=== PATIENT | male | born 1955 | race Caucasian/White ===

== ENCOUNTER 2017-07-09 17:41 | Inpatient (IN) | payer MEDICAID, SELFPAY ==
[2017-07-09] VITALS (8 sets, daily range): BP systolic 111–147; BP diastolic 68–76; PULSE 88–123; RESP 16–22; TEMP 37.7–38.7; O2SAT 94–96; BMI 42.9; BMI 29.4
--- NOTE | 2017-07-09 18:42 | EKG12_ITS ---
Test Reason : SOB Blood Pressure : / mmHG Vent. Rate : 108 BPM Atrial Rate : 108 BPM P-R Int : 168 ms QRS Dur : 096 ms QT Int : 344 ms P-R-T Axes : 056 -11 112 degrees QTc Int : [address]/T wave abnormality: consider myocardial ischemia (memo lateral) Abnormal ECG Confirmed by NEDA FERNANDES, GWENDOLYN ([id number]), graphic editor FERNANDO PASCUAL ([id number]) on 07/15/2017 3:15:39 PM Referred By: VINNY Confirmed By:GWENDOLYN RED MD
--- NOTE | 2017-07-09 18:46 | ED.VISSUMM ---
- ER Visit Summary Date of Service: 07/09/17 Chief Complaint: Fever, cough and left leg redness History of Present Illness: The patient is a 61 M borderline diabetes, hypertension, CAD with CT and cardiac stents. Patient's had bypass surgery. He states since Friday has not felt well with a fever. Cough and shortness of breath. He also notes that he has had left foot and lower leg redness swelling and discomfort. He denies any dysuria. He denies any vomiting or diarrhea. Physical Examination: Older male vital signs are stable he is a fever of 101.6. Heart rate 123 pulse ox 95% room air no signs of hypoxia. He is in no respiratory distress. H EENT exam findings members. Neck nontender no lymphadenopathy. Lungs clear to auscultation bilaterally. Dry cough. No rales or rhonchi. Heart tachycardic no murmur. Rate about 120. Abdomen soft nontender normal bowel sounds no peritoneal signs. He is moving all 4 extremities. The left foot which she has had his left great toe amputated in the past. Is red and swollen as is the entire left lower leg below the knee. Consistent with cellulitis. Tender to touch. Right lower extremity is unremarkable. Neurologically is awake and alert without focal motor deficits. Test Results: CBC shows a white count of 14,000 H&H of 13-41. No bands. Electrolytes show sodium 132 and potassium 3.1. Normal BUN and creatinine and gap. PT/INR normal. Lactic acid is slightly elevated 2.1. EKG sinus tachycardia at 108 with LVH. No acute signs of CT. Chest x-ray portable one view shows no acute abnormality read both by myself and the radiologist. Emergency Department Course and Treatment: Patient has a fever and has left lower extremity cellulitis. He will also be worked up for possible sepsis. Treatment Plan: Fluids, p.o. Tylenol, IV Zosyn for the cellulitis. P exam patient is doing well. I very spoken to the hospitalist and he will be admitted to a general medical floor for cellulitis and sepsis. Disposition: Admission Impression: Acute fever Acute left lower extremity cellulitis Acute sepsis This note was generated with Merlin dictation software. It may contain incorrect words, spelling, and punctuation that were not noted in review of the chart prior to signing ED Disposition - Plan for ED Patient: Chief Complaint: Shortness of Breath Referrals: Clement Buckner MD [Primary Care Provider] -
--- NOTE | 2017-07-09 18:49 | ED.DCSUM_ITS ---
- ER Visit Summary Date of Service: 07/09/17 Chief Complaint: Fever, cough and left leg redness History of Present Illness: The patient is a 61 M borderline diabetes, hypertension, CAD with HI and cardiac stents. Patient's had bypass surgery. He states since Friday has not felt well with a fever. Cough and shortness of breath. He also notes that he has had left foot and lower leg redness swelling and discomfort. He denies any dysuria. He denies any vomiting or diarrhea. Physical Examination: Older male vital signs are stable he is a fever of 101.6. Heart rate 123 pulse ox 95% room air no signs of hypoxia. He is in no respiratory distress. H EENT exam findings members. Neck nontender no lymphadenopathy. Lungs clear to auscultation bilaterally. Dry cough. No rales or rhonchi. Heart tachycardic no murmur. Rate about 120. Abdomen soft nontender normal bowel sounds no peritoneal signs. He is moving all 4 extremities. The left foot which she has had his left great toe amputated in the past. Is red and swollen as is the entire left lower leg below the knee. Consistent with cellulitis. Tender to touch. Right lower extremity is unremarkable. Neurologically is awake and alert without focal motor deficits. Test Results: CBC shows a white count of 14,000 H&H of 13-41. No bands. Electrolytes show sodium 132 and potassium 3.1. Normal BUN and creatinine and gap. PT/INR normal. Lactic acid is slightly elevated 2.1. EKG sinus tachycardia at 108 with LVH. No acute signs of HI. Chest x-ray portable one view shows no acute abnormality read both by myself and the radiologist. Emergency Department Course and Treatment: Patient has a fever and has left lower extremity cellulitis. He will also be worked up for possible sepsis. Treatment Plan: Fluids, p.o. Tylenol, IV Zosyn for the cellulitis. P exam patient is doing well. I very spoken to the hospitalist and he will be admitted to a general medical floor for cellulitis and sepsis. Disposition: Admission Impression: Acute fever Acute left lower extremity cellulitis Acute sepsis This note was generated with [employer] dictation software. It may contain incorrect words, spelling, and punctuation that were not noted in review of the chart prior to signing ED Disposition - Plan for ED Patient: Chief Complaint: Shortness of Breath Referrals: Clement Buckner MD [Primary Care Provider] -
[2017-07-09 19:09] LABS: International Normalized Ratio 1.1; Prothrombin Time (Protime)PT. 13.7 SECONDS (11.7-14.9)
[2017-07-09 19:10] LABS: Partial Thromboplast Time 34.6 Seconds (24.1-36.2)
[2017-07-09 19:14] LABS: Absolute Lymphocyte Count 1.19 X10^3/ul (0.83-4.51); Absolute Neutrophil Count 11.2 X10^3/uL (2.0-7.7); Basophil# 0.03 X10^3/uL; Basophil% 0.2 % (0-1); Eosinophil# 0.02 X10^3/uL; Eosinophils% 0.1 % (0-5); Hematocrit 41.8 % (40-54); Hemoglobin 13.7 g/dl (13.0-16.5); Lymphocyte # 1.19 X10^3/ul (4.0); Lymphocyte % 8.5 % (19-41); Mean Corp Hgb Conc 32.8 g/gl (32-36); Mean Corpuscular Hgb 25.3 pg (27.0-32.0); Mean Corpuscular Volume 77.3 fL (80-94); Monocyte# 1.54 X10^3/uL; Neutrophil # 11.19 X10^3/uL (2.7-7.7); Platelet Count 124 K/mm3 (150-450); RBC Distribution Width CV 17.1 % (11.6-14.6); RBC Distribution Width SD 48.4 fl (35.1-43.9); Red Blood Count 5.41 M/mm3 (4.6-6.2)
[2017-07-09] MEDS: 0.9% Normal Saline 1,000 ML 999 ML IV ×2 (19:14→20:45)
[2017-07-09 19:15] LABS: Differential Indicated SCAN CRITERIA MET; POSITIVE COUNT NO; POSITIVE DIFFERENTIAL YES; POSITIVE MORPHOLOGY YES
[2017-07-09] MEDS: Acetaminophen 500 MG Tablet 1000 MG PO (19:16)
[2017-07-09 19:24] LABS: ALB/GLOB Ratio 0.7 RATIO (0.9-2.4); AST(SGOT) 109 U/L (15-37); Alanine Aminotransfer ALT/SGPT 60 U/L (16-61); Albumin, Serum 2.9 g/dL (3.2-5.0); Alkaline Phosphatase 144 U/L (45-117); Anion Gap 9 (5-15); BUN 12 mg/dL (7-18); BUN/Creat Ratio 9.2 RATIO (10-20); Calcium,Total 8.3 mg/dL (8.5-10.1); Chloride 99 mmol/L (98-107); EST Glomerular Filtration Rate 59 mL/min (>60); Est Glom Filt Rate - Afr Amer 72 mL/min (>60); Estimated Creatinine Clearance 43.58 ml/min; Globulin 4.4 g/dL (2.2-4.2); Glucose 128 mg/dL (74-106); Potassium 3.1 mmol/L (3.5-5.1); Protein, Total 7.3 g/dL (6.4-8.2); Sodium Level 132 mmol/L (136-145)
--- NOTE | 2017-07-09 19:25 | RAD_ITS ---
XR Chest 2 Views INDICATION: SOB x 3 days, nausea 2 days ago, Left lower leg red and swollen, Hx of open heart surgery COMPARISON: February 16, 2012 TECHNIQUE: 2 views of the chest. Findings: Heart size is within normal limits. Sternotomy wires and mediastinal clips are noted. Linear opacities at the left lung base likely represents scarring. There is blunting of the left costophrenic angle, trace effusion cannot be excluded. The lungs appear otherwise clear. There is no evidence of pleural effusion on the right. RAD/Chest PA and Lateral IMPRESSION: Left basilar scarring or trace effusion. Status post CABG surgery. Right lung is clear. at 2009 Reported and signed by: Sheyla Peralta MD Electronically Signed: Sheyla Peralta MD at 20:07 EDT Tel , Service support ,
[2017-07-09 19:26] LABS: Lactic Acid 2.1 mmol/L (0.4-2.0)
--- NOTE | 2017-07-09 19:27 | ED.RN ---
LAB CALLS WITH CRITICAL RESULT, LACTIC ACID 2.1, DR. CASILLAS MADE AWARE.
[2017-07-09 19:37] LABS: Platelet Estimate SLT DEC (ADEQ); Platelet Morphology LARGE
[2017-07-09 19:38] LABS: Differential Comment SCANNED
[2017-07-09 20:21] LABS: Mucous, Urine 0 SEEN /hpf (<or=2+)
[2017-07-09 20:23] LABS: Color, Urine Yellow (Yellow); Glucose, Dipstick Normal (Normal); Ketone-Dipstick 5 mg/dl (Negative); Leukocyte Esterase-Dipstick 25 /ul (Negative); Nitrite-Dipstick Negative (Negative); Occult Blood-Urine 250 /ul (Negative); Protein-Dipstick 100 mg/dl (Negative); Specific Gravity, Urine 1.015 (1.002-1.030); Urine Clarity Sl. Cloudy (Clear); Urine Urobilinogen 8 mg/dl (Normal)
[2017-07-09 20:31] LABS: Urine Bilirubin Dipstick 1 mg/dL (Negative)
[2017-07-09 20:34] LABS: Amorphous Sediment R; Bacteria RARE /hpf (None Seen); Red Blood Cells-Urine 0-5 SEEN /hpf (0-5); Squamous Epithelial Cells - UA 0-5 SEEN /hpf (0-5); White Blood Cells 0-5 SEEN /hpf (0-5)
--- NOTE | 2017-07-09 22:22 | PCM.HP.STD ---
Problem List (1) Nausea and vomiting Status: Acute Qualifiers: Vomiting type: unspecified Vomiting Intractability: non-intractable Qualified Code(s): R11.2 - Nausea with vomiting, unspecified (2) Redness of the left leg and foot Status: Acute History of Present Illness Date of Admission: 07/09/17 Chief Complaint: Nausea, vomiting, redness of the left leg and foot The patient is a 61 year old M was seen in the emergency room at [facility] with chief complaint of nausea, vomiting, and shortness of breath accompanied by redness and swelling of his left lower leg and foot ?24 hours. Patient denied any purulent sputum production, he was positive for cough, and he stated he ran a fever of 98.9 at home today. Patient has peripheral neuropathy and does not actually have any pain in his left foot or left leg. Evaluation in the emergency room included labs which showed an elevated white blood cell count of 14,000, potassium was low at 3.1, creatinine was 1.3, glucose is 128, and temperature was 101.6. Lactic acid was elevated at 2.1. Examination of the left lower leg revealed it to be reddened from the mid left lower leg down into the foot, the foot was also swollen, there was also edema in the left lower leg noted, and there was an ulceration on the first metatarsal area of the left foot approximately the size of a quarter, its depth was unknown, there was no obvious drainage coming from the ulceration. Patient had no feeling to light touch and pain in the lower legs and feet bilaterally. Patient will be admitted to [facility] for severe sepsis, IV Zosyn will be continued (he was given a dose in the emergency room), I contacted his operations controller Dr. Duarte who will see him in consultation. MRI of the left foot will be obtained, wound nurse will need to see the patient. Patient states he was noncompliant with following up with Dr. Duarte as an outpatient, when asked why, patient stated that he felt he could heel his left foot ulcer on his own without any additional help from podiatry. Past Medical History Past Medical History (Chronic Problems): Chronic Problems Hypothyroidism (Chronic) History of hyperlipidemia (Chronic) History of gastroesophageal reflux (GERD) (Chronic) Deep venous thrombosis of upper extremity (Chronic) CAD (coronary artery disease) (Chronic) Benign essential hypertension (Chronic) Allergies colesevelam HCl [From WelChol] Allergy (Verified 07/09/17 17:43) Rash dicyclomine Allergy (Verified 07/09/17 17:43) Rash divalproex sodium [From Depakote] Allergy (Verified 07/09/17 17:43) Unknown rofecoxib [From Vioxx] Allergy (Verified 07/09/17 17:43) Rash Home Medications: Ambulatory Orders Medication Instructions Recorded Fluticasone 0.05% [Flonase Nasal 2 spray NASAL DAILY PRN 09/01/13 [place]] Folic Acid [Folic Acid] 1 mg PO BID 09/01/13 Gabapentin [Gabapentin] 900 mg PO TID 09/01/13 Levothyroxine [Synthroid] 75 mcg PO DAILY 09/01/13 Metoprolol Tartrate [Metoprolol 25 mg PO BID 09/01/13 Tartrate] Omeprazole [Omeprazole] 20 mg PO BID 09/01/13 Rosuvastatin Calcium [Crestor] 40 mg PO QHS 09/01/13 Temazepam [Temazepam] 15 mg PO PRN PRN 09/01/13 Aspirin 325 mg PO DAILY@0800 07/09/17 Baclofen [Lioresal] 1 tab PO BID PRN 07/09/17 Clopidogrel Bisulfate [Plavix] 75 mg PO DAILY 07/09/17 Surgical History: coronary bypass surgery, - - Coronary artery stent placement April 2017, amputation of the left great toe Psychiatric History: No pertinent psych hx Lives: Alone Smoking Status: Current every day smoker Tobacco Use: Cigarettes Alcohol: None Drugs: None - *Family History Maternal History Items: Diabetes Paternal History Items: Cancer - Lung cancer Review of Systems Constitutional: Reports: Fever. Denies: Anorexia, Night Sweats, Malaise, Weakness, Weight Change, Fatigue Eyes: Denies: Blurred vision, Cataracts, Conjunctivae Inflammation, Double vision, Drainage HEENT: Denies: Difficulty Hearing, Difficulty Swallowing, Dysphasia, Ear Pain, Eye Pain, Head Aches, Hearing Changes, Nasal bleeding, Nasal Congestion Cardiovascular: Reports: Edema - Edema in the left lower leg and foot ?24 hours. Denies: Chest Pain, Claudication, Chest Pressure, Chest Tightness, Orthopnea, Palpitations, Paroxysmal Noc. Dyspnea Respiratory: Reports: Shortness of Breath, Shortness of breath upon exertion. Denies: Cough, Hemoptysis, Pleuritic Pain, Sputum production Gastrointestinal: Reports: Nausea, Vomiting. Denies: Abdominal Pain, Constipation, Diarrhea, Hematemesis, Hematochezia Genitourinary: Denies: Dysuria, Frequency, Hematuria, Incontinence, Nocturia, Retention Musculoskeletal: Denies: Back Pain, Foot Pain, Hand Pain, Joint stiffness, Joint swelling, Joint Tenderness, Leg Pain Skin: Reports: Wounds - complains of a wound over the plantar surface of his left foot ?4 months. Denies: Jaundice, Pruritis, Rash Neurological: Denies: Balance problems, Blurred vision, Double vision, Change in Speech, Slurred speech, Difficulty swallowing, Focal weakness, Headaches, Incoordination Psychiatric: Denies: Anxiety, Depression, Homicidal Ideations, Suicidal Ideations Endocrine: Denies: Change in Body Habitus, Heat/ Cold Intolerance, Polyuria, Hx of Irradiation Hematologic/ Lymphatic: Denies: Adenopathy, Anemia, Petechiae, Purpura VTE Information - Inpt Only VTE Present on Admission: No VTE Mechan Device Prophylaxis: None VTE Pharm Prophylaxis ordered?: Yes Patient Problems: Active and Suspected Problems Nausea and vomiting (Acute) Redness of the left leg and foot (Acute) - Physical Exam General: Alert, Oriented x3, Cooperative, No apparent distress, Well developed, Well nourished HEENT: Atraumatic, PERRLA, EOMI, Normocephalic Oral: Moist Mucosa Neck: Supple, No JVD, Negative Carotid Bruits, No Nuchal Rigidity, Trachea Midline, Thyroid Normal Size and Texture Lungs: Clear to auscultation, Normal air movement, No rhonchi, No wheeze, No rales Cardiovascular: Regular rate, Regular Rhythm, Normal S1, Normal S2, No murmurs, No Ectopic Activity, PMI Normal, No rub noted, No Gallop Abdomen: Bowel Sounds Present, Soft, Non Tender, Non-Distended, No hernias noted Extremities: No clubbing, Capillary Refill Less than 3 Seconds, Edema - There is generalized edema of the left lower leg noted along with edema of the left foot Skin: Ulcer/ Wound - There is an open area on the patient's first metatarsal joint area approximately 2-3 cm in width, depth of the wound is unknown, Rash Present - There is redness over the patient's left lower leg and foot Neurological: Cranial nerves II-XII grossly intact, Neuro grossly intact, Coordination normal, - - Sensory exam of the lower legs and feet are decreased to light touch and pain Psych/Mental Status: Normal Affect, Appropriate, Alert and oriented to time, place, person, mood and affect Vital Signs Temp Pulse Resp BP Pulse Ox 100 F H 91 22 H 111/71 95 07/09/17 20:59 07/09/17 21:30 07/09/17 21:30 07/09/17 21:30 07/09/17 21:30 Oxygen Delivery Method Room Air Weight: 101.1 kg Body Mass Index (BMI) 29.4 Assessment/Plan Active and Suspected Problems Nausea and vomiting (Acute) Redness of the left leg and foot (Acute) #1 severe sepsis secondary to left lower leg and foot cellulitis-suspect gram-positive bacterial infection or mixed infection with gram-positive bacteria and anaerobes, patient will be admitted to [facility], he will remain on IV Zosyn, he will be seen in consultation by podiatry, he will have an MRI of his left foot, lactic acid will be repeated #2 cellulitis of the left lower leg and foot-treatment as above #3 hypokalemia-potassium replacement will be given, labs will be rechecked #4 noncompliance with medical regimen #5 peripheral neuropathy exact etiology unclear, patient does not appear to be diabetic #6 coronary artery disease with recent stent placement #7 hypertension #8 probable peripheral vascular disease - workup per podiatry #9 hyperlipidemia #10 hypothyroidism Code Visit Inpatient E&M: 21163 Init Hosp L3
[2017-07-09 22:55] LABS: Reflex Lactate? Y
[2017-07-09] MEDS: 0.9% Normal Saline 1,000 ML 100 ML IV (23:27)
[2017-07-09] MEDS: Heparin Injection (Vial) 5,000 UNIT/ML VIAL 5000 UNIT SC (23:32)
[2017-07-09] MEDS: Metoprolol Tartrate 25 MG Tablet PO (23:32)
[2017-07-09] MEDS: Atorvastatin Calcium 80 MG Tablet PO (23:32)
[2017-07-09] MEDS: Temazepam 15 MG Capsule PO (23:32)
[2017-07-09] MEDS: Gabapentin 800 MG Tablet PO (23:53)
[2017-07-10] MEDS: Piperacil/Tazobactam 3.375 GM/50 ML ML IV ×3 (05:46→21:54)
[2017-07-10] MEDS: Levothyroxine 75 MCG Tablet PO (05:46)
[2017-07-10] MEDS: Heparin Injection (Vial) 5,000 UNIT/ML VIAL 5000 UNIT SC ×3 (05:46→21:54)
[2017-07-10 05:50] VITALS: BP 128/65; PULSE 95; RESP 18; TEMP 37.8; O2SAT 95
--- NOTE | 2017-07-10 05:55 | MRI_ITS ---
STUDY: MRI LEFT FOREFOOT WITHOUT CONTRAST REASON FOR EXAM: Redness and swelling with ulcer at the first metatarsal. TECHNIQUE: Standardized fat and water weighted pulse sequences were obtained in all 3 orthogonal planes. COMPARISON: Radiographs 08/17/2014. FINDINGS: There is amputation of the great toe. There is no bone edema of the first metatarsal or sesamoids to indicate osteomyelitis. There is a focal fluid collection at the plantar/distal aspect of the first metatarsal head deep to the skin ulcer (inversion recovery sagittal images 5-9; T2 coronal series 5 images 5-7) measuring 1.9 x 2.3 x 3.0 cm (AP x transverse x length), likely an abscess. There is edema in the subcutis adipose space of the forefoot and midfoot. There is no bone edema of the second through fifth metatarsals or phalanges to indicate osteomyelitis There is atrophy with fat replacement of the intrinsic muscles of the forefoot (T1 sagittal images 10-25) consistent with peripheral neuropathy. MRI/Lower Ext/No Jt/w/o IMPRESSION: Focal fluid collection deep to the skin ulcer adjacent to the first metatarsal head, likely an abscess. No demonstrated osteomyelitis. Electronically Signed: Jose Francisco Chang MD at 10:49 EDT Tel , Service support ,
[2017-07-10 06:54] LABS: Absolute Neutrophil Count 8.2 X10^3/uL (2.0-7.7); Basophil# 0.02 X10^3/uL; Basophil% 0.2 % (0-1); Eosinophil# 0.06 X10^3/uL; Eosinophils% 0.5 % (0-5); Hematocrit 36.9 % (40-54); Hemoglobin 12.1 g/dl (13.0-16.5); Lymphocyte % 13.6 % (19-41); Mean Corp Hgb Conc 32.8 g/gl (32-36); Mean Corpuscular Hgb 25.3 pg (27.0-32.0); Mean Corpuscular Volume 77.2 fL (80-94); Mean Platelet Vol. 11.4 fl (6.2-12.0); Monocyte# 1.19 X10^3/uL; Monocyte% 10.8 % (0-10); Neutrophil # 8.22 X10^3/uL (2.7-7.7); Neutrophil % 74.7 % (47-70); Platelet Count 125 K/mm3 (150-450); RBC Distribution Width CV 17.3 % (11.6-14.6); Red Blood Count 4.78 M/mm3 (4.6-6.2)
[2017-07-10 06:55] LABS: Anion Gap 9 (5-15); BUN 9 mg/dL (7-18); BUN/Creat Ratio 8.4 RATIO (10-20); Calcium,Total 7.3 mg/dL (8.5-10.1); Chloride 107 mmol/L (98-107); Creatinine, Serum 1.07 mg/dL (0.70-1.30); EST Glomerular Filtration Rate 74 mL/min (>60); Est Glom Filt Rate - Afr Amer 90 mL/min (>60); Glucose 139 mg/dL (74-106); Potassium 3.1 mmol/L (3.5-5.1); Sodium Level 138 mmol/L (136-145)
[2017-07-10 06:57] LABS: Differential Indicated SCAN CRITERIA MET; POSITIVE COUNT NO; POSITIVE DIFFERENTIAL NO; POSITIVE MORPHOLOGY YES
[2017-07-10 07:06] LABS: Differential Comment SCANNED
[2017-07-10 07:50] VITALS: BP 124/71; PULSE 93; RESP 16; TEMP 37.7; O2SAT 95
--- NOTE | 2017-07-10 07:52 | PN_ITS ---
Patient Problems: Active and Suspected Problems Nausea and vomiting (Acute) Redness of the left leg and foot (Acute) Subjective: Patient is a 61-year-old male with a past medical history of hypothyroidism, hyperlipidemia, gastroesophageal reflux disease, deep vein thrombosis of the upper extremity, coronary artery disease with history of coronary stent placement in April 2017 and CABG, amputation of the left great toe, tobacco dependence, peripheral neuropathy and hypertension who presented to the emergency room at [facility] on 07/09/2017 complaining of nausea/ vomiting, shortness of breath and redness/swelling of his left lower leg for approximately 24 hours. Vital signs at presentation to the emergency room were temperature 101.6, pulse rate 123, blood pressure 147/76, respiratory rate of 20 and he was 95% saturated on room air. White blood cell count was elevated at 14.0 with left shift. Hemoglobin was 13.7 with an MCV of 77.3 and platelet count of 124,000. Sodium was low at 132 and the potassium was low at 3.1. BUN was 12 with a creatinine of 1.3. Random blood sugar was elevated at 128 and the lactic acid was 2.1. Follow-up lactic acid was 1.0 following hydration. AST is elevated at 109 and the ALT is 60. Alkaline phosphatase is elevated at 144. UA showed proteinuria and no evidence of urinary tract infection. Chest x -ray shows blunting of the left costophrenic angle which may be chronic secondary to prior CABG. On physical examination the left lower extremity was reddened from the leg down into the foot. There was swelling and an ulceration of the first metatarsal area of the left foot. He was admitted to the hospital with a diagnosis of severe sepsis secondary to cellulitis of the left lower extremity. He was started on IV Zosyn and Dr. Duarte was consulted to evaluate the foot ulcer. Noninvasive vascular studies done in 2015 showed triphasic waveforms except for the left dorsalis pedis that was biphasic. ROB in the digits was decreased at 0.89 on the right and 0.83 on the left. MRI of the foot has been ordered today. No plain XRAYS were done. There is a FH of DM. sodium and potassium are low at admission and he is not on a diuretic. He has been having polydipsia and polyuria recently. He attributes the numbness in his feet to the harvesting of the Vein in the LLE for CABG in 1993. He also states that he has neuropathy in his hands. PTCA in April 2017 was done at the [facility]. The ulceration on the plantar surface of the left foot over the distal first metatarsal head has been present for 4-5 months. - Physical Exam General: Alert, Oriented x3, Cooperative, No apparent distress, Well developed, Well nourished HEENT: Atraumatic, PERRLA, EOMI Oral: No Gingival or Mucosal Lesions/ Ulcerations, Dry Mucosa Neck: No Nodes, Trachea Midline Lungs: Clear to auscultation Cardiovascular: Regular rate, Regular Rhythm, Normal S1, Normal S2, No murmurs, No rub noted, No Gallop Abdomen: Bowel Sounds Present, Soft, Non Tender, Non-Distended, - - No abdominal bruits Extremities: No clubbing, No cyanosis, Capillary Refill Less than 3 Seconds, Edema - Of the LLE from the mid boyce area distally. There is erythema and increased Warmth to touch. There is a ulceration on the plantar surface of the left foot over the distal metatarsal head with heavy periwound callous formation. the great toe has been amputated. The base of the wound is dry and there is no odor and no significant DC., - Skin: No rashes, Ulcer/ Wound - Plantar surface of the left foot over the distal first metatarsal head surrounded by a large amount of callus. Wound base is dry. There is no odor and there is scant discharge. There is erythema involving the entire left foot and extending up the anterior tibial compartment in a patchy distribution. There is increased warmth to touch. He has very little sensation in his left lower extremity. Musculoskeletal: No Muscle Wasting Neurological: Cranial nerves II-XII grossly intact, - - Peripheral neuropathy in the arms and the legs - etiology? Psych/Mental Status: Normal Affect, Appropriate Vital Signs Temp Pulse Resp BP Pulse Ox 100.1 F H 95 18 128/65 H 95 07/10/17 05:50 07/10/17 05:50 07/10/17 05:50 07/10/17 05:50 07/10/17 05:50 Oxygen Delivery Method Room Air Weight: 222 lb 14.197 oz Body Mass Index (BMI) 29.4 Intake and Output for Last 24 Hours 07/08/17 07/09/17 07/10/17 23:59 23:59 23:59 Intake Total 411 / 411 845 / 845 Output Total 700 / 700 750 / 750 Balance -289 / -289 95 / 95 Laboratory Tests Past 24 Hrs 07/09/17 07/10/17 07/10/17 22:13 06:20 06:20 WBC 11.0 RBC 4.78 Hgb 12.1 L Hct 36.9 L MCV 77.2 L MCH 25.3 L MCHC 32.8 RDW 17.3 H RDW Differential 49.0 H Plt Count 125 L MPV 11.4 Immature Gran % (Auto) 0.200 Neut % (Auto) 74.7 H Lymph % (Auto) 13.6 L Hawkins % (Auto) 10.8 H Eos % (Auto) 0.5 Baso % (Auto) 0.2 Absolute Neuts (auto) 8.2 H Absolute Lymphs (auto) 1.50 Total Counted Not Reportable Differential Comment SCANNED Sodium 138 Potassium 3.1 L Chloride 107 Carbon Dioxide 22.0 Anion Gap 9 BUN 9 Creatinine 1.07 Estim Creat Clear Calc 80.90 Est GFR (MDRD) Af Amer 90 Est GFR (MDRD) Non-Af 74 BUN/Creatinine Ratio 8.4 L Glucose 139 H Lactic Acid 1.0 Calcium 7.3 L Medical Necessity - Tobacco Use Smoking Status: Current every day smoker Tobacco Use: Cigarettes Assessment/Plan Active and Suspected Problems Nausea and vomiting (Acute) Redness of the left leg and foot (Acute) Impressions 1. Infected non-healing wound on the plantar surface of the Left foot over the distal first metatarsal head - severe sepsis ruled out. 2. cellulitis of the left foot and left lower extremity 3. dehydration with polyuria, polydipsia and a FH of DM. Suspect DM 4. CAD with hx of CABG X 2 in 1993 and PTCA in April 2017 at [facility] 5. Tobacco dependence 6. Peripheral neuropathy-etiology? 7. Hyperlipidemia 8. Hypothyroidism 9. Hypertension 10. Hyponatremia with hypokalemia 11. Noncompliance with follow-up with podiatry 12. Status post left great toe amputation continue Zosyn Wound culture obtained today Await the results of the MRI ordered for today. Check a HGBA1C and order accuchecks AC and HS check a lipid panel Smoking cessation advised Dr. Duarte on consult May need to repeat ROB's of the LE's since the last test was 2 years ago supplement the potassium and check a MAG and Phos. Code Visit Inpatient E&M: 20172 Subs Hosp L2
[2017-07-10] MEDS: Acetaminophen 325 MG Tablet 650 MG PO ×2 (07:53→14:20)
[2017-07-10] MEDS: Gabapentin 800 MG Tablet PO ×2 (07:54→16:46)
[2017-07-10] MEDS: Folic Acid 1 MG Tablet PO (07:54)
[2017-07-10 08:20] LABS: Bedside Glucose 147 mg/dL (70-110)
--- NOTE | 2017-07-10 08:30 | NURSING ---
wound photo: left foot
[2017-07-10 08:40] LABS: Cholesterol 67 mg/dL (200); High Density Lipoprotein 30 mg/dL; Magnesium 2.2 mg/dL (1.6-2.6); Phosphorus 1.5 mg/dL (2.5-4.9); Triglycerides 127 mg/dL; Very Low Density Lipoprotein 25 mg/dL (5-40)
[2017-07-10 08:50] LABS: Erythrocyte Sedimentation Rate 45 mm/hr (0-20)
[2017-07-10 09:11] LABS: Hemoglobin A1c 6.7 % (4.2-6.3)
[2017-07-10 10:47] LABS: M R Staph aureus DNA By PCR Negative (Negative); Probe Check PASS; Specimen Processing Control PASS; Staph aureus DNA By PCR NEGATIVE (Negative)
[2017-07-10 10:50] VITALS: BP 111/67; PULSE 94; RESP 16; TEMP 37.4; O2SAT 92
[2017-07-10] MEDS: Pantoprazole Sodium 40 MG Tablet PO (10:50)
[2017-07-10] MEDS: Metoprolol Tartrate 25 MG Tablet PO ×2 (10:50→21:54)
[2017-07-10] MEDS: 0.9% Normal Saline 1,000 ML 100 ML IV (10:52)
[2017-07-10] MEDS: Clopidogrel Bisulfate 75 MG Tablet PO (12:38)
[2017-07-10 12:45] LABS: Bedside Glucose 147 mg/dL (70-110)
--- NOTE | 2017-07-10 12:45 | CON.PCM_ITS ---
Problem List (1) Type 2 diabetes mellitus with foot ulcer Status: Acute (2) Type 2 diabetes mellitus with foot ulcer Status: Acute Reason for Consult Date of Consultation: 07/10/17 Reason for Consultation: ulcer of left foot History of Present Illness: The patient is a 61 year old M with past medical history significant for diabetes. He was last seen by me last june 2016 for diabetic foot care. He has not seen me since. apparently, about 4 months ago, he developed blister to b/l feet. he states blister developed because he was dropped off and had to walk 3 miles. he states the blister of right foot healed but the blister of left foot became larger and failed to show any progress. He did not seek any medical attention and tried to heal this himself. he states that over the past few days, he has been feeling more redness to his left leg. he presented to hospital and was subsequently admitted to hospital. he was placed on antibiotics. He has had mri performed today. He denies any pain. he denies any n/v/f/c. He has no other complaints. Patient was seen by me last June at which time all wounds were healed. Past Medical History Past Medical History (Chronic Problems): Chronic Problems Hypothyroidism (Chronic) History of hyperlipidemia (Chronic) History of gastroesophageal reflux (GERD) (Chronic) Deep venous thrombosis of upper extremity (Chronic) CAD (coronary artery disease) (Chronic) Benign essential hypertension (Chronic) Allergies colesevelam HCl [From WelChol] Allergy (Verified 07/09/17 17:43) Rash dicyclomine Allergy (Verified 07/09/17 17:43) Rash divalproex sodium [From Depakote] Allergy (Verified 07/09/17 17:43) Unknown rofecoxib [From Vioxx] Allergy (Verified 07/09/17 17:43) Rash Home Medications: Ambulatory Orders Medication Instructions Recorded Fluticasone 0.05% [Flonase Nasal 2 spray NASAL DAILY PRN 09/01/13 [place]] Folic Acid [Folic Acid] 1 mg PO BID 09/01/13 Gabapentin [Gabapentin] 900 mg PO TID 09/01/13 Levothyroxine [Synthroid] 75 mcg PO DAILY 09/01/13 Metoprolol Tartrate [Metoprolol 25 mg PO BID 09/01/13 Tartrate] Omeprazole [Omeprazole] 20 mg PO BID 09/01/13 Rosuvastatin Calcium [Crestor] 40 mg PO QHS 09/01/13 Temazepam [Temazepam] 15 mg PO PRN PRN 09/01/13 Aspirin 325 mg PO DAILY@0800 07/09/17 Baclofen [Lioresal] 1 tab PO BID PRN 07/09/17 Clopidogrel Bisulfate [Plavix] 75 mg PO DAILY 07/09/17 Surgical History: coronary bypass surgery, - - Coronary artery stent placement April 2017, amputation of the left great toe Psychiatric History: No pertinent psych hx Lives: Alone Smoking Status: Current every day smoker Tobacco Use: Cigarettes Alcohol: None Drugs: None - *Family History Maternal History Items: Diabetes Paternal History Items: Cancer - Lung cancer Patient Problems: Active and Suspected Problems Nausea and vomiting (Acute) Redness of the left leg and foot (Acute) Type 2 diabetes mellitus with foot ulcer (Acute) Type 2 diabetes mellitus with foot ulcer (Acute) Objective: Patient is alert and orientated x 3. He does not appear in any distress vascular: DP and PT pulses are nonpalpable to left lower extremity and faintly palpable to right lower extremity. skin temperature is warm to cool. hair growth is decreased to b/l feet. there is redness outlined to left leg and appears to be improving. derm: there is full thickness ulceration plantar to left 1st metatarsal head. it measures 0.8 cm width by 1.1 cm length by 1.0 cm depth. there is no drainage expressed on clinical exam. there is no redness of foot and there is resolving redness to left leg. there is probing approximately 1.0 cm but no probe to bone. no wounds present to right foot m/s: there is amputation of left hallux mri: MRI reviewed. there is no marrow edema to suggest osteomyelitis. there is concern for possible fluid collection of left plantar ulceration concerning for abscess - Physical Exam Vital Signs Temp Pulse Resp BP Pulse Ox 99.8 F H 94 16 124/71 H 95 07/10/17 07:50 07/10/17 10:50 07/10/17 07:50 07/10/17 07:50 07/10/17 07:50 Oxygen Delivery Method Room Air Weight: 101.1 kg Body Mass Index (BMI) 29.4 Intake and Output for Last 24 Hours 07/08/17 07/09/17 07/10/17 23:59 23:59 23:59 Intake Total 411 / 411 845 / 845 Output Total 700 / 700 750 / 750 Balance -289 / -289 95 / 95 Laboratory Tests Past 24 Hrs 07/09/17 07/10/17 07/10/17 22:13 06:20 06:20 WBC 11.0 RBC 4.78 Hgb 12.1 L Hct 36.9 L MCV 77.2 L MCH 25.3 L MCHC 32.8 RDW 17.3 H RDW Differential 49.0 H Plt Count 125 L MPV 11.4 Immature Gran % (Auto) 0.200 Neut % (Auto) 74.7 H Lymph % (Auto) 13.6 L [place] % (Auto) 10.8 H Eos % (Auto) 0.5 Baso % (Auto) 0.2 Absolute Neuts (auto) 8.2 H Absolute Lymphs (auto) 1.50 Total Counted Not Reportable Differential Comment SCANNED ESR Sodium 138 Potassium 3.1 L Chloride 107 Carbon Dioxide 22.0 Anion Gap 9 BUN 9 Creatinine 1.07 Estim Creat Clear Calc 80.90 Est GFR (MDRD) Af Amer 90 Est GFR (MDRD) Non-Af 74 BUN/Creatinine Ratio 8.4 L Glucose 139 H Hemoglobin A1c Lactic Acid 1.0 Calcium 7.3 L Phosphorus Magnesium C-React Prot Ext Range Triglycerides Cholesterol LDL Cholesterol VLDL Cholesterol HDL Cholesterol S.aureus Protein A PCR MRSA (PCR) 07/10/17 07/10/17 07/10/17 06:20 06:20 06:20 WBC RBC Hgb Hct MCV MCH MCHC RDW RDW Differential Plt Count MPV Immature Gran % (Auto) Neut % (Auto) Lymph % (Auto) [place] % (Auto) Eos % (Auto) Baso % (Auto) Absolute Neuts (auto) Absolute Lymphs (auto) Total Counted Differential Comment ESR 45 H Sodium Potassium Chloride Carbon Dioxide Anion Gap BUN Creatinine Estim Creat Clear Calc Est GFR (MDRD) Af Amer Est GFR (MDRD) Non-Af BUN/Creatinine Ratio Glucose Hemoglobin A1c 6.7 H Lactic Acid Calcium Phosphorus 1.5 L Magnesium 2.2 C-React Prot Ext Range 118.00 H Triglycerides 127 Cholesterol 67 LDL Cholesterol 12 VLDL Cholesterol 25 HDL Cholesterol 30 L S.aureus Protein A PCR MRSA (PCR) 07/10/17 08:10 WBC RBC Hgb Hct MCV MCH MCHC RDW RDW Differential Plt Count MPV Immature Gran % (Auto) Neut % (Auto) Lymph % (Auto) [place] % (Auto) Eos % (Auto) Baso % (Auto) Absolute Neuts (auto) Absolute Lymphs (auto) Total Counted Differential Comment ESR Sodium Potassium Chloride Carbon Dioxide Anion Gap BUN Creatinine Estim Creat Clear Calc Est GFR (MDRD) Af Amer Est GFR (MDRD) Non-Af BUN/Creatinine Ratio Glucose Hemoglobin A1c Lactic Acid Calcium Phosphorus Magnesium C-React Prot Ext Range Triglycerides Cholesterol LDL Cholesterol VLDL Cholesterol HDL Cholesterol S.aureus Protein A PCR NEGATIVE MRSA (PCR) Negative POC Glucose 07/10/17 08:16 POC Glucose 147 H Assessment/Plan Active and Suspected Problems Nausea and vomiting (Acute) Redness of the left leg and foot (Acute) Type 2 diabetes mellitus with foot ulcer (Acute) Type 2 diabetes mellitus with foot ulcer (Acute) Patient was examined and informed of current findings. ON exam, he has full thickness ulceration of left foot. Ulceration is approximately 0.8 cm x 1.1 cm x 1.0 cm depth. there is component of cellulitis that appears to be improving with antibiotic. MRI shows no osteomyelitis but concerning for abscess. Of note, patient did have mri with retained packing so findings of possible abscess vs retained packing. discussed treating as abscess and performing I&D vs repeating mri. patient wishes to repeat mri I did inform patient that if abscess present, will need I&D. I did discuss performing I&D and bone biopsy vs performing metatarsal head resection and closure of ulceration. If I&D performed only, I do not see it possible that ulceration will be able to be closed, will likely require offloading and advanced wound care. Patient not keen on further bone resection if this can be avoided. his pulses are nonpalpable to left foot. he appears stable on antibiotic. recommend repeat mri stat for further evaluation and also recommend stat pvr. further decision pending additional studies
--- NOTE | 2017-07-10 12:56 | MRI_ITS ---
STUDY: MRI LEFT FOREFOOT WITHOUT CONTRAST REASON FOR EXAM: Evaluate for abscess after removal of packing in the wound. TECHNIQUE: Standardized fat and water weighted pulse sequences were obtained in all 3 orthogonal planes. COMPARISON: None. FINDINGS: Since the prior study earlier today there is been removal of the packing material. There is still persists a focal fluid collection with septations and peripheral wall (T2 coronal series 5 images 7-11; inversion recovery sagittal images 5-9) deep to the skin ulcer at the plantar aspect of the distal first metatarsal most consistent with an abscess. The size of the fluid collection is unchanged. MRI/Lower Ext/No Jt/w/o IMPRESSION: Persistent focal fluid collection deep to the skin ulcer at the distal aspect of the first metatarsal most suggestive of an abscess. Electronically Signed: Jose Francisco Chang MD at 14:58 EDT Tel , Service support ,
--- NOTE | 2017-07-10 13:15 | CASEMGMT ---
Social Work Assessment Personal Status: SW met with pt to complete initial assessment and to discuss discharge planning. SW introduced self and role at [facility]. Pt is alert and orientated x4. Pt states that before coming into the hospital he was living alone in a 3 story home. Pt states that he has steps to enter his home but reports being independent and able to use the steps independently. Pt states that before coming into the hospital he was independent with ADLs. Pt denied having any friends or family for support around him. Pt denied DME at home. Pt states that his PCP is Greg Simon and his preferred pharmacy is [facility]. Pt states that his plan is to return home at discharge. Pt denied additional needs or concerns at this time. 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
[2017-07-10] MEDS: 0.9% NaCl Peripheral Flush Adult/Peds IV (14:21)
[2017-07-10 16:45] VITALS: BP 129/69; PULSE 87; RESP 16; TEMP 37.6; O2SAT 96
[2017-07-10 16:55] LABS: Bedside Glucose 170 mg/dL (70-110)
[2017-07-10 21:51] VITALS: BP 128/60; PULSE 88; RESP 18; TEMP 37.3; O2SAT 94
[2017-07-10 21:54] VITALS: PULSE 88
[2017-07-10] MEDS: Temazepam 15 MG Capsule PO (21:54)
[2017-07-10] MEDS: Atorvastatin Calcium 80 MG Tablet PO (21:59)
[2017-07-10 22:11] LABS: Bedside Glucose 137 mg/dL (70-110)
[2017-07-11] VITALS (14 sets, daily range): BP systolic 103–137; BP diastolic 59–71; PULSE 18–93; RESP 18; TEMP 36.4–38; O2SAT 93–95; BMI 29.4
[2017-07-11] MEDS: 0.9% Normal Saline 1,000 ML 100 ML IV ×3 (00:08→22:49)
[2017-07-11] MEDS: Gabapentin 800 MG Tablet PO ×3 (00:11→18:15)
[2017-07-11] MEDS: Acetaminophen 325 MG Tablet 650 MG PO ×2 (03:56→22:52)
--- NOTE | 2017-07-11 05:30 | LEAS ---
Arterial Study - Arterial Study Arterial Study: Bilateral noninvasive lower extremity arterial exam at rest Right lower extremity Right PT and DP ankle-brachial indices at rest are 1.471.31 respectively with a digital index of 0.63. The right posterior tibial and dorsalis pedis Doppler waveforms are triphasic and normal. Left lower extremity. The left PT and DP ankle-brachial indices at rest are 1.2 and 1 respectively. The left posterior tibial and dorsalis pedis Doppler waveforms are triphasic. Impression: Normal bilateral lower extremity ABIs at rest. Daniel Meredith M.D., F.A.C.S.
[2017-07-11] MEDS: Piperacil/Tazobactam 3.375 GM/50 ML ML IV ×3 (06:06→22:52)
[2017-07-11] MEDS: Levothyroxine 75 MCG Tablet PO (06:06)
--- NOTE | 2017-07-11 06:39 | PCM.PROGNOTE ---
Patient Problems: Active and Suspected Problems Nausea and vomiting (Acute) Redness of the left leg and foot (Acute) Type 2 diabetes mellitus with foot ulcer (Acute) Type 2 diabetes mellitus with foot ulcer (Acute) Subjective: Day #2 Zosyn and vancomycin T-max is 100.4?F. Vital signs are stable. Blood sugars are all less than 200. All lab was personally reviewed. The hemoglobin A1c is elevated at 6.7. ESR was 45 and the CRP is 118. ABIs of the lower extremities were normal at rest. MRI of the left foot showed an abscess deep to the skin ulcer at the distal aspect of the first metatarsal. He is scheduled for surgery with Dr. Duarte today. PCR is negative for staph aureus and for MRSA. Wound culture is pending and the Gram stain shows 2+ gram-positive rods with no cells. - Physical Exam General: Alert, Cooperative, - - not very interactive...answers mostly with 1 word answers HEENT: Atraumatic Oral: Moist Mucosa Lungs: Clear to auscultation, Diminished Cardiovascular: Regular rate, Regular Rhythm, Normal S1, Normal S2, No Gallop Abdomen: Bowel Sounds Present, Soft, Non Tender, Non-Distended Extremities: No clubbing, No Calf Tenderness, Edema - LLE......did not look at the wound...he is scheduled for surgery this afternoon with Dr. Duarte. Skin: No rashes, - - the erythema of the LLE has not spread outside the border marked at admission. NOt as warm to touch today Psych/Mental Status: Appropriate, Flat Affect Vital Signs Temp Pulse Resp BP Pulse Ox 100.4 F H 93 18 129/68 H 93 07/11/17 03:51 07/11/17 03:51 07/11/17 03:51 07/11/17 03:51 07/11/17 03:51 Oxygen Delivery Method Room Air Weight: 222 lb 14.197 oz Body Mass Index (BMI) 29.4 Intake and Output for Last 24 Hours 07/09/17 07/10/17 07/11/17 23:59 23:59 23:59 Intake Total 411 / 411 2828 / 2828 194 / 194 Output Total 700 / 700 2024 / 2024 150 / 150 Balance -289 / -289 803 / 803 1796 / 1796 Microbiology Past 72 Hours 07/10/17 08:10 Gram Stain - Final Wound - Left Foot Laboratory Tests Past 24 Hrs 07/10/17 07/10/17 07/10/17 06:20 06:20 06:20 WBC 11.0 RBC 4.78 Hgb 12.1 L Hct 36.9 L MCV 77.2 L MCH 25.3 L MCHC 32.8 RDW 17.3 H RDW Differential 49.0 H Plt Count 125 L MPV 11.4 Immature Gran % (Auto) 0.200 Neut % (Auto) 74.7 H Lymph % (Auto) 13.6 L [place] % (Auto) 10.8 H Eos % (Auto) 0.5 Baso % (Auto) 0.2 Absolute Neuts (auto) 8.2 H Absolute Lymphs (auto) 1.50 Total Counted Not Reportable Differential Comment SCANNED ESR Sodium 138 Potassium 3.1 L Chloride 107 Carbon Dioxide 22.0 Anion Gap 9 BUN 9 Creatinine 1.07 Estim Creat Clear Calc 80.90 Est GFR (MDRD) Af Amer 90 Est GFR (MDRD) Non-Af 74 BUN/Creatinine Ratio 8.4 L Glucose 139 H Hemoglobin A1c 6.7 H Calcium 7.3 L Phosphorus Magnesium C-React Prot Ext Range Triglycerides Cholesterol LDL Cholesterol VLDL Cholesterol HDL Cholesterol S.aureus Protein A PCR MRSA (PCR) 07/10/17 07/10/17 07/10/17 06:20 06:20 08:10 WBC RBC Hgb Hct MCV MCH MCHC RDW RDW Differential Plt Count MPV Immature Gran % (Auto) Neut % (Auto) Lymph % (Auto) [place] % (Auto) Eos % (Auto) Baso % (Auto) Absolute Neuts (auto) Absolute Lymphs (auto) Total Counted Differential Comment ESR 45 H Sodium Potassium Chloride Carbon Dioxide Anion Gap BUN Creatinine Estim Creat Clear Calc Est GFR (MDRD) Af Amer Est GFR (MDRD) Non-Af BUN/Creatinine Ratio Glucose Hemoglobin A1c Calcium Phosphorus 1.5 L Magnesium 2.2 C-React Prot Ext Range 118.00 H Triglycerides 127 Cholesterol 67 LDL Cholesterol 12 VLDL Cholesterol 25 HDL Cholesterol 30 L S.aureus Protein A PCR NEGATIVE MRSA (PCR) Negative POC Glucose 07/10/17 07/10/17 07/10/17 21:49 16:45 12:37 POC Glucose 137 H 170 H 147 H 07/10/17 08:16 POC Glucose 147 H Medical Necessity - Tobacco Use Smoking Status: Current every day smoker Tobacco Use: Cigarettes Assessment/Plan Active and Suspected Problems Nausea and vomiting (Acute) Redness of the left leg and foot (Acute) Type 2 diabetes mellitus with foot ulcer (Acute) Type 2 diabetes mellitus with foot ulcer (Acute) Impressions 1. Infected non-healing wound on the plantar surface of the Left foot over the distal first metatarsal head - severe sepsis ruled out. 2. cellulitis of the left foot and left lower extremity with abscess deep to the ulcer 3. dehydration with polyuria, polydipsia and a FH of DM. HGBA1C is 6.7. 4. CAD with hx of CABG X 2 in 1993 and PTCA in April 2017 at [facility] 5. Tobacco dependence 6. Peripheral neuropathy-etiology? 7. Hyperlipidemia 8. Hypothyroidism 9. Hypertension 10. Hyponatremia with hypokalemia 11. Noncompliance with follow-up with podiatry 12. Status post left great toe amputation continue Anahy Will ask Dr. Duarte to send a Wound culture and a PCR for SA and MRSA when he opens the abscess today Post op will change the diet to 2200 Start MV, Vitamin C and Robert for wound healing check iron studies Code Visit Inpatient E&M: 71704 Subs Hosp L2
[2017-07-11 07:06] LABS: Bedside Glucose 95 mg/dL (70-110)
[2017-07-11 07:09] LABS: Partial Thromboplast Time 37.7 Seconds (24.1-36.2)
[2017-07-11 07:11] LABS: Absolute Lymphocyte Count 2.13 X10^3/ul (0.83-4.51); Absolute Neutrophil Count 10.2 X10^3/uL (2.0-7.7); Basophil# 0.06 X10^3/uL; Basophil% 0.4 % (0-1); Eosinophil# 0.11 X10^3/uL; Eosinophils% 0.8 % (0-5); Hematocrit 38.3 % (40-54); Hemoglobin 12.5 g/dl (13.0-16.5); Lymphocyte # 2.13 X10^3/ul (4.0); Lymphocyte % 15.4 % (19-41); Mean Corp Hgb Conc 32.6 g/gl (32-36); Mean Corpuscular Hgb 24.9 pg (27.0-32.0); Mean Corpuscular Volume 76.3 fL (80-94); Monocyte# 1.28 X10^3/uL; Monocyte% 9.3 % (0-10); Neutrophil # 10.19 X10^3/uL (2.7-7.7); Neutrophil % 73.8 % (47-70); Platelet Count 132 K/mm3 (150-450); RBC Distribution Width CV 17.4 % (11.6-14.6); RBC Distribution Width SD 48.6 fl (35.1-43.9); Red Blood Count 5.02 M/mm3 (4.6-6.2); White Blood Count 13.8 K/mm3 (4.4-11.0)
[2017-07-11 07:12] LABS: Differential Indicated SCAN CRITERIA MET; POSITIVE COUNT NO; POSITIVE DIFFERENTIAL NO; POSITIVE MORPHOLOGY YES
[2017-07-11 07:14] LABS: Anion Gap 8 (5-15); BUN 9 mg/dL (7-18); BUN/Creat Ratio 9.5 RATIO (10-20); Calcium,Total 8.2 mg/dL (8.5-10.1); Chloride 113 mmol/L (98-107); Creatinine, Serum 0.95 mg/dL (0.70-1.30); EST Glomerular Filtration Rate 85 mL/min (>60); Est Glom Filt Rate - Afr Amer 103 mL/min (>60); Estimated Creatinine Clearance 91.11 ml/min; Glucose 88 mg/dL (74-106); Magnesium 2.3 mg/dL (1.6-2.6); Phosphorus 2.2 mg/dL (2.5-4.9); Potassium 3.4 mmol/L (3.5-5.1); Sodium Level 140 mmol/L (136-145)
--- NOTE | 2017-07-11 07:30 | BON_PTH ---
PATIENT: RK MCCLURE LOC: MS3 U#:[id number] AGE/SX: 61/M ROOM: NC322 RE07/09/[address]: Dr. Char Mcguire MD : [id number] BED: 1 DIS: 07/18/2017 SPEC #: [id number] RECD: 07/14/17 07:39 STATUS: JENNY REQ #: [id number] JUAN ALBERTO: 07/11/17 07:[address]: Carlos Duarte DEPT: SURGICAL PATHOLOGY RECD BY: Bryson Ramos ENTERED: 07/14/17 11:12 SP TYPE: Bone OTHR DR: MD Dr. Clement Gilbert MD Dr. Jeffrey Wunning, DPM DO Dr. Carlos Montague, DPM Dr. Daniel Almendarez MD Tissues: A - Bone of foot, NOS B - Bone of foot, NOS C - ULCER Procedures: Decalcification bone/plaque Surgery Specimen Level IV Comments: @ Ordering doctor for DEC edited from to @ elieser TREJO at 07/14/17 152 @ Ordering doctor for SUIII edited from to @ elieser TREJO at 07/14/17 1521 @ Submitting doctor edited from to @ elieser TREJO at 07/14/17 1521 HEADER OPERATION: I & D first metatarsal, poss. head resection PRE-OP DIAGNOSIS: Type 2 diabetes mellitus with foot ulcer?left, ulceration sub left first metatarsal head, probing close to bone with abscess; cellulitis left lower extremity TISSUE SUBMITTED: A ? First metatarsal pre-lavage left foot, B - First metatarsal post-lavage left foot, C ? Diabetic foot ulcer left MICROSCOPIC DIAGNOSIS A. First metatarsal pre-lavage left foot bone, biopsy: Fragment of benign bone. No evidence of osteomyelitis. B. First metatarsal post-lavage left foot bone, biopsy: Fragment of benign bone. No evidence of osteomyelitis. C. Skin and soft tissue of left foot, biopsy: Ulceration with associated acute and chronic inflammation, granulation and abscess formation. AM:ava 07/17/17 MICROSCOPIC DESCRIPTION Slides are reviewed. GROSS DESCRIPTION A - Received in fixative is one container labeled with the patient's name and designated first left metatarsal bone. The specimen consists of an irregular fragment of bravo-white bone measuring 1 x 0.7 x 0.3 cm. The specimen is submitted in its entirety in one cassette after decalcification. B - Received in fixative is one container labeled with the patient's name and designated first left metatarsal bone posterior lavage. The specimen consists of an irregular fragment of bravo-white bone measuring 1 x 0.5 x 0.2 cm. The specimen is submitted in its entirety in one cassette after decalcification. C - Received in fixative is one container labeled with the patient's name and designated diabetic foot ulcer, left. The specimen consists of a triangular-shaped fragment of bravo skin with a center hole. The skin fragment measures 2.7 x 2 cm. The hole in the mid portion measures 1 cm in diameter and a depth of 0.5 cm. Attached to this is yellow-white fibrofatty tissue excised to a depth of 2 cm. Serial sections do not reveal mass lesions. The specimen is sectioned and totally submitted in two cassettes. / AM:ava 07/14/17 TC:2 CPT: 90742 x3, 46006 x2
[2017-07-11 07:31] LABS: Thyroid Stim Hormone (TSH) 3.82 uIU/mL (0.358-3.74)
[2017-07-11 07:49] LABS: Ferritin 246 ng/mL (26-388); Iron 27 ug/dL (65-175); Iron Binding Capacity,Total 370 ug/dL (250-450); PERCENT IRON SATURATION 7.3 % (15.0-55.0)
[2017-07-11 07:50] LABS: Immature Platelet Fraction 5.9 % (1.0-7.9); RET-HE 20.4 pg (30-35); Reticulocyte Count 0.48 % (0.5-1.5)
[2017-07-11 08:15] LABS: Platelet Estimate ADEQUATE (ADEQ); Platelet Morphology LARGE
[2017-07-11] MEDS: Folic Acid 1 MG Tablet PO (08:38)
[2017-07-11] MEDS: Ascorbic Acid 500 MG Tablet PO ×2 (08:45→18:15)
[2017-07-11] MEDS: Multivitamins,Therapeutic Tablet 1 TABLET PO (08:45)
[2017-07-11] MEDS: Pantoprazole Sodium 40 MG Tablet PO (08:46)
[2017-07-11] MEDS: Metoprolol Tartrate 25 MG Tablet PO ×2 (08:57→22:52)
--- NOTE | 2017-07-11 09:26 | PCM.CONS.GEN ---
Reason for Consult Date of Consultation: 07/11/17 Reason for Consultation: Left foot ulcer/infection; 2nd opinion consultation History of Present Illness: The patient is a 61 year old gentleman with history of diabetic, diabetic neuropathy, tobacco use, CAD, previous left hallux ulceration was seen today at request of Dr. Duarte for 2nd opinion on left foot ulceration/abscess infection. Patient had left hallux amputated several years ago by Dr. Ellis which healed. Patient follows with Dr. Duarte, but was not last seen since June 2016. Patient relates he developed an ulceration ~4 months ago on both feet, states started as blisters, right foot is healed. Patient tried treating ulceration himself but left side worsened. Now patient has deep probing ulceration with abscess sub 1st metatarsal head, with cellulitis to the left lower extremity. He is admitted, and on antibiotic therapy. He had MRIs which showed ulceration and abscess sub 1st metatarsal head, with no clear evidence of osteomyelitis. Patient's WBC was elevated at 14, but now within normal limits. His ESR and CRP are elevated. Culture is pending, so far gram stain is showing gram neg rods. He did have noninvasive lower extremity arterial study which appeared to be within normal limits at this time. He is afebrile. He denies any n/v/f/c. He has no other complaints. Patient states he is retired and lives by himself. Past Medical History Past Medical History (Chronic Problems): Chronic Problems Hypothyroidism (Chronic) History of hyperlipidemia (Chronic) History of gastroesophageal reflux (GERD) (Chronic) Deep venous thrombosis of upper extremity (Chronic) CAD (coronary artery disease) (Chronic) Benign essential hypertension (Chronic) Allergies colesevelam HCl [From WelChol] Allergy (Verified 07/09/17 17:43) Rash dicyclomine Allergy (Verified 07/09/17 17:43) Rash divalproex sodium [From Depakote] Allergy (Verified 07/09/17 17:43) Unknown rofecoxib [From Vioxx] Allergy (Verified 07/09/17 17:43) Rash Home Medications: Ambulatory Orders Medication Instructions Recorded Fluticasone 0.05% [Flonase Nasal 2 spray NASAL DAILY PRN 09/01/13 [place]] Folic Acid [Folic Acid] 1 mg PO BID 09/01/13 Gabapentin [Gabapentin] 900 mg PO TID 09/01/13 Levothyroxine [Synthroid] 75 mcg PO DAILY 09/01/13 Metoprolol Tartrate [Metoprolol 25 mg PO BID 09/01/13 Tartrate] Omeprazole [Omeprazole] 20 mg PO BID 09/01/13 Rosuvastatin Calcium [Crestor] 40 mg PO QHS 09/01/13 Temazepam [Temazepam] 15 mg PO PRN PRN 09/01/13 Aspirin 325 mg PO DAILY@0800 07/09/17 Baclofen [Lioresal] 1 tab PO BID PRN 07/09/17 Clopidogrel Bisulfate [Plavix] 75 mg PO DAILY 07/09/17 Surgical History: coronary bypass surgery, - - Coronary artery stent placement April 2017, amputation of the left great toe Psychiatric History: No pertinent psych hx Lives: Alone Smoking Status: Current every day smoker Tobacco Use: Cigarettes Alcohol: None Drugs: None - *Family History Maternal History Items: Diabetes Paternal History Items: Cancer - Lung cancer Review of Systems Constitutional: Denies: Chills, Fever, Malaise Gastrointestinal: Denies: Nausea, Vomiting Skin: Reports: Wounds Patient Problems: Active and Suspected Problems Nausea and vomiting (Acute) Redness of the left leg and foot (Acute) Type 2 diabetes mellitus with foot ulcer (Acute) Type 2 diabetes mellitus with foot ulcer (Acute) - Physical Exam General: Alert, Oriented x3, Cooperative, No apparent distress Extremities: Capillary Refill Less than 3 Seconds, No Calf Tenderness, - - Left foot s/p hallux amputation, circular ulceration is present sub 1st metatarsal head left foot which probes very close to the sesamoids and 1st metatarsal head - there is purulence present, there is cellulitis extending to the foot and the leg which is outlined in purple marker, there is no maloder, no crepitus, no necrosis seen; there are no other open ulcerations bilateral foot/ankle/leg. Right foot with no cellulitis, erythema, or drainage. Sensation is significantly decreased bilateral foot consistent with diabetic neuropathy. Motor function intact bilateral foot/ankle. There is contracture of lesser toes. Chronic pressure point sub 1st metatarsal head left foot. Noninvasive lower extermity arterial studies were reviewed and appeared to be WNL, there is no evidence of acute ischemia to the foot or ankle. CFT < 3 seconds to the toes. There is edema to the left foot, ankle and leg c/w the cellulitis. MRIs of the left foot - there is ulceration sub 1st metatarsal head w/ abscess sub 1st metatarsal head. Vital Signs Temp Pulse Resp BP Pulse Ox 97.6 F L 82 18 130/68 H 95 07/11/17 08:53 07/11/17 08:57 07/11/17 08:53 07/11/17 08:57 07/11/17 08:53 Oxygen Delivery Method Room Air Weight: 101.1 kg Body Mass Index (BMI) 29.4 Intake and Output for Last 24 Hours 07/09/17 07/10/17 07/11/17 23:59 23:59 23:59 Intake Total 411 / 411 2828 / 2828 194 / 1946 Output Total 700 / 700 2024 / 2024 150 / 150 Balance -289 / -289 803 / 803 1796 / 1796 Microbiology Past 72 Hours 07/10/17 08:10 Gram Stain - Final Wound - Left Foot Laboratory Tests Past 24 Hrs 07/10/17 07/11/17 07/11/17 08:10 06:15 06:15 WBC 13.8 H RBC 5.02 Hgb 12.5 L Hct 38.3 L MCV 76.3 L MCH 24.9 L MCHC 32.6 RDW 17.4 H RDW Differential 48.6 H Plt Count 132 L Immature Gran % (Auto) 0.300 Neut % (Auto) 73.8 H Lymph % (Auto) 15.4 L [place] % (Auto) 9.3 Eos % (Auto) 0.8 Baso % (Auto) 0.4 Absolute Neuts (auto) 10.2 H Absolute Lymphs (auto) 2.13 Total Counted Not Reportable Platelet Estimate ADEQUATE Immature Plt Fraction Plt Morphology Comment LARGE Retic Count Immature Retic Fraction Retic Hgb Equivalent APTT Sodium 140 Potassium 3.4 L Chloride 113 H Carbon Dioxide 19.0 L Anion Gap 8 BUN 9 Creatinine 0.95 Estim Creat Clear Calc 91.11 Est GFR (MDRD) Af Amer 103 Est GFR (MDRD) Non-Af 85 BUN/Creatinine Ratio 9.5 L Glucose 88 Calcium 8.2 L Phosphorus 2.2 L Magnesium 2.3 Iron TIBC Iron Saturation Ferritin TSH S.aureus Protein A PCR NEGATIVE MRSA (PCR) Negative 07/11/17 07/11/1707/11/18 06:15 06:15 06:15 WBC RBC Hgb Hct MCV MCH MCHC RDW RDW Differential Plt Count Immature Gran % (Auto) Neut % (Auto) Lymph % (Auto) [place] % (Auto) Eos % (Auto) Baso % (Auto) Absolute Neuts (auto) Absolute Lymphs (auto) Total Counted Platelet Estimate Immature Plt Fraction 5.9 Plt Morphology Comment Retic Count 0.48 L Immature Retic Fraction 6.00 Retic Hgb Equivalent 20.4 L APTT 37.7 H Sodium Potassium Chloride Carbon Dioxide Anion Gap BUN Creatinine Estim Creat Clear Calc Est GFR (MDRD) Af Amer Est GFR (MDRD) Non-Af BUN/Creatinine Ratio Glucose Calcium Phosphorus Magnesium Iron TIBC Iron Saturation Ferritin TSH 3.82 H S.aureus Protein A PCR MRSA (PCR) 07/11/17 06:15 WBC RBC Hgb Hct MCV MCH MCHC RDW RDW Differential Plt Count Immature Gran % (Auto) Neut % (Auto) Lymph % (Auto) [place] % (Auto) Eos % (Auto) Baso % (Auto) Absolute Neuts (auto) Absolute Lymphs (auto) Total Counted Platelet Estimate Immature Plt Fraction Plt Morphology Comment Retic Count Immature Retic Fraction Retic Hgb Equivalent APTT Sodium Potassium Chloride Carbon Dioxide Anion Gap BUN Creatinine Estim Creat Clear Calc Est GFR (MDRD) Af Amer Est GFR (MDRD) Non-Af BUN/Creatinine Ratio Glucose Calcium Phosphorus Magnesium Iron 27 L TIBC 370 Iron Saturation 7.3 L Ferritin 246 TSH S.aureus Protein A PCR MRSA (PCR) POC Glucose 07/11/17 07/10/17 07/10/17 06:58 21:49 16:45 POC Glucose 95 137 H 170 H 07/10/17 12:37 POC Glucose 147 H Assessment/Plan Active and Suspected Problems Nausea and vomiting (Acute) Redness of the left leg and foot (Acute) Type 2 diabetes mellitus with foot ulcer (Acute) Type 2 diabetes mellitus with foot ulcer (Acute) Ulceration sub left 1st metatarsal head probing close to bone with abscess Previous left hallux amputation Cellulitis left lower extremity Diabetes with peripheral neuropathy Tobacco use Examined patient, reviewed diagnostic data, MRI imaging, culture (pending) and labs; reviewed findings with patient. Patient is on antibiotic therapy, and also noted patient has good arterial flow to foot given results of noninvasive lower extremity arterial study. Agree with Dr. Duaret regarding the options. Discussed with patient all of treatment options in great detail. Reviewed the possible benefits vs risks, goals and expectations of each option. Given the findings and patient's past medical history agree with Dr. Duarte and patient expressed to me he would like to proceed with incision and drainage w/ 1st metatarsal head resection (which would be sent as bone biopsy) with intra-op cultures. Discussed with patient the importance of adherence post operatively, as well as the need for regular podiatric foot care moving forward; this would include diabetic shoes and inserts. Also reviewed with patient the importance of proper blood sugar control as well as tobacco cessation to optimize healing and foot/ankle health to help prevent further foot/ankle problems, ulcerations, infections; patient understands he is ultimately at risk for further limb loss in future. This was discussed with the patient in great detail, all of the patient's questions were answered. I discussed with Dr. Duarte, and Dr. Duarte will continue to follow and manage patient from podiatric standpoint at this time. Thank you for consultation, and please contact me if needed.
--- NOTE | 2017-07-11 11:09 | NURSING ---
Dr Roberts in to see patient earlier this am for a second opinion. According to the progress notes, Dr Roberts agrees with Dr Duarte and patient will be going to surgery later this afternoon. will leave dressing in place.
[2017-07-11 12:05] LABS: Bedside Glucose 134 mg/dL (70-110)
--- NOTE | 2017-07-11 13:29 | NURSING ---
REPORT CALLED TO AC
--- NOTE | 2017-07-11 15:24 | PCM.PN.SRG ---
Patient Problems: Active and Suspected Problems Nausea and vomiting (Acute) Redness of the left leg and foot (Acute) Type 2 diabetes mellitus with foot ulcer (Acute) Type 2 diabetes mellitus with foot ulcer (Acute) Subjective: Patient seen at bedside with no new complaints. patient denies n/v/f/c. patient is npo for anticipated surgery. he has seen dr balbuena who agrees with incision and drainage with 1st metatarsal head resection. Objective: patient alert and orientated x 3. he does not appear in any distress left foot with redness along the dorsal 1st ray. there is redness extending to his lower leg. there is full thickness ulceration now with purulent drainage. there is significant nonviable tissue to both dorsal and plantar distal stump of left first ray. mri consistent with abscess. no marrow edema to suggest om. - Physical Exam Vital Signs Temp Pulse Resp BP Pulse Ox 98.1 F 82 18 137/71 H 93 07/11/17 13:12 07/11/17 13:12 07/11/17 13:12 07/11/17 13:12 07/11/17 13:12 Oxygen Delivery Method Room Air Weight: 101.1 kg Body Mass Index (BMI) 29.4 Intake and Output for Last 24 Hours 07/09/17 07/10/17 07/11/17 23:59 23:59 23:59 Intake Total 411 / 411 2828 / 2828 2970 / 2970 Output Total 700 / 700 2025 / 202 500 / 500 Balance -289 / -289 803 / 803 2470 / 2470 Microbiology Past 72 Hours 07/10/17 08:10 Gram Stain - Final Wound - Left Foot Wound Culture - Preliminary Laboratory Tests Past 24 Hrs 07/11/17 07/11/17 07/11/17 06:15 06:15 06:15 WBC 13.8 H RBC 5.02 Hgb 12.5 L Hct 38.3 L MCV 76.3 L MCH 24.9 L MCHC 32.6 RDW 17.4 H RDW Differential 48.6 H Plt Count 132 L Immature Gran % (Auto) 0.300 Neut % (Auto) 73.8 H Lymph % (Auto) 15.4 L [place] % (Auto) 9.3 Eos % (Auto) 0.8 Baso % (Auto) 0.4 Absolute Neuts (auto) 10.2 H Absolute Lymphs (auto) 2.13 Total Counted Not Reportable Platelet Estimate ADEQUATE Immature Plt Fraction Plt Morphology Comment LARGE Retic Count Immature Retic Fraction Retic Hgb Equivalent APTT 37.7 H Sodium 140 Potassium 3.4 L Chloride 113 H Carbon Dioxide 19.0 L Anion Gap 8 BUN 9 Creatinine 0.95 Estim Creat Clear Calc 91.11 Est GFR (MDRD) Af Amer 103 Est GFR (MDRD) Non-Af 85 BUN/Creatinine Ratio 9.5 L Glucose 88 Calcium 8.2 L Phosphorus 2.2 L Magnesium 2.3 Iron TIBC Iron Saturation Ferritin TSH 07/11/17 07/11/17 07/11/17 06:15 06:15 06:15 WBC RBC Hgb Hct MCV MCH MCHC RDW RDW Differential Plt Count Immature Gran % (Auto) Neut % (Auto) Lymph % (Auto) [place] % (Auto) Eos % (Auto) Baso % (Auto) Absolute Neuts (auto) Absolute Lymphs (auto) Total Counted Platelet Estimate Immature Plt Fraction 5.9 Plt Morphology Comment Retic Count 0.48 L Immature Retic Fraction 6.00 Retic Hgb Equivalent 20.4 L APTT Sodium Potassium Chloride Carbon Dioxide Anion Gap BUN Creatinine Estim Creat Clear Calc Est GFR (MDRD) Af Amer Est GFR (MDRD) Non-Af BUN/Creatinine Ratio Glucose Calcium Phosphorus Magnesium Iron 27 L TIBC 370 Iron Saturation 7.3 L Ferritin 246 TSH 3.82 H POC Glucose 07/11/17 07/11/17 07/10/17 11:59 06:58 21:49 POC Glucose 134 H 95 137 H 07/10/17 16:45 POC Glucose 170 H Medical Necessity - Tobacco Use Smoking Status: Current every day smoker Tobacco Use: Cigarettes Assessment/Plan Active and Suspected Problems Nausea and vomiting (Acute) Redness of the left leg and foot (Acute) Type 2 diabetes mellitus with foot ulcer (Acute) Type 2 diabetes mellitus with foot ulcer (Acute) Patient was examined and informed of current findings He is now agreeable to first ray amputation with incision and drainage. He does have pus on exam today so given this finding, I do plan on staging this amputation and leaving open thru weekend and performing wound closure in coming days. I will send bone for pathology and micro. I will also obtain wound culture and will send for MRSA, SA and PCR. the most complicating aspect of this case is the integrity of this skin both dorsally and plantarly. I have informed patient that I will try to perform this to eliminate need for wound vac following procedure but there is significant risk that this may be necessary. He understands risk of this procedure not limited to infection, pain, swelling, bleeding, hematoma, transfer lesions following metatarsal head resection, further foot amputation, need for wound vac, need for advanced wound care, loss of foot, loss of leg, loss of life. patient understands following procedure, he will need to stay off his foot. any walking to his foot can risk complications. he consents to proceed.
[2017-07-11 16:55] LABS: Bedside Glucose 95 mg/dL (70-110)
--- NOTE | 2017-07-11 17:11 | RAD_ITS ---
XR Foot Min 3 Views INDICATION: post op, lt leg and foot cellulitis, sepsis COMPARISON: MRI from the prior day TECHNIQUE: 3 views of the left foot FINDINGS: The first metatarsal head has been removed. Overlying soft tissue swelling and air inclusions are noted compatible with recent surgery. No evidence of dislocation or foreign body. RAD/Foot min 3 Views IMPRESSION: Postoperative changes from removal of the left first metatarsal head with overlying soft tissue swelling and small air inclusions, presumably postoperative. at 2044 Reported and signed by: Sheyla Peralta MD Electronically Signed: Sheyla Peralta MD at 20:42 EDT Tel , Service support ,
--- NOTE | 2017-07-11 17:43 | PCM.IMDPSTOP ---
Problem List (1) Type 2 diabetes mellitus with foot ulcer Status: Acute (2) Type 2 diabetes mellitus with foot ulcer Status: Acute Immediate Post-Op Note Date of Procedure: 07/11/17 Primary Surgeon/Physician: Carlos Duarte DPM academic program specialist: Carlos Duarte Pre-Operative Diagnosis: diabetic foot infection with abscess, left foot Post-Operative Diagnosis: diabetic foot infection with abscess Surgery/Procedure Performed:: incision and drainage of left foot with first ray resection Description of Surgical Findings:: + purulent drainage at periphery of ulceration + nonviable tissue consistent with diabetic foot infection Estimated Blood Loss: 80 ml Specimen's removed: 1st metatarsal for pathology and micro (pre and post lavage was obtained). wound cultures for mrsa, sa and psr. tissue culture of infected ulceration for pathology Type of Anesthesia:: Local MAC - Admit VTE Documentation VTE Present on Admission: No VTE Pharm Prophylaxis ordered?: Yes
--- NOTE | 2017-07-11 18:04 | OP.PN_ITS ---
Problem List (1) Type 2 diabetes mellitus with foot ulcer Status: Acute (2) Type 2 diabetes mellitus with foot ulcer Status: Acute Immediate Post-Op Note Date of Procedure: 07/11/17 Primary Surgeon/Physician: Carlos Duarte DPM fuselage framer: Carlos Duarte Pre-Operative Diagnosis: diabetic foot infection with abscess, left foot Post-Operative Diagnosis: diabetic foot infection with abscess Surgery/Procedure Performed:: incision and drainage of left foot with first ray resection Description of Surgical Findings:: + purulent drainage at periphery of ulceration + nonviable tissue consistent with diabetic foot infection Estimated Blood Loss: 80 ml Specimen's removed: 1st metatarsal for pathology and micro (pre and post lavage was obtained). wound cultures for mrsa, sa and psr. tissue culture of infected ulceration for pathology Type of Anesthesia:: Local MAC - Admit VTE Documentation VTE Present on Admission: No VTE Pharm Prophylaxis ordered?: Yes
[2017-07-11 18:16] LABS: Bedside Glucose 86 mg/dL (70-110)
[2017-07-11 18:26] LABS: M R Staph aureus DNA By PCR Negative (Negative); Probe Check PASS; Staph aureus DNA By PCR NEGATIVE (Negative)
--- NOTE | 2017-07-11 18:27 | SUR.PHASEI ---
PACU discharge summary heart rate should read 78, not 18. The 18 is a typo and the computer system is down, not allowing an edit of the PACU discharge summary.
[2017-07-11] MEDS: Heparin Injection (Vial) 5,000 UNIT/ML VIAL 5000 UNIT SC (22:49)
[2017-07-11] MEDS: Atorvastatin Calcium 80 MG Tablet PO (22:50)
[2017-07-11] MEDS: Temazepam 15 MG Capsule PO (22:52)
[2017-07-11] MEDS: Baclofen 10 MG Tablet PO (22:55)
[2017-07-11 23:11] LABS: Bedside Glucose 113 mg/dL (70-110)
[2017-07-12] VITALS (7 sets, daily range): BP systolic 107–141; BP diastolic 51–72; PULSE 67–82; RESP 14–18; TEMP 36.8–37.2; O2SAT 93–97
[2017-07-12] MEDS: Heparin Injection (Vial) 5,000 UNIT/ML VIAL 5000 UNIT SC ×3 (07:01→21:53)
[2017-07-12] MEDS: Levothyroxine 75 MCG Tablet PO (07:02)
[2017-07-12] MEDS: Piperacil/Tazobactam 3.375 GM/50 ML ML IV ×3 (07:02→21:54)
--- NOTE | 2017-07-12 07:11 | PN_ITS ---
Patient Problems: Active and Suspected Problems Nausea and vomiting (Acute) Redness of the left leg and foot (Acute) Type 2 diabetes mellitus with foot ulcer (Acute) Type 2 diabetes mellitus with foot ulcer (Acute) Subjective: Postoperative day #1 Day #3 antibiotics - Zosyn Tmax the past 24 hours is 100.4?F. Vital signs are stable. He is 93-95% saturated on room air. PCR of the wound DC sent from Surgery negative for SA and MRSA Iron panel showed a low serum iron at 27 with a TIBC of 370 and a ferritin of 246. Since ferritin is a acute phase reactant this may be falsely normal Wound culture from 07/08 is growing mixed gram-positive and gram-negative organisms. 1 of the gram positives has been identified as group B strep. The Gram stain from the bone has no white blood cells and no organisms. Hemoccult stool is negative. No complaints today. - Physical Exam General: Alert, Oriented x3, Cooperative, No apparent distress HEENT: PERRLA, EOMI Oral: Moist Mucosa Neck: Supple Lungs: Clear to auscultation, Diminished Cardiovascular: Regular rate, Regular Rhythm, Normal S1, Normal S2, No rub noted , No Gallop Abdomen: Bowel Sounds Present, Soft, Non Tender, Non-Distended, - - no diarrhea Skin: - - erythema of the LLE is fading and the warmth to touch is much improved. The incision L foot is open...there is some darkish discoloration medial first ray at the distal end.....bruise? or necrotic......no odor Neurological: Cranial nerves II-XII grossly intact, Neuro grossly intact Vital Signs Temp Pulse Resp BP Pulse Ox 98.8 F 67 18 107/51 L 93 07/12/17 01:53 07/12/17 01:53 07/12/17 01:53 07/12/17 01:53 07/12/17 01:53 Oxygen Delivery Method Room Air Weight: 222 lb 14.197 oz Body Mass Index (BMI) 29.4 Finger Stick Blood Glucose 95 Intake and Output for Last 24 Hours 07/10/17 07/11/17 07/12/17 23:59 23:59 23:59 Intake Total 2828 / 2828 3570 / 3570 1260.1 / 1260.1 Output Total 2024 / 2024 500 / 500 700 / 700 Balance 803 / 803 3070 / 3070 560.1 / 560.1 Microbiology Past 72 Hours 07/10/17 08:10 Gram Stain - Final Wound - Left Foot Wound Culture - Preliminary Laboratory Tests Past 24 Hrs 07/11/17 07/11/17 07/11/17 06:15 06:15 06:15 WBC 13.8 H RBC 5.02 Hgb 12.5 L Hct 38.3 L MCV 76.3 L MCH 24.9 L MCHC 32.6 RDW 17.4 H RDW Differential 48.6 H Plt Count 132 L Immature Gran % (Auto) 0.300 Neut % (Auto) 73.8 H Lymph % (Auto) 15.4 L [place] % (Auto) 9.3 Eos % (Auto) 0.8 Baso % (Auto) 0.4 Absolute Neuts (auto) 10.2 H Absolute Lymphs (auto) 2.13 Total Counted Not Reportable Platelet Estimate ADEQUATE Immature Plt Fraction Plt Morphology Comment LARGE Retic Count Immature Retic Fraction Retic Hgb Equivalent APTT 37.7 H Sodium 140 Potassium 3.4 L Chloride 113 H Carbon Dioxide 19.0 L Anion Gap 8 BUN 9 Creatinine 0.95 Estim Creat Clear Calc 91.11 Est GFR (MDRD) Af Amer 103 Est GFR (MDRD) Non-Af 85 BUN/Creatinine Ratio 9.5 L Glucose 88 Calcium 8.2 L Phosphorus 2.2 L Magnesium 2.3 Iron TIBC Iron Saturation Ferritin TSH S.aureus Protein A PCR MRSA (PCR) 07/11/17 07/11/17 07/11/17 06:15 06:15 06:15 WBC RBC Hgb Hct MCV MCH MCHC RDW RDW Differential Plt Count Immature Gran % (Auto) Neut % (Auto) Lymph % (Auto) [place] % (Auto) Eos % (Auto) Baso % (Auto) Absolute Neuts (auto) Absolute Lymphs (auto) Total Counted Platelet Estimate Immature Plt Fraction 5.9 Plt Morphology Comment Retic Count 0.48 L Immature Retic Fraction 6.00 Retic Hgb Equivalent 20.4 L APTT Sodium Potassium Chloride Carbon Dioxide Anion Gap BUN Creatinine Estim Creat Clear Calc Est GFR (MDRD) Af Amer Est GFR (MDRD) Non-Af BUN/Creatinine Ratio Glucose Calcium Phosphorus Magnesium Iron 27 L TIBC 370 Iron Saturation 7.3 L Ferritin 246 TSH 3.82 H S.aureus Protein A PCR MRSA (PCR) 07/11/17 16:54 WBC RBC Hgb Hct MCV MCH MCHC RDW RDW Differential Plt Count Immature Gran % (Auto) Neut % (Auto) Lymph % (Auto) [place] % (Auto) Eos % (Auto) Baso % (Auto) Absolute Neuts (auto) Absolute Lymphs (auto) Total Counted Platelet Estimate Immature Plt Fraction Plt Morphology Comment Retic Count Immature Retic Fraction Retic Hgb Equivalent APTT Sodium Potassium Chloride Carbon Dioxide Anion Gap BUN Creatinine Estim Creat Clear Calc Est GFR (MDRD) Af Amer Est GFR (MDRD) Non-Af BUN/Creatinine Ratio Glucose Calcium Phosphorus Magnesium Iron TIBC Iron Saturation Ferritin TSH S.aureus Protein A PCR NEGATIVE MRSA (PCR) Negative POC Glucose 07/11/17 07/11/17 07/11/17 22:48 17:59 16:49 POC Glucose 113 H 86 95 07/11/17 07/11/17 11:59 06:58 POC Glucose 134 H 95 Medical Necessity - Tobacco Use Smoking Status: Current every day smoker Tobacco Use: Cigarettes Assessment/Plan Active and Suspected Problems Nausea and vomiting (Acute) Redness of the left leg and foot (Acute) Type 2 diabetes mellitus with foot ulcer (Acute) Type 2 diabetes mellitus with foot ulcer (Acute) Impressions 1. Infected non-healing wound on the plantar surface of the Left foot over the distal first metatarsal head - severe sepsis ruled out. 2. cellulitis of the left foot and left lower extremity with abscess deep to the ulcer 3. dehydration with polyuria, polydipsia and a FH of DM. HGBA1C is 6.7. 4. CAD with hx of CABG X 2 in 1993 and PTCA in April 2017 at [facility] 5. Tobacco dependence 6. Peripheral neuropathy-etiology? 7. Hyperlipidemia 8. Hypothyroidism 9. Hypertension 10. Hyponatremia with hypokalemia 11. Noncompliance with follow-up with podiatry 12. Status post left great toe amputation continue Zosyn start an iron supplement DC the accuchecks....none greater than 200 carb controlled diet Restart Aspirin 81 mg daily - recent PTCA/DANNY Code Visit Inpatient E&M: 82173 Subs Hosp L2
[2017-07-12 07:16] LABS: Bedside Glucose 105 mg/dL (70-110)
[2017-07-12 07:49] LABS: Absolute Neutrophil Count 7.2 X10^3/uL (2.0-7.7); Basophil# 0.07 X10^3/uL; Basophil% 0.7 % (0-1); Eosinophil# 0.21 X10^3/uL; Eosinophils% 2.1 % (0-5); Hematocrit 31.7 % (40-54); Hemoglobin 10.8 g/dl (13.0-16.5); Lymphocyte % 16.6 % (19-41); Mean Corp Hgb Conc 34.1 g/gl (32-36); Mean Corpuscular Hgb 25.9 pg (27.0-32.0); Mean Platelet Vol. 11.6 fl (6.2-12.0); Monocyte# 0.98 X10^3/uL; Monocyte% 9.6 % (0-10); Neutrophil # 7.22 X10^3/uL (2.7-7.7); Neutrophil % 70.6 % (47-70); Platelet Count 173 K/mm3 (150-450); RBC Distribution Width CV 17.8 % (11.6-14.6); RBC Distribution Width SD 47.8 fl (35.1-43.9); Red Blood Count 4.17 M/mm3 (4.6-6.2); White Blood Count 10.2 K/mm3 (4.4-11.0)
[2017-07-12 07:50] LABS: POSITIVE COUNT NO; POSITIVE DIFFERENTIAL NO; POSITIVE MORPHOLOGY NO
[2017-07-12] MEDS: Ascorbic Acid 500 MG Tablet PO ×2 (08:13→16:44)
[2017-07-12] MEDS: Folic Acid 1 MG Tablet PO (08:13)
[2017-07-12] MEDS: Multivitamins,Therapeutic Tablet 1 TABLET PO (08:13)
[2017-07-12] MEDS: 0.9% Normal Saline 1,000 ML 100 ML IV ×2 (08:13→17:42)
[2017-07-12] MEDS: Metoprolol Tartrate 25 MG Tablet PO ×2 (08:13→21:54)
[2017-07-12] MEDS: Clopidogrel Bisulfate 75 MG Tablet PO (08:14)
[2017-07-12] MEDS: Pantoprazole Sodium 40 MG Tablet PO (08:14)
[2017-07-12] MEDS: Gabapentin 800 MG Tablet PO ×3 (08:16→16:44)
[2017-07-12 08:24] LABS: Anion Gap 7 (5-15); BUN 13 mg/dL (7-18); BUN/Creat Ratio 16.6 RATIO (10-20); Calcium,Total 8.2 mg/dL (8.5-10.1); Chloride 111 mmol/L (98-107); Creatinine, Serum 0.78 mg/dL (0.70-1.30); EST Glomerular Filtration Rate 106 mL/min (>60); Est Glom Filt Rate - Afr Amer 129 mL/min (>60); Estimated Creatinine Clearance 110.97 ml/min; Glucose 94 mg/dL (74-106); Magnesium 2.2 mg/dL (1.6-2.6); Phosphorus 2.1 mg/dL (2.5-4.9); Potassium 3.4 mmol/L (3.5-5.1); Sodium Level 140 mmol/L (136-145)
--- NOTE | 2017-07-12 09:30 | PCM.PN.SRG ---
Patient Problems: Active and Suspected Problems Nausea and vomiting (Acute) Redness of the left leg and foot (Acute) Type 2 diabetes mellitus with foot ulcer (Acute) Type 2 diabetes mellitus with foot ulcer (Acute) Subjective: Patient seen at bedside this morning. offers no complaints. denies n/v/f/c. no pain to left foot Objective: patient is alert and orientated x 3. he does not appear in any distress left foot with surgical incision packed open. there is no active bleeding. there is no purulence to left foot. incision appears very minimally darkened but has good cft and warmth is noted to incision. again, no purulence is noted. good healthy granular tissue is noted in base of wound. no local signs of infection. redness of foot and leg has resolved. - Physical Exam Vital Signs Temp Pulse Resp BP Pulse Ox 98.4 F 77 16 132/72 H 93 07/12/17 08:08 07/12/17 08:13 07/12/17 08:08 07/12/17 08:08 07/12/17 08:08 Oxygen Delivery Method Room Air Weight: 101.1 kg Body Mass Index (BMI) 29.4 Finger Stick Blood Glucose 95 Intake and Output for Last 24 Hours 07/10/17 07/11/17 07/12/17 23:59 23:59 23:59 Intake Total 2828 / 2828 3570 / 3570 2045.3 / 2045.3 Output Total 2024 / 2024 500 / 500 1125 / 1125 Balance 803 / 803 3070 / 3070 920.3 / 920.3 Microbiology Past 72 Hours 07/10/17 08:10 Gram Stain - Final Wound - Left Foot Wound Culture - Preliminary Laboratory Tests Past 24 Hrs 07/11/17 07/12/17 07/12/17 16:54 07:35 07:35 WBC 10.2 RBC 4.17 L Hgb 10.8 L Hct 31.7 L MCV 76.0 L MCH 25.9 L MCHC 34.1 RDW 17.8 H RDW Differential 47.8 H Plt Count 173 MPV 11.6 Immature Gran % (Auto) 0.400 Neut % (Auto) 70.6 H Lymph % (Auto) 16.6 L [place] % (Auto) 9.6 Eos % (Auto) 2.1 Baso % (Auto) 0.7 Absolute Neuts (auto) 7.2 Absolute Lymphs (auto) 1.70 Total Counted Not Reportable Sodium 140 Potassium 3.4 L Chloride 111 H Carbon Dioxide 22.0 Anion Gap 7 BUN 13 Creatinine 0.78 Estim Creat Clear Calc 110.97 Est GFR (MDRD) Af Amer 129 Est GFR (MDRD) Non-Af 106 BUN/Creatinine Ratio 16.6 Glucose 94 Calcium 8.2 L Phosphorus 2.1 L Magnesium 2.2 S.aureus Protein A PCR NEGATIVE MRSA (PCR) Negative POC Glucose 07/12/17 07/11/17 07/11/17 06:58 22:48 17:59 POC Glucose 105 113 H 86 07/11/17 07/11/17 16:49 11:59 POC Glucose 95 134 H Medical Necessity - Tobacco Use Smoking Status: Current every day smoker Tobacco Use: Cigarettes Assessment/Plan Active and Suspected Problems Nausea and vomiting (Acute) Redness of the left leg and foot (Acute) Type 2 diabetes mellitus with foot ulcer (Acute) Type 2 diabetes mellitus with foot ulcer (Acute) patient is one day s/p incision and drainage of left foot and first ray resection. post-op dressing changed today. packing removed and new packing applied. wound was irrigated with 1000 cc of normal saline in sterile fashion. sterile dressing was applied consisting of packing, nonadherent guaze to foot and ankle to prevent skin irritation and abd and lightly applied sherry and philip. the left foot and ankle was well padded prior to any dressing. will plan for repeat irrigation of wound tomorrow and friday. possible closure once cultures finalize. hemoglobin appears stable and no active bleeding on exam skin is warm to touch and cft is brisk. there is minimally darkened area of skin. will watch this closely. patient does have pvr that suggests ability to heal. will watch this closely. recommend infectious disease consultation to assist in antibiotic choice at discharge recommend case management consult for snf placement at discharge plan for delayed closure likely friday or friday.
--- NOTE | 2017-07-12 09:39 | PCM.OPRPT ---
Problem List (1) Type 2 diabetes mellitus with foot ulcer Status: Acute (2) Type 2 diabetes mellitus with foot ulcer Status: Acute Report of Operation Date of Procedure: 07/11/17 Pre-Operative Diagnosis: diabetic foot infection with abscess, left foot Post-Operative Diagnosis: diabetic foot infection with abscess Surgery/Procedure Performed:: incision and drainage of left foot with first ray resection Description of Surgical Findings:: Patient is a 61 year old male with history of diabetes. He reports developing a blister to b/l foot approximately 4 months ago. The blister to right foot went on to successful healing. The blister to his left foot failed to heal and progressively became larger. Despite the fact the ulceration was not healing, he failed to present to any provider for medical attention. He presented to [facility] on Friday evening with cellulitis of left foot and leg. MRI was performed of left foot that suggested abscess of left foot ulceration. MRI did not show any evidence of osteomyelitis. ON clinical exam, there is full thickness ulceration to plantar aspect of left 1st metatarsal head. The ulceration presents with mild purulence and yudy-wound hyperkeratosis and fibrotic slough. I discussed the clinical and mri findings. I suggested options for patient. I have informed patient that given the ulceration with purulence, the nonviable soft-tissue surrounding this ulceration, the direct extension of this ulceration to underlying bone, I have proposed incision and drainage with first metatarsal head resection. I have suggested packing open for a few days and performing bedside irrigation until intra-op cultures finalize and then taking patient for delayed closure. I have informed patient that given the appearance of skin around this ulceration and both plantarly and dorsally, while it is possible this procedure can result in closure of wound, it is possible that the skin is severely compromised that advanced wound care not limited to wound vac at closure may be necessary. I have discussed risks of this procedure not limited to infection, pain, swelling, bleeding, hematoma, transfer lesions to lesser metatarsal, need for more proximal amputation, need for transmetatarsal amputation, need for bka. Patient has had pvr that suggests adequate perfusion to heal. He is a smoker and certainly this can delay healing. He has demonstrated noncompliance in past so certainly this makes risk of slower healing. He has been informed that following procedure, he will need to be nwb and elevate foot. Any walking or increased swelling can result in complications. All risks and benefits were discussed. Alternative options were discussed. A 2nd opinion with Dr. Roberts was performed who also agrees in proposed procedure. Patient consents to incision and drainage with metatarsal head resection. Patient was transferred from pre-op holding area to operating room and placed in operating room table in supine position. Sign in was performed. Patient was placed under mac anesthesia. The left foot was prepped in sterile fashion. Local anesthesia was obtained with 9 cc of 1% lidocaine plain. Timeout was performed making note of procedure and personal involved. Attention was directed to left foot. There is full thickness ulceration to plantar left 1s tmetatarsal head that has mild purulent drainage. Yudy-wound tissue is nonviable with fibrotic slough and hyperkeratotic tissue. A linear incision of dorsal medial 1st ray stump was performed. Incision thru deep tissue was performed. No deep purulence noted, only purulence was noted along the plantar 1st metatarsal ulceration. Inspection of plantar ulceration from both plantar skin and deep subcutaneous tissue revealed significant nonviable tissue and slough. There was extensive undermining of this ulceration. I determined that this tissue was nonviable and prone to necrosis and infection so this ulceration was excised and the ulceration will be sent for pathology. Dissection was carried to level of 1st metatarsal and plantar sesamoids. The 1st metatarsal head was found to be very softened. Using a sagittal saw, the 1st metatarsal head was excised with bone resection proximal medial to distal lateral and beveled to prevent plantar prominence. The sesamoids were removed. Specimen was collected of the first metatarsal head and sent for pathology and micro. Micro was sent for mrsa, pcr and sa. A sterile wound culture was also obtained and sent for sa, pcr and mrsa. All nonvital tissue was debrided. Hemostasis was achieved. No further purulence noted. Pulse lavage was performed with 4000 cc of normal saline. Clean instruments were exchanged. I had new gloves placed. A clean culture of the remaining first metatarsal was performed and sent for pathology and micro. The wound was then irrigated one last time. [place] was placed to aide in post-op hemostasis. Plain packing was placed in wound. Retention stitches was placed intermittently with wound packed open. Postop dressing was applied consisting of betadine adaptic, 4x4 guaze, sherry and philip. Patient was transferred to pacu in stable condition. Will consult infectious disease to aide in antibiotic selection at discharge. Will perform daily irrigation and packing of wound. Will plan for definitive closure early next week. I have suggested to family snf placement to help with post-op nwb. Patient transferred to pacu in stable condition. All counts correct. I was present and performed the entire case. No available residents to help with procedure. Type of Anesthesia:: Local MAC Specimen's removed: 1st metatarsal for pathology and micro (pre and post lavage was obtained). wound cultures for mrsa, sa and psr. tissue culture of infected ulceration for pathology Estimated Blood Loss (mL): 80 ml
[2017-07-12 11:21] LABS: Bedside Glucose 159 mg/dL (70-110)
[2017-07-12] MEDS: Acetaminophen 325 MG Tablet 650 MG PO (14:08)
[2017-07-12 16:06] LABS: Bedside Glucose 160 mg/dL (70-110)
[2017-07-12] MEDS: Aspirin 81 MG TAB.CHEW PO (17:41)
[2017-07-12] MEDS: Atorvastatin Calcium 80 MG Tablet PO (22:01)
[2017-07-12] MEDS: Temazepam 15 MG Capsule PO (22:01)
[2017-07-12 22:11] LABS: Bedside Glucose 142 mg/dL (70-110)
[2017-07-13] VITALS (7 sets, daily range): BP systolic 128–145; BP diastolic 58–75; PULSE 63–83; RESP 15–18; TEMP 36.4–37.4; O2SAT 95–99
[2017-07-13] MEDS: Acetaminophen 325 MG Tablet 650 MG PO ×3 (03:43→23:21)
[2017-07-13] MEDS: 0.9% Normal Saline 1,000 ML 100 ML IV ×2 (03:44→14:21)
[2017-07-13] MEDS: Piperacil/Tazobactam 3.375 GM/50 ML ML IV ×3 (05:42→23:03)
[2017-07-13] MEDS: Heparin Injection (Vial) 5,000 UNIT/ML VIAL 5000 UNIT SC ×3 (05:42→23:04)
[2017-07-13] MEDS: Levothyroxine 75 MCG Tablet PO (05:42)
[2017-07-13 06:50] LABS: Bedside Glucose 104 mg/dL (70-110)
--- NOTE | 2017-07-13 07:14 | PCM.PROGNOTE ---
Patient Problems: Active and Suspected Problems Nausea and vomiting (Acute) Redness of the left leg and foot (Acute) Type 2 diabetes mellitus with foot ulcer (Acute) Type 2 diabetes mellitus with foot ulcer (Acute) Subjective: Patient is a 61-year-old male with a past medical history of hypothyroidism, hyperlipidemia, gastroesophageal reflux disease, deep vein thrombosis of the upper extremity, coronary artery disease with history of coronary stent placement in April 2017 and CABG, amputation of the left great toe, tobacco dependence, peripheral neuropathy, hypertension and newly diagnosed DM II with a HGBA1C of 6.7 who was admitted to the hospital with cellulitis of the LLE and a non-healing ulceration on the plantar surface of the Left foot over the distal first metatarsal head. MRI showed an abscess deep to the ulceration and he was taken to surgery on 07/[address] Duarte. The PCR was negative for MRSA/SA. Postoperative day #2. Day #4 antibiotics-Zosyn He is afebrile. Vital signs are stable. He is 96-97% saturated on room air. Blood sugars are well controlled on diet alone Wound culture from 07/10/2017 is positive for pansensitive E. coli, Enterobacter cloaca(sensitive to everything but Ancef), group B strep and corynebacterium. The wound cultures from surgery on the have no growth no complaints Objective: - Physical Exam General: Alert, Oriented x3, Cooperative, No apparent distress HEENT: PERRLA, EOMI Oral: Moist Mucosa Neck: Supple Lungs: Clear to auscultation, Diminished Cardiovascular: Regular rate, Regular Rhythm, Normal S1, Normal S2, No rub noted, No Gallop Abdomen: Bowel Sounds Present, Soft, Non Tender, Non-Distended, - - no diarrhea Skin: - - erythema of the LLE is fading and the warmth to touch is much improved. See Dr. Duarte's dictation for description of the wound today Neurological: Cranial nerves II-XII grossly intact, Neuro grossly intact - Physical Exam Vital Signs Temp Pulse Resp BP Pulse Ox 99.1 F 71 15 140/73 H 96 07/13/17 03:45 07/13/17 03:45 07/13/17 03:45 07/13/17 03:45 07/13/17 03:45 Oxygen Delivery Method Room Air Weight: 222 lb 14.197 oz Body Mass Index (BMI) 29.4 Finger Stick Blood Glucose 95 Intake and Output for Last 24 Hours 07/11/17 07/12/17 07/13/17 23:59 23:59 23:59 Intake Total 3570 / 3570 4245.3 / 4245.3 1401.9 / 1401.9 Output Total 500 / 500 2850 / 2850 1565 / 1565 Balance 3070 / 3070 1395.3 / 1395.3 -163.1 / -163.1 Microbiology Past 72 Hours 07/11/17 16:54 Gram Stain - Final Bone - Toe Wound Culture - Preliminary No growth-Final to follow 07/11/17 16:54 Gram Stain - Final Bone - Toe Wound Culture - Preliminary No growth-Final to follow 07/12/17 10:15 Stool Occult Blood (JORDY) - Final Stool 07/10/17 08:10 Gram Stain - Final Wound - Left Foot Wound Culture - Preliminary Gram negative nuha Gram negative nuha#2 Streptococcus agalactiae (B) Gram positive organism Laboratory Tests Past 24 Hrs 07/12/17 07/12/17 07:35 07:35 WBC 10.2 RBC 4.17 L Hgb 10.8 L Hct 31.7 L MCV 76.0 L MCH 25.9 L MCHC 34.1 RDW 17.8 H RDW Differential 47.8 H Plt Count 173 MPV 11.6 Immature Gran % (Auto) 0.400 Neut % (Auto) 70.6 H Lymph % (Auto) 16.6 L [place] % (Auto) 9.6 Eos % (Auto) 2.1 Baso % (Auto) 0.7 Absolute Neuts (auto) 7.2 Absolute Lymphs (auto) 1.70 Total Counted Not Reportable Sodium 140 Potassium 3.4 L Chloride 111 H Carbon Dioxide 22.0 Anion Gap 7 BUN 13 Creatinine 0.78 Estim Creat Clear Calc 110.97 Est GFR (MDRD) Af Amer 129 Est GFR (MDRD) Non-Af 106 BUN/Creatinine Ratio 16.6 Glucose 94 Calcium 8.2 L Phosphorus 2.1 L Magnesium 2.2 POC Glucose 07/13/17 07/12/17 07/12/17 06:46 21:49 15:58 POC Glucose 104 142 H 160 H 07/12/17 07/12/17 11:03 06:58 POC Glucose 159 H 105 Medical Necessity - Tobacco Use Smoking Status: Current every day smoker Tobacco Use: Cigarettes Assessment/Plan Active and Suspected Problems Nausea and vomiting (Acute) Redness of the left leg and foot (Acute) Type 2 diabetes mellitus with foot ulcer (Acute) Type 2 diabetes mellitus with foot ulcer (Acute) Impressions 1. Infected non-healing wound on the plantar surface of the Left foot over the distal first metatarsal head - severe sepsis ruled out. 2. cellulitis of the left foot and left lower extremity with abscess deep to the ulcer 3. dehydration with polyuria, polydipsia and a FH of DM. HGBA1C is 6.7. 4. CAD with hx of CABG X 2 in 1993 and PTCA in April 2017 at [facility] 5. Tobacco dependence 6. Peripheral neuropathy-etiology? 7. Hyperlipidemia 8. Hypothyroidism 9. Hypertension 10. Hyponatremia with hypokalemia 11. Noncompliance with follow-up with podiatry 12. Status post left great toe amputation change the antibiotic to Levaquin and add Flagyl for anaerobic coverage until the final wound cultures from surgery are back Dr. Duarte has consulted Dr. Erickson MALDONADO the accuchecks - well controlled on diet alone Dr. Duarte plans on closing the wound on Friday Code Visit Inpatient E&M: 53606 Subs Hosp L2
[2017-07-13] MEDS: Clopidogrel Bisulfate 75 MG Tablet PO (08:17)
[2017-07-13] MEDS: Metoprolol Tartrate 25 MG Tablet PO ×2 (08:17→23:04)
[2017-07-13] MEDS: Ascorbic Acid 500 MG Tablet PO ×2 (08:17→17:35)
[2017-07-13] MEDS: Multivitamins,Therapeutic Tablet 1 TABLET PO (08:17)
[2017-07-13] MEDS: Pantoprazole Sodium 40 MG Tablet PO (08:17)
[2017-07-13] MEDS: Gabapentin 800 MG Tablet PO ×3 (08:17→17:35)
[2017-07-13] MEDS: Ferrous Sulfate 325 MG Tablet PO (08:17)
[2017-07-13] MEDS: Folic Acid 1 MG Tablet PO (08:18)
[2017-07-13] MEDS: Aspirin 81 MG TAB.CHEW PO (08:19)
[2017-07-13 11:56] LABS: Bedside Glucose 110 mg/dL (70-110)
--- NOTE | 2017-07-13 12:10 | PN.SURG_ITS ---
Patient Problems: Active and Suspected Problems Nausea and vomiting (Acute) Redness of the left leg and foot (Acute) Type 2 diabetes mellitus with foot ulcer (Acute) Type 2 diabetes mellitus with foot ulcer (Acute) Subjective: patient seen at bedside this morning with no new complaints. he states pain is controlled. he remains nwb to his left foot. He is tolerating antibiotic nicely. Objective: Patient is alert and orientated x 3. He does not appear in any distress. left foot with dressing clean and dry and intact with no strike through bleeding. surgical dressing removed. skin is warm and cft is <5 seconds. there is no duskyness of incision. there is no purulence or active bleeding. redness of foot and ankle has resolved. subcutaneous tissue appears mostly granular. there is moderate hyperkeratotic tissue along plantar medial incision that was debrided with forceps and scissor. following removal of hyperkeratotic tissue, there is thin epithelial tissue. no local signs of infection. manipulation of wound does reveal potential for skin closure free of tension. no other sores notes to left foot. ROM of left foot and ankle does not show any evidence of equinus. specifically , with passive rom of left ankle, patient able to get beyond 90 degrees - Physical Exam Vital Signs Temp Pulse Resp BP Pulse Ox 97.6 F L 70 16 134/75 H 98 07/13/17 11:26 07/13/17 11:26 07/13/17 11:26 07/13/17 11:26 07/13/17 11:26 Oxygen Delivery Method Room Air Weight: 101.1 kg Body Mass Index (BMI) 29.4 Finger Stick Blood Glucose 95 Intake and Output for Last 24 Hours 07/11/17 07/12/17 07/13/17 23:59 23:59 23:59 Intake Total 3570 / 3570 4245.3 / 4245.3 2714.9 / 2714.9 Output Total 500 / 500 2850 / 2850 2565 / 2565 Balance 3070 / 3070 1395.3 / 1395.3 149.9 / 149.9 Microbiology Past 72 Hours 07/10/17 08:10 Gram Stain - Final Wound - Left Foot Wound Culture - Final Escherichia coli Enterobacter cloacae complex Streptococcus agalactiae (B) Corynebacterium amycolatum/xer 07/11/17 16:54 Gram Stain - Final Bone - Toe Wound Culture - Preliminary No growth-Final to follow 07/11/17 16:54 Gram Stain - Final Bone - Toe Wound Culture - Preliminary No growth-Final to follow 07/12/17 10:15 Stool Occult Blood (JORDY) - Final Stool POC Glucose 07/13/17 07/12/17 07/12/17 06:46 21:49 15:58 POC Glucose 104 142 H 160 H Medical Necessity - Tobacco Use Smoking Status: Current every day smoker Tobacco Use: Cigarettes Assessment/Plan Active and Suspected Problems Nausea and vomiting (Acute) Redness of the left leg and foot (Acute) Type 2 diabetes mellitus with foot ulcer (Acute) Type 2 diabetes mellitus with foot ulcer (Acute) Patient was examined and informed of current findings. On exam, patient left foot does appear stable. there is no drainage or purulence and redness has resolved. skin edges of plantar medial incision was hyperkeratotic and this was debrided today with scissors and forceps. following debridement, there is a very thin layer of epithelial tissue. I have had long discussion with patient regarding the appearance of this foot. currently, there does appear to be potential to close this wound. I will plan on closing this wound, possibly Friday or Friday pending intra-op cultures. I had discussion with patient that certainly, the skin viability is very critical in ability to close this wound. if the skin is viable, I think closure is possible. if skin is not viable, skin closure may be difficult and require either wound vac assisted closure vs transmetatarsal amputation. Patient does not wish to proceed with transmetatarsal amputation. He wants to try and salvage this foot if possible. today, wound was irrigated with 1000 cc of normal saline. wound was packed with plain packing. betadine was applied to wound. The right foot was dressed with adaptic, 4x4 guaze, sherry and lightly applied philip. the ankle and foot was well padded to prevent any other sores from developing. patient on antibiotic and cultures thus far show appropriate antibiotic with zosyn. will consult infectious disease. Will plan for closure on friday or friday. patient understands that he is at high risk of delayed healing, need for wound vac or further amputation. will have case management arrange for discharge to rehab once discharge is determined. will continue to follow
[2017-07-13 15:51] LABS: Bedside Glucose 87 mg/dL (70-110)
[2017-07-13] MEDS: Temazepam 15 MG Capsule PO (23:04)
[2017-07-13] MEDS: Atorvastatin Calcium 80 MG Tablet PO (23:04)
[2017-07-13 23:36] LABS: Bedside Glucose 113 mg/dL (70-110)
[2017-07-14] VITALS (8 sets, daily range): BP systolic 109–144; BP diastolic 62–84; PULSE 66–80; RESP 18; TEMP 36.6–36.8; O2SAT 96–98
[2017-07-14] MEDS: 0.9% Normal Saline 1,000 ML 100 ML IV ×2 (00:23→09:29)
[2017-07-14] MEDS: Heparin Injection (Vial) 5,000 UNIT/ML VIAL 5000 UNIT SC ×3 (06:11→21:36)
[2017-07-14] MEDS: Piperacil/Tazobactam 3.375 GM/50 ML ML IV (06:11)
[2017-07-14] MEDS: Levothyroxine 75 MCG Tablet PO (06:11)
--- NOTE | 2017-07-14 08:10 | PN_ITS ---
Patient Problems: Active and Suspected Problems Nausea and vomiting (Acute) Redness of the left leg and foot (Acute) Type 2 diabetes mellitus with foot ulcer (Acute) Type 2 diabetes mellitus with foot ulcer (Acute) Subjective: Patient was seen and examined. No acute events overnight. Denies any fever or chills. Vitals/I&O's: Vital Signs Temp Pulse Resp BP Pulse Ox 98.3 F 67 18 109/62 97 07/14/17 03:28 07/14/17 03:28 07/14/17 03:28 07/14/17 03:28 07/14/17 03:28 Oxygen Delivery Method Room Air Weight: 101.1 kg Body Mass Index (BMI) 29.4 Finger Stick Blood Glucose 95 Intake and Output for Last 24 Hours 07/12/17 07/13/17 07/14/17 23:59 23:59 23:59 Intake Total 4245.3 / 4245.3 3920.9 / 3920.9 2368 / 2368 Output Total 2850 / 2850 3415 / 3415 Balance 1395.3 / 1395.3 505.9 / 505.9 2368 / 2368 General: Alert, Oriented x3, Cooperative, No apparent distress HEENT: Atraumatic, PERRLA, EOMI, Normocephalic Oral: Moist Mucosa Neck: Supple Lungs: Clear to auscultation, Normal air movement Cardiovascular: Regular rate, Regular Rhythm, Normal S1, Normal S2, No murmurs Abdomen: Bowel Sounds Present, Soft, Non Tender, Non-Distended, No Hepato- splenomegaly Extremities: No edema Skin: No rashes, No breakdown Musculoskeletal: No Tenderness to Palpation of Joints or Extremities Lymphatic: No Cervical, Supraclavicular, or Inguinal Adenopathy Neurological: Cranial nerves II-XII grossly intact Psych/Mental Status: Normal Affect, Appropriate Microbiology Past 72 Hours 07/10/17 08:10 Wound - Left Foot Gram Stain - Final 07/10/17 08:10 Wound - Left Foot Wound Culture - Final Escherichia coli Enterobacter cloacae complex Streptococcus agalactiae (B) Corynebacterium amycolatum/xer 07/11/17 16:54 Bone - Toe Gram Stain - Final 07/11/17 16:54 Bone - Toe Wound Culture - Preliminary No growth-Final to follow 07/11/17 16:54 Bone - Toe Gram Stain - Final 07/11/17 16:54 Bone - Toe Wound Culture - Preliminary No growth-Final to follow 07/12/17 10:15 Stool Stool Occult Blood (JORDY) - Final Laboratory Results 07/13/17 11:49: POC Glucose 110 07/13/17 15:44: POC Glucose 87 07/13/17 23:26: POC Glucose 113 H Current Medications Acetaminophen (Tylenol) 650 mg PO Q6H PRN PRN PRN Reason: PAIN Last Admin: 07/13/17 23:21 Dose: 650 mg [facility]orbic [facility]itamin C) [facility] Last Admin: 07/13/17 17:35 Dose: 500 mg Aspirin (Aspirin, Baby) 81 mg PO DAILY@0800 [facility] Last Admin: 07/13/17 08:19 Dose: 81 mg Atorvastatin Calcium (Lipitor) 80 mg PO QHS [facility] Last Admin: 07/13/17 23:04 Dose: 80 mg Baclofen (Lioresal) 10 mg PO BID PRN PRN PRN Reason: MUSCLE SPASM Last Admin: 07/11/17 22:55 Dose: 10 mg Clopidogrel Bisulfate (Plavix) 75 mg PO DAILY [facility] Last Admin: 07/13/17 08:17 Dose: 75 mg Ferrous Sulfate (Ferrous Sulfate) 325 mg PO DAILY@0800 [facility] Last Admin: 07/13/17 08:17 Dose: 325 mg Folic Acid (Folic Acid) [facility] Last Admin: 07/13/17 08:18 Dose: 1 mg Gabapentin (Neurontin) 800 mg PO TIDCM [facility] Last Admin: 07/13/17 17:35 Dose: 800 mg Heparin Sodium (Porcine) (Heparin Na) 5,000 unit SC Q8 [facility] Last Admin: 07/14/17 06:11 Dose: 5,000 units Sodium Chloride () 1,000 mls @ 100 mls/hr IV .Q10H [facility] Last Admin: 07/14/17 00:23 Dose: 100 mls/hr Piperacillin Sod/Tazobactam Sod (Zosyn) 3.375 gm in 50 mls @ 12.5 mls/hr IV Q8 [facility] Last Admin: 07/14/17 06:11 Dose: 12.5 mls/hr Levothyroxine Sodium (Synthroid) 75 mcg PO DAILY@0600 [facility] Last Admin: 07/14/17 06:11 Dose: 75 mcg Metoprolol Tartrate (Lopressor (Beta Alisha)) 25 mg PO BID [facility] Last Admin: 07/13/17 23:04 Dose: 25 mg Multivitamins (Multivitamin) [facility] Last Admin: 07/13/17 08:17 Dose: 1 tablet Nitroglycerin (Nitrostat) 0.4 mg SUBLINGUAL Q5M PRN PRN Reason: Chest Pain Nutritional Formula (Robert - [place] Flavor) [facility] Last Admin: 07/13/17 17:35 Dose: 1 packet Ondansetron HCl (Zofran) 4 mg IV Q6H PRN PRN PRN Reason: NAUSEA Pantoprazole Sodium (Protonix) 40 mg PO DAILY [facility] Last Admin: 07/13/17 08:17 Dose: 40 mg Sodium Chloride () 5 - 30 ml IV UD PRN PRN Reason: SALINE FLUSH Last Admin: 07/10/17 14:21 Dose: 10 ml Temazepam (Restoril) 15 mg PO QHS [facility] Last Admin: 07/13/17 23:04 Dose: 15 mg Zinc Sulfate (Zinc Sulfate) 220 mg PO DAILY [facility] Last Admin: 07/13/17 08:18 Dose: 220 mg Medical Necessity - Tobacco Use Smoking Status: Current every day smoker Tobacco Use: Cigarettes Assessment/Plan Active and Suspected Problems Nausea and vomiting (Acute) Redness of the left leg and foot (Acute) Type 2 diabetes mellitus with foot ulcer (Acute) Type 2 diabetes mellitus with foot ulcer (Acute) 61-year-old male with multiple cold morbidities admitted with left lower extremity cellulitis, status post I & D, first ray resection on 07/11/17, 1. Left lower leg, foot cellulitis, infected nonhealing wound, cultures growing E. coli, Enterobacter, Streptococcus, status post I & D, first ray resection on 07/11/17, no osteomyelitis on MRI, repeat debridement planned tomorrow with possible wound VAC for assisted closure, remains on IV Cipro, Flagyl, vancomycin , infectious disease following, will up on recommendations by podiatry 2. PAD, no intervention is planned, on aspirin, statin 3. Type 2 DM, diet controlled, blood sugars are stable 4. CAD s/p CABG, on aspirin, statin 5. Hypertension, controlled, on metoprolol 6. Hypothyroidism, on levothyroxine 7. Peripheral neuropathy, likely diabetic related, on gabapentin 8. DVT PPx -Heparin subcu Code Visit Inpatient E&M: 79681 Subs Hosp L2
[2017-07-14] MEDS: Folic Acid 1 MG Tablet PO (09:28)
[2017-07-14] MEDS: Multivitamins,Therapeutic Tablet 1 TABLET PO (09:28)
[2017-07-14] MEDS: Ferrous Sulfate 325 MG Tablet PO (09:28)
[2017-07-14] MEDS: Gabapentin 800 MG Tablet PO ×3 (09:28→18:21)
[2017-07-14] MEDS: Aspirin 81 MG TAB.CHEW PO (09:28)
[2017-07-14] MEDS: Ascorbic Acid 500 MG Tablet PO ×2 (09:29→18:21)
[2017-07-14] MEDS: Metoprolol Tartrate 25 MG Tablet PO ×2 (09:29→21:36)
[2017-07-14] MEDS: Clopidogrel Bisulfate 75 MG Tablet PO (09:30)
[2017-07-14] MEDS: Pantoprazole Sodium 40 MG Tablet PO (09:30)
[2017-07-14] MEDS: Ciprofloxacin 400 MG/200 ML BAG 200 MG IV ×2 (10:56→21:34)
--- NOTE | 2017-07-14 11:10 | PCM.RX.CS ---
Consult Pharmacy has been consulted to manage selected antiobiotic: Vancomycin Type of Consult: New start Suspected Infection: Skin/Soft tissue Prior Doses of Antibiotics Received/Current Regimen: NONE Labs: Sodium 140 mmol/L (136-145) 07/12/17 07:35 Potassium 3.4 mmol/L (3.5-5.1) L 07/12/17 07:35 Chloride 111 mmol/L (98-107) H 07/12/17 07:35 Carbon Dioxide 22.0 mmol/L (21.0-32.0) 07/12/17 07:35 Anion Gap 7 (5-15) 07/12/17 07:35 BUN 13 mg/dL (7-18) 07/12/17 07:35 Creatinine 0.78 mg/dL (0.70-1.30) 07/12/17 07:35 Est GFR (MDRD) Af Amer 129 mL/min (>60) 07/12/17 07:35 Est GFR (MDRD) Non-Af 106 mL/min (>60) 07/12/17 07:35 BUN/Creatinine Ratio 16.6 RATIO (10-20) 07/12/17 07:35 Glucose 94 mg/dL (74-106) 07/12/17 07:35 Microbiology: Microbiology 07/10/17 08:10 Wound - Left Foot Gram Stain - Final 07/10/17 08:10 Wound - Left Foot Wound Culture - Final Escherichia coli Enterobacter cloacae complex Streptococcus agalactiae (B) Corynebacterium amycolatum/xer 07/11/17 16:54 Bone - Toe Gram Stain - Final 07/11/17 16:54 Bone - Toe Wound Culture - Preliminary No growth-Final to follow 07/11/17 16:54 Bone - Toe Gram Stain - Final 07/11/17 16:54 Bone - Toe Wound Culture - Preliminary No growth-Final to follow 07/12/17 10:15 Stool Stool Occult Blood (JORDY) - Final Estimated Creatinine Clearance: 110ML/MIN Goal Trough: 10-15 mcg/mL Pharmacy Plan for Drug Dosing: Pharmacy Service will continue to monitor and adjust dosing as required. Pharmacy to manage vancomycin for the treatment of cellulitis/ wound infection. The patient is post-op amputation of an infected toe, and cultures are negative for MRSA to date. No evidence of osteomyelitis per imaging studies available at the time of consultation. Will target a trough of 10-15 and obtain a trough prior to the 4th dose of vancomycin. PLAN/RECOMMENDATIONS 1. Vancomycin 2g IV Q12hrs to start 07/14/17 @1200 2. Vancomycin trough scheduled for 07/15/17 @2330 (Prior to 4th scheduled dose of vancomycin) 3. Pharmacy will continue to monitor daily and make changes as appropriate.
--- NOTE | 2017-07-14 12:16 | NURSING ---
WOUND NURSE AT BEDSIDE ASSISTING DR GUZMAN WITH DRESSING CHANGE
--- NOTE | 2017-07-14 12:24 | PCM.PN.SRG ---
Patient Problems: Active and Suspected Problems Nausea and vomiting (Acute) Redness of the left leg and foot (Acute) Type 2 diabetes mellitus with foot ulcer (Acute) Type 2 diabetes mellitus with foot ulcer (Acute) Subjective: patient was seen at bedside this morning. he denies n/v/f/c. he has no pain to his left foot. he is tolerating antibiotic nicely. Objective: Patient is alert and orientated x 3. he does not appear in any distress vascular: DP and PT pulses are palpable to left foot. skin temperature is warm. there is no erythema present to left foot. the plantar medial skin of left foot is necrotic. the dorsal lateral incision is necrotic. remaining skin is viable. derm: the left foot surgical wound is packed open. the deep subcutaneous tissue appears granular without pus. the plantar medial skin of left foot is necrotic. the dorsal lateral incision is necrotic. no local signs of infection Musculoskeletal: Passive and active rom of left ankle is full, beyond 90 degrees. no evidence of equinus is noted. mild swelling present to left foot. no deep calf pain present. - Physical Exam Vital Signs Temp Pulse Resp BP Pulse Ox 98.3 F 80 18 144/84 H 96 07/14/17 09:30 07/14/17 12:00 07/14/17 09:30 07/14/17 09:30 07/14/17 09:30 Oxygen Delivery Method Room Air Weight: 101.1 kg Body Mass Index (BMI) 29.4 Finger Stick Blood Glucose 95 Intake and Output for Last 24 Hours 07/12/17 07/13/17 07/14/17 23:59 23:59 23:59 Intake Total 4245.3 / 4245.3 3920.9 / 3920.9 3334 / 3334 Output Total 2850 / 2850 3415 / 3415 600 / 600 Balance 1395.3 / 1395.3 505.9 / 505.9 2734 / 2734 Microbiology Past 72 Hours 07/11/17 16:54 Gram Stain - Final Bone - Toe Wound Culture - Preliminary No growth-Final to follow Anaerobic Culture - Final No anaerobic bacteria isolated. 07/10/17 08:10 Gram Stain - Final Wound - Left Foot Wound Culture - Final Escherichia coli Enterobacter cloacae complex Streptococcus agalactiae (B) Corynebacterium amycolatum/xer 07/11/17 16:54 Gram Stain - Final Bone - Toe Wound Culture - Preliminary No growth-Final to follow 07/12/17 10:15 Stool Occult Blood (JORDY) - Final Stool POC Glucose 07/13/17 07/13/17 23:26 15:44 POC Glucose 113 H 87 Medical Necessity - Tobacco Use Smoking Status: Current every day smoker Tobacco Use: Cigarettes Assessment/Plan Active and Suspected Problems Nausea and vomiting (Acute) Redness of the left leg and foot (Acute) Type 2 diabetes mellitus with foot ulcer (Acute) Type 2 diabetes mellitus with foot ulcer (Acute) Patient was examined and informed of current findings. I evaluated left foot today. left medial incision is now turning necrotic as is the dorsal incision. the remaining tissue appears granular. reviewed pvr with Dr. jeovanny Meredith. pvr and waveforms appear triphasic so per discussion with Dr. Meredith, there is little that can be done from a vascular stand point. I have discussed the appearance of skin with patient. it appears nonviable and I do not foresee the ability to close this wound fully without possibly performing transmetatarsal amputation and even from that perspective, I am still uncertain if that would be able to close this deficit. Patient is not interested in transmetatarsal amputation. I did discuss transmetatarsal amputation and he is not interested. I would recommend repeat debridement and will proceed with this tomorrow. I did inform patient that he will likely require wound vac for assisted closure. He was informed that this could take several months to fullly heal. He understands this. would probably place wound vac on Friday for anticipated bleeding following surgery. I did discuss transmetatarsal amputation with patient and he is not interested in this. He is however interested in bka as he does have issues with that ankle. he states that he would try to salvage this foot first and if that does not work, he may consider bka. continue with antibiotics per id.
--- NOTE | 2017-07-14 12:26 | PCM.HP.ID ---
Problem List (1) Type 2 diabetes mellitus with foot ulcer Status: Acute Reason for Consult: foot abscess Consulted by: Dr. Duarte History of Present Illness: The patient is a 61 year old M with DM neuropathy who presented 07/09 with several weeks of progressive L foot ulceration, swelling, drainage. Sx started with small blister. No trauma, no animal bites/scratches. Sx quickly progressed in the few days prior to coming in with some chills and redness extending up to mid-[place]. Came to ED, temp up to 101.6, started on iv abx, taken to OR by Dr. Duarte. Feeling better, no more fever. Full ROS performed and neg except as noted above. - Medical History Past Medical History (Chronic Problems): Chronic Problems Hypothyroidism (Chronic) History of hyperlipidemia (Chronic) History of gastroesophageal reflux (GERD) (Chronic) Deep venous thrombosis of upper extremity (Chronic) CAD (coronary artery disease) (Chronic) Benign essential hypertension (Chronic) Allergies/Adverse Reactions: Allergies colesevelam HCl [From WelChol] Allergy (Verified 07/09/17 17:43) Rash dicyclomine Allergy (Verified 07/09/17 17:43) Rash divalproex sodium [From Depakote] Allergy (Verified 07/09/17 17:43) Unknown rofecoxib [From Vioxx] Allergy (Verified 07/09/17 17:43) Rash Home Medications: Ambulatory Orders Medication Instructions Recorded Fluticasone 0.05% [Flonase Nasal 2 spray NASAL DAILY PRN 09/01/13 [place]] Folic Acid [Folic Acid] 1 mg PO BID 09/01/13 Gabapentin [Gabapentin] 900 mg PO TID 09/01/13 Levothyroxine [Synthroid] 75 mcg PO DAILY 09/01/13 Metoprolol Tartrate [Metoprolol 25 mg PO BID 09/01/13 Tartrate] Omeprazole [Omeprazole] 20 mg PO BID 09/01/13 Rosuvastatin Calcium [Crestor] 40 mg PO QHS 09/01/13 Temazepam [Temazepam] 15 mg PO PRN PRN 09/01/13 Aspirin 325 mg PO DAILY@0800 07/09/17 Baclofen [Lioresal] 1 tab PO BID PRN 07/09/17 Clopidogrel Bisulfate [Plavix] 75 mg PO DAILY 07/09/17 - Social History Tobacco Use: cigarettes Vital Signs Temp Pulse Resp BP Pulse Ox 98.3 F 80 18 144/84 H 96 07/14/17 09:30 07/14/17 12:00 07/14/17 09:30 07/14/17 09:30 07/14/17 09:30 Oxygen Delivery Method Room Air Weight: 101.1 kg Body Mass Index (BMI) 29.4 Finger Stick Blood Glucose 95 Microbiology Past 72 Hours 07/11/17 16:54 Gram Stain - Final Bone - Toe Wound Culture - Preliminary No growth-Final to follow Anaerobic Culture - Final No anaerobic bacteria isolated. 07/10/17 08:10 Gram Stain - Final Wound - Left Foot Wound Culture - Final Escherichia coli Enterobacter cloacae complex Streptococcus agalactiae (B) Corynebacterium amycolatum/xer 07/11/17 16:54 Gram Stain - Final Bone - Toe Wound Culture - Preliminary No growth-Final to follow 07/12/17 10:15 Stool Occult Blood (JORDY) - Final Stool - Other Studies Radiology: [] reviewed Other Studies: [] Route of nutrition/ use of supplements: [] Nutritional Intake: [] IV Site: [] Waggoner Catheter: [] - Physical Exam General: Alert, Oriented x3, Cooperative, No apparent distress HEENT: Atraumatic, PERRLA, EOMI Neck: Supple, No Nodes Lungs: Clear to auscultation, Normal air movement Cardiovascular: Regular rate, Regular Rhythm Abdomen: Soft, Non Tender, Non-Distended Extremities: Edema - mild Skin: Ulcer/ Wound - L foot wrapped IV Site: Peripheral, without redness Musculoskeletal: No Tenderness to Palpation of Joints or Extremities Neurological: Cranial nerves II-XII grossly intact - Assessment/Plan Antibiotics: [] Assessment/Plan: [] Active and Suspected Problems Nausea and vomiting (Acute) Redness of the left leg and foot (Acute) Type 2 diabetes mellitus with foot ulcer (Acute) Type 2 diabetes mellitus with foot ulcer (Acute) L foot abscess with DM neuropathy - now s/p 1st ray resection by Dr. Duarte 07/11/17. Wound cx prior to surgery with ecoli, enterobacter, GBS, and corynebacterium. MRI showed no osteo. Surg cx with clear margins so far. Closure planned for tomorrow. Will narrow zosyn to cipro/flagyl for GNR coverage and will add iv vanc for corynebacterium coverage. If surg cxs remain neg, and foot looks good again in OR, plan will be for d/c on po abx. Thank you, will follow.
--- NOTE | 2017-07-14 12:31 | NURSING ---
wound photo: left foot
[2017-07-14] MEDS: metroNIDAZOLE 500 MG Tablet PO ×2 (14:16→21:36)
[2017-07-14] MEDS: Atorvastatin Calcium 80 MG Tablet PO (21:36)
[2017-07-14] MEDS: Temazepam 15 MG Capsule PO (21:40)
[2017-07-15] VITALS (14 sets, daily range): BP systolic 110–139; BP diastolic 63–87; PULSE 59–78; RESP 14–18; TEMP 36.4–37.1; O2SAT 93–100; BMI 29.4
--- NOTE | 2017-07-15 | BON_PTH ---
PATIENT: RK MCCLURE LOC: 3 U#:[id number] AGE/SX: 61/M ROOM: IN322 RE07/09/[address]: Dr. Char Mcguire MD : [id number] BED: 1 DIS: 07/18/2017 SPEC #: [id number] RECD: 07/16/17 08:27 STATUS: JENNY REQ #: [id number] JUAN ALBERTO: 07/15/17 00:[address]: Carlos Duarte DEPT: SURGICAL PATHOLOGY RECD BY: Marti Garcia ENTERED: 07/16/17 09:33 SP TYPE: Bone OTHR DR: MD Dr. Clement Gilbert MD Dr. Jeffrey Wunning, SILVIAM DO Dr. Daniel Montague MD Dr. Robert Leininger, MD Tissues: Bone of foot, NOS Procedures: Decalcification bone/plaque Surgery Specimen Level III Comments: @ Ordering doctor for DEC edited from to @ elieser KLEIN at 07/16/17 0934 @ Ordering doctor for III edited from to @ elieser KLEIN at 07/16/17 0934 @ Submitting doctor edited from to @ elieser KLEIN at 07/16/1734 HEADER OPERATION: Debridement tissue/bone, left foot PRE-OP DIAGNOSIS: Osteomyelitis, necrotic first metatarsal, left foot TISSUE SUBMITTED: Left first metatarsal bone MICROSCOPIC DIAGNOSIS Left breast metatarsal bone: A piece of bone, negative for acute osteomyelitis. UYEN:ava 07/21/17 MICROSCOPIC DESCRIPTION Slides are reviewed. GROSS DESCRIPTION Received in fixative is one container labeled with the patient's name and designated left first metatarsal bone. The specimen consists of an irregular fragment of bravo bone measuring 0.6 x 0.3 x 0.2 cm. The specimen is submitted in its entirety in one cassette after decalcification. / AM:ava 07/16/17 TC:5 CPT: 73327, 18974
[2017-07-15] MEDS: Acetaminophen 325 MG Tablet 650 MG PO (05:02)
[2017-07-15] MEDS: Levothyroxine 75 MCG Tablet PO (05:02)
[2017-07-15] MEDS: 0.9% Normal Saline 1,000 ML 100 ML IV (05:02)
[2017-07-15] MEDS: metroNIDAZOLE 500 MG Tablet PO ×2 (05:02→22:01)
[2017-07-15 06:58] LABS: Absolute Lymphocyte Count 1.23 X10^3/ul (0.83-4.51); Absolute Neutrophil Count 7.8 X10^3/uL (2.0-7.7); Basophil# 0.08 X10^3/uL; Basophil% 0.8 % (0-1); Eosinophils% 3.9 % (0-5); Hemoglobin 11.3 g/dl (13.0-16.5); Lymphocyte # 1.23 X10^3/ul (4.0); Lymphocyte % 11.9 % (19-41); Mean Corp Hgb Conc 33.2 g/gl (32-36); Mean Corpuscular Hgb 25.3 pg (27.0-32.0); Mean Corpuscular Volume 76.2 fL (80-94); Mean Platelet Vol. 10.1 fl (6.2-12.0); Monocyte# 0.77 X10^3/uL; Monocyte% 7.4 % (0-10); Neutrophil # 7.78 X10^3/uL (2.7-7.7); Neutrophil % 75.1 % (47-70); Platelet Count 396 K/mm3 (150-450); RBC Distribution Width CV 17.9 % (11.6-14.6); Red Blood Count 4.46 M/mm3 (4.6-6.2); White Blood Count 10.4 K/mm3 (4.4-11.0)
[2017-07-15 07:01] LABS: POSITIVE COUNT NO; POSITIVE DIFFERENTIAL NO
[2017-07-15 07:02] LABS: Differential Indicated SCAN CRITERIA MET; POSITIVE MORPHOLOGY YES
[2017-07-15 07:18] LABS: Anion Gap 9 (5-15); BUN 7 mg/dL (7-18); BUN/Creat Ratio 9.2 RATIO (10-20); Calcium,Total 8.2 mg/dL (8.5-10.1); Chloride 113 mmol/L (98-107); Creatinine, Serum 0.76 mg/dL (0.70-1.30); EST Glomerular Filtration Rate 110 mL/min (>60); Est Glom Filt Rate - Afr Amer 133 mL/min (>60); Estimated Creatinine Clearance 113.89 ml/min; Glucose 100 mg/dL (74-106); Potassium 3.4 mmol/L (3.5-5.1); Sodium Level 143 mmol/L (136-145)
--- NOTE | 2017-07-15 07:32 | PCM.PN.HOSP ---
Patient Problems: Active and Suspected Problems Nausea and vomiting (Acute) Redness of the left leg and foot (Acute) Type 2 diabetes mellitus with foot ulcer (Acute) Type 2 diabetes mellitus with foot ulcer (Acute) Subjective: Seen and examined. Complains of some loose stools, once today. Denies any fever or nausea or vomiting. Kept n.p.o. for surgery today Objective: Physical exam: General: Alert, Oriented x3, Cooperative, No apparent distress HEENT: Atraumatic, PERRLA, EOMI, Normocephalic Oral: Moist Mucosa Neck: Supple Lungs: Clear to auscultation, Normal air movement Cardiovascular: Regular rate, Regular Rhythm, Normal S1, Normal S2, No murmurs Abdomen: Bowel Sounds Present, Soft, Non Tender, Non-Distended, No Hepato-splenomegaly Extremities: No edema, wound dressing over the left ankle and foot with erythema but no differential warmth Skin: No rashes, No breakdown Musculoskeletal: No Tenderness to Palpation of Joints or Extremities Lymphatic: No Cervical, Supraclavicular, or Inguinal Adenopathy Neurological: Cranial nerves II-XII grossly intact Psych/Mental Status: Normal Affect, Appropriate Vitals/I&O's: Vital Signs Temp Pulse Resp BP Pulse Ox 98.2 F 71 18 118/63 95 07/15/17 03:26 07/15/17 03:26 07/15/17 03:26 07/15/17 03:26 07/15/17 03:26 Oxygen Delivery Method Room Air Weight: 101.1 kg Body Mass Index (BMI) 29.4 Finger Stick Blood Glucose 95 Intake and Output for Last 24 Hours 07/13/17 07/14/17 07/15/17 23:59 23:59 23:59 Intake Total 3920.9 / 3920.9 5514 / 5514 1019 / 1019 Output Total 3415 / 3415 2400 / 2400 900 / 900 Balance 505.9 / 505.9 3114 / 3114 119 / 119 Microbiology Past 72 Hours 07/11/17 16:54 Bone - Toe Gram Stain - Final 07/11/17 16:54 Bone - Toe Wound Culture - Preliminary Streptococcus group G 07/11/17 16:54 Bone - Toe Anaerobic Culture - Final No anaerobic bacteria isolated. 07/11/17 16:54 Bone - Toe Gram Stain - Final 07/11/17 16:54 Bone - Toe Wound Culture - Preliminary No growth-Final to follow 07/10/17 08:10 Wound - Left Foot Gram Stain - Final 07/10/17 08:10 Wound - Left Foot Wound Culture - Final Escherichia coli Enterobacter cloacae complex Streptococcus agalactiae (B) Corynebacterium amycolatum/xer 07/12/17 10:15 Stool Stool Occult Blood (JORDY) - Final Laboratory Results 07/15/17 06:28: WBC 10.4, RBC 4.46 L, Hgb 11.3 L, Hct 34.0 L, MCV 76.2 L, MCH 25.3 L, MCHC 33.2, RDW 17.9 H, RDW Differential 48.0 H, Plt Count 396, MPV 10.1, Immature Gran % (Auto) 0.900, Neut % (Auto) 75.1 H, Lymph % (Auto) 11.9 L, Evans % (Auto) 7.4, Eos % (Auto) 3.9, Baso % (Auto) 0.8, Absolute Neuts (auto) 7.8 H, Absolute Lymphs (auto) 1.23, Total Counted Not Reportable 07/15/17 06:28: Sodium 143, Potassium 3.4 L, Chloride 113 H, Carbon Dioxide 21.0, Anion Gap 9, BUN 7, Creatinine 0.76, Estim Creat Clear Calc 113.89, Est GFR (MDRD) Af Amer 133, Est GFR (MDRD) Non-Af 110, BUN/Creatinine Ratio 9.2 L, Glucose 100, Calcium 8.2 L Current Medications Acetaminophen (Tylenol) 650 mg PO Q6H PRN PRN PRN Reason: PAIN Last Admin: 07/15/17 05:02 Dose: 650 mg [facility]orb[facility] ([facility]amin C) [facility] Last Admin: 07/14/17 18:21 Dose: 500 mg Aspirin (Aspirin, Baby) 81 mg PO DAILY@0800 [facility] Last Admin: 07/14/17 09:28 Dose: 81 mg Atorvastatin Calcium (Lipitor) 80 mg PO QHS [facility] Last Admin: 07/14/17 21:36 Dose: 80 mg Baclofen (Lioresal) 10 mg PO BID PRN PRN PRN Reason: MUSCLE SPASM Last Admin: 07/11/17 22:55 Dose: 10 mg Clopidogrel Bisulfate (Plavix) 75 mg PO DAILY [facility] Last Admin: 07/14/17 09:30 Dose: 75 mg Ferrous Sulfate (Ferrous Sulfate) 325 mg PO DAILY@0800 [facility] Last Admin: 07/14/17 09:28 Dose: 325 mg Folic Acid (Folic Acid) [facility] Last Admin: 07/14/17 09:28 Dose: 1 mg Gabapentin (Neurontin) 800 mg PO TIDCM [facility] Last Admin: 07/14/17 18:21 Dose: 800 mg Heparin Sodium (Porcine) (Heparin Na) 5,000 unit SC Q8 [facility] Last Admin: 07/15/17 01:56 Dose: Not Given Sodium Chloride () 1,000 mls @ 100 mls/hr IV .Q10H [facility] Last Admin: 07/15/17 05:02 Dose: 100 mls/hr Ciprofloxacin (Cipro) 400 mg in 200 mls @ 200 mls/hr IV Q12 [facility] Last Admin: 07/14/17 21:34 Dose: 200 mls/hr Vancomycin HCl 2,000 mg/ (Sodium Chloride) 540 mls @ 260 mls/hr IV Q12H [facility] Last Admin: 07/14/17 23:15 Dose: 260 mls/hr Levothyroxine Sodium (Synthroid) 75 mcg PO DAILY@0600 [facility] Last Admin: 07/15/17 05:02 Dose: 75 mcg Metoprolol Tartrate (Lopressor (Beta Alisha)) 25 mg PO BID [facility] Last Admin: 07/14/17 21:36 Dose: 25 mg Metronidazole (Flagyl) 500 mg PO TID [facility] Last Admin: 07/15/17 05:02 Dose: 500 mg Multivitamins (Multivitamin) [facility] Last Admin: 07/14/17 09:28 Dose: 1 tablet Nitroglycerin (Nitrostat) 0.4 mg SUBLINGUAL Q5M PRN PRN Reason: Chest Pain Nutritional Formula (Robert - [place] Flavor) [facility] Last Admin: 07/14/17 14:17 Dose: 1 packet Ondansetron HCl (Zofran) 4 mg IV Q6H PRN PRN PRN Reason: NAUSEA Pantoprazole Sodium (Protonix) 40 mg PO DAILY [facility] Last Admin: 07/14/17 09:30 Dose: 40 mg Sodium Chloride () 5 - 30 ml IV UD PRN PRN Reason: SALINE FLUSH Last Admin: 07/10/17 14:21 Dose: 10 ml Temazepam (Restoril) 15 mg PO QHS [facility] Last Admin: 07/14/17 21:40 Dose: 15 mg Zinc Sulfate (Zinc Sulfate) 220 mg PO DAILY [facility] Last Admin: 07/14/17 09:30 Dose: 220 mg Medical Necessity - Tobacco Use Smoking Status: Current every day smoker Tobacco Use: Cigarettes Assessment/Plan Active and Suspected Problems Nausea and vomiting (Acute) Redness of the left leg and foot (Acute) Type 2 diabetes mellitus with foot ulcer (Acute) Type 2 diabetes mellitus with foot ulcer (Acute) 61-year-old male with multiple co-morbidities admitted with left lower extremity cellulitis, status post I & D, first ray resection on 07/11/17, 1. Left lower leg, foot cellulitis, infected nonhealing wound, cultures growing E. coli, Enterobacter, Streptococcus, status post I & D, first ray resection on 07/11/17, no osteomyelitis on MRI, bone cultures are growing Streptococcus group G, surgery is planned for today for further wound debridement and possible wound VAC placement, on IV Cipro, Flagyl PO, vancomycin,. Infectious disease following. 2. PAD, no intervention is planned, on aspirin, statin 3. Type 2 DM, diet controlled, blood sugars are stable 4. CAD s/p CABG, on aspirin, statin 5. Hypertension, controlled, on metoprolol 6. Hypothyroidism, on levothyroxine 7. Peripheral neuropathy, likely diabetic related, on gabapentin 8. DVT PPx -Heparin subcu Code Visit Inpatient E&M: 78885 Subs Hosp L3
[2017-07-15] MEDS: Folic Acid 1 MG Tablet PO (07:51)
[2017-07-15] MEDS: Ferrous Sulfate 325 MG Tablet PO (07:51)
[2017-07-15] MEDS: Ascorbic Acid 500 MG Tablet PO ×2 (07:52→17:44)
[2017-07-15] MEDS: Multivitamins,Therapeutic Tablet 1 TABLET PO (07:52)
[2017-07-15] MEDS: Gabapentin 800 MG Tablet PO ×2 (07:52→18:27)
[2017-07-15] MEDS: Ciprofloxacin 400 MG/200 ML BAG 200 MG IV ×2 (09:48→22:06)
--- NOTE | 2017-07-15 09:57 | NURSING ---
Patient scheduled for surgery today at 1525. will leave dressings in place. patient is having further debridement and possible wound VAC application per Dr Duarte.
[2017-07-15] MEDS: Pantoprazole Sodium 40 MG Tablet PO (09:58)
[2017-07-15] MEDS: Metoprolol Tartrate 25 MG Tablet PO ×2 (09:58→22:02)
--- NOTE | 2017-07-15 11:02 | PN.ID_ITS ---
Patient Problems: Active and Suspected Problems Nausea and vomiting (Acute) Redness of the left leg and foot (Acute) Type 2 diabetes mellitus with foot ulcer (Acute) Type 2 diabetes mellitus with foot ulcer (Acute) Subjective: Feeling ok, no fever, some loose stool. OR today. - Physical Exam General: Alert, Cooperative Lungs: Clear to auscultation, Normal air movement Cardiovascular: Regular rate, Regular Rhythm Abdomen: Soft, Non Tender, Non-Distended Skin: No rashes Vital Signs Temp Pulse Resp BP Pulse Ox 98.1 F 65 18 134/87 H 96 07/15/17 07:41 07/15/17 09:58 07/15/17 07:41 07/15/17 09:58 07/15/17 07:41 Oxygen Delivery Method Room Air Weight: 101.1 kg Body Mass Index (BMI) 29.4 Finger Stick Blood Glucose 95 Intake and Output for Last 24 Hours 07/13/17 07/14/17 07/15/17 23:59 23:59 23:59 Intake Total 3920.9 / 3920.9 5514 / 5514 1019 / 1019 Output Total 3415 / 3415 2400 / 2400 900 / 900 Balance 505.9 / 505.9 3114 / 3114 119 / 119 Microbiology Past 72 Hours 07/11/17 16:54 Gram Stain - Final Bone - Toe Wound Culture - Preliminary Streptococcus group G 07/11/17 16:54 Gram Stain - Final Bone - Toe Wound Culture - Final Streptococcus group G Anaerobic Culture - Final No anaerobic bacteria isolated. 07/10/17 08:10 Gram Stain - Final Wound - Left Foot Wound Culture - Final Escherichia coli Enterobacter cloacae complex Streptococcus agalactiae (B) Corynebacterium amycolatum/xer 07/12/17 10:15 Stool Occult Blood (JORDY) - Final Stool Laboratory Tests Past 24 Hrs 07/15/17 07/15/17 06:28 06:28 WBC 10.4 RBC 4.46 L Hgb 11.3 L Hct 34.0 L MCV 76.2 L MCH 25.3 L MCHC 33.2 RDW 17.9 H RDW Differential 48.0 H Plt Count 396 MPV 10.1 Immature Gran % (Auto) 0.900 Neut % (Auto) 75.1 H Lymph % (Auto) 11.9 L Turner % (Auto) 7.4 Eos % (Auto) 3.9 Baso % (Auto) 0.8 Absolute Neuts (auto) 7.8 H Absolute Lymphs (auto) 1.23 Total Counted Not Reportable Sodium 143 Potassium 3.4 L Chloride 113 H Carbon Dioxide 21.0 Anion Gap 9 BUN 7 Creatinine 0.76 Estim Creat Clear Calc 113.89 Est GFR (MDRD) Af Amer 133 Est GFR (MDRD) Non-Af 110 BUN/Creatinine Ratio 9.2 L Glucose 100 Calcium 8.2 L Medical Necessity - Tobacco Use Smoking Status: Current every day smoker Tobacco Use: Cigarettes Route of nutrition/ use of supplements: [] Nutritional Intake: [] IV Site: [] Waggoner Catheter: [] - Assessment/Plan Antibiotics: [] Assessment/Plan: [] Active and Suspected Problems Nausea and vomiting (Acute) Redness of the left leg and foot (Acute) Type 2 diabetes mellitus with foot ulcer (Acute) Type 2 diabetes mellitus with foot ulcer (Acute) 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 Duarte 07/11/17. Wound cx prior to surgery with ecoli, enterobacter, GBS, and corynebacterium. MRI showed no osteo. Surg cx now (+) for GBS in the bone. On vanc/cipro/flagyl. Given (+) for osteomyelitis, plan is now for picc with 6 weeks of iv vanc/ertapenem. Weekly bmp, cbc, LFT, esr, and vanc trough while on iv abx. will follow.
--- NOTE | 2017-07-15 12:40 | CASEMGMT ---
Social Work Note CARLTON met with pt to discuss discharge planning. Per pt he is thinking short term placement at SNF or home health care at discharge. SW informed pt that Home Health Care will only come to pt's house about once or twice a week and will teach pt how to change wound vac. Pt states that he better go to a SNF placement as he thinks he will be unable to manage on his own. Pt states that his first choice is [facility] and his second choice is [place]. SW informed pt that this worker will fax a referral to [facility] and call to see about bed availability but if they are unable to accept or don't have a bed this worker will then send the referral to [facility]. Pt states understanding and was receptive to this. CARLTON placed a call to Joselyn at [facility] and left a message regarding referral. SW will wait for a call back from Joselyn to see about bed availability. Plan: Discharge to [facility] pending bed availability and acceptance. Glendy Maher WAREHOUSE SPECIALIST, ENGINEERING AGENT
--- NOTE | 2017-07-15 13:23 | CASEMGMT ---
Social Work Note SW received call from Joselyn at [facility] asking if pt is in isolation. SW placed a call back to Joselyn at [facility] and left a message for her stating that pt is not in isolation. CARLTON will continue to follow to assist with discharge planning. Plan: Discharge to [facility] pending acceptance Glendy Maher MSW, RADIOLOGY RN
--- NOTE | 2017-07-15 16:57 | PCM.IMDPSTOP ---
Problem List (1) Type 2 diabetes mellitus with foot ulcer Status: Acute (2) Type 2 diabetes mellitus with foot ulcer Status: Acute Immediate Post-Op Note Date of Procedure: 07/11/17 Primary Surgeon/Physician: Carlos Duarte DPM eyeglass frames inspector: Carlos Duarte Pre-Operative Diagnosis: diabetic foot infection with abscess, left foot Post-Operative Diagnosis: diabetic foot infection with abscess Surgery/Procedure Performed:: first ray resection and partial closure of left foot wound Description of Surgical Findings:: + nonviable tissue of medial incision and dorsal incision Estimated Blood Loss: 50 ml Specimen's removed: 1st metatarsal for pathology and micro (pre and post lavage was obtained) Type of Anesthesia:: Local MAC - Admit VTE Documentation VTE Present on Admission: No VTE Pharm Prophylaxis ordered?: Yes
--- NOTE | 2017-07-15 17:15 | RAD_ITS ---
STUDY: X-RAY - LEFT FOOT CLINICAL: Male, 61 years old. Postop TECHNIQUE: 3 view(s) of the foot. COMPARISON: July 11, 2017 FINDINGS: Degenerative changes at the tarsal and tarsometatarsal articulations. Status post transmetatarsal amputation of the great toe. Postoperative changes in the adjacent soft tissue with decreasing soft tissue gas since the previous study. Amputation site appears well defined with some degree of bony resorption. No radiographic evidence of osteomyelitis. Normal second through fifth metatarsophalangeal joints. Normal interphalangeal joints and phalanges of the lesser toes. Mild soft tissue edema of the foot. RAD/Foot min 3 Views IMPRESSION: Transmetatarsal amputation of the first toe. Mild soft tissue swelling of the foot. Electronically Signed: Ben Ying DO at 18:22 EDT Tel [phone], Service support ,
[2017-07-15] MEDS: 0.9% Normal Saline 1,000 ML 75 ML IV (20:29)
[2017-07-15] MEDS: Heparin Injection (Vial) 5,000 UNIT/ML VIAL 5000 UNIT SC (22:01)
[2017-07-15] MEDS: Atorvastatin Calcium 80 MG Tablet PO (22:02)
[2017-07-15] MEDS: Temazepam 15 MG Capsule PO (22:06)
[2017-07-15 23:50] LABS: Vancomycin, Trough Level 15.7 ug/mL (5.0-15.0)
[2017-07-16] VITALS (7 sets, daily range): BP systolic 119–140; BP diastolic 65–87; PULSE 66–77; RESP 16–18; TEMP 36.9–37.2; O2SAT 96–99
--- NOTE | 2017-07-16 01:38 | PCM.RX.CS ---
Consult Pharmacy has been consulted to manage selected antiobiotic: Vancomycin Type of Consult: Follow-up Suspected Infection: Skin/Soft tissue Prior Doses of Antibiotics Received/Current Regimen: Medications Vancomycin HCl 2,000 mg/ (Sodium Chloride) 540 mls @ 260 mls/hr IV Q12H [facility] Last Admin: 07/15/17 23:55 Dose: 260 mls/hr Labs: Sodium 143 mmol/L (136-145) 07/15/17 06:28 Potassium 3.4 mmol/L (3.5-5.1) L 07/15/17 06:28 Chloride 113 mmol/L (98-107) H 07/15/17 06:28 Carbon Dioxide 21.0 mmol/L (21.0-32.0) 07/15/17 06:28 Anion Gap 9 (5-15) 07/15/17 06:28 BUN 7 mg/dL (7-18) 07/15/17 06:28 Creatinine 0.76 mg/dL (0.70-1.30) 07/15/17 06:28 Est GFR (MDRD) Af Amer 133 mL/min (>60) 07/15/17 06:28 Est GFR (MDRD) Non-Af 110 mL/min (>60) 07/15/17 06:28 BUN/Creatinine Ratio 9.2 RATIO (10-20) L 07/15/17 06:28 Glucose 100 mg/dL (74-106) 07/15/17 06:28 Vancomycin Trough 15.7 ug/mL (5.0-15.0) H 07/15/17 23:15 Microbiology: Microbiology 07/11/17 16:54 Bone - Toe Gram Stain - Final 07/11/17 16:54 Bone - Toe Wound Culture - Preliminary Streptococcus group G 07/11/17 16:54 Bone - Toe Gram Stain - Final 07/11/17 16:54 Bone - Toe Wound Culture - Final Streptococcus group G 07/11/17 16:54 Bone - Toe Anaerobic Culture - Final No anaerobic bacteria isolated. 07/10/17 08:10 Wound - Left Foot Gram Stain - Final 07/10/17 08:10 Wound - Left Foot Wound Culture - Final Escherichia coli Enterobacter cloacae complex Streptococcus agalactiae (B) Corynebacterium amycolatum/xer 07/12/17 10:15 Stool Stool Occult Blood (JORDY) - Final Weight used for dosin.1 kg Estimated Creatinine Clearance: 144 Goal Trough: 10-15 mcg/mL Pharmacy Plan for Drug Dosing: Pharmacy Service will continue to monitor and adjust dosing as required. Follow-Up Labs: Trough Vancomycin Labs to be done on [date and time ordered]: 07/17/17 @4792
[2017-07-16] MEDS: Acetaminophen 325 MG Tablet 650 MG PO (05:16)
[2017-07-16] MEDS: metroNIDAZOLE 500 MG Tablet PO ×3 (05:17→22:21)
[2017-07-16] MEDS: Heparin Injection (Vial) 5,000 UNIT/ML VIAL 5000 UNIT SC ×3 (05:17→22:21)
[2017-07-16] MEDS: Levothyroxine 75 MCG Tablet PO (05:17)
[2017-07-16] MEDS: Aspirin 81 MG TAB.CHEW PO (08:44)
[2017-07-16] MEDS: Multivitamins,Therapeutic Tablet 1 TABLET PO (08:45)
[2017-07-16] MEDS: Gabapentin 800 MG Tablet PO ×3 (08:45→16:37)
[2017-07-16] MEDS: Ascorbic Acid 500 MG Tablet PO ×2 (08:45→16:36)
[2017-07-16] MEDS: Ferrous Sulfate 325 MG Tablet PO (08:45)
[2017-07-16] MEDS: Folic Acid 1 MG Tablet PO (08:46)
--- NOTE | 2017-07-16 09:41 | CASEMGMT ---
Social Work Note CARLTON placed call to Joselyn at [facility] following up with referral that this worker sent Joselyn yesterday. CARLTON waiting for call back from Joselyn to see if they are able to accept pt. Plan: Discharge to [facility] pending acceptance Glendy Maher MSW, NURSERY TECHNICIAN
[2017-07-16] MEDS: Ciprofloxacin 400 MG/200 ML BAG 200 MG IV ×2 (10:03→22:21)
--- NOTE | 2017-07-16 10:26 | PCM.PN.HOSP ---
Patient Problems: Active and Suspected Problems Nausea and vomiting (Acute) Redness of the left leg and foot (Acute) Type 2 diabetes mellitus with foot ulcer (Acute) Type 2 diabetes mellitus with foot ulcer (Acute) Subjective: Patient was seen and examined. He had I&D done yesterday. Denies any complaints. Had 3 loose stools yesterday. One loose stool today. Denies any fever or chills or shortness of breath or palpitation. Objective: Physical exam: General: Alert, Oriented x3, Cooperative, No apparent distress HEENT: Atraumatic, PERRLA, EOMI, Normocephalic Oral: Moist Mucosa Neck: Supple Lungs: Clear to auscultation, Normal air movement Cardiovascular: Regular rate, Regular Rhythm, Normal S1, Normal S2, No murmurs Abdomen: Bowel Sounds Present, Soft, Non Tender, Non-Distended, No Hepato-splenomegaly Extremities: No edema, wound dressing over the left ankle and foot with erythema but no differential warmth, AMIE wraps to left foot. Skin: No rashes, No breakdown Musculoskeletal: No Tenderness to Palpation of Joints or Extremities Lymphatic: No Cervical, Supraclavicular, or Inguinal Adenopathy Neurological: Cranial nerves II-XII grossly intact Psych/Mental Status: Normal Affect, Appropriate Vitals/I&O's: Vital Signs Temp Pulse Resp BP Pulse Ox 98.9 F 77 18 119/65 96 07/16/17 08:04 07/16/17 08:04 07/16/17 08:14 07/16/17 08:04 07/16/17 08:14 Oxygen Delivery Method Room Air Weight: 101.1 kg Body Mass Index (BMI) 29.4 Finger Stick Blood Glucose 95 Intake and Output for Last 24 Hours 07/14/17 07/15/17 07/16/17 23:59 23:59 23:59 Intake Total 5514 / 5514 4453 / 4453 1817 / 1817 Output Total 2400 / 2400 2550 / 2550 1850 / 1850 Balance 3114 / 3114 1903 / 1903 -33 / -33 Microbiology Past 72 Hours 07/15/17 Unknown Bone - Left Foot Gram Stain - Final 07/11/17 16:54 Bone - Toe Gram Stain - Final 07/11/17 16:54 Bone - Toe Wound Culture - Final Streptococcus group G 07/11/17 16:54 Bone - Toe Gram Stain - Final 07/11/17 16:54 Bone - Toe Wound Culture - Final Streptococcus group G 07/11/17 16:54 Bone - Toe Anaerobic Culture - Final No anaerobic bacteria isolated. 07/10/17 08:10 Wound - Left Foot Gram Stain - Final 07/10/17 08:10 Wound - Left Foot Wound Culture - Final Escherichia coli Enterobacter cloacae complex Streptococcus agalactiae (B) Corynebacterium amycolatum/xer Laboratory Results 07/15/17 23:15: Vancomycin Trough 15.7 H 07/16/17 09:50: Sodium Pending, Potassium Pending, Chloride Pending, Carbon Dioxide Pending, Anion Gap Pending, BUN Pending, Creatinine Pending, Est GFR (MDRD) Af Amer Pending, Est GFR (MDRD) Non-Af Pending, BUN/Creatinine Ratio Pending, Glucose Pending, Calcium Pending Current Medications Acetaminophen (Tylenol) 650 mg PO Q6H PRN PRN PRN Reason: PAIN Last Admin: 07/16/17 05:16 Dose: 650 mg Ascorbic Acid (Vitamin C) [facility] Last Admin: 07/16/17 08:45 Dose: 500 mg Aspirin (Aspirin, Baby) 81 mg PO DAILY@0800 COUNTS [facility]CLUDE 234 BEDS AT [facility] Last Admin: 07/16/17 08:44 Dose: 81 mg Atorvastatin Calcium (Lipitor) 80 mg PO QHS [facility]S [facility]CLUDE 234 BEDS AT [facility] Last Admin: 07/15/17 22:02 Dose: 80 mg Baclofen (Lioresal) 10 mg PO BID PRN PRN PRN Reason: MUSCLE SPASM Last Admin: 07/11/17 22:55 Dose: 10 mg Clopidogrel Bisulfate (Plavix) 75 mg PO DAILY [facility]S [facility]CLUDE 234 BEDS AT [facility] Last Admin: 07/15/17 09:51 Dose: Not Given Ferrous Sulfate (Ferrous Sulfate) 325 mg PO DAILY@0800 COUNTS INCLUDE 234 BEDS AT [facility] Last Admin: 07/16/17 08:45 Dose: 325 mg Folic Acid (Folic Acid) [facility] Last Admin: 07/16/17 08:46 Dose: 1 mg Gabapentin (Neurontin) 800 mg PO TIDCM COUNTS INCLUDE 234 BEDS AT [facility] Last Admin: 07/16/17 08:45 Dose: 800 mg Heparin Sodium (Porcine) (Heparin Na) 5,000 unit SC Q8 COUNTS INCLUDE 234 BEDS AT [facility] Last Admin: 07/16/17 05:17 Dose: 5,000 units Ciprofloxacin (Cipro) 400 mg in 200 mls @ 200 mls/hr IV Q12 COUNTS INCLUDE 234 BEDS AT [facility] Last Admin: 07/16/17 10:03 Dose: 200 mls/hr Vancomycin HCl 2,000 mg/ (Sodium Chloride) 540 mls @ 260 mls/hr IV Q12H COUNTS INCLUDE 234 BEDS AT [facility] Last Admin: 07/15/17 23:55 Dose: 260 mls/hr Sodium Chloride () 1,000 mls @ 75 mls/hr IV .[id number] COUNTS INCLUDE 234 BEDS AT [facility] Last Admin: 07/15/17 20:29 Dose: 75 mls/hr Levothyroxine Sodium (Synthroid) 75 mcg PO DAILY@0600 COUNTS INCLUDE 234 BEDS AT [facility] Last Admin: 07/16/17 05:17 Dose: 75 mcg Metoprolol Tartrate (Lopressor (Beta Alisha)) 25 mg PO BID COUNTS INCLUDE 234 BEDS AT [facility] Last Admin: 07/15/17 22:02 Dose: 25 mg Metronidazole (Flagyl) 500 mg PO TID [facility]S [facility]CLUDE 234 BEDS AT [facility] Last Admin: 07/16/17 05:17 Dose: 500 mg Multivitamins (Multivitamin) [facility] Last Admin: 07/16/17 08:45 Dose: 1 tablet Nitroglycerin (Nitrostat) 0.4 mg SUBLINGUAL Q5M PRN PRN Reason: Chest Pain Nutritional Formula (Robert - [place] Flavor) [facility] Last Admin: 07/16/17 08:44 Dose: 1 packet Ondansetron HCl (Zofran) 4 mg IV Q6H PRN PRN PRN Reason: NAUSEA Pantoprazole Sodium (Protonix) 40 mg PO DAILY COUNTS [facility]CLUDE 234 BEDS AT [facility] Last Admin: 07/15/17 09:58 Dose: 40 mg Sodium Chloride () 5 - 30 ml IV UD PRN PRN Reason: SALINE FLUSH Last Admin: 07/10/17 14:21 Dose: 10 ml Temazepam (Restoril) 15 mg PO QHS [facility]S [facility]CLUDE 234 BEDS AT [facility] Last Admin: 07/15/17 22:06 Dose: 15 mg Zinc Sulfate (Zinc Sulfate) 220 mg PO DAILY COUNTS [facility]CLUDE 234 BEDS AT [facility] Last Admin: 07/15/17 09:58 Dose: 220 mg Medical Necessity - Tobacco Use Smoking Status: Current every day smoker Tobacco Use: Cigarettes Assessment/Plan Active and Suspected Problems Nausea and vomiting (Acute) Redness of the left leg and foot (Acute) Type 2 diabetes mellitus with foot ulcer (Acute) Type 2 diabetes mellitus with foot ulcer (Acute) 61-year-old male with multiple co-morbidities admitted with left lower extremity cellulitis, status post I & D, first ray resection on 07/11/17, 1. Left foot cellulitis, infected nonhealing wound, cultures growing E. coli, Enterobacter, Streptococcus, status post I & D, first ray resection on 07/11/17, as well as further I&D done on 07/15/2017, initially no osteomyelitis on MRI, bone cultures are growing Streptococcus group G, wound VAC placement pending, consulted, plans on 6 weeks of IV Cipro, Flagyl PO, vancomycin IV. 2. PAD, no intervention is planned, on aspirin, statin 3. Type 2 DM, diet controlled, blood sugars are stable 4. CAD s/p CABG, on aspirin, statin 5. Hypertension, controlled, on metoprolol 6. Hypothyroidism, on levothyroxine 7. Peripheral neuropathy, likely diabetic related, on gabapentin 8. DVT PPx -Heparin subcu 9. Disposition: Waiting on precert for dc to SNF for rehab. Code Visit Inpatient E&M: 98584 Subs Hosp L2
--- NOTE | 2017-07-16 10:32 | PN_ITS ---
Patient Problems: Active and Suspected Problems Nausea and vomiting (Acute) Redness of the left leg and foot (Acute) Type 2 diabetes mellitus with foot ulcer (Acute) Type 2 diabetes mellitus with foot ulcer (Acute) Subjective: Patient was seen and examined. He had I&D done yesterday. Denies any complaints. Had 3 loose stools yesterday. One loose stool today. Denies any fever or chills or shortness of breath or palpitation. Objective: Physical exam: General: Alert, Oriented x3, Cooperative, No apparent distress HEENT: Atraumatic, PERRLA, EOMI, Normocephalic Oral: Moist Mucosa Neck: Supple Lungs: Clear to auscultation, Normal air movement Cardiovascular: Regular rate, Regular Rhythm, Normal S1, Normal S2, No murmurs Abdomen: Bowel Sounds Present, Soft, Non Tender, Non-Distended, No Hepato- splenomegaly Extremities: No edema, wound dressing over the left ankle and foot with erythema but no differential warmth, AMIE wraps to left foot. Skin: No rashes, No breakdown Musculoskeletal: No Tenderness to Palpation of Joints or Extremities Lymphatic: No Cervical, Supraclavicular, or Inguinal Adenopathy Neurological: Cranial nerves II-XII grossly intact Psych/Mental Status: Normal Affect, Appropriate Vitals/I&O's: Vital Signs Temp Pulse Resp BP Pulse Ox 98.9 F 77 18 119/65 96 07/16/17 08:04 07/16/17 08:04 07/16/17 08:14 07/16/17 08:04 07/16/17 08:14 Oxygen Delivery Method Room Air Weight: 101.1 kg Body Mass Index (BMI) 29.4 Finger Stick Blood Glucose 95 Intake and Output for Last 24 Hours 07/14/17 07/15/17 07/16/17 23:59 23:59 23:59 Intake Total 5514 / 5514 4453 / 4453 1817 / 1817 Output Total 2400 / 2400 2550 / 2550 1850 / 1850 Balance 3114 / 3114 1903 / 1903 -33 / -33 Microbiology Past 72 Hours 07/15/17 Unknown Bone - Left Foot Gram Stain - Final 07/11/17 16:54 Bone - Toe Gram Stain - Final 07/11/17 16:54 Bone - Toe Wound Culture - Final Streptococcus group G 07/11/17 16:54 Bone - Toe Gram Stain - Final 07/11/17 16:54 Bone - Toe Wound Culture - Final Streptococcus group G 07/11/17 16:54 Bone - Toe Anaerobic Culture - Final No anaerobic bacteria isolated. 07/10/17 08:10 Wound - Left Foot Gram Stain - Final 07/10/17 08:10 Wound - Left Foot Wound Culture - Final Escherichia coli Enterobacter cloacae complex Streptococcus agalactiae (B) Corynebacterium amycolatum/xer Laboratory Results 07/15/17 23:15: Vancomycin Trough 15.7 H 07/16/17 09:50: Sodium Pending, Potassium Pending, Chloride Pending, Carbon Dioxide Pending, Anion Gap Pending, BUN Pending, Creatinine Pending, Est GFR ( MDRD) Af Amer Pending, Est GFR (MDRD) Non-Af Pending, BUN/Creatinine Ratio Pending, Glucose Pending, Calcium Pending Current Medications Acetaminophen (Tylenol) 650 mg PO Q6H PRN PRN PRN Reason: PAIN Last Admin: 07/16/17 05:16 Dose: 650 mg [facility] Admin: 07/16/17 08:45 Dose: 500 mg Aspirin (Aspirin, Baby) 81 mg PO DAILY@0800 [facility] Last Admin: 07/16/17 08:44 Dose: 81 mg Atorvastatin Calcium (Lipitor) 80 mg PO QHS [facility] Last Admin: 07/15/17 22:02 Dose: 80 mg Baclofen (Lioresal) 10 mg PO BID PRN PRN PRN Reason: MUSCLE SPASM Last Admin: 07/11/17 22:55 Dose: 10 mg Clopidogrel Bisulfate (Plavix) 75 mg PO DAILY [facility] Last Admin: 07/15/17 09:51 Dose: Not Given Ferrous Sulfate (Ferrous Sulfate) 325 mg PO DAILY@0800 [facility] Last Admin: 07/16/17 08:45 Dose: 325 mg Folic Acid (Folic Acid) [facility] Last Admin: 07/16/17 08:46 Dose: 1 mg Gabapentin (Neurontin) 800 mg PO TIDCM [facility] Last Admin: 07/16/17 08:45 Dose: 800 mg Heparin Sodium (Porcine) (Heparin Na) 5,000 unit SC Q8 [facility] Last Admin: 07/16/17 05:17 Dose: 5,000 units Ciprofloxacin (Cipro) 400 mg in 200 mls @ 200 mls/hr IV Q12 [facility] Last Admin: 07/16/17 10:03 Dose: 200 mls/hr Vancomycin HCl 2,000 mg/ (Sodium Chloride) 540 mls @ 260 mls/hr IV Q12H [facility] Last Admin: 07/15/17 23:55 Dose: 260 mls/hr Sodium Chloride () 1,000 mls @ 75 mls/hr IV .[id number] [facility] Last Admin: 07/15/17 20:29 Dose: 75 mls/hr Levothyroxine Sodium (Synthroid) 75 mcg PO DAILY@0600 [facility] Last Admin: 07/16/17 05:17 Dose: 75 mcg Metoprolol Tartrate (Lopressor (Beta Alisha)) 25 mg PO BID [facility] Last Admin: 07/15/17 22:02 Dose: 25 mg Metronidazole (Flagyl) 500 mg PO TID [facility] Last Admin: 07/16/17 05:17 Dose: 500 mg Multivitamins (Multivitamin) [facility] Last Admin: 07/16/17 08:45 Dose: 1 tablet Nitroglycerin (Nitrostat) 0.4 mg SUBLINGUAL Q5M PRN PRN Reason: Chest Pain Nutritional Formula (Robert - [place] Flavor) [facility] Last Admin: 07/16/17 08:44 Dose: 1 packet Ondansetron HCl (Zofran) 4 mg IV Q6H PRN PRN PRN Reason: NAUSEA Pantoprazole Sodium (Protonix) 40 mg PO DAILY [facility] Last Admin: 07/15/17 09:58 Dose: 40 mg Sodium Chloride () 5 - 30 ml IV UD PRN PRN Reason: SALINE FLUSH Last Admin: 07/10/17 14:21 Dose: 10 ml Temazepam (Restoril) 15 mg PO QHS [facility] Last Admin: 07/15/17 22:06 Dose: 15 mg Zinc Sulfate (Zinc Sulfate) 220 mg PO DAILY [facility] Last Admin: 07/15/17 09:58 Dose: 220 mg Medical Necessity - Tobacco Use Smoking Status: Current every day smoker Tobacco Use: Cigarettes Assessment/Plan Active and Suspected Problems Nausea and vomiting (Acute) Redness of the left leg and foot (Acute) Type 2 diabetes mellitus with foot ulcer (Acute) Type 2 diabetes mellitus with foot ulcer (Acute) 61-year-old male with multiple co-morbidities admitted with left lower extremity cellulitis, status post I & D, first ray resection on 07/11/17, 1. Left foot cellulitis, infected nonhealing wound, cultures growing E. coli, Enterobacter, Streptococcus, status post I & D, first ray resection on 07/11/17, as well as further I&D done on 07/15/2017, initially no osteomyelitis on MRI, bone cultures are growing Streptococcus group G, wound VAC placement pending, consulted, plans on 6 weeks of IV Cipro, Flagyl PO, vancomycin IV. 2. PAD, no intervention is planned, on aspirin, statin 3. Type 2 DM, diet controlled, blood sugars are stable 4. CAD s/p CABG, on aspirin, statin 5. Hypertension, controlled, on metoprolol 6. Hypothyroidism, on levothyroxine 7. Peripheral neuropathy, likely diabetic related, on gabapentin 8. DVT PPx -Heparin subcu 9. Disposition: Waiting on precert for dc to SNF for rehab. Code Visit Inpatient E&M: 75478 Subs Hosp L2
--- NOTE | 2017-07-16 10:32 | NURSING ---
chemical engineering intern called at this time for PICC line placement. There is an RN in house completing another line, will be up to insert when finished.
[2017-07-16 10:34] LABS: Anion Gap 7 (5-15); BUN 10 mg/dL (7-18); BUN/Creat Ratio 11.8 RATIO (10-20); Calcium,Total 8.3 mg/dL (8.5-10.1); Chloride 113 mmol/L (98-107); Creatinine, Serum 0.85 mg/dL (0.70-1.30); EST Glomerular Filtration Rate 97 mL/min (>60); Est Glom Filt Rate - Afr Amer 117 mL/min (>60); Estimated Creatinine Clearance 101.83 ml/min; Glucose 142 mg/dL (74-106); Potassium 3.3 mmol/L (3.5-5.1); Sodium Level 142 mmol/L (136-145)
[2017-07-16] MEDS: Clopidogrel Bisulfate 75 MG Tablet PO (10:56)
[2017-07-16] MEDS: Metoprolol Tartrate 25 MG Tablet PO ×2 (10:56→22:22)
[2017-07-16] MEDS: Pantoprazole Sodium 40 MG Tablet PO (10:58)
--- NOTE | 2017-07-16 12:01 | PN.ID_ITS ---
Patient Problems: Active and Suspected Problems Nausea and vomiting (Acute) Redness of the left leg and foot (Acute) Type 2 diabetes mellitus with foot ulcer (Acute) Type 2 diabetes mellitus with foot ulcer (Acute) Subjective: Pain controlled s/p OR. No fever. Still some loose stool, no abd pain. - Physical Exam General: Alert, Cooperative, No apparent distress Lungs: Clear to auscultation, Normal air movement Cardiovascular: Regular rate, Regular Rhythm Abdomen: Soft, Non Tender, Non-Distended Skin: No rashes Musculoskeletal: No Tenderness to Palpation of Joints or Extremities Vital Signs Temp Pulse Resp BP Pulse Ox 98.9 F 77 18 119/65 96 07/16/17 08:04 07/16/17 10:56 07/16/17 08:14 07/16/17 10:56 07/16/17 08:14 Oxygen Delivery Method Room Air Weight: 101.1 kg Body Mass Index (BMI) 29.4 Finger Stick Blood Glucose 95 Intake and Output for Last 24 Hours 07/14/17 07/15/17 07/16/17 23:59 23:59 23:59 Intake Total 5514 / 5514 4453 / 4453 1817 / 1817 Output Total 2400 / 2400 2550 / 2550 2450 / 2450 Balance 3114 / 3114 1903 / 1903 -633 / -633 Microbiology Past 72 Hours 07/15/17 Unknown Gram Stain - Final Bone - Left Foot Wound Culture - Preliminary No growth-Final to follow 07/11/17 16:54 Gram Stain - Final Bone - Toe Wound Culture - Final Streptococcus group G 07/11/17 16:54 Gram Stain - Final Bone - Toe Wound Culture - Final Streptococcus group G Anaerobic Culture - Final No anaerobic bacteria isolated. 07/10/17 08:10 Gram Stain - Final Wound - Left Foot Wound Culture - Final Escherichia coli Enterobacter cloacae complex Streptococcus agalactiae (B) Corynebacterium amycolatum/xer Laboratory Tests Past 24 Hrs 07/15/17 07/16/17 23:15 09:50 Sodium 142 Potassium 3.3 L Chloride 113 H Carbon Dioxide 22.0 Anion Gap 7 BUN 10 Creatinine 0.85 Estim Creat Clear Calc 101.83 Est GFR (MDRD) Af Amer 117 Est GFR (MDRD) Non-Af 97 BUN/Creatinine Ratio 11.8 Glucose 142 H Calcium 8.3 L Vancomycin Trough 15.7 H Medical Necessity - Tobacco Use Smoking Status: Current every day smoker Tobacco Use: Cigarettes Route of nutrition/ use of supplements: [] Nutritional Intake: [] IV Site: [] Waggoner Catheter: [] - Assessment/Plan Antibiotics: [] Assessment/Plan: [] Active and Suspected Problems Nausea and vomiting (Acute) Redness of the left leg and foot (Acute) Type 2 diabetes mellitus with foot ulcer (Acute) Type 2 diabetes mellitus with foot ulcer (Acute) 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 Duarte 07/11/17 and repeat OR 07/15. Wound cx prior to surgery with ecoli, enterobacter, GBS, and corynebacterium. MRI showed no osteo. Surg cx now (+) for GBS in the bone. On vanc/cipro/flagyl. Given (+) for osteomyelitis, plan is now for picc with 6 weeks of iv vanc/ertapenem, stop date 08/26/17. Weekly bmp , cbc, LFT, esr, and vanc trough while on iv abx. will follow. Rx written for labs and abx.
--- NOTE | 2017-07-16 13:56 | CASEMGMT ---
Social Work Note CARLTON received call from Joselyn at [facility] asking for this worker to call her back. CARLTON placed a call to Joselyn and left her a message. CARLTON waiting for call back from Joselyn. Plan: [facility] pending acceptance Glendy Maher HOGSHEAD COOPER, AUTOMOTIVE WORKER
[2017-07-16] MEDS: 0.9% Normal Saline 1,000 ML 75 ML IV (14:38)
[2017-07-16] MEDS: 0.9% NaCl Peripheral Flush Adult/Peds IV (14:38)
--- NOTE | 2017-07-16 16:08 | CASEMGMT ---
Social Work Note CARLTON placed a call to Joselyn at [facility]. Joselyn asked this SW if pt had any amputation today for surgery and also asked if pt would be able to handle not being able to smoke as [facility] is a non-smoking facility. CARLTON informed Joselyn that pt did have a toe amputation today and this worker will talk to pt about not being able to smoke at [facility]. CARLTON spoke with pt about [facility] being a non smoking facility. Pt states that he will be able to handle not being able to smoke while at the facility. Pt states I've been here for a week and haven't been able to smoke. CARLTON informed pt that his stay at [facility] would be longer than week and asked pt if he would be ok with not being able to smoke. CARLTON asked pt if he would like this worker to check with [facility] to see if they would take pt if pt feels he is unable to handle not being able to smoke. Per pt he would like to stay with [facility] and states that he will be able to not smoke while at the facility. CARLTON faxed updated clinicals and pt/ot/and wound care notes to Joselyn at [facility] and placed a call to her informing her that pt states he will be able to handle not being able to smoke while at facility and to start pre-cert. Plan: [facility] pending pre-cert Glendy Maher CHECK WRITER, OVERHAULER HELPER
--- NOTE | 2017-07-16 17:24 | OP.PCM_ITS ---
Problem List (1) Type 2 diabetes mellitus with foot ulcer Status: Acute (2) Type 2 diabetes mellitus with foot ulcer Status: Acute Report of Operation Date of Procedure: 07/16/17 Pre-Operative Diagnosis: diabetic foot infection with abscess, left foot Post-Operative Diagnosis: diabetic foot infection with abscess Surgery/Procedure Performed:: first ray resection and partial closure of left foot wound Description of Surgical Findings:: Patient is a 61 year old male who recently underwent 1st ray resection of left foot. Intra-operative cultures from recent surgery confirm presence of osteomyelitis. He has been seen by infectious disease who plan on treating him with 6 weeks IV antibiotics. His left foot has been packed open and daily irrigation has been performed. Yesterday, his left foot was showing necrosis of distal medial incision and dorsal lateral incision. I had long discussion with patient regarding the necrotic appearance of his foot. I specifically informed patient that given this current finding, delayed closure is likely unable to be fully obtained and he will likely require a wound vac. I did discuss alternative options with patient not limited to more proximal amputation not limited to transmetatarsal or chopart amputation. Patient is not interested in any further amputation and would rather elect for wound vac. Patient also informed of options not limited to below knee amputation. While this option interests him, most notably because of his ankle pain, he would like one last attempt to salvage this foot. If this procedure fails to result in healing of wound, he may consider bka at a later time. I did inform patient that if he elects for wound debridement and wound vac application, he will likely require wound vac for considerable d uration. He was informed that this wound may take several months to fully heal. Patient informed of risks of this procedure not limited to failure to heal this wound, need for more proximal amputation not limited to tma or chopart or even bka. Other risks obviously include transfer lesions discussed prior to his last operation, hematoma, cardiac arrest, . Patient understands this procedure is being done with attempts to salvage his left lower leg. By no means was any guarantee expressed. All questions have been answered, consent has been signed. Patient was transferred from pre-op holding area to operating room and placed on operating room table in supine position. He was placed under mac anesthesia. The left foot was prepped and draped in usual aseptic technique. Time out was performed making note of procedure and personal involved. Local field block was injected to left foot. Attention was then directed to the left foot. Necrotic tissue of left medial incision and left dorsal incision was performed. Debridement was performed thru dermis epidermis and subcutaneous tissue. Full excisional debridement was performed with 15 blade. All necrotic tissue was debrided. Incision was carried proximally. Using a sagittal saw, approximately 1 cm of bone was further resected. Resection was carried with sagittal saw orientated proximal medial to distal lateral and slightly beveled from superior to inferior to prevent plantar prominence. No purulence was noted throughout case. All nonviable soft-tissue and bone was excised. Sesamoids had already been excised from recent surgery. The wound was then irrigated with 3000 cc of normal saline with pulse lavage. Clean instrumentation was exchanged. A post- lavage culture of remaining metatarsal was sent for pathology and micro. The plantar skin was debrided of hyperkeratotic tissue. The proximal incision was then reapproximated with 2-0 vicryl and 2-0 nylon. The wound was able to be closed with remaining wound that measured 2.5 cm x 3.0 cm x 0.3 cm. Wound vac was not applied because of bleeding but will likely be applied tomorrow. Adaptic was applied to wound. 4x4, sherry and abd followed by philip was applied to left foot. Patient was awakend and found to be in stable condition. Will readmit patient to floor. Likely wound vac application tomorrow. Recommend snf placement as patient lives alone. Pending final cultures and final antibiotic elected by ID, ok for discharge once snf placed. assistant professor of economics: Carlos Duarte Type of Anesthesia:: Local MAC Specimen's removed: 1st metatarsal for pathology and micro (pre and post lavage was obtained) Estimated Blood Loss (mL): 50 ml
--- NOTE | 2017-07-16 17:24 | PCM.PN.SRG ---
Patient Problems: Active and Suspected Problems Nausea and vomiting (Acute) Redness of the left leg and foot (Acute) Type 2 diabetes mellitus with foot ulcer (Acute) Type 2 diabetes mellitus with foot ulcer (Acute) Subjective: Patient seen at bedside this afternoon with no complaints Objective: patient alert and orientated x 3. nad left foot with surgical dressing clean and dry. surgical dressing removed. skin appears healthy and viable with no signs of infection. proximal incision is approximated nicely without dehiscence. there is wound to distal incision that measures ~3.0 cm x 2.8 cm x 0.5 cm depth. there is no local signs of infection. ulceration is granular in appearance. no exposed bone. left foot appears stable. no pressure sores of left heel. - Physical Exam Vital Signs Temp Pulse Resp BP Pulse Ox 98.5 F 69 16 138/71 H 98 07/16/17 14:25 07/16/17 14:25 07/16/17 14:25 07/16/17 14:25 07/16/17 14:25 Oxygen Delivery Method Room Air Weight: 101.1 kg Body Mass Index (BMI) 29.4 Finger Stick Blood Glucose 95 Intake and Output for Last 24 Hours 07/14/17 07/15/17 07/16/17 23:59 23:59 23:59 Intake Total 5514 / 5514 4453 / 4453 2838 / 2838 Output Total 2400 / 2400 2550 / 2550 4025 / 4025 Balance 3114 / 3114 1903 / 1903 -1187 / -1187 Microbiology Past 72 Hours 07/15/17 Unknown Gram Stain - Final Bone - Left Foot Wound Culture - Preliminary No growth-Final to follow 07/11/17 16:54 Gram Stain - Final Bone - Toe Wound Culture - Final Streptococcus group G 07/11/17 16:54 Gram Stain - Final Bone - Toe Wound Culture - Final Streptococcus group G Anaerobic Culture - Final No anaerobic bacteria isolated. Laboratory Tests Past 24 Hrs 07/15/17 07/16/17 23:15 09:50 Sodium 142 Potassium 3.3 L Chloride 113 H Carbon Dioxide 22.0 Anion Gap 7 BUN 10 Creatinine 0.85 Estim Creat Clear Calc 101.83 Est GFR (MDRD) Af Amer 117 Est GFR (MDRD) Non-Af 97 BUN/Creatinine Ratio 11.8 Glucose 142 H Calcium 8.3 L Vancomycin Trough 15.7 H Medical Necessity - Tobacco Use Smoking Status: Current every day smoker Tobacco Use: Cigarettes Assessment/Plan Active and Suspected Problems Nausea and vomiting (Acute) Redness of the left leg and foot (Acute) Type 2 diabetes mellitus with foot ulcer (Acute) Type 2 diabetes mellitus with foot ulcer (Acute) patient is one day s/p partial closure. wound today evaluated. wound appears healthy and stable. very pleased how wound looks today. will apply wound vac. will plan on using wound vac to assist in granulation tissue and to decrease depth of wound. patient is stable from podiatry and can discharge to rehab once medically stable, bed is available and antibiotic arranged. will have wound nurse change on mondays, friday and fridays. I will check in with patient tomorrow but likely can follow on days wound vac is changed
[2017-07-16] MEDS: Atorvastatin Calcium 80 MG Tablet PO (22:22)
[2017-07-16] MEDS: Temazepam 15 MG Capsule PO (22:27)
[2017-07-17 03:01] VITALS: BP 130/81; PULSE 70; RESP 18; TEMP 36.6; O2SAT 94
[2017-07-17] MEDS: Levothyroxine 75 MCG Tablet PO (05:32)
[2017-07-17] MEDS: 0.9% NaCl Peripheral Flush Adult/Peds IV (05:33)
[2017-07-17] MEDS: metroNIDAZOLE 500 MG Tablet PO ×3 (05:33→23:04)
[2017-07-17] MEDS: Heparin Injection (Vial) 5,000 UNIT/ML VIAL 5000 UNIT SC ×3 (05:33→23:05)
[2017-07-17 06:12] LABS: Anion Gap 7 (5-15); BUN 9 mg/dL (7-18); BUN/Creat Ratio 12.3 RATIO (10-20); Calcium,Total 8.2 mg/dL (8.5-10.1); Chloride 112 mmol/L (98-107); Creatinine, Serum 0.73 mg/dL (0.70-1.30); EST Glomerular Filtration Rate 115 mL/min (>60); Est Glom Filt Rate - Afr Amer 139 mL/min (>60); Estimated Creatinine Clearance 118.57 ml/min; Glucose 97 mg/dL (74-106); Potassium 3.6 mmol/L (3.5-5.1); Sodium Level 143 mmol/L (136-145)
[2017-07-17] MEDS: 0.9% Normal Saline 1,000 ML 75 ML IV (07:21)
--- NOTE | 2017-07-17 07:57 | PCM.PN.SRG ---
Patient Problems: Active and Suspected Problems Nausea and vomiting (Acute) Redness of the left leg and foot (Acute) Type 2 diabetes mellitus with foot ulcer (Acute) Type 2 diabetes mellitus with foot ulcer (Acute) Subjective: patient seen this morning at bedside. no complaints. wound vac intact and maintaining neg pressure. Objective: patient alert and orientated x 3. no acute distress wound vac intact and maintaining good seal - Physical Exam Vital Signs Temp Pulse Resp BP Pulse Ox 97.9 F 70 18 130/81 H 94 07/17/17 03:01 07/17/17 03:01 07/17/17 03:01 07/17/17 03:01 07/17/17 03:01 Oxygen Delivery Method Room Air Weight: 101.1 kg Body Mass Index (BMI) 29.4 Finger Stick Blood Glucose 95 Intake and Output for Last 24 Hours 07/15/17 07/16/17 07/17/17 23:59 23:59 23:59 Intake Total 4453 / 4453 3997 / 3997 1823 / 1823 Output Total 2550 / 2550 5125 / 5125 1750 / 1750 Balance 1903 / 1903 -1128 / -1128 73 / 73 Microbiology Past 72 Hours 07/15/17 Unknown Gram Stain - Final Bone - Left Foot Wound Culture - Preliminary No growth-Final to follow 07/11/17 16:54 Gram Stain - Final Bone - Toe Wound Culture - Final Streptococcus group G 07/11/17 16:54 Gram Stain - Final Bone - Toe Wound Culture - Final Streptococcus group G Anaerobic Culture - Final No anaerobic bacteria isolated. Laboratory Tests Past 24 Hrs 07/16/17 07/17/17 09:50 05:36 Sodium 142 143 Potassium 3.3 L 3.6 Chloride 113 H 112 H Carbon Dioxide 22.0 24.0 Anion Gap 7 7 BUN 10 9 Creatinine 0.85 0.73 Estim Creat Clear Calc 101.83 118.57 Est GFR (MDRD) Af Amer 117 139 Est GFR (MDRD) Non-Af 97 115 BUN/Creatinine Ratio 11.8 12.3 Glucose 142 H 97 Calcium 8.3 L 8.2 L Medical Necessity - Tobacco Use Smoking Status: Current every day smoker Tobacco Use: Cigarettes Assessment/Plan Active and Suspected Problems Nausea and vomiting (Acute) Redness of the left leg and foot (Acute) Type 2 diabetes mellitus with foot ulcer (Acute) Type 2 diabetes mellitus with foot ulcer (Acute) patient stable and doing well with wound vac will continue this for next few weeks until further advanced wound care can be instituted continue antibiotics per id continue partial weightbearing with surgical shoe and walker ok for discharge to rehab once medically stable and antibiotic arranged
[2017-07-17 08:28] VITALS: PULSE 64
[2017-07-17] MEDS: Metoprolol Tartrate 25 MG Tablet PO ×2 (08:28→23:04)
[2017-07-17] MEDS: Gabapentin 800 MG Tablet PO ×3 (08:28→17:18)
[2017-07-17] MEDS: Ferrous Sulfate 325 MG Tablet PO (08:28)
[2017-07-17] MEDS: Folic Acid 1 MG Tablet PO (08:29)
[2017-07-17] MEDS: Ascorbic Acid 500 MG Tablet PO ×2 (08:29→17:18)
[2017-07-17] MEDS: Clopidogrel Bisulfate 75 MG Tablet PO (08:29)
[2017-07-17] MEDS: Aspirin 81 MG TAB.CHEW PO (08:29)
[2017-07-17] MEDS: Multivitamins,Therapeutic Tablet 1 TABLET PO (08:29)
[2017-07-17] MEDS: Pantoprazole Sodium 40 MG Tablet PO (08:29)
[2017-07-17 08:30] VITALS: BP 134/81; PULSE 56; RESP 18; TEMP 36.9; O2SAT 94
--- NOTE | 2017-07-17 08:53 | PCM.PN.HOSP ---
Patient Problems: Active and Suspected Problems Nausea and vomiting (Acute) Redness of the left leg and foot (Acute) Type 2 diabetes mellitus with foot ulcer (Acute) Type 2 diabetes mellitus with foot ulcer (Acute) Subjective: Patient was seen and examined. Denies any complains. Had 2 loose stools this morning. No fever or chills. Had PICC line yesterday. Objective: Physical exam: General: Alert, Oriented x3, Cooperative, No apparent distress, not pale, not jaundiced HEENT: Atraumatic, PERRLA, EOMI, Normocephalic Oral: Moist Mucosa Neck: Supple Lungs: Clear to auscultation, Normal air movement Cardiovascular: Regular rate, Regular Rhythm, Normal S1, Normal S2, No murmurs Abdomen: Bowel Sounds Present, Soft, Non Tender, Non-Distended, No Hepato-splenomegaly Extremities: No edema, wound dressing over the left ankle and foot with erythema but no differential warmth, AMIE wraps to left foot. Skin: No rashes, No breakdown Musculoskeletal: No Tenderness to Palpation of Joints or Extremities Lymphatic: No Cervical, Supraclavicular, or Inguinal Adenopathy Neurological: Cranial nerves II-XII grossly intact Psych/Mental Status: Normal Affect, Appropriate Vitals/I&O's: Vital Signs Temp Pulse Resp BP Pulse Ox 97.9 F 64 18 130/81 H 94 07/17/17 03:01 07/17/17 08:28 07/17/17 03:01 07/17/17 03:01 07/17/17 03:01 Oxygen Delivery Method Room Air Weight: 101.1 kg Body Mass Index (BMI) 29.4 Finger Stick Blood Glucose 95 Intake and Output for Last 24 Hours 07/15/17 07/16/17 07/17/17 23:59 23:59 23:59 Intake Total 4453 / 4453 3997 / 3997 1823 / 1823 Output Total 2550 / 2550 5125 / 5125 1750 / 1750 Balance 1903 / 1903 -1128 / -1128 73 / 73 Microbiology Past 72 Hours 07/11/17 16:54 Bone - Toe Gram Stain - Final 07/11/17 16:54 Bone - Toe Wound Culture - Final Streptococcus group G 07/11/17 16:54 Bone - Toe Anaerobic Culture - Final No growth in 5 days. 07/15/17 Unknown Bone - Left Foot Gram Stain - Final 07/15/17 Unknown Bone - Left Foot Wound Culture - Preliminary No growth-Final to follow 07/11/17 16:54 Bone - Toe Gram Stain - Final 07/11/17 16:54 Bone - Toe Wound Culture - Final Streptococcus group G 07/11/17 16:54 Bone - Toe Anaerobic Culture - Final No anaerobic bacteria isolated. Laboratory Results 07/16/17 09:50: Sodium 142, Potassium 3.3 L, Chloride 113 H, Carbon Dioxide 22.0, Anion Gap 7, BUN 10, Creatinine 0.85, Estim Creat Clear Calc 101.83, Est GFR (MDRD) Af Amer 117, Est GFR (MDRD) Non-Af 97, BUN/Creatinine Ratio 11.8, Glucose 142 H, Calcium 8.3 L 07/17/17 05:36: Sodium 143, Potassium 3.6, Chloride 112 H, Carbon Dioxide 24.0, Anion Gap 7, BUN 9, Creatinine 0.73, Estim Creat Clear Calc 118.57, Est GFR (MDRD) Af Amer 139, Est GFR (MDRD) Non-Af 115, BUN/Creatinine Ratio 12.3, Glucose 97, Calcium 8.2 L Current Medications Acetaminophen (Tylenol) 650 mg PO Q6H PRN PRN PRN Reason: PAIN Last Admin: 07/16/17 05:16 Dose: 650 mg Ascorbic [facility] ([facility]itamin C) [facility] Last Admin: 07/17/17 08:29 Dose: 500 mg Aspirin (Aspirin, Baby) 81 mg PO DAILY@0800 [facility] Last Admin: 07/17/17 08:29 Dose: 81 mg Atorvastatin Calcium (Lipitor) 80 mg PO QHS [facility] Last Admin: 07/16/17 22:22 Dose: 80 mg Baclofen (Lioresal) 10 mg PO BID PRN PRN PRN Reason: MUSCLE SPASM Last Admin: 07/11/17 22:55 Dose: 10 mg Clopidogrel Bisulfate (Plavix) 75 mg PO DAILY [facility] Last Admin: 07/17/17 08:29 Dose: 75 mg Ferrous Sulfate (Ferrous Sulfate) 325 mg PO DAILY@0800 [facility] Last Admin: 07/17/17 08:28 Dose: 325 mg Folic Acid (Folic Acid) [facility] Last Admin: 07/17/17 08:29 Dose: 1 mg Gabapentin (Neurontin) 800 mg PO TIDCM [facility] Last Admin: 07/17/17 08:28 Dose: 800 mg Heparin Sodium (Porcine) (Heparin Na) 5,000 unit SC Q8 [facility] Last Admin: 07/17/17 05:33 Dose: 5,000 units Ciprofloxacin (Cipro) 400 mg in 200 mls @ 200 mls/hr IV Q12 [facility] Last Admin: 07/16/17 22:21 Dose: 200 mls/hr Vancomycin HCl 2,000 mg/ (Sodium Chloride) 540 mls @ 260 mls/hr IV Q12H [facility] Last Admin: 07/17/17 00:05 Dose: 260 mls/hr Sodium Chloride () 1,000 mls @ 75 mls/hr IV .[id number] [facility] Last Admin: 07/17/17 07:21 Dose: 75 mls/hr Lactobacillus Acidophilus (Acidophilus) 2 tablet PO 4X/DAY [facility] Levothyroxine Sodium (Synthroid) 75 mcg PO DAILY@0600 [facility] Last Admin: 07/17/17 05:32 Dose: 75 mcg Metoprolol Tartrate (Lopressor (Beta Alisha)) 25 mg PO BID [facility] Last Admin: 07/17/17 08:28 Dose: 25 mg Metronidazole (Flagyl) 500 mg PO TID [facility] Last Admin: 07/17/17 05:33 Dose: 500 mg Multivitamins (Multivitamin) 1 [facility] Last Admin: 07/17/17 08:29 Dose: 1 tablet Nitroglycerin (Nitrostat) 0.4 mg SUBLINGUAL Q5M PRN PRN Reason: Chest Pain Nutritional Formula (Robert - Saunders Flavor) 1 [facility] Last Admin: 07/17/17 08:29 Dose: 1 packet Ondansetron HCl (Zofran) 4 mg IV Q6H PRN PRN PRN Reason: NAUSEA Pantoprazole Sodium (Protonix) 40 mg PO DAILY [facility] Last Admin: 07/17/17 08:29 Dose: 40 mg Sodium Chloride () 5 - 30 ml IV UD PRN PRN Reason: SALINE FLUSH Last Admin: 07/17/17 05:33 Dose: 30 ml Temazepam (Restoril) 15 mg PO QHS [facility] Last Admin: 07/16/17 22:27 Dose: 15 mg Zinc Sulfate (Zinc Sulfate) 220 mg PO DAILY [facility] Last Admin: 07/17/17 08:29 Dose: 220 mg Medical Necessity - Tobacco Use Smoking Status: Current every day smoker Tobacco Use: Cigarettes Assessment/Plan Active and Suspected Problems Nausea and vomiting (Acute) Redness of the left leg and foot (Acute) Type 2 diabetes mellitus with foot ulcer (Acute) Type 2 diabetes mellitus with foot ulcer (Acute) 61-year-old male with multiple co-morbidities admitted with left lower extremity cellulitis, status post I & D, first ray resection on 07/11/17, 1. Left foot cellulitis, infected nonhealing wound, cultures growing E. coli, Enterobacter, Streptococcus, status post I & D, first ray resection on 07/11/17, as well as further I&D done on 07/15/2017, initially no osteomyelitis on MRI, bone cultures are growing Streptococcus group G, wound VAC placed. Repeat cultures from the toes are negative. ID consulted, plans on 6 weeks of IV Cipro, Flagyl PO, vancomycin IV. 2. PAD, no intervention is planned, on aspirin, statin 3. Type 2 DM, diet controlled, blood sugars are stable 4. CAD s/p CABG, on aspirin, statin 5. Hypertension, controlled, on metoprolol 6. Hypothyroidism, on levothyroxine 7. Peripheral neuropathy, likely diabetic related, on gabapentin 8. DVT PPx -Heparin subcu 9. Disposition: Waiting on precert for dc to SNF for rehab. Code Visit Inpatient E&M: 46976 Subs Hosp L2
[2017-07-17] MEDS: Ciprofloxacin 400 MG/200 ML BAG 200 MG IV ×2 (09:30→23:04)
[2017-07-17 14:10] VITALS: BP 135/78; PULSE 65; RESP 18; TEMP 36.6; O2SAT 98
--- NOTE | 2017-07-17 14:15 | CASEMGMT ---
Social Work Note CARLTON received call from Joselyn at [facility]. Per Joselyn she went to submit pre-cert for pt and pt's insurance sent her a packet of questions that she has to fill out regarding pt. Joselyn called this SW to ask questions regarding pt and to have this worker fax over updated clinicals. CARLTON answered questions for Joselyn and faxed over updated clinicals. Joselyn state that she will submit the questions today and is hopeful that she will obtain pre-cert tomorrow. CARLTON will continue to follow along and assist with discharge planning. Plan: Discharge to [facility] pending pre-cert Glendy Maher CHIEF TECHNOLOGY OFFICER, DRIVER GUIDE
--- NOTE | 2017-07-17 16:31 | CASEMGMT ---
Social Work Note SW received a call from Amara Fuentes with [place], pt's insurance, that [facility] is not in network with pt's insurance. Per Amara, the SNF that are in network with pt's insurance in [place] are [facility] and [facility]. It should be noted that per this worker's conversation with Joselyn at [facility] they were going to accept pt pending pre-cert so this worker didn't know [facility] was not in network with pt's insurance till message from Amara Fuentes. SW met with pt to inform him of this and to ask for pt's other choices. SW informed pt that pt's second choice of [facility] is not in pt's insurance network either. Per pt he is agreeable to this worker sending referrals to both [facility] and [facility] to see if they are able to accept pt. SW will fax referrals to [facility] and [facility] tomorrow. Plan: TBD. Either [facility] or [facility] pending acceptance and pre-cert Glendy Maher FEATHER SEPARATOR, PIPE FITTER APPRENTICE
[2017-07-17 19:59] VITALS: BP 141/89; PULSE 66; RESP 16; TEMP 37.1; O2SAT 98
[2017-07-17 23:04] VITALS: PULSE 83
[2017-07-17] MEDS: Atorvastatin Calcium 80 MG Tablet PO (23:04)
[2017-07-17] MEDS: Temazepam 15 MG Capsule PO (23:05)
[2017-07-17] MEDS: Baclofen 10 MG Tablet PO (23:05)
[2017-07-17 23:52] LABS: Vancomycin, Trough Level 17.4 ug/mL (5.0-15.0)
[2017-07-18] MEDS: 0.9% Normal Saline 1,000 ML 75 ML IV (00:38)
[2017-07-18 04:41] VITALS: BP 130/71; PULSE 60; RESP 18; TEMP 37.1; O2SAT 94
[2017-07-18] MEDS: Heparin Injection (Vial) 5,000 UNIT/ML VIAL 5000 UNIT SC ×2 (04:56→14:20)
[2017-07-18] MEDS: Levothyroxine 75 MCG Tablet PO (04:56)
[2017-07-18] MEDS: metroNIDAZOLE 500 MG Tablet PO ×2 (04:56→14:19)
--- NOTE | 2017-07-18 07:15 | PHA.PHARE_ITS ---
Consult Pharmacy has been consulted to manage selected antiobiotic: Vancomycin Type of Consult: Follow-up Suspected Infection: Osteomyelitis Prior Doses of Antibiotics Received/Current Regimen: VANCOMYCIN 2G IV Q12HR: 07/17 @1141, 07/18 @0037 Labs: Sodium 143 mmol/L (136-145) 07/17/17 05:36 Potassium 3.6 mmol/L (3.5-5.1) 07/17/17 05:36 Chloride 112 mmol/L (98-107) H 07/17/17 05:36 Carbon Dioxide 24.0 mmol/L (21.0-32.0) 07/17/17 05:36 Anion Gap 7 (5-15) 07/17/17 05:36 BUN 9 mg/dL (7-18) 07/17/17 05:36 Creatinine 0.73 mg/dL (0.70-1.30) 07/17/17 05:36 Est GFR (MDRD) Af Amer 139 mL/min (>60) 07/17/17 05:36 Est GFR (MDRD) Non-Af 115 mL/min (>60) 07/17/17 05:36 BUN/Creatinine Ratio 12.3 RATIO (10-20) 07/17/17 05:36 Glucose 97 mg/dL (74-106) 07/17/17 05:36 Vancomycin Trough 17.4 ug/mL (5.0-15.0) H 07/17/17 23:12 Microbiology: Microbiology 07/11/17 16:54 Bone - Toe Gram Stain - Final 07/11/17 16:54 Bone - Toe Wound Culture - Final Streptococcus group G 07/11/17 16:54 Bone - Toe Anaerobic Culture - Final No growth in 5 days. 07/15/17 Unknown Bone - Left Foot Gram Stain - Final 07/15/17 Unknown Bone - Left Foot Wound Culture - Preliminary No growth-Final to follow 07/11/17 16:54 Bone - Toe Gram Stain - Final 07/11/17 16:54 Bone - Toe Wound Culture - Final Streptococcus group G 07/11/17 16:54 Bone - Toe Anaerobic Culture - Final No anaerobic bacteria isolated. 07/10/17 08:10 Wound - Left Foot Gram Stain - Final 07/10/17 08:10 Wound - Left Foot Wound Culture - Final Escherichia coli Enterobacter cloacae complex Streptococcus agalactiae (B) Corynebacterium amycolatum/xer 07/12/17 10:15 Stool Stool Occult Blood (JORDY) - Final Weight used for dosin.1 kg Estimated Creatinine Clearance: 118ML/MIN Goal Trough: 15-20 mcg/mL Pharmacy Plan for Drug Dosing: Pharmacy to manage vancomycin per consult for the treatment of osteomyelitis per ID. ID consulted, and the patient will be on abx for 6 weeks until 08/26/17 for treatment. The patient had a trough which resulted in a value of 17.4 ( drawn 11.5hrs from last dose). At present, this is adequate therapy to target a trough of 15-20, will continue current regimen. PLAN/RECOMMENDATIONS 1. Continue vancomycin 2g IV Q12hrs 2. Trough scheduled for 07/25/17 @1130 (will check trough weekly). If renal function changes, will order a trough more frequently 3. Pharmacy will continue to monitor the patient on a daily basis and make changes as appropriate.
[2017-07-18 07:59] VITALS: BP 144/72; PULSE 72; RESP 18; TEMP 36.6; O2SAT 96
[2017-07-18] MEDS: Aspirin 81 MG TAB.CHEW PO (08:01)
[2017-07-18] MEDS: Folic Acid 1 MG Tablet PO (08:01)
[2017-07-18] MEDS: Ascorbic Acid 500 MG Tablet PO (08:01)
[2017-07-18] MEDS: Ferrous Sulfate 325 MG Tablet PO (08:01)
[2017-07-18] MEDS: Multivitamins,Therapeutic Tablet 1 TABLET PO (08:01)
[2017-07-18] MEDS: Pantoprazole Sodium 40 MG Tablet PO (08:01)
[2017-07-18 08:02] VITALS: BP 144/72; PULSE 72
[2017-07-18] MEDS: Gabapentin 800 MG Tablet PO ×2 (08:02→11:42)
[2017-07-18] MEDS: Metoprolol Tartrate 25 MG Tablet PO (08:02)
[2017-07-18] MEDS: Clopidogrel Bisulfate 75 MG Tablet PO (08:03)
[2017-07-18] MEDS: Ciprofloxacin 400 MG/200 ML BAG 200 MG IV (08:06)
--- NOTE | 2017-07-18 08:52 | CASEMGMT ---
Social Work Note SW faxed referrals to [facility] and [facility]. SW placed call to Joselyn at [facility] informing her that pt is agreeable to sending referrals to other facilities. SW placed call and left a message for Amanda at [facility] and Emy at [facility] informing them of referral and to let this worker know if they are able to accept. SW waiting to hear back from [facility] or [facility] if they are able to accept pt. Plan: [facility] or [facility] pending acceptance Glendy Maher PROGRAM PROPOSALS COORDINATOR, DIRECTOR DIGITAL ADVERTISING
--- NOTE | 2017-07-18 09:37 | PCM.TXEXTCAR ---
- Diet 07/15/17 17:32 Diet: Carbohydrate Controlled Is pt able to select menu?: Yes - Routine Orders/Code Status Routine Lab Work: CBC - 1 week, BMP - 1 week, - - Liver function test, ESR - weekly, vancomycin trough before every 3rd dose, whilst on vancomycin Code Status: Full Code - Wound(s) LEFT FOOT Wound Type: Surgical Incision Dressing Change: 4X4, ABD, MARIAN, AMIE - Therapies Weight Bearing: Non weight bearing Extremity Affected:: Left Lower Physical Therapy: Eval and Treat Occupational Therapy: Eval and Treat - Allergies/Procedures Done in Hospital Allergies/Adverse Reactions: Allergies colesevelam HCl [From WelChol] Allergy (Verified 07/09/17 17:43) Rash dicyclomine Allergy (Verified 07/09/17 17:43) Rash divalproex sodium [From Depakote] Allergy (Verified 07/09/17 17:43) Unknown rofecoxib [From Vioxx] Allergy (Verified 07/09/17 17:43) Rash Procedures: Wound Vac placement, - - s/p left foot surgeries, s/p 1st ray resection - Type of Care/Length of Stay Estimated LOS: Convalescent Care Less Than 30 days Type of Care Needed: Skilled Rehab Potential: Good Prognosis: Good - Additional Orders/Day of Discharge Day of Discharge: 07/18/17 - Dietary and Speech Recommendations Dietitian Recommendations/Changes: Rec 2200 calorie diet when medically able. Rec continue Robert 1 packet BID from pharmacy for wound healing. - Follow Up Care Primary Care Physician: Clement Buckner MD [Primary Care Provider] - Please follow up with your Primary Care Physician in: within 2 weeks of discharge Please Follow Up With: Carlos Duarte DPM When: within 2 weeks in the wound center Please Follow Up With: Daniel Almendarez MD When: within 2 weeks
--- NOTE | 2017-07-18 10:12 | CASEMGMT ---
Social Work Note CARLTON received call from Swapna at [facility] stating that they have beds available and they are able to accept pt. CARLTON informed Swapna that pt is ready for discharge and to begin pre-cert. Per Swapna, she will begin pre-cert today. CARLTON placed a call to Amara Alfredo with [employer] to inform her that [facility] is able to accept pt. Amara states that she will expedite the pre-cert and she is hopeful that they will get pre-cert back this afternoon. CARLTON updated Wound Nurse Mary of this. Plan: [facility] pending pre-cert Glendy Maher ELECTRIC ORGAN ASSEMBLER, BOTTLE CASER
--- NOTE | 2017-07-18 10:21 | CASEMGMT ---
Social Work Note SW received call from Swapna at [facility] requesting updated PT/OT notes. CARLTON faxed updated PT/OT notes to [facility]. Plan: [facility] pending pre-cert Glendy JOHNSON, REGIONAL SALES LEADER
--- NOTE | 2017-07-18 11:42 | CASEMGMT ---
Social Work Note SW received call from Amanda at [facility] that they are unable to accept pt. CARLTON received call from Joselyn at [facility] asking for this worker to call her back to update her if pt has been accepted at a facility so she can shred the paperwork. CARLTON placed a call to Joselyn at [facility] updating her that pt has been accepted to a different facility. Joselyn states that she will shred the paperwork on pt. Plan: [facility] pending pre-cert Glendy Maher INSPECTOR ALIGNING, MECHANICAL DRAWING TEACHER
--- NOTE | 2017-07-18 12:31 | PCM.DC.SUM ---
Discharge Date and Diagnosis Date of Admission: 07/09/17 Date of Discharge: 07/18/17 - Primary Discharge Diagnosis Active and Suspected Problems Nausea and vomiting (Acute) Redness of the left leg and foot (Acute) Left foot cellulitis, nonhealing ulcer Left foot osteomyelitis Type 2 diabetes mellitus with foot ulcer (Acute) Type 2 diabetes mellitus with foot ulcer (Acute) - Secondary Discharge Diagnosis Chronic Problems Hypothyroidism (Chronic) History of hyperlipidemia (Chronic) History of gastroesophageal reflux (GERD) (Chronic) Deep venous thrombosis of upper extremity (Chronic) CAD (coronary artery disease) (Chronic) Benign essential hypertension (Chronic) Hospital Course and Treatment Imaging Results: Clinical Impression(s) from Imaging Studies Chest X-Ray 07/09/17 19:25 IMPRESSION: Left basilar scarring or trace effusion. Status post CABG surgery. Right lung is clear. at 2009 Reported and signed by: Sheyla Peralta MD Electronically Signed: Sheyla Peralta MD at 20:07 EDT Tel , Service support , Lower Extremity MRI 07/10/17 05:55 IMPRESSION: Focal fluid collection deep to the skin ulcer adjacent to the first metatarsal head, likely an abscess. No demonstrated osteomyelitis. Electronically Signed: Jose Francisco Chang MD at 10:49 EDT Tel , Service support , ADDENDUM: 07/10/17 1309 Lower Extremity MRI 07/10/17 12:56 IMPRESSION: Persistent focal fluid collection deep to the skin ulcer at the distal aspect of the first metatarsal most suggestive of an abscess. Electronically Signed: Jose Francisco Chang MD at 14:58 EDT Tel , Service support , Foot X-Ray 07/11/17 17:11 IMPRESSION: Postoperative changes from removal of the left first metatarsal head with overlying soft tissue swelling and small air inclusions, presumably postoperative. at 2044 Reported and signed by: Sheyla Peralta MD Electronically Signed: Sheyla Peralta MD at 20:42 EDT Tel , Service support , Foot X-Ray 07/15/17 17:15 IMPRESSION: Transmetatarsal amputation of the first toe. Mild soft tissue swelling of the foot. Electronically Signed: Ben Ying DO at 18:22 EDT Tel [phone], Service support , Consultations 07/09/17 23:09 Consult: Onc/Wound/pottery decorator Routine Comment: Reason for Consult:: WOUND ON LEFT FOOT. Operations: - - Status post extensive wound debridement and IND Procedures: PICC line placement Summary of Care Provided: 61-year-old male with multiple co-morbidities admitted with left lower extremity cellulitis and is status post I & D, first ray resection on 07/11/17, 1. Left foot cellulitis, infected chronic nonhealing wound, osteomyelitis, cultures growing E. coli, Enterobacter, Streptococcus, status post I & D, first ray resection on 07/11/17, as well as further I&D done on 07/15/2017, initially no osteomyelitis on MRI, but bone cultures are growing Streptococcus group G, of osteomyelitis. wound VAC placed. Infectious disease consulted, PICC line placed, and discharged on 6 weeks of IV Cipro, Flagyl PO, vancomycin IV. Psychiatry, infectious disease in the outpatient 2. PAD, seen by vascular surgery, no intervention is planned, on aspirin, statin 3. Type 2 DM, diet controlled, blood sugars are stable 4. CAD s/p CABG, on aspirin, statin 5. Hypertension, controlled, on metoprolol 6. Hypothyroidism, on levothyroxine 7. Peripheral neuropathy, likely diabetic related, on gabapentin Discharge Diet: Low fat/ Low Cholesterol, 2000 Calorie Control Diet, 2000 mg Sodium Diet Weight Bearing Status: No weight bearing Home Medications: Medications to take at Discharge Fluticasone 0.05% [Flonase Nasal [place]] 2 spray NASAL DAILY PRN 09/01/13 Folic Acid 1 mg PO BID 09/01/13 Gabapentin 900 mg PO TID 09/01/13 Levothyroxine [Synthroid] 75 mcg PO DAILY 09/01/13 Metoprolol Tartrate 25 mg PO BID 09/01/13 Omeprazole 20 mg PO BID 09/01/13 Rosuvastatin Calcium [Crestor] 40 mg PO QHS 09/01/13 Temazepam 15 mg PO PRN PRN 09/01/13 Aspirin 325 mg PO DAILY@0800 07/09/17 Baclofen [Lioresal] 1 tab PO BID PRN 07/09/17 Clopidogrel Bisulfate [Plavix] 75 mg PO DAILY 07/09/17 Vancomycin 2,000 mg IV Q12H 40 Days #80 vial 07/16/17 Ascorbic Acid [Vitamin C] 500 mg PO BIDCM tablet 07/18/17 Ciprofloxacin [Cipro IVPB] 400 mg IV Q12 bag 07/18/17 Ferrous Sulfate 325 mg PO DAILY@0800 tablet 07/18/17 Lactobacillus Acidophilus [Acidophilus] 2 tablet PO 4X/DAY tablet 07/18/17 Metronidazole [Flagyl] 500 mg PO TID tablet 07/18/17 Multivitamins,Therapeutic [Multivitamin] 1 tablet PO DAILYCM tablet 07/18/17 Nitroglycerin [Nitrostat] 0.4 mg SUBLINGUAL Q5M PRN tablet 07/18/17 Nutritional Supplement [Robert - ORANGE FLAVOR] 1 packet PO BIDCM packet 07/18/17 Zinc Sulfate (50mg elemental) [Zinc Sulfate] 220 mg PO DAILY capsule 07/18/17 Following Prescrptions Were Given to Patient: Vancomycin 2,000 mg IV Q12H 40 Days #80 vial Primary Care Physician: Clement Buckner MD [Primary Care Provider] - Please follow up with your Primary Care Physician in: within 2 weeks of discharge Please Follow Up With: Carlos Duarte DPM When: within 2 weeks in the wound center Please Follow Up With: Daniel Almendarez MD When: within 2 weeks Disposition: Retirement facility Minutes spent on discharge:: 45 Patient Condition:: Stable Medical Necessity - Tobacco Use Smoking Status: Current every day smoker Tobacco Use: Cigarettes Meaningful Use Info Meaningful Use Diagnoses (Choose all that apply): None applicable Code Visit Inpatient E&M: 50864 Disch Hosp
--- NOTE | 2017-07-18 13:27 | CASEMGMT ---
Addendum entered by Glendy Maher 07/18/17 14:35: This worker asked pt if he would like this worker to call any family members to inform them of discharge to [facility]. Pt denied wanting this worker to call any family members or friends. Original Note: Addendum entered by Glendy Maher 07/18/17 13:38: SW also informed Dr. Mcguire of discharge. Original Note: Social Work Note SW received call from Swapna at [facility] stating that pre-cert was obtained and pt is able to come today. CARLTON faxed discharge paperwork to [facility] including transfer to extended care facility, signed medication list and scripts. Originals in SNF folder and copies on pt chart. CARLTON set up transportation through [facility] via wheelchair for 2:30pm. Transportation form on SNF folder. CARLTON updated pt, Emy/Swapna at [facility], and ISHA Denis of transportation time. SW informed pt that there may be a fee associated with transportation and pt states understanding. SW completed convalescent 7000 form. Pt denied additional needs or concerns at this time. Plan: Discharge to [facility] today for IV antibiotics and wound care Glendy Maher CAR WASHER, PYROGLAZER
--- NOTE | 2017-07-18 13:32 | NURSING ---
wound photo: left foot
[2017-07-18 14:17] VITALS: BP 127/72; PULSE 64; RESP 18; TEMP 36.6; O2SAT 97
== END 2017-07-18 14:33 | disposition skilled nursing facility (03) | DRG 287 ==
LOC: ED 18:48 → MS3 21:30
PROVIDERS: Anesthesiology; Internal Medicine; Internal Medicine Infectious Disease; Podiatrist Foot & Ankle Surgery; Admitting Provider Internal Medicine; Emergency Provider Emergency Medicine; Family Provider Family Medicine; PCP Family Medicine; Visit Provider Internal Medicine
PROC: 0QTP0ZZ Resection of Left Metatarsal, Open Approach (ICD-10-PCS; principal; 2017-07-11 07:20)
PROC: 0JBR0ZZ Excision of Left Foot Subcutaneous Tissue and Fascia, Open Approach (ICD-10-PCS; principal; 2017-07-15 15:15)
DX: E11.69 Type 2 diabetes mellitus with other specified complication (principal); L97.428 Non-pressure chronic ulcer of left heel and midfoot with other specified severity; L03.116 Cellulitis of left lower limb; L02.612 Cutaneous abscess of left foot; E87.1 Hypo-osmolality and hyponatremia; E86.0 Dehydration; M86.8X7 Other osteomyelitis, ankle and foot; B95.4 Other streptococcus as the cause of diseases classified elsewhere; E11.621 Type 2 diabetes mellitus with foot ulcer; E11.42 Type 2 diabetes mellitus with diabetic polyneuropathy; B96.89 Other specified bacterial agents as the cause of diseases classified elsewhere; B96.20 Unspecified Escherichia coli [E. coli] as the cause of diseases classified elsewhere; B95.1 Streptococcus, group B, as the cause of diseases classified elsewhere; I25.2 Old myocardial infarction; I10 Essential (primary) hypertension; I25.10 Atherosclerotic heart disease of native coronary artery without angina pectoris; Z95.5 Presence of coronary angioplasty implant and graft; Z95.1 Presence of aortocoronary bypass graft; E03.9 Hypothyroidism, unspecified; E78.5 Hyperlipidemia, unspecified; K21.9 Gastro-esophageal reflux disease without esophagitis; Z86.718 Personal history of other venous thrombosis and embolism; F17.210 Nicotine dependence, cigarettes, uncomplicated; Z79.82 Long term (current) use of aspirin; Z79.02 Long term (current) use of antithrombotics/antiplatelets; Z79.899 Other long term (current) drug therapy; Z91.19 Patient's noncompliance with other medical treatment and regimen; E87.6 Hypokalemia; Z89.412 Acquired absence of left great toe; I73.9 Peripheral vascular disease, unspecified
CPT/HCPCS: 36415; 36569; 71046; 73630; 73718; 76000; 80048; 80053; 80061; 80202; 81001; 82274; 82728; 82962; 83036; 83540; 83550; 83605; 83735; 84100; 84443; 85025; 85045; 85610; 85652; 85730; 86140; 87040; 87070; 87075; 87077; 87086; 87102; 87186; 87205; 87206; 87640; 88304; 88305; 88311; 93005; 93922; 97110; 97116; 97162; 97166; 97530; 97802; 99283; 99406; J7030; J7040; J7050; A4216; J0744; J2405

== ENCOUNTER → 2017-07-31 11:29 | Outpatient (CLI) | payer MEDICAID, SELFPAY ==
[2017-07-31 11:58] LABS: Vancomycin, Trough Level 16.3 ug/mL (5.0-15.0)
== END ==
PROVIDERS: Family Provider Family Medicine; PCP Family Medicine; Visit Provider Family Medicine
DX: Z79.2 Long term (current) use of antibiotics (principal)
CPT/HCPCS: 80202

== ENCOUNTER 2019-07-07 19:31 | Inpatient (IN) | payer MEDICAID, SELFPAY ==
[2019-07-07 19:31] VITALS: BP 135/68; PULSE 115; RESP 17; TEMP 37.8; O2SAT 99; BMI 23.6
[2019-07-07 20:45] VITALS: BP 132/83; PULSE 97; RESP 18; TEMP 38.1; O2SAT 99
[2019-07-07] MEDS: 0.9% Normal Saline 1,000 ML 1000 ML IV (20:52)
[2019-07-07 21:00] VITALS: BP 134/61; PULSE 95; PULSE 97; RESP 16; RESP 17; TEMP 38.1; O2SAT 100; O2SAT 98
[2019-07-07 21:16] LABS: Absolute Lymphocyte Count 1.14 X10^3/uL (0.83-4.51); Absolute Neutrophil Count 17.5 X10^3/uL (2.0-7.7); Basophil# 0.06 X10^3/uL; Basophil% 0.3 % (0-1); Eosinophil# 0.02 X10^3/uL; Eosinophils% 0.1 % (0-5); Hematocrit 42.7 % (40-54); Hemoglobin 13.6 g/dL (13.0-16.5); Lymphocyte # 1.14 X10^3/ul (4.0); Lymphocyte % 5.5 % (19-41); Mean Corp Hgb Conc 31.9 g/dL (32-36); Mean Corpuscular Hgb 26.2 pg (27.0-32.0); Mean Corpuscular Volume 82.1 fL (80-94); Mean Platelet Vol. 10.6 fl (6.2-12.0); Monocyte# 1.94 X10^3/uL; Monocyte% 9.3 % (0-10); NRBC Flagged by Analyzer 0 % (0-5); Neutrophil # 17.46 X10^3/uL (2.7-7.7); Neutrophil % 84.2 % (47-70); POSITIVE DIFFERENTIAL YES; Platelet Count 263 K/mm3 (150-450); RBC Distribution Width SD 44.9 fl (35.1-43.9); White Blood Count 20.8 K/mm3 (4.4-11.0)
[2019-07-07 21:20] LABS: Differential Indicated SCAN CRITERIA MET
--- NOTE | 2019-07-07 21:25 | RAD_ITS ---
STUDY: X-RAY - LEFT FOOT CLINICAL: Male, 63 years old. redness and infection to left foot, patient also has fever TECHNIQUE: 3 view(s) of the foot. COMPARISON: July 15, 2017 FINDINGS: Normal talus and calcaneus. There is arthritic change of the midfoot. There is amputation of the first toe at the proximal metatarsal. Normal second through fifth metatarsophalangeal joints. Normal interphalangeal joints and phalanges of the lesser toes. There is air in the plantar soft tissues of the forefoot consistent with infection. RAD/Foot min 3 Views IMPRESSION: Abnormal air in the soft tissues consistent with infection. No erosion. Amputation of the first digit. Electronically Signed: Dawson Owens MD at 22:30 EDT , Service support ,
[2019-07-07 21:40] LABS: Anion Gap 6 (5-15); BUN 8 mg/dL (7-18); BUN/Creat Ratio 8.3 RATIO (10-20); Calcium,Total 9.2 mg/dL (8.5-10.1); Chloride 96 mmol/L (98-107); Creatinine, Serum 0.96 mg/dL (0.70-1.30); EST Glomerular Filtration Rate 84 mL/min (>60); Est Glom Filt Rate - Afr Amer 101 mL/min (>60); Estimated Creatinine Clearance 87.85 ml/min; Glucose 143 mg/dL (74-106); Potassium 4.3 mmol/L (3.5-5.1); Sodium Level 131 mmol/L (136-145)
[2019-07-07 21:42] LABS: Differential Comment SCANNED
[2019-07-07 22:00] VITALS: BP 144/60; PULSE 91; RESP 16; TEMP 37.4; O2SAT 98
--- NOTE | 2019-07-07 22:36 | ED.VISSUMM ---
- ER Visit Summary Date of Service: 07/07/19 Chief Complaint: Left foot and leg redness History of Present Illness: The patient is a 63 M presenting with left lower extremity redness. Started 4 to 5 days ago. Patient states he stepped on a piece of glass a month ago and cut the bottom of his foot. He states this healed. He then developed redness to his foot and leg 4 to 5 days ago. He has a history of previous amputated first great toe. He states this was because he dropped a dresser on his foot. He has had subjective fever. Denies other complaints. Physical Examination: Vitals are stable. Patient is afebrile. Alert no acute distress. HEENT exam is unremarkable. Neck is supple. Lungs are clear and equal bilaterally. Heart is regular rate and rhythm. Abdomen is soft nontender nondistended. Extremities left lower extremity erythema. Wound to the plantar surface of left foot Skin is warm and dry. No focal neurologic deficit. Remainder of exam is unremarkable. Emergency Department Course and Treatment: Blood cultures were sent. Wound culture was sent. Patient is given IV fluids. White count is 20.8. Chemistry shows sodium 131, glucose 143. Patient was given vancomycin and Zosyn IV. Left foot x-ray shows abnormal air in the soft tissues consistent with infection. No erosion. Amputation of the first digit. Discussed with hospitalist for admission. Disposition: Admission Impression: Left lower extremity cellulitis This note was generated with [employer] dictation software. It may contain incorrect words, spelling, and punctuation that were not noted in review of the chart prior to signing ED Disposition - Plan for ED Patient: Referrals: Clement Buckner MD [Primary Care Provider] -
[2019-07-07 22:46] VITALS: BP 147/62; PULSE 95; RESP 18; TEMP 37.6; O2SAT 98
[2019-07-07 22:58] LABS: Lactic Acid 2.4 mmol/L (0.4-1.9)
[2019-07-07 23:00] VITALS: BP 128/65; BP 140/69; PULSE 84; PULSE 89; RESP 16; RESP 18; TEMP 37.7; O2SAT 97; O2SAT 98
[2019-07-07 23:01] LABS: Hemoglobin A1c 6.1 % (4.2-6.3)
--- NOTE | 2019-07-07 23:24 | HP.PCM_ITS ---
History of Present Illness Date of Admission: 07/07/19 Chief Complaint: LLE swelling The patient is a 63 year old M with a PMH as below who presents to the hospital with left lower extremity swelling and a foul odor coming from his foot. He has had a history of a first digit amputation on the left and now has a puncture wound on the ball of his left foot with cellulitis extending up to his knee. He states that the swelling and the redness started about a week ago and he says that he stepped on a piece of glass about a month ago. He denies any fevers or chills. No shortness of breath or chest pain. No cough. In the ER he was found to have a leukocytosis of 20 with a maximum heart rate of 97. Lactic acid was also 2.4. X-ray of his foot does not show any erosion. Past Medical History Past Medical History (Chronic Problems): Chronic Problems Hypothyroidism (Chronic) History of hyperlipidemia (Chronic) History of gastroesophageal reflux (GERD) (Chronic) Deep venous thrombosis of upper extremity (Chronic) CAD (coronary artery disease) (Chronic) Benign essential hypertension (Chronic) Allergies colesevelam HCl [From WelChol] Allergy (Verified 07/07/19 19:31) Rash dicyclomine Allergy (Verified 07/07/19 19:31) Rash divalproex sodium [From Depakote] Allergy (Verified 07/07/19 19:31) Unknown rofecoxib [From Vioxx] Allergy (Verified 07/07/19 19:31) Rash Home Medications: Ambulatory Orders Medication Instructions Recorded Levothyroxine [Synthroid] 75 mcg PO DAILY 09/01/13 Metoprolol Tartrate 25 mg PO BID 09/01/13 Aspirin 325 mg PO DAILY@0800 07/09/17 Duloxetine HCl 30 mg PO DAILY 07/07/19 Rosuvastatin Calcium [Crestor] 20 mg PO DAILY 07/07/19 Surgical History: coronary bypass surgery, - - Coronary artery stent placement April 2017, amputation of the left great toe Psychiatric History: No pertinent psych hx Smoking Status: Current every day smoker Tobacco Use: Cigarettes Alcohol: None Drugs: None - *Family History Maternal History Items: Diabetes Paternal History Items: Cancer - Lung cancer Review of Systems Constitutional: Denies: Chills, Fever, Weight Change HEENT: Denies: Head Aches, Sinus Congestion, Sinus Drainage Cardiovascular: Reports: Edema. Denies: Chest Pain, Palpitations Respiratory: Denies: Cough, Shortness of breath at rest, Sputum production Gastrointestinal: Denies: Abdominal Pain, Nausea, Vomiting Genitourinary: Denies: Dysuria Musculoskeletal: Denies: Joint Pain, Joint Tenderness Skin: Reports: Rash. Denies: Wounds Neurological: Denies: Numbness, Tingling, Focal weakness Psychiatric: Denies: Anxiety, Depression Hematologic/ Lymphatic: Denies: Easy Bruising, Easy Bleeding VTE Information - Inpt Only VTE Present on Admission: No - Physical Exam Vitals/I&O's: Vital Signs Temp Pulse Resp BP Pulse Ox 99.8 F H 84 16 140/69 H 97 07/07/19 23:00 07/07/19 23:00 07/07/19 23:00 07/07/19 23:00 07/07/19 23:00 Oxygen Delivery Method Room Air Weight: 179 lb 0.246 oz Body Mass Index (BMI) 23.6 Finger Stick Blood Glucose 95 Intake and Output for Last 24 Hours 07/05/19 07/06/19 07/07/19 23:59 23:59 23:59 Intake Total 1051.50 / 1051.50 Output Total 400 / 400 Balance 651.50 / 651.50 General: Alert, Oriented x3, Cooperative, No apparent distress HEENT: Atraumatic, PERRLA, EOMI, Normocephalic Oral: Dry Mucosa Neck: Supple, No JVD Lungs: Clear to auscultation, Normal air movement, No rhonchi, No wheeze, No rales, Diminished Cardiovascular: Regular rate, Regular Rhythm, Normal S1, Normal S2, No murmurs Abdomen: Soft, Non Tender, Non-Distended, No Hepato-splenomegaly Extremities: Capillary Refill Less than 3 Seconds, Edema - Left lower extremity only Skin: Rash Present - Erythema from his foot to his knee on the left, there a ppears to be a puncture wound on the ball of his foot Neurological: Neuro grossly intact, Sensory exam intact to light touch and pain Psych/Mental Status: Normal Affect, Appropriate Laboratory Results 07/07/19 21:04: WBC 20.8 H, RBC 5.20, Hgb 13.6, Hct 42.7, MCV 82.1, MCH 26.2 L, MCHC 31.9 L, RDW Std Deviation 44.9 H, RDW Coeff of Jesus 15.0 H, Plt Count 263, MPV 10.6, Immature Gran % (Auto) 0.600, Neut % (Auto) 84.2 H, Lymph % (Auto) 5.5 L, [place] % (Auto) 9.3, Eos % (Auto) 0.1, Baso % (Auto) 0.3, Absolute Neuts (auto) 17.5 H, Absolute Lymphs (auto) 1.14, Nucleated RBC % 0, Differential Comment SCANNED, Diff Path Review July07/07/19 21:04: Sodium 131 L, Potassium 4.3, Chloride 96 L, Carbon Dioxide 29.0, Anion Gap 6, BUN 8, Creatinine 0.96, Estim Creat Clear Calc 87.85, Est GFR (MDRD) Af Amer 101, Est GFR (MDRD) Non-Af 84, BUN/Creatinine Ratio 8.3 L, Glucose 143 H, Calcium 9.2 07/07/19 21:04: Hemoglobin A1c 6.1 07/07/19 21:04: Lactic Acid 2.4 H* Current Medications Vancomycin HCl 1,250 mg/ (Sodium Chloride) 275 mls @ 167 mls/hr IV X1 ONE Stop: 07/08/19 00:08 Last Admin: 07/07/19 23:19 Dose: 167 mls/hr Documented by: Sodium Chloride () 250 mls @ 15 mls/hr IV .[id number] PRN PRN Reason: Saline Flush Last Infusion: 07/07/19 23:19 Dose: 0 mls/hr Documented by: Sodium Chloride () 250 mls @ 15 mls/hr IV .[id number] PRN PRN Reason: Additional IVPB Infusion Assessment/Plan All Active Problems Nausea and vomiting (Acute) Redness of the left leg and foot (Acute) Type 2 diabetes mellitus with foot ulcer (Acute) Type 2 diabetes mellitus with foot ulcer (Acute) 1. Severe sepsis from left lower extremity cellulitis with possible diabetic foot wound -A1c is 6.1 -Blood cultures and wound cultures are pending -Consult to podiatry -MRI did not rule out osteo- -Continue with vancomycin and Zosyn for now -Lactic acid on admission was 2.4, will repeat he did receive fluid bolus in the ER and will continue with IV fluids on admission 2. CAD status post CABG/HTN/HLD -Pressure is stable, continue with his metoprolol -Continue with Crestor -Continue with aspirin 3. Hypothyroidism -Stable -Continue with Synthroid 4. Anxiety/depression -Stable -Continue with Cymbalta DVT: Lovenox Inpatient E&M: 35005 Init Hosp L3
--- NOTE | 2019-07-07 23:58 | ED.RN ---
patient being prepared for transfer to floor. licensed practical nurse noticed red blanching noted to the forearm above IV site. IV site intact. pt denies any SOB. Will discuss with Dr. An at this time
[2019-07-08] VITALS (13 sets, daily range): BP systolic 94–132; BP diastolic 45–67; PULSE 82–94; RESP 16–20; TEMP 37–38; O2SAT 93–100; BMI 23.2
--- NOTE | 2019-07-08 00:14 | ED.RN ---
order given for iv bendaryl
[2019-07-08] MEDS: DiphenhydrAMINE 50 MG/ML Syringe 25 MG IV (00:20)
[2019-07-08] MEDS: 0.9% Normal Saline 1,000 ML 100 ML IV ×3 (00:40→15:54)
--- NOTE | 2019-07-08 00:58 | PCM.RX.CS ---
Consult Pharmacy has been consulted to manage selected antiobiotic: Vancomycin Type of Consult: New start Suspected Infection: Sepsis, Skin/Soft tissue Prior Doses of Antibiotics Received/Current Regimen: Medications Vancomycin HCl 1,250 mg/ (Sodium Chloride) 275 mls @ 167 mls/hr IV Q12H SHMUEL Discontinued Medications Vancomycin HCl 1,250 mg/ (Sodium Chloride) 275 mls @ 167 mls/hr IV X1 ONE Stop: 07/08/19 00:08 Last Admin: 07/08/19 00:40 Dose: 0 mls/hr Labs: Sodium 131 mmol/L (136-145) L 07/07/19 21:04 Potassium 4.3 mmol/L (3.5-5.1) 07/07/19 21:04 Chloride 96 mmol/L (98-107) L 07/07/19 21:04 Carbon Dioxide 29.0 mmol/L (21.0-32.0) 07/07/19 21:04 Anion Gap 6 (5-15) 07/07/19 21:04 BUN 8 mg/dL (7-18) 07/07/19 21:04 Creatinine 0.96 mg/dL (0.70-1.30) 07/07/19 21:04 Est GFR (MDRD) Af Amer 101 mL/min (>60) 07/07/19 21:04 Est GFR (MDRD) Non-Af 84 mL/min (>60) 07/07/19 21:04 BUN/Creatinine Ratio 8.3 RATIO (10-20) L 07/07/19 21:04 Glucose 143 mg/dL (74-106) H 07/07/19 21:04 Weight used for dosin.9 kg Estimated Creatinine Clearance: 88 Goal Trough: 15-20 mcg/mL Pharmacy Plan for Drug Dosing: Pharmacy Service will continue to monitor and adjust dosing as required. Follow-Up Labs: Trough Vancomycin Labs to be done on [date and time ordered]: 07/09/19 @1100
[2019-07-08 02:39] LABS: Reflex Lactate? Y
[2019-07-08 02:59] LABS: Absolute Lymphocyte Count 1.55 X10^3/uL (0.83-4.51); Absolute Neutrophil Count 14.1 X10^3/uL (2.0-7.7); Basophil# 0.06 X10^3/uL; Basophil% 0.3 % (0-1); Eosinophil# 0.05 X10^3/uL; Eosinophils% 0.3 % (0-5); Hematocrit 36.5 % (40-54); Hemoglobin 11.6 g/dL (13.0-16.5); Lymphocyte # 1.55 X10^3/ul (4.0); Lymphocyte % 8.8 % (19-41); Mean Corp Hgb Conc 31.8 g/dL (32-36); Mean Corpuscular Hgb 25.6 pg (27.0-32.0); Mean Corpuscular Volume 80.4 fL (80-94); Mean Platelet Vol. 10.2 fl (6.2-12.0); Monocyte% 10.2 % (0-10); NRBC Flagged by Analyzer 0 % (0-5); Neutrophil # 14.07 X10^3/uL (2.7-7.7); Neutrophil % 79.7 % (47-70); POSITIVE DIFFERENTIAL YES; Platelet Count 235 K/mm3 (150-450); RBC Distribution Width SD 43.9 fl (35.1-43.9); Red Blood Count 4.54 M/mm3 (4.6-6.2); White Blood Count 17.7 K/mm3 (4.4-11.0)
[2019-07-08 03:20] LABS: Differential Indicated SCAN CRITERIA MET
[2019-07-08 03:21] LABS: Anion Gap 7 (5-15); BUN 6 mg/dL (7-18); Calcium,Total 8.3 mg/dL (8.5-10.1); Chloride 101 mmol/L (98-107); Creatinine, Serum 0.75 mg/dL (0.70-1.30); EST Glomerular Filtration Rate 111 mL/min (>60); Est Glom Filt Rate - Afr Amer 134 mL/min (>60); Estimated Creatinine Clearance 112.45 ml/min; Glucose 116 mg/dL (74-106); Potassium 2.9 mmol/L (3.5-5.1); Sodium Level 135 mmol/L (136-145)
[2019-07-08 03:25] LABS: Lactic Acid 0.9 mmol/L (0.4-1.9)
[2019-07-08 03:41] LABS: Differential Comment SCANNED
[2019-07-08 04:19] LABS: Magnesium 2.1 mg/dL (1.6-2.6)
--- NOTE | 2019-07-08 05:55 | MRI_ITS ---
STUDY: MRI LEFT FOREFOOT WITH AND WITHOUT CONTRAST REASON FOR EXAM: Puncture wound at the distal aspect of the first metatarsal, great toe amputation, evaluate for osteomyelitis. TECHNIQUE: Standardized fat and water weighted pulse sequences were obtained in all 3 orthogonal planes, post contrast administration. IV DOTAREM 15CC was administered for the contrast portion of the examination. COMPARISON: Radiographs 07/07/2019 and MRI images 07/10/2017. FINDINGS: There is a small effusion of the second metatarsophalangeal joint (T2 series 8 image 22). There is a very small effusion of the third metatarsophalangeal joint (T2 series 8 image 19). Normal fourth and fifth metatarsophalangeal (MTP) joints. Normal interphalangeal joints of the second through fifth toes. Normal proximal, middle and distal phalanges of the second through fifth toes. There are hammertoe deformities of the lesser toes. Normal flexor and extensor tendons of the second through fifth toes. There is mild intermetatarsal bursitis of the second and third web spaces (T2 series 7 images 16, 17). There is amputation of the first digit at the level of the proximal metatarsal diaphysis. There is no bone edema of the metatarsals to indicate osteomyelitis. There are degenerative changes of the midfoot, talonavicular and calcaneocuboid articulations. There is atrophy with fat replacement of the intrinsic muscles of the foot suggestive of peripheral neuropathy. There is edema of the subcutis adipose space of the forefoot with contrast enhancement suggestive of cellulitis. There is gas in the subcutis adipose space distal to the amputated first metatarsal and plantar to the second metatarsophalangeal joint (T1 sagittal images 13-16, 21-23). There is no focal fluid collection to indicate soft tissue abscess. MRI/Lower Ext No Joint W/WO Cont IMPRESSION: Gas in the subcutis adipose space distal to the amputated first metatarsal and plantar to the second metatarsophalangeal joint without demonstrated soft tissue abscess. Cellulitis of the forefoot. Mild intermetatarsal bursitis of the second and third web spaces. Atrophy of the intrinsic muscles of the foot suggestive of peripheral neuropathy. Small effusions of the second and third metatarsophalangeal joints. No demonstrated osteomyelitis. Electronically Signed: Jose Francisco Chang MD at 10:52 EDT Tel , Service support ,
--- NOTE | 2019-07-08 07:52 | PCM.PN.HOSP ---
Reason for Visit: Follow-up on severe sepsis secondary to lower extremity cellulitis/infected ulcer Subjective: Patient was seen and examined. He denies any pain in his foot. His MRI showed gas in tissues overlying 1st and 2nd metatarsal region, cellulitis present without abscess or osteomyelitis. He is going for surgery with podiatry this afternoon. Vitals/I&O's: Vital Signs Temp Pulse Resp BP Pulse Ox 100.4 F H 93 20 H 103/45 L 93 07/08/19 05:05 07/08/19 05:05 07/08/19 05:05 07/08/19 05:05 07/08/19 05:05 Oxygen Delivery Method Room Air Weight: 79.9 kg Body Mass Index (BMI) 23.2 Finger Stick Blood Glucose 95 Intake and Output for Last 24 Hours 07/06/19 07/07/19 07/08/19 23:59 23:59 23:59 Intake Total 1160.05 / 1160.05 805.67 / 805.67 Output Total 400 / 400 575 / 575 Balance 760.05 / 760.05 230.67 / 230.67 General: Alert, Oriented x3, Cooperative, No apparent distress HEENT: Atraumatic, PERRLA, EOMI, Normocephalic Oral: Moist Mucosa Neck: Supple Lungs: Clear to auscultation, Normal air movement Cardiovascular: Regular rate, Regular Rhythm, Normal S1, Normal S2, No murmurs Abdomen: Bowel Sounds Present, Soft, Non Tender, Non-Distended, No Hepato-splenomegaly Extremities: No edema Skin: No rashes Musculoskeletal: No Tenderness to Palpation of Joints or Extremities Lymphatic: No Cervical, Supraclavicular, or Inguinal Adenopathy Neurological: Cranial nerves II-XII grossly intact, Neuro grossly intact Psych/Mental Status: Normal Affect, Appropriate Laboratory Results 07/07/19 21:04: WBC 20.8 H, RBC 5.20, Hgb 13.6, Hct 42.7, MCV 82.1, MCH 26.2 L, MCHC 31.9 L, RDW Std Deviation 44.9 H, RDW Coeff of Jesus 15.0 H, Plt Count 263, MPV 10.6, Immature Gran % (Auto) 0.600, Neut % (Auto) 84.2 H, Lymph % (Auto) 5.5 L, [place] % (Auto) 9.3, Eos % (Auto) 0.1, Baso % (Auto) 0.3, Absolute Neuts (auto) 17.5 H, Absolute Lymphs (auto) 1.14, Nucleated RBC % 0, Differential Comment SCANNED, Diff Path Review July [facility] 07/07/19 21:04: Sodium 131 L, Potassium 4.3, Chloride 96 L, Carbon Dioxide 29.0, Anion Gap 6, BUN 8, Creatinine 0.96, Estim Creat Clear Calc 87.85, Est GFR (MDRD) Af Amer 101, Est GFR (MDRD) Non-Af 84, BUN/Creatinine Ratio 8.3 L, Glucose 143 H, Calcium 9.2 07/07/19 21:04: Hemoglobin A1c 6.1 07/07/19 21:04: Lactic Acid 2.4 H* 07/08/19 02:50: WBC 17.7 H, RBC 4.54 L, Hgb 11.6 L, Hct 36.5 L, MCV 80.4, MCH 25.6 L, MCHC 31.8 L, RDW Std Deviation 43.9, RDW Coeff of Jesus 15.0 H, Plt Count 235, MPV 10.2, Immature Gran % (Auto) 0.700, Neut % (Auto) 79.7 H, Lymph % (Auto) 8.8 L, [place] % (Auto) 10.2 H, Eos % (Auto) 0.3, Baso % (Auto) 0.3, Absolute Neuts (auto) 14.1 H, Absolute Lymphs (auto) 1.55, Nucleated RBC % 0, Differential Comment SCANNED, Diff Path Review July [facility] 07/08/19 02:50: Sodium 135 L, Potassium 2.9 L, Chloride 101, Carbon Dioxide 27.0, Anion Gap 7, BUN 6 L, Creatinine 0.75, Estim Creat Clear Calc 112.45, Est GFR (MDRD) Af Amer 134, Est GFR (MDRD) Non-Af 111, BUN/Creatinine Ratio 8.0 L, Glucose 116 H, Calcium 8.3 L 07/08/19 02:50: Lactic Acid 0.9 07/08/19 02:50: Magnesium 2.1 Current Medications Acetaminophen (Tylenol) 650 mg PO Q6H PRN PRN PRN Reason: Pain Score 1-10/Temp > 100.7 F Enoxaparin Sodium (Lovenox) 40 mg SC DAILY [facility] Sodium Chloride () 1,000 mls @ 100 mls/hr IV .Q10H [facility] Last Infusion: 07/08/19 05:58 Dose: 100 mls/hr Documented by: Piperacillin Sod/Tazobactam (Sod 3.375 gm/ Sodium Chloride) 50 mls @ 12.5 mls/hr IV Q8 SHMUEL Last Admin: 07/08/19 05:02 Dose: 12.5 mls/hr Documented by: Sodium Chloride () 250 mls @ 15 mls/hr IV .[id number] PRN PRN Reason: Saline Flush Sodium Chloride () 250 mls @ 15 mls/hr IV .[id number] PRN PRN Reason: Additional IVPB Infusion Potassium Chloride () 10 meq in 100 mls @ 100 mls/hr IV BOLUS Q1H [facility] Stop: 07/08/19 11:59 Nutritional Formula (Lactose Free) (Ensure Enlive) 120 ml PO 4X/DAY [facility] Ondansetron HCl (Zofran) 4 mg IV Q8H PRN PRN PRN Reason: NAUSEA/VOMITING Sodium Chloride () 10 - 40 ml IV UD PRN PRN Reason: SALINE FLUSH STROKE Vital Signs/Narrative: Vital Signs Temp Pulse Resp BP Pulse Ox 07/08/19 05:05 100.4 F H 93 20 H 103/45 L 93 Medical Necessity - Tobacco Use Smoking Status: Current every day smoker Tobacco Use: Cigarettes Assessment/Plan All Active Problems Nausea and vomiting (Acute) Redness of the left leg and foot (Acute) Type 2 diabetes mellitus with foot ulcer (Acute) Type 2 diabetes mellitus with foot ulcer (Acute) 1. Severe sepsis secondary to severe left foot infection/cellulitis No hx of DM; HgbA1c 6.1 H/o stepping on glass 2 weeks ago; was managing conservatively WBC is mildly improved, blood and wound cultures are pending MRSA PCR is negative Continue on IV Zosyn(day 2) 2. CAD s/p CABG/Hypertension/Hyperlipidemia Continue on metoprolol and statin Aspirin on hold 3. Hypothyroidism, on levothyroxine 4. Anxiety/depression, on Cymbalta 5. DVT PPx- Lovenox SC Inpatient E&M: 39105 [facility] Hosp L2
--- NOTE | 2019-07-08 08:23 | CON.PCM_ITS ---
Reason for Consult Date of Consultation: 07/08/19 Reason for Consultation: Left foot infection History of Present Illness: The patient is a 63 year old with history of diabetes, as well as tobacco use was seen today for left foot infection. He has significant cellulitis with ulceration to the left foot, cellulitis is going up ankle and to leg. There is significant oder. He relates it has been infected for about 1 week. Patient relates he stepped on glass to the left heel. He relates he has seen Dr. Duarte in the past but has not seen him in quite some time. Patient has hx of left 1st ray amputation in 2018. Patient denies any pain to the foot, relates he has no feeling to his foot. Patient has been admitted for further evaluation and treatment, WBC elevated, patient has fever at 100.4 F, a culture has been obtained, and patient started on IV antibiotics. Past Medical History Past Medical History (Chronic Problems): Chronic Problems Hypothyroidism (Chronic) History of hyperlipidemia (Chronic) History of gastroesophageal reflux (GERD) (Chronic) Deep venous thrombosis of upper extremity (Chronic) CAD (coronary artery disease) (Chronic) Benign essential hypertension (Chronic) Allergies colesevelam HCl [From WelChol] Allergy (Verified 07/07/19 19:31) Rash dicyclomine Allergy (Verified 07/07/19 19:31) Rash divalproex sodium [From Depakote] Allergy (Verified 07/07/19 19:31) Unknown rofecoxib [From Vioxx] Allergy (Verified 07/07/19 19:31) Rash Home Medications: Ambulatory Orders Medication Instructions Recorded Levothyroxine [Synthroid] 75 mcg PO DAILY 09/01/13 Metoprolol Tartrate 25 mg PO BID 09/01/13 Aspirin 325 mg PO DAILY@0800 07/09/17 Duloxetine HCl 30 mg PO DAILY 07/07/19 Rosuvastatin Calcium [Crestor] 20 mg PO DAILY 07/07/19 Surgical History: coronary bypass surgery, - - Coronary artery stent placement April 2017, amputation of the left great toe Psychiatric History: No pertinent psych hx Smoking Status: Current every day smoker Tobacco Use: Cigarettes Alcohol: None Drugs: None - *Family History Maternal History Items: Diabetes Paternal History Items: Cancer - Lung cancer Review of Systems Constitutional: Reports: Fever. Denies: Chills Gastrointestinal: Denies: Nausea, Vomiting Musculoskeletal: Denies: Foot Pain Skin: Reports: Wounds - Physical Exam Vitals/I&O's: Vital Signs Temp Pulse Resp BP Pulse Ox 100.4 F H 93 20 H 103/45 L 93 07/08/19 05:05 07/08/19 05:05 07/08/19 05:05 07/08/19 05:05 07/08/19 05:05 Oxygen Delivery Method Room Air Weight: 79.9 kg Body Mass Index (BMI) 23.2 Finger Stick Blood Glucose 95 Intake and Output for Last 24 Hours 07/06/19 07/07/19 07/08/19 23:59 23:59 23:59 Intake Total 1160.05 / 1160.05 805.67 / 805.67 Output Total 400 / 400 575 / 575 Balance 760.05 / 760.05 230.67 / 230.67 General: Alert, Oriented x3, Cooperative, No apparent distress Extremities: - - Left foot with ulceration sub 2nd met head probes very close to 2nd metatarsal head bone, there is purulent drainage, as well as necrotic nonviable tissue present to the site with significant maloder, there is s ignificant cellulitis to the left foot going to ankle and to leg. No open open lesions to the left foot/ankle, site of glass injury plantar left heel appears healed at this time. Left foot warm/hot consistent w/ infection. There is no POP or pain on ROM to the left foot or ankle. s/p 1st ray (partial) amputation - site is healed. Limited ROM to the left foot. Musculoskeletal: No Tenderness to Palpation of Joints or Extremities Laboratory Results 07/07/19 21:04: WBC 20.8 H, RBC 5.20, Hgb 13.6, Hct 42.7, MCV 82.1, MCH 26.2 L, MCHC 31.9 L, RDW Std Deviation 44.9 H, RDW Coeff of Jesus 15.0 H, Plt Count 263, MPV 10.6, Immature Gran % (Auto) 0.600, Neut % (Auto) 84.2 H, Lymph % (Auto) 5.5 L, [place] % (Auto) 9.3, Eos % (Auto) 0.1, Baso % (Auto) 0.3, Absolute Neuts (auto) 17.5 H, Absolute Lymphs (auto) 1.14, Nucleated RBC % 0, Differential Comment SCANNED, Diff Path Review July [facility] 07/07/19 21:04: Sodium 131 L, Potassium 4.3, Chloride 96 L, Carbon Dioxide 29.0, Anion Gap 6, BUN 8, Creatinine 0.96, Estim Creat Clear Calc 87.85, Est GFR (MDRD) Af Amer 101, Est GFR (MDRD) Non-Af 84, BUN/Creatinine Ratio 8.3 L, Glucose 143 H, Calcium 9.2 07/07/19 21:04: Hemoglobin A1c 6.1 07/07/19 21:04: Lactic Acid 2.4 H* 07/08/19 02:50: WBC 17.7 H, RBC 4.54 L, Hgb 11.6 L, Hct 36.5 L, MCV 80.4, MCH 25.6 L, MCHC 31.8 L, RDW Std Deviation 43.9, RDW Coeff of Jesus 15.0 H, Plt Count 235, MPV 10.2, Immature Gran % (Auto) 0.700, Neut % (Auto) 79.7 H, Lymph % (Auto) 8.8 L, [place] % (Auto) 10.2 H, Eos % (Auto) 0.3, Baso % (Auto) 0.3, Absolute Neuts (auto) 14.1 H, Absolute Lymphs (auto) 1.55, Nucleated RBC % 0, Differential Comment SCANNED, Diff Path Review July [facility] 07/08/19 02:50: Sodium 135 L, Potassium 2.9 L, Chloride 101, Carbon Dioxide 27.0, Anion Gap 7, BUN 6 L, Creatinine 0.75, Estim Creat Clear Calc 112.45, Est GFR (MDRD) Af Amer 134, Est GFR (MDRD) Non-Af 111, BUN/Creatinine Ratio 8.0 L, Glucose 116 H, Calcium 8.3 L 07/08/19 02:50: Lactic Acid 0.9 07/08/19 02:50: Magnesium 2.1 07/08/19 08:00: S.aureus Protein A PCR Pending, MRSA (PCR) Pending Current Medications Acetaminophen (Tylenol) 650 mg PO Q6H PRN PRN PRN Reason: Pain Score 1-10/Temp > 100.7 F Enoxaparin Sodium (Lovenox) 40 mg SC DAILY SHMU[facility] Sodium Chloride () 1,000 mls @ 100 mls/hr IV .Q10H [facility] Last Infusion: 07/08/19 05:58 Dose: 100 mls/hr Documented by: Piperacillin Sod/Tazobactam (Sod 3.375 gm/ Sodium Chloride) 50 mls @ 12.5 mls/hr IV Q8 [facility] Last Admin: 07/08/19 05:02 Dose: 12.5 mls/hr Documented by: Sodium Chloride () 250 mls @ 15 mls/hr IV .[id number] PRN PRN Reason: Saline Flush Sodium Chloride () 250 mls @ 15 mls/hr IV .[id number] PRN PRN Reason: Additional IVPB Infusion Potassium Chloride () 10 meq in 100 mls @ 100 mls/hr IV BOLUS Q1H [facility] Stop: 07/08/19 12:14 Nutritional Formula (Lactose Free) (Ensure Enlive) 120 ml PO 4X/DAY [facility] Ondansetron HCl (Zofran) 4 mg IV Q8H PRN PRN PRN Reason: NAUSEA/VOMITING Sodium Chloride () 10 - 40 ml IV UD PRN PRN Reason: SALINE FLUSH Assessment/Plan All Active Problems Nausea and vomiting (Acute) Redness of the left leg and foot (Acute) Type 2 diabetes mellitus with foot ulcer (Acute) Type 2 diabetes mellitus with foot ulcer (Acute) Ulcer down to bone left foot with significant left lower extremity cellulitis Abscess left forefoot with suspected osteomyelitis Diabetic neuropathy Previous left 1st ray amputation Tobacco Use Reviewed diagnostic data. MRI has been ordered, has been obtained, reviewed findings. There is gas in the tissues. Discussed with patient about proceeding with incision, drainage and debridement left foot, and transmetatarsal amputation due to gas, significant necrosis to plantar forefoot and previous 1st ray amputation. Reviewed rationale of this with patient today. Reviewed consent with patient. Patient to be NPO with plans to add on for today. Recommended tobacco/smoking cessation - reviewed rationale of this with patient. Continue with IV antibiotics. Follow culture. Thank you for consultation. D/w Dr. Mcguire. Essential Procedure Criteria Risk to Patient if Procedure Delayed: Threat to patient's life if surgery or procedure is not performed - severe infection to left foot
--- NOTE | 2019-07-08 09:13 | NURSING ---
wound photo: left foot
--- NOTE | 2019-07-08 09:14 | NURSING ---
skin photo: left lower leg
[2019-07-08 09:45] LABS: Pathologist Review Reviewed
[2019-07-08 09:46] LABS: Pathologist Review Reviewed
[2019-07-08] MEDS: Potassium Chloride 10mEq/100mL 10 MEQ/100 ML IV.SOLN. 100 MEQ IV BOLUS ×4 (10:17→13:08)
[2019-07-08] MEDS: 0.9% Saline Lock 10 ML Syringe IV (10:17)
[2019-07-08 10:36] LABS: M R Staph aureus DNA By PCR Negative (Negative); Probe Check PASS; Specimen Processing Control PASS; Staph aureus DNA By PCR NEGATIVE (Negative)
--- NOTE | 2019-07-08 13:24 | EKG12_ITS ---
Test Reason : PRE OP Blood Pressure : / mmHG Vent. Rate : 086 BPM Atrial Rate : 086 BPM P-R Int : 176 ms QRS Dur : 088 ms QT Int : 364 ms P-R-T Axes : 045 -04 058 degrees QTc Int : 435 ms Normal sinus rhythm Normal ECG Confirmed by NEDA FERNANDES, GWENDOLYN ([id number]), news video editor FERNANDO PASCUAL ([id number]) on 07/14/2019 10:01:34 AM Referred By: LILY Confirmed By:GWENDOLYN RED MD
--- NOTE | 2019-07-08 14:15 | FOOT_PTH ---
PATIENT: RK MCCLURE LOC: [facility] U#:[id number] AGE/SX: 63/M ROOM: [facility] RE07/07/[address]: Dr. Ana M Mello MD : 1955 BED: 1 DIS: 07/12/2019 SPEC #: [id number] RECD: 07/08/19 15:51 STATUS: JENNY REQ #: [id number] JUAN ALBERTO: 07/08/19 14:[address]: Jeremiah Roberts DEPT: SURGICAL PATHOLOGY RECD BY: Cecilio Shipman ENTERED: 07/09/19 10:46 SP TYPE: FOOT OTHR DR: MD Dr. Clement Gilbert MD Dr. Jeffrey Wunning, DPM MD Dr. Daniel Conway MD Tissues: A - Foot, NOS B - Bone of foot, NOS Procedures: Decalcification bone/plaque Special Stain Group I Surgery Specimen Level III Surgery Specimen Level IV AFB Stain (control) GMS Stain (control) Comments: @ Ordering doctor for DEC edited from to @ by MAYA at 07/09/19 110 @ Ordering doctor for SUIII edited from to @ by MAYA at 07/09/19 110 @ Submitting doctor edited from to @ by MAYA at 07/09/191101 HEADER OPERATION: Debridement nonviable infected, necrotic soft tissue PRE-OP DIAGNOSIS: Ulcer down to bone left foot with significant left lower extremity cellulitis; abscess left forefoot with suspected osteomyelitis; diabetic neuropathy; previous left first ray amputation TISSUE SUBMITTED: A - Left forefoot, B - Clearance fragment second metatarsal MICROSCOPIC DIAGNOSIS A. Left forefoot, amputation: Focal ulceration, acute inflammation and abscess formation. Bone with acute osteomyelitis. Special stains for acid fast bacilli and fungi are negative for organisms; matched controls are appropriate. B. Clearance fragment second metatarsal: A piece of bone, negative for osteomyelitis. SJ:ava 07/14/19 MICROSCOPIC DESCRIPTION Slides are reviewed. GROSS DESCRIPTION A - Received in fixative is one container labeled with the patient's name and designated left forefoot. The specimen consists of a portion of left forefoot consisting of four toes. The first toe is missing. The specimen measures 8 x 6 x 3 cm. Three toes shows nails which are brownish and appear atrophic. The fourth toe nail appears unremarkable. Also present in the container is a piece of skin with underlying tissue measuring 4.5 x 3 x 1.5 cm. A focal area of ulceration is noted on the surface measuring 0.5 cm in greatest dimension. The soft tissue underneath the great toe appears brownish. Also present in the container are detached pieces of soft tissue measuring in aggregate 5 x 5 x 1.5 cm. Also present in the container are detached pieces of bone consisting of metatarsal head measuring in?aggregate 7.5 x 4 x 2 cm. Specification Writer sections are submitted in seven cassettes as follows: 1 & 2 - soft tissue ulcerated area, 3-7 - bone after decalcification. B - Received in fixative is one container labeled with the patient's name and designated clearance fragment second metatarsal. The specimen consists of a piece of bone measuring 1.5 x 1 x 0.4 cm. The specimen is totally submitted in one cassette after decalcification. / SJ:rg 07/09/19 TC:2 CPT: 58110, 89192, 87277 x2, 31471 x2
[2019-07-08 14:16] LABS: Bedside Glucose 90 mg/dL (70-110)
--- NOTE | 2019-07-08 14:16 | ART_ITS ---
Reason For Study: PVD Procedure A bilateral lower extremity continuous wave Doppler with analog waveform analysis and ankle brachial indexes. Left Segmental Pressures Left brachial= 117mmHg. Left posterior tibial artery = 130mmHg. Left dorsalis pedis artery = 107mmHg. The left dorsalis pedis waveforms are triphasic. The left posterior tibial artery waveforms are triphasic. Right Segmental Pressures Right brachial= 113mmHg. Indices The left ankle brachial index by the dorsalis pedis is 0.91. The left ankle brachial index by the posterior tibial artery is 1.11. Interpretation Summary Triphasic Doppler waveforms are noted at ankle level on the left. The pulse-volume recording waveform appears satisfactory at ankle level on the left. The resting left ankle-brachial index is normal. There is no evidence of significant arterial occlusive disease in the left lower extremity. (An abbreviated Covid-19 protocol was performed.). Ordering Physician: Jeremiah Roberts Referring Physician: Greg Buckner Performed By: Glendy Hdz RVT
--- NOTE | 2019-07-08 15:32 | PCM.OPRPT ---
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 Removed left forefoot sent to pathology and microbiology. 2. Clearance fragment 2nd metatarsal sent to pathology and microbiology Estimated Blood Loss (mL): 10mL Description of Procedure: Indications: This is a 63 year old gentleman with history of multiple medical problems, including but not limited to diabetes, CAD, as well as tobacco use presented with significant left foot necrotizing infection, ulceration sub 2nd metatarsal head probed deep to bone with significant maloder present and significant swelling and cellulitis extending up leg. The foot was already deformed from previous partial 1st ray amputation. WBC elevated and patient with fever. Gas noted on MRI. Given the findings we discussed debridement of all nonviable necrotic soft tissue and bone, with transmetatarsal amputation of the left foot. Reviewed the possible benefits vs risks, goals, expectations and estimated healing time. Patient understands he is at risk for further infection, amputation, loss of limb, and loss of life. Also advised patient risks also include but are not limited to need for further surgery, blood clots, weakness, transfer lesions, ischemia, bleeding, pain, chronic pain, deformity, numbness, swelling, inability to walk or wear shoes, charcot foot, complex regional pain syndrome, and again loss of limb, and loss of life. Patient expressed understanding and agreement and patient agreed to proceed forward with the procedure. All of his questions were answered. The consent form was reviewed with patient, and the patient freely signed it. Operative Procedure: The patient was brought back to the operating room and was placed on the operating room table in the supine position. The patient was carefully secured to the operating room table with a safety belt around his waist. The patient was already on IV antibiotics. A time out was performed and the patient was properly identified and the surgical plan was confirmed. The patient received general anesthesia per the anesthesia team. A well padded pneumatic tourniquet was applied to the left ankle. The left foot was scrubbed, prepped and draped in the usual aseptic fashion. Further attention was directed to the left foot, where there was significant necrosis plantar forefoot sub 1st metatarsal and 2nd metatarsal phalangeal joint with significant maloder and purulence present, wound was present to this area down to bone. The left foot was elevated for 3 minutes and the ankle pneumatic tourniquet was inflated to 250mmHg. Using a #15 scalpel blade all nonviable, necrotic, infected tissue was removed, this involvement a significant amount of soft tissue down to bone of the central and medial forefoot, area debrided was 8cm x 6cm and down to bone (2cm in depth). Due to the significant involvement and already partial 1st ray amputation a transmetatarsal amputation was considered the best option to remove the infection and try to preserve the most possible functional foot in future. A circumferential incision was made around the distal right forefoot with care to preserve the viable plantar and dorsal skin for later flap closure. The incision was carried directly to bone. Next using the soft tissues were reflected off of the second, third, fourth, and fifth metatarsals. Then using a powered sagittal saw, osteotomies were made through the shafts of the second, third, fourth, and fifth metatarsals with care taken to preserve the parabola of the foot. There did not appear to be infection involvement to the residual 1st metatarsal so it was left alone. These osteotomies were made with a slight bevel from dorsal distal and plantar proximal. The 5th metatarsal was beveled laterally. The bone at this level of the osteotomies appeared white, hard, viable, bleeding, with normal healthy appearing cortical bone and marrow cavity. At this time using a #15 scalpel blade the soft tissue attachments to the distal right forefoot were removed again taking care to preserve the skin and subcutaneous tissue of the plantar and dorsal flap. The forefoot was then removed as passed from the surgical field and sent as a specimen to pathology, and a deep culture was obtained sending that to microbiology. There was also noted to be a chronic abscess to the site distally, which was excised. All tendons were cut proximal to the surgical wound. The remaining soft tissues and metatarsals to the right foot appeared healthy, viable, clean, hard, bleeding, free of infection. A clearance fragment was obtained from the 2nd metatarsal shafts - sent to both pathology and microbiology. This bone did appear healthy, viable and free of infection. The site was flushed with copious amount of normal saline solution. The flap edges were remodeled using a 15 scalpel blade do the dorsal and plantar flaps could be properly aligned without tension. The skin of the dorsal and plantar flaps were reapproximated using 3-0 Prolene but left open centrally and site was packed with 1/4in Iodoform gauze packing. At this time a surgical dressing of surgicel, 4x4 gauze, Kerlix, abd pads, and philip wrap were applied to the foot. The ankle pneumatic tourniquet was deflated (total time was 40 minutes) and there was return of warmth and perfusion to the foot. CFT was less than 3 seconds to the flap sites. The patient tolerated the above procedure and anesthesia well with no complications. Patient was transported to the recovery Room with vital signs stable and in good condition. Post operative orders were placed. No weightbearing left foot, keep foot elevated. Postoperative xrays of the foot were obtained and reviewed- s/p TMA with a maintained metatarsal parabola, no complications seen. Post-op instructions were reviewed. Patient to be followed as inpatient. Grafts/Implants Used: None - Complications None
--- NOTE | 2019-07-08 15:46 | RAD_ITS ---
STUDY: X-RAY - LEFT FOOT CLINICAL: Male, 63 years old. POST OP TECHNIQUE: 3 view(s) of the foot. COMPARISON: July 07, 2019 FINDINGS: There is arthritic change of the hindfoot with spurring. There is transmetatarsal amputation of the foot. There are postoperative changes in the soft tissues. There is air in the soft tissues consistent with recent status. RAD/Foot min 3 Views IMPRESSION: Transmetatarsal amputation of the foot. Electronically Signed: Dawson Owens MD at 16:38 EDT , Service support ,
[2019-07-08 15:56] LABS: Bedside Glucose 92 mg/dL (70-110)
[2019-07-08] MEDS: Atorvastatin Calcium 40 MG Tablet PO (20:40)
[2019-07-09] VITALS (7 sets, daily range): BP systolic 105–155; BP diastolic 42–61; PULSE 72–100; RESP 16–20; TEMP 36.9–37.6; O2SAT 92–96; BMI 23.2
[2019-07-09] MEDS: 0.9% Normal Saline 1,000 ML 100 ML IV (01:15)
[2019-07-09] MEDS: Levothyroxine 75 MCG Tablet PO (05:32)
--- NOTE | 2019-07-09 07:20 | PN_ITS ---
Reason for Visit: Follow-up on severe sepsis secondary to lower extremity cellulitis/infected ulcer/osteomyelitis/s/p TMA 07/08/19 Subjective: Patient was seen and examined. He denied any pain, fever or chills. No acute events overnight. Objective: Physical exam: General: Alert, Oriented x3, Cooperative, No apparent distress HEENT: Atraumatic, PERRLA, EOMI, Normocephalic Oral: Moist Mucosa Neck: Supple Lungs: Clear to auscultation, Normal air movement Cardiovascular: Regular rate, Regular Rhythm, Normal S1, Normal S2, No murmurs Abdomen: Bowel Sounds Present, Soft, Non Tender, Non-Distended, No Hepato- splenomegaly Extremities: Edema and erythema of left lower leg, improving, left foot wrapped up in dressing and AMIE-wraps Skin: No rashes Musculoskeletal: No Tenderness to Palpation of Joints or Extremities Lymphatic: No Cervical, Supraclavicular, or Inguinal Adenopathy Neurological: Cranial nerves II-XII grossly intact, Neuro grossly intact Psych/Mental Status: Normal Affect, Appropriate Vitals/I&O's: Vital Signs Temp Pulse Resp BP Pulse Ox 99.6 F H 89 20 H 105/48 L 93 07/09/19 05:26 07/09/19 05:26 07/09/19 05:26 07/09/19 05:26 07/09/19 05:26 Oxygen Delivery Method Room Air Weight: 79.9 kg Body Mass Index (BMI) 23.2 Finger Stick Blood Glucose 92 Intake and Output for Last 24 Hours 07/07/19 07/08/19 07/09/19 23:59 23:59 23:59 Intake Total 1160.05 / 1160.05 3194.25 / 3694.25 2234.75 / 2234.75 Output Total 400 / 400 1725 / 2475 1650 / 1650 Balance 760.05 / 760.05 1469.25 / 1219.25 584.75 / 584.75 Microbiology Past 72 Hours 07/07/19 22:30 Wound - Left Foot Gram Stain - Final 07/07/19 22:30 Wound - Left Foot Wound Culture - Preliminary Streptococcus group G Laboratory Results 07/07/19 21:04: Diff Path Review Reviewed 07/08/19 02:50: Diff Path Review Reviewed 07/08/19 08:00: S.aureus Protein A PCR NEGATIVE, MRSA (PCR) Negative 07/08/19 14:13: POC Glucose 90 07/08/19 15:51: POC Glucose 92 Current Medications Acetaminophen (Tylenol) 650 mg PO Q6H PRN PRN PRN Reason: Pain Score 1-10/Temp > 100.7 F Atorvastatin Calcium (Lipitor) 40 mg PO QHS COUNT INCLUDES THE [facility] Last Admin: 07/08/19 20:40 Dose: 40 mg Documented by: Duloxetine HCl (Cymbalta) 30 mg PO DAILY COUNT INCLUDES THE [facility] Sodium Chloride () 1,000 mls @ 100 mls/hr IV .Q10H COUNT [facility]CLUDES [facility] Last Admin: 07/09/19 01:15 Dose: 100 mls/hr Documented by: Piperacillin Sod/Tazobactam (Sod 3.375 gm/ Sodium Chloride) 50 mls @ 12.5 mls/hr IV Q8 COUNT [facility]CLUDES [facility] Last Admin: 07/09/19 05:32 Dose: 12.5 mls/hr Documented by: Sodium Chloride () 250 mls @ 15 mls/hr IV .[id number] PRN PRN Reason: Saline Flush Last Infusion: 07/09/19 05:35 Dose: 0 mls/hr Documented by: Sodium Chloride () 250 mls @ 15 mls/hr IV .[id number] PRN PRN Reason: Additional IVPB Infusion Levothyroxine Sodium (Synthroid) 75 mcg PO DAILY@0600 COUNT INCLUDES THE [facility] Last Admin: 07/09/19 05:32 Dose: 75 mcg Documented by: Metoprolol Tartrate (Lopressor (Beta Alisha)) 25 mg PO BID COUNT INCLUDES THE [facility] Last Admin: 07/08/19 20:28 Dose: Not Given Documented by: Nutritional Formula (Lactose Free) (Ensure Enlive) 120 ml PO 4X/DAY COUNT INCLUDES THE [facility] Last Admin: 07/08/19 20:36 Dose: 120 ml Documented by: Ondansetron HCl (Zofran) 4 mg IV Q8H PRN PRN PRN Reason: NAUSEA/VOMITING Sodium Chloride () 10 - 40 ml IV UD PRN PRN Reason: SALINE FLUSH Last Admin: 07/08/19 10:17 Dose: 40 ml Documented by: STROKE Vital Signs/Narrative: Vital Signs Temp Pulse Resp BP Pulse Ox 07/09/19 05:26 99.6 F H 89 20 H 105/48 L 93 Medical Necessity - Tobacco Use Smoking Status: Current every day smoker Tobacco Use: Cigarettes Assessment/Plan All Active Problems Nausea and vomiting (Acute) Redness of the left leg and foot (Acute) Type 2 diabetes mellitus with foot ulcer (Acute) Type 2 diabetes mellitus with foot ulcer (Acute) 1. POD #1, s/p TMA, debridement of left foot for severe left foot infection/cellulitis/osteomyelitis (wound probe to bone) His pain is controlled, stable vitals Wound care and management per podiatry PT/OT to evaluate and treat 2. Severe sepsis secondary to Streptococcus G severe left foot infection/cellulitis/osteomyelitis (wound probe to bone) Pre-diabetic, HgbA1c 6.1 H/o stepping on glass 2 weeks ago; was managing conservatively WBC is improved, blood and wound cultures growing streptococcus, s/p wound debridement and TMA MRSA PCR is negative, was on IV Zosyn(day 3) Will consult ID 3. CAD s/p CABG/Hypertension/Hyperlipidemia Continue on metoprolol and statin Will resume aspirin 4. Hypothyroidism, on levothyroxine 5. Anxiety/depression, on Cymbalta 6. DVT PPx- Lovenox [place] Inpatient E&M: 85664 Subs Hosp L2
[2019-07-09 07:46] LABS: Absolute Neutrophil Count 10.3 X10^3/uL (2.0-7.7); Basophil# 0.06 X10^3/uL; Basophil% 0.5 % (0-1); Eosinophil# 0.06 X10^3/uL; Eosinophils% 0.5 % (0-5); Hematocrit 33.4 % (40-54); Hemoglobin 10.8 g/dL (13.0-16.5); Lymphocyte % 8.5 % (19-41); Mean Corp Hgb Conc 32.3 g/dL (32-36); Mean Corpuscular Volume 80.3 fL (80-94); Mean Platelet Vol. 10.1 fl (6.2-12.0); Monocyte# 1.24 X10^3/uL; Monocyte% 9.6 % (0-10); NRBC Flagged by Analyzer 0 % (0-5); Neutrophil # 10.31 X10^3/uL (2.7-7.7); Neutrophil % 80.1 % (47-70); Platelet Count 259 K/mm3 (150-450); RBC Distribution Width SD 44.4 fl (35.1-43.9); Red Blood Count 4.16 M/mm3 (4.6-6.2); White Blood Count 12.9 K/mm3 (4.4-11.0)
[2019-07-09 08:02] LABS: ALB/GLOB Ratio 0.4 RATIO (0.9-2.4); AST(SGOT) 16 U/L (15-37); Alanine Aminotransfer ALT/SGPT 14 U/L (16-61); Albumin, Serum 1.6 g/dL (3.2-5.0); Alkaline Phosphatase 129 U/L (45-117); Anion Gap 7 (5-15); BUN 9 mg/dL (7-18); BUN/Creat Ratio 11.7 RATIO (10-20); Calcium,Total 7.9 mg/dL (8.5-10.1); Chloride 108 mmol/L (98-107); Creatinine, Serum 0.77 mg/dL (0.70-1.30); EST Glomerular Filtration Rate 109 mL/min (>60); Est Glom Filt Rate - Afr Amer 131 mL/min (>60); Estimated Creatinine Clearance 109.53 ml/min; Globulin 3.9 g/dL (2.2-4.2); Glucose 110 mg/dL (74-106); Potassium 3.6 mmol/L (3.5-5.1); Protein, Total 5.5 g/dL (6.4-8.2); Sodium Level 138 mmol/L (136-145)
[2019-07-09] MEDS: Metoprolol Tartrate 25 MG Tablet PO ×2 (09:27→21:39)
[2019-07-09] MEDS: DULoxetine Hcl 30 MG Capsule PO (09:27)
[2019-07-09] MEDS: Acetaminophen 325 MG Tablet 650 MG PO (09:27)
--- NOTE | 2019-07-09 10:56 | PCM.PROGNOTE ---
Subjective: Patient was seen today for follow up on left foot. He relates he is feeling well today, no complaints of fever, chills, nausea or vomiting. He is resting comfortably in bed with no overnight events, no strikethrough on dressing. - Physical Exam Vitals/I&O's: Vital Signs Temp Pulse Resp BP Pulse Ox 98.5 F 88 16 123/55 H 92 07/09/19 09:20 07/09/19 09:27 07/09/19 09:20 07/09/19 09:20 07/09/19 09:20 Oxygen Delivery Method Bi-pap Weight: 79.9 kg Body Mass Index (BMI) 23.2 Finger Stick Blood Glucose 92 Intake and Output for Last 24 Hours 07/07/19 07/08/19 07/09/19 23:59 23:59 23:59 Intake Total 1160.05 / 1160.05 3194.25 / 3694.25 3191.42 / 3191.42 Output Total 400 / 400 1725 / 2475 1650 / 1650 Balance 760.05 / 760.05 1469.25 / 1219.25 1541.42 / 1541.42 General: Alert, Oriented x3, Cooperative, No apparent distress Extremities: - - s/p TMA debridement left foot, cellulitis and edema definitely improving and resolving, the remaining tissues at the debridement site overall healthy and viable, slight bruising dorsal foot and some medial dorsal present c/w surgery, no purulence, no maloder, no fluctuance, no crepitus, no visible abscess, no pain present, sensation is significantly diminished c/w peripheral neuropathy - chronic. Right foot with callus sub 2nd met head with no open lesion or evidence of infection to the right foot. Right foot with palpable DP and PT pulses but unable to palpate DP or PT pulse left foot. Psych/Mental Status: Alert and oriented to time, place, person, mood and affect Microbiology Past 72 Hours 07/08/19 Unknown Tissue - Left Foot Gram Stain - Final 07/08/19 Unknown Tissue - Left Foot Gram Stain - Final 07/07/19 22:30 Wound - Left Foot Gram Stain - Final 07/07/19 22:30 Wound - Left Foot Wound Culture - Preliminary Streptococcus group G Staphylococcus species Laboratory Results 07/08/19 14:13: POC Glucose 90 07/08/19 15:51: POC Glucose 92 07/09/19 07:25: WBC 12.9 H, RBC 4.16 L, Hgb 10.8 L, Hct 33.4 L, MCV 80.3, MCH 26.0 L, MCHC 32.3, RDW Std Deviation 44.4 H, RDW Coeff of Jesus 15.0 H, Plt Count 259, MPV 10.1, Immature Gran % (Auto) 0.800, Neut % (Auto) 80.1 H, Lymph % (Auto) 8.5 L, [place] % (Auto) 9.6, Eos % (Auto) 0.5, Baso % (Auto) 0.5, Absolute Neuts (auto) 10.3 H, Absolute Lymphs (auto) 1.10, Nucleated RBC % 0 07/09/19 07:25: Sodium 138, Potassium 3.6, Chloride 108 H, Carbon Dioxide 23.0, Anion Gap 7, BUN 9, Creatinine 0.77, Estim Creat Clear Calc 109.53, Est GFR (MDRD) Af Amer 131, Est GFR (MDRD) Non-Af 109, BUN/Creatinine Ratio 11.7, Glucose 110 H, Calcium 7.9 L, Total Bilirubin 0.80, AST 16, ALT 14 L, Alkaline Phosphatase 129 H, Total Protein 5.5 L, Albumin 1.6 L, Globulin 3.9, Albumin/Globulin Ratio 0.4 L Current Medications Acetaminophen (Tylenol) 650 mg PO Q6H PRN PRN PRN Reason: Pain Score 1-10/Temp > 100.7 F Last Admin: 07/09/19 09:27 Dose: 650 mg Documented by: Aspirin (Aspirin) 325 mg PO DAILY@0800 REPLACED BY [facility] Atorvastatin Calcium (Lipitor) 40 mg PO QHS REPLACED BY [facility] Last Admin: 07/08/19 20:40 Dose: 40 mg Documented by: Duloxetine HCl (Cymbalta) 30 mg PO DAILY REPLACED BY [facility] Last Admin: 07/09/19 09:27 Dose: 30 mg Documented by: Piperacillin Sod/Tazobactam (Sod 3.375 gm/ Sodium Chloride) 50 mls @ 12.5 mls/hr IV Q8 REPLACED BY [facility] Last Infusion: 07/09/19 09:32 Dose: Infused Documented by: Sodium Chloride () 250 mls @ 15 mls/hr IV .[id number] PRN PRN Reason: Saline Flush Last Infusion: 07/09/19 09:32 Dose: 15 mls/hr Documented by: Sodium Chloride () 250 mls @ 15 mls/hr IV .[id number] PRN PRN Reason: Additional IVPB Infusion Levothyroxine Sodium (Synthroid) 75 mcg PO DAILY@0600 REPLACED BY [facility] Last Admin: 07/09/19 05:32 Dose: 75 mcg Documented by: Metoprolol Tartrate (Lopressor (Beta Alisha)) 25 mg PO BID REPLACED BY [facility] Last Admin: 07/09/19 09:27 Dose: 25 mg Documented by: Nutritional Formula (Lactose Free) (Ensure Enlive) 120 ml PO 4X/DAY REPLACED BY [facility] Last Admin: 07/09/19 09:27 Dose: 120 ml Documented by: Ondansetron HCl (Zofran) 4 mg IV Q8H PRN PRN PRN Reason: NAUSEA/VOMITING Sodium Chloride () 10 - 40 ml IV UD PRN PRN Reason: SALINE FLUSH Last Admin: 07/08/19 10:17 Dose: 40 ml Documented by: Medical Necessity - Tobacco Use Smoking Status: Current every day smoker Tobacco Use: Cigarettes Assessment/Plan All Active Problems Nausea and vomiting (Acute) Redness of the left leg and foot (Acute) Type 2 diabetes mellitus with foot ulcer (Acute) Type 2 diabetes mellitus with foot ulcer (Acute) Necrotic ulcer down to bone w/ left lower extremity abscess, osteomyelitis and cellulitis w/ gas s/p debridement TMA Diabetic neuropathy 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 Cellulitis improving. Flushed site with normal saline solution, packed with gauze, painted site w/ betadine solution, applied overlying gauze, kerlix and philip dressing. Reviewed culture results so far which show strep G and staph, finals pending, continue with IV antibiotics. Strict nonweightbearing left foot, keep left foot elevated at all times - otherwise risk of bleeding. Suspect lower extremity vascular disease, spoke with Dr. Díaz and nicho to proceed with LEAS as ordered. Recommended tobacco/smoking cessation - reviewed rationale of this with patient. Will continue to follow closely.
--- NOTE | 2019-07-09 12:40 | NURSING ---
Dr Roberts had been in and changed the dressing to the left foot today.
--- NOTE | 2019-07-09 14:35 | CASEMGMT ---
Therapy was unable to see patient today due to his foot. They talked with him about possibly going to a halfway. He was resistant at first, but then said he would think about it. SW to follow up Friday regarding d/c plan. Jillian BURCH MSW
--- NOTE | 2019-07-09 16:45 | PCM.HP.ID ---
Reason for Consult: osteo Consulted by: Dr. Mcguire History of Present Illness: The patient is a 63 year old M with DM neuropathy, prior L foot osteo, presented with one week of progressive L foot swelling, foul odor, and redness extending up to knee. Thinks he stepped on glass several weeks ago. No fever, no recent abx. Admitted here, started on vanc/zosyn. MRI done, taken to OR by Dr. Roberts for L TMA on 07/07. Feeling ok, some foot pain. Vanc has been stopped. Full ROS performed and neg except as noted above. - Medical History Past Medical History (Chronic Problems): Chronic Problems Hypothyroidism (Chronic) History of hyperlipidemia (Chronic) History of gastroesophageal reflux (GERD) (Chronic) Deep venous thrombosis of upper extremity (Chronic) CAD (coronary artery disease) (Chronic) Benign essential hypertension (Chronic) Allergies/Adverse Reactions: Allergies colesevelam HCl [From WelChol] Allergy (Verified 07/07/19 19:31) Rash dicyclomine Allergy (Verified 07/07/19 19:31) Rash divalproex sodium [From Depakote] Allergy (Verified 07/07/19 19:31) Unknown rofecoxib [From Vioxx] Allergy (Verified 07/07/19 19:31) Rash Home Medications: Ambulatory Orders Medication Instructions Recorded Levothyroxine [Synthroid] 75 mcg PO DAILY 09/01/13 Metoprolol Tartrate 25 mg PO BID 09/01/13 Aspirin 325 mg PO DAILY@0800 07/09/17 Duloxetine HCl 30 mg PO DAILY 07/07/19 Rosuvastatin Calcium [Crestor] 20 mg PO DAILY 07/07/19 - Social History SMOKING STATUS:: Current every day smoker Vital Signs Temp Pulse Resp BP Pulse Ox 98.5 F 88 16 123/55 H 92 07/09/19 09:20 07/09/19 09:27 07/09/19 09:20 07/09/19 09:20 07/09/19 09:20 Oxygen Delivery Method Room Air Weight: 79.9 kg Body Mass Index (BMI) 23.2 Finger Stick Blood Glucose 92 Microbiology Past 72 Hours 07/08/19 Unknown Gram Stain - Final Tissue - Left Foot Wound Culture - Preliminary Streptococcus group G 07/08/19 Unknown Gram Stain - Final Tissue - Left Foot Wound Culture - Preliminary Streptococcus group G 07/07/19 22:30 Gram Stain - Final Wound - Left Foot Wound Culture - Preliminary Streptococcus group G Staphylococcus species Laboratory Tests Past 24 Hrs 07/09/19 07/09/19 07:25 07:25 WBC 12.9 H RBC 4.16 L Hgb 10.8 L Hct 33.4 L MCV 80.3 MCH 26.0 L MCHC 32.3 RDW Std Deviation 44.4 H RDW Coeff of Jesus 15.0 H Plt Count 259 MPV 10.1 Immature Gran % (Auto) 0.800 Neut % (Auto) 80.1 H Lymph % (Auto) 8.5 L [place] % (Auto) 9.6 Eos % (Auto) 0.5 Baso % (Auto) 0.5 Absolute Neuts (auto) 10.3 H Absolute Lymphs (auto) 1.10 Nucleated RBC % 0 Sodium 138 Potassium 3.6 Chloride 108 H Carbon Dioxide 23.0 Anion Gap 7 BUN 9 Creatinine 0.77 Estim Creat Clear Calc 109.53 Est GFR (MDRD) Af Amer 131 Est GFR (MDRD) Non-Af 109 BUN/Creatinine Ratio 11.7 Glucose 110 H Calcium 7.9 L Total Bilirubin 0.80 AST 16 ALT 14 L Alkaline Phosphatase 129 H Total Protein 5.5 L Albumin 1.6 L Globulin 3.9 Albumin/Globulin Ratio 0.4 L - Other Studies Radiology: [] reviewed Other Studies: [] Route of nutrition/ use of supplements: [] Nutritional Intake: [] IV Site: [] Waggoner Catheter: [] - Physical Exam General: Alert, Oriented x3, Cooperative, No apparent distress HEENT: Atraumatic, PERRLA, EOMI Neck: Supple, No Nodes Lungs: Clear to auscultation, Normal air movement Cardiovascular: Regular rate, Regular Rhythm Abdomen: Soft, Non Tender, Non-Distended Extremities: Edema - LLE Skin: Rash Present - redness fading on L boyce IV Site: Peripheral, without redness Musculoskeletal: No Tenderness to Palpation of Joints or Extremities Neurological: Cranial nerves II-XII grossly intact - Assessment/Plan Antibiotics: [] Assessment/Plan: [] severe sepsis (low grade fever, leukocytosis, tachycardia, lactic acidosis) due to L foot osteo with DM neuropathy - wound cx with staph and Group G strep. MRSA pcr neg. Taken to OR for TMA by Dr. Roberts on 07/08/19. Surgical cx and clearance fragment (+) so far for strep. With good source control but not complete resection, plan at this point will be for 6 week course of duricef 1gm bid. Plan may change depending on further identification of the strep from the wound culture. Will narrow abx to unasyn. Will follow, thank you, d/w Dr. Mcguire.
[2019-07-09] MEDS: Atorvastatin Calcium 40 MG Tablet PO (21:40)
[2019-07-10 04:09] VITALS: BP 127/66; PULSE 69; RESP 16; TEMP 37.4; O2SAT 94
[2019-07-10] MEDS: 0.9% Saline Lock 10 ML Syringe IV ×3 (05:55→17:33)
[2019-07-10] MEDS: Levothyroxine 75 MCG Tablet PO (05:55)
--- NOTE | 2019-07-10 08:02 | PN_ITS ---
Subjective: Patient was seen this morning for follow up on left foot, he has no complaints at this time. Temp 99.3 F, but patient denies any fever, chills, nausea or vomiting. Patient also has a callus on the right foot which needs to be reduced. - Physical Exam Vitals/I&O's: Vital Signs Temp Pulse Resp BP Pulse Ox 99.3 F H 69 16 127/66 H 94 07/10/19 04:09 07/10/19 04:09 07/10/19 04:09 07/10/19 04:09 07/10/19 04:09 Oxygen Delivery Method Room Air Weight: 79.9 kg Body Mass Index (BMI) 23.2 Finger Stick Blood Glucose 92 Intake and Output for Last 24 Hours 07/08/19 07/09/19 07/10/19 23:59 23:59 23:59 Intake Total 3194.25 / 3694.25 4979.67 / 4979.67 751.5 / 751.5 Output Total 1725 / 2475 3700 / 3700 800 / 800 Balance 1469.25 / 1219.25 1279.67 / 1279.67 -48.5 / -48.5 General: Alert, Oriented x3, Cooperative, No apparent distress Extremities: - - s/p TMA debridement left foot, cellulitis and edema continue to improve, the remaining tissues at the debridement site overall healthy and viable, there is small amount of serosanguinous drainage from medial site with possible scant purulence from site, no fluctuance, no crepitus, no visible abscess, no pain present, sensation is significantly diminished c/w peripheral neuropathy - chronic. Right foot with callus sub 2nd met head with no open lesion or evidence of infection to the right foot. Right foot with palpable DP and PT pulses but unable to palpate DP or PT pulse left foot. Psych/Mental Status: Alert and oriented to time, place, person, mood and affect Microbiology Past 72 Hours 07/08/19 Unknown Tissue - Left Foot Gram Stain - Final 07/08/19 Unknown Tissue - Left Foot Wound Culture - Preliminary Streptococcus group G 07/08/19 Unknown Tissue - Left Foot Gram Stain - Final 07/08/19 Unknown Tissue - Left Foot Wound Culture - Preliminary Streptococcus group G 07/07/19 22:30 Wound - Left Foot Gram Stain - Final 07/07/19 22:30 Wound - Left Foot Wound Culture - Preliminary Streptococcus group G Staphylococcus species Laboratory Results 07/09/19 07:25: Sodium 138, Potassium 3.6, Chloride 108 H, Carbon Dioxide 23.0, Anion Gap 7, BUN 9, Creatinine 0.77, Estim Creat Clear Calc 109.53, Est GFR ( RD) Af Amer 131, Est GFR (MDRD) Non-Af 109, BUN/Creatinine Ratio 11.7, Glucose 110 H, Calcium 7.9 L, Total Bilirubin 0.80, AST 16, ALT 14 L, Alkaline Phosphatase 129 H, Total Protein 5.5 L, Albumin 1.6 L, Globulin 3.9, Albumin/Globulin Ratio 0.4 L Current Medications Acetaminophen (Tylenol) 650 mg PO Q6H PRN PRN PRN Reason: Pain Score 1-10/Temp > 100.7 F Last Admin: 07/09/19 09:27 Dose: 650 mg Documented by: Aspirin (Aspirin) 325 mg PO DAILY@0800 COUNTS INCLUDE 234 BEDS AT THE [facility] Atorvastatin Calcium (Lipitor) 40 mg PO QHS COUNTS INCLUDE 234 BEDS AT THE [facility] Last Admin: 07/09/19 21:40 Dose: 40 mg Documented by: Duloxetine HCl (Cymbalta) 30 mg PO DAILY COUNTS INCLUDE 234 BEDS AT THE [facility] Last Admin: 07/09/19 09:27 Dose: 30 mg Documented by: Sodium Chloride () 250 mls @ 15 mls/hr IV .[id number] PRN PRN Reason: Saline Flush Last Infusion: 07/09/19 22:00 Dose: Infused Documented by: Sodium Chloride () 250 mls @ 15 mls/hr IV .[id number] PRN PRN Reason: Additional IVPB Infusion Last Infusion: 07/10/19 06:40 Dose: Infused Documented by: Ampicillin Sodium/Sulbactam (Sodium 3 gm/ Sodium Chloride) 112 mls @ 150 mls/hr IV Q6 COUNTS INCLUDE 234 BEDS AT THE [facility] Last Infusion: 07/10/19 06:40 Dose: Infused Documented by: Levothyroxine Sodium (Synthroid) 75 mcg PO DAILY@0600 COUNTS INCLUDE 234 BEDS AT THE [facility] Last Admin: 07/10/19 05:55 Dose: 75 mcg Documented by: Metoprolol Tartrate (Lopressor (Beta Alisha)) 25 mg PO BID COUNTS INCLUDE 234 BEDS AT THE [facility] Last Admin: 07/09/19 21:39 Dose: 25 mg Documented by: Nutritional Formula (Robert - [place] Flavor) [facility] Last Admin: 07/09/19 17:03 Dose: 1 packet Documented by: Nutritional Formula (Lactose Free) (Ensure Enlive) 120 ml PO 4X/DAY COUNTS INCLUDE 234 BEDS AT THE [facility] Last Admin: 07/09/19 21:39 Dose: 120 ml Documented by: Ondansetron HCl (Zofran) 4 mg IV Q8H PRN PRN PRN Reason: NAUSEA/VOMITING Sodium Chloride () 10 - 40 ml IV UD PRN PRN Reason: SALINE FLUSH Last Admin: 07/10/19 05:55 Dose: 10 ml Documented by: Medical Necessity - Tobacco Use Smoking Status: Current every day smoker Tobacco Use: Cigarettes Assessment/Plan All Active Problems Nausea and vomiting (Acute) Redness of the left leg and foot (Acute) Type 2 diabetes mellitus with foot ulcer (Acute) Type 2 diabetes mellitus with foot ulcer (Acute) Necrotic ulcer down to bone w/ left lower extremity abscess, osteomyelitis and cellulitis w/ gas s/p debridement TMA on 07/08/2019 Diabetic neuropathy 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 I remove the sutures from medial aspect of TMA site to allow for further drainage of site. Flushed site with normal saline solution, packed with gauze, painted site w/ betadine solution, applied overlying gauze, kerlix and philip dressing. Ordered q 8 dressing changes via wet to dry using Dakin's solution, 4x4 gauze, kerlix and philip dressing. Reviewed culture results so far which show strep G and staph, finals pending, continue with IV antibiotics. ID/Dr. Almendarez on consult. Strict nonweightbearing left foot, keep left foot elevated. But ok for physical therapy as along as no weightbearing on foot. Reviewed left lower extremity LEAS which showed good arterial flow to foot. Recommended tobacco/smoking cessation - reviewed rationale of this with patient. Callus right foot: This was debrided using a 15 blade, this was done without incident. Will continue to follow closely.
[2019-07-10] MEDS: DULoxetine Hcl 30 MG Capsule PO (08:58)
[2019-07-10] MEDS: Aspirin 325 MG Tablet PO (08:59)
[2019-07-10 09:05] VITALS: BP 127/70; PULSE 69
[2019-07-10] MEDS: Metoprolol Tartrate 25 MG Tablet PO ×2 (09:05→21:22)
[2019-07-10 09:06] VITALS: BP 127/70; PULSE 69; RESP 16; TEMP 36.4; O2SAT 98
--- NOTE | 2019-07-10 09:40 | PN_ITS ---
Reason for Visit: Follow-up on severe sepsis secondary to lower extremity cellulitis/infected ulcer/osteomyelitis/s/p TMA 07/08/19 Subjective: Patient was seen and examined. No acute events overnight. Denies fever or chills. Objective: Physical exam: General: Alert, Oriented x3, Cooperative, No apparent distress HEENT: Atraumatic, PERRLA, EOMI, Normocephalic Oral: Moist Mucosa Neck: Supple Lungs: Clear to auscultation, Normal air movement Cardiovascular: Regular rate, Regular Rhythm, Normal S1, Normal S2, No murmurs Abdomen: Bowel Sounds Present, Soft, Non Tender, Non-Distended, No Hepato- splenomegaly Extremities: Edema and erythema of left lower leg, improving, left foot wrapped up in dressing and AMIE-wraps Skin: No rashes Musculoskeletal: No Tenderness to Palpation of Joints or Extremities Lymphatic: No Cervical, Supraclavicular, or Inguinal Adenopathy Neurological: Cranial nerves II-XII grossly intact, Neuro grossly intact Psych/Mental Status: Normal Affect, Appropriate Vitals/I&O's: Vital Signs Temp Pulse Resp BP Pulse Ox 97.6 F L 69 16 127/70 H 98 07/10/19 09:06 07/10/19 09:06 07/10/19 09:06 07/10/19 09:06 07/10/19 09:06 Oxygen Delivery Method Room Air Weight: 79.9 kg Body Mass Index (BMI) 23.2 Finger Stick Blood Glucose 92 Intake and Output for Last 24 Hours 07/08/19 07/09/19 07/10/19 23:59 23:59 23:59 Intake Total 3194.25 / 3694.25 4979.67 / 4979.67 751.5 / 751.5 Output Total 1725 / 2475 3700 / 3700 800 / 800 Balance 1469.25 / 1219.25 1279.67 / 1279.67 -48.5 / -48.5 Microbiology Past 72 Hours 07/07/19 20:50 Blood Culture (Wb) - Left Forearm Blood Culture - Preliminary No growth in 48 hours. 07/07/19 21:04 Blood Culture (Wb) - Anticubital Right Blood Culture - Preliminary No growth in 48 hours. 07/08/19 Unknown Tissue - Left Foot Gram Stain - Final 07/08/19 Unknown Tissue - Left Foot Wound Culture - Preliminary Streptococcus group G 07/08/19 Unknown Tissue - Left Foot Gram Stain - Final 07/08/19 Unknown Tissue - Left Foot Wound Culture - Preliminary Streptococcus group G 07/07/19 22:30 Wound - Left Foot Gram Stain - Final 07/07/19 22:30 Wound - Left Foot Wound Culture - Preliminary Streptococcus group G Staphylococcus species Current Medications Acetaminophen (Tylenol) 650 mg PO Q6H PRN PRN PRN Reason: Pain Score 1-10/Temp > 100.7 F Last Admin: 07/09/19 09:27 Dose: 650 mg Documented by: Aspirin (Aspirin) 325 mg PO DAILY@0800 [facility] Last Admin: 07/10/19 08:59 Dose: 325 mg Documented by: Atorvastatin Calcium (Lipitor) 40 mg PO QHS [facility] Last Admin: 07/09/19 21:40 Dose: 40 mg Documented by: Duloxetine HCl (Cymbalta) 30 mg PO DAILY [facility] Last Admin: 07/10/19 08:58 Dose: 30 mg Documented by: Sodium Chloride () 250 mls @ 15 mls/hr IV .[id number] PRN PRN Reason: Saline Flush Last Infusion: 07/09/19 22:00 Dose: Infused Documented by: Sodium Chloride () 250 mls @ 15 mls/hr IV .[id number] PRN PRN Reason: Additional IVPB Infusion Last Infusion: 07/10/19 06:40 Dose: Infused Documented by: Ampicillin Sodium/Sulbactam (Sodium 3 gm/ Sodium Chloride) 112 mls @ 150 mls/hr IV Q6 [facility] Last Infusion: 07/10/19 06:40 Dose: Infused Documented by: Levothyroxine Sodium (Synthroid) 75 mcg PO DAILY@0600 [facility] Last Admin: 07/10/19 05:55 Dose: 75 mcg Documented by: Metoprolol Tartrate (Lopressor (Beta Alisha)) 25 mg PO BID [facility] Last Admin: 07/10/19 09:05 Dose: 25 mg Documented by: Nutritional Formula (Robert - [place] Flavor) [facility] Last Admin: 07/10/19 08:58 Dose: 1 packet Documented by: Nutritional Formula (Lactose Free) (Ensure Enlive) 120 ml PO 4X/DAY [facility] Last Admin: 07/10/19 08:59 Dose: 120 ml Documented by: Ondansetron HCl (Zofran) 4 mg IV Q8H PRN PRN PRN Reason: NAUSEA/VOMITING Sodium Chloride () 10 - 40 ml IV UD PRN PRN Reason: SALINE FLUSH Last Admin: 07/10/19 05:55 Dose: 10 ml Documented by: Sodium Hypochlorite (Dakins Solution 0.25% (1/2 Strength)) 1 applic TOPICAL TID SHMUEL; Protocol STROKE Vital Signs/Narrative: Vital Signs Temp Pulse Resp BP Pulse Ox 07/10/19 09:06 97.6 F L 69 16 127/70 H 98 07/10/19 09:05 69 127/70 H Medical Necessity - Tobacco Use Smoking Status: Current every day smoker Tobacco Use: Cigarettes Assessment/Plan All Active Problems Nausea and vomiting (Acute) Redness of the left leg and foot (Acute) Type 2 diabetes mellitus with foot ulcer (Acute) Type 2 diabetes mellitus with foot ulcer (Acute) 1. POD #2, s/p TMA, debridement of left foot for severe left foot infection/cellulitis/osteomyelitis (wound probe to bone) His pain is controlled, stable vitals Wound care and management per podiatry PT/OT to evaluate and treat 2. Severe sepsis secondary to Staph/Streptococcus G severe left foot infection/cellulitis/osteomyelitis (wound probe to bone) Pre-diabetic, HgbA1c 6.1 H/o stepping on glass 2 weeks ago; was managing conservatively WBC is improved, blood and wound cultures growing streptococcus, s/p wound debridement and TMA MRSA PCR is negative, switched to Unasyn IV (day 4 antibiotics) ID consulted 3. CAD s/p CABG/Hypertension/Hyperlipidemia Continue on aspirin, metoprolol and statin 4. Hypothyroidism, on levothyroxine 5. Anxiety/depression, on Cymbalta 6. DVT PPx- Off Lovenox; will resume from tomorrow to avoid bleeding Inpatient E&M: [id number] Subs Hosp L2
[2019-07-10] MEDS: DAKIN'S SOL HALF STRENGTH (=0.25%) 1 APPLIC TOPICAL ×2 (14:29→21:26)
[2019-07-10 14:47] VITALS: BP 117/70; PULSE 64; RESP 18; TEMP 36.7; O2SAT 96
[2019-07-10 20:06] VITALS: BP 121/61; PULSE 72; RESP 18; TEMP 36.8; O2SAT 95
[2019-07-10 21:22] VITALS: BP 129/65; PULSE 69
[2019-07-10] MEDS: Atorvastatin Calcium 40 MG Tablet PO (21:23)
[2019-07-11] MEDS: 0.9% Saline Lock 10 ML Syringe IV ×4 (00:23→17:16)
[2019-07-11 02:03] VITALS: BP 113/64; PULSE 61; RESP 16; TEMP 36.9; O2SAT 93
[2019-07-11] MEDS: Levothyroxine 75 MCG Tablet PO (05:39)
[2019-07-11 07:48] LABS: Absolute Lymphocyte Count 1.16 X10^3/uL (0.83-4.51); Absolute Neutrophil Count 7.5 X10^3/uL (2.0-7.7); Basophil# 0.06 X10^3/uL; Basophil% 0.6 % (0-1); Eosinophil# 0.24 X10^3/uL; Eosinophils% 2.5 % (0-5); Hematocrit 37.5 % (40-54); Lymphocyte # 1.16 X10^3/ul (4.0); Lymphocyte % 11.9 % (19-41); Mean Corpuscular Hgb 25.5 pg (27.0-32.0); Mean Corpuscular Volume 79.6 fL (80-94); Mean Platelet Vol. 9.7 fl (6.2-12.0); Monocyte# 0.72 X10^3/uL; Monocyte% 7.4 % (0-10); NRBC Flagged by Analyzer 0 % (0-5); Neutrophil % 76.9 % (47-70); Platelet Count 386 K/mm3 (150-450); RBC Distribution Width CV 15.2 % (11.6-14.6); RBC Distribution Width SD 44.2 fl (35.1-43.9); Red Blood Count 4.71 M/mm3 (4.6-6.2); White Blood Count 9.8 K/mm3 (4.4-11.0)
[2019-07-11 08:15] LABS: ALB/GLOB Ratio 0.4 RATIO (0.9-2.4); AST(SGOT) 42 U/L (15-37); Alanine Aminotransfer ALT/SGPT 33 U/L (16-61); Albumin, Serum 1.9 g/dL (3.2-5.0); Alkaline Phosphatase 157 U/L (45-117); Anion Gap 4 (5-15); BUN 14 mg/dL (7-18); Calcium,Total 8.8 mg/dL (8.5-10.1); Chloride 109 mmol/L (98-107); Creatinine, Serum 0.74 mg/dL (0.70-1.30); EST Glomerular Filtration Rate 114 mL/min (>60); Est Glom Filt Rate - Afr Amer 138 mL/min (>60); Estimated Creatinine Clearance 113.97 ml/min; Globulin 4.7 g/dL (2.2-4.2); Glucose 103 mg/dL (74-106); Potassium 3.8 mmol/L (3.5-5.1); Protein, Total 6.6 g/dL (6.4-8.2); Sodium Level 139 mmol/L (136-145)
[2019-07-11 08:47] VITALS: BP 116/69; PULSE 66; RESP 16; TEMP 36.5; O2SAT 98
[2019-07-11 08:55] VITALS: BP 116/69; PULSE 66
[2019-07-11] MEDS: Aspirin 325 MG Tablet PO (08:55)
[2019-07-11] MEDS: Metoprolol Tartrate 25 MG Tablet PO ×2 (08:55→22:03)
[2019-07-11] MEDS: DULoxetine Hcl 30 MG Capsule PO (08:55)
--- NOTE | 2019-07-11 09:17 | PCM.PROGNOTE ---
Subjective: Patient was seen this morning for follow up on left foot. He is resting in chair, no complaints. No complaints of fever, chills, nausea or vomiting. - Physical Exam Vitals/I&O's: Vital Signs Temp Pulse Resp BP Pulse Ox 97.7 F L 66 16 116/69 98 07/11/19 08:47 07/11/19 08:55 07/11/19 08:47 07/11/19 08:55 07/11/19 08:47 Oxygen Delivery Method Room Air Weight: 79.9 kg Body Mass Index (BMI) 23.2 Finger Stick Blood Glucose 92 Intake and Output for Last 24 Hours 07/09/19 07/10/19 07/11/19 23:59 23:59 23:59 Intake Total 4979.67 / 4979.67 1375.5 / 1375.5 724 / 724 Output Total 3700 / 3700 2750 / 2750 1125 / 1125 Balance 1279.67 / 1279.67 -1374.5 / -1374.5 -401 / -401 General: Alert, Oriented x3, Cooperative, No apparent distress Extremities: No Calf Tenderness, - - s/p TMA debridement left foot, cellulitis and edema significantly improved, the remaining tissues at the debridement site overall healthy and viable, there is no drainage or purulence today, no fluctuance, no crepitus, no visible abscess, no pain present, sensation is significantly diminished c/w peripheral neuropathy - chronic. No evidence of acute ischemia left foot. Microbiology Past 72 Hours 07/08/19 Unknown Tissue - Left Foot Gram Stain - Final 07/08/19 Unknown Tissue - Left Foot Wound Culture - Final Streptococcus group G 07/08/19 Unknown Tissue - Left Foot Gram Stain - Final 07/08/19 Unknown Tissue - Left Foot Wound Culture - Preliminary Streptococcus group G 07/08/19 Unknown Tissue - Left Foot Anaerobic Culture - Preliminary Checking for anaerobes, further studies to follow. 07/07/19 22:30 Wound - Left Foot Gram Stain - Final 07/07/19 22:30 Wound - Left Foot Wound Culture - Final Streptococcus group G Coag Negative Staph Corynebacterium amycolatum 07/07/19 20:50 Blood Culture (Wb) - Left Forearm Blood Culture - Preliminary No growth in 48 hours. 07/07/19 21:04 Blood Culture (Wb) - Anticubital Right Blood Culture - Preliminary No growth in 48 hours. Laboratory Results 07/11/19 07:35: WBC 9.8, RBC 4.71, Hgb 12.0 L, Hct 37.5 L, MCV 79.6 L, MCH 25.5 L, MCHC 32.0, RDW Std Deviation 44.2 H, RDW Coeff of Jesus 15.2 H, Plt Count 386, MPV 9.7, Immature Gran % (Auto) 0.700, Neut % (Auto) 76.9 H, Lymph % (Auto) 11.9 L, [place] % (Auto) 7.4, Eos % (Auto) 2.5, Baso % (Auto) 0.6, Absolute Neuts (auto) 7.5, Absolute Lymphs (auto) 1.16, Nucleated RBC % 0 07/11/19 07:35: Sodium 139, Potassium 3.8, Chloride 109 H, Carbon Dioxide 26.0, Anion Gap 4 L, BUN 14, Creatinine 0.74, Estim Creat Clear Calc 113.97, Est GFR (MDRD) Af Amer 138, Est GFR (MDRD) Non-Af 114, BUN/Creatinine Ratio 19.0, Glucose 103, Calcium 8.8, Total Bilirubin 0.40, AST 42 H, ALT 33, Alkaline Phosphatase 157 H, Total Protein 6.6, Albumin 1.9 L, Globulin 4.7 H, Albumin/Globulin Ratio 0.4 L Current Medications Acetaminophen (Tylenol) 650 mg PO Q6H PRN PRN PRN Reason: Pain Score 1-10/Temp > 100.7 F Last Admin: 07/09/19 09:27 Dose: 650 mg Documented by: Aspirin (Aspirin) 325 mg PO DAILY@0800 [facility] Last Admin: 07/11/19 08:55 Dose: 325 mg Documented by: Atorvastatin Calcium (Lipitor) 40 mg PO QHS [facility] Last Admin: 07/10/19 21:23 Dose: 40 mg Documented by: Duloxetine HCl (Cymbalta) 30 mg PO DAILY [facility] Last Admin: 07/11/19 08:55 Dose: 30 mg Documented by: Sodium Chloride () 250 mls @ 15 mls/hr IV .[id number] PRN PRN Reason: Saline Flush Last Infusion: 07/09/19 22:00 Dose: Infused Documented by: Sodium Chloride () 250 mls @ 15 mls/hr IV .[id number] PRN PRN Reason: Additional IVPB Infusion Last Infusion: 07/10/19 06:40 Dose: Infused Documented by: Ampicillin Sodium/Sulbactam (Sodium 3 gm/ Sodium Chloride) 112 mls @ 150 mls/hr IV Q6 [facility] Last Infusion: 07/11/19 06:21 Dose: Infused Documented by: Levothyroxine Sodium (Synthroid) 75 mcg PO DAILY@0600 [facility] Last Admin: 07/11/19 05:39 Dose: 75 mcg Documented by: Metoprolol Tartrate (Lopressor (Beta Alisha)) 25 mg PO BID [facility] Last Admin: 07/11/19 08:55 Dose: 25 mg Documented by: Nutritional Formula (Robert [place] Flavor) 1 packet PO BIDCM [facility] Last Admin: 07/11/19 08:55 Dose: 1 packet Documented by: Nutritional Formula (Lactose Free) (Ensure Enlive) 120 ml PO 4X/DAY [facility] Last Admin: 07/11/19 08:55 Dose: 120 ml Documented by: Ondansetron HCl (Zofran) 4 mg IV Q8H PRN PRN PRN Reason: NAUSEA/VOMITING Sodium Chloride () 10 - 40 ml IV UD PRN PRN Reason: SALINE FLUSH Last Admin: 07/11/19 05:36 Dose: 10 ml Documented by: Sodium Hypochlorite (Dakins Solution 0.25% (1/2 Strength)) 1 applic TOPICAL TID [facility]; Protocol Last Admin: 07/11/19 04:51 Dose: Not Given Documented by: Medical Necessity - Tobacco Use Smoking Status: Current every day smoker Tobacco Use: Cigarettes Assessment/Plan All Active Problems Nausea and vomiting (Acute) Redness of the left leg and foot (Acute) Type 2 diabetes mellitus with foot ulcer (Acute) Type 2 diabetes mellitus with foot ulcer (Acute) Necrotic ulcer down to bone w/ left lower extremity abscess, osteomyelitis and cellulitis w/ gas s/p debridement [facility] on 07/08/2019 Diabetic neuropathy 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 Flushed site with normal saline solution, packed with gauze, applied wet to dry dressing using Dakin's solution, 4x4 gauze, kerlix and philip dressing. Reviewed culture results so far which show strep G and staph, finals pending, continue with IV antibiotics. ID/Dr. Almendarez on consult. Strict nonweightbearing left foot, keep left foot elevated. But ok for physical therapy as along as no weightbearing on foot. Reviewed left lower extremity LEAS which showed good arterial flow to foot. Recommended tobacco/smoking cessation - reviewed rationale of this with patient. Will re-evaluate for possible wound vac tomorrow. Discussed possible d/c home as long as patient able stay off of foot (nonweightbearing) and able to get set up with home health for dressing changes. Will continue to follow closely.
--- NOTE | 2019-07-11 10:57 | PN_ITS ---
<Benito Richardson - Last Filed: 07/11/19 10:57> Reason for Visit: left foot osteo. Subjective: No complaints. Pt reluctant to consider SNF placement. Agreeable to wound vac tomorrow. Wants to go to [facility] [place]. no fever/chills. Vitals/I&O's: Vital Signs Temp Pulse Resp BP Pulse Ox 97.7 F L 66 16 116/69 98 07/11/19 08:47 07/11/19 08:55 07/11/19 08:47 07/11/19 08:55 07/11/19 08:47 Oxygen Delivery Method Room Air Weight: 176 lb 2.389 oz Body Mass Index (BMI) 23.2 Finger Stick Blood Glucose 92 Intake and Output for Last 24 Hours 07/09/19 07/10/19 07/11/19 23:59 23:59 23:59 Intake Total 4979.67 / 4979.67 1375.5 / 1375.5 724 / 724 Output Total 3700 / 3700 2750 / 2750 1125 / 1125 Balance 1279.67 / 1279.67 -1374.5 / -1374.5 -401 / -401 General: Alert, Oriented x3, Cooperative HEENT: Atraumatic, PERRLA, EOMI, Normocephalic Neck: Supple, No JVD, Negative Carotid Bruits Lungs: Clear to auscultation, Normal air movement Cardiovascular: Regular rate, No murmurs Abdomen: Bowel Sounds Present, Soft, Non Tender Extremities: No edema, Capillary Refill Less than 3 Seconds Skin: No rashes, No breakdown Musculoskeletal: No Tenderness to Palpation of Joints or Extremities Neurological: Cranial nerves II-XII grossly intact Psych/Mental Status: Normal Affect, Appropriate, Alert and oriented to time, place, person, mood and affect Microbiology Past 72 Hours 07/08/19 Unknown Tissue - Left Foot Gram Stain - Final 07/08/19 Unknown Tissue - Left Foot Wound Culture - Final Streptococcus group G 07/08/19 Unknown Tissue - Left Foot Gram Stain - Final 07/08/19 Unknown Tissue - Left Foot Wound Culture - Preliminary Streptococcus group G 07/08/19 Unknown Tissue - Left Foot Anaerobic Culture - Preliminary Checking for anaerobes, further studies to follow. 07/07/19 22:30 Wound - Left Foot Gram Stain - Final 07/07/19 22:30 Wound - Left Foot Wound Culture - Final Streptococcus group G Coag Negative Staph Corynebacterium amycolatum 07/07/19 20:50 Blood Culture (Wb) - Left Forearm Blood Culture - Preliminary No growth in 48 hours. 07/07/19 21:04 Blood Culture (Wb) - Anticubital Right Blood Culture - Preliminary No growth in 48 hours. Laboratory Results 07/11/19 07:35: WBC 9.8, RBC 4.71, Hgb 12.0 L, Hct 37.5 L, MCV 79.6 L, MCH 25.5 L, MCHC 32.0, RDW Std Deviation 44.2 H, RDW Coeff of Jesus 15.2 H, Plt Count 386, MPV 9.7, Immature Gran % (Auto) 0.700, Neut % (Auto) 76.9 H, Lymph % (Auto) 11.9 L, [place] % (Auto) 7.4, Eos % (Auto) 2.5, Baso % (Auto) 0.6, Absolute Neuts (auto) 7.5, Absolute Lymphs (auto) 1.16, Nucleated RBC % 0 07/11/19 07:35: Sodium 139, Potassium 3.8, Chloride 109 H, Carbon Dioxide 26.0, Anion Gap 4 L, BUN 14, Creatinine 0.74, Estim Creat Clear Calc 113.97, Est GFR (MDRD) Af Amer 138, Est GFR (MDRD) Non-Af 114, BUN/Creatinine Ratio 19.0, Glucose 103, Calcium 8.8, Total Bilirubin 0.40, AST 42 H, ALT 33, Alkaline Phosphatase 157 H, Total Protein 6.6, Albumin 1.9 L, Globulin 4.7 H, Albumin/Globulin Ratio 0.4 L Current Medications Acetaminophen (Tylenol) 650 mg PO Q6H PRN PRN PRN Reason: Pain Score 1-10/Temp > 100.7 F Last Admin: 07/09/19 09:27 Dose: 650 mg Documented by: Aspirin (Aspirin) 325 mg PO DAILY@0800 [facility] Last Admin: 07/11/19 08:55 Dose: 325 mg Documented by: Atorvastatin Calcium (Lipitor) 40 mg PO QHS [facility] Last Admin: 07/10/19 21:23 Dose: 40 mg Documented by: Duloxetine HCl (Cymbalta) 30 mg PO DAILY [facility] Last Admin: 07/11/19 08:55 Dose: 30 mg Documented by: Sodium Chloride () 250 mls @ 15 mls/hr IV .[id number] PRN PRN Reason: Saline Flush Last Infusion: 07/09/19 22:00 Dose: Infused Documented by: Sodium Chloride () 250 mls @ 15 mls/hr IV .[id number] PRN PRN Reason: Additional IVPB Infusion Last Infusion: 07/10/19 06:40 Dose: Infused Documented by: Ampicillin Sodium/Sulbactam (Sodium 3 gm/ Sodium Chloride) 112 mls @ 150 mls/hr IV Q6 [facility] Last Infusion: 07/11/19 06:21 Dose: Infused Documented by: Levothyroxine Sodium (Synthroid) 75 mcg PO DAILY@0600 [facility] Last Admin: 07/11/19 05:39 Dose: 75 mcg Documented by: Metoprolol Tartrate (Lopressor (Beta Alisha)) 25 mg PO BID [facility] Last Admin: 07/11/19 08:55 Dose: 25 mg Documented by: Nutritional Formula (Robert - [place] Flavor) 1 packet PO BIDCM [facility] Last Admin: 07/11/19 08:55 Dose: 1 packet Documented by: Nutritional Formula (Lactose Free) (Ensure Enlive) 120 ml PO 4X/DAY [facility] Last Admin: 07/11/19 08:55 Dose: 120 ml Documented by: Ondansetron HCl (Zofran) 4 mg IV Q8H PRN PRN PRN Reason: NAUSEA/VOMITING Sodium Chloride () 10 - 40 ml IV UD PRN PRN Reason: SALINE FLUSH Last Admin: 07/11/19 05:36 Dose: 10 ml Documented by: Sodium Hypochlorite (Dakins Solution 0.25% (1/2 Strength)) 1 applic TOPICAL TID [facility]; Protocol Last Admin: 07/11/19 04:51 Dose: Not Given Documented by: STROKE Vital Signs/Narrative: Vital Signs Temp Pulse Resp BP Pulse Ox 07/11/19 08:55 66 116/69 07/11/19 08:47 97.7 F L 66 16 116/69 98 Medical Necessity - Tobacco Use Smoking Status: Current every day smoker Tobacco Use: Cigarettes Assessment/Plan All Active Problems Nausea and vomiting (Acute) Redness of the left leg and foot (Acute) Type 2 diabetes mellitus with foot ulcer (Acute) Type 2 diabetes mellitus with foot ulcer (Acute) 1. Severe sepsis, 2/2 LLE osteo s/p TMA 07/07 - cx with group g strep continue unasyn. ID / podiatry following. Plan for wound vac tomorrow. Remain NWB. No fever/leukocytosis. Blood cxs negative. 2. T2DM - a1c 6.1. Diet controlled. 3. Hx CAD with prior CABG - aspirin, statin, metoprolol 4. hypothyroidism - synthroid 5. Anx / depression - duloxetine. 6. Homelessness - will complicate overall morbidity and mortality, decrease li keliness of compliance and success of therapy for #1. DVT ppx: lovenox DC planning: SNF vs [facility] This patient was seen by Benito Richardosn PA-C under the supervision of Dr. Mcguire. <Char Mcguire - Last Filed: 07/11/19 11:48> Vitals/I&O's: Vital Signs Temp Pulse Resp BP Pulse Ox 97.7 F L 66 16 116/69 98 07/11/19 08:47 07/11/19 08:55 07/11/19 08:47 07/11/19 08:55 07/11/19 08:47 Oxygen Delivery Method Room Air Weight: 79.9 kg Body Mass Index (BMI) 23.2 Finger Stick Blood Glucose 92 Intake and Output for Last 24 Hours 07/09/19 07/10/19 07/11/19 23:59 23:59 23:59 Intake Total 4979.67 / 4979.67 1375.5 / 1375.5 1074 / 1074 Output Total 3700 / 3700 2750 / 2750 1425 / 1425 Balance 1279.67 / 1279.67 -1374.5 / -1374.5 -351 / -351 Microbiology Past 72 Hours 07/08/19 Unknown Tissue - Left Foot Gram Stain - Final 07/08/19 Unknown Tissue - Left Foot Wound Culture - Final Streptococcus group G 07/08/19 Unknown Tissue - Left Foot Gram Stain - Final 07/08/19 Unknown Tissue - Left Foot Wound Culture - Preliminary Streptococcus group G 07/08/19 Unknown Tissue - Left Foot Anaerobic Culture - Preliminary Checking for anaerobes, further studies to follow. 07/07/19 22:30 Wound - Left Foot Gram Stain - Final 07/07/19 22:30 Wound - Left Foot Wound Culture - Final Streptococcus group G Coag Negative Staph Corynebacterium amycolatum 07/07/19 20:50 Blood Culture (Wb) - Left Forearm Blood Culture - Preliminary No growth in 48 hours. 07/07/19 21:04 Blood Culture (Wb) - Anticubital Right Blood Culture - Preliminary No growth in 48 hours. Laboratory Results 07/11/19 07:35: WBC 9.8, RBC 4.71, Hgb 12.0 L, Hct 37.5 L, MCV 79.6 L, MCH 25.5 L, MCHC 32.0, RDW Std Deviation 44.2 H, RDW Coeff of Jesus 15.2 H, Plt Count 386, MPV 9.7, Immature Gran % (Auto) 0.700, Neut % (Auto) 76.9 H, Lymph % (Auto) 11.9 L, [place] % (Auto) 7.4, Eos % (Auto) 2.5, Baso % (Auto) 0.6, Absolute Neuts (auto) 7.5, Absolute Lymphs (auto) 1.16, Nucleated RBC % 0 07/11/19 07:35: Sodium 139, Potassium 3.8, Chloride 109 H, Carbon Dioxide 26.0, Anion Gap 4 L, BUN 14, Creatinine 0.74, Estim Creat Clear Calc 113.97, Est GFR (MDRD) Af Amer 138, Est GFR (MDRD) Non-Af 114, BUN/Creatinine Ratio 19.0, Glucose 103, Calcium 8.8, Total Bilirubin 0.40, AST 42 H, ALT 33, Alkaline Phosphatase 157 H, Total Protein 6.6, Albumin 1.9 L, Globulin 4.7 H, Albumin/Globulin Ratio 0.4 L Current Medications Acetaminophen (Tylenol) 650 mg PO Q6H PRN PRN PRN Reason: Pain Score 1-10/Temp > 100.7 F Last Admin: 07/09/19 09:27 Dose: 650 mg Documented by: Aspirin (Aspirin) 325 mg PO DAILY@0800 [facility] Last Admin: 07/11/19 08:55 Dose: 325 mg Documented by: Atorvastatin Calcium (Lipitor) 40 mg PO QHS [facility] Last Admin: 07/10/19 21:23 Dose: 40 mg Documented by: Duloxetine HCl (Cymbalta) 30 mg PO DAILY [facility] Last Admin: 07/11/19 08:55 Dose: 30 mg Documented by: Enoxaparin Sodium (Lovenox) 40 mg SC DAILY [facility] Last Admin: 07/11/19 11:24 Dose: 40 mg Documented by: Sodium Chloride () 250 mls @ 15 mls/hr IV .[id number] PRN PRN Reason: Saline Flush Last Infusion: 07/09/19 22:00 Dose: Infused Documented by: Sodium Chloride () 250 mls @ 15 mls/hr IV .[id number] PRN PRN Reason: Additional IVPB Infusion Last Infusion: 07/10/19 06:40 Dose: Infused Documented by: Ampicillin Sodium/Sulbactam (Sodium 3 gm/ Sodium Chloride) 112 mls @ 150 mls/hr IV Q6 [facility] Last Admin: 07/11/19 11:24 Dose: 150 mls/hr Documented by: Levothyroxine Sodium (Synthroid) 75 mcg PO DAILY@0600 [facility] Last Admin: 07/11/19 05:39 Dose: 75 mcg Documented by: Metoprolol Tartrate (Lopressor (Beta Alisha)) 25 mg PO BID [facility] Last Admin: 07/11/19 08:55 Dose: 25 mg Documented by: Nutritional Formula (Robert - [place] Flavor) 1 packet PO BIDCM [facility] Last Admin: 07/11/19 08:55 Dose: 1 packet Documented by: Nutritional Formula (Lactose Free) (Ensure Enlive) 120 ml PO 4X/DAY [facility] Last Admin: 07/11/19 11:26 Dose: 120 ml Documented by: Ondansetron HCl (Zofran) 4 mg IV Q8H PRN PRN PRN Reason: NAUSEA/VOMITING Sodium Chloride () 10 - 40 ml IV UD PRN PRN Reason: SALINE FLUSH Last Admin: 07/11/19 11:26 Dose: 10 ml Documented by: Sodium Hypochlorite (Dakins Solution 0.25% (1/2 Strength)) 1 applic TOPICAL TID [facility]; Protocol Last Admin: 07/11/19 11:24 Dose: 1 applicatio Documented by: STROKE Vital Signs/Narrative: Vital Signs Temp Pulse Resp BP Pulse Ox 07/11/19 08:55 66 116/69 07/11/19 08:47 97.7 F L 66 16 116/69 98 Assessment/Plan This patient was seen in conjunction with AYLIN Hull. I have independently interviewed and examined the patient and reviewed pertinent historical, laboratory, and other data. Please refer to AYLIN Hull note for his patient's presentation, findings, and recommendations. I have reviewed and his note and concur with his documentation Summary: Patient was seen and examined. Denied any new complaints. He does not want to be discharged to a [facility] facility anymore. Prefers to go back to [facility]. Wound VAC planned by podiatry tomorrow. Physical Exam: Gen: Comfortable, not pale, not jaundiced CVS:HS I +II, regular, no murmurs RESP: Diminished at lung bases GI: BS present and normal, soft, nontender, no palpable organs EXT:Edema and erythema of left lower leg, improving, left foot wrapped up in dressing and AMIE-wraps ASSESSMENT: 1. POD #3, s/p TMA, debridement of left foot for severe left foot infection/cellulitis/osteomyelitis 2. Severe sepsis secondary to Staph/Streptococcus G severe left foot infection/cellulitis/osteomyelitis 3. CAD s/p CABG 4. Hypertension 5. Hyperlipidemia 6. Hypothyroidism 7. Anxiety/depression Plan: Continue on antibiotics Wound care management per podiatry Inpatient E&M: 22429 Subs Hosp L2
[2019-07-11] MEDS: DAKIN'S SOL HALF STRENGTH (=0.25%) 1 APPLIC TOPICAL ×2 (11:24→22:06)
[2019-07-11] MEDS: Enoxaparin 40 MG/0.4 ML Syringe SC (11:24)
[2019-07-11 14:28] VITALS: BP 108/58; PULSE 68; RESP 18; TEMP 36.6; O2SAT 97
[2019-07-11 20:09] VITALS: BP 125/67; PULSE 69; RESP 18; TEMP 36.8; O2SAT 98
[2019-07-11 22:03] VITALS: BP 120/59; PULSE 68
[2019-07-11] MEDS: Atorvastatin Calcium 40 MG Tablet PO (22:03)
[2019-07-12 02:06] VITALS: BP 137/72; PULSE 61; RESP 16; TEMP 36.8; O2SAT 98
[2019-07-12] MEDS: Levothyroxine 75 MCG Tablet PO (05:19)
[2019-07-12] MEDS: DAKIN'S SOL HALF STRENGTH (=0.25%) 1 APPLIC TOPICAL ×2 (05:21→14:43)
[2019-07-12 05:50] LABS: Absolute Lymphocyte Count 1.57 X10^3/uL (0.83-4.51); Absolute Neutrophil Count 6.4 X10^3/uL (2.0-7.7); Basophil# 0.07 X10^3/uL; Basophil% 0.8 % (0-1); Eosinophil# 0.29 X10^3/uL; Eosinophils% 3.2 % (0-5); Hematocrit 40.2 % (40-54); Hemoglobin 12.5 g/dL (13.0-16.5); Lymphocyte # 1.57 X10^3/ul (4.0); Lymphocyte % 17.1 % (19-41); Mean Corp Hgb Conc 31.1 g/dL (32-36); Mean Corpuscular Hgb 25.4 pg (27.0-32.0); Mean Corpuscular Volume 81.7 fL (80-94); Mean Platelet Vol. 9.8 fl (6.2-12.0); Monocyte# 0.73 X10^3/uL; Monocyte% 7.9 % (0-10); NRBC Flagged by Analyzer 0 % (0-5); Neutrophil # 6.44 X10^3/uL (2.7-7.7); Platelet Count 446 K/mm3 (150-450); RBC Distribution Width CV 15.1 % (11.6-14.6); RBC Distribution Width SD 45.2 fl (35.1-43.9); Red Blood Count 4.92 M/mm3 (4.6-6.2); White Blood Count 9.2 K/mm3 (4.4-11.0)
[2019-07-12 06:12] LABS: ALB/GLOB Ratio 0.3 RATIO (0.9-2.4); AST(SGOT) 71 U/L (15-37); Alanine Aminotransfer ALT/SGPT 64 U/L (16-61); Albumin, Serum 1.5 g/dL (3.2-5.0); Alkaline Phosphatase 162 U/L (45-117); Anion Gap 7 (5-15); BUN 15 mg/dL (7-18); BUN/Creat Ratio 22.8 RATIO (10-20); Calcium,Total 8.6 mg/dL (8.5-10.1); Chloride 112 mmol/L (98-107); Creatinine, Serum 0.66 mg/dL (0.70-1.30); EST Glomerular Filtration Rate 130 mL/min (>60); Est Glom Filt Rate - Afr Amer 157 mL/min (>60); Estimated Creatinine Clearance 127.79 ml/min; Glucose 98 mg/dL (74-106); Potassium 3.8 mmol/L (3.5-5.1); Protein, Total 6.5 g/dL (6.4-8.2); Sodium Level 141 mmol/L (136-145)
--- NOTE | 2019-07-12 07:14 | PN_ITS ---
Subjective: Patient was seen this morning for follow up on left foot. Patient relates he slept well. No new complaints. No complaints of fever, chills, nausea or vomiting. - Physical Exam Vitals/I&O's: Vital Signs Temp Pulse Resp BP Pulse Ox 98.3 F 61 16 137/72 H 98 07/12/19 02:06 07/12/19 02:06 07/12/19 02:06 07/12/19 02:06 07/12/19 02:06 Oxygen Delivery Method Room Air Weight: 79.9 kg Body Mass Index (BMI) 23.2 Finger Stick Blood Glucose 92 Intake and Output for Last 24 Hours 07/10/19 07/11/19 07/12/19 23:59 23:59 23:59 Intake Total 1375.5 / 1375.5 2298 / 2298 724.25 / 724.25 Output Total 2750 / 2750 2575 / 2575 800 / 800 Balance -1374.5 / -1374.5 -277 / -277 -75.75 / -75.75 General: Alert, Oriented x3, Cooperative, No apparent distress Extremities: No Calf Tenderness, - - s/p TMA debridement left foot, cellulitis and edema significantly improved, the skin edges of the medial aspect dusky, also slightly dusky area dorsal central foot at skin edge, remaining tissues at the debridement site overall healthy and viable, there is no drainage or purulence today, no fluctuance, no crepitus, no visible abscess, no pain present, sensation is significantly diminished c/w peripheral neuropathy - chronic. No evidence of acute ischemia left foot. Microbiology Past 72 Hours 07/08/19 Unknown Tissue - Left Foot Acid Fast Bacilli Smear - Final 07/08/19 Unknown Tissue - Left Foot Fungal Smear - Final 07/08/19 Unknown Tissue - Left Foot Acid Fast Bacilli Smear - Final 07/08/19 Unknown Tissue - Left Foot Fungal Smear - Final 07/08/19 Unknown Tissue - Left Foot Gram Stain - Final 07/08/19 Unknown Tissue - Left Foot Wound Culture - Final Streptococcus group G 07/08/19 Unknown Tissue - Left Foot Gram Stain - Final 07/08/19 Unknown Tissue - Left Foot Wound Culture - Preliminary Streptococcus group G 07/08/19 Unknown Tissue - Left Foot Anaerobic Culture - Preliminary Checking for anaerobes, further studies to follow. 07/07/19 22:30 Wound - Left Foot Gram Stain - Final 07/07/19 22:30 Wound - Left Foot Wound Culture - Final Streptococcus group G Coag Negative Staph Corynebacterium amycolatum 07/07/19 20:50 Blood Culture (Wb) - Left Forearm Blood Culture - Preliminary No growth in 48 hours. 07/07/19 21:04 Blood Culture (Wb) - Anticubital Right Blood Culture - Preliminary No growth in 48 hours. Laboratory Results 07/11/19 07:35: WBC 9.8, RBC 4.71, Hgb 12.0 L, Hct 37.5 L, MCV 79.6 L, MCH 25.5 L, MCHC 32.0, RDW Std Deviation 44.2 H, RDW Coeff of Jesus 15.2 H, Plt Count 386, MPV 9.7, Immature Gran % (Auto) 0.700, Neut % (Auto) 76.9 H, Lymph % (Auto) 11.9 L, [place] % (Auto) 7.4, Eos % (Auto) 2.5, Baso % (Auto) 0.6, Absolute Neuts (auto) 7.5, Absolute Lymphs (auto) 1.16, Nucleated RBC % 0 07/11/19 07:35: Sodium 139, Potassium 3.8, Chloride 109 H, Carbon Dioxide 26.0, Anion Gap 4 L, BUN 14, Creatinine 0.74, Estim Creat Clear Calc 113.97, Est GFR (MDRD) Af Amer 138, Est GFR (MDRD) Non-Af 114, BUN/Creatinine Ratio 19.0, Glucose 103, Calcium 8.8, Total Bilirubin 0.40, AST 42 H, ALT 33, Alkaline Phosphatase 157 H, Total Protein 6.6, Albumin 1.9 L, Globulin 4.7 H, [place] min/Globulin Ratio 0.4 L 07/12/19 04:54: WBC 9.2, RBC 4.92, Hgb 12.5 L, Hct 40.2, MCV 81.7, MCH 25.4 L, MCHC 31.1 L, RDW Std Deviation 45.2 H, RDW Coeff of Jesus 15.1 H, Plt Count 446, MPV 9.8, Immature Gran % (Auto) 1.000 H, Neut % (Auto) 70.0, Lymph % (Auto) 17.1 L, [place] % (Auto) 7.9, Eos % (Auto) 3.2, Baso % (Auto) 0.8, Absolute Neuts (auto) 6.4, Absolute Lymphs (auto) 1.57, Nucleated RBC % 0 07/12/19 04:54: Sodium 141, Potassium 3.8, Chloride 112 H, Carbon Dioxide 22.0, Anion Gap 7, BUN 15, Creatinine 0.66 L, Estim Creat Clear Calc 127.79, Est GFR (MDRD) Af Amer 157, Est GFR (MDRD) Non-Af 130, BUN/Creatinine Ratio 22.8 H, Glucose 98, Calcium 8.6, Total Bilirubin 0.30, AST 71 H, ALT 64 H, Alkaline Phosphatase 162 H, Total Protein 6.5, Albumin 1.5 L, Globulin 5.0 H, Albumin/Globulin Ratio 0.3 L Current Medications Acetaminophen (Tylenol) 650 mg PO Q6H PRN PRN PRN Reason: Pain Score 1-10/Temp > 100.7 F Last Admin: 07/09/19 09:27 Dose: 650 mg Documented by: Aspirin (Aspirin) 325 mg PO DAILY@0800 [facility] Last Admin: 07/11/19 08:55 Dose: 325 mg Documented by: Atorvastatin Calcium (Lipitor) 40 mg PO QHS [facility] Last Admin: 07/11/19 22:03 Dose: 40 mg Documented by: Duloxetine HCl (Cymbalta) 30 mg PO DAILY [facility] Last Admin: 07/11/19 08:55 Dose: 30 mg Documented by: Enoxaparin Sodium (Lovenox) 40 mg SC DAILY [facility] Last Admin: 07/11/19 11:24 Dose: 40 mg Documented by: Sodium Chloride () 250 mls @ 15 mls/hr IV .[id number] PRN PRN Reason: Saline Flush Last Infusion: 07/12/19 06:02 Dose: 15 mls/hr Documented by: Sodium Chloride () 250 mls @ 15 mls/hr IV .[id number] PRN PRN Reason: Additional IVPB Infusion Last Infusion: 07/10/19 06:40 Dose: Infused Documented by: Ampicillin Sodium/Sulbactam (Sodium 3 gm/ Sodium Chloride) 112 mls @ 150 mls/hr IV Q6 [facility] Last Infusion: 07/12/19 06:02 Dose: Infused Documented by: Levothyroxine Sodium (Synthroid) 75 mcg PO DAILY@0600 [facility] Last Admin: 07/12/19 05:19 Dose: 75 mcg Documented by: Metoprolol Tartrate (Lopressor (Beta Alisha)) 25 mg PO BID [facility] Last Admin: 07/11/19 22:03 Dose: 25 mg Documented by: Nutritional Formula (Robert - Flint Flavor) 1 packet PO BIDCM [facility] Last Admin: 07/11/19 17:16 Dose: 1 packet Documented by: Nutritional Formula (Lactose Free) (Ensure Enlive) 120 ml PO 4X/DAY [facility] Last Admin: 07/11/19 22:02 Dose: 120 ml Documented by: Ondansetron HCl (Zofran) 4 mg IV Q8H PRN PRN PRN Reason: NAUSEA/VOMITING Sodium Chloride () 10 - 40 ml IV UD PRN PRN Reason: SALINE FLUSH Last Admin: 07/11/19 17:16 Dose: 10 ml Documented by: Sodium Hypochlorite (Dakins Solution 0.25% (1/2 Strength)) 1 applic TOPICAL TID [facility]; Protocol Last Admin: 07/12/19 05:21 Dose: 1 applicatio Documented by: Medical Necessity - Tobacco Use Smoking Status: Current every day smoker Tobacco Use: Cigarettes Assessment/Plan All Active Problems Nausea and vomiting (Acute) Redness of the left leg and foot (Acute) Type 2 diabetes mellitus with foot ulcer (Acute) Type 2 diabetes mellitus with foot ulcer (Acute) Necrotic ulcer down to bone w/ left lower extremity abscess, osteomyelitis and cellulitis w/ gas s/p debridement TMA on 07/08/2019 Diabetic neuropathy 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 Skin edges to the medial debridement/surgical site dusky, these were debrided to viable bleeding skin using a 15 blade in excisional fashion, no anesthesia was needed due to peripheral neuropathy. Hemostasis achieved using gauze and pressure. Packed with gauze, applied wet to dry dressing using Dakin's solution, 4x4 gauze, kerlix and philip dressing - change q 8 hours. Was considering wound vac, but recommend holding wound vac at this time. Reviewed culture results - strep G and staph, continue with IV antibiotics. ID/Dr. Almendarez on consult. Strict nonweightbearing left foot, keep left foot elevated. But ok for physical therapy as along as no weightbearing on foot. Reviewed left lower extremity LEAS which showed good arterial flow to foot. Recommended tobacco/smoking cessation - reviewed rationale of this with patient. Will re-evaluate for possible wound vac tomorrow. Discussed d/c planning with patient, patient is homeless, and recommend nursing facility placement for wound care. This was discussed with CARLTON Walsh. Will continue to follow closely.
--- NOTE | 2019-07-12 08:51 | NURSING ---
Pt sitting up in chair. had just finished with breakfast. pt states Dr Roberts had been in to see him this am and had cut a little more off. asked patient what the plan was for discharge. pt states he doesn't want to go to a longterm, but knows that he prob needs to. Pt had been staying at the [facility]. Highly encouraged pt to go to longterm at discharge in order to get the best care for his foot. pt agreed. Did talk with CARLTON Walsh. will change dressing to the left foot later today.
--- NOTE | 2019-07-12 09:00 | CASEMGMT ---
Wound RN spoke with patient and he agreed to go to SNF. SW met with patient, introduced self and role at [facility]. SW gave him a list of local SNF's that are in network with his insurance. He said he will look at the list. SW will check back with him in a bit. Plan: SNF pending patient's choice, facility acceptance, and insurance approval. Jillian JOHNSON
[2019-07-12 09:20] VITALS: BP 118/70; PULSE 66; RESP 14; TEMP 36.4; O2SAT 98
[2019-07-12 09:29] VITALS: PULSE 66
[2019-07-12] MEDS: DULoxetine Hcl 30 MG Capsule PO (09:29)
[2019-07-12] MEDS: Aspirin 325 MG Tablet PO (09:29)
[2019-07-12] MEDS: Metoprolol Tartrate 25 MG Tablet PO (09:29)
[2019-07-12] MEDS: Enoxaparin 40 MG/0.4 ML Syringe SC (09:30)
--- NOTE | 2019-07-12 10:37 | CASEMGMT ---
CARLTON spoke with patient and he said he would be willing to go to [facility] [place]. CARLTON told him SW will work on this and let him know if there are any problems. CARLTON called [facility] [place] with referral and also faxed information. Await their response. Jillian BURCH MSW
--- NOTE | 2019-07-12 11:51 | CASEMGMT ---
SW received a call from yAde at [facility] and they can accept patient. She said she will start the pre-cert. Plan; [facility] pending pre-cert. Jillian BURCH MSW
[2019-07-12] MEDS: 0.9% Saline Lock 10 ML Syringe IV (12:11)
--- NOTE | 2019-07-12 14:30 | PCM.EXTCARCO ---
- Diet 07/12/19 11:48 Diet: Regular Diet Type of Dietary Supplement:: 120 ml Glucerna Shake Is pt able to select menu?: Yes - Routine Orders/Code Status Suppository Type: Dulcolax 10mg Suppository Frequency: Daily PRN Routine Lab Work: CBC - 5 days, BMP - 5 days Code Status: Full Code - Wound(s) left lower leg/foot Wound Type: Puncture left plantar foot Wound Type: Neuropathic/Diabetic Foot Ulcer Dressing Change: Dry Sterile Dressing LEFT FOOT Wound Type: open surgical wound s/p transmetatarsal amputation Dressing Change: Dakins moistened gauze R plantar foot Wound Type: callous - Therapies Weight Bearing: Non weight bearing Physical Therapy: Eval and Treat Occupational Therapy: Eval and Treat - Problem/Diagnosis (1) Sepsis Status: Acute Current Visit: Yes (2) Osteomyelitis Status: Acute Current Visit: Yes (3) Type 2 diabetes mellitus with foot ulcer Status: Chronic Current Visit: No (4) Benign essential hypertension Status: Chronic Current Visit: No (5) CAD (coronary artery disease) Status: Chronic Current Visit: No (6) Deep venous thrombosis of upper extremity Status: Chronic Current Visit: No (7) History of gastroesophageal reflux (GERD) Status: Chronic Current Visit: No (8) History of hyperlipidemia Status: Chronic Current Visit: No (9) Hypothyroidism Status: Chronic Current Visit: No (10) Homelessness Status: Chronic Current Visit: Yes - Allergies/Procedures Done in Hospital Allergies/Adverse Reactions: Allergies colesevelam HCl [From WelChol] Allergy (Verified 07/07/19 19:31) Rash dicyclomine Allergy (Verified 07/07/19 19:31) Rash divalproex sodium [From Depakote] Allergy (Verified 07/07/19 19:31) Unknown rofecoxib [From Vioxx] Allergy (Verified 07/07/19 19:31) Rash Procedures: None - Type of Care/Length of Stay Estimated LOS: Convalescent Care Less Than 30 days Type of Care Needed: Skilled Rehab Potential: Fair Prognosis: Fair - Additional Orders/Day of Discharge Day of Discharge: 07/12/19 - Dietary and Speech Recommendations Dietitian Recommendations/Changes: Will D/C Ensure Enlive 120mL w/ medpass. Will change diet to Cardiac/Carbohydrate-controlled; continue Glucerna shake with meals as ordered--120 ml TID Q meal. Continue Robert BID for wound healing. - Follow Up Care Primary Care Physician: Clement Buckner MD [Primary Care Provider] - Please follow up with your Primary Care Physician in: 2 weeks Please Follow Up With: Jeremiah Roberts DPM - Wound care center When: 1 week
[2019-07-12] MEDS: Doxycycline 100 MG CAPSULE PO (14:39)
[2019-07-12 14:40] VITALS: BP 117/70; PULSE 65; RESP 16; TEMP 36.7; O2SAT 97
--- NOTE | 2019-07-12 14:45 | DS.PCM_ITS ---
<Benito Richardson - Last Filed: 07/12/19 14:45> Discharge Date and Diagnosis - Problem List Patient Problems: Active and Suspected Problems Sepsis (Acute) Osteomyelitis (Acute) Date of Admission: 07/07/19 Date of Discharge: 07/12/19 - Primary Discharge Diagnosis Active and Suspected Problems Sepsis (Acute) Osteomyelitis (Acute) s/p transmetatarsal amputation Homelessness T2DM Hypothyoiridms Anx/depression - Secondary Discharge Diagnosis Chronic Problems Type 2 diabetes mellitus with foot ulcer (Chronic) Homelessness (Chronic) Hypothyroidism (Chronic) History of hyperlipidemia (Chronic) History of gastroesophageal reflux (GERD) (Chronic) Deep venous thrombosis of upper extremity (Chronic) CAD (coronary artery disease) (Chronic) Benign essential hypertension (Chronic) Hospital Course and Treatment Imaging Results: RAD/Foot min 3 Views IMPRESSION: Abnormal air in the soft tissues consistent with infection. No erosion. Amputation of the first digit. MRI/Lower Ext No Joint W/WO Cont IMPRESSION: Gas in the subcutis adipose space distal to the amputated first metatarsal and plantar to the second metatarsophalangeal joint without demonstrated soft tissue abscess. Cellulitis of the forefoot. Mild intermetatarsal bursitis of the second and third web spaces. Atrophy of the intrinsic muscles of the foot suggestive of peripheral neuropathy. Small effusions of the second and third metatarsophalangeal joints. No demonstrated osteomyelitis. ROB: Interpretation Summary Triphasic Doppler waveforms are noted at ankle level on the left. The pulse- volume recording waveform appears satisfactory at ankle level on the left. The resting left ankle-brachial index is normal. There is no evidence of significant arterial occlusive disease in the left lower extremity. (An abbreviated Covid-19 protocol was performed.). RAD/Foot min 3 Views IMPRESSION: Transmetatarsal amputation of the foot. Consultations 07/08/19 00:28 Consult: Onc/Wound/airline captain Routine Comment: Operations: - - Debridement left foot and transmetatarsal amputation left foot Procedures: - - ROB Summary of Care Provided: Hospital Course: The patient is a 63 year old M with pmhx of type 2 diabetes, homelessness, hypertension, hyperlipidemia, GERD, CAD with prior CABG, anxiety and depression, who presented the emergency room with complaints of left lower extremity swelling and a foul odor from his left foot. He had previously had a digit amputation on his left foot. He obtained a puncture wound. This began when he stepped on a piece of glass about a month ago. He was found to have severe sepsis secondary to left lower extremity diabetic foot wound with leukocytosis, pulse greater than 90, lactic acidosis. He was placed on Vanco and Zosyn, podiatry was consulted. X-ray showed swelling. MRI of the foot was obtained and showed osteomyelitis. Infectious disease was consulted. Wound cultures showed strep group C, coag negative staph, corynebacterium. Antibiotics were changed to Unasyn. He was taken to the OR on 416 and underwent a incision and debridement along with a transmetatarsal amputation. The patient did well following the procedure. He was provided with daily dressing changes which will need to be continued. He is to remain nonweightbearing on that foot. He will need an extended course, 6 weeks of antibiotic therapy directed by infectious disease. He was able to be transitioned to pills. He was discharged to care home for ongoing wound care daily and physical and Occupational Therapy. He was discharged to SNF in stable condition. This patient was seen by Benito Richardson PA-C under the supervision of Dr. Mello[] Patient Problems: Active and Suspected Problems Sepsis (Acute) Osteomyelitis (Acute) - Physical Exam Vitals/I&O's: Vital Signs Temp Pulse Resp BP Pulse Ox 97.5 F L 66 14 118/70 98 07/12/19 09:20 07/12/19 09:29 07/12/19 09:20 07/12/19 09:20 07/12/19 09:20 Oxygen Delivery Method Room Air Weight: 176 lb 2.389 oz Body Mass Index (BMI) 23.2 Finger Stick Blood Glucose 92 Intake and Output for Last 24 Hours 07/10/19 07/11/19 07/12/19 23:59 23:59 23:59 Intake Total 1375.5 / 1375.5 2298 / 2298 1436.25 / 1436.25 Output Total 2750 / 2750 2575 / 2575 1100 / 1100 Balance -1374.5 / -1374.5 -277 / -277 336.25 / 336.25 General: Alert, Oriented x3, Cooperative HEENT: Atraumatic, PERRLA, EOMI, Normocephalic Neck: Supple, No JVD, Negative Carotid Bruits Lungs: Clear to auscultation, Normal air movement Cardiovascular: Regular rate, No murmurs Abdomen: Bowel Sounds Present, Soft, Non Tender Extremities: No edema, Capillary Refill Less than 3 Seconds Skin: No rashes, No breakdown Musculoskeletal: No Tenderness to Palpation of Joints or Extremities Neurological: Cranial nerves II-XII grossly intact Psych/Mental Status: Normal Affect, Appropriate, Alert and oriented to time, place, person, mood and affect Microbiology Past 72 Hours 07/08/19 Unknown Tissue - Left Foot Acid Fast Bacilli Smear - Final 07/08/19 Unknown Tissue - Left Foot Fungal Smear - Final 07/08/19 Unknown Tissue - Left Foot Gram Stain - Final 07/08/19 Unknown Tissue - Left Foot Wound Culture - Preliminary Streptococcus group G Staphylococcus species 07/08/19 Unknown Tissue - Left Foot Anaerobic Culture - Preliminary Checking for anaerobes, further studies to follow. 07/08/19 Unknown Tissue - Left Foot Acid Fast Bacilli Smear - Final 07/08/19 Unknown Tissue - Left Foot Fungal Smear - Final 07/08/19 Unknown Tissue - Left Foot Gram Stain - Final 07/08/19 Unknown Tissue - Left Foot Wound Culture - Final Streptococcus group G 07/07/19 22:30 Wound - Left Foot Gram Stain - Final 07/07/19 22:30 Wound - Left Foot Wound Culture - Final Streptococcus group G Coag Negative Staph Corynebacterium amycolatum 07/07/19 20:50 Blood Culture (Wb) - Left Forearm Blood Culture - Preliminary No growth in 48 hours. 07/07/19 21:04 Blood Culture (Wb) - Anticubital Right Blood Culture - Preliminary No growth in 48 hours. Laboratory Results 07/12/19 04:54: WBC 9.2, RBC 4.92, Hgb 12.5 L, Hct 40.2, MCV 81.7, MCH 25.4 L, MCHC 31.1 L, RDW Std Deviation 45.2 H, RDW Coeff of Jesus 15.1 H, Plt Count 446, MPV 9.8, Immature Gran % (Auto) 1.000 H, Neut % (Auto) 70.0, Lymph % (Auto) 17.1 L, Collier % (Auto) 7.9, Eos % (Auto) 3.2, Baso % (Auto) 0.8, Absolute Neuts (auto) 6.4, Absolute Lymphs (auto) 1.57, Nucleated RBC % 0 07/12/19 04:54: Sodium 141, Potassium 3.8, Chloride 112 H, Carbon Dioxide 22.0, Anion Gap 7, BUN 15, Creatinine 0.66 L, Estim Creat Clear Calc 127.79, Est GFR (MDRD) Af Amer 157, Est GFR (MDRD) Non-Af 130, BUN/Creatinine Ratio 22.8 H, Glucose 98, Calcium 8.6, Total Bilirubin 0.30, AST 71 H, ALT 64 H, Alkaline Phosphatase 162 H, Total Protein 6.5, Albumin 1.5 L, Globulin 5.0 H, Al bumin/Globulin Ratio 0.3 L Current Medications Acetaminophen (Tylenol) 650 mg PO Q6H PRN PRN PRN Reason: Pain Score 1-10/Temp > 100.7 F Last Admin: 07/09/19 09:27 Dose: 650 mg Documented by: Aspirin (Aspirin) 325 mg PO DAILY@0800 [facility] Last Admin: 07/12/19 09:29 Dose: 325 mg Documented by: Atorvastatin Calcium (Lipitor) 40 mg PO QHS [facility] Last Admin: 07/11/19 22:03 Dose: 40 mg Documented by: Doxycycline Monohydrate (Doxycycline) 100 mg PO BID [facility] Last Admin: 07/12/19 14:39 Dose: 100 mg Documented by: Duloxetine HCl (Cymbalta) 30 mg PO DAILY [facility] Last Admin: 07/12/19 09:29 Dose: 30 mg Documented by: Enoxaparin Sodium (Lovenox) 40 mg SC DAILY [facility] Last Admin: 07/12/19 09:30 Dose: 40 mg Documented by: Sodium Chloride () 250 mls @ 15 mls/hr IV .[id number] PRN PRN Reason: Saline Flush Last Infusion: 07/12/19 06:02 Dose: 15 mls/hr Documented by: Sodium Chloride () 250 mls @ 15 mls/hr IV .[id number] PRN PRN Reason: Additional IVPB Infusion Last Infusion: 07/10/19 06:40 Dose: Infused Documented by: Ampicillin Sodium/Sulbactam (Sodium 3 gm/ Sodium Chloride) 112 mls @ 150 mls/hr IV Q6 [facility] Last Infusion: 07/12/19 12:56 Dose: Infused Documented by: Levothyroxine Sodium (Synthroid) 75 mcg PO DAILY@0600 [facility] Last Admin: 07/12/19 05:19 Dose: 75 mcg Documented by: Metoprolol Tartrate (Lopressor (Beta Alisha)) 25 mg PO BID [facility] Last Admin: 07/12/19 09:29 Dose: 25 mg Documented by: Nutritional Formula (Robert - [place] Flavor) 1 packet PO BIDCM [facility] Last Admin: 07/12/19 09:29 Dose: 1 packet Documented by: Ondansetron HCl (Zofran) 4 mg IV Q8H PRN PRN PRN Reason: NAUSEA/VOMITING Sodium Chloride () 10 - 40 ml IV UD PRN PRN Reason: SALINE FLUSH Last Admin: 07/12/19 12:11 Dose: 10 ml Documented by: Sodium Hypochlorite (Dakins Solution 0.25% (1/2 Strength)) 1 applic TOPICAL TID [facility]; Protocol Last Admin: 07/12/19 14:43 Dose: 1 applicatio Documented by: Discharge Diet: Low fat/ Low Cholesterol, 1800 Calorie Control Diet, 2000 mg Sodium Diet Home Medications: Medications to take at Discharge Levothyroxine [Synthroid] 75 mcg PO DAILY 09/01/13 Metoprolol Tartrate 25 mg PO BID 09/01/13 Aspirin 325 mg PO DAILY@0800 07/09/17 Duloxetine HCl 30 mg PO DAILY 07/07/19 Rosuvastatin Calcium [Crestor] 20 mg PO DAILY 07/07/19 Acetaminophen [Tylenol Tablet] 650 mg PO Q6H PRN PRN tab 07/12/19 Nutritional Supplement [Robert - [place]ANGE FLAVOR] 1 packet PO BIDCM packet 07/12/19 Sodium Hypochlorite [Dakins Solution 0.25% (1/2 Strength)] 1 applic TOPICAL TID bottle 07/12/19 Primary Care Physician: Clement Buckner MD [Primary Care Provider] - Please follow up with your Primary Care Physician in: 2 weeks Please Follow Up With: Jeremiah Roberts DPM - Wound care center When: 1 week Disposition: [facility] facility Minutes spent on discharge:: 35 Patient Condition:: Stable Medical Necessity - Tobacco Use Smoking Status: Current every day smoker Tobacco Use: Cigarettes Meaningful Use Info Meaningful Use Diagnoses (Choose all that apply): None applicable <Koram,Ana M Yissel - Last Filed: 07/12/19 15:19> Discharge Date and Diagnosis - Primary Discharge Diagnosis Active and Suspected Problems Sepsis (Acute) Osteomyelitis (Acute) - Secondary Discharge Diagnosis Chronic Problems Type 2 diabetes mellitus with foot ulcer (Chronic) Homelessness (Chronic) Hypothyroidism (Chronic) History of hyperlipidemia (Chronic) History of gastroesophageal reflux (GERD) (Chronic) Deep venous thrombosis of upper extremity (Chronic) CAD (coronary artery disease) (Chronic) Benign essential hypertension (Chronic) Hospital Course and Treatment Consultations 07/08/19 00:28 Consult: Onc/Wound/airline captain Routine Comment: Infectious disease- Dr Almendarez Podiatry- Dr Roberts Summary of Care Provided: Patient seen by Benito Richardson PA-C under my supervision The patient is a 63 year old M with a past medical history as outlined was admitted through the ED on 07/07/2019 with a complaint of left lower extremity swelling and foul odor from his left foot. He was diagnosed with severe sepsis due to lower left extremity diabetic foot ulcer. He was started on IV vancomycin and Zosyn and podiatry was consulted. X-ray showed swelling of the foot and MRI of the foot showed gas in the soft cutis adipose space distal to the amputated first metatarsal and plantar to the second metatarsophalangeal joints without demonstrated soft tissue abscess and also showed cellulitis of the forefoot with no demonstrated osteomyelitis. Clinically, however, patient was thought to have osteomyelitis as surgical debridement involved debridement of left foot down to the bone and transmetatarsal amputation. ID was consulted. Wound cultures grew strep group C, coagulase-negative staph and corynebacterium. Antibiotics were narrowed down to IV Unasyn. He had left lower extremity incision and debridement along with transmetatarsal amputation on 07/08/2019. He also had arterial studies of the left lower extremity which showed no evidence of significant arterial occlusive disease in the left lower extremity with left ankle-brachial index of 0.91 at the dorsalis pedis and 1.11 at the posterior tibial artery. Patient remained stable and was discharged to a residential on 07/12/2019. He was counseled to remain nonweight weightbearing on that foot and was discharged on p.o. Duricef 1 g twice daily for 6 weeks. He is follow-up with primary care, infectious disease and podiatry. Patient seen and examined prior to discharge. He had no complaints. Review of systems otherwise negative. Labs and vitals reviewed. Medications reviewed and reconciled. oe/: [] Vital Signs Temp Pulse Resp BP Pulse Ox 98.0 F 65 16 117/70 97 07/12/19 14:40 07/12/19 14:40 07/12/19 14:40 07/12/19 14:40 07/12/19 14:40 General: Alert, Oriented x3, Cooperative HEENT: Atraumatic, PERRLA, EOMI, Normocephalic Neck: Supple, No JVD, Negative Carotid Bruits Lungs: Clear to auscultation, Normal air movement Cardiovascular: Regular rate, No murmurs Abdomen: Bowel Sounds Present, Soft, Non Tender Extremities: left foot s/p TMA amputation, foot is bandaged. Skin: No rashes, No breakdown Musculoskeletal: No Tenderness to Palpation of Joints or Extremities Neurological: Cranial nerves II-XII grossly intact Psych/Mental Status: Normal Affect, Appropriate, Alert and oriented to time, place, person, mood and affect Plan is for DC to [facility] with a prescription for p.o. Duricef 1 g twice daily for 6 weeks. Patient seen by Benito Richardson PA-C under my supervision. - Physical Exam Vitals/I&O's: Vital Signs Temp Pulse Resp BP Pulse Ox 98.0 F 65 16 117/70 97 07/12/19 14:40 07/12/19 14:40 07/12/19 14:40 07/12/19 14:40 07/12/19 14:40 Oxygen Delivery Method Room Air Weight: 176 lb 2.389 oz Body Mass Index (BMI) 23.2 Finger Stick Blood Glucose 92 Intake and Output for Last 24 Hours 07/10/19 07/11/19 07/12/19 23:59 23:59 23:59 Intake Total 1375.5 / 1375.5 2298 / 2298 1436.25 / 1436.25 Output Total 2750 / 2750 2575 / 2575 1100 / 1100 Balance -1374.5 / -1374.5 -277 / -277 336.25 / 336.25 Microbiology Past 72 Hours 07/08/19 Unknown Tissue - Left Foot Acid Fast Bacilli Smear - Final 07/08/19 Unknown Tissue - Left Foot Fungal Smear - Final 07/08/19 Unknown Tissue - Left Foot Gram Stain - Final 07/08/19 Unknown Tissue - Left Foot Wound Culture - Preliminary Streptococcus group G Staphylococcus species 07/08/19 Unknown Tissue - Left Foot Anaerobic Culture - Preliminary Checking for anaerobes, further studies to follow. 07/08/19 Unknown Tissue - Left Foot Acid Fast Bacilli Smear - Final 07/08/19 Unknown Tissue - Left Foot Fungal Smear - Final 07/08/19 Unknown Tissue - Left Foot Gram Stain - Final 07/08/19 Unknown Tissue - Left Foot Wound Culture - Final Streptococcus group G 07/07/19 22:30 Wound - Left Foot Gram Stain - Final 07/07/19 22:30 Wound - Left Foot Wound Culture - Final Streptococcus group G Coag Negative Staph Corynebacterium amycolatum 07/07/19 20:50 Blood Culture (Wb) - Left Forearm Blood Culture - Preliminary No growth in 48 hours. 07/07/19 21:04 Blood Culture (Wb) - Anticubital Right Blood Culture - Preliminary No growth in 48 hours. Laboratory Results 07/12/19 04:54: WBC 9.2, RBC 4.92, Hgb 12.5 L, Hct 40.2, MCV 81.7, MCH 25.4 L, MCHC 31.1 L, RDW Std Deviation 45.2 H, RDW Coeff of Jesus 15.1 H, Plt Count 446, MPV 9.8, Immature Gran % (Auto) 1.000 H, Neut % (Auto) 70.0, Lymph % (Auto) 17.1 L, Collier % (Auto) 7.9, Eos % (Auto) 3.2, Baso % (Auto) 0.8, Absolute Neuts (auto) 6.4, Absolute Lymphs (auto) 1.57, Nucleated RBC % 0 07/12/19 04:54: Sodium 141, Potassium 3.8, Chloride 112 H, Carbon Dioxide 22.0, Anion Gap 7, BUN 15, Creatinine 0.66 L, Estim Creat Clear Calc 127.79, Est GFR (MDRD) Af Amer 157, Est GFR (MDRD) Non-Af 130, BUN/Creatinine Ratio 22.8 H, Glucose 98, Calcium 8.6, Total Bilirubin 0.30, AST 71 H, ALT 64 H, Alkaline Phosphatase 162 H, Total Protein 6.5, Albumin 1.5 L, Globulin 5.0 H, Albumin/Globulin Ratio 0.3 L Current Medications Acetaminophen (Tylenol) 650 mg PO Q6H PRN PRN PRN Reason: Pain Score 1-10/Temp > 100.7 F Last Admin: 07/09/19 09:27 Dose: 650 mg Documented by: Aspirin (Aspirin) 325 mg PO DAILY@0800 [facility] Last Admin: 07/12/19 09:29 Dose: 325 mg Documented by: Atorvastatin Calcium (Lipitor) 40 mg PO QHS [facility] Last Admin: 07/11/19 22:03 Dose: 40 mg Documented by: Doxycycline Monohydrate (Doxycycline) 100 mg PO BID [facility] Last Admin: 07/12/19 14:39 Dose: 100 mg Documented by: Duloxetine HCl (Cymbalta) 30 mg PO DAILY [facility] Last Admin: 07/12/19 09:29 Dose: 30 mg Documented by: Enoxaparin Sodium (Lovenox) 40 mg SC DAILY [facility] Last Admin: 07/12/19 09:30 Dose: 40 mg Documented by: Sodium Chloride () 250 mls @ 15 mls/hr IV .[id number] PRN PRN Reason: Saline Flush Last Infusion: 07/12/19 06:02 Dose: 15 mls/hr Documented by: Sodium Chloride () 250 mls @ 15 mls/hr IV .[id number] PRN PRN Reason: Additional IVPB Infusion Last Infusion: 07/10/19 06:40 Dose: Infused Documented by: Ampicillin Sodium/Sulbactam (Sodium 3 gm/ Sodium Chloride) 112 mls @ 150 mls/hr IV Q6 [facility] Last Infusion: 07/12/19 12:56 Dose: Infused Documented by: Levothyroxine Sodium (Synthroid) 75 mcg PO DAILY@0600 [facility] Last Admin: 07/12/19 05:19 Dose: 75 mcg Documented by: Metoprolol Tartrate (Lopressor (Beta Alisha)) 25 mg PO BID [facility] Last Admin: 07/12/19 09:29 Dose: 25 mg Documented by: Nutritional Formula (Robert - [place] Flavor) [facility] Last Admin: 07/12/19 09:29 Dose: 1 packet Documented by: Ondansetron HCl (Zofran) 4 mg IV Q8H PRN PRN PRN Reason: NAUSEA/VOMITING Sodium Chloride () 10 - 40 ml IV UD PRN PRN Reason: SALINE FLUSH Last Admin: 07/12/19 12:11 Dose: 10 ml Documented by: Sodium Hypochlorite (Dakins Solution 0.25% (1/2 Strength)) 1 applic TOPICAL TID [facility]; Protocol Last Admin: 07/12/19 14:43 Dose: 1 applicatio Documented by: Inpatient E&M: [id number] Disch Hosp
--- NOTE | 2019-07-12 15:09 | NURSING ---
wound photo: left foot
--- NOTE | 2019-07-12 15:10 | NURSING ---
wound photo: left foot
--- NOTE | 2019-07-12 15:38 | PCM.PN.ID ---
Patient Problems: Active and Suspected Problems Sepsis (Acute) Osteomyelitis (Acute) Subjective: Feeling ok, no fever, no n/v/d - Physical Exam Vitals/I&O's: Vital Signs Temp Pulse Resp BP Pulse Ox 98.0 F 65 16 117/70 97 07/12/19 14:40 07/12/19 14:40 07/12/19 14:40 07/12/19 14:40 07/12/19 14:40 Oxygen Delivery Method Room Air Weight: 79.9 kg Body Mass Index (BMI) 23.2 Finger Stick Blood Glucose 92 Intake and Output for Last 24 Hours 07/10/19 07/11/19 07/12/19 23:59 23:59 23:59 Intake Total 1375.5 / 1375.5 2298 / 2298 1436.25 / 1436.25 Output Total 2750 / 2750 2575 / 2575 1100 / 1100 Balance -1374.5 / -1374.5 -277 / -277 336.25 / 336.25 General: Alert, Cooperative, No apparent distress Lungs: Clear to auscultation, Normal air movement Cardiovascular: Regular rate, Regular Rhythm Abdomen: Soft, Non Tender, Non-Distended Skin: No rashes, Ulcer/ Wound - foot wrapped Microbiology Past 72 Hours 07/08/19 Unknown Tissue - Left Foot Acid Fast Bacilli Smear - Final 07/08/19 Unknown Tissue - Left Foot Fungal Smear - Final 07/08/19 Unknown Tissue - Left Foot Gram Stain - Final 07/08/19 Unknown Tissue - Left Foot Wound Culture - Preliminary Streptococcus group G Staphylococcus species 07/08/19 Unknown Tissue - Left Foot Anaerobic Culture - Preliminary Checking for anaerobes, further studies to follow. 07/08/19 Unknown Tissue - Left Foot Acid Fast Bacilli Smear - Final 07/08/19 Unknown Tissue - Left Foot Fungal Smear - Final 07/08/19 Unknown Tissue - Left Foot Gram Stain - Final 07/08/19 Unknown Tissue - Left Foot Wound Culture - Final Streptococcus group G 07/07/19 22:30 Wound - Left Foot Gram Stain - Final 07/07/19 22:30 Wound - Left Foot Wound Culture - Final Streptococcus group G Coag Negative Staph Corynebacterium amycolatum 07/07/19 20:50 Blood Culture (Wb) - Left Forearm Blood Culture - Preliminary No growth in 48 hours. 07/07/19 21:04 Blood Culture (Wb) - Anticubital Right Blood Culture - Preliminary No growth in 48 hours. Laboratory Results 07/12/19 04:54: WBC 9.2, RBC 4.92, Hgb 12.5 L, Hct 40.2, MCV 81.7, MCH 25.4 L, MCHC 31.1 L, RDW Std Deviation 45.2 H, RDW Coeff of Jesus 15.1 H, Plt Count 446, MPV 9.8, Immature Gran % (Auto) 1.000 H, Neut % (Auto) 70.0, Lymph % (Auto) 17.1 L, [place] % (Auto) 7.9, Eos % (Auto) 3.2, Baso % (Auto) 0.8, Absolute Neuts (auto) 6.4, Absolute Lymphs (auto) 1.57, Nucleated RBC % 0 07/12/19 04:54: Sodium 141, Potassium 3.8, Chloride 112 H, Carbon Dioxide 22.0, Anion Gap 7, BUN 15, Creatinine 0.66 L, Estim Creat Clear Calc 127.79, Est GFR (MDRD) Af Amer 157, Est GFR (MDRD) Non-Af 130, BUN/Creatinine Ratio 22.8 H, Glucose 98, Calcium 8.6, Total Bilirubin 0.30, AST 71 H, ALT 64 H, Alkaline Phosphatase 162 H, Total Protein 6.5, Albumin 1.5 L, Globulin 5.0 H, Albumin/Globulin Ratio 0.3 L Current Medications Acetaminophen (Tylenol) 650 mg PO Q6H PRN PRN PRN Reason: Pain Score 1-10/Temp > 100.7 F Last Admin: 07/09/19 09:27 Dose: 650 mg Documented by: Aspirin (Aspirin) 325 mg PO DAILY@0800 [facility] Last Admin: 07/12/19 09:29 Dose: 325 mg Documented by: Atorvastatin Calcium (Lipitor) 40 mg PO QHS [facility] Last Admin: 07/11/19 22:03 Dose: 40 mg Documented by: Doxycycline Monohydrate (Doxycycline) 100 mg PO BID [facility] Last Admin: 07/12/19 14:39 Dose: 100 mg Documented by: Duloxetine HCl (Cymbalta) 30 mg PO DAILY [facility] Last Admin: 07/12/19 09:29 Dose: 30 mg Documented by: Enoxaparin Sodium (Lovenox) 40 mg SC DAILY [facility] Last Admin: 07/12/19 09:30 Dose: 40 mg Documented by: Sodium Chloride () 250 mls @ 15 mls/hr IV .[id number] PRN PRN Reason: Saline Flush Last Infusion: 07/12/19 06:02 Dose: 15 mls/hr Documented by: Sodium Chloride () 250 mls @ 15 mls/hr IV .[id number] PRN PRN Reason: Additional IVPB Infusion Last Infusion: 07/10/19 06:40 Dose: Infused Documented by: Ampicillin Sodium/Sulbactam (Sodium 3 gm/ Sodium Chloride) 112 mls @ 150 mls/hr IV Q6 [facility] Last Infusion: 07/12/19 12:56 Dose: Infused Documented by: Levothyroxine Sodium (Synthroid) 75 mcg PO DAILY@0600 [facility] Last Admin: 07/12/19 05:19 Dose: 75 mcg Documented by: Metoprolol Tartrate (Lopressor (Beta Alisha)) 25 mg PO BID [facility] Last Admin: 07/12/19 09:29 Dose: 25 mg Documented by: Nutritional Formula (Robert - [place] Flavor) [facility] Last Admin: 07/12/19 09:29 Dose: 1 packet Documented by: Ondansetron HCl (Zofran) 4 mg IV Q8H PRN PRN PRN Reason: NAUSEA/VOMITING Sodium Chloride () 10 - 40 ml IV UD PRN PRN Reason: SALINE FLUSH Last Admin: 07/12/19 12:11 Dose: 10 ml Documented by: Sodium Hypochlorite (Dakins Solution 0.25% (1/2 Strength)) 1 applic TOPICAL TID [facility]; Protocol Last Admin: 07/12/19 14:43 Dose: 1 applicatio Documented by: Medical Necessity - Tobacco Use Smoking Status: Current every day smoker Tobacco Use: Cigarettes Route of nutrition/ use of supplements: [] Nutritional Intake: [] IV Site: [] Waggoner Catheter: [] - Assessment/Plan Antibiotics: [] Assessment/Plan: [] severe sepsis (low grade fever, leukocytosis, tachycardia, lactic acidosis) due to L foot osteo with DM neuropathy - wound cx with staph and Group G strep. MRSA pcr neg. Taken to OR for TMA by Dr. Roberts on 4/16/20. Surgical cx and clearance fragment (+) so far for strep and CoNS. With good source control but not complete resection, plan at this point will be for 6 week course of duricef 1gm bid and doxy 100mg bid. Will follow, d/w primary team and case operator. Rx written. ID followup with me in 2 weeks.
--- NOTE | 2019-07-12 15:41 | CASEMGMT ---
Received insurance approval for patient to go to [facility]. Faxed orders to [facility]. Called [facility] and arranged for patient to get picked up at via cot. SW notified patient, RN, welder apprentice gas, and [facility]. Convalescent completed on HENS. Plan: d/c to [facility] under skilled level of care on a convalescent stay. [facility] transported patient via cot. Jillian BURCH MSW
--- NOTE | 2019-07-12 16:52 | NURSING ---
report called to Shayla at [facility]. answered questions and provided pt update.
== END 2019-07-12 17:37 | disposition skilled nursing facility (03) | DRG 710 ==
LOC: ED 20:42 → PCU 23:27
PROVIDERS: Internal Medicine; Podiatrist; Admitting Provider Family Medicine; Emergency Provider Emergency Medicine; PCP Family Medicine; Visit Provider Student in an Organized Health Care Education/Training Program
PROC: 0Y6N0Z9 Detachment at Left Foot, Partial 1st Ray, Open Approach (ICD-10-PCS; CPT 28805; principal; 2019-07-08 14:00)
DX: A40.8 Other streptococcal sepsis (principal); E11.69 Type 2 diabetes mellitus with other specified complication; M86.172 Other acute osteomyelitis, left ankle and foot; B95.4 Other streptococcus as the cause of diseases classified elsewhere; B96.89 Other specified bacterial agents as the cause of diseases classified elsewhere; E03.9 Hypothyroidism, unspecified; I25.10 Atherosclerotic heart disease of native coronary artery without angina pectoris; I10 Essential (primary) hypertension; K21.9 Gastro-esophageal reflux disease without esophagitis; E78.5 Hyperlipidemia, unspecified; F17.210 Nicotine dependence, cigarettes, uncomplicated; L03.116 Cellulitis of left lower limb; F32.9 Major depressive disorder, single episode, unspecified; F41.9 Anxiety disorder, unspecified; E11.621 Type 2 diabetes mellitus with foot ulcer; L97.529 Non-pressure chronic ulcer of other part of left foot with unspecified severity; Z86.718 Personal history of other venous thrombosis and embolism; E11.40 Type 2 diabetes mellitus with diabetic neuropathy, unspecified; Z59.0 Homelessness; E87.2 Acidosis
CPT/HCPCS: 36415; 73630; 73720; 80048; 80053; 82962; 83036; 83605; 83735; 85025; 87015; 87040; 87070; 87075; 87077; 87102; 87116; 87176; 87186; 87205; 87206; 87640; 88304; 88305; 88311; 88312; 93005; 93922; 96361; 96365; 97161; 97166; 99284; 99406; A9575; J7030; J7040; J7050; A4216; J0295; J2405

== ENCOUNTER 2019-11-23 18:38 | Inpatient (IN) | payer MEDICARE, MEDICAID, SELFPAY ==
[2019-07-08 12:56] VITALS: BMI 23.2
[2019-11-23] VITALS (9 sets, daily range): BP systolic 83–125; BP diastolic 47–69; PULSE 74–97; RESP 16–26; TEMP 37.3–39.2; O2SAT 93–100; BMI 23.8; BMI 23.9; BMI 22.6
--- NOTE | 2019-11-23 19:10 | RAD_ITS ---
STUDY: X-RAY - LEFT FOOT CLINICAL: Male, 63 years old. left foot infection. fever. hx of osteomyelitis TECHNIQUE: 3 view(s) of the foot. COMPARISON: 07/08/2019 FINDINGS: Transmetatarsal amputations of all 5 digits. Interval development of exorbitant periosteal reaction involving the distal aspect of the residual second metatarsal. Milder periosteal reaction is noted involving the tip of the residual third metatarsal. No osteolysis is seen. Soft tissue swelling. Hindfoot osteoarthritis. RAD/Foot min 3 Views IMPRESSION: Periosteal reaction of the distal residual second and third metatarsals. No osteolysis is seen. Overall, the possibility of osteomyelitis is not excluded. If there is further concern for osteomyelitis, consider correlation with three-phase bone scan or contrast-enhanced MRI. Electronically Signed: Stanislav Kimball MD at 21:22 EDT Tel , Service support ,
--- NOTE | 2019-11-23 19:11 | ED.DCSUM_ITS ---
History of Present Illness Chief Complaint: Fever Narrative: Patient is a 63-year-old male who presents with left foot and leg pain fever and headache. He has a history of a foot wound with osteomyelitis and had a partial amputation of the foot several months ago. 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 He is scheduled to see wound care tomorrow. He developed a fever and headache. He denies chest pain difficulty breathing vomiting or diarrhea. He does complain of nausea. Past Medical History - Allergies and Home Meds Allergies/Adverse Reactions: Allergies colesevelam HCl [From WelChol] Allergy (Verified 11/23/19 18:45) Rash dicyclomine Allergy (Verified 11/23/19 18:45) Rash divalproex sodium [From Depakote] Allergy (Verified 11/23/19 18:45) Unknown rofecoxib [From Vioxx] Allergy (Verified 11/23/19 18:45) Rash Primary Care Physician: Clement Buckner MD [Primary Care Provider] - Past Medical History: - - Diabetes, hyperlipidemia, coronary artery disease, vascular disease Surgical History: coronary bypass surgery, - - Coronary artery stent placement April 2017, amputation of the left great toe Smoking Status: Current every day smoker - Family History Maternal Family History: Reports: Diabetes Paternal Family History: Reports: Cancer - Lung cancer Review of Systems All systems negative except as indicated General: Reports: Fever Eyes: Denies: Visual changes - bilaterally ENT: Denies: Bilateral ear pain Cardiovascular: Denies: Chest pain Respiratory: Denies: Dyspnea Gastrointestinal: Reports: Nausea. Denies: Abdominal pain, Vomiting, Diarrhea Musculoskeletal: Reports: Extremity Pain Skin: Denies: Rash Neurological: Reports: Headache Hematologic: Denies: Easy bruising Allergy: Denies: Uticaria Physical Exam Vital Signs/Narrative: Vital Signs Temp Pulse Resp BP Pulse Ox 11/23/19 18:38 102.5 F H 97 24 H 124/69 H 96 Inital Vital Signs reviewed: Yes General: Well nourished Head: Normocephalic Eyes: EOMI ENT: Moist mucous membranes Neck: Supple Cardiovascular: Regular rate, Regular rhythm Respiratory: No distress, CTA bilaterally Abdomen: Soft, Nontender, Nondistended Extremities: - - Patient does have a wound at the end of his foot. He has had a partial foot amputation. The foot and distal leg are erythematous Neurological: Alert Psychological: Normal affect Diagnostic/Tx/Re-eval Impressions Foot X-Ray 11/23/19 19:10 IMPRESSION: Periosteal reaction of the distal residual second and third metatarsals. No osteolysis is seen. Overall, the possibility of osteomyelitis is not excluded. If there is further concern for osteomyelitis, consider correlation with three-phase bone scan or contrast-enhanced MRI. Electronically Signed: Stanislav Kimball MD at 21:22 EDT Tel , Service support , Chest X-Ray 11/23/19 20:30 IMPRESSION: No acute pulmonary findings. Electronically Signed: Stanislav Kimball MD at 21:19 EDT Tel , Service support , 11/23/19 19:10 Foot min 3 Views [RAD] Stat 11/23/19 20:30 CXR [Chest 1 View (Portable)] [RAD] Stat Laboratory Results 11/23/19 11/23/19 11/23/19 18:52 18:52 18:52 WBC 21.9 H RBC 4.79 Hgb 12.1 L Hct 38.3 L MCV 80.0 MCH 25.3 L MCHC 31.6 L RDW Std Deviation 44.2 H RDW Coeff of Jesus 15.4 H Plt Count 335 MPV 10.8 Immature Gran % (Auto) 1.100 H Neut % (Auto) 85.4 H Lymph % (Auto) 4.3 L Roberts % (Auto) 8.8 Eos % (Auto) 0.0 Baso % (Auto) 0.4 Absolute Neuts (auto) 18.7 H Absolute Lymphs (auto) 0.93 Nucleated RBC % 0 Differential Comment COMMENT Sodium 131 L Potassium 3.2 L Chloride 99 Carbon Dioxide 27.0 Anion Gap 5 BUN 10 Creatinine 0.92 Estim Creat Clear Calc 91.67 Est GFR (MDRD) Af Amer 107 Est GFR (MDRD) Non-Af 88 BUN/Creatinine Ratio 10.9 Glucose 100 Lactic Acid 1.2 Calcium 8.7 - Medical Decision Making Laboratory studies and imaging as above notable for white blood cell count of 21.9. Lactic acid is normal. Patient was given IV Zosyn. Patient will be discussed with the hospitalist and admitted. ED Disposition - Plan for ED Patient: Disposition: Acute Care Hospital [facility] Diagnosis: Cellulitis of lower extremity Referrals: Clement Buckner MD [Primary Care Provider] -
[2019-11-23 19:28] LABS: Absolute Lymphocyte Count 0.93 X10^3/uL (0.83-4.51); Absolute Neutrophil Count 18.7 X10^3/uL (2.0-7.7); Basophil# 0.09 X10^3/uL; Basophil% 0.4 % (0-1); Eosinophil# 0.01 X10^3/uL; Hematocrit 38.3 % (40-54); Hemoglobin 12.1 g/dL (13.0-16.5); Lymphocyte # 0.93 X10^3/ul (4.0); Lymphocyte % 4.3 % (19-41); Mean Corp Hgb Conc 31.6 g/dL (32-36); Mean Corpuscular Hgb 25.3 pg (27.0-32.0); Mean Platelet Vol. 10.8 fl (6.2-12.0); Monocyte# 1.93 X10^3/uL; Monocyte% 8.8 % (0-10); NRBC Flagged by Analyzer 0 % (0-5); Neutrophil # 18.67 X10^3/uL (2.7-7.7); Neutrophil % 85.4 % (47-70); POSITIVE DIFFERENTIAL YES; Platelet Count 335 K/mm3 (150-450); RBC Distribution Width CV 15.4 % (11.6-14.6); RBC Distribution Width SD 44.2 fl (35.1-43.9); Red Blood Count 4.79 M/mm3 (4.6-6.2); White Blood Count 21.9 K/mm3 (4.4-11.0)
[2019-11-23] MEDS: 0.9% Normal Saline 1,000 ML 1000 ML IV (19:28)
[2019-11-23] MEDS: Ondansetron 4 MG/2 ML Vial IV (19:29)
[2019-11-23] MEDS: Acetaminophen 500 MG Tablet 1000 MG PO (19:29)
[2019-11-23] MEDS: Morphine 4 MG/ML Syringe IV (19:30)
[2019-11-23 19:49] LABS: Anion Gap 5 (5-15); BUN 10 mg/dL (7-18); BUN/Creat Ratio 10.9 RATIO (10-20); Calcium,Total 8.7 mg/dL (8.5-10.1); Chloride 99 mmol/L (98-107); Creatinine, Serum 0.92 mg/dL (0.70-1.30); EST Glomerular Filtration Rate 88 mL/min (>60); Est Glom Filt Rate - Afr Amer 107 mL/min (>60); Estimated Creatinine Clearance 91.67 ml/min; Glucose 100 mg/dL (74-106); Potassium 3.2 mmol/L (3.5-5.1); Sodium Level 131 mmol/L (136-145)
[2019-11-23 19:55] LABS: Lactic Acid 1.2 mmol/L (0.4-1.9)
--- NOTE | 2019-11-23 20:30 | RAD_ITS ---
STUDY: X-RAY CHEST REASON FOR EXAM: Male, 63 years old. LEFT FOOT TOE AMPUTATION 4 MONTHS AGO. PRESENT WITH QUEEN AND FEVER. TECHNIQUE: Single frontal view of the chest. COMPARISON: 07/09/2017 FINDINGS: Median sternotomy wires and CABG clips. The lungs are clear and expanded. There is no demonstrated pleural abnormality. Normal size heart. Normal mediastinum and oanh. Normal visualized pulmonary arteries. Normal visualized aortic arch and descending thoracic aorta. Normal visualized thoracic spine. Normal visualized ribs, clavicles, and shoulders. There is no demonstrated abnormality of the visualized soft tissue structures of the upper abdomen. RAD/Chest 1 View (Portable) IMPRESSION: No acute pulmonary findings. Electronically Signed: Stanislav Kimball MD at 21:19 EDT Tel , Service support ,
[2019-11-23 20:53] LABS: Differential Indicated SCAN CRITERIA MET
[2019-11-23] MEDS: 0.9% Normal Saline 1,000 ML 999 ML IV (21:59)
[2019-11-23] MEDS: 0.9% Normal Saline 1,000 ML 75 ML IV (23:37)
[2019-11-23] MEDS: 0.9% Saline Lock 10 ML Syringe IV (23:37)
--- NOTE | 2019-11-23 23:55 | PCM.HP.STD ---
Problem List (1) Cellulitis of lower extremity Status: Acute (2) Nausea and vomiting Status: Inactive Qualifiers: Vomiting type: unspecified Vomiting Intractability: non-intractable Qualified Code(s): R11.2 - Nausea with vomiting, unspecified (3) Redness of the left leg and foot Status: Acute (4) Sepsis Status: Acute (5) Type 2 diabetes mellitus with foot ulcer Status: Chronic (6) Benign essential hypertension Status: Chronic (7) CAD (coronary artery disease) Status: Chronic (8) Deep venous thrombosis of upper extremity Status: Chronic (9) History of gastroesophageal reflux (GERD) Status: Chronic (10) History of hyperlipidemia Status: Chronic (11) Homelessness Status: Chronic (12) Hypothyroidism Status: Chronic (13) Type 2 diabetes mellitus with foot ulcer Status: Chronic History of Present Illness Date of Admission: 11/23/19 Chief Complaint: left foot pain The patient is a 63 year old M with a significant history of CAD status post CABG x2 and stent; and osteomyelitis status post left foot partial amputation presents emergency department with left foot pain x2 days. Associated with his symptoms is erythema and swelling of his left foot. Also he reports a temperature of 100.7F at home. Further he has nausea and presyncope. His pain is worsened by walking and relieved with rest. He describes his pain as stabbing. His pain radiates to his left calf. Patient reported that 5 days ago he lost the keys to his truck and ended up selling his truck. He reported that with no truck he has been walking. He reports social issues with inability to get around. He uses a cane to walk. Patient goes to the wound clinic. His next appointment at the wound clinic is 11/24/2019. At the emergency department patient had a T-max of 102.5. His heart rate was more than 90. His respiratory rate was in the 20s. His white count was 21.9. His potassium was 3.2. His sodium was 131. At emergency department patient received 1 L of normal saline. Also he received Zosyn and morphine. His blood pressure was normal. However when patient was transferred to the floor his blood pressure on his right arm was 85/48 and in her left arm was 83/47 as reported by patient's nurse. Past Medical History Past Medical History (Chronic Problems): Chronic Problems Type 2 diabetes mellitus with foot ulcer (Chronic) Type 2 diabetes mellitus with foot ulcer (Chronic) Homelessness (Chronic) Hypothyroidism (Chronic) History of hyperlipidemia (Chronic) History of gastroesophageal reflux (GERD) (Chronic) Deep venous thrombosis of upper extremity (Chronic) CAD (coronary artery disease) (Chronic) Benign essential hypertension (Chronic) Allergies colesevelam HCl [From WelChol] Allergy (Verified 11/23/19 18:45) Rash dicyclomine Allergy (Verified 11/23/19 18:45) Rash divalproex sodium [From Depakote] Allergy (Verified 11/23/19 18:45) Unknown rofecoxib [From Vioxx] Allergy (Verified 11/23/19 18:45) Rash Home Medications: Ambulatory Orders Medication Instructions Recorded Levothyroxine [Synthroid] 75 mcg PO DAILY 09/01/13 Duloxetine HCl 30 mg PO DAILY 07/07/19 Rosuvastatin Calcium [Crestor] 20 mg PO DAILY 07/07/19 Metoprolol Tartrate 25 mg PO BID 11/23/19 Surgical History: coronary bypass surgery, - - Coronary artery stent placement April 2017, amputation of the left great toe Psychiatric History: No pertinent psych hx Smoking Status: Current every day smoker Tobacco Use: Cigarettes - *Family History Maternal History Items: Diabetes Paternal History Items: Cancer - Lung cancer Review of Systems Constitutional: Reports: Fever. Denies: Weight Change HEENT: Denies: Head Aches, Sinus Congestion, Sinus Drainage Cardiovascular: Denies: Chest Pain, Palpitations Respiratory: Denies: Cough, Shortness of breath at rest, Sputum production Gastrointestinal: Denies: Abdominal Pain, Nausea, Vomiting Genitourinary: Denies: Dysuria Musculoskeletal: Reports: Foot Pain. Denies: Arm Pain Skin: Reports: Wounds - Left foot stump. Denies: Rash Neurological: Denies: Numbness, Tingling, Focal weakness Psychiatric: Denies: Anxiety, Depression, Homicidal Ideations, Suicidal Ideations Hematologic/ Lymphatic: Denies: Easy Bruising, Easy Bleeding VTE Information - Inpt Only VTE Present on Admission: No VTE Mechan Device Prophylaxis: SCD's VTE Pharm Prophylaxis ordered?: No Patient Problems: Active and Suspected Problems Cellulitis of lower extremity (Acute) - Physical Exam Vitals/I&O's: Vital Signs Temp Pulse Resp BP Pulse Ox 99.2 F H 74 18 83/47 L 96 11/23/19 23:20 11/23/19 23:20 11/23/19 23:20 11/23/19 23:20 11/23/19 23:20 Oxygen Delivery Method Room Air Weight: 77.6 kg Body Mass Index (BMI) 22.6 Finger Stick Blood Glucose 92 Intake and Output for Last 24 Hours 11/21/19 11/22/19 11/23/19 23:59 23:59 23:59 Intake Total 2099 Balance 2099 General: Alert, Oriented x3, Cooperative HEENT: Atraumatic, PERRLA, EOMI, Normocephalic Neck: Supple, No JVD, Negative Carotid Bruits Lungs: Clear to auscultation, Normal air movement, Tachypneic Cardiovascular: No murmurs, Tachycardic Abdomen: Bowel Sounds Present, Soft, Non Tender Extremities: Edema - Left foot., - - Partial amputation of left foot. Skin: Ulcer/ Wound - Left stump, - - Erythema of left foot Musculoskeletal: No Tenderness to Palpation of Joints or Extremities Neurological: Cranial nerves II-XII grossly intact Psych/Mental Status: Normal Affect, Appropriate Laboratory Results 11/23/19 18:52: WBC 21.9 H, RBC 4.79, Hgb 12.1 L, Hct 38.3 L, MCV 80.0, MCH 25.3 L, MCHC 31.6 L, RDW Std Deviation 44.2 H, RDW Coeff of Jesus 15.4 H, Plt Count 335, MPV 10.8, Immature Gran % (Auto) 1.100 H, Neut % (Auto) 85.4 H, Lymph % (Auto) 4.3 L, [place] % (Auto) 8.8, Eos % (Auto) 0.0, Baso % (Auto) 0.4, Absolute Neuts (auto) 18.7 H, Absolute Lymphs (auto) 0.93, Nucleated RBC % 0, Differential Comment COMMENT, Diff Path Review July11/23/19 18:52: Sodium 131 L, Potassium 3.2 L, Chloride 99, Carbon Dioxide 27.0, Anion Gap 5, BUN 10, Creatinine 0.92, Estim Creat Clear Calc 91.67, Est GFR (MDRD) Af Amer 107, Est GFR (MDRD) Non-Af 88, BUN/Creatinine Ratio 10.9, Glucose 100, Calcium 8.7 09/01/20 18:52: Lactic Acid 1.2 Current Medications Acetaminophen (Tylenol) 650 mg PO Q6H PRN PRN PRN Reason: Pain Score 1-10/Temp > 100.7 F Atorvastatin Calcium (Lipitor) 40 mg PO QHS [facility] Duloxetine HCl (Cymbalta) 30 mg PO DAILY [facility] Sodium Chloride () 1,000 mls @ 75 mls/hr IV .[id number] [facility] Last Admin: 11/23/19 23:37 Dose: 75 mls/hr Documented by: Vancomycin IV Pharmacy to Dose (1 ea/ Sodium Chloride) 500 mls @ 250 mls/hr IV X1 PRN; Protocol PRN Reason: Rx to Dose Piperacillin Sod/Tazobactam (Sod 3.375 gm/ Sodium Chloride) 50 mls @ 12.5 mls/hr IV Q8 [facility] Sodium Chloride () 250 mls @ 15 mls/hr IV .[id number] PRN PRN Reason: Saline Flush Sodium Chloride () 250 mls @ 15 mls/hr IV .[id number] PRN PRN Reason: Additional IVPB Infusion Vancomycin HCl 2,000 mg/ (Sodium Chloride) 540 mls @ 250 mls/hr IV X1 ONE Stop: 11/24/19 01:39 Sodium Chloride () 2,000 mls @ 999 mls/hr IV .[id number] ONE Stop: 11/24/19 01:33 Last Admin: 11/23/19 23:52 Dose: 999 mls/hr Documented by: Levothyroxine Sodium (Synthroid) 75 mcg PO DAILY@0600 [facility] Melatonin (Melatonin) 3 mg PO QHS PRN PRN PRN Reason: INSOMNIA Ondansetron HCl (Zofran) 4 mg IV Q8H PRN PRN PRN Reason: NAUSEA/VOMITING Oxycodone HCl (Oxyir) 5 mg PO Q4H PRN PRN PRN Reason: Pain Score 4-5/10 Oxycodone HCl (Oxyir) 10 mg PO Q4H PRN PRN PRN Reason: Pain Score 6-10/10 Senna/Docusate Sodium (Senokot-S, Yudy-Colace) 2 tablet PO BID PRN PRN PRN Reason: Constipation Sodium Chloride () 10 - 40 ml IV UD PRN PRN Reason: SALINE FLUSH Last Admin: 11/23/19 23:37 Dose: 10 ml Documented by: Assessment/Plan All Active Problems Redness of the left leg and foot (Acute) Sepsis (Acute) Cellulitis of lower extremity (Acute) The patient is a 63 year old M with a significant history of CAD status post CABG x2 and stent; and osteomyelitis status post left foot partial amputation presents emergency department with left foot pain; erythema of left foot; swelling of left foot and with a fever; tachypnea; heart rate of more than 90; leukocytosis and with low blood pressure. Severe sepsis secondary to infection of left wound with surrounding cellulitis. Lactic acid is 1.2 Received Zosyn in the emergency department; and continued. Patient was started on vancomycin inpatient. However nurse reported that patient developed redness of and itching. Benadryl IV was ordered. Vancomycin was discontinued and added to allergy list. Linezolid was ordered. Home Cymbalta discontinued to prevent serotonin syndrome. We will get MRI of left foot. Received 1 L of normal saline bolus at emergency department. Will give extra 2 L of bolus. Trend blood pressures. Hold home metoprolol. Oxycodone for pain. Bowel protocol in place. Antiemetics PRN. Both Dr Almendarez , ID specialist and Dr. Roberts , podiatry are familiar with patients; consult placed. Keep n.p.o. after midnight until further recommendation from podiatry. Wet-to-dry dressing on left stump. Wound care consult. Hypothyroidism Synthroid continued. Tobacco abuse Counseled. Hypokalemia Potassium presentation was 3.2. Replaced Trend Diabetes mellitus Patient with history of diabetes on profile. However patient denies diabetes. Blood glucose is normal. Will check A1c to investigate diabetic status. DVT Prophylaxis SCD ordered. Inpatient E&M: [id number] Init Hosp L3
[2019-11-24] VITALS (15 sets, daily range): BP systolic 87–157; BP diastolic 33–74; PULSE 50–100; RESP 16–18; TEMP 36.3–39.2; O2SAT 93–100; BMI 22.6; BMI 23.9
--- NOTE | 2019-11-24 00:33 | PHA.PHARE_ITS ---
Consult Pharmacy has been consulted to manage selected antiobiotic: Vancomycin Type of Consult: New start Labs: Sodium 131 mmol/L (136-145) L 11/23/19 18:52 Potassium 3.2 mmol/L (3.5-5.1) L 11/23/19 18:52 Chloride 99 mmol/L (98-107) 11/23/19 18:52 Carbon Dioxide 27.0 mmol/L (21.0-32.0) 11/23/19 18:52 Anion Gap 5 (5-15) 11/23/19 18:52 BUN 10 mg/dL (7-18) 11/23/19 18:52 Creatinine 0.92 mg/dL (0.70-1.30) 11/23/19 18:52 Est GFR (MDRD) Af Amer 107 mL/min (>60) 11/23/19 18:52 Est GFR (MDRD) Non-Af 88 mL/min (>60) 11/23/19 18:52 BUN/Creatinine Ratio 10.9 RATIO (10-20) 11/23/19 18:52 Glucose 100 mg/dL (74-106) 11/23/19 18:52 Goal Trough: 15-20 mcg/mL Pharmacy Plan for Drug Dosing: Pharmacy Service will continue to monitor and adjust dosing as required. Medications Vancomycin HCl 2,000 mg/ (Sodium Chloride) 540 mls @ 250 mls/hr IV X1 ONE Stop: 11/24/19 01:39 Last Admin: 11/24/19 00:14 Dose: 250 mls/hr Documented by: Vancomycin HCl 1,250 mg/ (Sodium Chloride) 275 mls @ 167 mls/hr IV Q12H [facility] Follow-Up Labs: Trough Vancomycin Labs to be done on [date and time ordered]: 11/24 @ [id number]
[2019-11-24 01:42] LABS: Hemoglobin A1c 5.7 % (3.8-5.6)
[2019-11-24] MEDS: DiphenhydrAMINE 50 MG/ML Syringe 25 MG IV (02:07)
[2019-11-24] MEDS: Levothyroxine 75 MCG Tablet PO (05:11)
[2019-11-24 05:18] LABS: Absolute Lymphocyte Count 1.07 X10^3/uL (0.83-4.51); Absolute Neutrophil Count 13.3 X10^3/uL (2.0-7.7); Basophil# 0.09 X10^3/uL; Basophil% 0.6 % (0-1); Eosinophils% 0.6 % (0-5); Hematocrit 32.8 % (40-54); Hemoglobin 10.5 g/dL (13.0-16.5); Lymphocyte # 1.07 X10^3/ul (4.0); Lymphocyte % 6.7 % (19-41); Mean Corpuscular Hgb 25.7 pg (27.0-32.0); Mean Corpuscular Volume 80.2 fL (80-94); Mean Platelet Vol. 11.4 fl (6.2-12.0); Monocyte# 1.22 X10^3/uL; Monocyte% 7.7 % (0-10); NRBC Flagged by Analyzer 0 % (0-5); Neutrophil # 13.29 X10^3/uL (2.7-7.7); Neutrophil % 83.7 % (47-70); Platelet Count 275 K/mm3 (150-450); RBC Distribution Width CV 15.3 % (11.6-14.6); RBC Distribution Width SD 44.6 fl (35.1-43.9); Red Blood Count 4.09 M/mm3 (4.6-6.2); White Blood Count 15.9 K/mm3 (4.4-11.0)
[2019-11-24 05:35] LABS: Anion Gap 3 (5-15); BUN 8 mg/dL (7-18); BUN/Creat Ratio 11.1 RATIO (10-20); Calcium,Total 7.7 mg/dL (8.5-10.1); Chloride 114 mmol/L (98-107); Creatinine, Serum 0.72 mg/dL (0.70-1.30); EST Glomerular Filtration Rate 116 mL/min (>60); Est Glom Filt Rate - Afr Amer 140 mL/min (>60); Estimated Creatinine Clearance 112.27 ml/min; Glucose 88 mg/dL (74-106); Potassium 3.7 mmol/L (3.5-5.1); Sodium Level 142 mmol/L (136-145)
[2019-11-24] MEDS: Linezolid 600 MG 600 MG/300 ML BAG 200 MG IV ×2 (06:00→22:14)
--- NOTE | 2019-11-24 07:27 | NURSING ---
wound photo: left foot
--- NOTE | 2019-11-24 07:37 | CON.PCM_ITS ---
Reason for Consult Date of Consultation: 11/24/19 Reason for Consultation: Left foot infection History of Present Illness: The patient is a 64 year old gentleman with multiple medical problems including diabetes, tobacco use, s/p left TMA presented to [facility] ER yesterday for worsening wound and signs/symptoms of infection. Patient was admitted for severe sepsis. Patient has been started on IV antibiotics. Patient is very noncompliant, has been walking all over foot, misses several follow up appointments, and continues to use tobacco. He understands he is at very high risk for BKA or even possibly AKA in future. WBC noted to be elevated, temp was noted to be 102.5 F in ER, now 98.3. Left foot xrays show significant periosteal reaction to the left 2nd and 3rd residual metatarsals. Patient resting comfortably in bed. He relates he has no pain - he has significant lower extremity peripheral neuropathy. Past Medical History Past Medical History (Chronic Problems): Chronic Problems Type 2 diabetes mellitus with foot ulcer (Chronic) Type 2 diabetes mellitus with foot ulcer (Chronic) Homelessness (Chronic) Hypothyroidism (Chronic) History of hyperlipidemia (Chronic) History of gastroesophageal reflux (GERD) (Chronic) Deep venous thrombosis of upper extremity (Chronic) CAD (coronary artery disease) (Chronic) Benign essential hypertension (Chronic) Allergies colesevelam HCl [From WelChol] Allergy (Verified 11/23/19 18:45) Rash dicyclomine Allergy (Verified 11/23/19 18:45) Rash divalproex sodium [From Depakote] Allergy (Verified 11/23/19 18:45) Unknown rofecoxib [From Vioxx] Allergy (Verified 11/23/19 18:45) Rash vancomycin Adverse Reaction (Verified 11/24/19 01:51) Rash Home Medications: Ambulatory Orders Medication Instructions Recorded Levothyroxine [Synthroid] 75 mcg PO DAILY 09/01/13 Duloxetine HCl 30 mg PO DAILY 07/07/19 Rosuvastatin Calcium [Crestor] 20 mg PO DAILY 07/07/19 Metoprolol Tartrate 25 mg PO BID 11/23/19 Surgical History: coronary bypass surgery, - - Coronary artery stent placement April 2017, amputation of the left great toe Psychiatric History: No pertinent psych hx Smoking Status: Current every day smoker Tobacco Use: Cigarettes - *Family History Maternal History Items: Diabetes Paternal History Items: Cancer - Lung cancer Review of Systems Constitutional: Reports: Fever. Denies: Chills Gastrointestinal: Denies: Nausea, Vomiting Musculoskeletal: Denies: Foot Pain Patient Problems: Active and Suspected Problems Cellulitis of lower extremity (Acute) - Physical Exam Vitals/I&O's: Vital Signs Temp Pulse Resp BP Pulse Ox 98.3 F 74 18 111/68 98 11/24/19 05:14 11/24/19 05:14 11/24/19 05:14 11/24/19 05:14 11/24/19 05:14 Oxygen Delivery Method Room Air Weight: 77.6 kg Body Mass Index (BMI) 22.6 Finger Stick Blood Glucose 92 Intake and Output for Last 24 Hours 11/22/19 11/23/19 11/24/19 23:59 23:59 23:59 Intake Total 2099 3090.00 / 3090.00 Output Total 1550 / 1550 Balance 2099 1540.00 / 1540.00 General: Alert, Oriented x3, Cooperative, No apparent distress Extremities: No Calf Tenderness, - - Right foot with no open lesions or evidence of infection. Left TMA noted with wound centrally with exposed 2nd residual metatarsal bone, there is noted to be purulent drainage and nonviable tissue to the site, there is an abscess noted to the site, there is some surrounding erythema, there is edema to the foot and lower extremity. Pedal pulses intact, no evidence of acute ischemia bilateral foot. Sensation absent to the foot/ankle bilateral. No POP or pain on ROM to the foot ankle bilateral. Psych/Mental Status: Alert and oriented to time, place, person, mood and affect Laboratory Results 11/23/19 18:52: WBC 21.9 H, RBC 4.79, Hgb 12.1 L, Hct 38.3 L, MCV 80.0, MCH 25.3 L, MCHC 31.6 L, RDW Std Deviation 44.2 H, RDW Coeff of Jesus 15.4 H, Plt Count 335, MPV 10.8, Immature Gran % (Auto) 1.100 H, Neut % (Auto) 85.4 H, Lymph % (Auto) 4.3 L, [place] % (Auto) 8.8, Eos % (Auto) 0.0, Baso % (Auto) 0.4, Absolute Neuts (auto) 18.7 H, Absolute Lymphs (auto) 0.93, Nucleated RBC % 0, Differential Comment COMMENT, Diff Path Review July foll 11/23/19 18:52: Sodium 131 L, Potassium 3.2 L, Chloride 99, Carbon Dioxide 27.0, Anion Gap 5, BUN 10, Creatinine 0.92, Estim Creat Clear Calc 91.67, Est GFR (MDRD) Af Amer 107, Est GFR (MDRD) Non-Af 88, BUN/Creatinine Ratio 10.9, Glucose 100, Calcium 8.7 11/23/19 18:52: Lactic Acid 1.2 11/23/19 18:52: Hemoglobin A1c 5.7 H 11/24/19 04:44: WBC 15.9 H, RBC 4.09 L, Hgb 10.5 L, Hct 32.8 L, MCV 80.2, MCH 25.7 L, MCHC 32.0, RDW Std Deviation 44.6 H, RDW Coeff of Jesus 15.3 H, Plt Count 275, MPV 11.4, Immature Gran % (Auto) 0.700, Neut % (Auto) 83.7 H, Lymph % (Auto) 6.7 L, [place] % (Auto) 7.7, Eos % (Auto) 0.6, Baso % (Auto) 0.6, Absolute Neuts (auto) 13.3 H, Absolute Lymphs (auto) 1.07, Nucleated RBC % 0 11/24/19 04:44: Sodium 142, Potassium 3.7, Chloride 114 H, Carbon Dioxide 25.0, Anion Gap 3 L, BUN 8, Creatinine 0.72, Estim Creat Clear Calc 112.27, Est GFR (MDRD) Af Amer 140, Est GFR (MDRD) Non-Af 116, BUN/Creatinine Ratio 11.1, Glucose 88, Calcium 7.7 L 11/24/19 07:15: S.aureus Protein A PCR Pending, MRSA (PCR) Pending Current Medications Acetaminophen (Tylenol) 650 mg PO Q6H PRN PRN PRN Reason: Pain Score 1-10/Temp > 100.7 F Atorvastatin Calcium (Lipitor) 40 mg PO QHS SHMUEL Diphenhydramine HCl (Benadryl) 25 mg IV Q6H PRN PRN PRN Reason: ALLERGIES Last Admin: 11/24/19 02:07 Dose: 25 mg Documented by: Sodium Chloride () 1,000 mls @ 75 mls/hr IV .[id number] [facility] Last Infusion: 11/24/19 07:35 Dose: 75 mls/hr Documented by: Piperacillin Sod/Tazobactam (Sod 3.375 gm/ Sodium Chloride) 50 mls @ 12.5 mls/hr IV Q8 [facility] Last Admin: 11/24/19 05:25 Dose: 12.5 mls/hr Documented by: Sodium Chloride () 250 mls @ 15 mls/hr IV .[id number] PRN PRN Reason: Saline Flush Sodium Chloride () 250 mls @ 15 mls/hr IV .[id number] PRN PRN Reason: Additional IVPB Infusion Linezolid (Zyvox 600mg) 600 mg in 300 mls @ 200 mls/hr IV Q12 [facility] Last Infusion: 11/24/19 07:35 Dose: Infused Documented by: Levothyroxine Sodium (Synthroid) 75 mcg PO DAILY@0600 [facility] Last Admin: 11/24/19 05:11 Dose: 75 mcg Documented by: Melatonin (Melatonin) 3 mg PO QHS PRN PRN PRN Reason: INSOMNIA Ondansetron HCl (Zofran) 4 mg IV Q8H PRN PRN PRN Reason: NAUSEA/VOMITING Oxycodone HCl (Oxyir) 5 mg PO Q4H PRN PRN PRN Reason: Pain Score 4-5/10 Oxycodone HCl (Oxyir) 10 mg PO Q4H PRN PRN PRN Reason: Pain Score 6-10/10 Senna/Docusate Sodium (Senokot-S, Yudy-Colace) 2 tablet PO BID PRN PRN PRN Reason: Constipation Sodium Chloride () 10 - 40 ml IV UD PRN PRN Reason: SALINE FLUSH Last Admin: 11/23/19 23:37 Dose: 10 ml Documented by: Assessment/Plan All Active Problems Redness of the left leg and foot (Acute) Sepsis (Acute) Cellulitis of lower extremity (Acute) Osteomyelitis and abscess w/ cellulitis left foot s/p TMA Diabetes with neuropathy Tobacco Dependence Reviewed diagnostic data. There is noted to signs/symptoms of infection to the left foot with abscess present, there is noted to be exposed bone to the distal TMA site, and left foot xrays with periosteal reaction. Given the findings we discussed further debridement and partial foot amputation today in the OR, this was discussed with him, reviewed rationale of this as well as possible benefits vs risks. 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 Goal of procedure with debridement and partial foot amputation is infection management at this time. Patient has been NPO. Cultures have been obtained and pending. Patient is on IV antibiotics and ID service has been consulted. No weightbearing left foot. Diabetes and further medical management per hospitalist/medicine team. Thank you for consult.
--- NOTE | 2019-11-24 08:00 | MRI_ITS ---
STUDY: MRI LEFT FOREFOOT WITH AND WITHOUT CONTRAST REASON FOR EXAM: Left foot osteomyelitis. TECHNIQUE: Standardized fat and water weighted pulse sequences were obtained in all 3 orthogonal planes, pre and post contrast administration. 15 mL of Dotarem was administered for the contrast portion of the examination. COMPARISON: Radiographs 07/23/2019 and MRI images 07/08/2019. FINDINGS: There is amputation of the first through fifth metatarsals at the level of the diaphyses. There is bone edema of the diaphysis and base of the second metatarsal (inversion recovery sagittal images 11-13) with decreased T1 bone marrow signal (T1 sagittal images 12-14) and contrast enhancement (postcontrast T1 sagittal images 10, 11) suggestive of osteomyelitis. There is bone edema of the third metatarsal diaphysis and base (inversion recovery sagittal images 8-10) with decreased T1 bone marrow signal (T1 sagittal images 10, 11) and contrast enhancement (postcontrast T1 sagittal images 7-9) suggestive of osteomyelitis. There is mild bone edema in the diaphysis of the fourth metatarsal (T1 sagittal images 7, 8) with mild decreased T1 bone marrow signal (T1 sagittal images 8, 9) and mild contrast enhancement (postcontrast T1 sagittal image 6) also suggestive of osteomyelitis. There is bone marrow edema in the fifth metatarsal diaphysis (inversion recovery sagittal image 8) without corresponding decreased T1 bone marrow signal and therefore either early osteomyelitis or reactive bone edema. There is mild bone edema in the residual first metatarsal (T1 sagittal images 16-18) without decreased T1 bone marrow signal and therefore either early osteomyelitis or reactive bone edema. There is an ulcer at the stump of the amputation with underlying fluid collection (T1 sagittal images 12-15) with contrast wall enhancement (postcontrast T1 sagittal images 8-14) suggestive of soft tissue abscess measuring 3.4 cm in AP dimension. There is atrophy of the intrinsic muscles of the foot (T1 sagittal images 9-19) consistent with peripheral neuropathy. There is arthropathy of the talonavicular, calcaneocuboid and navicular-cuneiform articulations (T1 sagittal images 10-22) with mild bone edema of the cuboid, navicular and middle and lateral cuneiforms (inversion recovery sagittal images 9-20) suggestive of neuropathic osteoarthropathy. There are small effusions of the fourth and fifth tarsometatarsal articulations (T2 series 9 images 15-18). MRI/Lower Ext No Joint W/WO Cont IMPRESSION: Osteomyelitis of the second, third and fourth metatarsals. Bone edema of the first and fifth metatarsals, either early osteomyelitis or reactive bone edema. Soft tissue abscess underlying the ulcer at the stump of the amputation. Neuropathic osteoarthropathy. Atrophy of the intrinsic muscles of the foot consistent with peripheral neuropathy. Small effusions of the fourth and fifth tarsometatarsal articulations. Electronically Signed: Jose Francisco Chang MD at 9:47 EDT Tel , Service support ,
[2019-11-24 09:39] LABS: M R Staph aureus DNA By PCR Negative (Negative); Probe Check PASS; Specimen Processing Control PASS; Staph aureus DNA By PCR NEGATIVE (Negative)
--- NOTE | 2019-11-24 09:46 | EKG12_ITS ---
Test Reason : PRE-OP Blood Pressure : / mmHG Vent. Rate : 075 BPM Atrial Rate : 075 BPM P-R Int : 194 ms QRS Dur : 092 ms QT Int : 394 ms P-R-T Axes : 045 -04 038 degrees QTc Int : 439 ms Normal sinus rhythm Normal ECG When compared with ECG of 08-JUL-2019 13:19, No significant change was found Confirmed by MAIKEL FERNANDES, CARINA ([id number]), index editor TIM FRANCIS ([id number]) on 12/03/2019 1:40:43 PM Referred By: REGINALDO Confirmed By:CLARKE KO MD
--- NOTE | 2019-11-24 11:29 | CASEMGMT ---
RN Note: attempted to see patient for assessment. Attempted to call to daughter who lives with patient, no answer. Brittany WATSON RN ACM
--- NOTE | 2019-11-24 12:00 | AMP_PTH ---
PATIENT: RK MCCLURE LOC: MS3 U#:[id number] AGE/SX: 64/M ROOM: [facility] [place] RE11/23/[address]: Dr. Ana M Mello MD : 1955 BED: 1 DIS: 11/27/2019 SPEC #: [id number] RECD: 11/24/19 13:59 STATUS: JENNY RESmitha #: [id number] JUAN ALBERTO: 11/24/19 12:[address]: Jeremiah Roberts DEPT: SURGICAL PATHOLOGY RECD BY: Marti Garcia ENTERED: 11/25/19 12:36 SP TYPE: Amputation OTHR DR: MD Dr. Los Kramer MD Dr. Nicholas F Kotsonis, MD Dr. Robert Leininger, MD Tissues: A - Bone of foot, NOS B - Foot, NOS Procedures: Decalcification bone/plaque Special Stain Group I Surgery Specimen Level III Surgery Specimen Level IV AFB Stain (control) GMS Stain (control) HEADER OPERATION: Partial foot amputation PRE-OP DIAGNOSIS: Osteomyelitis TISSUE SUBMITTED: A - Clearance fragment second left metatarsal, B - Amputated left forefoot MICROSCOPIC DIAGNOSIS A. Second metatarsal clearance fragment: Pieces of bone, negative for acute osteomyelitis. B. Left forefoot, amputation: Focal ulceration, acute and chronic inflammation, granulation tissue reaction and abscess formation. Pieces of bone with acute osteomyelitis. Special stains for acid fast bacilli and fungi are negative for organisms; matched controls are appropriate. UYEN:ava 12/02/19 MICROSCOPIC DESCRIPTION Slides are reviewed. GROSS DESCRIPTION A - Received in fixative is one container labeled with the patient's name and designated Clearance fragment second left metatarsal. The specimen consists of three pieces of bravo-white bone measuring in aggregate 0.6 x 0.2 x 0.1 cm. The entire specimen is submitted in one cassette after decalcification. B - Received in fixative is one container labeled with the patient's name and designated amputated left foot. The specimen consists of multiple pieces of skin with underlying tissue measuring in aggregate 10 x 8 x 3 cm. The skin shows an area of hyperkeratosis. The skin surface shows a focal area of ulceration and thickening. Also present in the container are multiple pieces of bone measuring in aggregate 9 x 8 x 4 cm. Torpedo Worker sections are submitted in five cassettes as follows: 1 & 2 - area of ulceration, 3-5??bone after decalcification. / UYEN:ava 11/25/19 TC:2 CPT: 14376, 23653, 15549 x2, 24760 x2
--- NOTE | 2019-11-24 13:20 | RAD_ITS ---
STUDY: X-RAY - LEFT FOOT CLINICAL: Status post left foot surgery. TECHNIQUE: 3 view(s) of the foot. COMPARISON: Radiographs 11/23/2019. FINDINGS: Normal talus, calcaneus, and tarsal bones. There is neuropathic osteoarthropathy of the talonavicular, calcaneocuboid and navicular-cuneiform articulations. There is resection of the remaining first metatarsal and amputation of the second through fifth metatarsals at the level of the proximal metatarsal bases. There is postoperative gas in the amputation stump. RAD/Foot min 3 Views IMPRESSION: Resection of the remaining first metatarsal and amputation of the second through fifth metatarsals at the level of the proximal metatarsal bases. Electronically Signed: Jose Francisco Chang MD at 13:49 EDT Tel , Service support ,
[2019-11-24] MEDS: 0.9% Normal Saline 1,000 ML 75 ML IV ×2 (13:41→19:41)
--- NOTE | 2019-11-24 13:48 | CASEMGMT ---
RN CM Note: patient is still not on unit. RN CM assessment deferred until tomorrow. Brittany LOCON RN ACM
[2019-11-24 14:04] LABS: Pathologist Review Reviewed
[2019-11-24 14:06] LABS: Bedside Glucose 89 mg/dL (70-110)
--- NOTE | 2019-11-24 15:05 | PCM.HP.ID ---
Problem List (1) Osteomyelitis Status: Inactive Reason for Consult: osteo Consulted by: Dr. Oakes History of Present Illness: The patient is a 64 year old M with DM, L foot TMA for osteo, presented yesterday with several days of increased L foot pain, redness, swelling, not feeling well, nausea. Had been walking more on his foot. In ED, admitted on vanc/zosyn, taken to OR today by Dr. Roberts for I&D. Sleepy s/p OR. Full ROS performed and neg except as noted above. - Medical History Past Medical History (Chronic Problems): Chronic Problems Type 2 diabetes mellitus with foot ulcer (Chronic) Type 2 diabetes mellitus with foot ulcer (Chronic) Homelessness (Chronic) Hypothyroidism (Chronic) History of hyperlipidemia (Chronic) History of gastroesophageal reflux (GERD) (Chronic) Deep venous thrombosis of upper extremity (Chronic) CAD (coronary artery disease) (Chronic) Benign essential hypertension (Chronic) Allergies/Adverse Reactions: Allergies colesevelam HCl [From WelChol] Allergy (Verified 11/23/19 18:45) Rash dicyclomine Allergy (Verified 11/23/19 18:45) Rash divalproex sodium [From Depakote] Allergy (Verified 11/23/19 18:45) Unknown rofecoxib [From Vioxx] Allergy (Verified 11/23/19 18:45) Rash vancomycin Adverse Reaction (Verified 11/24/19 01:51) Rash Home Medications: Ambulatory Orders Medication Instructions Recorded Levothyroxine [Synthroid] 75 mcg PO DAILY 09/01/13 Duloxetine HCl 30 mg PO DAILY 07/07/19 Rosuvastatin Calcium [Crestor] 20 mg PO DAILY 07/07/19 Metoprolol Tartrate 25 mg PO BID 11/23/19 - Social History SMOKING STATUS:: Current every day smoker Vital Signs Temp Pulse Resp BP Pulse Ox 98.2 F 61 18 107/62 98 11/24/19 14:56 11/24/19 14:56 11/24/19 14:56 11/24/19 14:56 11/24/19 14:56 Oxygen Delivery Method Room Air Weight: 77.6 kg Body Mass Index (BMI) 22.6 Finger Stick Blood Glucose 89 Microbiology Past 72 Hours 11/23/19 22:00 Gram Stain - Final Wound - Left Foot Wound Culture - Preliminary Gram negative nuha Gram negative nuha#2 Laboratory Tests Past 24 Hrs 11/23/19 11/23/19 11/23/19 18:52 18:52 18:52 WBC 21.9 H RBC 4.79 Hgb 12.1 L Hct 38.3 L MCV 80.0 MCH 25.3 L MCHC 31.6 L RDW Std Deviation 44.2 H RDW Coeff of Jesus 15.4 H Plt Count 335 MPV 10.8 Immature Gran % (Auto) 1.100 H Neut % (Auto) 85.4 H Lymph % (Auto) 4.3 L [place] % (Auto) 8.8 Eos % (Auto) 0.0 Baso % (Auto) 0.4 Absolute Neuts (auto) 18.7 H Absolute Lymphs (auto) 0.93 Nucleated RBC % 0 Differential Comment COMMENT Diff Path Review Reviewed Sodium 131 L Potassium 3.2 L Chloride 99 Carbon Dioxide 27.0 Anion Gap 5 BUN 10 Creatinine 0.92 Estim Creat Clear Calc 91.67 Est GFR (MDRD) Af Amer 107 Est GFR (MDRD) Non-Af 88 BUN/Creatinine Ratio 10.9 Glucose 100 Hemoglobin A1c Lactic Acid 1.2 Calcium 8.7 S.aureus Protein A PCR MRSA (PCR) 11/23/19 11/24/19 11/24/19 18:52 04:44 04:44 WBC 15.9 H RBC 4.09 L Hgb 10.5 L Hct 32.8 L MCV 80.2 MCH 25.7 L MCHC 32.0 RDW Std Deviation 44.6 H RDW Coeff of Jesus 15.3 H Plt Count 275 MPV 11.4 Immature Gran % (Auto) 0.700 Neut % (Auto) 83.7 H Lymph % (Auto) 6.7 L [place] % (Auto) 7.7 Eos % (Auto) 0.6 Baso % (Auto) 0.6 Absolute Neuts (auto) 13.3 H Absolute Lymphs (auto) 1.07 Nucleated RBC % 0 Differential Comment Diff Path Review Sodium 142 Potassium 3.7 Chloride 114 H Carbon Dioxide 25.0 Anion Gap 3 L BUN 8 Creatinine 0.72 Estim Creat Clear Calc 112.27 Est GFR (MDRD) Af Amer 140 Est GFR (MDRD) Non-Af 116 BUN/Creatinine Ratio 11.1 Glucose 88 Hemoglobin A1c 5.7 H Lactic Acid Calcium 7.7 L S.aureus Protein A PCR MRSA (PCR) 11/24/19 07:15 WBC RBC Hgb Hct MCV MCH MCHC RDW Std Deviation RDW Coeff of Jesus Plt Count MPV Immature Gran % (Auto) Neut % (Auto) Lymph % (Auto) [place] % (Auto) Eos % (Auto) Baso % (Auto) Absolute Neuts (auto) Absolute Lymphs (auto) Nucleated RBC % Differential Comment Diff Path Review Sodium Potassium Chloride Carbon Dioxide Anion Gap BUN Creatinine Estim Creat Clear Calc Est GFR (MDRD) Af Amer Est GFR (MDRD) Non-Af BUN/Creatinine Ratio Glucose Hemoglobin A1c Lactic Acid Calcium S.aureus Protein A PCR NEGATIVE MRSA (PCR) Negative - Other Studies Radiology: [] reviewed Other Studies: [] Route of nutrition/ use of supplements: [] Nutritional Intake: [] IV Site: [] Waggoner Catheter: [] - Physical Exam General: Cooperative, No apparent distress, Lethargic HEENT: Atraumatic, PERRLA, EOMI Neck: Supple, No Nodes Lungs: Clear to auscultation, Normal air movement Cardiovascular: Regular rate, Regular Rhythm, No murmurs Abdomen: Soft, Non Tender, Non-Distended Extremities: No edema Skin: Ulcer/ Wound - reviewed photos IV Site: Peripheral, without redness Musculoskeletal: No Tenderness to Palpation of Joints or Extremities Neurological: Cranial nerves II-XII grossly intact - Assessment/Plan Antibiotics: [] Assessment/Plan: [] Active and Suspected Problems Cellulitis of lower extremity (Acute) sepsis (fever, leukocytosis) due to L foot osteo/abscess s/p TMA - now s/p OR 11/24/[address] Roberts for debridement. Cxs pending, so far showing GNR x2 from foot. On vanc/zosyn. Will follow, thank you.
--- NOTE | 2019-11-24 15:59 | PCM.PN.HOSP ---
Patient Problems: Active and Suspected Problems Cellulitis of lower extremity (Acute) Subjective: Postoperatively. No pain in his left foot. Tolerating a diet Vitals/I&O's: Vital Signs Temp Pulse Resp BP Pulse Ox 98.2 F 61 18 107/62 98 11/24/19 14:56 11/24/19 14:56 11/24/19 14:56 11/24/19 14:56 11/24/19 14:56 Oxygen Delivery Method Room Air Weight: 171 lb 1.259 oz Body Mass Index (BMI) 22.6 Finger Stick Blood Glucose 89 Intake and Output for Last 24 Hours 11/22/19 11/23/19 11/24/19 23:59 23:59 23:59 Intake Total 2099 3872.50 / 3872.50 Output Total 1550 / 1550 Balance 2099 2322.50 / 2322.50 General: Alert, Oriented x3, Cooperative, No apparent distress HEENT: Atraumatic, PERRLA, EOMI, Normocephalic Oral: Moist Mucosa Neck: Supple, No JVD Lungs: Clear to auscultation, Normal air movement, No rhonchi, No wheeze, No rales, Diminished Cardiovascular: Regular rate, Regular Rhythm, Normal S1, Normal S2, No murmurs Abdomen: Soft, Non Tender, Non-Distended, No Hepato-splenomegaly Extremities: No edema, Capillary Refill Less than 3 Seconds Skin: No rashes, No breakdown, - - Left foot Chalino wrapped Neurological: Neuro grossly intact, Sensory exam intact to light touch and pain Psych/Mental Status: Normal Affect, Appropriate Microbiology Past 72 Hours 11/23/19 22:00 Wound - Left Foot Gram Stain - Final 11/23/19 22:00 Wound - Left Foot Wound Culture - Preliminary Gram negative nuha Gram negative nuha#2 Laboratory Results 11/23/19 18:52: WBC 21.9 H, RBC 4.79, Hgb 12.1 L, Hct 38.3 L, MCV 80.0, MCH 25.3 L, MCHC 31.6 L, RDW Std Deviation 44.2 H, RDW Coeff of Jesus 15.4 H, Plt Count 335, MPV 10.8, Immature Gran % (Auto) 1.100 H, Neut % (Auto) 85.4 H, Lymph % (Auto) 4.3 L, [place] % (Auto) 8.8, Eos % (Auto) 0.0, Baso % (Auto) 0.4, Absolute Neuts (auto) 18.7 H, Absolute Lymphs (auto) 0.93, Nucleated RBC % 0, Differential Comment COMMENT, Diff Path Review Reviewed 11/23/19 18:52: Sodium 131 L, Potassium 3.2 L, Chloride 99, Carbon Dioxide 27.0, Anion Gap 5, BUN 10, Creatinine 0.92, Estim Creat Clear Calc 91.67, Est GFR (MDRD) Af Amer 107, Est GFR (MDRD) Non-Af 88, BUN/Creatinine Ratio 10.9, Glucose 100, Calcium 8.7 11/23/19 18:52: Lactic Acid 1.2 11/23/19 18:52: Hemoglobin A1c 5.7 H 11/24/19 04:44: WBC 15.9 H, RBC 4.09 L, Hgb 10.5 L, Hct 32.8 L, MCV 80.2, MCH 25.7 L, MCHC 32.0, RDW Std Deviation 44.6 H, RDW Coeff of Jesus 15.3 H, Plt Count 275, MPV 11.4, Immature Gran % (Auto) 0.700, Neut % (Auto) 83.7 H, Lymph % (Auto) 6.7 L, [place] % (Auto) 7.7, Eos % (Auto) 0.6, Baso % (Auto) 0.6, Absolute Neuts (auto) 13.3 H, Absolute Lymphs (auto) 1.07, Nucleated RBC % 0 11/24/19 04:44: Sodium 142, Potassium 3.7, Chloride 114 H, Carbon Dioxide 25.0, Anion Gap 3 L, BUN 8, Creatinine 0.72, Estim Creat Clear Calc 112.27, Est GFR (MDRD) Af Amer 140, Est GFR (MDRD) Non-Af 116, BUN/Creatinine Ratio 11.1, Glucose 88, Calcium 7.7 L 11/24/19 07:15: S.aureus Protein A PCR NEGATIVE, MRSA (PCR) Negative 11/24/19 14:03: POC Glucose 89 Current Medications Acetaminophen (Tylenol) 650 mg PO Q6H PRN PRN PRN Reason: Pain Score 1-10/Temp > 100.7 F Atorvastatin Calcium (Lipitor) 40 mg PO QHS [facility] Diphenhydramine HCl (Benadryl) 25 mg IV Q6H PRN PRN PRN Reason: ALLERGIES Last Admin: 11/24/19 02:07 Dose: 25 mg Documented by: Sodium Chloride () 1,000 mls @ 75 mls/hr IV .[id number] [facility] Last Admin: 11/24/19 13:41 Dose: 75 mls/hr Documented by: Piperacillin Sod/Tazobactam (Sod 3.375 gm/ Sodium Chloride) 50 mls @ 12.5 mls/hr IV Q8 [facility] Last Infusion: 11/24/19 13:41 Dose: Infused Documented by: Sodium Chloride () 250 mls @ 15 mls/hr IV .[id number] PRN PRN Reason: Saline Flush Sodium Chloride () 250 mls @ 15 mls/hr IV .[id number] PRN PRN Reason: Additional IVPB Infusion Linezolid (Zyvox 600mg) 600 mg in 300 mls @ 200 mls/hr IV Q12 [facility] Last Infusion: 11/24/19 07:35 Dose: Infused Documented by: Levothyroxine Sodium (Synthroid) 75 mcg PO DAILY@0600 [facility] Last Admin: 11/24/19 05:11 Dose: 75 mcg Documented by: Melatonin (Melatonin) 3 mg PO QHS PRN PRN PRN Reason: INSOMNIA Nutritional Formula (Robert - [place] Flavor) [facility] Ondansetron HCl (Zofran) 4 mg IV Q8H PRN PRN PRN Reason: NAUSEA/VOMITING Oxycodone HCl (Oxyir) 5 mg PO Q4H PRN PRN PRN Reason: Pain Score 4-5/10 Oxycodone HCl (Oxyir) 10 mg PO Q4H PRN PRN PRN Reason: Pain Score 6-10/10 Senna/Docusate Sodium (Senokot-S, Yudy-Colace) 2 tablet PO BID PRN PRN PRN Reason: Constipation Sodium Chloride () 10 - 40 ml IV UD PRN PRN Reason: SALINE FLUSH Last Admin: 11/23/19 23:37 Dose: 10 ml Documented by: STROKE Vital Signs/Narrative: Vital Signs Temp Pulse Resp BP Pulse Ox 11/24/19 14:56 98.2 F 61 18 107/62 98 09/02/20 14:15 97.3 F L 60 18 101/60 98 11/24/19 14:00 64 18 92/64 94 11/24/19 13:45 64 18 101/61 95 11/24/19 13:30 66 18 100/64 95 11/24/19 13:25 97.3 F L 71 18 99/64 99 Medical Necessity - Tobacco Use Smoking Status: Current every day smoker Tobacco Use: Cigarettes Assessment/Plan All Active Problems Redness of the left leg and foot (Acute) Sepsis (Acute) Cellulitis of lower extremity (Acute) 1. Sepsis secondary to osteomyelitis of the left foot with cellulitis -Continue with Zosyn and Zyvox, wound culture so far with 2 gram-negative rods -Status post OR 11/24/2019 for left midfoot amputation per podiatry -Appreciate ID and podiatry input -Leukocytosis improving, MRSA is negative 2. HTN/HLD/CAD status post CABG and stent -Blood pressure stable, he was initially continued on his metoprolol however he did have some low blood pressure therefore this was discontinued, will continue to monitor and restart prior to discharge -Continue with his statin 3. Hypothyroidism -Stable -Continue Synthroid 4. Depression -Stable -Continue Cymbalta DVT: SCDs Inpatient E&M: 25924 Subs Hosp L2
--- NOTE | 2019-11-24 16:34 | PCM.OPRPT ---
Report of Operation Date of Procedure: 11/24/19 Pre-Operative Diagnosis: Ulceration down to necrotic bone left foot. Osteomyelitis left foot. Abscess left foot Post-Operative Diagnosis: Same Surgery/Procedure Performed:: Debridement left foot down to bone w/ partial foot amputation (proximal transmetatarsal) dedicated owner operator: None Type of Anesthesia:: General Specimen's removed: 1. Amputated left forefoot sent to pathology. 2. Bone culture from amputation left forefoot (residual 2nd metatarsal) sent to microbiology. 3. Clearance fragment 2nd metatarsal sent to pathology and microbiology Estimated Blood Loss (mL): 10mL Description of Procedure: Indications: This is a 64 year old gentleman with history of multiple medical problems, including but not limited to diabetes, CAD, as well as continued tobacco use, as well as illicit drug use. 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 He is also homeless. Per discussion with patient's daughter (who patient requested I speak with regarding his condition), patient is homeless due to illicit drug problems. Patient has also been very nonadherent with medical recommendations - he has been walking all over foot despite advices on multiple occasions for strict nonweightbearing/offloading, Patient also misses several follow up appointment - no shows. Patient now presents with worsening infected foot ulceration, bone is exposed and visible abscess present. WBC elevated and patient with fever. MRI consistent with osteomyelitis. Given the findings we discussed debridement of all nonviable necrotic soft tissue and bone, with further partial foot amputation of the left foot. Patient understands he is at very high risk of more proximal limb loss. Reviewed the possible benefits vs risks, goals, expectations and estimated healing time. Patient understands he is at risk for further infection, amputation, loss of limb, and loss of life. Also advised patient risks also include but are not limited to need for further surgery, blood clots, weakness, transfer lesions, ischemia, bleeding, pain, chronic pain, deformity, numbness, swelling, inability to walk or wear shoes, charcot foot, complex regional pain syndrome, and again loss of limb, and loss of life. Patient expressed understanding and agreement and patient agreed to proceed forward with the procedure. All of his questions were answered. The consent form was reviewed with patient, and the patient freely signed it. Operative Procedure: The patient was brought back to the operating room and was placed on the operating room table in the supine position. The patient was carefully secured to the operating room table with a safety belt around his waist. The patient was already on IV antibiotics. A time out was performed and the patient was properly identified and the surgical plan was confirmed. The patient received general anesthesia per the anesthesia team. A well padded pneumatic tourniquet was applied to the left ankle. The left foot was scrubbed, prepped and draped in the usual aseptic fashion. Further attention was directed to the left foot, where there was significant necrosis central residual forefoot with exposed residual 2nd metatarsal bone. There was purulence and cellulitis as well as edema. The exposed bone was soft and nonviable with necrosis. The left foot was elevated for 3 minutes and the ankle pneumatic tourniquet was inflated to 250mmHg. Using a #15 scalpel blade all nonviable, necrotic, infected tissue was removed, this involvement a significant amount of soft tissue down to bone of the central and medial forefoot, area debrided was 8.5cm x 6.5cm and down to bone (5cm in depth). There was noted to be central abscess both acute and chronic to the plantar residual forefoot which was debrided and excised using a 15 blade. This was debrided down to healthy viable tissue. Due to the significant involvement a revision proximal transmetatarsal amputation was completed and considered the best option to remove the infection and try to preserve the most possible functional foot in future. A circumferential incision was made around the distal left forefoot with care to preserve the viable plantar and dorsal skin for later flap closure. The incision was carried directly to bone. Next using the soft tissues were reflected off of the residual first, second, third, fourth, and fifth metatarsals. Then using a powered sagittal saw, osteotomies were made through the proximal shafts of the second, third, fourth, and fifth metatarsals with care taken to preserve the parabola of the foot. The 1st metatarsal was resected at the 1st metatarsal cuneiform joint using a 15 blade. These osteotomies were made with a slight bevel from dorsal distal and plantar proximal. The 5th metatarsal was beveled as well. The bone at this level of the osteotomies appeared white, hard, viable, bleeding, with normal healthy appearing cortical bone and marrow cavity. At this time using a #15 scalpel blade the soft tissue attachments to the residual distal right forefoot were removed again taking care to preserve the skin and subcutaneous tissue of the plantar and dorsal flap. The residual forefoot was then removed as passed from the surgical field and sent as a specimen to pathology, and a deep bone culture was obtained from the removed nonviable necrotic 2nd metatarsal sending that to microbiology. All tendons were cut proximal to the surgical wound. The remaining soft tissues and metatarsals to the right foot appeared healthy, viable, clean, hard, bleeding, free of infection. A clearance fragment was obtained from the 2nd metatarsal shaft - sent to both pathology and microbiology. This bone did appear healthy, viable and free of infection. The site was flushed with copious amount of normal saline solution. The flap edges were remodeled using a 15 scalpel blade do the dorsal and plantar flaps could be properly aligned without tension. The skin of the dorsal and plantar flaps were reapproximated using 3-0 Prolene but left open centrally and site was packed with 1/4in Iodoform gauze packing. 10mL of 0.5% Bupivicaine plain was given as a local nerve block around the surgical site. At this time a surgical dressing of 4x4 gauze, Kerlix, abd pads, and philip wrap were applied to the foot. The ankle pneumatic tourniquet was deflated (total time was 45 minutes) and there was return of warmth and perfusion to the foot. CFT was less than 3 seconds to the flap sites. Of note at the end of the operative procedure I did obtain a superficial needle stick with the final suture in which the proper hospital protocol was followed and documented. The patient tolerated the above procedure and anesthesia well with no complications. Patient was transported to the recovery Room with vital signs stable and in good condition. Post operative orders were placed. No weightbearing left foot, keep foot elevated. Postoperative xrays of the foot were obtained and reviewed- s/p TMA with a maintained parabola, no complications seen. Post-op instructions were reviewed. Patient to be followed as inpatient. Grafts/Implants Used: None - Complications None
[2019-11-24] MEDS: Acetaminophen 325 MG Tablet 650 MG PO (18:41)
--- NOTE | 2019-11-24 21:40 | NURSING ---
Temp checked at this time, 102.6. Unable to take PRN tylenol at this time. Will notify MD of temp. Patient encouraged to us IS at this time, patient refused.
[2019-11-24] MEDS: Atorvastatin Calcium 40 MG Tablet PO (22:15)
[2019-11-24] MEDS: Ibuprofen 400 MG Tablet PO (22:53)
[2019-11-25 00:57] VITALS: BP 102/61; PULSE 95; RESP 18; TEMP 36.9; O2SAT 99
[2019-11-25 02:55] VITALS: BMI 23.9
[2019-11-25 05:34] VITALS: BP 97/57; PULSE 83; RESP 18; TEMP 36.5; O2SAT 97
[2019-11-25] MEDS: Levothyroxine 75 MCG Tablet PO (05:38)
[2019-11-25 05:52] LABS: Absolute Lymphocyte Count 1.28 X10^3/uL (0.83-4.51); Absolute Neutrophil Count 9.7 X10^3/uL (2.0-7.7); Basophil# 0.05 X10^3/uL; Basophil% 0.4 % (0-1); Eosinophil# 0.19 X10^3/uL; Eosinophils% 1.5 % (0-5); Hematocrit 33.7 % (40-54); Hemoglobin 10.5 g/dL (13.0-16.5); Lymphocyte # 1.28 X10^3/ul (4.0); Lymphocyte % 10.1 % (19-41); Mean Corp Hgb Conc 31.2 g/dL (32-36); Mean Corpuscular Hgb 25.1 pg (27.0-32.0); Mean Corpuscular Volume 80.6 fL (80-94); Mean Platelet Vol. 10.8 fl (6.2-12.0); Monocyte# 1.38 X10^3/uL; Monocyte% 10.9 % (0-10); NRBC Flagged by Analyzer 0 % (0-5); Neutrophil % 76.6 % (47-70); Platelet Count 268 K/mm3 (150-450); RBC Distribution Width CV 15.5 % (11.6-14.6); RBC Distribution Width SD 45.2 fl (35.1-43.9); Red Blood Count 4.18 M/mm3 (4.6-6.2); White Blood Count 12.7 K/mm3 (4.4-11.0)
[2019-11-25 06:15] LABS: Anion Gap 4 (5-15); BUN 9 mg/dL (7-18); BUN/Creat Ratio 11.7 RATIO (10-20); Calcium,Total 7.8 mg/dL (8.5-10.1); Chloride 113 mmol/L (98-107); Creatinine, Serum 0.77 mg/dL (0.70-1.30); EST Glomerular Filtration Rate 108 mL/min (>60); Est Glom Filt Rate - Afr Amer 131 mL/min (>60); Estimated Creatinine Clearance 104.98 ml/min; Glucose 90 mg/dL (74-106); Potassium 3.5 mmol/L (3.5-5.1); Sodium Level 142 mmol/L (136-145)
[2019-11-25 06:55] VITALS: BMI 23.9
[2019-11-25 07:57] VITALS: O2SAT 98
--- NOTE | 2019-11-25 08:57 | PN_ITS ---
Patient Problems: Active and Suspected Problems Cellulitis of lower extremity (Acute) Subjective: Patient was seen this morning for follow up on left foot, s/p debridement / revision partial foot amputation. Patient relates there is no pain. Had fever overnight, no current fever, chills, nausea or vomiting. - Physical Exam Vitals/I&O's: Vital Signs Temp Pulse Resp BP Pulse Ox 97.7 F L 83 18 97/57 L 98 11/25/19 05:34 11/25/19 05:34 11/25/19 05:34 11/25/19 05:34 11/25/19 07:57 Oxygen Delivery Method Room Air Weight: 77.6 kg Body Mass Index (BMI) 22.6 Finger Stick Blood Glucose 89 Intake and Output for Last 24 Hours 11/23/19 11/24/19 11/25/19 23:59 23:59 23:59 Intake Total 2099 5621.25 / 5621.25 1297.5 / 1297.5 Output Total 2750 / 2750 2099 Balance 2099 2871.25 / 2871.25 -802.5 / -802.5 General: Alert, Oriented x3, Cooperative, No apparent distress Extremities: No Calf Tenderness, Peripheral Pulses Normal, - - s/p debridement/revision TMA left foot - tissues healthy and viable, no purulence, no streaking, no crepitus, no visible abscess - there is edema to the foot/ankle; no evidence of ischemia to the foot, tissues viable appearing. Of note patien with calf edema - left. Musculoskeletal: No Tenderness to Palpation of Joints or Extremities - to the left foot/ankle Psych/Mental Status: Alert and oriented to time, place, person, mood and affect Microbiology Past 72 Hours 11/23/19 22:00 Wound - Left Foot Gram Stain - Final 11/23/19 22:00 Wound - Left Foot Wound Culture - Preliminary Gram negative nuha Gram negative nuha#2 Laboratory Results 11/23/19 18:52: Diff Path Review Reviewed 11/24/19 07:15: S.aureus Protein A PCR NEGATIVE, MRSA (PCR) Negative 11/24/19 14:03: POC Glucose 89 11/25/19 05:28: WBC 12.7 H, RBC 4.18 L, Hgb 10.5 L, Hct 33.7 L, MCV 80.6, MCH 25.1 L, MCHC 31.2 L, RDW Std Deviation 45.2 H, RDW Coeff of Jesus 15.5 H, Plt Count 268, MPV 10.8, Immature Gran % (Auto) 0.500, Neut % (Auto) 76.6 H, Lymph % (Auto) 10.1 L, [place] % (Auto) 10.9 H, Eos % (Auto) 1.5, Baso % (Auto) 0.4, Absolute Neuts (auto) 9.7 H, Absolute Lymphs (auto) 1.28, Nucleated RBC % 0 11/25/19 05:28: Sodium 142, Potassium 3.5, Chloride 113 H, Carbon Dioxide 25.0, Anion Gap 4 L, BUN 9, Creatinine 0.77, Estim Creat Clear Calc 104.98, Est GFR (MDRD) Af Amer 131, Est GFR (MDRD) Non-Af 108, BUN/Creatinine Ratio 11.7, Glucose 90, Calcium 7.8 L 11/25/19 05:28: HIV-1 RNA (PCR) log10 Pending, HIV-1 RNA Ultraquant PCR Pending Current Medications Acetaminophen (Tylenol) 650 mg PO Q6H PRN PRN PRN Reason: Pain Score 1-10/Temp > 100.7 F Last Admin: 11/24/19 18:41 Dose: 650 mg Documented by: Atorvastatin Calcium (Lipitor) 40 mg PO QHS [facility] Last Admin: 11/24/19 22:15 Dose: 40 mg Documented by: Diphenhydramine HCl (Benadryl) 25 mg IV Q6H PRN PRN PRN Reason: ALLERGIES Last Admin: 11/24/19 02:07 Dose: 25 mg Documented by: Sodium Chloride () 1,000 mls @ 75 mls/hr IV .[id number] [facility] Last Infusion: 11/25/19 05:39 Dose: 75 mls/hr Documented by: Piperacillin Sod/Tazobactam (Sod 3.375 gm/ Sodium Chloride) 50 mls @ 12.5 mls/hr IV Q8 [facility] Last Admin: 11/25/19 05:39 Dose: 12.5 mls/hr Documented by: Sodium Chloride () 250 mls @ 15 mls/hr IV .[id number] PRN PRN Reason: Saline Flush Sodium Chloride () 250 mls @ 15 mls/hr IV .[id number] PRN PRN Reason: Additional IVPB Infusion Linezolid (Zyvox 600mg) 600 mg in 300 mls @ 200 mls/hr IV Q12 [facility] Last Infusion: 11/24/19 23:44 Dose: Infused Documented by: Ibuprofen (Motrin) 400 mg PO Q6H PRN PRN PRN Reason: temp greater than 100.4 F Last Admin: 11/24/19 22:53 Dose: 400 mg Documented by: Levothyroxine Sodium (Synthroid) 75 mcg PO DAILY@0600 [facility] Last Admin: 11/25/19 05:38 Dose: 75 mcg Documented by: Melatonin (Melatonin) 3 mg PO QHS PRN PRN PRN Reason: INSOMNIA Nutritional Formula (Robert - [place] Flavor) 1 packet PO BIDCM [facility] Last Admin: 11/24/19 17:55 Dose: Not Given Documented by: Ondansetron HCl (Zofran) 4 mg IV Q8H PRN PRN PRN Reason: NAUSEA/VOMITING Oxycodone HCl (Oxyir) 5 mg PO Q4H PRN PRN PRN Reason: Pain Score 4-5/10 Oxycodone HCl (Oxyir) 10 mg PO Q4H PRN PRN PRN Reason: Pain Score 6-10/10 Senna/Docusate Sodium (Senokot-S, Yudy-Colace) 2 tablet PO BID PRN PRN PRN Reason: Constipation Sodium Chloride () 10 - 40 ml IV UD PRN PRN Reason: SALINE FLUSH Last Admin: 11/23/19 23:37 Dose: 10 ml Documented by: Medical Necessity - Tobacco Use Smoking Status: Current every day smoker Tobacco Use: Cigarettes Assessment/Plan All Active Problems Redness of the left leg and foot (Acute) Sepsis (Acute) Cellulitis of lower extremity (Acute) Osteomyelitis and abscess w/ cellulitis left foot s/p debridement on 11/24/2019 s/p TMA Diabetes with neuropathy Tobacco Dependence Left foot examined and doing well at this time. Surgical cultures and path results pending. Wound culture with gram negative rods - patient on IV antibiotics, ID/Dr. Almendarez following. Dressing changes left foot: Pack site centrally with overlying gauze, kerlix and philip dressing - change daily. No weightbearing left foot. Keep foot elevated. Reviewed importance of tobacco cessation. It is noted patient has chronic left calf edema - likely from infection hx however venous doppler ordered for further evaluation. Ok to resume chemical DVT prophylaxis from foot standpoint as bleeding is controlled at this time. Patient is homeless and will need placement for recovery. Of note patient with hx of illicit drug use which is why patient's daughters do not want him to stay with them. Podiatry will continue to follow closely.
--- NOTE | 2019-11-25 09:00 | PN_ITS ---
Patient Problems: Active and Suspected Problems Cellulitis of lower extremity (Acute) Subjective: Doing well, no issues overnight,, he did spike a fever to 102.6 at around 11 PM however he remains afebrile since then Vitals/I&O's: Vital Signs Temp Pulse Resp BP Pulse Ox 97.7 F L 83 18 97/57 L 98 11/25/19 05:34 11/25/19 05:34 11/25/19 05:34 11/25/19 05:34 11/25/19 07:57 Oxygen Delivery Method Room Air Weight: 171 lb 1.259 oz Body Mass Index (BMI) 22.6 Finger Stick Blood Glucose 89 Intake and Output for Last 24 Hours 11/23/19 11/24/19 11/25/19 23:59 23:59 23:59 Intake Total 2099 5621.25 / 5621.25 1297.5 / 1297.5 Output Total 2750 / 2750 2099 Balance 2099 2871.25 / 2871.25 -802.5 / -802.5 General: Alert, Oriented x3, Cooperative, No apparent distress HEENT: Atraumatic, PERRLA, EOMI, Normocephalic Oral: Moist Mucosa Neck: Supple, No JVD Lungs: Clear to auscultation, Normal air movement, No rhonchi, No wheeze, No rales Cardiovascular: Regular rate, Regular Rhythm, Normal S1, Normal S2, No murmurs Abdomen: Soft, Non Tender, Non-Distended, No Hepato-splenomegaly Extremities: No edema, Capillary Refill Less than 3 Seconds Skin: No rashes, No breakdown, - - Left foot [place] wrapped Neurological: Neuro grossly intact, Sensory exam intact to light touch and pain Psych/Mental Status: Normal Affect, Appropriate Microbiology Past 72 Hours 11/23/19 22:00 Wound - Left Foot Gram Stain - Final 11/23/19 22:00 Wound - Left Foot Wound Culture - Preliminary Gram negative nuha Gram negative nuha#2 Laboratory Results 11/23/19 18:52: Diff Path Review Reviewed 11/24/19 07:15: S.aureus Protein A PCR NEGATIVE, MRSA (PCR) Negative 11/24/19 14:03: POC Glucose 89 11/25/19 05:28: WBC 12.7 H, RBC 4.18 L, Hgb 10.5 L, Hct 33.7 L, MCV 80.6, MCH 25.1 L, MCHC 31.2 L, RDW Std Deviation 45.2 H, RDW Coeff of Jesus 15.5 H, Plt Count 268, MPV 10.8, Immature Gran % (Auto) 0.500, Neut % (Auto) 76.6 H, Lymph % (Auto) 10.1 L, [place] % (Auto) 10.9 H, Eos % (Auto) 1.5, Baso % (Auto) 0.4, Absolute Neuts (auto) 9.7 H, Absolute Lymphs (auto) 1.28, Nucleated RBC % 0 11/25/19 05:28: Sodium 142, Potassium 3.5, Chloride 113 H, Carbon Dioxide 25.0, Anion Gap 4 L, BUN 9, Creatinine 0.77, Estim Creat Clear Calc 104.98, Est GFR (MDRD) Af Amer 131, Est GFR (MDRD) Non-Af 108, BUN/Creatinine Ratio 11.7, Glucose 90, Calcium 7.8 L 11/25/19 05:28: HIV-1 RNA (PCR) log10 Pending, HIV-1 RNA Ultraquant PCR Pending Current Medications Acetaminophen (Tylenol) 650 mg PO Q6H PRN PRN PRN Reason: Pain Score 1-10/Temp > 100.7 F Last Admin: 11/24/19 18:41 Dose: 650 mg Documented by: Atorvastatin Calcium (Lipitor) 40 mg PO QHS [facility] Last Admin: 11/24/19 22:15 Dose: 40 mg Documented by: Diphenhydramine HCl (Benadryl) 25 mg IV Q6H PRN PRN PRN Reason: ALLERGIES Last Admin: 11/24/19 02:07 Dose: 25 mg Documented by: Sodium Chloride () 1,000 mls @ 75 mls/hr IV .[id number] [facility] Last Infusion: 11/25/19 05:39 Dose: 75 mls/hr Documented by: Piperacillin Sod/Tazobactam (Sod 3.375 gm/ Sodium Chloride) 50 mls @ 12.5 mls/hr IV Q8 [facility] Last Admin: 11/25/19 05:39 Dose: 12.5 mls/hr Documented by: Sodium Chloride () 250 mls @ 15 mls/hr IV .[id number] PRN PRN Reason: Saline Flush Sodium Chloride () 250 mls @ 15 mls/hr IV .[id number] PRN PRN Reason: Additional IVPB Infusion Linezolid (Zyvox 600mg) 600 mg in 300 mls @ 200 mls/hr IV Q12 [facility] Last Infusion: 11/24/19 23:44 Dose: Infused Documented by: Ibuprofen (Motrin) 400 mg PO Q6H PRN PRN PRN Reason: temp greater than 100.4 F Last Admin: 11/24/19 22:53 Dose: 400 mg Documented by: Levothyroxine Sodium (Synthroid) 75 mcg PO DAILY@0600 [facility] Last Admin: 11/25/19 05:38 Dose: 75 mcg Documented by: Melatonin (Melatonin) 3 mg PO QHS PRN PRN PRN Reason: INSOMNIA Nutritional Formula (Robert - [place] Flavor) 1 packet PO BIDCM [facility] Last Admin: 11/24/19 17:55 Dose: Not Given Documented by: Ondansetron HCl (Zofran) 4 mg IV Q8H PRN PRN PRN Reason: NAUSEA/VOMITING Oxycodone HCl (Oxyir) 5 mg PO Q4H PRN PRN PRN Reason: Pain Score 4-5/10 Oxycodone HCl (Oxyir) 10 mg PO Q4H PRN PRN PRN Reason: Pain Score 6-10/10 Senna/Docusate Sodium (Senokot-S, Yudy-Colace) 2 tablet PO BID PRN PRN PRN Reason: Constipation Sodium Chloride () 10 - 40 ml IV UD PRN PRN Reason: SALINE FLUSH Last Admin: 11/23/19 23:37 Dose: 10 ml Documented by: STROKE Vital Signs/Narrative: Vital Signs Temp Pulse Resp BP Pulse Ox 11/25/19 07:57 98 11/25/19 05:34 97.7 F L 83 18 97/57 L 97 Medical Necessity - Tobacco Use Smoking Status: Current every day smoker Tobacco Use: Cigarettes Assessment/Plan All Active Problems Redness of the left leg and foot (Acute) Sepsis (Acute) Cellulitis of lower extremity (Acute) 1. Sepsis secondary to osteomyelitis of the left foot with cellulitis -Continue with Zosyn and Zyvox, wound culture so far with 2 gram-negative rods -Status post OR 11/24/2019 for left midfoot amputation per podiatry -Appreciate ID and podiatry input -Leukocytosis improving, MRSA is negative 2. HTN/HLD/CAD status post CABG and stent -Blood pressure stable, he was initially continued on his metoprolol however he did have some low blood pressure therefore this was discontinued, will continue to monitor and restart prior to discharge -Continue with his statin 3. Hypothyroidism -Stable -Continue Synthroid 4. Depression -Stable -Continue Cymbalta DVT: SCDs Inpatient E&M: 40453 Subs Hosp L2
--- NOTE | 2019-11-25 09:03 | VDLE_ITS ---
Reason For Study: SWELLING Procedure LEFT Exam performed portable in patient room. CFV is compressible, spontaneous, phasic, A preliminary report was called and/or faxed competent, and demonstrates normal to MS3. augmentation. FV is compressible, spontaneous, phasic, competent and demonstrates normal augmentation. POP V is compressible, spontaneous, phasic, competent and demonstrates normal augmentation. T/P Trunk is compressible. PTV is compressible. LT PerV is compressible. LEFT GSV AK has been harvested . The remainder of the GSV BK is compressible. Interpretation Summary There is no evidence of left lower extremity deep vein thrombosis. Left below-knee great saphenous vein patent and compressible Ordering Physician: Jeremiah Roberts Referring Physician: BITA CANO Performed By: Nikita CURRAN, Laura MCCORMICK and Student
--- NOTE | 2019-11-25 09:23 | NURSING ---
wound photo: left foot
[2019-11-25 09:26] VITALS: BP 101/52; PULSE 69; RESP 16; TEMP 37; O2SAT 96
[2019-11-25] MEDS: 0.9% Normal Saline 1,000 ML 75 ML IV (09:29)
[2019-11-25] MEDS: Linezolid 600 MG 600 MG/300 ML BAG 200 MG IV ×2 (09:30→22:15)
--- NOTE | 2019-11-25 09:58 | PN.ID_ITS ---
Patient Problems: Active and Suspected Problems Cellulitis of lower extremity (Acute) Subjective: Feeling ok, no fever, no n/v/d. - Physical Exam Vitals/I&O's: Vital Signs Temp Pulse Resp BP Pulse Ox 98.6 F 69 16 101/52 L 96 11/25/19 09:26 11/25/19 09:26 11/25/19 09:26 11/25/19 09:26 11/25/19 09:26 Oxygen Delivery Method Room Air Weight: 77.6 kg Body Mass Index (BMI) 22.6 Finger Stick Blood Glucose 89 Intake and Output for Last 24 Hours 11/23/19 11/24/19 11/25/19 23:59 23:59 23:59 Intake Total 2099 5621.25 / 5621.25 1551.25 / 1551.25 Output Total 2750 / 2750 2099 Balance 2099 2871.25 / 2871.25 -548.75 / -548.75 General: Alert, Cooperative, No apparent distress Lungs: Clear to auscultation, Normal air movement Cardiovascular: Regular rate, Regular Rhythm Abdomen: Soft, Non Tender, Non-Distended Skin: Ulcer/ Wound - foot wrapped, reviewed photo Microbiology Past 72 Hours 11/23/19 22:00 Wound - Left Foot Gram Stain - Final 11/23/19 22:00 Wound - Left Foot Wound Culture - Preliminary Gram negative nuha Gram negative nuha#2 Streptococcus group A Laboratory Results 11/23/19 18:52: Diff Path Review Reviewed 11/24/19 14:03: POC Glucose 89 11/25/19 05:28: WBC 12.7 H, RBC 4.18 L, Hgb 10.5 L, Hct 33.7 L, MCV 80.6, MCH 25.1 L, MCHC 31.2 L, RDW Std Deviation 45.2 H, RDW Coeff of Jesus 15.5 H, Plt Count 268, MPV 10.8, Immature Gran % (Auto) 0.500, Neut % (Auto) 76.6 H, Lymph % (Auto) 10.1 L, [place] % (Auto) 10.9 H, Eos % (Auto) 1.5, Baso % (Auto) 0.4, Absolute Neuts (auto) 9.7 H, Absolute Lymphs (auto) 1.28, Nucleated RBC % 0 11/25/19 05:28: Sodium 142, Potassium 3.5, Chloride 113 H, Carbon Dioxide 25.0, Anion Gap 4 L, BUN 9, Creatinine 0.77, Estim Creat Clear Calc 104.98, Est GFR (MDRD) Af Amer 131, Est GFR (MDRD) Non-Af 108, BUN/Creatinine Ratio 11.7, Glucose 90, Calcium 7.8 L 11/25/19 05:28: HIV-1 RNA (PCR) log10 Pending, HIV-1 RNA Ultraquant PCR Pending Current Medications Acetaminophen (Tylenol) 650 mg PO Q6H PRN PRN PRN Reason: Pain Score 1-10/Temp > 100.7 F Last Admin: 11/24/19 18:41 Dose: 650 mg Documented by: Atorvastatin Calcium (Lipitor) 40 mg PO QHS [facility] Last Admin: 11/24/19 22:15 Dose: 40 mg Documented by: Diphenhydramine HCl (Benadryl) 25 mg IV Q6H PRN PRN PRN Reason: ALLERGIES Last Admin: 11/24/19 02:07 Dose: 25 mg Documented by: Sodium Chloride () 1,000 mls @ 75 mls/hr IV .[id number] [facility] Last Infusion: 11/25/19 09:30 Dose: 0 mls/hr Documented by: Piperacillin Sod/Tazobactam (Sod 3.375 gm/ Sodium Chloride) 50 mls @ 12.5 mls/hr IV Q8 [facility] Last Admin: 11/25/19 05:39 Dose: 12.5 mls/hr Documented by: Sodium Chloride () 250 mls @ 15 mls/hr IV .[id number] PRN PRN Reason: Saline Flush Sodium Chloride () 250 mls @ 15 mls/hr IV .[id number] PRN PRN Reason: Additional IVPB Infusion Linezolid (Zyvox 600mg) 600 mg in 300 mls @ 200 mls/hr IV Q12 [facility] Last Admin: 11/25/19 09:30 Dose: 200 mls/hr Documented by: Ibuprofen (Motrin) 400 mg PO Q6H PRN PRN PRN Reason: temp greater than 100.4 F Last Admin: 11/24/19 22:53 Dose: 400 mg Documented by: Levothyroxine Sodium (Synthroid) 75 mcg PO DAILY@0600 [facility] Last Admin: 11/25/19 05:38 Dose: 75 mcg Documented by: Melatonin (Melatonin) 3 mg PO QHS PRN PRN PRN Reason: INSOMNIA Nutritional Formula (Robert - [place] Flavor) 1 packet PO BIDCM [facility] Last Admin: 11/25/19 09:30 Dose: 1 packet Documented by: Ondansetron HCl (Zofran) 4 mg IV Q8H PRN PRN PRN Reason: NAUSEA/VOMITING Oxycodone HCl (Oxyir) 5 mg PO Q4H PRN PRN PRN Reason: Pain Score 4-5/10 Oxycodone HCl (Oxyir) 10 mg PO Q4H PRN PRN PRN Reason: Pain Score 6-10/10 Senna/Docusate Sodium (Senokot-S, Yudy-Colace) 2 tablet PO BID PRN PRN PRN Reason: Constipation Sodium Chloride () 10 - 40 ml IV UD PRN PRN Reason: SALINE FLUSH Last Admin: 11/23/19 23:37 Dose: 10 ml Documented by: Medical Necessity - Tobacco Use Smoking Status: Current every day smoker Tobacco Use: Cigarettes Route of nutrition/ use of supplements: [] Nutritional Intake: [] IV Site: [] Waggoner Catheter: [] - Assessment/Plan Antibiotics: [] Assessment/Plan: [] Active and Suspected Problems Cellulitis of lower extremity (Acute) sepsis (fever, leukocytosis) due to L foot osteo/abscess s/p TMA - now s/p OR 11/24/[address] Roberts for debridement and revised TMA. Cxs pending, so far showing GNR x2 and strep from foot. On linezolid/zosyn. If margins are clear, will not need shelter abx at discharge. Will follow, d/w patient case manager
--- NOTE | 2019-11-25 10:35 | CASEMGMT ---
Social Work Note SW updated that pt is agreeable to SNF, prefers [facility] as pt has been there before. SW in to speak with pt. Pt confirms that he is currently homeless, sold his truck last week. Pt states he has no supportive family or friends. Pt denied any current substance abuse/use and denied any mental health hx. Pt confirms that he was at [facility] in the past, prefers to return there at discharge. SW explained referral process. Pt states understanding. SW placed a call to [facility] and spoke with Kay in admissions. Kay states they have no beds available at this time. SW in to speak with pt and updated him that [facility] has no beds available at this time. SW provided pt with list of SNF that accept pt's insurance and encouraged pt to review list and then this worker will be back later this afternoon to get pt's choices for SNF. Pt states understanding. SW updated charge nurse that COVID test will need to be ordered for SNF placement. Plan: SNF pending acceptance Glendy Maher PROTOZOOLOGIST, INSPECTOR BARREL
[2019-11-25 11:19] VITALS: BMI 23.9
--- NOTE | 2019-11-25 13:58 | CASEMGMT ---
Social Work Note SW back in to speak with pt. Pt asked for a SNF that he can smoke in. SW explained that this worker knows [facility] and [facility] both allow smoking but informed pt that he will be in 14 day isolation at any SNF so he will not be able to leave his room to smoke for those 14 days at any SNF. Pt agreeable to [facility]. SW faxed referral to [facility]. SW attempted to call [facility] twice and no answer, unable to leave message. Plan: SNF pending acceptance Glendy Maher REFUGE MANAGER, CALL CENTER TRAINER
[2019-11-25 14:22] VITALS: BMI 23.9
[2019-11-25 14:28] VITALS: BP 118/64; PULSE 69; RESP 16; TEMP 36.9; O2SAT 98
[2019-11-25 17:31] LABS: Probe Check PASS; Specimen Processing Control PASS
[2019-11-25 18:09] VITALS: BMI 23.9
[2019-11-25] MEDS: oxyCODONE 5 MG Tablet 10 MG PO (19:20)
[2019-11-25 20:13] VITALS: BP 121/68; PULSE 72; RESP 16; TEMP 38.1; O2SAT 98
[2019-11-25] MEDS: Ibuprofen 400 MG Tablet PO (20:13)
[2019-11-25] MEDS: Atorvastatin Calcium 40 MG Tablet PO (22:15)
[2019-11-26] MEDS: 0.9% Normal Saline 1,000 ML 75 ML IV ×2 (01:38→15:32)
[2019-11-26 02:04] VITALS: BP 110/63; PULSE 57; RESP 18; TEMP 36.6; O2SAT 93
[2019-11-26] MEDS: Levothyroxine 75 MCG Tablet PO ×2 (05:50)
[2019-11-26 06:36] LABS: Absolute Lymphocyte Count 1.54 X10^3/uL (0.83-4.51); Absolute Neutrophil Count 5.4 X10^3/uL (2.0-7.7); Basophil# 0.07 X10^3/uL; Basophil% 0.9 % (0-1); Eosinophil# 0.35 X10^3/uL; Eosinophils% 4.3 % (0-5); Hematocrit 32.9 % (40-54); Hemoglobin 10.2 g/dL (13.0-16.5); Lymphocyte # 1.54 X10^3/ul (4.0); Lymphocyte % 18.9 % (19-41); Mean Corpuscular Hgb 24.8 pg (27.0-32.0); Mean Platelet Vol. 10.6 fl (6.2-12.0); Monocyte# 0.71 X10^3/uL; Monocyte% 8.7 % (0-10); NRBC Flagged by Analyzer 0 % (0-5); Neutrophil # 5.42 X10^3/uL (2.7-7.7); Neutrophil % 66.7 % (47-70); Platelet Count 287 K/mm3 (150-450); RBC Distribution Width CV 15.6 % (11.6-14.6); RBC Distribution Width SD 45.4 fl (35.1-43.9); Red Blood Count 4.11 M/mm3 (4.6-6.2); White Blood Count 8.1 K/mm3 (4.4-11.0)
[2019-11-26 07:31] VITALS: O2SAT 95
[2019-11-26 08:29] VITALS: BP 117/66; PULSE 57; RESP 18; TEMP 36.7; O2SAT 96
--- NOTE | 2019-11-26 09:29 | CASEMGMT ---
Social Work Note SW placed a call to [facility] and spoke with Kirti in admissions. Kirti states that she never received referral yesterday. SW provided referral to Kirti and refaxed referral to [facility]. Plan: [facility] pending acceptance Glendy Maher SECURITY AGENT, REPAIRER SASH AND DOOR
--- NOTE | 2019-11-26 10:23 | PN_ITS ---
Patient Problems: Active and Suspected Problems Cellulitis of lower extremity (Acute) Subjective: Patient with no new complaints, resting sitting up in chair with foot elevated. No complaints of fever, chills, nausea or vomiting. - Physical Exam Vitals/I&O's: Vital Signs Temp Pulse Resp BP Pulse Ox 98.1 F 57 L 18 117/66 96 11/26/19 08:29 11/26/19 08:29 11/26/19 08:29 11/26/19 08:29 11/26/19 08:29 Oxygen Delivery Method Room Air Weight: 77.6 kg Body Mass Index (BMI) 22.6 Finger Stick Blood Glucose 89 Intake and Output for Last 24 Hours 11/24/19 11/25/19 11/26/19 23:59 23:59 23:59 Intake Total 5621.25 / 5621.25 3772.50 / 4372.50 950 / 950 Output Total 2750 / 2750 2950 / 3300 800 / 800 Balance 2871.25 / 2871.25 822.50 / 1072.50 150 / 150 General: Alert, Oriented x3, Cooperative, No apparent distress Extremities: - - s/p debridement/revision TMA left foot - tissues healthy and viable, no purulence, no streaking, no cellulitis, no crepitus, no visible abscess - there is edema to the foot/ankle; no evidence of ischemia to the foot, tissues viable appearing. Microbiology Past 72 Hours 11/24/19 12:50 Other - Other Gram Stain - Final 11/24/19 12:50 Other - Other Wound Culture - Preliminary Streptococcus group A Alpha Hemolytic Streptococcus 11/24/19 12:53 Other - Other Gram Stain - Final 11/24/19 12:53 Other - Other Wound Culture - Preliminary Gram negative nuha 11/24/19 12:53 Other - Other Anaerobic Culture - Preliminary No growth in 48 hours. 11/23/19 22:00 Wound - Left Foot Gram Stain - Final 11/23/19 22:00 Wound - Left Foot Wound Culture - Final Proteus mirabilis Streptococcus group A 11/23/19 22:00 Wound - Left Foot Anaerobic Culture - Preliminary 11/23/19 18:55 Blood Culture (Wb) - Right Hand Blood Culture - Preliminary No growth in 48 hours. Laboratory Results 11/25/19 13:33: COVID-19 (FELIPE) Negative 11/26/19 06:21: WBC 8.1, RBC 4.11 L, Hgb 10.2 L, Hct 32.9 L, MCV 80.0, MCH 24.8 L, MCHC 31.0 L, RDW Std Deviation 45.4 H, RDW Coeff of Jesus 15.6 H, Plt Count 287, MPV 10.6, Immature Gran % (Auto) 0.500, Neut % (Auto) 66.7, Lymph % (Auto) 18.9 L, [place] % (Auto) 8.7, Eos % (Auto) 4.3, Baso % (Auto) 0.9, Absolute Neuts (auto) 5.4, Absolute Lymphs (auto) 1.54, Nucleated RBC % 0 Current Medications Acetaminophen (Tylenol) 650 mg PO Q6H PRN PRN PRN Reason: Pain Score 1-10/Temp > 100.7 F Last Admin: 11/24/19 18:41 Dose: 650 mg Documented by: Atorvastatin Calcium (Lipitor) 40 mg PO QHS [facility] Last Admin: 11/25/19 22:15 Dose: 40 mg Documented by: Diphenhydramine HCl (Benadryl) 25 mg IV Q6H PRN PRN PRN Reason: ALLERGIES Last Admin: 11/24/19 02:07 Dose: 25 mg Documented by: Sodium Chloride () 1,000 mls @ 75 mls/hr IV .[id number] [facility] Last Admin: 11/26/19 01:38 Dose: 75 mls/hr Documented by: Piperacillin Sod/Tazobactam (Sod 3.375 gm/ Sodium Chloride) 50 mls @ 12.5 mls/hr IV Q8 [facility] Last Admin: 11/26/19 05:50 Dose: 12.5 mls/hr Documented by: Sodium Chloride () 250 mls @ 15 mls/hr IV .[id number] PRN PRN Reason: Saline Flush Sodium Chloride () 250 mls @ 15 mls/hr IV .[id number] PRN PRN Reason: Additional IVPB Infusion Linezolid (Zyvox 600mg) 600 mg in 300 mls @ 200 mls/hr IV Q12 [facility] Last Infusion: 11/25/19 23:45 Dose: Infused Documented by: Ibuprofen (Motrin) 400 mg PO Q6H PRN PRN PRN Reason: temp greater than 100.4 F Last Admin: 11/25/19 20:13 Dose: 400 mg Documented by: Levothyroxine Sodium (Synthroid) 75 mcg PO DAILY@0600 [facility] Last Admin: 11/26/19 05:50 Dose: 75 mcg Documented by: Melatonin (Melatonin) 3 mg PO QHS PRN PRN PRN Reason: INSOMNIA Nutritional Formula (Robert - [place] Flavor) 1 packet PO BIDCM [facility] Last Admin: 11/26/19 08:34 Dose: 1 packet Documented by: Ondansetron HCl (Zofran) 4 mg IV Q8H PRN PRN PRN Reason: NAUSEA/VOMITING Oxycodone HCl (Oxyir) 5 mg PO Q4H PRN PRN PRN Reason: Pain Score 4-5/10 Oxycodone HCl (Oxyir) 10 mg PO Q4H PRN PRN PRN Reason: Pain Score 6-10/10 Last Admin: 11/25/19 19:20 Dose: 10 mg Documented by: Senna/Docusate Sodium (Senokot-S, Yudy-Colace) 2 tablet PO BID PRN PRN PRN Reason: Constipation Sodium Chloride () 10 - 40 ml IV UD PRN PRN Reason: SALINE FLUSH Last Admin: 11/23/19 23:37 Dose: 10 ml Documented by: Medical Necessity - Tobacco Use Smoking Status: Current every day smoker Tobacco Use: Cigarettes Assessment/Plan All Active Problems Redness of the left leg and foot (Acute) Sepsis (Acute) Cellulitis of lower extremity (Acute) Osteomyelitis and abscess w/ cellulitis left foot s/p debridement on 11/24/2019 s/p TMA Diabetes with neuropathy Tobacco Dependence Left foot examined and doing well at this time. Reviewed cultures, clearance frag with gram negative nuha - patient on IV antibiotics, ID/Dr. Almendarez following. Dressing changes left foot: Pack site centrally with overlying gauze, kerlix and philip dressing - change daily. No weightbearing left foot. Keep foot elevated. Reviewed importance of tobacco cessation. It is noted patient has chronic left calf edema - likely from infection hx however venous doppler ordered for further evaluation - no DVT noted. DVT prophylaxis: SCDs. Patient is homeless and will need placement for recovery. Podiatry will continue to follow closely.
[2019-11-26] MEDS: Linezolid 600 MG 600 MG/300 ML BAG 200 MG IV (10:27)
--- NOTE | 2019-11-26 11:28 | PCM.PN.HOSP ---
Patient Problems: Active and Suspected Problems Cellulitis of lower extremity (Acute) Subjective: Doing well, no issues overnight. Vitals/I&O's: Vital Signs Temp Pulse Resp BP Pulse Ox 98.1 F 57 L 18 117/66 96 11/26/19 08:29 11/26/19 08:29 11/26/19 08:29 11/26/19 08:29 11/26/19 08:29 Oxygen Delivery Method Room Air Weight: 171 lb 1.259 oz Body Mass Index (BMI) 22.6 Finger Stick Blood Glucose 89 Intake and Output for Last 24 Hours 11/24/19 11/25/19 11/26/19 23:59 23:59 23:59 Intake Total 5621.25 / 5621.25 3772.50 / 4372.50 1661.25 / 1661.25 Output Total 2750 / 2750 2950 / 3300 1000 / 1000 Balance 2871.25 / 2871.25 822.50 / 1072.50 661.25 / 661.25 General: Alert, Oriented x3, Cooperative, No apparent distress HEENT: Atraumatic, PERRLA, EOMI, Normocephalic Oral: Moist Mucosa Neck: Supple, No JVD Lungs: Clear to auscultation, Normal air movement, No rhonchi, No wheeze, No rales Cardiovascular: Regular rate, Regular Rhythm, Normal S1, Normal S2, No murmurs Abdomen: Soft, Non Tender, Non-Distended, No Hepato-splenomegaly Extremities: No edema, Capillary Refill Less than 3 Seconds Skin: No rashes, No breakdown, - - Left foot Chalino wrapped Neurological: Neuro grossly intact, Sensory exam intact to light touch and pain at the knees bilaterally Psych/Mental Status: Normal Affect, Appropriate Microbiology Past 72 Hours 11/24/19 12:50 Other - Other Gram Stain - Final 11/24/19 12:50 Other - Other Wound Culture - Preliminary Streptococcus group A Alpha Hemolytic Streptococcus 11/24/19 12:53 Other - Other Gram Stain - Final 11/24/19 12:53 Other - Other Wound Culture - Preliminary Gram negative nuha 11/24/19 12:53 Other - Other Anaerobic Culture - Preliminary No growth in 48 hours. 11/23/19 22:00 Wound - Left Foot Gram Stain - Final 11/23/19 22:00 Wound - Left Foot Wound Culture - Final Proteus mirabilis Streptococcus group A 11/23/19 22:00 Wound - Left Foot Anaerobic Culture - Preliminary 11/23/19 18:55 Blood Culture (Wb) - Right Hand Blood Culture - Preliminary No growth in 48 hours. Laboratory Results 11/25/19 13:33: COVID-19 ([facility]IPE) Negative 11/26/19 06:21: WBC 8.1, RBC 4.11 L, Hgb 10.2 L, Hct 32.9 L, MCV 80.0, MCH 24.8 L, MCHC 31.0 L, RDW Std Deviation 45.4 H, RDW Coeff of Jesus 15.6 H, Plt Count 287, MPV 10.6, Immature Gran % (Auto) 0.500, Neut % (Auto) 66.7, Lymph % (Auto) 18.9 L, [place] % (Auto) 8.7, Eos % (Auto) 4.3, Baso % (Auto) 0.9, Absolute Neuts (auto) 5.4, Absolute Lymphs (auto) 1.54, Nucleated RBC % 0 Current Medications Acetaminophen (Tylenol) 650 mg PO Q6H PRN PRN PRN Reason: Pain Score 1-10/Temp > 100.7 F Last Admin: 11/24/19 18:41 Dose: 650 mg Documented by: Atorvastatin Calcium (Lipitor) 40 mg PO QHS [facility] Last Admin: 11/25/19 22:15 Dose: 40 mg Documented by: Diphenhydramine HCl (Benadryl) 25 mg IV Q6H PRN PRN PRN Reason: ALLERGIES Last Admin: 11/24/19 02:07 Dose: 25 mg Documented by: Sodium Chloride () 1,000 mls @ 75 mls/hr IV .[id number] [facility] Last Infusion: 11/26/19 10:27 Dose: 75 mls/hr Documented by: Piperacillin Sod/Tazobactam (Sod 3.375 gm/ Sodium Chloride) 50 mls @ 12.5 mls/hr IV Q8 [facility] Last Infusion: 11/26/19 10:27 Dose: Infused Documented by: Sodium Chloride () 250 mls @ 15 mls/hr IV .[id number] PRN PRN Reason: Saline Flush Sodium Chloride () 250 mls @ 15 mls/hr IV .[id number] PRN PRN Reason: Additional IVPB Infusion Linezolid (Zyvox 600mg) 600 mg in 300 mls @ 200 mls/hr IV Q12 [facility] Last Admin: 11/26/19 10:27 Dose: 200 mls/hr Documented by: Ibuprofen (Motrin) 400 mg PO Q6H PRN PRN PRN Reason: temp greater than 100.4 F Last Admin: 11/25/19 20:13 Dose: 400 mg Documented by: Levothyroxine Sodium (Synthroid) 75 mcg PO DAILY@0600 [facility] Last Admin: 11/26/19 05:50 Dose: 75 mcg Documented by: Melatonin (Melatonin) 3 mg PO QHS PRN PRN PRN Reason: INSOMNIA Nutritional Formula (Robert - Vallecitos Flavor) 1 packet PO BIDCM [facility] Last Admin: 11/26/19 08:34 Dose: 1 packet Documented by: Ondansetron HCl (Zofran) 4 mg IV Q8H PRN PRN PRN Reason: NAUSEA/VOMITING Oxycodone HCl (Oxyir) 5 mg PO Q4H PRN PRN PRN Reason: Pain Score 4-5/10 Oxycodone HCl (Oxyir) 10 mg PO Q4H PRN PRN PRN Reason: Pain Score 6-10/10 Last Admin: 11/25/19 19:20 Dose: 10 mg Documented by: Senna/Docusate Sodium (Senokot-S, Yudy-Colace) 2 tablet PO BID PRN PRN PRN Reason: Constipation Sodium Chloride () 10 - 40 ml IV UD PRN PRN Reason: SALINE FLUSH Last Admin: 11/23/19 23:37 Dose: 10 ml Documented by: STROKE Vital Signs/Narrative: Vital Signs Temp Pulse Resp BP Pulse Ox 11/26/19 08:29 98.1 F 57 L 18 117/66 96 11/26/19 07:31 95 Medical Necessity - Tobacco Use Smoking Status: Current every day smoker Tobacco Use: Cigarettes Assessment/Plan All Active Problems Redness of the left leg and foot (Acute) Sepsis (Acute) Cellulitis of lower extremity (Acute) 1. 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 HTN/HLD/CAD status post CABG and stent -Blood pressure stable, he was initially continued on his metoprolol however he did have some low blood pressure therefore this was discontinued, will continue to monitor and restart prior to discharge if necessary -Continue with his statin 3. Hypothyroidism -Stable -Continue Synthroid 4. Depression -Stable -Continue Cymbalta DVT: SCDs Inpatient E&M: 81006 Subs Hosp L2
--- NOTE | 2019-11-26 13:48 | PCM.PN.ID ---
Patient Problems: Active and Suspected Problems Cellulitis of lower extremity (Acute) Subjective: Feeling ok, no fever, mild loose stool. - Physical Exam Vitals/I&O's: Vital Signs Temp Pulse Resp BP Pulse Ox 98.1 F 57 L 18 117/66 96 11/26/19 08:29 11/26/19 08:29 11/26/19 08:29 11/26/19 08:29 11/26/19 08:29 Oxygen Delivery Method Room Air Weight: 77.6 kg Body Mass Index (BMI) 22.6 Finger Stick Blood Glucose 89 Intake and Output for Last 24 Hours 11/24/19 11/25/19 11/26/19 23:59 23:59 23:59 Intake Total 5621.25 / 5621.25 3772.50 / 4372.50 2802.50 / 2802.50 Output Total 2750 / 2750 2950 / 3300 1400 / 1400 Balance 2871.25 / 2871.25 822.50 / 1072.50 1402.50 / 1402.50 General: Alert, Cooperative, No apparent distress Lungs: Clear to auscultation, Normal air movement Cardiovascular: Regular rate, Regular Rhythm Abdomen: Soft, Non Tender, Non-Distended Skin: Ulcer/ Wound - foot wrapped Microbiology Past 72 Hours 11/24/19 12:50 Other - Other Gram Stain - Final 11/24/19 12:50 Other - Other Wound Culture - Preliminary Streptococcus group A Alpha Hemolytic Streptococcus 11/24/19 12:53 Other - Other Gram Stain - Final 11/24/19 12:53 Other - Other Wound Culture - Preliminary Gram negative nuha 11/24/19 12:53 Other - Other Anaerobic Culture - Preliminary No growth in 48 hours. 11/23/19 22:00 Wound - Left Foot Gram Stain - Final 11/23/19 22:00 Wound - Left Foot Wound Culture - Final Proteus mirabilis Streptococcus group A 11/23/19 22:00 Wound - Left Foot Anaerobic Culture - Preliminary 11/23/19 18:55 Blood Culture (Wb) - Right Hand Blood Culture - Preliminary No growth in 48 hours. Laboratory Results 11/25/19 13:33: COVID-19 ([facility]ELIPE) Negative 11/26/19 06:21: WBC 8.1, RBC 4.11 L, Hgb 10.2 L, Hct 32.9 L, MCV 80.0, MCH 24.8 L, MCHC 31.0 L, RDW Std Deviation 45.4 H, RDW Coeff of Jesus 15.6 H, Plt Count 287, MPV 10.6, Immature Gran % (Auto) 0.500, Neut % (Auto) 66.7, Lymph % (Auto) 18.9 L, [place] % (Auto) 8.7, Eos % (Auto) 4.3, Baso % (Auto) 0.9, Absolute Neuts (auto) 5.4, Absolute Lymphs (auto) 1.54, Nucleated RBC % 0 Current Medications Acetaminophen (Tylenol) 650 mg PO Q6H PRN PRN PRN Reason: Pain Score 1-10/Temp > 100.7 F Last Admin: 11/24/19 18:41 Dose: 650 mg Documented by: Atorvastatin Calcium (Lipitor) 40 mg PO QHS [facility] Last Admin: 11/25/19 22:15 Dose: 40 mg Documented by: Diphenhydramine HCl (Benadryl) 25 mg IV Q6H PRN PRN PRN Reason: ALLERGIES Last Admin: 11/24/19 02:07 Dose: 25 mg Documented by: Sodium Chloride () 1,000 mls @ 75 mls/hr IV .[id number] [facility] Last Infusion: 11/26/19 12:04 Dose: 75 mls/hr Documented by: Sodium Chloride () 250 mls @ 15 mls/hr IV .[id number] PRN PRN Reason: Saline Flush Sodium Chloride () 250 mls @ 15 mls/hr IV .[id number] PRN PRN Reason: Additional IVPB Infusion Ampicillin Sodium/Sulbactam (Sodium 3 gm/ Sodium Chloride) 112 mls @ 150 mls/hr IV Q8 [facility] Ibuprofen (Motrin) 400 mg PO Q6H PRN PRN PRN Reason: temp greater than 100.4 F Last Admin: 11/25/19 20:13 Dose: 400 mg Documented by: Levothyroxine Sodium (Synthroid) 75 mcg PO DAILY@0600 [facility] Last Admin: 11/26/19 05:50 Dose: 75 mcg Documented by: Melatonin (Melatonin) 3 mg PO QHS PRN PRN PRN Reason: INSOMNIA Nutritional Formula (Robert - Simla Flavor) 1 packet PO BIDCM [facility] Last Admin: 11/26/19 08:34 Dose: 1 packet Documented by: Ondansetron HCl (Zofran) 4 mg IV Q8H PRN PRN PRN Reason: NAUSEA/VOMITING Oxycodone HCl (Oxyir) 5 mg PO Q4H PRN PRN PRN Reason: Pain Score 4-5/10 Oxycodone HCl (Oxyir) 10 mg PO Q4H PRN PRN PRN Reason: Pain Score 6-10/10 Last Admin: 11/25/19 19:20 Dose: 10 mg Documented by: Senna/Docusate Sodium (Senokot-S, Yudy-Colace) 2 tablet PO BID PRN PRN PRN Reason: Constipation Sodium Chloride () 10 - 40 ml IV UD PRN PRN Reason: SALINE FLUSH Last Admin: 11/23/19 23:37 Dose: 10 ml Documented by: Medical Necessity - Tobacco Use Smoking Status: Current every day smoker Tobacco Use: Cigarettes Route of nutrition/ use of supplements: [] Nutritional Intake: [] IV Site: [] Waggoner Catheter: [] - Assessment/Plan Antibiotics: [] Assessment/Plan: [] Active and Suspected Problems Cellulitis of lower extremity (Acute) sepsis (fever, leukocytosis) due to L foot osteo/abscess s/p TMA - now s/p OR 11/24/[address] Roberts for debridement and revised TMA. Wound cx with GAS and proteus. Surg clearance cx with GNR. On linezolid/zosyn, narrow to bactrim/unasyn. Plan on 6 weeks po abx at discharge with bactrim DS 1 tab bid and duricef 1gm bid. ID followup in 2 weeks. Will follow, d/w business case analyst
[2019-11-26 14:20] VITALS: BP 142/77; PULSE 59; RESP 18; TEMP 36.9; O2SAT 98
--- NOTE | 2019-11-26 15:08 | CASEMGMT ---
Social Work Note SW received update that pt would like to talk to this worker regarding SNF placement. SW in to speak with pt. Pt states he would like to go to SNF that his daughter works at, states his daughter works at [employer] and would like to go there. SW placed a call to Kirti at [employer] and provided referral. SW faxed referral. SW then received call from Kirti at [facility] stating they are able to accept pt. SW waiting for call back from Kirti at [employer]. Physician states pt will be medically ready for discharge over the weekend. Plan: SNF pending acceptance Glendy Maher FACILITY OPERATIONS MANAGER, ADJUNCT PHYSICS INSTRUCTOR
[2019-11-26] MEDS: Smz/Tmp Ds Tablet 1 TABLET PO (16:44)
--- NOTE | 2019-11-26 16:55 | CASEMGMT ---
Social Work Note SW received call from Swapna at [facility] stating they are able to accept pt over the weekend. SW in to speak with pt. SW updated pt on acceptance to [facility], pt states he prefers [facility], states he will work on getting housing while he is in SNF and states his daughter should be able to assist him. CARLTON informed pt that he will likely be discharged to [facility] over the weekend. Pt states understanding. CARLTON placed a call to Kirti at [facility] updated her that Swapna had informed this worker that [facility] is able to accept and pt will likely be discharged over the weekend. CARLTON updated Kirti that pt hopes to find housing while at SNF, Kirti states they will be able to assist pt with housing as well. Kirti states that pt's COVID test will be good for the weekend for pt to admit. CARLTON placed a call to Kirti at [facility] and updated her to disregard referral. CARLTON completed convalescent [facility] in [facility]. CARLTON placed convalescent 7000, Green sheet and transport form on pt's chart. Plan: [facility] once medically cleared Glendy Maher DAIRY CLERK, SCHOOL COOK
[2019-11-26 20:01] VITALS: BP 143/83; PULSE 65; RESP 16; TEMP 37.5; O2SAT 98
[2019-11-26] MEDS: oxyCODONE 5 MG Tablet 10 MG PO (20:08)
[2019-11-26] MEDS: Ibuprofen 400 MG Tablet PO (21:12)
[2019-11-26] MEDS: Atorvastatin Calcium 40 MG Tablet PO (21:13)
--- NOTE | 2019-11-27 01:47 | PCM.PN.BLA ---
Progress Note Patient had a presentation of left foot. Reportedly patient had blood in his stools that was not witnessed. Stool for occult ordered. Patient is not on any chemical chemoprophylaxis. CBC in a.m.
[2019-11-27 02:18] VITALS: BP 122/77; PULSE 55; RESP 16; TEMP 36.6; O2SAT 96
[2019-11-27 02:21] VITALS: PULSE 55
[2019-11-27] MEDS: 0.9% Normal Saline 1,000 ML 75 ML IV (04:13)
[2019-11-27 08:15] VITALS: BP 126/70; PULSE 61; RESP 16; TEMP 36.7; O2SAT 97
[2019-11-27 08:24] LABS: Absolute Lymphocyte Count 1.83 X10^3/uL (0.83-4.51); Absolute Neutrophil Count 4.8 X10^3/uL (2.0-7.7); Basophil# 0.11 X10^3/uL; Basophil% 1.4 % (0-1); Eosinophil# 0.53 X10^3/uL; Eosinophils% 6.7 % (0-5); Hemoglobin 11.3 g/dL (13.0-16.5); Lymphocyte # 1.83 X10^3/ul (4.0); Mean Corp Hgb Conc 30.5 g/dL (32-36); Mean Corpuscular Hgb 24.6 pg (27.0-32.0); Mean Corpuscular Volume 80.4 fL (80-94); Mean Platelet Vol. 11.1 fl (6.2-12.0); Monocyte# 0.67 X10^3/uL; Monocyte% 8.4 % (0-10); NRBC Flagged by Analyzer 0 % (0-5); Neutrophil # 4.79 X10^3/uL (2.7-7.7); Neutrophil % 60.4 % (47-70); Platelet Count 402 K/mm3 (150-450); RBC Distribution Width CV 15.6 % (11.6-14.6); RBC Distribution Width SD 44.8 fl (35.1-43.9); White Blood Count 7.9 K/mm3 (4.4-11.0)
--- NOTE | 2019-11-27 08:45 | PCM.TXEXTCAR ---
- Diet 11/24/19 13:22 Diet: Carbohydrate Controlled Is pt able to select menu?: Yes Diet Comments: Except meds with sips. - Routine Orders/Code Status Enema Type: Fleetz Enema Frequency: Daily PRN Suppository Type: Dulcolax 10mg Suppository Frequency: Daily PRN O2 Frequency: PRN Keep PO Greater than or Equal to (%): 90 Routine Lab Work: CBC, BMP - Wound(s) Left Foot Wound Type: Surgical Incision Dressing Change: Dry Sterile Dressing - Therapies Weight Bearing: Non weight bearing Physical Therapy: Eval and Treat Occupational Therapy: Eval and Treat - Allergies/Procedures Done in Hospital Allergies/Adverse Reactions: Allergies colesevelam HCl [From WelChol] Allergy (Verified 11/23/19 18:45) Rash dicyclomine Allergy (Verified 11/23/19 18:45) Rash divalproex sodium [From Depakote] Allergy (Verified 11/23/19 18:45) Unknown rofecoxib [From Vioxx] Allergy (Verified 11/23/19 18:45) Rash vancomycin Adverse Reaction (Verified 11/24/19 01:51) Rash - Type of Care/Length of Stay Estimated LOS: Convalescent Care Less Than 30 days Type of Care Needed: Skilled Rehab Potential: Good Prognosis: Good - Additional Orders/Day of Discharge Day of Discharge: 11/27/19 - Dietary and Speech Recommendations Dietitian Recommendations/Changes: Rec CORWIN Regular as pt medically able. Will provide Robert 1 pkt BID and 1-2 extra oz protein w/ meals to promote wound healing. - Follow Up Care Primary Care Physician: Clement Buckner MD [Primary Care Provider] - Please follow up with your Primary Care Physician in: 1-2 weeks Please Follow Up With: Jeremiah Roberts DPM When: 1-2 weeks Please Follow Up With: Rony Reza MD When: for blood in stool. for outpatient colonoscopy as needed
--- NOTE | 2019-11-27 08:49 | PCM.DC.SUM ---
Discharge Date and Diagnosis Date of Admission: 11/23/19 Date of Discharge: 11/27/19 - Primary Discharge Diagnosis Acute Problems: Active Problems Cellulitis of lower extremity (Acute) - Secondary Discharge Diagnosis Chronic Problems: Chronic Problems Type 2 diabetes mellitus with foot ulcer (Chronic) Type 2 diabetes mellitus with foot ulcer (Chronic) Homelessness (Chronic) Hypothyroidism (Chronic) History of hyperlipidemia (Chronic) History of gastroesophageal reflux (GERD) (Chronic) Deep venous thrombosis of upper extremity (Chronic) CAD (coronary artery disease) (Chronic) Benign essential hypertension (Chronic) Hospital Course and Treatment Imaging Results: Diagnostic Data Chest X-Ray 11/23/19 20:30 IMPRESSION: No acute pulmonary findings. Electronically Signed: Stanislav Kimball MD at 21:19 EDT Tel , Service support , Lower Extremity MRI 11/24/19 08:00 IMPRESSION: Osteomyelitis of the second, third and fourth metatarsals. Bone edema of the first and fifth metatarsals, either early osteomyelitis or reactive bone edema. Soft tissue abscess underlying the ulcer at the stump of the amputation. Neuropathic osteoarthropathy. Atrophy of the intrinsic muscles of the foot consistent with peripheral neuropathy. Small effusions of the fourth and fifth tarsometatarsal articulations. Electronically Signed: Jose Francisco Chang MD at 9:47 EDT Tel , Service support , Foot X-Ray 11/24/19 13:20 IMPRESSION: Resection of the remaining first metatarsal and amputation of the second through fifth metatarsals at the level of the proximal metatarsal bases. Electronically Signed: Jose Francisco Chang MD at 13:49 EDT Tel , Service support , Consultations 11/24/19 00:01 Consult: Onc/Wound/mushroom farmer Routine Comment: left stump wound podiatry- Dr Roberts infectious disease- Dr Almendarez Operations: None, - - Debridement left foot and transmetatarsal amputation left foot Procedures: None Summary of Care Provided: The patient is a 64 year old M with an extensive past medical history as outlined was admitted through the ED on 11/23/2019 with a complaint of left foot pain for 2 days prior to admission with associated redness and swelling. He also had a temperature of 100.7 Fahrenheit and also nausea and presyncope. Pain was worsened by ambulation and relieved with rest. In the ED, he had a temperature of 102.5 with heart rate more than 90 respiratory in the 20s. His white cell count was 21.9 and potassium was 3.2 with sodium of 131. He was hydrated with IV fluid and put on IV Zosyn. He was managed for severe sepsis due to left lower extremity cellulitis. He was also started on IV vancomycin on admission but subsequently had itching with this so he was put on linezolid. ID and podiatry were consulted. He had MRI of the left foot which showed osteomyelitis of the second, third and fourth metatarsals and bone edema of the first and fifth metatarsals either early osteomyelitis or reactive bone edema and soft tissue abscess of The ulcer at the stump of the amputation. Patient had debridement of the left foot down to the bone with partial foot amputation of the proximal transmetatarsal. He tolerated procedure well. Wound cultures grew Proteus mirabilis and Streptococcus group a blood blood cultures were negative. White cell counts trended down with treatment. Patient remained stable and was discharged to a [facility] facility on 11/27/2019. He was discharged on double strength Bactrim 1 tablet twice daily for 6 weeks as well as Duricef thousand milligrams twice daily for 6 weeks. He is to follow-up with his primary care doctor, podiatry and infectious diseases. Patient seen and examined prior to discharge. He felt well and had no complaints. Review systems otherwise negative. Labs and vitals reviewed. Home medication reviewed and reconciled. O/E: Vital Signs Temp Pulse Resp BP Pulse Ox 98.0 F 61 16 126/70 H 97 11/27/19 08:15 11/27/19 08:15 11/27/19 08:15 11/27/19 08:15 11/27/19 08:15 [] General: Alert, Oriented x3, Cooperative, No apparent distress HEENT: Atraumatic, PERRLA, EOMI, Normocephalic Oral: Moist Mucosa Neck: Supple, No JVD Lungs: Clear to auscultation, Normal air movement, No rhonchi, No wheeze, No rales Cardiovascular: Regular rate, Regular Rhythm, Normal S1, Normal S2, No murmurs Abdomen: Soft, Non Tender, Non-Distended, No Hepato-splenomegaly Extremities: No edema, Capillary Refill Less than 3 Seconds Skin: No rashes, No breakdown, - - Left foot wrapped in philip bandage Neurological: Neuro grossly intact, Sensory exam intact to light touch and pain at the knees bilaterally Psych/Mental Status: Normal Affect, Appropriate Plan is for discharge today to SNF as above. Of note, patient also complained of some blood in his stool but stool for occult blood was negative. He was referred to general surgery for colonoscopy as needed on outpatient basis. - Physical Exam Vitals/I&O's: Vital Signs Temp Pulse Resp BP Pulse Ox 97.8 F 55 L 16 122/77 H 96 11/27/19 02:18 11/27/19 02:21 11/27/19 02:18 11/27/19 02:18 11/27/19 02:18 Oxygen Delivery Method Room Air Weight: 171 lb 1.259 oz Body Mass Index (BMI) 22.6 Finger Stick Blood Glucose 89 Intake and Output for Last 24 Hours 11/25/19 11/26/19 11/27/19 23:59 23:59 23:59 Intake Total 3772.50 / 4372.50 3844.00 / 4094.00 1313.25 / 1313.25 Output Total 2950 / 3300 2125 / 3725 3275 / 3275 Balance 822.50 / 1072.50 1719.00 / 369.00 -1961.75 / -1961.75 Microbiology Past 72 Hours 11/24/19 12:53 Other - Other Gram Stain - Final 11/24/19 12:53 Other - Other Wound Culture - Final Proteus mirabilis 11/24/19 12:53 Other - Other Anaerobic Culture - Preliminary No growth in 48 hours. 11/23/19 18:52 Blood Culture (Wb) - Left Forearm Blood Culture - Preliminary No growth in 48 hours. 11/24/19 12:50 Other - Other Gram Stain - Final 11/24/19 12:50 Other - Other Wound Culture - Preliminary Streptococcus group A Alpha Hemolytic Streptococcus 11/23/19 22:00 Wound - Left Foot Gram Stain - Final 11/23/19 22:00 Wound - Left Foot Wound Culture - Final Proteus mirabilis Streptococcus group A 11/23/19 22:00 Wound - Left Foot Anaerobic Culture - Preliminary 11/23/19 18:55 Blood Culture (Wb) - Right Hand Blood Culture - Preliminary No growth in 48 hours. Laboratory Results 11/27/19 07:02: WBC 7.9, RBC 4.60, Hgb 11.3 L, Hct 37.0 L, MCV 80.4, MCH 24.6 L, MCHC 30.5 L, RDW Std Deviation 44.8 H, RDW Coeff of Jesus 15.6 H, Plt Count 402, MPV 11.1, Immature Gran % (Auto) 0.100, Neut % (Auto) 60.4, Lymph % (Auto) 23.0, [place]key % (Auto) 8.4, Eos % (Auto) 6.7 H, Baso % (Auto) 1.4 H, Absolute Neuts (auto) 4.8, Absolute Lymphs (auto) 1.83, Nucleated RBC % 0 Current Medications Acetaminophen (Tylenol) 650 mg PO Q6H PRN PRN PRN Reason: Pain Score 1-10/Temp > 100.7 F Last Admin: 11/24/19 18:41 Dose: 650 mg Documented by: Atorvastatin Calcium (Lipitor) 40 mg PO QHS [facility] Last Admin: 11/26/19 21:13 Dose: 40 mg Documented by: Diphenhydramine HCl (Benadryl) 25 mg IV Q6H PRN PRN PRN Reason: ALLERGIES Last Admin: 11/24/19 02:07 Dose: 25 mg Documented by: Sodium Chloride () 1,000 mls @ 75 mls/hr IV .[id number] [facility] Last Admin: 11/27/19 04:13 Dose: 75 mls/hr Documented by: Sodium Chloride () 250 mls @ 15 mls/hr IV .[id number] PRN PRN Reason: Saline Flush Sodium Chloride () 250 mls @ 15 mls/hr IV .[id number] PRN PRN Reason: Additional IVPB Infusion Ampicillin Sodium/Sulbactam (Sodium 3 gm/ Sodium Chloride) 112 mls @ 150 mls/hr IV Q8 [facility] Last Infusion: 11/27/19 05:54 Dose: Infused Documented by: Ibuprofen (Motrin) 400 mg PO Q6H PRN PRN PRN Reason: temp greater than 100.4 F Last Admin: 11/26/19 21:12 Dose: 400 mg Documented by: Levothyroxine Sodium (Synthroid) 75 mcg PO DAILY@0600 [facility] Last Admin: 11/26/19 05:50 Dose: 75 mcg Documented by: Melatonin (Melatonin) 3 mg PO QHS PRN PRN PRN Reason: INSOMNIA Nutritional Formula ([facility] - [place] Flavor) [facility] Last Admin: 11/26/19 16:44 Dose: 1 packet Documented by: Ondansetron HCl (Zofran) 4 mg IV Q8H PRN PRN PRN Reason: NAUSEA/VOMITING Oxycodone HCl (Oxyir) 5 mg PO Q4H PRN PRN PRN Reason: Pain Score 4-5/10 Oxycodone HCl (Oxyir) 10 mg PO Q4H PRN PRN PRN Reason: Pain Score 6-10/10 Last Admin: 11/26/19 20:08 Dose: 10 mg Documented by: Senna/Docusate Sodium (Senokot-S, Yudy-Colace) 2 tablet PO BID PRN PRN PRN Reason: Constipation Sodium Chloride () 10 - 40 ml IV UD PRN PRN Reason: SALINE FLUSH Last Admin: 11/23/19 23:37 Dose: 10 ml Documented by: Trimethoprim/Sulfamethox[facility] ([facility]s) [facility] Last Admin: 11/26/19 16:44 Dose: 1 tablet Documented by: Discharge Diet: 1800 Calorie Control Diet Weight Bearing Status: No weight bearing Call your doctor if your incision/area has: Continuous Slow Oozing, Increased Pain/ Swelling, Increased Redness, Foul Smelling Discharge, Swelling at the incision site Call your doctor if you observe: Fever of 101 or Higher, Coldness, Increased Pain Home Medications: Medications to take at Discharge Levothyroxine [Synthroid] 75 mcg PO DAILY 09/01/13 Duloxetine HCl 30 mg PO DAILY 07/07/19 Rosuvastatin Calcium [Crestor] 20 mg PO DAILY 07/07/19 Metoprolol Tartrate 25 mg PO BID 11/23/19 Cefadroxil Hydrate [Duricef] 1,000 mg PO BID 42 Days #168 cap 11/27/19 Smz/Tmp Ds [Bactrim Ds] 1 tab PO BIDCM 42 Days #84 tab 11/27/19 Following Prescriptions Were Given to Patient: Smz/Tmp Ds [Bactrim Ds] 1 tab PO BIDCM 42 Days #84 tab Prescription Printed Cefadroxil Hydrate [Duricef] 1,000 mg PO BID 42 Days #168 cap Prescription Printed Primary Care Physician: Clement Buckner MD [Primary Care Provider] - Please follow up with your Primary Care Physician in: 1-2 weeks Please Follow Up With: Jeremiah Roberts DPM When: 1-2 weeks Please Follow Up With: Rony Reza MD When: for blood in stool. for outpatient colonoscopy as needed Disposition: [facility] facility Minutes spent on discharge:: 40 Patient Condition:: Stable Medical Necessity - Tobacco Use Smoking Status: Current every day smoker Tobacco Use: Cigarettes Meaningful Use Info Meaningful Use Diagnoses (Choose all that apply): None applicable Inpatient E&M: 87959 [facility]
--- NOTE | 2019-11-27 10:02 | DCINST_ITS ---
Weight Bearing Status: No weight bearing - Strict nonweightbearing on left foot Keep extremity elevated above heart level: Left Leg - Keep left foot elevated as much as possible Call your doctor if your incision/area has: Sudden Increased Bleeding, Foul Smelling Discharge Call your doctor if you observe: Fever of 101 or Higher, Shortness of breath, Chest pain, Calf discomfort, Uncontrolled pain Cleanse incision/area with: - - Wound care left foot: Cleanse w/ sterile normal saline solution. Painted skin edges with betadine solution. Pack site central open wound site with 1/4 inch Iodoform gauze packing; apply overlying gauze, kerlix and philip dressing - change daily. Allergies/Adverse Reactions: Allergies colesevelam HCl [From WelChol] Allergy (Verified 11/23/19 18:45) Rash dicyclomine Allergy (Verified 11/23/19 18:45) Rash divalproex sodium [From Depakote] Allergy (Verified 11/23/19 18:45) Unknown rofecoxib [From Vioxx] Allergy (Verified 11/23/19 18:45) Rash vancomycin Adverse Reaction (Verified 11/24/19 01:51) Rash Medications to take at Discharge Levothyroxine [Synthroid] 75 mcg PO DAILY 09/01/13 Duloxetine HCl 30 mg PO DAILY 07/07/19 Rosuvastatin Calcium [Crestor] 20 mg PO DAILY 07/07/19 Metoprolol Tartrate 25 mg PO BID 11/23/19 Cefadroxil Hydrate [Duricef] 1,000 mg PO BID 42 Days #168 cap 11/27/19 Smz/Tmp Ds [Bactrim Ds] 1 tab PO BIDCM 42 Days #84 tab 11/27/19 The following prescriptions were given: Smz/Tmp Ds [Bactrim Ds] 1 tab PO BIDCM 42 Days #84 tab Prescription Printed Cefadroxil Hydrate [Duricef] 1,000 mg PO BID 42 Days #168 cap Prescription Printed Primary Care Physician: Clement Buckner MD [Primary Care Provider] - Please follow up with your Primary Care Physician in: 1-2 weeks Test Results: Test results from this visit will be discussed in further detail at your follow- up appointment, if applicable. Please Follow Up With: Jeremiah Roberts DPM When: 1-2 weeks Please Follow Up With: Rony Reza MD When: for blood in stool. for outpatient colonoscopy as needed
--- NOTE | 2019-11-27 10:05 | PN_ITS ---
Patient Problems: Active and Suspected Problems Cellulitis of lower extremity (Acute) Subjective: Patient relates he had some blood in stool, temp overnight was 99.5F, no fever this morning. No complaints this morning. No chills, nausea or vomiting. No pain to the left foot. - Physical Exam Vitals/I&O's: Vital Signs Temp Pulse Resp BP Pulse Ox 97.8 F 55 L 16 122/77 H 96 11/27/19 02:18 11/27/19 02:21 11/27/19 02:18 11/27/19 02:18 11/27/19 02:18 Oxygen Delivery Method Room Air Weight: 77.6 kg Body Mass Index (BMI) 22.6 Finger Stick Blood Glucose 89 Intake and Output for Last 24 Hours 11/25/19 11/26/19 11/27/19 23:59 23:59 23:59 Intake Total 3772.50 / 4372.50 3844.00 / 4094.00 1313.25 / 1313.25 Output Total 2950 / 3300 2125 / 3725 3275 / 3275 Balance 822.50 / 1072.50 1719.00 / 369.00 -1961.75 / -1960.75 General: Alert, Oriented x3, Cooperative, No apparent distress Extremities: Capillary Refill Less than 3 Seconds - to left foot stump site, No Calf Tenderness, - - s/p debridement/revision TMA left foot w/ central wound/open site from surgery to allow for any drainage - tissues healthy and viable, sutures intact, no dehiscence, no purulence, no streaking, no cellulitis, no crepitus, no visible abscess - there is edema to the foot/ankle which is much improved; no evidence of ischemia to the foot, tissues viable appearing. Musculoskeletal: No Tenderness to Palpation of Joints or Extremities - left foot or ankle Psych/Mental Status: Appropriate, Alert and oriented to time, place, person, mood and affect Microbiology Past 72 Hours 11/27/19 09:20 Stool Stool Occult Blood (JORDY) - Final 11/24/19 12:53 Other - Other Gram Stain - Final 11/24/19 12:53 Other - Other Wound Culture - Final Proteus mirabilis 11/24/19 12:53 Other - Other Anaerobic Culture - Preliminary No growth in 48 hours. 11/23/19 18:52 Blood Culture (Wb) - Left Forearm Blood Culture - Preliminary No growth in 48 hours. 11/24/19 12:50 Other - Other Gram Stain - Final 11/24/19 12:50 Other - Other Wound Culture - Preliminary Streptococcus group A Alpha Hemolytic Streptococcus 11/23/19 22:00 Wound - Left Foot Gram Stain - Final 11/23/19 22:00 Wound - Left Foot Wound Culture - Final Proteus mirabilis Streptococcus group A 11/23/19 22:00 Wound - Left Foot Anaerobic Culture - Preliminary 11/23/19 18:55 Blood Culture (Wb) - Right Hand Blood Culture - Preliminary No growth in 48 hours. Laboratory Results 11/27/19 07:02: WBC 7.9, RBC 4.60, Hgb 11.3 L, Hct 37.0 L, MCV 80.4, MCH 24.6 L, MCHC 30.5 L, RDW Std Deviation 44.8 H, RDW Coeff of Jesus 15.6 H, Plt Count 402, MPV 11.1, Immature Gran % (Auto) 0.100, Neut % (Auto) 60.4, Lymph % (Auto) 23.0, [place] % (Auto) 8.4, Eos % (Auto) 6.7 H, Baso % (Auto) 1.4 H, Absolute Neuts (auto) 4.8, Absolute Lymphs (auto) 1.83, Nucleated RBC % 0 Current Medications Acetaminophen (Tylenol) 650 mg PO Q6H PRN PRN PRN Reason: Pain Score 1-10/Temp > 100.7 F Last Admin: 11/24/19 18:41 Dose: 650 mg Documented by: Atorvastatin Calcium (Lipitor) 40 mg PO QHS [facility] Last Admin: 11/26/19 21:13 Dose: 40 mg Documented by: Diphenhydramine HCl (Benadryl) 25 mg IV Q6H PRN PRN PRN Reason: ALLERGIES Last Admin: 11/24/19 02:07 Dose: 25 mg Documented by: Sodium Chloride () 1,000 mls @ 75 mls/hr IV .[id number] [facility] Last Admin: 11/27/19 04:13 Dose: 75 mls/hr Documented by: Sodium Chloride () 250 mls @ 15 mls/hr IV .[id number] PRN PRN Reason: Saline Flush Sodium Chloride () 250 mls @ 15 mls/hr IV .[id number] PRN PRN Reason: Additional IVPB Infusion Ampicillin Sodium/Sulbactam (Sodium 3 gm/ Sodium Chloride) 112 mls @ 150 mls/hr IV Q8 [facility] Last Infusion: 11/27/19 05:54 Dose: Infused Documented by: Ibuprofen (Motrin) 400 mg PO Q6H PRN PRN PRN Reason: temp greater than 100.4 F Last Admin: 11/26/19 21:12 Dose: 400 mg Documented by: Levothyroxine Sodium (Synthroid) 75 mcg PO DAILY@0600 [facility] Last Admin: 11/26/19 05:50 Dose: 75 mcg Documented by: Melatonin (Melatonin) 3 mg PO QHS PRN PRN PRN Reason: INSOMNIA Nutritional Formula (Robert - [place] Flavor) [facility] Last Admin: 11/26/19 16:44 Dose: 1 packet Documented by: Ondansetron HCl (Zofran) 4 mg IV Q8H PRN PRN PRN Reason: NAUSEA/VOMITING Oxycodone HCl (Oxyir) 5 mg PO Q4H PRN PRN PRN Reason: Pain Score 4-5/10 Oxycodone HCl (Oxyir) 10 mg PO Q4H PRN PRN PRN Reason: Pain Score 6-10/10 Last Admin: 11/26/19 20:08 Dose: 10 mg Documented by: Senna/Docusate Sodium (Senokot-S, Yudy-Colace) 2 tablet PO BID PRN PRN PRN Reason: Constipation Sodium Chloride () 10 - 40 ml IV UD PRN PRN Reason: SALINE FLUSH Last Admin: 11/23/19 23:37 Dose: 10 ml Documented by: Trimethoprim/Sulfamethoxazole (Bactrim Ds) [facility] Last Admin: 11/26/19 16:44 Dose: 1 tablet Documented by: Medical Necessity - Tobacco Use Smoking Status: Current every day smoker Tobacco Use: Cigarettes Assessment/Plan All Active Problems Redness of the left leg and foot (Acute) Sepsis (Acute) Cellulitis of lower extremity (Acute) Osteomyelitis and abscess w/ cellulitis left foot s/p debridement on 11/24/2019 s/p TMA Diabetes with neuropathy Tobacco Dependence Left foot examined and doing well at this time. Reviewed cultures, clearance frag with proteus - ID/Dr. Almendarez following w/ plan for d/c on oral antibiotics. Dressing changes left foot: Cleanse w/ sterile normal saline solution. Painted skin edges with betadine solution. Pack site central open wound site with 1/4 inch Iodoform gauze packing; apply overlying gauze, kerlix and philip dressing - change daily. No weightbearing left foot. Keep foot elevated. Blood in stool: stool sample has been ordered, obtained and pending per medicine team. Reviewed importance of tobacco cessation. DVT prophylaxis: SCDs. Patient is homeless and will need placement for recovery- plan is d/c to nursing facility this weekend. Patient to follow up with me as outpatient.
[2019-11-27] MEDS: Smz/Tmp Ds Tablet 1 TABLET PO (10:21)
--- NOTE | 2019-11-27 11:41 | NURSING ---
lg post op shoe provided
[2019-11-29 08:00] LABS: HIV-1 RNA by PCR, Quant. < 20 copies/mL (.)
== END 2019-11-27 11:20 | disposition skilled nursing facility (03) | DRG 854 ==
LOC: ED 21:39 → MS3 22:35
PROVIDERS: Family Medicine; Internal Medicine Infectious Disease; Podiatrist; Admitting Provider Hospitalist; Emergency Provider Emergency Medicine; PCP Family Medicine; Visit Provider Student in an Organized Health Care Education/Training Program
PROC: 0Y6N0Z9 Detachment at Left Foot, Partial 1st Ray, Open Approach (ICD-10-PCS; principal; 2019-11-24 11:45)
DX: A41.9 Sepsis, unspecified organism (principal); L03.116 Cellulitis of left lower limb; M86.8X7 Other osteomyelitis, ankle and foot; E11.69 Type 2 diabetes mellitus with other specified complication; E11.621 Type 2 diabetes mellitus with foot ulcer; L97.524 Non-pressure chronic ulcer of other part of left foot with necrosis of bone; R65.20 Severe sepsis without septic shock; E11.40 Type 2 diabetes mellitus with diabetic neuropathy, unspecified; E03.9 Hypothyroidism, unspecified; E78.5 Hyperlipidemia, unspecified; K21.9 Gastro-esophageal reflux disease without esophagitis; I25.10 Atherosclerotic heart disease of native coronary artery without angina pectoris; I10 Essential (primary) hypertension; F17.210 Nicotine dependence, cigarettes, uncomplicated; E87.6 Hypokalemia; F32.9 Major depressive disorder, single episode, unspecified; Z91.19 Patient's noncompliance with other medical treatment and regimen; Z59.0 Homelessness; Z86.718 Personal history of other venous thrombosis and embolism
CPT/HCPCS: 36415; 71045; 73630; 73720; 80048; 82274; 82962; 83036; 83605; 85025; 87040; 87070; 87075; 87077; 87102; 87186; 87205; 87206; 87536; 87635; 87640; 88304; 88305; 88307; 88311; 88312; 93005; 93971; 97110; 97162; 97166; 97530; 97802; 99285; 99406; A9575; C9803; J2020; J7030; J7040; A4216; J0295; J2405; U0003

== ENCOUNTER 2020-04-11 02:43 | Inpatient (IN) | payer MEDICARE, MEDICAID, SELFPAY ==
[2019-11-24 11:11] VITALS: BMI 22.6
[2020-04-11] VITALS (21 sets, daily range): BP systolic 97–155; BP diastolic 36–84; PULSE 63–100; RESP 15–20; TEMP 36.3–39; O2SAT 94–100; BMI 25.1; BMI 23.8; BMI 23.9
--- NOTE | 2020-04-11 02:49 | ED.VIS.GEN ---
History of Present Illness Chief Complaint: Wound Check Informant: Patient Narrative: 64-year-old male with history of left foot cellulitis and osteomyelitis presenting with left foot swelling and left distal leg swelling. He states he noticed an ulcer yesterday on the plantar surface of his foot. Today it is draining. He states his left foot and ankle are more erythematous than usual. Patient has not had any fever, chills. He states he has some mild nausea which improved after he had a bowel movement. Patient states he has seen Dr. Roberts past but has not seen him recently. Patient states that he currently lives in his van. - Past Medical History (1) Benign essential hypertension Status: Chronic (2) CAD (coronary artery disease) Status: Chronic (3) Deep venous thrombosis of upper extremity Status: Chronic (4) History of gastroesophageal reflux (GERD) Status: Chronic (5) History of hyperlipidemia Status: Chronic Past Medical History - Allergies and Home Meds Allergies/Adverse Reactions: Allergies colesevelam HCl [From WelChol] Allergy (Verified 04/11/20 02:48) Rash dicyclomine Allergy (Verified 04/11/20 02:48) Rash divalproex sodium [From Depakote] Allergy (Verified 04/11/20 02:48) Unknown rofecoxib [From Vioxx] Allergy (Verified 04/11/20 02:48) Rash vancomycin Adverse Reaction (Verified 04/11/20 02:48) Rash Primary Care Physician: Clement Buckner MD [Primary Care Provider] - Prior records reviewed: Yes Past Medical History: - - Reviewed in problem list Surgical History: coronary bypass surgery, - - Coronary artery stent placement April 2017, amputation of the left great toe Smoking Status: Current every day smoker Alcohol: None Drugs: None - Family History Maternal Family History: Reports: Diabetes Paternal Family History: Reports: Cancer - Lung cancer Review of Systems General: Denies: Chills, Fever, Malaise ENT: Denies: Rhinorrhea, Sore throat Cardiovascular: Denies: Chest pain, Palpitations Respiratory: Denies: Dyspnea, Cough, Dyspnea on exertion Gastrointestinal: Reports: Nausea. Denies: Abdominal pain, Vomiting Genitourinary: Denies: Dysuria, Hematuria, Frequency Skin: Reports: Rash - Left ankle and tib-fib, Wounds - Left ankle and tib-fib Neurological: Denies: Headache, Weakness, Numbness Psych: Denies: Depression, Anxiety Physical Exam Vital Signs/Narrative: Vital Signs Temp Resp BP 04/11/20 02:44 98.8 F 18 155/84 H Inital Vital Signs reviewed: Yes General: Well nourished, No Acute Distress Head: Normocephalic, Atraumatic Eyes: Perrl, EOMI ENT: Moist mucous membranes, No rhinorrhea Cardiovascular: Regular rate, Regular rhythm Respiratory: No distress, CTA bilaterally Extremities: - - Circumferential erythema and swelling of the partially amputated left foot and left distal tib-fib region. This area is nontender to palpation. There is no crepitance. On plantar surface of left partially amputated foot there is a draining ulcer. Skin: - - As described under extremities Neurological: Alert, Oriented x3 Psychological: Normal affect, Normal Mood Diagnostic/Tx/Re-eval Clinical Impression(s) from Imaging Studies Ankle X-Ray 04/11/20 03:03 IMPRESSION: Interval, Gas in the soft tissues probable abscess infection visualized erosion of the distal stump seen on the lateral view suspicious for osteomyelitis. Status post amputation of the foot through the tarsals. Marked soft tissue edema about the ankle and foot. Electronically Signed: Ashley Paul MD at 3:56 EST Tel , Service support , ADDENDUM: 04/11/20 0409 IMPRESSION: Interval, Gas in the soft tissues probable abscess infection visualized erosion of the distal stump seen on the lateral view suspicious for osteomyelitis. Status post amputation of the foot through the tarsals. Marked soft tissue edema about the ankle and foot. N.B. : The above information has been verbally conveyed by Ashley Paul MD to Yosi Holt DO, on 04/11/2020 04:02:52 (ET). Electronically Signed: Ashley Paul MD at 3:56 EST Tel , Service support , Tibia/Fibula X-Ray 04/11/20 03:03 IMPRESSION: Partial visualization of amputation of distal foot focal soft tissue edema.. No visualized fracture. Surgical clips in the medial aspect of the lower extremity compatible with vein harvest. Diffuse soft tissue edema. Electronically Signed: Ashley Paul MD at 4:09 EST Tel , Service support , Laboratory Data 04/11/20 04/11/20 04/11/20 02:58 02:58 02:58 WBC 21.9 H RBC 5.45 Hgb 14.0 Hct 44.0 MCV 80.7 MCH 25.7 L MCHC 31.8 L RDW Std Deviation 43.1 RDW Coeff of Jesus 14.9 H Plt Count 290 MPV 10.7 Immature Gran % (Auto) 0.600 Neut % (Auto) 91.0 H Lymph % (Auto) 2.8 L Ralls % (Auto) 5.4 Eos % (Auto) 0.0 Baso % (Auto) 0.2 Absolute Neuts (auto) 19.9 H Absolute Lymphs (auto) 0.62 L Nucleated RBC % 0 Differential Comment SCANNED PT 14.2 INR 1.2 Sodium 130 L Potassium 3.1 L Chloride 97 L Carbon Dioxide 24.0 Anion Gap 9 BUN 9 Creatinine 1.23 Estim Creat Clear Calc 67.67 Est GFR (MDRD) Af Amer 76 Est GFR (MDRD) Non-Af 63 BUN/Creatinine Ratio 7.3 L Glucose 171 H Lactic Acid Calcium 8.7 Total Bilirubin 0.90 AST 10 L ALT 17 Alkaline Phosphatase 168 H Total Protein 7.4 Albumin 2.8 L Globulin 4.6 H Albumin/Globulin Ratio 0.6 L Procalcitonin 04/11/20 04/11/20 02:58 02:58 WBC RBC Hgb Hct MCV MCH MCHC RDW Std Deviation RDW Coeff of Jesus Plt Count MPV Immature Gran % (Auto) Neut % (Auto) Lymph % (Auto) Ralls % (Auto) Eos % (Auto) Baso % (Auto) Absolute Neuts (auto) Absolute Lymphs (auto) Nucleated RBC % Differential Comment PT INR Sodium Potassium Chloride Carbon Dioxide Anion Gap BUN Creatinine Estim Creat Clear Calc Est GFR (MDRD) Af Amer Est GFR (MDRD) Non-Af BUN/Creatinine Ratio Glucose Lactic Acid 2.5 H* Calcium Total Bilirubin AST ALT Alkaline Phosphatase Total Protein Albumin Globulin Albumin/Globulin Ratio Procalcitonin 0.71 H - Medical Decision Making Patient seen and evaluated for left foot ulcer as well as swelling and erythema over the left foot and lower extremity. Initially vital signs were stable and he was afebrile. Lab work and imaging was ordered. Patient then subsequently developed a fever. He was given Tylenol. Blood cultures, procalcitonin, lactic acid, PT/INR were added. Patient found to have a leukocytosis 21 9. Lactic acid 2.5. Procalcitonin is elevated. Regulation studies are normal. His renal function is normal. His sodium and potassium are slightly decreased. X-ray of the left ankle and tib-fib as interpreted by myself show some small areas of gas formation as well as erosion of the distal stump. Patient was discussed with Dr. Torres who reviewed the films given there is some gas formation. She did feel that it was likely due to abscess more than necrotizing fasciitis. She states that she will come see the patient. Patient was admitted to medicine and they will get an MRI. Patient was given IV fluids as well as Zosyn in the ED. Patient is admitted in stable condition. Impression: 1. Left foot osteomyelitis 2. Sepsis ED Disposition - Plan for ED Patient: Referrals: Clement Buckner MD [Primary Care Provider] -
--- NOTE | 2020-04-11 03:03 | RAD_ITS ---
STUDY: X-RAY - LEFT TIBIA AND FIBULA REASON FOR EXAM: Male, 64 years old. REDNESS AND TO LOWER HALF OF LT TIB-FIB AND FOOT -- SWELLING ALSO AT LT ANKLE AND FOOT -- WITH WOUND ON PLANTAR SURFACE OF FOOT -- PATIENT STATES PUS DRAINS OUT OF WOUND TECHNIQUE: 4 view(s) of the tibia and fibula were obtained. COMPARISON: Left ankle x-ray April 11, 2020, left foot x-ray November 24, 2019 FINDINGS: There is demineralization of the tibia. There is demineralization of the fibula. Postoperative changes in the medial aspect of the left knee suggesting vein harvest. There is diffuse soft tissue edema. There is a prominent talar beak. There is degenerative change and partial visualization of amputation of the distal foot. There is no visualized fracture. There is a stable mildly inhomogeneous appearance of the distal fibula cortex. This resides degenerative change within the medial lateral compartments. RAD/Tibia & Fibula 2 Views IMPRESSION: Partial visualization of amputation of distal foot focal soft tissue edema.. No visualized fracture. Surgical clips in the medial aspect of the lower extremity compatible with vein harvest. Diffuse soft tissue edema. Electronically Signed: Ashley Paul MD at 4:09 EST Tel , Service support ,
--- NOTE | 2020-04-11 03:03 | RAD_ITS ---
We are attempting to reach an attending provider to discuss findings. An addendum with communication details will be sent when the communication is complete. STUDY: X-RAY - LEFT ANKLE REASON FOR EXAM: Male, 64 years old. REDNESS AND TO LOWER HALF OF LT TIB-FIB AND FOOT -- SWELLING ALSO AT LT ANKLE AND FOOT -- WITH WOUND ON PLANTAR SURFACE OF FOOT -- PATIENT STATES PUS DRAINS OUT OF WOUND TECHNIQUE: 3 view(s) of the ankle. COMPARISON: November 23, 2019 left foot x-ray FINDINGS: Normal visualized distal tibia and fibula. Normal medial and lateral malleoli. Normal tibiotalar articulation and ankle mortise. There is a large talar beak. There is a bulbous enlarged appearance of the stomach but the distal foot partially seen on the lateral view with gas formation within the soft tissues with probable drainage in the plantar surface. There is a suggestion of erosion of the base of lateral stump. RAD/Ankle min 3 Views IMPRESSION: Interval, Gas in the soft tissues probable abscess infection visualized erosion of the distal stump seen on the lateral view suspicious for osteomyelitis. Status post amputation of the foot through the tarsals. Marked soft tissue edema about the ankle and foot. Electronically Signed: Ashley Paul MD at 3:56 EST Tel , Service support ,
[2020-04-11 03:14] LABS: Absolute Lymphocyte Count 0.62 X10^3/uL (0.83-4.51); Absolute Neutrophil Count 19.9 X10^3/uL (2.0-7.7); Basophil# 0.05 X10^3/uL; Basophil% 0.2 % (0-1); Eosinophil# 0.01 X10^3/uL; Lymphocyte # 0.62 X10^3/ul (4.0); Lymphocyte % 2.8 % (19-41); Mean Corp Hgb Conc 31.8 g/dL (32-36); Mean Corpuscular Hgb 25.7 pg (27.0-32.0); Mean Corpuscular Volume 80.7 fL (80-94); Mean Platelet Vol. 10.7 fl (6.2-12.0); Monocyte# 1.18 X10^3/uL; Monocyte% 5.4 % (0-10); NRBC Flagged by Analyzer 0 % (0-5); Neutrophil # 19.88 X10^3/uL (2.7-7.7); POSITIVE MORPHOLOGY YES; Platelet Count 290 K/mm3 (150-450); RBC Distribution Width CV 14.9 % (11.6-14.6); RBC Distribution Width SD 43.1 fl (35.1-43.9); Red Blood Count 5.45 M/mm3 (4.6-6.2); White Blood Count 21.9 K/mm3 (4.4-11.0)
[2020-04-11] MEDS: Ondansetron 4 MG/2 ML Vial IV ×2 (03:14→22:43)
[2020-04-11 03:15] LABS: Differential Indicated SCAN CRITERIA MET
[2020-04-11 03:23] LABS: ALB/GLOB Ratio 0.6 RATIO (0.9-2.4); AST(SGOT) 10 U/L (15-37); Alanine Aminotransfer ALT/SGPT 17 U/L (16-61); Albumin, Serum 2.8 g/dL (3.2-5.0); Alkaline Phosphatase 168 U/L (45-117); Anion Gap 9 (5-15); BUN 9 mg/dL (7-18); BUN/Creat Ratio 7.3 RATIO (10-20); Calcium,Total 8.7 mg/dL (8.5-10.1); Chloride 97 mmol/L (98-107); Creatinine, Serum 1.23 mg/dL (0.70-1.30); EST Glomerular Filtration Rate 63 mL/min (>60); Est Glom Filt Rate - Afr Amer 76 mL/min (>60); Estimated Creatinine Clearance 67.67 ml/min; Globulin 4.6 g/dL (2.2-4.2); Glucose 171 mg/dL (74-106); Potassium 3.1 mmol/L (3.5-5.1); Protein, Total 7.4 g/dL (6.4-8.2); Sodium Level 130 mmol/L (136-145)
[2020-04-11 03:39] LABS: Differential Comment SCANNED
[2020-04-11 04:37] LABS: International Normalized Ratio 1.2; Prothrombin Time (Protime)PT. 14.2 SECONDS (11.7-14.9)
[2020-04-11 04:46] LABS: Lactic Acid 2.5 mmol/L (0.4-1.9)
[2020-04-11 04:53] LABS: Procalcitonin 0.71 ng/mL (0.00-0.09)
[2020-04-11] MEDS: Acetaminophen 500 MG Tablet 1000 MG PO (05:05)
--- NOTE | 2020-04-11 05:34 | HP.PCM_ITS ---
Problem List (1) Type 2 diabetes mellitus with foot ulcer Status: Acute (2) Osteomyelitis Status: Acute (3) Homelessness Status: Chronic (4) Hypothyroidism Status: Chronic (5) History of hyperlipidemia Status: Chronic (6) History of gastroesophageal reflux (GERD) Status: Chronic (7) CAD (coronary artery disease) Status: Chronic (8) Benign essential hypertension Status: Chronic History of Present Illness Date of Admission: 04/11/20 Chief Complaint: left foot wound The patient is a 64 year old male with a significant past medical history of left foot chronic wound infection who presents the emergency room with purulent drainage from the left foot which is already gone partial amputation. The patient has denied any chest pain, shortness of breath, nausea, vomiting or fevers or chills prior to arrival. The patient is homeless living in his van currently. He did develop a fever briefly here in the emergency room and a Covid antigen test was ordered and was negative. Podiatry was consulted by ER physician and decision to admit for possible wound debridement made. X-ray does show osteomyelitis. Past Medical History Past Medical History (Chronic Problems): Chronic Problems Type 2 diabetes mellitus with foot ulcer (Chronic) Homelessness (Chronic) Hypothyroidism (Chronic) History of hyperlipidemia (Chronic) History of gastroesophageal reflux (GERD) (Chronic) Deep venous thrombosis of upper extremity (Chronic) CAD (coronary artery disease) (Chronic) Benign essential hypertension (Chronic) Allergies colesevelam HCl [From WelChol] Allergy (Verified 04/11/20 02:48) Rash dicyclomine Allergy (Verified 04/11/20 02:48) Rash divalproex sodium [From Depakote] Allergy (Verified 04/11/20 02:48) Unknown rofecoxib [From Vioxx] Allergy (Verified 04/11/20 02:48) Rash vancomycin Adverse Reaction (Verified 04/11/20 02:48) Rash Home Medications: Ambulatory Orders Medication Instructions Recorded Levothyroxine [Synthroid] 75 mcg PO DAILY 09/01/13 Duloxetine HCl 30 mg PO DAILY 07/07/19 Rosuvastatin Calcium [Crestor] 20 mg PO DAILY 07/07/19 Metoprolol Tartrate 25 mg PO BID 11/23/19 Surgical History: coronary bypass surgery, - - Coronary artery stent placement April 2017, amputation of the left great toe Psychiatric History: No pertinent psych hx Smoking Status: Current every day smoker Alcohol: None Drugs: None - *Family History Maternal History Items: Diabetes Paternal History Items: Cancer - Lung cancer Review of Systems Constitutional: Denies: Chills, Fever, Weight Change HEENT: Denies: Head Aches, Sinus Congestion, Sinus Drainage Cardiovascular: Denies: Chest Pain, Palpitations Respiratory: Denies: Cough, Shortness of breath at rest, Sputum production Gastrointestinal: Denies: Abdominal Pain, Nausea, Vomiting Genitourinary: Denies: Dysuria Musculoskeletal: Reports: Foot Pain. Denies: Joint Pain, Joint Tenderness Skin: Reports: Wounds. Denies: Rash Neurological: Denies: Numbness, Tingling, Focal weakness Psychiatric: Denies: Anxiety, Depression, Homicidal Ideations, Suicidal Ideations Hematologic/ Lymphatic: Denies: Easy Bruising, Easy Bleeding VTE Information - Inpt Only VTE Present on Admission: No VTE Mechan Device Prophylaxis: None VTE Pharm Prophylaxis ordered?: Yes - Physical Exam Vitals/I&O's: Vital Signs Temp Pulse Resp BP Pulse Ox 101 F H 87 18 111/54 L 95 04/11/20 05:22 04/11/20 05:22 04/11/20 05:22 04/11/20 05:22 04/11/20 05:22 Oxygen Delivery Method Room Air Weight: 190 lb 7.67 oz Body Mass Index (BMI) 25.1 Finger Stick Blood Glucose 89 Intake and Output for Last 24 Hours 04/09/20 04/10/20 04/11/20 23:59 23:59 23:59 Intake Total 500 / 500 Balance 500 / 500 General: Alert, Oriented x3, Cooperative HEENT: Atraumatic, Normocephalic Neck: Supple Lungs: Clear to auscultation, Normal air movement Cardiovascular: Regular rate, Normal S1, Normal S2, No murmurs Abdomen: Bowel Sounds Present, Soft Extremities: No edema Skin: Ulcer/ Wound - left distal extremity with purulent discharge present Musculoskeletal: No Tenderness to Palpation of Joints or Extremities Neurological: Neuro grossly intact Psych/Mental Status: Normal Affect, Appropriate Microbiology Past 72 Hours 04/11/20 04:30 Mucosa - Nose SARS-CoV-2 Antigen (Rapid) - Final Laboratory Results 04/11/20 02:58: WBC 21.9 H, RBC 5.45, Hgb 14.0, Hct 44.0, MCV 80.7, MCH 25.7 L, MCHC 31.8 L, RDW Std Deviation 43.1, RDW Coeff of Jesus 14.9 H, Plt Count 290, MPV 10.7, Immature Gran % (Auto) 0.600, Neut % (Auto) 91.0 H, Lymph % (Auto) 2.8 L, [place] % (Auto) 5.4, Eos % (Auto) 0.0, Baso % (Auto) 0.2, Absolute Neuts (auto) 19.9 H, Absolute Lymphs (auto) 0.62 L, Nucleated RBC % 0, Differential Comment SCANNED 04/11/20 02:58: Sodium 130 L, Potassium 3.1 L, Chloride 97 L, Carbon Dioxide 24.0, Anion Gap 9, BUN 9, Creatinine 1.23, Estim Creat Clear Calc 67.67, Est GFR (MDRD) Af Amer 76, Est GFR (MDRD) Non-Af 63, BUN/Creatinine Ratio 7.3 L, Glucose 171 H, Calcium 8.7, Total Bilirubin 0.90, AST 10 L, ALT 17, Alkaline Phosphatase 168 H, Total Protein 7.4, Albumin 2.8 L, Globulin 4.6 H, Albumin/Globulin Ratio 0.6 L 04/11/20 02:58: PT 14.2, INR 1.2 04/11/20 02:58: Lactic Acid 2.5 H* 04/11/20 02:58: Procalcitonin 0.71 H Assessment/Plan All Active Problems Redness of the left leg and foot (Acute) Type 2 diabetes mellitus with foot ulcer (Acute) Sepsis (Acute) Osteomyelitis (Acute) Cellulitis of lower extremity (Acute) Chronic Problems Type 2 diabetes mellitus with foot ulcer (Chronic) Homelessness (Chronic) Hypothyroidism (Chronic) History of hyperlipidemia (Chronic) History of gastroesophageal reflux (GERD) (Chronic) Deep venous thrombosis of upper extremity (Chronic) CAD (coronary artery disease) (Chronic) Benign essential hypertension (Chronic) Plan 1. Left foot wound/osteomyelitis admit patient to medical surgical floor, make patient n.p.o., continue IV antibiotics of vancomycin, consult Dr. Torres for podiatry management of the wound. IV fluids normal saline at 100 cc/h repeat CBC BMP in the next day 2. Hypothyroidism?continue Synthroid 3. Hyperlipidemia?continue statin medication 4. Acid reflux disease?continue home medications of PPI if currently taking. 5. Hypertension?continue to monitor blood pressure here while admitted 6. DVT prophylaxis?low molecular weight heparin Inpatient E&M: 23668 Init Hosp L2
--- NOTE | 2020-04-11 07:28 | ART_ITS ---
Reason For Study: Ulcer Procedure A bilateral lower extremity continuous wave Doppler with analog waveform analysis,segmental pressures,and ankle brachial indexes without exercise. Left Segmental Pressures Left brachial= 97mmHg. Left posterior tibial artery = 153mmHg. Left dorsalis pedis artery = 118mmHg. The left dorsalis pedis waveforms are triphasic. The left posterior tibial artery waveforms are triphasic. Right Segmental Pressures Right brachial= 105mmHg. Right posterior tibial artery = 175mmHg. Right dorsalis pedis artery = 149mmHg. Right digit = 45 mmHg. The right dorsalis pedis waveforms are triphasic. The right posterior tibial artery waveforms are triphasic. Indices The right ankle brachial index by the dorsalis pedis is 1.42. The right ankle brachial index by the posterior tibial artery is 1.67. The right digital-brachial index is 0.43. The left ankle brachial index by the dorsalis pedis is 1.12. The left ankle brachial index by the posterior tibial artery is 1.46. Interpretation Summary Normal bilateral lower extremity ankle-brachial indices and normal bilateral posterior tibial and dorsalis pedis triphasic Doppler waveforms Abnormal right digital brachial index of 0.43, possibly temperature related or distal small vessel disease. Clinical correlation indicated. Left digital brachial indices not obtained Ordering Physician: Joselyn Torres Referring Physician: Greg Buckner Performed By: Glendy Hdz RVT
--- NOTE | 2020-04-11 07:29 | MRI_ITS ---
STUDY: MRI LEFT MIDFOOT WITH AND WITHOUT CONTRAST REASON FOR EXAM: Left foot ulcer, redness of left leg and sepsis, osteomyelitis. TECHNIQUE: Standardized fat and water weighted pulse sequences were obtained in all 3 orthogonal planes before and after intravenous administration of 16 mL of Dotarem. COMPARISON: Radiographs 04/11/2020, MRI images 11/24/2019. FINDINGS: There is amputation of the first digit at the tarsometatarsal articulation and second through fifth digits at the level of the metatarsal bases. There is mild bone edema of the medial cuneiform (inversion recovery sagittal image 11) with mild decrease corresponding T1 bone marrow signal (T1 sagittal image 11) and contrast enhancement (postcontrast T1 sagittal image 11) suggestive of osteomyelitis. There is bone edema of the fifth metatarsal stump (inversion recovery sagittal image 26) with corresponding decreased T1 bone marrow signal (T1 sagittal image 26) and contrast enhancement (postcontrast T1 sagittal images 26, 27) suggestive of osteomyelitis. There is no demonstrated osteomyelitis of the calcaneus. There is arthropathy of the talonavicular, calcaneocuboid and navicular-cuneiform articulations with decreased bone edema since the prior study, suggestive of neuropathic osteoarthropathy. There is a subchondral cyst in the distal tibia (inversion recovery sagittal images 17-19). There is atrophy with fat replacement of the intrinsic muscles of the midfoot/hindfoot consistent with peripheral neuropathy. There is a fluid collection in the subcutis adipose space at the plantar medial aspect of the foot (inversion recovery sagittal images 6, 7) measuring approximately 3.2 cm in length containing gas and mild contrast wall enhancement (T1 sagittal images 6, 7) consistent with a developing abscess. There is also an ill-defined lesion with peripheral contrast enhancement containing gas at the stump (postcontrast T1 sagittal images 8-20) suggestive of a phlegmon. There is edema in the subcutis adipose space with contrast enhancement consistent with cellulitis. MRI/Lower Ext No Joint W/WO Cont IMPRESSION: Signal alterations of the fifth metatarsal and medial cuneiform, suggestive of osteomyelitis. Soft tissue abscess/phlegmon at the amputation stump. Neuropathic osteoarthropathy. Atrophy of the intrinsic muscles of the foot consistent with peripheral neuropathy. Electronically Signed: Jose Francisco Chang MD at 11:13 EST Tel , Service support ,
--- NOTE | 2020-04-11 07:34 | PCM.CONS.GEN ---
Problem List (1) Redness of the left leg and foot Status: Acute (2) Type 2 diabetes mellitus with foot ulcer Status: Acute (3) Sepsis Status: Acute (4) Osteomyelitis Status: Acute (5) Homelessness Status: Chronic (6) Cellulitis of lower extremity Status: Acute Reason for Consult Date of Consultation: 04/11/20 Reason for Consultation: left foot ulcer. left foot abscess. hx left foot TMA History of Present Illness: The patient is a 64 year old M who presents to the emergency department for worsening left foot ulceration. Patient is homeless. Patient states that he first noticed the wound a couple days ago and has not done anything for it including any kind of dressings over the wound. Patient had multiple previous surgeries to the left foot. Most recent being in November [address] Roberts where a revisional transmetatarsal amputation was performed. Patient since healed around January his last visit to Dr. Roberts. Patient is diabetic. Patient was supposed to follow-up with antibiotics in order to obtain appropriate shoe gear given his amputation. Patient states that he has not done so. Patient relates chills and nausea. Patient denies any vomiting chest pain shortness of breath fevers. Patient is aware that he may need further surgery and/or amputation [] Past Medical History Past Medical History (Chronic Problems): Chronic Problems Type 2 diabetes mellitus with foot ulcer (Chronic) Homelessness (Chronic) Hypothyroidism (Chronic) History of hyperlipidemia (Chronic) History of gastroesophageal reflux (GERD) (Chronic) Deep venous thrombosis of upper extremity (Chronic) CAD (coronary artery disease) (Chronic) Benign essential hypertension (Chronic) Allergies colesevelam HCl [From WelChol] Allergy (Verified 04/11/20 02:48) Rash dicyclomine Allergy (Verified 04/11/20 02:48) Rash divalproex sodium [From Depakote] Allergy (Verified 04/11/20 02:48) Unknown rofecoxib [From Vioxx] Allergy (Verified 04/11/20 02:48) Rash vancomycin Adverse Reaction (Verified 04/11/20 02:48) Rash Home Medications: Ambulatory Orders Medication Instructions Recorded Levothyroxine [Synthroid] 75 mcg PO DAILY 09/01/13 Duloxetine HCl 30 mg PO DAILY 07/07/19 Rosuvastatin Calcium [Crestor] 20 mg PO DAILY 07/07/19 Metoprolol Tartrate 25 mg PO BID 11/23/19 Surgical History: coronary bypass surgery, - - Coronary artery stent placement April 2017, amputation of the left great toe Psychiatric History: No pertinent psych hx Smoking Status: Current every day smoker Tobacco Use: Cigarettes Alcohol: None Drugs: None - *Family History Maternal History Items: Diabetes Paternal History Items: Cancer - Lung cancer Review of Systems Constitutional: Reports: Chills, Fever Cardiovascular: Reports: Edema. Denies: Chest Pain Respiratory: Denies: Cough, Shortness of breath at rest Gastrointestinal: Denies: Vomiting Musculoskeletal: Reports: - - Left foot partial amputation. Denies: Foot Pain - Patient has no feeling in his feet due to neuropathy Skin: Reports: Wounds - Left foot Neurological: Reports: Numbness, Tingling Patient Problems: Active and Suspected Problems Redness of the left leg and foot (Acute) Type 2 diabetes mellitus with foot ulcer (Acute) Sepsis (Acute) Osteomyelitis (Acute) Cellulitis of lower extremity (Acute) - Physical Exam Vitals/I&O's: Vital Signs Temp Pulse Resp BP Pulse Ox 99.1 F 83 18 104/54 L 95 04/11/20 06:50 04/11/20 06:50 04/11/20 06:50 04/11/20 06:50 04/11/20 06:50 Oxygen Delivery Method Room Air Weight: 82.1 kg Body Mass Index (BMI) 23.8 Finger Stick Blood Glucose 89 Intake and Output for Last 24 Hours 04/09/20 04/10/20 04/11/20 23:59 23:59 23:59 Intake Total 550 / 550 Balance 550 / 550 General: Alert, Oriented x3 HEENT: Atraumatic Extremities: No clubbing, No cyanosis, Capillary Refill Less than 3 Seconds - On the right is normal. Left capillary refill time is sluggish at over 3 seconds., No Calf Tenderness, Diminished Peripheral Pulses - 1 out of 4 DP and PT on the right and 1 out of 4 DP on the left and nonpalpable PT on the left, Edema - Significant to the left lower extremity especially the foot Skin: Ulcer/ Wound - Left plantar foot ulceration. Mild malodor, purulent drainage, surrounding erythema and edema to lower extremity, probes to bone, no hair growth noted Musculoskeletal: Muscle Wasting, - - Left foot transmetatarsal amputation Neurological: - - Lack of epicritic sensation consistent with neuropathy. Psych/Mental Status: Normal Affect, Appropriate Microbiology Past 72 Hours 04/11/20 04:30 Mucosa - Nose SARS-CoV-2 Antigen (Rapid) - Final Laboratory Results 04/11/20 02:58: WBC 21.9 H, RBC 5.45, Hgb 14.0, Hct 44.0, MCV 80.7, MCH 25.7 L, MCHC 31.8 L, RDW Std Deviation 43.1, RDW Coeff of Jesus 14.9 H, Plt Count 290, MPV 10.7, Immature Gran % (Auto) 0.600, Neut % (Auto) 91.0 H, Lymph % (Auto) 2.8 L, Cla[place]orne % (Auto) 5.4, Eos % (Auto) 0.0, Baso % (Auto) 0.2, Absolute Neuts (auto) 19.9 H, Absolute Lymphs (auto) 0.62 L, Nucleated RBC % 0, Differential Comment SCANNED 04/11/20 02:58: Sodium 130 L, Potassium 3.1 L, Chloride 97 L, Carbon Dioxide 24.0, Anion Gap 9, BUN 9, Creatinine 1.23, Estim Creat Clear Calc 67.67, Est GFR (MDRD) Af Amer 76, Est GFR (MDRD) Non-Af 63, BUN/Creatinine Ratio 7.3 L, Glucose 171 H, Calcium 8.7, Total Bilirubin 0.90, AST 10 L, ALT 17, Alkaline Phosphatase 168 H, Total Protein 7.4, Albumin 2.8 L, Globulin 4.6 H, Albumin/Globulin Ratio 0.6 L 04/11/20 02:58: PT 14.2, INR 1.2 04/11/20 02:58: Lactic Acid 2.5 H* 04/11/20 02:58: Procalcitonin 0.71 H Current Medications Duloxetine HCl (Duloxetine Hcl 30 Mg Capsule) 30 mg PO DAILY [facility] Enoxaparin Sodium (Enoxaparin 40 Mg/0.4 Ml Syringe) 40 mg SC DAILY [facility] Sodium Chloride () 250 mls @ 15 mls/hr IV .[id number] PRN PRN Reason: Saline Flush Sodium Chloride () 250 mls @ 15 mls/hr IV .[id number] PRN PRN Reason: Additional IVPB Infusion Sodium Chloride () 1,000 mls @ 100 mls/hr IV .Q10H [facility] Piperacillin Sod/Tazobactam (Sod 3.375 gm/ Sodium Chloride) 50 mls @ 12.5 mls/hr IV Q8 [facility] Levothyroxine Sodium (Levothyroxine 75 Mcg Tablet) 75 mcg PO DAILY [facility] Metoprolol Tartrate (Metoprolol Tartrate 25 Mg Tablet) 25 mg PO BID [facility] Morphine Sulfate (Morphine 2 Mg/Ml Syringe) 2 mg IV Q3H PRN PRN PRN Reason: Pain Score 6-10 Non-Formulary Medication (Rosuvastatin Calcium) 20 mg PO DAILY [facility] Ondansetron HCl (Ondansetron 4 Mg/2 Ml Vial) 4 mg IV Q8H PRN PRN PRN Reason: NAUSEA/VOMITING Assessment/Plan All Active Problems Redness of the left leg and foot (Acute) Type 2 diabetes mellitus with foot ulcer (Acute) Sepsis (Acute) Osteomyelitis (Acute) Cellulitis of lower extremity (Acute) Left foot ulcer Left foot suspected osteomyelitis Left foot cellulitis Diabetes with neuropathy History of transmetatarsal amputation left foot Patient seen and examined bedside Patient noted to have wound to plantar aspect of left foot. Patient has had previous surgical amputation of the left foot with most recent being in November [address] Roberts. At that time patient followed up with Dr. Roberts in office with complete healing of surgical and wound sites. Patient at that time was instructed to follow-up with [employer] in order to obtain appropriate shoe gear. Patient states that he has not been able to do such. Patient is homeless Patient states that he noticed ulceration to the bottom of his left foot couple days ago. Patient states that he did not cover the ulceration with any kind of dressing Wound swab cultures were obtained bedside from express purulence and wound deficit Blood cultures pending White blood cell count of 21 X-ray reviewed showing likely osteomyelitis as well as concern for possible gas versus abscess at stump site. Upon exam it is noted that there is a deficit within the foot and communicating with the ulcer which is most likely source of air pocket noted on x-ray and not true gas infection MRI pending We will follow MRI results in order to the extent of infection both in soft tissue and bone Discussed with patient likely need to go to surgery in order to drain the abscess in his left foot. Discussed that pending the MRI results the to assess the extent of the infection that we might be talking further amputation including possibility of BKA. Patient is noted to already have a TMA that has undergone an additional revisional surgery resulting in very proximal TMA. If the extent of the infection extends into the hindfoot patient is aware that it became may be recommended. Discussed that a BKA can be more functional than just leaving the heel intact as it is a brace will deformity. Discussed that just leaving the heel is likely to result in further ulcerations and possible infections. Discussed possibly going to surgery later this afternoon for I&D with possible bone resection to at least drain the abscess. Discussed all risk benefits alternatives complications including but not limited to infection delayed healing nonhealing need for further surgery with the patient. No guarantees were given or implied. Patient agreed to proceed with the procedure. All questions answered. Patient tentatively added to surgery scheduled for 3:45 PM Patient is n.p.o. Continue IV antibiotics Continue wound care Thank you for the consult. Podiatry will continue to follow. Please contact if any questions or concerns.
[2020-04-11] MEDS: 0.9% Normal Saline 1,000 ML 100 ML IV (08:08)
[2020-04-11 08:10] LABS: Mucous, Urine 0 SEEN /hpf (<or=2+); Red Blood Cells-Urine 0 SEEN /hpf (0-5); White Blood Cells 0 SEEN /hpf (0-5)
[2020-04-11 08:15] LABS: Color, Urine Yellow (Yellow); Glucose, Dipstick 50 mg/dl (Normal); Ketone-Dipstick Negative (Negative); Leukocyte Esterase-Dipstick Negative /ul (Negative); Nitrite-Dipstick Negative (Negative); Occult Blood-Urine Negative /ul (Negative); Protein-Dipstick 15 mg/dl (Negative); Urine Bilirubin Dipstick Negative (Negative); Urine Clarity Clear (Clear); Urine Urobilinogen 1 mg/dl (Normal)
[2020-04-11 08:24] LABS: Bacteria RARE /hpf (None Seen); Squamous Epithelial Cells - UA 0-5 SEEN /hpf (0-5)
[2020-04-11 08:25] LABS: Erythrocyte Sedimentation Rate 86 mm/hr (0-20)
[2020-04-11 08:28] LABS: Reflex Lactate? Y
[2020-04-11 08:52] LABS: Hemoglobin A1c 5.8 % (3.8-5.6)
[2020-04-11 09:17] LABS: Lactic Acid 0.9 mmol/L (0.4-1.9)
--- NOTE | 2020-04-11 11:25 | CASEMGMT ---
ISHA SAUCEDO Face to Face with patient for initial transition planning/care coordination assessment. RN SHERYL introduced self and role at [facility]. Patient lying in bed, alert and oriented. Patient willing to participate in assessment and is able to answer all questions appropriately. Care providers, pharmacy, and demographics verified. Patient unsure of discharge plans at this time. Patient states he has no further needs or concerns at this time. CM to follow for discharge planning needs that may arise. PCP: [facility] Specialists: Melissa Thompson Pharmacy: [facility] Insurance: [employer] Prescription Benefit: yes Living Will/HPOA: none LNOK: daughter Living Arrangements: Patient states he is currently staying in his van and getting around independently. [place] Charanjit Maher made aware of living conditions Transportation: self DME/HHC: Patient denies any DME. Patient has previously been to [facility]. Disposition Plan: TBD by course of treatment and progress with therapy. Glendy LOCON, RN, CM
[2020-04-11] MEDS: Metoprolol Tartrate 25 MG Tablet PO ×2 (11:28→22:06)
[2020-04-11] MEDS: 0.9% Saline Lock 10 ML Syringe IV ×2 (11:28→22:43)
[2020-04-11] MEDS: DULoxetine Hcl 30 MG Capsule PO (11:31)
[2020-04-11 15:06] LABS: Bedside Glucose 105 mg/dL (70-110)
[2020-04-11] MEDS: Potassium Chloride 10mEq/100mL 10 MEQ/100 ML IV.SOLN. 100 MEQ IV BOLUS ×2 (15:15→16:15)
--- NOTE | 2020-04-11 15:30 | BON_PTH ---
PATIENT: RK MCCLURE LOC: MS3 U#:[id number] AGE/SX: 64/M ROOM: OR315 RE04/11/[address]: Dr. Aram Figueredo MD : 1955 BED: 1 DIS: 04/19/2020 SPEC #: [id number] RECD: 04/12/20 07:41 STATUS: JENNY REQ #: [id number] JUAN ALBERTO: 04/11/20 15:[address]: Joselyn Torres DEPT: SURGICAL PATHOLOGY RECD BY: Marti Garcia ENTERED: 04/12/20 11:25 SP TYPE: Bone OTHR DR: MD Dr. Joselyn Kramer, DPM MD Dr. Agustin Conway MD Dr. Robert Leininger, MD Tissues: A - Bone of foot, NOS B - Bone of foot, NOS Procedures: Decalcification bone/plaque Surgery Specimen Level IV Comments: @ Ordering doctor for DEC edited from to @ by MAYA at 04/12/20 154 @ Ordering doctor for SUIII edited from to DR.KKUBIA Bassett by MAYA at 04/12/20 154 @ Ordering doctor for SUIV edited from to @ by MAYA at 04/12/20 154 @ Submitting doctor edited from to DR.KKUBIA Bassett by RGOOD at 04/12/20 1547 HEADER OPERATION: Incision and drainage of abscess, bone resection, bone debridement PRE-OP DIAGNOSIS: Redness of left leg and foot; osteomyelitis; cellulitis TISSUE SUBMITTED: A ? Left fifth metatarsal bone, B ? Left medial cuneiform bone MICROSCOPIC DIAGNOSIS A. Left fifth metatarsal bone, excision: Reparative and reactive change. B. Left medial cuneiform bone, excision: Acute osteomyelitis. AM:ava 04/17/2020 MICROSCOPIC DESCRIPTION Slides are reviewed. GROSS DESCRIPTION A - Received in fixative is one container labeled with the patient's name and designated left fifth metatarsal bone. The specimen consists of a piece of bone measuring 3.5 x 1.5 x 1 cm. Sections are submitted in two cassettes after decalcification. B - Received in fixative is one container labeled with the patient's name and designated left medial cuneiform bone. The specimen consists of two pieces of bone measuring 4 x 1.5 x 0.5 cm and 2 x 2 x 0.7 cm. Fire Chief sections are submitted in two cassettes after decalcification. / UYEN:ava 04/12/20 TC:2 CPT: 47025 x2, 74665 x2
--- NOTE | 2020-04-11 15:36 | CASEMGMT ---
Social Work Note SW aware pt is currently homeless. Pt may also need SNF placement pending course of treatment. SW to follow up with pt tomorrow regarding housing resources and possible SNF placement. Glendy Maher SAUSAGE MAKER, MARKETING PROPOSAL SPECIALIST
--- NOTE | 2020-04-11 16:06 | PCM.OPRPT ---
Problem List (1) Redness of the left leg and foot Status: Acute (2) Type 2 diabetes mellitus with foot ulcer Status: Acute (3) Sepsis Status: Acute (4) Osteomyelitis Status: Acute (5) Homelessness Status: Chronic (6) Cellulitis of lower extremity Status: Acute Report of Operation Date of Procedure: 04/11/20 Pre-Operative Diagnosis: abscess left foot. osteomyelitis left foot. ulcer left foot. TMA left foot Post-Operative Diagnosis: same Surgery/Procedure Performed:: incision and drainage left foot with bone biopsy and debridement with revision of amputation Description of Surgical Findings:: 20cc 0.5% marcaine plain ankle tourniquet 150mmHg purulent drainage from soft tissue and bone 5th metatarsal Materials 2-0 vicryl and 3-0 nylon medicine technologist: Joselyn Torres - surgeon, Pastor Snow PGY1 assist Type of Anesthesia:: Local MAC Specimen's removed: medial cuneiform bone. 5th metatarsal bone. swab deep tissue post lavage Estimated Blood Loss (mL): <50 Description of Procedure: Patient is a 64-year-old male who presents to the hospital with complaints of left foot ulceration with infection. On exam patient was noted to have ulceration that probes to bone with purulent drainage expressed. Patient had a white cell count of 21 and elevated lactate and patient was admitted to the hospital for further work-up. An MRI was obtained which showed abscess with suspected osteomyelitis of the medial cuneiform and fifth metatarsal base. Should be noted the patient had previous amputation of his left foot with revisional surgeries as well with the last one in November 2019. Discussed with the patient that due to the severity of his infection that further bone resection and surgery was required in order to remove the infection. Patient had all risk benefits alternatives the complications including but not limited to infection, delayed healing, nonhealing, need for further surgery or amputation was discussed with the patient. No guarantees were given or implied. Patient agreed to proceed with the procedure. All questions were answered. Patient was seen in the preoperative holding her with chart which was reviewed and patient was examined and all questions were answered to patient satisfaction. Patient then transferred to the OR and placed on the OR table in supine position. After administration of IV line IV sedation additional 20 cc of half percent Marcaine plain was injected in ankle block type fashion. A well-padded ankle tourniquet was applied but not inflated at this time. The operative foot and ankle were then prepped and draped in the usual sterile fashion. The operative limb was elevated and exsanguinated and the ankle tourniquet was inflated at 250mmHg. It was then lowered on sterile field. A skin scribe was then utilized in order to draw out the incision and a 15 blade was then utilized to make the incision in a through and through fashion through epidermal dermal layers into the subcutaneous tissue with all vital neurovascular structures retracted or cauterized as necessary. Incision was deepened down to the level of the abscess at which time purulent drainage was expressed. All pockets of pus were expressed and no further purulent drainage was then encountered. Site was then examined and all remaining devitalized tissue was removed no remaining infection or purulent drainage was seen. The site was then flushed with copious amounts of normal sterile saline utilizing a pulse lavage. Deep swab cultures were then obtained post lavage and sent to microbiology. Site was then closed in a layered suture fashion with Vicryl for the deep layers and nylon for skin layers. Quarter inch iodoform packing was placed into the plantar ulceration to fill the wound deficit was covered with Xeroform as well. The site was then dressed with Xeroform 4 x 4's ABDs Kerlix Chalino wrap. The ankle tourniquet was deflated with prompt brisk hyperemic response noted to all digits patient's operative foot. Patient was then sent to PACU with vital signs status intact. Podiatry will continue to follow up with patient It should be noted that purulent drainage was expressed from multiple soft tissue abscesses to the medial and lateral and central plantar foot as well as from the medullary canal of the fifth metatarsal remnant. It was determined that the entirety of the fifth metatarsal need to be excised. The fifth metatarsal bone was then debrided away and removed from the field and sent as to the lab the specimen. In order to obtain good parabola for patient ambulation the remaining bases of metatarsals 2 3 and 4 were also debrided away. The medial cuneiform which was suspected of osteomyelitis on MRI was examined. No soft areas were easily visualized but a plantar spike was noted which is the likely cause of the ulceration to the plantar aspect of the patient's foot. A sagittal saw was then introduced in order to remove the plantar spur as well as to continue the parabola for ambulation. The medial cuneiform was also sent to the lab the specimen. - Admit VTE Documentation VTE Present on Admission: Yes VTE Mechan Device Prophylaxis: SCD's VTE Pharm Prophylaxis ordered?: Yes
[2020-04-11] MEDS: Bupivacaine Mpf 0.5% 30 ML VIAL (16:29)
--- NOTE | 2020-04-11 18:05 | RAD_ITS ---
STUDY: X-RAY - LEFT FOOT CLINICAL: Male, 64 years old. post op left foot TECHNIQUE: 3 view(s) of the foot. COMPARISON: 11/24/2019. FINDINGS: Status post transmetatarsal amputation of the toes. There is increasing soft tissue edema with subcutaneous emphysema. Slight cortical irregularity of the distal tarsal bones. Osteomyelitis cannot be excluded. RAD/Foot min 3 Views IMPRESSION: Status post amputation of the toes. Interval increase in soft tissue swelling and subcutaneous emphysema. Osteomyelitis cannot be excluded. Electronically Signed: eBn Ying DO at 22:56 EST Tel [phone], Service support ,
[2020-04-11] MEDS: Atorvastatin Calcium 40 MG Tablet PO (22:06)
[2020-04-11] MEDS: Acetaminophen 325 MG Tablet 650 MG PO (22:48)
[2020-04-12] VITALS (12 sets, daily range): BP systolic 94–126; BP diastolic 40–59; PULSE 60–81; RESP 16–18; TEMP 36.8–38.4; O2SAT 93–97
[2020-04-12] MEDS: 0.9% Normal Saline 1,000 ML 100 ML IV ×2 (00:55→10:37)
[2020-04-12] MEDS: Acetaminophen 325 MG Tablet 650 MG PO (05:00)
[2020-04-12] MEDS: Levothyroxine 75 MCG Tablet PO (05:58)
[2020-04-12 06:29] LABS: Absolute Lymphocyte Count 0.64 X10^3/uL (0.83-4.51); Absolute Neutrophil Count 9.9 X10^3/uL (2.0-7.7); Basophil# 0.06 X10^3/uL; Basophil% 0.5 % (0-1); Eosinophils% 0.8 % (0-5); Hematocrit 38.5 % (40-54); Lymphocyte # 0.64 X10^3/ul (4.0); Lymphocyte % 5.3 % (19-41); Mean Corp Hgb Conc 31.2 g/dL (32-36); Mean Corpuscular Hgb 25.3 pg (27.0-32.0); Mean Corpuscular Volume 81.2 fL (80-94); Mean Platelet Vol. 10.1 fl (6.2-12.0); Monocyte# 1.38 X10^3/uL; Monocyte% 11.3 % (0-10); NRBC Flagged by Analyzer 0 % (0-5); Neutrophil # 9.93 X10^3/uL (2.7-7.7); Neutrophil % 81.7 % (47-70); Platelet Count 223 K/mm3 (150-450); RBC Distribution Width CV 14.6 % (11.6-14.6); RBC Distribution Width SD 43.1 fl (35.1-43.9); Red Blood Count 4.74 M/mm3 (4.6-6.2); White Blood Count 12.2 K/mm3 (4.4-11.0)
[2020-04-12 07:02] LABS: Anion Gap 6 (5-15); BUN 9 mg/dL (7-18); BUN/Creat Ratio 11.8 RATIO (10-20); Calcium,Total 7.8 mg/dL (8.5-10.1); Chloride 109 mmol/L (98-107); Creatinine, Serum 0.76 mg/dL (0.70-1.30); EST Glomerular Filtration Rate 109 mL/min (>60); Est Glom Filt Rate - Afr Amer 132 mL/min (>60); Estimated Creatinine Clearance 109.51 ml/min; Glucose 97 mg/dL (74-106); Potassium 3.2 mmol/L (3.5-5.1); Sodium Level 137 mmol/L (136-145)
[2020-04-12] MEDS: Metoprolol Tartrate 25 MG Tablet PO ×2 (08:06→22:03)
[2020-04-12] MEDS: Enoxaparin 40 MG/0.4 ML Syringe SC (08:06)
[2020-04-12] MEDS: Juven (unflavored) Packet 1 PACKET PO ×2 (08:06→16:54)
[2020-04-12] MEDS: DULoxetine Hcl 30 MG Capsule PO (08:06)
--- NOTE | 2020-04-12 08:42 | PCM.PROGNOTE ---
Patient Problems: Active and Suspected Problems Redness of the left leg and foot (Acute) Type 2 diabetes mellitus with foot ulcer (Acute) Sepsis (Acute) Osteomyelitis (Acute) Cellulitis of lower extremity (Acute) Subjective: Patient seen and examined bedside. Patient denies any new pedal complaints. Patient denies nausea, fever, vomiting, chills, chest pain, shortness of breath, streaking. Patient had a fever overnight which has since resolved. He denies any pain to surgical foot. - Physical Exam Vitals/I&O's: Vital Signs Temp Pulse Resp BP Pulse Ox 98.7 F 65 18 97/46 L 95 04/12/20 08:04 04/12/20 08:06 04/12/20 08:04 04/12/20 08:04 04/12/20 08:04 Oxygen Flow Rate (L/min) 97 Oxygen Delivery Method Room Air Weight: 82.1 kg Body Mass Index (BMI) 23.8 Finger Stick Blood Glucose 89 Intake and Output for Last 24 Hours 04/10/20 04/11/20 04/12/20 23:59 23:59 23:59 Intake Total 1180.50 / 1660.50 1410 / 1410 Output Total 1525 / 1975 650 / 650 Balance -344.50 / -314.50 760 / 760 General: Alert, Oriented x3 HEENT: Atraumatic Extremities: No clubbing, No cyanosis, Capillary Refill Less than 3 Seconds, No Calf Tenderness, Diminished Peripheral Pulses - 1 out of 4 DP and PT on the right and 1 out of 4 DP on the left and nonpalpable PT on the left, Edema - left worse than right. Left is pitting. Some improvement noted from yesterday. Skin: Ulcer/ Wound Musculoskeletal: No Tenderness to Palpation of Joints or Extremities, Muscle Wasting, - - left foot partial amputation Neurological: - - lack of sensation consistent with patient's neuropathy Psych/Mental Status: Normal Affect, Appropriate, Alert and oriented to time, place, person, mood and affect Microbiology Past 72 Hours 04/11/20 04:30 Blood Culture (Wb) - Right Hand Bacteria Detection (PCR) - Preliminary Staphylococcus aureus 04/11/20 04:30 Blood Culture (Wb) - Right Hand Blood Culture - Preliminary 04/11/20 02:58 Blood Culture (Wb) - Anticubital Left Blood Culture - Preliminary 04/11/20 04:30 Mucosa - Nose SARS-CoV-2 Antigen (Rapid) - Final Laboratory Results 04/11/20 02:58: Hemoglobin A1c 5.8 H 04/11/20 08:42: Lactic Acid 0.9 04/11/20 15:01: POC Glucose 105 04/12/20 06:18: WBC 12.2 H, RBC 4.74, Hgb 12.0 L, Hct 38.5 L, MCV 81.2, MCH 25.3 L, MCHC 31.2 L, RDW Std Deviation 43.1, RDW Coeff of Jesus 14.6, Plt Count 223, MPV 10.1, Immature Gran % (Auto) 0.400, Neut % (Auto) 81.7 H, Lymph % (Auto) 5.3 L, [place] % (Auto) 11.3 H, Eos % (Auto) 0.8, Baso % (Auto) 0.5, Absolute Neuts (auto) 9.9 H, Absolute Lymphs (auto) 0.64 L, Nucleated RBC % 0 04/12/20 06:18: Sodium 137, Potassium 3.2 L, Chloride 109 H, Carbon Dioxide 22.0, Anion Gap 6, BUN 9, Creatinine 0.76, Estim Creat Clear Calc 109.51, Est GFR (MDRD) Af Amer 132, Est GFR (MDRD) Non-Af 109, BUN/Creatinine Ratio 11.8, Glucose 97, Calcium 7.8 L Current Medications Acetaminophen (Acetaminophen 325 Mg Tablet) 650 mg PO Q6H PRN PRN PRN Reason: Temp > 100.4 F Last Admin: 04/12/20 05:00 Dose: 650 mg Documented by: Atorvastatin Calcium (Atorvastatin Calcium 40 Mg Tablet) 40 mg PO QHS [facility] Last Admin: 04/11/20 22:06 Dose: 40 mg Documented by: Duloxetine HCl (Duloxetine Hcl 30 Mg Capsule) 30 mg PO DAILY [facility] Last Admin: 04/12/20 08:06 Dose: 30 mg Documented by: Enoxaparin Sodium (Enoxaparin 40 Mg/0.4 Ml Syringe) 40 mg SC DAILY [facility] Last Admin: 04/12/20 08:06 Dose: 40 mg Documented by: Sodium Chloride () 250 mls @ 15 mls/hr IV .[id number] PRN PRN Reason: Saline Flush Last Infusion: 04/12/20 03:46 Dose: 15 mls/hr Documented by: Sodium Chloride () 250 mls @ 15 mls/hr IV .[id number] PRN PRN Reason: Additional IVPB Infusion Sodium Chloride () 1,000 mls @ 100 mls/hr IV .Q10H [facility] Last Admin: 04/12/20 00:55 Dose: 100 mls/hr Documented by: Piperacillin Sod/Tazobactam (Sod 3.375 gm/ Sodium Chloride) 50 mls @ 12.5 mls/hr IV Q8 [facility] Last Admin: 04/12/20 05:56 Dose: 12.5 mls/hr Documented by: Sodium Chloride () 250 mls @ 15 mls/hr IV .[id number] PRN PRN Reason: Additional IVPB Infusion Vancomycin IV Pharmacy to Dose (1 ea/ Sodium Chloride) 500 mls @ 250 mls/hr IV X1 PRN; Protocol PRN Reason: Rx to Dose L-Arginine/L-Glutamine/Calcium HMB [facility]) [facility] Last Admin: 04/12/20 08:06 Dose: 1 packet Documented by: Levothyroxine Sodium (Levothyroxine 75 Mcg Tablet) 75 mcg PO DAILY@0600 [facility] Last Admin: 04/12/20 05:58 Dose: 75 mcg Documented by: Metoprolol Tartrate (Metoprolol Tartrate 25 Mg Tablet) 25 mg PO BID [facility] Last Admin: 04/12/20 08:06 Dose: 25 mg Documented by: Morphine Sulfate (Morphine 2 Mg/Ml Syringe) 2 mg IV Q3H PRN PRN PRN Reason: Pain Score 6-10 Ondansetron HCl (Ondansetron 4 Mg/2 Ml Vial) 4 mg IV Q8H PRN PRN PRN Reason: NAUSEA/VOMITING Last Admin: 04/11/20 22:43 Dose: 4 mg Documented by: Sodium Chloride (0.9% Saline Lock 10 Ml Syringe) 10 - 40 ml IV UD PRN PRN Reason: SALINE FLUSH Last Admin: 04/11/20 22:43 Dose: 10 ml Documented by: Medical Necessity - Tobacco Use Smoking Status: Current every day smoker Tobacco Use: Cigarettes Assessment/Plan All Active Problems Redness of the left leg and foot (Acute) Type 2 diabetes mellitus with foot ulcer (Acute) Sepsis (Acute) Osteomyelitis (Acute) Cellulitis of lower extremity (Acute) Left foot ulcer s/p I&D with bone debridement and revision of amputation on 04/11/[address] Torres Left foot osteomyelitis Left foot cellulitis bacteremia Diabetes with 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 In OR multiple soft tissue abscesses were found as well as pus from medullary cannal of 5th metatarsal bone. Upon completion of surgery no further pus was expressed. Today upon examination and dressing change further purulent drainage was expressed from the plantar ulceration. It was also noted that a blister formed on distal stump. This is likely from rubbing on bed's footboard. Devitalized skin was removed from the superficial blister measuring 1.1x4.2x0.1cm Please try to boost patient so foot isn't rubbing on footboard and keep bed fully extended. Continue daily dressing changes with xeroform along incision, aquacel Ag at distal stump blister and iodoform packing into ulcer deficit. Wrap with philip wrap from foot to knee. Patient is aware and understands that worsening of infection or failure to heal and take care of his left foot could result in a BKA. Discussed with patient the importance of proper infection and wound care management. Discussed with patient importance of NWB, proper nutrition including enough protein, and blood sugar control to optimize healing potential. LEAS showed right ROB of 1.42 and TBI 0.43 and left ROB 1.12 and TBI unable to be obtained as there are no toes to left foot. PT and DP bilateral were triphasic Continue IV antibiotics Continue wound care Will continue to monitor for further purulent drainage Podiatry will continue to follow. Please contact if any questions or concerns.
--- NOTE | 2020-04-12 09:47 | NURSING ---
wound photo: left foot
--- NOTE | 2020-04-12 09:47 | NURSING ---
wound photo: left foot
--- NOTE | 2020-04-12 09:48 | NURSING ---
wound photo: left foot
--- NOTE | 2020-04-12 10:28 | PCM.PN.HOSP ---
Patient Problems: Active and Suspected Problems Redness of the left leg and foot (Acute) Type 2 diabetes mellitus with foot ulcer (Acute) Sepsis (Acute) Osteomyelitis (Acute) Cellulitis of lower extremity (Acute) Subjective: Status post repeated debridement of his left foot. He has no complaints. No issues overnight. Vitals/I&O's: Vital Signs Temp Pulse Resp BP Pulse Ox 98.4 F 66 16 113/56 L 94 04/12/20 10:00 04/12/20 10:00 04/12/20 10:00 04/12/20 10:00 04/12/20 10:00 Oxygen Flow Rate (L/min) 97 Oxygen Delivery Method Room Air Weight: 180 lb 15.992 oz Body Mass Index (BMI) 23.8 Finger Stick Blood Glucose 89 Intake and Output for Last 24 Hours 04/10/20 04/11/20 04/12/20 23:59 23:59 23:59 Intake Total 1180.50 / 1660.50 1460 / 1460 Output Total 1525 / 1975 650 / 650 Balance -344.50 / -314.50 810 / 810 General: Alert, Oriented x3, Cooperative, No apparent distress HEENT: Atraumatic, PERRLA, EOMI, Normocephalic Oral: Moist Mucosa Neck: Supple, No JVD Lungs: Normal air movement, No rhonchi, No wheeze, No rales, Diminished Cardiovascular: Regular rate, Regular Rhythm, Normal S1, Normal S2, No murmurs Abdomen: Soft, Non Tender, Non-Distended, No Hepato-splenomegaly Extremities: Capillary Refill Less than 3 Seconds, Edema Skin: Incision - Left foot incision is dressed Neurological: Neuro grossly intact, Sensory exam intact to light touch and pain Psych/Mental Status: Normal Affect, Appropriate Microbiology Past 72 Hours 04/11/20 04:30 Blood Culture (Wb) - Right Hand Bacteria Detection (PCR) - Preliminary Staphylococcus aureus 04/11/20 04:30 Blood Culture (Wb) - Right Hand Blood Culture - Preliminary 04/11/20 02:58 Blood Culture (Wb) - Anticubital Left Blood Culture - Preliminary 04/11/20 04:30 Mucosa - Nose SARS-CoV-2 Antigen (Rapid) - Final Laboratory Results 04/11/20 15:01: POC Glucose 105 04/12/20 06:18: WBC 12.2 H, RBC 4.74, Hgb 12.0 L, Hct 38.5 L, MCV 81.2, MCH 25.3 L, MCHC 31.2 L, RDW Std Deviation 43.1, RDW Coeff of Jesus 14.6, Plt Count 223, MPV 10.1, Immature Gran % (Auto) 0.400, Neut % (Auto) 81.7 H, Lymph % (Auto) 5.3 L, [place] % (Auto) 11.3 H, Eos % (Auto) 0.8, Baso % (Auto) 0.5, Absolute Neuts (auto) 9.9 H, Absolute Lymphs (auto) 0.64 L, Nucleated RBC % 0 04/12/20 06:18: Sodium 137, Potassium 3.2 L, Chloride 109 H, Carbon Dioxide 22.0, Anion Gap 6, BUN 9, Creatinine 0.76, Estim Creat Clear Calc 109.51, Est GFR (MDRD) Af Amer 132, Est GFR (MDRD) Non-Af 109, BUN/Creatinine Ratio 11.8, Glucose 97, Calcium 7.8 L Current Medications Acetaminophen (Acetaminophen 325 Mg Tablet) 650 mg PO Q6H PRN PRN PRN Reason: Temp > 100.4 F Last Admin: 04/12/20 05:00 Dose: 650 mg Documented by: Atorvastatin Calcium (Atorvastatin Calcium 40 Mg Tablet) 40 mg PO QHS [facility] Last Admin: 04/11/20 22:06 Dose: 40 mg Documented by: Duloxetine HCl (Duloxetine Hcl 30 Mg Capsule) 30 mg PO DAILY [facility] Last Admin: 04/12/20 08:06 Dose: 30 mg Documented by: Enoxaparin Sodium (Enoxaparin 40 Mg/0.4 Ml Syringe) 40 mg SC DAILY [facility] Last Admin: 04/12/20 08:06 Dose: 40 mg Documented by: Sodium Chloride () 250 mls @ 15 mls/hr IV .[id number] PRN PRN Reason: Saline Flush Last Infusion: 04/12/20 03:46 Dose: 15 mls/hr Documented by: Sodium Chloride () 250 mls @ 15 mls/hr IV .[id number] PRN PRN Reason: Additional IVPB Infusion Sodium Chloride () 1,000 mls @ 100 mls/hr IV .Q10H [facility] Last Admin: 04/12/20 00:55 Dose: 100 mls/hr Documented by: Piperacillin Sod/Tazobactam (Sod 3.375 gm/ Sodium Chloride) 50 mls @ 12.5 mls/hr IV Q8 [facility] Last Infusion: 04/12/20 10:15 Dose: Infused Documented by: Sodium Chloride () 250 mls @ 15 mls/hr IV .[id number] PRN PRN Reason: Additional IVPB Infusion Vancomycin IV Pharmacy to Dose (1 ea/ Sodium Chloride) 500 mls @ 250 mls/hr IV X1 PRN; Protocol PRN Reason: Rx to Dose Vancomycin HCl 2,000 mg/ (Sodium Chloride) 540 mls @ 180 mls/hr IV X1 ONE Stop: 04/12/20 12:44 L-Arginine/L-Glutamine/Calcium HMB (Robert ([facility]fl[facility]) [facility]) [facility] Last Admin: 04/12/20 08:06 Dose: 1 packet Documented by: Levothyroxine Sodium (Levothyroxine 75 Mcg Tablet) 75 mcg PO DAILY@0600 [facility] Last Admin: 04/12/20 05:58 Dose: 75 mcg Documented by: Metoprolol Tartrate (Metoprolol Tartrate 25 Mg Tablet) 25 mg PO BID [facility] Last Admin: 04/12/20 08:06 Dose: 25 mg Documented by: Morphine Sulfate (Morphine 2 Mg/Ml Syringe) 2 mg IV Q3H PRN PRN PRN Reason: Pain Score 6-10 Ondansetron HCl (Ondansetron 4 Mg/2 Ml Vial) 4 mg IV Q8H PRN PRN PRN Reason: NAUSEA/VOMITING Last Admin: 04/11/20 22:43 Dose: 4 mg Documented by: Sodium Chloride (0.9% Saline Lock 10 Ml Syringe) 10 - 40 ml IV UD PRN PRN Reason: SALINE FLUSH Last Admin: 04/11/20 22:43 Dose: 10 ml Documented by: STROKE Vital Signs/Narrative: Vital Signs Temp Pulse Resp BP Pulse Ox 04/12/20 10:00 98.4 F 66 16 113/56 L 94 04/12/20 08:06 65 04/12/20 08:04 98.7 F 65 18 97/46 L 95 04/12/20 07:55 96 04/12/20 07:54 60 Medical Necessity - Tobacco Use Smoking Status: Current every day smoker Tobacco Use: Cigarettes Assessment/Plan All Active Problems Redness of the left leg and foot (Acute) Type 2 diabetes mellitus with foot ulcer (Acute) Sepsis (Acute) Osteomyelitis (Acute) Cellulitis of lower extremity (Acute) 1. Left fifth metatarsal osteomyelitis with abscess/DM 2/staph bacteremia -We will continue managing his blood sugars closely and make appropriate adjustments if necessary -He was currently on Zosyn we will add vancomycin secondary to the positive staph PCR -Wound cultures are pending -He does not recall having a rash with vancomycin that could be red man syndrome therefore I did instruct nursing to run the vancomycin as slowly as possible if he continues to have an issue with a can then proceed to Zyvox if necessary 2. CAD status post stents/HTN/HLD -Blood pressures are stable -Continue with metoprolol and Lipitor 3. Anxiety/depression -Stable -Continue with Cymbalta, if he does have a reaction to the vancomycin will have to decrease the dose or discontinue altogether his Cymbalta until after he completes his course DVT: Lovenox Inpatient E&M: 19091 Subs Hosp L2
--- NOTE | 2020-04-12 12:42 | PCM.RX.CS ---
Consult Pharmacy has been consulted to manage selected antiobiotic: Vancomycin Type of Consult: New start Suspected Infection: Sepsis, Skin/Soft tissue, Osteomyelitis Labs: Sodium 137 mmol/L (136-145) 04/12/20 06:18 Potassium 3.2 mmol/L (3.5-5.1) L 04/12/20 06:18 Chloride 109 mmol/L (98-107) H 04/12/20 06:18 Carbon Dioxide 22.0 mmol/L (21.0-32.0) 04/12/20 06:18 Anion Gap 6 (5-15) 04/12/20 06:18 BUN 9 mg/dL (7-18) 04/12/20 06:18 Creatinine 0.76 mg/dL (0.70-1.30) 04/12/20 06:18 Est GFR (MDRD) Af Amer 132 mL/min (>60) 04/12/20 06:18 Est GFR (MDRD) Non-Af 109 mL/min (>60) 04/12/20 06:18 BUN/Creatinine Ratio 11.8 RATIO (10-20) 04/12/20 06:18 Glucose 97 mg/dL (74-106) 04/12/20 06:18 Microbiology: Microbiology 04/11/20 18:42 Wound - Left Foot Gram Stain - Final 04/11/20 18:42 Wound - Left Foot Wound Culture - Preliminary Gram positive organism 04/11/20 07:20 Wound Abcess - Left Foot Gram Stain - Final 04/11/20 07:20 Wound Abcess - Left Foot Wound Culture - Preliminary Staphylococcus aureus Gram positive organism 04/11/20 18:46 Bone - Left Foot Gram Stain - Final 04/11/20 18:45 Bone - Left Foot Gram Stain - Final 04/11/20 18:45 Bone - Left Foot Wound Culture - Preliminary Gram positive organism 04/11/20 02:58 Blood Culture (Wb) - Anticubital Left Blood Culture - Preliminary Staphylococcus aureus Gram positive organism Alpha hemolytic organism 04/11/20 04:30 Blood Culture (Wb) - Right Hand Bacteria Detection (PCR) - Preliminary Staphylococcus aureus 04/11/20 04:30 Blood Culture (Wb) - Right Hand Blood Culture - Preliminary Staphylococcus aureus Gram positive organism 04/11/20 08:05 Urine, Clean Catch Urine Culture - Final Mixed Gram Positive Organisms 01/19/21 04:30 Mucosa - Nose SARS-CoV-2 Antigen (Rapid) - Final Weight used for dosin.1 kg Estimated Creatinine Clearance: >100ML/MIN Goal Trough: 15-20 mcg/mL Pharmacy Plan for Drug Dosing: Will give initial dose of 2000mg IV x1, then continue with 1750mg IV q12h. Due to possible previous adverse reaction with vancomycin, will infuse doses slower than normal. A trough will be checked before the 4th dose tomorrow night. Pharmacy Service will continue to monitor and adjust dosing as required. Follow-Up Labs: Trough Vancomycin Labs to be done on [date and time ordered]: 04/13/20 22:30
--- NOTE | 2020-04-12 13:13 | CASEMGMT ---
Social Work Note SW met with pt to continue discussion of discharge plans. SW introduced self and role at [facility]. Pt is alert and orientated. Pt confirms he is currently homeless. SW provided pt with Homeless resources. Pt states he has been to the [employer] but is not able to return. Pt states he has three daughters but don't want to reach out to them for help. SW spoke with pt about wound care at discharge, pt will likely need SNF. Pt states yeah I'll probably have to be off of my foot. Pt confirms that last time he went to [facility]. SW provided pt with list of SNF that accept pt's insurance with Medicare ratings. Pt agreeable to returning to [facility]. SW explained referral process and that pt will need pre-cert again. SW to fax referral once PT/OT are available. Plan: SNF pending acceptance and pre-cert Glendy Maher [employer]
[2020-04-12] MEDS: 0.9% Saline Lock 10 ML Syringe IV ×2 (13:54→16:53)
--- NOTE | 2020-04-12 14:07 | ECHOCS_ITS ---
Reason For Study: MURMUR Procedure This was a 2D Doppler, Color Flow transthoracic echocardiogram. The study was technically difficult. Contrast injection was performed. Exam performed portable in patient room. Left Ventricle Normal LV size. Left ventricular systolic function is normal. The estimated ejection fraction is 60 %. No regional wall motion abnormalities noted. Atria Normal left atrium. Normal right atrium. Mitral Valve Normal mitral valve. Tricuspid Valve Normal tricuspid valve. Mild (1+) tricuspid valve insufficiency. Pulmonary artery systolic pressure is 40 mmHg. Aortic Valve Trisinus/trileaflet aortic valve. Mild focal aortic valve calcification. Pulmonic Valve Normal pulmonic valve. Great Vessels Mildly dilated aortic root. The pulmonary artery is normal size. Normal inferior vena cava. Pericardium/Pleural No pericardial effusion. Medication Diluted definity 3.0ml given slow IV push to enhance endocardial definition. MMode/2D Measurements & Calculations LVIDd: 4.5 cm IVSd: 1.1 cm Ao root diam: 4.4 cm LVIDs: 3.7 cm LVPWd: 1.2 cm RVDd: 4.8 cm FS: 18.0 % LAV(MOD-bp): 61.8 ml LVAd ap4: 41.2 cm2 SV(MOD-sp4): 78.6 ml LAV(MOD-bp) Indexed: 29.4 ml/m2 EDV(MOD-sp4): 146.9 ml LAV(MOD-sp2): 58.0 ml EDV(sp4-el): 157.8 ml LAV(MOD-sp4): 65.8 ml LVAs ap4: 25.2 cm2 ESV(MOD-sp4): 68.3 ml ESV(sp4-el): 71.3 ml EF(MOD-sp4): 53.5 % EF(sp4-el): 54.8 % SV(sp4-el): 86.4 ml LA A4C-A/L_phl: 22.3 cm2 LA dimension(2D): 4.2 cm RA A4 area: 19.0 cm2 Time Measurements MV dec time: 0.13 sec Doppler Measurements & Calculations MV E max alexis: 121.9 cm/sec Lat Peak E' Alexis: 5.3 cm/sec Med Peak E' Alexis: 5.4 cm/sec MV A max alexis: 91.8 cm/sec E/E' lat: 23.1 E/E' med: 22.8 MV E/A: 1.3 Ao V2 max: 181.9 cm/sec LV V1 max: 121.9 cm/sec PA V2 max: 138.4 cm/sec Ao max P.2 mmHg LV V1 max P.9 mmHg TR max alexis: 301.5 cm/sec TR max P.4 mmHg Interpretation Summary Mildly dilated aortic root. Normal LV size. Left ventricular systolic function is normal. The estimated ejection fraction is 60 %. No regional wall motion abnormalities noted. Pulmonary artery systolic pressure is 40 mmHg. Ordering Physician: Daniel Almendarez Referring Physician: BITA CNAO Performed By: Laura Shelton, BINA, RVT
--- NOTE | 2020-04-12 17:27 | CON.PCM_ITS ---
Problem List (1) Osteomyelitis Status: Acute Reason for Consult: bacteremia Consulted by: Dr. Rivas History of Present Illness: The patient is a 64 year old M with DM neuropathy, prior osteo, currently homeless, presented with several days of L foot swelling, redness, drainage, fever. No pain. Came to ED 04/11, taken to OR by Dr. Torres. Bcx now with MRSA, on vanc/zosyn, feeling better. Full ROS performed and neg except as noted above. - Medical History Past Medical History (Chronic Problems): Chronic Problems Type 2 diabetes mellitus with foot ulcer (Chronic) Homelessness (Chronic) Hypothyroidism (Chronic) History of hyperlipidemia (Chronic) History of gastroesophageal reflux (GERD) (Chronic) Deep venous thrombosis of upper extremity (Chronic) CAD (coronary artery disease) (Chronic) Benign essential hypertension (Chronic) Allergies/Adverse Reactions: Allergies colesevelam HCl [From WelChol] Allergy (Verified 04/11/20 02:48) Rash dicyclomine Allergy (Verified 04/11/20 02:48) Rash divalproex sodium [From Depakote] Allergy (Verified 04/11/20 02:48) Unknown rofecoxib [From Vioxx] Allergy (Verified 04/11/20 02:48) Rash vancomycin Adverse Reaction (Verified 04/11/20 02:48) Rash Home Medications: Ambulatory Orders Medication Instructions Recorded Levothyroxine [Synthroid] 75 mcg PO DAILY 09/01/13 Duloxetine HCl 30 mg PO DAILY 07/07/19 Rosuvastatin Calcium [Crestor] 20 mg PO DAILY 07/07/19 Metoprolol Tartrate 25 mg PO BID 11/23/19 - Social History SMOKING STATUS:: Current every day smoker Vital Signs Temp Pulse Resp BP Pulse Ox 98.3 F 60 18 101/48 L 96 04/12/20 14:03 04/12/20 14:07 04/12/20 14:03 04/12/20 14:03 04/12/20 14:03 Oxygen Flow Rate (L/min) 97 Oxygen Delivery Method Room Air Weight: 82.1 kg Body Mass Index (BMI) 23.8 Finger Stick Blood Glucose 89 Microbiology Past 72 Hours 04/11/20 18:46 Gram Stain - Final Bone - Left Foot 04/11/20 18:42 Gram Stain - Final Wound - Left Foot Wound Culture - Preliminary Gram positive organism 04/11/20 07:20 Gram Stain - Final Wound Abcess - Left Foot Wound Culture - Preliminary Staphylococcus aureus Gram positive organism 04/11/20 18:45 Gram Stain - Final Bone - Left Foot Wound Culture - Preliminary Gram positive organism 04/11/20 02:58 Blood Culture - Preliminary Blood Culture (Wb) - Anticubital Left Staphylococcus aureus Gram positive organism Alpha hemolytic organism 04/11/20 04:30 Bacteria Detection (PCR) - Preliminary Blood Culture (Wb) - Right Hand Staphylococcus aureus Blood Culture - Preliminary Staphylococcus aureus Gram positive organism 04/11/20 08:05 Urine Culture - Final Urine, Clean Catch Mixed Gram Positive Organisms 04/11/20 04:30 SARS-CoV-2 Antigen (Rapid) - Final Mucosa - Nose Laboratory Tests Past 24 Hrs 04/12/20 04/12/20 06:18 06:18 WBC 12.2 H RBC 4.74 Hgb 12.0 L Hct 38.5 L MCV 81.2 MCH 25.3 L MCHC 31.2 L RDW Std Deviation 43.1 RDW Coeff of Jesus 14.6 Plt Count 223 MPV 10.1 Immature Gran % (Auto) 0.400 Neut % (Auto) 81.7 H Lymph % (Auto) 5.[address] [place] % (Auto) 11.3 H Eos % (Auto) 0.8 Baso % (Auto) 0.5 Absolute Neuts (auto) 9.9 H Absolute Lymphs (auto) 0.64 L Nucleated RBC % 0 Sodium 137 Potassium 3.2 L Chloride 109 H Carbon Dioxide 22.0 Anion Gap 6 BUN 9 Creatinine 0.76 Estim Creat Clear Calc 109.51 Est GFR (MDRD) Af Amer 132 Est GFR (MDRD) Non-Af 109 BUN/Creatinine Ratio 11.8 Glucose 97 Calcium 7.8 L - Other Studies Radiology: [] reviewed Other Studies: [] Route of nutrition/ use of supplements: [] Nutritional Intake: [] IV Site: [] Waggoner Catheter: [] - Physical Exam General: Alert, Oriented x3, Cooperative, No apparent distress HEENT: Atraumatic, PERRLA, EOMI Neck: Supple, No Nodes Lungs: Clear to auscultation, Normal air movement Cardiovascular: Regular rate, Regular Rhythm Abdomen: Soft, Non Tender, Non-Distended Skin: Ulcer/ Wound - reviewed photos IV Site: Peripheral, without redness Musculoskeletal: No Tenderness to Palpation of Joints or Extremities Neurological: Cranial nerves II-XII grossly intact - Assessment/Plan Antibiotics: [] Assessment/Plan: [] Active and Suspected Problems Redness of the left leg and foot (Acute) Type 2 diabetes mellitus with foot ulcer (Acute) Sepsis (Acute) Osteomyelitis (Acute) Cellulitis of lower extremity (Acute) severe sepsis due to MRSA bacteremia per pcr from L foot osteo - now s/p OR 04/[address] Torres. Repeat bcx today, check TTE. Cont vanc/zosyn. Will follow, thank you, d/w Dr. Rivas
[2020-04-12] MEDS: Atorvastatin Calcium 40 MG Tablet PO (22:03)
[2020-04-13] VITALS (11 sets, daily range): BP systolic 116–138; BP diastolic 59–66; PULSE 68–80; RESP 16–20; TEMP 37–37.7; O2SAT 92–95
[2020-04-13] MEDS: 0.9% Normal Saline 1,000 ML 100 ML IV ×3 (01:14→17:21)
[2020-04-13] MEDS: Levothyroxine 75 MCG Tablet PO (05:15)
[2020-04-13 07:03] LABS: Absolute Lymphocyte Count 1.08 X10^3/uL (0.83-4.51); Absolute Neutrophil Count 5.4 X10^3/uL (2.0-7.7); Basophil# 0.06 X10^3/uL; Basophil% 0.8 % (0-1); Eosinophil# 0.26 X10^3/uL; Eosinophils% 3.3 % (0-5); Hematocrit 36.2 % (40-54); Hemoglobin 11.3 g/dL (13.0-16.5); Lymphocyte # 1.08 X10^3/ul (4.0); Lymphocyte % 13.8 % (19-41); Mean Corp Hgb Conc 31.2 g/dL (32-36); Mean Corpuscular Hgb 24.9 pg (27.0-32.0); Mean Corpuscular Volume 79.7 fL (80-94); Mean Platelet Vol. 10.4 fl (6.2-12.0); Monocyte# 1.02 X10^3/uL; Monocyte% 13.1 % (0-10); NRBC Flagged by Analyzer 0 % (0-5); Neutrophil # 5.36 X10^3/uL (2.7-7.7); Neutrophil % 68.6 % (47-70); Platelet Count 241 K/mm3 (150-450); RBC Distribution Width CV 14.6 % (11.6-14.6); RBC Distribution Width SD 42.8 fl (35.1-43.9); Red Blood Count 4.54 M/mm3 (4.6-6.2); White Blood Count 7.8 K/mm3 (4.4-11.0)
[2020-04-13 07:26] LABS: Anion Gap 5 (5-15); BUN 10 mg/dL (7-18); BUN/Creat Ratio 13.2 RATIO (10-20); Calcium,Total 7.7 mg/dL (8.5-10.1); Chloride 110 mmol/L (98-107); Creatinine, Serum 0.76 mg/dL (0.70-1.30); EST Glomerular Filtration Rate 109 mL/min (>60); Est Glom Filt Rate - Afr Amer 132 mL/min (>60); Estimated Creatinine Clearance 109.51 ml/min; Glucose 93 mg/dL (74-106); Potassium 3.1 mmol/L (3.5-5.1); Sodium Level 137 mmol/L (136-145)
[2020-04-13] MEDS: 0.9% Saline Lock 10 ML Syringe IV ×2 (07:43→15:39)
[2020-04-13] MEDS: Ondansetron 4 MG/2 ML Vial IV (07:43)
[2020-04-13] MEDS: Enoxaparin 40 MG/0.4 ML Syringe SC (07:44)
[2020-04-13] MEDS: DULoxetine Hcl 30 MG Capsule PO (07:44)
[2020-04-13] MEDS: Metoprolol Tartrate 25 MG Tablet PO ×2 (07:44→21:42)
[2020-04-13] MEDS: Juven (unflavored) Packet 1 PACKET PO ×2 (07:47→17:23)
--- NOTE | 2020-04-13 10:09 | PCM.PROGNOTE ---
Patient Problems: Active and Suspected Problems Redness of the left leg and foot (Acute) Type 2 diabetes mellitus with foot ulcer (Acute) Sepsis (Acute) Osteomyelitis (Acute) Cellulitis of lower extremity (Acute) Subjective: Patient seen and examined bedside. Patient denies any new pedal complaints. Patient denies any nausea, fever, chills, chest pain, shortness of breath, cough, streaking, purulence, vomiting. No pain to left foot - Physical Exam Vitals/I&O's: Vital Signs Temp Pulse Resp BP Pulse Ox 99 F 71 16 130/63 H 95 04/13/20 07:59 04/13/20 07:59 04/13/20 08:40 04/13/20 07:59 04/13/20 07:59 Oxygen Flow Rate (L/min) 97 Oxygen Delivery Method Room Air Weight: 82.1 kg Body Mass Index (BMI) 23.8 Finger Stick Blood Glucose 89 Intake and Output for Last 24 Hours 04/11/20 04/12/20 04/13/20 23:59 23:59 23:59 Intake Total 1180.50 / 1660.50 4436.5 / 4736.5 1885 / 1885 Output Total 1525 / 1975 1200 / 1200 1075 / 1075 Balance -344.50 / -314.50 3236.5 / 3536.5 810 / 810 General: Alert, Oriented x3 HEENT: Atraumatic Extremities: No clubbing, No cyanosis, Capillary Refill Less than 3 Seconds, No Calf Tenderness, Edema - Left lower extremity some improvement noted Skin: Ulcer/ Wound, Incision - Sutures intact skin well coapted mild maceration noted stump site is blanchable with capillary refill time less than 3 seconds, - - Left foot stump blister area is stable granular base no active drainage does not probe Musculoskeletal: Muscle Wasting, - - Partial amputation left foot Neurological: - - Lack of epicritic sensation consistent with neuropathy Psych/Mental Status: Normal Affect, Appropriate Microbiology Past 72 Hours 04/11/20 18:42 Wound - Left Foot Gram Stain - Final 04/11/20 18:42 Wound - Left Foot Wound Culture - Preliminary Staphylococcus aureus Alpha hemolytic organism 04/11/20 18:46 Bone - Left Foot Gram Stain - Final 04/11/20 18:46 Bone - Left Foot Wound Culture - Preliminary Staphylococcus aureus Staphylococcus species 04/11/20 18:45 Bone - Left Foot Gram Stain - Final 04/11/20 18:45 Bone - Left Foot Wound Culture - Preliminary Staphylococcus aureus Alpha hemolytic organism 04/11/20 07:20 Wound Abcess - Left Foot Gram Stain - Final 04/11/20 07:20 Wound Abcess - Left Foot Wound Culture - Preliminary Staphylococcus aureus Gram positive organism Gram positive nuha Gram negative nuha 04/11/20 04:30 Blood Culture (Wb) - Right Hand Bacteria Detection (PCR) - Preliminary Staphylococcus aureus 04/11/20 04:30 Blood Culture (Wb) - Right Hand Blood Culture - Preliminary Meth. resistant Staph. aureus Gram positive organism 04/12/20 16:40 Stool C. difficile DNA Amplification - Final 04/11/20 02:58 Blood Culture (Wb) - Anticubital Left Blood Culture - Preliminary Staphylococcus aureus Gram positive organism Alpha hemolytic organism 04/11/20 08:05 Urine, Clean Catch Urine Culture - Final Mixed Gram Positive Organisms 04/11/20 04:30 Mucosa - Nose SARS-CoV-2 Antigen (Rapid) - Final Laboratory Results 04/13/20 06:50: WBC 7.8, RBC 4.54 L, Hgb 11.3 L, Hct 36.2 L, MCV 79.7 L, MCH 24.9 L, MCHC 31.2 L, RDW Std Deviation 42.8, RDW Coeff of Jesus 14.6, Plt Count 241, MPV 10.4, Immature Gran % (Auto) 0.400, Neut % (Auto) 68.6, Lymph % (Auto) 13.8 L, [place] % (Auto) 13.1 H, Eos % (Auto) 3.3, Baso % (Auto) 0.8, Absolute Neuts (auto) 5.4, Absolute Lymphs (auto) 1.08, Nucleated RBC % 0 04/13/20 06:50: Sodium 137, Potassium 3.1 L, Chloride 110 H, Carbon Dioxide 22.0, Anion Gap 5, BUN 10, Creatinine 0.76, Estim Creat Clear Calc 109.51, Est GFR (MDRD) Af Amer 132, Est GFR (MDRD) Non-Af 109, BUN/Creatinine Ratio 13.2, Glucose 93, Calcium 7.7 L Current Medications Acetaminophen (Acetaminophen 325 Mg Tablet) 650 mg PO Q6H PRN PRN PRN Reason: Temp > 100.4 F Last Admin: 04/12/20 05:00 Dose: 650 mg Documented by: Atorvastatin Calcium (Atorvastatin Calcium 40 Mg Tablet) 40 mg PO QHS COUNTS [facility]CLUDE 234 BEDS AT THE [facility] Last Admin: 04/12/20 22:03 Dose: 40 mg Documented by: Duloxetine HCl (Duloxetine Hcl 30 Mg Capsule) 30 mg PO DAILY COUNTS INCLUDE 234 BEDS AT THE [facility] Last Admin: 04/13/20 07:44 Dose: 30 mg Documented by: Enoxaparin Sodium (Enoxaparin 40 Mg/0.4 Ml Syringe) 40 mg SC DAILY COUNTS INCLUDE 234 BEDS AT THE [facility] Last Admin: 04/13/20 07:44 Dose: 40 mg Documented by: Sodium Chloride () 250 mls @ 15 mls/hr IV .[id number] PRN PRN Reason: Saline Flush Last Admin: 04/12/20 13:55 Dose: 15 mls/hr Documented by: Sodium Chloride () 250 mls @ 15 mls/hr IV .[id number] PRN PRN Reason: Additional IVPB Infusion Sodium Chloride () 1,000 mls @ 100 mls/hr IV .Q10H COUNTS INCLUDE 234 BEDS AT THE [facility] Last Admin: 04/13/20 07:44 Dose: 100 mls/hr Documented by: Piperacillin Sod/Tazobactam (Sod 3.375 gm/ Sodium Chloride) 50 mls @ 12.5 mls/hr IV Q8 COUNTS INCLUDE 234 BEDS AT THE [facility] Last Infusion: 04/13/20 09:51 Dose: Infused Documented by: Sodium Chloride () 250 mls @ 15 mls/hr IV .[id number] PRN PRN Reason: Additional IVPB Infusion Vancomycin IV Pharmacy to Dose (1 ea/ Sodium Chloride) 500 mls @ 250 mls/hr IV X1 PRN; Protocol PRN Reason: Rx to Dose Vancomycin HCl 1,750 mg/ (Sodium Chloride) 535 mls @ 180 mls/hr IV Q12H COUNTS INCLUDE 234 BEDS AT THE [facility] Last Infusion: 04/13/20 01:15 Dose: Infused Documented by: L-Arginine/L-Glutamine/Calcium HMB (Robert (Unflavored) Packet) 1 packet PO BIDCM COUNTS INCLUDE 234 BEDS AT THE [facility] Last Admin: 04/13/20 07:47 Dose: 1 packet Documented by: Levothyroxine Sodium (Levothyroxine 75 Mcg Tablet) 75 mcg PO DAILY@0600 COUNTS INCLUDE 234 BEDS AT THE [facility] Last Admin: 04/13/20 05:15 Dose: 75 mcg Documented by: Metoprolol Tartrate (Metoprolol Tartrate 25 Mg Tablet) 25 mg PO BID [facility] Last Admin: 04/13/20 07:44 Dose: 25 mg Documented by: Morphine Sulfate (Morphine 2 Mg/Ml Syringe) 2 mg IV Q3H PRN PRN PRN Reason: Pain Score 6-10 Ondansetron HCl (Ondansetron 4 Mg/2 Ml Vial) 4 mg IV Q8H PRN PRN PRN Reason: NAUSEA/VOMITING Last Admin: 04/13/20 07:43 Dose: 4 mg Documented by: Sodium Chloride (0.9% Saline Lock 10 Ml Syringe) 10 - 40 ml IV UD PRN PRN Reason: SALINE FLUSH Last Admin: 04/13/20 07:43 Dose: 10 ml Documented by: Medical Necessity - Tobacco Use Smoking Status: Current every day smoker Tobacco Use: Cigarettes Assessment/Plan All Active Problems Redness of the left leg and foot (Acute) Type 2 diabetes mellitus with foot ulcer (Acute) Sepsis (Acute) Osteomyelitis (Acute) Cellulitis of lower extremity (Acute) Left foot ulcer s/p I&D with bone debridement and revision of amputation on 04/11/[address] Torres Left foot osteomyelitis Left foot cellulitis bacteremia Diabetes with neuropathy History of transmetatarsal amputation left foot Patient seen and examined bedside Foot is looking worse with significant purulent drainage and haro tissue noted at plantar left foot ulcer. Incision site is warm with sutures intact Blood cultures are positive getting repeat ones today White blood cell count of 7.8 post op XR reviewed MRI showed abscess and OM of 5th metatarsal and medial cuneiform. In OR multiple soft tissue abscesses were found as well as pus from medullary cannal of 5th metatarsal bone. Upon completion of surgery no further pus was expressed. Since operative I&D daily dressing changes further purulent drainage was expressed from the plantar ulceration. With today about 20 cc expressed from hindfoot area Please try to boost patient so foot isn't rubbing on footboard and keep bed fully extended. To prevent rubbing on foot Continue daily dressing changes with xeroform along incision, aquacel Ag at distal stump blister and packing into ulcer deficit. Wrap with philip wrap from foot to knee. Patient is aware and understands that worsening of infection or failure to heal and take care of his left foot could result in a BKA. Discussed with patient that this is where we are currently at. With the increase in purulent drainage and worsening appearance of the wound discussed BKA evaluation with patient. Patient was amendable to this level of amputation. Consult will be placed for further discussion and work-up. Discussed with patient the importance of proper infection and wound care management. Discussed with patient importance of NWB, proper nutrition including enough protein, and blood sugar control to optimize healing potential. Consult placed with Dr. Plata for BKA intervention. Discussed case with Dr. Plata. LEAS showed right ROB of 1.42 and TBI 0.43 and left ROB 1.12 and TBI unable to be obtained as there are no toes to left foot. PT and DP bilateral were triphasic Continue IV antibiotics Continue wound care Will continue to monitor for further purulent drainage. Will consider repeat I&D pending BKA work-up. May need to return to the OR for further I&D to control the infection so does not track to level of BKA or a bedside procedure to better manage and drain the abscesses. We will continue to monitor with twice daily dressing changes at the moment Podiatry will continue to follow. Please contact if any questions or concerns.
--- NOTE | 2020-04-13 10:13 | PN.ID_ITS ---
Patient Problems: Active and Suspected Problems Redness of the left leg and foot (Acute) Type 2 diabetes mellitus with foot ulcer (Acute) Sepsis (Acute) Osteomyelitis (Acute) Cellulitis of lower extremity (Acute) Subjective: Feeling ok, no feeling in feet, no fever - Physical Exam Vitals/I&O's: Vital Signs Temp Pulse Resp BP Pulse Ox 99 F 71 16 130/63 H 95 04/13/20 07:59 04/13/20 07:59 04/13/20 08:40 04/13/20 07:59 04/13/20 07:59 Oxygen Flow Rate (L/min) 97 Oxygen Delivery Method Room Air Weight: 82.1 kg Body Mass Index (BMI) 23.8 Finger Stick Blood Glucose 89 Intake and Output for Last 24 Hours 04/11/20 04/12/20 04/13/20 23:59 23:59 23:59 Intake Total 1180.50 / 1660.50 4436.5 / 4736.5 1885 / 1885 Output Total 1525 / 1975 1200 / 1200 1075 / 1075 Balance -344.50 / -314.50 3236.5 / 3536.5 810 / 810 General: Alert, Cooperative, No apparent distress Lungs: Clear to auscultation, Normal air movement Cardiovascular: Regular rate, Regular Rhythm Abdomen: Soft, Non Tender, Non-Distended Skin: Ulcer/ Wound - L foot with large wound Microbiology Past 72 Hours 04/11/20 18:42 Wound - Left Foot Gram Stain - Final 04/11/20 18:42 Wound - Left Foot Wound Culture - Preliminary Staphylococcus aureus Alpha hemolytic organism 04/11/20 18:46 Bone - Left Foot Gram Stain - Final 04/11/20 18:46 Bone - Left Foot Wound Culture - Preliminary Staphylococcus aureus Staphylococcus species 04/11/20 18:45 Bone - Left Foot Gram Stain - Final 04/11/20 18:45 Bone - Left Foot Wound Culture - Preliminary Staphylococcus aureus Alpha hemolytic organism 04/11/20 07:20 Wound Abcess - Left Foot Gram Stain - Final 04/11/20 07:20 Wound Abcess - Left Foot Wound Culture - Preliminary Staphylococcus aureus Gram positive organism Gram positive nuha Gram negative nuha 04/11/20 04:30 Blood Culture (Wb) - Right Hand Bacteria Detection (PCR) - Preliminary Staphylococcus aureus 04/11/20 04:30 Blood Culture (Wb) - Right Hand Blood Culture - Preliminary Meth. resistant Staph. aureus Gram positive organism 04/12/20 16:40 Stool C. difficile DNA Amplification - Final 04/11/20 02:58 Blood Culture (Wb) - Anticubital Left Blood Culture - Preliminary Staphylococcus aureus Gram positive organism Alpha hemolytic organism 04/11/20 08:05 Urine, Clean Catch Urine Culture - Final Mixed Gram Positive Organisms 04/11/20 04:30 Mucosa - Nose SARS-CoV-2 Antigen (Rapid) - Final Laboratory Results 04/13/20 06:50: WBC 7.8, RBC 4.54 L, Hgb 11.3 L, Hct 36.2 L, MCV 79.7 L, MCH 24.9 L, MCHC 31.2 L, RDW Std Deviation 42.8, RDW Coeff of Jesus 14.6, Plt Count 241, MPV 10.4, Immature Gran % (Auto) 0.400, Neut % (Auto) 68.6, Lymph % (Auto) 13.8 L, [place] % (Auto) 13.1 H, Eos % (Auto) 3.3, Baso % (Auto) 0.8, Absolute Neuts (auto) 5.4, Absolute Lymphs (auto) 1.08, Nucleated RBC % 0 04/13/20 06:50: Sodium 137, Potassium 3.1 L, Chloride 110 H, Carbon Dioxide 22.0, Anion Gap 5, BUN 10, Creatinine 0.76, Estim Creat Clear Calc 109.51, Est GFR (MDRD) Af Amer 132, Est GFR (MDRD) Non-Af 109, BUN/Creatinine Ratio 13.2, Glucose 93, Calcium 7.7 L Current Medications Acetaminophen (Acetaminophen 325 Mg Tablet) 650 mg PO Q6H PRN PRN PRN Reason: Temp > 100.4 F Last Admin: 04/12/20 05:00 Dose: 650 mg Documented by: Atorvastatin Calcium (Atorvastatin Calcium 40 Mg Tablet) 40 mg PO QHS [facility] Last Admin: 04/12/20 22:03 Dose: 40 mg Documented by: Duloxetine HCl (Duloxetine Hcl 30 Mg Capsule) 30 mg PO DAILY [facility] Last Admin: 04/13/20 07:44 Dose: 30 mg Documented by: Enoxaparin Sodium (Enoxaparin 40 Mg/0.4 Ml Syringe) 40 mg SC DAILY [facility] Last Admin: 04/13/20 07:44 Dose: 40 mg Documented by: Sodium Chloride () 250 mls @ 15 mls/hr IV .[id number] PRN PRN Reason: Saline Flush Last Admin: 04/12/20 13:55 Dose: 15 mls/hr Documented by: Sodium Chloride () 250 mls @ 15 mls/hr IV .[id number] PRN PRN Reason: Additional IVPB Infusion Sodium Chloride () 1,000 mls @ 100 mls/hr IV .Q10H [facility] Last Admin: 04/13/20 07:44 Dose: 100 mls/hr Documented by: Piperacillin Sod/Tazobactam (Sod 3.375 gm/ Sodium Chloride) 50 mls @ 12.5 mls/hr IV Q8 [facility] Last Infusion: 04/13/20 09:51 Dose: Infused Documented by: Sodium Chloride () 250 mls @ 15 mls/hr IV .[id number] PRN PRN Reason: Additional IVPB Infusion Vancomycin IV Pharmacy to Dose (1 ea/ Sodium Chloride) 500 mls @ 250 mls/hr IV X1 PRN; Protocol PRN Reason: Rx to Dose Vancomycin HCl 1,750 mg/ (Sodium Chloride) 535 mls @ 180 mls/hr IV Q12H [facility] Last Infusion: 04/13/20 01:15 Dose: Infused Documented by: L-Arginine/L-Glutamine/Calcium HMB ([place] (Unflavored) Packet) [address] [facility] Last Admin: 04/13/20 07:47 Dose: 1 packet Documented by: Levothyroxine Sodium (Levothyroxine 75 Mcg Tablet) 75 mcg PO DAILY@0600 [facility] Last Admin: 04/13/20 05:15 Dose: 75 mcg Documented by: Metoprolol Tartrate (Metoprolol Tartrate 25 Mg Tablet) 25 mg PO BID [facility] Last Admin: 04/13/20 07:44 Dose: 25 mg Documented by: Morphine Sulfate (Morphine 2 Mg/Ml Syringe) 2 mg IV Q3H PRN PRN PRN Reason: Pain Score 6-10 Ondansetron HCl (Ondansetron 4 Mg/2 Ml Vial) 4 mg IV Q8H PRN PRN PRN Reason: NAUSEA/VOMITING Last Admin: 04/13/20 07:43 Dose: 4 mg Documented by: Sodium Chloride (0.9% Saline Lock 10 Ml Syringe) 10 - 40 ml IV UD PRN PRN Reason: SALINE FLUSH Last Admin: 04/13/20 07:43 Dose: 10 ml Documented by: Medical Necessity - Tobacco Use Smoking Status: Current every day smoker Tobacco Use: Cigarettes Route of nutrition/ use of supplements: [] Nutritional Intake: [] IV Site: [] Waggoner Catheter: [] - Assessment/Plan Antibiotics: [] Assessment/Plan: [] Active and Suspected Problems Redness of the left leg and foot (Acute) Type 2 diabetes mellitus with foot ulcer (Acute) Sepsis (Acute) Osteomyelitis (Acute) Cellulitis of lower extremity (Acute) severe sepsis due to MRSA bacteremia per pcr from L foot osteo - now s/p OR 04/[address] Torers. Repeat bcx today, no veg seen on TTE. Cont vanc/zosyn. More purulence expressed from foot today, agree with plan for ortho eval for BKA. Will follow, d/w Dr. Torres
--- NOTE | 2020-04-13 10:34 | CASEMGMT ---
Social Work Per Dr. Almendarez patient to have consult to ortho for possible BKA. Spoke with patient in room. Patient confirms that [facility] is plan for discharge when patient is cleared. Patient then states I just need some good luck. Active support and listening provided. Telephone call to Jaelyn Arnett. Voicemail left requesting return phone call to inquired about possible admission once patient is medically cleared. Will continue to follow. Maurice Sauzo MSW, SAMS
--- NOTE | 2020-04-13 11:27 | PN_ITS ---
Patient Problems: Active and Suspected Problems Redness of the left leg and foot (Acute) Type 2 diabetes mellitus with foot ulcer (Acute) Sepsis (Acute) Osteomyelitis (Acute) Cellulitis of lower extremity (Acute) Subjective: Doing well today, no significant pain in either extremity. Podiatry did evaluate the wound and noticed more significant pus coming out and therefore they recommended BKA at this time. Vitals/I&O's: Vital Signs Temp Pulse Resp BP Pulse Ox 99 F 71 16 130/63 H 95 04/13/20 07:59 04/13/20 07:59 04/13/20 08:40 04/13/20 07:59 04/13/20 07:59 Oxygen Flow Rate (L/min) 97 Oxygen Delivery Method Room Air Weight: 180 lb 15.992 oz Body Mass Index (BMI) 23.8 Finger Stick Blood Glucose 89 Intake and Output for Last 24 Hours 04/11/20 04/12/20 04/13/20 23:59 23:59 23:59 Intake Total 1180.50 / 1660.50 4436.5 / 4736.5 1885 / 1885 Output Total 1525 / 1975 1200 / 1200 1075 / 1075 Balance -344.50 / -314.50 3236.5 / 3536.5 810 / 810 General: Alert, Oriented x3, Cooperative, No apparent distress HEENT: Atraumatic, PERRLA, EOMI, Normocephalic Oral: Moist Mucosa Neck: Supple, No JVD Lungs: Normal air movement, No rhonchi, No wheeze, No rales, Diminished Cardiovascular: Regular rate, Regular Rhythm, Normal S1, Normal S2, No murmurs Abdomen: Soft, Non Tender, Non-Distended, No Hepato-splenomegaly Extremities: Capillary Refill Less than 3 Seconds, Edema Skin: Incision - Left foot incision is dressed Neurological: Neuro grossly intact, Sensory exam intact to light touch and pain Psych/Mental Status: Normal Affect, Appropriate Microbiology Past 72 Hours 04/11/20 07:20 Wound Abcess - Left Foot Gram Stain - Final 04/11/20 07:20 Wound Abcess - Left Foot Wound Culture - Preliminary Staphylococcus aureus Alpha hemolytic organism Gram positive nuha Gram negative nuha 04/11/20 18:42 Wound - Left Foot Gram Stain - Final 04/11/20 18:42 Wound - Left Foot Wound Culture - Preliminary Staphylococcus aureus Alpha hemolytic organism 04/11/20 18:46 Bone - Left Foot Gram Stain - Final 04/11/20 18:46 Bone - Left Foot Wound Culture - Preliminary Staphylococcus aureus Staphylococcus species 04/11/20 18:45 Bone - Left Foot Gram Stain - Final 04/11/20 18:45 Bone - Left Foot Wound Culture - Preliminary Staphylococcus aureus Alpha hemolytic organism 04/11/20 04:30 Blood Culture (Wb) - Right Hand Bacteria Detection (PCR) - Preliminary Staphylococcus aureus 04/11/20 04:30 Blood Culture (Wb) - Right Hand Blood Culture - Preliminary Meth. resistant Staph. aureus Gram positive organism 04/12/20 16:40 Stool C. difficile DNA Amplification - Final 04/11/20 02:58 Blood Culture (Wb) - Anticubital Left Blood Culture - Preliminary Staphylococcus aureus Gram positive organism Alpha hemolytic organism 04/11/20 08:05 Urine, Clean Catch Urine Culture - Final Mixed Gram Positive Organisms 04/11/20 04:30 Mucosa - Nose SARS-CoV-2 Antigen (Rapid) - Final Laboratory Results 04/13/20 06:50: WBC 7.8, RBC 4.54 L, Hgb 11.3 L, Hct 36.2 L, MCV 79.7 L, MCH 24.9 L, MCHC 31.2 L, RDW Std Deviation 42.8, RDW Coeff of Jesus 14.6, Plt Count 241, MPV 10.4, Immature Gran % (Auto) 0.400, Neut % (Auto) 68.6, Lymph % (Auto) 13.8 L, [place] % (Auto) 13.1 H, Eos % (Auto) 3.3, Baso % (Auto) 0.8, Absolute Neuts (auto) 5.4, Absolute Lymphs (auto) 1.08, Nucleated RBC % 0 04/13/20 06:50: Sodium 137, Potassium 3.1 L, Chloride 110 H, Carbon Dioxide 22.0, Anion Gap 5, BUN 10, Creatinine 0.76, Estim Creat Clear Calc 109.51, Est GFR (MDRD) Af Amer 132, Est GFR (MDRD) Non-Af 109, BUN/Creatinine Ratio 13.2, Glucose 93, Calcium 7.7 L Current Medications Acetaminophen (Acetaminophen 325 Mg Tablet) 650 mg PO Q6H PRN PRN PRN Reason: Temp > 100.4 F Last Admin: 04/12/20 05:00 Dose: 650 mg Documented by: Atorvastatin Calcium (Atorvastatin Calcium 40 Mg Tablet) 40 mg PO QHS [facility] Last Admin: 04/12/20 22:03 Dose: 40 mg Documented by: Duloxetine HCl (Duloxetine Hcl 30 Mg Capsule) 30 mg PO DAILY [facility] Last Admin: 04/13/20 07:44 Dose: 30 mg Documented by: Enoxaparin Sodium (Enoxaparin 40 Mg/0.4 Ml Syringe) 40 mg SC DAILY [facility] Last Admin: 04/13/20 07:44 Dose: 40 mg Documented by: Sodium Chloride () 250 mls @ 15 mls/hr IV .[id number] PRN PRN Reason: Saline Flush Last Admin: 04/12/20 13:55 Dose: 15 mls/hr Documented by: Sodium Chloride () 250 mls @ 15 mls/hr IV .[id number] PRN PRN Reason: Additional IVPB Infusion Sodium Chloride () 1,000 mls @ 100 mls/hr IV .Q10H [facility] Last Admin: 04/13/20 07:44 Dose: 100 mls/hr Documented by: Piperacillin Sod/Tazobactam (Sod 3.375 gm/ Sodium Chloride) 50 mls @ 12.5 mls/hr IV Q8 [facility] Last Infusion: 04/13/20 09:51 Dose: Infused Documented by: Sodium Chloride () 250 mls @ 15 mls/hr IV .[id number] PRN PRN Reason: Additional IVPB Infusion Vancomycin IV Pharmacy to Dose (1 ea/ Sodium Chloride) 500 mls @ 250 mls/hr IV X1 PRN; Protocol PRN Reason: Rx to Dose Vancomycin HCl 1,750 mg/ (Sodium Chloride) 535 mls @ 180 mls/hr IV Q12H [facility] Last Admin: 04/13/20 10:31 Dose: 180 mls/hr Documented by: L-Arginine/L-Glutamine/Calcium HMB (Robert (Unflavored) Packet) 1 packet PO BIDCM [facility] Last Admin: 04/13/20 07:47 Dose: 1 packet Documented by: Levothyroxine Sodium (Levothyroxine 75 Mcg Tablet) 75 mcg PO DAILY@0600 [facility] Last Admin: 04/13/20 05:15 Dose: 75 mcg Documented by: Metoprolol Tartrate (Metoprolol Tartrate 25 Mg Tablet) 25 mg PO BID [facility] Last Admin: 04/13/20 07:44 Dose: 25 mg Documented by: Morphine Sulfate (Morphine 2 Mg/Ml Syringe) 2 mg IV Q3H PRN PRN PRN Reason: Pain Score 6-10 Ondansetron HCl (Ondansetron 4 Mg/2 Ml Vial) 4 mg IV Q8H PRN PRN PRN Reason: NAUSEA/VOMITING Last Admin: 04/13/20 07:43 Dose: 4 mg Documented by: Sodium Chloride (0.9% Saline Lock 10 Ml Syringe) 10 - 40 ml IV UD PRN PRN Reason: SALINE FLUSH Last Admin: 04/13/20 07:43 Dose: 10 ml Documented by: STROKE Vital Signs/Narrative: Vital Signs Temp Pulse Resp BP Pulse Ox 04/13/20 08:40 16 04/13/20 07:59 99 F 71 16 130/63 H 95 04/13/20 07:44 80 04/13/20 07:31 95 04/13/20 07:29 80 Medical Necessity - Tobacco Use Smoking Status: Current every day smoker Tobacco Use: Cigarettes Assessment/Plan All Active Problems Redness of the left leg and foot (Acute) Type 2 diabetes mellitus with foot ulcer (Acute) Sepsis (Acute) Osteomyelitis (Acute) Cellulitis of lower extremity (Acute) 1. Left fifth metatarsal osteomyelitis with abscess/DM 2/staph bacteremia -We will continue managing his blood sugars closely and make appropriate adjustments if necessary -He was currently on Zosyn we will add vancomycin secondary to the positive staph PCR, repeat blood cultures are pending -Wound cultures are pending, most are showing staph aureus -Given the increase in purulence coming from the wound will consult Dr. Plata for left BKA -PT/OT after surgery and disposition likely to SNF 2. CAD status post stents/HTN/HLD -Blood pressures are stable -Continue with metoprolol and Lipitor 3. Anxiety/depression -Stable -Continue with Cymbalta, if he does have a reaction to the vancomycin will have to decrease the dose or discontinue altogether his Cymbalta until after he completes his course DVT: Lovenox Inpatient E&M: 94629 Subs Hosp L2
[2020-04-13 12:47] LABS: Magnesium 1.8 mg/dL (1.6-2.6); Phosphorus 1.9 mg/dL (2.5-4.9)
[2020-04-13] MEDS: Atorvastatin Calcium 40 MG Tablet PO (21:42)
[2020-04-13 23:25] LABS: Vancomycin, Trough Level 12.8 ug/mL (5.0-15.0)
[2020-04-14] VITALS (7 sets, daily range): BP systolic 124–139; BP diastolic 66–79; PULSE 63–75; RESP 18–19; TEMP 36.2–37.2; O2SAT 94–96
[2020-04-14] MEDS: 0.9% Normal Saline 1,000 ML 100 ML IV (02:26)
--- NOTE | 2020-04-14 03:02 | PCM.RX.CS ---
Consult Pharmacy has been consulted to manage selected antiobiotic: Vancomycin Suspected Infection: Osteomyelitis Prior Doses of Antibiotics Received/Current Regimen: Medications Vancomycin HCl 2,000 mg/ (Sodium Chloride) 540 mls @ 180 mls/hr IV Q12H [facility] Discontinued Medications Vancomycin HCl 1,750 mg/ (Sodium Chloride) 535 mls @ 180 mls/hr IV Q12H [facility] Last Admin: 04/14/20 02:09 Dose: Infused Labs: Sodium 137 mmol/L (136-145) 04/13/20 06:50 Potassium 3.1 mmol/L (3.5-5.1) L 04/13/20 06:50 Chloride 110 mmol/L (98-107) H 04/13/20 06:50 Carbon Dioxide 22.0 mmol/L (21.0-32.0) 04/13/20 06:50 Anion Gap 5 (5-15) 04/13/20 06:50 BUN 10 mg/dL (7-18) 04/13/20 06:50 Creatinine 0.76 mg/dL (0.70-1.30) 04/13/20 06:50 Est GFR (MDRD) Af Amer 132 mL/min (>60) 04/13/20 06:50 Est GFR (MDRD) Non-Af 109 mL/min (>60) 04/13/20 06:50 BUN/Creatinine Ratio 13.2 RATIO (10-20) 04/13/20 06:50 Glucose 93 mg/dL (74-106) 04/13/20 06:50 Vancomycin Trough 12.8 ug/mL (5.0-15.0) 04/13/20 22:29 Microbiology: Microbiology 04/11/20 04:30 Blood Culture (Wb) - Right Hand Bacteria Detection (PCR) - Final Staphylococcus aureus mecA Resistance Marker 04/11/20 04:30 Blood Culture (Wb) - Right Hand Blood Culture - Preliminary Meth. resistant Staph. aureus Gram positive organism 04/11/20 07:20 Wound Abcess - Left Foot Gram Stain - Final 04/11/20 07:20 Wound Abcess - Left Foot Wound Culture - Preliminary Staphylococcus aureus Alpha hemolytic organism Gram positive nuha Gram negative nuha 04/11/20 07:20 Wound Abcess - Left Foot Anaerobic Culture - Preliminary Checking for anaerobes, further studies to follow. 04/12/20 16:40 Stool Enteric Bacteriology - Final 04/11/20 18:42 Wound - Left Foot Gram Stain - Final 04/11/20 18:42 Wound - Left Foot Wound Culture - Preliminary Staphylococcus aureus Alpha hemolytic organism 04/11/20 18:46 Bone - Left Foot Gram Stain - Final 04/11/20 18:46 Bone - Left Foot Wound Culture - Preliminary Staphylococcus aureus Staphylococcus species 04/11/20 18:45 Bone - Left Foot Gram Stain - Final 04/11/20 18:45 Bone - Left Foot Wound Culture - Preliminary Staphylococcus aureus Alpha hemolytic organism 04/12/20 16:40 Stool C. difficile DNA Amplification - Final 04/11/20 02:58 Blood Culture (Wb) - Anticubital Left Blood Culture - Preliminary Staphylococcus aureus Gram positive organism Alpha hemolytic organism 04/11/20 08:05 Urine, Clean Catch Urine Culture - Final Mixed Gram Positive Organisms 04/11/20 04:30 Mucosa - Nose SARS-CoV-2 Antigen (Rapid) - Final Weight used for dosin.1 kg Estimated Creatinine Clearance: 109.5 Goal Trough: 15-20 mcg/mL Pharmacy Plan for Drug Dosing: Vancomycin trough level of 12.8 was below the target range of 15-20. Dosing calculator suggested increase to 2000mg q12h. Will re-draw a trough prior to 4th dose of new regimen. Pharmacy Service will continue to monitor and adjust dosing as required. Follow-Up Labs: Trough Vancomycin Labs to be done on [date and time ordered]: 04/15/20 @3426
[2020-04-14] MEDS: Levothyroxine 75 MCG Tablet PO (06:10)
[2020-04-14 06:43] LABS: Absolute Lymphocyte Count 1.17 X10^3/uL (0.83-4.51); Absolute Neutrophil Count 5.3 X10^3/uL (2.0-7.7); Basophil# 0.09 X10^3/uL; Basophil% 1.1 % (0-1); Eosinophil# 0.33 X10^3/uL; Eosinophils% 4.2 % (0-5); Hematocrit 36.3 % (40-54); Hemoglobin 11.5 g/dL (13.0-16.5); Lymphocyte # 1.17 X10^3/ul (4.0); Lymphocyte % 14.9 % (19-41); Mean Corp Hgb Conc 31.7 g/dL (32-36); Mean Corpuscular Hgb 24.8 pg (27.0-32.0); Mean Corpuscular Volume 78.4 fL (80-94); Mean Platelet Vol. 10.4 fl (6.2-12.0); Monocyte% 11.4 % (0-10); NRBC Flagged by Analyzer 0 % (0-5); Neutrophil # 5.34 X10^3/uL (2.7-7.7); Neutrophil % 67.9 % (47-70); Platelet Count 319 K/mm3 (150-450); RBC Distribution Width CV 14.6 % (11.6-14.6); RBC Distribution Width SD 42.2 fl (35.1-43.9); Red Blood Count 4.63 M/mm3 (4.6-6.2); White Blood Count 7.9 K/mm3 (4.4-11.0)
[2020-04-14 07:05] LABS: Anion Gap 7 (5-15); BUN 10 mg/dL (7-18); BUN/Creat Ratio 14.7 RATIO (10-20); Calcium,Total 7.8 mg/dL (8.5-10.1); Chloride 109 mmol/L (98-107); Creatinine, Serum 0.68 mg/dL (0.70-1.30); EST Glomerular Filtration Rate 124 mL/min (>60); Est Glom Filt Rate - Afr Amer 151 mL/min (>60); Glucose 83 mg/dL (74-106); Phosphorus 2.5 mg/dL (2.5-4.9); Potassium 3.1 mmol/L (3.5-5.1); Sodium Level 139 mmol/L (136-145)
--- NOTE | 2020-04-14 07:42 | PN_ITS ---
Patient Problems: Active and Suspected Problems Redness of the left leg and foot (Acute) Type 2 diabetes mellitus with foot ulcer (Acute) Sepsis (Acute) Osteomyelitis (Acute) Cellulitis of lower extremity (Acute) Subjective: Patient seen and examined bedside. Patient denies any new pedal complaints. Patient denies any nausea, fever, chills, chest pain, shortness of breath, cough, streaking, purulence, vomiting. No pain to left foot - Physical Exam Vitals/I&O's: Vital Signs Temp Pulse Resp BP Pulse Ox 98.5 F 63 18 135/66 H 94 04/14/20 03:15 04/14/20 03:15 04/14/20 03:15 04/14/20 03:15 04/14/20 03:15 Oxygen Flow Rate (L/min) 97 Oxygen Delivery Method Room Air Weight: 82.1 kg Body Mass Index (BMI) 23.8 Finger Stick Blood Glucose 89 Intake and Output for Last 24 Hours 04/12/20 04/13/20 04/14/20 23:59 23:59 23:59 Intake Total 4436.5 / 4736.5 4545.17 / 5045.17 2293.33 / 2293.33 Output Total 1200 / 1200 4275 / 5775 3050 / 3050 Balance 3236.5 / 3536.5 270.17 / -729.83 -756.67 / -756.67 General: Alert, Oriented x3 HEENT: Atraumatic Extremities: No clubbing, No cyanosis, Capillary Refill Less than 3 Seconds, No Calf Tenderness, Edema - Left lower extremity much improved still present though, Peripheral Pulses Normal Skin: Ulcer/ Wound - Left plantar foot approximately 10 cc of purulent drainage expressed today. Wound is not as great as yesterday there is still some odor erythema probes to prone tracking to plantar hindfoot some purulence expressed from the dorsal foot through incision line as well surrounding erythema improved, Incision - Sutures intact skin well coapted Musculoskeletal: - - Left foot partial amputation Neurological: - - Lack of epicritic sensation consistent with neuropathy Psych/Mental Status: Normal Affect, Appropriate Microbiology Past 72 Hours 04/11/20 18:45 Bone - Left Foot Gram Stain - Final 04/11/20 18:45 Bone - Left Foot Wound Culture - Preliminary Meth. resistant Staph. aureus Staphylococcus aureus#2 Alpha hemolytic organism 04/11/20 04:30 Blood Culture (Wb) - Right Hand Bacteria Detection (PCR) - Final Staphylococcus aureus mecA Resistance Marker 04/11/20 04:30 Blood Culture (Wb) - Right Hand Blood Culture - Preliminary Meth. resistant Staph. aureus Gram positive organism 04/11/20 07:20 Wound Abcess - Left Foot Gram Stain - Final 04/11/20 07:20 Wound Abcess - Left Foot Wound Culture - Preliminary Staphylococcus aureus Alpha hemolytic organism Gram positive nuha Gram negative nuha 04/11/20 07:20 Wound Abcess - Left Foot Anaerobic Culture - Preliminary Checking for anaerobes, further studies to follow. 04/12/20 16:40 Stool Enteric Bacteriology - Final 04/11/20 18:42 Wound - Left Foot Gram Stain - Final 04/11/20 18:42 Wound - Left Foot Wound Culture - Preliminary Staphylococcus aureus Alpha hemolytic organism 04/11/20 18:46 Bone - Left Foot Gram Stain - Final 04/11/20 18:46 Bone - Left Foot Wound Culture - Preliminary Staphylococcus aureus Staphylococcus species 04/12/20 16:40 Stool C. difficile DNA Amplification - Final 04/11/20 02:58 Blood Culture (Wb) - Anticubital Left Blood Culture - Preliminary Staphylococcus aureus Gram positive organism Alpha hemolytic organism 04/11/20 08:05 Urine, Clean Catch Urine Culture - Final Mixed Gram Positive Organisms 04/11/20 04:30 Mucosa - Nose SARS-CoV-2 Antigen (Rapid) - Final Laboratory Results 04/13/20 06:50: Phosphorus 1.9 L, Magnesium 1.8 04/13/20 22:29: Vancomycin Trough 12.8 04/14/20 06:15: WBC 7.9, RBC 4.63, Hgb 11.5 L, Hct 36.3 L, MCV 78.4 L, MCH 24.8 L, MCHC 31.7 L, RDW Std Deviation 42.2, RDW Coeff of Jesus 14.6, Plt Count 319, MPV 10.4, Immature Gran % (Auto) 0.500, Neut % (Auto) 67.9, Lymph % (Auto) 14.9 L, [place] % (Auto) 11.4 H, Eos % (Auto) 4.2, Baso % (Auto) 1.1 H, Absolute Neuts (auto) 5.3, Absolute Lymphs (auto) 1.17, Nucleated RBC % 0 04/14/20 06:15: Sodium 139, Potassium 3.1 L, Chloride 109 H, Carbon Dioxide 23.0, Anion Gap 7, BUN 10, Creatinine 0.68 L, Estim Creat Clear Calc 122.40, Est GFR (MDRD) Af Amer 151, Est GFR (MDRD) Non-Af 124, BUN/Creatinine Ratio 14.7, Glucose 83, Calcium 7.8 L, Phosphorus 2.5 Current Medications Acetaminophen (Acetaminophen 325 Mg Tablet) 650 mg PO Q6H PRN PRN PRN Reason: Temp > 100.4 F Last Admin: 04/12/20 05:00 Dose: 650 mg Documented by: Atorvastatin Calcium (Atorvastatin Calcium 40 Mg Tablet) 40 mg PO QHS [facility] Last Admin: 04/13/20 21:42 Dose: 40 mg Documented by: Duloxetine HCl (Duloxetine Hcl 30 Mg Capsule) 30 mg PO DAILY [facility] Last Admin: 04/13/20 07:44 Dose: 30 mg Documented by: Enoxaparin Sodium (Enoxaparin 40 Mg/0.4 Ml Syringe) 40 mg SC DAILY [facility] Last Admin: 04/13/20 07:44 Dose: 40 mg Documented by: Sodium Chloride () 250 mls @ 15 mls/hr IV .[id number] PRN PRN Reason: Saline Flush Last Infusion: 04/13/20 15:51 Dose: 0 mls/hr Documented by: Sodium Chloride () 250 mls @ 15 mls/hr IV .[id number] PRN PRN Reason: Additional IVPB Infusion Sodium Chloride () 1,000 mls @ 100 mls/hr IV .Q10H [facility] Last Admin: 04/14/20 02:26 Dose: 100 mls/hr Documented by: Piperacillin Sod/Tazobactam (Sod 3.375 gm/ Sodium Chloride) 50 mls @ 12.5 mls/hr IV Q8 [facility] Last Admin: 04/14/20 06:10 Dose: 12.5 mls/hr Documented by: Sodium Chloride () 250 mls @ 15 mls/hr IV .[id number] PRN PRN Reason: Additional IVPB Infusion Vancomycin IV Pharmacy to Dose (1 ea/ Sodium Chloride) 500 mls @ 250 mls/hr IV X1 PRN; Protocol PRN Reason: Rx to Dose Vancomycin HCl 2,000 mg/ (Sodium Chloride) 540 mls @ 180 mls/hr IV Q12H [facility] L-Arginine/L-Glutamine/Calcium HMB ([facility] ([facility]) [facility] Last Admin: 04/13/20 17:23 Dose: 1 packet Documented by: Levothyroxine Sodium (Levothyroxine 75 Mcg Tablet) 75 mcg PO DAILY@0600 [facility] Last Admin: 04/14/20 06:10 Dose: 75 mcg Documented by: Metoprolol Tartrate (Metoprolol Tartrate 25 Mg Tablet) 25 mg PO BID [facility] Last Admin: 04/13/20 21:42 Dose: 25 mg Documented by: Morphine Sulfate (Morphine 2 Mg/Ml Syringe) 2 mg IV Q3H PRN PRN PRN Reason: Pain Score 6-10 Nutritional Formula (Lactose Free) (Ensure Enlive 120 Ml Liquid) 120 ml PO 4X/DAY [facility] Ondansetron HCl (Ondansetron 4 Mg/2 Ml Vial) 4 mg IV Q8H PRN PRN PRN Reason: NAUSEA/VOMITING Last Admin: 04/13/20 07:43 Dose: 4 mg Documented by: Sodium Chloride (0.9% Saline Lock 10 Ml Syringe) 10 - 40 ml IV UD PRN PRN Reason: SALINE FLUSH Last Admin: 04/13/20 15:39 Dose: 20 ml Documented by: Medical Necessity - Tobacco Use Smoking Status: Current every day smoker Tobacco Use: Cigarettes Assessment/Plan All Active Problems Redness of the left leg and foot (Acute) Type 2 diabetes mellitus with foot ulcer (Acute) Sepsis (Acute) Osteomyelitis (Acute) Cellulitis of lower extremity (Acute) Left foot ulcer s/p I&D with bone debridement and revision of amputation on 04/11/[address] Torres Left foot osteomyelitis Left foot cellulitis bacteremia Diabetes with neuropathy History of transmetatarsal amputation left foot Patient seen and examined bedside Foot is looking stable as seen yesterday with about 10 cc of purulent drainage and less haro tissue noted at plantar left foot ulcer. Incision site is warm with sutures intact Blood cultures are positive follow repeat cultures and OR cultures positive for staph including MRSA White blood cell count of 7.9 post op XR reviewed MRI showed abscess and OM of 5th metatarsal and medial cuneiform. In OR multiple soft tissue abscesses were found as well as pus from medullary cannal of 5th metatarsal bone. Upon completion of surgery no further pus was expressed. Since operative I&D daily dressing changes further purulent drainage was expressed from the plantar ulceration. Please try to boost patient so foot isn't rubbing on footboard and keep bed fully extended. To prevent rubbing on foot Continue daily dressing changes with xeroform along incision and at distal stump blister and packing into ulcer deficit. Wrap with philip wrap from foot to knee. Patient is aware and understands that worsening of infection or failure to heal and take care of his left foot could result in a BKA. Discussed with patient that this is where we are currently at. With the increase in purulent drainage and worsening appearance of the wound discussed BKA evaluation with patient. Patient was amendable to this level of amputation. Consult will be placed for further discussion and work-up. Discussed with patient the importance of proper infection and wound care management. Discussed with patient importance of NWB, proper nutrition including enough protein, and blood sugar control to optimize healing potential. Consult placed with Dr. Plata for BKA intervention. Discussed case with Dr. Plata. LEAS showed right ROB of 1.42 and TBI 0.43 and left ROB 1.12 and TBI unable to be obtained as there are no toes to left foot. PT and DP bilateral were triphasic Continue IV antibiotics Continue wound care Will continue to monitor for further purulent drainage. Will consider repeat I&D pending BKA work-up. May need to return to the OR for further I&D to control the infection so does not track to level of BKA or a bedside procedure to better manage and drain the abscesses. We will continue to monitor with twice daily dressing changes at the moment. Purulent drainage seems to be under control. Do not think return to the OR for I&D of abscesses is needed at this time Podiatry will continue to follow. Please contact if any questions or concerns. This note was generated with [email or web address] software. It may contain incorrect words, spelling, and punctuation that were not noted in checking the note before signing.
[2020-04-14] MEDS: Juven (unflavored) Packet 1 PACKET PO ×2 (07:56→17:00)
--- NOTE | 2020-04-14 10:30 | CASEMGMT ---
Addendum entered by Razia Rivero 04/14/20 15:25: SW left a message for Jaelyn with [facility] that pt's plan medically is still to be determined, and to follow up w/CARLTON Pike on Friday in regard to when to start precert. LEONID Galan Addendum entered by Razia Rivero 04/14/20 14:03: SW did let pt know that [facility] can most likely take pt when he is medically ready. Pt states understanding. SW will continue to follow. LEONID Galan Addendum entered by Razia Rivero 04/14/20 11:39: SW received a call back from Jaelyn with [facility], she anticipates they will be able to take pt when ready. SW will let her know when to start the precert process. SW attempted to speak w/pt, he is sleeping. SW will continue to follow. LEONID Galan Original Note: CARLTON called Kirti at [facility], they did not yet receive the referral. CARLTON explained that pt may still need surgery, but will resend fax for their review. CARLTON did also let Kirti know pt is homeless. Kirti also confirmed they take pt's insurance. She states that pt was with them in January of 2020. CARLTON refaxed referral to [facility]. LEONID Galan
[2020-04-14] MEDS: Enoxaparin 40 MG/0.4 ML Syringe SC (10:46)
[2020-04-14] MEDS: DULoxetine Hcl 30 MG Capsule PO (10:46)
[2020-04-14] MEDS: Metoprolol Tartrate 25 MG Tablet PO ×2 (10:47→22:36)
--- NOTE | 2020-04-14 14:19 | PN_ITS ---
Patient Problems: Active and Suspected Problems Redness of the left leg and foot (Acute) Type 2 diabetes mellitus with foot ulcer (Acute) Sepsis (Acute) Osteomyelitis (Acute) Cellulitis of lower extremity (Acute) Subjective: No new issues overnight, doing well. Vitals/I&O's: Vital Signs Temp Pulse Resp BP Pulse Ox 97.1 F L 75 19 H 139/70 H 96 04/14/20 09:09 04/14/20 10:47 04/14/20 09:09 04/14/20 10:47 04/14/20 10:19 Oxygen Flow Rate (L/min) 97 Oxygen Delivery Method Room Air Weight: 180 lb 15.992 oz Body Mass Index (BMI) 23.8 Finger Stick Blood Glucose 89 Intake and Output for Last 24 Hours 04/12/20 04/13/20 04/14/20 23:59 23:59 23:59 Intake Total 4436.5 / 4736.5 4545.17 / 5045.17 4055.00 / 4055.00 Output Total 1200 / 1200 4275 / 5775 4900 / 4900 Balance 3236.5 / 3536.5 270.17 / -729.83 -845.00 / -845.00 General: Alert, Oriented x3, Cooperative, No apparent distress HEENT: Atraumatic, PERRLA, EOMI, Normocephalic Oral: Moist Mucosa Neck: Supple, No JVD Lungs: Normal air movement, No rhonchi, No wheeze, No rales, Diminished Cardiovascular: Regular rate, Regular Rhythm, Normal S1, Normal S2, No murmurs Abdomen: Soft, Non Tender, Non-Distended, No Hepato-splenomegaly Extremities: Capillary Refill Less than 3 Seconds, Edema Skin: Incision - Left foot incision is dressed Neurological: Neuro grossly intact, Sensory exam intact to light touch and pain Psych/Mental Status: Normal Affect, Appropriate Microbiology Past 72 Hours 04/11/20 07:20 Wound Abcess - Left Foot Gram Stain - Final 04/11/20 07:20 Wound Abcess - Left Foot Wound Culture - Preliminary Staphylococcus aureus Streptococcus mitis/ oralis Corynebacterium species 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 04/11/20 18:46 Bone - Left Foot Gram Stain - Final 04/11/20 18:46 Bone - Left Foot Wound Culture - Preliminary Staphylococcus aureus Alpha Hemolytic Streptococcus Gram positive nuha 04/11/20 18:46 Bone - Left Foot Anaerobic Culture - Preliminary Checking for anaerobes, further studies to follow. 04/11/20 18:45 Bone - Left Foot Gram Stain - Final 04/11/20 18:45 Bone - Left Foot Wound Culture - Preliminary Meth. resistant Staph. aureus Staphylococcus aureus#2 Alpha Hemolytic Streptococcus 04/11/20 18:45 Bone - Left Foot Anaerobic Culture - Preliminary Checking for anaerobes, further studies to follow. 04/11/20 18:42 Wound - Left Foot Gram Stain - Final 04/11/20 18:42 Wound - Left Foot Wound Culture - Preliminary Meth. resistant Staph. aureus Staphylococcus aureus#2 Alpha Hemolytic Streptococcus 04/11/20 18:42 Wound - Left Foot Anaerobic Culture - Preliminary Checking for anaerobes, further studies to follow. 04/11/20 02:58 Blood Culture (Wb) - Anticubital Left Blood Culture - Final Staphylococcus aureus Gram positive organism Alpha hemolytic organism 04/11/20 04:30 Blood Culture (Wb) - Right Hand Bacteria Detection (PCR) - Final Staphylococcus aureus mecA Resistance Marker 04/11/20 04:30 Blood Culture (Wb) - Right Hand Blood Culture - Preliminary Meth. resistant Staph. aureus Streptococcus mitis/ oralis 04/12/20 16:40 Stool Enteric Bacteriology - Final 04/12/20 16:40 Stool C. difficile DNA Amplification - Final 04/11/20 08:05 Urine, Clean Catch Urine Culture - Final Mixed Gram Positive Organisms Laboratory Results 04/13/20 22:29: Vancomycin Trough 12.8 04/14/20 06:15: WBC 7.9, RBC 4.63, Hgb 11.5 L, Hct 36.3 L, MCV 78.4 L, MCH 24.8 L, MCHC 31.7 L, RDW Std Deviation 42.2, RDW Coeff of Jesus 14.6, Plt Count 319, MPV 10.4, Immature Gran % (Auto) 0.500, Neut % (Auto) 67.9, Lymph % (Auto) 14.9 L, [place] % (Auto) 11.4 H, Eos % (Auto) 4.2, Baso % (Auto) 1.1 H, Absolute Neuts (auto) 5.3, Absolute Lymphs (auto) 1.17, Nucleated RBC % 0 04/14/20 06:15: Sodium 139, Potassium 3.1 L, Chloride 109 H, Carbon Dioxide 23.0, Anion Gap 7, BUN 10, Creatinine 0.68 L, Estim Creat Clear Calc 122.40, Est GFR (MDRD) Af Amer 151, Est GFR (MDRD) Non-Af 124, BUN/Creatinine Ratio 14.7, Glucose 83, Calcium 7.8 L, Phosphorus 2.5 Current Medications Acetaminophen (Acetaminophen 325 Mg Tablet) 650 mg PO Q6H PRN PRN PRN Reason: Temp > 100.4 F Last Admin: 04/12/20 05:00 Dose: 650 mg Documented by: Atorvastatin Calcium (Atorvastatin Calcium 40 Mg Tablet) 40 mg PO QHS [facility] Last Admin: 04/13/20 21:42 Dose: 40 mg Documented by: Duloxetine HCl (Duloxetine Hcl 30 Mg Capsule) 30 mg PO DAILY [facility] Last Admin: 04/14/20 10:46 Dose: 30 mg Documented by: Enoxaparin Sodium (Enoxaparin 40 Mg/0.4 Ml Syringe) 40 mg SC DAILY [facility] Last Admin: 04/14/20 10:46 Dose: 40 mg Documented by: Sodium Chloride () 250 mls @ 15 mls/hr IV .[id number] PRN PRN Reason: Saline Flush Last Infusion: 04/13/20 15:51 Dose: 0 mls/hr Documented by: Sodium Chloride () 250 mls @ 15 mls/hr IV .[id number] PRN PRN Reason: Additional IVPB Infusion Sodium Chloride () 1,000 mls @ 15 mls/hr IV .Q48H [facility] Last Infusion: 04/14/20 11:09 Dose: 15 mls/hr Documented by: Piperacillin Sod/Tazobactam (Sod 3.375 gm/ Sodium Chloride) 50 mls @ 12.5 mls/hr IV Q8 [facility] Last Admin: 04/14/20 13:56 Dose: 12.5 mls/hr Documented by: Sodium Chloride () 250 mls @ 15 mls/hr IV .[id number] PRN PRN Reason: Additional IVPB Infusion Vancomycin IV Pharmacy to Dose (1 ea/ Sodium Chloride) 500 mls @ 250 mls/hr IV X1 PRN; Protocol PRN Reason: Rx to Dose Vancomycin HCl 2,000 mg/ (Sodium Chloride) 540 mls @ 180 mls/hr IV Q12H [facility] Last Admin: 04/14/20 10:56 Dose: 180 mls/hr Documented by: L-Arginine/L-Glutamine/Calcium HMB (Robert (Unflavored) Packet) 1 packet PO BIDCM [facility] Last Admin: 04/14/20 07:56 Dose: 1 packet Documented by: Levothyroxine Sodium (Levothyroxine 75 Mcg Tablet) 75 mcg PO DAILY@0600 [facility] Last Admin: 04/14/20 06:10 Dose: 75 mcg Documented by: Metoprolol Tartrate (Metoprolol Tartrate 25 Mg Tablet) 25 mg PO BID [facility] Last Admin: 04/14/20 10:47 Dose: 25 mg Documented by: Morphine Sulfate (Morphine 2 Mg/Ml Syringe) 2 mg IV Q3H PRN PRN PRN Reason: Pain Score 6-10 Nutritional Formula (Lactose Free) (Ensure Enlive 120 Ml Liquid) 120 ml PO 4X/DAY [facility] Last Admin: 04/14/20 13:57 Dose: 120 ml Documented by: Ondansetron HCl (Ondansetron 4 Mg/2 Ml Vial) 4 mg IV Q8H PRN PRN PRN Reason: NAUSEA/VOMITING Last Admin: 04/13/20 07:43 Dose: 4 mg Documented by: Sodium Chloride (0.9% Saline Lock 10 Ml Syringe) 10 - 40 ml IV UD PRN PRN Reason: SALINE FLUSH Last Admin: 04/13/20 15:39 Dose: 20 ml Documented by: STROKE Vital Signs/Narrative: Vital Signs Pulse BP 04/14/20 10:47 75 139/70 H Medical Necessity - Tobacco Use Smoking Status: Current every day smoker Tobacco Use: Cigarettes Assessment/Plan All Active Problems Redness of the left leg and foot (Acute) Type 2 diabetes mellitus with foot ulcer (Acute) Sepsis (Acute) Osteomyelitis (Acute) Cellulitis of lower extremity (Acute) 1. Left fifth metatarsal osteomyelitis with MRSA and MSSA abscess/DM 2/MRSA bacteremia -We will continue managing his blood sugars closely and make appropriate adjustments if necessary -He was currently on Zosyn we will add vancomycin secondary to the positive staph PCR, repeat blood cultures are pending -Wound cultures with MRSA and MSSA -Given the increase in purulence coming from the wound will consult Dr. Plata for left BKA -PT/OT after surgery and disposition likely to SNF 2. CAD status post stents/HTN/HLD -Blood pressures are stable -Continue with metoprolol and Lipitor 3. Anxiety/depression -Stable -Continue with Cymbalta, if he does have a reaction to the vancomycin will have to decrease the dose or discontinue altogether his Cymbalta until after he completes his course DVT: Lovenox Inpatient E&M: 88804 Subs Hosp L2
--- NOTE | 2020-04-14 14:45 | PN.ID_ITS ---
Patient Problems: Active and Suspected Problems Redness of the left leg and foot (Acute) Type 2 diabetes mellitus with foot ulcer (Acute) Sepsis (Acute) Osteomyelitis (Acute) Cellulitis of lower extremity (Acute) Subjective: Feeling ok, no fever, no n/v/d. - Physical Exam Vitals/I&O's: Vital Signs Temp Pulse Resp BP Pulse Ox 97.1 F L 75 19 H 139/70 H 96 04/14/20 09:09 04/14/20 10:47 04/14/20 09:09 04/14/20 10:47 04/14/20 10:19 Oxygen Flow Rate (L/min) 97 Oxygen Delivery Method Room Air Weight: 82.1 kg Body Mass Index (BMI) 23.8 Finger Stick Blood Glucose 89 Intake and Output for Last 24 Hours 04/12/20 04/13/20 04/14/20 23:59 23:59 23:59 Intake Total 4436.5 / 4736.5 4545.17 / 5045.17 4055.00 / 4055.00 Output Total 1200 / 1200 4275 / 5775 4900 / 4900 Balance 3236.5 / 3536.5 270.17 / -729.83 -845.00 / -845.00 General: Alert, Cooperative, No apparent distress Lungs: Clear to auscultation, Normal air movement Cardiovascular: Regular rate, Regular Rhythm Abdomen: Soft, Non Tender, Non-Distended Skin: No rashes Microbiology Past 72 Hours 04/11/20 07:20 Wound Abcess - Left Foot Gram Stain - Final 04/11/20 07:20 Wound Abcess - Left Foot Wound Culture - Preliminary Staphylococcus aureus Streptococcus mitis/ oralis Corynebacterium species GNR lactose digital editor Gram negative nuha 04/11/20 07:20 Wound Abcess - Left Foot Anaerobic Culture - Preliminary Checking for anaerobes, further studies to follow. 04/11/20 18:46 Bone - Left Foot Gram Stain - Final 04/11/20 18:46 Bone - Left Foot Wound Culture - Preliminary Staphylococcus aureus Alpha Hemolytic Streptococcus Gram positive nuha 04/11/20 18:46 Bone - Left Foot Anaerobic Culture - Preliminary Checking for anaerobes, further studies to follow. 04/11/20 18:45 Bone - Left Foot Gram Stain - Final 04/11/20 18:45 Bone - Left Foot Wound Culture - Preliminary Meth. resistant Staph. aureus Staphylococcus aureus#2 Alpha Hemolytic Streptococcus 04/11/20 18:45 Bone - Left Foot Anaerobic Culture - Preliminary Checking for anaerobes, further studies to follow. 04/11/20 18:42 Wound - Left Foot Gram Stain - Final 04/11/20 18:42 Wound - Left Foot Wound Culture - Preliminary Meth. resistant Staph. aureus Staphylococcus aureus#2 Alpha Hemolytic Streptococcus 04/11/20 18:42 Wound - Left Foot Anaerobic Culture - Preliminary Checking for anaerobes, further studies to follow. 04/11/20 02:58 Blood Culture (Wb) - Anticubital Left Blood Culture - Final Staphylococcus aureus Gram positive organism Alpha hemolytic organism 04/11/20 04:30 Blood Culture (Wb) - Right Hand Bacteria Detection (PCR) - Final Staphylococcus aureus mecA Resistance Marker 04/11/20 04:30 Blood Culture (Wb) - Right Hand Blood Culture - Preliminary Meth. resistant Staph. aureus Streptococcus mitis/ oralis 04/12/20 16:40 Stool Enteric Bacteriology - Final 04/12/20 16:40 Stool C. difficile DNA Amplification - Final 04/11/20 08:05 Urine, Clean Catch Urine Culture - Final Mixed Gram Positive Organisms Laboratory Results 04/13/20 22:29: Vancomycin Trough 12.8 04/14/20 06:15: WBC 7.9, RBC 4.63, Hgb 11.5 L, Hct 36.3 L, MCV 78.4 L, MCH 24.8 L, MCHC 31.7 L, RDW Std Deviation 42.2, RDW Coeff of Jesus 14.6, Plt Count 319, MPV 10.4, Immature Gran % (Auto) 0.500, Neut % (Auto) 67.9, Lymph % (Auto) 14.9 L, [place] % (Auto) 11.4 H, Eos % (Auto) 4.2, Baso % (Auto) 1.1 H, Absolute Neuts (auto) 5.3, Absolute Lymphs (auto) 1.17, Nucleated RBC % 0 04/14/20 06:15: Sodium 139, Potassium 3.1 L, Chloride 109 H, Carbon Dioxide 23.0, Anion Gap 7, BUN 10, Creatinine 0.68 L, Estim Creat Clear Calc 122.40, Est GFR (MDRD) Af Amer 151, Est GFR (MDRD) Non-Af 124, BUN/Creatinine Ratio 14.7, Glucose 83, Calcium 7.8 L, Phosphorus 2.5 Current Medications Acetaminophen (Acetaminophen 325 Mg Tablet) 650 mg PO Q6H PRN PRN PRN Reason: Temp > 100.4 F Last Admin: 04/12/20 05:00 Dose: 650 mg Documented by: Atorvastatin Calcium (Atorvastatin Calcium 40 Mg Tablet) 40 mg PO QHS [facility] Last Admin: 04/13/20 21:42 Dose: 40 mg Documented by: Duloxetine HCl (Duloxetine Hcl 30 Mg Capsule) 30 mg PO DAILY [facility] Last Admin: 04/14/20 10:46 Dose: 30 mg Documented by: Enoxaparin Sodium (Enoxaparin 40 Mg/0.4 Ml Syringe) 40 mg SC DAILY [facility] Last Admin: 04/14/20 10:46 Dose: 40 mg Documented by: Sodium Chloride () 250 mls @ 15 mls/hr IV .[id number] PRN PRN Reason: Saline Flush Last Infusion: 04/13/20 15:51 Dose: 0 mls/hr Documented by: Sodium Chloride () 250 mls @ 15 mls/hr IV .[id number] PRN PRN Reason: Additional IVPB Infusion Sodium Chloride () 1,000 mls @ 15 mls/hr IV .Q48H [facility] Last Infusion: 04/14/20 11:09 Dose: 15 mls/hr Documented by: Piperacillin Sod/Tazobactam (Sod 3.375 gm/ Sodium Chloride) 50 mls @ 12.5 mls/ hr IV Q8 [facility] Last Admin: 04/14/20 13:56 Dose: 12.5 mls/hr Documented by: Sodium Chloride () 250 mls @ 15 mls/hr IV .[id number] PRN PRN Reason: Additional IVPB Infusion Vancomycin IV Pharmacy to Dose (1 ea/ Sodium Chloride) 500 mls @ 250 mls/hr IV X1 PRN; Protocol PRN Reason: Rx to Dose Vancomycin HCl 2,000 mg/ (Sodium Chloride) 540 mls @ 180 mls/hr IV Q12H [facility] Last Admin: 04/14/20 10:56 Dose: 180 mls/hr Documented by: L-Arginine/L-Glutamine/Calcium HMB (Robert (Unflavored) Packet) 1 packet PO BIDCM [facility] Last Admin: 04/14/20 07:56 Dose: 1 packet Documented by: Levothyroxine Sodium (Levothyroxine 75 Mcg Tablet) 75 mcg PO DAILY@0600 [facility] Last Admin: 04/14/20 06:10 Dose: 75 mcg Documented by: Metoprolol Tartrate (Metoprolol Tartrate 25 Mg Tablet) 25 mg PO BID [facility] Last Admin: 04/14/20 10:47 Dose: 25 mg Documented by: Morphine Sulfate (Morphine 2 Mg/Ml Syringe) 2 mg IV Q3H PRN PRN PRN Reason: Pain Score 6-10 Nutritional Formula (Lactose Free) (Ensure Enlive 120 Ml Liquid) 120 ml PO 4X/DAY [facility] Last Admin: 04/14/20 13:57 Dose: 120 ml Documented by: Ondansetron HCl (Ondansetron 4 Mg/2 Ml Vial) 4 mg IV Q8H PRN PRN PRN Reason: NAUSEA/VOMITING Last Admin: 04/13/20 07:43 Dose: 4 mg Documented by: Sodium Chloride (0.9% Saline Lock 10 Ml Syringe) 10 - 40 ml IV UD PRN PRN Reason: SALINE FLUSH Last Admin: 04/13/20 15:39 Dose: 20 ml Documented by: Medical Necessity - Tobacco Use Smoking Status: Current every day smoker Tobacco Use: Cigarettes Route of nutrition/ use of supplements: [] Nutritional Intake: [] IV Site: [] Waggoner Catheter: [] - Assessment/Plan Antibiotics: [] Assessment/Plan: [] Active and Suspected Problems Redness of the left leg and foot (Acute) Type 2 diabetes mellitus with foot ulcer (Acute) Sepsis (Acute) Osteomyelitis (Acute) Cellulitis of lower extremity (Acute) severe sepsis due to MRSA bacteremia per pcr from L foot osteo - now s/p OR 04/[address] Torres. Repeat bcx today, no veg seen on TTE. Cont vanc/zosyn. Dr. Plata to see for possible BKA. Will follow
--- NOTE | 2020-04-14 17:27 | PCM.CONS.GEN ---
Reason for Consult Date of Consultation: 04/14/20 Reason for Consultation: Complex nonhealing diabetic abscess ulcer left foot with osteomyelitis. REFERRING PHYSICIAN: Dr. Torres. HARDWOOD FINISHER: Dr. Plata. History of Present Illness: The patient is a 64 year old M who presents to the emergency department for worsening left foot ulceration. Patient is homeless. Patient had multiple previous surgeries to the left foot, the most recent in November, where he underwent revision transmetatarsal amputation. He was admitted on 04/11/20. Initial WBC was 21.9. Lactate was 2.5. IV antibiotics were started with Vancomycin and Zosyn. X-ray from 04/11/20 was suggestive of osteomyelitis. MRI was done on 04/11/20. It showed signal alterations of the fifth metatarsal and medial cuneiform, suggestive of osteomyelitis. Soft tissue abscess/phlegmon at the amputation stump. Neuropathic osteoarthropathy. Atrophy of the intrinsic muscles of the foot consistent with peripheral neuropathy. LEAS was done on 04/11/20. It showed normal bilateral lower extremity ankle-brachial indices and normal bilateral posterior tibial and dorsalis pedis triphasic Doppler waveforms. Abnormal right digital brachial index of 0.43, possibly temperature related or distal small vessel disease. Clinical correlation indicated. Left digital brachial indices not obtained. Dr. Torres took the patient to surgery on 04/11/20 where he underwent incision and drainage left foot with bone biopsy and debridement with revision of amputation. WBC has improved to 7.9. Lactate improved to 0.9. His HgbA1c from 04/11/20 is 5.8. He has positive blood culture showing MRSA. His operative cultures showed a polymicrobial infection with MRSA, Staphylococcus aureus, Streptococcus, and Gram negative rods. After the operative debridement, the left foot still showed purulent drainage. It was felt the left foot was not salvageable. I was asked to evaluate this patient for surgical options for treatment. Past Medical History Past Medical History (Chronic Problems): Chronic Problems History of transmetatarsal amputation of left foot (Chronic) Current smoker (Chronic) Type 2 diabetes mellitus with foot ulcer (Chronic) Homelessness (Chronic) Hypothyroidism (Chronic) History of hyperlipidemia (Chronic) History of gastroesophageal reflux (GERD) (Chronic) Deep venous thrombosis of upper extremity (Chronic) CAD (coronary artery disease) (Chronic) Benign essential hypertension (Chronic) Allergies colesevelam HCl [From WelChol] Allergy (Verified 04/11/20 02:48) Rash dicyclomine Allergy (Verified 04/11/20 02:48) Rash divalproex sodium [From Depakote] Allergy (Verified 04/11/20 02:48) Unknown rofecoxib [From Vioxx] Allergy (Verified 04/11/20 02:48) Rash vancomycin Adverse Reaction (Verified 04/11/20 02:48) Rash Home Medications: Ambulatory Orders Medication Instructions Recorded Levothyroxine [Synthroid] 75 mcg PO DAILY 09/01/13 Duloxetine HCl 30 mg PO DAILY 07/07/19 Rosuvastatin Calcium [Crestor] 20 mg PO DAILY 07/07/19 Metoprolol Tartrate 25 mg PO BID 11/23/19 Surgical History: coronary bypass surgery, - - Coronary artery stent placement April 2017, amputation of the left great toe Left TMA in November,. Psychiatric History: No pertinent psych hx Smoking Status: Current every day smoker Tobacco Use: Cigarettes Alcohol: None Drugs: None - *Family History Maternal History Items: Diabetes Paternal History Items: Cancer - Lung cancer Review of Systems Comment: Constitutional: Denies: Chills, Fever, Weight Change. HEENT: Denies: Head Aches, Sinus Congestion, Sinus Drainage. Cardiovascular: Denies: Chest Pain, Palpitations. Respiratory: Denies: Cough, Shortness of breath at rest, Sputum production. Gastrointestinal: Denies: Abdominal Pain, Nausea, Vomiting. Genitourinary: Denies: Dysuria. Musculoskeletal: Reports: Foot Pain. Denies: Joint Pain, Joint Tenderness. Skin: Reports: Wounds. Denies: Rash. Neurological: Denies: Numbness, Tingling, Focal weakness. Psychiatric: Denies: Anxiety, Depression, Homicidal Ideations, Suicidal Ideations. Hematologic/ Lymphatic: Denies: Easy Bruising, Easy Bleeding Patient Problems: Active and Suspected Problems Redness of the left leg and foot (Acute) Type 2 diabetes mellitus with foot ulcer (Acute) Sepsis (Acute) Osteomyelitis (Acute) Cellulitis of lower extremity (Acute) - Physical Exam Vitals/I&O's: General: Alert, Oriented x3. HEENT: PERRL. EOMI. Neck: Supple, nontender. No cervical adenopathy. Lungs: Clear to auscultation. Cardiovascular: Regular rate. Abdomen: Soft, nondistended. Extremities: Mild edema lower extremities. Skin: Ulcer/ Wound - left foot shows TMA sutures. Has nonhealing diabetic ulcer with purulent drainage. Redness present. Neurological: CN II-XII grossly intact. Psych/Mental Status: Normal Affect, Appropriate. Vital Signs Temp Pulse Resp BP Pulse Ox 99.0 F 70 18 124/70 H 94 04/14/20 15:09 04/14/20 15:09 04/14/20 15:09 04/14/20 15:09 04/14/20 15:09 Oxygen Flow Rate (L/min) 97 Oxygen Delivery Method Room Air Weight: 180 lb 15.992 oz Body Mass Index (BMI) 23.8 Finger Stick Blood Glucose 89 Intake and Output for Last 24 Hours 04/12/20 04/13/20 04/14/20 23:59 23:59 23:59 Intake Total 4436.5 / 4736.5 4545.17 / 5045.17 4595.00 / 4595.00 Output Total 1200 / 1200 4275 / 5775 4900 / 4900 Balance 3236.5 / 3536.5 270.17 / -729.83 -305.00 / -305.00 Microbiology Past 72 Hours 04/11/20 07:20 Wound Abcess - Left Foot Gram Stain - Final 04/11/20 07:20 Wound Abcess - Left Foot Wound Culture - Preliminary Staphylococcus aureus Streptococcus mitis/ oralis Corynebacterium species GNR lactose wood cutter Gram negative nuha 04/11/20 07:20 Wound Abcess - Left Foot Anaerobic Culture - Preliminary Checking for anaerobes, further studies to follow. 04/11/20 18:46 Bone - Left Foot Gram Stain - Final 04/11/20 18:46 Bone - Left Foot Wound Culture - Preliminary Staphylococcus aureus Alpha Hemolytic Streptococcus Gram positive nuha 04/11/20 18:46 Bone - Left Foot Anaerobic Culture - Preliminary Checking for anaerobes, further studies to follow. 04/11/20 18:45 Bone - Left Foot Gram Stain - Final 04/11/20 18:45 Bone - Left Foot Wound Culture - Preliminary Meth. resistant Staph. aureus Staphylococcus aureus#2 Alpha Hemolytic Streptococcus 04/11/20 18:45 Bone - Left Foot Anaerobic Culture - Preliminary Checking for anaerobes, further studies to follow. 04/11/20 18:42 Wound - Left Foot Gram Stain - Final 04/11/20 18:42 Wound - Left Foot Wound Culture - Preliminary Meth. resistant Staph. aureus Staphylococcus aureus#2 Alpha Hemolytic Streptococcus 04/11/20 18:42 Wound - Left Foot Anaerobic Culture - Preliminary Checking for anaerobes, further studies to follow. 04/11/20 02:58 Blood Culture (Wb) - Anticubital Left Blood Culture - Final Staphylococcus aureus Gram positive organism Alpha hemolytic organism 04/11/20 04:30 Blood Culture (Wb) - Right Hand Bacteria Detection (PCR) - Final Staphylococcus aureus mecA Resistance Marker 04/11/20 04:30 Blood Culture (Wb) - Right Hand Blood Culture - Preliminary Meth. resistant Staph. aureus Streptococcus mitis/ oralis 04/12/20 16:40 Stool Enteric Bacteriology - Final 04/12/20 16:40 Stool C. difficile DNA Amplification - Final 04/11/20 08:05 Urine, Clean Catch Urine Culture - Final Mixed Gram Positive Organisms Laboratory Results 04/13/20 22:29: Vancomycin Trough 12.8 04/14/20 06:15: WBC 7.9, RBC 4.63, Hgb 11.5 L, Hct 36.3 L, MCV 78.4 L, MCH 24.8 L, MCHC 31.7 L, RDW Std Deviation 42.2, RDW Coeff of Jesus 14.6, Plt Count 319, MPV 10.4, Immature Gran % (Auto) 0.500, Neut % (Auto) 67.9, Lymph % (Auto) 14.9 L, [place] % (Auto) 11.4 H, Eos % (Auto) 4.2, Baso % (Auto) 1.1 H, Absolute Neuts (auto) 5.3, Absolute Lymphs (auto) 1.17, Nucleated RBC % 0 04/14/20 06:15: Sodium 139, Potassium 3.1 L, Chloride 109 H, Carbon Dioxide 23.0, Anion Gap 7, BUN 10, Creatinine 0.68 L, Estim Creat Clear Calc 122.40, Est GFR (MDRD) Af Amer 151, Est GFR (MDRD) Non-Af 124, BUN/Creatinine Ratio 14.7, Glucose 83, Calcium 7.8 L, Phosphorus 2.5 Diagnostic Data Ankle X-Ray 04/11/20 03:03 IMPRESSION: Interval, Gas in the soft tissues probable abscess infection visualized erosion of the distal stump seen on the lateral view suspicious for osteomyelitis. Status post amputation of the foot through the tarsals. Marked soft tissue edema about the ankle and foot. Electronically Signed: Ashley Paul MD at 3:56 EST Tel , Service support , ADDENDUM: 04/11/20 0409 IMPRESSION: Interval, Gas in the soft tissues probable abscess infection visualized erosion of the distal stump seen on the lateral view suspicious for osteomyelitis. Status post amputation of the foot through the tarsals. Marked soft tissue edema about the ankle and foot. N.B. : The above information has been verbally conveyed by Ashley Paul MD to Yosi Holt DO, on 04/11/2020 04:02:52 (ET). Electronically Signed: Ashley Paul MD at 3:56 EST Tel , Service support , Tibia/Fibula X-Ray 04/11/20 03:03 IMPRESSION: Partial visualization of amputation of distal foot focal soft tissue edema.. No visualized fracture. Surgical clips in the medial aspect of the lower extremity compatible with vein harvest. Diffuse soft tissue edema. Electronically Signed: Ashley Paul MD at 4:09 EST Tel , Service support , Lower Extremity MRI 04/11/20 07:29 IMPRESSION: Signal alterations of the fifth metatarsal and medial cuneiform, suggestive of osteomyelitis. Soft tissue abscess/phlegmon at the amputation stump. Neuropathic osteoarthropathy. Atrophy of the intrinsic muscles of the foot consistent with peripheral neuropathy. Electronically Signed: Jose Francisco Chang MD at 11:13 EST Tel , Service support , Foot X-Ray 04/11/20 18:05 IMPRESSION: Status post amputation of the toes. Interval increase in soft tissue swelling and subcutaneous emphysema. Osteomyelitis cannot be excluded. Electronically Signed: Ben Ying DO at 22:56 EST Tel [phone], Service support , Current Medications Acetaminophen (Acetaminophen 325 Mg Tablet) 650 mg PO Q6H PRN PRN PRN Reason: Temp > 100.4 F Last Admin: 04/12/20 05:00 Dose: 650 mg Documented by: Atorvastatin Calcium (Atorvastatin Calcium 40 Mg Tablet) 40 mg PO QHS REPLACED BY [facility] Last Admin: 04/13/20 21:42 Dose: 40 mg Documented by: Duloxetine HCl (Duloxetine Hcl 30 Mg Capsule) 30 mg PO DAILY [facility]PL[facility]ED BY [facility] Last Admin: 04/14/20 10:46 Dose: 30 mg Documented by: Enoxaparin Sodium (Enoxaparin 40 Mg/0.4 Ml Syringe) 40 mg SC DAILY REPLACED BY [facility] Last Admin: 04/14/20 10:46 Dose: 40 mg Documented by: Sodium Chloride () 250 mls @ 15 mls/hr IV .[id number] PRN PRN Reason: Saline Flush Last Infusion: 04/13/20 15:51 Dose: 0 mls/hr Documented by: Sodium Chloride () 250 mls @ 15 mls/hr IV .[id number] PRN PRN Reason: Additional IVPB Infusion Sodium Chloride () 1,000 mls @ 15 mls/hr IV .Q48H REPLACED BY [facility] Last Infusion: 04/14/20 11:09 Dose: 15 mls/hr Documented by: Piperacillin Sod/Tazobactam (Sod 3.375 gm/ Sodium Chloride) 50 mls @ 12.5 mls/hr IV Q8 REPLACED BY [facility] Last Admin: 04/14/20 13:56 Dose: 12.5 mls/hr Documented by: Sodium Chloride () 250 mls @ 15 mls/hr IV .[id number] PRN PRN Reason: Additional IVPB Infusion Vancomycin IV Pharmacy to Dose (1 ea/ Sodium Chloride) 500 mls @ 250 mls/hr IV X1 PRN; Protocol PRN Reason: Rx to Dose Vancomycin HCl 2,000 mg/ (Sodium Chloride) 540 mls @ 180 mls/hr IV Q12H REPLACED BY [facility] Last Infusion: 04/14/20 15:00 Dose: Infused Documented by: L-Arginine/L-Glutamine/Calcium HMB (Robert (Unflavored) Packet) 1 packet PO BIDCM REPLACED BY [facility] Last Admin: 04/14/20 17:00 Dose: 1 packet Documented by: Levothyroxine Sodium (Levothyroxine 75 Mcg Tablet) 75 mcg PO DAILY@0600 REPLACED BY [facility] Last Admin: 04/14/20 06:10 Dose: 75 mcg Documented by: Metoprolol Tartrate (Metoprolol Tartrate 25 Mg Tablet) 25 mg PO BID REPLACED BY [facility] Last Admin: 04/14/20 10:47 Dose: 25 mg Documented by: Morphine Sulfate (Morphine 2 Mg/Ml Syringe) 2 mg IV Q3H PRN PRN PRN Reason: Pain Score 6-10 Nutritional Formula (Lactose Free) (Ensure Enlive 120 Ml Liquid) 120 ml PO 4X/DAY REPLACED BY [facility] Last Admin: 04/14/20 16:59 Dose: 120 ml Documented by: Ondansetron HCl (Ondansetron 4 Mg/2 Ml Vial) 4 mg IV Q8H PRN PRN PRN Reason: NAUSEA/VOMITING Last Admin: 04/13/20 07:43 Dose: 4 mg Documented by: Sodium Chloride (0.9% Saline Lock 10 Ml Syringe) 10 - 40 ml IV UD PRN PRN Reason: SALINE FLUSH Last Admin: 04/13/20 15:39 Dose: 20 ml Documented by: Assessment/Plan All Active Problems Abscess of left foot (Acute) MRSA (methicillin resistant Staphylococcus aureus) infection (Acute) Redness of the left leg and foot (Acute) Type 2 diabetes mellitus with foot ulcer (Acute) Sepsis (Acute) Osteomyelitis (Acute) Cellulitis of lower extremity (Acute) 1. Complex nonhealing diabetic abscess ulcer left foot. 2. Osteomyelitis. 3. Diabetes with neuropathy. 4. Sepsis. 5. History of transmetatarsal amputation left foot. 6. MRSA. 7. Smoker. 8. Homeless. MRI reviewed from 04/11/20. It showed signal alterations of the fifth metatarsal and medial cuneiform, suggestive of osteomyelitis. Soft tissue abscess/phlegmon at the amputation stump. Neuropathic osteoarthropathy. Atrophy of the intrinsic muscles of the foot consistent with peripheral neuropathy. LEAS reviewed from 04/11/20. It showed normal bilateral lower extremity ankle-brachial indices and normal bilateral posterior tibial and dorsalis pedis triphasic Doppler waveforms. Abnormal right digital brachial index of 0.43, possibly temperature related or distal small vessel disease. Clinical correlation indicated. Left digital brachial indices not obtained. Patient has a complex nonhealing diabetic abscess ulcer left foot. He had a TMA in November. Had more recent I&D of abscess on 04/11/20. He has underlying osteomyelitis. He has a polymicrobial infection with MRSA, Staphylococcus aureus, Streptococcus, and Gram negative rods involving both the soft tissue and bone. Continue IV Vancomycin and Zosyn. His WBC has improved with IV antibiotics and recent operative I&D from 21.9 down to 7.9. His HgbA1c is 5.8 on 04/11/20. At this time the left foot is not salvageable. He would benefit from a BKA. If he holds off on the BKA, he is at risk for developing a more proximal infection that may lead to a more urgent AKA. 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 Rehab is much more difficult with an AKA since the prosthesis includes the knee as well. Will schedule the BKA early next week. He will have a drain for several days. Surgery will be done under general anesthesia and tourniquet control. Patient was informed of the risks and complications of the procedure including alternatives to surgery. These were discussed with the patient personally. Patient voices understanding and wishes to proceed. Patient voices understanding that he will lose his left leg with a BKA. Encouraged patient to stop smoking as it may have deleterious effects on wound healing. Procedure Criteria Procedure Type: Elective COVID Risk Discussion: The surgeon/proceduralist and patient have discussed in detail the risk of exposure to and/or potential harm posed by the COVID-19 virus with having a surgery/procedure at this time versus the risk of delaying the surgery/procedure. It is not possible to know either the risk of delaying the surgery or procedure or chance of getting an infection with perfect accuracy, but a joint decision was made between the patient and the surgeon/proceduralist to proceed at this time with the scheduled surgery/procedure as indicated on the consent form. Inpatient E&M: 16935 Init Hosp L2 - ICD-10 - L02.612, E11.621, M86.9, A41.9, Z89.432, A49.02, F17.200, Z59.0
--- NOTE | 2020-04-14 17:37 | NURSING ---
pt added on to surgery schedule for Friday. please have in AC by 629
[2020-04-14] MEDS: 0.9% Saline Lock 10 ML Syringe IV (22:31)
[2020-04-14] MEDS: Atorvastatin Calcium 40 MG Tablet PO (22:39)
[2020-04-15] VITALS (7 sets, daily range): BP systolic 120–152; BP diastolic 72–84; PULSE 60–65; RESP 14–16; TEMP 36.6–36.9; O2SAT 93–97
[2020-04-15] MEDS: Levothyroxine 75 MCG Tablet PO (05:16)
[2020-04-15 07:03] LABS: Anion Gap 8 (5-15); BUN 12 mg/dL (7-18); BUN/Creat Ratio 19.1 RATIO (10-20); Calcium,Total 8.1 mg/dL (8.5-10.1); Chloride 109 mmol/L (98-107); Creatinine, Serum 0.63 mg/dL (0.70-1.30); EST Glomerular Filtration Rate 136 mL/min (>60); Est Glom Filt Rate - Afr Amer 165 mL/min (>60); Estimated Creatinine Clearance 132.11 ml/min; Glucose 90 mg/dL (74-106); Potassium 3.5 mmol/L (3.5-5.1); Sodium Level 138 mmol/L (136-145)
--- NOTE | 2020-04-15 10:24 | PN_ITS ---
Patient Problems: Active and Suspected Problems Redness of the left leg and foot (Acute) Type 2 diabetes mellitus with foot ulcer (Acute) Sepsis (Acute) Osteomyelitis (Acute) Cellulitis of lower extremity (Acute) Subjective: Doing well, no issues overnight. Diarrhea has significantly improved stool studies were negative Vitals/I&O's: Vital Signs Temp Pulse Resp BP Pulse Ox 97.9 F 62 14 120/72 97 04/15/20 08:59 04/15/20 08:59 04/15/20 08:59 04/15/20 08:59 04/15/20 08:59 Oxygen Flow Rate (L/min) 97 Oxygen Delivery Method Room Air Weight: 180 lb 15.992 oz Body Mass Index (BMI) 23.8 Finger Stick Blood Glucose 89 Intake and Output for Last 24 Hours 04/13/20 04/14/20 04/15/20 23:59 23:59 23:59 Intake Total 4545.17 / 5045.17 5793.33 / 5793.33 590 / 590 Output Total 4275 / 5775 7700 / 7700 Balance 270.17 / -729.83 -1906.67 / -1906.67 590 / 590 General: Alert, Oriented x3, Cooperative, No apparent distress HEENT: Atraumatic, PERRLA, EOMI, Normocephalic Oral: Moist Mucosa Neck: Supple, No JVD Lungs: Normal air movement, No rhonchi, No wheeze, No rales, Diminished Cardiovascular: Regular rate, Regular Rhythm, Normal S1, Normal S2, No murmurs Abdomen: Soft, Non Tender, Non-Distended, No Hepato-splenomegaly Extremities: Capillary Refill Less than 3 Seconds, Edema Skin: Incision - Left foot incision is dressed Neurological: Neuro grossly intact, Sensory exam intact to light touch and pain Psych/Mental Status: Normal Affect, Appropriate Microbiology Past 72 Hours 04/13/20 09:45 Blood Culture (Wb) - Right Hand Blood Culture - Preliminary No growth in 48 hours. 04/11/20 04:30 Blood Culture (Wb) - Right Hand Bacteria Detection (PCR) - Final Staphylococcus aureus mecA Resistance Marker 04/11/20 04:30 Blood Culture (Wb) - Right Hand Blood Culture - Final Meth. resistant Staph. aureus Streptococcus mitis/ oralis Staphylococcus aureus 04/11/20 18:45 Bone - Left Foot Gram Stain - Final 04/11/20 18:45 Bone - Left Foot Wound Culture - Preliminary Meth. resistant Staph. aureus Staphylococcus aureus#2 Streptococcus mitis/ oralis 04/11/20 18:45 Bone - Left Foot Anaerobic Culture - Preliminary Checking for anaerobes, further studies to follow. 04/11/20 18:46 Bone - Left Foot Gram Stain - Final 04/11/20 18:46 Bone - Left Foot Wound Culture - Preliminary Staphylococcus aureus Alpha Hemolytic Streptococcus Gram positive nuha 04/11/20 18:46 Bone - Left Foot Anaerobic Culture - Preliminary Checking for anaerobes, further studies to follow. 04/12/20 16:40 Stool Ova and Parasites - Final 04/11/20 07:20 Wound Abcess - Left Foot Gram Stain - Final 04/11/20 07:20 Wound Abcess - Left Foot Wound Culture - Preliminary Staphylococcus aureus Streptococcus mitis/ oralis Corynebacterium species Gram negative nuha Klebsiella oxytoca 04/11/20 07:20 Wound Abcess - Left Foot Anaerobic Culture - Preliminary Checking for anaerobes, further studies to follow. 04/11/20 18:42 Wound - Left Foot Gram Stain - Final 04/11/20 18:42 Wound - Left Foot Wound Culture - Preliminary Meth. resistant Staph. aureus Staphylococcus aureus#2 Alpha Hemolytic Streptococcus 04/11/20 18:42 Wound - Left Foot Anaerobic Culture - Preliminary Checking for anaerobes, further studies to follow. 04/11/20 02:58 Blood Culture (Wb) - Anticubital Left Blood Culture - Final Staphylococcus aureus Gram positive organism Alpha hemolytic organism 04/12/20 16:40 Stool Enteric Bacteriology - Final 04/12/20 16:40 Stool C. difficile DNA Amplification - Final 04/11/20 08:05 Urine, Clean Catch Urine Culture - Final Mixed Gram Positive Organisms Laboratory Results 04/15/20 06:10: Sodium 138, Potassium 3.5, Chloride 109 H, Carbon Dioxide 21.0, Anion Gap 8, BUN 12, Creatinine 0.63 L, Estim Creat Clear Calc 132.11, Est GFR (MDRD) Af Amer 165, Est GFR (MDRD) Non-Af 136, BUN/Creatinine Ratio 19.1, G lucose 90, Calcium 8.1 L Current Medications Acetaminophen (Acetaminophen 325 Mg Tablet) 650 mg PO Q6H PRN PRN PRN Reason: Temp > 100.4 F Last Admin: 04/12/20 05:00 Dose: 650 mg Documented by: Atorvastatin Calcium (Atorvastatin Calcium 40 Mg Tablet) 40 mg PO QHS COUNT INCLUDES THE [facility] Last Admin: 04/14/20 22:39 Dose: 40 mg Documented by: Duloxetine HCl (Duloxetine Hcl 30 Mg Capsule) 30 mg PO DAILY COUNT INCLUDES THE [facility] Last Admin: 04/14/20 10:46 Dose: 30 mg Documented by: Enoxaparin Sodium (Enoxaparin 40 Mg/0.4 Ml Syringe) 40 mg SC DAILY COUNT INCLUDES THE [facility] Last Admin: 04/14/20 10:46 Dose: 40 mg Documented by: Sodium Chloride () 250 mls @ 15 mls/hr IV .[id number] PRN PRN Reason: Saline Flush Last Infusion: 04/14/20 22:34 Dose: 0 mls/hr Documented by: Sodium Chloride () 250 mls @ 15 mls/hr IV .[id number] PRN PRN Reason: Additional IVPB Infusion Sodium Chloride () 1,000 mls @ 15 mls/hr IV .Q48H COUNT INCLUDES THE [facility] Last Admin: 04/14/20 22:35 Dose: Not Given Documented by: Piperacillin Sod/Tazobactam (Sod 3.375 gm/ Sodium Chloride) 50 mls @ 12.5 mls/hr IV Q8 COUNT INCLUDES THE [facility] Last Admin: 04/15/20 05:17 Dose: 12.5 mls/hr Documented by: Sodium Chloride () 250 mls @ 15 mls/hr IV .[id number] PRN PRN Reason: Additional IVPB Infusion Vancomycin IV Pharmacy to Dose (1 ea/ Sodium Chloride) 500 mls @ 250 mls/hr IV X1 PRN; Protocol PRN Reason: Rx to Dose Vancomycin HCl 2,000 mg/ (Sodium Chloride) 540 mls @ 180 mls/hr IV Q12H COUNT INCLUDES THE [facility] Last Infusion: 04/15/20 02:18 Dose: Infused Documented by: L-Arginine/L-Glutamine/Calcium HMB (Robert (Unflavored) Packet) 1 packet PO BIDCM COUNT INCLUDES THE [facility] Last Admin: 04/14/20 17:00 Dose: 1 packet Documented by: Levothyroxine Sodium (Levothyroxine 75 Mcg Tablet) 75 mcg PO DAILY@0600 COUNT INCLUDES THE [facility] Last Admin: 04/15/20 05:16 Dose: 75 mcg Documented by: Metoprolol Tartrate (Metoprolol Tartrate 25 Mg Tablet) 25 mg PO BID COUNT INCLUDES THE [facility] Last Admin: 04/14/20 22:36 Dose: 25 mg Documented by: Morphine Sulfate (Morphine 2 Mg/Ml Syringe) 2 mg IV Q3H PRN PRN PRN Reason: Pain Score 6-10 Nutritional Formula (Lactose Free) (Ensure Enlive 120 Ml Liquid) 120 ml PO 4X/DAY COUNT INCLUDES THE [facility] Last Admin: 04/14/20 22:28 Dose: 120 ml Documented by: Ondansetron HCl (Ondansetron 4 Mg/2 Ml Vial) 4 mg IV Q8H PRN PRN PRN Reason: NAUSEA/VOMITING Last Admin: 04/13/20 07:43 Dose: 4 mg Documented by: Sodium Chloride (0.9% Saline Lock 10 Ml Syringe) 10 - 40 ml IV UD PRN PRN Reason: SALINE FLUSH Last Admin: 04/14/20 22:31 Dose: 10 ml Documented by: STROKE Vital Signs/Narrative: Vital Signs Temp Pulse Resp BP Pulse Ox 04/15/20 08:59 97.9 F 62 14 120/72 97 Medical Necessity - Tobacco Use Smoking Status: Current every day smoker Tobacco Use: Cigarettes Assessment/Plan All Active Problems MRSA (methicillin resistant Staphylococcus aureus) infection (Acute) Redness of the left leg and foot (Acute) Type 2 diabetes mellitus with foot ulcer (Acute) Sepsis (Acute) Osteomyelitis (Acute) Cellulitis of lower extremity (Acute) 1. Left fifth metatarsal osteomyelitis with MRSA and MSSA abscess/DM 2/MRSA bacteremia -We will continue managing his blood sugars closely and make appropriate adjustments if necessary -He was currently on Zosyn we will add vancomycin secondary to the positive s taph PCR, repeat blood cultures are negative -Wound cultures with MRSA and MSSA -Given the increase in purulence coming from the wound will consult Dr. Plata for left BKA, plan will be for the BKA on Friday -PT/OT after surgery and disposition likely to SNF 2. CAD status post stents/HTN/HLD -Blood pressures are stable -Continue with metoprolol and Lipitor 3. Anxiety/depression -Stable -Continue with Cymbalta DVT: Lovenox Inpatient E&M: [id number] [facility] L[facility]
[2020-04-15] MEDS: Metoprolol Tartrate 25 MG Tablet PO ×2 (10:51→21:15)
[2020-04-15] MEDS: DULoxetine Hcl 30 MG Capsule PO (10:51)
[2020-04-15] MEDS: Juven (unflavored) Packet 1 PACKET PO ×2 (10:51→17:47)
[2020-04-15] MEDS: Enoxaparin 40 MG/0.4 ML Syringe SC (10:52)
--- NOTE | 2020-04-15 15:22 | PN_ITS ---
Patient Problems: Active and Suspected Problems Redness of the left leg and foot (Acute) Type 2 diabetes mellitus with foot ulcer (Acute) Sepsis (Acute) Osteomyelitis (Acute) Cellulitis of lower extremity (Acute) Subjective: Patient seen and examined bedside. Patient denies any new pedal complaints. Patient denies any nausea, fever, chills, chest pain, shortness of breath, cough, streaking, purulence, vomiting. - Physical Exam Vitals/I&O's: Vital Signs Temp Pulse Resp BP Pulse Ox 97.9 F 62 14 120/72 97 04/15/20 08:59 04/15/20 10:51 04/15/20 08:59 04/15/20 08:59 04/15/20 08:59 Oxygen Flow Rate (L/min) 97 Oxygen Delivery Method Room Air Weight: 82.1 kg Body Mass Index (BMI) 23.8 Finger Stick Blood Glucose 89 Intake and Output for Last 24 Hours 04/13/20 04/14/20 04/15/20 23:59 23:59 23:59 Intake Total 4545.17 / 5045.17 5793.33 / 5793.33 1580 / 1580 Output Total 4275 / 5775 7700 / 7700 1100 / 1100 Balance 270.17 / -729.83 -1906.67 / -1906.67 480 / 480 General: Alert, Oriented x3 HEENT: Atraumatic Extremities: No clubbing, No cyanosis, Capillary Refill Less than 3 Seconds, No Calf Tenderness, Diminished Peripheral Pulses, Edema - Left lower extremity much improved still present though Skin: Ulcer/ Wound - Left plantar foot no purulent drainage expressed today. Wound still has some odor erythema probes to prone tracking to plantar hindfoot some purulence expressed from the dorsal foot through incision line as well surrounding erythema improved, Incision - Sutures intact skin well coapted left foot stump Musculoskeletal: Muscle Wasting, - - Left foot partial amputation Neurological: - - Lack of epicritic sensation consistent with neuropathy Psych/Mental Status: Normal Affect, Appropriate Microbiology Past 72 Hours 04/11/20 18:42 Wound - Left Foot Gram Stain - Final 04/11/20 18:42 Wound - Left Foot Wound Culture - Final Meth. resistant Staph. aureus Staphylococcus aureus#2 Streptococcus mitis/ oralis 04/11/20 18:42 Wound - Left Foot Anaerobic Culture - Preliminary Checking for anaerobes, further studies to follow. 04/11/20 07:20 Wound Abcess - Left Foot Gram Stain - Final 04/11/20 07:20 Wound Abcess - Left Foot Wound Culture - Preliminary Staphylococcus aureus Streptococcus mitis/ oralis Corynebacterium species Gram negative nuha Klebsiella oxytoca 04/11/20 07:20 Wound Abcess - Left Foot Anaerobic Culture - Final Anaerobic cocci 04/13/20 09:45 Blood Culture (Wb) - Right Hand Blood Culture - Preliminary No growth in 48 hours. 04/11/20 04:30 Blood Culture (Wb) - Right Hand Bacteria Detection (PCR) - Final Staphylococcus aureus mecA Resistance Marker 04/11/20 04:30 Blood Culture (Wb) - Right Hand Blood Culture - Final Meth. resistant Staph. aureus Streptococcus mitis/ oralis Staphylococcus aureus 04/11/20 18:45 Bone - Left Foot Gram Stain - Final 04/11/20 18:45 Bone - Left Foot Wound Culture - Preliminary Meth. resistant Staph. aureus Staphylococcus aureus#2 Streptococcus mitis/ oralis 04/11/20 18:45 Bone - Left Foot Anaerobic Culture - Preliminary Checking for anaerobes, further studies to follow. 04/11/20 18:46 Bone - Left Foot Gram Stain - Final 04/11/20 18:46 Bone - Left Foot Wound Culture - Preliminary Staphylococcus aureus Alpha Hemolytic Streptococcus Gram positive nuha 04/11/20 18:46 Bone - Left Foot Anaerobic Culture - Preliminary Checking for anaerobes, further studies to follow. 04/12/20 16:40 Stool Ova and Parasites - Final 04/11/20 02:58 Blood Culture (Wb) - Anticubital Left Blood Culture - Final Staphylococcus aureus Gram positive organism Alpha hemolytic organism 04/12/20 16:40 Stool Enteric Bacteriology - Final 04/12/20 16:40 Stool C. difficile DNA Amplification - Final 04/11/20 08:05 Urine, Clean Catch Urine Culture - Final Mixed Gram Positive Organisms Laboratory Results 04/15/20 06:10: Sodium 138, Potassium 3.5, Chloride 109 H, Carbon Dioxide 21.0, Anion Gap 8, BUN 12, Creatinine 0.63 L, Estim Creat Clear Calc 132.11, Est GFR (MDRD) Af Amer 165, Est GFR (MDRD) Non-Af 136, BUN/Creatinine Ratio 19.1, Glucose 90, Calcium 8.1 L Current Medications Acetaminophen (Acetaminophen 325 Mg Tablet) 650 mg PO Q6H PRN PRN PRN Reason: Temp > 100.4 F Last Admin: 04/12/20 05:00 Dose: 650 mg Documented by: Atorvastatin Calcium (Atorvastatin Calcium 40 Mg Tablet) 40 mg PO QHS [facility] Last Admin: 04/14/20 22:39 Dose: 40 mg Documented by: Duloxetine HCl (Duloxetine Hcl 30 Mg Capsule) 30 mg PO DAILY [facility] Last Admin: 04/15/20 10:51 Dose: 30 mg Documented by: Enoxaparin Sodium (Enoxaparin 40 Mg/0.4 Ml Syringe) 40 mg SC DAILY [facility] Last Admin: 04/15/20 10:52 Dose: 40 mg Documented by: Sodium Chloride () 250 mls @ 15 mls/hr IV .[id number] PRN PRN Reason: Saline Flush Last Infusion: 04/14/20 22:34 Dose: 0 mls/hr Documented by: Sodium Chloride () 250 mls @ 15 mls/hr IV .[id number] PRN PRN Reason: Additional IVPB Infusion Sodium Chloride () 1,000 mls @ 15 mls/hr IV .Q48H [facility] Last Admin: 04/14/20 22:35 Dose: Not Given Documented by: Piperacillin Sod/Tazobactam (Sod 3.375 gm/ Sodium Chloride) 50 mls @ 12.5 mls/hr IV Q8 [facility] Last Admin: 04/15/20 13:18 Dose: 12.5 mls/hr Documented by: Sodium Chloride () 250 mls @ 15 mls/hr IV .[id number] PRN PRN Reason: Additional IVPB Infusion Vancomycin IV Pharmacy to Dose (1 ea/ Sodium Chloride) 500 mls @ 250 mls/hr IV X1 PRN; Protocol PRN Reason: Rx to Dose Vancomycin HCl 2,000 mg/ (Sodium Chloride) 540 mls @ 180 mls/hr IV Q12H [facility] Last Infusion: 04/15/20 13:52 Dose: Infused Documented by: L-Arginine/L-Glutamine/Calcium HMB (Robert (Unflavored) Packet) 1 packet PO BIDCM [facility] Last Admin: 04/15/20 10:51 Dose: 1 packet Documented by: Levothyroxine Sodium (Levothyroxine 75 Mcg Tablet) 75 mcg PO DAILY@0600 [facility] Last Admin: 04/15/20 05:16 Dose: 75 mcg Documented by: Metoprolol Tartrate (Metoprolol Tartrate 25 Mg Tablet) 25 mg PO BID [facility] Last Admin: 04/15/20 10:51 Dose: 25 mg Documented by: Morphine Sulfate (Morphine 2 Mg/Ml Syringe) 2 mg IV Q3H PRN PRN PRN Reason: Pain Score 6-10 Nutritional Formula (Lactose Free) (Ensure Enlive 120 Ml Liquid) 120 ml PO 4X/DAY [facility] Last Admin: 04/15/20 13:18 Dose: 120 ml Documented by: Ondansetron HCl (Ondansetron 4 Mg/2 Ml Vial) 4 mg IV Q8H PRN PRN PRN Reason: NAUSEA/VOMITING Last Admin: 04/13/20 07:43 Dose: 4 mg Documented by: Sodium Chloride (0.9% Saline Lock 10 Ml Syringe) 10 - 40 ml IV UD PRN PRN Reason: SALINE FLUSH Last Admin: 04/14/20 22:31 Dose: 10 ml Documented by: Medical Necessity - Tobacco Use Smoking Status: Current every day smoker Tobacco Use: Cigarettes Assessment/Plan All Active Problems MRSA (methicillin resistant Staphylococcus aureus) infection (Acute) Redness of the left leg and foot (Acute) Type 2 diabetes mellitus with foot ulcer (Acute) Sepsis (Acute) Osteomyelitis (Acute) Cellulitis of lower extremity (Acute) Left foot ulcer s/p I&D with bone debridement and revision of amputation on 04/11/[address] Torres Left foot osteomyelitis Left foot cellulitis bacteremia Diabetes with neuropathy History of transmetatarsal amputation left foot Patient seen and examined bedside Foot is looking stable Dressing was changed by nursing just prior to my arrival. Discussed with nurse the state of the wound of which she stated she was not able to express any purulent or purulent drainage. Will not redress foot as this was just changed Blood cultures are positive follow repeat cultures and OR cultures are multimicrobial and positive for staph including Staph aureus, Streptococcus mitis, Corynebacterium, gram-negative nuha, Klebsiella White blood cell count of 7.9 post op XR reviewed MRI showed abscess and OM of 5th metatarsal and medial cuneiform. In OR multiple soft tissue abscesses were found as well as pus from medullary cannal of 5th metatarsal bone. Upon completion of surgery no further pus was expressed. Since operative I&D daily dressing changes further purulent drainage was expressed from the plantar ulceration. Please try to boost patient so foot isn't rubbing on footboard and keep bed fully extended. To prevent rubbing on foot Continue daily dressing changes with xeroform along incision and at distal stump blister and packing into ulcer deficit. Wrap with philip wrap from foot to knee. Patient is aware and understands that worsening of infection or failure to heal and take care of his left foot could result in a BKA. Discussed with patient that this is where we are currently at. With the increase in purulent drainage and worsening appearance of the wound discussed BKA evaluation with patient. Patient was amendable to this level of amputation. Consult will be placed for further discussion and work-up. Discussed with patient the importance of proper infection and wound care management. Discussed with patient importance of NWB, proper nutrition including enough protein, and blood sugar control to optimize healing potential. Consult placed with Dr. Plata for BKA intervention. Discussed case with Dr. Plata. Plan for intervention early next week LEAS showed right ROB of 1.42 and TBI 0.43 and left ROB 1.12 and TBI unable to be obtained as there are no toes to left foot. PT and DP bilateral were triphasic Continue IV antibiotics Continue wound care Will continue to monitor for further purulent drainage. Purulent drainage seems to be under control with twice daily packing dressing changes. Do not believe that further I&D needs to be done prior to BKA intervention to control spread of infection. Please contact if any questions or concerns. Podiatry will continue to follow. Joselyn Torres DPM [facility] [phone] This note was generated with [employer] dictation software. It may contain incorrect words, spelling, and punctuation that were not noted in checking the note before signing.
[2020-04-15] MEDS: Acetaminophen 325 MG Tablet 650 MG PO (17:46)
[2020-04-15] MEDS: Atorvastatin Calcium 40 MG Tablet PO (21:15)
[2020-04-15 23:11] LABS: Vancomycin, Trough Level 19.7 ug/mL (5.0-15.0)
--- NOTE | 2020-04-15 23:48 | PCM.RX.CS ---
Consult Pharmacy has been consulted to manage selected antiobiotic: Vancomycin Type of Consult: Follow-up Suspected Infection: Osteomyelitis Prior Doses of Antibiotics Received/Current Regimen: Medications Vancomycin HCl 2,000 mg/ (Sodium Chloride) 540 mls @ 180 mls/hr IV Q12H [facility] Last Admin: 04/15/20 23:17 Dose: 250 mls/hr Labs: Sodium 138 mmol/L (136-145) 04/15/20 06:10 Potassium 3.5 mmol/L (3.5-5.1) 04/15/20 06:10 Chloride 109 mmol/L (98-107) H 04/15/20 06:10 Carbon Dioxide 21.0 mmol/L (21.0-32.0) 04/15/20 06:10 Anion Gap 8 (5-15) 04/15/20 06:10 BUN 12 mg/dL (7-18) 04/15/20 06:10 Creatinine 0.63 mg/dL (0.70-1.30) L 04/15/20 06:10 Est GFR (MDRD) Af Amer 165 mL/min (>60) 04/15/20 06:10 Est GFR (MDRD) Non-Af 136 mL/min (>60) 04/15/20 06:10 BUN/Creatinine Ratio 19.1 RATIO (10-20) 04/15/20 06:10 Glucose 90 mg/dL (74-106) 04/15/20 06:10 Vancomycin Trough 19.7 ug/mL (5.0-15.0) H 04/15/20 22:32 Microbiology: Microbiology 04/11/20 18:42 Wound - Left Foot Gram Stain - Final 04/11/20 18:42 Wound - Left Foot Wound Culture - Final Meth. resistant Staph. aureus Staphylococcus aureus#2 Streptococcus mitis/ oralis 04/11/20 18:42 Wound - Left Foot Anaerobic Culture - Preliminary Checking for anaerobes, further studies to follow. 04/11/20 07:20 Wound Abcess - Left Foot Gram Stain - Final 04/11/20 07:20 Wound Abcess - Left Foot Wound Culture - Preliminary Staphylococcus aureus Streptococcus mitis/ oralis Corynebacterium species Gram negative nuha Klebsiella oxytoca 04/11/20 07:20 Wound Abcess - Left Foot Anaerobic Culture - Final Anaerobic cocci 04/13/20 09:45 Blood Culture (Wb) - Right Hand Blood Culture - Preliminary No growth in 48 hours. 04/11/20 04:30 Blood Culture (Wb) - Right Hand Bacteria Detection (PCR) - Final Staphylococcus aureus mecA Resistance Marker 04/11/20 04:30 Blood Culture (Wb) - Right Hand Blood Culture - Final Meth. resistant Staph. aureus Streptococcus mitis/ oralis Staphylococcus aureus 04/11/20 18:45 Bone - Left Foot Gram Stain - Final 04/11/20 18:45 Bone - Left Foot Wound Culture - Preliminary Meth. resistant Staph. aureus Staphylococcus aureus#2 Streptococcus mitis/ oralis 04/11/20 18:45 Bone - Left Foot Anaerobic Culture - Preliminary Checking for anaerobes, further studies to follow. 04/11/20 18:46 Bone - Left Foot Gram Stain - Final 04/11/20 18:46 Bone - Left Foot Wound Culture - Preliminary Staphylococcus aureus Alpha Hemolytic Streptococcus Gram positive nuha 04/11/20 18:46 Bone - Left Foot Anaerobic Culture - Preliminary Checking for anaerobes, further studies to follow. 04/12/20 16:40 Stool Ova and Parasites - Final 04/11/20 02:58 Blood Culture (Wb) - Anticubital Left Blood Culture - Final Staphylococcus aureus Gram positive organism Alpha hemolytic organism 04/12/20 16:40 Stool Enteric Bacteriology - Final 04/12/20 16:40 Stool C. difficile DNA Amplification - Final 04/11/20 08:05 Urine, Clean Catch Urine Culture - Final Mixed Gram Positive Organisms 04/11/20 04:30 Mucosa - Nose SARS-CoV-2 Antigen (Rapid) - Final Weight used for dosin.1 kg Estimated Creatinine Clearance: 132 Goal Trough: 15-20 mcg/mL Pharmacy Plan for Drug Dosing: Vancomycin trough level of 19.7 was within target range of 15-20. Will continue current dosing of 2000mg q12h and re-draw trough 04/18/20. Pharmacy Service will continue to monitor and adjust dosing as required. Follow-Up Labs: Trough Vancomycin Labs to be done on [date and time ordered]: 04/18/20 @[id number]
[2020-04-16] VITALS (7 sets, daily range): BP systolic 122–141; BP diastolic 67–83; PULSE 56–69; RESP 16; TEMP 36.7–36.9; O2SAT 94–100
[2020-04-16] MEDS: Levothyroxine 75 MCG Tablet PO (05:23)
--- NOTE | 2020-04-16 08:50 | PCM.PN.HOSP ---
Patient Problems: Active and Suspected Problems Redness of the left leg and foot (Acute) Type 2 diabetes mellitus with foot ulcer (Acute) Sepsis (Acute) Osteomyelitis (Acute) Cellulitis of lower extremity (Acute) Subjective: No issues overnight, doing better. Feels well. Vitals/I&O's: Vital Signs Temp Pulse Resp BP Pulse Ox 98.1 F 56 L 16 126/67 H 97 04/16/20 02:16 04/16/20 02:16 04/16/20 02:16 04/16/20 02:16 04/16/20 02:16 Oxygen Flow Rate (L/min) 97 Oxygen Delivery Method Room Air Weight: 180 lb 15.992 oz Body Mass Index (BMI) 23.8 Finger Stick Blood Glucose 89 Intake and Output for Last 24 Hours 04/14/20 04/15/20 04/16/20 23:59 23:59 23:59 Intake Total 5793.33 / 5793.33 2252.25 / 2252.25 1337.75 / 1337.75 Output Total 7700 / 7700 1700 / 1700 1100 / 1100 Balance -1906.67 / -1906.67 552.25 / 552.25 237.75 / 237.75 General: Alert, Oriented x3, Cooperative, No apparent distress HEENT: Atraumatic, PERRLA, EOMI, Normocephalic Oral: Moist Mucosa Neck: Supple, No JVD Lungs: Normal air movement, No rhonchi, No wheeze, No rales, Diminished Cardiovascular: Regular rate, Regular Rhythm, Normal S1, Normal S2, No murmurs Abdomen: Soft, Non Tender, Non-Distended, No Hepato-splenomegaly Extremities: Capillary Refill Less than 3 Seconds, trace edema Skin: Incision - Left foot incision is dressed Neurological: Neuro grossly intact, Sensory exam intact to light touch and pain Psych/Mental Status: Normal Affect, Appropriate Microbiology Past 72 Hours 04/14/20 13:03 Blood Culture (Wb) - Anticubital Right Blood Culture - Preliminary No growth in 48 hours. 04/11/20 18:46 Bone - Left Foot Gram Stain - Final 04/11/20 18:46 Bone - Left Foot Wound Culture - Preliminary Staphylococcus aureus Alpha Hemolytic Streptococcus Gram positive nuha 04/11/20 18:46 Bone - Left Foot Anaerobic Culture - Preliminary Checking for anaerobes, further studies to follow. 04/11/20 18:45 Bone - Left Foot Gram Stain - Final 04/11/20 18:45 Bone - Left Foot Wound Culture - Preliminary Meth. resistant Staph. aureus Staphylococcus aureus#2 Streptococcus mitis/ oralis 04/11/20 18:45 Bone - Left Foot Anaerobic Culture - Preliminary Checking for anaerobes, further studies to follow. 04/11/20 07:20 Wound Abcess - Left Foot Gram Stain - Final 04/11/20 07:20 Wound Abcess - Left Foot Wound Culture - Preliminary Staphylococcus aureus Streptococcus mitis/ oralis Corynebacterium species Gram negative nuha Klebsiella oxytoca 04/11/20 07:20 Wound Abcess - Left Foot Anaerobic Culture - Final Anaerobic cocci 04/11/20 18:42 Wound - Left Foot Gram Stain - Final 04/11/20 18:42 Wound - Left Foot Wound Culture - Final Meth. resistant Staph. aureus Staphylococcus aureus#2 Streptococcus mitis/ oralis 04/11/20 18:42 Wound - Left Foot Anaerobic Culture - Preliminary Checking for anaerobes, further studies to follow. 04/13/20 09:45 Blood Culture (Wb) - Right Hand Blood Culture - Preliminary No growth in 48 hours. 04/11/20 04:30 Blood Culture (Wb) - Right Hand Bacteria Detection (PCR) - Final Staphylococcus aureus mecA Resistance Marker 04/11/20 04:30 Blood Culture (Wb) - Right Hand Blood Culture - Final Meth. resistant Staph. aureus Streptococcus mitis/ oralis Staphylococcus aureus 04/12/20 16:40 Stool Ova and Parasites - Final 04/11/20 02:58 Blood Culture (Wb) - Anticubital Left Blood Culture - Final Staphylococcus aureus Gram positive organism Alpha hemolytic organism 04/12/20 16:40 Stool Enteric Bacteriology - Final Laboratory Results 04/15/20 22:32: Vancomycin Trough 19.7 H Current Medications Acetaminophen (Acetaminophen 325 Mg Tablet) 650 mg PO Q6H PRN PRN PRN Reason: Temp > 100.4 F Last Admin: 04/15/20 17:46 Dose: 650 mg Documented by: Atorvastatin Calcium (Atorvastatin Calcium 40 Mg Tablet) 40 mg PO QHS [facility] Last Admin: 04/15/20 21:15 Dose: 40 mg Documented by: Duloxetine HCl (Duloxetine Hcl 30 Mg Capsule) 30 mg PO DAILY [facility] Last Admin: 04/15/20 10:51 Dose: 30 mg Documented by: Enoxaparin Sodium (Enoxaparin 40 Mg/0.4 Ml Syringe) 40 mg SC DAILY [facility] Last Admin: 04/15/20 10:52 Dose: 40 mg Documented by: Sodium Chloride () 250 mls @ 15 mls/hr IV .[id number] PRN PRN Reason: Saline Flush Last Infusion: 04/16/20 05:27 Dose: 0 mls/hr Documented by: Sodium Chloride () 250 mls @ 15 mls/hr IV .[id number] PRN PRN Reason: Additional IVPB Infusion Last Infusion: 04/15/20 23:21 Dose: 0 mls/hr Documented by: Sodium Chloride () 1,000 mls @ 15 mls/hr IV .Q48H [facility] Last Admin: 04/14/20 22:35 Dose: Not Given Documented by: Piperacillin Sod/Tazobactam (Sod 3.375 gm/ Sodium Chloride) 50 mls @ 12.5 mls/hr IV Q8 [facility] Last Admin: 04/16/20 05:23 Dose: 12.5 mls/hr Documented by: Sodium Chloride () 250 mls @ 15 mls/hr IV .[id number] PRN PRN Reason: Additional IVPB Infusion Vancomycin IV Pharmacy to Dose (1 ea/ Sodium Chloride) 500 mls @ 250 mls/hr IV X1 PRN; Protocol PRN Reason: Rx to Dose Vancomycin HCl 2,000 mg/ (Sodium Chloride) 540 mls @ 180 mls/hr IV Q12H [facility] Last Infusion: 04/16/20 02:04 Dose: Infused Documented by: L-Arginine/L-Glutamine/Calcium HMB (Robert (Unflavored) Packet) 1 packet PO BIDCM [facility] Last Admin: 04/15/20 17:47 Dose: 1 packet Documented by: Levothyroxine Sodium (Levothyroxine 75 Mcg Tablet) 75 mcg PO DAILY@0600 [facility] Last Admin: 04/16/20 05:23 Dose: 75 mcg Documented by: Metoprolol Tartrate (Metoprolol Tartrate 25 Mg Tablet) 25 mg PO BID [facility] Last Admin: 04/15/20 21:15 Dose: 25 mg Documented by: Morphine Sulfate (Morphine 2 Mg/Ml Syringe) 2 mg IV Q3H PRN PRN PRN Reason: Pain Score 6-10 Nutritional Formula (Lactose Free) (Ensure Enlive 120 Ml Liquid) 120 ml PO 4X/DAY [facility] Last Admin: 04/15/20 21:14 Dose: 120 ml Documented by: Ondansetron HCl (Ondansetron 4 Mg/2 Ml Vial) 4 mg IV Q8H PRN PRN PRN Reason: NAUSEA/VOMITING Last Admin: 04/13/20 07:43 Dose: 4 mg Documented by: Sodium Chloride (0.9% Saline Lock 10 Ml Syringe) 10 - 40 ml IV UD PRN PRN Reason: SALINE FLUSH Last Admin: 04/14/20 22:31 Dose: 10 ml Documented by: Medical Necessity - Tobacco Use Smoking Status: Current every day smoker Tobacco Use: Cigarettes Assessment/Plan All Active Problems MRSA (methicillin resistant Staphylococcus aureus) infection (Acute) Redness of the left leg and foot (Acute) Type 2 diabetes mellitus with foot ulcer (Acute) Sepsis (Acute) Osteomyelitis (Acute) Cellulitis of lower extremity (Acute) 1. Left fifth metatarsal osteomyelitis with MRSA and MSSA abscess/DM 2/MRSA bacteremia -We will continue managing his blood sugars closely and make appropriate adjustments if necessary -He was currently on Zosyn we will add vancomycin secondary to the positive staph PCR, repeat blood cultures are negative -Wound cultures with MRSA and MSSA -Given the increase in purulence coming from the wound will consult Dr. Plata for left BKA, plan will be for the BKA on Friday -PT/OT after surgery and disposition likely to SNF 2. CAD status post stents/HTN/HLD -Blood pressures are stable -Continue with metoprolol and Crestor 3. Anxiety/depression -Stable -Continue with Cymbalta DVT: Lovenox Inpatient E&M: 96030 Subs Hosp L2
--- NOTE | 2020-04-16 09:30 | PCM.PROGNOTE ---
Patient Problems: Active and Suspected Problems Redness of the left leg and foot (Acute) Type 2 diabetes mellitus with foot ulcer (Acute) Sepsis (Acute) Osteomyelitis (Acute) Cellulitis of lower extremity (Acute) Subjective: Patient seen and examined bedside. Patient denies any new pedal complaints. Patient denies any nausea, fever, chills, chest pain, shortness of breath, cough, streaking, purulence, vomiting. - Physical Exam Vitals/I&O's: Vital Signs Temp Pulse Resp BP Pulse Ox 98.1 F 56 L 16 126/67 H 97 04/16/20 02:16 04/16/20 02:16 04/16/20 02:16 04/16/20 02:16 04/16/20 02:16 Oxygen Flow Rate (L/min) 97 Oxygen Delivery Method Room Air Weight: 82.1 kg Body Mass Index (BMI) 23.8 Finger Stick Blood Glucose 89 Intake and Output for Last 24 Hours 04/14/20 04/15/20 04/16/20 23:59 23:59 23:59 Intake Total 5793.33 / 5793.33 2252.25 / 2252.25 1337.75 / 1337.75 Output Total 7700 / 7700 1700 / 1700 1100 / 1100 Balance -1906.67 / -1906.67 552.25 / 552.25 237.75 / 237.75 General: Alert, Oriented x3 HEENT: Atraumatic Extremities: No clubbing, No cyanosis, Capillary Refill Less than 3 Seconds, No Calf Tenderness, Edema - Left lower extremity improved, Peripheral Pulses Normal Skin: Ulcer/ Wound - left plantar foot 2 cc of purulent drainage expressed today. Wound still has some odor erythema probes to prone tracking to plantar hindfoot. surrounding erythema and edema improved, Incision - Sutures intact skin well coapted, - - New necrotic area noted to medial aspect of plantar wound circular in nature about 2 cm in diameter. Stable Musculoskeletal: Muscle Wasting Neurological: - - Lack of epicritic sensation consistent with neuropathy Psych/Mental Status: Normal Affect, Appropriate Microbiology Past 72 Hours 04/14/20 13:03 Blood Culture (Wb) - Anticubital Right Blood Culture - Preliminary No growth in 48 hours. 04/11/20 18:46 Bone - Left Foot Gram Stain - Final 04/11/20 18:46 Bone - Left Foot Wound Culture - Preliminary Staphylococcus aureus Alpha Hemolytic Streptococcus Gram positive nuha 04/11/20 18:46 Bone - Left Foot Anaerobic Culture - Preliminary Checking for anaerobes, further studies to follow. 04/11/20 18:45 Bone - Left Foot Gram Stain - Final 04/11/20 18:45 Bone - Left Foot Wound Culture - Preliminary Meth. resistant Staph. aureus Staphylococcus aureus#2 Streptococcus mitis/ oralis 04/11/20 18:45 Bone - Left Foot Anaerobic Culture - Preliminary Checking for anaerobes, further studies to follow. 04/11/20 07:20 Wound Abcess - Left Foot Gram Stain - Final 04/11/20 07:20 Wound Abcess - Left Foot Wound Culture - Preliminary Staphylococcus aureus Streptococcus mitis/ oralis Corynebacterium species Gram negative nuha Klebsiella oxytoca 04/11/20 07:20 Wound Abcess - Left Foot Anaerobic Culture - Final Anaerobic cocci 04/11/20 18:42 Wound - Left Foot Gram Stain - Final 04/11/20 18:42 Wound - Left Foot Wound Culture - Final Meth. resistant Staph. aureus Staphylococcus aureus#2 Streptococcus mitis/ oralis 04/11/20 18:42 Wound - Left Foot Anaerobic Culture - Preliminary Checking for anaerobes, further studies to follow. 04/13/20 09:45 Blood Culture (Wb) - Right Hand Blood Culture - Preliminary No growth in 48 hours. 04/11/20 04:30 Blood Culture (Wb) - Right Hand Bacteria Detection (PCR) - Final Staphylococcus aureus mecA Resistance Marker 04/11/20 04:30 Blood Culture (Wb) - Right Hand Blood Culture - Final Meth. resistant Staph. aureus Streptococcus mitis/ oralis Staphylococcus aureus 04/12/20 16:40 Stool Ova and Parasites - Final 04/11/20 02:58 Blood Culture (Wb) - Anticubital Left Blood Culture - Final Staphylococcus aureus Gram positive organism Alpha hemolytic organism 04/12/20 16:40 Stool Enteric Bacteriology - Final Laboratory Results 04/15/20 22:32: Vancomycin Trough 19.7 H Current Medications Acetaminophen (Acetaminophen 325 Mg Tablet) 650 mg PO Q6H PRN PRN PRN Reason: Temp > 100.4 F Last Admin: 04/15/20 17:46 Dose: 650 mg Documented by: Atorvastatin Calcium (Atorvastatin Calcium 40 Mg Tablet) 40 mg PO QHS [facility] Last Admin: 04/15/20 21:15 Dose: 40 mg Documented by: Duloxetine HCl (Duloxetine Hcl 30 Mg Capsule) 30 mg PO DAILY COUNTS INCLUDE 234 BEDS AT [facility] Last Admin: 04/15/20 10:51 Dose: 30 mg Documented by: Enoxaparin Sodium (Enoxaparin 40 Mg/0.4 Ml Syringe) 40 mg SC DAILY COUNTS INCLUDE 234 BEDS AT THE [facility] Last Admin: 04/15/20 10:52 Dose: 40 mg Documented by: Sodium Chloride () 250 mls @ 15 mls/hr IV .[id number] PRN PRN Reason: Saline Flush Last Infusion: 04/16/20 05:27 Dose: 0 mls/hr Documented by: Sodium Chloride () 250 mls @ 15 mls/hr IV .[id number] PRN PRN Reason: Additional IVPB Infusion Last Infusion: 04/15/20 23:21 Dose: 0 mls/hr Documented by: Sodium Chloride () 1,000 mls @ 15 mls/hr IV .Q48H COUNTS INCLUDE 234 BEDS AT THE [facility] Last Admin: 04/14/20 22:35 Dose: Not Given Documented by: Piperacillin Sod/Tazobactam (Sod 3.375 gm/ Sodium Chloride) 50 mls @ 12.5 mls/hr IV Q8 COUNTS INCLUDE 234 BEDS AT THE [facility] Last Admin: 04/16/20 05:23 Dose: 12.5 mls/hr Documented by: Sodium Chloride () 250 mls @ 15 mls/hr IV .[id number] PRN PRN Reason: Additional IVPB Infusion Vancomycin IV Pharmacy to Dose (1 ea/ Sodium Chloride) 500 mls @ 250 mls/hr IV X1 PRN; Protocol PRN Reason: Rx to Dose Vancomycin HCl 2,000 mg/ (Sodium Chloride) 540 mls @ 180 mls/hr IV Q12H COUNTS INCLUDE 234 BEDS AT [facility] Last Infusion: 04/16/20 02:04 Dose: Infused Documented by: L-Arginine/L-Glutamine/Calcium HMB (Robert (Unflavored) Packet) 1 packet PO BIDCM COUNTS INCLUDE 234 BEDS AT [facility] Last Admin: 04/15/20 17:47 Dose: 1 packet Documented by: Levothyroxine Sodium (Levothyroxine 75 Mcg Tablet) 75 mcg PO DAILY@0600 COUNTS INCLUDE 234 BEDS AT THE [facility] Last Admin: 04/16/20 05:23 Dose: 75 mcg Documented by: Metoprolol Tartrate (Metoprolol Tartrate 25 Mg Tablet) 25 mg PO BID COUNTS INCLUDE 234 BEDS AT THE [facility] Last Admin: 04/15/20 21:15 Dose: 25 mg Documented by: Morphine Sulfate (Morphine 2 Mg/Ml Syringe) 2 mg IV Q3H PRN PRN PRN Reason: Pain Score 6-10 Nutritional Formula (Lactose Free) (Ensure Enlive 120 Ml Liquid) 120 ml PO 4X/DAY [facility] Last Admin: 04/15/20 21:14 Dose: 120 ml Documented by: Ondansetron HCl (Ondansetron 4 Mg/2 Ml Vial) 4 mg IV Q8H PRN PRN PRN Reason: NAUSEA/VOMITING Last Admin: 04/13/20 07:43 Dose: 4 mg Documented by: Sodium Chloride (0.9% Saline Lock 10 Ml Syringe) 10 - 40 ml IV UD PRN PRN Reason: SALINE FLUSH Last Admin: 04/14/20 22:31 Dose: 10 ml Documented by: Medical Necessity - Tobacco Use Smoking Status: Current every day smoker Tobacco Use: Cigarettes Assessment/Plan All Active Problems MRSA (methicillin resistant Staphylococcus aureus) infection (Acute) Redness of the left leg and foot (Acute) Type 2 diabetes mellitus with foot ulcer (Acute) Sepsis (Acute) Osteomyelitis (Acute) Cellulitis of lower extremity (Acute) Left foot ulcer s/p I&D with bone debridement and revision of amputation on 04/11/[address] Torres Left foot osteomyelitis Left foot cellulitis bacteremia Diabetes with neuropathy History of transmetatarsal amputation left foot Patient seen and examined bedside Foot is looking stable about 2 cc of purulent drainage was expressed from the wound today There is new necrotic area to the medial aspect of the plantar foot this is stable Blood cultures are positive follow repeat cultures and OR cultures are multimicrobial and positive for staph including Staph aureus, Streptococcus mitis, Corynebacterium, gram-negative nuha, Klebsiella White blood cell count of 7.9 post op XR reviewed MRI showed abscess and OM of 5th metatarsal and medial cuneiform. In OR multiple soft tissue abscesses were found as well as pus from medullary cannal of 5th metatarsal bone. Upon completion of surgery no further pus was expressed. Since operative I&D daily dressing changes further purulent drainage was expressed from the plantar ulceration. Please try to boost patient so foot isn't rubbing on footboard and keep bed fully extended. To prevent rubbing on foot Continue daily dressing changes with xeroform along incision and at distal stump blister and packing into ulcer deficit. Wrap with philip wrap from foot to knee. Patient is aware and understands that worsening of infection or failure to heal and take care of his left foot could result in a BKA. Discussed with patient that this is where we are currently at. With the increase in purulent drainage and worsening appearance of the wound discussed BKA evaluation with patient. Patient was amendable to this level of amputation. Consult will be placed for further discussion and work-up. Discussed with patient the importance of proper infection and wound care management. Discussed with patient importance of NWB, proper nutrition including enough protein, and blood sugar control to optimize healing potential. Consult placed with Dr. Plata for BKA intervention. Discussed case with Dr. Plata. Plan for intervention early next week LEAS showed right ROB of 1.42 and TBI 0.43 and left ROB 1.12 and TBI unable to be obtained as there are no toes to left foot. PT and DP bilateral were triphasic Continue IV antibiotics Continue wound care Will continue to monitor for further purulent drainage. Purulent drainage seems to be under control with daily packing dressing changes. Do not believe that further I&D needs to be done prior to BKA intervention to control spread of infection. Patient scheduled for BKA tomorrow Please contact if any questions or concerns. Podiatry will continue to follow. Joselyn Torres DPM [facility] [phone] This note was generated with [employer] software. It may contain incorrect words, spelling, and punctuation that were not noted in checking the note before signing.
[2020-04-16] MEDS: Enoxaparin 40 MG/0.4 ML Syringe SC (09:42)
[2020-04-16] MEDS: DULoxetine Hcl 30 MG Capsule PO (09:42)
[2020-04-16] MEDS: Juven (unflavored) Packet 1 PACKET PO ×2 (09:43→17:24)
[2020-04-16] MEDS: Metoprolol Tartrate 25 MG Tablet PO ×2 (09:50→22:42)
[2020-04-16] MEDS: Atorvastatin Calcium 40 MG Tablet PO (22:42)
[2020-04-17] VITALS (22 sets, daily range): BP systolic 95–154; BP diastolic 56–84; PULSE 50–86; RESP 14–18; TEMP 36.1–37.6; O2SAT 92–100; BMI 23.8; BMI 23.9
--- NOTE | 2020-04-17 05:00 | EKG12_ITS ---
Test Reason : PRE-OP Blood Pressure : / mmHG Vent. Rate : 060 BPM Atrial Rate : 060 BPM P-R Int : 178 ms QRS Dur : 096 ms QT Int : 464 ms P-R-T Axes : 045 -21 022 degrees QTc Int : 464 ms Normal sinus rhythm Normal ECG When compared with ECG of 24-NOV-2019 10:54, No significant change was found Confirmed by UMAIR FERNANDES, DONOVAN ([id number]), assistant production editor LAVERN ROMERO ([id number]) on 04/19/2020 11:23:02 AM Referred By: DR MACKENZIE Confirmed By:DONOVAN BLOCK MD
[2020-04-17 05:15] LABS: Absolute Lymphocyte Count 1.96 X10^3/uL (0.83-4.51); Absolute Neutrophil Count 7.9 X10^3/uL (2.0-7.7); Basophil% 0.9 % (0-1); Eosinophil# 0.41 X10^3/uL; Eosinophils% 3.5 % (0-5); Hemoglobin 12.1 g/dL (13.0-16.5); Lymphocyte # 1.96 X10^3/ul (4.0); Lymphocyte % 16.9 % (19-41); Mean Corp Hgb Conc 31.8 g/dL (32-36); Mean Corpuscular Hgb 24.9 pg (27.0-32.0); Mean Corpuscular Volume 78.4 fL (80-94); Mean Platelet Vol. 9.6 fl (6.2-12.0); Monocyte# 1.11 X10^3/uL; Monocyte% 9.5 % (0-10); NRBC Flagged by Analyzer 0 % (0-5); Neutrophil # 7.93 X10^3/uL (2.7-7.7); Neutrophil % 68.2 % (47-70); Platelet Count 497 K/mm3 (150-450); RBC Distribution Width CV 14.6 % (11.6-14.6); RBC Distribution Width SD 41.6 fl (35.1-43.9); Red Blood Count 4.85 M/mm3 (4.6-6.2); White Blood Count 11.6 K/mm3 (4.4-11.0)
[2020-04-17 05:44] LABS: Anion Gap 7 (5-15); BUN 16 mg/dL (7-18); BUN/Creat Ratio 20.9 RATIO (10-20); Calcium,Total 8.7 mg/dL (8.5-10.1); Chloride 109 mmol/L (98-107); Creatinine, Serum 0.77 mg/dL (0.70-1.30); EST Glomerular Filtration Rate 108 mL/min (>60); Est Glom Filt Rate - Afr Amer 131 mL/min (>60); Estimated Creatinine Clearance 108.09 ml/min; Glucose 91 mg/dL (74-106); Potassium 3.6 mmol/L (3.5-5.1); Sodium Level 139 mmol/L (136-145); Thyroid Stim Hormone (TSH) 5.24 uIU/mL (0.358-3.74)
--- NOTE | 2020-04-17 06:55 | NURSING ---
Pt is scheduled for a L BKA per Dr Plata, and was already taken down to surgery this am. Will continue to follow.
[2020-04-17] MEDS: Lactated Ringers 1,000 ML 100 ML IV ×2 (07:30→11:37)
--- NOTE | 2020-04-17 07:30 | MISC_PTH ---
PATIENT: RK MCCLURE LOC: MS3 U#:[id number] AGE/SX: 64/M ROOM: GA315 RE04/11/[address]: Dr. Aram Figueredo MD : 1955 BED: 1 DIS: 04/19/2020 SPEC #: [id number] RECD: 04/17/20 11:55 STATUS: JENNY REQ #: [id number] JUAN ALBERTO: 04/17/20 07:[address]: Dionte Plata DEPT: SURGICAL PATHOLOGY RECD BY: Cherelle Fuentes ENTERED: 04/17/20 11:55 SP TYPE: MISC OTHR DR: MD Dr. Dionte Kramer MD Dr. Kelly Kubiak, SILVIAM MD Dr. Aram Conway MD Dr. Paul Nielsen, MD Dr. Robert Leininger, MD Tissues: Leg, NOS Procedures: Decalcification bone/plaque Surgery Specimen Level V Comments: @ Ordering doctor for SUIV edited from to @ by RANJEETOD at 04/17/20 1404 @ Submitting doctor edited from to @ by RANJEETOD at 04/17/20 1404 HEADER OPERATION: Below knee amputation PRE-OP DIAGNOSIS: Nonhealing diabetic abscess ulcer left foot; osteomyelitis TISSUE SUBMITTED: Left leg below the knee MICROSCOPIC DIAGNOSIS Left leg below the knee amputation: Ulceration with acute and chronic inflammation and abscess formation. Bone with acute osteomyelitis. Anterior and posterior tibial arteries with mild to focal moderate intimal fibroplasia. Calcific change of blood vessel guzmán. Soft tissue at margin of resection with reactive and reparative change. AM:ava 04/20/2020 MICROSCOPIC DESCRIPTION Slides are reviewed. GROSS DESCRIPTION Received fresh labeled with the patient's name and designated left leg below the knee. The specimen consists of a below the knee amputation. The foot does not contain any toes. The dorsum of foot to heel measures 19 cm. The heel to soft tissue margin of resection measures 30 cm. Segment of unremarkable bone measuring 5 cm extend beyond the soft tissue margin of resection. The dorsal portion of the foot contains an area with ulceration. This area measures 13 x 1.5 cm. The plantar surface contains two ulcers ranging in size from 2.5 to 2 cm. The soft tissue and bony margins of resection are grossly unremarkable. The posterior tibial artery cuts with a gritty sensation but no effusion is identified. Administrative Aide sections are submitted as follows: 1 - skin and soft tissue at margin of resection, 2??anterior tibial (inked black) and posterior tibial artery at margin of resection, 3 - additional sections of anterior tibial artery, 4 - additional sections of posterior tibial artery, 5 - dorsal skin ulcer and soft tissue, 6??plantar ulcer and skin and soft tissue, 7 -8 soft tissue and bone deep to plantar ulcer. Cassettes 7 and 8 are submitted after appropriate decalcification. / AM:ava 04/17/20 TC:2 CPT: 47192, 22916
--- NOTE | 2020-04-17 08:04 | PCM.PN.HOSP ---
Patient Problems: Active and Suspected Problems Redness of the left leg and foot (Acute) Type 2 diabetes mellitus with foot ulcer (Acute) Sepsis (Acute) Osteomyelitis (Acute) Cellulitis of lower extremity (Acute) Reason for Visit: Follow-up for left below-knee amputation. Objective: The patient was seen and examined in PACU after the surgery. Patient complain of pain and was given adequate analgesics in the OR and PACU. Heart rate, blood pressure, respiratory rate and pulse ox normal range. Patient is mild drowsy and lethargic. Physical exam General: Awake but mild drowsy and lethargic. Answers questions appropriately. HEENT: Atraumatic, PERRLA, EOMI, Normocephalic Oral: No Gingival or Mucosal Lesions/ Ulcerations Neck: Supple, No JVD, Negative Carotid Bruits Lungs: Air entry diminished in bilateral lung bases. No crepitation/rhonchi Cardiovascular: Regular rate, Regular Rhythm, Normal S1, Normal S2, No murmurs Abdomen: Bowel Sounds Present, Soft, Non Tender, Non-Distended : No renal angle tenderness. No suprapubic tenderness. Extremities: No edema, Capillary Refill Less than 3 Seconds Skin: Left below-knee surgical wound. Musculoskeletal: Left below-knee amputation covered with dressing and bandage. No Tenderness to Palpation of other joints or Extremities Neurological: Cranial nerves II-XII grossly intact, Deep Tendon Reflexes 2+/4 and Symmetrical, Neuro grossly intact Psych/Mental Status: Normal Affect, Appropriate. Vitals/I&O's: Vital Signs Temp Pulse Resp BP Pulse Ox 98.4 F 63 18 117/73 92 04/17/20 05:47 04/17/20 05:47 04/17/20 05:47 04/17/20 05:47 04/17/20 07:11 Oxygen Flow Rate (L/min) 97 Oxygen Delivery Method Room Air Weight: 180 lb 15.992 oz Body Mass Index (BMI) 23.8 Finger Stick Blood Glucose 89 Intake and Output for Last 24 Hours 04/15/20 04/16/20 04/17/20 23:59 23:59 23:59 Intake Total 2252.25 / 2252.25 4007.75 / 4007.75 590 / 590 Output Total 1700 / 1700 2950 / 2950 800 / 800 Balance 552.25 / 552.25 1057.75 / 1057.75 -210 / -210 Microbiology Past 72 Hours 04/11/20 18:46 Bone - Left Foot Gram Stain - Final 04/11/20 18:46 Bone - Left Foot Wound Culture - Preliminary Staphylococcus aureus Alpha Hemolytic Streptococcus Gram positive nuha 04/11/20 18:46 Bone - Left Foot Anaerobic Culture - Preliminary Checking for anaerobes, further studies to follow. 04/11/20 07:20 Wound Abcess - Left Foot Gram Stain - Final 04/11/20 07:20 Wound Abcess - Left Foot Wound Culture - Preliminary Staphylococcus aureus Streptococcus mitis/ oralis Corynebacterium species Gram negative nuha Klebsiella oxytoca 04/11/20 07:20 Wound Abcess - Left Foot Anaerobic Culture - Final Anaerobic cocci 04/14/20 13:03 Blood Culture (Wb) - Anticubital Right Blood Culture - Preliminary No growth in 48 hours. 04/11/20 18:45 Bone - Left Foot Gram Stain - Final 04/11/20 18:45 Bone - Left Foot Wound Culture - Preliminary Meth. resistant Staph. aureus Staphylococcus aureus#2 Streptococcus mitis/ oralis 04/11/20 18:45 Bone - Left Foot Anaerobic Culture - Preliminary Checking for anaerobes, further studies to follow. 04/11/20 18:42 Wound - Left Foot Gram Stain - Final 04/11/20 18:42 Wound - Left Foot Wound Culture - Final Meth. resistant Staph. aureus Staphylococcus aureus#2 Streptococcus mitis/ oralis 04/11/20 18:42 Wound - Left Foot Anaerobic Culture - Preliminary Checking for anaerobes, further studies to follow. 04/13/20 09:45 Blood Culture (Wb) - Right Hand Blood Culture - Preliminary No growth in 48 hours. 04/11/20 04:30 Blood Culture (Wb) - Right Hand Bacteria Detection (PCR) - Final Staphylococcus aureus mecA Resistance Marker 04/11/20 04:30 Blood Culture (Wb) - Right Hand Blood Culture - Final Meth. resistant Staph. aureus Streptococcus mitis/ oralis Staphylococcus aureus 04/12/20 16:40 Stool Ova and Parasites - Final 04/11/20 02:58 Blood Culture (Wb) - Anticubital Left Blood Culture - Final Staphylococcus aureus Gram positive organism Alpha hemolytic organism Laboratory Results 04/17/20 05:00: WBC 11.6 H, RBC 4.85, Hgb 12.1 L, Hct 38.0 L, MCV 78.4 L, MCH 24.9 L, MCHC 31.8 L, RDW Std Deviation 41.6, RDW Coeff of Jesus 14.6, Plt Count 497 H, MPV 9.6, Immature Gran % (Auto) 1.000 H, Neut % (Auto) 68.2, Lymph % (Auto) 16.9 L, Bingham % (Auto) 9.5, Eos % (Auto) 3.5, Baso % (Auto) 0.9, Absolute Neuts (auto) 7.9 H, Absolute Lymphs (auto) 1.96, Nucleated RBC % 0 04/17/20 05:00: Sodium 139, Potassium 3.6, Chloride 109 H, Carbon Dioxide 23.0, Anion Gap 7, BUN 16, Creatinine 0.77, Estim Creat Clear Calc 108.09, Est GFR (MDRD) Af Amer 131, Est GFR (MDRD) Non-Af 108, BUN/Creatinine Ratio 20.9 H, Glucose 91, Calcium 8.7, TSH 5.24 H Current Medications Acetaminophen (Acetaminophen 325 Mg Tablet) 650 mg PO Q6H PRN PRN PRN Reason: Temp > 100.4 F Last Admin: 04/15/20 17:46 Dose: 650 mg Documented by: Atorvastatin Calcium (Atorvastatin Calcium 40 Mg Tablet) 40 mg PO QHS [facility] Last Admin: 04/16/20 22:42 Dose: 40 mg Documented by: Duloxetine HCl (Duloxetine Hcl 30 Mg Capsule) 30 mg PO DAILY [facility] Last Admin: 04/16/20 09:42 Dose: 30 mg Documented by: Sodium Chloride () 250 mls @ 15 mls/hr IV .[id number] PRN PRN Reason: Saline Flush Last Infusion: 04/16/20 05:27 Dose: 0 mls/hr Documented by: Sodium Chloride () 250 mls @ 15 mls/hr IV .[id number] PRN PRN Reason: Additional IVPB Infusion Last Infusion: 04/15/20 23:21 Dose: 0 mls/hr Documented by: Sodium Chloride () 1,000 mls @ 15 mls/hr IV .Q48H [facility] Last Admin: 04/14/20 22:35 Dose: Not Given Documented by: Piperacillin Sod/Tazobactam (Sod 3.375 gm/ Sodium Chloride) 50 mls @ 12.5 mls/hr IV Q8 [facility] Last Admin: 04/17/20 05:39 Dose: 12.5 mls/hr Documented by: Sodium Chloride () 250 mls @ 15 mls/hr IV .[id number] PRN PRN Reason: Additional IVPB Infusion Vancomycin IV Pharmacy to Dose (1 ea/ Sodium Chloride) 500 mls @ 250 mls/hr IV X1 PRN; Protocol PRN Reason: Rx to Dose Vancomycin HCl 2,000 mg/ (Sodium Chloride) 540 mls @ 180 mls/hr IV Q12H [facility] Last Infusion: 04/17/20 05:25 Dose: Infused Documented by: L-Arginine/L-Glutamine/Calcium HMB (Robert (Unflavored) Packet) 1 packet PO BIDCM [facility] Last Admin: 04/16/20 17:24 Dose: 1 packet Documented by: Levothyroxine Sodium (Levothyroxine 75 Mcg Tablet) 75 mcg PO DAILY@0600 [facility] Last Admin: 04/17/20 05:40 Dose: Not Given Documented by: Metoprolol Tartrate (Metoprolol Tartrate 25 Mg Tablet) 25 mg PO BID [facility] Last Admin: 04/16/20 22:42 Dose: 25 mg Documented by: Morphine Sulfate (Morphine 2 Mg/Ml Syringe) 2 mg IV Q3H PRN PRN PRN Reason: Pain Score 6-10 Nutritional Formula (Lactose Free) (Ensure Enlive 120 Ml Liquid) 120 ml PO 4X/DAY [facility] Last Admin: 04/16/20 22:42 Dose: 120 ml Documented by: Ondansetron HCl (Ondansetron 4 Mg/2 Ml Vial) 4 mg IV Q8H PRN PRN PRN Reason: NAUSEA/VOMITING Last Admin: 04/13/20 07:43 Dose: 4 mg Documented by: Sodium Chloride (0.9% Saline Lock 10 Ml Syringe) 10 - 40 ml IV UD PRN PRN Reason: SALINE FLUSH Last Admin: 04/14/20 22:31 Dose: 10 ml Documented by: STROKE Vital Signs/Narrative: Vital Signs Temp Pulse Resp BP Pulse Ox 04/17/20 07:11 92 04/17/20 05:47 98.4 F 63 18 117/73 93 Medical Necessity - Tobacco Use Smoking Status: Current every day smoker Tobacco Use: Cigarettes Assessment/Plan All Active Problems Abscess of left foot (Acute) MRSA (methicillin resistant Staphylococcus aureus) infection (Acute) Redness of the left leg and foot (Acute) Type 2 diabetes mellitus with foot ulcer (Acute) Sepsis (Acute) Osteomyelitis (Acute) Cellulitis of lower extremity (Acute) This is 64-year-old male with history of left foot chronic wound infection, TMA was admitted with fever with purulent drainage consistent with acute left fifth metatarsal osteomyelitis with MRSA, MSSA abscess. 1. Severe sepsis due to left fifth metatarsal osteomyelitis with MRSA, MSSA abscess, anaerobic cocci Streptococcus mitis, corynebacterium, Klebsiella oxytoca with MRSA and MSSA bacteremia: Patient is admitted on [facility]. ID has been consulted. Patient had left below-knee amputation on 04/[address] Plata. No vegetation seen on TTE. On Vanco and Zosyn. Prior to that, patient had incision and drainage of left foot with bone biopsy and debridement and revision of amputation by dry kiln burner. PT and OT to continue 2. Diabetes mellitus type 2: Glucose is well controlled. A1c 5.8%. 3. CAD status post stents: On metoprolol and Crestor. 4 other comorbidities include hypertension, dyslipidemia, anxiety and depression: Blood pressure is good. On Cymbalta 5. DVT: Lovenox Microbiology Past 72 Hours 04/11/20 18:45 Bone - Left Foot Gram Stain - Final 04/11/20 18:45 Bone - Left Foot Wound Culture - Final Meth. resistant Staph. aureus Staphylococcus aureus#2 Streptococcus mitis 04/11/20 18:45 Bone - Left Foot Anaerobic Culture - Final Anaerobic cocci 04/11/20 07:20 Wound Abcess - Left Foot Gram Stain - Final 04/11/20 07:20 Wound Abcess - Left Foot Wound Culture - Final Staphylococcus aureus Streptococcus mitis/ oralis Corynebacterium species Alcaligenes faecalis ssp faeca Klebsiella oxytoca 04/11/20 07:20 Wound Abcess - Left Foot Anaerobic Culture - Final Anaerobic cocci 04/11/20 18:46 Bone - Left Foot Gram Stain - Final 04/11/20 18:46 Bone - Left Foot Wound Culture - Final Staphylococcus aureus Streptococcus mitis/ oralis 04/11/20 18:46 Bone - Left Foot Anaerobic Culture - Final Anaerobic cocci 04/11/20 18:42 Wound - Left Foot Gram Stain - Final 04/11/20 18:42 Wound - Left Foot Wound Culture - Final Meth. resistant Staph. aureus Staphylococcus aureus#2 Streptococcus mitis/ oralis 04/11/20 18:42 Wound - Left Foot Anaerobic Culture - Final 04/14/20 13:03 Blood Culture (Wb) - Anticubital Right Blood Culture - Preliminary No growth in 48 hours. 04/13/20 09:45 Blood Culture (Wb) - Right Hand Blood Culture - Preliminary No growth in 48 hours. 04/11/20 04:30 Blood Culture (Wb) - Right Hand Bacteria Detection (PCR) - Final Staphylococcus aureus mecA Resistance Marker 04/11/20 04:30 Blood Culture (Wb) - Right Hand Blood Culture - Final Meth. resistant Staph. aureus Streptococcus mitis/ oralis Staphylococcus aureus 04/12/20 16:40 Stool Ova and Parasites - Final 04/11/20 02:58 Blood Culture (Wb) - Anticubital Left Blood Culture - Final Staphylococcus aureus Gram positive organism Alpha hemolytic organism Laboratory Results 04/17/20 05:00: WBC 11.6 H, RBC 4.85, Hgb 12.1 L, Hct 38.0 L, MCV 78.4 L, MCH 24.9 L, MCHC 31.8 L, RDW Std Deviation 41.6, RDW Coeff of Jesus 14.6, Plt Count 497 H, MPV 9.6, Immature Gran % (Auto) 1.000 H, Neut % (Auto) 68.2, Lymph % (Auto) 16.9 L, Bingham % (Auto) 9.5, Eos % (Auto) 3.5, Baso % (Auto) 0.9, Absolute Neuts (auto) 7.9 H, Absolute Lymphs (auto) 1.96, Nucleated RBC % 0 04/17/20 05:00: Sodium 139, Potassium 3.6, Chloride 109 H, Carbon Dioxide 23.0, Anion Gap 7, BUN 16, Creatinine 0.77, Estim Creat Clear Calc 108.09, Est GFR (MDRD) Af Amer 131, Est GFR (MDRD) Non-Af 108, BUN/Creatinine Ratio 20.9 H, Glucose 91, Calcium 8.7, TSH 5.24 H 04/17/20 11:44: POC Glucose 91 Inpatient E&M: 55029 Subs Hosp L2
[2020-04-17] MEDS: Lidocaine 1%/Epi 1:200 (30ml) 30 ML AMPUL (08:10)
--- NOTE | 2020-04-17 09:33 | CASEMGMT ---
Social Work Note Pt is having L BKA done today. SW placed a call to Jaelyn at [facility] and left message informing her to submit for pre-cert once pt works with PT/OT after having surgery today. SW to fax updated clinicals once PT/OT is available. Plan: [facility] pending pre-cert Glendy Maher [employer], [employer] PROFESSIONAL
--- NOTE | 2020-04-17 10:44 | OP.PCM_ITS ---
Report of Operation Date of Procedure: 04/17/20 Pre-Operative Diagnosis: 1. Complex nonhealing diabetic abscess ulcer left foot. 2. Osteomyelitis. 3. Diabetes with neuropathy. 4. Sepsis. 5. History of transmetatarsal amputation left foot. 6. MRSA. 7. Smoker. 8. Homeless. Post-Operative Diagnosis: Same. Surgery/Procedure Performed:: Left below knee amputation. Description of Surgical Findings:: The patient is a 64 year old M who presents to the emergency department for worsening left foot ulceration. Patient is homeless. Patient had multiple previous surgeries to the left foot, the most recent in November, where he underwent revision transmetatarsal amputation. He was admitted on 04/11/20. Initial WBC was 21.9. Lactate was 2.5. IV antibiotics were started with Vancomycin and Zosyn. X-ray from 04/11/20 was suggestive of osteomyelitis. MRI was done on 04/11/20. It showed signal alterations of the fifth metatarsal and medial cuneiform, suggestive of osteomyelitis. Soft tissue abscess/phlegmon at the amputation stump. Neuropathic osteoarthropathy. Atrophy of the intrinsic muscles of the foot consistent with peripheral neuropathy. LEAS was done on 04/11/20. It showed normal bilateral lower extremity ankle-brachial indices and normal bilateral posterior tibial and dorsalis pedis triphasic Doppler waveforms. Abnormal right digital brachial index of 0.43, possibly temperature related or distal small vessel disease. Clinical correlation indicated. Left digital brachial indices not obtained. Dr. Torres took the patient to surgery on 04/11/20 where he underwent incision and drainage left foot with bone biopsy and debridement with revision of amputation. WBC has improved to 7.9. Lactate improved to 0.9. His HgbA1c from 04/11/20 is 5.8. He has positive blood culture showing MRSA. His operative cultures showed a polymicrobial infection with MRSA, Staphylococcus aureus, Streptococcus, and Gram negative rods. After the operative debridement, the left foot still showed purulent drainage. It was felt the left foot was not salvageable. I was asked to evaluate this patient for surgical options for treatment. Patient was informed of the risks and complications of the procedure including alternatives to surgery. These were discussed with the patient personally. Patient voices understanding and wishes to proceed. Encouraged patient to stop smoking as it may have deleterious effects on wound healing. Total tourniquet time - 53 minutes. I used AmnioFill Placental Connective Tissue Powder, 500 mg. Catalog Number - [id number]. Lot Number - [id number]. Expiration - October 22, 2024. I used [place] absorbable hemostat. Reference Number - [id number]. Lot Number - [id number]. Expiration - November 18, 2024. insurance counselor: Juvenal Taylor. Type of Anesthesia:: Spinal Specimen's removed: Left below knee amputation to Pathology. Drains: Vinny. Estimated Blood Loss (mL): 50 ml. Description of Procedure: Patient was taken to OR in supine position and was placed under general anesthesia. His left leg was prepped and draped in the usual fashion. A sterile stockinette was placed over the left leg. SCD was placed on the right leg for DVT prophylaxis. Perioperative antibiotics were given intravenously. A montesinos catheter was then placed. I performed the surgery with an N95 mask and proper eye protection. The anterior tibial tubercle was marked. A horizontal marking was made 12 cm distally. I then extended this marking posteriorly and created a posterior flap with a length of 10 cm. When the tibia is exposed, I will queenie it at 11 cm for the osteotomy. The fibula will be remove about 1.5 cm proximal to that. These markings were infiltrated with xylocaine with epinephrine. Prior to prepping the patient, a tourniquet was placed on the proximal thigh. The left leg was elevated and an Esmarch bandage was placed for compression as the tourniquet was elevated to 300 mmHg. I made an anterior incision and when I got to the anterior tibia, a horizontal incision was made down to the bone. This horizontal incision was made at 12 cm from the anterior tibial tubercle. I then incised the anterior tibial muscle, the extensor hallucis longus muscle, and the extensor digitorum longus muscle. The anterior tibial vessels were seen and dissected and ligated with Number 2 Silk tie ligatures. The peroneal muscles were then incised laterally. I located the peroneal nerve and placed it on stretch. I incised the nerve and allowed it to retract proximally to minimize neuroma formation. This exposed the fibula. Using a periosteal elevator, I freed up the tibia. I then placed the gigli saw around the tibia at the level of the previous marking at 11 cm from the anterior tibial tubercle. The tibia was then incised. This made it a little easier to get exposure to the tibialis posterior muscle which was incised. The flexor digitorum longus muscle medially and the flexor hallucis longus muscle laterally were incised. This exposed the peroneal vessels laterally and the posterior tibial vessels medially. These vessels were dissected and ligated with Number 2 Silk tie ligatures. The posterior tibial nerve was dissected free and placed on stretch and incised. This allowed the proximal end to retract proximally to minimize neuroma formation on the stump. I dissected the fibula with a periosteal elevator superiorly about 1.5 cm proximal to the tibial osteotomy. I used an oscillating saw to incise the fibula. A rasp was used to smooth out the bony edge. I then extended the skin incision posteriorly and created the posterior flap. I the gastrocnemius muscle from the soleus muscle. The remaining muscle fibers from the soleus muscle were incised as the distal leg was removed from the field. The amputated leg will be sent to Pathology for analysis. In order to close the posterior flap, the soleus muscle was incised thus exposing the gastrocnemius muscle. This thinned the flap enough that I was able to advance the flap anteriorly to cover the bone. A size 15 Vinny drain was placed through a separate stab incision laterally and secured to the skin with 3-0 Nylon suture. The drain was used to drain the deeper wound over the bone and brought out into the subcutaneous tissue. Prior to closure of the stump, I beveled the tibia anteriorly with an oscillating saw to smooth out the bone anteriorly. A rasp was used to smooth out the edges of the bone. I then released the tourniquet after 53 minutes. Hemostasis was obtained with electrocautery. Some bleeding was seen posteriorly. There were some perforators seen that were controlled with Number 2 Silk tie ligatures. The wound was irrigated with Irrisept 0.05% chlorhexidine solution followed by saline irrigation. The flaps were viable with no evidence of vascular compromise. Bone wax was placed over the exposed tibia to help with hemostasis. I then placed AmnioFill placental connective tissue powder into the wound at the level of the bone to help stimulate the healing process. I used 500 mg. I was able to cover the tibia with the soleus and gastrocnemius muscle to the fascia and periosteum anteriorly with 2-0 Vicryl figure of eight interrupted sutures. I then sprayed Trenton absorbable hemostat into the subcutaneous wound to minimize seroma formation. The deep dermis and subcutaneous tissue was approximated with 2-0 Vicryl interrupted sutures. The skin was approximated with 3-0 Nylon vertical mattress interrupted sutures and simple interrupted sutures. Antibiotic ointment was applied to the suture line followed by Kerlix gauze and ABD pads followed by compression AMIE wrap. Patient tolerated the procedure well. He was sent to PACU in satisfactory condition. Patient will be sent upstairs for continued postop care. The drain will be removed in 2-3 weeks. The sutures will be removed in 3-[address] At which time will place a stump president financial institution in anticipation for the prosthesis. Grafts/Implants Used: AmnioFill Placental Connective Tissue Powder and [place]. - Complications None. - Admit VTE Documentation VTE Present on Admission: No VTE Mechan Device Prophylaxis: SCD's VTE Pharm Prophylaxis ordered?: Yes Surgery Charges CPT - 71064 ICD-10 - L02.612, E11.621, M86.9, A41.9, Z89.432, A49.02, F17.200, Z59.0
[2020-04-17] MEDS: Mupirocin Ointment 22gm Tube 1 APPLIC (10:54)
[2020-04-17 11:50] LABS: Bedside Glucose 91 mg/dL (70-110)
--- NOTE | 2020-04-17 13:51 | SUR.PHASEI ---
AT 13:45, PATIENT LAYING ON LEFT SIDE. STATES PAIN IS 10/10 WHEN ASKED TO RATE PAIN ON 0 TO 10 SCALE. APPEARS TO BE RESTING QUIETLY.
[2020-04-17] MEDS: Morphine 2 MG/ML Syringe IV ×2 (15:40→18:39)
[2020-04-17] MEDS: diazePAM 5 MG Tablet PO (16:04)
[2020-04-17] MEDS: 0.9% Saline Lock 10 ML Syringe IV (18:39)
[2020-04-17] MEDS: Juven (unflavored) Packet 1 PACKET PO (18:42)
[2020-04-17 20:20] LABS: Hematocrit 37.4 % (40-54)
[2020-04-17] MEDS: oxyCODONE 5 MG Tablet 10 MG PO (20:31)
[2020-04-17] MEDS: Metoprolol Tartrate 25 MG Tablet PO (21:21)
[2020-04-17] MEDS: Atorvastatin Calcium 40 MG Tablet PO (21:21)
--- NOTE | 2020-04-17 23:50 | PCS.PANDOC ---
PANDEMIC DOCUMENTATION INITIATED: Date: 04/17/20 Time: 1899
[2020-04-18] VITALS (7 sets, daily range): BP systolic 127–135; BP diastolic 61–77; PULSE 68–81; RESP 16–18; TEMP 36.7–37.6; O2SAT 92–97; BMI 23.9
[2020-04-18] MEDS: Morphine 2 MG/ML Syringe IV ×3 (00:34→08:47)
[2020-04-18] MEDS: Levothyroxine 75 MCG Tablet PO (05:59)
[2020-04-18] MEDS: oxyCODONE 5 MG Tablet 10 MG PO ×2 (06:00→14:23)
[2020-04-18] MEDS: Enoxaparin 40 MG/0.4 ML Syringe SC (06:00)
[2020-04-18 06:09] LABS: Hemoglobin 11.6 g/dL (13.0-16.5); Mean Corp Hgb Conc 32.2 g/dL (32-36); Mean Corpuscular Hgb 25.4 pg (27.0-32.0); Mean Corpuscular Volume 78.8 fL (80-94); Mean Platelet Vol. 9.5 fl (6.2-12.0); Platelet Count 472 K/mm3 (150-450); RBC Distribution Width CV 14.7 % (11.6-14.6); Red Blood Count 4.57 M/mm3 (4.6-6.2); White Blood Count 12.6 K/mm3 (4.4-11.0)
[2020-04-18 06:36] LABS: Anion Gap 4 (5-15); BUN 14 mg/dL (7-18); BUN/Creat Ratio 19.2 RATIO (10-20); Calcium,Total 8.2 mg/dL (8.5-10.1); Chloride 104 mmol/L (98-107); Creatinine, Serum 0.73 mg/dL (0.70-1.30); EST Glomerular Filtration Rate 115 mL/min (>60); Est Glom Filt Rate - Afr Amer 139 mL/min (>60); Estimated Creatinine Clearance 114.01 ml/min; Glucose 103 mg/dL (74-106); Potassium 3.8 mmol/L (3.5-5.1); Prealbumin 12.9 mg/dL (20.0-40.0); Sodium Level 135 mmol/L (136-145)
[2020-04-18] MEDS: Metoprolol Tartrate 25 MG Tablet PO ×2 (08:37→21:27)
[2020-04-18] MEDS: DULoxetine Hcl 30 MG Capsule PO (08:39)
[2020-04-18] MEDS: Acetaminophen 325 MG Tablet 650 MG PO (08:46)
[2020-04-18] MEDS: diazePAM 5 MG Tablet PO (08:46)
--- NOTE | 2020-04-18 10:13 | PN.SURG_ITS ---
Patient Problems: Active and Suspected Problems Redness of the left leg and foot (Acute) Type 2 diabetes mellitus with foot ulcer (Acute) Sepsis (Acute) Osteomyelitis (Acute) Cellulitis of lower extremity (Acute) Subjective: Postop #1 Patient has incisional pain and burning nerve pain. - Physical Exam Vitals/I&O's: Vital Signs Temp Pulse Resp BP Pulse Ox 98.5 F 78 18 129/77 H 92 04/18/20 06:20 04/18/20 08:37 04/18/20 06:20 04/18/20 06:20 04/18/20 06:20 Oxygen Flow Rate (L/min) 97 Oxygen Delivery Method Room Air Weight: 180 lb 15.992 oz Body Mass Index (BMI) 23.8 Finger Stick Blood Glucose 91 Intake and Output for Last 24 Hours 04/16/20 04/17/20 04/18/20 23:59 23:59 23:59 Intake Total 4007.75 / 4007.75 4015 / 4015 1090 / 1090 Output Total 2950 / 2950 3090 / 3090 740 / 740 Balance 1057.75 / 1057.75 925 / 925 350 / 350 Drainage 90 ml yesterday, 40 ml today. General: Alert, Oriented x3 HEENT: PERRLA, EOMI Oral: Moist Mucosa Neck: Supple Abdomen: Soft, Non-Distended Skin: Incision - left BKA stump incision is dry and intact. Stump is soft with no clinical evidence of hematoma. No evidence of vascular compromise. Some tenderness to palpation. Neurological: Cranial nerves II-XII grossly intact Psych/Mental Status: Normal Affect, Appropriate Microbiology Past 72 Hours 04/12/20 14:56 Blood Culture (Wb) - Anticubital Right Blood Culture - Final No growth in 5 days. 04/11/20 18:45 Bone - Left Foot Gram Stain - Final 04/11/20 18:45 Bone - Left Foot Wound Culture - Final Meth. resistant Staph. aureus Staphylococcus aureus#2 Streptococcus mitis 04/11/20 18:45 Bone - Left Foot Anaerobic Culture - Final Anaerobic cocci 04/11/20 07:20 Wound Abcess - Left Foot Gram Stain - Final 04/11/20 07:20 Wound Abcess - Left Foot Wound Culture - Final Staphylococcus aureus Streptococcus mitis/ oralis Corynebacterium species Alcaligenes faecalis ssp faeca Klebsiella oxytoca 04/11/20 07:20 Wound Abcess - Left Foot Anaerobic Culture - Final Anaerobic cocci 04/11/20 18:46 Bone - Left Foot Gram Stain - Final 04/11/20 18:46 Bone - Left Foot Wound Culture - Final Staphylococcus aureus Streptococcus mitis/ oralis 04/11/20 18:46 Bone - Left Foot Anaerobic Culture - Final Anaerobic cocci 04/11/20 18:42 Wound - Left Foot Gram Stain - Final 04/11/20 18:42 Wound - Left Foot Wound Culture - Final Meth. resistant Staph. aureus Staphylococcus aureus#2 Streptococcus mitis/ oralis 04/11/20 18:42 Wound - Left Foot Anaerobic Culture - Final 04/14/20 13:03 Blood Culture (Wb) - Anticubital Right Blood Culture - Preliminary No growth in 48 hours. 04/13/20 09:45 Blood Culture (Wb) - Right Hand Blood Culture - Preliminary No growth in 48 hours. 04/11/20 04:30 Blood Culture (Wb) - Right Hand Bacteria Detection (PCR) - Final Staphylococcus aureus mecA Resistance Marker 04/11/20 04:30 Blood Culture (Wb) - Right Hand Blood Culture - Final Meth. resistant Staph. aureus Streptococcus mitis/ oralis Staphylococcus aureus 04/12/20 16:40 Stool Ova and Parasites - Final Laboratory Results 04/17/20 11:44: POC Glucose 91 04/17/20 20:14: Hgb 12.0 L, Hct 37.4 L 04/18/20 05:50: WBC 12.6 H, RBC 4.57 L, Hgb 11.6 L, Hct 36.0 L, MCV 78.8 L, MCH 25.4 L, MCHC 32.2, RDW Std Deviation 42.0, RDW Coeff of Jesus 14.7 H, Plt Count 472 H, MPV 9.5 04/18/20 05:50: Sodium 135 L, Potassium 3.8, Chloride 104, Carbon Dioxide 27.0, Anion Gap 4 L, BUN 14, Creatinine 0.73, Estim Creat Clear Calc 114.01, Est GFR (MDRD) Af Amer 139, Est GFR (MDRD) Non-Af 115, BUN/Creatinine Ratio 19.2, Glucose 103, Calcium 8.2 L, Prealbumin 12.9 L Current Medications Acetaminophen (Acetaminophen 325 Mg Tablet) 650 mg PO Q6H PRN PRN PRN Reason: Temp > 100.4 F Last Admin: 04/18/20 08:46 Dose: 650 mg Documented by: Atorvastatin Calcium (Atorvastatin Calcium 40 Mg Tablet) 40 mg PO QHS [facility] Last Admin: 04/17/20 21:21 Dose: 40 mg Documented by: Diazepam (Diazepam 5 Mg Tablet) 5 mg PO 4X/DAY PRN PRN PRN Reason: SPASMS Last Admin: 04/18/20 08:46 Dose: 5 mg Documented by: Duloxetine HCl (Duloxetine Hcl 30 Mg Capsule) 30 mg PO DAILY [facility] Last Admin: 04/18/20 08:39 Dose: 30 mg Documented by: Enoxaparin Sodium (Enoxaparin 40 Mg/0.4 Ml Syringe) 40 mg SC DAILY@0600 [facility] Last Admin: 04/18/20 06:00 Dose: 40 mg Documented by: Gabapentin (Gabapentin 800 Mg Tablet) 800 mg PO TIDCM [facility] Sodium Chloride () 250 mls @ 15 mls/hr IV .[id number] PRN PRN Reason: Saline Flush Last Infusion: 04/17/20 08:00 Dose: Infused Documented by: Sodium Chloride () 250 mls @ 15 mls/hr IV .[id number] PRN PRN Reason: Additional IVPB Infusion Last Infusion: 04/17/20 08:00 Dose: Infused Documented by: Sodium Chloride () 1,000 mls @ 15 mls/hr IV .Q48H [facility] Last Admin: 04/17/20 12:52 Dose: Not Given Documented by: Piperacillin Sod/Tazobactam (Sod 3.375 gm/ Sodium Chloride) 50 mls @ 12.5 mls/hr IV Q8 [facility] Last Admin: 04/18/20 05:59 Dose: 12.5 mls/hr Documented by: Sodium Chloride () 250 mls @ 15 mls/hr IV .[id number] PRN PRN Reason: Additional IVPB Infusion Vancomycin IV Pharmacy to Dose (1 ea/ Sodium Chloride) 500 mls @ 250 mls/hr IV X1 PRN; Protocol PRN Reason: Rx to Dose Vancomycin HCl 2,000 mg/ (Sodium Chloride) 540 mls @ 180 mls/hr IV Q12H [facility] Last Infusion: 04/18/20 02:26 Dose: Infused Documented by: L-Arginine/L-Glutamine/Calcium HMB (Robert (Unflavored) Packet) 1 packet PO BIDCM [facility] Last Admin: 04/18/20 08:37 Dose: Not Given Documented by: Levothyroxine Sodium (Levothyroxine 75 Mcg Tablet) 75 mcg PO DAILY@0600 [facility] Last Admin: 04/18/20 05:59 Dose: 75 mcg Documented by: Metoprolol Tartrate (Metoprolol Tartrate 25 Mg Tablet) 25 mg PO BID [facility] Last Admin: 04/18/20 08:37 Dose: 25 mg Documented by: Morphine Sulfate (Morphine 10 Mg/Ml Syringe) 6 mg IV Q3H PRN PRN PRN Reason: Pain Score 6-10 Mupirocin (Mupirocin Ointment 22gm Tube) 1 applic TOPICAL .QDAILY [facility]; Protocol Nutritional Formula (Lactose Free) (Ensure Enlive 120 Ml Liquid) 120 ml PO 4X/DAY [facility] Last Admin: 04/18/20 08:36 Dose: 120 ml Documented by: Ondansetron HCl (Ondansetron 4 Mg/2 Ml Vial) 4 mg IV Q8H PRN PRN PRN Reason: NAUSEA/VOMITING Last Admin: 04/13/20 07:43 Dose: 4 mg Documented by: Oxycodone HCl (Oxycodone 5 Mg Tablet) 10 mg PO Q4H PRN PRN PRN Reason: Pain Score 4-5 Last Admin: 04/18/20 06:00 Dose: 10 mg Documented by: Sodium Chloride (0.9% Saline Lock 10 Ml Syringe) 10 - 40 ml IV UD PRN PRN Reason: SALINE FLUSH Last Admin: 04/17/20 18:39 Dose: 10 ml Documented by: Medical Necessity - Tobacco Use Smoking Status: Current every day smoker Tobacco Use: Cigarettes Assessment/Plan All Active Problems Abscess of left foot (Acute) MRSA (methicillin resistant Staphylococcus aureus) infection (Acute) Redness of the left leg and foot (Acute) Type 2 diabetes mellitus with foot ulcer (Acute) Sepsis (Acute) Osteomyelitis (Acute) Cellulitis of lower extremity (Acute) 1. Complex nonhealing diabetic abscess ulcer left foot. 2. Osteomyelitis. 3. Diabetes with neuropathy. 4. Sepsis. 5. History of transmetatarsal amputation left foot. 6. MRSA. 7. Smoker. 8. Homeless. 9. s/p left BKA. Continue Vancomycin and Zosyn for polymicrobial infection, (MRSA, Staphylococcus aureus, Streptococcus mitis, and Anaerobic cocci in the bone; MRSA Staphylococcus aureus, Streptococcus mitis, Corynebacterium species, Alcaligenes faecalis, Klebsiella oxytoca, and Anaerobic cocci in the soft tissue: MRSA, Staphylococcus aureus, and Streptococcus mitis in the blood). Stump incision is dry and intact. Stump is soft without clinical evidence of hematoma. No evidence of vascular compromise in the flap. For his incisional pain and burning nerve pain will increase the Morphine and start him on Neurontin. He had been on Neurontin in the past for his diabetic neuropathy. There is also Valium for spasm as well. Prealbumin was 12.9. Encourage nutritional supplementation with protein to help the healing process. He is being evaluated to go to an ECF at discharge. Will remove the drain in 2-3 weeks. Will remove the sutures in 3-4 weeks. Encouraged patient to stop smoking as it may have deleterious effects on wound healing.
--- NOTE | 2020-04-18 10:14 | NURSING ---
wound photo: left BKA
--- NOTE | 2020-04-18 10:15 | NURSING ---
wound photo: left BKA
[2020-04-18] MEDS: morphine 10 MG/ML Syringe 6 MG IV (10:41)
[2020-04-18] MEDS: Mupirocin Ointment 22gm Tube 1 APPLIC TOPICAL (10:42)
--- NOTE | 2020-04-18 11:00 | CASEMGMT ---
Addendum entered by Glendy Maher 04/18/20 13:47: CARLTON placed a call to Jaelyn at [facility] and left message that updated clinicals will be faxed and asked for Jaelyn to submit for pre-cert. CARLTON faxed updated clinicals. Original Note: Social Work Note SW received script for IV antibiotics. Pt will get PICC Line placed. CARLTON to fax updated clinicals to [facility] once PT/OT works with pt today. Plan: [facility] pending pre-cert Glendy Maher [employer], [employer]
[2020-04-18 11:15] LABS: Vancomycin, Trough Level 22.2 ug/mL (5.0-15.0)
[2020-04-18] MEDS: Gabapentin 800 MG Tablet PO ×2 (11:33→19:38)
--- NOTE | 2020-04-18 11:51 | PCM.RX.CS ---
Consult Pharmacy has been consulted to manage selected antiobiotic: Vancomycin Type of Consult: Follow-up Prior Doses of Antibiotics Received/Current Regimen: current regimen is 2000mg IV q12h Labs: Sodium 135 mmol/L (136-145) L 04/18/20 05:50 Potassium 3.8 mmol/L (3.5-5.1) 04/18/20 05:50 Chloride 104 mmol/L (98-107) 04/18/20 05:50 Carbon Dioxide 27.0 mmol/L (21.0-32.0) 04/18/20 05:50 Anion Gap 4 (5-15) L 04/18/20 05:50 BUN 14 mg/dL (7-18) 04/18/20 05:50 Creatinine 0.73 mg/dL (0.70-1.30) 04/18/20 05:50 Est GFR (MDRD) Af Amer 139 mL/min (>60) 04/18/20 05:50 Est GFR (MDRD) Non-Af 115 mL/min (>60) 04/18/20 05:50 BUN/Creatinine Ratio 19.2 RATIO (10-20) 04/18/20 05:50 Glucose 103 mg/dL (74-106) 04/18/20 05:50 Vancomycin Trough 22.2 ug/mL (5.0-15.0) H 04/18/20 10:37 Microbiology: Microbiology 04/13/20 09:45 Blood Culture (Wb) - Right Hand Blood Culture - Final No growth in 5 days. 04/12/20 14:56 Blood Culture (Wb) - Anticubital Right Blood Culture - Final No growth in 5 days. 04/11/20 18:45 Bone - Left Foot Gram Stain - Final 04/11/20 18:45 Bone - Left Foot Wound Culture - Final Meth. resistant Staph. aureus Staphylococcus aureus#2 Streptococcus mitis 04/11/20 18:45 Bone - Left Foot Anaerobic Culture - Final Anaerobic cocci 04/11/20 07:20 Wound Abcess - Left Foot Gram Stain - Final 04/11/20 07:20 Wound Abcess - Left Foot Wound Culture - Final Staphylococcus aureus Streptococcus mitis/ oralis Corynebacterium species Alcaligenes faecalis ssp faeca Klebsiella oxytoca 04/11/20 07:20 Wound Abcess - Left Foot Anaerobic Culture - Final Anaerobic cocci 04/11/20 18:46 Bone - Left Foot Gram Stain - Final 04/11/20 18:46 Bone - Left Foot Wound Culture - Final Staphylococcus aureus Streptococcus mitis/ oralis 04/11/20 18:46 Bone - Left Foot Anaerobic Culture - Final Anaerobic cocci 04/11/20 18:42 Wound - Left Foot Gram Stain - Final 04/11/20 18:42 Wound - Left Foot Wound Culture - Final Meth. resistant Staph. aureus Staphylococcus aureus#2 Streptococcus mitis/ oralis 04/11/20 18:42 Wound - Left Foot Anaerobic Culture - Final 04/14/20 13:03 Blood Culture (Wb) - Anticubital Right Blood Culture - Preliminary No growth in 48 hours. 04/11/20 04:30 Blood Culture (Wb) - Right Hand Bacteria Detection (PCR) - Final Staphylococcus aureus mecA Resistance Marker 04/11/20 04:30 Blood Culture (Wb) - Right Hand Blood Culture - Final Meth. resistant Staph. aureus Streptococcus mitis/ oralis Staphylococcus aureus 04/12/20 16:40 Stool Ova and Parasites - Final 04/11/20 02:58 Blood Culture (Wb) - Anticubital Left Blood Culture - Final Staphylococcus aureus Gram positive organism Alpha hemolytic organism 04/12/20 16:40 Stool Enteric Bacteriology - Final 04/12/20 16:40 Stool C. difficile DNA Amplification - Final 04/11/20 08:05 Urine, Clean Catch Urine Culture - Final Mixed Gram Positive Organisms 04/11/20 04:30 Mucosa - Nose SARS-CoV-2 Antigen (Rapid) - Final Weight used for dosin.1 kg Estimated Creatinine Clearance: 114ml/min Goal Trough: 15-20 mcg/mL Pharmacy Plan for Drug Dosing: The vancomycin trough level drawn before this morning's dose was 22.2 (drawn approx 11.5 hours after the previous dose). This is above goal range of 15-20. Per policy, since it is above 20, further dosing will be held at this time. The patient did get about 1/3 of this morning's dose of 2000mg before pharmacy asked the nurse to stop the current dose that was infusing. Since the patient only received a partial dose, we will check a random vanc level tonight in 12 hours and evaluate from there if dosing can be resumed at that time at a decreased dose. Pharmacy Service will continue to monitor and adjust dosing as required. Follow-Up Labs: Trough Vancomycin - random Labs to be done on [date and time ordered]: 04/18/20 23:00
--- NOTE | 2020-04-18 14:28 | PCM.PN.HOSP ---
Patient Problems: Active and Suspected Problems Redness of the left leg and foot (Acute) Type 2 diabetes mellitus with foot ulcer (Acute) Sepsis (Acute) Osteomyelitis (Acute) Cellulitis of lower extremity (Acute) Reason for Visit: Follow-up for left below-knee amputation Objective: Patient complain of severe pain over left below-knee amputation stump, 8?10/10 intensity. Patient on morphine, gabapentin and diazepam Heart rate and blood pressure are normal. Physical exam General: Alert, Oriented x3, Cooperative HEENT: Atraumatic, PERRLA, EOMI, Normocephalic Oral: No Gingival or Mucosal Lesions/ Ulcerations Neck: Supple, No JVD, Negative Carotid Bruits Lungs: Air entry diminished in bilateral lung bases. No crepitation/rhonchi Cardiovascular: Regular rate, Regular Rhythm, Normal S1, Normal S2, No murmurs Abdomen: Bowel Sounds Present, Soft, Non Tender, Non-Distended : No renal angle tenderness. No suprapubic tenderness. Extremities: No edema, Capillary Refill Less than 3 Seconds Skin: No rashes, No breakdown Musculoskeletal: No Tenderness to Palpation of Joints or Extremities Neurological: Cranial nerves II-XII grossly intact, Deep Tendon Reflexes 2+/4 and Symmetrical, Neuro grossly intact Psych/Mental Status: Normal Affect, Appropriate. Vitals/I&O's: Vital Signs Temp Pulse Resp BP Pulse Ox 98.9 F 81 18 135/61 H 97 04/18/20 11:00 04/18/20 11:00 04/18/20 11:00 04/18/20 11:00 04/18/20 11:00 Oxygen Flow Rate (L/min) 97 Oxygen Delivery Method Room Air Weight: 180 lb 15.992 oz Body Mass Index (BMI) 23.8 Finger Stick Blood Glucose 91 Intake and Output for Last 24 Hours 04/16/20 04/17/20 04/18/20 23:59 23:59 23:59 Intake Total 4007.75 / 4007.75 4015 / 4015 2265 / 2265 Output Total 2950 / 2950 3090 / 3090 1940 / 1940 Balance 1057.75 / 1057.75 925 / 925 325 / 325 Microbiology Past 72 Hours 04/13/20 09:45 Blood Culture (Wb) - Right Hand Blood Culture - Final No growth in 5 days. 04/12/20 14:56 Blood Culture (Wb) - Anticubital Right Blood Culture - Final No growth in 5 days. 04/11/20 18:45 Bone - Left Foot Gram Stain - Final 04/11/20 18:45 Bone - Left Foot Wound Culture - Final Meth. resistant Staph. aureus Staphylococcus aureus#2 Streptococcus mitis 04/11/20 18:45 Bone - Left Foot Anaerobic Culture - Final Anaerobic cocci 04/11/20 07:20 Wound Abcess - Left Foot Gram Stain - Final 04/11/20 07:20 Wound Abcess - Left Foot Wound Culture - Final Staphylococcus aureus Streptococcus mitis/ oralis Corynebacterium species Alcaligenes faecalis ssp faeca Klebsiella oxytoca 04/11/20 07:20 Wound Abcess - Left Foot Anaerobic Culture - Final Anaerobic cocci 04/11/20 18:46 Bone - Left Foot Gram Stain - Final 04/11/20 18:46 Bone - Left Foot Wound Culture - Final Staphylococcus aureus Streptococcus mitis/ oralis 04/11/20 18:46 Bone - Left Foot Anaerobic Culture - Final Anaerobic cocci 04/11/20 18:42 Wound - Left Foot Gram Stain - Final 04/11/20 18:42 Wound - Left Foot Wound Culture - Final Meth. resistant Staph. aureus Staphylococcus aureus#2 Streptococcus mitis/ oralis 04/11/20 18:42 Wound - Left Foot Anaerobic Culture - Final 04/14/20 13:03 Blood Culture (Wb) - Anticubital Right Blood Culture - Preliminary No growth in 48 hours. Laboratory Results 04/17/20 20:14: Hgb 12.0 L, Hct 37.4 L 04/18/20 05:50: WBC 12.6 H, RBC 4.57 L, Hgb 11.6 L, Hct 36.0 L, MCV 78.8 L, MCH 25.4 L, MCHC 32.2, RDW Std Deviation 42.0, RDW Coeff of Jesus 14.7 H, Plt Count 472 H, MPV 9.5 04/18/20 05:50: Sodium 135 L, Potassium 3.8, Chloride 104, Carbon Dioxide 27.0, Anion Gap 4 L, BUN 14, Creatinine 0.73, Estim Creat Clear Calc 114.01, Est GFR (MDRD) Af Amer 139, Est GFR (MDRD) Non-Af 115, BUN/Creatinine Ratio 19.2, Glucose 103, Calcium 8.2 L, Prealbumin 12.9 L 04/18/20 10:37: Vancomycin Trough 22.2 H Current Medications Acetaminophen (Acetaminophen 325 Mg Tablet) 650 mg PO Q6H PRN PRN PRN Reason: Temp > 100.4 F Last Admin: 04/18/20 08:46 Dose: 650 mg Documented by: Atorvastatin Calcium (Atorvastatin Calcium 40 Mg Tablet) 40 mg PO QHS [facility] Last Admin: 04/17/20 21:21 Dose: 40 mg Documented by: Diazepam (Diazepam 5 Mg Tablet) 5 mg PO 4X/DAY PRN PRN PRN Reason: SPASMS Last Admin: 04/18/20 08:46 Dose: 5 mg Documented by: Duloxetine HCl (Duloxetine Hcl 30 Mg Capsule) 30 mg PO DAILY [facility] Last Admin: 04/18/20 08:39 Dose: 30 mg Documented by: Enoxaparin Sodium (Enoxaparin 40 Mg/0.4 Ml Syringe) 40 mg SC DAILY@0600 [facility] Last Admin: 04/18/20 06:00 Dose: 40 mg Documented by: Gabapentin (Gabapentin 800 Mg Tablet) 800 mg PO TIDCM [facility] Last Admin: 04/18/20 11:33 Dose: 800 mg Documented by: Sodium Chloride () 250 mls @ 15 mls/hr IV .[id number] PRN PRN Reason: Saline Flush Last Infusion: 04/17/20 08:00 Dose: Infused Documented by: Sodium Chloride () 250 mls @ 15 mls/hr IV .[id number] PRN PRN Reason: Additional IVPB Infusion Last Infusion: 04/17/20 08:00 Dose: Infused Documented by: Sodium Chloride () 1,000 mls @ 15 mls/hr IV .Q48H [facility] Last Admin: 04/17/20 12:52 Dose: Not Given Documented by: Piperacillin Sod/Tazobactam (Sod 3.375 gm/ Sodium Chloride) 50 mls @ 12.5 mls/hr IV Q8 [facility] Last Admin: 04/18/20 14:16 Dose: 12.5 mls/hr Documented by: Sodium Chloride () 250 mls @ 15 mls/hr IV .[id number] PRN PRN Reason: Additional IVPB Infusion Vancomycin IV Pharmacy to Dose (1 ea/ Sodium Chloride) 500 mls @ 250 mls/hr IV X1 PRN; Protocol PRN Reason: Rx to Dose L-Arginine/L-Glutamine/Calcium [facility] ([facility] ([facility]) [facility] Last Admin: 04/18/20 08:37 Dose: Not Given Documented by: Levothyroxine Sodium (Levothyroxine 75 Mcg Tablet) 75 mcg PO DAILY@0600 [facility] Last Admin: 04/18/20 05:59 Dose: 75 mcg Documented by: Metoprolol Tartrate (Metoprolol Tartrate 25 Mg Tablet) 25 mg PO BID [facility] Last Admin: 04/18/20 08:37 Dose: 25 mg Documented by: Morphine Sulfate (Morphine 10 Mg/Ml Syringe) 6 mg IV Q3H PRN PRN PRN Reason: Pain Score 6-10 Last Admin: 04/18/20 10:41 Dose: 6 mg Documented by: Mupirocin (Mupirocin Ointment 22gm Tube) 1 applic TOPICAL DAILY [facility]; Protocol Last Admin: 04/18/20 10:42 Dose: 1 applicatio Documented by: Nutritional Formula (Lactose Free) (Ensure Enlive 120 Ml Liquid) 120 ml PO 4X/DAY [facility] Last Admin: 04/18/20 14:16 Dose: 120 ml Documented by: Ondansetron HCl (Ondansetron 4 Mg/2 Ml Vial) 4 mg IV Q8H PRN PRN PRN Reason: NAUSEA/VOMITING Last Admin: 04/13/20 07:43 Dose: 4 mg Documented by: Oxycodone HCl (Oxycodone 5 Mg Tablet) 10 mg PO Q4H PRN PRN PRN Reason: Pain Score 4-5 Last Admin: 04/18/20 14:23 Dose: 10 mg Documented by: Sodium Chloride (0.9% Saline Lock 10 Ml Syringe) 10 - 40 ml IV UD PRN PRN Reason: SALINE FLUSH Last Admin: 04/17/20 18:39 Dose: 10 ml Documented by: STROKE Vital Signs/Narrative: Vital Signs Temp Pulse Resp BP Pulse Ox 04/18/20 11:00 98.9 F 81 18 135/61 H 97 Medical Necessity - Tobacco Use Smoking Status: Current every day smoker Tobacco Use: Cigarettes Assessment/Plan All Active Problems Abscess of left foot (Acute) MRSA (methicillin resistant Staphylococcus aureus) infection (Acute) Redness of the left leg and foot (Acute) Type 2 diabetes mellitus with foot ulcer (Acute) Sepsis (Acute) Osteomyelitis (Acute) Cellulitis of lower extremity (Acute) This is 64-year-old male with history of left foot chronic wound infection, TMA was admitted with fever with purulent drainage consistent with acute left fifth metatarsal osteomyelitis with MRSA, MSSA abscess. 1. Severe sepsis due to left fifth metatarsal osteomyelitis with MRSA, MSSA abscess, anaerobic cocci Streptococcus mitis, corynebacterium, Klebsiella oxytoca with MRSA and MSSA bacteremia: [facility] ID has been consulted. Patient had left below-knee amputation on 04/[address] Plata. No vegetation seen on TTE. On Vanco and Zosyn. 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 PT and OT to continue 04/18: Severe pain over left below-knee amputation. Dose of morphine, Neurontin increased. On Valium and oxycodone. PT and OT to continue as per tolerated by patient. 2. Diabetes mellitus type 2: Glucose is well controlled. A1c 5.8%. 3. CAD status post stents: On metoprolol and Crestor. 4 other comorbidities include hypertension, dyslipidemia, anxiety and depression: Blood pressure is good. On Cymbalta 5. DVT: Lovenox Microbiology Past 72 Hours 04/13/20 09:45 Blood Culture (Wb) - Right Hand Blood Culture - Final No growth in 5 days. 04/12/20 14:56 Blood Culture (Wb) - Anticubital Right Blood Culture - Final No growth in 5 days. 04/11/20 18:45 Bone - Left Foot Gram Stain - Final 04/11/20 18:45 Bone - Left Foot Wound Culture - Final Meth. resistant Staph. aureus Staphylococcus aureus#2 Streptococcus mitis 04/11/20 18:45 Bone - Left Foot Anaerobic Culture - Final Anaerobic cocci 04/11/20 07:20 Wound Abcess - Left Foot Gram Stain - Final 04/11/20 07:20 Wound Abcess - Left Foot Wound Culture - Final Staphylococcus aureus Streptococcus mitis/ oralis Corynebacterium species Alcaligenes faecalis ssp faeca Klebsiella oxytoca 04/11/20 07:20 Wound Abcess - Left Foot Anaerobic Culture - Final Anaerobic cocci 04/11/20 18:46 Bone - Left Foot Gram Stain - Final 04/11/20 18:46 Bone - Left Foot Wound Culture - Final Staphylococcus aureus Streptococcus mitis/ oralis 04/11/20 18:46 Bone - Left Foot Anaerobic Culture - Final Anaerobic cocci 04/11/20 18:42 Wound - Left Foot Gram Stain - Final 04/11/20 18:42 Wound - Left Foot Wound Culture - Final Meth. resistant Staph. aureus Staphylococcus aureus#2 Streptococcus mitis/ oralis 04/11/20 18:42 Wound - Left Foot Anaerobic Culture - Final 04/14/20 13:03 Blood Culture (Wb) - Anticubital Right Blood Culture - Preliminary No growth in 48 hours. Laboratory Results 04/17/20 20:14: Hgb 12.0 L, Hct 37.4 L 04/18/20 05:50: WBC 12.6 H, RBC 4.57 L, Hgb 11.6 L, Hct 36.0 L, MCV 78.8 L, MCH 25.4 L, MCHC 32.2, RDW Std Deviation 42.0, RDW Coeff of Jesus 14.7 H, Plt Count 472 H, MPV 9.5 04/18/20 05:50: Sodium 135 L, Potassium 3.8, Chloride 104, Carbon Dioxide 27.0, Anion Gap 4 L, BUN 14, Creatinine 0.73, Estim Creat Clear Calc 114.01, Est GFR (MDRD) Af Amer 139, Est GFR (MDRD) Non-Af 115, BUN/Creatinine Ratio 19.2, Glucose 103, Calcium 8.2 L, Prealbumin 12.9 L 04/18/20 10:37: Vancomycin Trough 22.2 H Inpatient E&M: 12355 Subs Hosp L2
--- NOTE | 2020-04-18 15:12 | NURSING ---
Pt's van is in parking lot. Asked pt his plan for the van once he goes to the alf. pt states he and his daughter Peggy already planned that the van would be taken to [facility] when patient leaves to go there. Pt states Peggy plans to take it there. Nursing is to let security know when patient is discharged to monitor if the van gets moved.
--- NOTE | 2020-04-18 16:20 | PN.ID_ITS ---
Patient Problems: Active and Suspected Problems Redness of the left leg and foot (Acute) Type 2 diabetes mellitus with foot ulcer (Acute) Sepsis (Acute) Osteomyelitis (Acute) Cellulitis of lower extremity (Acute) Subjective: Feeling ok but a lot of pain s/p amputation. No fever. - Physical Exam Vitals/I&O's: Vital Signs Temp Pulse Resp BP Pulse Ox 98.9 F 81 18 135/61 H 97 04/18/20 11:00 04/18/20 11:00 04/18/20 11:00 04/18/20 11:00 04/18/20 11:00 Oxygen Flow Rate (L/min) 97 Oxygen Delivery Method Room Air Weight: 82.1 kg Body Mass Index (BMI) 23.8 Finger Stick Blood Glucose 91 Intake and Output for Last 24 Hours 04/16/20 04/17/20 04/18/20 23:59 23:59 23:59 Intake Total 4007.75 / 4007.75 4015 / 4015 2265 / 2265 Output Total 2950 / 2950 3090 / 3090 1940 / 1940 Balance 1057.75 / 1057.75 925 / 925 325 / 325 General: Alert, Cooperative, No apparent distress Lungs: Clear to auscultation, Normal air movement Cardiovascular: Regular rate, Regular Rhythm Abdomen: Soft, Non Tender, Non-Distended Skin: No rashes Microbiology Past 72 Hours 04/13/20 09:45 Blood Culture (Wb) - Right Hand Blood Culture - Final No growth in 5 days. 04/12/20 14:56 Blood Culture (Wb) - Anticubital Right Blood Culture - Final No growth in 5 days. 04/11/20 18:45 Bone - Left Foot Gram Stain - Final 04/11/20 18:45 Bone - Left Foot Wound Culture - Final Meth. resistant Staph. aureus Staphylococcus aureus#2 Streptococcus mitis 04/11/20 18:45 Bone - Left Foot Anaerobic Culture - Final Anaerobic cocci 04/11/20 07:20 Wound Abcess - Left Foot Gram Stain - Final 04/11/20 07:20 Wound Abcess - Left Foot Wound Culture - Final Staphylococcus aureus Streptococcus mitis/ oralis Corynebacterium species Alcaligenes faecalis ssp faeca Klebsiella oxytoca 04/11/20 07:20 Wound Abcess - Left Foot Anaerobic Culture - Final Anaerobic cocci 04/11/20 18:46 Bone - Left Foot Gram Stain - Final 04/11/20 18:46 Bone - Left Foot Wound Culture - Final Staphylococcus aureus Streptococcus mitis/ oralis 04/11/20 18:46 Bone - Left Foot Anaerobic Culture - Final Anaerobic cocci 04/11/20 18:42 Wound - Left Foot Gram Stain - Final 04/11/20 18:42 Wound - Left Foot Wound Culture - Final Meth. resistant Staph. aureus Staphylococcus aureus#2 Streptococcus mitis/ oralis 04/11/20 18:42 Wound - Left Foot Anaerobic Culture - Final 04/14/20 13:03 Blood Culture (Wb) - Anticubital Right Blood Culture - Preliminary No growth in 48 hours. Laboratory Results 04/17/20 20:14: Hgb 12.0 L, Hct 37.4 L 04/18/20 05:50: WBC 12.6 H, RBC 4.57 L, Hgb 11.6 L, Hct 36.0 L, MCV 78.8 L, MCH 25.4 L, MCHC 32.2, RDW Std Deviation 42.0, RDW Coeff of Jesus 14.7 H, Plt Count 472 H, MPV 9.5 04/18/20 05:50: Sodium 135 L, Potassium 3.8, Chloride 104, Carbon Dioxide 27.0, Anion Gap 4 L, BUN 14, Creatinine 0.73, Estim Creat Clear Calc 114.01, Est GFR (MDRD) Af Amer 139, Est GFR (MDRD) Non-Af 115, BUN/Creatinine Ratio 19.2, Glucose 103, Calcium 8.2 L, Prealbumin 12.9 L 04/18/20 10:37: Vancomycin Trough 22.2 H Current Medications Acetaminophen (Acetaminophen 325 Mg Tablet) 650 mg PO Q6H PRN PRN PRN Reason: Temp > 100.4 F Last Admin: 04/18/20 08:46 Dose: 650 mg Documented by: Atorvastatin Calcium (Atorvastatin Calcium 40 Mg Tablet) 40 mg PO QHS [facility] Last Admin: 04/17/20 21:21 Dose: 40 mg Documented by: Diazepam (Diazepam 5 Mg Tablet) 5 mg PO 4X/DAY PRN PRN PRN Reason: SPASMS Last Admin: 04/18/20 08:46 Dose: 5 mg Documented by: Duloxetine HCl (Duloxetine Hcl 30 Mg Capsule) 30 mg PO DAILY [facility] Last Admin: 04/18/20 08:39 Dose: 30 mg Documented by: Enoxaparin Sodium (Enoxaparin 40 Mg/0.4 Ml Syringe) 40 mg SC DAILY@0600 [facility] Last Admin: 04/18/20 06:00 Dose: 40 mg Documented by: Gabapentin (Gabapentin 800 Mg Tablet) 800 mg PO TIDCM [facility] Last Admin: 04/18/20 11:33 Dose: 800 mg Documented by: Sodium Chloride () 250 mls @ 15 mls/hr IV .[id number] PRN PRN Reason: Saline Flush Last Infusion: 04/17/20 08:00 Dose: Infused Documented by: Sodium Chloride () 250 mls @ 15 mls/hr IV .[id number] PRN PRN Reason: Additional IVPB Infusion Last Infusion: 04/17/20 08:00 Dose: Infused Documented by: Sodium Chloride () 1,000 mls @ 15 mls/hr IV .Q48H [facility] Last Admin: 04/17/20 12:52 Dose: Not Given Documented by: Piperacillin Sod/Tazobactam (Sod 3.375 gm/ Sodium Chloride) 50 mls @ 12.5 mls/hr IV Q8 [facility] Last Admin: 04/18/20 14:16 Dose: 12.5 mls/hr Documented by: Sodium Chloride () 250 mls @ 15 mls/hr IV .[id number] PRN PRN Reason: Additional IVPB Infusion Vancomycin IV Pharmacy to Dose (1 ea/ Sodium Chloride) 500 mls @ 250 mls/hr IV X1 PRN; Protocol PRN Reason: Rx to Dose L-Arginine/L-Glutamine/Calcium HMB (Robert (Unflavored) Packet) 1 packet PO BIDCM [facility] Last Admin: 04/18/20 08:37 Dose: Not Given Documented by: Levothyroxine Sodium (Levothyroxine 75 Mcg Tablet) 75 mcg PO DAILY@0600 [facility] Last Admin: 04/18/20 05:59 Dose: 75 mcg Documented by: Metoprolol Tartrate (Metoprolol Tartrate 25 Mg Tablet) 25 mg PO BID [facility] Last Admin: 04/18/20 08:37 Dose: 25 mg Documented by: Morphine Sulfate (Morphine 10 Mg/Ml Syringe) 6 mg IV Q3H PRN PRN PRN Reason: Pain Score 6-10 Last Admin: 04/18/20 10:41 Dose: 6 mg Documented by: Mupirocin (Mupirocin Ointment 22gm Tube) 1 applic TOPICAL DAILY [facility]; Protocol Last Admin: 04/18/20 10:42 Dose: 1 applicatio Documented by: Nutritional Formula (Lactose Free) (Ensure Enlive 120 Ml Liquid) 120 ml PO 4X/DAY [facility] Last Admin: 04/18/20 14:16 Dose: 120 ml Documented by: Ondansetron HCl (Ondansetron 4 Mg/2 Ml Vial) 4 mg IV Q8H PRN PRN PRN Reason: NAUSEA/VOMITING Last Admin: 04/13/20 07:43 Dose: 4 mg Documented by: Oxycodone HCl (Oxycodone 5 Mg Tablet) 10 mg PO Q4H PRN PRN PRN Reason: Pain Score 4-5 Last Admin: 04/18/20 14:23 Dose: 10 mg Documented by: Sodium Chloride (0.9% Saline Lock 10 Ml Syringe) 10 - 40 ml IV UD PRN PRN Reason: SALINE FLUSH Last Admin: 04/17/20 18:39 Dose: 10 ml Documented by: Medical Necessity - Tobacco Use Smoking Status: Current every day smoker Tobacco Use: Cigarettes Route of nutrition/ use of supplements: [] Nutritional Intake: [] IV Site: [] Waggoner Catheter: [] - Assessment/Plan Antibiotics: [] Assessment/Plan: [] Active and Suspected Problems Redness of the left leg and foot (Acute) Type 2 diabetes mellitus with foot ulcer (Acute) Sepsis (Acute) Osteomyelitis (Acute) Cellulitis of lower extremity (Acute) severe sepsis due to MRSA/MSSA/strep bacteremia due to L foot osteo - now s/p OR 04/[address] Torres, then BKA 04/[address] Plata. Repeat bcx cleared, no veg seen on TTE. Cont vanc/zosyn. Will order picc, plan on 4 week total course at discharge with IV vanc, stop date 05/15/20, weekly bmp, cbc, vanc trough. Will follow, d/w disability case manager
[2020-04-18] MEDS: Atorvastatin Calcium 40 MG Tablet PO (21:28)
[2020-04-18 23:21] LABS: Vancomycin, Random Level 13.6 ug/mL (0.0-15.0)
--- NOTE | 2020-04-18 23:56 | PCM.RX.CS ---
Consult Pharmacy has been consulted to manage selected antiobiotic: Vancomycin Type of Consult: Follow-up Suspected Infection: Osteomyelitis Prior Doses of Antibiotics Received/Current Regimen: Medications Vancomycin HCl 1,750 mg/ (Sodium Chloride) 535 mls @ 250 mls/hr IV Q12H [facility] Discontinued Medications Vancomycin HCl 2,000 mg/ (Sodium Chloride) 540 mls @ 180 mls/hr IV Q12H [facility] (partial dose: approx 666mg was infused starting 04/18/20 @1042) Labs: Sodium 135 mmol/L (136-145) L 04/18/20 05:50 Potassium 3.8 mmol/L (3.5-5.1) 04/18/20 05:50 Chloride 104 mmol/L (98-107) 04/18/20 05:50 Carbon Dioxide 27.0 mmol/L (21.0-32.0) 04/18/20 05:50 Anion Gap 4 (5-15) L 04/18/20 05:50 BUN 14 mg/dL (7-18) 04/18/20 05:50 Creatinine 0.73 mg/dL (0.70-1.30) 04/18/20 05:50 Est GFR (MDRD) Af Amer 139 mL/min (>60) 04/18/20 05:50 Est GFR (MDRD) Non-Af 115 mL/min (>60) 04/18/20 05:50 BUN/Creatinine Ratio 19.2 RATIO (10-20) 04/18/20 05:50 Glucose 103 mg/dL (74-106) 04/18/20 05:50 Vancomycin Trough 22.2 ug/mL (5.0-15.0) H 04/18/20 10:37 Random Vancomycin 13.6 ug/mL (0.0-15.0) 04/18/20 22:48 Microbiology: Microbiology 04/13/20 09:45 Blood Culture (Wb) - Right Hand Blood Culture - Final No growth in 5 days. 04/12/20 14:56 Blood Culture (Wb) - Anticubital Right Blood Culture - Final No growth in 5 days. 04/11/20 18:45 Bone - Left Foot Gram Stain - Final 04/11/20 18:45 Bone - Left Foot Wound Culture - Final Meth. resistant Staph. aureus Staphylococcus aureus#2 Streptococcus mitis 04/11/20 18:45 Bone - Left Foot Anaerobic Culture - Final Anaerobic cocci 04/11/20 07:20 Wound Abcess - Left Foot Gram Stain - Final 04/11/20 07:20 Wound Abcess - Left Foot Wound Culture - Final Staphylococcus aureus Streptococcus mitis/ oralis Corynebacterium species Alcaligenes faecalis ssp faeca Klebsiella oxytoca 04/11/20 07:20 Wound Abcess - Left Foot Anaerobic Culture - Final Anaerobic cocci 04/11/20 18:46 Bone - Left Foot Gram Stain - Final 04/11/20 18:46 Bone - Left Foot Wound Culture - Final Staphylococcus aureus Streptococcus mitis/ oralis 04/11/20 18:46 Bone - Left Foot Anaerobic Culture - Final Anaerobic cocci 04/11/20 18:42 Wound - Left Foot Gram Stain - Final 04/11/20 18:42 Wound - Left Foot Wound Culture - Final Meth. resistant Staph. aureus Staphylococcus aureus#2 Streptococcus mitis/ oralis 04/11/20 18:42 Wound - Left Foot Anaerobic Culture - Final 04/14/20 13:03 Blood Culture (Wb) - Anticubital Right Blood Culture - Preliminary No growth in 48 hours. 04/11/20 04:30 Blood Culture (Wb) - Right Hand Bacteria Detection (PCR) - Final Staphylococcus aureus mecA Resistance Marker 04/11/20 04:30 Blood Culture (Wb) - Right Hand Blood Culture - Final Meth. resistant Staph. aureus Streptococcus mitis/ oralis Staphylococcus aureus 04/12/20 16:40 Stool Ova and Parasites - Final 04/11/20 02:58 Blood Culture (Wb) - Anticubital Left Blood Culture - Final Staphylococcus aureus Gram positive organism Alpha hemolytic organism 04/12/20 16:40 Stool Enteric Bacteriology - Final 04/12/20 16:40 Stool C. difficile DNA Amplification - Final 04/11/20 08:05 Urine, Clean Catch Urine Culture - Final Mixed Gram Positive Organisms 04/11/20 04:30 Mucosa - Nose SARS-CoV-2 Antigen (Rapid) - Final Weight used for dosin.1 kg Estimated Creatinine Clearance: 114 Goal Trough: 15-20 mcg/mL Pharmacy Plan for Drug Dosing: Vancomycin trough level 04/18/20 @1037 was high at 22.2. The running infusion was stopped, so pt received approx 666mg at that time. The random level drawn that evening at 2248 was 13.6, so order was restarted at 1750mg q12h. Will re-draw a trough prior to 4th dose of new regimen. Pharmacy Service will continue to monitor and adjust dosing as required. Follow-Up Labs: Trough Vancomycin Labs to be done on [date and time ordered]: 04/20/20 @1200
[2020-04-19] MEDS: oxyCODONE 5 MG Tablet 10 MG PO ×2 (00:21→08:31)
[2020-04-19 03:05] VITALS: BP 119/72; PULSE 77; RESP 18; TEMP 37.3; O2SAT 93
[2020-04-19] MEDS: Levothyroxine 75 MCG Tablet PO (05:40)
[2020-04-19] MEDS: Enoxaparin 40 MG/0.4 ML Syringe SC (05:40)
[2020-04-19 08:20] VITALS: BP 115/74; PULSE 68; RESP 18; TEMP 36.9; O2SAT 97
--- NOTE | 2020-04-19 08:25 | PCM.PN.HOSP ---
Patient Problems: Active and Suspected Problems Redness of the left leg and foot (Acute) Type 2 diabetes mellitus with foot ulcer (Acute) Sepsis (Acute) Osteomyelitis (Acute) Cellulitis of lower extremity (Acute) Objective: Heart rate and blood pressure in the normal range. Vitals/I&O's: Vital Signs Temp Pulse Resp BP Pulse Ox 98.4 F 68 18 115/74 97 04/19/20 08:20 04/19/20 08:20 04/19/20 08:20 04/19/20 08:20 04/19/20 08:20 Oxygen Flow Rate (L/min) 97 Oxygen Delivery Method Room Air Weight: 180 lb 15.992 oz Body Mass Index (BMI) 23.8 Finger Stick Blood Glucose 91 Intake and Output for Last 24 Hours 04/17/20 04/18/20 04/19/20 23:59 23:59 23:59 Intake Total 4015 / 4015 2565 / 2565 1085 / 1085 Output Total 3090 / 3090 2340 / 2340 1340 / 1340 Balance 925 / 925 225 / 225 -255 / -255 Microbiology Past 72 Hours 04/13/20 09:45 Blood Culture (Wb) - Right Hand Blood Culture - Final No growth in 5 days. 04/12/20 14:56 Blood Culture (Wb) - Anticubital Right Blood Culture - Final No growth in 5 days. 04/11/20 18:45 Bone - Left Foot Gram Stain - Final 04/11/20 18:45 Bone - Left Foot Wound Culture - Final Meth. resistant Staph. aureus Staphylococcus aureus#2 Streptococcus mitis 04/11/20 18:45 Bone - Left Foot Anaerobic Culture - Final Anaerobic cocci 04/11/20 07:20 Wound Abcess - Left Foot Gram Stain - Final 04/11/20 07:20 Wound Abcess - Left Foot Wound Culture - Final Staphylococcus aureus Streptococcus mitis/ oralis Corynebacterium species Alcaligenes faecalis ssp faeca Klebsiella oxytoca 04/11/20 07:20 Wound Abcess - Left Foot Anaerobic Culture - Final Anaerobic cocci 04/11/20 18:46 Bone - Left Foot Gram Stain - Final 04/11/20 18:46 Bone - Left Foot Wound Culture - Final Staphylococcus aureus Streptococcus mitis/ oralis 04/11/20 18:46 Bone - Left Foot Anaerobic Culture - Final Anaerobic cocci 04/11/20 18:42 Wound - Left Foot Gram Stain - Final 04/11/20 18:42 Wound - Left Foot Wound Culture - Final Meth. resistant Staph. aureus Staphylococcus aureus#2 Streptococcus mitis/ oralis 04/11/20 18:42 Wound - Left Foot Anaerobic Culture - Final 04/14/20 13:03 Blood Culture (Wb) - Anticubital Right Blood Culture - Preliminary No growth in 48 hours. Laboratory Results 04/18/20 10:37: Vancomycin Trough 22.2 H 04/18/20 22:48: Random Vancomycin 13.6 Current Medications Acetaminophen (Acetaminophen 325 Mg Tablet) 650 mg PO Q6H PRN PRN PRN Reason: Temp > 100.4 F Last Admin: 04/18/20 08:46 Dose: 650 mg Documented by: Atorvastatin Calcium (Atorvastatin Calcium 40 Mg Tablet) 40 mg PO QHS [facility] Last Admin: 04/18/20 21:28 Dose: 40 mg Documented by: Diazepam (Diazepam 5 Mg Tablet) 5 mg PO 4X/DAY PRN PRN PRN Reason: SPASMS Last Admin: 04/18/20 08:46 Dose: 5 mg Documented by: Duloxetine HCl (Duloxetine Hcl 30 Mg Capsule) 30 mg PO DAILY [facility] Last Admin: 04/18/20 08:39 Dose: 30 mg Documented by: Enoxaparin Sodium (Enoxaparin 40 Mg/0.4 Ml Syringe) 40 mg SC DAILY@0600 [facility] Last Admin: 04/19/20 05:40 Dose: 40 mg Documented by: Gabapentin (Gabapentin 800 Mg Tablet) 800 mg PO TIDCM [facility] Last Admin: 04/18/20 19:38 Dose: 800 mg Documented by: Sodium Chloride () 250 mls @ 15 mls/hr IV .[id number] PRN PRN Reason: Saline Flush Last Infusion: 04/17/20 08:00 Dose: Infused Documented by: Sodium Chloride () 250 mls @ 15 mls/hr IV .[id number] PRN PRN Reason: Additional IVPB Infusion Last Infusion: 04/17/20 08:00 Dose: Infused Documented by: Sodium Chloride () 1,000 mls @ 15 mls/hr IV .Q48H [facility] Last Admin: 04/18/20 18:11 Dose: Not Given Documented by: Piperacillin Sod/Tazobactam (Sod 3.375 gm/ Sodium Chloride) 50 mls @ 12.5 mls/hr IV Q8 [facility] Last Admin: 04/19/20 05:40 Dose: 12.5 mls/hr Documented by: Sodium Chloride () 250 mls @ 15 mls/hr IV .[id number] PRN PRN Reason: Additional IVPB Infusion Vancomycin IV Pharmacy to Dose (1 ea/ Sodium Chloride) 500 mls @ 250 mls/hr IV X1 PRN; Protocol PRN Reason: Rx to Dose Vancomycin HCl 1,750 mg/ (Sodium Chloride) 535 mls @ 180 mls/hr IV Q12H [facility] Last Infusion: 04/19/20 03:28 Dose: Infused Documented by: L-Arginine/L-Glutamine/Calcium HMB (Robert (Unflavored) Packet) 1 packet PO BIDCM [facility] Last Admin: 04/18/20 18:11 Dose: Not Given Documented by: Levothyroxine Sodium (Levothyroxine 75 Mcg Tablet) 75 mcg PO DAILY@0600 [facility] Last Admin: 04/19/20 05:40 Dose: 75 mcg Documented by: Metoprolol Tartrate (Metoprolol Tartrate 25 Mg Tablet) 25 mg PO BID [facility] Last Admin: 04/18/20 21:27 Dose: 25 mg Documented by: Morphine Sulfate (Morphine 10 Mg/Ml Syringe) 6 mg IV Q3H PRN PRN PRN Reason: Pain Score 6-10 Last Admin: 04/18/20 10:41 Dose: 6 mg Documented by: Mupirocin (Mupirocin Ointment 22gm Tube) 1 applic TOPICAL DAILY [facility]; Protocol Last Admin: 04/18/20 10:42 Dose: 1 applicatio Documented by: Nutritional Formula (Lactose Free) (Ensure Enlive 120 Ml Liquid) 120 ml PO 4X/DAY [facility] Last Admin: 04/18/20 21:28 Dose: 120 ml Documented by: Ondansetron HCl (Ondansetron 4 Mg/2 Ml Vial) 4 mg IV Q8H PRN PRN PRN Reason: NAUSEA/VOMITING Last Admin: 04/13/20 07:43 Dose: 4 mg Documented by: Oxycodone HCl (Oxycodone 5 Mg Tablet) 10 mg PO Q4H PRN PRN PRN Reason: Pain Score 4-5 Last Admin: 04/19/20 00:21 Dose: 10 mg Documented by: Sodium Chloride (0.9% Saline Lock 10 Ml Syringe) 10 - 40 ml IV UD PRN PRN Reason: SALINE FLUSH Last Admin: 04/17/20 18:39 Dose: 10 ml Documented by: STROKE Vital Signs/Narrative: Vital Signs Temp Pulse Resp BP Pulse Ox 04/19/20 08:20 98.4 F 68 18 115/74 97 Medical Necessity - Tobacco Use Smoking Status: Current every day smoker Tobacco Use: Cigarettes Assessment/Plan All Active Problems Abscess of left foot (Acute) MRSA (methicillin resistant Staphylococcus aureus) infection (Acute) Redness of the left leg and foot (Acute) Type 2 diabetes mellitus with foot ulcer (Acute) Sepsis (Acute) Osteomyelitis (Acute) Cellulitis of lower extremity (Acute)
[2020-04-19] MEDS: Mupirocin Ointment 22gm Tube 1 APPLIC TOPICAL (08:26)
[2020-04-19] MEDS: DULoxetine Hcl 30 MG Capsule PO (08:26)
[2020-04-19 08:27] VITALS: PULSE 68
[2020-04-19] MEDS: Metoprolol Tartrate 25 MG Tablet PO (08:27)
[2020-04-19] MEDS: Juven (unflavored) Packet 1 PACKET PO (08:27)
[2020-04-19] MEDS: Gabapentin 800 MG Tablet PO ×2 (08:27→12:08)
[2020-04-19 09:03] LABS: Absolute Lymphocyte Count 1.61 X10^3/uL (0.83-4.51); Absolute Neutrophil Count 9.6 X10^3/uL (2.0-7.7); Basophil# 0.08 X10^3/uL; Basophil% 0.6 % (0-1); Eosinophil# 0.28 X10^3/uL; Eosinophils% 2.2 % (0-5); Hematocrit 36.6 % (40-54); Hemoglobin 11.5 g/dL (13.0-16.5); Lymphocyte # 1.61 X10^3/ul (4.0); Lymphocyte % 12.8 % (19-41); Mean Corp Hgb Conc 31.4 g/dL (32-36); Mean Corpuscular Hgb 25.4 pg (27.0-32.0); Mean Platelet Vol. 9.5 fl (6.2-12.0); Monocyte# 0.94 X10^3/uL; Monocyte% 7.5 % (0-10); NRBC Flagged by Analyzer 0 % (0-5); Neutrophil # 9.56 X10^3/uL (2.7-7.7); Neutrophil % 76.2 % (47-70); Platelet Count 469 K/mm3 (150-450); RBC Distribution Width CV 14.9 % (11.6-14.6); RBC Distribution Width SD 43.2 fl (35.1-43.9); Red Blood Count 4.52 M/mm3 (4.6-6.2); White Blood Count 12.6 K/mm3 (4.4-11.0)
--- NOTE | 2020-04-19 10:12 | CASEMGMT ---
Social Work Note CARLTON placed a call to Jaelyn at [employer]. Jaelyn confirms she received updated clinicals yesterday and submitted pre-cert. Jaelyn states she anticipates she will receive pre-cert today. CARLTON informed Jaelyn that medically pt should be ready for discharge today once pt gets PICC line placed. Jaelyn states she will call this worker when pre-cert is obtained. Plan: [employer] pending pre-cert Glendy Maher MSW, [employer]
--- NOTE | 2020-04-19 11:32 | PCM.TXEXTCAR ---
- Diet 04/17/20 11:34 Diet: Carbohydrate Controlled Is pt able to select menu?: Yes - Routine Orders/Code Status Suppository Type: Dulcolax 10mg Suppository Frequency: Daily PRN Routine Lab Work: CBC, BMP - weekly on antibiotics - Wound(s) Bottom of Left foot Wound Type: Abrasion lt foot Wound Type: Amputation - Left below-knee amputation Dressing Change: Dry Sterile Dressing left plantar foot Wound Type: Neuropathic/Diabetic Foot Ulcer Dressing Change: Packed with Iodoform left distal stump blister Wound Type: blister Dressing Change: AntiMicrobial (Aquacel AG, etc) LEFT LOWER LEG, BELOW KNEE Wound Type: Amputation Dressing Change: Bactroban with dry dressing - Therapies Weight Bearing: Non weight bearing Extremity Affected:: Left Lower Physical Therapy: Eval and Treat Occupational Therapy: Eval and Treat - Allergies/Procedures Done in Hospital Allergies/Adverse Reactions: Allergies colesevelam HCl [From WelChol] Allergy (Verified 04/11/20 02:48) Rash dicyclomine Allergy (Verified 04/11/20 02:48) Rash divalproex sodium [From Depakote] Allergy (Verified 04/11/20 02:48) Unknown rofecoxib [From Vioxx] Allergy (Verified 04/11/20 02:48) Rash vancomycin Adverse Reaction (Verified 04/11/20 02:48) Rash - Type of Care/Length of Stay Estimated LOS: Convalescent Care Less Than 30 days Type of Care Needed: Skilled Rehab Potential: Good Prognosis: Good - Additional Orders/Day of Discharge Additional Orders: Follow-up with Dr. Plata in 2 weeks for removal of landy. Patient also has drain. Day of Discharge: 04/19/20 - Dietary and Speech Recommendations Dietitian Recommendations/Changes: Advance diet to regular when medically indicated;. carb-controlled as needed. Continue 1 packet Robert BID and ensure enlive w/ medpass for wound healing. - Follow Up Care Primary Care Physician: Clement Buckner MD [Primary Care Provider] - Please follow up with your Primary Care Physician in: In 1 to 2 weeks Please Follow Up With: Dionte Plata MD When: In 2 weeks Please Follow Up With: Daniel Almendarez MD When: As needed for antibiotic issues.
--- NOTE | 2020-04-19 13:36 | DS.PCM_ITS ---
Discharge Date and Diagnosis - Problem List Patient Problems: Active and Suspected Problems Redness of the left leg and foot (Acute) Type 2 diabetes mellitus with foot ulcer (Acute) Sepsis (Acute) Osteomyelitis (Acute) Cellulitis of lower extremity (Acute) Date of Admission: 04/11/20 Date of Discharge: 04/19/20 - Primary Discharge Diagnosis Acute Problems: Active Problems Redness of the left leg and foot (Acute) Type 2 diabetes mellitus with foot ulcer (Acute) Sepsis (Acute) Osteomyelitis (Acute) Cellulitis of lower extremity (Acute) - Secondary Discharge Diagnosis Chronic Problems: Chronic Problems History of transmetatarsal amputation of left foot (Chronic) Current smoker (Chronic) Type 2 diabetes mellitus with foot ulcer (Chronic) Homelessness (Chronic) Hypothyroidism (Chronic) History of hyperlipidemia (Chronic) History of gastroesophageal reflux (GERD) (Chronic) Deep venous thrombosis of upper extremity (Chronic) CAD (coronary artery disease) (Chronic) Benign essential hypertension (Chronic) Hospital Course and Treatment Consultations 04/12/20 14:44 Consult: Onc/Wound/pricer Routine Comment: Reason for Consult:: left foot Operations: - Summary of Care Provided: [] This is 64-year-old male with history of left foot chronic wound infection, TMA was admitted with fever with purulent drainage consistent with acute left fifth metatarsal osteomyelitis with MRSA, MSSA abscess. 1. Severe sepsis due to left fifth metatarsal osteomyelitis with MRSA, MSSA abscess, anaerobic cocci Streptococcus mitis, corynebacterium, Klebsiella oxytoca with MRSA and MSSA bacteremia: Patient is admitted on [facility]. ID was consulted. No vegetation seen on TTE. On Vanco and Zosyn. The patient had incision and drainage of left foot with bone biopsy and debridement and revision of amputation by service captain. Patient had left below-knee amputation on 04/[address] Plata. PT and OT to continue. Postoperative patient had severe pain which was managed with morphine, Neurontin, Valium and oxycodone. Patient is discharged on gabapentin and is already on duloxetine. Surgeon requested to give prescription for pain/opioid medication Wound culture shows MRSA, MSSA staph aureus and Streptococcus mitis. Patient is scheduled to have PICC line. ID gave a prescription for vancomycin stop date 05/15/2020 2. Diabetes mellitus type 2: Glucose is well controlled. A1c 5.8%. 3. CAD status post stents: On metoprolol and Crestor. 4 other comorbidities include hypertension, dyslipidemia, anxiety and depression: Blood pressure is good. On Cymbalta 5. DVT: Lovenox Discharge medication reconciliation done. Discharge follow-up instructions co mpleted. Discharge process discussed with the patient and all questions were answered to patient's satisfaction. Advised to follow-up with Dr. Sainz in 2 weeks for staple and drain removal. Follow-up ID as needed for antibiotic issues. Total time spent, exact 35 minutes on discharge meds reconciliation, examination, coordination of care with nurses and ancillary staff, review of imaging and blood test and discussion with the patient on follow-up instructions Patient Problems: Active and Suspected Problems Redness of the left leg and foot (Acute) Type 2 diabetes mellitus with foot ulcer (Acute) Sepsis (Acute) Osteomyelitis (Acute) Cellulitis of lower extremity (Acute) Objective: Patient left BKA stump pain has much improved. On gabapentin 800 mg 3 times daily, oxycodone and morphine. Patient also on Valium as needed as muscle relaxant. Heart rate and blood pressure in normal range. No fever. Physical exam General: Alert, Oriented x3, Cooperative HEENT: Atraumatic, PERRLA, EOMI, Normocephalic Oral: No Gingival or Mucosal Lesions/ Ulcerations Neck: Supple, No JVD, Negative Carotid Bruits Lungs: Air entry diminished in bilateral lung bases. No crepitation/rhonchi Cardiovascular: Regular rate, Regular Rhythm, Normal S1, Normal S2, No murmurs Abdomen: Bowel Sounds Present, Soft, Non Tender, Non-Distended : No renal angle tenderness. No suprapubic tenderness. Extremities: Left BKA stump with Chalino wrap bandage around it. JEROMY drain contains serosanguineous discharge small amount. Total 50 mL in 24 hours. Skin: No rashes, No breakdown Musculoskeletal: Mild to moderate tenderness around left BKA stump. Neurological: Cranial nerves II-XII grossly intact, Deep Tendon Reflexes 2+/4 and Symmetrical, Neuro grossly intact Psych/Mental Status: Normal Affect, Appropriate. - Physical Exam Vitals/I&O's: Vital Signs Temp Pulse Resp BP Pulse Ox 98.4 F 68 18 115/74 97 04/19/20 08:20 04/19/20 08:27 04/19/20 08:20 04/19/20 08:20 04/19/20 08:20 Oxygen Flow Rate (L/min) 97 Oxygen Delivery Method Room Air Weight: 180 lb 15.992 oz Body Mass Index (BMI) 23.8 Finger Stick Blood Glucose 91 Intake and Output for Last 24 Hours 04/17/20 04/18/20 04/19/20 23:59 23:59 23:59 Intake Total 4015 / 4015 2565 / 2565 1735 / 1735 Output Total 3090 / 3090 2340 / 2340 2550 / 2550 Balance 925 / 925 225 / 225 -815 / -815 Microbiology Past 72 Hours 04/13/20 09:45 Blood Culture (Wb) - Right Hand Blood Culture - Final No growth in 5 days. 04/12/20 14:56 Blood Culture (Wb) - Anticubital Right Blood Culture - Final No growth in 5 days. 04/11/20 18:45 Bone - Left Foot Gram Stain - Final 04/11/20 18:45 Bone - Left Foot Wound Culture - Final Meth. resistant Staph. aureus Staphylococcus aureus#2 Streptococcus mitis 04/11/20 18:45 Bone - Left Foot Anaerobic Culture - Final Anaerobic cocci 04/11/20 07:20 Wound Abcess - Left Foot Gram Stain - Final 04/11/20 07:20 Wound Abcess - Left Foot Wound Culture - Final Staphylococcus aureus Streptococcus mitis/ oralis Corynebacterium species Alcaligenes faecalis ssp faeca Klebsiella oxytoca 04/11/20 07:20 Wound Abcess - Left Foot Anaerobic Culture - Final Anaerobic cocci 04/11/20 18:46 Bone - Left Foot Gram Stain - Final 04/11/20 18:46 Bone - Left Foot Wound Culture - Final Staphylococcus aureus Streptococcus mitis/ oralis 04/11/20 18:46 Bone - Left Foot Anaerobic Culture - Final Anaerobic cocci 04/11/20 18:42 Wound - Left Foot Gram Stain - Final 04/11/20 18:42 Wound - Left Foot Wound Culture - Final Meth. resistant Staph. aureus Staphylococcus aureus#2 Streptococcus mitis/ oralis 04/11/20 18:42 Wound - Left Foot Anaerobic Culture - Final 04/14/20 13:03 Blood Culture (Wb) - Anticubital Right Blood Culture - Preliminary No growth in 48 hours. Laboratory Results 04/18/20 22:48: Random Vancomycin 13.6 04/19/20 08:49: WBC 12.6 H, RBC 4.52 L, Hgb 11.5 L, Hct 36.6 L, MCV 81.0, MCH 25.4 L, MCHC 31.4 L, RDW Std Deviation 43.2, RDW Coeff of Jesus 14.9 H, Plt Count 469 H, MPV 9.5, Immature Gran % (Auto) 0.700, Neut % (Auto) 76.2 H, Lymph % (Auto) 12.8 L, [place] % (Auto) 7.5, Eos % (Auto) 2.2, Baso % (Auto) 0.6, Absolute Neuts (auto) 9.6 H, Absolute Lymphs (auto) 1.61, Nucleated RBC % 0 Current Medications Acetaminophen (Acetaminophen 325 Mg Tablet) 650 mg PO Q6H PRN PRN PRN Reason: Temp > 100.4 F Last Admin: 04/18/20 08:46 Dose: 650 mg Documented by: Atorvastatin Calcium (Atorvastatin Calcium 40 Mg Tablet) 40 mg PO QHS [facility] Last Admin: 04/18/20 21:28 Dose: 40 mg Documented by: Diazepam (Diazepam 5 Mg Tablet) 5 mg PO 4X/DAY PRN PRN PRN Reason: SPASMS Last Admin: 04/18/20 08:46 Dose: 5 mg Documented by: Duloxetine HCl (Duloxetine Hcl 30 Mg Capsule) 30 mg PO DAILY [facility] Last Admin: 04/19/20 08:26 Dose: 30 mg Documented by: Enoxaparin Sodium (Enoxaparin 40 Mg/0.4 Ml Syringe) 40 mg SC DAILY@0600 [facility] Last Admin: 04/19/20 05:40 Dose: 40 mg Documented by: Gabapentin (Gabapentin 800 Mg Tablet) 800 mg PO TIDCM [facility] Last Admin: 04/19/20 12:08 Dose: 800 mg Documented by: Sodium Chloride () 250 mls @ 15 mls/hr IV .[id number] PRN PRN Reason: Saline Flush Last Infusion: 04/17/20 08:00 Dose: Infused Documented by: Sodium Chloride () 250 mls @ 15 mls/hr IV .[id number] PRN PRN Reason: Additional IVPB Infusion Last Infusion: 04/17/20 08:00 Dose: Infused Documented by: Sodium Chloride () 1,000 mls @ 15 mls/hr IV .Q48H [facility] Last Admin: 04/18/20 18:11 Dose: Not Given Documented by: Piperacillin Sod/Tazobactam (Sod 3.375 gm/ Sodium Chloride) 50 mls @ 12.5 m ls/hr IV Q8 [facility] Last Infusion: 04/19/20 09:40 Dose: Infused Documented by: Sodium Chloride () 250 mls @ 15 mls/hr IV .[id number] PRN PRN Reason: Additional IVPB Infusion Vancomycin IV Pharmacy to Dose (1 ea/ Sodium Chloride) 500 mls @ 250 mls/hr IV X1 PRN; Protocol PRN Reason: Rx to Dose Vancomycin HCl 1,750 mg/ (Sodium Chloride) 535 mls @ 180 mls/hr IV Q12H [facility] Last Admin: 04/19/20 12:06 Dose: 180 mls/hr Documented by: L-Arginine/L-Glutamine/Calcium HMB (Robert (Unflavored) Packet) 1 packet PO BIDCM [facility] Last Admin: 04/19/20 08:27 Dose: 1 packet Documented by: Levothyroxine Sodium (Levothyroxine 75 Mcg Tablet) 75 mcg PO DAILY@0600 [facility] Last Admin: 04/19/20 05:40 Dose: 75 mcg Documented by: Metoprolol Tartrate (Metoprolol Tartrate 25 Mg Tablet) 25 mg PO BID [facility] Last Admin: 04/19/20 08:27 Dose: 25 mg Documented by: Morphine Sulfate (Morphine 10 Mg/Ml Syringe) 6 mg IV Q3H PRN PRN PRN Reason: Pain Score 6-10 Last Admin: 04/18/20 10:41 Dose: 6 mg Documented by: Mupirocin (Mupirocin Ointment 22gm Tube) 1 applic TOPICAL DAILY [facility]; Protocol Last Admin: 04/19/20 08:26 Dose: 1 applicatio Documented by: Nutritional Formula (Lactose Free) (Ensure Enlive 120 Ml Liquid) 120 ml PO 4X/DAY [facility] Last Admin: 04/19/20 08:22 Dose: Not Given Documented by: Ondansetron HCl (Ondansetron 4 Mg/2 Ml Vial) 4 mg IV Q8H PRN PRN PRN Reason: NAUSEA/VOMITING Last Admin: 04/13/20 07:43 Dose: 4 mg Documented by: Oxycodone HCl (Oxycodone 5 Mg Tablet) 10 mg PO Q4H PRN PRN PRN Reason: Pain Score 4-5 Last Admin: 04/19/20 08:31 Dose: 10 mg Documented by: Sodium Chloride (0.9% Saline Lock 10 Ml Syringe) 10 - 40 ml IV UD PRN PRN Reason: SALINE FLUSH Last Admin: 04/17/20 18:39 Dose: 10 ml Documented by: Home Medications: Medications to take at Discharge Levothyroxine [Synthroid] 75 mcg PO DAILY 09/01/13 Duloxetine HCl 30 mg PO DAILY 07/07/19 Rosuvastatin Calcium [Crestor] 20 mg PO DAILY 07/07/19 Metoprolol Tartrate 25 mg PO BID 11/23/19 Vancomycin IV 2,000 mg IV Q12H 27 Days #54 vial 04/18/20 Gabapentin [Neurontin] 800 mg PO TIDCM #30 tab 04/19/20 Mupirocin [Bactroban] 1 applic TOPICAL DAILY tube 04/19/20 Following Prescriptions Were Given to Patient: Gabapentin [Neurontin] 800 mg PO TIDCM #30 tab Transmission Status: Received by [facility] Vancomycin IV 2,000 mg IV Q12H 27 Days #54 vial Prescription Printed Primary Care Physician: Clement Buckner MD [Primary Care Provider] - Please follow up with your Primary Care Physician in: In 1 to 2 weeks Please Follow Up With: Dionte Plata MD When: In 2 weeks Please Follow Up With: Daniel Almendarez MD When: As needed for antibiotic issues. Medical Necessity - Tobacco Use Smoking Status: Current every day smoker Tobacco Use: Cigarettes Meaningful Use Info Meaningful Use Diagnoses (Choose all that apply): None applicable Inpatient E&M: 30898 Disch Hosp
--- NOTE | 2020-04-19 13:51 | CASEMGMT ---
Addendum entered by Glendy Maher 04/19/20 15:45: SW updated pt on approval, discharge and transportation time to [facility] today. Pt states understanding, denied additional needs or concerns at this time. SW waiting for surgeon to complete narcotic script for SNF. Addendum entered by Glendy Maher 04/19/20 14:45: SW completed convalescent [facility] in [facility]. CARLTON spoke with RN, pt can transport via cot requests transportation to be arranged for 6:00pm due to pt still needing PICC Line, medications and pt's COVID test to come back. CARLTON accessed trip assist and arranged transportation via cot for 6:00pm. Transportation form completed. CARLTON updated RN on transportation time. CARLTON attempted to update pt, PICC Line currently getting placed. CARLTON wrote on fax coversheet that transportation is arranged for 6:00pm. Discharge paperwork to be faxed once completed. Original Note: Social Work Note CARLTON received message from Jaelyn at [facility] stating pre-cert has been obtained and pt is able to discharge to [facility] today. Jaelyn states they will need another COVID test as it has to be completed within 72 hours of pt's discharge. CARLTON updated physician and charge nurse. Pt needs to get PICC line placed. CARLTON placed a call to Jaelyn at [facility] and updated her pt will be discharged today after pt gets PICC line placed and once pt's COVID test comes back. Jaelyn states this worker can just write on discharge paperwork transportation time for pt. Plan: Discharge to [facility] today Glendy Maher WOOL CARDER, BARREL HANDLER
--- NOTE | 2020-04-19 13:59 | PN.SURG_ITS ---
Patient Problems: Active and Suspected Problems Redness of the left leg and foot (Acute) Type 2 diabetes mellitus with foot ulcer (Acute) Sepsis (Acute) Osteomyelitis (Acute) Cellulitis of lower extremity (Acute) Subjective: postop day #2 Patient sitting up in chair. He states he is having pain in his right BKA stump. - Physical Exam Vitals/I&O's: Vital Signs Temp Pulse Resp BP Pulse Ox 98.4 F 68 18 115/74 97 04/19/20 08:20 04/19/20 08:27 04/19/20 08:20 04/19/20 08:20 04/19/20 08:20 Oxygen Flow Rate (L/min) 97 Oxygen Delivery Method Room Air Weight: 180 lb 15.992 oz Body Mass Index (BMI) 23.8 Finger Stick Blood Glucose 91 Intake and Output for Last 24 Hours 04/17/20 04/18/20 04/19/20 23:59 23:59 23:59 Intake Total 4015 / 4015 2565 / 2565 1735 / 1735 Output Total 3090 / 3090 2340 / 2340 2550 / 2550 Balance 925 / 925 225 / 225 -815 / -815 General: Alert, Oriented x3 HEENT: Atraumatic Oral: Moist Mucosa Lungs: Normal air movement Cardiovascular: Regular rate Extremities: Capillary Refill Less than 3 Seconds Skin: Incision - Left BKA stump incision is dry and intact and stable. Dressing is dry and intact. Wound nurse photos reviewed. Musculoskeletal: Tenderness Neurological: Cranial nerves II-XII grossly intact Psych/Mental Status: Normal Affect, Appropriate Microbiology Past 72 Hours 04/14/20 13:03 Blood Culture (Wb) - Anticubital Right Blood Culture - Final No growth in 5 days. 04/13/20 09:45 Blood Culture (Wb) - Right Hand Blood Culture - Final No growth in 5 days. 04/12/20 14:56 Blood Culture (Wb) - Anticubital Right Blood Culture - Final No growth in 5 days. 04/11/20 18:45 Bone - Left Foot Gram Stain - Final 04/11/20 18:45 Bone - Left Foot Wound Culture - Final Meth. resistant Staph. aureus Staphylococcus aureus#2 Streptococcus mitis 04/11/20 18:45 Bone - Left Foot Anaerobic Culture - Final Anaerobic cocci 04/11/20 07:20 Wound Abcess - Left Foot Gram Stain - Final 04/11/20 07:20 Wound Abcess - Left Foot Wound Culture - Final Staphylococcus aureus Streptococcus mitis/ oralis Corynebacterium species Alcaligenes faecalis ssp faeca Klebsiella oxytoca 04/11/20 07:20 Wound Abcess - Left Foot Anaerobic Culture - Final Anaerobic cocci 04/11/20 18:46 Bone - Left Foot Gram Stain - Final 04/11/20 18:46 Bone - Left Foot Wound Culture - Final Staphylococcus aureus Streptococcus mitis/ oralis 04/11/20 18:46 Bone - Left Foot Anaerobic Culture - Final Anaerobic cocci 04/11/20 18:42 Wound - Left Foot Gram Stain - Final 04/11/20 18:42 Wound - Left Foot Wound Culture - Final Meth. resistant Staph. aureus Staphylococcus aureus#2 Streptococcus mitis/ oralis 04/11/20 18:42 Wound - Left Foot Anaerobic Culture - Final Laboratory Results 04/18/20 22:48: Random Vancomycin 13.6 04/19/20 08:49: WBC 12.6 H, RBC 4.52 L, Hgb 11.5 L, Hct 36.6 L, MCV 81.0, MCH 25.4 L, MCHC 31.4 L, RDW Std Deviation 43.2, RDW Coeff of Jesus 14.9 H, Plt Count 469 H, MPV 9.5, Immature Gran % (Auto) 0.700, Neut % (Auto) 76.2 H, Lymph % (Auto) 12.8 L, [place] % (Auto) 7.5, Eos % (Auto) 2.2, Baso % (Auto) 0.6, Absolute Neuts (auto) 9.6 H, Absolute Lymphs (auto) 1.61, Nucleated RBC % 0 Current Medications Acetaminophen (Acetaminophen 325 Mg Tablet) 650 mg PO Q6H PRN PRN PRN Reason: Temp > 100.4 F Last Admin: 04/18/20 08:46 Dose: 650 mg Documented by: Atorvastatin Calcium (Atorvastatin Calcium 40 Mg Tablet) 40 mg PO QHS [facility] Last Admin: 04/18/20 21:28 Dose: 40 mg Documented by: Diazepam (Diazepam 5 Mg Tablet) 5 mg PO 4X/DAY PRN PRN PRN Reason: SPASMS Last Admin: 04/18/20 08:46 Dose: 5 mg Documented by: Duloxetine HCl (Duloxetine Hcl 30 Mg Capsule) 30 mg PO DAILY [facility] Last Admin: 04/19/20 08:26 Dose: 30 mg Documented by: Enoxaparin Sodium (Enoxaparin 40 Mg/0.4 Ml Syringe) 40 mg SC DAILY@0600 [facility] Last Admin: 04/19/20 05:40 Dose: 40 mg Documented by: Gabapentin (Gabapentin 800 Mg Tablet) 800 mg PO TIDCM [facility] Last Admin: 04/19/20 12:08 Dose: 800 mg Documented by: Sodium Chloride () 250 mls @ 15 mls/hr IV .[id number] PRN PRN Reason: Saline Flush Last Infusion: 04/17/20 08:00 Dose: Infused Documented by: Sodium Chloride () 250 mls @ 15 mls/hr IV .[id number] PRN PRN Reason: Additional IVPB Infusion Last Infusion: 04/17/20 08:00 Dose: Infused Documented by: Sodium Chloride () 1,000 mls @ 15 mls/hr IV .Q48H [facility] Last Admin: 04/18/20 18:11 Dose: Not Given Documented by: Piperacillin Sod/Tazobactam (Sod 3.375 gm/ Sodium Chloride) 50 mls @ 12.5 m ls/hr IV Q8 [facility] Last Infusion: 04/19/20 09:40 Dose: Infused Documented by: Sodium Chloride () 250 mls @ 15 mls/hr IV .[id number] PRN PRN Reason: Additional IVPB Infusion Vancomycin IV Pharmacy to Dose (1 ea/ Sodium Chloride) 500 mls @ 250 mls/hr IV X1 PRN; Protocol PRN Reason: Rx to Dose Vancomycin HCl 1,750 mg/ (Sodium Chloride) 535 mls @ 180 mls/hr IV Q12H [facility] Last Admin: 04/19/20 12:06 Dose: 180 mls/hr Documented by: L-Arginine/L-Glutamine/Calcium HMB (Robert (Unflavored) Packet) 1 packet PO BIDCM [facility] Last Admin: 04/19/20 08:27 Dose: 1 packet Documented by: Levothyroxine Sodium (Levothyroxine 75 Mcg Tablet) 75 mcg PO DAILY@0600 [facility] Last Admin: 04/19/20 05:40 Dose: 75 mcg Documented by: Metoprolol Tartrate (Metoprolol Tartrate 25 Mg Tablet) 25 mg PO BID [facility] Last Admin: 04/19/20 08:27 Dose: 25 mg Documented by: Morphine Sulfate (Morphine 10 Mg/Ml Syringe) 6 mg IV Q3H PRN PRN PRN Reason: Pain Score 6-10 Last Admin: 04/18/20 10:41 Dose: 6 mg Documented by: Mupirocin (Mupirocin Ointment 22gm Tube) 1 applic TOPICAL DAILY [facility]; Protocol Last Admin: 04/19/20 08:26 Dose: 1 applicatio Documented by: Nutritional Formula (Lactose Free) (Ensure Enlive 120 Ml Liquid) 120 ml PO 4X/DAY [facility] Last Admin: 04/19/20 08:22 Dose: Not Given Documented by: Ondansetron HCl (Ondansetron 4 Mg/2 Ml Vial) 4 mg IV Q8H PRN PRN PRN Reason: NAUSEA/VOMITING Last Admin: 04/13/20 07:43 Dose: 4 mg Documented by: Oxycodone HCl (Oxycodone 5 Mg Tablet) 10 mg PO Q4H PRN PRN PRN Reason: Pain Score 4-5 Last Admin: 04/19/20 08:31 Dose: 10 mg Documented by: Sodium Chloride (0.9% Saline Lock 10 Ml Syringe) 10 - 40 ml IV UD PRN PRN Reason: SALINE FLUSH Last Admin: 04/17/20 18:39 Dose: 10 ml Documented by: Medical Necessity - Tobacco Use Smoking Status: Current every day smoker Tobacco Use: Cigarettes Assessment/Plan All Active Problems Abscess of left foot (Acute) MRSA (methicillin resistant Staphylococcus aureus) infection (Acute) Redness of the left leg and foot (Acute) Type 2 diabetes mellitus with foot ulcer (Acute) Sepsis (Acute) Osteomyelitis (Acute) Cellulitis of lower extremity (Acute) 1. Complex nonhealing diabetic abscess ulcer left foot. 2. Osteomyelitis. 3. Diabetes with neuropathy. 4. Sepsis. 5. History of transmetatarsal amputation left foot. 6. MRSA. 7. Smoker. 8. Homeless. 9. s/p left BKA. Continue Vancomycin and Zosyn for polymicrobial infection, (MRSA, Staphylococcus aureus, Streptococcus mitis, and Anaerobic cocci in the bone; MRSA Staphylococcus aureus, Streptococcus mitis, Corynebacterium species, Alcaligenes faecalis, Klebsiella oxytoca, and Anaerobic cocci in the soft tis ary: MRSA, Staphylococcus aureus, and Streptococcus mitis in the blood). Stump incision is dry and intact. Stump is soft without clinical evidence of hematoma. No evidence of vascular compromise in the flap. Prealbumin was 12.9. Encourage nutritional supplementation with protein to help the healing process. He is going to [facility] possibly today. Encouraged patient to stop smoking as it may have deleterious effects on wound healing. Follow up at wound center on May 08, 2020 to remove his Vinny drain and half of his sutures.
[2020-04-19 14:30] VITALS: BP 108/59; PULSE 81; RESP 16; TEMP 37.2; O2SAT 95
--- NOTE | 2020-04-19 14:45 | NURSING ---
nutrition director arrived to place PICC line.
--- NOTE | 2020-04-19 15:50 | CASEMGMT ---
Addendum entered by Glendy Maher 04/19/20 16:10: SW did place a call to Surgeon (Dr. Plata) and left message regarding needing oxy script for SNF and that pt will be transported at 6:00pm. Instructed surgeon to call [facility] with any questions as this worker is leaving for the day. SW updated charge nurse that COVID tool, COVID result, and narcotic script will need to be faxed to [facility] when available. Original Note: Social Work Note SW faxed discharge paperwork that is available at this time to [facility] including transfer to extended care facility, signed medication list, scripts, and HENS. Original in SNF folder and copy on pt's chart. CARLTON wrote on fax coversheet transportation time and that COVID test results will be faxed before pt discharges. Surgeon still needs to write narcotics script and COVID test results will need to be faxed before pt is able to discharge to [facility]. Green sheet on chart. Plan: [facility] skilled today with [facility] transporting via cot at 6:00pm Glendy JOHNSON, CHASER APPRENTICE
--- NOTE | 2020-04-19 16:39 | NURSING ---
Report called to Glenny at [facility].
--- NOTE | 2020-04-19 16:50 | NURSING ---
Left message with Dr. Plata's office regarding pain medication script at discharge. Nurse stated he was in with a patient, but as soon as he is free she will tell him.
--- NOTE | 2020-04-20 10:11 | CASEMGMT ---
Social Work Note SW received message from Jaelyn at [facility] stating COVID test was never faxed to her last night. CARLTON faxed COVID screening tool and COVID test to Jaelyn. Glendy Maher CIRCULAR STUFFER, SCHEDULER
== END 2020-04-19 18:50 | disposition skilled nursing facility (03) | DRG 474 ==
LOC: ED 05:12 → MS3 06:12
PROVIDERS: Family Medicine; Internal Medicine Infectious Disease; Podiatrist Foot & Ankle Surgery; Surgery; Admitting Provider Family Medicine; Emergency Provider Student in an Organized Health Care Education/Training Program; PCP Family Medicine; Visit Provider Internal Medicine
PROC: 0Y6N0ZF Detachment at Left Foot, Partial 5th Ray, Open Approach (ICD-10-PCS; principal; 2020-04-11 15:20)
PROC: 0Y6J0Z1 Detachment at Left Lower Leg, High, Open Approach (ICD-10-PCS; principal; 2020-04-17 07:15)
DX: T87.44 Infection of amputation stump, left lower extremity (principal); A41.02 Sepsis due to Methicillin resistant Staphylococcus aureus; R65.20 Severe sepsis without septic shock; L03.116 Cellulitis of left lower limb; M86.172 Other acute osteomyelitis, left ankle and foot; L97.428 Non-pressure chronic ulcer of left heel and midfoot with other specified severity; E11.69 Type 2 diabetes mellitus with other specified complication; E11.621 Type 2 diabetes mellitus with foot ulcer; Z59.0 Homelessness; E03.9 Hypothyroidism, unspecified; E78.5 Hyperlipidemia, unspecified; K21.9 Gastro-esophageal reflux disease without esophagitis; I25.10 Atherosclerotic heart disease of native coronary artery without angina pectoris; Z86.718 Personal history of other venous thrombosis and embolism; I10 Essential (primary) hypertension; F17.210 Nicotine dependence, cigarettes, uncomplicated; F32.9 Major depressive disorder, single episode, unspecified; F41.9 Anxiety disorder, unspecified; B95.4 Other streptococcus as the cause of diseases classified elsewhere
CPT/HCPCS: 36415; 36569; 73590; 73610; 73630; 73720; 80048; 80053; 80202; 81001; 82962; 83036; 83605; 83735; 84100; 84134; 84145; 84443; 85014; 85018; 85025; 85027; 85610; 85652; 86140; 87015; 87040; 87070; 87075; 87077; 87086; 87088; 87102; 87116; 87149; 87176; 87177; 87186; 87205; 87206; 87209; 87426; 87493; 87506; 87635; 88304; 88305; 88307; 88311; 93005; 93306; 93923; 97110; 97162; 97165; 97530; 97535; 97802; 99284; 99406; A9575; J7030; J7040; J7050; J7120; Q9957; A4216; C8929; J2405; U0002

== ENCOUNTER 2020-05-15 08:20 | Outpatient (RCR) | payer MEDICARE, MEDICAID, SELFPAY ==
[2019-07-08 12:56] VITALS: BMI 23.2
[2020-04-17 05:47] VITALS: BMI 23.8
[2020-05-15 08:39] VITALS: BP 123/79; PULSE 96; RESP 16; TEMP 36; BMI 23.1
--- NOTE | 2020-05-15 13:09 | PCM.WC.HP ---
(1) Below-knee amputation of left lower extremity Status: Acute Code(s): S88.112A - Complete traumatic amputation at level between knee and ankle, left lower leg, initial encounter (2) Osteomyelitis Status: Acute Code(s): M86.9 - Osteomyelitis, unspecified (3) Cellulitis of lower extremity Status: Acute Code(s): L03.119 - Cellulitis of unspecified part of limb (4) History of transmetatarsal amputation of left foot Status: Chronic Code(s): Z89.432 - Acquired absence of left foot (5) MRSA (methicillin resistant Staphylococcus aureus) infection Status: Acute Code(s): A49.02 - Methicillin resistant Staphylococcus aureus infection, unspecified site (6) Current smoker Status: Chronic Code(s): F17.200 - Nicotine dependence, unspecified, uncomplicated (7) Homelessness Status: Chronic Code(s): Z59.0 - Homelessness (8) Type 2 diabetes mellitus with foot ulcer Status: Acute Code(s): E11.621 - Type 2 diabetes mellitus with foot ulcer; L97.509 - Non-pressure chronic ulcer of other part of unspecified foot with unspecified severity History of Present Illness Date of Service: 05/15/20 Chief Complaint: A wound to the left great toe slightly over a year occurring June 2013 History of Wound: Patient presented emergency department and was admitted on 04/11/20 for worsening left foot ulceration. Patient was homeless. Patient had multiple previous surgeries to the left foot, the most recent in November, where he underwent revision transmetatarsal amputation. Surgery on 04/17/20 - Left below knee amputation. Surgery 04/11/20 - Incision and drainage left foot with bone biopsy and debridement with revision of amputation. Discharged to [facility] on Vancomycin for polymicrobial infection, (MRSA, Staphylococcus aureus, Streptococcus mitis, and Anaerobic cocci in the bone; MRSA Staphylococcus aureus, Streptococcus mitis, Corynebacterium species, Alcaligenes faecalis, Klebsiella oxytoca, and Anaerobic cocci in the soft tissue: MRSA, Staphylococcus aureus, and Streptococcus mitis in the blood). Prealbumin was 12.9 on 04/18/20. Encourage nutritional supplementation with protein to help the healing process. Patient denies fever. He states his appetite has been good and he has been eating better since being in [facility]. Past Medical History Past Medical History: Chronic Problems History of transmetatarsal amputation of left foot (Chronic) Current smoker (Chronic) Type 2 diabetes mellitus with foot ulcer (Chronic) Homelessness (Chronic) Hypothyroidism (Chronic) History of hyperlipidemia (Chronic) History of gastroesophageal reflux (GERD) (Chronic) Deep venous thrombosis of upper extremity (Chronic) CAD (coronary artery disease) (Chronic) Benign essential hypertension (Chronic) Surgical History: coronary bypass surgery, - - Coronary artery stent placement April 2017, amputation of the left great toe Left TMA in November,. Allergies/Adverse Reactions: Allergies colesevelam HCl [From WelChol] Allergy (Verified 05/15/20 08:49) Rash dicyclomine Allergy (Verified 05/15/20 08:49) Rash divalproex sodium [From Depakote] Allergy (Verified 05/15/20 08:49) Unknown rofecoxib [From Vioxx] Allergy (Verified 05/15/20 08:49) Rash vancomycin Adverse Reaction (Verified 05/15/20 08:49) Rash Home Medications: Ambulatory Orders Medication Instructions Recorded Levothyroxine [Synthroid] 75 mcg PO DAILY 09/01/13 Duloxetine HCl 30 mg PO DAILY 07/07/19 Rosuvastatin Calcium [Crestor] 20 mg PO DAILY 07/07/19 Metoprolol Tartrate 25 mg PO BID 11/23/19 Diazepam [Valium] 5 mg PO 4X/DAY PRN PRN #30 tab 04/19/20 Gabapentin [Neurontin] 800 mg PO TIDCM #30 tab 04/19/20 Mupirocin [Bactroban] 1 applic TOPICAL DAILY tube 04/19/20 - Family History Maternal Diabetes Paternal Cancer - Lung cancer Smoking Status: Current every day smoker Review of Systems Constitutional: Denies: Chills, Fever, Weight Change Eyes: Denies: Pain, Vision Change HEENT: Denies: Difficulty Hearing, Difficulty Swallowing, Sinus Congestion Cardiovascular: Denies: Chest Pain, Palpitations Respiratory: Denies: Cough, Shortness of Breath Gastrointestinal: Denies: Diarrhea, Nausea, Vomiting Musculoskeletal: Reports: Leg Pain - Left BKA pain/phantom pain. Skin: Reports: - - Left BKA stump incision with a drain. Neurological: Denies: Blurred vision, Change in Speech Psychiatric: Denies: Anxiety, Depression Endocrine: Denies: Heat/ Cold Intolerance - Physical Exam Vital Signs Temp Pulse Resp BP 96.8 F L 96 16 123/79 H 05/15/20 08:39 05/15/20 08:39 05/15/20 08:39 05/15/20 08:39 General: Alert, Oriented x3, Cooperative HEENT: Atraumatic Oral: Moist Mucosa Lungs: Normal air movement Cardiovascular: Regular rate Abdomen: Soft Extremities: Capillary Refill Less than 3 Seconds, Edema - Left BKA stump. Skin: Incision - Left BKA stump incision is dry and intact. Sutures intact. Vinny drain with small amount of serosanguineous drainage. Drain and sutures removed without difficulty. Wound Measurements and Assessment WC - Nurse 1 - General Ulcer Measurement Start: 05/15/20 08:26 Freq: Status: Active Protocol: Activity Type Activity Date Activity User E-Sign Co-Sign Detail Recorded Client Recorded Date Recorded By Document 05/15/20 08:39 DL [id number] 05/15/20 08:47 DL 05/15/20 08:39 Wound Center Nurse 1 [Ulcer Assessment] #2- L BKA POST OP (INCISIONAL) -Combined with other wound No -Current Size (cm) - Length 0.1 -Current Size (cm) - Width 0.1 -Current Size (cm) - Depth 0.1 -Total Square Cm 0.01 -Date of Last Picture (Recall this 05/15/20 field) -Photo Taken Yes -Epithelialization None Present -Tunneling No -Undermining/Tunneling No -Circular Undermining No -Exudate Amt None Present -Exudate Type Serosanguineous -Wound Margin Distinct, Outline Attached -Granulation Amt None Present (0 %) -Slough/Fibrin Yes -Necrosis Amt Small (1-33%) -Necrotic Tissue Type Adherent Slough -Texture (Yudy-wound Skin Appearance) Assessed, Localized Edema ,Scarring -Moisture (Yudy-wound Skin Appearance Assessed ) -Color (Yudy-wound Skin Appearance) Assessed, Erythema -Temperature (Yudy-wound Skin No Abnormality Appearance) (Pt Warm) -Tenderness on Palpation (Yudy-wound No Skin Appearance) -Ulcer Cleansing SOAPY WATER -Foul Odor after Cleansing No -Anesthetic Used 4% Lidocaine Solution WC - Nurse 2 - General Ulcer CM Notes Start: 05/15/20 08:26 Freq: Status: Active Protocol: Activity Type Activity Date Activity User E-Sign Co-Sign Detail Recorded Client Recorded Date Recorded By Document 05/15/20 09:22 [id number] 05/15/20 09:29 05/15/20 09:22 Wound Center Nurse 2 [Procedure/Treatment] -Correct Patient No -Correct Side, Site, Position No -Correct Procedure No -Procedure Performed No -Wound/Ulcer Outcome Healed- Surgical Closure -Ulcer Cleansing Rinsed/ Irrigated with Saline -Foul Odor after Cleansing No -Bioengineered Tissue No [See Physician Procedure note for Specifics] Pain Scale: 0-10 Numeric [Pain] -Is Patient Pain Free? Yes - Nurse 3 - General Ulcer D/C NN Start: 05/15/20 08:26 Freq: Status: Active Protocol: Activity Type Activity Date Activity User E-Sign Co-Sign Detail Recorded Client Recorded Date Recorded By Document 05/15/20 09:38 [facility] [id number] 05/15/20 09:39 [facility] 05/15/20 09:38 Wound Care Nurse 3 [Wound Dressing] #2- L BKA POST OP (INCISIONAL) -Ulcer Cleansing Rinsed/ Irrigated with Saline -Foul Odor after Cleansing No -Primary Dressing Covered/Secured Dry Gauze, with Secured with Tape,Other -Other Covering chalino to secure [Compression Applied] Left -Compression Wrap Chalino Wrap [Post Procedure Tolerated] -Treatment Response Procedure Tolerated Well Pain Scale: 0-10 Numeric [Pain] -Is Patient Pain Free? Yes - Visit Discharge [Visit Discharge Information] -Discharge Condition Stable -Ambulatory Status Ambulatory -Transportation [facility] transport [Facility Notification] -Facility Type [facility] Care Facility Musculoskeletal: No Tenderness to Palpation of Joints or Extremities Neurological: Cranial nerves II-XII grossly intact Psych/Mental Status: Normal Affect, Appropriate Debridement Note Post-Debridement Measurements/Treatment - Nurse 2 - General Ulcer CM Notes Start: 05/15/20 08:26 Freq: Status: Active Protocol: Activity Type Activity Date Activity User E-Sign Co-Sign Detail Recorded Client Recorded Date Recorded By Document 05/15/20 09:22 [id number] 05/15/20 09:29 05/15/20 09:22 Wound Center Nurse 2 #2- L BKA POST OP (INCISIONAL) -Correct Patient No -Correct Side, Site, Position No -Correct Procedure No -Procedure Performed No -Wound/Ulcer Outcome Healed- Surgical Closure -Ulcer Cleansing Rinsed/ Irrigated with Saline -Foul Odor after Cleansing No -Bioengineered Tissue No Pain Scale: 0-10 Numeric Is Patient Pain Free? Yes - Nurse 3 - General Ulcer D/C NN Start: 05/15/20 08:26 Freq: Status: Active Protocol: Activity Type Activity Date Activity User E-Sign Co-Sign Detail Recorded Client Recorded Date Recorded By Document 05/15/20 09:38 [facility] [id number] 05/15/20 09:39 [facility] 05/15/20 09:38 Wound Care Nurse 3 #2- L BKA POST OP (INCISIONAL) -Ulcer Cleansing Rinsed/ Irrigated with Saline -Foul Odor after Cleansing No -Primary Dressing Covered/Secured with Dry Gauze, Secured with Tape,Other -Other Covering chalino to secure Left -Compression Wrap Chalino Wrap Treatment Response Procedure Tolerated Well Pain Scale: 0-10 Numeric Is Patient Pain Free? Yes - Visit Discharge Discharge Condition Stable Ambulatory Status Ambulatory Transportation [facility] transport Facility Type [facility] Care Facility No debridement was completed today Assessment/Plan Active Problems History of transmetatarsal amputation of left foot (Chronic) Current smoker (Chronic) MRSA (methicillin resistant Staphylococcus aureus) infection (Acute) Osteomyelitis (Acute) Homelessness (Chronic) Cellulitis of lower extremity (Acute) Assessment: 1. s/p left BKA. 2. Complex nonhealing diabetic abscess ulcer left foot. 3. Osteomyelitis. 4. Diabetes with neuropathy. 5. Sepsis. 6. History of transmetatarsal amputation left foot. 7. MRSA. 8. Smoker. 9. Homeless. Plan: Discharged to [facility] on Vancomycin for polymicrobial infection, (MRSA, Staphylococcus aureus, Streptococcus mitis, and Anaerobic cocci in the bone; MRSA Staphylococcus aureus, Streptococcus mitis, Corynebacterium species, Alcaligenes faecalis, Klebsiella oxytoca, and Anaerobic cocci in the soft tissue: MRSA, Staphylococcus aureus, and Streptococcus mitis in the blood). Stump incision is dry and intact. Stump is soft without clinical evidence of hematoma. No evidence of vascular compromise in the flap. Vinny drain and sutures removed without difficulty. Incisional care - Wash area with soap and water daily. Massage the incision with lotion daily. May place gauze over incision before placing CHALINO wrap for compression. Prealbumin was 12.9. Encourage nutritional supplementation with protein to help the healing process. Encouraged patient to stop smoking as it may have deleterious effects on wound healing. Follow up 2 weeks. [id number]: [id number] Global Visit
== END 2020-05-21 23:59 ==
LOC: WC 08:20
PROVIDERS: PCP Family Medicine; Referring Provider Podiatrist; Visit Provider Surgery
DX: Z89.512 Acquired absence of left leg below knee (principal); E11.40 Type 2 diabetes mellitus with diabetic neuropathy, unspecified; F17.200 Nicotine dependence, unspecified, uncomplicated; Z86.31 Personal history of diabetic foot ulcer; Z87.39 Personal history of other diseases of the musculoskeletal system and connective tissue; B95.62 Methicillin resistant Staphylococcus aureus infection as the cause of diseases classified elsewhere; B95.4 Other streptococcus as the cause of diseases classified elsewhere; A36.89 Other diphtheritic complications; A48.8 Other specified bacterial diseases; Z59.0 Homelessness
CPT/HCPCS: 99213; G0463

== ENCOUNTER 2020-06-19 11:00 | Outpatient (RCR) | payer MEDICARE, SELFPAY ==
[2020-05-22 00:04] VITALS: BP 123/79; PULSE 96; RESP 16; TEMP 36
[2020-05-29 10:56] VITALS: BP 116/69; PULSE 67; RESP 18; TEMP 36.1; BMI 23.1
--- NOTE | 2020-05-29 13:55 | PCM.WC.PN ---
(1) Below-knee amputation of left lower extremity Status: Chronic Code(s): S88.112A - Complete traumatic amputation at level between knee and ankle, left lower leg, initial encounter (2) Current smoker Status: Chronic Code(s): F17.200 - Nicotine dependence, unspecified, uncomplicated (3) History of transmetatarsal amputation of left foot Status: Chronic Code(s): Z89.432 - Acquired absence of left foot (4) MRSA (methicillin resistant Staphylococcus aureus) infection Status: Acute Code(s): A49.02 - Methicillin resistant Staphylococcus aureus infection, unspecified site (5) Type 2 diabetes mellitus Status: Chronic Code(s): E11.9 - Type 2 diabetes mellitus without complications Type of Wound Date of Service: 05/29/20 Chief Complaint: A wound to the left great toe slightly over a year occurring June 2013 History of Wound: Patient presented emergency department and was admitted on 04/11/20 for worsening left foot ulceration. Patient was homeless. Patient had multiple previous surgeries to the left foot, the most recent in November, where he underwent revision transmetatarsal amputation. Surgery on 04/17/20 - Left below knee amputation. Surgery 04/11/20 - Incision and drainage left foot with bone biopsy and debridement with revision of amputation. Wound care?collagen hydrogel to incision line for several small open areas where sutures were removed. Cover with gauze. Chalino wrap for compression. Discharged to [facility] on Vancomycin for polymicrobial infection, (MRSA, Staphylococcus aureus, Streptococcus mitis, and Anaerobic cocci in the bone; MRSA Staphylococcus aureus, Streptococcus mitis, Corynebacterium species, Alcaligenes faecalis, Klebsiella oxytoca, and Anaerobic cocci in the soft tissue: MRSA, Staphylococcus aureus, and Streptococcus mitis in the blood). Prealbumin was 12.9 on 04/18/20. Encourage nutritional supplementation with protein to help the healing process. Patient denies fever. He states his appetite has been good and he has been eating better since being in [facility]. Progress of Wound: Mostly healed. There are several small open areas that we will place collagen hydrogel on for a week. - Physical Exam Vital Signs Temp Pulse Resp BP 97 F L 67 18 116/69 05/29/20 10:56 05/29/20 10:56 05/29/20 10:56 05/29/20 10:56 General: Alert, Oriented x3, Cooperative HEENT: Atraumatic Oral: Moist Mucosa Lungs: Normal air movement Cardiovascular: Regular rate Extremities: Capillary Refill Less than 3 Seconds, Edema Skin: Incision - Left BKA stump incision is dry and intact except for couple small areas where some remaining sutures were removed today. Wound Measurements and Assessment FREDI - Nurse 1 - General Ulcer Measurement Start: 05/29/20 10:56 Freq: Status: Active Protocol: Activity Type Activity Date Activity User E-Sign Co-Sign Detail Recorded Client Recorded Date Recorded By Document 05/29/20 10:56 [facility] [id number] 05/29/20 11:01 [facility] 05/29/20 10:56 Wound Center Nurse 1 [Ulcer Assessment] #2- L BKA POST OP (INCISIONAL) -Combined with other wound No -Current Size (cm) - Length 0.1 -Current Size (cm) - Width 0.1 -Current Size (cm) - Depth 0.1 -Total Square Cm 0.01 -Epithelialization Large 67-100% -Texture (Yudy-wound Skin Appearance) Assessed, Scarring -Color (Yudy-wound Skin Appearance) Assessed -Temperature (Yudy-wound Skin No Abnormality Appearance) (Pt Warm) -Tenderness on Palpation (Yudy-wound No Skin Appearance) -Ulcer Cleansing Rinsed/ Irrigated with Saline -Foul Odor after Cleansing No WC - Nurse 2 - General Ulcer CM Notes Start: 05/29/20 10:56 Freq: Status: Active Protocol: Activity Type Activity Date Activity User E-Sign Co-Sign Detail Recorded Client Recorded Date Recorded By Document 05/29/20 11:15 [id number] 05/29/20 11:20 05/29/20 11:15 Wound Center Nurse 2 [Procedure/Treatment] -Correct Patient No -Correct Side, Site, Position No -Correct Procedure No -Procedure Performed No -Post Debridement (cm) - Length 0 -Post Debridement (cm) - Width 0 -Post Debridement (cm) - Depth 0 -Total Square (Post) (cm) 0 -Area of Debridement (cm) - Length 0 -Area of Debridement (cm) - Width 0 -Total Square (Area) (cm) 0 -Wound/Ulcer Outcome Healed- Epithelialized [See Physician Procedure note for Specifics] Pain Scale: 0-10 Numeric [Pain] -Is Patient Pain Free? Yes - Nurse 3 - General Ulcer D/C NN Start: 05/29/20 10:56 Freq: Status: Active Protocol: Activity Type Activity Date Activity User E-Sign Co-Sign Detail Recorded Client Recorded Date Recorded By Document 05/29/20 11:32 [facility] [id number] 05/29/20 11:33 [facility] 05/29/20 11:32 Vital Signs [Comments] -Comment hydrogel to suture removal sites today, gauze and chalino to secure Pain Scale: 0-10 Numeric [Pain] -Is Patient Pain Free? Yes - Visit Discharge [Visit Discharge Information] -Discharge Condition Stable -Ambulatory Status Wheelchair [Facility Notification] -Facility Type Nursing Home Care Facility Musculoskeletal: No Tenderness to Palpation of Joints or Extremities Neurological: Cranial nerves II-XII grossly intact Psych/Mental Status: Normal Affect, Appropriate Debridement Note Post-Debridement Measurements/Treatment - Nurse 2 - General Ulcer CM Notes Start: 05/29/20 10:56 Freq: Status: Active Protocol: Activity Type Activity Date Activity User E-Sign Co-Sign Detail Recorded Client Recorded Date Recorded By Document 05/29/20 11:15 [id number] 05/29/20 11:20 05/29/20 11:15 Wound Center Nurse 2 #2- L BKA POST OP (INCISIONAL) -Correct Patient No -Correct Side, Site, Position No -Correct Procedure No -Procedure Performed No -Post Debridement (cm) - Length 0 -Post Debridement (cm) - Width 0 -Post Debridement (cm) - Depth 0 -Total Square (Post) (cm) 0 -Area of Debridement (cm) - Length 0 -Area of Debridement (cm) - Width 0 -Total Square (Area) (cm) 0 -Wound/Ulcer Outcome Healed- Epithelialized Pain Scale: 0-10 Numeric Is Patient Pain Free? Yes - Nurse 3 - General Ulcer D/C NN Start: 05/29/20 10:56 Freq: Status: Active Protocol: Activity Type Activity Date Activity User E-Sign Co-Sign Detail Recorded Client Recorded Date Recorded By Document 05/29/20 11:32 [facility] [id number] 05/29/20 11:33 [facility] 05/29/20 11:32 Vital Signs Comment hydrogel to suture removal sites today, gauze and chalino to secure Pain Scale: 0-10 Numeric Is Patient Pain Free? Yes - Visit Discharge Discharge Condition Stable Ambulatory Status Wheelchair Facility Type Nursing Home Care Facility No debridement was completed today Assessment/Plan Assessment: 1. s/p left BKA. 2. Complex nonhealing diabetic abscess ulcer left foot. 3. Osteomyelitis. 4. Diabetes with neuropathy. 5. Sepsis. 6. History of transmetatarsal amputation left foot. 7. MRSA. 8. Smoker. 9. Homeless. Plan: Discharged to [facility] on Vancomycin for polymicrobial infection, (MRSA, Staphylococcus aureus, Streptococcus mitis, and Anaerobic cocci in the bone; MRSA Staphylococcus aureus, Streptococcus mitis, Corynebacterium species, Alcaligenes faecalis, Klebsiella oxytoca, and Anaerobic cocci in the soft tissue: MRSA, Staphylococcus aureus, and Streptococcus mitis in the blood). Stump incision is dry and intact. Stump is soft without clinical evidence of hematoma. No evidence of vascular compromise in the flap. Vinny drain and sutures removed without difficulty. Incisional care - Wash area with soap and water daily. Massage the incision with lotion daily. We will have them place collagen hydrogel over couple small open areas where pieces of suture removed today. Cover with gauze. May place gauze over incision before placing CHALINO wrap for compression. Prealbumin was 12.9. Encourage nutritional supplementation with protein to help the healing process. Encouraged patient to stop smoking as it may have deleterious effects on wound healing. If PT thinks is appropriate, can start stump value analysis coordinator from [employer] or whatever company they use at the [facility] where he is staying. Follow up 3 weeks. [id number]: [id number] Global Visit
[2020-06-19 10:50] VITALS: BP 144/88; PULSE 75; RESP 18; TEMP 37; BMI 23.1
--- NOTE | 2020-06-19 11:27 | PN.PCM_ITS ---
(1) Below-knee amputation of left lower extremity Status: Chronic Code(s): S88.112A - Complete traumatic amputation at level between knee and ankle, left lower leg, initial encounter (2) Current smoker Status: Chronic Code(s): F17.200 - Nicotine dependence, unspecified, uncomplicated (3) History of transmetatarsal amputation of left foot Status: Chronic Code(s): Z89.432 - Acquired absence of left foot (4) MRSA (methicillin resistant Staphylococcus aureus) infection Status: Acute Code(s): A49.02 - Methicillin resistant Staphylococcus aureus infection, unspecified site (5) Type 2 diabetes mellitus Status: Chronic Code(s): E11.9 - Type 2 diabetes mellitus without complications Type of Wound Date of Service: 06/19/20 Chief Complaint: A wound to the left great toe slightly over a year occurring June 2013 History of Wound: Patient presented emergency department and was admitted on 04/11/20 for worsening left foot ulceration. Patient was homeless. Patient had multiple previous surgeries to the left foot, the most recent in November, where he underwent revision transmetatarsal amputation. Surgery on 04/17/20 - Left below knee amputation. Surgery 04/11/20 - Incision and drainage left foot with bone biopsy and debridement with revision of amputation. He is healed today. He is wearing a stump pig machine operator from [employer]. [facility] to [facility] on Vancom[facility] for polymicrobial infection, (MRSA, Staphylococcus aureus, Streptococcus mitis, and Anaerobic cocci in the bone; MRSA Staphylococcus aureus, Streptococcus mitis, Corynebacterium species, Alcaligenes faecalis, Klebsiella oxytoca, and Anaerobic cocci in the soft tissue: MRSA, Staphylococcus aureus, and Streptococcus mitis in the blood). Prealbumin was 12.9 on 04/18/20. Encourage nutritional supplementation with protein to help the healing process. Patient denies fever. He states his appetite has been good and he has been eating better since being in [facility]. Progress of Wound: His left BKA stump incision is healed today. - Physical Exam Vital Signs Temp Pulse Resp BP 98.6 F 75 18 144/88 H 06/19/20 10:50 06/19/20 10:50 06/19/20 10:50 06/19/20 10:50 General: Alert, Oriented x3, Cooperative HEENT: Atraumatic Oral: Moist Mucosa Lungs: Normal air movement Cardiovascular: Regular rate Extremities: No edema, Capillary Refill Less than 3 Seconds Skin: Incision - Left BKA incision is healed. Dry and intact. He is wearing a stump pig machine operator. Wound Measurements and Assessment - Nurse 2 - General Ulcer CM Notes Start: 05/29/20 10:56 Freq: Status: Active Protocol: Activity Type Activity Date Activity User E-Sign Co-Sign Detail Recorded Client Recorded Date Recorded By Document 06/19/20 11:00 [id number] 06/19/20 11:01 06/19/20 11:00 Pain Scale: 0-10 Numeric [Pain] -Is Patient Pain Free? 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 Yes - Visit Discharge [Visit Discharge Information] -Discharge Condition Stable -Ambulatory Status Ambulatory, Walker -Transportation Private Auto -Medication Reconcilliation completed Yes & provided to patient/care provider -Clinical Summary of Care Provided Yes Musculoskeletal: No Tenderness to Palpation of Joints or Extremities Neurological: Cranial nerves II-XII grossly intact Psych/Mental Status: Normal Affect, Appropriate Debridement Note Post-Debridement Measurements/Treatment WC - Nurse 2 - General Ulcer CM Notes Start: 05/29/20 10:56 Freq: Status: Active Protocol: Activity Type Activity Date Activity User E-Sign Co-Sign Detail Recorded Client Recorded Date Recorded By Document 05/29/20 11:15 [id number] 05/29/20 11:20 Document 06/19/20 11:00 [id number] 06/19/20 11:01 05/29/20 06/19/20 11:15 11:00 Wound Center Nurse 2 #2- L BKA POST OP (INCISIONAL) -Correct Patient No -Correct Side, Site, Position No -Correct Procedure No -Procedure Performed No -Post Debridement (cm) - Length 0 -Post Debridement (cm) - Width 0 -Post Debridement (cm) - Depth 0 -Total Square (Post) (cm) 0 -Area of Debridement (cm) - Length 0 -Area of Debridement (cm) - Width 0 -Total Square (Area) (cm) 0 -Wound/Ulcer Outcome Healed- Epithelialized Pain Scale: 0-10 Numeric Is Patient Pain Free? Yes Yes - Nurse 3 - General Ulcer D/C NN Start: 05/29/20 10:56 Freq: Status: Active Protocol: Activity Type Activity Date Activity User E-Sign Co-Sign Detail Recorded Client Recorded Date Recorded By Document 05/29/20 11:32 [facility] [id number] 05/29/20 11:33 [facility] Document 06/19/20 11:02 [id number] 06/19/20 11:02 05/29/20 06/19/20 11:32 11:02 Wound Care Nurse 3 Left -Other [employer]UMP [employer] Vital Signs Comment hydrogel to suture removal sites today, gauze and philip to secure Pain Scale: 0-10 Numeric Is Patient Pain Free? Yes Yes WC - Visit Discharge Discharge Condition Stable Stable Ambulatory Status Wheelchair Ambulatory, Walker Transportation Private Auto Medication Reconcilliation completed & Yes provided to patient/care provider Clinical Summary of Care Provided Yes Facility Type Alf Care Facility No debridement was completed today Assessment/Plan Active Problems Below-knee amputation of left lower extremity (Chronic) Type 2 diabetes mellitus (Chronic) History of transmetatarsal amputation of left foot (Chronic) Current smoker (Chronic) MRSA (methicillin resistant Staphylococcus aureus) infection (Acute) Assessment: 1. s/p left BKA. 2. Complex nonhealing diabetic abscess ulcer left foot. 3. Osteomyelitis. 4. Diabetes with neuropathy. 5. Sepsis. 6. History of transmetatarsal amputation left foot. 7. MRSA. 8. Smoker. 9. Homeless. Plan: Discharged to [facility] on Vancomycin for polymicrobial infection, (MRSA, Staphylococcus aureus, Streptococcus mitis, and Anaerobic cocci in the bone; MRSA Staphylococcus aureus, Streptococcus mitis, Corynebacterium species, Alcaligenes faecalis, Klebsiella oxytoca, and Anaerobic cocci in the soft tissue: MRSA, Staphylococcus aureus, and Streptococcus mitis in the blood). Stump incision is dry and intact. Stump is soft without clinical evidence of hematoma. No evidence of vascular compromise in the flap. He states he was discharged from the [facility]. His insurance stated they would no longer allow him to stay there. He currently is living in his van. He states he stayed in a hotel for a week, and has found a place to stay but it is not available for couple more weeks. His incision is healed. He is wearing a stump pig machine operator from antibiotics. The ECF did give him a walker and a wheelchair. Prealbumin was 12.9. Encourage nutritional supplementation with protein to help the healing process. Encouraged patient to stop smoking as it may have deleterious effects on wound healing. I would like to follow him until he has his prosthesis in place to make sure that there is a proper fit, with no issues with rubbing or ulcers from the prosthesis. Follow up 3 weeks. [id number]: [id number] Global Visit
== END 2020-06-21 23:59 ==
LOC: WC 11:00
PROVIDERS: PCP Family Medicine; Referring Provider Podiatrist; Visit Provider Surgery
DX: E11.621 Type 2 diabetes mellitus with foot ulcer (principal); L97.529 Non-pressure chronic ulcer of other part of left foot with unspecified severity; L02.612 Cutaneous abscess of left foot; A41.9 Sepsis, unspecified organism; E11.40 Type 2 diabetes mellitus with diabetic neuropathy, unspecified; M86.9 Osteomyelitis, unspecified; Z89.432 Acquired absence of left foot; Z59.0 Homelessness; F17.200 Nicotine dependence, unspecified, uncomplicated; A49.02 Methicillin resistant Staphylococcus aureus infection, unspecified site; Z89.512 Acquired absence of left leg below knee
CPT/HCPCS: 99212; 99213; G0463

== ENCOUNTER 2020-07-10 11:00 | Outpatient (RCR) | payer MEDICARE, SELFPAY ==
[2020-06-22 00:18] VITALS: BP 144/88; PULSE 75; RESP 18; TEMP 37
[2020-07-10 10:31] VITALS: BP 144/79; PULSE 68; RESP 16; TEMP 36.3; BMI 23.1
--- NOTE | 2020-07-10 10:33 | WC ---
Patient wound healed previously.
--- NOTE | 2020-07-10 11:31 | PCM.WC.PN ---
(1) Below-knee amputation of left lower extremity Status: Chronic Code(s): S88.112A - Complete traumatic amputation at level between knee and ankle, left lower leg, initial encounter (2) Type 2 diabetes mellitus Status: Chronic Code(s): E11.9 - Type 2 diabetes mellitus without complications (3) Current smoker Status: Chronic Code(s): F17.200 - Nicotine dependence, unspecified, uncomplicated (4) Homelessness Status: Chronic Code(s): Z59.0 - Homelessness Type of Wound Date of Service: 07/10/20 Chief Complaint: A wound to the left great toe slightly over a year occurring June 2013 History of Wound: Patient presented emergency department and was admitted on 04/11/20 for worsening left foot ulceration. Patient was homeless. Patient had multiple previous surgeries to the left foot, the most recent in November, where he underwent revision transmetatarsal amputation. Surgery on 04/17/20 - Left below knee amputation. Surgery 04/11/20 - Incision and drainage left foot with bone biopsy and debridement with revision of amputation. He is healed today. He is wearing a stump seismographer from [employer]. He goes to see them later in the week to have a cast built for the mold for his prosthesis. Discharged to ECF on Vancomycin for polymicrobial infection, (MRSA, Staphylococcus aureus, Streptococcus mitis, and Anaerobic cocci in the bone; MRSA Staphylococcus aureus, Streptococcus mitis, Corynebacterium species, Alcaligenes faecalis, Klebsiella oxytoca, and Anaerobic cocci in the soft tissue: MRSA, Staphylococcus aureus, and Streptococcus mitis in the blood). Prealbumin was 12.9 on 04/18/20. Encourage nutritional supplementation with protein to help the healing process. Patient denies fever. He states his appetite has been good and he has been eating better since being in [facility]. Progress of Wound: His left BKA stump incision remains healed today. - Physical Exam Vital Signs Temp Pulse Resp BP 97.4 F L 68 16 144/79 H 07/10/20 10:31 07/10/20 10:31 07/10/20 10:31 07/10/20 10:31 General: Alert, Oriented x3, Cooperative HEENT: Atraumatic Oral: Moist Mucosa Lungs: Normal air movement Cardiovascular: Regular rate Extremities: No edema, Capillary Refill Less than 3 Seconds Skin: Incision - Left BKA incision healed. No pain with palpation. No evidence of hematoma or seroma. Wound Measurements and Assessment - Nurse 1 - General Ulcer Measurement Start: 07/10/20 10:31 Freq: Status: Discharge Protocol: Activity Type Activity Date Activity User E-Sign Co-Sign Detail Recorded Client Recorded Date Recorded By Edit Status 07/10/20 11:10 BKG DAEMON Active=>Discharge [facility] 07/10/20 11:10 BKG DAEMON - Nurse 2 - General Ulcer CM Notes Start: 07/10/20 10:31 Freq: Status: Discharge Protocol: Activity Type Activity Date Activity User E-Sign Co-Sign Detail Recorded Client Recorded Date Recorded By Document 07/10/20 10:56 MARSHALL [id number] 07/10/20 10:57 MARSHALL Edit Status 07/10/20 11:10 BKG DAEMON Active=>Discharge [facility] 07/10/20 11:10 BKG DAEMON 07/10/20 10:56 Pain Scale: 0-10 Numeric [Pain] -Is Patient Pain Free? Yes - Nurse 3 - General Ulcer D/C NN Start: 07/10/20 10:31 Freq: Status: Discharge Protocol: Activity Type Activity Date Activity User E-Sign Co-Sign Detail Recorded Client Recorded Date Recorded By Edit Status 07/10/20 11:10 BKG DAEMON Active=>Discharge [facility] 07/10/20 11:10 BKG DAEMON Musculoskeletal: No Tenderness to Palpation of Joints or Extremities Neurological: Cranial nerves II-XII grossly intact Psych/Mental Status: Normal Affect, Appropriate Debridement Note Post-Debridement Measurements/Treatment - Nurse 2 - General Ulcer CM Notes Start: 07/10/20 10:31 Freq: Status: Discharge Protocol: Activity Type Activity Date Activity User E-Sign Co-Sign Detail Recorded Client Recorded Date Recorded By Document 07/10/20 10:56 MARSHALL [id number] 07/10/20 10:57 MARSHALL 07/10/20 10:56 Pain Scale: 0-10 Numeric Is Patient Pain Free? Yes No debridement was completed today Assessment/Plan Assessment: 1. s/p left BKA. 2. Complex nonhealing diabetic abscess ulcer left foot. 3. Osteomyelitis. 4. Diabetes with neuropathy. 5. Sepsis. 6. History of transmetatarsal amputation left foot. 7. MRSA. 8. Smoker. 9. Homeless. Plan: Discharged to [facility] on Vancomycin for polymicrobial infection, (MRSA, Staphylococcus aureus, Streptococcus mitis, and Anaerobic cocci in the bone; MRSA Staphylococcus aureus, Streptococcus mitis, Corynebacterium species, Alcaligenes faecalis, Klebsiella oxytoca, and Anaerobic cocci in the soft tissue: MRSA, Staphylococcus aureus, and Streptococcus mitis in the blood). Stump incision is healed. Stump is soft without clinical evidence of hematoma. No evidence of vascular compromise in the flap. He states he was discharged from the [facility]. His insurance stated they would no longer allow him to stay there. He currently is living in his van. He states he stayed in a hotel periodically to shower. He states that he thought he had an apartment lined up, but he no longer does. He states that [facility] and the housing place is working with him to get him a place to live. His incision is healed. He is wearing a stump seismographer from antibiotics. The [facility] did give him a walker and a wheelchair. He sees [employer] later in the week to have a cast made for the mold for his prosthesis. Prealbumin was 12.9. Encourage nutritional supplementation with protein to help the healing process. Encouraged patient to stop smoking as it may have deleterious effects on wound healing. Follow up as needed. If he has any issues with pain or develops any breakdown, then he needs to follow up with us. [id number]: [id number] Global Visit
== END 2020-07-10 11:09 | disposition home or self-care (01) ==
LOC: WC 11:00
PROVIDERS: PCP Family Medicine; Referring Provider Podiatrist; Visit Provider Surgery
DX: E11.621 Type 2 diabetes mellitus with foot ulcer (principal); L02.612 Cutaneous abscess of left foot; L97.529 Non-pressure chronic ulcer of other part of left foot with unspecified severity; E11.40 Type 2 diabetes mellitus with diabetic neuropathy, unspecified; A41.9 Sepsis, unspecified organism; F17.200 Nicotine dependence, unspecified, uncomplicated; M86.9 Osteomyelitis, unspecified; A49.02 Methicillin resistant Staphylococcus aureus infection, unspecified site; Z89.432 Acquired absence of left foot; Z59.0 Homelessness; Z89.512 Acquired absence of left leg below knee
CPT/HCPCS: 99212; G0463

== ENCOUNTER 2020-11-02 10:52 | Inpatient (IN) | payer MEDICARE, MEDICAID, SELFPAY ==
[2020-11-02 10:53] VITALS: BP 117/87; PULSE 105; RESP 18; TEMP 36.6; O2SAT 99; BMI 23.7
[2020-11-02 11:44] LABS: Absolute Lymphocyte Count 1.73 X10^3/uL (0.83-4.51); Absolute Neutrophil Count 8.9 X10^3/uL (2.0-7.7); Basophil% 0.8 % (0-1); Eosinophil# 0.18 X10^3/uL; Eosinophils% 1.5 % (0-5); Hematocrit 46.3 % (40-54); Hemoglobin 14.3 g/dL (13.0-16.5); Lymphocyte # 1.73 X10^3/ul (0.83-4.51); Lymphocyte % 14.1 % (19-41); Mean Corp Hgb Conc 30.9 g/dL (32-36); Mean Corpuscular Hgb 25.2 pg (27.0-32.0); Mean Corpuscular Volume 81.5 fL (80-94); Mean Platelet Vol. 11.9 fl (6.2-12.0); Monocyte# 1.41 X10^3/uL; Monocyte% 11.5 % (0-10); NRBC Flagged by Analyzer 0 % (0-5); Neutrophil # 8.85 X10^3/uL (2.7-7.7); Neutrophil % 71.8 % (47-70); POSITIVE MORPHOLOGY YES; Platelet Count 260 K/mm3 (150-450); RBC Distribution Width CV 19.6 % (11.6-14.6); RBC Distribution Width SD 55.8 fl (35.1-43.9); Red Blood Count 5.68 M/mm3 (4.6-6.2); White Blood Count 12.3 K/mm3 (4.4-11.0)
[2020-11-02 11:46] LABS: Differential Indicated SCAN CRITERIA MET
[2020-11-02 11:57] LABS: ALB/GLOB Ratio 0.8 RATIO (0.9-2.4); AST(SGOT) 13 U/L (15-37); Alanine Aminotransfer ALT/SGPT 15 U/L (16-61); Albumin, Serum 3.2 g/dL (3.2-5.0); Alkaline Phosphatase 112 U/L (45-117); Anion Gap 11 (5-15); BUN 11 mg/dL (7-18); BUN/Creat Ratio 10.2 RATIO (10-20); Calcium,Total 8.9 mg/dL (8.5-10.1); Chloride 103 mmol/L (98-107); Creatinine, Serum 1.08 mg/dL (0.70-1.30); EST Glomerular Filtration Rate 73 mL/min (>60); Est Glom Filt Rate - Afr Amer 88 mL/min (>60); Estimated Creatinine Clearance 77.06 ml/min; Glucose 158 mg/dL (74-106); Potassium 3.2 mmol/L (3.5-5.1); Protein, Total 7.2 g/dL (6.4-8.2); Sodium Level 136 mmol/L (136-145)
--- NOTE | 2020-11-02 12:09 | ED.VIS.LOWEX ---
HPI History of Present Illness HPI Narrative: Patient presents with pain and swelling to the stump of his left lower leg. Patient states that 2 days ago he was walking and stubbed his foot against a curb. Patient states this caused some irritation and pain in the stump of his left lower leg where his prosthesis attaches. Patient noted some swelling yesterday. Patient states today he noted some drainage from the area. Patient describes the pain as dull. Patient states nothing makes it better nothing makes it worse. Patient denies any fevers or chills. Chief Complaint: Wound Check Informant: patient Onset/Context/Timing Onset: Days (2) Context: Gradual Onset Timing: Continuous Location: Left leg Worsened by: Nothing Relieved by: Nothing Associated Symptoms Associated Symptoms: Negative for Parasthesia, Weakness and Loss of Funtion [facility] Medical History (Updated 11/02/20 @ 14:[address] Vinicio Moses DO) Hypertension Hypothyroidism Home Medications levothyroxine 75 mcg PO DAILY 09/01/13 [History Last Taken 10/29/20] duloxetine 30 mg PO DAILY 07/07/19 [History Last Taken 4 Days Ago ~11/19/19] rosuvastatin 20 mg PO DAILY 07/07/19 [History Last Taken 11/01/20] metoprolol tartrate 25 mg PO BID 11/23/19 [History Last Taken 11/01/20] gabapentin 800 mg PO TIDCM #30 tab 04/19/20 [Rx Last Taken 11/01/20] nitroglycerin 0.4 mg SUBLINGUAL Q5M PRN 11/02/20 [History Last Taken Unknown] Allergy/AdvReac Type Severity Reaction Status Date / Time colesevelam HCl Allergy Rash Verified 11/02/20 12:14 [From WelChol] dicyclomine Allergy Rash Verified 11/02/20 12:14 divalproex sodium Allergy Unknown Verified 11/02/20 12:14 [From Depakote] rofecoxib [From Vioxx] Allergy Rash Verified 11/02/20 12:14 vancomycin AdvReac Rash Verified 11/02/20 12:14 Social History Smoking Status: Current every day smoker tobacco type: cigarettes ROS ROS ED Constitutional Constitutional ED: Denies chills or fever(s) Eyes Eyes: Denies blurry vision or change in vision ENT ENT ED: Denies rhinorrhea or sore throat Cardiovascular Cardiovascular: Denies chest pain or palpitations Respiratory/Chest Respiratory/Chest: Denies cough or dyspnea Gastrointestinal Gastrointestinal: Denies nausea or vomiting Genitourinary Genitourinary ED: Denies dysuria or hematuria Musculoskeletal Musculoskeletal: Denies back pain or neck pain Integumentary Denies abscess or rash Neurologic Neurologic: Denies headache(s) or weakness Allergic/Immunologic Allergic/Immunologic ED: Denies mouth swelling or urticaria EXAM Physical Exam Const Vital Signs: 11/02/20 10:53 11/02/20 13:32 Temperature 97.9 F 98 F Temperature Source Temporal Oral Pulse Rate 105 H 79 Respiratory Rate 18 12 Blood Pressure 117/87 H 100/57 L Blood Pressure Mean 97 71 Pulse Ox 99 94 Oxygen Delivery Method Room Air Room Air Positive well nourished and well developed General Appearance ED: well developed HEENT Reports moist mucous membranes Resp normal respiratory effort and clear to auscultation bilaterally Cardio regular rate and regular rhythm GI non-tender and non-distended Palpation: soft Extremity Extremity Narrative: There is tenderness and mild edema over the stump of his left lower leg. There is some open ulceration with some mild serous drainage. There is some mild erythema. There is no warmth. There is minimal tenderness. There is full range of motion of the left knee and left hip. Neuro oriented x3, CN's II-XII intact bilaterally, moves all extremities and no sensory deficits noted Sensorium / Orientation: alert Motor Exam: strength 5/5 throughout Psych mental status grossly normal MDM MDM MDM Narrative Medical decision making narrative: Patient was given morphine and a dose of Zosyn. CBC shows a mild leukocytosis of 12.3. Comprehensive metabolic profile was within normal limits. Sed rate was elevated at 51. CRP was elevated at 111. X-rays of the left knee were obtained. There are 2 views. On my interpretation, there is no evidence of osteomyelitis. There is some soft tissue swelling with air in the soft tissues. Radiologist also interpreted the x-rays and agrees. Wound culture and blood cultures were obtained. Lactate was ordered and is normal. Case was discussed with the hospitalist. She will admit the patient to her service. Patient understood and was agreeable with plan. All questions were answered. Lab Data Attestation: I reviewed the patient's lab results. Labs: Laboratory Results - last 24 hr 11/02/20 11/02/20 11/02/20 11:25 11:25 11:25 WBC 12.3 H RBC 5.68 Hgb 14.3 Hct 46.3 MCV 81.5 MCH 25.2 L MCHC 30.9 L RDW Std Deviation 55.8 H RDW Coeff of Jesus 19.6 H Plt Count 260 MPV 11.9 Immature Gran % (Auto) 0.300 Neut % (Auto) 71.8 H Lymph % (Auto) 14.1 L [place] % (Auto) 11.5 H Eos % (Auto) 1.5 Baso % (Auto) 0.8 Absolute Neuts (auto) 8.9 H Absolute Lymphs (auto) 1.73 Nucleated RBC % 0 Differential Comment SCANNED ESR 51 H Sodium 136 Potassium 3.2 L Chloride 103 Carbon Dioxide 22.0 Anion Gap 11 BUN 11 Creatinine 1.08 Estim Creat Clear Calc 77.06 Est GFR (MDRD) Af Amer 88 Est GFR (MDRD) Non-Af 73 BUN/Creatinine Ratio 10.2 Glucose 158 H Lactic Acid Calcium 8.9 Magnesium 2.2 Total Bilirubin 1.00 AST 13 L ALT 15 L Alkaline Phosphatase 112 C-React Prot Ext Range 111.00 H Total Protein 7.2 Albumin 3.2 Globulin 4.0 Albumin/Globulin Ratio 0.8 L 11/02/20 14:12 WBC RBC Hgb Hct MCV MCH MCHC RDW Std Deviation RDW Coeff of Jesus Plt Count MPV Immature Gran % (Auto) Neut % (Auto) Lymph % (Auto) [place] % (Auto) Eos % (Auto) Baso % (Auto) Absolute Neuts (auto) Absolute Lymphs (auto) Nucleated RBC % Differential Comment ESR Sodium Potassium Chloride Carbon Dioxide Anion Gap BUN Creatinine Estim Creat Clear Calc Est GFR (MDRD) Af Amer Est GFR (MDRD) Non-Af BUN/Creatinine Ratio Glucose Lactic Acid 1.2 Calcium Magnesium Total Bilirubin AST ALT Alkaline Phosphatase C-React Prot Ext Range Total Protein Albumin Globulin Albumin/Globulin Ratio Radiography Diagnostic Testing: Radiology Impression Knee X-Ray 11/02/20 12:27 IMPRESSION: Status post below-knee amputation with soft tissue swelling and air in the soft tissues just distal to the stump. Electronically Signed: Ted Samayoa MD at 12:56 EDT , Service support , Discharge Plan Dx/Rx/DC Orders Clinical Impression: Wound infection Disposition Disposition: Acute Care Hospital [facility] Discharge Date/Time: 11/02/20 15:14
[2020-11-02 12:18] LABS: Differential Comment SCANNED
[2020-11-02 12:19] LABS: Erythrocyte Sedimentation Rate 51 mm/hr (0-20)
--- NOTE | 2020-11-02 12:27 | RAD_ITS ---
STUDY: X-RAY - LEFT KNEE REASON FOR EXAM: Male, 64 years old. Injury/Pain TECHNIQUE: 2 view(s) of the knee. COMPARISON: None. FINDINGS: Normal visualized distal femur. The patient is status post below knee amputation of the tibia and fibula. Normal proximal tibiofibular articulation. Soft tissue swelling with air in the soft tissues distal to the proximal tibia. RAD/Knee 1 or 2 Views IMPRESSION: Status post below-knee amputation with soft tissue swelling and air in the soft tissues just distal to the stump. Electronically Signed: Ted Samayoa MD at 12:56 EDT , Service support ,
[2020-11-02] MEDS: Morphine 4 MG/ML Syringe IV (13:29)
[2020-11-02 13:32] VITALS: BP 100/57; PULSE 79; RESP 12; TEMP 36.6; O2SAT 94
--- NOTE | 2020-11-02 14:12 | HP.PCM.HOS_ITS ---
HPI - General General Date of Admission: 11/02/20 Date of Service: 11/02/20 Chief Complaint: L BKA wound, drainage HPI Narrative The patient is a 64 y/o M w/ PMHx: Hx DVT UE, CAD s/p CABG and PCI, HTN, HLD, GERD, Hypothyroidism, Diabetes mellitus type II with neuropathy, Tobacco use who presents to the [facility] ED on 11/01/20 with history of recent unfortunate injury to the patient's left BKA noting that he specifically hit the orthotic on a curb while walking and sustained a small abrasion to the distal tip of the stump with worsening redness, swelling, pain following, specifically describing an aching sensation, worse the evening prior to current presentation with no specific fevers or chills, discomfort rated 4 out of 10 in severity. Patient states he is still homeless. Work-up in the ED included T, heart rate 79, BP 157, respira tory rate 12, 94% on room air, CBC with WC 12.3, hemoglobin 14.3, platelet 260 with left shift, ESR 51, CRP 111, CMP with potassium 3 2, glucose 158, AST/ALT 13/15, unremarkable hepatic profile otherwise, plain film of the left lower extremity with evidence status post BKA with soft tissue swelling and air in the soft tissues just distal to the stump, Bld Cx x 2 obtained in the ED. In the ED patient administered Zosyn and morphine. Patient does not recall any specific reaction to vancomycin despite noted with listed rash, unclear if was red man syndrome, willing to retry and understands risks and is amenable. [facility] Medical History (Updated 11/02/20 @ 16:[address] Pricilla Lira MD) Benign essential hypertension CAD (coronary artery disease) History of below-knee amputation of left lower extremity History of gastroesophageal reflux (GERD) Homelessness Hypertension Hypothyroidism Smoker Type 2 diabetes mellitus Home Medications levothyroxine 75 mcg PO DAILY 09/01/13 [History Last Taken 10/29/20] duloxetine 30 mg PO DAILY 07/07/19 [History Last Taken 4 Days Ago ~11/19/19] rosuvastatin 20 mg PO DAILY 07/07/19 [History Last Taken 11/01/20] metoprolol tartrate 25 mg PO BID 11/23/19 [History Last Taken 11/01/20] gabapentin 800 mg PO TIDCM #30 tab 04/19/20 [Rx Last Taken 11/01/20] nitroglycerin 0.4 mg SUBLINGUAL Q5M PRN 11/02/20 [History Last Taken Unknown] Allergy/AdvReac Type Severity Reaction Status Date / Time colesevelam HCl Allergy Rash Verified 11/02/20 12:14 [From WelChol] dicyclomine Allergy Rash Verified 11/02/20 12:14 divalproex sodium Allergy Unknown Verified 11/02/20 12:14 [From Depakote] rofecoxib [From Vioxx] Allergy Rash Verified 11/02/20 12:14 vancomycin AdvReac Rash Verified 11/02/20 12:14 Family History (Updated 11/02/20 @ 16:[address] Pricilla Lira MD) Mother Diabetes Father Cancer History of Lung CA. Surgical History (Updated 11/02/20 @ 16:[address] Pricilla Lira MD) Hx of CABG S/P BKA (below knee amputation) Social History (Updated 11/02/20 @ 16:[address] Pricilla Lira MD) housing: homeless Smoking Status: Current every day smoker tobacco type: cigarettes Smoking packs per day: 1 Smoking cigarettes per day: 20.0 how long ago did patient quit smoking: Patient with ongoing 1 ppd since [age] years old. alcohol intake: never substance use type: does not use ROS ROS Narrative Admission Review of Systems: CONSTITUTIONAL: No weight loss, fever, chills, + weakness or fatigue. HEENT: Eyes: No visual loss, blurred vision, double vision or yellow sclerae. Ears, Nose, Throat: No hearing loss, sneezing, congestion, runny nose or sore throat. SKIN: + LLE BKA w/ stump redness, drainage. CARDIOVASCULAR: No chest pain, chest pressure or chest discomfort, palpitations, edema, orthopnea, syncopal events. RESPIRATORY: No shortness of breath, cough or sputum, wheezing, hemoptysis. GASTROINTESTINAL: No anorexia, nausea, vomiting or diarrhea, abdominal pain, melena, BRBPR. GENITOURINARY: No dysuria, frequency, urgency or retention. NEUROLOGICAL: No headache, dizziness, syncope, paralysis, ataxia, numbness or tingling in the extremities, focal weakness, change in bowel or bladder control, seizure. MUSCULOSKELETAL: + muscle, back pain, joint pain or stiffness. HEMATOLOGIC: No anemia, bleeding or bruising. LYMPHATICS: No enlarged nodes. No history of splenectomy. PSYCHIATRIC: No history of depression or anxiety. ENDOCRINOLOGIC: No reports of sweating, cold or heat intolerance. No polyuria or polydipsia. ALLERGIES: No history of asthma, hives, eczema or rhinitis. Vital Signs Vital Signs Vital Signs: 11/02/20 10:53 11/02/20 13:32 Temperature 97.9 F 98 F Temperature Source Temporal Oral Pulse Rate 105 H 79 Respiratory Rate 18 12 Blood Pressure 117/87 H 100/57 L Blood Pressure Mean 97 71 Pulse Ox 99 94 Oxygen Delivery Method Room Air Room Air Weight Weight: 180 lb Body Mass Index (BMI) 23.7 Physical Exam Narrative Physical Examination: General: Awake, alert, oriented x 3 and cooperative, seated upright in the ED bed in no apparent distress, fatigued. Skin: Normal color, normal turgor, no icterus, no cyanosis except noted LLE BKA with stump wound, serosanguinous, warm to touch, erythematous circumferentially. HEENT: AT/NC, EOMI, PERRLA, MMM, no carotid bruits or JVD noted. Lungs: Diminished breath sounds, greater bases, appropriate effort, no rales, ronchi or wheezing. Heart: Regular rate and rhythm; no gallop, rub audible. Abdomen: Soft, thin habitus, NTTP, ND, normal BS, no HSM. Extremities: No cyanosis, no clubbing, see skin, s/p L BKA. Neurological: Patient awake, alert, oriented x 3, cognitive function intact; pupils equally reactive to light and accommodation, cranial nerves II-XII grossly normal, moving all 4 extremities, no focal deficits, strength mildly globally decreased. Psychiatric: Affect appears fatigued, no acute evidence of depressive or anxiety feelings. Results Lab / Micro Data Result Diagrams: 11/02/20 11:25 11/02/20 11:25 Labs: Laboratory Results - last 24 hr 11/02/20 11:25: WBC 12.3 H, RBC 5.68, Hgb 14.3, Hct 46.3, MCV 81.5, MCH 25.2 L, MCHC 30.9 L, RDW Std Deviation 55.8 H, RDW Coeff of Jesus 19.6 H, Plt Count 260, MPV 11.9, Immature Gran % (Auto) 0.300, Neut % (Auto) 71.8 H, Lymph % (Auto) 14.1 L, [place] % (Auto) 11.5 H, Eos % (Auto) 1.5, Baso % (Auto) 0.8, Absolute Neuts (auto) 8.9 H, Absolute Lymphs (auto) 1.73, Nucleated RBC % 0, Differential Comment SCANNED, ESR 51 H 11/02/20 11:25: Sodium 136, Potassium 3.2 L, Chloride 103, Carbon Dioxide 22.0, Anion Gap 11, BUN 11, Creatinine 1.08, Estim Creat Clear Calc 77.06, Est GFR (MDRD) Af Amer 88, Est GFR (MDRD) Non-Af 73, BUN/Creatinine Ratio 10.2, Glucose 158 H, Calcium 8.9, Total Bilirubin 1.00, AST 13 L, ALT 15 L, Alkaline Phosphatase 112, C-React Prot Ext Range 111.00 H, Total Protein 7.2, Albumin 3.2, Globulin 4.0, Albumin/Globulin Ratio 0.8 L Radiology Impression Knee X-Ray 11/02/20 12:27 IMPRESSION: Status post below-knee amputation with soft tissue swelling and air in the soft tissues just distal to the stump. Electronically Signed: Ted Samayoa MD at 12:56 EDT , Service support , Assessment & Plan Assessment/Plan (1) Cellulitis of lower extremity: QUALIFIERS: Laterality: left Qualified Code(s): L03.116 - Cellulitis of left lower limb PLAN: The patient is a 64 y/o M w/ PMHx: Hx DVT UE, CAD s/p CABG and PCI, HTN, HLD, GERD, Hypothyroidism, Diabetes mellitus type II with neuropathy, Tobacco use who presents to the [facility] ED on 11/01/20 with history of recent unfortunate injury to the patient's left BKA noting that he specifically hit the orthotic on a curb while walking and sustained a small abrasion to the distal tip of the stump with worsening redness, swelling, pain following, specifically describing an aching sensation, worse the evening prior to current presentation with no specific fevers or chills, discomfort rated 4 out of 10 in severity. 1. LLE BKA Diabetic Wound Infection, Possible Osteomyelitis: Will admit to MS, maintain on IV Vanc pending evaluation of allergy listed as rash and Zosyn, will obtain Wound Cx and will also obtain Wound MRSA PCR, plan repeat CBC in AM, continue affected extremity elevation above heart when seated and in bed, monitor erythema outline with VS checks, consult Dr. Plata, plan NPO after midnight in case of any intervention needs, IVFs. 2. Diabetes mellitus type II with diabetic neuropathy: Per current list on a regimen, will clarify, will obtain hemoglobin A1c be cautious, obtain nutrition consultation for education and teaching, continue ADA diet until n.p.o. status, continue gabapentin for neuropathy, accu checks w/ ISS. 3. Hypertension: Continue home regimen including metoprolol with hold parameters, PRN hydralazine. 4. Hyperlipidemia: Continue home statin regimen. 5. Hypothyroidism: Continue home Synthroid regimen. 6. Anxiety and depression: We will continue patient home duloxetine regimen. 7. Tobacco Abuse: Encouraged cessation, inpatient consultation per RT, NR if desired. 8. DVT prophylaxis: SCD to right lower extremity, hold on chemoprophylaxis for possible OR. If no plans for operative intervention would initiate chemoprophylaxis. Charges/Coding Visit Charges Inpatient E&M: 23250 Init Hosp L3
--- NOTE | 2020-11-02 14:30 | NURSING ---
DR THOMAS FOR DR LAMB
--- NOTE | 2020-11-02 14:41 | NURSING ---
MED SURG WHITE WOUND INFECTION
[2020-11-02 14:44] LABS: Lactic Acid 1.2 mmol/L (0.4-1.9)
[2020-11-02 14:51] VITALS: BP 119/83; PULSE 82; RESP 16; TEMP 36.7; O2SAT 97
[2020-11-02 14:53] LABS: Magnesium 2.2 mg/dL (1.6-2.6)
[2020-11-02 15:22] VITALS: BMI 23.5
[2020-11-02 15:30] VITALS: BP 116/56; PULSE 67; RESP 16; TEMP 36.5; O2SAT 99
[2020-11-02] MEDS: Gabapentin 800 MG Tablet PO (16:37)
[2020-11-02] MEDS: 0.9% Normal Saline 1,000 ML 100 ML IV (16:37)
[2020-11-02] MEDS: Potassium Chloride Oral Tablet 20 MEQ 40 MEQ PO (16:51)
[2020-11-02 17:05] LABS: Bedside Glucose 111 mg/dL (70-110)
[2020-11-02 17:58] LABS: M R Staph aureus DNA By PCR Negative (Negative); Probe Check PASS; Specimen Processing Control PASS; Staph aureus DNA By PCR POSITIVE (Negative)
--- NOTE | 2020-11-02 20:06 | PCM.RX.CS ---
Consult Pharmacy has been consulted to manage selected antiobiotic: Vancomycin Type of Consult: New start Suspected Infection: Skin/Soft tissue Prior Doses of Antibiotics Received/Current Regimen: Received 2000mg iv x 1 as loading dose on 11.02.20. Labs: Sodium 136 mmol/L (136-145) 11/02/20 11:25 Potassium 3.2 mmol/L (3.5-5.1) L 11/02/20 11:25 Chloride 103 mmol/L (98-107) 11/02/20 11:25 Carbon Dioxide 22.0 mmol/L (21.0-32.0) 11/02/20 11:25 Anion Gap 11 (5-15) 11/02/20 11:25 BUN 11 mg/dL (7-18) 11/02/20 11:25 Creatinine 1.08 mg/dL (0.70-1.30) 11/02/20 11:25 Est GFR (MDRD) Af Amer 88 mL/min (>60) 11/02/20 11:25 Est GFR (MDRD) Non-Af 73 mL/min (>60) 11/02/20 11:25 BUN/Creatinine Ratio 10.2 RATIO (10-20) 11/02/20 11:25 Glucose 158 mg/dL (74-106) H 11/02/20 11:25 Microbiology: Microbiology 11/02/20 11:35 Wound - Leg, Left Gram Stain - Final Weight used for dosin.8 kg Estimated Creatinine Clearance: 77ml/min Goal Trough: 15-20 mcg/mL Pharmacy Plan for Drug Dosing: Will begin 1250mg iv q12h per protocol starting 11.03.20. Trough level ordered for 11.04.20 before 4th total dose. Pharmacy Service will continue to monitor and adjust dosing as required. Follow-Up Labs: Trough Vancomycin - 11.04.20 @0430 before 0500 dose
[2020-11-02 21:43] VITALS: BP 116/65; PULSE 97; RESP 16; TEMP 37.7; O2SAT 92
[2020-11-02 21:51] LABS: Bedside Glucose 143 mg/dL (70-110)
[2020-11-02] MEDS: Acetaminophen 325 MG Tablet 650 MG PO (21:52)
[2020-11-02 21:53] VITALS: PULSE 97
[2020-11-02] MEDS: Metoprolol Tartrate 25 MG Tablet PO (21:53)
[2020-11-02] MEDS: Famotidine 20 MG Tablet PO (21:53)
[2020-11-02] MEDS: Atorvastatin Calcium 40 MG Tablet PO (21:53)
[2020-11-02] MEDS: Temazepam 15 MG Capsule PO (21:53)
[2020-11-03] VITALS (9 sets, daily range): BP systolic 103–135; BP diastolic 57–80; PULSE 60–75; RESP 16–18; TEMP 35.9–37.3; O2SAT 90–99
[2020-11-03] MEDS: 0.9% Normal Saline 1,000 ML 100 ML IV ×3 (02:13→22:57)
[2020-11-03] MEDS: Levothyroxine 75 MCG Tablet PO (06:45)
[2020-11-03 07:01] LABS: Bedside Glucose 85 mg/dL (70-110)
[2020-11-03 07:12] LABS: Absolute Lymphocyte Count 0.96 X10^3/uL (0.83-4.51); Absolute Neutrophil Count 7.7 X10^3/uL (2.0-7.7); Basophil# 0.09 X10^3/uL; Basophil% 0.9 % (0-1); Eosinophil# 0.25 X10^3/uL; Eosinophils% 2.4 % (0-5); Hematocrit 41.1 % (40-54); Hemoglobin 12.7 g/dL (13.0-16.5); Lymphocyte # 0.96 X10^3/ul (0.83-4.51); Lymphocyte % 9.4 % (19-41); Mean Corp Hgb Conc 30.9 g/dL (32-36); Mean Corpuscular Hgb 25.4 pg (27.0-32.0); Mean Corpuscular Volume 82.2 fL (80-94); Mean Platelet Vol. 12.5 fl (6.2-12.0); Monocyte# 1.26 X10^3/uL; Monocyte% 12.3 % (0-10); NRBC Flagged by Analyzer 0 % (0-5); Neutrophil # 7.66 X10^3/uL (2.7-7.7); Neutrophil % 74.6 % (47-70); Platelet Count 223 K/mm3 (150-450); RBC Distribution Width CV 19.4 % (11.6-14.6); White Blood Count 10.3 K/mm3 (4.4-11.0)
--- NOTE | 2020-11-03 07:24 | PN.HOSP_ITS ---
Subjective Subjective Patient is a 64-year-old gentleman with multiple comorbidities including diabetes mellitus type 2, history of left lower extremity below-knee amputation who presented with redness swelling and pain involving the stump. An assessment of stump infection made admitted to regular nursing for further management Objective Data Objective Data Vital Signs: Vital Signs Temp Pulse Resp BP Pulse Ox 98.5 F 75 17 103/57 L 92 11/03/20 02:15 11/03/20 02:15 11/03/20 02:15 11/03/20 02:15 11/03/20 06:55 Oxygen Delivery Method Room Air Weight: 84.323 kg Body Mass Index (BMI) 23.5 Intake & Output: Intake and Output for Last 24 Hours 11/01/20 11/02/20 11/03/20 23:59 23:59 23:59 Intake Total 940 / 1460 1855 / 1855 Output Total 300 / 700 1300 / 1300 Balance 640 / 760 555 / 555 Lab / Micro Data Result Diagrams: 11/03/20 06:41 11/03/20 06:41 Labs: Laboratory Results - last 24 hr 11/02/20 11:25: WBC 12.3 H, RBC 5.68, Hgb 14.3, Hct 46.3, MCV 81.5, MCH 25.2 L, MCHC 30.9 L, RDW Std Deviation 55.8 H, RDW Coeff of Jesus 19.6 H, Plt Count 260, MPV 11.9, Immature Gran % (Auto) 0.300, Neut % (Auto) 71.8 H, Lymph % (Auto) 14.1 L, [place] % (Auto) 11.5 H, Eos % (Auto) 1.5, Baso % (Auto) 0.8, Absolute Neuts (auto) 8.9 H, Absolute Lymphs (auto) 1.73, Nucleated RBC % 0, Differential Comment SCANNED, ESR 51 H 11/02/20 11:25: Sodium 136, Potassium 3.2 L, Chloride 103, Carbon Dioxide 22.0, Anion Gap 11, BUN 11, Creatinine 1.08, Estim Creat Clear Calc 77.06, Est GFR (MDRD) Af Amer 88, Est GFR (MDRD) Non-Af 73, BUN/Creatinine Ratio 10.2, Glucose 158 H, Calcium 8.9, Total Bilirubin 1.00, AST 13 L, ALT 15 L, Alkaline Phosphatase 112, C-React Prot Ext Range 111.00 H, Total Protein 7.2, Albumin 3.2, Globulin 4.0, Albumin/Globulin Ratio 0.8 L 11/02/20 11:25: Magnesium 2.2 11/02/20 11:35: S.aureus Protein A PCR POSITIVE H, MRSA (PCR) Negative 11/02/20 14:12: Lactic Acid 1.2 11/02/20 16:59: POC Glucose 111 H 11/02/20 21:46: POC Glucose 143 H 11/03/20 06:41: WBC 10.3, RBC 5.00, Hgb 12.7 L, Hct 41.1, MCV 82.2, MCH 25.4 L, MCHC 30.9 L, RDW Std Deviation 57.0 H, RDW Coeff of Jesus 19.4 H, Plt Count 223, MPV 12.5 H, Immature Gran % (Auto) 0.400, Neut % (Auto) 74.6 H, Lymph % (Auto) 9.4 L, [place] % (Auto) 12.3 H, Eos % (Auto) 2.4, Baso % (Auto) 0.9, Absolute Neuts (auto) 7.7, Absolute Lymphs (auto) 0.96, Nucleated RBC % 0 11/03/20 06:50: POC Glucose 85 Micro: Microbiology 11/02/20 11:35 Wound - Leg, Left Gram Stain - Final Radiography Diagnostic Testing: Radiology Impression Knee X-Ray 11/02/20 12:27 IMPRESSION: Status post below-knee amputation with soft tissue swelling and air in the soft tissues just distal to the stump. Electronically Signed: Ted Samayoa MD at 12:56 EDT , Service support , Physical Exam Narrative GENERAL: cooperative HEENT: Atraumatic; EYES; Anicteric, Normal Conjunctiva NECK; supple, normal thyroid, RESPIRATORY: Diminished to auscultation CARDIOVASCULAR: Regular S1 S2, GI: soft, normoactive bowel sounds, : No Renal angle tenderness; EXTREMITIES: Left BKA with stump erythema warmth and swelling MUSCULOSKELETAL: no muscle waisting NEURO: Awake; no lateralizing signs. SKIN: As described above PSYCH; Flat affect Assessment & Plan Assessment/Plan (1) Cellulitis of lower extremity: QUALIFIERS: Laterality: left Qualified Code(s): L03.116 - Cellulitis of left lower limb PLAN: Patient is a 64-year-old gentleman with multiple comorbidities including diabetes mellitus type 2, history of left lower extremity below-knee amputation who presented with redness swelling and pain involving the stump. An assessment of stump infection made admitted to regular nursing for further management 1. Left below-knee amputation stump infection ?Plain x-rays obtained demonstrated soft tissue swelling and air in the soft tissues just distal to the stump.. Patient started on broad-spectrum antibiotic therapy with vancomycin and Zosyn cultures sent with consultation placed to both vascular surgery and infectious disease. As part of patient's management ordered MRI of the stump to rule out osteomyelitis 3. Diabetes mellitus type II with complications including diabetic polyneuropathy - Placed on Accu-Cheks a.c. and at bedtime and covered with sliding scale insulin 3. Coronary artery disease -status post CABG and subsequent PCI 4. Hypothyroidism - Patient is on levothyroxine home dose continued 5. Diabetic polyneuropathy ?Patient is on gabapentin 6. Dyslipidemia -Patient is on statin therapy, continued at home dose 7. Hypertension - Blood pressure controlled, home medications continued with dose adjustment as needed 8. Depression with anxiety ?Patient is on duloxetine did continue 9. Tobacco dependence - Counseled on cessation, offered nicotine patch for tobacco cravings 10. DVT prophylaxis - On SC heparin Charges/Coding Visit Charges Inpatient E&M: 20613 Subs Hosp L3
[2020-11-03 07:48] LABS: ALB/GLOB Ratio 0.7 RATIO (0.9-2.4); AST(SGOT) 11 U/L (15-37); Alanine Aminotransfer ALT/SGPT 15 U/L (16-61); Albumin, Serum 2.4 g/dL (3.2-5.0); Alkaline Phosphatase 93 U/L (45-117); Anion Gap 5 (5-15); BUN 9 mg/dL (7-18); BUN/Creat Ratio 11.4 RATIO (10-20); Calcium,Total 8.2 mg/dL (8.5-10.1); Chloride 110 mmol/L (98-107); Creatinine, Serum 0.79 mg/dL (0.70-1.30); EST Glomerular Filtration Rate 104 mL/min (>60); Est Glom Filt Rate - Afr Amer 126 mL/min (>60); Estimated Creatinine Clearance 105.35 ml/min; Globulin 3.6 g/dL (2.2-4.2); Glucose 87 mg/dL (74-106); Potassium 3.8 mmol/L (3.5-5.1); Sodium Level 138 mmol/L (136-145)
[2020-11-03] MEDS: Gabapentin 800 MG Tablet PO ×3 (08:08→17:38)
[2020-11-03] MEDS: Famotidine 20 MG Tablet PO ×2 (08:09→22:53)
[2020-11-03] MEDS: Metoprolol Tartrate 25 MG Tablet PO ×2 (08:09→22:53)
[2020-11-03] MEDS: DULoxetine Hcl 30 MG Capsule PO (08:09)
--- NOTE | 2020-11-03 10:47 | MRI_ITS ---
STUDY: MRI LOWER EXTREMITY LEFT TIBIA/FIBULA WITH AND WITHOUT CONTRAST REASON FOR EXAM: Male, 64 years old. Suspected osteomyelitis, LEFT BKA, recent injury/abrasion, redness,swelling,drainage from dime sized open wound distal stump TECHNIQUE: Standardized fat and water weighted pulse sequences were obtained in all 3 orthogonal planes, post contrast administration. 15ml Dotarem via IV was administered for the contrast portion of the examination. COMPARISON: None. FINDINGS: The below the knee amputation of the tibia and fibula. There is marrow edema and enhancement of the distal stump consistent with osteomyelitis, series 4 images through . There is muscular edema. There is anterior skin thickening with subcutaneous edema and enhancement. There is nonenhancing defect and focal wound. There is 4.1 cm thick-walled peripherally enhancing fluid collection consistent with abscess in the anterior soft tissues, series 4 image . MRI/Lower Ext Joint Only W/WO Cont IMPRESSION: Status post below the knee amputation. Osteomyelitis of the shaft of the tibia. Soft tissue wound with abscess. Electronically Signed: Dawson Owens MD at 13:39 EDT , Service support ,
--- NOTE | 2020-11-03 10:50 | CASEMGMT ---
ISHA SAUCEDO Assessment: Face to Face with pt for initial transition planning/care coordination assessment. ISHA SAUCEDO introduced self and role at [facility], pt voices understanding and consents to assessment. Pt is A/O x4 and answers all questions appropriately at this time. Pt lying in bed in no distress. Care providers, pharmacy, and demographics verified/updated. Admitting Dx: Diabetic L BKA wound PCP:[facility] Specialists: Pt denies having any specialists currently. Preferred Pharmacy: [facility] while impatient Insurance: [facility] Kwaku, ANGELIQUE Prescription Benefit: yes LW/HPOA: Pt denies having LW/DPOA. LNOK: Peggy Rdz dtr Living Arrangements: Pt states he lives in his van and usually glass in the [facility] parking lot. Pt states he is I in ADL's using his walker or his prosthesis. Pt reports bathing at the fdc or at a public spring. Transportation: Pt drives self and denies concerns with transportation. DME/HHC/SNF: Pt has a w/c, walker and prosthesis for his Left below the knee. Pt denies previous HHC but has been in [facility]. When asked patient about his living situation he states he has been to the [facility] 50 days in a row and has not been able to get a bed. He states he is working with [employer] who will pay for his first two months of rent, but he cannot afford the rent in [place] after those 2 mos. He also reports he is on the bottom of the list for [facility]. Pt is considering going to the [facility]. Pt has been living in his van for the past 2 years. Prior to this he lived in [facility] for approx 15 years and felt he needed a change. He did not realize housing was as difficult to find per his report. Notified Charanjit Maher regarding this. Pt states he is unsure of his dc plan as he has not seen the doctor yet. He states if he is presented with further amputation he will go to another hospital. If pt is in need of IV antibiotics again he is open to going to a SNF but does not want to return to [facility]. Pt states no further concerns/needs. CM to follow. Advised pt to ask CM if any further question/concerns/needs arise, voices understanding. Pt Goal: TBD Plan: TBD based on treatment of wound.
--- NOTE | 2020-11-03 11:47 | CASEMGMT ---
Social Work Note SW updated that pt is homeless and living in his van. Pt is aware of housing resources including [employer], [employer], [facility], and Homeless care home in [place]. Per previous notes from March. This SW met with pt and provided pt with housing/homeless resources. Pt at that time was still living in his van and went to SNF. SW attempted to meet with pt. Pt currently off floor for MRI. SW left housing/homeless resources in pt's room. Per RN CM, pt would be agreeable to SNF if pt needs IV antibiotics. SW to continue to follow. Plan: [facility] Maher RN RECOVERY, NEEDLE LOOM TENDER
[2020-11-03 12:01] LABS: Bedside Glucose 100 mg/dL (70-110)
--- NOTE | 2020-11-03 15:09 | CON.PCM.ID_ITS ---
Assessment & Plan Assessment/Plan (1) Wound infection: PLAN: Wound cx pending. Dr. Plata consulted, MRI ordered. On vanc/zosyn. Will follow, encouraged him to complete covid series after discharge. (2) Below-knee amputation of left lower extremity: HPI Consult Data Date of Consult: 11/03/20 HPI Narrative HPI Narrative: RK MCCLURE, is a 64 M with prior L BKA, presented after falling onto his stump 2 days ago, had progressive pain, redness, serous drainage. No fever or chills. Has gotten 1 of 2 covid shots. No n/v/d, no recent abx. Full ROS performed and neg except as noted above. [facility] Medical History Benign essential hypertension CAD (coronary artery disease) History of below-knee amputation of left lower extremity History of gastroesophageal reflux (GERD) Homelessness Hypertension Hypothyroidism Smoker Type 2 diabetes mellitus Home Medications levothyroxine 75 mcg PO DAILY 09/01/13 [History Last Taken 10/29/20] duloxetine 30 mg PO DAILY 07/07/19 [History Last Taken 4 Days Ago ~11/19/19] rosuvastatin 20 mg PO DAILY 07/07/19 [History Last Taken 11/01/20] metoprolol tartrate 25 mg PO BID 11/23/19 [History Last Taken 11/01/20] gabapentin 800 mg PO TIDCM #30 tab 04/19/20 [Rx Last Taken 11/01/20] nitroglycerin 0.4 mg SUBLINGUAL Q5M PRN 11/02/20 [History Last Taken Unknown] Allergy/AdvReac Type Severity Reaction Status Date / Time colesevelam HCl Allergy Rash Verified 11/02/20 12:14 [From WelChol] dicyclomine Allergy Rash Verified 11/02/20 12:14 divalproex sodium Allergy Unknown Verified 11/02/20 12:14 [From Depakote] rofecoxib [From Vioxx] Allergy Rash Verified 11/02/20 12:14 vancomycin AdvReac Rash Verified 11/02/20 12:14 Family History (Updated 11/02/20 @ 16:[address] Pricilla Lira MD) Mother Diabetes Father Cancer History of Lung CA. Surgical History (Updated 11/02/20 @ 16:[address] Pricilla Lira MD) Hx of CABG S/P BKA (below knee amputation) Social History (Updated 11/02/20 @ 16:[address] Pricilla Lira MD) housing: homeless Smoking Status: Current every day smoker tobacco type: cigarettes Smoking packs per day: 1 Smoking cigarettes per day: 20.0 how long ago did patient quit smoking: Patient with ongoing 1 ppd since [age] years old. alcohol intake: never substance use type: does not use Physical Exam Const alert, oriented x3 and no apparent distress General Appearance: cooperative Exam Limitations: no limitations HEENT normocephalic and head/scalp atraumatic Eyes EOMs intact bilaterally Neck supple and No nodes Resp clear to auscultation bilaterally Cardio regular rate and regular rhythm GI normal to inspection, nondistended, normoactive bowel sounds Extremity no clubbing, cyanosis or edema Skin Skin Narrative: LLE wrapped, s/p BKA Neuro CN's II-XII intact bilaterally Medical Records Data Medical Nutrition Assessment Dietitian: Nutrition Therapy Diagnosis Start: 11/03/20 10:46 Freq: Status: Active Protocol: Document 11/03/20 11:02 [facility] (Rec: 11/03/20 11:02 [facility] [id number]) Nutrition Malnutrition Evidence of Malnutrition Exists No Intake Problem Increased Nutrient Needs (specify) Etiology (protein) related to stasis ulcer to L BKA Signs/Symptoms as evidenced by open area w/ drainage Status Active Problem Recommendation Dietitian Recommendations/Changes As medically able, rec diet as tolerated to liberal Regular When medically able, rec ensure enlive 4x/day w/ medpass for increased nutrition if consumed (to help w/ skin healing) Lab / Micro Data Result Diagrams: 11/03/20 06:41 11/03/20 06:41 Labs: Laboratory Results - last 24 hr 11/02/20 11:35: S.aureus Protein A PCR POSITIVE H, MRSA (PCR) Negative 11/02/20 16:59: POC Glucose 111 H 11/02/20 21:46: POC Glucose 143 H 11/03/20 06:41: WBC 10.3, RBC 5.00, Hgb 12.7 L, Hct 41.1, MCV 82.2, MCH 25.4 L, MCHC 30.9 L, RDW Std Deviation 57.0 H, RDW Coeff of Jesus 19.4 H, Plt Count 223, MPV 12.5 H, Immature Gran % (Auto) 0.400, Neut % (Auto) 74.6 H, Lymph % (Auto) 9.4 L, [place] % (Auto) 12.3 H, Eos % (Auto) 2.4, Baso % (Auto) 0.9, Absolute Neuts (auto) 7.7, Absolute Lymphs (auto) 0.96, Nucleated RBC % 0 11/03/20 06:41: Sodium 138, Potassium 3.8, Chloride 110 H, Carbon Dioxide 23.0, Anion Gap 5, BUN 9, Creatinine 0.79, Estim Creat Clear Calc 105.35, Est GFR (MDRD) Af Amer 126, Est GFR (MDRD) Non-Af 104, BUN/Creatinine Ratio 11.4, Glucose 87, Calcium 8.2 L, Total Bilirubin 0.80, AST 11 L, ALT 15 L, Alkaline Phosphatase 93, Total Protein 6.0 L, Albumin 2.4 L, Globulin 3.6, Albumin/Globulin Ratio 0.7 L 11/03/20 06:50: POC Glucose 85 11/03/20 11:38: POC Glucose 100 Micro: Microbiology 11/02/20 11:35 Wound - Leg, Left Gram Stain - Final 11/02/20 11:35 Wound - Leg, Left Wound Culture - Preliminary Staphylococcus aureus GNR lactose hand molder meat Radiology Impression Lower Extremity MRI 11/03/20 10:47 IMPRESSION: Status post below the knee amputation. Osteomyelitis of the shaft of the tibia. Soft tissue wound with abscess. Electronically Signed: Dawson Owens MD at 13:39 EDT , Service support ,
[2020-11-03 17:46] LABS: Bedside Glucose 104 mg/dL (70-110)
--- NOTE | 2020-11-03 20:32 | PCM.CONS.GEN ---
Assessment & Plan Assessment/Plan (1) Non-pressure ulcer of stump of below knee amputation of left lower extremity with fat layer exposed: (2) Infection of left below knee amputation: (3) Osteomyelitis: QUALIFIERS: Laterality: left Osteomyelitis location: tibia Osteomyelitis type: other chronic Qualified Code(s): M86.662 - Other chronic osteomyelitis, left tibia and fibula (4) Type 2 diabetes mellitus: (5) Personal history of Methicillin resistant Staphylococcus aureus infection: (6) Status post below-knee amputation of left lower extremity: (7) Fall (on)(from) sidewalk curb, initial encounter: (8) Homelessness: (9) Current smoker: PLAN: X-ray and MRI reviewed. There is suspicion for osteomyelitis. Patient has a draining diabetic ulcer abscess anterior aspect left BKA stump. 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 He is currently on Zosyn and Vancomycin. Patient is going to need operative intervention with surgical preparation left BKA stump with incision and drainage and excisional debridement with partial ostectomy for osteomyelitis tibia draining diabetic ulcer abscess. Surgery will be done under anesthesia. Will schedule it in a couple of days. Will leave the wound open and proceed with postoperative care with the VAC. Can proceed with secondary wound closure after the infection is treated and when the swelling and inflammation subside. Soft tissue and bone will be sent to Pathology for analysis to rule out carcinoma and to evaluate for osteomyelitis. Soft tissue and bone will sent to Microbiology for culture. A positive culture will necessitate antibiotic therapy. Patient was informed of the risks and complications of the procedure including alternatives to surgery. These were discussed with the patient personally. Patient voices understanding and wishes to proceed. Will check a HgbA1c. At the time of future surgery for secondary wound closure, the HgbA1c must be less than 8. Anticipate increased metabolic demands from the infection. Will check a Prealbumin and encourage nutritional supplementation with protein to help the healing process. After discharge, can followup at [facility]. Encouraged patient to stop smoking as it may have deleterious effects on wound healing. HPI Consult Data Date of Consult: 11/03/20 PCP / Referring MD: MD Dr. Pricilla Kramer MD Attending Care Provider: Dr. Codey Hartman MD HPI Narrative Reason for Consultation: Draining diabetic ulcer abscess left BKA stump. HPI Narrative: RK MCCLURE, is a 64 M with a history of diabetes mellitus came to the ED on 11/02/20 with increasing pain and redness and swelling in his left BKA stump. His left BKA surgery was done on 04/17/20. He healed uneventfully and has a prosthesis. He hit the orthotic on a curb while walking and fell on his left BKA stump. He noticed an abrasion on the front of his stump. He denied fevers. In the ED the WBC was 12.3. In the ED, the front of the stump was squeezed where the abrasion was and some yellowish drainage came out. X-ray soft tissue swelling and air in the soft tissues just distal to the stump. He was given Zosyn in the ED and admitted. Vancomycin was later added. Today the patient has a WBC that has improved to 10.3. MRI was done today. It showed status post below the knee amputation. Osteomyelitis of the shaft of the tibia. Soft tissue wound with abscess. I was asked to evaluate this patient for surgical options for treatment. [facility] Medical History (Updated 11/06/20 @ 10:[address] Dionte Plata MD) Benign essential hypertension CAD (coronary artery disease) Coronary artery disease Diabetes High cholesterol History of below-knee amputation of left lower extremity History of gastroesophageal reflux (GERD) Homelessness Hypertension Hypothyroidism Infection of left below knee amputation Non-pressure ulcer of stump of below knee amputation of left lower extremity with fat layer exposed Personal history of Methicillin resistant Staphylococcus aureus infection Smoker Type 2 diabetes mellitus Home Medications levothyroxine 75 mcg PO DAILY 09/01/13 [History Last Taken 10/29/20] duloxetine 30 mg PO DAILY 07/07/19 [History Last Taken 4 Days Ago ~11/19/19] rosuvastatin 20 mg PO DAILY 07/07/19 [History Last Taken 11/01/20] metoprolol tartrate 25 mg PO BID 11/23/19 [History Last Taken 11/01/20] gabapentin 800 mg PO TIDCM #30 tab 04/19/20 [Rx Last Taken 11/01/20] nitroglycerin 0.4 mg SUBLINGUAL Q5M PRN 11/02/20 [History Last Taken Unknown] Allergy/AdvReac Type Severity Reaction Status Date / Time colesevelam HCl Allergy Rash Verified 11/02/20 12:14 [From WelChol] dicyclomine Allergy Rash Verified 11/02/20 12:14 divalproex sodium Allergy Unknown Verified 11/02/20 12:14 [From Depakote] rofecoxib [From Vioxx] Allergy Rash Verified 11/02/20 12:14 vancomycin AdvReac Rash Verified 11/02/20 12:14 Family History (Updated 11/02/20 @ 16:[address] Pricilla Lira MD) Mother Diabetes Father Cancer History of Lung CA. Surgical History (Updated 11/06/20 @ 10:[address] Dionte Plata MD) H/O cardiac catheterization History of coronary artery stent placement Hx of CABG S/P BKA (below knee amputation) Social History (Updated 11/02/20 @ 16:[address] Pricilla Lira MD) housing: homeless Smoking Status: Current every day smoker tobacco type: cigarettes Smoking packs per day: 1 Smoking cigarettes per day: 20.0 how long ago did patient quit smoking: Patient with ongoing 1 ppd since [age] years old. alcohol intake: never substance use type: does not use ROS ROS Narrative CONSTITUTIONAL: No weight loss, fever, chills, + weakness or fatigue. HEENT: Eyes: No visual loss, blurred vision, double vision or yellow sclerae. Ears, Nose, Throat: No hearing loss, sneezing, congestion, runny nose or sore throat. SKIN: + LLE BKA w/ stump redness, drainage. CARDIOVASCULAR: No chest pain, chest pressure or chest discomfort, palpitations, edema, orthopnea, syncopal events. RESPIRATORY: No shortness of breath, cough or sputum, wheezing, hemoptysis. GASTROINTESTINAL: No anorexia, nausea, vomiting or diarrhea, abdominal pain, melena, BRBPR. GENITOURINARY: No dysuria, frequency, urgency or retention. NEUROLOGICAL: No headache, dizziness, syncope, paralysis, ataxia, numbness or tingling in the extremities, focal weakness, change in bowel or bladder control, seizure. MUSCULOSKELETAL: + muscle, back pain, joint pain or stiffness. HEMATOLOGIC: No anemia, bleeding or bruising. LYMPHATICS: No enlarged nodes. No history of splenectomy. PSYCHIATRIC: No history of depression or anxiety. ENDOCRINOLOGIC: No reports of sweating, cold or heat intolerance. No polyuria or polydipsia. ALLERGIES: No history of asthma, hives, eczema or rhinitis. Physical Exam Narrative General: Awake, alert, oriented x 3. Skin: Normal color, normal turgor, no icterus, no cyanosis except noted LLE BKA with stump wound, serosanguinous, warm to touch, erythematous circumferentially. HEENT: EOMI, PERRLA, MMM. Lungs: Diminished at the bases. No wheezing. Heart: Regular rate and rhythm Abdomen: Soft, Nondistended. Extremities: His left BKA stump shows some mild swelling. There is a small ulcer anteriorly on the stump. Measures 1 cm. I could not express any fluid. There is some surrounding redness which has slightly improved since starting IV antibiotics. Neurological: cranial nerves II-XII grossly normal. Psychiatric: Affect appears fatigued. Medical Records Data Medical Nutrition Assessment Dietitian: Nutrition Therapy Diagnosis Start: 11/03/20 10:46 Freq: Status: Active Protocol: Document 11/03/20 11:02 [facility] (Rec: 11/03/20 11:02 [facility] [id number]) Nutrition Malnutrition Evidence of Malnutrition Exists No Intake Problem Increased Nutrient Needs (specify) Etiology (protein) related to stasis ulcer to L BKA Signs/Symptoms as evidenced by open area w/ drainage Status Active Problem Recommendation Dietitian Recommendations/Changes As medically able, rec diet as tolerated to liberal Regular When medically able, rec ensure enlive 4x/day w/ medpass for increased nutrition if consumed (to help w/ skin healing) Lab / Micro Data Attestation: I reviewed the patient's lab results. Result Diagrams: 11/06/20 05:21 11/06/20 05:21 Labs: Laboratory Results - last 24 hr 11/02/20 21:46: POC Glucose 143 H 11/03/20 06:41: WBC 10.3, RBC 5.00, Hgb 12.7 L, Hct 41.1, MCV 82.2, MCH 25.4 L, MCHC 30.9 L, RDW Std Deviation 57.0 H, RDW Coeff of Jesus 19.4 H, Plt Count 223, MPV 12.5 H, Immature Gran % (Auto) 0.400, Neut % (Auto) 74.6 H, Lymph % (Auto) 9.4 L, [place] % (Auto) 12.3 H, Eos % (Auto) 2.4, Baso % (Auto) 0.9, Absolute Neuts (auto) 7.7, Absolute Lymphs (auto) 0.96, Nucleated RBC % 0 11/03/20 06:41: Sodium 138, Potassium 3.8, Chloride 110 H, Carbon Dioxide 23.0, Anion Gap 5, BUN 9, Creatinine 0.79, Estim Creat Clear Calc 105.35, Est GFR (MDRD) Af Amer 126, Est GFR (MDRD) Non-Af 104, BUN/Creatinine Ratio 11.4, Glucose 87, Calcium 8.2 L, Total Bilirubin 0.80, AST 11 L, ALT 15 L, Alkaline Phosphatase 93, Total Protein 6.0 L, Albumin 2.4 L, Globulin 3.6, Albumin/Globulin Ratio 0.7 L 11/03/20 06:50: POC Glucose 85 11/03/20 11:38: POC Glucose 100 11/03/20 17:37: POC Glucose 104 Micro: Microbiology 11/02/20 11:35 Wound - Leg, Left Gram Stain - Final 11/02/20 11:35 Wound - Leg, Left Wound Culture - Preliminary Staphylococcus aureus GNR 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 Osteomyelitis of the shaft of the tibia. Soft tissue wound with abscess. Electronically Signed: Dawson Owens MD at 13:39 EDT , Service support , Procedure Criteria Type of Procedure Procedure Type: Elective Elective Risks - COVID COVID Risk Discussion: The surgeon/proceduralist and patient have discussed in detail the risk of exposure to and/or potential harm posed by the COVID-19 virus with having a surgery/procedure at this time versus the risk of delaying the surgery/procedure. It is not possible to know either the risk of delaying the surgery or procedure or chance of getting an infection with perfect accuracy, but a joint decision was made between the patient and the surgeon/proceduralist to proceed at this time with the scheduled surgery/procedure as indicated on the consent form. Charges/Coding Visit Charges Inpatient E&M: 17758 Init Hosp L2 (ICD-10 - T87.89, T87.44, M86.9, E11.9, Z86.14, Z89.512, F17.200, Z59.0, W10.1xxA)
[2020-11-03] MEDS: Atorvastatin Calcium 40 MG Tablet PO (22:53)
[2020-11-03] MEDS: Acetaminophen 325 MG Tablet 650 MG PO (22:57)
[2020-11-03] MEDS: Temazepam 15 MG Capsule PO (22:57)
[2020-11-03 23:00] LABS: Bedside Glucose 120 mg/dL (70-110)
[2020-11-04] VITALS (7 sets, daily range): BP systolic 127–144; BP diastolic 71–87; PULSE 60–67; RESP 16–18; TEMP 36.5–37.1; O2SAT 90–97
[2020-11-04 05:00] LABS: Vancomycin, Trough Level 10.9 ug/mL (5.0-15.0)
--- NOTE | 2020-11-04 05:26 | PHA.PHARE_ITS ---
Consult Pharmacy has been consulted to manage selected antiobiotic: Vancomycin Type of Consult: Follow-up Labs: Sodium 138 mmol/L (136-145) 11/03/20 06:41 Potassium 3.8 mmol/L (3.5-5.1) 11/03/20 06:41 Chloride 110 mmol/L (98-107) H 11/03/20 06:41 Carbon Dioxide 23.0 mmol/L (21.0-32.0) 11/03/20 06:41 Anion Gap 5 (5-15) 11/03/20 06:41 BUN 9 mg/dL (7-18) 11/03/20 06:41 Creatinine 0.79 mg/dL (0.70-1.30) 11/03/20 06:41 Est GFR (MDRD) Af Amer 126 mL/min (>60) 11/03/20 06:41 Est GFR (MDRD) Non-Af 104 mL/min (>60) 11/03/20 06:41 BUN/Creatinine Ratio 11.4 RATIO (10-20) 11/03/20 06:41 Glucose 87 mg/dL (74-106) 11/03/20 06:41 Vancomycin Trough 10.9 ug/mL (5.0-15.0) 11/04/20 04:35 Microbiology: Microbiology 11/02/20 11:35 Wound - Leg, Left Gram Stain - Final 11/02/20 11:35 Wound - Leg, Left Wound Culture - Preliminary Staphylococcus aureus GNR lactose research assistant Goal Trough: 15-20 mcg/mL Pharmacy Plan for Drug Dosing: Pharmacy Service will continue to monitor and adjust dosing as required. TROUGH 10.9 INCREASE TO 1750 Q12H AND FOLLOW UP TROUGH BEFORE 4TH DOSE Follow-Up Labs: Trough Vancomycin Labs to be done on [date and time ordered]: 11/05 @ 4415
[2020-11-04 06:32] LABS: Absolute Lymphocyte Count 1.29 X10^3/uL (0.83-4.51); Absolute Neutrophil Count 5.3 X10^3/uL (2.0-7.7); Basophil% 1.2 % (0-1); Eosinophil# 0.45 X10^3/uL; Eosinophils% 5.5 % (0-5); Hematocrit 38.7 % (40-54); Hemoglobin 11.8 g/dL (13.0-16.5); Lymphocyte # 1.29 X10^3/ul (0.83-4.51); Lymphocyte % 15.6 % (19-41); Mean Corp Hgb Conc 30.5 g/dL (32-36); Mean Corpuscular Hgb 24.8 pg (27.0-32.0); Mean Corpuscular Volume 81.5 fL (80-94); Mean Platelet Vol. 11.1 fl (6.2-12.0); Monocyte# 1.12 X10^3/uL; Monocyte% 13.6 % (0-10); NRBC Flagged by Analyzer 0 % (0-5); Neutrophil # 5.27 X10^3/uL (2.7-7.7); Neutrophil % 63.9 % (47-70); Platelet Count 222 K/mm3 (150-450); RBC Distribution Width CV 18.7 % (11.6-14.6); RBC Distribution Width SD 55.9 fl (35.1-43.9); Red Blood Count 4.75 M/mm3 (4.6-6.2); White Blood Count 8.3 K/mm3 (4.4-11.0)
[2020-11-04] MEDS: Levothyroxine 75 MCG Tablet PO (06:55)
[2020-11-04 07:00] LABS: Bedside Glucose 119 mg/dL (70-110)
[2020-11-04 07:08] LABS: Anion Gap 6 (5-15); BUN 8 mg/dL (7-18); BUN/Creat Ratio 11.4 RATIO (10-20); Calcium,Total 8.2 mg/dL (8.5-10.1); Chloride 113 mmol/L (98-107); EST Glomerular Filtration Rate 119 mL/min (>60); Est Glom Filt Rate - Afr Amer 144 mL/min (>60); Glucose 117 mg/dL (74-106); Magnesium 2.3 mg/dL (1.6-2.6); Potassium 3.4 mmol/L (3.5-5.1); Prealbumin 7.7 mg/dL (20.0-40.0); Sodium Level 141 mmol/L (136-145)
--- NOTE | 2020-11-04 07:59 | PN.HOSP_ITS ---
Subjective Subjective Patient seen. Wound cultures so far positive for Staphylococcus aureus and GNR lactose waiter/waitress take out. MRI obtained also demonstrated Osteomyelitis of the shaft of the left tibia. Objective Data Objective Data Vital Signs: Vital Signs Temp Pulse Resp BP Pulse Ox 97.7 F L 60 17 127/75 H 90 11/04/20 03:34 11/04/20 03:34 11/04/20 03:34 11/04/20 03:34 11/04/20 07:58 Oxygen Delivery Method Room Air Weight: 82.917 kg Body Mass Index (BMI) 23.5 Intake & Output: Intake and Output for Last 24 Hours 11/02/20 11/03/20 11/04/20 23:59 23:59 23:59 Intake Total 940 / 1460 4801.84 / 5321.84 1425.25 / 1425.25 Output Total 300 / 700 2300 / 2925 1575 / 1575 Balance 640 / 760 2501.84 / 2396.84 -149.75 / -149.75 Medical Nutrition Assessment Dietitian: Nutrition Therapy Diagnosis Start: 11/03/20 10:46 Freq: Status: Active Protocol: Document 11/03/20 11:02 [facility] (Rec: 11/03/20 11:02 [facility] [id number]) Nutrition Malnutrition Evidence of Malnutrition Exists No Intake Problem Increased Nutrient Needs (specify) Etiology (protein) related to stasis ulcer to L BKA Signs/Symptoms as evidenced by open area w/ drainage Status Active Problem Recommendation Dietitian Recommendations/Changes As medically able, rec diet as tolerated to liberal Regular When medically able, rec ensure enlive 4x/day w/ medpass for increased nutrition if consumed (to help w/ skin healing) Lab / Micro Data Result Diagrams: 11/04/20 06:15 11/04/20 06:15 Labs: Laboratory Results - last 24 hr 11/03/20 11:38: POC Glucose 100 11/03/20 17:37: POC Glucose 104 11/03/20 22:51: POC Glucose 120 H 11/04/20 04:35: Vancomycin Trough 10.9 11/04/20 06:15: WBC 8.3, RBC 4.75, Hgb 11.8 L, Hct 38.7 L, MCV 81.5, MCH 24.8 L, MCHC 30.5 L, RDW Std Deviation 55.9 H, RDW Coeff of Jesus 18.7 H, Plt Count 222, MPV 11.1, Immature Gran % (Auto) 0.200, Neut % (Auto) 63.9, Lymph % (Auto) 15.6 L, [place] % (Auto) 13.6 H, Eos % (Auto) 5.5 H, Baso % (Auto) 1.2 H, Absolute Neuts (auto) 5.3, Absolute Lymphs (auto) 1.29, Nucleated RBC % 0 11/04/20 06:15: Sodium 141, Potassium 3.4 L, Chloride 113 H, Carbon Dioxide 22.0, Anion Gap 6, BUN 8, Creatinine 0.70, Estim Creat Clear Calc 118.90, Est GFR (MDRD) Af Amer 144, Est GFR (MDRD) Non-Af 119, BUN/Creatinine Ratio 11.4, Glucose 117 H, Calcium 8.2 L, Magnesium 2.3, Prealbumin 7.7 L 11/04/20 06:53: POC Glucose 119 H Micro: Microbiology 11/02/20 11:35 Blood Culture (Wb) - Anticubital Left Blood Culture - Preliminary No growth in 48 hours. 11/02/20 11:25 Blood Culture (Wb) - Right Hand Blood Culture - Preliminary No growth in 48 hours. 11/02/20 11:35 Wound - Leg, Left Gram Stain - Final 11/02/20 11:35 Wound - Leg, Left Wound Culture - Preliminary Staphylococcus aureus GNR lactose waiter/waitress take out Radiography Diagnostic Testing: Radiology Impression Lower Extremity MRI 11/03/20 10:47 IMPRESSION: Status post below the knee amputation. Osteomyelitis of the shaft of the tibia. Soft tissue wound with abscess. Electronically Signed: Dawson Owens MD at 13:39 EDT , Service support , Physical Exam Narrative GENERAL: cooperative HEENT: Atraumatic; EYES; Anicteric, Normal Conjunctiva NECK; supple, normal thyroid, RESPIRATORY: Diminished to auscultation CARDIOVASCULAR: Regular S1 S2, GI: soft, normoactive bowel sounds, : No Renal angle tenderness; EXTREMITIES: Left BKA with stump erythema warmth and swelling MUSCULOSKELETAL: no muscle waisting NEURO: Awake; no lateralizing signs. SKIN: As described above PSYCH; Flat affect Assessment & Plan Assessment/Plan (1) Cellulitis of lower extremity: QUALIFIERS: Laterality: left Qualified Code(s): L03.116 - Cellulitis of left lower limb PLAN: Patient is a 64-year-old gentleman with multiple comorbidities including diabetes mellitus type 2, history of left lower extremity below-knee amputation who presented with redness swelling and pain involving the stump. An assessment of stump infection made admitted to regular nursing for further management 1. Left below-knee amputation stump infection ?Plain x-rays obtained demonstrated soft tissue swelling and air in the soft tissues just distal to the stump.. Patient started on broad-spectrum antibiotic therapy with vancomycin and Zosyn cultures sent with consultation placed to both vascular surgery and infectious disease. As part of patient's management ordered MRI of the stump to rule out osteomyelitis -11/04/2020.Patient seen. Wound cultures so far positive for Staphylococcus aureus and GNR lactose waiter/waitress take out. MRI obtained also demonstrated Osteomyelitis of the shaft of the left tibia. Consult was placed to infectious disease patient was seen by Dr. Almendarez. Also requested for PICC line for possible long-term IV antibiotics 3. Diabetes mellitus type II with complications including diabetic polyneuropathy - Placed on Accu-Cheks a.c. and at bedtime and covered with sliding scale insulin 3. Coronary artery disease -status post CABG and subsequent PCI 4. Hypothyroidism - Patient is on levothyroxine home dose continued 5. Diabetic polyneuropathy ?Patient is on gabapentin 6. Dyslipidemia -Patient is on statin therapy, continued at home dose 7. Hypertension - Blood pressure controlled, home medications continued with dose adjustment as needed 8. Depression with anxiety ?Patient is on duloxetine did continue 9. Tobacco dependence - Counseled on cessation, offered nicotine patch for tobacco cravings 10. DVT prophylaxis - On SC heparin Charges/Coding Visit Charges Inpatient E&M: 55611 Subs Hosp L3
[2020-11-04 09:20] LABS: Hemoglobin A1c 5.6 % (3.8-5.6)
[2020-11-04] MEDS: 0.9% Normal Saline 1,000 ML 100 ML IV ×2 (10:32→21:47)
[2020-11-04] MEDS: Gabapentin 800 MG Tablet PO ×3 (10:33→16:54)
[2020-11-04] MEDS: DULoxetine Hcl 30 MG Capsule PO (10:33)
[2020-11-04] MEDS: Metoprolol Tartrate 25 MG Tablet PO ×2 (10:33→21:50)
[2020-11-04] MEDS: Famotidine 20 MG Tablet PO ×2 (10:33→21:50)
[2020-11-04] MEDS: Potassium Chloride Oral Tablet 20 MEQ PO ×2 (10:35→16:54)
[2020-11-04 17:00] LABS: Bedside Glucose 114 mg/dL (70-110)
[2020-11-04] MEDS: Atorvastatin Calcium 40 MG Tablet PO (21:50)
[2020-11-04 22:21] LABS: Bedside Glucose 120 mg/dL (70-110)
[2020-11-05] MEDS: 0.9% Saline Lock 10 ML Syringe IV ×2 (01:08→13:26)
[2020-11-05] MEDS: 0.9% Normal Saline 1,000 ML 100 ML IV ×3 (01:11→22:35)
--- NOTE | 2020-11-05 01:22 | NURSING ---
pt refusing lab draw
[2020-11-05 03:41] VITALS: BP 131/58; PULSE 64; RESP 18; TEMP 37.1; O2SAT 96
[2020-11-05 06:21] LABS: Bedside Glucose 110 mg/dL (70-110)
[2020-11-05] MEDS: Levothyroxine 75 MCG Tablet PO (06:38)
[2020-11-05 06:46] LABS: Bedside Glucose 95 mg/dL (70-110)
[2020-11-05 06:57] LABS: Absolute Lymphocyte Count 1.18 X10^3/uL (0.83-4.51); Absolute Neutrophil Count 7.9 X10^3/uL (2.0-7.7); Basophil# 0.11 X10^3/uL; Eosinophil# 0.34 X10^3/uL; Eosinophils% 3.2 % (0-5); Hematocrit 40.1 % (40-54); Hemoglobin 12.5 g/dL (13.0-16.5); Lymphocyte # 1.18 X10^3/ul (0.83-4.51); Mean Corp Hgb Conc 31.2 g/dL (32-36); Mean Corpuscular Hgb 25.3 pg (27.0-32.0); Mean Corpuscular Volume 81.2 fL (80-94); Mean Platelet Vol. 11.3 fl (6.2-12.0); Monocyte# 1.12 X10^3/uL; Monocyte% 10.5 % (0-10); NRBC Flagged by Analyzer 0 % (0-5); Neutrophil # 7.91 X10^3/uL (2.7-7.7); Platelet Count 252 K/mm3 (150-450); RBC Distribution Width CV 19.2 % (11.6-14.6); Red Blood Count 4.94 M/mm3 (4.6-6.2); White Blood Count 10.7 K/mm3 (4.4-11.0)
[2020-11-05 07:02] LABS: Anion Gap 6 (5-15); BUN 8 mg/dL (7-18); BUN/Creat Ratio 12.2 RATIO (10-20); Calcium,Total 8.5 mg/dL (8.5-10.1); Chloride 109 mmol/L (98-107); Creatinine, Serum 0.66 mg/dL (0.70-1.30); EST Glomerular Filtration Rate 129 mL/min (>60); Est Glom Filt Rate - Afr Amer 156 mL/min (>60); Glucose 86 mg/dL (74-106); Potassium 3.6 mmol/L (3.5-5.1); Sodium Level 138 mmol/L (136-145)
--- NOTE | 2020-11-05 07:23 | PN.HOSP_ITS ---
Subjective Subjective Patient wound culture results are as below Microbiology 11/02/20 11:35 Gram Stain - Final Wound - Leg, Left Wound Culture - Final Staphylococcus aureus Enterobacter cloacae complex Corynebacterium amycolatum 11/02/20 11:35 Blood Culture - Preliminary Blood Culture (Wb) - Anticubital Left No growth in 48 hours. 11/02/20 11:25 Blood Culture - Preliminary Blood Culture (Wb) - Right Hand No growth in 48 hours. Objective Data Objective Data Vital Signs: Vital Signs Temp Pulse Resp BP Pulse Ox 98.8 F 64 18 131/58 H 96 11/05/20 03:41 11/05/20 03:41 11/05/20 03:41 11/05/20 03:41 11/05/20 03:41 Oxygen Delivery Method Room Air Weight: 82 kg Body Mass Index (BMI) 23.5 Intake & Output: Intake and Output for Last 24 Hours 11/03/20 11/04/20 11/05/20 23:59 23:59 23:59 Intake Total 4801.84 / 5321.84 5171.17 / 5171.17 1415.33 / 1415.33 Output Total 2300 / 2925 5175 / 5175 1225 / 1225 Balance 2501.84 / 2396.84 -3.83 / -3.83 190.33 / 190.33 Medical Nutrition Assessment Dietitian: Nutrition Therapy Diagnosis Start: 11/03/20 10:46 Freq: Status: Active Protocol: Document 11/03/20 11:[address] [facility] (Rec: 11/03/20 11:[address] [facility] [id number]) Nutrition Malnutrition Evidence of Malnutrition Exists No Intake Problem Increased Nutrient Needs (specify) Etiology (protein) related to stasis ulcer to L BKA Signs/Symptoms as evidenced by open area w/ drainage Status Active Problem Recommendation Dietitian Recommendations/Changes As medically able, rec diet as tolerated to liberal Regular When medically able, rec ensure enlive 4x/day w/ medpass for increased nutrition if consumed (to help w/ skin healing) Lab / Micro Data Result Diagrams: 11/05/20 05:35 11/05/20 05:35 Labs: Laboratory Results - last 24 hr 11/04/20 06:15: Hemoglobin A1c 5.6 11/04/20 12:12: POC Glucose 110 11/04/20 16:52: POC Glucose 114 H 11/04/20 21:46: POC Glucose 120 H 11/05/20 05:35: WBC 10.7, RBC 4.94, Hgb 12.5 L, Hct 40.1, MCV 81.2, MCH 25.3 L, MCHC 31.2 L, RDW Std Deviation 56.0 H, RDW Coeff of Jesus 19.2 H, Plt Count 252, MPV 11.3, Immature Gran % (Auto) 0.300, Neut % (Auto) 74.0 H, Lymph % (Auto) 11.0 L, Ch[place] % (Auto) 10.5 H, Eos % (Auto) 3.2, Baso % (Auto) 1.0, Absolute N euts (auto) 7.9 H, Absolute Lymphs (auto) 1.18, Nucleated RBC % 0 11/05/20 05:35: Sodium 138, Potassium 3.6, Chloride 109 H, Carbon Dioxide 23.0, Anion Gap 6, BUN 8, Creatinine 0.66 L, Estim Creat Clear Calc 126.10, Est GFR (MDRD) Af Amer 156, Est GFR (MDRD) Non-Af 129, BUN/Creatinine Ratio 12.2, Glucose 86, Calcium 8.5 11/05/20 06:37: POC Glucose 95 Micro: Microbiology 11/02/20 11:35 Wound - Leg, Left Gram Stain - Final 11/02/20 11:35 Wound - Leg, Left Wound Culture - Preliminary Staphylococcus aureus GNR lactose land development manager Gram negative nuha Gram positive nuha 11/02/20 11:35 Blood Culture (Wb) - Anticubital Left Blood Culture - Preliminary No growth in 48 hours. 11/02/20 11:25 Blood Culture (Wb) - Right Hand Blood Culture - Preliminary No growth in 48 hours. Physical Exam Narrative GENERAL: cooperative HEENT: Atraumatic; EYES; Anicteric, Normal Conjunctiva NECK; supple, normal thyroid, RESPIRATORY: Diminished to auscultation CARDIOVASCULAR: Regular S1 S2, GI: soft, normoactive bowel sounds, : No Renal angle tenderness; EXTREMITIES: Left BKA with stump erythema warmth and swelling MUSCULOSKELETAL: no muscle waisting NEURO: Awake; no lateralizing signs. SKIN: As described above PSYCH; Flat affect Assessment & Plan Assessment/Plan (1) Cellulitis of lower extremity: QUALIFIERS: Laterality: left Qualified Code(s): L03.116 - Cellulitis of left lower limb PLAN: Patient is a 64-year-old gentleman with multiple comorbidities including diabetes mellitus type 2, history of left lower extremity below-knee amputation who presented with redness swelling and pain involving the stump. An assessment of stump infection made admitted to regular nursing for further man agement 1. Left below-knee amputation stump infection ?Plain x-rays obtained demonstrated soft tissue swelling and air in the soft tissues just distal to the stump.. Patient started on broad-spectrum antibiotic therapy with vancomycin and Zosyn cultures sent with consultation placed to both vascular surgery and infectious disease. As part of patient's management ordered MRI of the stump to rule out osteomyelitis -11/04/2020.Patient seen. Wound cultures so far positive for Staphylococcus mary us and GNR lactose land development manager. MRI obtained also demonstrated Osteomyelitis of the shaft of the left tibia. Consult was placed to infectious disease patient was seen by Dr. Almendarez. Also requested for PICC line for possible long-term IV antibiotics -11/05/2020. Adjusted antibiotic therapy based on culture results below. Discontinued vancomycin Microbiology 11/02/20 11:35 Wound - Leg, Left Gram Stain - Final 11/02/20 11:35 Wound - Leg, Left Wound Culture - Final Staphylococcus aureus Enterobacter cloacae complex 3. Diabetes mellitus type II with complications including diabetic polyneuropathy - Placed on Accu-Cheks a.c. and at bedtime and covered with sliding scale insulin 3. Coronary artery disease -status post CABG and subsequent PCI 4. Hypothyroidism - Patient is on levothyroxine home dose continued 5. Diabetic polyneuropathy ?Patient is on gabapentin 6. Dyslipidemia -Patient is on statin therapy, continued at home dose 7. Hypertension - Blood pressure controlled, home medications continued with dose adjustment as needed 8. Depression with anxiety ?Patient is on duloxetine did continue 9. Tobacco dependence - Counseled on cessation, offered nicotine patch for tobacco cravings 10. DVT prophylaxis - On SC heparin Charges/Coding Visit Charges Inpatient E&M: 30352 Subs Hosp L2
[2020-11-05 08:18] VITALS: BP 146/78; PULSE 70; PULSE 75; RESP 18; TEMP 37.1; O2SAT 95
[2020-11-05 08:42] VITALS: PULSE 75
[2020-11-05] MEDS: DULoxetine Hcl 30 MG Capsule PO (08:42)
[2020-11-05] MEDS: Metoprolol Tartrate 25 MG Tablet PO ×2 (08:42→22:29)
[2020-11-05] MEDS: Gabapentin 800 MG Tablet PO ×3 (08:42→17:12)
[2020-11-05] MEDS: Famotidine 20 MG Tablet PO ×2 (08:42→22:28)
[2020-11-05] MEDS: Potassium Chloride Oral Tablet 20 MEQ PO ×2 (08:43→17:12)
[2020-11-05] MEDS: Insulin Lispro 100 UNIT/ML INSULN.PEN SC (12:04)
[2020-11-05 13:42] VITALS: BP 136/63; PULSE 63; RESP 20; TEMP 37.1; O2SAT 96
[2020-11-05 14:01] LABS: Bedside Glucose 190 mg/dL (70-110)
[2020-11-05 17:01] LABS: Bedside Glucose 101 mg/dL (70-110)
[2020-11-05 20:32] VITALS: BP 142/85; PULSE 72; RESP 18; TEMP 37.1; O2SAT 96
[2020-11-05] MEDS: oxyCODONE 5 MG Tablet PO (20:33)
[2020-11-05] MEDS: Temazepam 15 MG Capsule PO (22:28)
[2020-11-05] MEDS: Atorvastatin Calcium 40 MG Tablet PO (22:28)
[2020-11-05 22:29] VITALS: BP 125/76; PULSE 74
[2020-11-05 22:50] LABS: Bedside Glucose 127 mg/dL (70-110)
[2020-11-06] VITALS (12 sets, daily range): BP systolic 95–134; BP diastolic 57–88; PULSE 60–71; RESP 16–18; TEMP 36.2–37.1; O2SAT 93–98; BMI 24.0
--- NOTE | 2020-11-06 | BON_PTH ---
PATIENT: RK MCCLURE LOC: MS3 U#:[id number] AGE/SX: 64/M ROOM: CA313 RE11/02/[address]: Dr. Vinicio Sanchez DO : 1955 BED: 1 DIS: 11/09/2020 SPEC #: [id number] RECD: 11/07/20 07:41 STATUS: JENNY REQ #: [id number] JUAN ALBERTO: 11/06/20 00:[address]: Dionte Plata DEPT: SURGICAL PATHOLOGY RECD BY: Cecilio Shipman ENTERED: 11/07/20 08:07 SP TYPE: Bone OTHR DR: MD Dr. Clement Jesus MD Dr. Eric Jopperi, DO Dr. James A Slaby, MD Dr. Robert Leininger, MD Tissues: A - Soft tissues, NOS B - Tibia, NOS Procedures: Decalcification bone/plaque Surgery Specimen Level III Comments: @ Ordering doctor for DEC edited from to DR.JSLABY Bassett by MAYA at 11/07/20 1403 @ Ordering doctor for SUIV edited from to @ by MAYA at 11/07/20 1403 @ Submitting doctor edited from to @ elieser TREJO at 11/07/20 1403 HEADER OPERATION: Incision and drainage, debridement, BKA PRE-OP DIAGNOSIS: Nonpressure ulcer of stump of below knee amputation of left lower extremity with fat layer exposed; infection of left below knee amputation; osteomyelitis TISSUE SUBMITTED: A ? Soft tissue, B ? Tibial bone MICROSCOPIC DIAGNOSIS A. Soft tissue: Pieces of skin and fibroadipose tissue with focal ulceration, acute and chronic inflammation, granulation tissue reaction and abscess formation. B. Tibial bone: Fragments of bone with moderate chronic osteomyelitis, reactive changes and minimal acute osteomyelitis. SJ:ava 11/09/2020 MICROSCOPIC DESCRIPTION Slides are reviewed. GROSS DESCRIPTION A - Received in fixative is one container labeled with the patient's name and designated infected stump tibial soft tissue. The specimen consists of multiple irregular fragments of light to dark bravo soft tissue ranging in size from 1 to 11.5 cm. The larger fragments contain fragments of skin with area of ulceration measuring 1 x 0.1 x 0.6 cm. Serial sections do not reveal mass lesions. [facility] sections are submitted in one cassette. B - Received in fixative is one container labeled with the patient's name and designated tibial bone. The specimen consists of multiple irregular fragments of dark bravo bone that in aggregate measure 3 x 2 x 0.2 cm. The specimen is totally submitted in one cassette after decalcification. / AM:ava 11/07/20 TC:2 CPT: 86711 x2, 95960
[2020-11-06 01:27] LABS: Thyroid Stim Hormone (TSH) 3.65 uIU/mL (0.358-3.74)
--- NOTE | 2020-11-06 01:38 | PCM.RX.CS ---
Consult Pharmacy has been consulted to manage selected antiobiotic: Vancomycin Type of Consult: Follow-up Labs: Sodium 138 mmol/L (136-145) 11/05/20 05:35 Potassium 3.6 mmol/L (3.5-5.1) 11/05/20 05:35 Chloride 109 mmol/L (98-107) H 11/05/20 05:35 Carbon Dioxide 23.0 mmol/L (21.0-32.0) 11/05/20 05:35 Anion Gap 6 (5-15) 11/05/20 05:35 BUN 8 mg/dL (7-18) 11/05/20 05:35 Creatinine 0.66 mg/dL (0.70-1.30) L 11/05/20 05:35 Est GFR (MDRD) Af Amer 156 mL/min (>60) 11/05/20 05:35 Est GFR (MDRD) Non-Af 129 mL/min (>60) 11/05/20 05:35 BUN/Creatinine Ratio 12.2 RATIO (10-20) 11/05/20 05:35 Glucose 86 mg/dL (74-106) 11/05/20 05:35 Vancomycin Trough 20.0 ug/mL (5.0-15.0) H 11/06/20 00:32 Microbiology: Microbiology 11/02/20 11:35 Wound - Leg, Left Gram Stain - Final 11/02/20 11:35 Wound - Leg, Left Wound Culture - Final Staphylococcus aureus Enterobacter cloacae complex Corynebacterium amycolatum 11/02/20 11:35 Blood Culture (Wb) - Anticubital Left Blood Culture - Preliminary No growth in 48 hours. 11/02/20 11:25 Blood Culture (Wb) - Right Hand Blood Culture - Preliminary No growth in 48 hours. Goal Trough: 15-20 mcg/mL Pharmacy Plan for Drug Dosing: Pharmacy Service will continue to monitor and adjust dosing as required. TROUGH 20.0 NO CHANGE, BUT FOLLOW UP TROUGH IN 24 HRS Follow-Up Labs: Trough Vancomycin Labs to be done on [date and time ordered]: 11/07 @ 0030
--- NOTE | 2020-11-06 05:00 | EKG12_ITS ---
Test Reason : AM EKG Blood Pressure : / mmHG Vent. Rate : 068 BPM Atrial Rate : 068 BPM P-R Int : 188 ms QRS Dur : 096 ms QT Int : 426 ms P-R-T Axes : 032 -15 -01 degrees QTc Int : 452 ms Normal sinus rhythm Normal ECG Confirmed by NEDA FERNANDES, GWENDOLYN ([id number]), research editor TIM FRANCIS ([id number]) on 11/08/2020 11:01:53 AM Referred By: JUICE Confirmed By:GWENDOLYN RED MD
[2020-11-06] MEDS: Levothyroxine 75 MCG Tablet PO (05:53)
[2020-11-06 05:59] LABS: Absolute Neutrophil Count 6.4 X10^3/uL (2.0-7.7); Basophil# 0.12 X10^3/uL; Basophil% 1.2 % (0-1); Eosinophil# 0.41 X10^3/uL; Eosinophils% 4.2 % (0-5); Hematocrit 38.6 % (40-54); Hemoglobin 12.4 g/dL (13.0-16.5); Lymphocyte % 15.4 % (19-41); Mean Corp Hgb Conc 32.1 g/dL (32-36); Mean Corpuscular Hgb 25.5 pg (27.0-32.0); Mean Corpuscular Volume 79.3 fL (80-94); Mean Platelet Vol. 11.4 fl (6.2-12.0); Monocyte# 1.25 X10^3/uL; Monocyte% 12.9 % (0-10); NRBC Flagged by Analyzer 0 % (0-5); Neutrophil % 65.9 % (47-70); Platelet Count 268 K/mm3 (150-450); RBC Distribution Width CV 18.7 % (11.6-14.6); RBC Distribution Width SD 53.7 fl (35.1-43.9); Red Blood Count 4.87 M/mm3 (4.6-6.2); White Blood Count 9.7 K/mm3 (4.4-11.0)
[2020-11-06 06:40] LABS: Anion Gap 5 (5-15); BUN 8 mg/dL (7-18); BUN/Creat Ratio 11.7 RATIO (10-20); Calcium,Total 8.9 mg/dL (8.5-10.1); Chloride 109 mmol/L (98-107); Creatinine, Serum 0.68 mg/dL (0.70-1.30); EST Glomerular Filtration Rate 123 mL/min (>60); Est Glom Filt Rate - Afr Amer 149 mL/min (>60); Glucose 85 mg/dL (74-106); Potassium 3.9 mmol/L (3.5-5.1); Sodium Level 137 mmol/L (136-145)
[2020-11-06 06:51] LABS: Bedside Glucose 95 mg/dL (70-110)
--- NOTE | 2020-11-06 09:55 | NURSING ---
wound photo: left stump
--- NOTE | 2020-11-06 10:03 | CASEMGMT ---
ISHA SAUCEDO NOTE: Pt screened with [facility] Palliative Care Screening Tool for strata 3, pt did not meet criteria. Mariano LOCON RN CM
--- NOTE | 2020-11-06 10:19 | PCM.PN.HOSP ---
Subjective Subjective Feels redness on stump getting worse. No pain. Objective Data Objective Data Vital Signs: Vital Signs Temp Pulse Resp BP Pulse Ox 36.8 C 64 16 123/80 H 93 11/06/20 05:51 11/06/20 05:51 11/06/20 05:51 11/06/20 05:51 11/06/20 05:51 Oxygen Delivery Method Room Air Weight: 82.3 kg Body Mass Index (BMI) 23.5 Intake & Output: Intake and Output for Last 24 Hours 11/04/20 11/05/20 11/06/20 23:59 23:59 23:59 Intake Total 5171.17 / 5171.17 4415.33 / 4415.33 895.83 / 895.83 Output Total 5175 / 5175 4465 / 4465 450 / 450 Balance -3.83 / -3.83 -49.67 / -49.67 445.83 / 445.83 Medical Nutrition Assessment Dietitian: Malnutrition Criteria Met Start: 11/03/20 10:46 Freq: Status: Active Protocol: Document 11/03/20 11:02 [facility] (Rec: 11/03/20 11:02 [facility] [id number]) Nutrition Malnutrition Evidence of Malnutrition Exists No Intake Problem Increased Nutrient Needs (specify) Etiology (protein) related to stasis ulcer to L BKA Signs/Symptoms as evidenced by open area w/ drainage Status Active Problem Recommendation Dietitian Recommendations/Changes As medically able, rec diet as tolerated to liberal Regular When medically able, rec ensure enlive 4x/day w/ medpass for increased nutrition if consumed (to help w/ skin healing) Lab / Micro Data Result Diagrams: 11/06/20 05:21 11/06/20 05:21 Labs: Laboratory Results - last 24 hr 11/05/20 11:37: POC Glucose 190 H 11/05/20 16:12: POC Glucose 101 11/05/20 22:27: POC Glucose 127 H 11/06/20 00:32: Vancomycin Trough 20.0 H 11/06/20 00:32: TSH 3.65 11/06/20 05:21: WBC 9.7, RBC 4.87, Hgb 12.4 L, Hct 38.6 L, MCV 79.3 L, MCH 25.5 L, MCHC 32.1, RDW Std Deviation 53.7 H, RDW Coeff of Jesus 18.7 H, Plt Count 268, MPV 11.4, Immature Gran % (Auto) 0.400, Neut % (Auto) 65.9, Lymph % (Auto) 15.4 L, Runnels % (Auto) 12.9 H, Eos % (Auto) 4.2, Baso % (Auto) 1.2 H, Absolute Neuts (auto) 6.4, Absolute Lymphs (auto) 1.50, Nucleated RBC % 0 11/06/20 05:21: Sodium 137, Potassium 3.9, Chloride 109 H, Carbon Dioxide 23.0, Anion Gap 5, BUN 8, Creatinine 0.68 L, Estim Creat Clear Calc 122.40, Est GFR (MDRD) Af Amer 149, Est GFR (MDRD) Non-Af 123, BUN/Creatinine Ratio 11.7, Glucose 85, Calcium 8.9 11/06/20 06:45: POC Glucose 95 Micro: Microbiology 11/06/20 08:50 Mucosa - Nose SARS-CoV-2 Antigen (Rapid) - Final 11/02/20 11:35 Wound - Leg, Left Gram Stain - Final 11/02/20 11:35 Wound - Leg, Left Wound Culture - Final Staphylococcus aureus Enterobacter cloacae complex Corynebacterium amycolatum 11/02/20 11:35 Blood Culture (Wb) - Anticubital Left Blood Culture - Preliminary No growth in 48 hours. 11/02/20 11:25 Blood Culture (Wb) - Right Hand Blood Culture - Preliminary No growth in 48 hours. Physical Exam Const alert and no apparent distress Resp normal respiratory effort, no retractions, no use of accessory muscles and clear to auscultation bilaterally Cardio regular rate, regular rhythm, S1 normal heart sound and S2 normal heart sound GI normal to inspection, nondistended, normoactive bowel sounds, soft to palpation, non-tender and non-distended Extremity Extremity Narrative: left stump wrapped--did not remove. Assessment & Plan Assessment/Plan (1) Wound infection: (2) Osteomyelitis: QUALIFIERS: Osteomyelitis type: other chronic Osteomyelitis location: tibia Laterality: left Qualified Code(s): M86.662 - Other chronic osteomyelitis, left tibia and fibula PLAN: 1. Left tibia osteomyelitis for OR today w PRS continue with pip/tazo Cx positive for MSSA, Enterobacter cloacae and Corynebacterium ID for long-term reccommendations. 2. Left stump soft tissue wound and abscess as above 3. DM2 fair control complicates care and recovery 4. VTE prophylaxis: SQ heparin Charges/Coding Visit Charges Inpatient E&M: 47356 Subs Hosp L2
[2020-11-06] MEDS: 0.9% Normal Saline 1,000 ML 100 ML IV (10:55)
[2020-11-06] MEDS: Metoprolol Tartrate 25 MG Tablet PO ×2 (11:10→21:31)
[2020-11-06 11:25] LABS: Bedside Glucose 95 mg/dL (70-110)
[2020-11-06] MEDS: 0.9% Saline Lock 10 ML Syringe IV (12:29)
--- NOTE | 2020-11-06 12:30 | NURSING ---
Pt transported to surgery via OR transporter.
[2020-11-06] MEDS: Lidocaine 1% /Epi 1:100 (20ml) 20 ML Vial (14:51)
[2020-11-06 15:51] LABS: Bedside Glucose 96 mg/dL (70-110)
--- NOTE | 2020-11-06 16:01 | OP.PCM_ITS ---
Problems Associated Problem List Diagnoses (1) Non-pressure ulcer of stump of below knee amputation of left lower extremity with fat layer exposed: (2) Infection of left below knee amputation: (3) Diabetes mellitus with ulcer of lower extremity: (4) Hematoma of amputation stump of left lower extremity: (5) Osteomyelitis: (6) Personal history of Methicillin resistant Staphylococcus aureus infection: (7) Status post below-knee amputation of left lower extremity: (8) Current smoker: (9) Homelessness: (10) Fall (on)(from) sidewalk curb, initial encounter: Report of Operation Date of Procedure: 11/06/20 Pre-Operative Diagnosis: (1) Draining diabetic ulcer abscess left below knee amputation stump. (2) Osteomyelitis. (3) Type 2 diabetes mellitus: (4) Personal history of Methicillin resistant Staphylococcus aureus infection: (5) Status post below-knee amputation of left lower extremity: (6) Fall (on)(from) sidewalk curb, initial encounter: (7) Homelessness: (8) Current smoker: Post-Operative Diagnosis: (1) Draining diabetic ulcer abscess left below knee amputation stump. (2) Osteomyelitis. (3) Hematoma left below knee amputation stump. (4) Type 2 diabetes mellitus: (5) Personal history of Methicillin resistant Staphylococcus aureus infection: (6) Status post below-knee amputation of left lower extremity: (7) Fall (on)(from) sidewalk curb, initial encounter: (8) Homelessness: (9) Current smoker: Surgery/Procedure Performed:: Surgical preparation left below knee amputation stump with incision and drainage and excisional debridement with partial ostectomy tibia for osteomyelitis and evacuation hematoma for draining diabetic ulcer abscess. Description of Surgical Findings:: 64 M with a history of diabetes mellitus came to the ED on 11/02/20 with increasing pain and redness and swelling in his left BKA stump. His left BKA surgery was done on 04/17/20. He healed uneventfully and has a prosthesis. He hit the orthotic on a curb while walking and fell on his left BKA stump. He noticed an abrasion on the front of his stump. He denied fevers. In the ED the WBC was 12.3. In the ED, the front of the stump was squeezed where the abrasion was and some yellowish drainage came out. X- ray soft tissue swelling and air in the soft tissues just distal to the stump. He was given Zosyn in the ED and admitted. Vancomycin was later added. Today the patient has a WBC that has improved to 10.3. MRI was done today. It showed status post below the knee amputation. Osteomyelitis of the shaft of the tibia. Soft tissue wound with abscess. I was asked to evaluate this patient for surgical options for treatment. Patient was informed of the risks and complications of the procedure including alternatives to surgery. These were discussed with the patient personally. Patient voices understanding and wishes to proceed. Encouraged patient to stop smoking as it may have deleterious effects on wound healing. Size of defect left below knee amputation stump - 11 x 6.5 x 4 cm. Surgeon: Dionte Plata sack sewer machine: None Type of Anesthesia: General Specimen's removed: 1. Draining diabetic ulcer abscess with hematoma, soft tissue, to Pathology and Microbiology. 2. Draining diabetic ulcer abscess with hematoma, tibial bone, to Pathology and Microbiology. Drains: None. Estimated Blood Loss (mL): 150. Description of Procedure: Patient was taken to OR in supine position and was placed under general anesthesia. The left BKA stump was prepped and draped in the usual fashion. SCD was placed on right leg for DVT prophylaxis. Periope rative antibiotics were given intravenously. Using xylocaine with epinephrine, the left BKA stump ulcer was infiltrated. After waiting 5 minutes for the anesthetic to take effect, I made an incision through the previous scar until the subcutaneous tissue was seen. A large hematoma was encountered that was dark blood with some creaminess seen. The hematoma was evacuated. It extended past the ulcer and the whole incision was opened up. The ulcer was slightly below the incision and an ellipse of skin was excised to include the ulceration. Some pus was seen. A lot of exudate and hypergranulation tissue was present as the tibia was involved with the hematoma. Irregularities on the bone were noted which is suspicious for osteomyelitis. Using a rongeur, I excised multiple areas of exposed bone. The bone will be sent to Pathology and to Microbiology. A rasp was used to smooth out the bony edges. A lot of fat necrosis was seen and was excised and debrided. Half the soft tissue and half the bone was sent to Pathology for analysis to rule out carcinoma and to evaluate for osteomyelitis. Half the soft tissue and half the bone was sent to Microbiology for culture. A positive culture will necessitate antibiotic therapy. The wound was irrigated with saline in a pulsatile fashion (3000 ml). Hemostasis was obtained with electrocautery. The size of the wound after incision and drainage and excisional debridement was 11 x 6.5 x 4 cm or 71.5 cm2. The wound was packed with Mepitel nonadherent dressing followed by Kerlix gauze and Betadine and followed by dry Kerlix gauze and ABD pads and philip wrap for compression. Patient tolerated the procedure well and was sent to PACU in satisfactory condition. Patient will be sent upstairs for continued postop care. The VAC will be applied tomorrow. Grafts/Implants Used: None. Complications None. Admit VTE Documentation VTE Present on Admission: No VTE Mechan Device Prophylaxis: SCD's VTE Pharm Prophylaxis ordered?: Yes Addendum Addendum: Surgery Charges CPT - 70303 ICD-10 - T87.89, T87.44, E11.622, M86.9, Z86.14, Z89.512, Z59.0, W10.1xxA, F17.200 48986 M86.9, T87.89, T87.44, E11.622, Z86.14, Z89.512, Z59.0, W10.1xxA, F17.200
[2020-11-06] MEDS: DULoxetine Hcl 30 MG Capsule PO (17:25)
[2020-11-06] MEDS: Potassium Chloride Oral Tablet 20 MEQ PO (17:25)
[2020-11-06] MEDS: Gabapentin 800 MG Tablet PO (17:25)
[2020-11-06] MEDS: Lactated Ringers 1,000 ML 60 ML IV (17:33)
[2020-11-06 17:45] LABS: Bedside Glucose 94 mg/dL (70-110)
--- NOTE | 2020-11-06 20:43 | NURSING ---
Pandemic documentation initiated 1899
[2020-11-06 21:31] LABS: Bedside Glucose 177 mg/dL (70-110)
[2020-11-06] MEDS: Temazepam 15 MG Capsule PO (21:31)
[2020-11-06] MEDS: Atorvastatin Calcium 40 MG Tablet PO (21:31)
[2020-11-06] MEDS: Famotidine 20 MG Tablet PO (21:31)
[2020-11-06] MEDS: Insulin Lispro 100 UNIT/ML INSULN.PEN SC (21:35)
[2020-11-07 01:03] LABS: Vancomycin, Trough Level 11.5 ug/mL (5.0-15.0)
[2020-11-07 03:48] VITALS: BP 113/64; PULSE 55; RESP 18; TEMP 36.8; O2SAT 94
[2020-11-07] MEDS: Levothyroxine 75 MCG Tablet PO (05:00)
[2020-11-07] MEDS: oxyCODONE 5 MG Tablet PO ×3 (05:00→21:53)
[2020-11-07] MEDS: Acetaminophen 325 MG Tablet 650 MG PO ×3 (05:00→21:54)
[2020-11-07 06:34] LABS: Absolute Lymphocyte Count 1.22 X10^3/uL (0.83-4.51); Absolute Neutrophil Count 4.9 X10^3/uL (2.0-7.7); Basophil% 1.3 % (0-1); Eosinophil# 0.39 X10^3/uL; Eosinophils% 5.1 % (0-5); Hematocrit 36.6 % (40-54); Hemoglobin 11.2 g/dL (13.0-16.5); Lymphocyte # 1.22 X10^3/ul (0.83-4.51); Mean Corp Hgb Conc 30.6 g/dL (32-36); Mean Corpuscular Hgb 25.1 pg (27.0-32.0); Mean Corpuscular Volume 81.9 fL (80-94); Mean Platelet Vol. 10.9 fl (6.2-12.0); Monocyte# 0.96 X10^3/uL; Monocyte% 12.6 % (0-10); NRBC Flagged by Analyzer 0 % (0-5); Neutrophil # 4.93 X10^3/uL (2.7-7.7); Neutrophil % 64.6 % (47-70); Platelet Count 261 K/mm3 (150-450); RBC Distribution Width CV 18.6 % (11.6-14.6); RBC Distribution Width SD 55.9 fl (35.1-43.9); Red Blood Count 4.47 M/mm3 (4.6-6.2); White Blood Count 7.6 K/mm3 (4.4-11.0)
[2020-11-07 06:45] LABS: Bedside Glucose 100 mg/dL (70-110)
[2020-11-07 07:21] LABS: Anion Gap 4 (5-15); BUN 10 mg/dL (7-18); BUN/Creat Ratio 12.6 RATIO (10-20); Calcium,Total 8.5 mg/dL (8.5-10.1); Chloride 108 mmol/L (98-107); Creatinine, Serum 0.79 mg/dL (0.70-1.30); EST Glomerular Filtration Rate 104 mL/min (>60); Est Glom Filt Rate - Afr Amer 126 mL/min (>60); Estimated Creatinine Clearance 102.32 ml/min; Glucose 89 mg/dL (74-106); Prealbumin 9.9 mg/dL (20.0-40.0); Sodium Level 137 mmol/L (136-145)
[2020-11-07 08:29] VITALS: BP 107/63; PULSE 55; RESP 16; TEMP 36.6; O2SAT 95
[2020-11-07] MEDS: Gabapentin 800 MG Tablet PO ×3 (08:32→17:03)
[2020-11-07] MEDS: Famotidine 20 MG Tablet PO ×2 (08:32→21:55)
[2020-11-07] MEDS: Potassium Chloride Oral Tablet 20 MEQ PO ×2 (08:32→17:03)
[2020-11-07 08:33] VITALS: PULSE 55
[2020-11-07] MEDS: DULoxetine Hcl 30 MG Capsule PO (08:35)
[2020-11-07] MEDS: 0.9% Saline Lock 10 ML Syringe IV (08:35)
[2020-11-07] MEDS: Morphine 4 MG/ML Syringe IV (08:36)
[2020-11-07] MEDS: Lactated Ringers 1,000 ML 60 ML IV ×2 (08:41→21:58)
--- NOTE | 2020-11-07 09:31 | NURSING ---
wound photo: left leg
--- NOTE | 2020-11-07 09:48 | PN.HOSP_ITS ---
Subjective Subjective Had some pain in stump post-op, but otherwise no complaints. Objective Data Objective Data Vital Signs: Vital Signs Temp Pulse Resp BP Pulse Ox 36.6 C 55 L 16 107/63 95 11/07/20 08:29 11/07/20 08:33 11/07/20 08:29 11/07/20 08:29 11/07/20 08:29 Oxygen Delivery Method Room Air Weight: 82.3 kg Body Mass Index (BMI) 24.0 Intake & Output: Intake and Output for Last 24 Hours 11/05/20 11/06/20 11/07/20 23:59 23:59 23:59 Intake Total 4415.33 / 4415.33 2589.08 / 2989.08 1708 / 1708 Output Total 4465 / 4465 2100 / 2750 1350 / 1350 Balance -49.67 / -49.67 489.08 / 239.08 358 / 358 Medical Nutrition Assessment Dietitian: Malnutrition Criteria Met Start: 11/03/20 10:46 Freq: Status: Active Protocol: Document 11/03/20 11:02 [facility] (Rec: 11/03/20 11:02 [facility] [id number]) Nutrition Malnutrition Evidence of Malnutrition Exists No Intake Problem Increased Nutrient Needs (specify) Etiology (protein) related to stasis ulcer to L BKA Signs/Symptoms as evidenced by open area w/ drainage Status Active Problem Recommendation Dietitian Recommendations/Changes As medically able, rec diet as tolerated to liberal Regular When medically able, rec ensure enlive 4x/day w/ medpass for increased nutrition if consumed (to help w/ skin healing) Lab / Micro Data Result Diagrams: 11/07/20 06:04 11/07/20 06:04 Labs: Laboratory Results - last 24 hr 11/06/20 11:05: POC Glucose 95 11/06/20 15:48: POC Glucose 96 11/06/20 17:23: POC Glucose 94 11/06/20 21:25: POC Glucose 177 H 11/07/20 00:30: Vancomycin Trough 11.5 11/07/20 06:04: WBC 7.6, RBC 4.47 L, Hgb 11.2 L, Hct 36.6 L, MCV 81.9, MCH 25.1 L, MCHC 30.6 L, RDW Std Deviation 55.9 H, RDW Coeff of Jesus 18.6 H, Plt Count 261, MPV 10.9, Immature Gran % (Auto) 0.400, Neut % (Auto) 64.6, Lymph % (Auto) 16.0 L, [place] % (Auto) 12.6 H, Eos % (Auto) 5.1 H, Baso % (Auto) 1.3 H, Absolute Neuts (auto) 4.9, Absolute Lymphs (auto) 1.22, Nucleated RBC % 0 11/07/20 06:04: Sodium 137, Potassium 4.0, Chloride 108 H, Carbon Dioxide 25.0, Anion Gap 4 L, BUN 10, Creatinine 0.79, Estim Creat Clear Calc 102.32, Est GFR (MDRD) Af Amer 126, Est GFR (MDRD) Non-Af 104, BUN/Creatinine Ratio 12.6, Glucose 89, Calcium 8.5, Prealbumin 9.9 L 11/07/20 06:37: POC Glucose 100 Micro: Microbiology 11/06/20 Unknown Tissue - Leg, Left Gram Stain - Final 11/06/20 Unknown Bone - Leg, Left Gram Stain - Final 11/06/20 08:50 Mucosa - Nose SARS-CoV-2 Antigen (Rapid) - Final 11/02/20 11:35 Wound - Leg, Left Gram Stain - Final 11/02/20 11:35 Wound - Leg, Left Wound Culture - Final Staphylococcus aureus Enterobacter cloacae complex Corynebacterium amycolatum 11/02/20 11:35 Blood Culture (Wb) - Anticubital Left Blood Culture - Preliminary No growth in 48 hours. 11/02/20 11:25 Blood Culture (Wb) - Right Hand Blood Culture - Preliminary No growth in 48 hours. Physical Exam Const alert HEENT Head and Scalp: normocephalic Resp normal respiratory effort, no retractions and no use of accessory muscles Cardio regular rate, regular rhythm, S1 normal heart sound and S2 normal heart sound GI normal to inspection, nondistended, normoactive bowel sounds, soft to palpation, non-tender and non-distended Extremity Extremity Narrative: left stump wrapped--did not remove Assessment & Plan Assessment/Plan (1) Wound infection: (2) Osteomyelitis: QUALIFIERS: Osteomyelitis type: other chronic Osteomyelitis loca tion: tibia Laterality: left Qualified Code(s): M86.662 - Other chronic osteomyelitis, left tibia and fibula PLAN: 1. Left tibia osteomyelitis 11/06: Surgical preparation left below knee amputation stump with incision and drainage and excisional debridement with partial ostectomy for osteomyelitis and evacuation hematoma for draining diabetic ulcer abscess. continue with pip/tazo Cx positive for MSSA, Enterobacter cloacae and Corynebacterium ID for long-term recommendations. 2. Left stump soft tissue wound and abscess as above 3. DM2 fair control complicates care and recovery 4. VTE prophylaxis: SQ heparin Charges/Coding Visit Charges Inpatient E&M: 46121 Subs Hosp L2
--- NOTE | 2020-11-07 10:27 | PCM.PN.ID ---
Physical Exam Narrative Feeling ok, no n/v/d, no fever Const alert and no apparent distress General Appearance: cooperative Resp normal air movement and clear to auscultation bilaterally Cardio regular rate and regular rhythm GI normal to inspection, nondistended, normoactive bowel sounds Skin Skin Narrative: leg wrapped ID ID: Route of nutrition/ use of supplements: [] Nutritional Intake: [] IV Site: [] Waggoner Catheter: [] Assessment & Plan Assessment/Plan (1) Wound infection: PLAN: Wound cx with mssa, enterobacter, corynebacteria. Dr. Plata consulted, MRI showed osteo and abscess, taken to OR 11/06 for I&D. Stopped vanc, cont zosyn. Ok for d/c on iv zosyn and po doxy for 6 week course, stop date 12/18/20, weekly labs, ID followup in 2 weeks. Will follow, encouraged him to complete covid series after discharge. (2) Below-knee amputation of left lower extremity:
--- NOTE | 2020-11-07 11:09 | CASEMGMT ---
Social Work Note SW received script that pt will need IV antibiotics at discharge. Pt is currently homeless, living in [place], recommendation is SNF placement for IV antibiotics and wound care. SW in to speak with pt. SW introduced self and role at [facility]. Pt is alert and orientated. Patient was provided a list of SNF providers including quality and resource use data and consistent with the patient?s preferred geographic region, medical needs, and insurance network. Pt states preferred provider is [facility]. SW spoke with PT/OT, asked for pt to be reevaluated for SNF. CARLTON placed a call to [facility] and left message for Tressa in admissions regarding referral. CARLTON faxed referral to [facility] Plan: [facility] pending acceptance and pre-cert Glendy Maher STRAP MAKING MACHINE OPERATOR, GETTERER
[2020-11-07] MEDS: Insulin Lispro 100 UNIT/ML INSULN.PEN SC (12:03)
[2020-11-07] MEDS: Doxycycline 100 MG CAPSULE PO ×2 (12:08→21:54)
[2020-11-07 12:11] LABS: Bedside Glucose 169 mg/dL (70-110)
--- NOTE | 2020-11-07 13:10 | PN.SURG_ITS ---
Subjective Subjective Postop #1 Patient sitting in bed. States pain is well controlled. Objective Data Objective Data Vital Signs: Vital Signs Temp Pulse Resp BP Pulse Ox 97.8 F 55 L 16 107/63 95 11/07/20 08:29 11/07/20 08:33 11/07/20 08:29 11/07/20 08:29 11/07/20 08:29 Oxygen Delivery Method Room Air Weight: 181 lb 7.047 oz Body Mass Index (BMI) 24.0 Intake & Output: Intake and Output for Last 24 Hours 11/05/20 11/06/20 11/07/20 23:59 23:59 23:59 Intake Total 4415.33 / 4415.33 2589.08 / 2989.08 1758 / 1758 Output Total 4465 / 4465 2100 / 2750 2200 / 2200 Balance -49.67 / -49.67 489.08 / 239.08 -442 / -442 Medical Nutrition Assessment Dietitian: Malnutrition Criteria Met Start: 11/03/20 10:46 Freq: Status: Active Protocol: Document 11/03/20 11:02 [facility] (Rec: 11/03/20 11:02 [facility] [id number]) Nutrition Malnutrition Evidence of Malnutrition Exists No Intake Problem Increased Nutrient Needs (specify) Etiology (protein) related to stasis ulcer to L BKA Signs/Symptoms as evidenced by open area w/ drainage Status Active Problem Recommendation Dietitian Recommendations/Changes As medically able, rec diet as tolerated to liberal Regular When medically able, rec ensure enlive 4x/day w/ medpass for increased nutrition if consumed (to help w/ skin healing) Lab / Micro Data Result Diagrams: 11/07/20 06:04 11/07/20 06:04 Labs: Laboratory Results - last 24 hr 11/06/20 15:48: POC Glucose 96 11/06/20 17:23: POC Glucose 94 11/06/20 21:25: POC Glucose 177 H 11/07/20 00:30: Vancomycin Trough 11.5 11/07/20 06:04: WBC 7.6, RBC 4.47 L, Hgb 11.2 L, Hct 36.6 L, MCV 81.9, MCH 25.1 L, MCHC 30.6 L, RDW Std Deviation 55.9 H, RDW Coeff of Jesus 18.6 H, Plt Count 261, MPV 10.9, Immature Gran % (Auto) 0.400, Neut % (Auto) 64.6, Lymph % (Auto) 16.0 L, [place] % (Auto) 12.6 H, Eos % (Auto) 5.1 H, Baso % (Auto) 1.3 H, Absolute Neuts (auto) 4.9, Absolute Lymphs (auto) 1.22, Nucleated RBC % 0 11/07/20 06:04: Sodium 137, Potassium 4.0, Chloride 108 H, Carbon Dioxide 25.0, Anion Gap 4 L, BUN 10, Creatinine 0.79, Estim Creat Clear Calc 102.32, Est GFR (MDRD) Af Amer 126, Est GFR (MDRD) Non-Af 104, BUN/Creatinine Ratio 12.6, Glucose 89, Calcium 8.5, Prealbumin 9.9 L 11/07/20 06:37: POC Glucose 100 11/07/20 12:02: POC Glucose 169 H Micro: Microbiology 11/02/20 11:35 Blood Culture (Wb) - Anticubital Left Blood Culture - Final No growth in 5 days. 11/06/20 Unknown Tissue - Leg, Left Gram Stain - Final 11/06/20 Unknown Tissue - Leg, Left Wound Culture - Preliminary No growth-Final to follow 11/06/20 Unknown Bone - Leg, Left Gram Stain - Final 11/06/20 Unknown Bone - Leg, Left Wound Culture - Preliminary No growth-Final to follow 11/02/20 11:25 Blood Culture (Wb) - Right Hand Blood Culture - Final No growth in 5 days. 11/06/20 08:50 Mucosa - Nose SARS-CoV-2 Antigen (Rapid) - Final 11/02/20 11:35 Wound - Leg, Left Gram Stain - Final 11/02/20 11:35 Wound - Leg, Left Wound Culture - Final Staphylococcus aureus Enterobacter cloacae complex Corynebacterium amycolatum Physical Exam Const oriented x3 and no apparent distress HEENT normocephalic Resp normal respiratory effort Cardio regular rate GI soft to palpation and non-tender Extremity Extremity Narrative: Left BKA stump wound is stable with no active bleeding. Wound VAC dressing placed today. 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 Left BKA stump wound is stable. No active bleeding. Wound nurse pictures reviewed. Wound VAC dressing placed today at 150 mmHg. Operative cultures are pending. He is on Zosyn IV. Prealbumin 9.9. Encouraged protein supplementation to help with wound healing. He will follow up at the wound center after discharge. He is currently homeless. He is not able to live in his van with a wound VAC.
[2020-11-07 14:00] VITALS: BP 113/67; PULSE 58; RESP 16; TEMP 36.9; O2SAT 98
--- NOTE | 2020-11-07 14:19 | CASEMGMT ---
Addendum entered by Glendy Maher 11/07/20 15:41: SW received message from Tressa at [facility] stating they are able to accept pt and will submit for pre-cert. Plan: [facility] pending pre-cert Original Note: Social Work Note SW placed a call to Tressa at [facility] and left message regarding referral. Plan: [facility] pending acceptance and pre-cert Glendy Maher ELECTRICAL MANUFACTURING ENGINEER, SALVAGE DIVER
[2020-11-07 17:10] LABS: Bedside Glucose 95 mg/dL (70-110)
[2020-11-07 21:45] VITALS: BP 126/73; PULSE 62; RESP 16; TEMP 36.6; O2SAT 97
[2020-11-07] MEDS: Temazepam 15 MG Capsule PO (21:54)
[2020-11-07 21:55] VITALS: PULSE 62
[2020-11-07 21:55] LABS: Bedside Glucose 86 mg/dL (70-110)
[2020-11-07] MEDS: Metoprolol Tartrate 25 MG Tablet PO (21:55)
[2020-11-07] MEDS: Atorvastatin Calcium 40 MG Tablet PO (21:55)
[2020-11-08 02:45] VITALS: BP 122/71; PULSE 52; RESP 15; TEMP 36.5; O2SAT 97
[2020-11-08 05:53] LABS: Absolute Lymphocyte Count 1.83 X10^3/uL (0.83-4.51); Absolute Neutrophil Count 3.4 X10^3/uL (2.0-7.7); Basophil% 1.5 % (0-1); Eosinophil# 0.48 X10^3/uL; Eosinophils% 7.3 % (0-5); Hematocrit 38.6 % (40-54); Hemoglobin 11.8 g/dL (13.0-16.5); Lymphocyte # 1.83 X10^3/ul (0.83-4.51); Lymphocyte % 27.9 % (19-41); Mean Corp Hgb Conc 30.6 g/dL (32-36); Mean Corpuscular Volume 81.8 fL (80-94); Mean Platelet Vol. 10.2 fl (6.2-12.0); Monocyte# 0.78 X10^3/uL; Monocyte% 11.9 % (0-10); NRBC Flagged by Analyzer 0 % (0-5); Neutrophil # 3.36 X10^3/uL (2.7-7.7); Neutrophil % 51.1 % (47-70); Platelet Count 283 K/mm3 (150-450); RBC Distribution Width CV 18.4 % (11.6-14.6); RBC Distribution Width SD 55.1 fl (35.1-43.9); Red Blood Count 4.72 M/mm3 (4.6-6.2); White Blood Count 6.6 K/mm3 (4.4-11.0)
[2020-11-08] MEDS: Levothyroxine 75 MCG Tablet PO (05:54)
[2020-11-08 06:06] LABS: Bedside Glucose 113 mg/dL (70-110)
[2020-11-08 06:20] LABS: Anion Gap 4 (5-15); BUN 13 mg/dL (7-18); BUN/Creat Ratio 15.2 RATIO (10-20); Calcium,Total 8.9 mg/dL (8.5-10.1); Chloride 108 mmol/L (98-107); Creatinine, Serum 0.86 mg/dL (0.70-1.30); EST Glomerular Filtration Rate 95 mL/min (>60); Est Glom Filt Rate - Afr Amer 115 mL/min (>60); Estimated Creatinine Clearance 93.99 ml/min; Glucose 89 mg/dL (74-106); Potassium 4.2 mmol/L (3.5-5.1); Sodium Level 138 mmol/L (136-145)
[2020-11-08 07:58] VITALS: BP 139/78; PULSE 54; RESP 14; TEMP 36.3; O2SAT 99
[2020-11-08 07:59] VITALS: PULSE 54
[2020-11-08] MEDS: Famotidine 20 MG Tablet PO ×2 (08:00→23:17)
[2020-11-08] MEDS: Doxycycline 100 MG CAPSULE PO ×2 (08:00→23:16)
[2020-11-08] MEDS: Potassium Chloride Oral Tablet 20 MEQ PO ×2 (08:00→16:27)
[2020-11-08] MEDS: Gabapentin 800 MG Tablet PO ×3 (08:00→16:27)
[2020-11-08] MEDS: oxyCODONE 5 MG Tablet PO ×3 (08:06→23:16)
[2020-11-08] MEDS: DULoxetine Hcl 30 MG Capsule PO (08:07)
[2020-11-08] MEDS: Acetaminophen 325 MG Tablet 650 MG PO ×2 (08:07→18:40)
--- NOTE | 2020-11-08 09:27 | PCM.PN.HOSP ---
Subjective Subjective Some pain in his surgical stump. Denies other complaints. Objective Data Objective Data Vital Signs: Vital Signs Temp Pulse Resp BP Pulse Ox 36.3 C L 54 L 14 139/78 H 99 11/08/20 07:58 11/08/20 07:59 11/08/20 07:58 11/08/20 07:58 11/08/20 07:58 Oxygen Delivery Method Room Air Weight: 82.8 kg Body Mass Index (BMI) 24.0 Intake & Output: Intake and Output for Last 24 Hours 11/06/20 11/07/20 11/08/20 23:59 23:59 23:59 Intake Total 2589.08 / 2989.08 3125 / 3125 450 / 450 Output Total 2100 / 2750 3650 / 3650 1325 / 1325 Balance 489.08 / 239.08 -525 / -525 -875 / -875 Medical Nutrition Assessment Dietitian: Malnutrition Criteria Met Start: 11/03/20 10:46 Freq: Status: Active Protocol: Document 11/03/20 11:02 [facility] (Rec: 11/03/20 11:02 [facility] [id number]) Nutrition Malnutrition Evidence of Malnutrition Exists No Intake Problem Increased Nutrient Needs (specify) Etiology (protein) related to stasis ulcer to L BKA Signs/Symptoms as evidenced by open area w/ drainage Status Active Problem Recommendation Dietitian Recommendations/Changes As medically able, rec diet as tolerated to liberal Regular When medically able, rec ensure enlive 4x/day w/ medpass for increased nutrition if consumed (to help w/ skin healing) Lab / Micro Data Result Diagrams: 11/08/20 05:40 11/08/20 05:40 Labs: Laboratory Results - last 24 hr 11/07/20 12:02: POC Glucose 169 H 11/07/20 17:02: POC Glucose 95 11/07/20 21:48: POC Glucose 86 11/08/20 05:40: WBC 6.6, RBC 4.72, Hgb 11.8 L, Hct 38.6 L, MCV 81.8, MCH 25.0 L, MCHC 30.6 L, RDW Std Deviation 55.1 H, RDW Coeff of Jesus 18.4 H, Plt Count 283, MPV 10.2, Immature Gran % (Auto) 0.300, Neut % (Auto) 51.1, Lymph % (Auto) 27.9, [place] % (Auto) 11.9 H, Eos % (Auto) 7.3 H, Baso % (Auto) 1.5 H, Absolute Neuts (auto) 3.4, Absolute Lymphs (auto) 1.83, Nucleated RBC % 0 11/08/20 05:40: Sodium 138, Potassium 4.2, Chloride 108 H, Carbon Dioxide 26.0, Anion Gap 4 L, BUN 13, Creatinine 0.86, Estim Creat Clear Calc 93.99, Est GFR (MDRD) Af Amer 115, Est GFR (MDRD) Non-Af 95, BUN/Creatinine Ratio 15.2, Glucose 89, Calcium 8.9 11/08/20 05:58: POC Glucose 113 H Micro: Microbiology 11/06/20 Unknown Tissue - Leg, Left Gram Stain - Final 11/06/20 Unknown Tissue - Leg, Left Wound Culture - Preliminary No growth-Final to follow 11/06/20 Unknown Tissue - Leg, Left Anaerobic Culture - Preliminary Checking for anaerobes, further studies to follow. 11/06/20 Unknown Bone - Leg, Left Gram Stain - Final 11/06/20 Unknown Bone - Leg, Left Wound Culture - Preliminary No growth-Final to follow 11/06/20 Unknown Bone - Leg, Left Anaerobic Culture - Preliminary No growth in 48 hours. 11/02/20 11:35 Blood Culture (Wb) - Anticubital Left Blood Culture - Final No growth in 5 days. 11/02/20 11:25 Blood Culture (Wb) - Right Hand Blood Culture - Final No growth in 5 days. 11/06/20 08:50 Mucosa - Nose SARS-CoV-2 Antigen (Rapid) - Final 11/02/20 11:35 Wound - Leg, Left Gram Stain - Final 11/02/20 11:35 Wound - Leg, Left Wound Culture - Final Staphylococcus aureus Enterobacter cloacae complex Corynebacterium amycolatum Physical Exam Const alert Cardio regular rate, regular rhythm, S1 normal heart sound and S2 normal heart sound GI normal to inspection, nondistended, normoactive bowel sounds, soft to palpation, non-tender and non-distended Extremity normal to inspection Assessment & Plan Assessment/Plan (1) Wound infection: (2) Osteomyelitis: QUALIFIERS: Osteomyelitis type: other chronic Osteomyelitis location: tibia Laterality: left Qualified Code(s): M86.662 - Other chronic osteomyelitis, left tibia and fibula PLAN: 1. Left tibia osteomyelitis 11/06: Surgical preparation left below knee amputation stump with incision and drainage and excisional debridement with partial ostectomy for osteomyelitis and evacuation hematoma for draining diabetic ulcer abscess. continue with pip/tazo Cx positive for MSSA, Enterobacter cloacae and Corynebacterium ID recommending 6 weeks of IV pip/tazo and PO doxy (stop date 12/18) 2. Left stump soft tissue wound and abscess as above 3. DM2 fair control complicates care and recovery 4. VTE prophylaxis: SQ heparin 5. Discharge planning: to [facility]. Precert submitted 11/07. Charges/Coding Visit Charges Inpatient E&M: 82802 Subs Hosp L2
--- NOTE | 2020-11-08 10:08 | CASEMGMT ---
As per RN, pt is now stating does not want to go to [facility] but rather a different facility. SW met w/pt, pt is now stating wants to go to [facility]. SW explained to pt that the precert was already started w/[facility] and it will take longer if we need to start over with insurance and [facility]. Pt again states wants to go to [place] as it's nearer to where his daughter lives. SW explained will start the process and let him know. CARLTON called [facility], let Darcy know that we may be asking to cancel the precert as pt has changed his mind, but will let her know for certain later today. SW then called [facility], spoke w/Kirti, she will review the referral and let SW know if they can take pt. Once Kirti from [facility] lets SW know, SW will ask [facility] to cancel precert so [facility] can start it. Referral faxed. SW will continue to follow. LEONID Galan
[2020-11-08] MEDS: 0.9% Saline Lock 10 ML Syringe IV (11:20)
[2020-11-08] MEDS: Morphine 4 MG/ML Syringe IV (11:20)
[2020-11-08 11:21] LABS: Bedside Glucose 123 mg/dL (70-110)
--- NOTE | 2020-11-08 12:57 | PCM.PN.SRG ---
Subjective Subjective Postop #2 Patient is resting in bed. States pain is well controlled. Objective Data Objective Data Vital Signs: Vital Signs Temp Pulse Resp BP Pulse Ox 97.4 F L 50 L 14 104/60 99 11/08/20 13:33 11/08/20 13:33 11/08/20 13:33 11/08/20 13:33 11/08/20 13:33 Oxygen Delivery Method Room Air Weight: 182 lb 8.684 oz Body Mass Index (BMI) 24.0 Intake & Output: Intake and Output for Last 24 Hours 11/06/20 11/07/20 11/08/20 23:59 23:59 23:59 Intake Total 2589.08 / 2989.08 3125 / 3125 1433 / 1433 Output Total 2100 / 2750 3650 / 3650 2225 / 2225 Balance 489.08 / 239.08 -525 / -525 -792 / -792 Medical Nutrition Assessment Dietitian: Malnutrition Criteria Met Start: 11/03/20 10:46 Freq: Status: Active Protocol: Document 11/03/20 11:02 [facility] (Rec: 11/03/20 11:02 [facility] [id number]) Nutrition Malnutrition Evidence of Malnutrition Exists No Intake Problem Increased Nutrient Needs (specify) Etiology (protein) related to stasis ulcer to L BKA Signs/Symptoms as evidenced by open area w/ drainage Status Active Problem Recommendation Dietitian Recommendations/Changes As medically able, rec diet as tolerated to liberal Regular When medically able, rec ensure enlive 4x/day w/ medpass for increased nutrition if consumed (to help w/ skin healing) Lab / Micro Data Result Diagrams: 11/08/20 05:40 11/08/20 05:40 Labs: Laboratory Results - last 24 hr 11/07/20 17:02: POC Glucose 95 11/07/20 21:48: POC Glucose 86 11/08/20 05:40: WBC 6.6, RBC 4.72, Hgb 11.8 L, Hct 38.6 L, MCV 81.8, MCH 25.0 L, MCHC 30.6 L, RDW Std Deviation 55.1 H, RDW Coeff of Jesus 18.4 H, Plt Count 283, MPV 10.2, Immature Gran % (Auto) 0.300, Neut % (Auto) 51.1, Lymph % (Auto) 27.9, [place] % (Auto) 11.9 H, Eos % (Auto) 7.3 H, Baso % (Auto) 1.5 H, Absolute Neuts (auto) 3.4, Absolute Lymphs (auto) 1.83, Nucleated RBC % 0 11/08/20 05:40: Sodium 138, Potassium 4.2, Chloride 108 H, Carbon Dioxide 26.0, Anion Gap 4 L, BUN 13, Creatinine 0.86, Estim Creat Clear Calc 93.99, Est GFR (MDRD) Af Amer 115, Est GFR (MDRD) Non-Af 95, BUN/Creatinine Ratio 15.2, Glucose 89, Calcium 8.9 11/08/20 05:58: POC Glucose 113 H 11/08/20 11:10: POC Glucose 123 H 11/08/20 16:25: POC Glucose 77 Micro: Microbiology 11/06/20 Unknown Tissue - Leg, Left Gram Stain - Final 11/06/20 Unknown Tissue - Leg, Left Wound Culture - Preliminary No growth-Final to follow 11/06/20 Unknown Tissue - Leg, Left Anaerobic Culture - Preliminary Checking for anaerobes, further studies to follow. 11/06/20 Unknown Bone - Leg, Left Gram Stain - Final 11/06/20 Unknown Bone - Leg, Left Wound Culture - Preliminary No growth-Final to follow 11/06/20 Unknown Bone - Leg, Left Anaerobic Culture - Preliminary No growth in 48 hours. 11/02/20 11:35 Blood Culture (Wb) - Anticubital Left Blood Culture - Final No growth in 5 days. 11/02/20 11:25 Blood Culture (Wb) - Right Hand Blood Culture - Final No growth in 5 days. 11/06/20 08:50 Mucosa - Nose SARS-CoV-2 Antigen (Rapid) - Final 11/02/20 11:35 Wound - Leg, Left Gram Stain - Final 11/02/20 11:35 Wound - Leg, Left Wound Culture - Final Staphylococcus aureus Enterobacter cloacae complex Corynebacterium amycolatum Physical Exam Const oriented x3 and no apparent distress Resp normal respiratory effort Cardio regular rate GI soft to palpation Extremity Extremity Narrative: Left BKA stump wound is stable with no active bleeding. Wound VAC dressing intact. 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 Left BKA stump wound is stable. No active bleeding. Wound nurse pictures reviewed. Wound VAC dressing placed today at 150 mmHg. Operative cultures are pending. He is on Zosyn IV. Prealbumin 9.9 yesterday. Encouraged protein supplementation to help with wound healing. He will follow up at the wound center after discharge. He is currently homeless. Looking for placement after discharge due to wound care.
[2020-11-08] MEDS: Lactated Ringers 1,000 ML 60 ML IV (13:31)
[2020-11-08 13:33] VITALS: BP 104/60; PULSE 50; RESP 14; TEMP 36.3; O2SAT 99
--- NOTE | 2020-11-08 13:48 | CASEMGMT ---
Addendum entered by Glendy Maher 11/08/20 15:48: CARLTON received call from Kirti at [facility] stating they tried to submit for pre-cert but pre-cert is showing still pending for other SNF, [facility] unable to submit for pre-cert. CARLTON informed Kirti that this worker did tell other SNF to cancel Pre-cert, will call other SNF again. CARLTON placed a call to [facility] and spoke with Darcy in admissions. Darcy states received message earlier and told business office to cancel pre-cert. CARLTON placed a call to Kirti at [facility] and updated her that other SNF should be cancelling pre-cert. Plan: [facility] pending pre-cert Addendum entered by Glendy Maher 11/08/20 14:43: CARLTON updated pt on acceptance to [facility] pending pre-cert. Pt states understanding. Original Note: Social Work Note CARLTON placed a call to Kirti at [facility]. Kirti states they are able to accept pt and will submit for pre-cert. CARLTON placed a call to [facility] and left message for admissions to cancel pre-cert. Plan: [facility] pending pre-cert Glendy Maher DATA SPECIALIST, HEALTH AND SAFETY MANAGER
[2020-11-08 16:35] LABS: Bedside Glucose 77 mg/dL (70-110)
[2020-11-08 23:10] VITALS: BP 130/69; PULSE 49; RESP 15; TEMP 36.5; O2SAT 95
[2020-11-08 23:16] LABS: Bedside Glucose 92 mg/dL (70-110)
[2020-11-08] MEDS: Temazepam 15 MG Capsule PO (23:16)
[2020-11-08] MEDS: Atorvastatin Calcium 40 MG Tablet PO (23:16)
[2020-11-08 23:17] VITALS: PULSE 49
[2020-11-09 02:51] VITALS: BP 117/68; PULSE 48; RESP 16; TEMP 36.5; O2SAT 97
[2020-11-09] MEDS: Acetaminophen 325 MG Tablet 650 MG PO (06:14)
[2020-11-09] MEDS: oxyCODONE 5 MG Tablet PO ×3 (06:14→16:57)
[2020-11-09] MEDS: Levothyroxine 75 MCG Tablet PO (06:15)
[2020-11-09] MEDS: Lactated Ringers 1,000 ML 60 ML IV (06:25)
[2020-11-09 06:26] LABS: Bedside Glucose 93 mg/dL (70-110)
--- NOTE | 2020-11-09 08:19 | NURSING ---
Plan to change wound VAC dressing tomorrow. pt is pending precert to [facility].
[2020-11-09 08:43] VITALS: BP 118/71; PULSE 56; RESP 18; TEMP 36.6; O2SAT 97
[2020-11-09] MEDS: Potassium Chloride Oral Tablet 20 MEQ PO ×2 (08:48→16:57)
[2020-11-09] MEDS: Doxycycline 100 MG CAPSULE PO (08:48)
[2020-11-09] MEDS: DULoxetine Hcl 30 MG Capsule PO (08:48)
[2020-11-09] MEDS: Gabapentin 800 MG Tablet PO ×3 (08:48→16:57)
[2020-11-09] MEDS: Famotidine 20 MG Tablet PO (08:48)
[2020-11-09 08:49] VITALS: PULSE 56
[2020-11-09] MEDS: Insulin Lispro 100 UNIT/ML INSULN.PEN SC (11:15)
[2020-11-09 11:36] LABS: Bedside Glucose 150 mg/dL (70-110)
--- NOTE | 2020-11-09 12:00 | CASEMGMT ---
Social Work Note SW received message from Kirti at [facility] stating pre-cert was obtained and pt can discharge to [facility] today. Kirti states pt will need another COVID test. Physician updated. SW to fax discharge paperwork once completed. Plan: [facility] today Glendy Maher VARNISH DIPPER, HOOKMAN
--- NOTE | 2020-11-09 13:42 | PCM.TXEXTCAR ---
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: Chronic (3) Fall (on)(from) sidewalk curb, initial encounter: Status: Acute (4) Status post below-knee amputation of left lower extremity: Status: Chronic (5) Infection of left below knee amputation: Status: Acute (6) Homelessness: Status: Chronic (7) Non-pressure ulcer of stump of below knee amputation of left lower extremity with fat layer exposed: Status: Acute (8) 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 (9) Type 2 diabetes mellitus: Status: Chronic Allergies/Procedures Done in Hospital Allergies colesevelam HCl [From WelChol] Allergy (Verified 11/02/20 12:14) Rash dicyclomine Allergy (Verified 11/02/20 12:14) Rash divalproex sodium [From Depakote] Allergy (Verified 11/02/20 12:14) Unknown rofecoxib [From Vioxx] Allergy (Verified 11/02/20 12:14) Rash vancomycin Adverse Reaction (Verified 11/02/20 12:14) Rash Type of Care/Length of Stay Estimated LOS: Convalescent Care Less Than 30 days Type of Care Needed: Skilled Rehab Potential: Fair Prognosis: Fair Additional Orders/Day of Discharge Day of Discharge: 11/09/20 Dietary and Speech Recommendations Dietitian Recommendations/Changes: As medically able, rec diet as tolerated to liberal Regular When medically able, rec ensure enlive 4x/day w/ medpass for increased nutrition if consumed (to help w/ skin healing) When medically able, rec Robert bid to help w/ wound healing. Discharge Plan Admission Admit Date/Time: 11/02/20 14:22 Primary Reason for Your Visit: osteomyelitis Attending Provider: Vinicio Sanchez Primary Care Provider: Clement Buckner Consulting Providers: Daniel Almendarez ; Dionte Plata Discharge Orders/Prescriptions Prescriptions: New Zosyn in dextrose (iso-osm) 3.375 gram/50 mL piggyback 3.375 g IV Q8H 39 Days Qty: 117 RF: 0 doxycycline hyclate 100 mg capsule 100 mg PO BID Qty: 80 RF: 0 acetaminophen [Tylenol] 325 mg Tablet 650 mg PO Q6H PRN PRN (Reason: Pain Score 1-10/Temp > 100.7 F) Qty: 0 RF: 0 oxycodone 5 mg Tablet 5 mg PO Q6H PRN (Reason: pain (scale score 7-10)) 3 Days Qty: 12 RF: 0 Continued levothyroxine 75 MCG tablet 75 mcg PO DAILY RF: 0 rosuvastatin 20 MG tablet 20 mg PO DAILY RF: 0 duloxetine 30 MG capsule,delayed release(DR/EC) 30 mg PO DAILY RF: 0 metoprolol tartrate 25 MG tablet 25 mg PO BID RF: 0 gabapentin 800 MG tablet 800 mg PO TIDCM Qty: 30 RF: 0 nitroglycerin 0.4 mg tablet, sublingual 0.4 mg sublingual Q5M PRN (Reason: Chest Pain) RF: 0 Referrals / Follow Up: Clement Buckner MD [Primary Care Provider] - Within 2 Weeks Dionte Plata MD [STAFF PHYSICIAN] - Within 2 Weeks Disposition Disposition (needs filled in before D/C Order can be placed): Shelter Facility
--- NOTE | 2020-11-09 13:48 | PCM.DC.SUM ---
Providers Date of Admission: 11/02/20 Primary Care Physician: Dr. Clement Buckner MD Consultations 11/02/20 15:21 Consult: Plastic Surgery Routine Consulting Provider: Dionte Plata Reason for Consult: Infected L BKA EMERGENT Consult: No Notified: Yes Date Notified: 11/02/20 Time Notified: 14:21 Method of Notification: called per ED 11/03/20 00:50 Consult: Onc/Wound/senior quality assurance analyst Routine Comment: Reason for Consult:: Amputation stump wound 11/03/20 10:46 Consult: Infectious Disease Routine Consulting Provider: Daniel Almendarez Reason for Consult: Left BKA infection EMERGENT Consult: No Notified: Yes Date Notified: 11/03/20 Time Notified: 10:47 Method of Notification: Text Reason For Visit: DIABETIC L BKA WOUND Diagnosis Discharge Diagnosis (1) Hematoma of amputation stump of left lower extremity: Status: Acute Code(s): T87.89 - Other complications of amputation stump (2) 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: Chronic Code(s): E11.622 - Type 2 diabetes mellitus with other skin ulcer; L97.909 - Non-pressure chronic ulcer of unspecified part of unspecified lower leg with unspecified severity (3) Fall (on)(from) sidewalk curb, initial encounter: Status: Acute Code(s): W10.1XXA - Fall (on)(from) sidewalk curb, initial encounter (4) Status post below-knee amputation of left lower extremity: Status: Chronic Code(s): Z89.512 - Acquired absence of left leg below knee (5) Infection of left below knee amputation: Status: Acute Code(s): T87.44 - Infection of amputation stump, left lower extremity (6) Homelessness: Status: Chronic Code(s): Z59.0 - Homelessness (7) Non-pressure ulcer of stump of below knee amputation of left lower extremity with fat layer exposed: Status: Acute Code(s): T87.89 - Other complications of amputation stump; L97.922 - Non-pressure chronic ulcer of unspecified part of left lower leg with fat layer exposed (8) 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 Code(s): Z86.14 - Personal history of Methicillin resistant Staphylococcus aureus infection (9) Type 2 diabetes mellitus: Status: Chronic Code(s): E11.9 - Type 2 diabetes mellitus without complications Medications at Discharge Home Medications levothyroxine 75 mcg PO DAILY 09/01/13 duloxetine 30 mg PO DAILY 07/07/19 rosuvastatin 20 mg PO DAILY 07/07/19 metoprolol tartrate 25 mg PO BID 11/23/19 gabapentin 800 mg PO TIDCM #30 tab 04/19/20 nitroglycerin 0.4 mg SUBLINGUAL Q5M PRN 11/02/20 doxycycline hyclate 100 mg PO BID #80 cap 11/07/20 [id number] [Zosyn in dextrose (iso-osm)] 3.375 g IV Q8H 39 Days #117 bag 11/07/20 acetaminophen [Tylenol] 650 mg PO Q6H PRN PRN #0 tab 11/09/20 oxycodone 5 mg PO Q6H PRN 3 Days #12 tab 11/09/20 Hospital Course Operations - (Surgical preparation left below knee amputation stump with incision and drainage and excisional debridement with partial ostectomy tibia for osteomyelitis and evacuation hematoma for draining diabetic ulcer abscess.) Procedures PICC line placement Summary of Care Provided Minutes Spent on Discharge: 32 Hospital Course: 64-year-old male presents with cellulitis of the left lower extremity. 1. Left tibia osteomyelitis 11/06: Surgical preparation left below knee amputation stump with incision and drainage and excisional debridement with partial ostectomy for osteomyelitis and evacuation hematoma for draining diabetic ulcer abscess. continue with pip/tazo Cx positive for MSSA, Enterobacter cloacae and Corynebacterium ID recommending 6 weeks of IV pip/tazo and PO doxy (stop date 12/18) 2. Left stump soft tissue wound and abscess as above Physical Exam Const alert General Appearance: cooperative Resp normal respiratory effort, no retractions, no use of accessory muscles and clear to auscultation bilaterally Cardio regular rate, regular rhythm, S1 normal heart sound and S2 normal heart sound GI normal to inspection, nondistended, normoactive bowel sounds, soft to palpation, non-tender and non-distended Extremity normal to inspection, full ROM and no clubbing, cyanosis or edema Medical Records Data Medical Nutrition Assessment Dietitian: Malnutrition Criteria Met Start: 11/03/20 10:46 Freq: Status: Active Protocol: Document 11/03/20 11:[address] [facility] (Rec: 11/03/20 11:[address] [facility] [id number]) Nutrition Malnutrition Evidence of Malnutrition Exists No Intake Problem Increased Nutrient Needs (specify) Etiology (protein) related to stasis ulcer to L BKA Signs/Symptoms as evidenced by open area w/ drainage Status Active Problem Recommendation Dietitian Recommendations/Changes As medically able, rec diet as tolerated to liberal Regular When medically able, rec ensure enlive 4x/day w/ medpass for increased nutrition if consumed (to help w/ skin healing) Weight / BMI Weight Weight: 82.554 kg Body Mass Index (BMI) 24.0 ABG / Lab / Microbiology Data Result Diagrams: 11/08/20 05:40 11/08/20 05:40 Laboratory: Laboratory Results - last 24 hr 11/08/20 16:25: POC Glucose 77 11/08/20 23:11: POC Glucose 92 11/09/20 06:20: POC Glucose 93 11/09/20 11:13: POC Glucose 150 H Microbiology: Microbiology 11/06/20 Unknown Bone - Leg, Left Gram Stain - Final 11/06/20 Unknown Bone - Leg, Left Wound Culture - Final No growth aerobically. 11/06/20 Unknown Bone - Leg, Left Anaerobic Culture - Final No anaerobic bacteria isolated. 11/06/20 Unknown Tissue - Leg, Left Gram Stain - Final 11/06/20 Unknown Tissue - Leg, Left Wound Culture - Final No growth aerobically. 11/06/20 Unknown Tissue - Leg, Left Anaerobic Culture - Final No anaerobic bacteria isolated. 11/02/20 11:35 Blood Culture (Wb) - Anticubital Left Blood Culture - Final No growth in 5 days. 11/02/20 11:25 Blood Culture (Wb) - Right Hand Blood Culture - Final No growth in 5 days. 11/06/20 08:50 Mucosa - Nose SARS-CoV-2 Antigen (Rapid) - Final 11/02/20 11:35 Wound - Leg, Left Gram Stain - Final 11/02/20 11:35 Wound - Leg, Left Wound Culture - Final Staphylococcus aureus Enterobacter cloacae complex Corynebacterium amycolatum Meaningful Use Info Meaningful Use Diagnoses (Choose all that apply): None applicable Discharge Plan Admission Admit Date/Time: 11/02/20 14:22 Primary Reason for Your Visit: osteomyelitis Attending Provider: Vinicio Sanchez Primary Care Provider: Clement Buckner Consulting Providers: Daniel Almendarez ; Dionte Plata Discharge Orders/Prescriptions Prescriptions: New Zosyn in dextrose (iso-osm) 3.375 gram/50 mL piggyback 3.375 g IV Q8H 39 Days Qty: 117 RF: 0 doxycycline hyclate 100 mg capsule 100 mg PO BID Qty: 80 RF: 0 acetaminophen [Tylenol] 325 mg Tablet 650 mg PO Q6H PRN PRN (Reason: Pain Score 1-10/Temp > 100.7 F) Qty: 0 RF: 0 oxycodone 5 mg Tablet 5 mg PO Q6H PRN (Reason: pain (scale score 7-10)) 3 Days Qty: 12 RF: 0 Continued levothyroxine 75 MCG tablet 75 mcg PO DAILY RF: 0 rosuvastatin 20 MG tablet 20 mg PO DAILY RF: 0 duloxetine 30 MG capsule,delayed release(DR/EC) 30 mg PO DAILY RF: 0 metoprolol tartrate 25 MG tablet 25 mg PO BID RF: 0 gabapentin 800 MG tablet 800 mg PO TIDCM Qty: 30 RF: 0 nitroglycerin 0.4 mg tablet, sublingual 0.4 mg sublingual Q5M PRN (Reason: Chest Pain) RF: 0 Referrals / Follow Up: Clement Buckner MD [Primary Care Provider] - Within 2 Weeks Dionte Plata MD [STAFF PHYSICIAN] - Within 2 Weeks Disposition Disposition (needs filled in before D/C Order can be placed): [facility] Facility Charges/Coding Visit Charges Inpatient E&M: 92134 Disch Hosp
[2020-11-09 13:53] VITALS: BP 125/71; PULSE 65; RESP 16; TEMP 36.4; O2SAT 100
--- NOTE | 2020-11-09 14:52 | PCM.DC ---
Discharge Instructions Diet Discharge Diet: No restrictions (High protein diet with protein supplementation for wound healing) and - Activity Discharge Activity: May Shower (May get into the shower on the days that wound VAC dressing is changed. Remove VAC dressing and get into the shower, wash stump with soap and water.) Dressing / Incision Call your doctor if your incision/area has: Continuous Slow Oozing, Sudden Increased Bleeding, Increased Pain/ Swelling, Increased Redness, Foul Smelling Discharge and Swelling at the incision site Call your doctor if you observe: Fever of 101 or Higher, Coldness, Increased Pain, Shortness of breath, Chest pain and Uncontrolled pain Cleanse incision/area with: Soap & Water Additional Dressing/Incision Instructions:: Wash left BKA stump ulcer with soap and water with wound VAC changes 3 times per week. Wound VAC to 150 mmHg. Wound VAC dressing changes 3 times per week. Follow Up Care Please Follow Up With: Sherly Etienne CNP [facility] Please call for an appointment [phone] Test Results: Test results from this visit will be discussed in further detail at your follow-up appointment, if applicable. Discharge Plan Admission Admit Date/Time: 11/02/20 14:22 Primary Reason for Your Visit: osteomyelitis Attending Provider: Vinicio Sanchez Primary Care Provider: Clement Buckner Consulting Providers: Daniel Almendarez ; Dionte Plata Discharge Orders/Prescriptions Prescriptions: New Zosyn in dextrose (iso-osm) 3.375 gram/50 mL piggyback 3.375 g IV Q8H 39 Days Qty: 117 RF: 0 doxycycline hyclate 100 mg capsule 100 mg PO BID Qty: 80 RF: 0 acetaminophen [Tylenol] 325 mg Tablet 650 mg PO Q6H PRN PRN (Reason: Pain Score 1-10/Temp > 100.7 F) Qty: 0 RF: 0 oxycodone 5 mg Tablet 5 mg PO Q6H PRN (Reason: pain (scale score 7-10)) 3 Days Qty: 12 RF: 0 Continued levothyroxine 75 MCG tablet 75 mcg PO DAILY RF: 0 rosuvastatin 20 MG tablet 20 mg PO DAILY RF: 0 duloxetine 30 MG capsule,delayed release(DR/EC) 30 mg PO DAILY RF: 0 metoprolol tartrate 25 MG tablet 25 mg PO BID RF: 0 gabapentin 800 MG tablet 800 mg PO TIDCM Qty: 30 RF: 0 nitroglycerin 0.4 mg tablet, sublingual 0.4 mg sublingual Q5M PRN (Reason: Chest Pain) RF: 0 Referrals / Follow Up: Clement Buckner MD [Primary Care Provider] - Within 2 Weeks Dionte Plata MD [STAFF PHYSICIAN] - Within 2 Weeks Disposition Disposition (needs filled in before D/C Order can be placed): [facility] Facility
--- NOTE | 2020-11-09 15:01 | NURSING ---
Pt due for 2nd dose of covid pfizer vaccine on this date. Dr. Sanchez gave approval to give this to pt prior to discharge. Per Stanton in pharmacy, we are unable to provide 2nd Pfizer vaccines to inpatients at this time.
--- NOTE | 2020-11-09 15:30 | CASEMGMT ---
Social Work Note CARLTON updated that pt is inquiring if his daughter can transport pt to SNF. CARLTON placed a call to Kirti at [employer] and asked about pt's daughter transporting pt. Kirti states she is not sure if they are allowing family to transport due to COVID and asked which daughter as one of them works at [employer]. CARLTON informed Kirti that this worker will check with pt. SW in to speak with pt. Pt confirms that he would like his daughter Laurence, who works at [employer], to transport pt. Pt states he would like to call his daughter though to make sure she is able to transport. SW encouraged pt to call Laurence and this worker will check back in with pt. SW back in to speak with pt. Pt states to have this worker arrange transportation for him. SW informed pt that this worker will do so. CARLTON faxed completed discharge paperwork to [employer] including transfer to extended care facility, signed medication list, any scripts, HENS, COVID test/ tool. Original in SNF folder and copy on pt's chart. CARLTON completed convalescent 7000 in HENS. Original in SNF folder and copy on pt's chart. CARLTON spoke with RN, pt can transport via wheelchair van. CARLTON arranged transportation via wheelchair van for 6:30pm as this is the earliest time Physician[facility] can transport pt. Transportation form completed and placed on SNF folder and copy on pt's chart. CARLTON updated RN on transportation time, asked RN to update pt. RN to do so. CARLTON placed a call to Kirti at [employer] and updated her on transportation time. Plan: [employer] skilled today with physician's transporting pt via wheelchair van at 6:30pm Glendy Maher LAB ENGINEER, RECORDING ARTIST
[2020-11-09 17:15] LABS: Bedside Glucose 96 mg/dL (70-110)
[2020-11-09 18:23] VITALS: BP 140/60; PULSE 52; RESP 18; TEMP 36.7; O2SAT 100
[2020-11-09] MEDS: 0.9% Saline Lock 10 ML Syringe IV (18:40)
--- NOTE | 2020-11-09 18:53 | NURSING ---
Report given to ISHA Williamson at [facility]. Pt transport to [facility] via [facility]
== END 2020-11-09 18:52 | disposition skilled nursing facility (03) | DRG 982 ==
LOC: ED 14:13 → MS3 14:57
PROVIDERS: Anesthesiology; Internal Medicine; Surgery; Admitting Provider Family Medicine; Emergency Provider Emergency Medicine; PCP Family Medicine
PROC: 0QBH0ZZ Excision of Left Tibia, Open Approach (ICD-10-PCS; principal; 2020-11-06 07:45)
DX: E11.69 Type 2 diabetes mellitus with other specified complication (principal); T87.44 Infection of amputation stump, left lower extremity; M86.662 Other chronic osteomyelitis, left tibia and fibula; L03.116 Cellulitis of left lower limb; L97.822 Non-pressure chronic ulcer of other part of left lower leg with fat layer exposed; L02.416 Cutaneous abscess of left lower limb; E11.622 Type 2 diabetes mellitus with other skin ulcer; F17.210 Nicotine dependence, cigarettes, uncomplicated; Y83.5 Amputation of limb(s) as the cause of abnormal reaction of the patient, or of later complication, without mention of misadventure at the time of the procedure; I10 Essential (primary) hypertension; E03.9 Hypothyroidism, unspecified; E78.5 Hyperlipidemia, unspecified; K21.9 Gastro-esophageal reflux disease without esophagitis; I25.10 Atherosclerotic heart disease of native coronary artery without angina pectoris; F41.9 Anxiety disorder, unspecified; E11.42 Type 2 diabetes mellitus with diabetic polyneuropathy; F32.9 Major depressive disorder, single episode, unspecified; S80.812A Abrasion, left lower leg, initial encounter; W22.09XA Striking against other stationary object, initial encounter; B95.61 Methicillin susceptible Staphylococcus aureus infection as the cause of diseases classified elsewhere; B96.89 Other specified bacterial agents as the cause of diseases classified elsewhere; Y93.01 Activity, walking, marching and hiking; Y92.9 Unspecified place or not applicable; Z86.14 Personal history of Methicillin resistant Staphylococcus aureus infection; Z59.0 Homelessness; Z79.899 Other long term (current) drug therapy; Z95.1 Presence of aortocoronary bypass graft; Z86.718 Personal history of other venous thrombosis and embolism
CPT/HCPCS: 36415; 36569; 73560; 73723; 80048; 80053; 80202; 82962; 83036; 83605; 83735; 84134; 84443; 85025; 85652; 86140; 87015; 87040; 87070; 87075; 87077; 87102; 87116; 87176; 87186; 87205; 87206; 87426; 87640; 88304; 88305; 88311; 93005; 97161; 97165; 97168; 97802; 99251; 99284; 99406; A9575; J7030; J7040; J7050; J7120; A4216; G0463; J2405

== ENCOUNTER 2020-11-20 13:44 | Outpatient (RCR) | payer MEDICARE, MEDICAID, SELFPAY ==
[2020-11-20 14:09] VITALS: RESP 20; TEMP 36.5
--- NOTE | 2020-11-20 15:13 | PCM.WC.PN ---
History of Present Illness Date of Service: 11/20/20 Chief Complaint: Ulcer on left BKA after I&D of a diabetic abscess/hematoma on 11/06/20 History of Wound: Surgery on 11/06/20 - Surgical preparation left below knee amputation stump with incision and drainage and excisional debridement with partial ostectomy tibia for osteomyelitis and evacuation hematoma for draining diabetic ulcer abscess. (He had his Left BKA on 04/17/20). Operative tissue and bone cultures were negative. Wound cultures from 11/02/20 positive for MSSA, Enterobacter cloacae complex, and Corynebacterium amycolatum. He is at [facility] with PICC line receiving Zosyn IV and Doxycycline po (stop date 12/18/20). Wound care - Wound VAC at 150 mmHg to be changed 3 times per week. Wash ulcer and surrounding skin with soap and water at the time of the wound VAC changes. Prealbumin 9.9 on 11/07/20. Today he denies any fever. He states his appetite is good. Progress of Wound: Left BKA ulcer is stable. Objective Data Objective Data Vital Signs: Vital Signs Temp Resp 97.7 F L 20 H 11/20/20 14:09 11/20/20 14:09 Charges/Coding Procedures Integumentary [id number]: 97100 Global Visit Physical Exam Const alert and oriented x3 General Appearance: cooperative HEENT normocephalic Eyes PERRL Lymph Lymphatic: no lymphedema noted Resp normal respiratory effort Cardio regular rate GI non-tender Palpation: soft Extremity normal capillary refill Skin Wound Narrative: Left BKA anterior stump ulcer is pink. It goes into the muscle and there is bone exposed. Neuro CN's II-XII intact bilaterally Psych Appearance: grossly normal Debridement Note Debridement Note Post-Debridement Measurements and Additional Note: Post-Debridement Measurements/Treatment WC - Nurse 1 - General Ulcer Assessment Start: 11/20/20 14:09 Freq: Status: Active Protocol: ARLETH Activity Type Activity Date Activity User E-Sign Co-Sign Detail Recorded Client Recorded Date Recorded By Document 11/20/20 14:09 DL [id number] 11/20/20 14:19 DL 11/20/20 14:09 - Today's Visit Information Type of service Initial Visit Arrival Mode Wheelchair Transfer Assistance None Patient Identification Verified (Name & Yes ) Patient Requires Transmission-Based No Precautions Finger Stick Blood Sugar(mg/dl) (if not check indicated): Blood Sugar Stated by Patient Vital Signs Temperature (97.8 F-99.1 F) 97.7 F L Temperature Source Temporal Respiratory Rate (12-18) 20 H Respiratory rate source Observation History Since Last Visit- (Skip if this is Patient's initial visit) Have you changed medications since your No last visit? Any new allergies or adverse reactions No Had a fall/change in ADL's that may No increase risk of falls Signs or symptoms of abuse and/or No neglect since last visit Have you been in the hospital since your No last visit? Has dressing in place as prescribed Yes Has compression in place as prescribed N/A Has offloadiing in place as prescribed Yes Experienced any changes in pain level or No management Pain Scale: 0-10 Numeric Is Patient Pain Free? Yes Communication Assessment Preferred language Uzbek Benefits Advisor Required No Able to Read Yes Able to Write No Right Hearing Abillity Normal Left Hearing Abillity Normal Visual Assistive Devices None Teaching Assessment Preferences Verbal,Written, Demonstration Readiness To Learn Good Willingness to Engage in Self Management Med Activies Readiness to Engage in Self Management Med Activities Anxiety Level Calm Cooperation Cooperative Perception Coherent Interest in Health Problem Asks Questions Education Importance Acknowledges Need Does Patient Smoke tobacco or other Yes substances Smoking Status Current every day smoker Is Patient Diabetic Yes Culture/Scientologist/Forward Air Controller/Air Officer Cultural/Scientologist Needs that may affect No Treatment Plan Would you allow our hospital marketing traffic manager to No meet you for the purpose of spiritual/ emotional support? Forward Air Controller/Air Officer to contact place of islam No Teaching: Wound Center Discharge Instructions -Person Taught Patient stump sleeve maker/PT -Person Taught Patient Skin Care -Person Taught Patient *Infection -Person Taught Patient Plan of Care Reviewed with Patient -Person Taught Patient Compression Wraps & Stockings -Person Taught Patient *Nutrition -Person Taught Patient Dressing Your Wound -Person Taught Patient *Welcome to the Wound Center -Person Taught Patient WC - Nurse 1 - General Ulcer Measurement Start: 11/20/20 14:09 Freq: Status: Active Protocol: Activity Type Activity Date Activity User E-Sign Co-Sign Detail Recorded Client Recorded Date Recorded By Document 11/20/20 14:09 DL [id number] 11/20/20 14:19 DL 11/20/20 14:09 Wound Center Nurse 1 #3 L Stump/Post op -Current Size (cm) - Length 6.2 -Current Size (cm) - Width 10.2 -Current Size (cm) - Depth 1.8 -Total Square Cm 63.24 -Photo Taken Yes -Exudate Amt Medium -Exudate Type Serosanguineous -Granulation Amt Medium (34-66%) -Granulation Quality Red -Necrosis Amt Medium (34-66%) -Necrotic Tissue Type Adherent Slough -Structure Exposed N/A -Texture (Yudy-wound Skin Appearance) Scarring -Moisture (Yudy-wound Skin Appearance) No Abnormality -Color (Yudy-wound Skin Appearance) No Abnormality -Temperature (Yudy-wound Skin No Abnormality Appearance) (Pt Warm) -Tenderness on Palpation (Yudy-wound No Skin Appearance) -Ulcer Cleansing Wound Cleanser -Foul Odor after Cleansing No -Anesthetic Used 4% Lidocaine Solution WC - Nurse 2 - General Ulcer CM Notes Start: 11/20/20 14:09 Freq: Status: Active Protocol: Activity Type Activity Date Activity User E-Sign Co-Sign Detail Recorded Client Recorded Date Recorded By Document 11/20/20 14:51 MARSHALL [id number] 11/20/20 14:55 MARSHALL 11/20/20 14:51 Wound Center Nurse 2 -Time 14:51 -Correct Patient Yes -Correct Side, Site, Position Yes -Correct Procedure Yes -Procedure Performed Yes -Type of Procedure Debridement -Clinical Debridement Muscle / Fascia -Tissue Removed Muscle -Post Debridement (cm) - Length 8 -Post Debridement (cm) - Width 11 -Post Debridement (cm) - Depth 1.2 -Total Square (Post) (cm) 88 -Area of Debridement (cm) - Length 8 -Area of Debridement (cm) - Width 11 -Total Square (Area) (cm) 88 -Tunneling No -Undermining/Tunneling No -Circular Undermining No -Wound/Ulcer Outcome Not Healed -Ulcer Cleansing Rinsed/ Irrigated with Saline -Foul Odor after Cleansing No -Bioengineered Tissue No -Bleeding Controlled with Pressure -Offloading No -Treatment Response Procedure Tolerated Well -Debridement - Muscle / Fascia, 1st Yes 20sq cm -Debridement, Muscle/Fascia, ea addt'l 4 20sq cm or part thereof Pain Scale: 0-10 Numeric Is Patient Pain Free? Yes Wound debrided: BKA anterior stump ulcer Laterality: Left Wound Grade/Stage: Stage IV Type of Debridement: Excisional debridement Anesthesia Used: 5% Lidocaine Gel Depth: Down to and including healthy tissue, in the subcutaneous layer, to muscle and to bone Percentage of wound debrided: 100 Instrument Used: 7mm curette Tissue Removed: Subcutaneous tissue and slough into the muscle, with bone exposure Severity: Fat Layer Exposed Amount of bleeding with debridement: Mild Bleeding Controlled with: Pressure Patient tolerated procedure: Patient tolerated procedure well Assessment/Plan Assessment/Plan (1) Pressure ulcer of BKA stump, stage 4: CODE(S): T87.89 - Other complications of amputation stump; L89.894 - Pressure ulcer of other site, stage 4 (2) Infection of left below knee amputation: CODE(S): T87.44 - Infection of amputation stump, left lower extremity (3) Diabetes mellitus with ulcer of lower extremity: CODE(S): E11.622 - Type 2 diabetes mellitus with other skin ulcer; L97.909 - Non-pressure chronic ulcer of unspecified part of unspecified lower leg with unspecified severity (4) Diabetes: CODE(S): E11.9 - Type 2 diabetes mellitus without complications (5) Smoker: CODE(S): F17.200 - Nicotine dependence, unspecified, uncomplicated PLAN: Wound care - Wound VAC at 150 mmHg to be changed 3 times per week. Wash ulcer and surrounding skin with soap and water at the time of the wound VAC changes. AMIE wrap for compression. He is at [facility] with PICC line receiving Zosyn IV and Doxycycline po (stop date 12/18/20). Encourage high protein diet to help with wound healing an to help keep better control of blood sugars. He currently is homeless, so he needs to stay in a facility due to him requiring the wound VAC and for better management of his ulcer and medication management.
== END 2020-11-21 23:59 ==
LOC: WC 13:44
PROVIDERS: PCP Family Medicine; Visit Provider Nurse Practitioner Family
DX: T87.89 Other complications of amputation stump (principal); Y84.8 Other medical procedures as the cause of abnormal reaction of the patient, or of later complication, without mention of misadventure at the time of the procedure; B95.61 Methicillin susceptible Staphylococcus aureus infection as the cause of diseases classified elsewhere; E11.622 Type 2 diabetes mellitus with other skin ulcer; L89.894 Pressure ulcer of other site, stage 4; F17.200 Nicotine dependence, unspecified, uncomplicated; Z59.0 Homelessness
CPT/HCPCS: 11043; 11046; 97606; 99213; G0463

== ENCOUNTER 2020-12-11 09:00 | Outpatient (RCR) | payer MEDICARE, MEDICAID, SELFPAY ==
[2020-11-22 00:45] VITALS: RESP 20; TEMP 36.5
[2020-12-11 08:48] VITALS: BP 125/77; PULSE 77; RESP 16; TEMP 35.6
--- NOTE | 2020-12-11 12:54 | PCM.WC.PN ---
History of Present Illness Date of Service: 12/11/20 Chief Complaint: Ulcer on left BKA after I&D of a diabetic abscess/hematoma on 11/06/20 History of Wound: Surgery on 11/06/20 - Surgical preparation left below knee amputation stump with incision and drainage and excisional debridement with partial ostectomy tibia for osteomyelitis and evacuation hematoma for draining diabetic ulcer abscess. (He had his Left BKA on 04/17/20). Operative tissue and bone cultures were negative. Wound cultures from 11/02/20 positive for MSSA, Enterobacter cloacae complex, and Corynebacterium amycolatum. He is at [facility] with PICC line receiving Zosyn IV and Doxycycline po (stop date 12/18/20). Wound care - Wound VAC at 150 mmHg to be changed 3 times per week. Wash ulcer and surrounding skin with soap and water at the time of the wound VAC changes. Prealbumin 9.9 on 11/07/20. Today he denies any fever. He states his appetite is good. Progress of Wound: Ulcer is improved. Subjective Subjective Patient denies any complaints at this time. He continues to by in an ECF to help with his wound care and wound VAC changes. Objective Data Objective Data Vital Signs: Vital Signs Temp Pulse Resp BP 96.1 F L 77 16 125/77 H 12/11/20 08:48 12/11/20 08:48 12/11/20 08:48 12/11/20 08:48 Oxygen Delivery Method Room Air Charges/Coding Procedures Integumentary 111xxx-113xx: 26384 Global Visit Physical Exam Const alert and oriented x3 General Appearance: cooperative HEENT normocephalic Head and Scalp: atraumatic Lymph Lymphatic: no lymphedema noted Resp normal respiratory effort Cardio regular rate GI non-tender Palpation: soft Extremity normal capillary refill Skin Skin Narrative: Left BKA stump ulcer is improved, there is bone coverage. Periwound is stable. Neuro CN's II-XII intact bilaterally Psych Appearance: grossly normal Debridement Note Debridement Note Wound debrided: BKA stump ulcer Laterality: Left Wound Grade/Stage: Stage IV Type of Debridement: Excisional debridement Anesthesia Used: 4% Lidocaine Solution and 5% Lidocaine Gel Depth: Down to and including healthy tissue and in the subcutaneous layer Percentage of wound debrided: 100 Instrument Used: 5mm curette Tissue Removed: Subcutaneous tissue and slough Severity: Fat Layer Exposed Amount of bleeding with debridement: Mild Bleeding Controlled with: Pressure Patient tolerated procedure: Patient tolerated procedure well Post-Debridement Measurements and Additional Note: Post-Debridement Measurements/Treatment - Nurse 1 - General Ulcer Assessment Start: 12/11/20 08:48 Freq: Status: Active Protocol: ARLETH Activity Type Activity Date Activity User E-Sign Co-Sign Detail Recorded Client Recorded Date Recorded By Document 12/11/20 08:48 [facility] [id number] 12/11/20 08:55 [facility] 12/11/20 08:48 - Today's Visit Information Type of service Follow-up Visit (Physician/PLANNING ASSISTANT ) Arrival Mode Wheelchair Transfer Assistance None Transfer Assist (Other) stand by Accompanied by caregiver Patient Identification Verified (Name & Yes ) Patient Requires Transmission-Based No Precautions Vital Signs Temperature (97.8 F-99.1 F) 96.1 F L Temperature Source Temporal Pulse Rate (60-100) 77 Pulse Location Monitor Respiratory Rate (12-18) 16 Respiratory rate source Observation Oxygen Delivery Method Room Air Blood Pressure (90/60-120/80) 125/77 H Blood Pressure Mean (mm Hg) 93 Source Monitor Position Sitting Blood Pressure Location Left Arm History Since Last Visit- (Skip if this is Patient's initial visit) Have you changed medications since your No last visit? Any new allergies or adverse reactions No Had a fall/change in ADL's that may No increase risk of falls Signs or symptoms of abuse and/or No neglect since last visit Have you been in the hospital since your No last visit? Has dressing in place as prescribed Yes Has compression in place as prescribed N/A Has offloadiing in place as prescribed N/A Experienced any changes in pain level or No management Pain Scale: 0-10 Numeric Is Patient Pain Free? Yes - Nurse 1 - General Ulcer Measurement Start: 12/11/20 08:48 Freq: Status: Active Protocol: Activity Type Activity Date Activity User E-Sign Co-Sign Detail Recorded Client Recorded Date Recorded By Document 12/11/20 08:48 [facility] [id number] 12/11/20 08:55 [facility] 12/11/20 08:48 Wound Center Nurse 1 #3 L Stump/Post op -Combined with other wound No -Current Size (cm) - Length 5.2 -Current Size (cm) - Width 9 -Current Size (cm) - Depth 0.2 -Total Square Cm 46.8 -Photo Taken No -Epithelialization None Present -Tunneling No -Undermining/Tunneling No -Circular Undermining No -Exudate Amt Large -Exudate Type Serosanguineous -Wound Margin Distinct, Outline Attached -Granulation Amt Large (67-100%) -Granulation Quality [place] -Slough/Fibrin Yes -Necrosis Amt Small (1-33%) -Necrotic Tissue Type Adherent Slough -Texture (Yudy-wound Skin Appearance) Assessed, Scarring -Moisture (Yudy-wound Skin Appearance) Assessed -Color (Yudy-wound Skin Appearance) Assessed -Temperature (Yudy-wound Skin No Abnormality Appearance) (Pt Warm) -Tenderness on Palpation (Yudy-wound No Skin Appearance) -Ulcer Cleansing soapy water -Foul Odor after Cleansing No -Anesthetic Used 4% Lidocaine Solution WC - Nurse 2 - General Ulcer CM Notes Start: 12/11/20 08:48 Freq: Status: Active Protocol: Activity Type Activity Date Activity User E-Sign Co-Sign Detail Recorded Client Recorded Date Recorded By Document 12/11/20 09:21 [facility] [id number] 12/11/20 09:24 [facility] 12/11/20 09:21 Wound Center Nurse 2 -Time 09:21 -Correct Patient Yes -Correct Side, Site, Position Yes -Correct Procedure Yes -Procedure Performed Yes -Type of Procedure Debridement -Clinical Debridement Muscle / Fascia -Tissue Removed Muscle -Post Debridement (cm) - Length 6 -Post Debridement (cm) - Width 9.5 -Post Debridement (cm) - Depth 0.6 -Total Square (Post) (cm) 57.0 -Area of Debridement (cm) - Length 6 -Area of Debridement (cm) - Width 9.5 -Total Square (Area) (cm) 57.0 -Tunneling No -Undermining/Tunneling No -Circular Undermining No -Wound/Ulcer Outcome Not Healed -Ulcer Cleansing Rinsed/ Irrigated with Saline -Foul Odor after Cleansing No -Bioengineered Tissue No -Bleeding Controlled with Pressure -Offloading No -Treatment Response Procedure Tolerated Well -Debridement - Muscle / Fascia, 1st Yes 20sq cm -Debridement, Muscle/Fascia, ea addt'l 2 20sq cm or part thereof Pain Scale: 0-10 Numeric Is Patient Pain Free? Yes WC - Nurse 3 - General Ulcer D/C NN Start: 12/11/20 08:48 Freq: Status: Active Protocol: Activity Type Activity Date Activity User E-Sign Co-Sign Detail Recorded Client Recorded Date Recorded By Document 12/11/20 09:36 DL [id number] 12/11/20 09:37 DL 12/11/20 09:36 Wound Care Nurse 3 #3 L Stump/Post op -Primary Dressing Applied Other -Other Dressing wet to dry Left -Compression Wrap [place] Wrap Pain Scale: 0-10 Numeric Is Patient Pain Free? Yes Assessment/Plan Assessment/Plan (1) Pressure ulcer of BKA stump, stage 4: CODE(S): T87.89 - Other complications of amputation stump; L89.894 - Pressure ulcer of other site, stage 4 (2) Infection of left below knee amputation: CODE(S): T87.44 - Infection of amputation stump, left lower extremity (3) Diabetes mellitus with ulcer of lower extremity: CODE(S): E11.622 - Type 2 diabetes mellitus with other skin ulcer; L97.909 - Non-pressure chronic ulcer of unspecified part of unspecified lower leg with unspecified severity (4) Diabetes: CODE(S): E11.9 - Type 2 diabetes mellitus without complications (5) Smoker: CODE(S): F17.200 - Nicotine dependence, unspecified, uncomplicated PLAN: Wound care - Wound VAC at 150 mmHg to be changed 3 times per week. Wash ulcer and surrounding skin with soap and water at the time of the wound VAC changes. CHALINO wrap for compression. He is at [facility] with PICC line receiving Zosyn IV and Doxycycline po (stop date 12/18/20). Encourage high protein diet to help with wound healing an to help keep better control of blood sugars. He currently is homeless, so he needs to stay in a facility due to him requiring the wound VAC and for better management of his ulcer and medication management. Follow up 2 weeks.
== END 2020-12-21 23:59 ==
LOC: WC 09:00
PROVIDERS: PCP Family Medicine; Visit Provider Nurse Practitioner Family
DX: T87.89 Other complications of amputation stump (principal); Y84.8 Other medical procedures as the cause of abnormal reaction of the patient, or of later complication, without mention of misadventure at the time of the procedure; E11.622 Type 2 diabetes mellitus with other skin ulcer; L89.894 Pressure ulcer of other site, stage 4; T87.44 Infection of amputation stump, left lower extremity; Z59.0 Homelessness
CPT/HCPCS: 11043; 11046

== ENCOUNTER 2021-01-15 13:45 | Outpatient (RCR) | payer MEDICARE, MEDICAID, SELFPAY ==
[2020-12-22 00:34] VITALS: BP 125/77; PULSE 77; RESP 16; TEMP 35.6
[2020-12-25 08:54] VITALS: BP 138/84; PULSE 73; RESP 16; TEMP 36.4
--- NOTE | 2020-12-25 12:53 | PCM.WC.PN ---
History of Present Illness Date of Service: 12/25/20 Chief Complaint: Ulcer on left BKA after I&D of a diabetic abscess/hematoma on 11/06/20 History of Wound: Surgery on 11/06/20 - Surgical preparation left below knee amputation stump with incision and drainage and excisional debridement with partial ostectomy tibia for osteomyelitis and evacuation hematoma for draining diabetic ulcer abscess. (He had his Left BKA on 04/17/20). Operative tissue and bone cultures were negative. Wound cultures from 11/02/20 positive for MSSA, Enterobacter cloacae complex, and Corynebacterium amycolatum. He is at [facility] with PICC line receiving Zosyn IV and Doxycycline po which are now completed. Wound care - Wound VAC at 150 mmHg to be changed 3 times per week. Wash ulcer and surrounding skin with soap and water at the time of the wound VAC changes. He would benefit from an advanced wound healing product such as Theraskin to help his ulcer on his left BKA heal faster. Prealbumin 9.9 on 11/07/20. Today he denies any fever. He states his appetite is good. Progress of Wound: Improved. Objective Data Objective Data Vital Signs: Vital Signs Temp Pulse Resp BP 97.5 F L 73 16 138/84 H 12/25/20 08:54 12/25/20 08:54 12/25/20 08:54 12/25/20 08:54 Oxygen Delivery Method Room Air Charges/Coding Procedures Integumentary 111xxx-113xx: 55430 Global Visit Physical Exam Const alert and oriented x3 General Appearance: cooperative HEENT normocephalic Eyes PERRL Resp normal respiratory effort Cardio regular rate GI non-tender Palpation: soft Extremity normal capillary refill Skin Wound Narrative: Left BKA stump ulcer is improving in size and depth with the use of the wound VAC. Neuro CN's II-XII intact bilaterally Psych Appearance: grossly normal Debridement Note Debridement Note Wound debrided: BKA stump Laterality: Left Wound Grade/Stage: Stage IV Type of Debridement: Excisional debridement Anesthesia Used: 5% Lidocaine Gel Depth: Down to and including healthy tissue and in the subcutaneous layer Percentage of wound debrided: 100 Instrument Used: 5mm curette Tissue Removed: Subcutaneous tissue and slough Severity: Fat Layer Exposed Amount of bleeding with debridement: Mild Bleeding Controlled with: Pressure Patient tolerated procedure: Patient tolerated procedure well Post-Debridement Measurements and Additional Note: Post-Debridement Measurements/Treatment - Nurse 1 - General Ulcer Assessment Start: 12/25/20 08:54 Freq: Status: Active Protocol: ARLETH Activity Type Activity Date Activity User E-Sign Co-Sign Detail Recorded Client Recorded Date Recorded By Document 12/25/20 08:54 [facility] [id number] 12/25/20 08:57 [facility] 12/25/20 08:54 WC - Today's Visit Information Type of service Follow-up Visit (Physician/VETERINARY PRACTICE MANAGER ) Arrival Mode Wheelchair Transfer Assistance None Accompanied by caregiver Patient Identification Verified (Name & Yes ) Patient Requires Transmission-Based No Precautions Vital Signs Temperature (97.8 F-99.1 F) 97.5 F L Temperature Source Temporal Pulse Rate (60-100) 73 Pulse Location Monitor Respiratory Rate (12-18) 16 Respiratory rate source Observation Oxygen Delivery Method Room Air Blood Pressure (90/60-120/80) 138/84 H Blood Pressure Mean (mm Hg) 102 Source Monitor Position Sitting Blood Pressure Location Right Arm History Since Last Visit- (Skip if this is Patient's initial visit) Have you changed medications since your No last visit? Any new allergies or adverse reactions No Had a fall/change in ADL's that may No increase risk of falls Signs or symptoms of abuse and/or No neglect since last visit Have you been in the hospital since your No last visit? Has dressing in place as prescribed Yes Has compression in place as prescribed Yes Has offloadiing in place as prescribed Yes Experienced any changes in pain level or No management Pain Scale: 0-10 Numeric Is Patient Pain Free? Yes - Nurse 1 - General Ulcer Measurement Start: 12/25/20 08:54 Freq: Status: Active Protocol: Activity Type Activity Date Activity User E-Sign Co-Sign Detail Recorded Client Recorded Date Recorded By Document 12/25/20 08:54 [facility] [id number] 12/25/20 08:57 [facility] 12/25/20 08:54 Wound Center Nurse 1 #3 L Stump/Post op -Combined with other wound No -Current Size (cm) - Length 3 -Current Size (cm) - Width 7 -Current Size (cm) - Depth 0.7 -Total Square Cm 21 -Photo Taken No -Epithelialization Small 1-33% -Tunneling No -Undermining/Tunneling No -Circular Undermining No -Exudate Amt Medium -Exudate Type Serosanguineous -Wound Margin Distinct, Outline Attached -Granulation Amt Large (67-100%) -Granulation Quality [place] -Slough/Fibrin Yes -Necrosis Amt Small (1-33%) -Necrotic Tissue Type Adherent Slough -Texture (Yudy-wound Skin Appearance) Assessed, Scarring -Moisture (Yudy-wound Skin Appearance) Assessed -Color (Yudy-wound Skin Appearance) Assessed -Temperature (Yudy-wound Skin No Abnormality Appearance) (Pt Warm) -Tenderness on Palpation (Yudy-wound No Skin Appearance) -Ulcer Cleansing Soap and Water -Foul Odor after Cleansing No -Anesthetic Used 4% Lidocaine Solution WC - Nurse 2 - General Ulcer CM Notes Start: 12/25/20 08:54 Freq: Status: Active Protocol: Activity Type Activity Date Activity User E-Sign Co-Sign Detail Recorded Client Recorded Date Recorded By Document 12/25/20 09:06 [facility] [id number] 12/25/20 09:10 [facility] 12/25/20 09:06 Wound Center Nurse 2 -Time 09:06 -Correct Patient Yes -Correct Side, Site, Position Yes -Correct Procedure Yes -Procedure Performed Yes -Type of Procedure Debridement -Clinical Debridement Subcutaneous -Tissue Removed Subcutaneous -Post Debridement (cm) - Length 4 -Post Debridement (cm) - Width 7 -Post Debridement (cm) - Depth 0.9 -Total Square (Post) (cm) 28 -Area of Debridement (cm) - Length 4 -Area of Debridement (cm) - Width 7 -Total Square (Area) (cm) 28 -Tunneling No -Undermining/Tunneling No -Circular Undermining No -Wound/Ulcer Outcome Not Healed -Ulcer Cleansing Rinsed/ Irrigated with Saline -Foul Odor after Cleansing No -Bioengineered Tissue No -Bleeding Controlled with Pressure -Type of Offloading Total Contact Cast (TCC) - Left ($) -Treatment Response Procedure Not Tolerated Well -Debridement - Subq, 1st 20sq cm Yes -Debridement, SubQ, ea addt'l 20sq cm 1 or part thereof Pain Scale: 0-10 Numeric Is Patient Pain Free? Yes Assessment/Plan Assessment/Plan (1) Diabetes mellitus with ulcer of lower extremity: CODE(S): E11.622 - Type 2 diabetes mellitus with other skin ulcer; L97.909 - Non-pressure chronic ulcer of unspecified part of unspecified lower leg with unspecified severity (2) Pressure ulcer of BKA stump, stage 4: CODE(S): T87.89 - Other complications of amputation stump; L89.894 - Pressure ulcer of other site, stage 4 (3) Diabetes: CODE(S): E11.9 - Type 2 diabetes mellitus without complications (4) Smoker: CODE(S): F17.200 - Nicotine dependence, unspecified, uncomplicated PLAN: Wound care - Wound VAC at 150 mmHg to be changed 3 times per week. Wash ulcer and surrounding skin with soap and water at the time of the wound VAC changes. He would benefit from an advanced wound healing product such as Theraskin to help improve his wound healing. We may continue to use the wound VAC while using the Theraskin to help manage the drainage. AMIE wrap for compression. He is at [facility]. The PICC line was removed because he completed the Zosyn IV and Doxycycline po on 12/18/20. Encourage high protein diet to help with wound healing an to help keep better control of blood sugars. He currently is homeless, so he needs to stay in a facility due to him requiring the wound VAC and for better management of his ulcer and medication management. Follow up 2 weeks.
[2021-01-08 14:36] VITALS: BP 136/84; PULSE 72; TEMP 36.2
--- NOTE | 2021-01-08 16:27 | PN.PCM_ITS ---
History of Present Illness Date of Service: 01/08/21 Chief Complaint: Ulcer on left BKA after I&D of a diabetic abscess/hematoma on 11/06/20 History of Wound: Surgery on 11/06/20 - Surgical preparation left below knee amputation stump with incision and drainage and excisional debridement with partial ostectomy tibia for osteomyelitis and evacuation hematoma for draining diabetic ulcer abscess. (He had his Left BKA on 04/17/20). Operative tissue and bone cultures were negative. Wound cultures from 11/02/20 positive for MSSA, Enterobacter cloacae complex, and Corynebacterium amycolatum. He is at [facility], Zosyn IV and Doxycycline po which are now completed. He has had a plateau in the healing process and will proceed with using Theraskin and advanced skin substitute graft to help with wound healing. Wound care - Theraskin #1 placed today secured with dermabond, steri strips and covered with a wound veil that was secured with steri strips. Wound VAC at 125 mmHg to be changed 3 times per week. Prealbumin 9.9 on 11/07/20. Today he denies any fever. He states his appetite is good. Progress of Wound: Improved. Objective Data Objective Data Vital Signs: Vital Signs Temp Pulse Resp BP 97.1 F L 72 16 136/84 H 01/08/21 14:36 01/08/21 14:36 12/25/20 08:54 01/08/21 14:36 Oxygen Delivery Method Room Air Charges/Coding Procedures Integumentary 150xxx-152xx: 15404 Skin sub graft trnk/arm/leg (58 modifier) Physical Exam Const alert and oriented x3 General Appearance: cooperative HEENT normocephalic Resp normal respiratory effort Cardio regular rate GI Palpation: soft Extremity normal capillary refill Skin Wound Narrative: Left BKA Stump ulcer beefy pink with muscle and bone exposure Neuro CN's II-XII intact bilaterally Psych Appearance: grossly normal Debridement Note Debridement Note Wound debrided: BKA stump Laterality: Left Wound Grade/Stage: Stage IV Type of Debridement: Excisional debridement Anesthesia Used: 5% Lidocaine Gel Depth: Down to and including healthy tissue, in the subcutaneous layer, to muscle and to bone Percentage of wound debrided: 100 Instrument Used: 7mm curette Tissue Removed: Subcutaneous tissue and slough into the muscle with bone exposure Severity: Fat Layer Exposed Amount of bleeding with debridement: Mild Bleeding Controlled with: Pressure Patient tolerated procedure: Patient tolerated procedure well Post-Debridement Measurements and Additional Note: Post-Debridement Measurements/Treatment WC - Nurse 1 - General Ulcer Assessment Start: 12/25/20 08:54 Freq: Status: Active Protocol: ARLETH Activity Type Activity Date Activity User E-Sign Co-Sign Detail Recorded Client Recorded Date Recorded By Document 12/25/20 08:54 [facility] [id number] 12/25/20 08:57 [facility] Document 01/08/21 14:36 [place] [id number] 01/08/21 14:39 [place] 12/25/20 01/08/21 08:54 14:36 WC - Today's Visit Information Type of service Follow-up Visit Follow-up Visit (Physician/CONSTRUCTION STONEMASON (Physician/CONSTRUCTION STONEMASON ) ) Arrival Mode Wheelchair Other Arrival Mode (Other) scooter Transfer Assistance None Accompanied by caregiver aid Patient Identification Verified (Name & Yes Yes ) Patient Requires Transmission-Based No No Precautions Safety Precautions NA Vital Signs Temperature (97.8 F-99.1 F) 97.5 F L 97.1 F L Temperature Source Temporal Temporal Pulse Rate (60-100) 73 72 Pulse Location Monitor Monitor Respiratory Rate (12-18) 16 Respiratory rate source Observation Oxygen Delivery Method Room Air Blood Pressure (90/60-120/80) 138/84 H 136/84 H Blood Pressure Mean (mm Hg) 102 101 Source Monitor Monitor Position Sitting Blood Pressure Location Right Arm History Since Last Visit- (Skip if this is Patient's initial visit) Have you changed medications since your No No last visit? Any new allergies or adverse reactions No No Had a fall/change in ADL's that may No No increase risk of falls Signs or symptoms of abuse and/or No No neglect since last visit Have you been in the hospital since your No No last visit? Has dressing in place as prescribed Yes Yes Has compression in place as prescribed Yes Yes Has offloadiing in place as prescribed Yes N/A Experienced any changes in pain level or No No management Right Footwear Regular Shoe Pain Scale: 0-10 Numeric Is Patient Pain Free? Yes FREDI - Nurse 1 - General Ulcer Measurement Start: 12/25/20 08:54 Freq: Status: Active Protocol: Activity Type Activity Date Activity User E-Sign Co-Sign Detail Recorded Client Recorded Date Recorded By Document 12/25/20 08:54 [facility] [id number] 12/25/20 08:57 [facility] Document 01/08/21 14:36 [place] [id number] 01/08/21 14:39 [place] 12/25/20 01/08/21 08:54 14:36 Wound Center Nurse 1 #3 L Stump/Post op -Combined with other wound No No -Current Size (cm) - Length 3 2 -Current Size (cm) - Width 7 6 -Current Size (cm) - Depth 0.7 0.7 -Total Square Cm 21 12 -Photo Taken No No -Epithelialization Small 1-33% Large 67-100% -Tunneling No No -Undermining/Tunneling No No -Circular Undermining No No -Classification - Thickness Partial Thickness -Exudate Amt Medium Medium -Exudate Type Serosanguineous Serosanguineous -Wound Margin Distinct, Distinct, Outline Outline Attached Attached -Granulation Amt Large (67-100%) Large (67-100%) -Granulation Quality [place] Pale,[place] -Slough/Fibrin Yes No -Necrosis Amt Small (1-33%) None Present (0 %) -Necrotic Tissue Type Adherent Slough -Structure Exposed Bone -Texture (Yudy-wound Skin Appearance) Assessed, No Abnormality, Scarring Assessed -Moisture (Yudy-wound Skin Appearance) Assessed No Abnormality, Assessed -Color (Yudy-wound Skin Appearance) Assessed No Abnormality, Assessed -Temperature (Yudy-wound Skin No Abnormality No Abnormality Appearance) (Pt Warm) (Pt Warm) -Tenderness on Palpation (Yudy-wound No No Skin Appearance) -Ulcer Cleansing Soap and Water Rinsed/ Irrigated with Saline -Foul Odor after Cleansing No No -Anesthetic Used 4% Lidocaine 4% Lidocaine Solution Solution WC - Nurse 2 - General Ulcer CM Notes Start: 12/25/20 08:54 Freq: Status: Active Protocol: Activity Type Activity Date Activity User E-Sign Co-Sign Detail Recorded Client Recorded Date Recorded By Document 12/25/20 09:06 [facility] [id number] 12/25/20 09:10 JF Edit Result 12/25/20 09:06 JF (1) [id number] 12/27/20 10:32 PL Document 01/08/21 15:21 JF [id number] 01/08/21 15:27 JF (1) #3 L Stump/Post op - Type of Offloading Total Contact Cast => (TCC) - Left ($) => 12/25/20 01/08/21 09:06 15:21 Wound Center Nurse 2 #3 L Stump/Post op -Time 09:06 15:22 -Correct Patient Yes Yes -Correct Side, Site, Position Yes Yes -Correct Procedure Yes Yes -Procedure Performed Yes Yes -Type of Procedure Debridement Debridement -Clinical Debridement Subcutaneous Subcutaneous -Tissue Removed Subcutaneous Subcutaneous -Post Debridement (cm) - Length 4 3 -Post Debridement (cm) - Width 7 6 -Post Debridement (cm) - Depth 0.9 0.9 -Total Square (Post) (cm) 28 18 -Area of Debridement (cm) - Length 4 3 -Area of Debridement (cm) - Width 7 6 -Total Square (Area) (cm) 28 18 -Tunneling No No -Undermining/Tunneling No No -Circular Undermining No No -Wound/Ulcer Outcome Not Healed Not Healed -Ulcer Cleansing Rinsed/ Rinsed/ Irrigated with Irrigated with Saline Saline -Foul Odor after Cleansing No No -Bioengineered Tissue No Yes -Type of Bioengineered Tissue Theraskin -Expiration Date 06/22/24 -Product Lot Number [id number] -Percent Used 100 -Lot number of Saline Used [id number] -Bleeding Controlled with Pressure Pressure -Offloading Yes -Type of Offloading Knee Walker -Treatment Response Procedure Not Procedure Tolerated Well Tolerated Well -Debridement - Subq, 1st 20sq cm Yes No -Debridement, SubQ, ea addt'l 20sq cm 1 or part thereof -Apply Skin Sub - each addt'l 25 sq cm 1 - Legs -Theraskin (per sq cm) 26 Pain Scale: 0-10 Numeric Is Patient Pain Free? Yes Yes WC - Nurse 3 - General Ulcer D/C NN Start: 12/25/20 08:54 Freq: Status: Active Protocol: Activity Type Activity Date Activity User E-Sign Co-Sign Detail Recorded Client Recorded Date Recorded By Document 01/08/21 15:37 [place] [id number] 01/08/21 15:38 [place] 01/08/21 15:37 Wound Care Nurse 3 #3 L Stump/Post op -Foul Odor after Cleansing No -Negative Pressure Wound Therapy N/A -Primary Dressing Covered/Secured with Dry Gauze & Roll Gauze, Secured with Tape Left -Lotion applied to leg before No compression wrap -Compression Wrap Chalino Wrap WC - Visit Discharge Discharge Condition Stable Ambulatory Status Walker, Wheelchair Medication Reconcilliation completed & No provided to patient/care provider Clinical Summary of Care Provided Yes Assessment/Plan Assessment/Plan (1) Pressure ulcer of BKA stump, stage 4: CODE(S): T87.89 - Other complications of amputation stump; L89.894 - Pressure ulcer of other site, stage 4 (2) Diabetes mellitus with ulcer of lower extremity: CODE(S): E11.622 - Type 2 diabetes mellitus with other skin ulcer; L97.909 - Non-pressure chronic ulcer of unspecified part of unspecified lower leg with unspecified severity (3) Diabetes: CODE(S): E11.9 - Type 2 diabetes mellitus without complications (4) Smoker: CODE(S): F17.200 - Nicotine dependence, unspecified, uncomplicated PLAN: He has had a plateau in the healing process and will proceed with using Theraskin and advanced skin substitute graft to help with wound healing. Wound care - Theraskin #1 placed today secured with dermabond, steri strips and covered with a wound veil that was secured with steri strips. Wound VAC at 125 mmHg to be changed 3 times per week. He is at [facility]. The PICC line was removed because he completed the Zosyn IV and Doxycycline po on 12/18/20. Encourage high protein diet to help with wound healing an to help keep better control of blood sugars. He currently is homeless, so he needs to stay in a facility due to him requiring the wound VAC and for better management of his ulcer and medication management. Follow up 1 week.
[2021-01-15 13:36] VITALS: BP 119/77; PULSE 74; RESP 16; TEMP 36.3
--- NOTE | 2021-01-15 14:52 | PN.PCM_ITS ---
History of Present Illness Date of Service: 01/15/21 Chief Complaint: Ulcer on left BKA after I&D of a diabetic abscess/hematoma on 11/06/20 History of Wound: Surgery on 11/06/20 - Surgical preparation left below knee amputation stump with incision and drainage and excisional debridement with partial ostectomy tibia for osteomyelitis and evacuation hematoma for draining diabetic ulcer abscess. (He had his Left BKA on 04/17/20). Operative tissue and bone cultures were negative. Wound cultures from 11/02/20 positive for MSSA, Enterobacter cloacae complex, and Corynebacterium amycolatum. He is at [facility], Zosyn IV and Doxycycline po which are now completed. He has had a plateau in the healing process and will proceed with using Theraskin and advanced skin substitute graft to help with wound healing. Wound care - Theraskin #2 placed today secured with dermabond, steri strips and covered with a wound veil that was secured with steri strips. Wound VAC at 125 mmHg to be changed weekly. Prealbumin 9.9 on 11/07/20. Today he denies any fever. He states his appetite is good. Progress of Wound: Improved. Objective Data Objective Data Vital Signs: Vital Signs Temp Pulse Resp BP 97.4 F L 74 16 119/77 01/15/21 13:36 01/15/21 13:36 01/15/21 13:36 01/15/21 13:36 Oxygen Delivery Method Room Air Charges/Coding Procedures Integumentary 150xxx-152xx: 91421 Skin sub graft trnk/arm/leg (58 modifier) Physical Exam Const alert and oriented x3 General Appearance: cooperative HEENT normocephalic Resp normal respiratory effort Cardio regular rate GI Palpation: soft Extremity normal capillary refill Skin Wound Narrative: Left BKA ulcer is improved, pink in color. Left BKA stump +1 non-pitting edema. Neuro CN's II-XII intact bilaterally Psych Appearance: grossly normal Debridement Note Debridement Note Wound debrided: BKA stump ulcer Laterality: Left Wound Grade/Stage: Stage IV Type of Debridement: Excisional debridement Anesthesia Used: 5% Lidocaine Gel Depth: Down to and including healthy tissue and in the subcutaneous layer Percentage of wound debrided: 100 Instrument Used: 5mm curette Tissue Removed: Subcutaneous tissue and slough Severity: Fat Layer Exposed Amount of bleeding with debridement: Mild Bleeding Controlled with: Pressure Patient tolerated procedure: Patient tolerated procedure well Post-Debridement Measurements and Additional Note: Post-Debridement Measurements/Treatment WC - Nurse 1 - General Ulcer Assessment Start: 12/25/20 08:54 Freq: Status: Active Protocol: ARLETH Activity Type Activity Date Activity User E-Sign Co-Sign Detail Recorded Client Recorded Date Recorded By Document 12/25/20 08:54 [facility] [id number] 12/25/20 08:57 BM Document 01/08/21 14:36 [place] [id number] 01/08/21 14:39 [place] Document 01/15/21 13:36 [facility] [id number] 01/15/21 13:40 BMF 12/25/20 01/08/21 01/15/21 08:54 14:36 13:36 - Today's Visit Information Type of service Follow-up Visit Follow-up Visit Follow-up Visit (Physician/DIGITAL RESEARCH ANALYST (Physician/DIGITAL RESEARCH ANALYST (Physician/DIGITAL RESEARCH ANALYST ) ) ) Arrival Mode Wheelchair Other Wheelchair Arrival Mode (Other) scooter Transfer Assistance None None Accompanied by caregiver aid caregiver Patient Identification Verified (Name & Yes Yes Yes ) Patient Requires Transmission-Based No No No Precautions Safety Precautions NA Vital Signs Temperature (97.8 F-99.1 F) 97.5 F L 97.1 F L 97.4 F L Temperature Source Temporal Temporal Temporal Pulse Rate (60-100) 73 72 74 Pulse Location Monitor Monitor Monitor Respiratory Rate (12-18) 16 16 Respiratory rate source Observation Observation Oxygen Delivery Method Room Air Room Air Blood Pressure (90/60-120/80) 138/84 H 136/84 H 119/77 Blood Pressure Mean (mm Hg) 102 101 91 Source Monitor Monitor Monitor Position Sitting Sitting Blood Pressure Location Right Arm Left Arm History Since Last Visit- (Skip if this is Patient's initial visit) Have you changed medications since your No No Yes last visit? Any new allergies or adverse reactions No No No Had a fall/change in ADL's that may No No No increase risk of falls Signs or symptoms of abuse and/or No No No neglect since last visit Have you been in the hospital since your No No No last visit? Has dressing in place as prescribed Yes Yes Yes Has compression in place as prescribed Yes Yes Yes Has offloadiing in place as prescribed Yes N/A Yes Experienced any changes in pain level or No No No management Right Footwear Regular Shoe Pain Scale: 0-10 Numeric Is Patient Pain Free? Yes Yes WC - Nurse 1 - General Ulcer Measurement Start: 12/25/20 08:54 Freq: Status: Active Protocol: Activity Type Activity Date Activity User E-Sign Co-Sign Detail Recorded Client Recorded Date Recorded By Document 12/25/20 08:54 [facility] [id number] 12/25/20 08:57 [facility] Document 01/08/21 14:36 [place] [id number] 01/08/21 14:39 [place] Document 01/15/21 13:36 [facility] [id number] 01/15/21 13:40 [facility] 12/25/20 01/08/21 01/15/21 08:54 14:36 13:36 Wound Center Nurse 1 #3 L Stump/Post op -Combined with other wound No No No -Current Size (cm) - Length 3 2 5 -Current Size (cm) - Width 7 6 0.5 -Current Size (cm) - Depth 0.7 0.7 0.5 -Total Square Cm 21 12 2.5 -Photo Taken No No No -Epithelialization Small 1-33% Large 67-100% Small 1-33% -Tunneling No No No -Undermining/Tunneling No No No -Circular Undermining No No No -Classification - Thickness Partial Thickness -Exudate Amt Medium Medium Medium -Exudate Type Serosanguineous Serosanguineous Serosanguineous -Wound Margin Distinct, Distinct, Distinct, Outline Outline Outline Attached Attached Attached -Granulation Amt Large (67-100%) Large (67-100%) Medium (34-66%) -Granulation Quality [place] Pale,[place] -Slough/Fibrin Yes No Yes -Necrosis Amt Small (1-33%) None Present (0 Medium (34-66%) %) -Necrotic Tissue Type Adherent Slough Adherent Slough -Structure Exposed Bone -Texture (Yudy-wound Skin Appearance) Assessed, No Abnormality, Not Assessed, Scarring Assessed Scarring -Moisture (Yudy-wound Skin Appearance) Assessed No Abnormality, Assessed Assessed -Color (Yudy-wound Skin Appearance) Assessed No Abnormality, Assessed Assessed -Temperature (Yudy-wound Skin No Abnormality No Abnormality No Abnormality Appearance) (Pt Warm) (Pt Warm) (Pt Warm) -Tenderness on Palpation (Yudy-wound No No No Skin Appearance) -Ulcer Cleansing Soap and Water Rinsed/ Soap and Water Irrigated with Saline -Foul Odor after Cleansing No No No -Anesthetic Used 4% Lidocaine 4% Lidocaine 4% Lidocaine Solution Solution Solution WC - Nurse 2 - General Ulcer CM Notes Start: 12/25/20 08:54 Freq: Status: Active Protocol: Activity Type Activity Date Activity User E-Sign Co-Sign Detail Recorded Client Recorded Date Recorded By Document 12/25/20 09:06 JF [id number] 12/25/20 09:10 JF Edit Result 12/25/20 09:06 JF (1) [id number] 12/27/20 10:32 PL Document 01/08/21 15:21 JF [id number] 01/08/21 15:27 JF Edit Result 01/08/21 15:21 JF (2) [id number] 01/09/21 06:19 PL Document 01/15/21 13:53 JF [id number] 01/15/21 14:01 JF (1) #3 L Stump/Post op - Type of Offloading Total Contact Cast => (TCC) - Left ($) => (2) #3 L Stump/Post op - Apply Skin Sub - 1st 25 sq cm - Legs => 1 - Apply Skin Sub - each addt'l 25 sq cm 1 => - Legs 12/25/20 01/08/21 01/15/21 09:06 15:21 13:53 Wound Center Nurse 2 #3 L Stump/Post op -Time 09:06 15:22 13:53 -Correct Patient Yes Yes Yes -Correct Side, Site, Position Yes Yes Yes -Correct Procedure Yes Yes Yes -Procedure Performed Yes Yes Yes -Type of Procedure Debridement Debridement Debridement -Clinical Debridement Subcutaneous Subcutaneous Subcutaneous -Tissue Removed Subcutaneous Subcutaneous Subcutaneous -Post Debridement (cm) - Length 4 3 2.1 -Post Debridement (cm) - Width 7 6 5.5 -Post Debridement (cm) - Depth 0.9 0.9 0.9 -Total Square (Post) (cm) 28 18 11.55 -Area of Debridement (cm) - Length 4 3 2.1 -Area of Debridement (cm) - Width 7 6 5.5 -Total Square (Area) (cm) 28 18 11.55 -Tunneling No No No -Undermining/Tunneling No No No -Circular Undermining No No No -Wound/Ulcer Outcome Not Healed Not Healed Not Healed -Ulcer Cleansing Rinsed/ Rinsed/ Rinsed/ Irrigated with Irrigated with Irrigated with Saline Saline Saline -Foul Odor after Cleansing No No No -Bioengineered Tissue No Yes Yes -Type of Bioengineered Tissue Theraskin Theraskin -Expiration Date 06/22/24 02/07/24 -Product Lot Number [id number] -Percent Used 100 100 -Lot number of Saline Used [id number] -Bleeding Controlled with Pressure Pressure Pressure -Offloading Yes Yes -Type of Offloading Knee Walker Knee Walker -Treatment Response Procedure Not Procedure Procedure Tolerated Well Tolerated Well Tolerated Well -Debridement - Subq, 1st 20sq cm Yes No No -Debridement, SubQ, ea addt'l 20sq cm 1 or part thereof -Apply Skin Sub - 1st 25 sq cm - Legs 1 1 -Theraskin (per sq cm) 26 13 Pain Scale: 0-10 Numeric Is Patient Pain Free? Yes Yes Yes - Nurse 3 - General Ulcer D/C NN Start: 12/25/20 08:54 Freq: Status: Active Protocol: Activity Type Activity Date Activity User E-Sign Co-Sign Detail Recorded Client Recorded Date Recorded By Document 01/08/21 15:37 [place] [id number] 01/08/21 15:38 [place] Document 01/15/21 14:16 [facility] [id number] 01/15/21 14:17 [facility] 01/08/21 01/15/21 15:37 14:16 Wound Care Nurse 3 #3 L Stump/Post op -Foul Odor after Cleansing No -Negative Pressure Wound Therapy N/A -Primary Dressing Applied Other -Other Dressing theraskin -Primary Dressing Covered/Secured with Dry Gauze & Dry Gauze & Roll Gauze, Roll Gauze, Secured with Secured with Tape Tape,Other -Other Covering abd Left -Lotion applied to leg before No compression wrap -Compression Wrap Chalino Wrap Chalino Wrap Treatment Response Procedure Tolerated Well Pain Scale: 0-10 Numeric Is Patient Pain Free? Yes - Visit Discharge Discharge Condition Stable Stable Ambulatory Status Walker, Wheelchair Wheelchair Transportation ecf Medication Reconcilliation completed & No provided to patient/care provider Clinical Summary of Care Provided Yes Facility Type Residential Care Facility Assessment/Plan Assessment/Plan (1) Pressure ulcer of BKA stump, stage 4: CODE(S): T87.89 - Other complications of amputation stump; L89.894 - Pressure ulcer of other site, stage 4 (2) Diabetes mellitus with ulcer of lower extremity: CODE(S): E11.622 - Type 2 diabetes mellitus with other skin ulcer; L97.909 - Non-pressure chronic ulcer of unspecified part of unspecified lower leg with unspecified severity (3) Diabetes: CODE(S): E11.9 - Type 2 diabetes mellitus without complications (4) Smoker: CODE(S): F17.200 - Nicotine dependence, unspecified, uncomplicated PLAN: He has had a plateau in the healing process and will proceed with using Theraskin and advanced skin substitute graft to help with wound healing. Wound care - Theraskin #2 placed today secured with dermabond, steri strips and covered with a wound veil that was secured with steri strips. Wound VAC at 125 mmHg placed and will be changed daily. The PICC line was removed because he completed the Zosyn IV and Doxycycline po on 12/18/20. Encourage high protein diet to help with wound healing an to help keep better control of blood sugars. He currently is homeless, so he needs to stay in a facility due to him requiring the wound VAC and for better management of his ulcer and medication management. Follow up 1 week
== END 2021-01-21 23:59 ==
LOC: WC 13:45
PROVIDERS: PCP Family Medicine; Visit Provider Nurse Practitioner Family
DX: T87.89 Other complications of amputation stump (principal); Y84.8 Other medical procedures as the cause of abnormal reaction of the patient, or of later complication, without mention of misadventure at the time of the procedure; E11.622 Type 2 diabetes mellitus with other skin ulcer; L89.894 Pressure ulcer of other site, stage 4; Z59.00 Homelessness unspecified; F17.200 Nicotine dependence, unspecified, uncomplicated
CPT/HCPCS: 11042; 11045; 15271; 15272; 29445; Q4121

== ENCOUNTER 2021-02-12 08:45 | Outpatient (RCR) | payer MEDICARE, MEDICAID, SELFPAY ==
[2021-01-22 00:26] VITALS: BP 119/77; PULSE 74; RESP 16; TEMP 36.3
[2021-01-22 10:45] VITALS: BP 116/77; PULSE 74; TEMP 36.3
--- NOTE | 2021-01-22 12:46 | PN.PCM_ITS ---
History of Present Illness Date of Service: 01/22/21 Chief Complaint: Ulcer on left BKA after I&D of a diabetic abscess/hematoma on 11/06/20 History of Wound: Surgery on 11/06/20 - Surgical preparation left below knee amputation stump with incision and drainage and excisional debridement with partial ostectomy tibia for osteomyelitis and evacuation hematoma for draining diabetic ulcer abscess. (He had his Left BKA on 04/17/20). Operative tissue and bone cultures were negative. Wound cultures from 11/02/20 positive for MSSA, Enterobacter cloacae complex, and Corynebacterium amycolatum. He is at [facility], Zosyn IV and Doxycycline po which are now completed. He has had a plateau in the healing process and will proceed with using Theraskin and advanced skin substitute graft to help with wound healing. Wound care - Theraskin #3 placed today secured with dermabond, steri strips and covered with a wound veil that was secured with steri strips. Cover with absorbent dressing, the outer dressing can be changed every 1-2 days, depending on drainage. Will take a wound VAC holiday this week because yudy wound is excoriated from the vac drape. AMIE wrap for compression. Prealbumin 9.9 on 11/07/20. Today he denies any fever. He states his appetite is good. Progress of Wound: Improved. Objective Data Objective Data Vital Signs: Vital Signs Temp Pulse Resp BP 97.3 F L 74 16 116/77 01/22/21 10:45 01/22/21 10:45 01/22/21 00:26 01/22/21 10:45 Charges/Coding Procedures Integumentary 150xxx-152xx: [id number] Skin sub graft trnk/arm/leg (58 modifier) Physical Exam Const alert and oriented x3 General Appearance: cooperative HEENT normocephalic Lymph Lymphatic: no lymphedema noted Resp normal respiratory effort Cardio regular rate GI non-tender Extremity normal capillary refill Skin Wound Narrative: Left BKA stump ulcer is smaller, periwound is dry and irritated most likely from the wound vac drape. Neuro CN's II-XII intact bilaterally Psych Appearance: grossly normal Debridement Note Debridement Note Wound debrided: BKA ulcer Laterality: Left Wound Grade/Stage: stage IV Type of Debridement: Excisional debridement Anesthesia Used: 5% Lidocaine Gel Depth: Down to and including healthy tissue and in the subcutaneous layer Percentage of wound debrided: 100 Instrument Used: 5mm curette Tissue Removed: Subcutaneous tissue and slough Severity: Fat Layer Exposed Amount of bleeding with debridement: Mild Bleeding Controlled with: Pressure Patient tolerated procedure: Patient tolerated procedure well Post-Debridement Measurements and Additional Note: Post-Debridement Measurements/Treatment - Nurse 1 - General Ulcer Assessment Start: 01/22/21 10:42 Freq: Status: Active Protocol: ARLETH Activity Type Activity Date Activity User E-Sign Co-Sign Detail Recorded Client Recorded Date Recorded By Document 01/22/21 10:45 NGUYỄN [id number] 01/22/21 10:46 NGUYỄN 01/22/21 10:45 WC - Today's Visit Information Type of service Follow-up Visit (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 Any new allergies or adverse reactions No Had a fall/change in ADL's that may No increase risk of falls Signs or symptoms of abuse and/or No neglect since last visit Have you been in the hospital since your No last visit? Has dressing in place as prescribed Yes Has compression in place as prescribed N/A Has offloadiing in place as prescribed N/A Experienced any changes in pain level or No management Left Footwear Regular Shoe Right Footwear Regular Shoe Pain Scale: 0-10 Numeric Is Patient Pain Free? Yes - Nurse 1 - General Ulcer Measurement Start: 01/22/21 10:42 Freq: Status: Active Protocol: Activity Type Activity Date Activity User E-Sign Co-Sign Detail Recorded Client Recorded Date Recorded By Document 01/22/21 10:45 NGUYỄN [id number] 01/22/21 10:46 NGUYỄN 01/22/21 10:45 Wound Center Nurse 1 #3 L Stump/Post op -Current Size (cm) - Length 2 -Current Size (cm) - Width 4.9 -Current Size (cm) - Depth 0.6 -Total Square Cm 9.8 -Exudate Amt Medium -Exudate Type Serosanguineous -Wound Margin Distinct, Outline Attached -Granulation Amt Medium (34-66%) -Granulation Quality [place] -Necrosis Amt Small (1-33%) -Necrotic Tissue Type Adherent Slough -Texture (Yudy-wound Skin Appearance) Assessed, Scarring -Moisture (Yudy-wound Skin Appearance) No Abnormality, Assessed -Color (Yudy-wound Skin Appearance) No Abnormality, Assessed -Temperature (Yudy-wound Skin No Abnormality Appearance) (Pt Warm) -Tenderness on Palpation (Yudy-wound No Skin Appearance) -Ulcer Cleansing Soap and Water -Foul Odor after Cleansing No -Anesthetic Used 4% Lidocaine Solution WC - Nurse 2 - General Ulcer CM Notes Start: 01/22/21 10:42 Freq: Status: Active Protocol: Activity Type Activity Date Activity User E-Sign Co-Sign Detail Recorded Client Recorded Date Recorded By Document 01/22/21 11:52 MARSHALL [id number] 01/22/21 11:56 MARSHALL 01/22/21 11:52 Wound Center Nurse 2 -Time 11:53 -Correct Patient Yes -Correct Side, Site, Position Yes -Correct Procedure Yes -Procedure Performed Yes -Type of Procedure Debridement -Clinical Debridement Subcutaneous -Tissue Removed Subcutaneous -Post Debridement (cm) - Length 2.7 -Post Debridement (cm) - Width 5 -Post Debridement (cm) - Depth 0.6 -Total Square (Post) (cm) 13.5 -Area of Debridement (cm) - Length 2.7 -Area of Debridement (cm) - Width 5 -Total Square (Area) (cm) 13.5 -Tunneling No -Undermining/Tunneling No -Circular Undermining No -Wound/Ulcer Outcome Not Healed -Ulcer Cleansing Rinsed/ Irrigated with Saline -Foul Odor after Cleansing No -Bioengineered Tissue Yes -Type of Bioengineered Tissue Theraskin -Expiration Date 02/05/24 -Product Lot Number [id number] -Percent Used 100 -Lot number of Saline Used [id number] -Bleeding Controlled with Pressure -Offloading No -Treatment Response Procedure Tolerated Well -Debridement - Subq, 1st 20sq cm No -Apply Skin Sub - 1st 25 sq cm - Legs 1 -Theraskin (per sq cm) 13 Pain Scale: 0-10 Numeric Is Patient Pain Free? Yes Assessment/Plan Assessment/Plan (1) Pressure ulcer of BKA stump, stage 4: CODE(S): T87.89 - Other complications of amputation stump; L89.894 - Pressure ulcer of other site, stage 4 (2) Diabetes mellitus with ulcer of lower extremity: CODE(S): E11.622 - Type 2 diabetes mellitus with other skin ulcer; L97.909 - Non-pressure chronic ulcer of unspecified part of unspecified lower leg with unspecified severity (3) Diabetes: CODE(S): E11.9 - Type 2 diabetes mellitus without complications (4) Smoker: CODE(S): F17.200 - Nicotine dependence, unspecified, uncomplicated PLAN: Wound care - Theraskin #3 placed today secured with dermabond, steri strips and covered with a wound veil that was secured with steri strips. Place dry absorbent gauze to be change every 1-2 days depending on drainage. AMIE wrap for compression. Will take a wound VAC holiday for one week because of dry, irritated periwound. Completed the Zosyn IV and Doxycycline po on 12/18/20. Encourage high protein diet to help with wound healing an to help keep better control of blood sugars. He currently is homeless, so he needs to stay in a facility due to him requiring the wound VAC and for better management of his ulcer and medication management. Follow up 1 week
[2021-01-29 10:18] VITALS: BP 117/84; PULSE 89; RESP 18; TEMP 36.8
--- NOTE | 2021-01-29 14:43 | PCM.WC.PN ---
History of Present Illness Date of Service: 01/29/21 Chief Complaint: Ulcer on left BKA after I&D of a diabetic abscess/hematoma on 11/06/20 History of Wound: Surgery on 11/06/20 - Surgical preparation left below knee amputation stump with incision and drainage and excisional debridement with partial ostectomy tibia for osteomyelitis and evacuation hematoma for draining diabetic ulcer abscess. (He had his Left BKA on 04/17/20). Operative tissue and bone cultures were negative. Wound cultures from 11/02/20 positive for MSSA, Enterobacter cloacae complex, and Corynebacterium amycolatum. He is at [facility], Zosyn IV and Doxycycline po which are now completed. He has had a plateau in the healing process and will proceed with using Theraskin and advanced skin substitute graft to help with wound healing. Wound care - Theraskin #4 placed today secured with dermabond, steri strips and covered with a wound veil that was secured with steri strips. Restart wound VAC at 125 mmHg to be changed 3 times per week. Yudy wound is improved since taking a wound VAC holiday. AMIE wrap for compression. Prealbumin 9.9 on 11/07/20. Today he denies any fever. He states his appetite is good. Progress of Wound: Improved. Periwound improved with the one week wound VAC holiday. Objective Data Objective Data Vital Signs: Vital Signs Temp Pulse Resp BP 98.2 F 89 18 117/84 H 01/29/21 10:18 01/29/21 10:18 01/29/21 10:18 01/29/21 10:18 Charges/Coding Procedures Integumentary 150xxx-152xx: [id number] Skin sub graft trnk/arm/leg (58 modifier) Physical Exam Const alert and oriented x3 General Appearance: cooperative HEENT normocephalic Lymph Lymphatic: no lymphedema noted Resp normal respiratory effort Cardio regular rate GI Palpation: soft Extremity normal capillary refill Skin Wound Narrative: Left BKA ulcer is showing improvement with the Theraskin advanced skin substitute. Yudy wound is improved this week from taking a break from the wound vac for a week. Neuro CN's II-XII intact bilaterally Psych Appearance: grossly normal Debridement Note Debridement Note Wound debrided: BKA ulcer Laterality: Left Wound Grade/Stage: Stage IV Type of Debridement: Excisional debridement Anesthesia Used: 5% Lidocaine Gel Depth: Down to and including healthy tissue and in the subcutaneous layer Percentage of wound debrided: 100 Instrument Used: 5mm curette Tissue Removed: Subcutaneous tissue and slough Severity: Fat Layer Exposed Amount of bleeding with debridement: Mild Bleeding Controlled with: Pressure and Compression and gauze Patient tolerated procedure: Patient tolerated procedure well Post-Debridement Measurements and Additional Note: Post-Debridement Measurements/Treatment - Nurse 1 - General Ulcer Assessment Start: 01/22/21 10:42 Freq: Status: Active Protocol: ARLETH Activity Type Activity Date Activity User E-Sign Co-Sign Detail Recorded Client Recorded Date Recorded By Document 01/22/21 10:45 KR [id number] 01/22/21 10:46 KR Document 01/29/21 10:18 DL Desktop 01/29/21 10:23 DL 01/22/21 01/29/21 10:45 10:18 - Today's Visit Information Type of service Follow-up Visit Follow-up Visit (Physician/GLASS CUTTING MACHINE 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 (Physician/GLASS CUTTING MACHINE OPERATOR ) ) Arrival Mode Wheelchair Wheelchair Transfer Assistance None Patient Identification Verified (Name & Yes Yes ) Patient Requires Transmission-Based No Precautions Finger Stick Blood Sugar(mg/dl) (if didnt check indicated): Blood Sugar Stated by Patient Vital Signs Temperature (97.8 F-99.1 F) 97.3 F L 98.2 F Temperature Source Oral Temporal Pulse Rate (60-100) 74 89 Pulse Location Monitor Monitor Respiratory Rate (12-18) 18 Respiratory rate source Observation Blood Pressure (90/60-120/80) 116/77 117/84 H Blood Pressure Mean (mm Hg) 90 95 Source Monitor Monitor Position Semi-Fowlers Blood Pressure Location Right Arm History Since Last Visit- (Skip if this is Patient's initial visit) Have you changed medications since your No No last visit? Any new allergies or adverse reactions No No Had a fall/change in ADL's that may No No increase risk of falls Signs or symptoms of abuse and/or No No neglect since last visit Have you been in the hospital since your No No last visit? Has dressing in place as prescribed Yes Yes Has compression in place as prescribed N/A Yes Has offloadiing in place as prescribed N/A Yes Experienced any changes in pain level or No No management Left Footwear Regular Shoe Right Footwear Regular Shoe Pain Scale: 0-10 Numeric Is Patient Pain Free? Yes Yes WC - Nurse 1 - General Ulcer Measurement Start: 01/22/21 10:42 Freq: Status: Active Protocol: Activity Type Activity Date Activity User E-Sign Co-Sign Detail Recorded Client Recorded Date Recorded By Document 01/22/21 10:45 KR [id number] 01/22/21 10:46 KR Document 01/29/21 10:18 DL Desktop 01/29/21 10:23 DL 01/22/21 01/29/21 10:45 10:18 Wound Center Nurse 1 #3 L Stump/Post op -Current Size (cm) - Length 2 1.5 -Current Size (cm) - Width 4.9 4 -Current Size (cm) - Depth 0.6 0.4 -Total Square Cm 9.8 6.0 -Photo Taken No -Exudate Amt Medium Medium -Exudate Type Serosanguineous Serosanguineous -Wound Margin Distinct, Distinct, Outline Outline Attached Attached -Granulation Amt Medium (34-66%) Medium (34-66%) -Granulation Quality [place] -Necrosis Amt Small (1-33%) Medium (34-66%) -Necrotic Tissue Type Adherent Slough Adherent Slough -Structure Exposed N/A -Texture (Yudy-wound Skin Appearance) Assessed, Scarring Scarring -Moisture (Yudy-wound Skin Appearance) No Abnormality, No Abnormality Assessed -Color (Yudy-wound Skin Appearance) No Abnormality, No Abnormality Assessed -Temperature (Yudy-wound Skin No Abnormality No Abnormality Appearance) (Pt Warm) (Pt Warm) -Tenderness on Palpation (Yudy-wound No No Skin Appearance) -Ulcer Cleansing Soap and Water Soap and Water -Foul Odor after Cleansing No No -Anesthetic Used 4% Lidocaine 4% Lidocaine Solution Solution WC - Nurse 2 - General Ulcer CM Notes Start: 01/22/21 10:42 Freq: Status: Active Protocol: Activity Type Activity Date Activity User E-Sign Co-Sign Detail Recorded Client Recorded Date Recorded By Document 01/22/21 11:52 MARSHALL [id number] 01/22/21 11:56 JF Document 01/29/21 10:36 MARSHALL [id number] 01/29/21 10:43 JF 01/22/21 01/29/21 11:52 10:36 Wound Center Nurse 2 #3 L Stump/Post op -Time 11:53 10:41 -Correct Patient Yes Yes -Correct Side, Site, Position Yes Yes -Correct Procedure Yes Yes -Procedure Performed Yes Yes -Type of Procedure Debridement Debridement -Clinical Debridement Subcutaneous Subcutaneous -Tissue Removed Subcutaneous Subcutaneous -Post Debridement (cm) - Length 2.7 2 -Post Debridement (cm) - Width 5 4.5 -Post Debridement (cm) - Depth 0.6 0.5 -Total Square (Post) (cm) 13.5 9.0 -Area of Debridement (cm) - Length 2.7 2 -Area of Debridement (cm) - Width 5 4.5 -Total Square (Area) (cm) 13.5 9.0 -Tunneling No No -Undermining/Tunneling No No -Circular Undermining No No -Wound/Ulcer Outcome Not Healed Not Healed -Ulcer Cleansing Rinsed/ Rinsed/ Irrigated with Irrigated with Saline Saline -Foul Odor after Cleansing No No -Bioengineered Tissue Yes Yes -Type of Bioengineered Tissue Theraskin Theraskin -Expiration Date 02/05/24 03/08/24 -Product Lot Number [id number] -Percent Used 100 100 -Lot number of Saline Used [id number] -Bleeding Controlled with Pressure Pressure -Offloading No No -Treatment Response Procedure Procedure Tolerated Well Tolerated Well -Debridement - Subq, 1st 20sq cm No No -Apply Skin Sub - 1st 25 sq cm - Legs 1 1 -Theraskin (per sq cm) 13 13 Pain Scale: 0-10 Numeric Is Patient Pain Free? Yes Yes - Nurse 3 - General Ulcer D/C NN Start: 01/22/21 10:42 Freq: Status: Active Protocol: Activity Type Activity Date Activity User E-Sign Co-Sign Detail Recorded Client Recorded Date Recorded By Document 01/29/21 11:05 DL [id number] 01/29/21 11:06 DL 01/29/21 11:05 Wound Care Nurse 3 #3 L Stump/Post op -Foul Odor after Cleansing No -Other Dressing Theraskin -Primary Dressing Covered/Secured with Dry Gauze & Roll Gauze, Secured with Tape Treatment Response Procedure Tolerated Well Pain Scale: 0-10 Numeric Is Patient Pain Free? Yes - Visit Discharge Discharge Condition Stable Ambulatory Status Wheelchair Transportation Private Auto Notes: Vac appplied at [facility] upon retrun today Orders Sent Yes Assessment/Plan Assessment/Plan (1) Diabetes mellitus with ulcer of lower extremity: CODE(S): E11.622 - Type 2 diabetes mellitus with other skin ulcer; L97.909 - Non-pressure chronic ulcer of unspecified part of unspecified lower leg with unspecified severity (2) Pressure ulcer of BKA stump, stage 4: CODE(S): T87.89 - Other complications of amputation stump; L89.894 - Pressure ulcer of other site, stage 4 (3) Below-knee amputation of left lower extremity: CODE(S): S88.112A - Complete traumatic amputation at level between knee and ankle, left lower leg, initial encounter (4) Diabetes: CODE(S): E11.9 - Type 2 diabetes mellitus without complications (5) Smoker: CODE(S): F17.200 - Nicotine dependence, unspecified, uncomplicated PLAN: Wound care - Theraskin #4 placed today secured with dermabond, steri strips and covered with a wound veil that was secured with steri strips. Restart wound VAC at 125 mmHg to be changed 2-3 times per week. AMIE wrap for compression. Periwound improved after a week holiday from the wound VAC. Completed the Zosyn IV and Doxycycline po on 12/18/20. Encourage high protein diet to help with wound healing an to help keep better control of blood sugars. He currently is homeless, so he needs to stay in a facility due to him requiring the wound VAC and for better management of his ulcer and medication management. He is concerned he will be released this week. A letter was written for medical necessity for care. Follow up 1 week
[2021-02-05 09:03] VITALS: BP 139/70; PULSE 64; RESP 16; TEMP 36.2
--- NOTE | 2021-02-05 15:44 | PN.PCM_ITS ---
History of Present Illness Date of Service: 02/05/21 Chief Complaint: Ulcer on left BKA after I&D of a diabetic abscess/hematoma on 11/06/20 History of Wound: Surgery on 11/06/20 - Surgical preparation left below knee amputation stump with incision and drainage and excisional debridement with partial ostectomy tibia for osteomyelitis and evacuation hematoma for draining diabetic ulcer abscess. (He had his Left BKA on 04/17/20). Operative tissue and bone cultures were negative. Wound cultures from 11/02/20 positive for MSSA, Enterobacter cloacae complex, and Corynebacterium amycolatum. He is at [facility] [facility], Zosyn IV and Doxycycline po which are now completed. He has had a plateau in the healing process and will proceed with using Theraskin and advanced skin substitute graft to help with wound healing. Wound care - Theraskin #5 placed today secured with dermabond, steri strips and covered with a wound veil that was secured with steri strips. VAC holiday due to yudy wound being so excoriated. Will cover Theraskin with ABD and use AMIE wrap for compression. Prealbumin 9.9 on 11/07/20. Today he denies any fever. He states his appetite is good. Progress of Wound: Improved. Periwound excoriated again due to wound VAC drape. Will take a VAC holiday Objective Data Objective Data Vital Signs: Vital Signs Temp Pulse Resp BP 97.2 F L 64 16 139/70 H 02/05/21 09:03 02/05/21 09:03 02/05/21 09:03 02/05/21 09:03 Oxygen Delivery Method Room Air Charges/Coding Procedures Integumentary 150xxx-152xx: 26685 Skin sub graft trnk/arm/leg (58 modifier) Physical Exam Const alert and oriented x3 HEENT normocephalic Resp normal respiratory effort Cardio regular rate GI non-tender Extremity normal capillary refill Skin Wound Narrative: Left BKA ulcer is smaller. There is hypergranulation of the tissue surrounding the tissue, suspect that when the wound VAC is placed, they are placing on the wound veil of the Theraskin not just on the ulcer, therefore healed tissue has the VAC placed on it. His periwound is dry, scabby and excoriated from the drape of the wound VAC. Neuro CN's II-XII intact bilaterally Psych Appearance: grossly normal Debridement Note Debridement Note Wound debrided: BKA ulcer Laterality: Left Type of Debridement: Excisional debridement Anesthesia Used: 5% Lidocaine Gel Depth: Down to and including healthy tissue and in the subcutaneous layer Percentage of wound debrided: 100 Instrument Used: 3mm curette Tissue Removed: Subcutaneous tissue and slough Severity: Fat Layer Exposed Amount of bleeding with debridement: Mild Bleeding Controlled with: Pressure Patient tolerated procedure: Patient tolerated procedure well Post-Debridement Measurements and Additional Note: Post-Debridement Measurements/Treatment - Nurse 1 - General Ulcer Assessment Start: 01/22/21 10:42 Freq: Status: Active Protocol: ARLETH Activity Type Activity Date Activity User E-Sign Co-Sign Detail Recorded Client Recorded Date Recorded By Document 01/22/21 10:45 NGUYỄN [id number] 01/22/21 10:46 KR Document 01/29/21 10:18 DL Desktop 01/29/21 10:23 DL Document 02/05/21 09:03 [facility] [id number] 02/05/21 09:09 [facility] 01/22/21 01/29/21 02/05/21 10:45 10:18 09:03 - Today's Visit Information Type of service Follow-up Visit Follow-up Visit Follow-up Visit (Physician/[employer] (Physician/[employer] (Physician/[employer] ) ) ) Arrival Mode Wheelchair Wheelchair Wheelchair Transfer Assistance None Other Transfer Assist (Other) stand by Accompanied by activities staff from the [facility] Patient Identification Verified (Name & Yes Yes Yes ) Patient Requires Transmission-Based No No Precautions Finger Stick Blood Sugar(mg/dl) (if didnt check indicated): Blood Sugar Stated by Patient Vital Signs Temperature (97.8 F-99.1 F) 97.3 F L 98.2 F 97.2 F L Temperature Source Oral Temporal Temporal Pulse Rate (60-100) 74 89 64 Pulse Location Monitor Monitor Monitor Respiratory Rate (12-18) 18 16 Respiratory rate source Observation Observation Oxygen Delivery Method Room Air Blood Pressure (90/60-120/80) 116/77 117/84 H 139/70 H Blood Pressure Mean (mm Hg) 90 95 93 Source Monitor Monitor Monitor Position Semi-Fowlers Sitting Blood Pressure Location Right Arm Left Arm History Since Last Visit- (Skip if this is Patient's initial visit) Have you changed medications since your No No No last visit? Any new allergies or adverse reactions No No No Had a fall/change in ADL's that may No No No increase risk of falls Signs or symptoms of abuse and/or No No No neglect since last visit Have you been in the hospital since your No No No last visit? Has dressing in place as prescribed Yes Yes Yes Has compression in place as prescribed N/A Yes Yes Has offloadiing in place as prescribed N/A Yes N/A Experienced any changes in pain level or No No No management Left Footwear Regular Shoe Right Footwear Regular Shoe Pain Scale: 0-10 Numeric Is Patient Pain Free? Yes Yes Yes WC - Nurse 1 - General Ulcer Measurement Start: 01/22/21 10:42 Freq: Status: Active Protocol: Activity Type Activity Date Activity User E-Sign Co-Sign Detail Recorded Client Recorded Date Recorded By Document 01/22/21 10:45 NGUYỄN [id number] 01/22/21 10:46 KR Document 01/29/21 10:18 DL Desktop 01/29/21 10:23 DL Document 02/05/21 09:03 [facility] [id number] 02/05/21 09:09 [facility] 01/22/21 01/29/21 02/05/21 10:45 10:18 09:03 Wound Center Nurse 1 #3 L Stump/Post op -Combined with other wound No -Current Size (cm) - Length 2 1.5 1 -Current Size (cm) - Width 4.9 4 3.7 -Current Size (cm) - Depth 0.6 0.4 1 -Total Square Cm 9.8 6.0 3.7 -Photo Taken No No -Epithelialization Small 1-33% -Tunneling No -Undermining/Tunneling Yes -Undermining/Tunneling Starts (O'clock 11 ) -Undermining/Tunneling Ends (O'clock) 1 -Maximum Distance (cm) 1.4 -Circular Undermining No -Exudate Amt Medium Medium Large -Exudate Type Serosanguineous Serosanguineous Serous -Wound Margin Distinct, Distinct, Thickened Outline Outline Attached Attached -Granulation Amt Medium (34-66%) Medium (34-66%) Large (67-100%) -Granulation Quality [place] Red Red -Slough/Fibrin Yes -Necrosis Amt Small (1-33%) Medium (34-66%) Small (1-33%) -Necrotic Tissue Type Adherent Slough Adherent Slough Adherent Slough -Structure Exposed N/A -Texture (Yudy-wound Skin Appearance) Assessed, Scarring Assessed, Scarring Scarring -Moisture (Yudy-wound Skin Appearance) No Abnormality, No Abnormality Assessed Assessed -Color (Yudy-wound Skin Appearance) No Abnormality, No Abnormality Assessed Assessed -Temperature (Yudy-wound Skin No Abnormality No Abnormality No Abnormality Appearance) (Pt Warm) (Pt Warm) (Pt Warm) -Tenderness on Palpation (Yudy-wound No No No Skin Appearance) -Ulcer Cleansing Soap and Water Soap and Water Soap and Water -Foul Odor after Cleansing No No No -Anesthetic Used 4% Lidocaine 4% Lidocaine 4% Lidocaine Solution Solution Solution WC - Nurse 2 - General Ulcer CM Notes Start: 01/22/21 10:42 Freq: Status: Active Protocol: Activity Type Activity Date Activity User E-Sign Co-Sign Detail Recorded Client Recorded Date Recorded By Document 01/22/21 11:52 [id number] 01/22/21 11:56 Document 01/29/21 10:36 [id number] 01/29/21 10:43 Document 02/05/21 09:36 [id number] 02/05/21 09:39 01/22/21 01/29/21 02/05/21 11:52 10:36 09:36 Wound Center Nurse 2 #3 L Stump/Post op -Time 11:53 10:41 09:36 -Correct Patient Yes Yes Yes -Correct Side, Site, Position Yes Yes Yes -Correct Procedure Yes Yes Yes -Procedure Performed Yes Yes Yes -Type of Procedure Debridement Debridement Debridement -Clinical Debridement Subcutaneous Subcutaneous Subcutaneous -Tissue Removed Subcutaneous Subcutaneous Subcutaneous -Post Debridement (cm) - Length 2.7 2 1.7 -Post Debridement (cm) - Width 5 4.5 4.5 -Post Debridement (cm) - Depth 0.6 0.5 0.1 -Total Square (Post) (cm) 13.5 9.0 7.65 -Area of Debridement (cm) - Length 2.7 2 1.7 -Area of Debridement (cm) - Width 5 4.5 4.5 -Total Square (Area) (cm) 13.5 9.0 7.65 -Tunneling No No -Undermining/Tunneling No No -Circular Undermining No No No -Wound/Ulcer Outcome Not Healed Not Healed Not Healed -Ulcer Cleansing Rinsed/ Rinsed/ Rinsed/ Irrigated with Irrigated with Irrigated with Saline Saline Saline -Foul Odor after Cleansing No No No -Bioengineered Tissue Yes Yes Yes -Type of Bioengineered Tissue Theraskin Theraskin Theraskin -Expiration Date 02/05/24 03/08/24 05/17/24 -Product Lot Number [id number] -Percent Used 100 100 100 -Lot number of Saline Used [id number] -Bleeding Controlled with Pressure Pressure Pressure -Offloading No No Yes -Type of Offloading Knee Walker -Treatment Response Procedure Procedure Procedure Tolerated Well Tolerated Well Tolerated Well -Debridement - Subq, 1st 20sq cm No No No -Apply Skin Sub - 1st 25 sq cm - Legs 1 1 1 -Theraskin (per sq cm) 13 13 6 Pain Scale: 0-10 Numeric Is Patient Pain Free? Yes Yes Yes - Nurse 3 - General Ulcer D/C NN Start: 01/22/21 10:42 Freq: Status: Active Protocol: Activity Type Activity Date Activity User E-Sign Co-Sign Detail Recorded Client Recorded Date Recorded By Document 01/29/21 11:05 DL [id number] 01/29/21 11:06 DL Document 02/05/21 09:51 KR [id number] 02/05/21 09:51 KR 01/29/21 02/05/21 11:05 09:51 Wound Care Nurse 3 #3 L Stump/Post op -Ulcer Cleansing Rinsed/ Irrigated with Saline -Foul Odor after Cleansing No -Other Dressing Theraskin ABD pad -Primary Dressing Covered/Secured with Dry Gauze & Dry Gauze & Roll Gauze, Roll Gauze, Secured with Secured with Tape Tape Treatment Response Procedure Tolerated Well Pain Scale: 0-10 Numeric Is Patient Pain Free? Yes Yes - Visit Discharge Discharge Condition Stable Stable Ambulatory Status Wheelchair Wheelchair Transportation Private Auto Private Auto Accompanied by Notes: [facility] appplied at [facility] upon retrun today Orders Sent Yes Assessment/Plan Assessment/Plan (1) Pressure ulcer of BKA stump, stage 4: CODE(S): T87.89 - Other complications of amputation stump; L89.894 - Pressure ulcer of other site, stage 4 (2) Below-knee amputation of left lower extremity: CODE(S): S88.112A - Complete traumatic amputation at level between knee and ankle, left lower leg, initial encounter (3) Diabetes: CODE(S): E11.9 - Type 2 diabetes mellitus without complications (4) Smoker: CODE(S): F17.200 - Nicotine dependence, unspecified, uncomplicated PLAN: Wound care - Theraskin #5 placed today secured with dermabond, steri strips and covered with a wound veil that was secured with steri strips. Periwound is excoriated with dry, scabby areas. Will take a wound VAC holiday. Place A&D ointment 1-2 times per day on the periwound. Concerned also that there is hypergranulation of the healed tissue surrounding the ulcer, possibly because the wound VAC maybe being placed on the healed tissue because of the wound veil. Completed the Zosyn IV and Doxycycline po on 12/18/20. Encourage high protein diet to help with wound healing an to help keep better control of blood sugars. He currently is homeless, so he needs to stay in a facility for better management of his ulcer and medication management. Especially because we ar using an advanced wound healing skin product. A letter was written for medical necessity for care was written last week. Follow up 1 week
[2021-02-12 08:47] VITALS: BP 129/76; PULSE 65; RESP 16; TEMP 36.5
--- NOTE | 2021-02-12 14:16 | PCM.WC.PN ---
History of Present Illness Date of Service: 02/12/21 Chief Complaint: Ulcer on left BKA after I&D of a diabetic abscess/hematoma on 11/06/20 History of Wound: Surgery on 11/06/20 - Surgical preparation left below knee amputation stump with incision and drainage and excisional debridement with partial ostectomy tibia for osteomyelitis and evacuation hematoma for draining diabetic ulcer abscess. (He had his Left BKA on 04/17/20). Operative tissue and bone cultures were negative. Wound cultures from 11/02/20 positive for MSSA, Enterobacter cloacae complex, and Corynebacterium amycolatum. He is at [facility], Zosyn IV and Doxycycline po which are now completed. He has had a plateau in the healing process and will proceed with using Theraskin and advanced skin substitute graft to help with wound healing. Wound care - Theraskin #6 placed today secured with dermabond, steri strips and covered with a wound veil that was secured with steri strips. Discontinue wound VAC due to yudy wound continues to be excoriated even after the VAC holiday. Will cover Theraskin with ABD and use CHALINO wrap for compression. Prealbumin 9.9 on 11/07/20. Today he denies any fever. He states his appetite is good. Progress of Wound: Left BKA stump ulcer has decreased in size. Periwound continues to be excoriated even after taking a wound VAC holiday. Objective Data Objective Data Vital Signs: Vital Signs Temp Pulse Resp BP 97.7 F L 65 16 129/76 H 02/12/21 08:47 02/12/21 08:47 02/12/21 08:47 02/12/21 08:47 Oxygen Delivery Method Room Air Charges/Coding Procedures Integumentary 150xxx-152xx: 13391 Skin sub graft trnk/arm/leg Physical Exam Const alert and oriented x3 General Appearance: cooperative HEENT normocephalic Lymph Lymphatic: no lymphedema noted Resp normal respiratory effort Cardio regular rate GI non-tender Palpation: soft Extremity normal capillary refill General Extremity: Negative for edema Skin Wound Narrative: Left BKA stump ulcer is decreasing in size. There is slight undermining around 12 o'clock. Neuro CN's II-XII intact bilaterally Psych Appearance: grossly normal Debridement Note Debridement Note Wound debrided: BKA stump ulcer Laterality: Left Type of Debridement: Excisional debridement Anesthesia Used: 5% Lidocaine Gel Depth: Down to and including healthy tissue and in the subcutaneous layer Percentage of wound debrided: 100 Instrument Used: 3mm curette Tissue Removed: Subcutaneous tissue and slough Severity: Fat Layer Exposed Amount of bleeding with debridement: Mild Bleeding Controlled with: Pressure Patient tolerated procedure: Patient tolerated procedure well Post-Debridement Measurements and Additional Note: Post-Debridement Measurements/Treatment - Nurse 1 - General Ulcer Assessment Start: 01/22/21 10:42 Freq: Status: Active Protocol: ARLETH Activity Type Activity Date Activity User E-Sign Co-Sign Detail Recorded Client Recorded Date Recorded By Document 01/22/21 10:45 KR [id number] 01/22/21 10:46 KR Document 01/29/21 10:18 DL Desktop 01/29/21 10:23 DL Document 02/05/21 09:03 [facility] [id number] 02/05/21 09:09 [facility] Document 02/12/21 08:47 [facility] [id number] 02/12/21 09:02 [facility] 01/22/21 01/29/21 02/05/21 10:45 10:18 09:03 - Today's Visit Information Type of service Follow-up Visit Follow-up Visit Follow-up Visit (Physician/CATALYST MANUFACTURING OPERATOR (Physician/CATALYST MANUFACTURING OPERATOR (Physician/CATALYST MANUFACTURING OPERATOR ) ) ) Arrival Mode Wheelchair Wheelchair Wheelchair Transfer Assistance None Other Transfer Assist (Other) stand by Accompanied by activities staff from [facility] Patient Identification Verified (Name & Yes Yes Yes ) Patient Requires Transmission-Based No No Precautions Finger Stick Blood Sugar(mg/dl) (if didnt check indicated): Blood Sugar Stated by Patient Vital Signs Temperature (97.8 F-99.1 F) 97.3 F L 98.2 F 97.2 F L Temperature Source Oral Temporal Temporal Pulse Rate (60-100) 74 89 64 Pulse Location Monitor Monitor Monitor Respiratory Rate (12-18) 18 16 Respiratory rate source Observation Observation Oxygen Delivery Method Room Air Blood Pressure (90/60-120/80) 116/77 117/84 H 139/70 H Blood Pressure Mean (mm Hg) 90 95 93 Source Monitor Monitor Monitor Position Semi-Fowlers Sitting Blood Pressure Location Right Arm Left Arm History Since Last Visit- (Skip if this is Patient's initial visit) Have you changed medications since your No No No last visit? Any new allergies or adverse reactions No No No Had a fall/change in ADL's that may No No No increase risk of falls Signs or symptoms of abuse and/or No No No neglect since last visit Have you been in the hospital since your No No No last visit? Has dressing in place as prescribed Yes Yes Yes Has compression in place as prescribed N/A Yes Yes Has offloadiing in place as prescribed N/A Yes N/A Experienced any changes in pain level or No No No management Left Footwear Regular Shoe Right Footwear Regular Shoe Pain Scale: 0-10 Numeric Is Patient Pain Free? Yes Yes Yes 02/12/21 08:47 WC - Today's Visit Information Type of service Follow-up Visit (Physician/CATALYST MANUFACTURING OPERATOR ) Arrival Mode Wheelchair Transfer Assistance None Transfer Assist (Other) Accompanied by caregiver Patient Identification Verified (Name & Yes ) Patient Requires Transmission-Based Precautions Finger Stick Blood Sugar(mg/dl) (if indicated): Blood Sugar Vital Signs Temperature (97.8 F-99.1 F) 97.7 F L Temperature Source Temporal Pulse Rate (60-100) 65 Pulse Location Monitor Respiratory Rate (12-18) 16 Respiratory rate source Observation Oxygen Delivery Method Room Air Blood Pressure (90/60-120/80) 129/76 H Blood Pressure Mean (mm Hg) 93 Source Monitor Position Sitting Blood Pressure Location Left Forearm History Since Last Visit- (Skip if this is Patient's initial visit) Have you changed medications since your No last visit? Any new allergies or adverse reactions No Had a fall/change in ADL's that may No increase risk of falls Signs or symptoms of abuse and/or No neglect since last visit Have you been in the hospital since your No last visit? Has dressing in place as prescribed Yes Has compression in place as prescribed Yes Has offloadiing in place as prescribed N/A Experienced any changes in pain level or No management Left Footwear Right Footwear Pain Scale: 0-10 Numeric Is Patient Pain Free? Yes - Nurse 1 - General Ulcer Measurement Start: 01/22/21 10:42 Freq: Status: Active Protocol: Activity Type Activity Date Activity User E-Sign Co-Sign Detail Recorded Client Recorded Date Recorded By Document 01/22/21 10:45 [id number] 01/22/21 10:46 KR Document 01/29/21 10:18 DL Desktop 01/29/21 10:23 DL Document 02/05/21 09:03 [facility] [id number] 02/05/21 09:09 BM Document 02/12/21 08:47 [facility] [id number] 02/12/21 09:02 BM 01/22/21 01/29/21 02/05/21 10:45 10:18 09:03 Wound Center Nurse 1 #3 L Stump/Post op -Combined with other wound No -Current Size (cm) - Length 2 1.5 1 -Current Size (cm) - Width 4.9 4 3.7 -Current Size (cm) - Depth 0.6 0.4 1 -Total Square Cm 9.8 6.0 3.7 -Photo Taken No No -Epithelialization Small 1-33% -Tunneling No -Undermining/Tunneling Yes -Undermining/Tunneling Starts (O'clock 11 ) -Undermining/Tunneling Ends (O'clock) 1 -Maximum Distance (cm) 1.4 -Circular Undermining No -Exudate Amt Medium Medium Large -Exudate Type Serosanguineous Serosanguineous Serous -Wound Margin Distinct, Distinct, Thickened Outline Outline Attached Attached -Granulation Amt Medium (34-66%) Medium (34-66%) Large (67-100%) -Granulation Quality Mccall Red Red -Slough/Fibrin Yes -Necrosis Amt Small (1-33%) Medium (34-66%) Small (1-33%) -Necrotic Tissue Type Adherent Slough Adherent Slough Adherent Slough -Structure Exposed N/A -Texture (Yudy-wound Skin Appearance) Assessed, Scarring Assessed, Scarring Scarring -Moisture (Yudy-wound Skin Appearance) No Abnormality, No Abnormality Assessed Assessed -Color (Yudy-wound Skin Appearance) No Abnormality, No Abnormality Assessed Assessed -Temperature (Yudy-wound Skin No Abnormality No Abnormality No Abnormality Appearance) (Pt Warm) (Pt Warm) (Pt Warm) -Tenderness on Palpation (Yudy-wound No No No Skin Appearance) -Ulcer Cleansing Soap and Water Soap and Water Soap and Water -Foul Odor after Cleansing No No No -Anesthetic Used 4% Lidocaine 4% Lidocaine 4% Lidocaine Solution Solution Solution 02/12/21 08:47 Wound Center Nurse 1 #3 L Stump/Post op -Combined with other wound No -Current Size (cm) - Length 1 -Current Size (cm) - Width 2.9 -Current Size (cm) - Depth 0.5 -Total Square Cm 2.9 -Photo Taken No -Epithelialization Small 1-33% -Tunneling No -Undermining/Tunneling No -Undermining/Tunneling Starts (O'clock ) -Undermining/Tunneling Ends (O'clock) -Maximum Distance (cm) -Circular Undermining No -Exudate Amt Medium -Exudate Type Serosanguineous -Wound Margin Thickened & Rolled Under -Granulation Amt Medium (34-66%) -Granulation Quality Hyper- granulation,Red -Slough/Fibrin Yes -Necrosis Amt Small (1-33%) -Necrotic Tissue Type Adherent Slough -Structure Exposed -Texture (Yudy-wound Skin Appearance) Assessed, Excoriation, Scarring -Moisture (Yudy-wound Skin Appearance) Assessed, Maceration,Dry/ Scaly -Color (Yudy-wound Skin Appearance) Assessed, Erythema,Palor -Temperature (Yudy-wound Skin No Abnormality Appearance) (Pt Warm) -Tenderness on Palpation (Yudy-wound No Skin Appearance) -Ulcer Cleansing Soap and Water -Foul Odor after Cleansing No -Anesthetic Used 5% Lidocaine Gel WC - Nurse 2 - General Ulcer CM Notes Start: 01/22/21 10:42 Freq: Status: Active Protocol: Activity Type Activity Date Activity User E-Sign Co-Sign Detail Recorded Client Recorded Date Recorded By Document 01/22/21 11:52 [id number] 01/22/21 11:56 Document 01/29/21 10:36 [id number] 01/29/21 10:43 Document 02/05/21 09:36 [id number] 02/05/21 09:39 Document 02/12/21 09:09 [id number] 02/12/21 09:21 Edit Result 02/12/21 09:09 JF (1) [id number] 02/12/21 14:00 JF (1) #3 L Stump/Post op - Other => 25% of Theraskin => wasted 01/22/21 01/29/21 02/05/21 11:52 10:36 09:36 Wound Center Nurse 2 #3 L Stump/Post op -Time 11:53 10:41 09:36 -Correct Patient Yes Yes Yes -Correct Side, Site, Position Yes Yes Yes -Correct Procedure Yes Yes Yes -Procedure Performed Yes Yes Yes -Type of Procedure Debridement Debridement Debridement -Clinical Debridement Subcutaneous Subcutaneous Subcutaneous -Tissue Removed Subcutaneous Subcutaneous Subcutaneous -Post Debridement (cm) - Length 2.7 2 1.7 -Post Debridement (cm) - Width 5 4.5 4.5 -Post Debridement (cm) - Depth 0.6 0.5 0.1 -Total Square (Post) (cm) 13.5 9.0 7.65 -Area of Debridement (cm) - Length 2.7 2 1.7 -Area of Debridement (cm) - Width 5 4.5 4.5 -Total Square (Area) (cm) 13.5 9.0 7.65 -Tunneling No No -Undermining/Tunneling No No -Circular Undermining No No No -Wound/Ulcer Outcome Not Healed Not Healed Not Healed -Ulcer Cleansing Rinsed/ Rinsed/ Rinsed/ Irrigated with Irrigated with Irrigated with Saline Saline Saline -Foul Odor after Cleansing No No No -Bioengineered Tissue Yes Yes Yes -Type of Bioengineered Tissue Theraskin Theraskin Theraskin -Expiration Date 02/05/24 03/08/24 05/17/24 -Product Lot Number [id number] -Percent Used 100 100 100 -Lot number of Saline Used [id number] -Bleeding Controlled with Pressure Pressure Pressure -Other -Offloading No No Yes -Type of Offloading Knee Walker -Treatment Response Procedure Procedure Procedure Tolerated Well Tolerated Well Tolerated Well -Debridement - Subq, 1st 20sq cm No No No -Apply Skin Sub - 1st 25 sq cm - Legs 1 1 1 -Theraskin (per sq cm) 13 13 6 Pain Scale: 0-10 Numeric Is Patient Pain Free? Yes Yes Yes 02/12/21 09:09 Wound Center Nurse 2 #3 L Stump/Post op -Time 09:10 -Correct Patient Yes -Correct Side, Site, Position Yes -Correct Procedure Yes -Procedure Performed Yes -Type of Procedure Debridement -Clinical Debridement Subcutaneous -Tissue Removed Epidermis, Subcutaneous -Post Debridement (cm) - Length 1.5 -Post Debridement (cm) - Width 3.3 -Post Debridement (cm) - Depth 0.1 -Total Square (Post) (cm) 4.95 -Area of Debridement (cm) - Length 1.5 -Area of Debridement (cm) - Width 3.3 -Total Square (Area) (cm) 4.95 -Tunneling No -Undermining/Tunneling No -Circular Undermining No -Wound/Ulcer Outcome Not Healed -Ulcer Cleansing Rinsed/ Irrigated with Saline -Foul Odor after Cleansing No -Bioengineered Tissue Yes -Type of Bioengineered Tissue Theraskin -Expiration Date 07/20/24 -Product Lot Number [id number] -Percent Used 100 -Lot number of Saline Used [id number] -Bleeding Controlled with Pressure -Other 25% of Theraskin wasted -Offloading Yes -Type of Offloading Knee Walker -Treatment Response Procedure Tolerated Well -Debridement - Subq, 1st 20sq cm No -Apply Skin Sub - 1st 25 sq cm - Legs 1 -Theraskin (per sq cm) 26 Pain Scale: 0-10 Numeric Is Patient Pain Free? Yes - Nurse 3 - General Ulcer D/C NN Start: 01/22/21 10:42 Freq: Status: Active Protocol: Activity Type Activity Date Activity User E-Sign Co-Sign Detail Recorded Client Recorded Date Recorded By Document 01/29/21 11:05 DL [id number] 01/29/21 11:06 DL Document 02/05/21 09:51 KR [id number] 02/05/21 09:51 KR Document 02/12/21 09:34 [facility] [id number] 02/12/21 09:35 [facility] 01/29/21 02/05/21 02/12/21 11:05 09:51 09:34 Wound Care Nurse 3 #3 L Stump/Post op -Ulcer Cleansing Rinsed/ Irrigated with Saline -Foul Odor after Cleansing No -Other Dressing Theraskin ABD pad theraskin -Primary Dressing Covered/Secured with Dry Gauze & Dry Gauze & Secured with Roll Gauze, Roll Gauze, Tape,Other Secured with Secured with Tape Tape -Other Covering abd Left -Compression Wrap Chalino Wrap Treatment Response Procedure Procedure Tolerated Well Tolerated Well Pain Scale: 0-10 Numeric Is Patient Pain Free? Yes Yes Yes WC - Visit Discharge Discharge Condition Stable Stable Stable Ambulatory Status Wheelchair Wheelchair Wheelchair Transportation Private Auto Private Auto [facility] transport Accompanied by Notes: Vac appplied at [facility] upon retrun today Orders Sent Yes Assessment/Plan Assessment/Plan (1) Diabetes mellitus with ulcer of lower extremity: CODE(S): E11.622 - Type 2 diabetes mellitus with other skin ulcer; L97.909 - Non-pressure chronic ulcer of unspecified part of unspecified lower leg with unspecified severity (2) Pressure ulcer of BKA stump, stage 4: CODE(S): T87.89 - Other complications of amputation stump; L89.894 - Pressure ulcer of other site, stage 4 (3) Diabetes: CODE(S): E11.9 - Type 2 diabetes mellitus without complications (4) Smoker: CODE(S): F17.200 - Nicotine dependence, unspecified, uncomplicated (5) Below-knee amputation of left lower extremity: CODE(S): S88.112A - Complete traumatic amputation at level between knee and ankle, left lower leg, initial encounter PLAN: Wound care - Theraskin #6 placed today secured with dermabond, steri strips and covered with a wound veil that was secured with steri strips. Periwound continues to be excoriated even after a wound VAC holiday. Will discontinue the wound VAC. Place A&D ointment 1-2 times per day on the periwound. Use an CHALINO wrap on the left BKA stump. The periwound needs to be washed daily with soap and water before the A&D ointment, but make sure not to get the wound veil wet. Completed the Zosyn IV and Doxycycline po on 12/18/20. Encourage high protein diet to help with wound healing an to help keep better control of blood sugars. He currently is homeless, so he needs to stay in a facility for better management of his ulcer and medication management. Especially because we are using an advanced wound healing skin product. A letter was written for medical necessity for care was written. Follow up 1 week
== END 2021-02-20 23:59 ==
LOC: WC 08:45
PROVIDERS: PCP Family Medicine; Visit Provider Nurse Practitioner Family
DX: T87.89 Other complications of amputation stump (principal); Y84.8 Other medical procedures as the cause of abnormal reaction of the patient, or of later complication, without mention of misadventure at the time of the procedure; E11.622 Type 2 diabetes mellitus with other skin ulcer; F17.200 Nicotine dependence, unspecified, uncomplicated; L89.894 Pressure ulcer of other site, stage 4; Z59.01 Sheltered homelessness
CPT/HCPCS: 15271; Q4121

== ENCOUNTER 2021-03-19 09:00 | Outpatient (RCR) | payer MEDICARE, MEDICAID, SELFPAY ==
[2021-02-21 00:31] VITALS: BP 129/76; PULSE 65; RESP 16; TEMP 36.5
[2021-02-22 14:15] VITALS: BP 124/79; PULSE 75; TEMP 36.3
--- NOTE | 2021-02-22 19:07 | PCM.WC.PN ---
History of Present Illness Date of Service: 02/22/21 Chief Complaint: Ulcer on left BKA after I&D of a diabetic abscess/hematoma on 11/06/20 History of Wound: Surgery on 11/06/20 - Surgical preparation left below knee amputation stump with incision and drainage and excisional debridement with partial ostectomy tibia for osteomyelitis and evacuation hematoma for draining diabetic ulcer abscess. (He had his Left BKA on 04/17/20). Operative tissue and bone cultures were negative. Wound cultures from 11/02/20 positive for MSSA, Enterobacter cloacae complex, and Corynebacterium amycolatum. He is at [facility], Zosyn IV and Doxycycline po which are now completed. He has had a plateau in the healing process and will proceed with using Theraskin and advanced skin substitute graft to help with wound healing. Wound care - Theraskin #6 placed today secured with dermabond, steri strips and covered with a wound veil that was secured with steri strips. Discontinue wound VAC due to yudy wound continues to be excoriated even after the VAC holiday. Will cover Theraskin with ABD and use AMIE wrap for compression. Prealbumin 9.9 on 11/07/20. Today he denies any fever. He states his appetite is good. Progress of Wound: Courtesy visit for Sherly CANO?TheraSkin #7 placed today, no new concerns Objective Data Objective Data Vital Signs: Vital Signs Temp Pulse Resp BP 97.3 F L 75 16 124/79 H 02/22/21 14:15 02/22/21 14:15 02/21/21 00:31 02/22/21 14:15 Charges/Coding Procedures Integumentary 150xxx-152xx: 54375 Skin sub graft trnk/arm/leg Physical Exam Const alert and oriented x3 General Appearance: cooperative HEENT normocephalic Lymph Lymphatic: no lymphedema noted Resp normal respiratory effort Cardio regular rate GI non-tender Palpation: soft Extremity normal capillary refill General Extremity: Negative for edema Skin Wound Narrative: Left BKA stump ulcer is decreasing in size. There is slight undermining around 12 o'clock. Neuro CN's II-XII intact bilaterally Psych Appearance: grossly normal Debridement Note Debridement Note Wound debrided: Left lower extremity stump ulcer Laterality: Left Type of Debridement: Excisional debridement Anesthesia Used: 5% Lidocaine Gel Depth: in the subcutaneous layer Percentage of wound debrided: 100 Instrument Used: 5mm curette Tissue Removed: Slough and devitalized tissue Severity: Fat Layer Exposed Amount of bleeding with debridement: Mild Bleeding Controlled with: Pressure Patient tolerated procedure: Patient tolerated procedure well Post-Debridement Measurements and Additional Note: Post-Debridement Measurements/Treatment - Nurse 1 - General Ulcer Assessment Start: 02/22/21 14:14 Freq: Status: Active Protocol: ARLETH Activity Type Activity Date Activity User E-Sign Co-Sign Detail Recorded Client Recorded Date Recorded By Document 02/22/21 14:15 KATERINA [id number] 02/22/21 14:18 KATERINA 02/22/21 14:15 WC - Today's Visit Information Type of service Follow-up Visit (Physician/CONSTRUCTION SPECIALIST ) Arrival Mode Wheelchair Patient Identification Verified (Name & Yes ) Patient Requires Transmission-Based No Precautions Vital Signs Temperature (97.8 F-99.1 F) 97.3 F L Temperature Source Temporal Pulse Rate (60-100) 75 Pulse Location Monitor Blood Pressure (90/60-120/80) 124/79 H Blood Pressure Mean (mm Hg) 94 Source Monitor History Since Last Visit- (Skip if this is Patient's initial visit) Have you changed medications since your No last visit? Any new allergies or adverse reactions No Had a fall/change in ADL's that may No increase risk of falls Signs or symptoms of abuse and/or No neglect since last visit Have you been in the hospital since your No last visit? Has dressing in place as prescribed Yes Has compression in place as prescribed Yes Has offloadiing in place as prescribed N/A Experienced any changes in pain level or No management Left Footwear Regular Shoe - Nurse 1 - General Ulcer Measurement Start: 02/22/21 14:14 Freq: Status: Active Protocol: Activity Type Activity Date Activity User E-Sign Co-Sign Detail Recorded Client Recorded Date Recorded By Document 02/22/21 14:15 KATERINA [id number] 02/22/21 14:18 IL 02/22/21 14:15 Wound Center Nurse 1 #3 L Stump/Post op -Current Size (cm) - Length 1 -Current Size (cm) - Width 2.9 -Current Size (cm) - Depth 0.1 -Total Square Cm 2.9 -Photo Taken No -Epithelialization None Present -Tunneling No -Undermining/Tunneling No -Circular Undermining No -Change in Wound Grade/Stage No -Exudate Amt Medium -Exudate Type Serosanguineous -Wound Margin Distinct, Outline Attached -Granulation Amt None Present (0 %) -Granulation Quality N/A -Slough/Fibrin Yes -Necrosis Amt Large (67-100%) -Necrotic Tissue Type Adherent Slough -Structure Exposed N/A -Texture (Yudy-wound Skin Appearance) No Abnormality, Assessed -Moisture (Yudy-wound Skin Appearance) No Abnormality, Assessed -Color (Yudy-wound Skin Appearance) No Abnormality, Assessed -Temperature (Yudy-wound Skin No Abnormality Appearance) (Pt Warm) -Tenderness on Palpation (Yudy-wound No Skin Appearance) -Ulcer Cleansing Rinsed/ Irrigated with Saline -Foul Odor after Cleansing No -Anesthetic Used 5% Lidocaine Gel WC - Nurse 2 - General Ulcer CM Notes Start: 02/22/21 14:14 Freq: Status: Active Protocol: Activity Type Activity Date Activity User E-Sign Co-Sign Detail Recorded Client Recorded Date Recorded By Document 02/22/21 14:26 MW [id number] 02/22/21 14:33 MW 02/22/21 14:26 Wound Center Nurse 2 -Time 14:27 -Correct Patient Yes -Correct Side, Site, Position Yes -Correct Procedure Yes -Procedure Performed Yes -Type of Procedure Debridement -Clinical Debridement Subcutaneous -Tissue Removed Subcutaneous -Post Debridement (cm) - Length 1.3 -Post Debridement (cm) - Width 3.0 -Post Debridement (cm) - Depth 0.1 -Total Square (Post) (cm) 3.90 -Area of Debridement (cm) - Length 1.3 -Area of Debridement (cm) - Width 3.0 -Total Square (Area) (cm) 3.90 -Tunneling No -Undermining/Tunneling No -Circular Undermining No -Wound/Ulcer Outcome Not Healed -Ulcer Cleansing Rinsed/ Irrigated with Saline -Foul Odor after Cleansing No -Bioengineered Tissue Yes -Type of Bioengineered Tissue Theraskin -Expiration Date 04/25/24 -Product Lot Number [id number] -Percent Used 100 -Lot number of Saline Used [id number] -Bleeding Controlled with Pressure, [id number] -Offloading No -Treatment Response Procedure Tolerated Well -Debridement - Subq, 1st 20sq cm No -Apply Skin Sub - 1st 25 sq cm - Legs 1 -Theraskin (per sq cm) 3 Pain Scale: 0-10 Numeric Is Patient Pain Free? Yes Assessment/Plan Assessment/Plan (1) Diabetes mellitus with ulcer of lower extremity: CODE(S): E11.622 - Type 2 diabetes mellitus with other skin ulcer; L97.909 - Non-pressure chronic ulcer of unspecified part of unspecified lower leg with unspecified severity (2) Pressure ulcer of BKA stump, stage 4: CODE(S): T87.89 - Other complications of amputation stump; L89.894 - Pressure ulcer of other site, stage 4 (3) Diabetes: CODE(S): E11.9 - Type 2 diabetes mellitus without complications (4) Smoker: CODE(S): F17.200 - Nicotine dependence, unspecified, uncomplicated (5) Below-knee amputation of left lower extremity: CODE(S): S88.112A - Complete traumatic amputation at level between knee and ankle, left lower leg, initial encounter PLAN: Wound care - Theraskin #7 placed today secured with dermabond, steri strips and covered with a wound veil that was secured with steri strips. Periwound continues to be excoriated even after a wound VAC holiday. Will discontinue the wound VAC. Place A&D ointment 1-2 times per day on the periwound. Use an AMIE wrap on the left BKA stump. The periwound needs to be washed daily with soap and water before the A&D ointment, but make sure not to get the wound veil wet. Completed the Zosyn IV and Doxycycline po on 12/18/20. Encourage high protein diet to help with wound healing an to help keep better control of blood sugars. He currently is homeless, so he needs to stay in a facility for better management of his ulcer and medication management. Especially because we are using an advanced wound healing skin product. A letter was written for medical necessity for care was written. Follow up 1 week
[2021-03-05 08:37] VITALS: BP 129/74; PULSE 75; RESP 16; TEMP 36.2
--- NOTE | 2021-03-05 10:30 | PCM.WC.PN ---
History of Present Illness Date of Service: 03/05/21 Chief Complaint: Ulcer on left BKA after I&D of a diabetic abscess/hematoma on 11/06/20 History of Wound: Surgery on 11/06/20 - Surgical preparation left below knee amputation stump with incision and drainage and excisional debridement with partial ostectomy tibia for osteomyelitis and evacuation hematoma for draining diabetic ulcer abscess. (He had his Left BKA on 04/17/20). Operative tissue and bone cultures were negative. Wound cultures from 11/02/20 positive for MSSA, Enterobacter cloacae complex, and Corynebacterium amycolatum. He is at [facility], Zosyn IV and Doxycycline po which are now completed. He has had a plateau in the healing process and will proceed with using Theraskin and advanced skin substitute graft to help with wound healing. Wound care - Theraskin #8 placed today secured with dermabond, steri strips and covered with a wound veil that was secured with steri strips. Discontinue wound VAC due to yudy wound continues to be excoriated even after the VAC holiday. Will cover Theraskin with ABD and use CHALINO wrap for compression. Prealbumin 9.9 on 11/07/20. Today he denies any fever. He states his appetite is good. Progress of Wound: Improvement in left BKA ulcer. Objective Data Objective Data Vital Signs: Vital Signs Temp Pulse Resp BP 97.1 F L 75 16 129/74 H 03/05/21 08:37 03/05/21 08:37 03/05/21 08:37 03/05/21 08:37 Oxygen Delivery Method Room Air Charges/Coding Procedures Integumentary 150xxx-152xx: 21036 Skin sub graft trnk/arm/leg Physical Exam Const alert and oriented x3 General Appearance: cooperative HEENT normocephalic Lymph Lymphatic: no lymphedema noted Resp normal respiratory effort Cardio regular rate GI non-tender Palpation: soft Extremity normal capillary refill Skin Wound Narrative: Left BKA ulcer is improved in size, beefy pink. Periwound has some excoriated areas, but is starting to improve. Neuro CN's II-XII intact bilaterally Psych Appearance: grossly normal Debridement Note Debridement Note Wound debrided: BKA ulcer Laterality: Left Type of Debridement: Excisional debridement Anesthesia Used: 5% Lidocaine Gel Depth: Down to and including healthy tissue and in the subcutaneous layer Percentage of wound debrided: 100 Instrument Used: 3mm curette Tissue Removed: Subcutaneous tissue and slough Severity: Fat Layer Exposed Amount of bleeding with debridement: Mild Bleeding Controlled with: Pressure and Compression and gauze Patient tolerated procedure: Patient tolerated procedure well Post-Debridement Measurements and Additional Note: Post-Debridement Measurements/Treatment FREDI - Nurse 1 - General Ulcer Assessment Start: 02/22/21 14:14 Freq: Status: Active Protocol: ARLETH Activity Type Activity Date Activity User E-Sign Co-Sign Detail Recorded Client Recorded Date Recorded By Document 02/22/21 14:15 AK [id number] 02/22/21 14:18 AK Document 03/05/21 08:37 [facility] [id number] 03/05/21 08:45 BMF 02/22/21 03/05/21 14:15 08:37 FREDI - Today's Visit Information Type of service Follow-up Visit Follow-up Visit (Physician/INSTRUCTIONAL SYSTEMS DESIGNER (Physician/INSTRUCTIONAL SYSTEMS DESIGNER ) ) Arrival Mode Wheelchair Wheelchair Transfer Assistance None Accompanied by ecf transportation Patient Identification Verified (Name & Yes Yes ) Patient Requires Transmission-Based No No Precautions Vital Signs Temperature (97.8 F-99.1 F) 97.3 F L 97.1 F L Temperature Source Temporal Temporal Pulse Rate (60-100) 75 75 Pulse Location Monitor Monitor Respiratory Rate (12-18) 16 Respiratory rate source Observation Oxygen Delivery Method Room Air Blood Pressure (90/60-120/80) 124/79 H 129/74 H Blood Pressure Mean (mm Hg) 94 92 Source Monitor Monitor Position Sitting Blood Pressure Location Left Arm History Since Last Visit- (Skip if this is Patient's initial visit) Have you changed medications since your No No last visit? Any new allergies or adverse reactions No No Had a fall/change in ADL's that may No No increase risk of falls Signs or symptoms of abuse and/or No No neglect since last visit Have you been in the hospital since your No No last visit? Has dressing in place as prescribed Yes Yes Has compression in place as prescribed Yes Yes Has offloadiing in place as prescribed N/A N/A Experienced any changes in pain level or No No management Left Footwear Regular Shoe Pain Scale: 0-10 Numeric Is Patient Pain Free? Yes FREDI - Nurse 1 - General Ulcer Measurement Start: 02/22/21 14:14 Freq: Status: Active Protocol: Activity Type Activity Date Activity User E-Sign Co-Sign Detail Recorded Client Recorded Date Recorded By Document 02/22/21 14:15 AK [id number] 02/22/21 14:18 AK Document 03/05/21 08:37 BM [id number] 03/05/21 08:45 BMF 02/22/21 03/05/21 14:15 08:37 Wound Center Nurse 1 #3 L Stump/Post op -Combined with other wound No -Current Size (cm) - Length 1 0.9 -Current Size (cm) - Width 2.9 2.3 -Current Size (cm) - Depth 0.1 0.1 -Total Square Cm 2.9 2.07 -Photo Taken No No -Epithelialization None Present Small 1-33% -Tunneling No -Undermining/Tunneling No No -Circular Undermining No No -Change in Wound Grade/Stage No -Exudate Amt Medium Medium -Exudate Type Serosanguineous Serosanguineous -Wound Margin Distinct, Distinct, Outline Outline Attached Attached -Granulation Amt None Present (0 Large (67-100%) %) -Granulation Quality N/A Pale,Red -Slough/Fibrin Yes Yes -Necrosis Amt Large (67-100%) Small (1-33%) -Necrotic Tissue Type Adherent Slough Adherent Slough -Structure Exposed N/A -Texture (Yudy-wound Skin Appearance) No Abnormality, Assessed, Assessed Excoriation, Scarring -Moisture (Yudy-wound Skin Appearance) No Abnormality, Assessed Assessed -Color (Yudy-wound Skin Appearance) No Abnormality, Assessed, Assessed Hemosiderin Staining -Temperature (Yudy-wound Skin No Abnormality No Abnormality Appearance) (Pt Warm) (Pt Warm) -Tenderness on Palpation (Yudy-wound No No Skin Appearance) -Ulcer Cleansing Rinsed/ Soap and Water Irrigated with Saline -Foul Odor after Cleansing No No -Anesthetic Used 5% Lidocaine 5% Lidocaine Gel Gel WC - Nurse 2 - General Ulcer CM Notes Start: 02/22/21 14:14 Freq: Status: Active Protocol: Activity Type Activity Date Activity User E-Sign Co-Sign Detail Recorded Client Recorded Date Recorded By Document 02/22/21 14:26 MW [id number] 02/22/21 14:33 MW Document 03/05/21 09:02 MW [id number] 03/05/21 09:12 MW 02/22/21 03/05/21 14:26 09:02 Wound Center Nurse 2 #3 L Stump/Post op -Time 14:27 09:10 -Correct Patient Yes Yes -Correct Side, Site, Position Yes Yes -Correct Procedure Yes Yes -Procedure Performed Yes Yes -Type of Procedure Debridement Debridement -Clinical Debridement Subcutaneous Subcutaneous -Tissue Removed Subcutaneous Subcutaneous -Post Debridement (cm) - Length 1.3 1.0 -Post Debridement (cm) - Width 3.0 2.5 -Post Debridement (cm) - Depth 0.1 0.2 -Total Square (Post) (cm) 3.90 2.50 -Area of Debridement (cm) - Length 1.3 1.0 -Area of Debridement (cm) - Width 3.0 2.5 -Total Square (Area) (cm) 3.90 2.50 -Tunneling No No -Undermining/Tunneling No No -Circular Undermining No No -Wound/Ulcer Outcome Not Healed Not Healed -Ulcer Cleansing Rinsed/ Rinsed/ Irrigated with Irrigated with Saline Saline -Foul Odor after Cleansing No No -Bioengineered Tissue Yes Yes -Type of Bioengineered Tissue Theraskin Theraskin -Expiration Date 04/25/24 04/27/24 -Product Lot Number [id number] -Percent Used 100 100 -Lot number of Saline Used [id number] -Bleeding Controlled with Pressure, Pressure SURGIFOAM -Offloading No No -Treatment Response Procedure Procedure Tolerated Well Tolerated Well -Debridement - Subq, 1st 20sq cm No No -Apply Skin Sub - 1st 25 sq cm - Legs 1 1 -Theraskin (per sq cm) 3 3 Pain Scale: 0-10 Numeric Is Patient Pain Free? Yes Yes - Nurse 3 - General Ulcer D/C NN Start: 02/22/21 14:14 Freq: Status: Active Protocol: Activity Type Activity Date Activity User E-Sign Co-Sign Detail Recorded Client Recorded Date Recorded By Document 03/05/21 09:21 [facility] [id number] 03/05/21 09:22 [facility] 03/05/21 09:21 Wound Care Nurse 3 #3 L Stump/Post op -Other Dressing theraskin -Primary Dressing Covered/Secured with Dry Gauze & Roll Gauze, Secured with Tape,Other -Other Covering abd Left -Compression Wrap Chalino Wrap Pain Scale: 0-10 Numeric Is Patient Pain Free? Yes WC - Visit Discharge Discharge Condition Stable Ambulatory Status Wheelchair Transportation ecf Facility Type [facility] Care Facility Assessment/Plan Assessment/Plan (1) Diabetes mellitus with ulcer of lower extremity: CODE(S): E11.622 - Type 2 diabetes mellitus with other skin ulcer; L97.909 - Non-pressure chronic ulcer of unspecified part of unspecified lower leg with unspecified severity (2) Pressure ulcer of BKA stump, stage 4: CODE(S): T87.89 - Other complications of amputation stump; L89.894 - Pressure ulcer of other site, stage 4 (3) Diabetes: CODE(S): E11.9 - Type 2 diabetes mellitus without complications (4) Below-knee amputation of left lower extremity: CODE(S): S88.112A - Complete traumatic amputation at level between knee and ankle, left lower leg, initial encounter (5) Smoker: CODE(S): F17.200 - Nicotine dependence, unspecified, uncomplicated PLAN: Wound care - Theraskin #8 placed today secured with dermabond, steri strips and covered with a wound veil that was secured with steri strips. Change dressing every other day. Periwound is starting to improve, place A&D ointment 1-2 times per day on the periwound. Use an CHALINO wrap on the left BKA stump for compression. Completed the Zosyn IV and Doxycycline po on 12/18/20. Encourage high protein diet to help with wound healing an to help keep better control of blood sugars. He currently is homeless, so he needs to stay in a facility for better management of his ulcer and medication management. He states he should be getting an apartment after the first of the ear. Follow up 1 week
[2021-03-19 09:02] VITALS: BP 136/78; PULSE 73; RESP 16; TEMP 35.6
--- NOTE | 2021-03-19 11:42 | PCM.WC.PN ---
History of Present Illness Date of Service: 03/19/21 Chief Complaint: Ulcer on left BKA after I&D of a diabetic abscess/hematoma on 11/06/20 History of Wound: Surgery on 11/06/20 - Surgical preparation left below knee amputation stump with incision and drainage and excisional debridement with partial ostectomy tibia for osteomyelitis and evacuation hematoma for draining diabetic ulcer abscess. (He had his Left BKA on 04/17/20). Operative tissue and bone cultures were negative. Wound cultures from 11/02/20 positive for MSSA, Enterobacter cloacae complex, and Corynebacterium amycolatum. He is at [facility], Zosyn IV and Doxycycline po which are now completed. He has had a plateau in the healing process and will proceed with using Theraskin and advanced skin substitute graft to help with wound healing. Wound care - Theraskin #9 placed today secured with dermabond, steri strips and covered with a wound veil that was secured with steri strips. Discontinue wound VAC due to yudy wound continues to be excoriated even after the VAC holiday. Will cover Theraskin with ABD and use CHALINO wrap for compression. Prealbumin 9.9 on 11/07/20. Today he denies any fever. He states his appetite is good. Progress of Wound: Improvement in left BKA ulcer. Objective Data Objective Data Vital Signs: Vital Signs Temp Pulse Resp BP 96.1 F L 73 16 136/78 H 03/19/21 09:02 03/19/21 09:02 03/19/21 09:02 03/19/21 09:02 Oxygen Delivery Method Room Air Charges/Coding Procedures Integumentary 150xxx-152xx: 00381 Skin sub graft trnk/arm/leg Physical Exam Const alert and oriented x3 General Appearance: cooperative HEENT normocephalic Head and Scalp: atraumatic Eyes PERRL Lymph Lymphatic: no lymphedema noted Resp normal respiratory effort Cardio regular rate GI non-tender Palpation: soft Extremity normal capillary refill Skin Wound Narrative: Left BKA ulcer is smaller in size. Granulation tissue, no bone exposed. Neuro CN's II-XII intact bilaterally Psych Appearance: grossly normal Debridement Note Debridement Note Wound debrided: BKA stump ulcer Laterality: Left Type of Debridement: Excisional debridement Anesthesia Used: 4% Lidocaine Solution Depth: Down to and including healthy tissue Percentage of wound debrided: 100 Instrument Used: 3mm curette Tissue Removed: Subcutaneous tissue and slough Severity: Fat Layer Exposed Amount of bleeding with debridement: Mild Bleeding Controlled with: Pressure Patient tolerated procedure: Patient tolerated procedure well Post-Debridement Measurements and Additional Note: Post-Debridement Measurements/Treatment WC - Nurse 1 - General Ulcer Assessment Start: 02/22/21 14:14 Freq: Status: Active Protocol: ARLETH Activity Type Activity Date Activity User E-Sign Co-Sign Detail Recorded Client Recorded Date Recorded By Document 02/22/21 14:15 AK [id number] 02/22/21 14:18 AK Document 03/05/21 08:37 [facility] [id number] 03/05/21 08:45 [facility] Document 03/19/21 09:02 BM [id number] 03/19/21 09:03 BMF 02/22/21 03/05/21 03/19/21 14:15 08:37 09:02 - Today's Visit Information Type of service Follow-up Visit Follow-up Visit Follow-up Visit (Physician/COLOR PASTE MIXER (Physician/COLOR PASTE MIXER (Physician/COLOR PASTE MIXER ) ) ) Arrival Mode Wheelchair Wheelchair Wheelchair Transfer Assistance None None Accompanied by ecf caregiver from transportation ecf Patient Identification Verified (Name & Yes Yes Yes ) Patient Requires Transmission-Based No No No Precautions Vital Signs Temperature (97.8 F-99.1 F) 97.3 F L 97.1 F L 96.1 F L Temperature Source Temporal Temporal Temporal Pulse Rate (60-100) 75 75 73 Pulse Location Monitor Monitor Monitor Respiratory Rate (12-18) 16 16 Respiratory rate source Observation Observation Oxygen Delivery Method Room Air Room Air Blood Pressure (90/60-120/80) 124/79 H 129/74 H 136/78 H Blood Pressure Mean (mm Hg) 94 92 97 Source Monitor Monitor Monitor Position Sitting Sitting Blood Pressure Location Left Arm Right Arm History Since Last Visit- (Skip if this is Patient's initial visit) Have you changed medications since your No No No last visit? Any new allergies or adverse reactions No No No Had a fall/change in ADL's that may No No No increase risk of falls Signs or symptoms of abuse and/or No No No neglect since last visit Have you been in the hospital since your No No No last visit? Has dressing in place as prescribed Yes Yes Yes Has compression in place as prescribed Yes Yes Yes Has offloadiing in place as prescribed N/A N/A N/A Experienced any changes in pain level or No No No management Left Footwear Regular Shoe Pain Scale: 0-10 Numeric Is Patient Pain Free? Yes Yes WC - Nurse 1 - General Ulcer Measurement Start: 02/22/21 14:14 Freq: Status: Active Protocol: Activity Type Activity Date Activity User E-Sign Co-Sign Detail Recorded Client Recorded Date Recorded By Document 02/22/21 14:15 AK [id number] 02/22/21 14:18 AK Document 03/05/21 08:37 BM [id number] 03/05/21 08:45 BMF Document 03/19/21 09:02 BMF [id number] 03/19/21 09:03 BMF 02/22/21 03/05/21 03/19/21 14:15 08:37 09:02 Wound Center Nurse 1 #3 L Stump/Post op -Combined with other wound No No -Current Size (cm) - Length 1 0.9 1 -Current Size (cm) - Width 2.9 2.3 1.6 -Current Size (cm) - Depth 0.1 0.1 0.3 -Total Square Cm 2.9 2.07 1.6 -Photo Taken No No No -Epithelialization None Present Small 1-33% Small 1-33% -Tunneling No No -Undermining/Tunneling No No No -Circular Undermining No No No -Change in Wound Grade/Stage No -Exudate Amt Medium Medium Medium -Exudate Type Serosanguineous Serosanguineous Serosanguineous -Wound Margin Distinct, Distinct, Distinct, Outline Outline Outline Attached Attached Attached -Granulation Amt None Present (0 Large (67-100%) Medium (34-66%) %) -Granulation Quality N/A Pale,Red [place] -Slough/Fibrin Yes Yes Yes -Necrosis Amt Large (67-100%) Small (1-33%) Medium (34-66%) -Necrotic Tissue Type Adherent Slough Adherent Slough Adherent Slough -Structure Exposed N/A -Texture (Yudy-wound Skin Appearance) No Abnormality, Assessed, Assessed, Assessed Excoriation, Scarring Scarring -Moisture (Yudy-wound Skin Appearance) No Abnormality, Assessed Assessed, Assessed Maceration -Color (Yudy-wound Skin Appearance) No Abnormality, Assessed, Assessed Assessed Hemosiderin Staining -Temperature (Yudy-wound Skin No Abnormality No Abnormality No Abnormality Appearance) (Pt Warm) (Pt Warm) (Pt Warm) -Tenderness on Palpation (Yudy-wound No No No Skin Appearance) -Ulcer Cleansing Rinsed/ Soap and Water Soap and Water Irrigated with Saline -Foul Odor after Cleansing No No No -Anesthetic Used 5% Lidocaine 5% Lidocaine 4% Lidocaine Gel Gel Solution WC - Nurse 2 - General Ulcer CM Notes Start: 02/22/21 14:14 Freq: Status: Active Protocol: Activity Type Activity Date Activity User E-Sign Co-Sign Detail Recorded Client Recorded Date Recorded By Document 02/22/21 14:26 MW [id number] 02/22/21 14:33 MW Document 03/05/21 09:02 MW [id number] 03/05/21 09:12 MW Document 03/19/21 09:27 [id number] 03/19/21 09:34 JF 02/22/21 03/05/21 03/19/21 14:26 09:02 09:27 Wound Center Nurse 2 #3 L Stump/Post op -Time 14:27 09:10 09:27 -Correct Patient Yes Yes Yes -Correct Side, Site, Position Yes Yes Yes -Correct Procedure Yes Yes Yes -Procedure Performed Yes Yes Yes -Type of Procedure Debridement Debridement Debridement -Clinical Debridement Subcutaneous Subcutaneous Subcutaneous -Tissue Removed Subcutaneous Subcutaneous Subcutaneous -Post Debridement (cm) - Length 1.3 1.0 1.0 -Post Debridement (cm) - Width 3.0 2.5 2.2 -Post Debridement (cm) - Depth 0.1 0.2 0.1 -Total Square (Post) (cm) 3.90 2.50 2.20 -Area of Debridement (cm) - Length 1.3 1.0 1.0 -Area of Debridement (cm) - Width 3.0 2.5 2.2 -Total Square (Area) (cm) 3.90 2.50 2.20 -Tunneling No No No -Undermining/Tunneling No No No -Circular Undermining No No No -Wound/Ulcer Outcome Not Healed Not Healed Not Healed -Ulcer Cleansing Rinsed/ Rinsed/ Rinsed/ Irrigated with Irrigated with Irrigated with Saline Saline Saline -Foul Odor after Cleansing No No No -Bioengineered Tissue Yes Yes Yes -Type of Bioengineered Tissue Theraskin Theraskin Theraskin -Expiration Date 04/25/24 04/27/24 04/27/24 -Product Lot Number [id number] -Percent Used 100 100 100 -Lot number of Saline Used [id number] -Bleeding Controlled with Pressure, Pressure Pressure SURGIFOAM -Offloading No No No -Treatment Response Procedure Procedure Procedure Tolerated Well Tolerated Well Tolerated Well -Debridement - Subq, 1st 20sq cm No No No -Apply Skin Sub - 1st 25 sq cm - Legs 1 1 1 -Theraskin (per sq cm) 3 3 3 Pain Scale: 0-10 Numeric Is Patient Pain Free? Yes Yes Yes - Nurse 3 - General Ulcer D/C NN Start: 02/22/21 14:14 Freq: Status: Active Protocol: Activity Type Activity Date Activity User E-Sign Co-Sign Detail Recorded Client Recorded Date Recorded By Document 03/05/21 09:21 [facility] [id number] 03/05/21 09:22 [facility] Document 03/19/21 09:46 [id number] 03/19/21 09:47 DL 03/05/21 03/19/21 09:21 09:46 Wound Care Nurse 3 #3 L Stump/Post op -Foul Odor after Cleansing No -Other Dressing theraskin Theraskin -Primary Dressing Covered/Secured with Dry Gauze & Dry Gauze & Roll Gauze, Roll Gauze Secured with Tape,Other -Other Covering abd chalino Left -Compression Wrap Chalino Wrap Treatment Response Procedure Tolerated Well Pain Scale: 0-10 Numeric Is Patient Pain Free? Yes Yes - Visit Discharge Discharge Condition Stable Stable Ambulatory Status Wheelchair Wheelchair Transportation ecf [facility] Facility Type [facility] Care Facility Assessment/Plan Assessment/Plan (1) Diabetes mellitus with ulcer of lower extremity: CODE(S): E11.622 - Type 2 diabetes mellitus with other skin ulcer; L97.909 - Non-pressure chronic ulcer of unspecified part of unspecified lower leg with unspecified severity (2) Pressure ulcer of BKA stump, stage 4: CODE(S): T87.89 - Other complications of amputation stump; L89.894 - Pressure ulcer of other site, stage 4 (3) Below-knee amputation of left lower extremity: CODE(S): S88.112A - Complete traumatic amputation at level between knee and ankle, left lower leg, initial encounter (4) Diabetes: CODE(S): E11.9 - Type 2 diabetes mellitus without complications (5) Smoker: CODE(S): F17.200 - Nicotine dependence, unspecified, uncomplicated PLAN: Wound care - Theraskin #9 placed today secured with dermabond, steri strips and covered with a wound veil that was secured with steri strips. Change dressing every other day. Periwound is improved since doing more frequent dressing changes, place A&D ointment 1-2 times per day on the periwound. Use an CHALINO wrap on the left BKA stump for compression. Completed the Zosyn IV and Doxycycline po on 12/18/20. Encourage high protein diet to help with wound healing and low carb diet to help keep better control of blood sugars. He currently is homeless, so he needs to stay in a facility for better management of his ulcer and medication management. He states he should be getting an apartment after the first of the ear. Follow up 1 week
== END 2021-03-23 23:59 ==
LOC: WC 09:00
PROVIDERS: PCP Family Medicine; Visit Provider Nurse Practitioner Family
DX: T87.89 Other complications of amputation stump (principal); Y84.8 Other medical procedures as the cause of abnormal reaction of the patient, or of later complication, without mention of misadventure at the time of the procedure; E11.622 Type 2 diabetes mellitus with other skin ulcer; F17.200 Nicotine dependence, unspecified, uncomplicated; L89.894 Pressure ulcer of other site, stage 4; Z59.01 Sheltered homelessness
CPT/HCPCS: 15271; Q4121

== ENCOUNTER 2021-04-20 09:00 | Outpatient (RCR) | payer MEDICARE, MEDICAID, SELFPAY ==
[2021-03-24 00:29] VITALS: BP 136/78; PULSE 73; RESP 16; TEMP 35.6
[2021-03-26 09:07] VITALS: BP 150/85; PULSE 68; RESP 16; TEMP 35.7
--- NOTE | 2021-03-26 09:56 | PN.PCM_ITS ---
History of Present Illness Date of Service: 03/26/21 Chief Complaint: Ulcer on left BKA after I&D of a diabetic abscess/hematoma on 11/06/20 History of Wound: Surgery on 11/06/20 - Surgical preparation left below knee amputation stump with incision and drainage and excisional debridement with partial ostectomy tibia for osteomyelitis and evacuation hematoma for draining diabetic ulcer abscess. (He had his Left BKA on 04/17/20). Operative tissue and bone cultures were negative. Wound cultures from 11/02/20 positive for MSSA, Enterobacter cloacae complex, and Corynebacterium amycolatum. He is at [facility], Zosyn IV and Doxycycline po which are now completed. He has had a plateau in the healing process and will proceed with using Theraskin and advanced skin substitute graft to help with wound healing. Wound care - Theraskin #9 placed today secured with dermabond, steri strips and covered with a wound veil that was secured with steri strips. Discontinue wound VAC due to yudy wound continues to be excoriated even after the VAC holiday. Will cover Theraskin with ABD and use AMIE wrap for compression. Prealbumin 9.9 on 11/07/20. Today he denies any fever. He states his appetite is good. Progress of Wound: Ulcer is improved. Objective Data Objective Data Vital Signs: Vital Signs Temp Pulse Resp BP 96.3 F L 68 16 150/85 H 03/26/21 09:07 03/26/21 09:07 03/26/21 09:07 03/26/21 09:07 Oxygen Delivery Method Room Air Charges/Coding Procedures Integumentary 150xxx-152xx: 71693 Skin sub graft trnk/arm/leg Physical Exam Const alert and oriented x3 General Appearance: cooperative HEENT normocephalic Head and Scalp: atraumatic Eyes PERRL Resp normal respiratory effort Cardio regular rate Extremity normal capillary refill Skin Wound Narrative: Left BKA ulcer is smaller in size and a nice pink color. Neuro CN's II-XII intact bilaterally Psych Thought Process: normal thought process Debridement Note Debridement Note Wound debrided: BKA stump ulcer Laterality: Left Type of Debridement: Excisional debridement Anesthesia Used: 5% Lidocaine Gel Depth: Down to and including healthy tissue and in the subcutaneous layer Percentage of wound debrided: 100 Instrument Used: 3mm curette Tissue Removed: Subcutaneous tissue and slough. Severity: Fat Layer Exposed Bleeding Controlled with: Pressure Patient tolerated procedure: Patient tolerated procedure well Post-Debridement Measurements and Additional Note: Post-Debridement Measurements/Treatment - Nurse 1 - General Ulcer Assessment Start: 03/26/21 09:07 Freq: Status: Active Protocol: ARLETH Activity Type Activity Date Activity User E-Sign Co-Sign Detail Recorded Client Recorded Date Recorded By Document 03/26/21 09:07 [facility] [id number] 03/26/21 09:10 [facility] 03/26/21 09:07 - Today's Visit Information Type of service Follow-up Visit (Physician/CLUB DIRECTOR ) Arrival Mode Wheelchair Transfer Assistance None Patient Identification Verified (Name & Yes ) Patient Requires Transmission-Based No Precautions Vital Signs Temperature (97.8 F-99.1 F) 96.3 F L Temperature Source Temporal Pulse Rate (60-100) 68 Pulse Location Monitor Respiratory Rate (12-18) 16 Respiratory rate source Observation Oxygen Delivery Method Room Air Blood Pressure (90/60-120/80) 150/85 H Blood Pressure Mean (mm Hg) 106 Source Monitor Position Sitting Blood Pressure Location Left Arm History Since Last Visit- (Skip if this is Patient's initial visit) Have you changed medications since your No last visit? Any new allergies or adverse reactions No Had a fall/change in ADL's that may No increase risk of falls Signs or symptoms of abuse and/or No neglect since last visit Have you been in the hospital since your No last visit? Has dressing in place as prescribed Yes Has compression in place as prescribed Yes Has offloadiing in place as prescribed N/A Experienced any changes in pain level or No management Pain Scale: 0-10 Numeric Is Patient Pain Free? Yes [facility] Nurse 1 - General Ulcer Measurement Start: 03/26/21 09:07 Freq: Status: Active Protocol: Activity Type Activity Date Activity User E-Sign Co-Sign Detail Recorded Client Recorded Date Recorded By Document 03/26/21 09:07 [facility] [id number] 03/26/21 09:10 [facility] 03/26/21 09:07 Wound Center Nurse 1 #3 L Stump/Post op -Current Size (cm) - Length 0.8 -Current Size (cm) - Width 2 -Current Size (cm) - Depth 0.2 -Total Square Cm 1.6 -Photo Taken No -Epithelialization Small 1-33% -Tunneling No -Undermining/Tunneling No -Circular Undermining No -Exudate Amt Medium -Exudate Type Serosanguineous -Wound Margin Distinct, Outline Attached -Granulation Amt Small (1-33%) -Granulation Quality [place] -Slough/Fibrin Yes -Necrosis Amt Large (67-100%) -Necrotic Tissue Type Adherent Slough -Texture (Yudy-wound Skin Appearance) Assessed, Scarring -Moisture (Yudy-wound Skin Appearance) Assessed,Dry/ Scaly -Color (Yudy-wound Skin Appearance) Assessed -Temperature (Yudy-wound Skin No Abnormality Appearance) (Pt Warm) -Tenderness on Palpation (Yudy-wound No Skin Appearance) -Ulcer Cleansing Soap and Water -Foul Odor after Cleansing No -Anesthetic Used 5% Lidocaine Gel WC - Nurse 2 - General Ulcer CM Notes Start: 03/26/21 09:07 Freq: Status: Active Protocol: Activity Type Activity Date Activity User E-Sign Co-Sign Detail Recorded Client Recorded Date Recorded By Document 03/26/21 09:30 [id number] 03/26/21 09:38 [facility] 03/26/21 09:30 Wound Center Nurse 2 -Time 09:36 -Correct Patient Yes -Correct Side, Site, Position Yes -Correct Procedure Yes -Procedure Performed Yes -Type of Procedure Debridement -Clinical Debridement Subcutaneous -Tissue Removed Subcutaneous -Post Debridement (cm) - Length 1.0 -Post Debridement (cm) - Width 2.2 -Post Debridement (cm) - Depth 0.1 -Total Square (Post) (cm) 2.20 -Area of Debridement (cm) - Length 1.0 -Area of Debridement (cm) - Width 2.2 -Total Square (Area) (cm) 2.20 -Tunneling No -Undermining/Tunneling No -Circular Undermining No -Wound/Ulcer Outcome Not Healed -Ulcer Cleansing Rinsed/ Irrigated with Saline -Foul Odor after Cleansing No -Bioengineered Tissue Yes -Type of Bioengineered Tissue Theraskin -Expiration Date 05/01/24 -Product Lot Number [id number] -Percent Used 100 -Lot number of Saline Used [id number] -Bleeding Controlled with Pressure -Offloading No -Treatment Response Procedure Tolerated Well -Debridement - Subq, 1st 20sq cm No -Apply Skin Sub - 1st 25 sq cm - Legs 1 -Theraskin (per sq cm) 3 Pain Scale: 0-10 Numeric Is Patient Pain Free? Yes - Nurse 3 - General Ulcer D/C NN Start: 03/26/21 09:07 Freq: Status: Active Protocol: Activity Type Activity Date Activity User E-Sign Co-Sign Detail Recorded Client Recorded Date Recorded By Document 03/26/21 09:39 [id number] 03/26/21 09:40 [facility] 03/26/21 09:39 Wound Care Nurse 3 #3 L Stump/Post op -Ulcer Cleansing Rinsed/ Irrigated with Saline -Foul Odor after Cleansing No -Primary Dressing Applied Mepilex Border -Mepilex Border 1 Pain Scale: 0-10 Numeric Is Patient Pain Free? Yes WC - Visit Discharge Discharge Condition Stable Ambulatory Status Wheelchair Transportation Private Auto Accompanied by daughter Medication Reconcilliation completed & Yes provided to patient/care provider Clinical Summary of Care Provided Yes Assessment/Plan Assessment/Plan (1) Diabetes mellitus with ulcer of lower extremity: CODE(S): E11.622 - Type 2 diabetes mellitus with other skin ulcer; L97.909 - Non-pressure chronic ulcer of unspecified part of unspecified lower leg with unspecified severity (2) Pressure ulcer of BKA stump, stage 4: CODE(S): T87.89 - Other complications of amputation stump; L89.894 - Pressure ulcer of other site, stage 4 (3) Below-knee amputation of left lower extremity: CODE(S): S88.112A - Complete traumatic amputation at level between knee and ankle, left lower leg, initial encounter (4) Diabetes: CODE(S): E11.9 - Type 2 diabetes mellitus without complications (5) Smoker: CODE(S): F17.200 - Nicotine dependence, unspecified, uncomplicated PLAN: Wound care - Theraskin #10 placed today secured with dermabond, steri strips and covered with a wound veil that was secured with steri strips. Mepilex dressing placed on top. Change dressing every other day. Periwound is much improved since doing more frequent dressing changes, place A&D ointment 1-2 times per day on the periwound. Use an AMIE wrap on the left BKA stump for compression. Completed the Zosyn IV and Doxycycline po on 12/18/20. Encourage high protein diet to help with wound healing and low carb diet to help keep better control of blood sugars. He has moved into his apartment. Follow up 1 week
[2021-04-02 08:55] VITALS: BP 147/60; PULSE 81; RESP 16; TEMP 35.6
--- NOTE | 2021-04-02 13:56 | PCM.WC.PN ---
History of Present Illness Date of Service: 04/02/21 Chief Complaint: Ulcer on left BKA after I&D of a diabetic abscess/hematoma on 11/06/20 History of Wound: Surgery on 11/06/20 - Surgical preparation left below knee amputation stump with incision and drainage and excisional debridement with partial ostectomy tibia for osteomyelitis and evacuation hematoma for draining diabetic ulcer abscess. (He had his Left BKA on 04/17/20). Operative tissue and bone cultures were negative. Wound cultures from 11/02/20 positive for MSSA, Enterobacter cloacae complex, and Corynebacterium amycolatum. He is at [facility], Zosyn IV and Doxycycline po which are now completed. He has had a plateau in the healing process and will proceed with using Theraskin and advanced skin substitute graft to help with wound healing. Wound care - He has had 10 applications of Theraskin. Wound care will now be Aquacel-Ag daily covered with gauze. CHALINO wrap for compression. Prealbumin 9.9 on 11/07/20. Today he denies any fever. He states his appetite is good. Progress of Wound: His ulcer is larger this week with bone exposure. This is a the first week that patient has not had help with his dressing changes. Objective Data Objective Data Vital Signs: Vital Signs Temp Pulse Resp BP 96.1 F L 81 16 147/60 H 04/02/21 08:55 04/02/21 08:55 04/02/21 08:55 04/02/21 08:55 Oxygen Delivery Method Room Air Charges/Coding Procedures Integumentary 111xxx-113xx: [id number] Ria subq tissue 20 sq cm/< Physical Exam Const alert and oriented x3 HEENT normocephalic Head and Scalp: atraumatic Resp normal respiratory effort Cardio regular rate GI non-tender Palpation: soft Extremity normal capillary refill Skin Skin Narrative: Left BKA stump ulcer is larger with bone exposure. Periwound is stable . Neuro CN's II-XII intact bilaterally Psych Appearance: grossly normal Debridement Note Debridement Note Wound debrided: BKA stump ulcer Laterality: Left Type of Debridement: Excisional debridement Anesthesia Used: 5% Lidocaine Gel Depth: Down to and including healthy tissue, in the subcutaneous layer and to bone Percentage of wound debrided: 100 Instrument Used: 3mm curette Tissue Removed: Subcutaneous tissue and slough, today there is bone exposure Severity: Fat Layer Exposed Amount of bleeding with debridement: Mild Bleeding Controlled with: Pressure Patient tolerated procedure: Patient tolerated procedure well Post-Debridement Measurements and Additional Note: Post-Debridement Measurements/Treatment - Nurse 1 - General Ulcer Assessment Start: 03/26/21 09:07 Freq: Status: Active Protocol: ARLETH Activity Type Activity Date Activity User E-Sign Co-Sign Detail Recorded Client Recorded Date Recorded By Document 03/26/21 09:07 [facility] [id number] 03/26/21 09:10 [facility] Document 04/02/21 08:55 [facility] [id number] 04/02/21 08:58 [facility] 03/26/21 04/02/21 09:07 08:55 WC - Today's Visit Information Type of service Follow-up Visit Follow-up Visit (Physician/RECEIVING AND PROCESSING SUPERVISOR (Physician/RECEIVING AND PROCESSING SUPERVISOR ) ) Arrival Mode Wheelchair Wheelchair Transfer Assistance None None Patient Identification Verified (Name & Yes Yes ) Patient Requires Transmission-Based No No Precautions Vital Signs Temperature (97.8 F-99.1 F) 96.3 F L 96.1 F L Temperature Source Temporal Temporal Pulse Rate (60-100) 68 81 Pulse Location Monitor Monitor Respiratory Rate (12-18) 16 16 Respiratory rate source Observation Observation Oxygen Delivery Method Room Air Room Air Blood Pressure (90/60-120/80) 150/85 H 147/60 H Blood Pressure Mean (mm Hg) 106 89 Source Monitor Monitor Position Sitting Sitting Blood Pressure Location Left Arm Right Arm History Since Last Visit- (Skip if this is Patient's initial visit) Have you changed medications since your No No last visit? Any new allergies or adverse reactions No No Had a fall/change in ADL's that may No No increase risk of falls Signs or symptoms of abuse and/or No No neglect since last visit Have you been in the hospital since your No No last visit? Has dressing in place as prescribed Yes Yes Has compression in place as prescribed Yes N/A Has offloadiing in place as prescribed N/A N/A Experienced any changes in pain level or No No management Left Footwear Regular Shoe Right Footwear Regular Shoe Pain Scale: 0-10 Numeric Is Patient Pain Free? Yes Yes [facility] - Nurse 1 - General Ulcer Measurement Start: 03/26/21 09:07 Freq: Status: Active Protocol: Activity Type Activity Date Activity User E-Sign Co-Sign Detail Recorded Client Recorded Date Recorded By Document 03/26/21 09:07 [facility] [id number] 03/26/21 09:10 [facility] Document 04/02/21 08:55 [facility] [id number] 04/02/21 08:58 [facility] 03/26/21 04/02/21 09:07 08:55 Wound Center Nurse 1 #3 L Stump/Post op -Combined with other wound No -Current Size (cm) - Length 0.8 0.6 -Current Size (cm) - Width 2 1 -Current Size (cm) - Depth 0.2 0.1 -Total Square Cm 1.6 0.6 -Photo Taken No No -Epithelialization Small 1-33% Small 1-33% -Tunneling No No -Undermining/Tunneling No No -Circular Undermining No No -Exudate Amt Medium Large -Exudate Type Serosanguineous Serosanguineous -Wound Margin Distinct, Distinct, Outline Outline Attached Attached -Granulation Amt Small (1-33%) -Granulation Quality [place] -Slough/Fibrin Yes -Necrosis Amt Large (67-100%) -Necrotic Tissue Type Adherent Slough -Texture (Yudy-wound Skin Appearance) Assessed, Assessed, Scarring Excoriation, Scarring -Moisture (Yudy-wound Skin Appearance) Assessed,Dry/ Assessed Scaly -Color (Yudy-wound Skin Appearance) Assessed Assessed, Erythema -Temperature (Yudy-wound Skin No Abnormality No Abnormality Appearance) (Pt Warm) (Pt Warm) -Tenderness on Palpation (Yudy-wound No No Skin Appearance) -Ulcer Cleansing Soap and Water Soap and Water -Foul Odor after Cleansing No No -Anesthetic Used 5% Lidocaine 5% Lidocaine Gel Gel WC - Nurse 2 - General Ulcer CM Notes Start: 03/26/21 09:07 Freq: Status: Active Protocol: Activity Type Activity Date Activity User E-Sign Co-Sign Detail Recorded Client Recorded Date Recorded By Document 03/26/21 09:30 [id number] 03/26/21 09:38 Document 04/02/21 09:05 [id number] 04/02/21 09:13 [facility] 03/26/21 04/02/21 09:30 09:05 Wound Center Nurse 2 #3 L Stump/Post op -Time 09:36 09:05 -Correct Patient Yes Yes -Correct Side, Site, Position Yes Yes -Correct Procedure Yes Yes -Procedure Performed Yes Yes -Type of Procedure Debridement Debridement -Clinical Debridement Subcutaneous Subcutaneous -Tissue Removed Subcutaneous Subcutaneous -Post Debridement (cm) - Length 1.0 1.9 -Post Debridement (cm) - Width 2.2 2.8 -Post Debridement (cm) - Depth 0.1 1.0 -Total Square (Post) (cm) 2.20 5.32 -Area of Debridement (cm) - Length 1.0 1.9 -Area of Debridement (cm) - Width 2.2 2.8 -Total Square (Area) (cm) 2.20 5.32 -Tunneling No No -Undermining/Tunneling No No -Circular Undermining No No -Wound/Ulcer Outcome Not Healed Not Healed -Ulcer Cleansing Rinsed/ Rinsed/ Irrigated with Irrigated with Saline Saline -Foul Odor after Cleansing No No -Bioengineered Tissue Yes No -Type of Bioengineered Tissue Theraskin -Expiration Date 05/01/24 -Product Lot Number [id number] -Percent Used 100 -Lot number of Saline Used [id number] -Bleeding Controlled with Pressure Pressure -Offloading No No -Treatment Response Procedure Procedure Tolerated Well Tolerated Well -Debridement - Subq, 1st 20sq cm No Yes -Apply Skin Sub - 1st 25 sq cm - Legs 1 -Theraskin (per sq cm) 3 Pain Scale: 0-10 Numeric Is Patient Pain Free? Yes Yes - Nurse 3 - General Ulcer D/C NN Start: 03/26/21 09:07 Freq: Status: Active Protocol: Activity Type Activity Date Activity User E-Sign Co-Sign Detail Recorded Client Recorded Date Recorded By Document 03/26/21 09:39 [id number] 03/26/21 09:40 Document 04/02/21 09:21 [facility] [id number] 04/02/21 09:21 [facility] 03/26/21 04/02/21 09:39 09:21 Wound Care Nurse 3 #3 L Stump/Post op -Ulcer Cleansing Rinsed/ Soap and Water Irrigated with Saline -Foul Odor after Cleansing No No -Negative Pressure Wound Therapy N/A -Primary Dressing Applied Mepilex Border Aquacel AG 2x2, Aquacel AG 4x4, Mepilex Border -Aquacel AG 4x4 1 -Aquacel AG 2x2 1 -Mepilex Border 1 1 Left -Lotion applied to leg before No compression wrap -Compression Wrap Chalino Wrap Pain Scale: 0-10 Numeric Is Patient Pain Free? Yes WC - Visit Discharge Discharge Condition Stable Ambulatory Status Wheelchair Transportation Private Auto Accompanied by daughter Medication Reconcilliation completed & Yes provided to patient/care provider Clinical Summary of Care Provided Yes Assessment/Plan Assessment/Plan (1) Pressure ulcer of BKA stump, stage 4: CODE(S): T87.89 - Other complications of amputation stump; L89.894 - Pressure ulcer of other site, stage 4 (2) Below-knee amputation of left lower extremity: CODE(S): S88.112A - Complete traumatic amputation at level between knee and ankle, left lower leg, initial encounter (3) Diabetes: CODE(S): E11.9 - Type 2 diabetes mellitus without complications (4) Smoker: CODE(S): F17.200 - Nicotine dependence, unspecified, uncomplicated (5) Diabetes mellitus with ulcer of lower extremity: CODE(S): E11.622 - Type 2 diabetes mellitus with other skin ulcer; L97.909 - Non-pressure chronic ulcer of unspecified part of unspecified lower leg with unspecified severity PLAN: Wound care - The 10th application of Theraskin was placed last week. Start Aquacel-AG daily covered with gauze. Place A&D ointment 1-2 times per day on the periwound. Use an CHALINO wrap on the left BKA stump for compression. Last week was the first week that he did not have help with his dressing change. He now has bone exposure. We will monitor this closely. Completed the Zosyn IV and Doxycycline po on 12/18/20. Encourage high protein diet to help with wound healing and low carb diet to help keep better control of blood sugars. He has moved into his apartment. Follow up 1 week
[2021-04-20 09:21] VITALS: BP 127/78; PULSE 62; RESP 18; TEMP 36.1
--- NOTE | 2021-04-20 10:51 | PCM.WC.PN ---
History of Present Illness Date of Service: 04/20/21 Chief Complaint: Ulcer on left BKA after I&D of a diabetic abscess/hematoma on 11/06/20 History of Wound: Surgery on 11/06/20 - Surgical preparation left below knee amputation stump with incision and drainage and excisional debridement with partial ostectomy tibia for osteomyelitis and evacuation hematoma for draining diabetic ulcer abscess. (He had his Left BKA on 04/17/20). Operative tissue and bone cultures were negative. Wound cultures from 11/02/20 positive for MSSA, Enterobacter cloacae complex, and Corynebacterium amycolatum. He is at [facility], Zosyn IV and Doxycycline po which are now completed. He has had a plateau in the healing process and will proceed with using Theraskin and advanced skin substitute graft to help with wound healing. Wound care - He has had 10 applications of Theraskin. Wound care will now be Aquacel-Ag daily covered with gauze. CHALINO wrap for compression. Prealbumin 9.9 on 11/07/20. Today he denies any fever. He states his appetite is good. Progress of Wound: This is a patient of Sherly Etienne NP whom I am covering in her absence. His ulcer is improved in size and appearance today based on previous documentation. There is no visible bone exposure noted today. The patient denies fever, chills, general malaise, or poor appetite. The patient has not had increased redness, swelling, or purulent/malodorous drainage from affected area. Objective Data Objective Data Vital Signs: Vital Signs Temp Pulse Resp BP 97 F L 62 18 127/78 H 04/20/21 09:21 04/20/21 09:21 04/20/21 09:21 04/20/21 09:21 Oxygen Delivery Method Room Air Charges/Coding Procedures Integumentary 111xxx-113xx: 23113 Ria subq tissue 20 sq cm/< Physical Exam Const alert, oriented x3 and no apparent distress General Appearance: cooperative, comfortable and well kempt HEENT normocephalic Head and Scalp: atraumatic Neck supple Resp normal respiratory effort Extremity normal capillary refill Left Lower Extremity: lower leg other (Left BKA) Skin Skin Narrative: Left BKA stump ulcer with subcutaneous tissue exposed. Small to moderate amount of slough and devitalized tissue present. No tunneling, undermining, or probing to bone noted today. No periulcer erythema, warmth, tenderness. No purulent or malodorous drainage. Neuro CN's II-XII intact bilaterally Psych Appearance: grossly normal Debridement Note Debridement Note Wound debrided: Left BKA stump ulcer Laterality: Left Type of Debridement: Excisional debridement Anesthesia Used: 5% Lidocaine Gel Depth: in the subcutaneous layer Percentage of wound debrided: 100 Instrument Used: 3mm curette Tissue Removed: Slough and devitalized tissue Severity: Fat Layer Exposed Amount of bleeding with debridement: Mild Bleeding Controlled with: Pressure Patient tolerated procedure: Patient tolerated procedure well Post-Debridement Measurements and Additional Note: Post-Debridement Measurements/Treatment - Nurse 1 - General Ulcer Assessment Start: 03/26/21 09:07 Freq: Status: Active Protocol: ARLETH Activity Type Activity Date Activity User E-Sign Co-Sign Detail Recorded Client Recorded Date Recorded By Document 03/26/21 09:07 [facility] [id number] 03/26/21 09:10 [facility] Document 04/02/21 08:55 [facility] [id number] 04/02/21 08:58 [facility] Document 04/20/21 09:21 SC [id number] 04/20/21 09:26 SC 03/26/21 04/02/21 04/20/21 09:07 08:55 09:21 - Today's Visit Information Type of service Follow-up Visit Follow-up Visit Follow-up Visit (Physician/SUSTAIN ENGINEER (Physician/SUSTAIN ENGINEER (Physician/SUSTAIN ENGINEER ) ) ) Arrival Mode Wheelchair Wheelchair Wheelchair Transfer Assistance None None Accompanied by self Patient Identification Verified (Name & Yes Yes Yes ) Patient Requires Transmission-Based No No Precautions Vital Signs Temperature (97.8 F-99.1 F) 96.3 F L 96.1 F L 97 F L Temperature Source Temporal Temporal Oral Pulse Rate (60-100) 68 81 62 Pulse Location Monitor Monitor Monitor Respiratory Rate (12-18) 16 16 18 Respiratory rate source Observation Observation Observation Oxygen Delivery Method Room Air Room Air Room Air Blood Pressure (90/60-120/80) 150/85 H 147/60 H 127/78 H Blood Pressure Mean (mm Hg) 106 89 94 Source Monitor Monitor Monitor Position Sitting Sitting Sitting Blood Pressure Location Left Arm Right Arm Right Arm History Since Last Visit- (Skip if this is Patient's initial visit) Have you changed medications since your No No last visit? Any new allergies or adverse reactions No No Had a fall/change in ADL's that may No No increase risk of falls Signs or symptoms of abuse and/or No No neglect since last visit Have you been in the hospital since your No No last visit? Has dressing in place as prescribed Yes Yes Yes Has compression in place as prescribed Yes N/A Yes Has offloadiing in place as prescribed N/A N/A Yes Experienced any changes in pain level or No No management Left Footwear Regular Shoe Right Footwear Regular Shoe Pain Scale: 0-10 Numeric Is Patient Pain Free? Yes Yes Yes WC - Nurse 1 - General Ulcer Measurement Start: 03/26/21 09:07 Freq: Status: Active Protocol: Activity Type Activity Date Activity User E-Sign Co-Sign Detail Recorded Client Recorded Date Recorded By Document 03/26/21 09:07 [facility] [id number] 03/26/21 09:10 [facility] Document 04/02/21 08:55 [facility] [id number] 04/02/21 08:58 [facility] Document 04/20/21 09:21 SC [id number] 04/20/21 09:26 SC 03/26/21 04/02/21 04/20/21 09:07 08:55 09:21 Wound Center Nurse 1 #3 L Stump/Post op -Combined with other wound No -Current Size (cm) - Length 0.8 0.6 1.4 -Current Size (cm) - Width 2 1 2.2 -Current Size (cm) - Depth 0.2 0.1 0.2 -Total Square Cm 1.6 0.6 3.08 -Photo Taken No No -Epithelialization Small 1-33% Small 1-33% -Tunneling No No -Undermining/Tunneling No No -Circular Undermining No No -Exudate Amt Medium Large Medium -Exudate Type Serosanguineous Serosanguineous Serous -Wound Margin Distinct, Distinct, Flat & Intact Outline Outline Attached Attached -Granulation Amt Small (1-33%) Large (67-100%) -Granulation Quality Weldon Pale,Weldon -Slough/Fibrin Yes No -Necrosis Amt Large (67-100%) Small (1-33%) -Necrotic Tissue Type Adherent Slough -Texture (Yudy-wound Skin Appearance) Assessed, Assessed, Assessed Scarring Excoriation, Scarring -Moisture (Yudy-wound Skin Appearance) Assessed,Dry/ Assessed Assessed Scaly -Color (Yudy-wound Skin Appearance) Assessed Assessed, Assessed Erythema -Temperature (Yudy-wound Skin No Abnormality No Abnormality No Abnormality Appearance) (Pt Warm) (Pt Warm) (Pt Warm) -Tenderness on Palpation (Yudy-wound No No No Skin Appearance) -Ulcer Cleansing Soap and Water Soap and Water Soap and Water -Foul Odor after Cleansing No No No -Anesthetic Used 5% Lidocaine 5% Lidocaine 4% Lidocaine Gel Gel Solution Lower Limb Edema Present NA WC - Nurse 2 - General Ulcer CM Notes Start: 03/26/21 09:07 Freq: Status: Active Protocol: Activity Type Activity Date Activity User E-Sign Co-Sign Detail Recorded Client Recorded Date Recorded By Document 03/26/21 09:30 [id number] 03/26/21 09:38 Document 04/02/21 09:05 [id number] 04/02/21 09:13 Document 04/20/21 10:32 PL Desktop 04/20/21 10:33 PL 03/26/21 04/02/21 04/20/21 09:30 09:05 10:32 Wound Center Nurse 2 #3 L Stump/Post op -Time 09:36 09:05 09:39 -Correct Patient Yes Yes Yes -Correct Side, Site, Position Yes Yes Yes -Correct Procedure Yes Yes Yes -Procedure Performed Yes Yes Yes -Type of Procedure Debridement Debridement Debridement -Clinical Debridement Subcutaneous Subcutaneous Subcutaneous -Tissue Removed Subcutaneous Subcutaneous Subcutaneous -Post Debridement (cm) - Length 1.0 1.9 1.4 -Post Debridement (cm) - Width 2.2 2.8 2.2 -Post Debridement (cm) - Depth 0.1 1.0 1.8 -Total Square (Post) (cm) 2.20 5.32 3.08 -Area of Debridement (cm) - Length 1.0 1.9 1.4 -Area of Debridement (cm) - Width 2.2 2.8 2.2 -Total Square (Area) (cm) 2.20 5.32 3.08 -Tunneling No No No -Undermining/Tunneling No No No -Circular Undermining No No No -Wound/Ulcer Outcome Not Healed Not Healed Not Healed -Ulcer Cleansing Rinsed/ Rinsed/ Rinsed/ Irrigated with Irrigated with Irrigated with Saline Saline Saline -Foul Odor after Cleansing No No No -Bioengineered Tissue Yes No No -Type of Bioengineered Tissue Theraskin -Expiration Date 05/01/24 -Product Lot Number [id number] -Percent Used 100 -Lot number of Saline Used [id number] -Bleeding Controlled with Pressure Pressure Pressure -Offloading No No -Treatment Response Procedure Procedure Procedure Tolerated Well Tolerated Well Tolerated Well -Debridement - Subq, 1st 20sq cm No Yes Yes -Apply Skin Sub - 1st 25 sq cm - Legs 1 -Theraskin (per sq cm) 3 Pain Scale: 0-10 Numeric Is Patient Pain Free? Yes Yes Yes - Nurse 3 - General Ulcer D/C NN Start: 03/26/21 09:07 Freq: Status: Active Protocol: Activity Type Activity Date Activity User E-Sign Co-Sign Detail Recorded Client Recorded Date Recorded By Document 03/26/21 09:39 [id number] 03/26/21 09:40 Document 04/02/21 09:21 [place] [id number] 04/02/21 09:21 [place] Document 04/20/21 09:59 DE [id number] 04/20/21 10:00 AK 03/26/21 04/02/21 04/20/21 09:39 09:21 09:59 Wound Care Nurse 3 #3 L Stump/Post op -Ulcer Cleansing Rinsed/ Soap and Water Rinsed/ Irrigated with Irrigated with Saline Saline -Foul Odor after Cleansing No No No -Negative Pressure Wound Therapy N/A N/A -Primary Dressing Applied Mepilex Border Aquacel AG 2x2, Aquacel AG 4x4, Aquacel AG 4x4, Mepilex Border Mepilex Border -Aquacel AG 4x4 1 1 -Aquacel AG 2x2 1 -Mepilex Border 1 1 3 Left -Lotion applied to leg before No No compression wrap -Compression Wrap Chailno Wrap Chalino Wrap Pain Scale: 0-10 Numeric Is Patient Pain Free? Yes Yes - Visit Discharge Discharge Condition Stable Stable Ambulatory Status Wheelchair Wheelchair Transportation Private Auto Private Auto Accompanied by daughter Medication Reconcilliation completed & Yes No provided to patient/care provider Clinical Summary of Care Provided Yes Yes Assessment/Plan Assessment/Plan (1) Pressure ulcer of BKA stump, stage 4: CODE(S): T87.89 - Other complications of amputation stump; L89.894 - Pressure ulcer of other site, stage 4 (2) Below-knee amputation of left lower extremity: CODE(S): S88.112A - Complete traumatic amputation at level between knee and ankle, left lower leg, initial encounter (3) Diabetes: CODE(S): E11.9 - Type 2 diabetes mellitus without complications (4) Smoker: CODE(S): F17.200 - Nicotine dependence, unspecified, uncomplicated (5) Diabetes mellitus with ulcer of lower extremity: CODE(S): E11.622 - Type 2 diabetes mellitus with other skin ulcer; L97.909 - Non-pressure chronic ulcer of unspecified part of unspecified lower leg with unspecified severity PLAN: The patient completed 10 applications of TheraSkin. Aquacel Ag applied to the left BKA stump ulcer today. Covered with Mepilex dressing and Chalino wrap applied to the left BKA stump for compression. Continue Aquacel Ag daily dressing changes to the left BKA stump ulcer. Place A&D ointment 1-2 times per day on the periwound. Use an CHALINO wrap on the left BKA stump for compression. No bone exposure noted today. Completed the Zosyn IV and Doxycycline po on 12/18/20. Encouraged high protein diet to help with wound healing and low carb diet to help keep better control of blood sugars. He has moved into his apartment. Follow up 1 week. Follow-up sooner or report to the emergency department should new or concerning symptoms arise. Note: [employer] speech recognition silk printer software was used to create portions of this document. Sound-alike and misspelled words, as well as other silk printer errors may be contained in the documentation.
== END 2021-04-23 23:59 ==
LOC: WC 09:00
PROVIDERS: PCP Family Medicine; Visit Provider Nurse Practitioner Family
DX: T87.89 Other complications of amputation stump (principal); L89.894 Pressure ulcer of other site, stage 4; E11.622 Type 2 diabetes mellitus with other skin ulcer; F17.200 Nicotine dependence, unspecified, uncomplicated; Y84.8 Other medical procedures as the cause of abnormal reaction of the patient, or of later complication, without mention of misadventure at the time of the procedure
CPT/HCPCS: 11042; 15271; Q4121

== ENCOUNTER 2021-05-14 09:00 | Outpatient (RCR) | payer MEDICARE, MEDICAID, SELFPAY ==
[2021-04-24 00:37] VITALS: BP 127/78; PULSE 62; RESP 18; TEMP 36.1
[2021-04-30 08:40] VITALS: BP 161/82; PULSE 57; TEMP 35.7
--- NOTE | 2021-04-30 09:17 | PN.PCM_ITS ---
History of Present Illness Date of Service: 04/30/21 Chief Complaint: Ulcer on left BKA after I&D of a diabetic abscess/hematoma on 11/06/20 History of Wound: Surgery on 11/06/20 - Surgical preparation left below knee amputation stump with incision and drainage and excisional debridement with partial ostectomy tibia for osteomyelitis and evacuation hematoma for draining diabetic ulcer abscess. (He had his Left BKA on 04/17/20). Operative tissue and bone cultures were negative. Wound cultures from 11/02/20 positive for MSSA, Enterobacter cloacae complex, and Corynebacterium amycolatum. He was at [facility], Zosyn IV and Doxycycline po which are now completed. He is now living in an apartment. He has has completed ten applications of Theraskin which did help decrease his ulcer size. Wound care - He has had 10 applications of Theraskin. Wound care will now be Aquacel-Ag every other day covered with mepilex. CHALINO wrap for compression. Prealbumin 9.9 on 11/07/20. Today he denies any fever. He states his appetite is good. Progress of Wound: Left BKA stump ulcer is beefy pink. There is some hypergranulation tissue present. There is a little bit of depth on the distal medial aspect of the ulcer. Objective Data Objective Data Vital Signs: Vital Signs Temp Pulse Resp BP 96.2 F L 57 L 18 161/82 H 04/30/21 08:40 04/30/21 08:40 04/24/21 00:37 04/30/21 08:40 Charges/Coding Procedures Integumentary 111xxx-113xx: 74966 Ria subq tissue 20 sq cm/< Physical Exam Const alert and oriented x3 General Appearance: cooperative HEENT normocephalic Resp normal respiratory effort Cardio regular rate Extremity normal capillary refill Skin Wound Narrative: Left BKA stump ulcer is beefy pink. There is some hypergranulation tissue present. There is a little bit of depth on the distal medial aspect of the ulcer. Neuro CN's II-XII intact bilaterally Cranial Nerves: CN normal except as noted Psych Appearance: grossly normal Thought Process: normal thought process Debridement Note Debridement Note Wound debrided: BKA stump ulcer Laterality: Left Wound Grade/Stage: Stage IV Type of Debridement: Excisional debridement Anesthesia Used: 5% Lidocaine Gel Depth: Down to and including healthy tissue and in the subcutaneous layer Percentage of wound debrided: 100 Instrument Used: 3mm curette Tissue Removed: Subcutaneous tissue and slough Severity: Fat Layer Exposed Amount of bleeding with debridement: Mild Bleeding Controlled with: Pressure and Compression and gauze Patient tolerated procedure: Patient tolerated procedure well Post-Debridement Measurements and Additional Note: Post-Debridement Measurements/Treatment FREDI - Nurse 1 - General Ulcer Assessment Start: 04/30/21 08:39 Freq: Status: Active Protocol: ARLETH Activity Type Activity Date Activity User E-Sign Co-Sign Detail Recorded Client Recorded Date Recorded By Document 04/30/21 08:40 KATERINA [id number] 04/30/21 08:44 KATERINA Document 04/30/21 08:47 KATERINA [id number] 04/30/21 08:47 AK 04/30/21 04/30/21 08:40 08:47 WC - Today's Visit Information Type of service Follow-up Visit (Physician/LEARNING SUPPORT AIDE ) Arrival Mode Wheelchair Patient Identification Verified (Name & Yes ) Patient Requires Transmission-Based No Precautions Safety Precautions NA Vital Signs Temperature (97.8 F-99.1 F) 96.2 F L Temperature Source Temporal Pulse Rate (60-100) 57 L Pulse Location Monitor Blood Pressure (90/60-120/80) 161/82 H Blood Pressure Mean (mm Hg) 108 Source Monitor History Since Last Visit- (Skip if this is Patient's initial visit) Have you changed medications since your No Yes last visit? Any new allergies or adverse reactions No Had a fall/change in ADL's that may No increase risk of falls Signs or symptoms of abuse and/or No neglect since last visit Have you been in the hospital since your No last visit? Has dressing in place as prescribed Yes Has compression in place as prescribed Yes Has offloadiing in place as prescribed N/A Experienced any changes in pain level or No management Right Footwear Regular Shoe Pain Scale: 0-10 Numeric Is Patient Pain Free? Yes Yes FREDI Torres Nurse 1 - General Ulcer Measurement Start: 04/30/21 08:39 Freq: Status: Active Protocol: Activity Type Activity Date Activity User E-Sign Co-Sign Detail Recorded Client Recorded Date Recorded By Document 04/30/21 08:40 KATERINA [id number] 04/30/21 08:44 AK 04/30/21 08:40 Wound Center Nurse 1 #3 L Stump/Post op -Combined with other wound No -Current Size (cm) - Length 1.1 -Current Size (cm) - Width 2.3 -Current Size (cm) - Depth 0.1 -Total Square Cm 2.53 -Photo Taken No -Tunneling No -Undermining/Tunneling No -Circular Undermining No -Change in Wound Grade/Stage No -Exudate Amt Medium -Exudate Type Serosanguineous -Wound Margin Distinct, Outline Attached -Granulation Quality N/A -Slough/Fibrin No -Necrosis Amt None Present (0 %) -Structure Exposed N/A -Texture (Yudy-wound Skin Appearance) No Abnormality, Assessed -Moisture (Yudy-wound Skin Appearance) No Abnormality, Assessed -Color (Yudy-wound Skin Appearance) No Abnormality, Assessed -Temperature (Yudy-wound Skin No Abnormality Appearance) (Pt Warm) -Tenderness on Palpation (Yudy-wound No Skin Appearance) -Ulcer Cleansing Rinsed/ Irrigated with Saline -Foul Odor after Cleansing No -Anesthetic Used 4% Lidocaine Solution WC - Nurse 2 - General Ulcer CM Notes Start: 04/30/21 08:39 Freq: Status: Active Protocol: Activity Type Activity Date Activity User E-Sign Co-Sign Detail Recorded Client Recorded Date Recorded By Document 04/30/21 08:58 MARSHALL [id number] 04/30/21 09:01 MARSHALL 04/30/21 08:58 Wound Center Nurse 2 -Time 08:59 -Correct Patient Yes -Correct Side, Site, Position Yes -Correct Procedure Yes -Procedure Performed Yes -Type of Procedure Debridement -Clinical Debridement Subcutaneous -Tissue Removed Subcutaneous -Post Debridement (cm) - Length 0.9 -Post Debridement (cm) - Width 1.8 -Post Debridement (cm) - Depth 0.7 -Total Square (Post) (cm) 1.62 -Area of Debridement (cm) - Length 0.9 -Area of Debridement (cm) - Width 1.8 -Total Square (Area) (cm) 1.62 -Tunneling No -Undermining/Tunneling No -Circular Undermining No -Wound/Ulcer Outcome Not Healed -Ulcer Cleansing Rinsed/ Irrigated with Saline -Foul Odor after Cleansing No -Bioengineered Tissue No -Bleeding Controlled with Pressure -Offloading No -Treatment Response Procedure Tolerated Well -Debridement - Subq, 1st 20sq cm Yes Pain Scale: 0-10 Numeric Is Patient Pain Free? Yes - Nurse 3 - General Ulcer D/C NN Start: 04/30/21 08:39 Freq: Status: Active Protocol: Activity Type Activity Date Activity User E-Sign Co-Sign Detail Recorded Client Recorded Date Recorded By Document 04/30/21 09:11 DL [id number] 04/30/21 09:12 DL 04/30/21 09:11 Wound Care Nurse 3 #3 L Stump/Post op -Ulcer Cleansing Rinsed/ Irrigated with Saline -Foul Odor after Cleansing No -Primary Dressing Applied Aquacel AG 2x2, Mepilex Border -Aquacel AG 2x2 1 -Mepilex Border 1 Treatment Response Procedure Tolerated Well Pain Scale: 0-10 Numeric Is Patient Pain Free? Yes - Visit Discharge Discharge Condition Stable Ambulatory Status Wheelchair Assessment/Plan Assessment/Plan (1) Diabetes mellitus with ulcer of lower extremity: CODE(S): E11.622 - Type 2 diabetes mellitus with other skin ulcer; L97.909 - Non-pressure chronic ulcer of unspecified part of unspecified lower leg with unspecified severity (2) Pressure ulcer of BKA stump, stage 4: CODE(S): T87.89 - Other complications of amputation stump; L89.894 - Pressure ulcer of other site, stage 4 (3) Below-knee amputation of left lower extremity: CODE(S): S88.112A - Complete traumatic amputation at level between knee and ankle, left lower leg, initial encounter (4) Diabetes: CODE(S): E11.9 - Type 2 diabetes mellitus without complications (5) Smoker: CODE(S): F17.200 - Nicotine dependence, unspecified, uncomplicated PLAN: The patient completed 10 applications of TheraSkin. Aquacel Ag applied to the left BKA stump ulcer today. Covered with Mepilex dressing and Chalino wrap applied to the left BKA stump for compression. Continue Aquacel Ag dressing changes to the left BKA stump ulcer and cover with Mepilex every other day. Place A&D ointment 1-2 times per day on the periwound. Use an CHALINO wrap on the left BKA stump for compression. No bone exposure noted today. Completed the Zosyn IV and Doxycycline po on 12/18/20. Encouraged high protein diet to help with wound healing and low carb diet to help keep better control of blood sugars. He has moved into his apartment. Follow up 2 weeks. Follow-up sooner or report to the emergency department should new or concerning symptoms arise.
[2021-05-14 08:42] VITALS: BP 168/93; PULSE 57; RESP 16; TEMP 36.4
--- NOTE | 2021-05-14 09:20 | PN.PCM_ITS ---
History of Present Illness Date of Service: 05/14/21 Chief Complaint: Ulcer on left BKA after I&D of a diabetic abscess/hematoma on 11/06/20 History of Wound: Surgery on 11/06/20 - Surgical preparation left below knee amputation stump with incision and drainage and excisional debridement with partial ostectomy tibia for osteomyelitis and evacuation hematoma for draining diabetic ulcer abscess. (He had his Left BKA on 04/17/20). Operative tissue and bone cultures were negative. Wound cultures from 11/02/20 positive for MSSA, Enterobacter cloacae complex, and Corynebacterium amycolatum. He was at [facility], Zosyn IV and Doxycycline po which are now completed. He is now living in an apartment. He has has completed ten applications of Theraskin which did help decrease his ulcer size. Wound care - He has had 10 applications of Theraskin. Wound care will now be Aquacel-Ag every other day covered with mepilex. CHALINO wrap for compression. Prealbumin 9.9 on 11/07/20. Today he denies any fever. He states his appetite is good. Progress of Wound: Left BKA stump ulcer is beefy pink. The depth has decreased and there is not as much hypergranulation present today. Objective Data Objective Data Vital Signs: Vital Signs Temp Pulse Resp BP 97.5 F L 57 L 16 168/93 H 05/14/21 08:42 05/14/21 08:42 05/14/21 08:42 05/14/21 08:42 Oxygen Delivery Method Room Air Charges/Coding Procedures Integumentary 111xxx-113xx: 78053 Ria subq tissue 20 sq cm/< Physical Exam Const alert and oriented x3 HEENT normocephalic Head and Scalp: atraumatic Resp normal respiratory effort Cardio regular rate Extremity normal capillary refill and no calf tenderness Skin Wound Narrative: Left BKA stump ulcer is beefy pink. There is decreased depth to the ulcer and there was minimal hypergranulation present. Neuro CN's II-XII intact bilaterally Psych Appearance: grossly normal Debridement Note Debridement Note Wound debrided: BKA stump ulcer Laterality: Left Type of Debridement: Excisional debridement Anesthesia Used: 5% Lidocaine Gel Depth: Down to and including healthy tissue and in the subcutaneous layer Percentage of wound debrided: 100 Instrument Used: 3mm curette Tissue Removed: Subcutaneous tissue and slough Severity: Fat Layer Exposed Bleeding Controlled with: Pressure Patient tolerated procedure: Patient tolerated procedure well Post-Debridement Measurements and Additional Note: Post-Debridement Measurements/Treatment - Nurse 1 - General Ulcer Assessment Start: 04/30/21 08:39 Freq: Status: Active Protocol: ARLETH Activity Type Activity Date Activity User E-Sign Co-Sign Detail Recorded Client Recorded Date Recorded By Document 04/30/21 08:40 AK [id number] 04/30/21 08:44 AK Document 04/30/21 08:47 AK [id number] 04/30/21 08:47 AK Document 05/14/21 08:42 BMF [id number] 05/14/21 08:46 BMF 04/30/21 04/30/21 05/14/21 08:40 08:47 08:42 - Today's Visit Information Type of service Follow-up Visit Follow-up Visit (Physician/[employer] (Physician/[employer] ) ) Arrival Mode Wheelchair Wheelchair Transfer Assistance None Patient Identification Verified (Name & Yes Yes ) Patient Requires Transmission-Based No No Precautions Safety Precautions NA Vital Signs Temperature (97.8 F-99.1 F) 96.2 F L 97.5 F L Temperature Source Temporal Temporal Pulse Rate (60-100) 57 L 57 L Pulse Location Monitor Monitor Respiratory Rate (12-18) 16 Respiratory rate source Observation Oxygen Delivery Method Room Air Blood Pressure (90/60-120/80) 161/82 H 168/93 H Blood Pressure Mean (mm Hg) 108 118 Source Monitor Monitor Position Sitting Blood Pressure Location Right Arm History Since Last Visit- (Skip if this is Patient's initial visit) Have you changed medications since your No Yes Yes last visit? Any new allergies or adverse reactions No No Had a fall/change in ADL's that may No No increase risk of falls Signs or symptoms of abuse and/or No No neglect since last visit Have you been in the hospital since your No No last visit? Has dressing in place as prescribed Yes Yes Has compression in place as prescribed Yes No Has offloadiing in place as prescribed N/A N/A Experienced any changes in pain level or No No management Right Footwear Regular Shoe Regular Shoe Pain Scale: 0-10 Numeric Is Patient Pain Free? Yes Yes Yes - Nurse 1 - General Ulcer Measurement Start: 04/30/21 08:39 Freq: Status: Active Protocol: Activity Type Activity Date Activity User E-Sign Co-Sign Detail Recorded Client Recorded Date Recorded By Document 04/30/21 08:40 AK [id number] 04/30/21 08:44 AK Document 05/14/21 08:42 BMF [id number] 05/14/21 08:46 BMF 04/30/21 05/14/21 08:40 08:42 Wound Center Nurse 1 #3 L Stump/Post op -Combined with other wound No No -Current Size (cm) - Length 1.1 1.5 -Current Size (cm) - Width 2.3 2.2 -Current Size (cm) - Depth 0.1 0.1 -Total Square Cm 2.53 3.30 -Date of Last Picture (Recall this 05/14/21 field) -Photo Taken No Yes -Epithelialization Small 1-33% -Tunneling No No -Undermining/Tunneling No No -Circular Undermining No No -Change in Wound Grade/Stage No -Exudate Amt Medium Medium -Exudate Type Serosanguineous Serosanguineous -Wound Margin Distinct, Distinct, Outline Outline Attached Attached -Granulation Amt Large (67-100%) -Granulation Quality N/A Red -Slough/Fibrin No Yes -Necrosis Amt None Present (0 Small (1-33%) %) -Necrotic Tissue Type Adherent Slough -Structure Exposed N/A -Texture (Yudy-wound Skin Appearance) No Abnormality, Assessed, Assessed Scarring -Moisture (Yudy-wound Skin Appearance) No Abnormality, Assessed Assessed -Color (Yudy-wound Skin Appearance) No Abnormality, Assessed Assessed -Temperature (Yudy-wound Skin No Abnormality No Abnormality Appearance) (Pt Warm) (Pt Warm) -Tenderness on Palpation (Yudy-wound No No Skin Appearance) -Ulcer Cleansing Rinsed/ Rinsed/ Irrigated with Irrigated with Saline Saline -Foul Odor after Cleansing No No -Anesthetic Used 4% Lidocaine 5% Lidocaine Solution Gel WC - Nurse 2 - General Ulcer CM Notes Start: 04/30/21 08:39 Freq: Status: Active Protocol: Activity Type Activity Date Activity User E-Sign Co-Sign Detail Recorded Client Recorded Date Recorded By Document 04/30/21 08:58 [id number] 04/30/21 09:01 Document 05/14/21 09:01 [id number] 05/14/21 09:06 04/30/21 05/14/21 08:58 09:01 Wound Center Nurse 2 #3 L Stump/Post op -Time 08:59 09:02 -Correct Patient Yes Yes -Correct Side, Site, Position Yes Yes -Correct Procedure Yes Yes -Procedure Performed Yes Yes -Type of Procedure Debridement Debridement -Clinical Debridement Subcutaneous Subcutaneous -Tissue Removed Subcutaneous Subcutaneous -Post Debridement (cm) - Length 0.9 1.2 -Post Debridement (cm) - Width 1.8 2.3 -Post Debridement (cm) - Depth 0.7 0.3 -Total Square (Post) (cm) 1.62 2.76 -Area of Debridement (cm) - Length 0.9 1.2 -Area of Debridement (cm) - Width 1.8 2.3 -Total Square (Area) (cm) 1.62 2.76 -Tunneling No No -Undermining/Tunneling No No -Circular Undermining No No -Wound/Ulcer Outcome Not Healed Not Healed -Ulcer Cleansing Rinsed/ Wound Cleanser Irrigated with Saline -Foul Odor after Cleansing No No -Bioengineered Tissue No No -Bleeding Controlled with Pressure Pressure -Offloading No No -Type of Offloading Knee Walker -Treatment Response Procedure Procedure Tolerated Well Tolerated Well -Debridement - Subq, 1st 20sq cm Yes Yes Pain Scale: 0-10 Numeric Is Patient Pain Free? Yes Yes - Nurse 3 - General Ulcer D/C NN Start: 04/30/21 08:39 Freq: Status: Active Protocol: Activity Type Activity Date Activity User E-Sign Co-Sign Detail Recorded Client Recorded Date Recorded By Document 04/30/21 09:11 DL [id number] 04/30/21 09:12 DL Document 05/14/21 09:12 [facility] [id number] 05/14/21 09:12 BM 04/30/21 05/14/21 09:11 09:12 Wound Care Nurse 3 #3 L Stump/Post op -Ulcer Cleansing Rinsed/ Rinsed/ Irrigated with Irrigated with Saline Saline -Foul Odor after Cleansing No No -Primary Dressing Applied Aquacel AG 2x2, Aquacel AG 4x4, Mepilex Border Mepilex Border -Aquacel AG 4x4 1 -Aquacel AG 2x2 1 -Mepilex Border 1 1 Treatment Response Procedure Procedure Tolerated Well Tolerated Well Pain Scale: 0-10 Numeric Is Patient Pain Free? Yes Yes WC - Visit Discharge Discharge Condition Stable Stable Ambulatory Status Wheelchair Wheelchair Transportation transport Assessment/Plan Assessment/Plan (1) Diabetes mellitus with ulcer of lower extremity: CODE(S): E11.622 - Type 2 diabetes mellitus with other skin ulcer; L97.909 - Non-pressure chronic ulcer of unspecified part of unspecified lower leg with unspecified severity (2) Pressure ulcer of BKA stump, stage 4: CODE(S): T87.89 - Other complications of amputation stump; L89.894 - Pressure ulcer of other site, stage 4 (3) Below-knee amputation of left lower extremity: CODE(S): S88.112A - Complete traumatic amputation at level between knee and ankle, left lower leg, initial encounter (4) Diabetes: CODE(S): E11.9 - Type 2 diabetes mellitus without complications (5) Smoker: CODE(S): F17.200 - Nicotine dependence, unspecified, uncomplicated PLAN: The patient completed 10 applications of TheraSkin. Aquacel Ag applied to the left BKA stump ulcer today. Covered with Mepilex dressing and Chalino wrap applied to the left BKA stump for compression. Continue Aquacel Ag dressing changes to the left BKA stump ulcer and cover with Mepilex every other day. Place A&D ointment 1-2 times per day on the periwound. Use an CHALINO wrap on the left BKA stump for compression. No bone exposure noted today. Completed the Zosyn IV and Doxycycline po on 12/18/20. Encouraged high protein diet to help with wound healing and low carb diet to help keep better control of blood sugars. He has moved into his apartment. Follow up 2 weeks. Follow-up sooner or report to the emergency department should new or concerning symptoms arise.
== END 2021-05-21 23:59 ==
LOC: WC 09:00
PROVIDERS: PCP Family Medicine; Visit Provider Nurse Practitioner Family
DX: E11.622 Type 2 diabetes mellitus with other skin ulcer (principal); T87.89 Other complications of amputation stump; L98.492 Non-pressure chronic ulcer of skin of other sites with fat layer exposed; F17.200 Nicotine dependence, unspecified, uncomplicated; Y83.5 Amputation of limb(s) as the cause of abnormal reaction of the patient, or of later complication, without mention of misadventure at the time of the procedure
CPT/HCPCS: 11042

== ENCOUNTER 2021-06-04 09:00 | Outpatient (RCR) | payer MEDICARE, MEDICAID, SELFPAY ==
[2021-05-22 00:30] VITALS: BP 168/93; PULSE 57; RESP 16; TEMP 36.4
[2021-06-04 09:04] VITALS: BP 140/87; PULSE 80; RESP 20; TEMP 35.7
--- NOTE | 2021-06-04 09:25 | PCM.WC.PN ---
History of Present Illness Date of Service: 06/04/21 Chief Complaint: Ulcer on left BKA after I&D of a diabetic abscess/hematoma on 11/06/20 History of Wound: Surgery on 11/06/20 - Surgical preparation left below knee amputation stump with incision and drainage and excisional debridement with partial ostectomy tibia for osteomyelitis and evacuation hematoma for draining diabetic ulcer abscess. (He had his Left BKA on 04/17/20). Operative tissue and bone cultures were negative. Wound cultures from 11/02/20 positive for MSSA, Enterobacter cloacae complex, and Corynebacterium amycolatum. He was at [place] [facility], Zosyn IV and Doxycycline po which are now completed. He is now living in an apartment. He has has completed ten applications of Theraskin which did help decrease his ulcer size. Wound care - He has had 10 applications of Theraskin. Wound care will now be Aquacel-Ag every other day covered with mepilex. CHALINO wrap for compression. Prealbumin 9.9 on 11/07/20. Today he denies any fever. He states his appetite is good. Progress of Wound: Left BKA stump ulcer is pink and stable. Objective Data Objective Data Vital Signs: Vital Signs Temp Pulse Resp BP 96.2 F L 80 20 H 140/87 H 06/04/21 09:04 06/04/21 09:04 06/04/21 09:04 06/04/21 09:04 Charges/Coding Procedures Integumentary 111xxx-113xx: 39676 Ria subq tissue 20 sq cm/< Physical Exam Const alert and oriented x3 General Appearance: cooperative HEENT normocephalic Head and Scalp: atraumatic Resp normal respiratory effort Cardio regular rate Extremity normal capillary refill Skin Wound Narrative: Left BKA stump ulcer is pink with granulation tissue surrounding it. Neuro CN's II-XII intact bilaterally Psych Appearance: grossly normal Debridement Note Debridement Note Wound debrided: BKA stump ulcer Laterality: Left Type of Debridement: Excisional debridement Anesthesia Used: 5% Lidocaine Gel Depth: Down to and including healthy tissue and in the subcutaneous layer Percentage of wound debrided: 100 Instrument Used: 3mm curette Tissue Removed: Subcutaneous tissue and slough Severity: Fat Layer Exposed Amount of bleeding with debridement: Mild Bleeding Controlled with: Pressure and Compression and gauze Patient tolerated procedure: Patient tolerated procedure well Post-Debridement Measurements and Additional Note: Post-Debridement Measurements/Treatment - Nurse 1 - General Ulcer Assessment Start: 06/04/21 09:04 Freq: Status: Active Protocol: ARLETH Activity Type Activity Date Activity User E-Sign Co-Sign Detail Recorded Client Recorded Date Recorded By Document 06/04/21 09:04 DL [id number] 06/04/21 09:08 DL 06/04/21 09:04 WC - Today's Visit Information Type of service Follow-up Visit (Physician/[employer] ) Arrival Mode Wheelchair Transfer Assistance None Patient Identification Verified (Name & Yes ) Patient Requires Transmission-Based No Precautions Finger Stick Blood Sugar(mg/dl) (if 110 indicated): Blood Sugar Stated by Patient Vital Signs Temperature (97.8 F-99.1 F) 96.2 F L Temperature Source Temporal Pulse Rate (60-100) 80 Pulse Location Monitor Respiratory Rate (12-18) 20 H Respiratory rate source Observation Blood Pressure (90/60-120/80) 140/87 H Blood Pressure Mean (mm Hg) 104 Source Monitor History Since Last Visit- (Skip if this is Patient's initial visit) Have you changed medications since your No last visit? Any new allergies or adverse reactions No Had a fall/change in ADL's that may No increase risk of falls Signs or symptoms of abuse and/or No neglect since last visit Have you been in the hospital since your No last visit? Has dressing in place as prescribed Yes Has compression in place as prescribed N/A Has offloadiing in place as prescribed Yes Experienced any changes in pain level or No management Left Footwear No Footwear Pain Scale: 0-10 Numeric Is Patient Pain Free? Yes - Nurse 1 - General Ulcer Measurement Start: 06/04/21 09:04 Freq: Status: Active Protocol: Activity Type Activity Date Activity User E-Sign Co-Sign Detail Recorded Client Recorded Date Recorded By Document 06/04/21 09:04 BRANDON [id number] 06/04/21 09:08 DL 06/04/21 09:04 Wound Center Nurse 1 #3 L Stump/Post op -Current Size (cm) - Length 0.8 -Current Size (cm) - Width 1.2 -Current Size (cm) - Depth 0.1 -Total Square Cm 0.96 -Photo Taken No -Exudate Amt Small -Exudate Type Serosanguineous -Wound Margin Distinct, Outline Attached -Granulation Amt Large (67-100%) -Granulation Quality Hyper- granulation,Red -Necrosis Amt None Present (0 %) -Structure Exposed N/A -Texture (Yudy-wound Skin Appearance) Scarring -Moisture (Yudy-wound Skin Appearance) No Abnormality -Color (Yudy-wound Skin Appearance) No Abnormality -Temperature (Yudy-wound Skin No Abnormality Appearance) (Pt Warm) -Tenderness on Palpation (Yudy-wound No Skin Appearance) -Ulcer Cleansing Rinsed/ Irrigated with Saline -Foul Odor after Cleansing No -Anesthetic Used 5% Lidocaine Gel Assessment/Plan Assessment/Plan (1) Diabetes mellitus with ulcer of lower extremity: CODE(S): E11.622 - Type 2 diabetes mellitus with other skin ulcer; L97.909 - Non-pressure chronic ulcer of unspecified part of unspecified lower leg with unspecified severity (2) Pressure ulcer of BKA stump, stage 4: CODE(S): T87.89 - Other complications of amputation stump; L89.894 - Pressure ulcer of other site, stage 4 (3) Below-knee amputation of left lower extremity: CODE(S): S88.112A - Complete traumatic amputation at level between knee and ankle, left lower leg, initial encounter (4) Diabetes: CODE(S): E11.9 - Type 2 diabetes mellitus without complications (5) Smoker: CODE(S): F17.200 - Nicotine dependence, unspecified, uncomplicated PLAN: The patient completed 10 applications of TheraSkin. Aquacel Ag applied to the left BKA stump ulcer today. Covered with Mepilex dressing and Chalino wrap applied to the left BKA stump for compression. Continue Aquacel Ag dressing changes to the left BKA stump ulcer and cover with Mepilex every other day. Place A&D ointment 1-2 times per day on the periwound. Use an CHALINO wrap on the left BKA stump for compression. Completed the Zosyn IV and Doxycycline po on 12/18/20. Encouraged high protein diet to help with wound healing and low carb diet to help keep better control of blood sugars. He has moved into his apartment. Follow up 2 weeks. Follow-up sooner or report to the emergency department should new or concerning symptoms arise.
== END 2021-06-21 23:59 | disposition home or self-care (01) ==
LOC: WC 09:00
PROVIDERS: PCP Family Medicine; Visit Provider Nurse Practitioner Family
DX: E11.622 Type 2 diabetes mellitus with other skin ulcer (principal); T87.89 Other complications of amputation stump; L97.822 Non-pressure chronic ulcer of other part of left lower leg with fat layer exposed; F17.200 Nicotine dependence, unspecified, uncomplicated; Y83.5 Amputation of limb(s) as the cause of abnormal reaction of the patient, or of later complication, without mention of misadventure at the time of the procedure; Z86.19 Personal history of other infectious and parasitic diseases
CPT/HCPCS: 11042

== ENCOUNTER 2021-07-16 09:00 | Outpatient (RCR) | payer MEDICARE, MEDICAID, SELFPAY ==
[2021-06-22 00:32] VITALS: BP 140/87; PULSE 80; RESP 20; TEMP 35.7
[2021-06-25 08:51] VITALS: BP 155/99; PULSE 69; RESP 16; TEMP 35.8
--- NOTE | 2021-06-25 12:08 | PN.PCM_ITS ---
History of Present Illness Date of Service: 06/25/21 Chief Complaint: Ulcer on left BKA after I&D of a diabetic abscess/hematoma on 11/06/20 History of Wound: Surgery on 11/06/20 - Surgical preparation left below knee amputation stump with incision and drainage and excisional debridement with partial ostectomy tibia for osteomyelitis and evacuation hematoma for draining diabetic ulcer abscess. (He had his Left BKA on 04/17/20). Operative tissue and bone cultures were negative. Wound cultures from 11/02/20 positive for MSSA, Enterobacter cloacae complex, and Corynebacterium amycolatum. He was at [facility], Zosyn IV and Doxycycline po which are now completed. He is now living in an apartment. He has has completed ten applications of Theraskin which did help decrease his ulcer size. Wound care - He has had 10 applications of Theraskin. Wound care will now be Aquacel-Ag every other day covered with mepilex. AMIE wrap for compression. Prealbumin 9.9 on 11/07/20. Today he denies any fever. He states his appetite is good. Progress of Wound: Left knee ulcer is improving slowly. He has gone to see [employer] about being refitted for his prosthesis so he can walk again. Objective Data Objective Data Vital Signs: Vital Signs Temp Pulse Resp BP 96.5 F L 69 16 155/99 H 06/25/21 08:51 06/25/21 08:51 06/25/21 08:51 06/25/21 08:51 Oxygen Delivery Method Room Air Charges/Coding Procedures Integumentary 111xxx-113xx: 15381 Ria subq tissue 20 sq cm/< Physical Exam Const alert and oriented x3 General Appearance: cooperative HEENT normocephalic Resp normal respiratory effort Cardio regular rate Extremity normal capillary refill Skin Wound Narrative: Left BKA stump ulcer is pink and smaller in size. Neuro CN's II-XII intact bilaterally Psych Appearance: grossly normal Debridement Note Debridement Note Wound debrided: BKA stump ulcer Laterality: Left Type of Debridement: Excisional debridement Anesthesia Used: 5% Lidocaine Gel Depth: Down to and including healthy tissue and in the subcutaneous layer Percentage of wound debrided: 100 Instrument Used: 3mm curette Tissue Removed: Nonviable tissue and slough Severity: Fat Layer Exposed Amount of bleeding with debridement: Mild Bleeding Controlled with: Pressure Patient tolerated procedure: Patient tolerated procedure well Post-Debridement Measurements and Additional Note: Post-Debridement Measurements/Treatment - Nurse 1 - General Ulcer Assessment Start: 06/25/21 08:51 Freq: Status: Active Protocol: ARLETH Activity Type Activity Date Activity User E-Sign Co-Sign Detail Recorded Client Recorded Date Recorded By Document 06/25/21 08:51 [facility] [id number] 06/25/21 08:55 [facility] 06/25/21 08:51 - Today's Visit Information Type of service Follow-up Visit (Physician/[employer] ) Arrival Mode Wheelchair Transfer Assistance None Patient Identification Verified (Name & Yes ) Patient Requires Transmission-Based No Precautions Vital Signs Temperature (97.8 F-99.1 F) 96.5 F L Temperature Source Temporal Pulse Rate (60-100) 69 Pulse Location Monitor Respiratory Rate (12-18) 16 Respiratory rate source Observation Oxygen Delivery Method Room Air Blood Pressure (90/60-120/80) 155/99 H Blood Pressure Mean (mm Hg) 117 Source Monitor Position Sitting Blood Pressure Location Left Arm History Since Last Visit- (Skip if this is Patient's initial visit) Have you changed medications since your No last visit? Any new allergies or adverse reactions No Had a fall/change in ADL's that may No increase risk of falls Signs or symptoms of abuse and/or No neglect since last visit Have you been in the hospital since your No last visit? Has dressing in place as prescribed Yes Has compression in place as prescribed N/A Has offloadiing in place as prescribed N/A Experienced any changes in pain level or No management Pain Scale: 0-10 Numeric Is Patient Pain Free? Yes [facility] Nurse 1 - General Ulcer Measurement Start: 06/25/21 08:51 Freq: Status: Active Protocol: Activity Type Activity Date Activity User E-Sign Co-Sign Detail Recorded Client Recorded Date Recorded By Document 06/25/21 08:51 [facility] [id number] 06/25/21 08:55 [facility] 06/25/21 08:51 Wound Center Nurse 1 #3 L Stump/Post op -Combined with other wound No -Current Size (cm) - Length 0.4 -Current Size (cm) - Width 0.6 -Current Size (cm) - Depth 0.2 -Total Square Cm 0.24 -Date of Last Picture (Recall this 06/25/21 field) -Photo Taken Yes -Epithelialization Small 1-33% -Tunneling No -Undermining/Tunneling No -Circular Undermining No -Exudate Amt Medium -Exudate Type Serosanguineous -Wound Margin Distinct, Outline Attached -Granulation Amt Medium (34-66%) -Granulation Quality [place] -Slough/Fibrin Yes -Necrosis Amt Medium (34-66%) -Necrotic Tissue Type Adherent Slough -Texture (Yudy-wound Skin Appearance) Assessed, Scarring -Moisture (Yudy-wound Skin Appearance) Assessed,Dry/ Scaly -Color (Yudy-wound Skin Appearance) Assessed -Temperature (Yudy-wound Skin No Abnormality Appearance) (Pt Warm) -Tenderness on Palpation (Yudy-wound No Skin Appearance) -Ulcer Cleansing Rinsed/ Irrigated with Saline -Foul Odor after Cleansing No -Anesthetic Used 4% Lidocaine Solution WC - Nurse 2 - General Ulcer CM Notes Start: 06/25/21 08:51 Freq: Status: Active Protocol: Activity Type Activity Date Activity User E-Sign Co-Sign Detail Recorded Client Recorded Date Recorded By Document 06/25/21 09:19 MARSHALL [id number] 06/25/21 09:20 MARSHALL 06/25/21 09:19 Wound Center Nurse 2 -Time 09:19 -Correct Patient Yes -Correct Side, Site, Position Yes -Correct Procedure Yes -Procedure Performed Yes -Type of Procedure Debridement -Clinical Debridement Subcutaneous -Tissue Removed Subcutaneous -Post Debridement (cm) - Length 0.4 -Post Debridement (cm) - Width 1.0 -Post Debridement (cm) - Depth 0.1 -Total Square (Post) (cm) 0.40 -Area of Debridement (cm) - Length 0.4 -Area of Debridement (cm) - Width 1.0 -Total Square (Area) (cm) 0.40 -Tunneling No -Undermining/Tunneling No -Circular Undermining No -Wound/Ulcer Outcome Not Healed -Ulcer Cleansing Rinsed/ Irrigated with Saline -Foul Odor after Cleansing No -Bioengineered Tissue No -Bleeding Controlled with Pressure -Treatment Response Procedure Tolerated Well -Offloading No -Assistive Device(s) Wheelchair -Debridement - Subq, 1st 20sq cm Yes Pain Scale: 0-10 Numeric Is Patient Pain Free? Yes WC - Nurse 3 - General Ulcer D/C NN Start: 06/25/21 08:51 Freq: Status: Active Protocol: Activity Type Activity Date Activity User E-Sign Co-Sign Detail Recorded Client Recorded Date Recorded By Document 06/25/21 09:32 NGUYỄN [id number] 06/25/21 09:33 NGUYỄN 06/25/21 09:32 Wound Care Nurse 3 #3 L Stump/Post op -Primary Dressing Applied Aquacel AG 2x2, Mepilex Border -Aquacel AG 2x2 1 -Mepilex Border 1 Pain Scale: 0-10 Numeric Is Patient Pain Free? Yes WC - Visit Discharge Discharge Condition Stable Ambulatory Status Wheelchair Transportation Private Auto Assessment/Plan Assessment/Plan (1) Diabetes mellitus with ulcer of lower extremity: CODE(S): E11.622 - Type 2 diabetes mellitus with other skin ulcer; L97.909 - Non-pressure chronic ulcer of unspecified part of unspecified lower leg with unspecified severity (2) Pressure ulcer of BKA stump, stage 4: CODE(S): T87.89 - Other complications of amputation stump; L89.894 - Pressure ulcer of other site, stage 4 (3) Below-knee amputation of left lower extremity: CODE(S): S88.112A - Complete traumatic amputation at level between knee and ankle, left lower leg, initial encounter (4) Diabetes: CODE(S): E11.9 - Type 2 diabetes mellitus without complications (5) Smoker: CODE(S): F17.200 - Nicotine dependence, unspecified, uncomplicated PLAN: The patient completed 10 applications of TheraSkin. Wound care - Aquacel Ag dressing to the left BKA stump ulcer and cover with Mepilex every other day. Place A&D ointment 1-2 times per day on the periwound. Use an AMIE wrap on the left BKA stump for compression. Completed the Zosyn IV and Doxycycline po on 12/18/20. Encouraged high protein diet to help with wound healing and low carb diet to help keep better control of blood sugars. He has been in to see [employer] about being able to use his prosthesis. He states they think they can place something on his stump to prevent pressure on the area where the ulcer is so once he his healed he could start to wear his prosthesis again so he is no wheel chair bound. Encouraged patient to stop smoking as it may have deleterious effects on wound healing. Follow up 2 weeks. Follow-up sooner or report to the emergency department should new or concerning symptoms arise.
[2021-07-09 09:08] VITALS: BP 168/91; PULSE 62; TEMP 35.8
--- NOTE | 2021-07-09 12:58 | PN.PCM_ITS ---
History of Present Illness Date of Service: 07/09/21 Chief Complaint: Ulcer on left BKA after I&D of a diabetic abscess/hematoma on 11/06/20 History of Wound: Surgery on 11/06/20 - Surgical preparation left below knee amputation stump with incision and drainage and excisional debridement with partial ostectomy tibia for osteomyelitis and evacuation hematoma for draining diabetic ulcer abscess. (He had his Left BKA on 04/17/20). Operative tissue and bone cultures were negative. Wound cultures from 11/02/20 positive for MSSA, Enterobacter cloacae complex, and Corynebacterium amycolatum. He was at [facility], Zosyn IV and Doxycycline po which are now completed. He is now living in an apartment. He has has completed ten applications of Theraskin which did help decrease his ulcer size. Wound care - He has had 10 applications of Theraskin. Wound care will now be Aquacel-Ag every other day covered with mepilex. AMIE wrap for compression. Prealbumin 9.9 on 11/07/20. Today he denies any fever. He states his appetite is good. Progress of Wound: Left knee ulcer is stable. The base of the ulcer is beefy pink. Will obtain a wound culture today to see if there is something that is slowing the ulcer from healing. Objective Data Objective Data Vital Signs: Vital Signs Temp Pulse Resp BP 96.5 F L 62 16 168/91 H 07/09/21 09:08 07/09/21 09:08 06/25/21 08:51 07/09/21 09:08 Oxygen Delivery Method Room Air Charges/Coding Procedures Integumentary 111xxx-113xx: 00434 Ria subq tissue 20 sq cm/< Physical Exam Const alert and oriented x3 General Appearance: cooperative HEENT normocephalic Resp normal respiratory effort Cardio regular rate Extremity normal capillary refill Skin Wound Narrative: Left BKA stump ulcer beefy pink at the base of the ulcer. The yudy wound is clear. Neuro CN's II-XII intact bilaterally Psych Appearance: grossly normal Debridement Note Debridement Note Wound debrided: BKA stump ulcer Laterality: Left Type of Debridement: Excisional debridement Anesthesia Used: 5% Lidocaine Gel Depth: Down to and including healthy tissue and in the subcutaneous layer Percentage of wound debrided: 100 Instrument Used: 3mm curette Tissue Removed: Nonviable tissue and slough Severity: Fat Layer Exposed Amount of bleeding with debridement: Mild Bleeding Controlled with: Pressure Patient tolerated procedure: Patient tolerated procedure well Post-Debridement Measurements and Additional Note: Post-Debridement Measurements/Treatment FREDI - Nurse 1 - General Ulcer Assessment Start: 06/25/21 08:51 Freq: Status: Active Protocol: ARLETH Activity Type Activity Date Activity User E-Sign Co-Sign Detail Recorded Client Recorded Date Recorded By Document 06/25/21 08:51 BMF [id number] 06/25/21 08:55 BMF Document 07/09/21 09:08 KR [id number] 07/09/21 09:10 KR 06/25/21 07/09/21 08:51 09:08 WC - Today's Visit Information Type of service Follow-up Visit Follow-up Visit (Physician/[employer] (Physician/[employer] ) ) Arrival Mode Wheelchair Wheelchair Transfer Assistance None Patient Identification Verified (Name & Yes Yes ) Patient Requires Transmission-Based No Precautions Vital Signs Temperature (97.8 F-99.1 F) 96.5 F L 96.5 F L Temperature Source Temporal Temporal Pulse Rate (60-100) 69 62 Pulse Location Monitor Monitor Respiratory Rate (12-18) 16 Respiratory rate source Observation Oxygen Delivery Method Room Air Blood Pressure (90/60-120/80) 155/99 H 168/91 H Blood Pressure Mean (mm Hg) 117 116 Source Monitor Monitor Position Sitting Semi-Fowlers Blood Pressure Location Left Arm Left Arm History Since Last Visit- (Skip if this is Patient's initial visit) Have you changed medications since your No No last visit? Any new allergies or adverse reactions No No Had a fall/change in ADL's that may No No increase risk of falls Signs or symptoms of abuse and/or No No neglect since last visit Have you been in the hospital since your No No last visit? Has dressing in place as prescribed Yes Yes Has compression in place as prescribed N/A N/A Has offloadiing in place as prescribed N/A N/A Experienced any changes in pain level or No No management Pain Scale: 0-10 Numeric Is Patient Pain Free? Yes Yes FREDI - Nurse 1 - General Ulcer Measurement Start: 06/25/21 08:51 Freq: Status: Active Protocol: Activity Type Activity Date Activity User E-Sign Co-Sign Detail Recorded Client Recorded Date Recorded By Document 06/25/21 08:51 [facility] [id number] 06/25/21 08:55 BM Document 07/09/21 09:08 KR [id number] 07/09/21 09:10 KR 06/25/21 07/09/21 08:51 09:08 Wound Center Nurse 1 #3 L Stump/Post op -Combined with other wound No -Current Size (cm) - Length 0.4 0.4 -Current Size (cm) - Width 0.6 0.9 -Current Size (cm) - Depth 0.2 0.2 -Total Square Cm 0.24 0.36 -Date of Last Picture (Recall this 06/25/21 field) -Photo Taken Yes -Epithelialization Small 1-33% -Tunneling No -Undermining/Tunneling No -Circular Undermining No -Exudate Amt Medium Small -Exudate Type Serosanguineous Serosanguineous -Wound Margin Distinct, Distinct, Outline Outline Attached Attached -Granulation Amt Medium (34-66%) Small (1-33%) -Granulation Quality [place] -Slough/Fibrin Yes -Necrosis Amt Medium (34-66%) None Present (0 %) -Necrotic Tissue Type Adherent Slough -Texture (Yudy-wound Skin Appearance) Assessed, Assessed, Scarring Scarring -Moisture (Yudy-wound Skin Appearance) Assessed,Dry/ No Abnormality, Scaly Assessed -Color (Yudy-wound Skin Appearance) Assessed No Abnormality, Assessed -Temperature (Yudy-wound Skin No Abnormality No Abnormality Appearance) (Pt Warm) (Pt Warm) -Tenderness on Palpation (Yudy-wound No Skin Appearance) -Ulcer Cleansing Rinsed/ Rinsed/ Irrigated with Irrigated with Saline Saline -Foul Odor after Cleansing No No -Anesthetic Used 4% Lidocaine 5% Lidocaine Solution Gel WC - Nurse 2 - General Ulcer CM Notes Start: 06/25/21 08:51 Freq: Status: Active Protocol: Activity Type Activity Date Activity User E-Sign Co-Sign Detail Recorded Client Recorded Date Recorded By Document 06/25/21 09:19 MARSHALL [id number] 06/25/21 09:20 Document 07/09/21 09:23 [id number] 07/09/21 09:29 JF 06/25/21 07/09/21 09:19 09:23 Wound Center Nurse 2 #3 L Stump/Post op -Time 09:19 -Correct Patient Yes Yes -Correct Side, Site, Position Yes Yes -Correct Procedure Yes Yes -Procedure Performed Yes Yes -Type of Procedure Debridement Debridement -Clinical Debridement Subcutaneous Subcutaneous -Tissue Removed Subcutaneous Subcutaneous -Post Debridement (cm) - Length 0.4 0.8 -Post Debridement (cm) - Width 1.0 0.6 -Post Debridement (cm) - Depth 0.1 0.1 -Total Square (Post) (cm) 0.40 0.48 -Area of Debridement (cm) - Length 0.4 0.8 -Area of Debridement (cm) - Width 1.0 0.6 -Total Square (Area) (cm) 0.40 0.48 -Tunneling No No -Undermining/Tunneling No No -Circular Undermining No No -Wound/Ulcer Outcome Not Healed Not Healed -Ulcer Cleansing Rinsed/ Rinsed/ Irrigated with Irrigated with Saline Saline -Foul Odor after Cleansing No No -Bioengineered Tissue No No -Bleeding Controlled with Pressure Pressure -Treatment Response Procedure Procedure Tolerated Well Tolerated Well -Offloading No No -Assistive Device(s) Wheelchair -Debridement - Subq, 1st 20sq cm Yes Yes Pain Scale: 0-10 Numeric Is Patient Pain Free? Yes Yes WC - Nurse 3 - General Ulcer D/C NN Start: 06/25/21 08:51 Freq: Status: Active Protocol: Activity Type Activity Date Activity User E-Sign Co-Sign Detail Recorded Client Recorded Date Recorded By Document 06/25/21 09:32 KR [id number] 06/25/21 09:33 KR Document 07/09/21 09:32 KR [id number] 07/09/21 09:32 KR Edit Result 07/09/21 09:32 KR (1) [id number] 07/09/21 09:33 KR (1) #3 L Stump/Post op - Primary Dressing Applied C Hydrogel ($) => C Hydrogel ($), => Mepilex Border - Mepilex Border => 3 06/25/21 07/09/21 09:32 09:32 Wound Care Nurse 3 #3 L Stump/Post op -Ulcer Cleansing Rinsed/ Irrigated with Saline -Primary Dressing Applied Aquacel AG 2x2, C Hydrogel ($), Mepilex Border Mepilex Border -Primary Dressing Covered/Secured with Dry Gauze, Secured with Tape -Aquacel AG 2x2 1 -Mepilex Border 1 3 Pain Scale: 0-10 Numeric Is Patient Pain Free? Yes Yes WC - Visit Discharge Discharge Condition Stable Stable Ambulatory Status Wheelchair Wheelchair Transportation Private Auto Private Auto Assessment/Plan Assessment/Plan (1) Diabetes mellitus with ulcer of lower extremity: CODE(S): E11.622 - Type 2 diabetes mellitus with other skin ulcer; L97.909 - Non-pressure chronic ulcer of unspecified part of unspecified lower leg with unspecified severity (2) Pressure ulcer of BKA stump, stage 4: CODE(S): T87.89 - Other complications of amputation stump; L89.894 - Pressure ulcer of other site, stage 4 (3) Below-knee amputation of left lower extremity: CODE(S): S88.112A - Complete traumatic amputation at level between knee and ankle, left lower leg, initial encounter (4) Diabetes: CODE(S): E11.9 - Type 2 diabetes mellitus without complications (5) Smoker: CODE(S): F17.200 - Nicotine dependence, unspecified, uncomplicated PLAN: The patient completed 10 applications of TheraSkin. Wound care - Collagen hydrogel covered with adpatic topped with Mepilex dressing to the left BKA stump ulcer every other day. Use an AMIE wrap on the left BKA stump for compression. Completed the Zosyn IV and Doxycycline po on 12/18/20. Wound culture obtained today, 07/09/21 due to the ulcer not improving as quickly as it had. Depending on the results of the culture, it may necessitate the need for treatment with antibiotics. Encouraged high protein diet to help with wound healing and low carb diet to help keep better control of blood sugars. He has been in to see [employer] about being able to use his prosthesis. He states they think they can place something on his stump to prevent pressure on the area where the ulcer is so once he his healed he could start to wear his prosthesis again so he is no wheel chair bound. Encouraged patient to stop smoking as it may have deleterious effects on wound healing. Follow up 1 week. Follow-up sooner or report to the emergency department should new or concerning symptoms arise.
[2021-07-16 08:54] VITALS: BP 138/87; PULSE 82; RESP 18; TEMP 36.2
--- NOTE | 2021-07-16 10:52 | PCM.WC.PN ---
History of Present Illness Date of Service: 07/16/21 Chief Complaint: Ulcer on left BKA after I&D of a diabetic abscess/hematoma on 11/06/20 History of Wound: Surgery on 11/06/20 - Surgical preparation left below knee amputation stump with incision and drainage and excisional debridement with partial ostectomy tibia for osteomyelitis and evacuation hematoma for draining diabetic ulcer abscess. (He had his Left BKA on 04/17/20). Operative tissue and bone cultures were negative. Wound cultures from 11/02/20 positive for MSSA, Enterobacter cloacae complex, and Corynebacterium amycolatum. Prealbumin 9.9 on 11/07/20. He was at [facility], Zosyn IV and Doxycycline po which are now completed. He is now living in an apartment. He has has completed ten applications of Theraskin which did help decrease his ulcer size. Wound care - He has had 10 applications of Theraskin. Wound care will now be Aquacel-Ag covered by gauze daily. AMIE wrap for compression. Wound culture from 07/09/21 positive for Staphylococcus aureus and Streptococcus agalactiae (B). He was started on Augmentin and a Probiotic. Today he denies any fever. He states his appetite is good. Progress of Wound: Left knee ulcer is stable. The base of the ulcer is beefy pink. He has some excoriation of his yudy wound which may be caused from the Mepilex dressing. Will stop that dressing and re-evaluate next week. Objective Data Objective Data Vital Signs: Vital Signs Temp Pulse Resp BP 97.2 F L 82 18 138/87 H 07/16/21 08:54 07/16/21 08:54 07/16/21 08:54 07/16/21 08:54 Oxygen Delivery Method Room Air Lab / Micro Data Micro: Microbiology 07/09/21 09:30 Wound - Below Knee Amputation Gram Stain - Final 07/09/21 09:30 Wound - Below Knee Amputation Wound Culture - Final Staphylococcus aureus Streptococcus agalactiae (B) 07/09/21 09:30 Wound - Below Knee Amputation Anaerobic Culture - Final No anaerobic bacteria isolated. Charges/Coding Procedures Integumentary 111xxx-113xx: [id number] Ria subq tissue 20 sq cm/< Physical Exam Const alert and oriented x3 General Appearance: cooperative HEENT normocephalic Resp normal respiratory effort Skin Wound Narrative: Left BKA ulcer is beefy pink. He has some excoriation of his yudy wound. Neuro CN's II-XII intact bilaterally Psych Appearance: grossly normal Debridement Note Debridement Note Wound debrided: BKA ulcer Laterality: Left Type of Debridement: Excisional debridement Anesthesia Used: 5% Lidocaine Gel Depth: Down to and including healthy tissue and in the subcutaneous layer Percentage of wound debrided: 100 Instrument Used: 3mm curette Tissue Removed: Able tissue and slough Severity: Fat Layer Exposed Amount of bleeding with debridement: Mild Bleeding Controlled with: Pressure Patient tolerated procedure: Patient tolerated procedure well Post-Debridement Measurements and Additional Note: Post-Debridement Measurements/Treatment - Nurse 1 - General Ulcer Assessment Start: 06/25/21 08:51 Freq: Status: Active Protocol: ARLETH Activity Type Activity Date Activity User E-Sign Co-Sign Detail Recorded Client Recorded Date Recorded By Document 06/25/21 08:51 [facility] [id number] 06/25/21 08:55 [facility] Document 07/09/21 09:08 [id number] 07/09/21 09:10 Document 07/16/21 08:54 [facility] [id number] 07/16/21 08:57 [facility] 06/25/21 07/09/21 07/16/21 08:51 09:08 08:54 - Today's Visit Information Type of service Follow-up Visit Follow-up Visit Follow-up Visit (Physician/QUALITY ASSURANCE MONITOR BODY (Physician/QUALITY ASSURANCE MONITOR BODY (Physician/QUALITY ASSURANCE MONITOR BODY ) ) ) Arrival Mode Wheelchair Wheelchair Wheelchair Transfer Assistance None None Patient Identification Verified (Name & Yes Yes Yes ) Patient Requires Transmission-Based No No Precautions Vital Signs Temperature (97.8 F-99.1 F) 96.5 F L 96.5 F L 97.2 F L Temperature Source Temporal Temporal Temporal Pulse Rate (60-100) 69 62 82 Pulse Location Monitor Monitor Monitor Respiratory Rate (12-18) 16 18 Respiratory rate source Observation Observation Oxygen Delivery Method Room Air Room Air Blood Pressure (90/60-120/80) 155/99 H 168/91 H 138/87 H Blood Pressure Mean (mm Hg) 117 116 104 Source Monitor Monitor Monitor Position Sitting Semi-Fowlers Sitting Blood Pressure Location Left Arm Left Arm Right Arm History Since Last Visit- (Skip if this is Patient's initial visit) Have you changed medications since your No No No last visit? Any new allergies or adverse reactions No No No Had a fall/change in ADL's that may No No No increase risk of falls Signs or symptoms of abuse and/or No No No neglect since last visit Have you been in the hospital since your No No No last visit? Has dressing in place as prescribed Yes Yes Yes Has compression in place as prescribed N/A N/A N/A Has offloadiing in place as prescribed N/A N/A N/A Experienced any changes in pain level or No No No management Pain Scale: 0-10 Numeric Is Patient Pain Free? Yes Yes Yes WC - Nurse 1 - General Ulcer Measurement Start: 06/25/21 08:51 Freq: Status: Active Protocol: Activity Type Activity Date Activity User E-Sign Co-Sign Detail Recorded Client Recorded Date Recorded By Document 06/25/21 08:51 [facility] [id number] 06/25/21 08:55 [facility] Document 07/09/21 09:08 [id number] 07/09/21 09:10 KR Document 07/16/21 08:54 [facility] [id number] 07/16/21 08:57 [facility] 06/25/21 07/09/21 07/16/21 08:51 09:08 08:54 Wound Center Nurse 1 #3 L Stump/Post op -Combined with other wound No No -Current Size (cm) - Length 0.4 0.4 0.2 -Current Size (cm) - Width 0.6 0.9 0.3 -Current Size (cm) - Depth 0.2 0.2 0.2 -Total Square Cm 0.24 0.36 0.06 -Date of Last Picture (Recall this 06/25/21 07/16/21 field) -Photo Taken Yes Yes -Epithelialization Small 1-33% Small 1-33% -Tunneling No No -Undermining/Tunneling No No -Circular Undermining No No -Exudate Amt Medium Small Medium -Exudate Type Serosanguineous Serosanguineous Serosanguineous -Wound Margin Distinct, Distinct, Distinct, Outline Outline Outline Attached Attached Attached -Granulation Amt Medium (34-66%) Small (1-33%) Small (1-33%) -Granulation Quality [place] -Slough/Fibrin Yes Yes -Necrosis Amt Medium (34-66%) None Present (0 Medium (34-66%) %) -Necrotic Tissue Type Adherent Slough Adherent Slough -Texture (Yudy-wound Skin Appearance) Assessed, Assessed, Assessed, Scarring Scarring Scarring -Moisture (Yudy-wound Skin Appearance) Assessed,Dry/ No Abnormality, Assessed Scaly Assessed -Color (Yudy-wound Skin Appearance) Assessed No Abnormality, Assessed Assessed -Temperature (Yudy-wound Skin No Abnormality No Abnormality No Abnormality Appearance) (Pt Warm) (Pt Warm) (Pt Warm) -Tenderness on Palpation (Yudy-wound No No Skin Appearance) -Ulcer Cleansing Rinsed/ Rinsed/ Rinsed/ Irrigated with Irrigated with Irrigated with Saline Saline Saline -Foul Odor after Cleansing No No No -Anesthetic Used 4% Lidocaine 5% Lidocaine 5% Lidocaine Solution Gel Gel WC - Nurse 2 - General Ulcer CM Notes Start: 06/25/21 08:51 Freq: Status: Active Protocol: Activity Type Activity Date Activity User E-Sign Co-Sign Detail Recorded Client Recorded Date Recorded By Document 06/25/21 09:19 [id number] 06/25/21 09:20 Document 07/09/21 09:23 [id number] 07/09/21 09:29 Document 07/16/21 09:20 [id number] 07/16/21 09:22 06/25/21 07/09/21 07/16/21 09:19 09:23 09:20 Wound Center Nurse 2 #3 L Stump/Post op -Time 09:19 09:20 -Correct Patient Yes Yes Yes -Correct Side, Site, Position Yes Yes Yes -Correct Procedure Yes Yes Yes -Procedure Performed Yes Yes Yes -Type of Procedure Debridement Debridement Debridement -Clinical Debridement Subcutaneous Subcutaneous Subcutaneous -Tissue Removed Subcutaneous Subcutaneous Subcutaneous -Post Debridement (cm) - Length 0.4 0.8 0.4 -Post Debridement (cm) - Width 1.0 0.6 0.6 -Post Debridement (cm) - Depth 0.1 0.1 0.1 -Total Square (Post) (cm) 0.40 0.48 0.24 -Area of Debridement (cm) - Length 0.4 0.8 0.4 -Area of Debridement (cm) - Width 1.0 0.6 0.6 -Total Square (Area) (cm) 0.40 0.48 0.24 -Tunneling No No No -Undermining/Tunneling No No No -Circular Undermining No No No -Wound/Ulcer Outcome Not Healed Not Healed Not Healed -Ulcer Cleansing Rinsed/ Rinsed/ Rinsed/ Irrigated with Irrigated with Irrigated with Saline Saline Saline -Foul Odor after Cleansing No No No -Bioengineered Tissue No No No -Bleeding Controlled with Pressure Pressure Pressure -Treatment Response Procedure Procedure Procedure Tolerated Well Tolerated Well Tolerated Well -Offloading No No No -Assistive Device(s) Wheelchair Wheelchair -Debridement - Subq, 1st 20sq cm Yes Yes Yes Pain Scale: 0-10 Numeric Is Patient Pain Free? Yes Yes Yes WC - Nurse 3 - General Ulcer D/C NN Start: 06/25/21 08:51 Freq: Status: Active Protocol: Activity Type Activity Date Activity User E-Sign Co-Sign Detail Recorded Client Recorded Date Recorded By Document 06/25/21 09:32 KR [id number] 06/25/21 09:33 KR Document 07/09/21 09:32 KR [id number] 07/09/21 09:32 KR Edit Result 07/09/21 09:32 KR (1) [id number] 07/09/21 09:33 KR Document 07/16/21 09:26 JF [id number] 07/16/21 09:27 JF (1) #3 L Stump/Post op - Primary Dressing Applied C Hydrogel ($) => C Hydrogel ($), => Mepilex Border - Mepilex Border => 3 06/25/21 07/09/21 07/16/21 09:32 09:32 09:26 Wound Care Nurse 3 #3 L Stump/Post op -Ulcer Cleansing Rinsed/ Rinsed/ Irrigated with Irrigated with Saline Saline -Foul Odor after Cleansing No -Primary Dressing Applied Aquacel AG 2x2, C Hydrogel ($), C Hydrogel ($) Mepilex Border Mepilex Border -Other Dressing A and D ointment to yudy-ulcer -Primary Dressing Covered/Secured with Dry Gauze, Dry Gauze, Secured with Secured with Tape Tape -Aquacel AG 2x2 1 -Mepilex Border 1 3 Pain Scale: 0-10 Numeric Is Patient Pain Free? Yes Yes Yes WC - Visit Discharge Discharge Condition Stable Stable Stable Ambulatory Status Wheelchair Wheelchair Wheelchair Transportation Private Auto Private Auto Private Auto Medication Reconcilliation completed & Yes provided to patient/care provider Clinical Summary of Care Provided Yes Assessment/Plan Assessment/Plan (1) Diabetes mellitus with ulcer of lower extremity: CODE(S): E11.622 - Type 2 diabetes mellitus with other skin ulcer; L97.909 - Non-pressure chronic ulcer of unspecified part of unspecified lower leg with unspecified severity (2) Pressure ulcer of BKA stump, stage 4: CODE(S): T87.89 - Other complications of amputation stump; L89.894 - Pressure ulcer of other site, stage 4 (3) Below-knee amputation of left lower extremity: CODE(S): S88.112A - Complete traumatic amputation at level between knee and ankle, left lower leg, initial encounter (4) Diabetes: CODE(S): E11.9 - Type 2 diabetes mellitus without complications (5) Smoker: CODE(S): F17.200 - Nicotine dependence, unspecified, uncomplicated PLAN: The patient completed 10 applications of TheraSkin. Wound care - He has had 10 applications of Theraskin. Wound care will now be Aquacel-Ag covered by gauze daily. AMIE wrap for compression. Wound culture from 07/09/21 positive for Staphylococcus aureus and Streptococcus agalactiae (B). He was started on Augmentin and a Probiotic. Encouraged high protein diet to help with wound healing and low carb diet to help keep better control of blood sugars. He has been in to see [employer] about being able to use his prosthesis. He states they think they can place something on his stump to prevent pressure on the area where the ulcer is so once he his healed he could start to wear his prosthesis again so he is no wheel chair bound. Encouraged patient to stop smoking as it may have deleterious effects on wound healing. Follow up 1 week. Follow-up sooner or report to the emergency department should new or concerning symptoms arise.
== END 2021-07-21 23:59 | disposition home or self-care (01) ==
LOC: WC 09:00
PROVIDERS: PCP Family Medicine; Visit Provider Nurse Practitioner Family
DX: E11.622 Type 2 diabetes mellitus with other skin ulcer (principal); T87.89 Other complications of amputation stump; L97.822 Non-pressure chronic ulcer of other part of left lower leg with fat layer exposed; F17.200 Nicotine dependence, unspecified, uncomplicated; Y83.5 Amputation of limb(s) as the cause of abnormal reaction of the patient, or of later complication, without mention of misadventure at the time of the procedure
CPT/HCPCS: 11042; 87070; 87075; 87077; 87186; 87205

== ENCOUNTER 2021-08-13 09:00 | Outpatient (RCR) | payer MEDICARE, MEDICAID, SELFPAY ==
[2021-07-22 00:30] VITALS: BP 138/87; PULSE 82; RESP 18; TEMP 36.2
[2021-07-23 09:07] VITALS: BP 140/80; PULSE 63; TEMP 35.8
--- NOTE | 2021-07-23 12:11 | PCM.WC.PN ---
History of Present Illness Date of Service: 07/23/21 Chief Complaint: Ulcer on left BKA after I&D of a diabetic abscess/hematoma on 11/06/20 History of Wound: Surgery on 11/06/20 - Surgical preparation left below knee amputation stump with incision and drainage and excisional debridement with partial ostectomy tibia for osteomyelitis and evacuation hematoma for draining diabetic ulcer abscess. (He had his Left BKA on 04/17/20). Operative tissue and bone cultures were negative. Wound cultures from 11/02/20 positive for MSSA, Enterobacter cloacae complex, and Corynebacterium amycolatum. Prealbumin 9.9 on 11/07/20. He was at [facility], Zosyn IV and Doxycycline po which are now completed. He is now living in an apartment. He has has completed ten applications of Theraskin which did help decrease his ulcer size. Wound care - He has had 10 applications of Theraskin. Wound care is collagen hydrogel covered with adaptic and topped with gauze daily. 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 Wound culture from 07/09/21 positive for Staphylococcus aureus and Streptococcus agalactiae (B). He was started on Augmentin and a Probiotic. Today he denies any fever. He states his appetite is good. Progress of Wound: Left BKA stump ulcer is smaller in size. The yudy wound is excoriated. Objective Data Objective Data Vital Signs: Vital Signs Temp Pulse Resp BP 96.4 F L 63 18 140/80 H 07/23/21 09:07 07/23/21 09:07 07/22/21 00:30 07/23/21 09:07 Charges/Coding Procedures Integumentary 111xxx-113xx: [id number] Ria subq tissue 20 sq cm/< Physical Exam Const alert and oriented x3 General Appearance: cooperative HEENT normocephalic Resp normal respiratory effort Cardio regular rate Extremity normal capillary refill Skin Wound Narrative: Left BKA stump ulcer is smaller in size. No bone exposure. Yudy wound is excoriated. Neuro CN's II-XII intact bilaterally Psych Appearance: well kempt Debridement Note Debridement Note Wound debrided: BKA stump ulcer Laterality: Left Type of Debridement: Excisional debridement Anesthesia Used: 5% Lidocaine Gel Depth: Down to and including healthy tissue and in the subcutaneous layer Percentage of wound debrided: 100 Instrument Used: 3mm curette Tissue Removed: Non viable tissue and slough Severity: Fat Layer Exposed Amount of bleeding with debridement: Mild Bleeding Controlled with: Pressure Patient tolerated procedure: Patient tolerated procedure well Post-Debridement Measurements and Additional Note: Post-Debridement Measurements/Treatment - Nurse 1 - General Ulcer Assessment Start: 07/23/21 09:07 Freq: Status: Active Protocol: ARLETH Activity Type Activity Date Activity User E-Sign Co-Sign Detail Recorded Client Recorded Date Recorded By Document 07/23/21 09:07 NGUYỄN [id number] 07/23/21 09:08 NGUYỄN 07/23/21 09:07 - Today's Visit Information Type of service Follow-up Visit (Physician/MATERIAL SCHEDULER ) Arrival Mode Wheelchair Patient Identification Verified (Name & Yes ) Vital Signs Temperature (97.8 F-99.1 F) 96.4 F L Temperature Source Temporal Pulse Rate (60-100) 63 Pulse Location Monitor Blood Pressure (90/60-120/80) 140/80 H Blood Pressure Mean (mm Hg) 100 Source Monitor Position Sitting Blood Pressure Location Left Arm History Since Last Visit- (Skip if this is Patient's initial visit) Have you changed medications since your No last visit? Any new allergies or adverse reactions No Had a fall/change in ADL's that may No increase risk of falls Signs or symptoms of abuse and/or No neglect since last visit Have you been in the hospital since your No last visit? Has dressing in place as prescribed Yes Has compression in place as prescribed Yes Has offloadiing in place as prescribed N/A Experienced any changes in pain level or No management Pain Scale: 0-10 Numeric Is Patient Pain Free? Yes [facility] Nurse 1 - General Ulcer Measurement Start: 07/23/21 09:07 Freq: Status: Active Protocol: Activity Type Activity Date Activity User E-Sign Co-Sign Detail Recorded Client Recorded Date Recorded By Document 07/23/21 09:07 NGUYỄN [id number] 07/23/21 09:08 NGUYỄN 07/23/21 09:07 Wound Center Nurse 1 #3 L Stump/Post op -Current Size (cm) - Length 0.3 -Current Size (cm) - Width 0.5 -Current Size (cm) - Depth 0.1 -Total Square Cm 0.15 -Exudate Amt Small -Exudate Type Serosanguineous -Wound Margin Distinct, Outline Attached -Granulation Amt Small (1-33%) -Granulation Quality [place] -Necrosis Amt None Present (0 %) -Texture (Yudy-wound Skin Appearance) Assessed, Scarring -Moisture (Yudy-wound Skin Appearance) No Abnormality, Assessed -Color (Yudy-wound Skin Appearance) No Abnormality, Assessed -Temperature (Yudy-wound Skin No Abnormality Appearance) (Pt Warm) -Tenderness on Palpation (Yudy-wound No Skin Appearance) -Ulcer Cleansing Rinsed/ Irrigated with Saline -Foul Odor after Cleansing No -Anesthetic Used 5% Lidocaine Gel WC - Nurse 2 - General Ulcer CM Notes Start: 07/23/21 09:07 Freq: Status: Active Protocol: Activity Type Activity Date Activity User E-Sign Co-Sign Detail Recorded Client Recorded Date Recorded By Document 07/23/21 09:13 MARSHALL [id number] 07/23/21 09:15 MARSHALL 07/23/21 09:13 Wound Center Nurse 2 -Time 09:13 -Correct Patient Yes -Correct Side, Site, Position Yes -Correct Procedure Yes -Procedure Performed Yes -Type of Procedure Debridement -Clinical Debridement Subcutaneous -Tissue Removed Subcutaneous -Post Debridement (cm) - Length 0.3 -Post Debridement (cm) - Width 0.6 -Post Debridement (cm) - Depth 0.2 -Total Square (Post) (cm) 0.18 -Area of Debridement (cm) - Length 0.3 -Area of Debridement (cm) - Width 0.6 -Total Square (Area) (cm) 0.18 -Tunneling No -Undermining/Tunneling No -Circular Undermining No -Wound/Ulcer Outcome Not Healed -Ulcer Cleansing Rinsed/ Irrigated with Saline -Foul Odor after Cleansing No -Bioengineered Tissue No -Bleeding Controlled with Pressure -Treatment Response Procedure Tolerated Well -Offloading No -Assistive Device(s) Wheelchair -Debridement - Subq, 1st 20sq cm Yes Pain Scale: 0-10 Numeric Is Patient Pain Free? Yes Assessment/Plan Assessment/Plan (1) Pressure ulcer of BKA stump, stage 4: CODE(S): T87.89 - Other complications of amputation stump; L89.894 - Pressure ulcer of other site, stage 4 (2) Below-knee amputation of left lower extremity: CODE(S): S88.112A - Complete traumatic amputation at level between knee and ankle, left lower leg, initial encounter (3) Diabetes: CODE(S): E11.9 - Type 2 diabetes mellitus without complications (4) Smoker: CODE(S): F17.200 - Nicotine dependence, unspecified, uncomplicated (5) Diabetes mellitus with ulcer of lower extremity: CODE(S): E11.622 - Type 2 diabetes mellitus with other skin ulcer; L97.909 - Non-pressure chronic ulcer of unspecified part of unspecified lower leg with unspecified severity PLAN: The patient completed 10 applications of TheraSkin. Wound care - He has had 10 applications of Theraskin. Wound care is collagen hydrogel topped with adaptic, covered by gauze daily. Stump academic affairs vice president for compression. Stop the A&D ointment and wash the ulcer and yudy wound daily with the dressing change to see if this helps with yudy wound excoriation. Wound culture from 07/09/21 positive for Staphylococcus aureus and Streptococcus agalactiae (B). He continues to take his Augmentin and Probiotic. Encouraged high protein diet to help with wound healing and low carb diet to help keep better control of blood sugars. He has been in to see [employer] about being able to use his prosthesis. He states they think they can place something on his stump to prevent pressure on the area where the ulcer is so once he his healed he could start to wear his prosthesis again so he is not wheel chair bound. Encouraged patient to stop smoking as it may have deleterious effects on wound healing. Follow up 1 week. Follow-up sooner or report to the emergency department should new or concerning symptoms arise.
[2021-07-30 08:49] VITALS: BP 141/84; PULSE 58; TEMP 36.4
--- NOTE | 2021-07-30 09:24 | PCM.WC.PN ---
History of Present Illness Date of Service: 07/30/21 Chief Complaint: Ulcer on left BKA after I&D of a diabetic abscess/hematoma on 11/06/20 History of Wound: Surgery on 11/06/20 - Surgical preparation left below knee amputation stump with incision and drainage and excisional debridement with partial ostectomy tibia for osteomyelitis and evacuation hematoma for draining diabetic ulcer abscess. (He had his Left BKA on 04/17/20). Operative tissue and bone cultures were negative. Wound cultures from 11/02/20 positive for MSSA, Enterobacter cloacae complex, and Corynebacterium amycolatum. Prealbumin 9.9 on 11/07/20. He was at [facility], Zosyn IV and Doxycycline po which are now completed. He is now living in an apartment. He has has completed ten applications of Theraskin which did help decrease his ulcer size. Wound care - He has had 10 applications of Theraskin. Wound care is collagen hydrogel covered with adaptic and topped with gauze daily. He is wearing a stump real estate office supervisor. Wound culture from 07/09/21 positive for Staphylococcus aureus and Streptococcus agalactiae (B). He was started on Augmentin and a Probiotic. Today he denies any fever. He states his appetite is good. Progress of Wound: Left BKA stump ulcer is smaller in size. The excoriated daya wound is improving. He states he is starting to wear his leg for 45 minutes a day and has no problems with that. Objective Data Objective Data Vital Signs: Vital Signs Temp Pulse Resp BP 97.6 F L 58 L 18 141/84 H 07/30/21 08:49 07/30/21 08:49 07/22/21 00:30 07/30/21 08:49 Charges/Coding Procedures Integumentary 111xxx-113xx: [id number] Ria subq tissue 20 sq cm/< Physical Exam Const alert and oriented x3 General Appearance: cooperative HEENT normocephalic Resp normal respiratory effort Cardio regular rate Extremity normal capillary refill Skin Wound Narrative: Left BKA stump ulcer is smaller in size. The excoriated daya wound is improving. Neuro Sensorium / Orientation: awake, alert, oriented to person, oriented to place and oriented to time Psych Appearance: grossly normal Debridement Note Debridement Note Wound debrided: BKA stump ulcer Laterality: Left Type of Debridement: Excisional debridement Anesthesia Used: 5% Lidocaine Gel Depth: Down to and including healthy tissue and in the subcutaneous layer Percentage of wound debrided: 100 Instrument Used: - (1 mm curette) Tissue Removed: Non viable tissue and slough Severity: Fat Layer Exposed Amount of bleeding with debridement: Mild Bleeding Controlled with: Pressure Patient tolerated procedure: Patient tolerated procedure well Post-Debridement Measurements and Additional Note: Post-Debridement Measurements/Treatment WC - Nurse 1 - General Ulcer Assessment Start: 07/23/21 09:07 Freq: Status: Active Protocol: ARLETH Activity Type Activity Date Activity User E-Sign Co-Sign Detail Recorded Client Recorded Date Recorded By Document 07/23/21 09:07 KR [id number] 07/23/21 09:08 KR Document 07/30/21 08:49 DL [id number] 07/30/21 08:56 DL 07/23/21 07/30/21 09:07 08:49 - Today's Visit Information Type of service Follow-up Visit Follow-up Visit (Physician/TRANSFORMER COIL WINDER (Physician/TRANSFORMER COIL WINDER ) ) Arrival Mode Wheelchair Wheelchair Transfer Assistance None Patient Identification Verified (Name & Yes Yes ) Patient Requires Transmission-Based No Precautions Finger Stick Blood Sugar(mg/dl) (if doesnt check indicated): Blood Sugar Stated by Patient Vital Signs Temperature (97.8 F-99.1 F) 96.4 F L 97.6 F L Temperature Source Temporal Temporal Pulse Rate (60-100) 63 58 L Pulse Location Monitor Monitor Blood Pressure (90/60-120/80) 140/80 H 141/84 H Blood Pressure Mean (mm Hg) 100 103 Source Monitor Monitor Position Sitting Blood Pressure Location Left Arm History Since Last Visit- (Skip if this is Patient's initial visit) Have you changed medications since your No No last visit? Any new allergies or adverse reactions No No Had a fall/change in ADL's that may No No increase risk of falls Signs or symptoms of abuse and/or No No neglect since last visit Have you been in the hospital since your No No last visit? Has dressing in place as prescribed Yes Yes Has compression in place as prescribed Yes Yes Has offloadiing in place as prescribed N/A Yes Experienced any changes in pain level or No No management Left Footwear No Footwear Pain Scale: 0-10 Numeric Is Patient Pain Free? Yes Yes WC - Nurse 1 - General Ulcer Measurement Start: 07/23/21 09:07 Freq: Status: Active Protocol: Activity Type Activity Date Activity User E-Sign Co-Sign Detail Recorded Client Recorded Date Recorded By Document 07/23/21 09:07 KR [id number] 07/23/21 09:08 KR Document 07/30/21 08:49 DL [id number] 07/30/21 08:56 DL 07/23/21 07/30/21 09:07 08:49 Wound Center Nurse 1 #3 L Stump/Post op -Current Size (cm) - Length 0.3 0.2 -Current Size (cm) - Width 0.5 0.4 -Current Size (cm) - Depth 0.1 0.1 -Total Square Cm 0.15 0.08 -Photo Taken No -Exudate Amt Small None Present -Exudate Type Serosanguineous -Wound Margin Distinct, Flat & Intact Outline Attached -Granulation Amt Small (1-33%) Large (67-100%) -Granulation Quality [place] Pale,[place] -Necrosis Amt None Present (0 None Present (0 %) %) -Structure Exposed N/A -Texture (Daya-wound Skin Appearance) Assessed, Scarring Scarring -Moisture (Daya-wound Skin Appearance) No Abnormality, No Abnormality Assessed -Color (Daya-wound Skin Appearance) No Abnormality, No Abnormality Assessed -Temperature (Daya-wound Skin No Abnormality No Abnormality Appearance) (Pt Warm) (Pt Warm) -Tenderness on Palpation (Daya-wound No No Skin Appearance) -Ulcer Cleansing Rinsed/ Rinsed/ Irrigated with Irrigated with Saline Saline -Foul Odor after Cleansing No Yes, Due to Product Use -Anesthetic Used 5% Lidocaine 4% Lidocaine Gel Solution WC - Nurse 2 - General Ulcer CM Notes Start: 07/23/21 09:07 Freq: Status: Active Protocol: Activity Type Activity Date Activity User E-Sign Co-Sign Detail Recorded Client Recorded Date Recorded By Document 07/23/21 09:13 JF [id number] 07/23/21 09:15 JF Document 07/30/21 09:15 PL [id number] 07/30/21 09:17 PL 07/23/21 07/30/21 09:13 09:15 Wound Center Nurse 2 #3 L Stump/Post op -Time 09:13 09:11 -Correct Patient Yes Yes -Correct Side, Site, Position Yes Yes -Correct Procedure Yes Yes -Procedure Performed Yes Yes -Type of Procedure Debridement Debridement -Clinical Debridement Subcutaneous Subcutaneous -Tissue Removed Subcutaneous Subcutaneous -Post Debridement (cm) - Length 0.3 0.2 -Post Debridement (cm) - Width 0.6 0.7 -Post Debridement (cm) - Depth 0.2 0.2 -Total Square (Post) (cm) 0.18 0.14 -Area of Debridement (cm) - Length 0.3 0.2 -Area of Debridement (cm) - Width 0.6 0.7 -Total Square (Area) (cm) 0.18 0.14 -Tunneling No No -Undermining/Tunneling No No -Circular Undermining No No -Wound/Ulcer Outcome Not Healed Not Healed -Ulcer Cleansing Rinsed/ Rinsed/ Irrigated with Irrigated with Saline Saline -Foul Odor after Cleansing No No -Bioengineered Tissue No No -Bleeding Controlled with Pressure Pressure -Treatment Response Procedure Procedure Not Tolerated Well Tolerated Well -Offloading No -Assistive Device(s) Wheelchair -Debridement - Subq, 1st 20sq cm Yes Yes Pain Scale: 0-10 Numeric Is Patient Pain Free? Yes Yes - Nurse 3 - General Ulcer D/C NN Start: 07/23/21 09:07 Freq: Status: Active Protocol: Activity Type Activity Date Activity User E-Sign Co-Sign Detail Recorded Client Recorded Date Recorded By Document 07/30/21 09:20 [facility] [id number] 07/30/21 09:21 [facility] 07/30/21 09:20 Wound Care Nurse 3 #3 L Stump/Post op -Ulcer Cleansing Rinsed/ Irrigated with Saline -Foul Odor after Cleansing No -Primary Dressing Applied NonAdherent Contact Layer, Other -Other Dressing hydrogel -Primary Dressing Covered/Secured with Dry Gauze, Secured with Tape L STUMP -Other PT APPLIED OWN STUMP SENIOR QUALITY CONTROL TECHNICIAN Treatment Response Procedure Tolerated Well Pain Scale: 0-10 Numeric Is Patient Pain Free? Yes - Visit Discharge Discharge Condition Stable Ambulatory Status Wheelchair Transportation Private Auto Assessment/Plan Assessment/Plan (1) Pressure ulcer of BKA stump, stage 4: CODE(S): T87.89 - Other complications of amputation stump; L89.894 - Pressure ulcer of other site, stage 4 (2) Diabetes mellitus with ulcer of lower extremity: CODE(S): E11.622 - Type 2 diabetes mellitus with other skin ulcer; L97.909 - Non-pressure chronic ulcer of unspecified part of unspecified lower leg with unspecified severity (3) Below-knee amputation of left lower extremity: CODE(S): S88.112A - Complete traumatic amputation at level between knee and ankle, left lower leg, initial encounter (4) Diabetes: CODE(S): E11.9 - Type 2 diabetes mellitus without complications (5) Smoker: CODE(S): F17.200 - Nicotine dependence, unspecified, uncomplicated PLAN: The patient completed 10 applications of TheraSkin. Wound care - He has had 10 applications of Theraskin. Wound care is collagen hydrogel topped with adaptic, covered by gauze daily. Stump real estate office supervisor for compression. Wash the ulcer and daya wound daily with the dressing change because this is helping with daya wound excoriation. Wound culture from 07/09/21 positive for Staphylococcus aureus and Streptococcus agalactiae (B). He continues to take his Augmentin and Probiotic. Encouraged high protein diet to help with wound healing and low carb diet to help keep better control of blood sugars. He has been in to see [facility] about being able to use his prosthesis. He states they think they can place something on his stump to prevent pressure on the area where the ulcer is so once he his healed he could start to wear his prosthesis again so he is not wheel chair bound. He is wearing his leg for 45 minutes at a time. Encouraged patient to stop smoking as it may have deleterious effects on wound healing. Follow up 2 weeks. Follow-up sooner or report to the emergency department should new or concerning symptoms arise.
[2021-08-13 08:33] VITALS: BP 157/81; PULSE 58; TEMP 36.4
--- NOTE | 2021-08-13 09:26 | PCM.WC.PN ---
History of Present Illness Date of Service: 08/13/21 Chief Complaint: Ulcer on left BKA after I&D of a diabetic abscess/hematoma on 11/06/20 History of Wound: Surgery on 11/06/20 - Surgical preparation left below knee amputation stump with incision and drainage and excisional debridement with partial ostectomy tibia for osteomyelitis and evacuation hematoma for draining diabetic ulcer abscess. (He had his Left BKA on 04/17/20). Operative tissue and bone cultures were negative. Wound cultures from 11/02/20 positive for MSSA, Enterobacter cloacae complex, and Corynebacterium amycolatum. Prealbumin 9.9 on 11/07/20. He was at [facility], Zosyn IV and Doxycycline po which are now completed. He is now living in an apartment. He has has completed ten applications of Theraskin which did help decrease his ulcer size. Wound care - He has had 10 applications of Theraskin. Wound care is collagen hydrogel covered with adaptic and topped with gauze daily. He is wearing a stump lead instructor/flight attendant. Wound culture from 07/09/21 positive for Staphylococcus aureus and Streptococcus agalactiae (B). He was started on Augmentin and a Probiotic. Today he denies any fever. He states his appetite is good. Progress of Wound: Left BKA stump ulcer is stable, he has a yellow callous area on the medial aspect of the ulcer. Unsure if this is from him wearing his prosthesis more. He states he is wearing his leg for 1.3-2 hours a day and is experiencing no problems with that. Objective Data Objective Data Vital Signs: Vital Signs Temp Pulse Resp BP 97.6 F L 58 L 18 157/81 H 08/13/21 08:33 08/13/21 08:33 07/22/21 00:30 08/13/21 08:33 Charges/Coding Procedures Integumentary 111xxx-113xx: [id number] Ria subq tissue 20 sq cm/< Physical Exam Const alert and oriented x3 General Appearance: cooperative HEENT normocephalic Resp normal respiratory effort Cardio regular rate Extremity normal capillary refill Skin Wound Narrative: Stump ulcer is stable, he has a yellow callous area on the medial aspect of the ulcer. Unsure if this is from him wearing his prosthesis more or if he is getting increased drainage from his ulcer. Neuro Sensorium / Orientation: awake, alert, oriented to person, oriented to place and oriented to time Psych Appearance: grossly normal Debridement Note Debridement Note Wound debrided: BKA stump ulcer Laterality: Left Type of Debridement: Excisional debridement Anesthesia Used: 5% Lidocaine Gel Depth: Down to and including healthy tissue and in the subcutaneous layer Percentage of wound debrided: 100 Instrument Used: 3mm curette Tissue Removed: Non viable tissue and slough Severity: Fat Layer Exposed Amount of bleeding with debridement: Mild Bleeding Controlled with: Pressure Patient tolerated procedure: Patient tolerated procedure well Post-Debridement Measurements and Additional Note: Post-Debridement Measurements/Treatment - Nurse 1 - General Ulcer Assessment Start: 07/23/21 09:07 Freq: Status: Active Protocol: ARLETH Activity Type Activity Date Activity User E-Sign Co-Sign Detail Recorded Client Recorded Date Recorded By Document 07/23/21 09:07 [id number] 07/23/21 09:08 KR Document 07/30/21 08:49 DL [id number] 07/30/21 08:56 DL Document 08/13/21 08:33 KR [id number] 08/13/21 08:35 KR 07/23/21 07/30/21 08/13/21 09:07 08:49 08:33 - Today's Visit Information Type of service Follow-up Visit Follow-up Visit Follow-up Visit (Physician/VICE PRESIDENT & GENERAL MANAGER [employer] [place] (Physician/VICE PRESIDENT & GENERAL MANAGER [employer] [place] (Physician/VICE PRESIDENT & GENERAL MANAGER [employer] [place] ) ) ) Arrival Mode Wheelchair Wheelchair Ambulatory Transfer Assistance None Patient Identification Verified (Name & Yes Yes Yes ) Patient Requires Transmission-Based No Precautions Finger Stick Blood Sugar(mg/dl) (if doesnt check indicated): Blood Sugar Stated by Patient Vital Signs Temperature (97.8 F-99.1 F) 96.4 F L 97.6 F L 97.6 F L Temperature Source Temporal Temporal Temporal Pulse Rate (60-100) 63 58 L 58 L Pulse Location Monitor Monitor Monitor Blood Pressure (90/60-120/80) 140/80 H 141/84 H 157/81 H Blood Pressure Mean (mm Hg) 100 103 106 Source Monitor Monitor Monitor Position Sitting Sitting Blood Pressure Location Left Arm Right Arm History Since Last Visit- (Skip if this is Patient's initial visit) Have you changed medications since your No No No last visit? Any new allergies or adverse reactions No No No Had a fall/change in ADL's that may No No No increase risk of falls Signs or symptoms of abuse and/or No No No neglect since last visit Have you been in the hospital since your No No No last visit? Has dressing in place as prescribed Yes Yes Yes Has compression in place as prescribed Yes Yes N/A Has offloadiing in place as prescribed N/A Yes N/A Experienced any changes in pain level or No No No management Left Footwear No Footwear Regular Shoe Right Footwear Regular Shoe Pain Scale: 0-10 Numeric Is Patient Pain Free? Yes Yes Yes WC - Nurse 1 - General Ulcer Measurement Start: 07/23/21 09:07 Freq: Status: Active Protocol: Activity Type Activity Date Activity User E-Sign Co-Sign Detail Recorded Client Recorded Date Recorded By Document 07/23/21 09:07 KR [id number] 07/23/21 09:08 KR Document 07/30/21 08:49 DL [id number] 07/30/21 08:56 DL Document 08/13/21 08:33 KR [id number] 08/13/21 08:35 KR 07/23/21 07/30/21 08/13/21 09:07 08:49 08:33 Wound Center Nurse 1 #3 L Stump/Post op -Current Size (cm) - Length 0.3 0.2 0.1 -Current Size (cm) - Width 0.5 0.4 1 -Current Size (cm) - Depth 0.1 0.1 0.1 -Total Square Cm 0.15 0.08 0.1 -Photo Taken No -Exudate Amt Small None Present Small -Exudate Type Serosanguineous Serosanguineous -Wound Margin Distinct, Flat & Intact Distinct, Outline Outline Attached Attached -Granulation Amt Small (1-33%) Large (67-100%) Small (1-33%) -Granulation Quality [place] Pale,[place] -Necrosis Amt None Present (0 None Present (0 None Present (0 %) %) %) -Structure Exposed N/A -Texture (Yudy-wound Skin Appearance) Assessed, Scarring No Abnormality, Scarring Scarring -Moisture (Yudy-wound Skin Appearance) No Abnormality, No Abnormality No Abnormality, Assessed Assessed -Color (Yudy-wound Skin Appearance) No Abnormality, No Abnormality No Abnormality, Assessed Assessed -Temperature (Yudy-wound Skin No Abnormality No Abnormality No Abnormality Appearance) (Pt Warm) (Pt Warm) (Pt Warm) -Tenderness on Palpation (Yudy-wound No No No Skin Appearance) -Ulcer Cleansing Rinsed/ Rinsed/ Rinsed/ Irrigated with Irrigated with Irrigated with Saline Saline Saline -Foul Odor after Cleansing No Yes, Due to No Product Use -Anesthetic Used 5% Lidocaine 4% Lidocaine 5% Lidocaine Gel Solution Gel WC - Nurse 2 - General Ulcer CM Notes Start: 07/23/21 09:07 Freq: Status: Active Protocol: Activity Type Activity Date Activity User E-Sign Co-Sign Detail Recorded Client Recorded Date Recorded By Document 07/23/21 09:13 [id number] 07/23/21 09:15 JF Document 07/30/21 09:15 PL [id number] 07/30/21 09:17 PL Document 08/13/21 08:49 [id number] 08/13/21 08:51 JF 07/23/21 07/30/21 08/13/21 09:13 09:15 08:49 Wound Center Nurse 2 #3 L Stump/Post op -Time 09:13 09:11 08:49 -Correct Patient Yes Yes Yes -Correct Side, Site, Position Yes Yes Yes -Correct Procedure Yes Yes Yes -Procedure Performed Yes Yes Yes -Type of Procedure Debridement Debridement Debridement -Clinical Debridement Subcutaneous Subcutaneous Subcutaneous -Tissue Removed Subcutaneous Subcutaneous Subcutaneous -Post Debridement (cm) - Length 0.3 0.2 0.2 -Post Debridement (cm) - Width 0.6 0.7 1.0 -Post Debridement (cm) - Depth 0.2 0.2 0.2 -Total Square (Post) (cm) 0.18 0.14 0.20 -Area of Debridement (cm) - Length 0.3 0.2 0.2 -Area of Debridement (cm) - Width 0.6 0.7 1.0 -Total Square (Area) (cm) 0.18 0.14 0.20 -Tunneling No No No -Undermining/Tunneling No No No -Circular Undermining No No No -Wound/Ulcer Outcome Not Healed Not Healed Not Healed -Ulcer Cleansing Rinsed/ Rinsed/ Rinsed/ Irrigated with Irrigated with Irrigated with Saline Saline Saline -Foul Odor after Cleansing No No No -Bioengineered Tissue No No No -Bleeding Controlled with Pressure Pressure Pressure -Treatment Response Procedure Procedure Not Procedure Tolerated Well Tolerated Well Tolerated Well -Offloading No No -Assistive Device(s) Wheelchair -Debridement - Subq, 1st 20sq cm Yes Yes Yes Pain Scale: 0-10 Numeric Is Patient Pain Free? Yes Yes Yes - Nurse 3 - General Ulcer D/C NN Start: 07/23/21 09:07 Freq: Status: Active Protocol: Activity Type Activity Date Activity User E-Sign Co-Sign Detail Recorded Client Recorded Date Recorded By Document 07/30/21 09:20 [facility] [id number] 07/30/21 09:21 [facility] Document 08/13/21 08:54 [facility] [id number] 08/13/21 08:54 [facility] 07/30/21 08/13/21 09:20 08:54 Wound Care Nurse 3 #3 L Stump/Post op -Ulcer Cleansing Rinsed/ Rinsed/ Irrigated with Irrigated with Saline Saline -Foul Odor after Cleansing No No -Primary Dressing Applied NonAdherent C Hydrogel ($), Contact Layer, NonAdherent Other Contact Layer -Other Dressing hydrogel -Primary Dressing Covered/Secured with Dry Gauze, Dry Gauze, Secured with Secured with Tape Tape -Other Covering drsg per ak sales support associate L STUMP -Other PT APPLIED OWN stump lead instructor/flight attendant STUMP HEMATOLOGY NURSE EDUCATOR Treatment Response Procedure Procedure Tolerated Well Tolerated Well Pain Scale: 0-10 Numeric Is Patient Pain Free? Yes Yes - Visit Discharge Discharge Condition Stable Stable Ambulatory Status Wheelchair Ambulatory Transportation Private Auto Assessment/Plan Assessment/Plan (1) Pressure ulcer of BKA stump, stage 4: CODE(S): T87.89 - Other complications of amputation stump; L89.894 - Pressure ulcer of other site, stage 4 (2) Diabetes mellitus with ulcer of lower extremity: CODE(S): E11.622 - Type 2 diabetes mellitus with other skin ulcer; L97.909 - Non-pressure chronic ulcer of unspecified part of unspecified lower leg with unspecified severity (3) Below-knee amputation of left lower extremity: CODE(S): S88.112A - Complete traumatic amputation at level between knee and ankle, left lower leg, initial encounter (4) Diabetes: CODE(S): E11.9 - Type 2 diabetes mellitus without complications (5) Smoker: CODE(S): F17.200 - Nicotine dependence, unspecified, uncomplicated PLAN: The patient completed 10 applications of TheraSkin. Wound care - He has had 10 applications of Theraskin. Wound care is collagen hydrogel topped with adaptic, covered by gauze daily. Stump lead instructor/flight attendant for compression. Wash the ulcer and yudy wound daily with the dressing change because this is helping with yudy wound excoriation. Wound culture from 07/09/21 positive for Staphylococcus aureus and Streptococcus agalactiae (B). He continues to take his Augmentin and Probiotic. Encouraged high protein diet to help with wound healing and low carb diet to help keep better control of blood sugars. He has been in to see [facility] about being able to use his prosthesis. He states they think they can place something on his stump to prevent pressure on the area where the ulcer is so once he his healed he could start to wear his prosthesis again so he is not wheel chair bound. He is wearing his leg for 1.5-2 hours a day. Encouraged patient to stop smoking as it may have deleterious effects on wound healing. Follow up 2 weeks. Follow-up sooner or report to the emergency department should new or concerning symptoms arise.
== END 2021-08-21 23:59 | disposition home or self-care (01) ==
LOC: WC 09:00
PROVIDERS: PCP Family Medicine; Visit Provider Nurse Practitioner Family
DX: E11.622 Type 2 diabetes mellitus with other skin ulcer (principal); T87.89 Other complications of amputation stump; L97.822 Non-pressure chronic ulcer of other part of left lower leg with fat layer exposed; F17.200 Nicotine dependence, unspecified, uncomplicated; Y83.5 Amputation of limb(s) as the cause of abnormal reaction of the patient, or of later complication, without mention of misadventure at the time of the procedure
CPT/HCPCS: 11042

== ENCOUNTER 2021-09-17 09:00 | Outpatient (RCR) | payer MEDICARE, MEDICAID, SELFPAY ==
[2021-08-22 00:47] VITALS: BP 157/81; PULSE 58; RESP 18; TEMP 36.4
[2021-09-03 08:14] VITALS: BP 151/84; PULSE 62; TEMP 36
--- NOTE | 2021-09-03 12:12 | PN.PCM_ITS ---
History of Present Illness Date of Service: 09/03/21 Chief Complaint: Ulcer on left BKA after I&D of a diabetic abscess/hematoma on 11/06/20 History of Wound: Surgery on 11/06/20 - Surgical preparation left below knee amputation stump with incision and drainage and excisional debridement with partial ostectomy tibia for osteomyelitis and evacuation hematoma for draining diabetic ulcer abscess. (He had his Left BKA on 04/17/20). Operative tissue and bone cultures were negative. Wound cultures from 11/02/20 positive for MSSA, Enterobacter cloacae complex, and Corynebacterium amycolatum. Prealbumin 9.9 on 11/07/20. He was at [facility], Zosyn IV and Doxycycline po which are now completed. He is now living in an apartment. He has has completed ten applications of Theraskin which did help decrease his ulcer size. Wound care - He has had 10 applications of Theraskin. Wound care is collagen hydrogel covered with adaptic and topped with gauze daily. He is wearing a stump computer tape librarian. Wound culture from 07/09/21 positive for Staphylococcus aureus and Streptococcus agalactiae (B). He was started on Augmentin and a Probiotic. Today he denies any fever. He states his appetite is good. Progress of Wound: Left BKA stump ulcer is stable. He has been wearing his stump computer tape librarian and wearing his prosthesis about 2-3 hours per day. He states that he does feel pressure on his ulcer when he is wearing his leg prosthesis. Objective Data Objective Data Vital Signs: Vital Signs Temp Pulse Resp BP 96.8 F L 62 18 151/84 H 09/03/21 08:14 09/03/21 08:14 08/22/21 00:47 09/03/21 08:14 Charges/Coding Procedures Integumentary 111xxx-113xx: [id number] Ria subq tissue 20 sq cm/< Physical Exam Const alert and oriented x3 General Appearance: cooperative HEENT normocephalic Resp normal respiratory effort Cardio regular rate Extremity normal capillary refill Skin Wound Narrative: Left BKA stump ulcer is pink and stable in size. Psych Appearance: grossly normal Debridement Note Debridement Note Wound debrided: BKA stump ulcer Laterality: Left Type of Debridement: Excisional debridement Anesthesia Used: 5% Lidocaine Gel Depth: Down to and including healthy tissue and in the subcutaneous layer Percentage of wound debrided: 100 Instrument Used: 3mm curette Tissue Removed: Non viable tissue and slough Severity: Fat Layer Exposed Amount of bleeding with debridement: Mild Bleeding Controlled with: Compression and gauze Patient tolerated procedure: Patient tolerated procedure well Post-Debridement Measurements and Additional Note: Post-Debridement Measureme nts/Treatment FREDI - Nurse 1 - General Ulcer Assessment Start: 09/03/21 08:14 Freq: Status: Active Protocol: ARLETH Activity Type Activity Date Activity User E-Sign Co-Sign Detail Recorded Client Recorded Date Recorded By Document 09/03/21 08:14 NGUYỄN [id number] 09/03/21 08:15 NGUYỄN 09/03/21 08:14 FREDI - Today's Visit Information Type of service Follow-up Visit (Physician/CELL STRIPPER FINAL ) Arrival Mode Ambulatory Patient Identification Verified (Name & Yes ) Vital Signs Temperature (97.8 F-99.1 F) 96.8 F L Temperature Source Temporal Pulse Rate (60-100) 62 Pulse Location Monitor Blood Pressure (90/60-120/80) 151/84 H Blood Pressure Mean (mm Hg) 106 Source Monitor Position Sitting Blood Pressure Location Left Arm History Since Last Visit- (Skip if this is Patient's initial visit) Have you changed medications since your No last visit? Any new allergies or adverse reactions No Had a fall/change in ADL's that may No increase risk of falls Signs or symptoms of abuse and/or No neglect since last visit Have you been in the hospital since your No last visit? Has dressing in place as prescribed Yes Has compression in place as prescribed N/A Has offloadiing in place as prescribed N/A Experienced any changes in pain level or No management Left Footwear Regular Shoe Right Footwear Regular Shoe Pain Scale: 0-10 Numeric Is Patient Pain Free? Yes - Nurse 1 - General Ulcer Measurement Start: 09/03/21 08:14 Freq: Status: Active Protocol: Activity Type Activity Date Activity User E-Sign Co-Sign Detail Recorded Client Recorded Date Recorded By Document 09/03/21 08:14 NGUYỄN [id number] 09/03/21 08:15 NGUYỄN 09/03/21 08:14 Wound Center Nurse 1 #3 L Stump/Post op -Current Size (cm) - Length 0.2 -Current Size (cm) - Width 1.3 -Current Size (cm) - Depth 0.2 -Total Square Cm 0.26 -Exudate Amt Small -Exudate Type Serosanguineous -Wound Margin Distinct, Outline Attached -Granulation Amt Medium (34-66%) -Granulation Quality [place] -Necrosis Amt Small (1-33%) -Necrotic Tissue Type Adherent Slough -Texture (Yudy-wound Skin Appearance) Assessed, Scarring -Moisture (Yudy-wound Skin Appearance) No Abnormality, Assessed -Color (Yudy-wound Skin Appearance) No Abnormality, Assessed -Temperature (Yudy-wound Skin No Abnormality Appearance) (Pt Warm) -Ulcer Cleansing Rinsed/ Irrigated with Saline -Foul Odor after Cleansing No -Anesthetic Used 5% Lidocaine Gel WC - Nurse 2 - General Ulcer CM Notes Start: 09/03/21 08:14 Freq: Status: Active Protocol: Activity Type Activity Date Activity User E-Sign Co-Sign Detail Recorded Client Recorded Date Recorded By Document 09/03/21 08:44 [id number] 09/03/21 08:47 MARSHALL 09/03/21 08:44 Wound Center Nurse 2 -Time 08:44 -Correct Patient Yes -Correct Side, Site, Position Yes -Correct Procedure Yes -Procedure Performed Yes -Type of Procedure Debridement -Clinical Debridement Subcutaneous -Tissue Removed Subcutaneous -Post Debridement (cm) - Length 0.3 -Post Debridement (cm) - Width 1.5 -Post Debridement (cm) - Depth 0.2 -Total Square (Post) (cm) 0.45 -Area of Debridement (cm) - Length 0.3 -Area of Debridement (cm) - Width 1.5 -Total Square (Area) (cm) 0.45 -Tunneling No -Undermining/Tunneling No -Circular Undermining No -Wound/Ulcer Outcome Not Healed -Ulcer Cleansing Rinsed/ Irrigated with Saline -Foul Odor after Cleansing No -Bioengineered Tissue No -Bleeding Controlled with Pressure -Treatment Response Procedure Tolerated Well -Offloading No -Debridement - Subq, 1st 20sq cm Yes Pain Scale: 0-10 Numeric Is Patient Pain Free? Yes FREDI - Nurse 3 - General Ulcer D/C NN Start: 09/03/21 08:14 Freq: Status: Active Protocol: Activity Type Activity Date Activity User E-Sign Co-Sign Detail Recorded Client Recorded Date Recorded By Document 09/03/21 08:55 NGUYỄN [id number] 09/03/21 08:56 NGUYỄN 09/03/21 08:55 Wound Care Nurse 3 #3 L Stump/Post op -Ulcer Cleansing Rinsed/ Irrigated with Saline -Primary Dressing Applied C Hydrogel ($), NonAdherent Contact Layer -Other Dressing ABD pad Pain Scale: 0-10 Numeric Is Patient Pain Free? Yes WC - Visit Discharge Discharge Condition Stable Ambulatory Status Ambulatory Transportation Private Auto Assessment/Plan Assessment/Plan (1) Pressure ulcer of BKA stump, stage 4: CODE(S): T87.89 - Other complications of amputation stump; L89.894 - Pressure ulcer of other site, stage 4 (2) Diabetes mellitus with ulcer of lower extremity: CODE(S): E11.622 - Type 2 diabetes mellitus with other skin ulcer; L97.909 - Non-pressure chronic ulcer of unspecified part of unspecified lower leg with unspecified severity (3) Below-knee amputation of left lower extremity: CODE(S): S88.112A - Complete traumatic amputation at level between knee and ankle, left lower leg, initial encounter (4) Diabetes: CODE(S): E11.9 - Type 2 diabetes mellitus without complications (5) Smoker: CODE(S): F17.200 - Nicotine dependence, unspecified, uncomplicated PLAN: The patient completed 10 applications of TheraSkin. Wound care - He has had 10 applications of Theraskin. Wound care is collagen hydrogel topped with adaptic, covered by gauze daily. Stump computer tape librarian for compression. Wash the ulcer and yudy wound daily with the dressing change because this is helping with yudy wound excoriation. Wound culture from 07/09/21 positive for Staphylococcus aureus and Streptococcus agalactiae (B). He completed his Augmentin. Encouraged high protein diet to help with wound healing and low carb diet to help keep better control of blood sugars. He has been in to see [facility] about being able to use his prosthesis. He states they think they can place something on his stump to prevent pressure on the area where the ulcer is so once he his healed he could start to wear his prosthesis again so he is not wheel chair bound. He is wearing his leg for 2 hours a day. I discussed my concern that wearing his prosthesis may be putting pressure on the ulcer, preventing it from healing. If there is no improvement at his next visit, we may consider a wound culture. Encouraged patient to stop smoking as it may have deleterious effects on wound healing. Follow up 2 weeks. Follow-up sooner or report to the emergency department should new or concerning symptoms arise.
[2021-09-17 08:55] VITALS: BP 136/74; PULSE 68; RESP 18; TEMP 36
--- NOTE | 2021-09-17 11:03 | PCM.WC.PN ---
History of Present Illness Date of Service: 09/17/21 Chief Complaint: Ulcer on left BKA after I&D of a diabetic abscess/hematoma on 11/06/20 History of Wound: Surgery on 11/06/20 - Surgical preparation left below knee amputation stump with incision and drainage and excisional debridement with partial ostectomy tibia for osteomyelitis and evacuation hematoma for draining diabetic ulcer abscess. (He had his Left BKA on 04/17/20). Operative tissue and bone cultures were negative. Wound cultures from 11/02/20 positive for MSSA, Enterobacter cloacae complex, and Corynebacterium amycolatum. Prealbumin 9.9 on 11/07/20. He was at [facility], Zosyn IV and Doxycycline po which are now completed. He is now living in an apartment. He has has completed ten applications of Theraskin which did help decrease his ulcer size. Wound care - He has had 10 applications of Theraskin. Wound care is collagen hydrogel covered with adaptic and topped with gauze daily. He is wearing a stump marketing programs manager for ompression. Wound culture from 07/09/21 positive for Staphylococcus aureus and Streptococcus agalactiae (B). He was started on Augmentin and a Probiotic. Today he denies any fever. He states his appetite is good. Progress of Wound: Left BKA stump ulcer is stable. He states that he has not been wearing his prosthesis to prevent rubbing. Will obtain a wound culture today. Objective Data Objective Data Vital Signs: Vital Signs Temp Pulse Resp BP 96.8 F L 68 18 136/74 H 09/17/21 08:55 09/17/21 08:55 09/17/21 08:55 09/17/21 08:55 Charges/Coding Procedures Integumentary 111xxx-113xx: 20331 Ria subq tissue 20 sq cm/< Physical Exam Const alert and oriented x3 General Appearance: cooperative HEENT normocephalic Resp normal respiratory effort Cardio regular rate Extremity normal capillary refill General Extremity: Negative for edema Skin Wound Narrative: Left BKA stump ulcer is pink and stable in size. Psych Appearance: grossly normal Debridement Note Debridement Note Wound debrided: BKA stump ulcer Laterality: Left Type of Debridement: Excisional debridement Anesthesia Used: 5% Lidocaine Gel Depth: Down to and including healthy tissue and in the subcutaneous layer Percentage of wound debrided: 100 Instrument Used: 3mm curette Tissue Removed: Non viable tissue and slough, especially around the edges of the ulcer Severity: Fat Layer Exposed Amount of bleeding with debridement: Mild Bleeding Controlled with: Compression and gauze Patient tolerated procedure: Patient tolerated procedure well Post-Debridement Measurements and Additional Note: Post-Debridement Measurements/Treatment FREDI - Nurse 1 - General Ulcer Assessment Start: 09/03/21 08:14 Freq: Status: Active Protocol: ARLETH Activity Type Activity Date Activity User E-sign Co-sign Detail Recorded Client Recorded Date Recorded By Document 09/03/21 08:14 KR [id number] 09/03/21 08:15 KR Document 09/17/21 08:55 DL [id number] 09/17/21 08:58 DL 09/03/21 09/17/21 08:14 08:55 FREDI - Today's Visit Information Type of service Follow-up Visit Follow-up Visit (Physician/SHOE CUTTER (Physician/SHOE CUTTER ) ) Arrival Mode Ambulatory Wheelchair Transfer Assistance None Patient Identification Verified (Name & Yes ) Patient Requires Transmission-Based No Precautions Finger Stick Blood Sugar(mg/dl) (if not checked indicated): Blood Sugar Stated by Patient Vital Signs Temperature (97.8 F-99.1 F) 96.8 F L 96.8 F L Temperature Source Temporal Temporal Pulse Rate (60-100) 62 68 Pulse Location Monitor Monitor Respiratory Rate (12-18) 18 Respiratory rate source Observation Blood Pressure (90/60-120/80) 151/84 H 136/74 H Blood Pressure Mean (mm Hg) 106 94 Source Monitor Monitor Position Sitting Blood Pressure Location Left Arm History Since Last Visit- (Skip if this is Patient's initial visit) Have you changed medications since your No No last visit? Any new allergies or adverse reactions No No Had a fall/change in ADL's that may No No increase risk of falls Signs or symptoms of abuse and/or No No neglect since last visit Have you been in the hospital since your No No last visit? Has dressing in place as prescribed Yes Yes Has compression in place as prescribed N/A Yes Has offloadiing in place as prescribed N/A Yes Experienced any changes in pain level or No management Left Footwear Regular Shoe Right Footwear Regular Shoe Pain Scale: 0-10 Numeric Is Patient Pain Free? Yes Yes WC - Nurse 1 - General Ulcer Measurement Start: 09/03/21 08:14 Freq: Status: Active Protocol: Activity Type Activity Date Activity User E-sign Co-sign Detail Recorded Client Recorded Date Recorded By Document 09/03/21 08:14 KR [id number] 09/03/21 08:15 KR Document 09/17/21 08:55 DL [id number] 09/17/21 08:58 DL 09/03/21 09/17/21 08:14 08:55 Wound Center Nurse 1 #3 L Stump/Post op -Current Size (cm) - Length 0.2 0.3 -Current Size (cm) - Width 1.3 0.8 -Current Size (cm) - Depth 0.2 0.3 -Total Square Cm 0.26 0.24 -Photo Taken No -Exudate Amt Small Medium -Exudate Type Serosanguineous Serosanguineous -Wound Margin Distinct, Distinct, Outline Outline Attached Attached -Granulation Amt Medium (34-66%) Small (1-33%) -Granulation Quality [place] -Necrosis Amt Small (1-33%) Small (1-33%) -Necrotic Tissue Type Adherent Slough -Structure Exposed N/A -Texture (Yudy-wound Skin Appearance) Assessed, Scarring Scarring -Moisture (Yudy-wound Skin Appearance) No Abnormality, Maceration Assessed -Color (Yudy-wound Skin Appearance) No Abnormality, No Abnormality Assessed -Temperature (Yudy-wound Skin No Abnormality No Abnormality Appearance) (Pt Warm) (Pt Warm) -Tenderness on Palpation (Yudy-wound No Skin Appearance) -Ulcer Cleansing Rinsed/ Rinsed/ Irrigated with Irrigated with Saline Saline -Foul Odor after Cleansing No No -Anesthetic Used 5% Lidocaine 5% Lidocaine Gel Gel WC - Nurse 2 - General Ulcer CM Notes Start: 09/03/21 08:14 Freq: Status: Active Protocol: Activity Type Activity Date Activity User E-sign Co-sign Detail Recorded Client Recorded Date Recorded By Document 09/03/21 08:44 MARSHALL [id number] 09/03/21 08:47 MARSHALL 09/03/21 08:44 Wound Center Nurse 2 -Time 08:44 -Correct Patient Yes -Correct Side, Site, Position Yes -Correct Procedure Yes -Procedure Performed Yes -Type of Procedure Debridement -Clinical Debridement Subcutaneous -Tissue Removed Subcutaneous -Post Debridement (cm) - Length 0.3 -Post Debridement (cm) - Width 1.5 -Post Debridement (cm) - Depth 0.2 -Total Square (Post) (cm) 0.45 -Area of Debridement (cm) - Length 0.3 -Area of Debridement (cm) - Width 1.5 -Total Square (Area) (cm) 0.45 -Tunneling No -Undermining/Tunneling No -Circular Undermining No -Wound/Ulcer Outcome Not Healed -Ulcer Cleansing Rinsed/ Irrigated with Saline -Foul Odor after Cleansing No -Bioengineered Tissue No -Bleeding Controlled with Pressure -Treatment Response Procedure Tolerated Well -Offloading No -Debridement - Subq, 1st 20sq cm Yes Pain Scale: 0-10 Numeric Is Patient Pain Free? Yes - Nurse 3 - General Ulcer D/C NN Start: 09/03/21 08:14 Freq: Status: Active Protocol: Activity Type Activity Date Activity User E-sign Co-sign Detail Recorded Client Recorded Date Recorded By Document 09/03/21 08:55 [id number] 09/03/21 08:56 KR Document 09/17/21 09:13 [id number] 09/17/21 09:13 KR 09/03/21 09/17/21 08:55 09:13 Wound Care Nurse 3 #3 L Stump/Post op -Ulcer Cleansing Rinsed/ Rinsed/ Irrigated with Irrigated with Saline Saline -Primary Dressing Applied C Hydrogel ($), C Hydrogel ($), NonAdherent NonAdherent Contact Layer Contact Layer -Other Dressing ABD pad abd pad -Primary Dressing Covered/Secured with Dry Gauze, Secured with Tape Pain Scale: 0-10 Numeric Is Patient Pain Free? Yes Yes - Visit Discharge Discharge Condition Stable Stable Ambulatory Status Ambulatory Ambulatory Transportation Private Auto Private Auto Assessment/Plan Assessment/Plan (1) Pressure ulcer of BKA stump, stage 4: CODE(S): T87.89 - Other complications of amputation stump; L89.894 - Pressure ulcer of other site, stage 4 (2) Diabetes mellitus with ulcer of lower extremity: CODE(S): E11.622 - Type 2 diabetes mellitus with other skin ulcer; L97.909 - Non-pressure chronic ulcer of unspecified part of unspecified lower leg with unspecified severity (3) Below-knee amputation of left lower extremity: CODE(S): S88.112A - Complete traumatic amputation at level between knee and ankle, left lower leg, initial encounter (4) Diabetes: CODE(S): E11.9 - Type 2 diabetes mellitus without complications (5) Smoker: CODE(S): F17.200 - Nicotine dependence, unspecified, uncomplicated PLAN: Plan The patient completed 10 applications of TheraSkin. Wound care - He has had 10 applications of Theraskin. Wound care is collagen hydrogel topped with adaptic, covered by gauze daily. Stump marketing programs manager for compression. Obtained a wound culture today. Depending on the results of the culture, it may necessitate the need for treatment with antibiotics. Wash the ulcer and yudy wound daily with the dressing change because this is helping with yudy wound excoriation. Wound culture from 07/09/21 positive for Staphylococcus aureus and Streptococcus agalactiae (B). He completed his Augmentin. Encouraged high protein diet to help with wound healing and low carb diet to help keep better control of blood sugars. He has not been wearing his prosthesis over the past couple weeks except for his grandson's graduation alliance party because he is trying to prevent any pressure on the ulcer. If there is no improvement at his next visit, we may consider a wound culture. Encouraged patient to stop smoking as it may have deleterious effects on wound healing. Follow up 2 weeks. Follow-up sooner or report to the emergency department should new or concerning symptoms arise.
== END 2021-09-20 23:59 | disposition home or self-care (01) ==
LOC: WC 09:00
PROVIDERS: PCP Family Medicine; Visit Provider Nurse Practitioner Family
DX: E11.622 Type 2 diabetes mellitus with other skin ulcer (principal); T87.89 Other complications of amputation stump; S88.112D Complete traumatic amputation at level between knee and ankle, left lower leg, subsequent encounter; L97.822 Non-pressure chronic ulcer of other part of left lower leg with fat layer exposed; F17.200 Nicotine dependence, unspecified, uncomplicated; Y83.5 Amputation of limb(s) as the cause of abnormal reaction of the patient, or of later complication, without mention of misadventure at the time of the procedure
CPT/HCPCS: 11042; 87070; 87075; 87205

== ENCOUNTER 2021-10-01 08:40 | Outpatient (RCR) | payer MEDICARE, MEDICAID, SELFPAY ==
[2021-09-21 00:29] VITALS: BP 136/74; PULSE 68; RESP 18; TEMP 36
[2021-10-01 08:49] VITALS: BP 157/88; PULSE 64; TEMP 36.2
--- NOTE | 2021-10-01 10:24 | PCM.WC.PN ---
History of Present Illness Date of Service: 10/01/21 Chief Complaint: Ulcer on left BKA after I&D of a diabetic abscess/hematoma on 11/06/20 History of Wound: Surgery on 11/06/20 - Surgical preparation left below knee amputation stump with incision and drainage and excisional debridement with partial ostectomy tibia for osteomyelitis and evacuation hematoma for draining diabetic ulcer abscess. (He had his Left BKA on 04/17/20). Operative tissue and bone cultures were negative. Wound cultures from 11/02/20 positive for MSSA, Enterobacter cloacae complex, and Corynebacterium amycolatum. Prealbumin 9.9 on 11/07/20. He was at [facility], Zosyn IV and Doxycycline po which are now completed. He is now living in an apartment. He has has completed ten applications of Theraskin which did help decrease his ulcer size. Wound care - He has had 10 applications of Theraskin. Wound care is collagen hydrogel covered with adaptic and topped with gauze daily. He is wearing a stump quality assurance assessor for compression. Wound culture from 09/17/21 showed no growth. Wound culture from 07/09/21 positive for Staphylococcus aureus and Streptococcus agalactiae (B). He was started on Augmentin and a Probiotic. Today he denies any fever. He states his appetite is good. Progress of Wound: Left BKA ulcer is stable. It is not showing much progression. The wound culture from 09/17/21 was negative for bacterial growth. Will obtain an x-ray to make sure there is nothing, such as bone, preventing the ulcer from healing. Objective Data Objective Data Vital Signs: Vital Signs Temp Pulse Resp BP 97.1 F L 64 18 157/88 H 10/01/21 08:49 10/01/21 08:49 09/21/21 00:29 10/01/21 08:49 Charges/Coding Procedures Integumentary 111xxx-113xx: 28005 Ria subq tissue 20 sq cm/< Physical Exam Const alert and oriented x3 General Appearance: cooperative HEENT normocephalic Resp normal respiratory effort Cardio regular rate Extremity normal capillary refill General Extremity: Negative for edema Skin Wound Narrative: Left BKA stump ulcer is pink and stable in size. Yudy wound is clear. Neuro Speech: speech normal Psych Appearance: grossly normal Debridement Note Debridement Note Wound debrided: BKA stump ulcer Laterality: Left Type of Debridement: Excisional debridement Anesthesia Used: 5% Lidocaine Gel Depth: Down to and including healthy tissue and in the subcutaneous layer Percentage of wound debrided: 100 Instrument Used: 3mm curette Tissue Removed: Non viable tissue and slough, especially around the edges of the ulcer Severity: Fat Layer Exposed Amount of bleeding with debridement: Mild Bleeding Controlled with: Compression and gauze Patient tolerated procedure: Patient tolerated procedure well Post-Debridement Measurements and Additional Note: Post-Debridement Measurements/Treatment - Nurse 1 - General Ulcer Assessment Start: 10/01/21 08:48 Freq: Status: Active Protocol: ARLETH Activity Type Activity Date Activity User E-sign Co-sign Detail Recorded Client Recorded Date Recorded By Document 10/01/21 08:49 NGUYỄN [id number] 10/01/21 08:51 NGUYỄN 10/01/21 08:49 WC - Today's Visit Information Type of service Follow-up Visit (Physician/REHAB CARE ASSISTANT ) Arrival Mode Ambulatory Patient Identification Verified (Name & Yes ) Vital Signs Temperature (97.8 F-99.1 F) 97.1 F L Temperature Source Temporal Pulse Rate (60-100) 64 Pulse Location Monitor Blood Pressure (90/60-120/80) 157/88 H Blood Pressure Mean (mm Hg) 111 Source Monitor Position Sitting Blood Pressure Location Right Arm History Since Last Visit- (Skip if this is Patient's initial visit) Have you changed medications since your No last visit? Any new allergies or adverse reactions No Had a fall/change in ADL's that may No increase risk of falls Signs or symptoms of abuse and/or No neglect since last visit Have you been in the hospital since your No last visit? Has dressing in place as prescribed Yes Has compression in place as prescribed N/A Has offloadiing in place as prescribed N/A Experienced any changes in pain level or No management Pain Scale: 0-10 Numeric Is Patient Pain Free? Yes [facility] Nurse 1 - General Ulcer Measurement Start: 10/01/21 08:48 Freq: Status: Active Protocol: Activity Type Activity Date Activity User E-sign Co-sign Detail Recorded Client Recorded Date Recorded By Document 10/01/21 08:49 NGUYỄN [id number] 10/01/21 08:51 NGUYỄN 10/01/21 08:49 Wound Center Nurse 1 #3 L Stump/Post op -Current Size (cm) - Length 0.2 -Current Size (cm) - Width 1.1 -Current Size (cm) - Depth 0.3 -Total Square Cm 0.22 -Exudate Amt Small -Exudate Type Serosanguineous -Wound Margin Distinct, Outline Attached -Granulation Amt Medium (34-66%) -Granulation Quality [place] -Necrosis Amt Small (1-33%) -Necrotic Tissue Type Adherent Slough -Texture (Yudy-wound Skin Appearance) Assessed, Scarring -Moisture (Yudy-wound Skin Appearance) No Abnormality, Assessed -Color (Yudy-wound Skin Appearance) No Abnormality, Assessed -Temperature (Yudy-wound Skin No Abnormality Appearance) (Pt Warm) -Tenderness on Palpation (Yudy-wound No Skin Appearance) -Ulcer Cleansing Rinsed/ Irrigated with Saline -Foul Odor after Cleansing No -Anesthetic Used 5% Lidocaine Gel WC - Nurse 2 - General Ulcer CM Notes Start: 10/01/21 08:48 Freq: Status: Active Protocol: Activity Type Activity Date Activity User E-sign Co-sign Detail Recorded Client Recorded Date Recorded By Document 10/01/21 09:16 MARSHALL [id number] 10/01/21 09:20 MARSHALL 10/01/21 09:16 Wound Center Nurse 2 -Time 09:17 -Correct Patient Yes -Correct Side, Site, Position Yes -Correct Procedure Yes -Procedure Performed Yes -Type of Procedure Debridement -Clinical Debridement Subcutaneous -Tissue Removed Subcutaneous -Post Debridement (cm) - Length 0.4 -Post Debridement (cm) - Width 1.5 -Post Debridement (cm) - Depth 0.2 -Total Square (Post) (cm) 0.60 -Area of Debridement (cm) - Length 0.4 -Area of Debridement (cm) - Width 1.5 -Total Square (Area) (cm) 0.60 -Tunneling No -Undermining/Tunneling No -Circular Undermining No -Wound/Ulcer Outcome Not Healed -Ulcer Cleansing Rinsed/ Irrigated with Saline -Foul Odor after Cleansing No -Bioengineered Tissue No -Bleeding Controlled with Pressure -Treatment Response Procedure Tolerated Well -Offloading No -Debridement - Subq, 1st 20sq cm Yes Pain Scale: 0-10 Numeric Is Patient Pain Free? Yes WC - Nurse 3 - General Ulcer D/C NN Start: 10/01/21 08:48 Freq: Status: Active Protocol: Activity Type Activity Date Activity User E-sign Co-sign Detail Recorded Client Recorded Date Recorded By Document 10/01/21 09:27 MARSHALL [id number] 10/01/21 09:28 MARSHALL 10/01/21 09:27 Wound Care Nurse 3 #3 L Stump/Post op -Ulcer Cleansing Rinsed/ Irrigated with Saline -Foul Odor after Cleansing No -Primary Dressing Applied Hydrofiber, NonAdherent Contact Layer -Primary Dressing Covered/Secured with Dry Gauze, Secured with Tape Pain Scale: 0-10 Numeric Is Patient Pain Free? Yes WC - Visit Discharge Discharge Condition Stable Ambulatory Status Ambulatory Transportation Private Auto Medication Reconcilliation completed & Yes provided to patient/care provider Clinical Summary of Care Provided Yes Assessment/Plan Assessment/Plan (1) Pressure ulcer of BKA stump, stage 4: CODE(S): T87.89 - Other complications of amputation stump; L89.894 - Pressure ulcer of other site, stage 4 (2) Diabetes mellitus with ulcer of lower extremity: CODE(S): E11.622 - Type 2 diabetes mellitus with other skin ulcer; L97.909 - Non-pressure chronic ulcer of unspecified part of unspecified lower leg with unspecified severity (3) Below-knee amputation of left lower extremity: CODE(S): S88.112A - Complete traumatic amputation at level between knee and ankle, left lower leg, initial encounter (4) Diabetes: CODE(S): E11.9 - Type 2 diabetes mellitus without complications (5) Smoker: CODE(S): F17.200 - Nicotine dependence, unspecified, uncomplicated PLAN: Plan The patient completed 10 applications of TheraSkin. Wound care - He has had 10 applications of Theraskin. Wound care is collagen hydrogel topped with adaptic, covered by gauze daily. Stump quality assurance assessor for compression. Obtained a wound culture on 09/17/21 which was negative for bacterial growth. Wash the ulcer and yudy wound daily with the dressing change because this is helping with yudy wound excoriation, which has resolved. Wound culture from 07/09/21 positive for Staphylococcus aureus and Streptococcus agalactiae (B). He completed his Augmentin. Encouraged high protein diet to help with wound healing and low carb diet to help keep better control of blood sugars. He states he is hardly wearing his prosthesis unless it is absolutely necessary. He did wear it into the wound clinic today. Ordered an xray of his left BKA stump to make sure there is no bone or foreign body from preventing this ulcer from healing. Encouraged patient to stop smoking as it may have deleterious effects on wound healing. Follow up 3 weeks. Follow-up sooner or report to the emergency department should new or concerning symptoms arise.
== END 2021-10-21 23:59 | disposition home or self-care (01) ==
LOC: WC 08:40
PROVIDERS: PCP Family Medicine; Visit Provider Nurse Practitioner Family
DX: E11.622 Type 2 diabetes mellitus with other skin ulcer (principal); T87.89 Other complications of amputation stump; S88.112D Complete traumatic amputation at level between knee and ankle, left lower leg, subsequent encounter; L97.822 Non-pressure chronic ulcer of other part of left lower leg with fat layer exposed; F17.200 Nicotine dependence, unspecified, uncomplicated; Y83.5 Amputation of limb(s) as the cause of abnormal reaction of the patient, or of later complication, without mention of misadventure at the time of the procedure
CPT/HCPCS: 11042

== ENCOUNTER → 2021-10-31 | Outpatient (CLI) | payer MEDICARE, MEDICAID, SELFPAY ==
--- NOTE | 2021-10-31 16:41 | MRI_ITS ---
STUDY: MRI LOWER EXTREMITY LEFT TIBIA/FIBULA WITH AND WITHOUT CONTRAST REASON FOR EXAM: Left stump infection, nonhealing ulcer, evaluate osteomyelitis, debridement of stump 10/29/2021. TECHNIQUE: Standardized fat and water weighted pulse sequences were obtained in all 3 orthogonal planes, before and after intravenous administration of 18ML of Dotarem. COMPARISON: MRI images 11/03/2020. FINDINGS: There is a below the knee amputation with bone edema of the tibia extending to the amputation site (inversion recovery sagittal images 12-16) and corresponding decreased T1 bone marrow signal (T1 sagittal images 12-16) and contrast enhancement (postcontrast T1 sagittal images 12-17) consistent with osteomyelitis. There is no bone edema of the proximal fibula. There is a small fluid collection at the distal aspect of the amputated tibia (inversion recovery sagittal images 13-15) suggestive of a small abscess measuring approximately 0.5 cm in length and 2.4 cm in AP dimension. There is edema in the subcutis adipose space of the stump. MRI/Lower Ext No Joint W/WO Cont IMPRESSION: Bone edema with contrast enhancement of the tibia consistent with osteomyelitis. Small fluid collection at the distal aspect of the amputated tibia suggestive of small abscess. Electronically Signed: Jose Francisco Chang MD at 18:41 EDT ,
[2021-10-31 17:20] LABS: CREATININE FINGERSTICK < 0.9 mg/dL (0.70-1.30); EGFR FINGERSTICK > 60.0000 mL/min (>60)
== END | disposition home or self-care (01) ==
LOC: MRI 16:37
PROVIDERS: PCP Family Medicine; Visit Provider Nurse Practitioner Family
DX: M86.9 Osteomyelitis, unspecified (principal); L97.929 Non-pressure chronic ulcer of unspecified part of left lower leg with unspecified severity
CPT/HCPCS: 73720; A9575

== ENCOUNTER 2021-11-12 09:00 | Outpatient (RCR) | payer MEDICARE, MEDICAID, SELFPAY ==
[2021-10-22 00:24] VITALS: BP 157/88; PULSE 64; RESP 18; TEMP 36.2
[2021-10-29 08:41] VITALS: BP 144/86; PULSE 68; RESP 18; TEMP 35.9
--- NOTE | 2021-10-29 10:18 | PCM.WC.PN ---
History of Present Illness Date of Service: 10/29/21 Chief Complaint: Ulcer on left BKA after I&D of a diabetic abscess/hematoma on 11/06/20 History of Wound: Surgery on 11/06/20 - Surgical preparation left below knee amputation stump with incision and drainage and excisional debridement with partial ostectomy tibia for osteomyelitis and evacuation hematoma for draining diabetic ulcer abscess. (He had his Left BKA on 04/17/20). Operative tissue and bone cultures were negative. Wound cultures from 11/02/20 positive for MSSA, Enterobacter cloacae complex, and Corynebacterium amycolatum. Prealbumin 9.9 on 11/07/20. He was at [facility], Zosyn IV and Doxycycline po which are now completed. He is now living in an apartment. He has has completed ten applications of Theraskin which did help decrease his ulcer size. Wound care - He has had 10 applications of Theraskin. Start moistened Garima covered with gauze daily. He is wearing a stump occup therapist for compression. Wound culture from 09/17/21 showed no growth. Wound culture from 07/09/21 positive for Staphylococcus aureus and Streptococcus agalactiae (B). He was started on Augmentin and a Probiotic. Today he denies any fever. He states his appetite is good. Progress of Wound: Left BKA ulcer is slightly larger. He has not been putting anything on the ulcer because he ran out of collagen hydrogel. Objective Data Objective Data Vital Signs: Vital Signs Temp Pulse Resp BP 96.6 F L 68 18 144/86 H 10/29/21 08:41 10/29/21 08:41 10/29/21 08:41 10/29/21 08:41 Charges/Coding Procedures Integumentary 111xxx-113xx: 31155 Ria subq tissue 20 sq cm/< Physical Exam Const alert and oriented x3 General Appearance: cooperative HEENT normocephalic Resp normal respiratory effort Cardio regular rate Extremity normal capillary refill General Extremity: Negative for edema Skin Wound Narrative: Left BKA stump ulcer is slightly larger in size. Yudy wound is clear. Neuro oriented x3 and moves all extremities Psych affect normal Appearance: grossly normal Debridement Note Debridement Note Wound debrided: BKA stump ulcer Laterality: Left Type of Debridement: Excisional debridement Anesthesia Used: 5% Lidocaine Gel Depth: Down to and including healthy tissue and in the subcutaneous layer Percentage of wound debrided: 100 Instrument Used: 3mm curette Tissue Removed: Non viable tissue and slough Severity: Fat Layer Exposed Amount of bleeding with debridement: Mild Bleeding Controlled with: Compression and gauze Patient tolerated procedure: Patient tolerated procedure well Post-Debridement Measurements and Additional Note: Post-Debridement Measurements/Treatment - Nurse 1 - General Ulcer Assessment Start: 10/29/21 08:41 Freq: Status: Active Protocol: ARLETH Activity Type Activity Date Activity User E-sign Co-sign Detail Recorded Client Recorded Date Recorded By Document 10/29/21 08:41 DL [id number] 10/29/21 08:45 DL 10/29/21 08:41 WC - Today's Visit Information Type of service Follow-up Visit (Physician/SP[employer] G[employer]IN DRYER ) Arrival Mode Wheelchair Transfer Assistance None Patient Identification Verified (Name & Yes ) Finger Stick Blood Sugar(mg/dl) (if 98 indicated): Blood Sugar Stated by Patient Vital Signs Temperature (97.8 F-99.1 F) 96.6 F L Temperature Source Temporal Pulse Rate (60-100) 68 Pulse Location Monitor Respiratory Rate (12-18) 18 Respiratory rate source Observation Blood Pressure (90/60-120/80) 144/86 H Blood Pressure Mean (mm Hg) 105 Source Monitor History Since Last Visit- (Skip if this is Patient's initial visit) Have you changed medications since your No last visit? Any new allergies or adverse reactions No Had a fall/change in ADL's that may No increase risk of falls Signs or symptoms of abuse and/or No neglect since last visit Have you been in the hospital since your No last visit? Has dressing in place as prescribed Yes Has compression in place as prescribed N/A Has offloadiing in place as prescribed Yes Experienced any changes in pain level or No management Pain Scale: 0-10 Numeric Is Patient Pain Free? Yes - Nurse 1 - General Ulcer Measurement Start: 10/29/21 08:41 Freq: Status: Active Protocol: Activity Type Activity Date Activity User E-sign Co-sign Detail Recorded Client Recorded Date Recorded By Document 10/29/21 08:41 DL [id number] 10/29/21 08:45 DL 10/29/21 08:41 Wound Center Nurse 1 #3 L Stump/Post op -Current Size (cm) - Length 0.2 -Current Size (cm) - Width 0.6 -Current Size (cm) - Depth 0.2 -Total Square Cm 0.12 -Photo Taken No -Exudate Amt Medium -Exudate Type Serosanguineous -Wound Margin Distinct, Outline Attached -Granulation Amt Large (67-100%) -Granulation Quality [place] -Necrosis Amt None Present (0 %) -Structure Exposed N/A -Texture (Yudy-wound Skin Appearance) Scarring -Moisture (Yudy-wound Skin Appearance) No Abnormality -Color (Yudy-wound Skin Appearance) No Abnormality -Temperature (Yudy-wound Skin No Abnormality Appearance) (Pt Warm) -Tenderness on Palpation (Yudy-wound No Skin Appearance) -Ulcer Cleansing Rinsed/ Irrigated with Saline -Foul Odor after Cleansing No -Anesthetic Used 5% Lidocaine Gel WC - Nurse 2 - General Ulcer CM Notes Start: 10/29/21 08:41 Freq: Status: Active Protocol: Activity Type Activity Date Activity User E-sign Co-sign Detail Recorded Client Recorded Date Recorded By Document 10/29/21 09:08 MARSHALL [id number] 10/29/21 09:10 MARSHALL 10/29/21 09:08 Wound Center Nurse 2 -Time 09:08 -Correct Patient Yes -Correct Side, Site, Position Yes -Correct Procedure Yes -Procedure Performed Yes -Type of Procedure Debridement -Clinical Debridement Subcutaneous -Tissue Removed Subcutaneous -Post Debridement (cm) - Length 0.6 -Post Debridement (cm) - Width 1.1 -Post Debridement (cm) - Depth 0.5 -Total Square (Post) (cm) 0.66 -Area of Debridement (cm) - Length 0.6 -Area of Debridement (cm) - Width 1.1 -Total Square (Area) (cm) 0.66 -Tunneling No -Undermining/Tunneling No -Circular Undermining No -Wound/Ulcer Outcome Not Healed -Ulcer Cleansing Rinsed/ Irrigated with Saline -Foul Odor after Cleansing No -Bioengineered Tissue No -Bleeding Controlled with Silver Nitrate -Treatment Response Procedure Tolerated Well -Offloading No -Debridement - Subq, 1st 20sq cm Yes Pain Scale: 0-10 Numeric Is Patient Pain Free? Yes Assessment/Plan Assessment/Plan (1) Pressure ulcer of BKA stump, stage 4: CODE(S): T87.89 - Other complications of amputation stump; L89.894 - Pressure ulcer of other site, stage 4 (2) Diabetes mellitus with ulcer of lower extremity: CODE(S): E11.622 - Type 2 diabetes mellitus with other skin ulcer; L97.909 - Non-pressure chronic ulcer of unspecified part of unspecified lower leg with unspecified severity (3) Below-knee amputation of left lower extremity: CODE(S): S88.112A - Complete traumatic amputation at level between knee and ankle, left lower leg, initial encounter (4) Diabetes: CODE(S): E11.9 - Type 2 diabetes mellitus without complications (5) Smoker: CODE(S): F17.200 - Nicotine dependence, unspecified, uncomplicated PLAN: Plan The patient completed 10 applications of TheraSkin. Wound care - He has had 10 applications of Theraskin. Wound care is moistened Garima covered by gauze daily. Stump occup therapist for compression. Obtained a wound culture on 09/17/21 which was negative for bacterial growth. Wash the ulcer and yudy wound daily with the dressing change because this is helping with yudy wound excoriation, which has resolved. Wound culture from 07/09/21 positive for Staphylococcus aureus and Streptococcus agalactiae (B). He completed his Augmentin. Encouraged high protein diet to help with wound healing and low carb diet to help keep better control of blood sugars. He states he is hardly wearing his prosthesis unless it is absolutely necessary. He did wear it into the wound clinic today. Ordered an xray of his left BKA stump to make sure there is no bone or foreign body from preventing this ulcer from healing. Encouraged patient to stop smoking as it may have deleterious effects on wound healing. Follow up 2 weeks. Follow-up sooner or report to the emergency department should new or concerning symptoms arise.
[2021-11-12 08:56] VITALS: BP 131/78; PULSE 74; TEMP 35.8
--- NOTE | 2021-11-12 11:49 | PN.PCM_ITS ---
History of Present Illness Date of Service: 11/12/21 Chief Complaint: Ulcer on left BKA after I&D of a diabetic abscess/hematoma on 11/06/20 History of Wound: Surgery on 11/06/20 - Surgical preparation left below knee amputation stump with incision and drainage and excisional debridement with partial ostectomy tibia for osteomyelitis and evacuation hematoma for draining diabetic ulcer abscess. (He had his Left BKA on 04/17/20). Operative tissue and bone cultures were negative. Wound cultures from 11/02/20 positive for MSSA, Enterobacter cloacae complex, and Corynebacterium amycolatum. Prealbumin 9.9 on 11/07/20. He was at [place] [facility], Zosyn IV and Doxycycline po which are now completed. He is now living in an apartment. Wound culture from 09/17/21 showed no growth. Wound culture from 07/09/21 positive for Staphylococcus aureus and Streptococcus agalactiae (B). He was started on Augmentin and a Probiotic. Xray obtained on 10/01/21 of his left BKA stump because of his non healing ulcer. The xray showed bony abnormalities along the lateral aspect of the amputation site of the proximal tibia. Consider further evaluation to exclude osteomyelitis. He obtained this xray at [facility]. MRI obtained 10/31/21, at [facility], of his left BKA which showed Bone edema with contrast enhancement of the tibia consistent with osteomyelitis. Small fluid collection at the distal aspect of the amputated tibia suggestive of small abscess. He has has completed ten applications of Theraskin which did help decrease his ulcer size. Wound care - He has had 10 applications of Theraskin. Start moistened Garima covered with gauze daily. He is wearing a stump director of rooms for compression. Today he denies any fever. He states his appetite is good. Progress of Wound: Left BKA ulcer is stable. Objective Data Objective Data Vital Signs: Vital Signs Temp Pulse Resp BP 96.5 F L 74 18 131/78 H 11/12/21 08:56 11/12/21 08:56 10/29/21 08:41 11/12/21 08:56 Charges/Coding Procedures Integumentary 111xxx-113xx: [id number] Ria subq tissue 20 sq cm/< Physical Exam Const alert and oriented x3 General Appearance: cooperative HEENT normocephalic Resp normal respiratory effort Cardio regular rate Extremity normal capillary refill General Extremity: Negative for edema Skin Wound Narrative: Left BKA stump ulcer is stable. Yudy wound is clear. Neuro oriented x3 and moves all extremities Psych affect normal Appearance: grossly normal Debridement Note Debridement Note Wound debrided: BKA stump ulcer Laterality: Left Type of Debridement: Excisional debridement Anesthesia Used: 5% Lidocaine Gel Depth: Down to and including healthy tissue and in the subcutaneous layer Percentage of wound debrided: 100 Instrument Used: 3mm curette Tissue Removed: Non viable tissue and slough Severity: Fat Layer Exposed Amount of bleeding with debridement: Mild Bleeding Controlled with: Compression and gauze Patient tolerated procedure: Patient tolerated procedure well Post-Debridement Measurements and Additional Note: Post-Debridement Measurements/Treatment - Nurse 1 - General Ulcer Assessment Start: 10/29/21 08:41 Freq: Status: Active Protocol: ARLETH Activity Type Activity Date Activity User E-sign Co-sign Detail Recorded Client Recorded Date Recorded By Document 10/29/21 08:41 DL [id number] 10/29/21 08:45 DL Document 11/12/21 08:56 KR [id number] 11/12/21 08:57 KR 10/29/21 11/12/21 08:41 08:56 - Today's Visit Information Type of service Follow-up Visit Follow-up Visit (Physician/MAINSTREAMING FACILITATOR (Physician/MAINSTREAMING FACILITATOR ) ) Arrival Mode Wheelchair Wheelchair Transfer Assistance None Patient Identification Verified (Name & Yes Yes ) Finger Stick Blood Sugar(mg/dl) (if 98 indicated): Blood Sugar Stated by Patient Vital Signs Temperature (97.8 F-99.1 F) 96.6 F L 96.5 F L Temperature Source Temporal Temporal Pulse Rate (60-100) 68 74 Pulse Location Monitor Monitor Respiratory Rate (12-18) 18 Respiratory rate source Observation Blood Pressure (90/60-120/80) 144/86 H 131/78 H Blood Pressure Mean (mm Hg) 105 95 Source Monitor Monitor Position Semi-Fowlers Blood Pressure Location Left Arm History Since Last Visit- (Skip if this is Patient's initial visit) Have you changed medications since your No No last visit? Any new allergies or adverse reactions No No Had a fall/change in ADL's that may No No increase risk of falls Signs or symptoms of abuse and/or No No neglect since last visit Have you been in the hospital since your No No last visit? Has dressing in place as prescribed Yes Yes Has compression in place as prescribed N/A N/A Has offloadiing in place as prescribed Yes N/A Experienced any changes in pain level or No No management Left Footwear Regular Shoe Pain Scale: 0-10 Numeric Is Patient Pain Free? Yes Yes WC - Nurse 1 - General Ulcer Measurement Start: 10/29/21 08:41 Freq: Status: Active Protocol: Activity Type Activity Date Activity User E-sign Co-sign Detail Recorded Client Recorded Date Recorded By Document 10/29/21 08:41 DL [id number] 10/29/21 08:45 DL Document 11/12/21 08:56 KR [id number] 11/12/21 08:57 KR 10/29/21 11/12/21 08:41 08:56 Wound Center Nurse 1 #3 L Stump/Post op -Current Size (cm) - Length 0.2 0.5 -Current Size (cm) - Width 0.6 0.7 -Current Size (cm) - Depth 0.2 0.2 -Total Square Cm 0.12 0.35 -Photo Taken No -Undermining/Tunneling Starts (O'clock 11 ) -Undermining/Tunneling Ends (O'clock) 2 -Maximum Distance (cm) 0.2 -Exudate Amt Medium Small -Exudate Type Serosanguineous Serosanguineous -Wound Margin Distinct, Distinct, Outline Outline Attached Attached -Granulation Amt Large (67-100%) Medium (34-66%) -Granulation Quality Sawpit Sawpit -Necrosis Amt None Present (0 Small (1-33%) %) -Necrotic Tissue Type Adherent Slough -Structure Exposed N/A -Texture (Yudy-wound Skin Appearance) Scarring Assessed, Scarring -Moisture (Yudy-wound Skin Appearance) No Abnormality No Abnormality, Assessed -Color (Yudy-wound Skin Appearance) No Abnormality No Abnormality, Assessed -Temperature (Yudy-wound Skin No Abnormality No Abnormality Appearance) (Pt Warm) (Pt Warm) -Tenderness on Palpation (Yudy-wound No No Skin Appearance) -Ulcer Cleansing Rinsed/ Rinsed/ Irrigated with Irrigated with Saline Saline -Foul Odor after Cleansing No No -Anesthetic Used 5% Lidocaine 5% Lidocaine Gel Gel FREDI - Nurse 2 - General Ulcer CM Notes Start: 10/29/21 08:41 Freq: Status: Active Protocol: Activity Type Activity Date Activity User E-sign Co-sign Detail Recorded Client Recorded Date Recorded By Document 10/29/21 09:08 [id number] 10/29/21 09:10 JF Document 11/12/21 09:10 [id number] 11/12/21 09:14 10/29/21 11/12/21 09:08 09:10 Wound Center Nurse 2 #3 L Stump/Post op -Time 09:08 09:11 -Correct Patient Yes Yes -Correct Side, Site, Position Yes Yes -Correct Procedure Yes Yes -Procedure Performed Yes Yes -Type of Procedure Debridement Debridement -Clinical Debridement Subcutaneous Subcutaneous -Tissue Removed Subcutaneous Subcutaneous -Post Debridement (cm) - Length 0.6 0.5 -Post Debridement (cm) - Width 1.1 1.0 -Post Debridement (cm) - Depth 0.5 0.4 -Total Square (Post) (cm) 0.66 0.50 -Area of Debridement (cm) - Length 0.6 0.5 -Area of Debridement (cm) - Width 1.1 1.0 -Total Square (Area) (cm) 0.66 0.50 -Tunneling No No -Undermining/Tunneling No No -Circular Undermining No No -Wound/Ulcer Outcome Not Healed Not Healed -Ulcer Cleansing Rinsed/ Rinsed/ Irrigated with Irrigated with Saline Saline -Foul Odor after Cleansing No No -Bioengineered Tissue No No -Bleeding Controlled with Silver Nitrate Pressure -Treatment Response Procedure Procedure Tolerated Well Tolerated Well -Offloading No No -Assistive Device(s) Wheelchair -Debridement - Subq, 1st 20sq cm Yes Yes Pain Scale: 0-10 Numeric Is Patient Pain Free? Yes Yes FREDI - Nurse 3 - General Ulcer D/C NN Start: 10/29/21 08:41 Freq: Status: Active Protocol: Activity Type Activity Date Activity User E-sign Co-sign Detail Recorded Client Recorded Date Recorded By Document 10/29/21 10:25 [id number] 10/29/21 10:25 KR Document 11/12/21 10:16 NGUYỄN [id number] 08/22/22 10:17 KR 10/29/21 11/12/21 10:25 10:16 Wound Care Nurse 3 #3 L Stump/Post op -Ulcer Cleansing Rinsed/ Rinsed/ Irrigated with Irrigated with Saline Saline -Primary Dressing Applied Promogran Promogran Garima Matter Garima Matter -Primary Dressing Covered/Secured with Dry Gauze, Dry Gauze, Secured with Secured with Tape Tape -Promogran Garima Matter 1 1 Pain Scale: 0-10 Numeric Is Patient Pain Free? Yes Yes WC - Visit Discharge Discharge Condition Stable Stable Ambulatory Status Wheelchair Wheelchair Transportation Private Auto Private Auto Assessment/Plan Assessment/Plan (1) Pressure ulcer of BKA stump, stage 4: CODE(S): T87.89 - Other complications of amputation stump; L89.894 - Pressure ulcer of other site, stage 4 (2) Diabetes mellitus with ulcer of lower extremity: CODE(S): E11.622 - Type 2 diabetes mellitus with other skin ulcer; L97.909 - Non-pressure chronic ulcer of unspecified part of unspecified lower leg with unspecified severity (3) Below-knee amputation of left lower extremity: CODE(S): S88.112A - Complete traumatic amputation at level between knee and ankle, left lower leg, initial encounter (4) Diabetes: CODE(S): E11.9 - Type 2 diabetes mellitus without complications (5) Smoker: CODE(S): F17.200 - Nicotine dependence, unspecified, uncomplicated PLAN: Plan The patient completed 10 applications of TheraSkin. Wound care - He has had 10 applications of Theraskin. Wound care is moistened Garima covered by gauze daily. Stump director of rooms for compression. He rarely wears his prosthesis due to his ulcer. Obtained a wound culture on 09/17/21 which was negative for bacterial growth. Wash the ulcer and yudy wound daily with the dressing change because this is helping with yudy wound excoriation, which has resolved. Wound culture from 07/09/21 positive for Staphylococcus aureus and Streptococcus agalactiae (B). He completed his Augmentin. Encouraged high protein diet to help with wound healing and low carb diet to help keep better control of blood sugars. He states he is hardly wearing his prosthesis unless it is absolutely necessary. Discussed his MRI results and since he has an abscess and osteomyelitis, will refer him to Dr. Boston for consult for operative debridement. Encouraged patient to stop smoking as it may have deleterious effects on wound healing. Follow up 2 weeks. Follow-up sooner or report to the emergency department should new or concerning symptoms arise.
== END 2021-11-21 23:59 | disposition home or self-care (01) ==
LOC: WC 09:00
PROVIDERS: PCP Family Medicine; Visit Provider Nurse Practitioner Family
DX: E11.622 Type 2 diabetes mellitus with other skin ulcer (principal); T87.89 Other complications of amputation stump; L97.822 Non-pressure chronic ulcer of other part of left lower leg with fat layer exposed; R60.0 Localized edema; F17.200 Nicotine dependence, unspecified, uncomplicated; Y83.5 Amputation of limb(s) as the cause of abnormal reaction of the patient, or of later complication, without mention of misadventure at the time of the procedure
CPT/HCPCS: 11042

== ENCOUNTER 2021-12-10 08:33 | Outpatient (RCR) | payer MEDICAID, MEDICARE, SELFPAY ==
[2021-11-22 00:27] VITALS: BP 131/78; PULSE 74; RESP 18; TEMP 35.8
[2021-12-10 08:43] VITALS: BP 154/83; PULSE 57; RESP 18; TEMP 35.6
--- NOTE | 2021-12-10 08:59 | PN.PCM_ITS ---
History of Present Illness Date of Service: 12/10/21 Chief Complaint: Ulcer on left BKA after I&D of a diabetic abscess/hematoma on 11/06/20 History of Wound: Surgery on 11/06/20 - Surgical preparation left below knee amputation stump with incision and drainage and excisional debridement with partial ostectomy tibia for osteomyelitis and evacuation hematoma for draining diabetic ulcer abscess. (He had his Left BKA on 04/17/20). Operative tissue and bone cultures were negative. Wound cultures from 11/02/20 positive for MSSA, Enterobacter cloacae complex, and Corynebacterium amycolatum. Prealbumin 9.9 on 11/07/20. He was evaluated by Dr. Boston on 12/06/21 for an operative debridement and pos sible osteomyelitis. Wound culture from 09/17/21 showed no growth. Wound culture from 07/09/21 positive for Staphylococcus aureus and Streptococcus agalactiae (B). He was started on Augmentin and a Probiotic. Xray obtained on 10/01/21 of his left BKA stump because of his non healing ulcer. The xray showed bony abnormalities along the lateral aspect of the amputation site of the proximal tibia. Consider further evaluation to exclude osteomyelitis. He obtained this xray at [facility]. MRI obtained 10/31/21, at [facility], of his left BKA which showed Bone edema with contrast enhancement of the tibia consistent with osteomyelitis. Small fluid collection at the distal aspect of the amputated tibia suggestive of small abscess. He has has completed ten applications of Theraskin which did help decrease his ulcer size. Wound care - He has had 10 applications of Theraskin. Aquacel-Ag covered with gauze daily. He is wearing a stump certified nurses' aide for compression. Today he denies any fever. He states his appetite is good. Objective Data Objective Data Vital Signs: Vital Signs Temp Pulse Resp BP 96.1 F L 57 L 18 154/83 H 12/10/21 08:43 12/10/21 08:43 12/10/21 08:43 12/10/21 08:43 Charges/Coding Procedures Integumentary 111xxx-113xx: [id number] Ria subq tissue 20 sq cm/< Physical Exam Const alert and oriented x3 General Appearance: cooperative HEENT normocephalic Resp normal respiratory effort Cardio regular rate Extremity normal capillary refill General Extremity: Negative for edema Skin Wound Narrative: Left BKA stump ulcer has increased depth. Yudy wound is clear. Neuro oriented x3 and moves all extremities Psych affect normal Appearance: grossly normal Debridement Note Debridement Note Wound debrided: BKA stump ulcer Laterality: Left Type of Debridement: Excisional debridement Anesthesia Used: 5% Lidocaine Gel Depth: Down to and including healthy tissue and in the subcutaneous layer Percentage of wound debrided: 100 Instrument Used: 3mm curette Tissue Removed: Non viable tissue and slough Severity: Fat Layer Exposed Amount of bleeding with debridement: Mild Bleeding Controlled with: Pressure and Compression and gauze Patient tolerated procedure: Patient tolerated procedure well Post-Debridement Measurements and Additional Note: Post-Debridement Measurements/Treatment FREDI - Nurse 1 - General Ulcer Assessment Start: 12/10/21 08:43 Freq: Status: Active Protocol: ARLETH Activity Type Activity Date Activity User E-sign Co-sign Detail Recorded Client Recorded Date Recorded By Document 12/10/21 08:43 MARSHALL [id number] 12/10/21 08:44 MARSHALL 12/10/21 08:43 FREDI - Today's Visit Information Type of service Follow-up Visit (Physician/CT SCAN TECH ) Arrival Mode Wheelchair Patient Identification Verified (Name & Yes ) Patient Requires Transmission-Based No Precautions Vital Signs Temperature (97.8 F-99.1 F) 96.1 F L Temperature Source Temporal Pulse Rate (60-100) 57 L Pulse Location Monitor Respiratory Rate (12-18) 18 Respiratory rate source Observation Blood Pressure (90/60-120/80) 154/83 H Blood Pressure Mean (mm Hg) 106 Source Monitor Position Semi-Fowlers Blood Pressure Location Left Arm History Since Last Visit- (Skip if this is Patient's initial visit) Have you changed medications since your No last visit? Any new allergies or adverse reactions No Had a fall/change in ADL's that may No increase risk of falls Signs or symptoms of abuse and/or No neglect since last visit Have you been in the hospital since your No last visit? Has dressing in place as prescribed Yes Has compression in place as prescribed N/A Has offloadiing in place as prescribed Yes Experienced any changes in pain level or No management Left Footwear No Footwear Right Footwear Regular Shoe Pain Scale: 0-10 Numeric Is Patient Pain Free? Yes - Nurse 1 - General Ulcer Measurement Start: 12/10/21 08:43 Freq: Status: Active Protocol: Activity Type Activity Date Activity User E-sign Co-sign Detail Recorded Client Recorded Date Recorded By Document 12/10/21 08:43 MARSHALL [id number] 12/10/21 08:44 MARSHALL 12/10/21 08:43 Wound Center Nurse 1 #3 L Stump/Post op -Combined with other wound No -Current Size (cm) - Length 0.4 -Current Size (cm) - Width 0.9 -Current Size (cm) - Depth 1.1 -Total Square Cm 0.36 -Photo Taken Yes -Epithelialization None Present -Tunneling No -Undermining/Tunneling No -Circular Undermining No -Exudate Type Serosanguineous -Wound Margin Flat & Intact -Granulation Amt None Present (0 %) -Slough/Fibrin Yes -Necrosis Amt Large (67-100%) -Necrotic Tissue Type Adherent Slough -Structure Exposed N/A -Texture (Yudy-wound Skin Appearance) Assessed, Localized Edema -Moisture (Yudy-wound Skin Appearance) Assessed,Dry/ Scaly -Color (Yudy-wound Skin Appearance) Assessed -Temperature (Yudy-wound Skin No Abnormality Appearance) (Pt Warm) -Ulcer Cleansing Rinsed/ Irrigated with Saline -Foul Odor after Cleansing No -Anesthetic Used 5% Lidocaine Gel Lower Limb Edema Present NA - Nurse 2 - General Ulcer CM Notes Start: 12/10/21 08:43 Freq: Status: Active Protocol: Activity Type Activity Date Activity User E-sign Co-sign Detail Recorded Client Recorded Date Recorded By Document 12/10/21 08:47 MARSHALL [id number] 12/10/21 08:48 12/10/21 08:47 Wound Center Nurse 2 #3 L Stump/Post op -Time 08:47 -Correct Patient Yes -Correct Side, Site, Position Yes -Correct Procedure Yes -Procedure Performed Yes -Type of Procedure Debridement -Clinical Debridement Subcutaneous -Tissue Removed Subcutaneous -Post Debridement (cm) - Length 0.5 -Post Debridement (cm) - Width 1 -Post Debridement (cm) - Depth 1 -Total Square (Post) (cm) 0.5 -Area of Debridement (cm) - Length 0.5 -Area of Debridement (cm) - Width 1 -Total Square (Area) (cm) 0.5 -Tunneling No -Undermining/Tunneling No -Circular Undermining No -Wound/Ulcer Outcome Not Healed -Ulcer Cleansing Rinsed/ Irrigated with Saline -Foul Odor after Cleansing No -Bioengineered Tissue No -Bleeding Controlled with Pressure -Treatment Response Procedure Tolerated Well -Offloading No -Debridement - Subq, 1st 20sq cm Yes Pain Scale: 0-10 Numeric Is Patient Pain Free? Yes Assessment/Plan Assessment/Plan (1) Pressure ulcer of BKA stump, stage 4: CODE(S): T87.89 - Other complications of amputation stump; L89.894 - P ressure ulcer of other site, stage 4 (2) Diabetes mellitus with ulcer of lower extremity: CODE(S): E11.622 - Type 2 diabetes mellitus with other skin ulcer; L97.909 - Non-pressure chronic ulcer of unspecified part of unspecified lower leg with unspecified severity (3) Below-knee amputation of left lower extremity: CODE(S): S88.112A - Complete traumatic amputation at level between knee and ankle, left lower leg, initial encounter (4) Diabetes: CODE(S): E11.9 - Type 2 diabetes mellitus without complications (5) Smoker: CODE(S): F17.200 - Nicotine dependence, unspecified, uncomplicated PLAN: Plan The patient completed 10 applications of TheraSkin. Wound care - He has had 10 applications of Theraskin. Wound care is Aqucel-Ag covered by gauze daily. Stump certified nurses' aide for compression. He rarely wears his prosthesis due to his ulcer. Obtained a wound culture on 09/17/21 which was negative for bacterial growth. Wash the ulcer and yudy wound daily with the dressing change because this is helping with yudy wound excoriation, which has resolved. Wound culture from 07/09/21 positive for Staphylococcus aureus and Streptococcus agalactiae (B). He completed his Augmentin. Encouraged high protein diet to help with wound healing and low carb diet to help keep better control of blood sugars. He states he is hardly wearing his prosthesis unless it is absolutely necessary. He has seen Dr. Boston and will be scheduled for operative debridement. Encouraged patient to stop smoking as it may have deleterious effects on wound healing. Follow up 2 weeks. Follow-up sooner or report to the emergency department should new or concerning symptoms arise.
== END 2021-12-21 23:59 | disposition home or self-care (01) ==
LOC: WC 08:33
PROVIDERS: PCP Family Medicine; Visit Provider Nurse Practitioner Family
DX: E11.622 Type 2 diabetes mellitus with other skin ulcer (principal); T87.89 Other complications of amputation stump; L98.492 Non-pressure chronic ulcer of skin of other sites with fat layer exposed; F17.200 Nicotine dependence, unspecified, uncomplicated; Y83.5 Amputation of limb(s) as the cause of abnormal reaction of the patient, or of later complication, without mention of misadventure at the time of the procedure; Z86.19 Personal history of other infectious and parasitic diseases
CPT/HCPCS: 11042

== ENCOUNTER 2021-12-25 08:55 | Day surgery (SDC) | payer MEDICARE, MEDICAID, SELFPAY ==
--- NOTE | 2021-12-25 | PRES_PTH ---
PATIENT: RK MCCLURE LOC: [facility] [place] U#:[id number] AGE/SX: 66/M ROOM: RE12/25/[address]: Dr. Vinicio Boston MD : 1955 BED: DIS: 12/25/2021 SPEC #: [id number] RECD: 12/25/21 13:34 STATUS: JENNY RESmitha #: [id number] JUAN ALBERTO: 12/25/21 00:[address]: Vinicio Boston DEPT: SURGICAL PATHOLOGY RECD BY: Marti Garcia ENTERED: 12/26/21 07:44 SP TYPE: PRESS SORE OT DR: Dr. Clement Buckner MD Tissues: Ischium, NOS Procedures: Decalcification bone/plaque Surgery Specimen Level III HEADER OPERATION: Debridement below knee amputation wound PRE-OP DIAGNOSIS: Pressure ulcer of BKA stump, stage 4 TISSUE SUBMITTED: Left leg debridement below knee amputation wound MICROSCOPIC DIAGNOSIS Left leg debridement below knee amputation wound: Dense fibroconnective tissue with reactive changes and foreign body giant cell reaction. Pieces of bone with reactive changes. UYEN:ava 12/28/2021 MICROSCOPIC DESCRIPTION Slides are reviewed. GROSS DESCRIPTION Received in fixative is one container labeled with the patient's name and designated left leg below knee amputation debridement tissue and bone. The specimen consists of multiple fragments of bone that in aggregate measure 2 x 0.5 x 0.3 cm. The specimen is totally submitted in one cassette after decalcification. / UYEN:ava 12/26/2021 TC:5 CPT: 59534, 85522
[2021-12-25 09:35] LABS: Hematocrit 46.2 % (40-54); Hemoglobin 14.5 g/dL (13.0-16.5); Mean Corp Hgb Conc 31.4 g/dL (32-36); Mean Corpuscular Hgb 25.4 pg (27.0-32.0); Mean Corpuscular Volume 80.9 fL (80-94); Mean Platelet Vol. 11.6 fl (6.2-12.0); Platelet Count 226 K/mm3 (150-450); RBC Distribution Width CV 17.9 % (11.6-14.6); RBC Distribution Width SD 50.3 fl (35.1-43.9); Red Blood Count 5.71 M/mm3 (4.6-6.2); White Blood Count 10.2 K/mm3 (4.4-11.0)
[2021-12-25 09:36] VITALS: BP 143/78; PULSE 62; RESP 18; TEMP 36.6; O2SAT 96; BMI 27.7
[2021-12-25] MEDS: Lactated Ringers 1,000 ML 15 ML IV (09:44)
[2021-12-25 09:53] LABS: Anion Gap 7 (5-15); BUN 11 mg/dL (7-18); BUN/Creat Ratio 11.7 RATIO (10-20); Calcium,Total 9.1 mg/dL (8.5-10.1); Chloride 111 mmol/L (98-107); Creatinine, Serum 0.94 mg/dL (0.70-1.30); EST Glomerular Filtration Rate 85 mL/min (>60); Est Glom Filt Rate - Afr Amer 103 mL/min (>60); Estimated Creatinine Clearance 86.18 ml/min; Glucose 117 mg/dL (74-106); Potassium 3.9 mmol/L (3.5-5.1); Sodium Level 142 mmol/L (136-145)
--- NOTE | 2021-12-25 10:10 | HP.PCM_ITS ---
History and Physical Intake Visit Reasons:?consult Chief Complaint: wound on left below knee amputation Is patient in pain?: No Allergies colesevelam HCl [From WelChol] Allergy (Verified 12/06/21 09:51) Rashdicyclomine Allergy (Verified 12/06/21 09:51) Rashdivalproex sodium [From Depakote] Allergy (Verified 12/06/21 09:51) Unknownrofecoxib [From Vioxx] Allergy (Verified 12/06/21 09:51) Rashvancomycin Adverse Reaction (Verified 12/06/21 09:51) Rash Medications levothyroxine 75 mcg tablet 75 mcg PO DAILY thyroid 09/01/13 [History Confirmed 12/06/21] duloxetine 30 mg capsule,delayed release 30 mg PO DAILY Depression 07/07/19 [History Confirmed 12/06/21] rosuvastatin 20 mg tablet 20 mg PO DAILY Cholesterol 07/07/19 [History Confirmed 12/06/21] metoprolol tartrate 25 mg tablet 25 mg PO BID heart 11/23/19 [History Confirmed 12/06/21] gabapentin 800 mg tablet 800 mg PO TIDCM #30 tabs 04/19/20 [Rx Confirmed 12/06/21] nitroglycerin 0.4 mg sublingual tablet 0.4 mg sublingual Q5M PRN Chest Pain 11/02/20 [History Confirmed 12/06/21] acetaminophen 325 mg tablet (Tylenol) 650 mg PO Q6H PRN PRN Pain Score 1-10/Temp > 100.7 F #0 tabs 11/09/20 [Rx Confirmed 12/06/21] melatonin 5 mg tablet 5 mg PO QHS 11/20/20 [History Confirmed 12/06/21] omeprazole 40 mg capsule,delayed release 40 mg PO DAILY 01/15/21 [History Confirmed 12/06/21] aspirin 81 mg capsule 81 mg PO DAILY 04/30/21 [History Confirmed 12/06/21] metformin 500 mg tablet 500 mg PO BID 04/30/21 [History Confirmed 12/06/21] PFSH Medical History? Abscess of left foot Below-knee amputation of left lower extremity Benign essential hypertension CAD (coronary artery disease) Coronary artery disease Current smoker Diabetes Diabetes mellitus with ulcer of lower extremity High cholesterol History of below-knee amputation of left lower extremity History of gastroesophageal reflux (GERD) Homelessness Hypertension Hypothyroidism Infection of left below knee amputation Non-pressure ulcer of stump of below knee amputation of left lower extremity with fat layer exposed Personal history of Methicillin resistant Staphylococcus aureus infection Redness of the left leg and foot Smoker Type 2 diabetes mellitus Type 2 diabetes mellitus with foot ulcer Type 2 diabetes mellitus with foot ulcer Wound infection Surgical History? H/O cardiac catheterization History of coronary artery stent placement History of transmetatarsal amputation of left foot Hx of CABG S/P BKA (below knee amputation) Status post below-knee amputation of left lower extremity Family History? Mother DiabetesFather Cancer ?? ? History of Lung CA. Social History? housing:? homeless Smoking Status:? Current every day smoker tobacco type: cigarettes how long ago did patient quit smoking:? Patient with ongoing 1 ppd since [age] years old. alcohol intake:? never substance use type:? does not use HPI HPI HPI: RK MCCLURE, is a 66 M who presents to the office today for evaluation of left BKA chronic intermittent wound. Initial amputation in early 2020, had return to OR for hematoma. Ultimately healed but has had chronic wound that intermittently opens/drains purulence. Had been using prosthetic, had to stop due to wound. ROS General General: No weight change, appetite, fatigue, colon cancer, breast cancer or weakness HEENT HEENT: No difficulty swallowing, eye injury, eye surgery, swollen glands or hoarseness Endo Endocrine: Yes diabetes mellitus; No thyroid disease, thyroid cancer, Hair loss, heat intolerance or cold intoler ance Skin Skin: No rash or changing moles Musc Musculoskeletal: Yes arthritis; No back problems, rheumatoid arthritis, gout or joint pain Cardio Cardiovascular: Yes high blood pressure, heart attack and heart stent; No murmur, pacemaker, heart disease, atrial fibrillation, palpitations, shortness of breat with exertion or chest pain Psych Psychiatric: Yes anxiety; No depression or hearing voices Resp Respiratory: No shortness of breath, No sleep apnea, No cough, No COPD, No asthma, No emphysema and No wheezing Gastro Gastrointestinal: No abdominal pain, No nausea or vomiting, No diarrhea, No constipation, No blood in stool, Yes acid reflux, No hemorrhoids, No ulcers, No gallbladder problem and No black,tarry stools Chris Hematologic: No blood thinners, No blood disorders, No bleeding, No anemia and No blood clots Neuro Neurologic: No system reviewed and no additional complaints, except as documented, No as per HPI, No abnormal gait, No abnormal hearing, No abnormal movements, No abnormal speech, No behavioral changes, No burning sensations, No confusion, No convulsions, No disequilibrium, No dizziness, No localized weakness, No frequent falls, No headache(s), No lack of coordination, No loss of vision, No memory loss, Yes numbness, No other visual disturbances, No radicular pain, No restless legs, No sensory deficit, No syncope, No tingling, No tremor(s), No weakness and No other Exam Const General: cooperative, healthy appearing, comfortable, no acute distress and well developed Nutritional Appearance: well nourished Orientation: alert, awake and oriented x3 HENMT Head: normocephalic and atraumatic Ears: hearing grossly normal bilaterally Nose: external nose normal Eyes General: appearance normal, both eyes and all related structures EOM: EOM intact bilaterally Neck Neck: normal visual inspection, full ROM, no lymphadenopathy and trachea midline Thyroid: thyroid normal Lymphatic: no lymphadenopathy noted Resp Effort & Inspection: normal respiratory effort, able to speak in complete sentences, symmetric chest movement, no audible wheezes, not labored, no stridor and no use of accessory muscles Cardio Rate: regular rate Rhythm: regular rhythm Pulses: brachial pulses present, radial pulses present and popliteal pulses present Skin General: no rashes or lesions noted and no erythema Wounds: wounds noted (left bka wound ~5mm, fibrinous base, no purulence) Neuro Cranial Nerves: CN's II-XI intact bilaterally and EOM intact bilaterally Speech: speech normal Gait: normal gait Motor: strength 5/5 throughout Sensory Exam: no sensory deficits noted Extremities Pulses: Normal: Right Dorsalis Pedis Pulse and Right Posterior Tibial Pulse Lower Extremity Edema: None: Bilateral Psych Appearance: grossly normal and well kempt Mental Status: mental status grossly normal Mood: congruent mood Speech and Movement: speech and movement normal Thought Content: normal Judgment: judgment good Coding Level of Care Code Off vis,new,level 3 Diagnoses Pressure ulcer of BKA stump, stage 4? T87.89; L89.894 Assessment and Plan Assessment and Plan (1) Pressure ulcer of BKA stump, stage 4: ?Status:?Chronic ?Plan:-debride, bone biopsy if bone exposed
[2021-12-25 11:11] LABS: Bedside Glucose 113 mg/dL (74-106)
--- NOTE | 2021-12-25 11:18 | EX.PCM.DISCH ---
Discharge Instructions Diet Discharge Diet: No restrictions Activity Discharge Activity: Return to Normal Activity May shower in (days): 2 Weight Bearing Status: No weight bearing (left below knee amputation) Additional Activity Instructions:: if showering, avoid getting dressing wet Dressing / Incision Call your doctor if your incision/area has: Increased Pain/ Swelling, Increased Redness and Foul Smelling Discharge Call your doctor if you observe: Fever of 101 or Higher Remove Dressing in: do not remove dressing Additional Dressing/Incision Instructions:: dressing to be removed at Wound Care appointment Follow Up Care Test Results: Test results from this visit will be discussed in further detail at your follow-up appointment, if applicable. Discharge Plan Admission Attending Provider: Vinicio Boston Primary Care Provider: Clement Buckner Discharge Orders/Prescriptions Prescriptions: New oxycodone-acetaminophen [Percocet] 5-325 mg tablet 1 tab PO Q8H PRN (Reason: pain) 3 Days Qty: 14 0RF Continued levothyroxine 75 MCG tablet 75 mcg PO DAILY Label Comments: pt states has not taken anything in about 4 days. rosuvastatin 20 MG tablet 20 mg PO DAILY duloxetine 30 MG capsule,delayed release(DR/EC) 30 mg PO DAILY Label Comments: pt states has not taken anything in about 4 days. metoprolol tartrate 25 MG tablet 25 mg PO BID Label Comments: pt states has not taken anything in about 4 days. gabapentin 800 MG tablet 800 mg PO TIDCM Qty: 30 0RF nitroglycerin 0.4 mg tablet, sublingual 0.4 mg sublingual Q5M PRN (Reason: Chest Pain) Label Comments: PLACE 1 TABLET UNDER TONGUE EVERY 5 MINS, UP TO 3 DOSES NEEDED FOR CHEST PAIN acetaminophen [Tylenol] 325 mg Tablet 650 mg PO Q6H PRN PRN (Reason: Pain Score 1-10/Temp > 100.7 F) Qty: 0 0RF melatonin 5 mg Tablet 5 mg PO QHS omeprazole 40 mg Capsule,Delayed Release(Dr/Ec) 40 mg PO DAILY metformin 500 mg Tablet 500 mg PO BID aspirin 325 mg Tablet 325 mg PO DAILY valsartan 40 mg tablet 40 mg PO DAILY Label Comments: take 1 tablet by mouth once daily Other Ambulatory Orders: Basic Metabolic Profile (BMP) (Routine) Timeframe: 20211218 Facility: [facility] - Location: Laboratory Ordered By: Dr. Vinicio Boston CBC-Complete Blood Cnt No Diff (Routine) Timeframe: 20211218 Facility: [facility] - Location: Laboratory Ordered By: Dr. Vinicio Boston Referrals / Follow Up: Clement Buckner MD [Primary Care Provider] - Disposition Disposition (needs filled in before D/C Order can be placed): Home, Self Care
[2021-12-25 11:30] VITALS: BP 121/78; BP 143/78; PULSE 66; RESP 16; TEMP 36.4; O2SAT 95
[2021-12-25 11:45] VITALS: BP 123/78; BP 143/78; PULSE 57; RESP 16; O2SAT 97
[2021-12-25 12:00] VITALS: BP 118/77; BP 143/78; PULSE 63; RESP 18; TEMP 36.5; O2SAT 93
[2021-12-25 12:19] VITALS: BP 143/78
--- NOTE | 2021-12-26 13:04 | OP.PCM_ITS ---
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 Surgery/Procedure Performed:: Debridement left lower extremity amputation stump skin, subcutaneous tissue, fascia, bone Surgeon: Vinicio Boston Specimen's removed: Bone for culture and permanent pathology Estimated Blood Loss (mL): 5 Description of Procedure: HPI: Patient is 66-year-old male with previous left below-knee amputation proxy 1 year prior which had been fully healed and he was working with a prosthetic. He recently developed recurrent draining sinus for the distal aspect of the stump with intermittent purulent drainage and need for antibiotics. Taken out the operating room for debridement of the sinus and plans to biopsy the bone for evidence of osteomyelitis. Description of procedure: Upon obtaining form consent verification correct patient procedure site patient was taken the operating placed under anesthesia. He was then positioned prepped and draped in usual sterile fashion a timeout was performed. The draining sinus incised with blade extending approximately 2 cm in either direction. Sharp dissection used to dissect and debride the nonviable tissue and exudate. There is no obvious abscess or purulence but the sinus did track down to the tibia. The inferior aspect of the tibia was then debrided with a rongeur with portions taken for culture and for permanent pathology. Once all nonviable tissue had been debrided the wound was thoroughly irrigated with saline. Given that there is no obvious infection felt that axiofill placenta derived extracellular matrix was appropriate as was brought in the field and hydrated with saline and then placed in the bed of the wound. Adaptic followed by 4 x 4 and Kerlix was then placed dressing the patient is awake from anesthesia taken recovery room anticipated discharge home. Grafts/Implants Used: Axiofill
== END 2021-12-25 12:20 | disposition home or self-care (01) ==
LOC: SDC 09:02 → AC 09:03
PROVIDERS: PCP Family Medicine; Referring Provider Surgery Trauma Surgery; Visit Provider Surgery Trauma Surgery
PROC: (CPT 11044; principal; 2021-12-25 14:10)
DX: T87.89 Other complications of amputation stump (principal); L89.894 Pressure ulcer of other site, stage 4; E11.9 Type 2 diabetes mellitus without complications; Y83.5 Amputation of limb(s) as the cause of abnormal reaction of the patient, or of later complication, without mention of misadventure at the time of the procedure; I25.10 Atherosclerotic heart disease of native coronary artery without angina pectoris; I10 Essential (primary) hypertension; E78.00 Pure hypercholesterolemia, unspecified; E03.9 Hypothyroidism, unspecified; Z59.00 Homelessness unspecified; F17.210 Nicotine dependence, cigarettes, uncomplicated; Z79.82 Long term (current) use of aspirin; Z79.84 Long term (current) use of oral hypoglycemic drugs; Z79.890 Hormone replacement therapy; Z79.899 Other long term (current) drug therapy; Z95.1 Presence of aortocoronary bypass graft; Z95.5 Presence of coronary angioplasty implant and graft
CPT/HCPCS: 11044; 01392; 80048; 82962; 85027; 87070; 87075; 87077; 87186; 87205; 88304; 88305; 88311; J7120; J2405

== ENCOUNTER 2022-01-16 15:00 | Outpatient (RCR) | payer MEDICARE, MEDICAID, SELFPAY ==
[2021-12-22 01:12] VITALS: BP 154/83; PULSE 57; RESP 18; TEMP 35.6
[2021-12-31 08:51] VITALS: BP 151/63; PULSE 60; RESP 20; TEMP 36.3
--- NOTE | 2021-12-31 11:23 | PCM.WC.PN ---
History of Present Illness Date of Service: 12/31/21 Chief Complaint: Ulcer on left BKA after I&D of a diabetic abscess/hematoma on 11/06/20 History of Wound: Surgery on 11/06/20 - Surgical preparation left below knee amputation stump with incision and drainage and excisional debridement with partial ostectomy tibia for osteomyelitis and evacuation hematoma for draining diabetic ulcer abscess. (He had his Left BKA on 04/17/20). Operative tissue and bone cultures were negative. Wound cultures from 11/02/20 positive for MSSA, Enterobacter cloacae complex, and Corynebacterium amycolatum. Prealbumin 9.9 on 11/07/20. He was evaluated by Dr. Boston on 12/06/21 for an operative debridement and possible osteomyelitis. Surgery with Dr. Boston on 12/25/21 for Debridement left lower extremity amputation stump skin, subcutaneous tissue, fascia, bone. Bone culture 12/25/21 - Staphylococcus aureus. Pathology of bone showed dense fibroconnective tissue with reactive changes and foreign body giant cell reaction. Pieces of bone with reactive changes. Wound culture from 09/17/21 showed no growth. Wound culture from 07/09/21 positive for Staphylococcus aureus and Streptococcus agalactiae (B). He was started on Augmentin and a Probiotic. Xray obtained on 10/01/21 of his left BKA stump because of his non healing ulcer. The xray showed bony abnormalities along the lateral aspect of the amputation site of the proximal tibia. Consider further evaluation to exclude osteomyelitis. He obtained this xray at [facility]. MRI obtained 10/31/21, at [facility], of his left BKA which showed Bone edema with contrast enhancement of the tibia consistent with osteomyelitis. Small fluid collection at the distal aspect of the amputated tibia suggestive of small abscess. He has has completed ten applications of Theraskin which did help decrease his ulcer size. Wound care - He has had 10 applications of Theraskin. Aquacel-Ag covered with gauze daily. He is wearing a stump acid plant helper for compression. Today he denies any fever. He states his appetite is good. Objective Data Objective Data Vital Signs: Vital Signs Temp Pulse Resp BP 97.4 F L 60 20 H 151/63 H 12/31/21 08:51 12/31/21 08:51 12/31/21 08:51 12/31/21 08:51 Charges/Coding Visit Charges Office Visits / Consults: 10082 OV L3 Est Physical Exam Const alert and oriented x3 General Appearance: cooperative HEENT normocephalic Resp normal respiratory effort Cardio regular rate Extremity normal capillary refill General Extremity: Negative for edema Skin Wound Narrative: Left BKA stump ulcer has a pink base, unable to palpate bone. The ulcer is very tender to palpation since his operative debridement last week. Neuro oriented x3 and moves all extremities Psych affect normal Appearance: grossly normal Debridement Note Debridement Note No debridement was completed: No debridement was completed today Post-Debridement Measurements and Additional Note: Post-Debridement Measurements/Treatment FREDI - Nurse 1 - General Ulcer Assessment Start: 12/31/21 08:51 Freq: Status: Active Protocol: ARLETH Activity Type Activity Date Activity User E-sign Co-sign Detail Recorded Client Recorded Date Recorded By Document 12/31/21 08:51 DL [id number] 12/31/21 08:58 DL 12/31/21 08:51 WC - Today's Visit Information Type of service Follow-up Visit (Physician/[employer] ) Arrival Mode Wheelchair Transfer Assistance None Patient Identification Verified (Name & Yes ) Patient Requires Transmission-Based No Precautions Vital Signs Temperature (97.8 F-99.1 F) 97.4 F L Temperature Source Temporal Pulse Rate (60-100) 60 Pulse Location Monitor Respiratory Rate (12-18) 20 H Respiratory rate source Observation Blood Pressure (90/60-120/80) 151/63 H Blood Pressure Mean (mm Hg) 92 Source Monitor History Since Last Visit- (Skip if this is Patient's initial visit) Any new allergies or adverse reactions No Had a fall/change in ADL's that may No increase risk of falls Signs or symptoms of abuse and/or No neglect since last visit Have you been in the hospital since your Yes last visit? Has dressing in place as prescribed Yes Has compression in place as prescribed Yes Has offloadiing in place as prescribed Yes Experienced any changes in pain level or No management Pain Scale: 0-10 Numeric Is Patient Pain Free? Yes FREDI Torres Nurse 1 - General Ulcer Measurement Start: 12/31/21 08:51 Freq: Status: Active Protocol: Activity Type Activity Date Activity User E-sign Co-sign Detail Recorded Client Recorded Date Recorded By Document 12/31/21 08:51 DL [id number] 12/31/21 08:58 DL 12/31/21 08:51 Wound Center Nurse 1 #3 L Stump/Post op -Current Size (cm) - Length 1.1 -Current Size (cm) - Width 2.7 -Current Size (cm) - Depth 0.6 -Total Square Cm 2.97 -Photo Taken Yes -Exudate Amt Small -Exudate Type Serosanguineous -Wound Margin Thickened -Granulation Amt Medium (34-66%) -Granulation Quality Pale,[place] -Necrosis Amt Medium (34-66%) -Necrotic Tissue Type Adherent Slough -Structure Exposed N/A -Texture (Yudy-wound Skin Appearance) Scarring -Moisture (Yudy-wound Skin Appearance) No Abnormality -Color (Yudy-wound Skin Appearance) No Abnormality -Temperature (Yudy-wound Skin No Abnormality Appearance) (Pt Warm) -Tenderness on Palpation (Yudy-wound No Skin Appearance) -Ulcer Cleansing Soap and Water -Foul Odor after Cleansing No -Anesthetic Used 5% Lidocaine Gel WC - Nurse 2 - General Ulcer CM Notes Start: 12/31/21 08:51 Freq: Status: Active Protocol: Activity Type Activity Date Activity User E-sign Co-sign Detail Recorded Client Recorded Date Recorded By Document 12/31/21 09:21 [id number] 12/31/21 09:22 12/31/21 09:21 Wound Center Nurse 2 -Correct Patient No -Correct Side, Site, Position No -Correct Procedure No -Procedure Performed No -Wound/Ulcer Outcome Not Healed -Offloading No -Debridement - Subq, 1st 20sq cm No Pain Scale: 0-10 Numeric Is Patient Pain Free? Yes WC - Nurse 3 - General Ulcer D/C NN Start: 12/31/21 08:51 Freq: Status: Active Protocol: Activity Type Activity Date Activity User E-sign Co-sign Detail Recorded Client Recorded Date Recorded By Document 12/31/21 09:32 DL [id number] 12/31/21 09:35 DL 12/31/21 09:32 Wound Care Nurse 3 #3 L Stump/Post op -Ulcer Cleansing Rinsed/ Irrigated with Saline -Foul Odor after Cleansing No -Primary Dressing Applied Aquacel AG 4x4 -Primary Dressing Covered/Secured with Dry Gauze, Secured with Tape -Aquacel AG 4x4 1 Treatment Response Procedure Tolerated Well Pain Scale: 0-10 Numeric Is Patient Pain Free? Yes WC - Visit Discharge Discharge Condition Stable Ambulatory Status Wheelchair Transportation Private Auto Notes: Pt also referred to Dr. Almendarez. Assessment/Plan Assessment/Plan (1) Pressure ulcer of BKA stump, stage 4: CODE(S): T87.89 - Other complications of amputation stump; L89.894 - Pressure ulcer of other site, stage 4 (2) Diabetes mellitus with ulcer of lower extremity: CODE(S): E11.622 - Type 2 diabetes mellitus with other skin ulcer; L97.909 - Non-pressure chronic ulcer of unspecified part of unspecified lower leg with unspecified severity (3) Below-knee amputation of left lower extremity: CODE(S): S88.112A - Complete traumatic amputation at level between knee and ankle, left lower leg, initial encounter (4) Diabetes: CODE(S): E11.9 - Type 2 diabetes mellitus without complications (5) Smoker: CODE(S): F17.200 - Nicotine dependence, unspecified, uncomplicated PLAN: Plan Patient was evaluated at the wound center today. No debridement was performed since he had an operative debridement last week. The patient completed 10 applications of TheraSkin. Wound care - He has had 10 applications of Theraskin. Wound care is Aqucel-Ag covered by gauze daily. Stump acid plant helper for compression, if this is too uncomfortable since his debridement, then he should wear an AMIE wrap for compression. Bone culture 12/25/21 - Staphylococcus aureus. Pathology of bone showed dense fibroconnective tissue with reactive changes and foreign body giant cell reaction. Pieces of bone with reactive changes. I spoke with Dr. Boston and it was decided that we would refer the patient to Dr. Almendarez, ID for further evaluation and treatment. Obtained a wound culture on 09/17/21 which was negative for bacterial growth. Wash the ulcer and yudy wound daily with the dressing change because this is helping with yudy wound excoriation, which has resolved. Wound culture from 07/09/21 positive for Staphylococcus aureus and Streptococcus agalactiae (B). He completed his Augmentin. Encouraged high protein diet to help with wound healing and low carb diet to help keep better control of blood sugars. He states he is hardly wearing his prosthesis unless it is absolutely necessary and is not able to wear it since his debridement last week. Encouraged patient to stop smoking as it may have deleterious effects on wound healing. Follow up 2 weeks. Follow-up sooner or report to the emergency department should new or concerning symptoms arise.
[2022-01-16 14:42] VITALS: BP 159/81; PULSE 62; RESP 18; TEMP 35.7
--- NOTE | 2022-01-16 16:13 | PCM.WC.PN ---
History of Present Illness Date of Service: 01/16/22 Chief Complaint: Ulcer on left BKA after I&D of a diabetic abscess/hematoma on 11/06/20 History of Wound: Surgery on 11/06/20 - Surgical preparation left below knee amputation stump with incision and drainage and excisional debridement with partial ostectomy tibia for osteomyelitis and evacuation hematoma for draining diabetic ulcer abscess. (He had his Left BKA on 04/17/20). Operative tissue and bone cultures were negative. Wound cultures from 11/02/20 positive for MSSA, Enterobacter cloacae complex, and Corynebacterium amycolatum. Prealbumin 9.9 on 11/07/20. He was evaluated by Dr. Boston on 12/06/21 for an operative debridement and possible osteomyelitis. Surgery with Dr. Boston on 12/25/21 for Debridement left lower extremity amputation stump skin, subcutaneous tissue, fascia, bone. Bone culture 12/25/21 - Staphylococcus aureus. Pathology of bone showed dense fibroconnective tissue with reactive changes and foreign body giant cell reaction. Pieces of bone with reactive changes. Wound culture from 09/17/21 showed no growth. Wound culture from 07/09/21 positive for Staphylococcus aureus and Streptococcus agalactiae (B). He was started on Augmentin and a Probiotic. Xray obtained on 10/01/21 of his left BKA stump because of his non healing ulcer. The xray showed bony abnormalities along the lateral aspect of the amputation site of the proximal tibia. Consider further evaluation to exclude osteomyelitis. He obtained this xray at [facility]. MRI obtained 10/31/21, at [facility], of his left BKA which showed Bone edema with contrast enhancement of the tibia consistent with osteomyelitis. Small fluid collection at the distal aspect of the amputated tibia suggestive of small abscess. He has has completed ten applications of Theraskin which did help decrease his ulcer size. Wound care - He has had 10 applications of Theraskin. Aquacel-Ag covered with gauze daily. He is wearing a stump lawyer criminal for compression. Today he denies any fever. He states his appetite is good. Progress of Wound: Ulcer on left BKA stump is stable. There is a tunnel to bone around 12 o'clock. The wound bed is beefy pink in color. He is scheduled to see Dr. Almendarez, ID, today to discuss his bone culture from surgery. Objective Data Objective Data Vital Signs: Vital Signs Temp Pulse Resp BP 96.2 F L 62 18 159/81 H 01/16/22 14:42 01/16/22 14:42 01/16/22 14:42 01/16/22 14:42 Charges/Coding Procedures Integumentary 111xxx-113xx: [id number] Ria subq tissue 20 sq cm/< Debridement Note Debridement Note Wound debrided: BKA stump ulcer Laterality: Left Wound Grade/Stage: StageIV Type of Debridement: Excisional debridement Anesthesia Used: 5% Lidocaine Gel Depth: Down to and including healthy tissue, in the subcutaneous layer and to muscle Percentage of wound debrided: 100 Instrument Used: 3mm curette Tissue Removed: Devitalized tissue and slough into the muscle. Severity: Fat Layer Exposed Amount of bleeding with debridement: Mild Bleeding Controlled with: Compression and gauze Patient tolerated procedure: Patient tolerated procedure well Post-Debridement Measurements and Additional Note: Post-Debridement Measurements/Treatment - Nurse 1 - General Ulcer Assessment Start: 12/31/21 08:51 Freq: Status: Active Protocol: ARLETH Activity Type Activity Date Activity User E-sign Co-sign Detail Recorded Client Recorded Date Recorded By Document 12/31/21 08:51 DL [id number] 12/31/21 08:58 DL Document 01/16/22 14:42 DL [id number] 01/16/22 14:45 DL 12/31/21 01/16/22 08:51 14:42 - Today's Visit Information Type of service Follow-up Visit Follow-up Visit (Physician/MANAGER INVESTMENT (Physician/MANAGER INVESTMENT ) ) Arrival Mode Wheelchair Wheelchair Transfer Assistance None None Patient Identification Verified (Name & Yes Yes ) Patient Requires Transmission-Based No No Precautions Finger Stick Blood Sugar(mg/dl) (if 116 indicated): Blood Sugar Stated by Patient Vital Signs Temperature (97.8 F-99.1 F) 97.4 F L 96.2 F L Temperature Source Temporal Temporal Pulse Rate (60-100) 60 62 Pulse Location Monitor Monitor Respiratory Rate (12-18) 20 H 18 Respiratory rate source Observation Observation Blood Pressure (90/60-120/80) 151/63 H 159/81 H Blood Pressure Mean (mm Hg) 92 107 Source Monitor Monitor History Since Last Visit- (Skip if this is Patient's initial visit) Have you changed medications since your No last visit? Any new allergies or adverse reactions No No Had a fall/change in ADL's that may No No increase risk of falls Signs or symptoms of abuse and/or No No neglect since last visit Have you been in the hospital since your Yes No last visit? Has dressing in place as prescribed Yes Yes Has compression in place as prescribed Yes Yes Has offloadiing in place as prescribed Yes Yes Experienced any changes in pain level or No No management Pain Scale: 0-10 Numeric Is Patient Pain Free? Yes Yes WC - Nurse 1 - General Ulcer Measurement Start: 12/31/21 08:51 Freq: Status: Active Protocol: Activity Type Activity Date Activity User E-sign Co-sign Detail Recorded Client Recorded Date Recorded By Document 12/31/21 08:51 DL [id number] 12/31/21 08:58 DL Document 01/16/22 14:42 DL [id number] 01/16/22 14:45 DL 12/31/21 01/16/22 08:51 14:42 Wound Center Nurse 1 #3 L Stump/Post op -Current Size (cm) - Length 1.1 0.9 -Current Size (cm) - Width 2.7 2.4 -Current Size (cm) - Depth 0.6 1.2 -Total Square Cm 2.97 2.16 -Photo Taken Yes No -Exudate Amt Small Small -Exudate Type Serosanguineous Serosanguineous -Wound Margin Thickened Thickened & Rolled Under -Granulation Amt Medium (34-66%) Large (67-100%) -Granulation Quality Pale,[place] -Necrosis Amt Medium (34-66%) None Present (0 %) -Necrotic Tissue Type Adherent Slough -Structure Exposed N/A Bone -Texture (Yudy-wound Skin Appearance) Scarring Scarring -Moisture (Yudy-wound Skin Appearance) No Abnormality No Abnormality -Color (Yudy-wound Skin Appearance) No Abnormality No Abnormality -Temperature (Yudy-wound Skin No Abnormality No Abnormality Appearance) (Pt Warm) (Pt Warm) -Tenderness on Palpation (Yudy-wound No No Skin Appearance) -Ulcer Cleansing Soap and Water Rinsed/ Irrigated with Saline -Foul Odor after Cleansing No No -Anesthetic Used 5% Lidocaine Gel WC - Nurse 2 - General Ulcer CM Notes Start: 12/31/21 08:51 Freq: Status: Active Protocol: Activity Type Activity Date Activity User E-sign Co-sign Detail Recorded Client Recorded Date Recorded By Document 12/31/21 09:21 JF [id number] 12/31/21 09:22 JF Document 01/16/22 14:54 JF [id number] 01/16/22 14:55 JF Edit Result 01/16/22 14:54 JF (1) [id number] 01/16/22 14:59 JF (1) #3 L Stump/Post op - Clinical Debridement Subcutaneous => Muscle / Fascia - Tissue Removed Subcutaneous => Subcutaneous, => Muscle - Debridement - Subq, 1st 20sq cm Yes => No - Debridement - Muscle / Fascia, 1st => Yes 20sq cm 12/31/21 01/16/22 09:21 14:54 Wound Center Nurse 2 #3 L Stump/Post op -Time 14:54 -Correct Patient No Yes -Correct Side, Site, Position No Yes -Correct Procedure No Yes -Procedure Performed No Yes -Type of Procedure Debridement -Clinical Debridement Muscle / Fascia -Tissue Removed Subcutaneous, Muscle -Post Debridement (cm) - Length 1.2 -Post Debridement (cm) - Width 2.7 -Post Debridement (cm) - Depth 0.7 -Total Square (Post) (cm) 3.24 -Area of Debridement (cm) - Length 1.2 -Area of Debridement (cm) - Width 2.7 -Total Square (Area) (cm) 3.24 -Tunneling No -Undermining/Tunneling No -Circular Undermining No -Wound/Ulcer Outcome Not Healed Not Healed -Ulcer Cleansing Rinsed/ Irrigated with Saline -Foul Odor after Cleansing No -Bioengineered Tissue No -Bleeding Controlled with Pressure -Treatment Response Procedure Tolerated Well -Offloading No No -Debridement - Subq, 1st 20sq cm No No -Debridement - Muscle / Fascia, 1st Yes 20sq cm Pain Scale: 0-10 Numeric Is Patient Pain Free? Yes Yes WC - Nurse 3 - General Ulcer D/C NN Start: 12/31/21 08:51 Freq: Status: Active Protocol: Activity Type Activity Date Activity User E-sign Co-sign Detail Recorded Client Recorded Date Recorded By Document 12/31/21 09:32 DL [id number] 12/31/21 09:35 DL Document 01/16/22 14:56 JF [id number] 01/16/22 14:58 JF Edit Result 01/16/22 14:56 JF (1) [id number] 01/16/22 15:00 JF (1) #3 L Stump/Post op - Primary Dressing Applied Aquacel AG 4x4 => Aquacel AG 4x4, => Nugauze, Iodoform - Nugauze, Iodoform 1/4 => 1 12/31/21 01/16/22 09:32 14:56 Wound Care Nurse 3 #3 L Stump/Post op -Ulcer Cleansing Rinsed/ Rinsed/ Irrigated with Irrigated with Saline Saline -Foul Odor after Cleansing No No -Primary Dressing Applied Aquacel AG 4x4 Aquacel AG 4x4, Nugauze, Iodoform -Primary Dressing Covered/Secured with Dry Gauze, Dry Gauze, Secured with Secured with Tape Tape -Aquacel AG 4x4 1 1 -Nugauze, Iodoform 1/4 1 Left -Compression Wrap [place] Wrap Treatment Response Procedure Tolerated Well Pain Scale: 0-10 Numeric Is Patient Pain Free? Yes Yes WC - Visit Discharge Discharge Condition Stable Stable Ambulatory Status Wheelchair Wheelchair Transportation Private Auto Private Auto Medication Reconcilliation completed & Yes provided to patient/care provider Clinical Summary of Care Provided Yes Notes: Pt also referred to Dr. Almendarez. Assessment/Plan Assessment/Plan (1) Pressure ulcer of BKA stump, stage 4: CODE(S): T87.89 - Other complications of amputation stump; L89.894 - Pressure ulcer of other site, stage 4 (2) Diabetes mellitus with ulcer of lower extremity: CODE(S): E11.622 - Type 2 diabetes mellitus with other skin ulcer; L97.909 - Non-pressure chronic ulcer of unspecified part of unspecified lower leg with unspecified severity (3) Below-knee amputation of left lower extremity: CODE(S): S88.112A - Complete traumatic amputation at level between knee and ankle, left lower leg, initial encounter (4) Diabetes: CODE(S): E11.9 - Type 2 diabetes mellitus without complications (5) Smoker: CODE(S): F17.200 - Nicotine dependence, unspecified, uncomplicated PLAN: Plan Patient was evaluated at the wound center today. No debridement was performed since he had an operative debridement last week. The patient completed 10 applications of TheraSkin. Wound care - He has had 10 applications of Theraskin. Wound care is Iodoform gauze into the tunnel then topped with Aqucel-Ag covered by gauze daily. Stump lawyer criminal for compression, if this is too uncomfortable since his debridement, then he should wear an CHALINO wrap for compression. Bone culture 12/25/21 - Staphylococcus aureus. Pathology of bone showed dense fibroconnective tissue with reactive changes and foreign body giant cell reaction. Pieces of bone with reactive changes. I spoke with Dr. Boston and it was decided that we would refer the patient to Dr. Almendarez, ID for further evaluation and treatment, he sees Dr. Almendarez later today. Obtained a wound culture on 09/17/21 which was negative for bacterial growth. Wash the ulcer and yudy wound daily with the dressing change because this is helping with yudy wound excoriation, which has resolved. Wound culture from 07/09/21 positive for Staphylococcus aureus and Streptococcus agalactiae (B). He completed his Augmentin. Encouraged high protein diet to help with wound healing and low carb diet to help keep better control of blood sugars. He states he is hardly wearing his prosthesis unless it is absolutely necessary and is not able to wear it since his debridement last week. Encouraged patient to stop smoking as it may have deleterious effects on wound healing. Follow up 2 weeks. Follow-up sooner or report to the emergency department should new or concerning symptoms arise.
== END 2022-01-21 23:59 | disposition home or self-care (01) ==
LOC: WC 15:00
PROVIDERS: PCP Family Medicine; Visit Provider Nurse Practitioner Family
DX: T87.89 Other complications of amputation stump (principal); L89.894 Pressure ulcer of other site, stage 4; E11.622 Type 2 diabetes mellitus with other skin ulcer; F17.200 Nicotine dependence, unspecified, uncomplicated; Y83.5 Amputation of limb(s) as the cause of abnormal reaction of the patient, or of later complication, without mention of misadventure at the time of the procedure; Z86.19 Personal history of other infectious and parasitic diseases
CPT/HCPCS: 11042; 11043; 99213; G0463

== ENCOUNTER → 2022-01-21 | Outpatient (CLI) | payer MEDICARE, MEDICAID, SELFPAY ==
[2022-01-21 09:03] VITALS: BP 126/81; PULSE 76; RESP 18; TEMP 36.2; O2SAT 95; BMI 26.4
--- NOTE | 2022-01-21 10:01 | NURSING ---
Home care instructions given. Patient verbalized understanding. Patient to infusion by own WC, walked there by this RN.
[2022-01-21 10:04] VITALS: BP 144/68; PULSE 62; RESP 14; O2SAT 97; BMI 26.4
[2022-01-21] MEDS: Cefazolin 2 GM in 0.9% Normal Saline 100 ML IV (10:10)
== END | disposition home or self-care (01) ==
PROVIDERS: PCP Family Medicine; Referring Provider Internal Medicine Infectious Disease; Visit Provider Internal Medicine Infectious Disease
DX: M86.9 Osteomyelitis, unspecified (principal)
CPT/HCPCS: 96365; 36569; J7050; A4216

== ENCOUNTER 2022-02-18 09:45 | Outpatient (RCR) | payer MEDICARE, MEDICAID, SELFPAY ==
[2022-01-22 00:25] VITALS: BP 159/81; PULSE 62; RESP 18; TEMP 35.7
[2022-01-30 08:23] VITALS: BP 153/74; PULSE 55; RESP 18; TEMP 36.4
--- NOTE | 2022-01-30 09:51 | PN.PCM_ITS ---
History of Present Illness Date of Service: 01/30/22 Chief Complaint: Ulcer on left BKA after I&D of a diabetic abscess/hematoma on 11/06/20 History of Wound: Surgery on 11/06/20 - Surgical preparation left below knee amputation stump with incision and drainage and excisional debridement with partial ostectomy tibia for osteomyelitis and evacuation hematoma for draining diabetic ulcer abscess. (He had his Left BKA on 04/17/20). Operative tissue and bone cultures were negative. Wound cultures from 11/02/20 positive for MSSA, Enterobacter cloacae complex, and Corynebacterium amycolatum. Prealbumin 9.9 on 11/07/20. He was evaluated by Dr. Boston on 12/06/21 for an operative debridement and pos sible osteomyelitis. Surgery with Dr. Boston on 12/25/21 for Debridement left lower extremity amputation stump skin, subcutaneous tissue, fascia, bone. Bone culture 12/25/21 - Staphylococcus aureus. Pathology of bone showed dense fibroconnective tissue with reactive changes and foreign body giant cell reaction. Pieces of bone with reactive changes. Wound culture from 09/17/21 showed no growth. Wound culture from 07/09/21 positive for Staphylococcus aureus and Streptococcus agalactiae (B). He was started on Augmentin and a Probiotic. Xray obtained on 10/01/21 of his left BKA stump because of his non healing ulcer. The xray showed bony abnormalities along the lateral aspect of the amputation site of the proximal tibia. Consider further evaluation to exclude osteomyelitis. He obtained this xray at [facility]. MRI obtained 10/31/21, at [facility], of his left BKA which showed Bone edema with contrast enhancement of the tibia consistent with osteomyelitis. Small fluid collection at the distal aspect of the amputated tibia suggestive of small abscess. He has has completed ten applications of Theraskin which did help decrease his ulcer size. Wound care - He has had 10 applications of Theraskin. Aquacel-Ag covered with gauze daily. He is wearing a stump slurry plant operator for compression. Today he denies any fever. He states his appetite is good. Progress of Wound: Left BKA ulcer has some undermining to the bone from 9-3 o'clock. Objective Data Objective Data Vital Signs: Vital Signs Temp Pulse Resp BP 97.6 F L 55 L 18 153/74 H 01/30/22 08:23 01/30/22 08:23 01/30/22 08:23 01/30/22 08:23 Charges/Coding Procedures Integumentary 111xxx-113xx: 69444 Ria musc/fascia 20 sq cm/< Debridement Note Debridement Note Wound debrided: BKA stump ulcer Laterality: Left Wound Grade/Stage: StageIV Type of Debridement: Excisional debridement Anesthesia Used: 5% Lidocaine Gel Depth: Down to and including healthy tissue, in the subcutaneous layer and to muscle Percentage of wound debrided: 100 Instrument Used: 5mm curette Tissue Removed: Devitalized tissue and slough into the muscle. Severity: Fat Layer Exposed Amount of bleeding with debridement: Mild Bleeding Controlled with: Compression and gauze Patient tolerated procedure: Patient tolerated procedure well Post-Debridement Measurements and Additional Note: Post-Debridement Measurements/Treatment - Nurse 1 - General Ulcer Assessment Start: 01/30/22 08:23 Freq: Status: Active Protocol: ARLETH Activity Type Activity Date Activity User E-sign Co-sign Detail Recorded Client Recorded Date Recorded By Document 01/30/22 08:23 [id number] 01/30/22 08:25 01/30/22 08:23 WC - Today's Visit Information Type of service Follow-up Visit (Physician/FRONT DESK CLERK ) Arrival Mode Wheelchair Transfer Assistance None Patient Identification Verified (Name & Yes ) Patient Requires Transmission-Based No Precautions Vital Signs Temperature (97.8 F-99.1 F) 97.6 F L Temperature Source Temporal Pulse Rate (60-100) 55 L Pulse Location Monitor Respiratory Rate (12-18) 18 Respiratory rate source Observation Blood Pressure (90/60-120/80) 153/74 H Blood Pressure Mean (mm Hg) 100 Source Monitor Position Semi-Fowlers Blood Pressure Location Left Arm History Since Last Visit- (Skip if this is Patient's initial visit) Have you changed medications since your No last visit? Any new allergies or adverse reactions No Had a fall/change in ADL's that may No increase risk of falls Signs or symptoms of abuse and/or No neglect since last visit Have you been in the hospital since your No last visit? Has dressing in place as prescribed Yes Has compression in place as prescribed No Has offloadiing in place as prescribed No Experienced any changes in pain level or No management Pain Scale: 0-10 Numeric Is Patient Pain Free? Yes WC - Nurse 1 - General Ulcer Measurement Start: 01/30/22 08:23 Freq: Status: Active Protocol: Activity Type Activity Date Activity User E-sign Co-sign Detail Recorded Client Recorded Date Recorded By Document 01/30/22 08:23 RB [id number] 01/30/22 08:25 RB 01/30/22 08:23 Wound Center Nurse 1 #3 L Stump/Post op -Combined with other wound No -Current Size (cm) - Length 0.8 -Current Size (cm) - Width 2 -Current Size (cm) - Depth 0.5 -Total Square Cm 1.6 -Photo Taken Yes -Tunneling No -Undermining/Tunneling No -Circular Undermining No -Exudate Amt Medium -Exudate Type Serosanguineous -Wound Margin Thickened & Rolled Under -Granulation Amt Medium (34-66%) -Granulation Quality [place] -Slough/Fibrin Yes -Necrosis Amt Medium (34-66%) -Necrotic Tissue Type Adherent Slough -Structure Exposed N/A -Texture (Yudy-wound Skin Appearance) Assessed, Scarring -Moisture (Yudy-wound Skin Appearance) Assessed -Color (Yudy-wound Skin Appearance) Assessed -Tenderness on Palpation (Yudy-wound Yes Skin Appearance) -Ulcer Cleansing Rinsed/ Irrigated with Saline -Foul Odor after Cleansing No -Anesthetic Used 5% Lidocaine Gel - Nurse 2 - General Ulcer CM Notes Start: 01/30/22 08:23 Freq: Status: Active Protocol: Activity Type Activity Date Activity User E-sign Co-sign Detail Recorded Client Recorded Date Recorded By Document 01/30/22 08:57 [id number] 01/30/22 08:59 01/30/22 08:57 Wound Center Nurse 2 -Time 08:57 -Correct Patient Yes -Correct Side, Site, Position Yes -Correct Procedure Yes -Procedure Performed Yes -Type of Procedure Debridement -Clinical Debridement Muscle / Fascia -Tissue Removed Muscle -Post Debridement (cm) - Length 1.0 -Post Debridement (cm) - Width 2.3 -Post Debridement (cm) - Depth 0.9 -Total Square (Post) (cm) 2.30 -Area of Debridement (cm) - Length 1.0 -Area of Debridement (cm) - Width 2.3 -Total Square (Area) (cm) 2.30 -Tunneling No -Undermining/Tunneling Yes -Undermining/Tunneling Starts (O'clock 3 ) -Undermining/Tunneling Ends (O'clock) 9 -Maximum Distance (cm) 0.7 -Circular Undermining No -Wound/Ulcer Outcome Not Healed -Ulcer Cleansing Rinsed/ Irrigated with Saline -Foul Odor after Cleansing No -Bioengineered Tissue No -Bleeding Controlled with Pressure -Treatment Response Procedure Tolerated Well -Offloading No -Assistive Device(s) Wheelchair -Debridement - Muscle / Fascia, 1st Yes 20sq cm Pain Scale: 0-10 Numeric Is Patient Pain Free? Yes - Nurse 3 - General Ulcer D/C NN Start: 01/30/22 08:23 Freq: Status: Active Protocol: Activity Type Activity Date Activity User E-sign Co-sign Detail Recorded Client Recorded Date Recorded By Document 01/30/22 09:08 DL [id number] 01/30/22 09:09 DL 01/30/22 09:08 Wound Care Nurse 3 #3 L Stump/Post op -Ulcer Cleansing Rinsed/ Irrigated with Saline -Foul Odor after Cleansing No -Primary Dressing Applied Aquacel AG 4x4 -Primary Dressing Covered/Secured with Dry Gauze & Roll Gauze, Secured with Tape -Other Covering amie -Aquacel AG 4x4 1 Treatment Response Procedure Tolerated Well Pain Scale: 0-10 Numeric Is Patient Pain Free? Yes WC - Visit Discharge Discharge Condition Stable Ambulatory Status Wheelchair Transportation Private [facility] Facility Type Home Health Orders Sent Yes Assessment/Plan Assessment/Plan (1) Pressure ulcer of BKA stump, stage 4: CODE(S): T87.89 - Other complications of amputation stump; L89.894 - Pressure ulcer of other site, stage 4 (2) Diabetes mellitus with ulcer of lower extremity: CODE(S): E11.622 - Type 2 diabetes mellitus with other skin ulcer; L97.909 - Non-pressure chronic ulcer of unspecified part of unspecified lower leg with unspecified severity (3) Below-knee amputation of left lower extremity: CODE(S): S88.112A - Complete traumatic amputation at level between knee and ankle, left lower leg, initial encounter (4) Diabetes: CODE(S): E11.9 - Type 2 diabetes mellitus without complications (5) Smoker: CODE(S): F17.200 - Nicotine dependence, unspecified, uncomplicated PLAN: Plan Patient was evaluated at the wound center today. Wound care - He has completed 10 applications of Theraskin. Wound care is Aqu jack-Ag covered by gauze daily. Stump slurry plant operator for compression, if this is too uncomfortable since his debridement, then he should wear an AMIE wrap for compression. Since he has had another operative debridement, we will now apply for Epicord and Epifix for advanced wound healing to help with ulcer healing. Bone culture 12/25/21 - Staphylococcus aureus. Pathology of bone showed dense fibroconnective tissue with reactive changes and foreign body giant cell reaction. Pieces of bone with reactive changes. I spoke with Dr. Boston and it was decided that we would refer the patient to Dr. Almendarez, [place] for further evaluation and treatment, he is receiving IV antibiotics for 6 weeks, he currently has a PICC line. Obtained a wound culture on 09/17/21 which was negative for bacterial growth. Wash the ulcer and yudy wound daily with the dressing change because this is helping with yudy wound excoriation, which has resolved. Wound culture from 07/09/21 positive for Staphylococcus aureus and Streptococcus agalactiae (B). He completed his Augmentin. Encouraged high protein diet to help with wound healing and low carb diet to help keep better control of blood sugars. He states he is not wearing his prosthesis unless it is absolutely necessary and is not able to wear it since his debridement last week. Encouraged patient to stop smoking as it may have deleterious effects on wound healing. Follow up 2 weeks. Follow-up sooner or report to the emergency department should new or concerning symptoms arise.
[2022-02-06 08:54] VITALS: BP 131/80; PULSE 96; RESP 18; TEMP 36.5
--- NOTE | 2022-02-06 11:55 | PN.PCM_ITS ---
History of Present Illness Date of Service: 02/06/22 Chief Complaint: Ulcer on left BKA after I&D of a diabetic abscess/hematoma on 11/06/20 History of Wound: Surgery on 11/06/20 - Surgical preparation left below knee amputation stump with incision and drainage and excisional debridement with partial ostectomy tibia for osteomyelitis and evacuation hematoma for draining diabetic ulcer abscess. (He had his Left BKA on 04/17/20). Operative tissue and bone cultures were negative. Wound cultures from 11/02/20 positive for MSSA, Enterobacter cloacae complex, and Corynebacterium amycolatum. Prealbumin 9.9 on 11/07/20. He was evaluated by Dr. Boston on 12/06/21 for an operative debridement and pos sible osteomyelitis. Surgery with Dr. Boston on 12/25/21 for Debridement left lower extremity amputation stump skin, subcutaneous tissue, fascia, bone. Bone culture 12/25/21 - Staphylococcus aureus. Pathology of bone showed dense fibroconnective tissue with reactive changes and foreign body giant cell reaction. Pieces of bone with reactive changes. Wound culture from 09/17/21 showed no growth. Wound culture from 07/09/21 positive for Staphylococcus aureus and Streptococcus agalactiae (B). He was started on Augmentin and a Probiotic. Xray obtained on 10/01/21 of his left BKA stump because of his non healing ulcer. The xray showed bony abnormalities along the lateral aspect of the amputation site of the proximal tibia. Consider further evaluation to exclude osteomyelitis. He obtained this xray at [facility]. MRI obtained 10/31/21, at [facility], of his left BKA which showed Bone edema with contrast enhancement of the tibia consistent with osteomyelitis. Small fluid collection at the distal aspect of the amputated tibia suggestive of small abscess. He has has completed ten applications of Theraskin which did help decrease his ulcer size. Wound care - He has had 10 applications of Theraskin. Since he has had an operative debridement, he has qualified for Epifix. He is wearing a stump propeller driven airplane mechanic for compression. Today he denies any fever. He states his appetite is good. Progress of Wound: Left BKA ulcer has some undermining to the bone from 9-3 o'clock. The base of the ulcer is a nice beefy pink color. Objective Data Objective Data Vital Signs: Vital Signs Temp Pulse Resp BP 97.7 F L 96 18 131/80 H 02/06/22 08:54 02/06/22 08:54 02/06/22 08:54 02/06/22 08:54 Charges/Coding Procedures Integumentary 150xxx-152xx: [id number] Skin sub graft trnk/arm/leg Debridement Note Debridement Note Wound debrided: BKA stump ulcer Laterality: Left Wound Grade/Stage: StageIV Type of Debridement: Excisional debridement Anesthesia Used: 5% Lidocaine Gel Depth: Down to and including healthy tissue, in the subcutaneous layer and to muscle Percentage of wound debrided: 100 Instrument Used: 5mm curette Tissue Removed: Devitalized tissue and slough into the muscle. Severity: Fat Layer Exposed Amount of bleeding with debridement: Mild Bleeding Controlled with: Compression and gauze Patient tolerated procedure: Patient tolerated procedure well Debridement Free Text: There is some undermining from 9-3 o'clock with increased depth of the ulcer at 12 o'clock. Post-Debridement Measurements and Additional Note: Post-Debridement Measurements/Treatment - Nurse 1 - General Ulcer Assessment Start: 01/30/22 08:23 Freq: Status: Active Protocol: [email or web address].GENEVA Activity Type Activity Date Activity User E-sign Co-sign Detail Recorded Client Recorded Date Recorded By Document 01/30/22 08:23 RB [id number] 01/30/22 08:25 RB Document 02/06/22 08:54 DL [id number] 02/06/22 08:59 DL 01/30/22 02/06/22 08:23 08:54 - Today's Visit Information Type of service Follow-up Visit Follow-up Visit (Physician/FRENCH COMBER (Physician/FRENCH COMBER ) ) Arrival Mode Wheelchair Wheelchair Transfer Assistance None None Patient Identification Verified (Name & Yes Yes ) Patient Requires Transmission-Based No Precautions Vital Signs Temperature (97.8 F-99.1 F) 97.6 F L 97.7 F L Temperature Source Temporal Temporal Pulse Rate (60-100) 55 L 96 Pulse Location Monitor Monitor Respiratory Rate (12-18) 18 18 Respiratory rate source Observation Observation Blood Pressure (90/60-120/80) 153/74 H 131/80 H Blood Pressure Mean (mm Hg) 100 97 Source Monitor Monitor Position Semi-Fowlers Sitting Blood Pressure Location Left Arm Left Arm History Since Last Visit- (Skip if this is Patient's initial visit) Have you changed medications since your No No last visit? Any new allergies or adverse reactions No No Had a fall/change in ADL's that may No No increase risk of falls Signs or symptoms of abuse and/or No No neglect since last visit Have you been in the hospital since your No No last visit? Has dressing in place as prescribed Yes Yes Has compression in place as prescribed No Yes Has offloadiing in place as prescribed No No Experienced any changes in pain level or No No management Pain Scale: 0-10 Numeric Is Patient Pain Free? Yes Yes WC - Nurse 1 - General Ulcer Measurement Start: 01/30/22 08:23 Freq: Status: Active Protocol: Activity Type Activity Date Activity User E-sign Co-sign Detail Recorded Client Recorded Date Recorded By Document 01/30/22 08:23 RB [id number] 01/30/22 08:25 RB Document 02/06/22 08:54 DL [id number] 02/06/22 08:59 DL 01/30/22 02/06/22 08:23 08:54 Wound Center Nurse 1 #3 L Stump/Post op -Combined with other wound No No -Current Size (cm) - Length 0.8 0.9 -Current Size (cm) - Width 2 2.1 -Current Size (cm) - Depth 0.5 0.2 -Total Square Cm 1.6 1.89 -Photo Taken Yes Yes -Tunneling No No -Undermining/Tunneling No Yes -Undermining/Tunneling Starts (O'clock 10 ) -Undermining/Tunneling Ends (O'clock) 2 -Maximum Distance (cm) 0.9 -Circular Undermining No No -Exudate Amt Medium Medium -Exudate Type Serosanguineous Serosanguineous -Wound Margin Thickened & Thickened Rolled Under -Granulation Amt Medium (34-66%) Medium (34-66%) -Granulation Quality [place] -Slough/Fibrin Yes Yes -Necrosis Amt Medium (34-66%) Small (1-33%) -Necrotic Tissue Type Adherent Slough Adherent Slough -Structure Exposed N/A N/A -Texture (Yudy-wound Skin Appearance) Assessed, Assessed Scarring -Moisture (Yudy-wound Skin Appearance) Assessed Assessed -Color (Yudy-wound Skin Appearance) Assessed Assessed -Temperature (Yudy-wound Skin No Abnormality Appearance) (Pt Warm) -Tenderness on Palpation (Yudy-wound Yes No Skin Appearance) -Ulcer Cleansing Rinsed/ Wound Cleanser Irrigated with Saline -Foul Odor after Cleansing No No -Anesthetic Used 5% Lidocaine 5% Lidocaine Gel Gel WC - Nurse 2 - General Ulcer CM Notes Start: 01/30/22 08:23 Freq: Status: Active Protocol: Activity Type Activity Date Activity User E-sign Co-sign Detail Recorded Client Recorded Date Recorded By Document 01/30/22 08:57 [id number] 01/30/22 08:59 Document 02/06/22 09:22 [id number] 02/06/22 09:24 01/30/22 02/06/22 08:57 09:22 Wound Center Nurse 2 #3 L Stump/Post op -Time 08:57 09:22 -Correct Patient Yes Yes -Correct Side, Site, Position Yes Yes -Correct Procedure Yes Yes -Procedure Performed Yes Yes -Type of Procedure Debridement Debridement -Clinical Debridement Muscle / Fascia Subcutaneous -Tissue Removed Muscle Subcutaneous -Post Debridement (cm) - Length 1.0 1.0 -Post Debridement (cm) - Width 2.3 2.5 -Post Debridement (cm) - Depth 0.9 0.3 -Total Square (Post) (cm) 2.30 2.50 -Area of Debridement (cm) - Length 1.0 1.0 -Area of Debridement (cm) - Width 2.3 2.5 -Total Square (Area) (cm) 2.30 2.50 -Tunneling No No -Undermining/Tunneling Yes Yes -Undermining/Tunneling Starts (O'clock 3 7 ) -Undermining/Tunneling Ends (O'clock) 9 3 -Maximum Distance (cm) 0.7 1.2 -Circular Undermining No No -Wound/Ulcer Outcome Not Healed Not Healed -Ulcer Cleansing Rinsed/ Rinsed/ Irrigated with Irrigated with Saline Saline -Foul Odor after Cleansing No No -Bioengineered Tissue No Yes -Type of Bioengineered Tissue Epifix -Expiration Date 09/21/26 -Product Lot Number [id number] -Percent Used 100 -Lot number of Saline Used [id number] -Bleeding Controlled with Pressure Pressure -Treatment Response Procedure Procedure Tolerated Well Tolerated Well -Offloading No No -Assistive Device(s) Wheelchair -Debridement - Subq, 1st 20sq cm No -Debridement - Muscle / Fascia, 1st Yes 20sq cm -Apply Skin Sub - 1st 25 sq cm - Legs 1 -Epifix (per sq cm) 4 Pain Scale: 0-10 Numeric Is Patient Pain Free? Yes Yes - Nurse 3 - General Ulcer D/C NN Start: 01/30/22 08:23 Freq: Status: Active Protocol: Activity Type Activity Date Activity User E-sign Co-sign Detail Recorded Client Recorded Date Recorded By Document 01/30/22 09:08 DL [id number] 01/30/22 09:09 DL Document 02/06/22 09:35 RB [id number] 02/06/22 09:35 RB 01/30/22 02/06/22 09:08 09:35 Wound Care Nurse 3 #3 L Stump/Post op -Ulcer Cleansing Rinsed/ Irrigated with Saline -Foul Odor after Cleansing No -Primary Dressing Applied Aquacel AG 4x4 Mepilex Border -Other Dressing philip -Primary Dressing Covered/Secured with Dry Gauze & Dry Gauze Roll Gauze, Secured with Tape -Other Covering philip -Aquacel AG 4x4 1 -Mepilex Border 1 Treatment Response Procedure Procedure Tolerated Well Tolerated Well Pain Scale: 0-10 Numeric Is Patient Pain Free? Yes Yes - Visit Discharge Discharge Condition Stable Stable Ambulatory Status Wheelchair Wheelchair Transportation Private Auto Private Auto Medication Reconcilliation completed & No provided to patient/care provider Clinical Summary of Care Provided Yes Facility Type Home Health Orders Sent Yes Assessment/Plan Assessment/Plan (1) Pressure ulcer of BKA stump, stage 4: CODE(S): T87.89 - Other complications of amputation stump; L89.894 - Pressure ulcer of other site, stage 4 (2) Diabetes mellitus with ulcer of lower extremity: CODE(S): E11.622 - Type 2 diabetes mellitus with other skin ulcer; L97.909 - Non-pressure chronic ulcer of unspecified part of unspecified lower leg with unspecified severity (3) Below-knee amputation of left lower extremity: CODE(S): S88.112A - Complete traumatic amputation at level between knee and ankle, left lower leg, initial encounter (4) Diabetes: CODE(S): E11.9 - Type 2 diabetes mellitus without complications (5) Smoker: CODE(S): F17.200 - Nicotine dependence, unspecified, uncomplicated PLAN: Plan Patient was evaluated at the wound center today. Wound care - He has completed 10 applications of Theraskin. He has been approved for Epifix. Epifix #1 placed today. 2x[address] on the ulcer and packed into the deeper aspect of the ulcer at 12 o'clock. 100% of the product was used. Covered with wound veil and secured with steri-strips and topped with Mepilex dressing. He is not to get the ulcer wet. He may change the outer dressing above the wound veil as needed. Stump propeller driven airplane mechanic for compression. Bone culture 12/25/21 - Staphylococcus aureus. Pathology of bone showed dense fibroconnective tissue with reactive changes and foreign body giant cell reaction. Pieces of bone with reactive changes. I spoke with Dr. Boston and it was decided that we would refer the patient to Dr. Almendarez, ID for further evaluation and treatment, he is receiving IV antibiotic, Cefazolin, for 6 weeks, he currently has a PICC line. Obtained a wound culture on 09/17/21 which was negative for bacterial growth. Wash the ulcer and yudy wound daily with the dressing change because this is helping with yudy wound excoriation, which has resolved. Wound culture from 07/09/21 positive for Staphylococcus aureus and Streptococcus agalactiae (B). He completed his Augmentin. Encouraged high protein diet to help with wound healing and low carb diet to help keep better control of blood sugars. He states he is not wearing his prosthesis unless it is absolutely necessary and is not able to wear it since his debridement last week. Encouraged patient to stop smoking as it may have deleterious effects on wound healing. Follow up 1 week. Follow-up sooner or report to the emergency department should new or concerning symptoms arise.
[2022-02-11 10:03] VITALS: BP 147/80; PULSE 72; TEMP 35.3
--- NOTE | 2022-02-11 13:11 | PCM.WC.PN ---
History of Present Illness Date of Service: 02/11/22 Chief Complaint: Ulcer on left BKA after I&D of a diabetic abscess/hematoma on 11/06/20 History of Wound: Surgery on 11/06/20 - Surgical preparation left below knee amputation stump with incision and drainage and excisional debridement with partial ostectomy tibia for osteomyelitis and evacuation hematoma for draining diabetic ulcer abscess. (He had his Left BKA on 04/17/20). Operative tissue and bone cultures were negative. Wound cultures from 11/02/20 positive for MSSA, Enterobacter cloacae complex, and Corynebacterium amycolatum. Prealbumin 9.9 on 11/07/20. He was evaluated by Dr. Boston on 12/06/21 for an operative debridement and possible osteomyelitis. Surgery with Dr. Boston on 12/25/21 for Debridement left lower extremity amputation stump skin, subcutaneous tissue, fascia, bone. Bone culture 12/25/21 - Staphylococcus aureus. Pathology of bone showed dense fibroconnective tissue with reactive changes and foreign body giant cell reaction. Pieces of bone with reactive changes. Wound culture from 09/17/21 showed no growth. Wound culture from 07/09/21 positive for Staphylococcus aureus and Streptococcus agalactiae (B). He was started on Augmentin and a Probiotic. Xray obtained on 10/01/21 of his left BKA stump because of his non healing ulcer. The xray showed bony abnormalities along the lateral aspect of the amputation site of the proximal tibia. Consider further evaluation to exclude osteomyelitis. He obtained this xray at [facility]. MRI obtained 10/31/21, at [facility], of his left BKA which showed Bone edema with contrast enhancement of the tibia consistent with osteomyelitis. Small fluid collection at the distal aspect of the amputated tibia suggestive of small abscess. He has has completed ten applications of Theraskin which did help decrease his ulcer size. Wound care - He has had 10 applications of Theraskin. Since he has had an operative debridement, he has qualified for Epifix, #2 applied today. He is wearing a stump demographic analyst for compression. Today he denies any fever. He states his appetite is good. Progress of Wound: Left BKA ulcer has some undermining to the bone from 9-3 o'clock, which has improved from last week. The base of the ulcer is a nice beefy pink color. Objective Data Objective Data Vital Signs: Vital Signs Temp Pulse Resp BP 95.6 F L 72 18 147/80 H 02/11/22 10:03 02/11/22 10:03 02/06/22 08:54 02/11/22 10:03 Charges/Coding Procedures Integumentary 150xxx-152xx: 77126 Skin sub graft trnk/arm/leg Debridement Note Debridement Note Wound debrided: BKA stump ulcer Laterality: Left Wound Grade/Stage: StageIV Type of Debridement: Excisional debridement Anesthesia Used: 5% Lidocaine Gel Depth: Down to and including healthy tissue, in the subcutaneous layer and to muscle Percentage of wound debrided: 100 Instrument Used: 5mm curette Tissue Removed: Devitalized tissue and slough into the muscle. Severity: Fat Layer Exposed Amount of bleeding with debridement: Mild Bleeding Controlled with: Compression and gauze Patient tolerated procedure: Patient tolerated procedure well Debridement Free Text: There is some undermining from 9-3 o'clock. Post-Debridement Measurements and Additional Note: Post-Debridement Measurements/Treatment - Nurse 1 - General Ulcer Assessment Start: 01/30/22 08:23 Freq: Status: Active Protocol: FREDI.GENEVA Activity Type Activity Date Activity User E-sign Co-sign Detail Recorded Client Recorded Date Recorded By Document 01/30/22 08:23 RB [id number] 01/30/22 08:25 RB Document 02/06/22 08:54 DL [id number] 02/06/22 08:59 DL Document 02/11/22 10:03 AK [id number] 02/11/22 10:08 AK 01/30/22 02/06/22 02/11/22 08:23 08:54 10:03 - Today's Visit Information Type of service Follow-up Visit Follow-up Visit Follow-up Visit (Physician/ELECTRIC MOTOR MECHANIC (Physician/ELECTRIC MOTOR MECHANIC (Physician/ELECTRIC MOTOR MECHANIC ) ) ) Arrival Mode Wheelchair Wheelchair Wheelchair Transfer Assistance None None Patient Identification Verified (Name & Yes Yes Yes ) Patient Requires Transmission-Based No No Precautions Safety Precautions NA Vital Signs Temperature (97.8 F-99.1 F) 97.6 F L 97.7 F L 95.6 F L Temperature Source Temporal Temporal Temporal Pulse Rate (60-100) 55 L 96 72 Pulse Location Monitor Monitor Monitor Respiratory Rate (12-18) 18 18 Respiratory rate source Observation Observation Blood Pressure (90/60-120/80) 153/74 H 131/80 H 147/80 H Blood Pressure Mean (mm Hg) 100 97 102 Source Monitor Monitor Monitor Position Semi-Fowlers Sitting Blood Pressure Location Left Arm Left Arm History Since Last Visit- (Skip if this is Patient's initial visit) Have you changed medications since your No No No last visit? Any new allergies or adverse reactions No No No Had a fall/change in ADL's that may No No No increase risk of falls Signs or symptoms of abuse and/or No No No neglect since last visit Have you been in the hospital since your No No No last visit? Has dressing in place as prescribed Yes Yes Yes Has compression in place as prescribed No Yes N/A Has offloadiing in place as prescribed No No N/A Experienced any changes in pain level or No No No management Left Footwear Regular Shoe Right Footwear No Footwear Pain Scale: 0-10 Numeric Is Patient Pain Free? Yes Yes Yes WC - Nurse 1 - General Ulcer Measurement Start: 01/30/22 08:23 Freq: Status: Active Protocol: Activity Type Activity Date Activity User E-sign Co-sign Detail Recorded Client Recorded Date Recorded By Document 01/30/22 08:23 RB [id number] 01/30/22 08:25 RB Document 02/06/22 08:54 DL [id number] 02/06/22 08:59 DL Document 02/11/22 10:03 WA [id number] 02/11/22 10:08 AK 01/30/22 02/06/22 02/11/22 08:23 08:54 10:03 Wound Center Nurse 1 #3 L Stump/Post op -Combined with other wound No No No -Current Size (cm) - Length 0.8 0.9 0.7 -Current Size (cm) - Width 2 2.1 1.8 -Current Size (cm) - Depth 0.5 0.2 0.4 -Total Square Cm 1.6 1.89 1.26 -Photo Taken Yes Yes Yes -Tunneling No No No -Undermining/Tunneling No Yes Yes -Undermining/Tunneling Starts (O'clock 10 11 ) -Undermining/Tunneling Ends (O'clock) 2 1 -Maximum Distance (cm) 0.9 0.8 -Circular Undermining No No No -Change in Wound Grade/Stage No -Exudate Amt Medium Medium Medium -Exudate Type Serosanguineous Serosanguineous Serosanguineous -Wound Margin Thickened & Thickened Distinct, Rolled Under Outline Attached -Granulation Amt Medium (34-66%) Medium (34-66%) Medium (34-66%) -Granulation Quality [place] -Slough/Fibrin Yes Yes Yes -Necrosis Amt Medium (34-66%) Small (1-33%) Small (1-33%) -Necrotic Tissue Type Adherent Slough Adherent Slough Adherent Slough -Structure Exposed N/A N/A N/A -Texture (Yudy-wound Skin Appearance) Assessed, Assessed No Abnormality, Scarring Assessed -Moisture (Yudy-wound Skin Appearance) Assessed Assessed No Abnormality, Assessed -Color (Yudy-wound Skin Appearance) Assessed Assessed No Abnormality, Assessed -Temperature (Yudy-wound Skin No Abnormality No Abnormality Appearance) (Pt Warm) (Pt Warm) -Tenderness on Palpation (Yudy-wound Yes No No Skin Appearance) -Ulcer Cleansing Rinsed/ Wound Cleanser Soap and Water Irrigated with Saline -Foul Odor after Cleansing No No No -Anesthetic Used 5% Lidocaine 5% Lidocaine 4% Lidocaine Gel Gel Solution WC - Nurse 2 - General Ulcer CM Notes Start: 01/30/22 08:23 Freq: Status: Active Protocol: Activity Type Activity Date Activity User E-sign Co-sign Detail Recorded Client Recorded Date Recorded By Document 01/30/22 08:57 [id number] 01/30/22 08:59 Document 02/06/22 09:22 [id number] 02/06/22 09:24 Document 02/11/22 10:46 [id number] 02/11/22 10:50 01/30/22 02/06/22 02/11/22 08:57 09:22 10:46 Wound Center Nurse 2 #3 L Stump/Post op -Time 08:57 09:22 10:48 -Correct Patient Yes Yes Yes -Correct Side, Site, Position Yes Yes Yes -Correct Procedure Yes Yes Yes -Procedure Performed Yes Yes Yes -Type of Procedure Debridement Debridement Debridement -Clinical Debridement Muscle / Fascia Subcutaneous Subcutaneous -Tissue Removed Muscle Subcutaneous Subcutaneous -Post Debridement (cm) - Length 1.0 1.0 1 -Post Debridement (cm) - Width 2.3 2.5 2 -Post Debridement (cm) - Depth 0.9 0.3 0.2 -Total Square (Post) (cm) 2.30 2.50 2 -Area of Debridement (cm) - Length 1.0 1.0 1 -Area of Debridement (cm) - Width 2.3 2.5 2 -Total Square (Area) (cm) 2.30 2.50 2 -Tunneling No No No -Undermining/Tunneling Yes Yes Yes -Undermining/Tunneling Starts (O'clock 3 7 9 ) -Undermining/Tunneling Ends (O'clock) 9 3 12 -Maximum Distance (cm) 0.7 1.2 0.6 -Circular Undermining No No No -Wound/Ulcer Outcome Not Healed Not Healed Not Healed -Ulcer Cleansing Rinsed/ Rinsed/ Rinsed/ Irrigated with Irrigated with Irrigated with Saline Saline Saline -Foul Odor after Cleansing No No No -Bioengineered Tissue No Yes Yes -Type of Bioengineered Tissue Epifix Epifix -Expiration Date 09/21/26 09/21/26 -Product Lot Number [id number] -Percent Used 100 100 -Lot number of Saline Used [id number] -Bleeding Controlled with Pressure Pressure Pressure -Treatment Response Procedure Procedure Procedure Tolerated Well Tolerated Well Tolerated Well -Offloading No No No -Assistive Device(s) Wheelchair Wheelchair -Debridement - Subq, 1st 20sq cm No No -Debridement - Muscle / Fascia, 1st Yes 20sq cm -Apply Skin Sub - 1st 25 sq cm - Legs 1 1 -Epifix (per sq cm) 4 4 Pain Scale: 0-10 Numeric Is Patient Pain Free? Yes Yes Yes WC - Nurse 3 - General Ulcer D/C NN Start: 01/30/22 08:23 Freq: Status: Active Protocol: Activity Type Activity Date Activity User E-sign Co-sign Detail Recorded Client Recorded Date Recorded By Document 01/30/22 09:08 DL [id number] 01/30/22 09:09 DL Document 02/06/22 09:35 RB [id number] 02/06/22 09:35 RB Document 02/11/22 10:55 [facility] [id number] 02/11/22 10:56 BMF 01/30/22 02/06/22 02/11/22 09:08 09:35 10:55 Wound Care Nurse 3 #3 L Stump/Post op -Ulcer Cleansing Rinsed/ Irrigated with Saline -Foul Odor after Cleansing No -Primary Dressing Applied Aquacel AG 4x4 Mepilex Border Mepilex Border -Other Dressing chalino EPIFIX -Primary Dressing Covered/Secured with Dry Gauze & Dry Gauze Roll Gauze, Secured with Tape -Other Covering chalino DRSG PER [employer] -Aquacel AG 4x4 1 -Mepilex Border 1 1 Left -Compression Wrap Chalino Wrap -Other APPLIED PER [employer] Treatment Response Procedure Procedure Procedure Tolerated Well Tolerated Well Tolerated Well Pain Scale: 0-10 Numeric Is Patient Pain Free? Yes Yes Yes WC - Visit Discharge Discharge Condition Stable Stable Stable Ambulatory Status Wheelchair Wheelchair Wheelchair Transportation Private Auto Private Auto Medication Reconcilliation completed & No provided to patient/care provider Clinical Summary of Care Provided Yes Facility Type Home Health Orders Sent Yes Assessment/Plan Assessment/Plan (1) Pressure ulcer of BKA stump, stage 4: CODE(S): T87.89 - Other complications of amputation stump; L89.894 - Pressure ulcer of other site, stage 4 (2) Diabetes mellitus with ulcer of lower extremity: CODE(S): E11.622 - Type 2 diabetes mellitus with other skin ulcer; L97.909 - Non-pressure chronic ulcer of unspecified part of unspecified lower leg with unspecified severity (3) Below-knee amputation of left lower extremity: CODE(S): S88.112A - Complete traumatic amputation at level between knee and ankle, left lower leg, initial encounter (4) Diabetes: CODE(S): E11.9 - Type 2 diabetes mellitus without complications (5) Smoker: CODE(S): F17.200 - Nicotine dependence, unspecified, uncomplicated PLAN: Plan Patient was evaluated at the wound center today. Wound care - He has completed 10 applications of Theraskin. He has been approved for Epifix. Epifix #2 placed today. 2x[address] on the ulcer and packed into the deeper aspect of the ulcer at 12 o'clock. 100% of the product was used. Covered with wound veil and secured with steri-strips and skin prep and topped with Mepilex dressing. He is not to get the ulcer wet. He may change the outer dressing above the wound veil as needed. Compression - CHALINO wrap covered with stump demographic analyst. Bone culture 12/25/21 - Staphylococcus aureus. Pathology of bone showed dense fibroconnective tissue with reactive changes and foreign body giant cell reaction. Pieces of bone with reactive changes. I spoke with Dr. Boston and it was decided that we would refer the patient to Dr. Almendarez, ID for further evaluation and treatment, he is receiving IV antibiotic, Cefazolin, for 6 weeks, he currently has a PICC line. Obtained a wound culture on 09/17/21 which was negative for bacterial growth. Wash the ulcer and yudy wound daily with the dressing change because this is helping with yudy wound excoriation, which has resolved. Wound culture from 07/09/21 positive for Staphylococcus aureus and Streptococcus agalactiae (B). He completed his Augmentin. Encouraged high protein diet to help with wound healing and low carb diet to help keep better control of blood sugars. He states he is not wearing his prosthesis unless it is absolutely necessary and is not able to wear it since his debridement last week. Encouraged patient to stop smoking as it may have deleterious effects on wound healing. Follow up 1 week. Follow-up sooner or report to the emergency department should new or concerning symptoms arise.
[2022-02-18 09:47] VITALS: BP 166/83; PULSE 63; TEMP 35.7
--- NOTE | 2022-02-18 11:13 | PN.PCM_ITS ---
History of Present Illness Date of Service: 02/18/22 Chief Complaint: Ulcer on left BKA after I&D of a diabetic abscess/hematoma on 11/06/20 History of Wound: Surgery on 11/06/20 - Surgical preparation left below knee amputation stump with incision and drainage and excisional debridement with partial ostectomy tibia for osteomyelitis and evacuation hematoma for draining diabetic ulcer abscess. (He had his Left BKA on 04/17/20). Operative tissue and bone cultures were negative. Wound cultures from 11/02/20 positive for MSSA, Enterobacter cloacae complex, and Corynebacterium amycolatum. Prealbumin 9.9 on 11/07/20. He was evaluated by Dr. Boston on 12/06/21 for an operative debridement and pos sible osteomyelitis. Surgery with Dr. Boston on 12/25/21 for Debridement left lower extremity amputation stump skin, subcutaneous tissue, fascia, bone. Bone culture 12/25/21 - Staphylococcus aureus. Pathology of bone showed dense fibroconnective tissue with reactive changes and foreign body giant cell reaction. Pieces of bone with reactive changes. Wound culture from 09/17/21 showed no growth. Wound culture from 07/09/21 positive for Staphylococcus aureus and Streptococcus agalactiae (B). He was started on Augmentin and a Probiotic. Xray obtained on 10/01/21 of his left BKA stump because of his non healing ulcer. The xray showed bony abnormalities along the lateral aspect of the amputation site of the proximal tibia. Consider further evaluation to exclude osteomyelitis. He obtained this xray at [facility]. MRI obtained 10/31/21, at [facility], of his left BKA which showed Bone edema with contrast enhancement of the tibia consistent with osteomyelitis. Small fluid collection at the distal aspect of the amputated tibia suggestive of small abscess. He has has completed ten applications of Theraskin which did help decrease his ulcer size. Wound care - He has had 10 applications of Theraskin. Since he has had an operative debridement, he has qualified for Epifix, #3 applied today. He is wearing a stump automotive engineering teacher for compression. Today he denies any fever. He states his appetite is good. Progress of Wound: Left BKA ulcer has some undermining from 9-3 o'clock, which has improved from last week. The bone is no longer exposed. The base of the ulcer is a nice beefy pink color. Objective Data Objective Data Vital Signs: Vital Signs Temp Pulse Resp BP 96.3 F L 63 18 166/83 H 02/18/22 09:47 02/18/22 09:47 02/06/22 08:54 02/18/22 09:47 Charges/Coding Procedures Integumentary 150xxx-152xx: 47033 Skin sub graft trnk/arm/leg Debridement Note Debridement Note Wound debrided: BKA stump ulcer Laterality: Left Wound Grade/Stage: StageIV Type of Debridement: Excisional debridement Anesthesia Used: 5% Lidocaine Gel Depth: Down to and including healthy tissue, in the subcutaneous layer and to muscle Percentage of wound debrided: 100 Instrument Used: 5mm curette Tissue Removed: Devitalized tissue and slough into the muscle. Severity: Fat Layer Exposed Amount of bleeding with debridement: Mild Bleeding Controlled with: Compression and gauze Patient tolerated procedure: Patient tolerated procedure well Debridement Free Text: There is some undermining from 9-3 o'clock. Post-Debridement Measurements and Additional Note: Post-Debridement Measurements/Treatment - Nurse 1 - General Ulcer Assessment Start: 01/30/22 08:23 Freq: Status: Active Protocol: ARLETH Activity Type Activity Date Activity User E-sign Co-sign Detail Recorded Client Recorded Date Recorded By Document 01/30/22 08:23 RB [id number] 01/30/22 08:25 RB Document 02/06/22 08:54 DL [id number] 02/06/22 08:59 DL Document 02/11/22 10:03 AK [id number] 02/11/22 10:08 AK Document 02/18/22 09:47 AK [id number] 02/18/22 09:49 AK 01/30/22 02/06/22 02/11/22 08:23 08:54 10:03 - Today's Visit Information Type of service Follow-up Visit Follow-up Visit Follow-up Visit (Physician/TRANSPORTATION INSPECTOR (Physician/TRANSPORTATION INSPECTOR (Physician/TRANSPORTATION INSPECTOR ) ) ) Arrival Mode Wheelchair Wheelchair Wheelchair Transfer Assistance None None Patient Identification Verified (Name & Yes Yes Yes ) Patient Requires Transmission-Based No No Precautions Safety Precautions NA Vital Signs Temperature (97.8 F-99.1 F) 97.6 F L 97.7 F L 95.6 F L Temperature Source Temporal Temporal Temporal Pulse Rate (60-100) 55 L 96 72 Pulse Location Monitor Monitor Monitor Respiratory Rate (12-18) 18 18 Respiratory rate source Observation Observation Blood Pressure (90/60-120/80) 153/74 H 131/80 H 147/80 H Blood Pressure Mean (mm Hg) 100 97 102 Source Monitor Monitor Monitor Position Semi-Fowlers Sitting Blood Pressure Location Left Arm Left Arm History Since Last Visit- (Skip if this is Patient's initial visit) Have you changed medications since your No No No last visit? Any new allergies or adverse reactions No No No Had a fall/change in ADL's that may No No No increase risk of falls Signs or symptoms of abuse and/or No No No neglect since last visit Have you been in the hospital since your No No No last visit? Has dressing in place as prescribed Yes Yes Yes Has compression in place as prescribed No Yes N/A Has offloadiing in place as prescribed No No N/A Experienced any changes in pain level or No No No management Left Footwear Regular Shoe Right Footwear No Footwear Pain Scale: 0-10 Numeric Is Patient Pain Free? Yes Yes Yes 02/18/22 09:47 WC - Today's Visit Information Type of service Follow-up Visit (Physician/TRANSPORTATION INSPECTOR ) Arrival Mode Wheelchair Transfer Assistance Patient Identification Verified (Name & Yes ) Patient Requires Transmission-Based No Precautions Safety Precautions NA Vital Signs Temperature (97.8 F-99.1 F) 96.3 F L Temperature Source Temporal Pulse Rate (60-100) 63 Pulse Location Monitor Respiratory Rate (12-18) Respiratory rate source Blood Pressure (90/60-120/80) 166/83 H Blood Pressure Mean (mm Hg) 110 Source Monitor Position Blood Pressure Location History Since Last Visit- (Skip if this is Patient's initial visit) Have you changed medications since your No last visit? Any new allergies or adverse reactions No Had a fall/change in ADL's that may No increase risk of falls Signs or symptoms of abuse and/or No neglect since last visit Have you been in the hospital since your No last visit? Has dressing in place as prescribed Yes Has compression in place as prescribed N/A Has offloadiing in place as prescribed N/A Experienced any changes in pain level or No management Left Footwear Right Footwear Regular Shoe Pain Scale: 0-10 Numeric Is Patient Pain Free? Yes WC - Nurse 1 - General Ulcer Measurement Start: 01/30/22 08:23 Freq: Status: Active Protocol: Activity Type Activity Date Activity User E-sign Co-sign Detail Recorded Client Recorded Date Recorded By Document 01/30/22 08:23 RB [id number] 01/30/22 08:25 RB Document 02/06/22 08:54 DL [id number] 02/06/22 08:59 DL Document 02/11/22 10:03 AK [id number] 02/11/22 10:08 AK Document 02/18/22 09:47 AK [id number] 02/18/22 09:49 AK 01/30/22 02/06/22 02/11/22 08:23 08:54 10:03 Wound Center Nurse 1 #3 L Stump/Post op -Combined with other wound No No No -Current Size (cm) - Length 0.8 0.9 0.7 -Current Size (cm) - Width 2 2.1 1.8 -Current Size (cm) - Depth 0.5 0.2 0.4 -Total Square Cm 1.6 1.89 1.26 -Photo Taken Yes Yes Yes -Tunneling No No No -Undermining/Tunneling No Yes Yes -Undermining/Tunneling Starts (O'clock 10 11 ) -Undermining/Tunneling Ends (O'clock) 2 1 -Maximum Distance (cm) 0.9 0.8 -Circular Undermining No No No -Change in Wound Grade/Stage No -Exudate Amt Medium Medium Medium -Exudate Type Serosanguineous Serosanguineous Serosanguineous -Wound Margin Thickened & Thickened Distinct, Rolled Under Outline Attached -Granulation Amt Medium (34-66%) Medium (34-66%) Medium (34-66%) -Granulation Quality Alderpoint Alderpoint Alderpoint -Slough/Fibrin Yes Yes Yes -Necrosis Amt Medium (34-66%) Small (1-33%) Small (1-33%) -Necrotic Tissue Type Adherent Slough Adherent Slough Adherent Slough -Structure Exposed N/A N/A N/A -Texture (Yudy-wound Skin Appearance) Assessed, Assessed No Abnormality, Scarring Assessed -Moisture (Yudy-wound Skin Appearance) Assessed Assessed No Abnormality, Assessed -Color (Yudy-wound Skin Appearance) Assessed Assessed No Abnormality, Assessed -Temperature (Yudy-wound Skin No Abnormality No Abnormality Appearance) (Pt Warm) (Pt Warm) -Tenderness on Palpation (Yudy-wound Yes No No Skin Appearance) -Ulcer Cleansing Rinsed/ Wound Cleanser Soap and Water Irrigated with Saline -Foul Odor after Cleansing No No No -Anesthetic Used 5% Lidocaine 5% Lidocaine 4% Lidocaine Gel Gel Solution 02/18/22 09:47 Wound Center Nurse 1 #3 L Stump/Post op -Combined with other wound No -Current Size (cm) - Length 1 -Current Size (cm) - Width 1.5 -Current Size (cm) - Depth 0.2 -Total Square Cm 1.5 -Photo Taken No -Tunneling No -Undermining/Tunneling No -Undermining/Tunneling Starts (O'clock ) -Undermining/Tunneling Ends (O'clock) -Maximum Distance (cm) -Circular Undermining No -Change in Wound Grade/Stage No -Exudate Amt Large -Exudate Type Yellow/Green -Wound Margin Distinct, Outline Attached -Granulation Amt Medium (34-66%) -Granulation Quality Pale,Alderpoint -Slough/Fibrin Yes -Necrosis Amt Medium (34-66%) -Necrotic Tissue Type Adherent Slough -Structure Exposed N/A -Texture (Yudy-wound Skin Appearance) Assessed, Scarring -Moisture (Yudy-wound Skin Appearance) Assessed, Maceration -Color (Yudy-wound Skin Appearance) No Abnormality, Assessed -Temperature (Yudy-wound Skin No Abnormality Appearance) (Pt Warm) -Tenderness on Palpation (Yudy-wound No Skin Appearance) -Ulcer Cleansing Soap and Water -Foul Odor after Cleansing No -Anesthetic Used 5% Lidocaine Gel WC - Nurse 2 - General Ulcer CM Notes Start: 01/30/22 08:23 Freq: Status: Active Protocol: Activity Type Activity Date Activity User E-sign Co-sign Detail Recorded Client Recorded Date Recorded By Document 01/30/22 08:57 MARSHALL [id number] 01/30/22 08:59 Document 02/06/22 09:22 MARSHALL [id number] 02/06/22 09:24 Document 02/11/22 10:46 MARSHALL [id number] 02/11/22 10:50 Document 02/18/22 10:01 [id number] 02/18/22 10:15 01/30/22 02/06/22 02/11/22 08:57 09:22 10:46 Wound Center Nurse 2 #3 L Stump/Post op -Time 08:57 09:22 10:48 -Correct Patient Yes Yes Yes -Correct Side, Site, Position Yes Yes Yes -Correct Procedure Yes Yes Yes -Procedure Performed Yes Yes Yes -Type of Procedure Debridement Debridement Debridement -Clinical Debridement Muscle / Fascia Subcutaneous Subcutaneous -Tissue Removed Muscle Subcutaneous Subcutaneous -Post Debridement (cm) - Length 1.0 1.0 1 -Post Debridement (cm) - Width 2.3 2.5 2 -Post Debridement (cm) - Depth 0.9 0.3 0.2 -Total Square (Post) (cm) 2.30 2.50 2 -Area of Debridement (cm) - Length 1.0 1.0 1 -Area of Debridement (cm) - Width 2.3 2.5 2 -Total Square (Area) (cm) 2.30 2.50 2 -Tunneling No No No -Undermining/Tunneling Yes Yes Yes -Undermining/Tunneling Starts (O'clock 3 7 9 ) -Undermining/Tunneling Ends (O'clock) 9 3 12 -Maximum Distance (cm) 0.7 1.2 0.6 -Circular Undermining No No No -Wound/Ulcer Outcome Not Healed Not Healed Not Healed -Ulcer Cleansing Rinsed/ Rinsed/ Rinsed/ Irrigated with Irrigated with Irrigated with Saline Saline Saline -Foul Odor after Cleansing No No No -Bioengineered Tissue No Yes Yes -Type of Bioengineered Tissue Epifix Epifix -Expiration Date 09/21/26 09/21/26 -Product Lot Number [id number] -Percent Used 100 100 -Lot number of Saline Used [id number] -Bleeding Controlled with Pressure Pressure Pressure -Treatment Response Procedure Procedure Procedure Tolerated Well Tolerated Well Tolerated Well -Offloading No No No -Assistive Device(s) Wheelchair Wheelchair -Debridement - Subq, 1st 20sq cm No No -Debridement - Muscle / Fascia, 1st Yes 20sq cm -Apply Skin Sub - 1st 25 sq cm - Legs 1 1 -Epifix (per sq cm) 4 4 Pain Scale: 0-10 Numeric Is Patient Pain Free? Yes Yes Yes 02/18/22 10:01 Wound Center Nurse 2 #3 L Stump/Post op -Time 10:01 -Correct Patient Yes -Correct Side, Site, Position Yes -Correct Procedure Yes -Procedure Performed Yes -Type of Procedure Debridement -Clinical Debridement Subcutaneous -Tissue Removed Subcutaneous -Post Debridement (cm) - Length 1.3 -Post Debridement (cm) - Width 2.1 -Post Debridement (cm) - Depth 0.8 -Total Square (Post) (cm) 2.73 -Area of Debridement (cm) - Length 1.3 -Area of Debridement (cm) - Width 2.1 -Total Square (Area) (cm) 2.73 -Tunneling No -Undermining/Tunneling Yes -Undermining/Tunneling Starts (O'clock 9 ) -Undermining/Tunneling Ends (O'clock) 1 -Maximum Distance (cm) 0.5 -Circular Undermining No -Wound/Ulcer Outcome Not Healed -Ulcer Cleansing Rinsed/ Irrigated with Saline -Foul Odor after Cleansing No -Bioengineered Tissue Yes -Type of Bioengineered Tissue Epifix -Expiration Date 09/21/26 -Product Lot Number [id number] -Percent Used 100 -Lot number of Saline Used -Bleeding Controlled with Pressure -Treatment Response Procedure Tolerated Well -Offloading No -Assistive Device(s) Wheelchair -Debridement - Subq, 1st 20sq cm No -Debridement - Muscle / Fascia, 1st 20sq cm -Apply Skin Sub - 1st 25 sq cm - Legs 1 -Epifix (per sq cm) 4 Pain Scale: 0-10 Numeric Is Patient Pain Free? Yes - Nurse 3 - General Ulcer D/C NN Start: 01/30/22 08:23 Freq: Status: Active Protocol: Activity Type Activity Date Activity User E-sign Co-sign Detail Recorded Client Recorded Date Recorded By Document 01/30/22 09:08 DL [id number] 01/30/22 09:09 DL Document 02/06/22 09:35 RB [id number] 02/06/22 09:35 RB Document 02/11/22 10:55 [facility] [id number] 02/11/22 10:56 BM Document 02/18/22 10:21 [id number] 02/18/22 10:21 01/30/22 02/06/22 02/11/22 09:08 09:35 10:55 Wound Care Nurse 3 #3 L Stump/Post op -Ulcer Cleansing Rinsed/ Irrigated with Saline -Foul Odor after Cleansing No -Primary Dressing Applied Aquacel AG 4x4 Mepilex Border Mepilex Border -Other Dressing chalino EPIFIX -Primary Dressing Covered/Secured with Dry Gauze & Dry Gauze Roll Gauze, Secured with Tape -Other Covering chalino DRSG PER AK DIRECTOR HEART -Aquacel AG 4x4 1 -Mepilex Border 1 1 Left -Compression Wrap Chalino Wrap -Other APPLIED PER [place] DIRECTOR HEART Treatment Response Procedure Procedure Procedure Tolerated Well Tolerated Well Tolerated Well Pain Scale: 0-10 Numeric Is Patient Pain Free? Yes Yes Yes WC - Visit Discharge Discharge Condition Stable Stable Stable Ambulatory Status Wheelchair Wheelchair Wheelchair Transportation Private Auto Private Auto Medication Reconcilliation completed & No provided to patient/care provider Clinical Summary of Care Provided Yes Facility Type Home Health Orders Sent Yes 02/18/22 10:21 Wound Care Nurse 3 #3 L Stump/Post op -Ulcer Cleansing Rinsed/ Irrigated with Saline -Foul Odor after Cleansing No -Primary Dressing Applied Mepilex Border -Other Dressing -Primary Dressing Covered/Secured with -Other Covering -Aquacel AG 4x4 -Mepilex Border 1 Left -Compression Wrap Chalino Wrap -Other Treatment Response Pain Scale: 0-10 Numeric Is Patient Pain Free? Yes WC - Visit Discharge Discharge Condition Stable Ambulatory Status Wheelchair Transportation Private Auto Medication Reconcilliation completed & Yes provided to patient/care provider Clinical Summary of Care Provided Yes Facility Type Orders Sent Assessment/Plan Assessment/Plan (1) Pressure ulcer of BKA stump, stage 4: CODE(S): T87.89 - Other complications of amputation stump; L89.894 - Pressure ulcer of other site, stage 4 (2) Diabetes mellitus with ulcer of lower extremity: CODE(S): E11.622 - Type 2 diabetes mellitus with other skin ulcer; L97.909 - Non-pressure chronic ulcer of unspecified part of unspecified lower leg with unspecified severity (3) Below-knee amputation of left lower extremity: CODE(S): S88.112A - Complete traumatic amputation at level between knee and ankle, left lower leg, initial encounter (4) Diabetes: CODE(S): E11.9 - Type 2 diabetes mellitus without complications (5) Smoker: CODE(S): F17.200 - Nicotine dependence, unspecified, uncomplicated PLAN: Plan Patient was evaluated at the wound center today. Wound care - He has completed 10 applications of Theraskin. He has been approved for Epifix. Epifix #3 placed today. 2x[address] on the ulcer and packed into the deeper aspect of the ulcer at 12 o'clock. 100% of the product was used. Covered with wound veil and secured with steri-strips and skin prep and topped with Mepilex dressing. He is not to get the ulcer wet. He may change the outer dressing above the wound veil as needed. Compression - CHALINO wrap covered with stump automotive engineering teacher. Bone culture 12/25/21 - Staphylococcus aureus. Pathology of bone showed dense fibroconnective tissue with reactive changes and foreign body giant cell reaction. Pieces of bone with reactive changes. I spoke with Dr. Boston and it was decided that we would refer the patient to Dr. Almendarez, ID for further evaluation and treatment, he is receiving IV antibiotic, Cefazolin, for 6 weeks, he currently has a PICC line. Obtained a wound culture on 09/17/21 which was negative for bacterial growth. Wash the ulcer and yudy wound daily with the dressing change because this is helping with yudy wound excoriation, which has resolved. Wound culture from 07/09/21 positive for Staphylococcus aureus and Streptococcus agalactiae (B). He completed his Augmentin. Encouraged high protein diet to help with wound healing and low carb diet to help keep better control of blood sugars. He states he is not wearing his prosthesis unless it is absolutely necessary and is not able to wear it since his debridement last week. Encouraged patient to stop smoking as it may have deleterious effects on wound healing. Follow up 1 week. Follow-up sooner or report to the emergency department should new or concerning symptoms arise.
== END 2022-02-20 23:59 | disposition home or self-care (01) ==
LOC: WC 09:45
PROVIDERS: PCP Family Medicine; Visit Provider Nurse Practitioner Family
DX: T87.89 Other complications of amputation stump (principal); L89.894 Pressure ulcer of other site, stage 4; E11.622 Type 2 diabetes mellitus with other skin ulcer; R60.0 Localized edema; F17.200 Nicotine dependence, unspecified, uncomplicated; Y83.5 Amputation of limb(s) as the cause of abnormal reaction of the patient, or of later complication, without mention of misadventure at the time of the procedure
CPT/HCPCS: 11043; 15271; Q4186

== ENCOUNTER 2022-03-20 09:30 | Outpatient (RCR) | payer MEDICARE, MEDICAID, SELFPAY ==
[2022-02-21 00:24] VITALS: BP 166/83; PULSE 63; RESP 18; TEMP 35.7
[2022-02-25 09:35] VITALS: BP 157/83; PULSE 71; TEMP 36.1
--- NOTE | 2022-02-25 12:35 | PCM.WC.PN ---
History of Present Illness Date of Service: 02/25/22 Chief Complaint: Ulcer on left BKA after I&D of a diabetic abscess/hematoma on 11/06/20 History of Wound: Surgery on 11/06/20 - Surgical preparation left below knee amputation stump with incision and drainage and excisional debridement with partial ostectomy tibia for osteomyelitis and evacuation hematoma for draining diabetic ulcer abscess. (He had his Left BKA on 04/17/20). Operative tissue and bone cultures were negative. Wound cultures from 11/02/20 positive for MSSA, Enterobacter cloacae complex, and Corynebacterium amycolatum. Prealbumin 9.9 on 11/07/20. He was evaluated by Dr. Boston on 12/06/21 for an operative debridement and possible osteomyelitis. Surgery with Dr. Boston on 12/25/21 for Debridement left lower extremity amputation stump skin, subcutaneous tissue, fascia, bone. Bone culture 12/25/21 - Staphylococcus aureus. Pathology of bone showed dense fibroconnective tissue with reactive changes and foreign body giant cell reaction. Pieces of bone with reactive changes. Wound culture from 09/17/21 showed no growth. Wound culture from 07/09/21 positive for Staphylococcus aureus and Streptococcus agalactiae (B). He was started on Augmentin and a Probiotic. Xray obtained on 10/01/21 of his left BKA stump because of his non healing ulcer. The xray showed bony abnormalities along the lateral aspect of the amputation site of the proximal tibia. Consider further evaluation to exclude osteomyelitis. He obtained this xray at [facility]. MRI obtained 10/31/21, at [facility], of his left BKA which showed Bone edema with contrast enhancement of the tibia consistent with osteomyelitis. Small fluid collection at the distal aspect of the amputated tibia suggestive of small abscess. He has has completed ten applications of Theraskin which did help decrease his ulcer size. 02/25/22-Unroofed the undermining from 9-3 o'clock to make wound care easier. Wound care - He has had 10 applications of Theraskin. Since he has had an operative debridement, he has qualified for Epifix, #4 applied today. He is wearing a stump arts manager for compression. Today he denies any fever. He states his appetite is good. Progress of Wound: Left BKA ulcer has undermining from 9-3 o'clock that is making it difficult to place the Epifix. The base of the ulcer is a nice beefy pink color. Objective Data Objective Data Vital Signs: Vital Signs Temp Pulse Resp BP 96.9 F L 71 18 157/83 H 02/25/22 09:35 02/25/22 09:35 02/21/22 00:24 02/25/22 09:35 Charges/Coding Procedures Integumentary 150xxx-152xx: 84151 Skin sub graft trnk/arm/leg Debridement Note Debridement Note Wound debrided: BKA stump ulcer Laterality: Left Wound Grade/Stage: StageIV Type of Debridement: Excisional debridement Anesthesia Used: 5% Lidocaine Gel and - (2% lidocaine with epinepherine 2 cc injected into the undermining) Depth: Down to and including healthy tissue, in the subcutaneous layer and to muscle Percentage of wound debrided: 100 Instrument Used: 5mm curette and #15 blade Tissue Removed: Devitalized tissue and slough into the muscle with unroofing undermining Severity: Fat Layer Exposed Amount of bleeding with debridement: Mild Bleeding Controlled with: Compression and gauze and Silver Nitrate Patient tolerated procedure: Patient tolerated procedure well Debridement Free Text: There is undermining from 9-3 o'clock. Injected Lidocaine/epi 2 ml into this area. Waited 20 minutes then used a #15 blade and pickups to remove the undermining. There was minimal bleeding. Used silver nitrate on the area to prevent further bleeding. Patient tolerated the procedure well. After the undermining was removed, there is some depth at 12 o'clock in the wound bed. Post-Debridement Measurements and Additional Note: Post-Debridement Measurements/Treatment - Nurse 1 - General Ulcer Assessment Start: 02/25/22 09:35 Freq: Status: Active Protocol: FREDI.LOWEXT Activity Type Activity Date Activity User E-sign Co-sign Detail Recorded Client Recorded Date Recorded By Document 02/25/22 09:35 KATERINA [id number] 02/25/22 09:40 KATERINA 02/25/22 09:35 - Today's Visit Information Type of service Follow-up Visit (Physician/PUBLIC HEALTH INFORMATICIAN ) Arrival Mode Wheelchair Patient Identification Verified (Name & Yes ) Patient Requires Transmission-Based No Precautions Safety Precautions NA Vital Signs Temperature (97.8 F-99.1 F) 96.9 F L Temperature Source Temporal Pulse Rate (60-100) 71 Pulse Location Monitor Blood Pressure (90/60-120/80) 157/83 H Blood Pressure Mean (mm Hg) 107 Source Monitor History Since Last Visit- (Skip if this is Patient's initial visit) Have you changed medications since your No last visit? Any new allergies or adverse reactions No Had a fall/change in ADL's that may No increase risk of falls Signs or symptoms of abuse and/or No neglect since last visit Have you been in the hospital since your No last visit? Has dressing in place as prescribed Yes Has compression in place as prescribed Yes Has offloadiing in place as prescribed Yes Experienced any changes in pain level or No management Right Footwear Regular Shoe Pain Scale: 0-10 Numeric Is Patient Pain Free? Yes WC - Nurse 1 - General Ulcer Measurement Start: 02/25/22 09:35 Freq: Status: Active Protocol: Activity Type Activity Date Activity User E-sign Co-sign Detail Recorded Client Recorded Date Recorded By Document 02/25/22 09:35 [place] [id number] 02/25/22 09:40 KATERINA 02/25/22 09:35 Wound Center Nurse 1 #3 L Stump/Post op -Combined with other wound No -Current Size (cm) - Length 0.5 -Current Size (cm) - Width 1.6 -Current Size (cm) - Depth 0.2 -Total Square Cm 0.80 -Date of Last Picture (Recall this 02/25/22 field) -Photo Taken Yes -Tunneling No -Undermining/Tunneling No -Circular Undermining No -Change in Wound Grade/Stage No -Exudate Amt Large -Exudate Type Yellow/Green -Wound Margin Distinct, Outline Attached -Granulation Amt Large (67-100%) -Granulation Quality Pale,[place] -Slough/Fibrin Yes -Necrosis Amt Small (1-33%) -Necrotic Tissue Type Adherent Slough -Structure Exposed N/A -Texture (Yudy-wound Skin Appearance) Assessed, Scarring -Moisture (Yudy-wound Skin Appearance) Assessed, Maceration -Color (Yudy-wound Skin Appearance) No Abnormality, Assessed -Temperature (Yudy-wound Skin No Abnormality Appearance) (Pt Warm) -Tenderness on Palpation (Yudy-wound No Skin Appearance) -Ulcer Cleansing Soap and Water -Foul Odor after Cleansing No -Anesthetic Used 5% Lidocaine Gel WC - Nurse 2 - General Ulcer CM Notes Start: 02/25/22 09:35 Freq: Status: Active Protocol: Activity Type Activity Date Activity User E-sign Co-sign Detail Recorded Client Recorded Date Recorded By Document 02/25/22 10:24 MARSHALL [id number] 02/25/22 10:31 JF 02/25/22 10:24 Wound Center Nurse 2 -Time 10:24 -Correct Patient Yes -Correct Side, Site, Position Yes -Correct Procedure Yes -Procedure Performed Yes -Type of Procedure Debridement -Clinical Debridement Subcutaneous -Tissue Removed Subcutaneous -Post Debridement (cm) - Length 1.0 -Post Debridement (cm) - Width 2.0 -Post Debridement (cm) - Depth 0.1 -Total Square (Post) (cm) 2.00 -Area of Debridement (cm) - Length 1.0 -Area of Debridement (cm) - Width 2.0 -Total Square (Area) (cm) 2.00 -Tunneling Yes -Tunneling Position (O'clock) 12 -Tunneling Distance (cm) 0.4 -Undermining/Tunneling No -Circular Undermining No -Wound/Ulcer Outcome Not Healed -Ulcer Cleansing Rinsed/ Irrigated with Saline -Foul Odor after Cleansing No -Bioengineered Tissue Yes -Type of Bioengineered Tissue Epifix -Expiration Date 10/22/26 -Product Lot Number [id number] -Percent Used 100 -Lot number of Saline Used [id number] -Bleeding Controlled with Pressure,Silver Nitrate -Treatment Response Procedure Tolerated Well -Offloading No -Assistive Device(s) Wheelchair -Debridement - Subq, 1st 20sq cm No -Apply Skin Sub - 1st 25 sq cm - Legs 1 -Epifix (per sq cm) 4 Pain Scale: 0-10 Numeric Is Patient Pain Free? Yes WC - Nurse 3 - General Ulcer D/C NN Start: 02/25/22 09:35 Freq: Status: Active Protocol: Activity Type Activity Date Activity User E-sign Co-sign Detail Recorded Client Recorded Date Recorded By Document 02/25/22 10:43 DL [id number] 02/25/22 10:44 DL 02/25/22 10:43 Wound Care Nurse 3 #3 L Stump/Post op -Foul Odor after Cleansing No -Primary Dressing Applied Mepilex Border -Other Dressing epifix -Primary Dressing Covered/Secured with Dry Gauze -Mepilex Border 1 Treatment Response Procedure Tolerated Well Pain Scale: 0-10 Numeric Is Patient Pain Free? Yes WC - Visit Discharge Discharge Condition Stable Ambulatory Status Wheelchair Transportation Private [facility] Facility Type Home Health Orders Sent Yes Assessment/Plan Assessment/Plan (1) Pressure ulcer of BKA stump, stage 4: CODE(S): T87.89 - Other complications of amputation stump; L89.894 - Pressure ulcer of other site, stage 4 (2) Diabetes mellitus with ulcer of lower extremity: CODE(S): E11.622 - Type 2 diabetes mellitus with other skin ulcer; L97.909 - Non-pressure chronic ulcer of unspecified part of unspecified lower leg with unspecified severity (3) Below-knee amputation of left lower extremity: CODE(S): S88.112A - Complete traumatic amputation at level between knee and ankle, left lower leg, initial encounter (4) Diabetes: CODE(S): E11.9 - Type 2 diabetes mellitus without complications (5) Smoker: CODE(S): F17.200 - Nicotine dependence, unspecified, uncomplicated PLAN: Plan Patient was evaluated at the wound center today. Now that the undermining of the ulcer has been unroofed, it will make wound care easier. Wound care - He has completed 10 applications of Theraskin. He has been approved for Epifix. Epifix #4 placed today. 2x[address] on the ulcer and packed into the deeper aspect of the ulcer at 12 o'clock. 100% of the product was used. Covered with wound veil and secured with steri-strips and skin prep and topped with Mepilex dressing. He is not to get the ulcer wet. He may change the outer dressing above the wound veil as needed. Compression - AMIE wrap covered with stump arts manager. Bone culture 12/25/21 - Staphylococcus aureus. Pathology of bone showed dense fibroconnective tissue with reactive changes and foreign body giant cell reaction. Pieces of bone with reactive changes. I spoke with Dr. Boston and it was decided that we would refer the patient to Dr. Almendarez, [place] for further evaluation and treatment, he is receiving IV antibiotic, Cefazolin, for 6 weeks, he currently has a PICC line. Obtained a wound culture on 09/17/21 which was negative for bacterial growth. Wash the ulcer and yudy wound daily with the dressing change because this is helping with yudy wound excoriation, which has resolved. Wound culture from 07/09/21 positive for Staphylococcus aureus and Streptococcus agalactiae (B). He completed his Augmentin. Encouraged high protein diet to help with wound healing and low carb diet to help keep better control of blood sugars. He states he is not wearing his prosthesis. Encouraged patient to stop smoking as it may have deleterious effects on wound healing. Percocet (9 tabs) prescribed to help with pain from the unroofing of the undermining. PDMP reviewed. Follow up 1 week. Follow-up sooner or report to the emergency department should new or concerning symptoms arise.
[2022-03-04 09:20] VITALS: BP 151/87; PULSE 68; TEMP 36.2
--- NOTE | 2022-03-04 12:32 | PN.PCM_ITS ---
History of Present Illness Date of Service: 03/04/22 Chief Complaint: Ulcer on left BKA after I&D of a diabetic abscess/hematoma on 11/06/20 History of Wound: Surgery on 11/06/20 - Surgical preparation left below knee amputation stump with incision and drainage and excisional debridement with partial ostectomy tibia for osteomyelitis and evacuation hematoma for draining diabetic ulcer abscess. (He had his Left BKA on 04/17/20). Operative tissue and bone cultures were negative. Wound cultures from 11/02/20 positive for MSSA, Enterobacter cloacae complex, and Corynebacterium amycolatum. Prealbumin 9.9 on 11/07/20. He was evaluated by Dr. Boston on 12/06/21 for an operative debridement and pos sible osteomyelitis. Surgery with Dr. Boston on 12/25/21 for Debridement left lower extremity amputation stump skin, subcutaneous tissue, fascia, bone. Bone culture 12/25/21 - Staphylococcus aureus. Pathology of bone showed dense fibroconnective tissue with reactive changes and foreign body giant cell reaction. Pieces of bone with reactive changes. Wound culture from 09/17/21 showed no growth. Wound culture from 07/09/21 positive for Staphylococcus aureus and Streptococcus agalactiae (B). He was started on Augmentin and a Probiotic. Xray obtained on 10/01/21 of his left BKA stump because of his non healing ulcer. The xray showed bony abnormalities along the lateral aspect of the amputation site of the proximal tibia. Consider further evaluation to exclude osteomyelitis. He obtained this xray at [facility]. MRI obtained 10/31/21, at [facility], of his left BKA which showed Bone edema with contrast enhancement of the tibia consistent with osteomyelitis. Small fluid collection at the distal aspect of the amputated tibia suggestive of small abscess. He has has completed ten applications of Theraskin which did help decrease his ulcer size. 02/25/22-Unroofed the undermining from 9-3 o'clock to make wound care easier. Wound care - He has had 10 applications of Theraskin. Since he has had an operative debridement, he has qualified for Epifix, #5 applied today. He is wearing a stump turfgrass management professor for compression. Today he denies any fever. He states his appetite is good. Progress of Wound: Left BKA ulcer is beefy pink. They ulcer was unroofed last week and it exposed an increased depth at 12 o'clock. Objective Data Objective Data Vital Signs: Vital Signs Temp Pulse Resp BP 97.2 F L 68 18 151/87 H 03/04/22 09:20 03/04/22 09:20 02/21/22 00:24 03/04/22 09:20 Charges/Coding Procedures Integumentary 150xxx-152xx: 33670 Skin sub graft trnk/arm/leg Debridement Note Debridement Note Wound debrided: BKA stump ulcer Laterality: Left Wound Grade/Stage: StageIV Type of Debridement: Excisional debridement Anesthesia Used: 5% Lidocaine Gel and - (2% lidocaine with epinepherine 2 cc injected into the undermining) Depth: Down to and including healthy tissue, in the subcutaneous layer and to muscle Percentage of wound debrided: 100 Instrument Used: 5mm curette Tissue Removed: Devitalized tissue and slough into the muscle Severity: Fat Layer Exposed Amount of bleeding with debridement: Mild Bleeding Controlled with: Compression and gauze and Silver Nitrate Patient tolerated procedure: Patient tolerated procedure well Debridement Free Text: There is some depth at 12 o'clock in the wound bed. Post-Debridement Measurements and Additional Note: Post-Debridement Measurements/Treatment - Nurse 1 - General Ulcer Assessment Start: 02/25/22 09:35 Freq: Status: Active Protocol: ARLETH Activity Type Activity Date Activity User E-sign Co-sign Detail Recorded Client Recorded Date Recorded By Document 02/25/22 09:35 [place] [id number] 02/25/22 09:40 KS Document 03/04/22 09:20 KS [id number] 03/04/22 09:26 [place] 02/25/22 03/04/22 09:35 09:20 - Today's Visit Information Type of service Follow-up Visit Follow-up Visit (Physician/FERRYBOAT CAPTAIN (Physician/FERRYBOAT CAPTAIN ) ) Arrival Mode Wheelchair Wheelchair Patient Identification Verified (Name & Yes Yes ) Patient Requires Transmission-Based No No Precautions Safety Precautions NA Vital Signs Temperature (97.8 F-99.1 F) 96.9 F L 97.2 F L Temperature Source Temporal Temporal Pulse Rate (60-100) 71 68 Pulse Location Monitor Monitor Blood Pressure (90/60-120/80) 157/83 H 151/87 H Blood Pressure Mean (mm Hg) 107 108 Source Monitor Monitor History Since Last Visit- (Skip if this is Patient's initial visit) Have you changed medications since your No No last visit? Any new allergies or adverse reactions No No Had a fall/change in ADL's that may No No increase risk of falls Signs or symptoms of abuse and/or No No neglect since last visit Have you been in the hospital since your No No last visit? Has dressing in place as prescribed Yes Yes Has compression in place as prescribed Yes Yes Has offloadiing in place as prescribed Yes N/A Experienced any changes in pain level or No No management Right Footwear Regular Shoe Regular Shoe Pain Scale: 0-10 Numeric Is Patient Pain Free? Yes Yes WC - Nurse 1 - General Ulcer Measurement Start: 02/25/22 09:35 Freq: Status: Active Protocol: Activity Type Activity Date Activity User E-sign Co-sign Detail Recorded Client Recorded Date Recorded By Document 02/25/22 09:35 KS [id number] 02/25/22 09:40 AK Document 03/04/22 09:20 KS [id number] 03/04/22 09:26 [place] 02/25/22 03/04/22 09:35 09:20 Wound Center Nurse 1 #3 L Stump/Post op -Combined with other wound No No -Current Size (cm) - Length 0.5 0.5 -Current Size (cm) - Width 1.6 1.5 -Current Size (cm) - Depth 0.2 0.4 -Total Square Cm 0.80 0.75 -Date of Last Picture (Recall this 02/25/22 03/04/22 field) -Photo Taken Yes Yes -Tunneling No No -Undermining/Tunneling No No -Circular Undermining No No -Change in Wound Grade/Stage No No -Exudate Amt Large Large -Exudate Type Yellow/Green Yellow/Green -Wound Margin Distinct, Distinct, Outline Outline Attached Attached -Granulation Amt Large (67-100%) Medium (34-66%) -Granulation Quality Pale,[place] -Slough/Fibrin Yes Yes -Necrosis Amt Small (1-33%) Small (1-33%) -Necrotic Tissue Type Adherent Slough Adherent Slough -Structure Exposed N/A N/A -Texture (Yudy-wound Skin Appearance) Assessed, No Abnormality, Scarring Assessed -Moisture (Yudy-wound Skin Appearance) Assessed, Assessed, Maceration Maceration -Color (Yudy-wound Skin Appearance) No Abnormality, No Abnormality, Assessed Assessed -Temperature (Yudy-wound Skin No Abnormality No Abnormality Appearance) (Pt Warm) (Pt Warm) -Tenderness on Palpation (Yudy-wound No No Skin Appearance) -Ulcer Cleansing Soap and Water Rinsed/ Irrigated with Saline -Foul Odor after Cleansing No No -Anesthetic Used 5% Lidocaine 5% Lidocaine Gel Gel WC - Nurse 2 - General Ulcer CM Notes Start: 02/25/22 09:35 Freq: Status: Active Protocol: Activity Type Activity Date Activity User E-sign Co-sign Detail Recorded Client Recorded Date Recorded By Document 02/25/22 10:24 [id number] 02/25/22 10:31 Document 03/04/22 10:17 [id number] 03/04/22 10:24 02/25/22 03/04/22 10:24 10:17 Wound Center Nurse 2 #3 L Stump/Post op -Time 10:24 10:17 -Correct Patient Yes Yes -Correct Side, Site, Position Yes Yes -Correct Procedure Yes Yes -Procedure Performed Yes Yes -Type of Procedure Debridement Debridement -Clinical Debridement Subcutaneous Subcutaneous -Tissue Removed Subcutaneous Subcutaneous -Post Debridement (cm) - Length 1.0 1.0 -Post Debridement (cm) - Width 2.0 2.0 -Post Debridement (cm) - Depth 0.1 0.8 -Total Square (Post) (cm) 2.00 2.00 -Area of Debridement (cm) - Length 1.0 1.0 -Area of Debridement (cm) - Width 2.0 2.0 -Total Square (Area) (cm) 2.00 2.00 -Tunneling Yes No -Tunneling Position (O'clock) 12 -Tunneling Distance (cm) 0.4 -Undermining/Tunneling No No -Circular Undermining No No -Wound/Ulcer Outcome Not Healed Not Healed -Ulcer Cleansing Rinsed/ Rinsed/ Irrigated with Irrigated with Saline Saline -Foul Odor after Cleansing No No -Bioengineered Tissue Yes Yes -Type of Bioengineered Tissue Epifix Epifix -Expiration Date 10/22/26 10/22/26 -Product Lot Number [id number] -Percent Used 100 100 -Lot number of Saline Used [id number] -Bleeding Controlled with Pressure,Silver Pressure Nitrate -Treatment Response Procedure Procedure Tolerated Well Tolerated Well -Offloading No No -Assistive Device(s) Wheelchair Wheelchair -Debridement - Subq, 1st 20sq cm No No -Apply Skin Sub - 1st 25 sq cm - Legs 1 1 -Epifix (per sq cm) 4 4 Pain Scale: 0-10 Numeric Is Patient Pain Free? Yes Yes - Nurse 3 - General Ulcer D/C NN Start: 02/25/22 09:35 Freq: Status: Active Protocol: Activity Type Activity Date Activity User E-sign Co-sign Detail Recorded Client Recorded Date Recorded By Document 02/25/22 10:43 DL [id number] 02/25/22 10:44 DL Document 03/04/22 10:29 [id number] 03/04/22 10:30 02/25/22 03/04/22 10:43 10:29 Wound Care Nurse 3 #3 L Stump/Post op -Ulcer Cleansing Rinsed/ Irrigated with Saline -Foul Odor after Cleansing No -Primary Dressing Applied Mepilex Border Mepilex Border -Other Dressing epifix -Primary Dressing Covered/Secured with Dry Gauze -Mepilex Border 1 1 Treatment Response Procedure Tolerated Well Pain Scale: 0-10 Numeric Is Patient Pain Free? Yes Yes - Visit Discharge Discharge Condition Stable Stable Ambulatory Status Wheelchair Wheelchair Transportation Private Auto Private Auto Medication Reconcilliation completed & Yes provided to patient/care provider Clinical Summary of Care Provided Yes Facility Type Home Health Orders Sent Yes Assessment/Plan Assessment/Plan (1) Pressure ulcer of BKA stump, stage 4: CODE(S): T87.89 - Other complications of amputation stump; L89.894 - Pressure ulcer of other site, stage 4 (2) Diabetes mellitus with ulcer of lower extremity: CODE(S): E11.622 - Type 2 diabetes mellitus with other skin ulcer; L97.909 - Non-pressure chronic ulcer of unspecified part of unspecified lower leg with unspecified severity (3) Below-knee amputation of left lower extremity: CODE(S): S88.112A - Complete traumatic amputation at level between knee and ankle, left lower leg, initial encounter (4) Diabetes: CODE(S): E11.9 - Type 2 diabetes mellitus without complications (5) Smoker: CODE(S): F17.200 - Nicotine dependence, unspecified, uncomplicated PLAN: Plan Patient was evaluated at the wound center today. Now that the undermining of the ulcer has been unroofed, it will make wound care easier. Wound care - He has completed 10 applications of Theraskin. He has been approved for Epifix. Epifix #5 placed today. 2x[address] on the ulcer and packed into the deeper aspect of the ulcer at 12 o'clock. 100% of the product was used. Covered with wound veil and secured with steri-strips and skin prep and topped with Mepilex dressing. He is not to get the ulcer wet. He may change the outer dressing above the wound veil as needed. Compression - AMIE wrap covered with stump turfgrass management professor. Bone culture 12/25/21 - Staphylococcus aureus. Pathology of bone showed dense fibroconnective tissue with reactive changes and foreign body giant cell reaction. Pieces of bone with reactive changes. I spoke with Dr. Boston and it was decided that we would refer the patient to Dr. Almendarez, [place] for further evaluation and treatment, he is receiving IV antibiotic, Cefazolin, for 6 weeks, he currently has a PICC line. Obtained a wound culture on 09/17/21 which was negative for bacterial growth. Wound culture from 07/09/21 positive for Staphylococcus aureus and Streptococcus agalactiae (B). He completed his Augmentin. Encouraged high protein diet to help with wound healing and low carb diet to help keep better control of blood sugars. He states he is not wearing his prosthesis. Encouraged patient to stop smoking as it may have deleterious effects on wound healing. Follow up 1 week. Follow-up sooner or report to the emergency department should new or concerning symptoms arise.
[2022-03-11 09:26] VITALS: BP 146/85; PULSE 74; TEMP 35.5
--- NOTE | 2022-03-11 11:18 | PN.PCM_ITS ---
History of Present Illness Date of Service: 03/11/22 Chief Complaint: Ulcer on left BKA after I&D of a diabetic abscess/hematoma on 11/06/20 History of Wound: Surgery on 11/06/20 - Surgical preparation left below knee amputation stump with incision and drainage and excisional debridement with partial ostectomy tibia for osteomyelitis and evacuation hematoma for draining diabetic ulcer abscess. (He had his Left BKA on 04/17/20). Operative tissue and bone cultures were negative. Wound cultures from 11/02/20 positive for MSSA, Enterobacter cloacae complex, and Corynebacterium amycolatum. Prealbumin 9.9 on 11/07/20. He was evaluated by Dr. Boston on 12/06/21 for an operative debridement and pos sible osteomyelitis. Surgery with Dr. Boston on 12/25/21 for Debridement left lower extremity amputation stump skin, subcutaneous tissue, fascia, bone. Bone culture 12/25/21 - Staphylococcus aureus. Pathology of bone showed dense fibroconnective tissue with reactive changes and foreign body giant cell reaction. Pieces of bone with reactive changes. Wound culture from 09/17/21 showed no growth. Wound culture from 07/09/21 positive for Staphylococcus aureus and Streptococcus agalactiae (B). He was started on Augmentin and a Probiotic. Xray obtained on 10/01/21 of his left BKA stump because of his non healing ulcer. The xray showed bony abnormalities along the lateral aspect of the amputation site of the proximal tibia. Consider further evaluation to exclude osteomyelitis. He obtained this xray at [facility]. MRI obtained 10/31/21, at [facility] [place], of his left BKA which showed Bone edema with contrast enhancement of the tibia consistent with osteomyelitis. Small fluid collection at the distal aspect of the amputated tibia suggestive of small abscess. He has has completed ten applications of Theraskin which did help decrease his ulcer size. 02/25/22-Unroofed the undermining from 9-3 o'clock to make wound care easier. Wound care - He has had 10 applications of Theraskin. Since he has had an operative debridement, he has qualified for Epifix, #6 applied today. He is wearing a stump commercial engineer for compression. Today he denies any fever. He states his appetite is good. Progress of Wound: Left BKA ulcer is beefy pink and smaller in size. The depth at 12 o'clock has decreased. Objective Data Objective Data Vital Signs: Vital Signs Temp Pulse Resp BP 95.9 F L 74 18 146/85 H 03/11/22 09:26 03/11/22 09:26 02/21/22 00:24 03/11/22 09:26 Charges/Coding Procedures Integumentary 150xxx-152xx: 35083 Skin sub graft trnk/arm/leg Debridement Note Debridement Note Wound debrided: BKA stump ulcer Laterality: Left Wound Grade/Stage: StageIV Type of Debridement: Excisional debridement Anesthesia Used: 5% Lidocaine Gel and - (2% lidocaine with epinepherine 2 cc injected into the undermining) Depth: Down to and including healthy tissue, in the subcutaneous layer and to muscle Percentage of wound debrided: 100 Instrument Used: 5mm curette Tissue Removed: Devitalized tissue and slough into the muscle Severity: Fat Layer Exposed Amount of bleeding with debridement: Mild Bleeding Controlled with: Compression and gauze and Silver Nitrate Patient tolerated procedure: Patient tolerated procedure well Debridement Free Text: There is some depth at 12 o'clock Post-Debridement Measurements and Additional Note: Post-Debridement Measurements/Treatment - Nurse 1 - General Ulcer Assessment Start: 02/25/22 09:35 Freq: Status: Active Protocol: ARLETH Activity Type Activity Date Activity User E-sign Co-sign Detail Recorded Client Recorded Date Recorded By Document 02/25/22 09:35 VT [id number] 02/25/22 09:40 AK Document 03/04/22 09:20 KATERINA [id number] 03/04/22 09:26 VT Document 03/11/22 09:26 VT [id number] 03/11/22 09:32 AK 02/25/22 03/04/22 03/11/22 09:35 09:20 09:26 - Today's Visit Information Type of service Follow-up Visit Follow-up Visit Follow-up Visit (Physician/TROLLEY CAR OPERATOR (Physician/TROLLEY CAR OPERATOR (Physician/TROLLEY CAR OPERATOR ) ) ) Arrival Mode Wheelchair Wheelchair Wheelchair Patient Identification Verified (Name & Yes Yes Yes ) Patient Requires Transmission-Based No No No Precautions Safety Precautions NA Vital Signs Temperature (97.8 F-99.1 F) 96.9 F L 97.2 F L 95.9 F L Temperature Source Temporal Temporal Temporal Pulse Rate (60-100) 71 68 74 Pulse Location Monitor Monitor Monitor Blood Pressure (90/60-120/80) 157/83 H 151/87 H 146/85 H Blood Pressure Mean (mm Hg) 107 108 105 Source Monitor Monitor Monitor History Since Last Visit- (Skip if this is Patient's initial visit) Have you changed medications since your No No No last visit? Any new allergies or adverse reactions No No No Had a fall/change in ADL's that may No No No increase risk of falls Signs or symptoms of abuse and/or No No No neglect since last visit Have you been in the hospital since your No No No last visit? Has dressing in place as prescribed Yes Yes Yes Has compression in place as prescribed Yes Yes N/A Has offloadiing in place as prescribed Yes N/A N/A Experienced any changes in pain level or No No No management Left Footwear Regular Shoe Right Footwear Regular Shoe Regular Shoe Regular Shoe Pain Scale: 0-10 Numeric Is Patient Pain Free? Yes Yes Yes - Nurse 1 - General Ulcer Measurement Start: 02/25/22 09:35 Freq: Status: Active Protocol: Activity Type Activity Date Activity User E-sign Co-sign Detail Recorded Client Recorded Date Recorded By Document 02/25/22 09:35 VT [id number] 02/25/22 09:40 VT Document 03/04/22 09:20 AK [id number] 03/04/22 09:26 AK Document 03/11/22 09:26 VT [id number] 03/11/22 09:32 AK 02/25/22 03/04/22 03/11/22 09:35 09:20 09:26 Wound Center Nurse 1 #3 L Stump/Post op -Combined with other wound No No No -Current Size (cm) - Length 0.5 0.5 0.4 -Current Size (cm) - Width 1.6 1.5 0.8 -Current Size (cm) - Depth 0.2 0.4 0.2 -Total Square Cm 0.80 0.75 0.32 -Date of Last Picture (Recall this 02/25/22 03/04/22 03/11/22 field) -Photo Taken Yes Yes No -Tunneling No No No -Undermining/Tunneling No No No -Circular Undermining No No No -Change in Wound Grade/Stage No No No -Exudate Amt Large Large Medium -Exudate Type Yellow/Green Yellow/Green Yellow/Green -Wound Margin Distinct, Distinct, Distinct, Outline Outline Outline Attached Attached Attached -Granulation Amt Large (67-100%) Medium (34-66%) Medium (34-66%) -Granulation Quality Pale,[place]. Rosa [place] Rosa Pale,[place]. Rosa -Slough/Fibrin Yes Yes Yes -Necrosis Amt Small (1-33%) Small (1-33%) Small (1-33%) -Necrotic Tissue Type Adherent Slough Adherent Slough Adherent Slough -Structure Exposed N/A N/A N/A -Texture (Yudy-wound Skin Appearance) Assessed, No Abnormality, Assessed, Scarring Assessed Scarring -Moisture (Yudy-wound Skin Appearance) Assessed, Assessed, No Abnormality, Maceration Maceration Assessed -Color (Yudy-wound Skin Appearance) No Abnormality, No Abnormality, No Abnormality, Assessed Assessed Assessed -Temperature (Yudy-wound Skin No Abnormality No Abnormality No Abnormality Appearance) (Pt Warm) (Pt Warm) (Pt Warm) -Tenderness on Palpation (Yudy-wound No No No Skin Appearance) -Ulcer Cleansing Soap and Water Rinsed/ Rinsed/ Irrigated with Irrigated with Saline Saline -Foul Odor after Cleansing No No No -Anesthetic Used 5% Lidocaine 5% Lidocaine 5% Lidocaine Gel Gel Gel WC - Nurse 2 - General Ulcer CM Notes Start: 02/25/22 09:35 Freq: Status: Active Protocol: Activity Type Activity Date Activity User E-sign Co-sign Detail Recorded Client Recorded Date Recorded By Document 02/25/22 10:24 [id number] 02/25/22 10:31 Document 03/04/22 10:17 [id number] 03/04/22 10:24 Document 03/11/22 09:53 [id number] 03/11/22 09:57 02/25/22 03/04/22 03/11/22 10:24 10:17 09:53 Wound Center Nurse 2 #3 L Stump/Post op -Time 10:24 10:17 09:53 -Correct Patient Yes Yes Yes -Correct Side, Site, Position Yes Yes Yes -Correct Procedure Yes Yes Yes -Procedure Performed Yes Yes Yes -Type of Procedure Debridement Debridement Debridement -Clinical Debridement Subcutaneous Subcutaneous Subcutaneous -Tissue Removed Subcutaneous Subcutaneous Subcutaneous -Post Debridement (cm) - Length 1.0 1.0 0.9 -Post Debridement (cm) - Width 2.0 2.0 1.8 -Post Debridement (cm) - Depth 0.1 0.8 0.5 -Total Square (Post) (cm) 2.00 2.00 1.62 -Area of Debridement (cm) - Length 1.0 1.0 0.9 -Area of Debridement (cm) - Width 2.0 2.0 1.8 -Total Square (Area) (cm) 2.00 2.00 1.62 -Tunneling Yes No No -Tunneling Position (O'clock) 12 -Tunneling Distance (cm) 0.4 -Undermining/Tunneling No No No -Circular Undermining No No No -Wound/Ulcer Outcome Not Healed Not Healed Not Healed -Ulcer Cleansing Rinsed/ Rinsed/ Rinsed/ Irrigated with Irrigated with Irrigated with Saline Saline Saline -Foul Odor after Cleansing No No No -Bioengineered Tissue Yes Yes Yes -Type of Bioengineered Tissue Epifix Epifix Epifix -Expiration Date 10/22/26 10/22/26 10/22/26 -Product Lot Number [id number] -Percent Used 100 100 100 -Lot number of Saline Used [id number] -Bleeding Controlled with Pressure,Silver Pressure Pressure Nitrate -Treatment Response Procedure Procedure Procedure Tolerated Well Tolerated Well Tolerated Well -Offloading No No No -Assistive Device(s) Wheelchair Wheelchair Wheelchair -Debridement - Subq, 1st 20sq cm No No No -Apply Skin Sub - 1st 25 sq cm - Legs 1 1 1 -Epifix (per sq cm) 4 4 4 Pain Scale: 0-10 Numeric Is Patient Pain Free? Yes Yes Yes WC - Nurse 3 - General Ulcer D/C NN Start: 02/25/22 09:35 Freq: Status: Active Protocol: Activity Type Activity Date Activity User E-sign Co-sign Detail Recorded Client Recorded Date Recorded By Document 02/25/22 10:43 DL [id number] 02/25/22 10:44 DL Document 03/04/22 10:29 JF [id number] 03/04/22 10:30 JF Document 03/11/22 10:02 DL [id number] 03/11/22 10:06 DL 02/25/22 03/04/22 03/11/22 10:43 10:29 10:02 Wound Care Nurse 3 #3 L Stump/Post op -Ulcer Cleansing Rinsed/ Irrigated with Saline -Foul Odor after Cleansing No -Primary Dressing Applied Mepilex Border Mepilex Border Mepilex Border -Other Dressing epifix Epifix -Primary Dressing Covered/Secured with Dry Gauze Dry Gauze & Roll Gauze, Secured with Tape -Mepilex Border 1 1 1 Treatment Response Procedure Procedure Tolerated Well Tolerated Well Pain Scale: 0-10 Numeric Is Patient Pain Free? Yes Yes Yes WC - Visit Discharge Discharge Condition Stable Stable Stable Ambulatory Status Wheelchair Wheelchair Wheelchair Transportation Private Auto Private Auto Private Auto Medication Reconcilliation completed & Yes provided to patient/care provider Clinical Summary of Care Provided Yes Facility Type Home Health Home Health Orders Sent Yes Yes Assessment/Plan Assessment/Plan (1) Pressure ulcer of BKA stump, stage 4: CODE(S): T87.89 - Other complications of amputation stump; L89.894 - Pressure ulcer of other site, stage 4 (2) Diabetes mellitus with ulcer of lower extremity: CODE(S): E11.622 - Type 2 diabetes mellitus with other skin ulcer; L97.909 - Non-pressure chronic ulcer of unspecified part of unspecified lower leg with unspecified severity (3) Below-knee amputation of left lower extremity: CODE(S): S88.112A - Complete traumatic amputation at level between knee and ankle, left lower leg, initial encounter (4) Diabetes: CODE(S): E11.9 - Type 2 diabetes mellitus without complications (5) Smoker: CODE(S): F17.200 - Nicotine dependence, unspecified, uncomplicated PLAN: Plan Patient was evaluated at the wound center today. Now that the undermining of the ulcer has been unroofed and is making wound care easier. Wound care - He has completed 10 applications of Theraskin. He has been approved for Epifix. Epifix #6 placed today. 2x[address] on the ulcer and packed into the deeper aspect of the ulcer at 12 o'clock. 100% of the product was used. Covered with wound veil and secured with steri-strips and skin prep and topped with Mepilex dressing. He is not to get the ulcer wet. He may change the outer dressing above the wound veil as needed. Compression - AMIE wrap covered with stump commercial engineer. Bone culture 12/25/21 - Staphylococcus aureus. Pathology of bone showed dense fibroconnective tissue with reactive changes and foreign body giant cell reaction. Pieces of bone with reactive changes. I spoke with Dr. Boston and it was decided that we would refer the patient to Dr. Almendarez, ID for further evaluation and treatment, he is receiving IV antibiotic, Cefazolin, for 6 weeks, he currently has a PICC line. Obtained a wound culture on 09/17/21 which was negative for bacterial growth. Wound culture from 07/09/21 positive for Staphylococcus aureus and Streptococcus agalactiae (B). He completed his Augmentin. Encouraged high protein diet to help with wound healing and low carb diet to help keep better control of blood sugars. He states he is not wearing his prosthesis. Encouraged patient to stop smoking as it may have deleterious effects on wound healing. Follow up 1 week. Follow-up sooner or report to the emergency department should new or concerning symptoms arise.
[2022-03-20 08:59] VITALS: BP 146/76; PULSE 78; RESP 16; TEMP 36.1
--- NOTE | 2022-03-20 09:46 | PN.PCM_ITS ---
History of Present Illness Date of Service: 03/20/22 Chief Complaint: Ulcer on left BKA after I&D of a diabetic abscess/hematoma on 11/06/20 History of Wound: Surgery on 11/06/20 - Surgical preparation left below knee amputation stump with incision and drainage and excisional debridement with partial ostectomy tibia for osteomyelitis and evacuation hematoma for draining diabetic ulcer abscess. (He had his Left BKA on 04/17/20). Operative tissue and bone cultures were negative. Wound cultures from 11/02/20 positive for MSSA, Enterobacter cloacae complex, and Corynebacterium amycolatum. Prealbumin 9.9 on 11/07/20. He was evaluated by Dr. Boston on 12/06/21 for an operative debridement and pos sible osteomyelitis. Surgery with Dr. Boston on 12/25/21 for Debridement left lower extremity amputation stump skin, subcutaneous tissue, fascia, bone. Bone culture 12/25/21 - Staphylococcus aureus. Pathology of bone showed dense fibroconnective tissue with reactive changes and foreign body giant cell reaction. Pieces of bone with reactive changes. Wound culture from 09/17/21 showed no growth. Wound culture from 07/09/21 positive for Staphylococcus aureus and Streptococcus agalactiae (B). He was started on Augmentin and a Probiotic. Xray obtained on 10/01/21 of his left BKA stump because of his non healing ulcer. The xray showed bony abnormalities along the lateral aspect of the amputation site of the proximal tibia. Consider further evaluation to exclude osteomyelitis. He obtained this xray at [facility]. MRI obtained 10/31/21, at [facility], of his left BKA which showed Bone edema with contrast enhancement of the tibia consistent with osteomyelitis. Small fluid collection at the distal aspect of the amputated tibia suggestive of small abscess. He has has completed ten applications of Theraskin which did help decrease his ulcer size. 02/25/22-Unroofed the undermining from 9-3 o'clock to make wound care easier. Wound care - He has had 10 applications of Theraskin. Since he has had an operative debridement, he has qualified for Epifix, #7 applied today. He is wearing a stump blend technician for compression. Today he denies any fever. He states his appetite is good. Progress of Wound: Left BKA ulcer is beefy pink and slightly smaller in size. The depth at 12 o'clock has slightly decreased. There is maceration surrounding the ulcer. Patient has been wearing his silicone stump blend technician for compression and it may be preventing air flow to the area. Objective Data Objective Data Vital Signs: Vital Signs Temp Pulse Resp BP O2 Del Method 96.9 F L 78 16 146/76 H Room Air 03/20/22 08:59 03/20/22 08:59 03/20/22 08:59 03/20/22 08:59 03/20/22 08:59 Oxygen Delivery Method Room Air Charges/Coding Procedures Integumentary 150xxx-152xx: 13260 Skin sub graft trnk/arm/leg Debridement Note Debridement Note Wound debrided: BKA stump ulcer Laterality: Left Wound Grade/Stage: StageIV Type of Debridement: Excisional debridement Anesthesia Used: 5% Lidocaine Gel and - (2% lidocaine with epinepherine 2 cc injected into the undermining) Depth: Down to and including healthy tissue and in the subcutaneous layer Percentage of wound debrided: 100 Instrument Used: 3mm curette Tissue Removed: Devitalized tissue and slough Severity: Fat Layer Exposed Amount of bleeding with debridement: Mild Bleeding Controlled with: Compression and gauze and Silver Nitrate Patient tolerated procedure: Patient tolerated procedure well Debridement Free Text: There is some depth at 12 o'clock Post-Debridement Measurements and Additional Note: Post-Debridement Measurements/Treatment - Nurse 1 - General Ulcer Assessment Start: 02/25/22 09:35 Freq: Status: Active Protocol: FREDI.LOWGLORY Activity Type Activity Date Activity User E-sign Co-sign Detail Recorded Client Recorded Date Recorded By Document 02/25/22 09:35 SC [id number] 02/25/22 09:40 AK Document 03/04/22 09:20 SC [id number] 03/04/22 09:26 AK Document 03/11/22 09:26 SC [id number] 03/11/22 09:32 SC Document 03/20/22 08:59 [facility] [id number] 03/20/22 09:01 BM 02/25/22 03/04/22 03/11/22 09:35 09:20 09:26 - Today's Visit Information Type of service Follow-up Visit Follow-up Visit Follow-up Visit (Physician/EXTERMINATOR HELPER (Physician/EXTERMINATOR HELPER (Physician/EXTERMINATOR HELPER ) ) ) Arrival Mode Wheelchair Wheelchair Wheelchair Transfer Assistance Patient Identification Verified (Name & Yes Yes Yes ) Patient Requires Transmission-Based No No No Precautions Safety Precautions NA Vital Signs Temperature (97.8 F-99.1 F) 96.9 F L 97.2 F L 95.9 F L Temperature Source Temporal Temporal Temporal Pulse Rate (60-100) 71 68 74 Pulse Location Monitor Monitor Monitor Respiratory Rate (12-18) Respiratory rate source Oxygen Delivery Method Blood Pressure (90/60-120/80) 157/83 H 151/87 H 146/85 H Blood Pressure Mean (mm Hg) 107 108 105 Source Monitor Monitor Monitor Position Blood Pressure Location History Since Last Visit- (Skip if this is Patient's initial visit) Have you changed medications since your No No No last visit? Any new allergies or adverse reactions No No No Had a fall/change in ADL's that may No No No increase risk of falls Signs or symptoms of abuse and/or No No No neglect since last visit Have you been in the hospital since your No No No last visit? Has dressing in place as prescribed Yes Yes Yes Has compression in place as prescribed Yes Yes N/A Has offloadiing in place as prescribed Yes N/A N/A Experienced any changes in pain level or No No No management Left Footwear Regular Shoe Right Footwear Regular Shoe Regular Shoe Regular Shoe Pain Scale: 0-10 Numeric Is Patient Pain Free? Yes Yes Yes 03/20/22 08:59 WC - Today's Visit Information Type of service Follow-up Visit (Physician/EXTERMINATOR HELPER ) Arrival Mode Wheelchair Transfer Assistance None Patient Identification Verified (Name & Yes ) Patient Requires Transmission-Based No Precautions Safety Precautions Vital Signs Temperature (97.8 F-99.1 F) 96.9 F L Temperature Source Temporal Pulse Rate (60-100) 78 Pulse Location Monitor Respiratory Rate (12-18) 16 Respiratory rate source Observation Oxygen Delivery Method Room Air Blood Pressure (90/60-120/80) 146/76 H Blood Pressure Mean (mm Hg) 99 Source Monitor Position Sitting Blood Pressure Location Left Arm History Since Last Visit- (Skip if this is Patient's initial visit) Have you changed medications since your No last visit? Any new allergies or adverse reactions No Had a fall/change in ADL's that may No increase risk of falls Signs or symptoms of abuse and/or No neglect since last visit Have you been in the hospital since your No last visit? Has dressing in place as prescribed No Has compression in place as prescribed N/A Has offloadiing in place as prescribed N/A Experienced any changes in pain level or No management Left Footwear Right Footwear Pain Scale: 0-10 Numeric Is Patient Pain Free? Yes WC - Nurse 1 - General Ulcer Measurement Start: 02/25/22 09:35 Freq: Status: Active Protocol: Activity Type Activity Date Activity User E-sign Co-sign Detail Recorded Client Recorded Date Recorded By Document 02/25/22 09:35 SC [id number] 02/25/22 09:40 AK Document 03/04/22 09:20 AK [id number] 03/04/22 09:26 AK Document 03/11/22 09:26 AK [id number] 03/11/22 09:32 AK Document 03/20/22 08:59 [facility] [id number] 03/20/22 09:01 BMF 02/25/22 03/04/22 03/11/22 09:35 09:20 09:26 Wound Center Nurse 1 #3 L Stump/Post op -Combined with other wound No No No -Current Size (cm) - Length 0.5 0.5 0.4 -Current Size (cm) - Width 1.6 1.5 0.8 -Current Size (cm) - Depth 0.2 0.4 0.2 -Total Square Cm 0.80 0.75 0.32 -Date of Last Picture (Recall this 02/25/22 03/04/22 03/11/22 field) -Photo Taken Yes Yes No -Epithelialization -Tunneling No No No -Undermining/Tunneling No No No -Circular Undermining No No No -Change in Wound Grade/Stage No No No -Exudate Amt Large Large Medium -Exudate Type Yellow/Green Yellow/Green Yellow/Green -Wound Margin Distinct, Distinct, Distinct, Outline Outline Outline Attached Attached Attached -Granulation Amt Large (67-100%) Medium (34-66%) Medium (34-66%) -Granulation Quality Pale,Laurie Laurie Pale,Laurie -Slough/Fibrin Yes Yes Yes -Necrosis Amt Small (1-33%) Small (1-33%) Small (1-33%) -Necrotic Tissue Type Adherent Slough Adherent Slough Adherent Slough -Structure Exposed N/A N/A N/A -Texture (Yudy-wound Skin Appearance) Assessed, No Abnormality, Assessed, Scarring Assessed Scarring -Moisture (Yudy-wound Skin Appearance) Assessed, Assessed, No Abnormality, Maceration Maceration Assessed -Color (Yudy-wound Skin Appearance) No Abnormality, No Abnormality, No Abnormality, Assessed Assessed Assessed -Temperature (Yudy-wound Skin No Abnormality No Abnormality No Abnormality Appearance) (Pt Warm) (Pt Warm) (Pt Warm) -Tenderness on Palpation (Yudy-wound No No No Skin Appearance) -Ulcer Cleansing Soap and Water Rinsed/ Rinsed/ Irrigated with Irrigated with Saline Saline -Foul Odor after Cleansing No No No -Anesthetic Used 5% Lidocaine 5% Lidocaine 5% Lidocaine Gel Gel Gel 03/20/22 08:59 Wound Center Nurse 1 #3 L Stump/Post op -Combined with other wound No -Current Size (cm) - Length 0.6 -Current Size (cm) - Width 1.4 -Current Size (cm) - Depth 0.2 -Total Square Cm 0.84 -Date of Last Picture (Recall this 03/20/22 field) -Photo Taken Yes -Epithelialization None Present -Tunneling No -Undermining/Tunneling No -Circular Undermining No -Change in Wound Grade/Stage -Exudate Amt Medium -Exudate Type Serosanguineous -Wound Margin Thickened -Granulation Amt Large (67-100%) -Granulation Quality Red -Slough/Fibrin No -Necrosis Amt None Present (0 %) -Necrotic Tissue Type -Structure Exposed -Texture (Yudy-wound Skin Appearance) Assessed, Scarring -Moisture (Yudy-wound Skin Appearance) Assessed -Color (Yudy-wound Skin Appearance) Assessed -Temperature (Yudy-wound Skin No Abnormality Appearance) (Pt Warm) -Tenderness on Palpation (Yudy-wound No Skin Appearance) -Ulcer Cleansing Soap and Water -Foul Odor after Cleansing No -Anesthetic Used 5% Lidocaine Gel WC - Nurse 2 - General Ulcer CM Notes Start: 02/25/22 09:35 Freq: Status: Active Protocol: Activity Type Activity Date Activity User E-sign Co-sign Detail Recorded Client Recorded Date Recorded By Document 02/25/22 10:24 [id number] 02/25/22 10:31 Document 03/04/22 10:17 [id number] 03/04/22 10:24 Document 03/11/22 09:53 [id number] 03/11/22 09:57 Document 03/20/22 09:20 [id number] 03/20/22 09:27 02/25/22 03/04/22 03/11/22 10:24 10:17 09:53 Wound Center Nurse 2 #3 L Stump/Post op -Time 10:24 10:17 09:53 -Correct Patient Yes Yes Yes -Correct Side, Site, Position Yes Yes Yes -Correct Procedure Yes Yes Yes -Procedure Performed Yes Yes Yes -Type of Procedure Debridement Debridement Debridement -Clinical Debridement Subcutaneous Subcutaneous Subcutaneous -Tissue Removed Subcutaneous Subcutaneous Subcutaneous -Post Debridement (cm) - Length 1.0 1.0 0.9 -Post Debridement (cm) - Width 2.0 2.0 1.8 -Post Debridement (cm) - Depth 0.1 0.8 0.5 -Total Square (Post) (cm) 2.00 2.00 1.62 -Area of Debridement (cm) - Length 1.0 1.0 0.9 -Area of Debridement (cm) - Width 2.0 2.0 1.8 -Total Square (Area) (cm) 2.00 2.00 1.62 -Tunneling Yes No No -Tunneling Position (O'clock) 12 -Tunneling Distance (cm) 0.4 -Undermining/Tunneling No No No -Circular Undermining No No No -Wound/Ulcer Outcome Not Healed Not Healed Not Healed -Ulcer Cleansing Rinsed/ Rinsed/ Rinsed/ Irrigated with Irrigated with Irrigated with Saline Saline Saline -Foul Odor after Cleansing No No No -Bioengineered Tissue Yes Yes Yes -Type of Bioengineered Tissue Epifix Epifix Epifix -Expiration Date 10/22/26 10/22/26 10/22/26 -Product Lot Number [id number] -Percent Used 100 100 100 -Lot number of Saline Used [id number] -Bleeding Controlled with Pressure,Silver Pressure Pressure Nitrate -Treatment Response Procedure Procedure Procedure Tolerated Well Tolerated Well Tolerated Well -Offloading No No No -Assistive Device(s) Wheelchair Wheelchair Wheelchair -Debridement - Subq, 1st 20sq cm No No No -Apply Skin Sub - 1st 25 sq cm - Legs 1 1 1 -Epifix (per sq cm) 4 4 4 -Epifix 18mm Disc Pain Scale: 0-10 Numeric Is Patient Pain Free? Yes Yes Yes 03/20/22 09:20 Wound Center Nurse 2 #3 L Stump/Post op -Time 09:20 -Correct Patient Yes -Correct Side, Site, Position Yes -Correct Procedure Yes -Procedure Performed Yes -Type of Procedure Debridement -Clinical Debridement Subcutaneous -Tissue Removed Subcutaneous -Post Debridement (cm) - Length 0.8 -Post Debridement (cm) - Width 1.8 -Post Debridement (cm) - Depth 0.4 -Total Square (Post) (cm) 1.44 -Area of Debridement (cm) - Length 0.8 -Area of Debridement (cm) - Width 1.8 -Total Square (Area) (cm) 1.44 -Tunneling No -Tunneling Position (O'clock) -Tunneling Distance (cm) -Undermining/Tunneling No -Circular Undermining No -Wound/Ulcer Outcome Not Healed -Ulcer Cleansing Rinsed/ Irrigated with Saline -Foul Odor after Cleansing No -Bioengineered Tissue Yes -Type of Bioengineered Tissue Epifix 18mm Disc -Expiration Date 11/22/26 -Product Lot Number [id number] -Percent Used 100 -Lot number of Saline Used [id number] -Bleeding Controlled with Pressure -Treatment Response Procedure Tolerated Well -Offloading No -Assistive Device(s) Wheelchair -Debridement - Subq, 1st 20sq cm No -Apply Skin Sub - 1st 25 sq cm - Legs 1 -Epifix (per sq cm) -Epifix 18mm Disc 3 Pain Scale: 0-10 Numeric Is Patient Pain Free? Yes WC - Nurse 3 - General Ulcer D/C NN Start: 02/25/22 09:35 Freq: Status: Active Protocol: Activity Type Activity Date Activity User E-sign Co-sign Detail Recorded Client Recorded Date Recorded By Document 02/25/22 10:43 DL [id number] 02/25/22 10:44 DL Document 03/04/22 10:29 JF [id number] 03/04/22 10:30 JF Document 03/11/22 10:02 DL [id number] 03/11/22 10:06 DL Document 03/20/22 09:38 [facility] [id number] 03/20/22 09:39 [facility] 02/25/22 03/04/22 03/11/22 10:43 10:29 10:02 Wound Care Nurse 3 #3 L Stump/Post op -Ulcer Cleansing Rinsed/ Irrigated with Saline -Foul Odor after Cleansing No -Primary Dressing Applied Mepilex Border Mepilex Border Mepilex Border -Other Dressing epifix Epifix -Primary Dressing Covered/Secured with Dry Gauze Dry Gauze & Roll Gauze, Secured with Tape -Other Covering -Mepilex Border 1 1 1 Left -Compression Wrap -Other Treatment Response Procedure Procedure Tolerated Well Tolerated Well Pain Scale: 0-10 Numeric Is Patient Pain Free? Yes Yes Yes WC - Visit Discharge Discharge Condition Stable Stable Stable Ambulatory Status Wheelchair Wheelchair Wheelchair Transportation Private Auto Private Auto Private Auto Medication Reconcilliation completed & Yes provided to patient/care provider Clinical Summary of Care Provided Yes Facility Type Home Health Home Health Orders Sent Yes Yes 03/20/22 09:38 Wound Care Nurse 3 #3 L Stump/Post op -Ulcer Cleansing -Foul Odor after Cleansing -Primary Dressing Applied -Other Dressing epifix -Primary Dressing Covered/Secured with Dry Gauze & Roll Gauze, Secured with Tape -Other Covering drsg per dl outside salesman -Mepilex Border Left -Compression Wrap Chalino Wrap -Other per dl outside salesman Treatment Response Procedure Tolerated Well Pain Scale: 0-10 Numeric Is Patient Pain Free? Yes WC - Visit Discharge Discharge Condition Stable Ambulatory Status Wheelchair Transportation Medication Reconcilliation completed & provided to patient/care provider Clinical Summary of Care Provided Facility Type Orders Sent Assessment/Plan Assessment/Plan (1) Pressure ulcer of BKA stump, stage 4: CODE(S): T87.89 - Other complications of amputation stump; L89.894 - Pre ssure ulcer of other site, stage 4 (2) Diabetes mellitus with ulcer of lower extremity: CODE(S): E11.622 - Type 2 diabetes mellitus with other skin ulcer; L97.909 - Non-pressure chronic ulcer of unspecified part of unspecified lower leg with unspecified severity (3) Below-knee amputation of left lower extremity: CODE(S): S88.112A - Complete traumatic amputation at level between knee and ankle, left lower leg, initial encounter (4) Diabetes: CODE(S): E11.9 - Type 2 diabetes mellitus without complications (5) Smoker: CODE(S): F17.200 - Nicotine dependence, unspecified, uncomplicated PLAN: Plan Patient was evaluated at the wound center today. Now that the undermining of the ulcer has been unroofed and is making wound care easier. Wound care - He has completed 10 applications of Theraskin. He has been approved for Epifix. Epifix #7 placed today. 18mm piece [address] on the ulcer and packed into the deeper aspect of the ulcer at 12 o'clock. 100% of the product was used. Covered with wound veil and secured with steri-strips and skin prep and topped with gauze. No longer using Mepilex dressing because of concerns too much moisture is on the yudy wound. He is not to get the ulcer wet. He may change the outer dressing above the wound veil as needed. Compression - CHALINO wrap. Stop wearing stump blend technician because is may be making the yudy wound macerated due to being occlusive. Bone culture 12/25/21 - Staphylococcus aureus. Pathology of bone showed dense fibroconnective tissue with reactive changes and foreign body giant cell reaction. Pieces of bone with reactive changes. I spoke with Dr. Boston and it was decided that we would refer the patient to Dr. Almendarez, ID for further evaluation and treatment, he is receiving IV antibiotic, Cefazolin, for 6 weeks, which he has completed. Obtained a wound culture on 09/17/21 which was negative for bacterial growth. Wound culture from 07/09/21 positive for Staphylococcus aureus and Streptococcus agalactiae (B). He completed his Augmentin. Encouraged high protein diet to help with wound healing and low carb diet to help keep better control of blood sugars. He states he is not wearing his prosthesis. Encouraged patient to stop smoking as it may have deleterious effects on wound healing. Follow up 1 week. Follow-up sooner or report to the emergency department should new or concerning symptoms arise.
== END 2022-03-23 23:59 | disposition home or self-care (01) ==
LOC: WC 09:30
PROVIDERS: PCP Family Medicine; Visit Provider Nurse Practitioner Family
DX: T87.89 Other complications of amputation stump (principal); E11.622 Type 2 diabetes mellitus with other skin ulcer; L98.492 Non-pressure chronic ulcer of skin of other sites with fat layer exposed; F17.200 Nicotine dependence, unspecified, uncomplicated; Y83.5 Amputation of limb(s) as the cause of abnormal reaction of the patient, or of later complication, without mention of misadventure at the time of the procedure
CPT/HCPCS: 15271; Q4186

== ENCOUNTER 2022-04-15 09:00 | Outpatient (RCR) | payer MEDICARE, MEDICAID, SELFPAY ==
[2022-03-24 00:20] VITALS: BP 146/76; PULSE 78; RESP 16; TEMP 36.1
[2022-03-27 09:56] VITALS: BP 130/72; PULSE 72; RESP 18; TEMP 35.2
--- NOTE | 2022-03-27 12:02 | PN.PCM_ITS ---
History of Present Illness Date of Service: 03/27/22 Chief Complaint: Ulcer on left BKA after I&D of a diabetic abscess/hematoma on 11/06/20 History of Wound: Surgery on 11/06/20 - Surgical preparation left below knee amputation stump with incision and drainage and excisional debridement with partial ostectomy tibia for osteomyelitis and evacuation hematoma for draining diabetic ulcer abscess. (He had his Left BKA on 04/17/20). Operative tissue and bone cultures were negative. Wound cultures from 11/02/20 positive for MSSA, Enterobacter cloacae complex, and Corynebacterium amycolatum. Prealbumin 9.9 on 11/07/20. He was evaluated by Dr. Boston on 12/06/21 for an operative debridement and pos sible osteomyelitis. Surgery with Dr. Boston on 12/25/21 for Debridement left lower extremity amputation stump skin, subcutaneous tissue, fascia, bone. Bone culture 12/25/21 - Staphylococcus aureus. Pathology of bone showed dense fibroconnective tissue with reactive changes and foreign body giant cell reaction. Pieces of bone with reactive changes. Wound culture from 09/17/21 showed no growth. Wound culture from 07/09/21 positive for Staphylococcus aureus and Streptococcus agalactiae (B). He was started on Augmentin and a Probiotic. Xray obtained on 10/01/21 of his left BKA stump because of his non healing ulcer. The xray showed bony abnormalities along the lateral aspect of the amputation site of the proximal tibia. Consider further evaluation to exclude osteomyelitis. He obtained this xray at [facility]. MRI obtained 10/31/21, at [facility], of his left BKA which showed Bone edema with contrast enhancement of the tibia consistent with osteomyelitis. Small fluid collection at the distal aspect of the amputated tibia suggestive of small abscess. He has has completed ten applications of Theraskin which did help decrease his ulcer size. 02/25/22-Unroofed the undermining from 9-3 o'clock to make wound care easier. Wound care - He has had 10 applications of Theraskin. Since he has had an operative debridement, he has qualified for Epifix, #8 applied today. He is wearing a stump assisted living executive director for compression. Today he denies any fever. He states his appetite is good. Progress of Wound: Left BKA ulcer is beefy pink and slightly smaller in size. The depth at 12 o'clock has decreased. The maceration surrounding the ulcer has improved since the patient has stopped wearing his silicone stump assisted living executive director for compression. Objective Data Objective Data Vital Signs: Vital Signs Temp Pulse Resp BP 95.3 F L 72 18 130/72 H 03/27/22 09:56 03/27/22 09:56 03/27/22 09:56 03/27/22 09:56 Charges/Coding Procedures Integumentary 150xxx-152xx: 50660 Skin sub graft trnk/arm/leg Debridement Note Debridement Note Wound debrided: BKA stump ulcer Laterality: Left Wound Grade/Stage: StageIV Type of Debridement: Excisional debridement Anesthesia Used: 5% Lidocaine Gel and - (2% lidocaine with epinepherine 2 cc injected into the undermining) Depth: Down to and including healthy tissue and in the subcutaneous layer Percentage of wound debrided: 100 Instrument Used: 3mm curette Tissue Removed: Devitalized tissue and slough Severity: Fat Layer Exposed Amount of bleeding with debridement: Mild Bleeding Controlled with: Compression and gauze and Silver Nitrate Patient tolerated procedure: Patient tolerated procedure well Debridement Free Text: There is some depth at 12 o'clock Post-Debridement Measurements and Additional Note: Post-Debridement Measurements/Treatment - Nurse 1 - General Ulcer Assessment Start: 03/27/22 09:56 Freq: Status: Active Protocol: ARLETH Activity Type Activity Date Activity User E-sign Co-sign Detail Recorded Client Recorded Date Recorded By Document 03/27/22 09:56 [id number] 03/27/22 10:04 03/27/22 09:56 - Today's Visit Information Type of service Follow-up Visit (Physician/ART THERAPIST ) Arrival Mode Ambulatory Transfer Assistance None Patient Identification Verified (Name & Yes ) Patient Requires Transmission-Based No Precautions Vital Signs Temperature (97.8 F-99.1 F) 95.3 F L Temperature Source Temporal Pulse Rate (60-100) 72 Pulse Location Monitor Respiratory Rate (12-18) 18 Respiratory rate source Observation Blood Pressure (90/60-120/80) 130/72 H Blood Pressure Mean (mm Hg) 91 Source Monitor Position Semi-Fowlers Blood Pressure Location Left Arm History Since Last Visit- (Skip if this is Patient's initial visit) Have you changed medications since your No last visit? Any new allergies or adverse reactions No Had a fall/change in ADL's that may No increase risk of falls Signs or symptoms of abuse and/or No neglect since last visit Have you been in the hospital since your No last visit? Has dressing in place as prescribed Yes Has compression in place as prescribed Yes Has offloadiing in place as prescribed No Experienced any changes in pain level or No management Pain Scale: 0-10 Numeric Is Patient Pain Free? Yes WC - Nurse 1 - General Ulcer Measurement Start: 03/27/22 09:56 Freq: Status: Active Protocol: Activity Type Activity Date Activity User E-sign Co-sign Detail Recorded Client Recorded Date Recorded By Document 03/27/22 09:56 RB [id number] 03/27/22 10:04 RB 03/27/22 09:56 Wound Center Nurse 1 #3 L Stump/Post op -Combined with other wound No -Current Size (cm) - Length 0.7 -Current Size (cm) - Width 1.5 -Current Size (cm) - Depth 0.3 -Total Square Cm 1.05 -Photo Taken Yes -Tunneling No -Undermining/Tunneling No -Circular Undermining No -Exudate Amt Medium -Exudate Type Serosanguineous -Wound Margin Thickened & Rolled Under -Granulation Amt Medium (34-66%) -Granulation Quality [place] -Slough/Fibrin Yes -Necrosis Amt Medium (34-66%) -Necrotic Tissue Type Adherent Slough -Structure Exposed N/A -Texture (Yudy-wound Skin Appearance) Scarring -Moisture (Yudy-wound Skin Appearance) Assessed -Color (Yudy-wound Skin Appearance) Assessed -Temperature (Yudy-wound Skin No Abnormality Appearance) (Pt Warm) -Tenderness on Palpation (Yudy-wound No Skin Appearance) -Ulcer Cleansing Wound Cleanser -Foul Odor after Cleansing No -Anesthetic Used 5% Lidocaine Gel - Nurse 2 - General Ulcer CM Notes Start: 03/27/22 09:56 Freq: Status: Active Protocol: Activity Type Activity Date Activity User E-sign Co-sign Detail Recorded Client Recorded Date Recorded By Document 03/27/22 10:24 MARSHALL [id number] 03/27/22 10:26 MARSHALL 03/27/22 10:24 Wound Center Nurse 2 -Time 10:24 -Correct Patient Yes -Correct Side, Site, Position Yes -Correct Procedure Yes -Procedure Performed Yes -Type of Procedure Debridement -Clinical Debridement Subcutaneous -Tissue Removed Subcutaneous -Post Debridement (cm) - Length 0.8 -Post Debridement (cm) - Width 1.9 -Post Debridement (cm) - Depth 0.3 -Total Square (Post) (cm) 1.52 -Area of Debridement (cm) - Length 0.8 -Area of Debridement (cm) - Width 1.9 -Total Square (Area) (cm) 1.52 -Tunneling No -Undermining/Tunneling No -Circular Undermining No -Wound/Ulcer Outcome Not Healed -Ulcer Cleansing Not Cleansed -Foul Odor after Cleansing No -Bioengineered Tissue Yes -Type of Bioengineered Tissue Epifix 18mm Disc -Expiration Date 11/22/26 -Product Lot Number [id number] -Percent Used 100 -Lot number of Saline Used [id number] -Bleeding Controlled with Pressure -Treatment Response Procedure Tolerated Well -Offloading No -Assistive Device(s) Wheelchair -Debridement - Subq, 1st 20sq cm No -Apply Skin Sub - 1st 25 sq cm - Legs 1 -Epifix 18mm Disc 3 Pain Scale: 0-10 Numeric Is Patient Pain Free? Yes - Nurse 3 - General Ulcer D/C NN Start: 03/27/22 09:56 Freq: Status: Active Protocol: Activity Type Activity Date Activity User E-sign Co-sign Detail Recorded Client Recorded Date Recorded By Document 03/27/22 10:39 [facility] [id number] 03/27/22 10:40 [facility] 03/27/22 10:39 Wound Care Nurse 3 #3 L Stump/Post op -Other Dressing EPIFIX -Primary Dressing Covered/Secured with Dry Gauze, Secured with Tape Treatment Response Procedure Tolerated Well Pain Scale: 0-10 Numeric Is Patient Pain Free? Yes - Visit Discharge Discharge Condition Stable Ambulatory Status Wheelchair Transportation Private Auto Assessment/Plan Assessment/Plan (1) Pressure ulcer of BKA stump, stage 4: CODE(S): T87.89 - Other complications of amputation stump; L89.894 - Pressure ulcer of other site, stage 4 (2) Diabetes mellitus with ulcer of lower extremity: CODE(S): E11.622 - Type 2 diabetes mellitus with other skin ulcer; L97.909 - Non-pressure chronic ulcer of unspecified part of unspecified lower leg with unspecified severity (3) Below-knee amputation of left lower extremity: CODE(S): S88.112A - Complete traumatic amputation at level between knee and ankle, left lower leg, initial encounter (4) Diabetes: CODE(S): E11.9 - Type 2 diabetes mellitus without complications (5) Smoker: CODE(S): F17.200 - Nicotine dependence, unspecified, uncomplicated PLAN: Plan Patient was evaluated at the wound center today. Now that the undermining of the ulcer has been unroofed and is making wound care easier. Wound care - He has completed 10 applications of Theraskin. He has been approved for Epifix. Epifix #[address] placed today[address] 18[address] piece place on the ulcer and packed into the deeper aspect of the ulcer at 12 o'clock. 100% of the product was used. Covered with wound veil and secured with steri-strips and skin prep and topped with gauze. No longer using Mepilex dressing because of concerns too much moisture is on the yudy wound. He is not to get the ulcer wet. He may change the outer dressing above the wound veil as needed. Compression - AMIE wrap. He has stopped wearing his stump assisted living executive director because is may be making the yudy wound macerated due to being occlusive. Bone culture 12/25/21 - Staphylococcus aureus. Pathology of bone showed dense fibroconnective tissue with reactive changes and foreign body giant cell reaction. Pieces of bone with reactive changes. I spoke with Dr. Boston and it was decided that we would refer the patient to Dr. Almendarez, ID for further evaluation and treatment, he is received IV antibiotic, Cefazolin, for 6 weeks, whichis now completed. Obtained a wound culture on 09/17/21 which was negative for bacterial growth. Wound culture from 07/09/21 positive for Staphylococcus aureus and Streptococcus agalactiae (B). He completed his Augmentin. Encouraged high protein diet to help with wound healing and low carb diet to help keep better control of blood sugars. He states he is not wearing his prosthesis. Encouraged patient to stop smoking as it may have deleterious effects on wound healing. Follow up 1 week. Follow-up sooner or report to the emergency department should new or concerning symptoms arise.
[2022-04-01 08:54] VITALS: BP 156/90; PULSE 63; RESP 16; TEMP 35
--- NOTE | 2022-04-01 12:22 | PCM.WC.PN ---
History of Present Illness Date of Service: 04/01/22 Chief Complaint: Ulcer on left BKA after I&D of a diabetic abscess/hematoma on 11/06/20 History of Wound: Surgery on 11/06/20 - Surgical preparation left below knee amputation stump with incision and drainage and excisional debridement with partial ostectomy tibia for osteomyelitis and evacuation hematoma for draining diabetic ulcer abscess. (He had his Left BKA on 04/17/20). Operative tissue and bone cultures were negative. Wound cultures from 11/02/20 positive for MSSA, Enterobacter cloacae complex, and Corynebacterium amycolatum. Prealbumin 9.9 on 11/07/20. He was evaluated by Dr. Boston on 12/06/21 for an operative debridement and possible osteomyelitis. Surgery with Dr. Boston on 12/25/21 for Debridement left lower extremity amputation stump skin, subcutaneous tissue, fascia, bone. Bone culture 12/25/21 - Staphylococcus aureus. Pathology of bone showed dense fibroconnective tissue with reactive changes and foreign body giant cell reaction. Pieces of bone with reactive changes. Wound culture from 09/17/21 showed no growth. Wound culture from 07/09/21 positive for Staphylococcus aureus and Streptococcus agalactiae (B). He was started on Augmentin and a Probiotic. Xray obtained on 10/01/21 of his left BKA stump because of his non healing ulcer. The xray showed bony abnormalities along the lateral aspect of the amputation site of the proximal tibia. Consider further evaluation to exclude osteomyelitis. He obtained this xray at [facility]. MRI obtained 10/31/21, at [facility], of his left BKA which showed Bone edema with contrast enhancement of the tibia consistent with osteomyelitis. Small fluid collection at the distal aspect of the amputated tibia suggestive of small abscess. He has has completed ten applications of Theraskin which did help decrease his ulcer size. 02/25/22-Unroofed the undermining from 9-3 o'clock to make wound care easier. Wound care - He has had 10 applications of Theraskin. Since he has had an operative debridement, he has qualified for Epifix, #9 applied today. He is wearing a stump retail business analyst for compression. Today he denies any fever. He states his appetite is good. Progress of Wound: Left BKA ulcer is beefy pink and slightly smaller in size. The depth at 12 o'clock has decreased. The maceration surrounding the ulcer has improved since the patient has stopped wearing his silicone stump retail business analyst for compression. Objective Data Objective Data Vital Signs: Vital Signs Temp Pulse Resp BP 95.0 F L 63 16 156/90 H 04/01/22 08:54 04/01/22 08:54 04/01/22 08:54 04/01/22 08:54 Charges/Coding Procedures Integumentary 150xxx-152xx: 97983 Skin sub graft trnk/arm/leg Debridement Note Debridement Note Wound debrided: BKA stump ulcer Laterality: Left Wound Grade/Stage: StageIV Type of Debridement: Excisional debridement Anesthesia Used: 5% Lidocaine Gel and - (2% lidocaine with epinepherine 2 cc injected into the undermining) Depth: Down to and including healthy tissue and in the subcutaneous layer Percentage of wound debrided: 100 Instrument Used: 3mm curette Tissue Removed: Devitalized tissue and slough Severity: Fat Layer Exposed Amount of bleeding with debridement: Mild Bleeding Controlled with: Compression and gauze and Silver Nitrate Patient tolerated procedure: Patient tolerated procedure well Debridement Free Text: There is some depth at 12 o'clock Post-Debridement Measurements and Additional Note: Post-Debridement Measurements/Treatment - Nurse 1 - General Ulcer Assessment Start: 03/27/22 09:56 Freq: Status: Active Protocol: ARLETH Activity Type Activity Date Activity User E-sign Co-sign Detail Recorded Client Recorded Date Recorded By Document 03/27/22 09:56 RB [id number] 03/27/22 10:04 RB Document 04/01/22 08:54 JF [id number] 04/01/22 08:56 JF 03/27/22 04/01/22 09:56 08:54 - Today's Visit Information Type of service Follow-up Visit Follow-up Visit (Physician/STRAP MAKER (Physician/STRAP MAKER ) ) Arrival Mode Ambulatory Wheelchair Transfer Assistance None Other Transfer Assist (Other) transfers himself Patient Identification Verified (Name & Yes Yes ) Patient Requires Transmission-Based No No Precautions Vital Signs Temperature (97.8 F-99.1 F) 95.3 F L 95.0 F L Temperature Source Temporal Temporal Pulse Rate (60-100) 72 63 Pulse Location Monitor Monitor Respiratory Rate (12-18) 18 16 Respiratory rate source Observation Ausculation Blood Pressure (90/60-120/80) 130/72 H 156/90 H Blood Pressure Mean (mm Hg) 91 112 Source Monitor Monitor Position Semi-Fowlers Semi-Fowlers Blood Pressure Location Left Arm Left Arm History Since Last Visit- (Skip if this is Patient's initial visit) Have you changed medications since your No No last visit? Any new allergies or adverse reactions No No Had a fall/change in ADL's that may No No increase risk of falls Signs or symptoms of abuse and/or No No neglect since last visit Have you been in the hospital since your No No last visit? Has dressing in place as prescribed Yes Yes Has compression in place as prescribed Yes N/A Has offloadiing in place as prescribed No Yes Experienced any changes in pain level or No No management Left Footwear No Footwear Right Footwear Regular Shoe Pain Scale: 0-10 Numeric Is Patient Pain Free? Yes Yes WC - Nurse 1 - General Ulcer Measurement Start: 03/27/22 09:56 Freq: Status: Active Protocol: Activity Type Activity Date Activity User E-sign Co-sign Detail Recorded Client Recorded Date Recorded By Document 03/27/22 09:56 RB [id number] 03/27/22 10:04 RB Document 04/01/22 08:54 [id number] 04/01/22 08:56 03/27/22 04/01/22 09:56 08:54 Wound Center Nurse 1 #3 L Stump/Post op -Combined with other wound No No -Current Size (cm) - Length 0.7 0.6 -Current Size (cm) - Width 1.5 1.6 -Current Size (cm) - Depth 0.3 0.5 -Total Square Cm 1.05 0.96 -Photo Taken Yes Yes -Epithelialization Medium 34-66% -Tunneling No No -Undermining/Tunneling No No -Circular Undermining No No -Exudate Amt Medium Small -Exudate Type Serosanguineous Serosanguineous -Wound Margin Thickened & Thickened & Rolled Under Rolled Under -Granulation Amt Medium (34-66%) Large (67-100%) -Granulation Quality [place] Red -Slough/Fibrin Yes Yes -Necrosis Amt Medium (34-66%) Small (1-33%) -Necrotic Tissue Type Adherent Slough Adherent Slough -Structure Exposed N/A N/A -Texture (Yudy-wound Skin Appearance) Scarring Assessed -Moisture (Yudy-wound Skin Appearance) Assessed Assessed,Dry/ Scaly -Color (Yudy-wound Skin Appearance) Assessed Assessed -Temperature (Yudy-wound Skin No Abnormality No Abnormality Appearance) (Pt Warm) (Pt Warm) -Tenderness on Palpation (Yudy-wound No No Skin Appearance) -Ulcer Cleansing Wound Cleanser Soap and Water -Foul Odor after Cleansing No -Anesthetic Used 5% Lidocaine 5% Lidocaine Gel Gel Lower Limb Edema Present NA WC - Nurse 2 - General Ulcer CM Notes Start: 03/27/22 09:56 Freq: Status: Active Protocol: Activity Type Activity Date Activity User E-sign Co-sign Detail Recorded Client Recorded Date Recorded By Document 03/27/22 10:24 [id number] 03/27/22 10:26 Document 04/01/22 09:27 [id number] 04/01/22 09:29 03/27/22 04/01/22 10:24 09:27 Wound Center Nurse 2 #3 L Stump/Post op -Time 10:24 09:27 -Correct Patient Yes Yes -Correct Side, Site, Position Yes Yes -Correct Procedure Yes Yes -Procedure Performed Yes Yes -Type of Procedure Debridement Debridement -Clinical Debridement Subcutaneous Subcutaneous -Tissue Removed Subcutaneous Subcutaneous -Post Debridement (cm) - Length 0.8 0.7 -Post Debridement (cm) - Width 1.9 2.0 -Post Debridement (cm) - Depth 0.3 0.4 -Total Square (Post) (cm) 1.52 1.40 -Area of Debridement (cm) - Length 0.8 0.7 -Area of Debridement (cm) - Width 1.9 2.0 -Total Square (Area) (cm) 1.52 1.40 -Tunneling No No -Undermining/Tunneling No No -Circular Undermining No No -Wound/Ulcer Outcome Not Healed Not Healed -Ulcer Cleansing Not Cleansed Rinsed/ Irrigated with Saline -Foul Odor after Cleansing No No -Bioengineered Tissue Yes Yes -Type of Bioengineered Tissue Epifix 18mm Epifix 18mm Disc Disc -Expiration Date 11/22/26 11/22/26 -Product Lot Number [id number] -Percent Used 100 100 -Lot number of Saline Used [id number] -Bleeding Controlled with Pressure Pressure -Treatment Response Procedure Procedure Tolerated Well Tolerated Well -Offloading No No -Assistive Device(s) Wheelchair Wheelchair -Debridement - Subq, 1st 20sq cm No No -Apply Skin Sub - 1st 25 sq cm - Legs 1 1 -Epifix 18mm Disc 3 3 Pain Scale: 0-10 Numeric Is Patient Pain Free? Yes Yes - Nurse 3 - General Ulcer D/C NN Start: 03/27/22 09:56 Freq: Status: Active Protocol: Activity Type Activity Date Activity User E-sign Co-sign Detail Recorded Client Recorded Date Recorded By Document 03/27/22 10:39 [facility] [id number] 03/27/22 10:40 [facility] Document 04/01/22 09:31 [id number] 04/01/22 09:32 03/27/22 04/01/22 10:39 09:31 Wound Care Nurse 3 #3 L Stump/Post op -Ulcer Cleansing Rinsed/ Irrigated with Saline -Foul Odor after Cleansing No -Other Dressing EPIFIX -Primary Dressing Covered/Secured with Dry Gauze, Dry Gauze, Secured with Secured with Tape Tape Treatment Response Procedure Tolerated Well Pain Scale: 0-10 Numeric Is Patient Pain Free? Yes Yes - Visit Discharge Discharge Condition Stable Stable Ambulatory Status Wheelchair Wheelchair Transportation Private Auto Private Auto Medication Reconcilliation completed & Yes provided to patient/care provider Clinical Summary of Care Provided Yes Assessment/Plan Assessment/Plan (1) Pressure ulcer of BKA stump, stage 4: CODE(S): T87.89 - Other complications of amputation stump; L89.894 - Pressure ulcer of other site, stage 4 (2) Diabetes mellitus with ulcer of lower extremity: CODE(S): E11.622 - Type 2 diabetes mellitus with other skin ulcer; L97.909 - Non-pressure chronic ulcer of unspecified part of unspecified lower leg with unspecified severity (3) Below-knee amputation of left lower extremity: CODE(S): S88.112A - Complete traumatic amputation at level between knee and ankle, left lower leg, initial encounter (4) Diabetes: CODE(S): E11.9 - Type 2 diabetes mellitus without complications (5) Smoker: CODE(S): F17.200 - Nicotine dependence, unspecified, uncomplicated PLAN: Plan Patient was evaluated at the wound center today. Now that the undermining of the ulcer has been unroofed and is making wound care easier. Wound care - He has completed 10 applications of Theraskin. He has been approved for Epifix. Epifix #9 placed today. 18[address] on the ulcer and packed into the deeper aspect of the ulcer at 12 o'clock. 100% of the product was used. Covered with wound veil and secured with steri-strips and skin prep and topped with gauze. He may change the outer dressing above the wound veil as needed. Compression - AMIE wrap. He has stopped wearing his silicone stump retail business analyst because is may be making the yudy wound macerated due to being occlusive. Bone culture 12/25/21 - Staphylococcus aureus. Pathology of bone showed dense fibroconnective tissue with reactive changes and foreign body giant cell reaction. Pieces of bone with reactive changes. I spoke with Dr. Boston and it was decided that we would refer the patient to Dr. Almendarez, ID for further evaluation and treatment, he is received IV antibiotic, Cefazolin, for 6 weeks, whichis now completed. Obtained a wound culture on 09/17/21 which was negative for bacterial growth. Wound culture from 07/09/21 positive for Staphylococcus aureus and Streptococcus agalactiae (B). He completed his Augmentin. Encouraged high protein diet to help with wound healing and low carb diet to help keep better control of blood sugars. He states he is not wearing his prosthesis. Encouraged patient to stop smoking as it may have deleterious effects on wound healing. Follow up 1 week. Follow-up sooner or report to the emergency department should new or concerning symptoms arise.
[2022-04-08 08:29] VITALS: BP 158/64; PULSE 56; TEMP 36.2
--- NOTE | 2022-04-08 15:11 | PN.PCM_ITS ---
History of Present Illness Date of Service: 04/08/22 Chief Complaint: Ulcer on left BKA after I&D of a diabetic abscess/hematoma on 11/06/20 History of Wound: Surgery on 11/06/20 - Surgical preparation left below knee amputation stump with incision and drainage and excisional debridement with partial ostectomy tibia for osteomyelitis and evacuation hematoma for draining diabetic ulcer abscess. (He had his Left BKA on 04/17/20). Operative tissue and bone cultures were negative. Wound cultures from 11/02/20 positive for MSSA, Enterobacter cloacae complex, and Corynebacterium amycolatum. Prealbumin 9.9 on 11/07/20. He was evaluated by Dr. Boston on 12/06/21 for an operative debridement and pos sible osteomyelitis. Surgery with Dr. Boston on 12/25/21 for Debridement left lower extremity amputation stump skin, subcutaneous tissue, fascia, bone. Bone culture 12/25/21 - Staphylococcus aureus. Pathology of bone showed dense fibroconnective tissue with reactive changes and foreign body giant cell reaction. Pieces of bone with reactive changes. Wound culture from 09/17/21 showed no growth. Wound culture from 07/09/21 positive for Staphylococcus aureus and Streptococcus agalactiae (B). He was started on Augmentin and a Probiotic. Xray obtained on 10/01/21 of his left BKA stump because of his non healing ulcer. The xray showed bony abnormalities along the lateral aspect of the amputation site of the proximal tibia. Consider further evaluation to exclude osteomyelitis. He obtained this xray at [facility]. MRI obtained 10/31/21, at [facility], of his left BKA which showed Bone edema with contrast enhancement of the tibia consistent with osteomyelitis. Small fluid collection at the distal aspect of the amputated tibia suggestive of small abscess. He has has completed ten applications of Theraskin which did help decrease his ulcer size. 02/25/22-Unroofed the undermining from 9-3 o'clock to make wound care easier. Wound care - He has had 10 applications of Theraskin. Since he has had an operative debridement, he has qualified for Epifix, #10 applied today. He is wearing a stump bulk station agent for compression. Today he denies any fever. He states his appetite is good. Progress of Wound: Left BKA ulcer is beefy pink and smaller in size and the depth at 12 o'clock has decreased. Objective Data Objective Data Vital Signs: Vital Signs Temp Pulse Resp BP 97.1 F L 56 L 16 158/64 H 04/08/22 08:29 04/08/22 08:29 04/01/22 08:54 04/08/22 08:29 Charges/Coding Procedures Integumentary 150xxx-152xx: [id number] Skin sub graft trnk/arm/leg Debridement Note Debridement Note Wound debrided: BKA stump ulcer Laterality: Left Wound Grade/Stage: StageIV Type of Debridement: Excisional debridement Anesthesia Used: 5% Lidocaine Gel and - (2% lidocaine with epinepherine 2 cc injected into the undermining) Depth: Down to and including healthy tissue and in the subcutaneous layer Percentage of wound debrided: 100 Instrument Used: 3mm curette Tissue Removed: Devitalized tissue and slough Severity: Fat Layer Exposed Amount of bleeding with debridement: Mild Bleeding Controlled with: Compression and gauze and Silver Nitrate Patient tolerated procedure: Patient tolerated procedure well Debridement Free Text: There is some depth at 12 o'clock but it is improving Post-Debridement Measurements and Additional Note: Post-Debridement Measurements/Treatment - Nurse 1 - General Ulcer Assessment Start: 03/27/22 09:56 Freq: Status: Active Protocol: ARLETH Activity Type Activity Date Activity User E-sign Co-sign Detail Recorded Client Recorded Date Recorded By Document 03/27/22 09:56 RB [id number] 03/27/22 10:04 RB Document 04/01/22 08:54 [id number] 04/01/22 08:56 Document 04/08/22 08:29 AK Desktop 04/08/22 08:33 AK 03/27/22 04/01/22 04/08/22 09:56 08:54 08:29 - Today's Visit Information Type of service Follow-up Visit Follow-up Visit Follow-up Visit (Physician/WOOD HACKER (Physician/WOOD HACKER (Physician/WOOD HACKER ) ) ) Arrival Mode Ambulatory Wheelchair Wheelchair Transfer Assistance None Other Transfer Assist (Other) transfers himself Patient Identification Verified (Name & Yes Yes Yes ) Patient Requires Transmission-Based No No Precautions Vital Signs Temperature (97.8 F-99.1 F) 95.3 F L 95.0 F L 97.1 F L Temperature Source Temporal Temporal Temporal Pulse Rate (60-100) 72 63 56 L Pulse Location Monitor Monitor Monitor Respiratory Rate (12-18) 18 16 Respiratory rate source Observation Ausculation Blood Pressure (90/60-120/80) 130/72 H 156/90 H 158/64 H Blood Pressure Mean (mm Hg) 91 112 95 Source Monitor Monitor Monitor Position Semi-Fowlers Semi-Fowlers Blood Pressure Location Left Arm Left Arm History Since Last Visit- (Skip if this is Patient's initial visit) Have you changed medications since your No No No last visit? Any new allergies or adverse reactions No No No Had a fall/change in ADL's that may No No No increase risk of falls Signs or symptoms of abuse and/or No No No neglect since last visit Have you been in the hospital since your No No No last visit? Has dressing in place as prescribed Yes Yes Yes Has compression in place as prescribed Yes N/A N/A Has offloadiing in place as prescribed No Yes N/A Experienced any changes in pain level or No No No management Left Footwear No Footwear Other Footwear (Comment) Right Footwear Regular Shoe Regular Shoe Pain Scale: 0-10 Numeric Is Patient Pain Free? Yes Yes Yes WC - Nurse 1 - General Ulcer Measurement Start: 03/27/22 09:56 Freq: Status: Active Protocol: Activity Type Activity Date Activity User E-sign Co-sign Detail Recorded Client Recorded Date Recorded By Document 03/27/22 09:56 RB [id number] 03/27/22 10:04 RB Document 04/01/22 08:54 [id number] 04/01/22 08:56 JF Document 04/08/22 08:29 AK Desktop 04/08/22 08:33 AK 03/27/22 04/01/22 04/08/22 09:56 08:54 08:29 Wound Center Nurse 1 #3 L Stump/Post op -Combined with other wound No No No -Current Size (cm) - Length 0.7 0.6 0.5 -Current Size (cm) - Width 1.5 1.6 1.5 -Current Size (cm) - Depth 0.3 0.5 0.1 -Total Square Cm 1.05 0.96 0.75 -Date of Last Picture (Recall this 04/08/22 field) -Photo Taken Yes Yes Yes -Epithelialization Medium 34-66% -Tunneling No No No -Undermining/Tunneling No No No -Circular Undermining No No No -Change in Wound Grade/Stage No -Exudate Amt Medium Small Medium -Exudate Type Serosanguineous Serosanguineous Serosanguineous -Wound Margin Thickened & Thickened & Distinct, Rolled Under Rolled Under Outline Attached -Granulation Amt Medium (34-66%) Large (67-100%) Large (67-100%) -Granulation Quality [place] Red Pale,[place] -Slough/Fibrin Yes Yes No -Necrosis Amt Medium (34-66%) Small (1-33%) None Present (0 %) -Necrotic Tissue Type Adherent Slough Adherent Slough -Structure Exposed N/A N/A N/A -Texture (Yudy-wound Skin Appearance) Scarring Assessed Assessed, Scarring -Moisture (Yudy-wound Skin Appearance) Assessed Assessed,Dry/ Assessed, Scaly Maceration -Color (Yudy-wound Skin Appearance) Assessed Assessed No Abnormality, Assessed -Temperature (Yudy-wound Skin No Abnormality No Abnormality No Abnormality Appearance) (Pt Warm) (Pt Warm) (Pt Warm) -Tenderness on Palpation (Yudy-wound No No No Skin Appearance) -Ulcer Cleansing Wound Cleanser Soap and Water Soap and Water -Foul Odor after Cleansing No No -Anesthetic Used 5% Lidocaine 5% Lidocaine 5% Lidocaine Gel Gel Gel Lower Limb Edema Present NA WC - Nurse 2 - General Ulcer CM Notes Start: 03/27/22 09:56 Freq: Status: Active Protocol: Activity Type Activity Date Activity User E-sign Co-sign Detail Recorded Client Recorded Date Recorded By Document 03/27/22 10:24 [id number] 03/27/22 10:26 Document 04/01/22 09:27 MARSHALL [id number] 04/01/22 09:29 Document 04/08/22 09:05 [id number] 04/08/22 09:06 03/27/22 04/01/22 04/08/22 10:24 09:27 09:05 Wound Center Nurse 2 #3 L Stump/Post op -Time 10:24 09:27 09:05 -Correct Patient Yes Yes Yes -Correct Side, Site, Position Yes Yes Yes -Correct Procedure Yes Yes Yes -Procedure Performed Yes Yes Yes -Type of Procedure Debridement Debridement Debridement -Clinical Debridement Subcutaneous Subcutaneous Subcutaneous -Tissue Removed Subcutaneous Subcutaneous Subcutaneous -Post Debridement (cm) - Length 0.8 0.7 0.7 -Post Debridement (cm) - Width 1.9 2.0 1.8 -Post Debridement (cm) - Depth 0.3 0.4 0.2 -Total Square (Post) (cm) 1.52 1.40 1.26 -Area of Debridement (cm) - Length 0.8 0.7 0.7 -Area of Debridement (cm) - Width 1.9 2.0 1.8 -Total Square (Area) (cm) 1.52 1.40 1.26 -Tunneling No No No -Undermining/Tunneling No No No -Circular Undermining No No No -Wound/Ulcer Outcome Not Healed Not Healed Not Healed -Ulcer Cleansing Not Cleansed Rinsed/ Rinsed/ Irrigated with Irrigated with Saline Saline -Foul Odor after Cleansing No No No -Bioengineered Tissue Yes Yes Yes -Type of Bioengineered Tissue Epifix 18mm Epifix 18mm Epifix 18mm Disc Disc Disc -Expiration Date 11/22/26 11/22/26 12/22/26 -Product Lot Number [id number] -Percent Used 100 100 100 -Lot number of Saline Used [id number] -Bleeding Controlled with Pressure Pressure Pressure -Treatment Response Procedure Procedure Procedure Tolerated Well Tolerated Well Tolerated Well -Offloading No No No -Assistive Device(s) Wheelchair Wheelchair Wheelchair -Debridement - Subq, 1st 20sq cm No No No -Apply Skin Sub - 1st 25 sq cm - Legs 1 1 1 -Epifix 18mm Disc 3 3 3 Pain Scale: 0-10 Numeric Is Patient Pain Free? Yes Yes Yes WC - Nurse 3 - General Ulcer D/C NN Start: 03/27/22 09:56 Freq: Status: Active Protocol: Activity Type Activity Date Activity User E-sign Co-sign Detail Recorded Client Recorded Date Recorded By Document 03/27/22 10:39 BMF [id number] 03/27/22 10:40 BMF Document 04/01/22 09:31 JF [id number] 04/01/22 09:32 JF Document 04/08/22 09:13 DL [id number] 04/08/22 09:15 DL 03/27/22 04/01/22 04/08/22 10:39 09:31 09:13 Wound Care Nurse 3 #3 L Stump/Post op -Ulcer Cleansing Rinsed/ Irrigated with Saline -Foul Odor after Cleansing No No -Other Dressing EPIFIX EpiFix/Veil/ SteriStripped -Primary Dressing Covered/Secured with Dry Gauze, Dry Gauze, Dry Gauze & Secured with Secured with Roll Gauze, Tape Tape Secured with Tape Treatment Response Procedure Procedure Tolerated Well Tolerated Well Pain Scale: 0-10 Numeric Is Patient Pain Free? Yes Yes Yes WC - Visit Discharge Discharge Condition Stable Stable Stable Ambulatory Status Wheelchair Wheelchair Wheelchair Transportation Private Auto Private Auto Private Auto Medication Reconcilliation completed & Yes provided to patient/care provider Clinical Summary of Care Provided Yes Assessment/Plan Assessment/Plan (1) Pressure ulcer of BKA stump, stage 4: CODE(S): T87.89 - Other complications of amputation stump; L89.894 - Pressure ulcer of other site, stage 4 (2) Diabetes mellitus with ulcer of lower extremity: CODE(S): E11.622 - Type 2 diabetes mellitus with other skin ulcer; L97.909 - Non-pressure chronic ulcer of unspecified part of unspecified lower leg with unspecified severity (3) Below-knee amputation of left lower extremity: CODE(S): S88.112A - Complete traumatic amputation at level between knee and ankle, left lower leg, initial encounter (4) Diabetes: CODE(S): E11.9 - Type 2 diabetes mellitus without complications (5) Smoker: CODE(S): F17.200 - Nicotine dependence, unspecified, uncomplicated PLAN: Plan Patient was evaluated at the wound center today. Wound care - He has completed 10 applications of Theraskin. He has been approved for Epifix. Epifix #10 placed today. 18mm piece place on the ulcer and packed into the deeper aspect of the ulcer at 12 o'clock. 100% of the product was used. Covered with wound veil and secured with steri-strips and skin prep and topped with gauze. He may change the outer dressing above the wound veil as needed. Compression - AMIE wrap. He has stopped wearing his silicone stump bulk station agent because is may be making the yudy wound macerated due to being occlusive. Bone culture 12/25/21 - Staphylococcus aureus. Pathology of bone showed dense fibroconnective tissue with reactive changes and foreign body giant cell reaction. He has completed the IV antibiotic, Cefazolin, for 6 weeks. Obtained a wound culture on 09/17/21 which was negative for bacterial growth. Wound culture from 07/09/21 positive for Staphylococcus aureus and Streptococcus agalactiae (B). He completed his Augmentin. Encouraged high protein diet to help with wound healing and low carb diet to help keep better control of blood sugars. He states he is not wearing his prosthesis. Encouraged patient to stop smoking as it may have deleterious effects on wound healing. Follow up 1 week. Follow-up sooner or report to the emergency department should new or concerning symptoms arise.
[2022-04-15 08:59] VITALS: BP 159/96; PULSE 76; RESP 18; TEMP 35.9
--- NOTE | 2022-04-15 13:53 | PCM.WC.PN ---
History of Present Illness Date of Service: 04/15/22 Chief Complaint: Ulcer on left BKA after I&D of a diabetic abscess/hematoma on 11/06/20 History of Wound: Surgery on 11/06/20 - Surgical preparation left below knee amputation stump with incision and drainage and excisional debridement with partial ostectomy tibia for osteomyelitis and evacuation hematoma for draining diabetic ulcer abscess. (He had his Left BKA on 04/17/20). Operative tissue and bone cultures were negative. Wound cultures from 11/02/20 positive for MSSA, Enterobacter cloacae complex, and Corynebacterium amycolatum. Prealbumin 9.9 on 11/07/20. He was evaluated by Dr. Boston on 12/06/21 for an operative debridement and possible osteomyelitis. Surgery with Dr. Boston on 12/25/21 for Debridement left lower extremity amputation stump skin, subcutaneous tissue, fascia, bone. Bone culture 12/25/21 - Staphylococcus aureus. Pathology of bone showed dense fibroconnective tissue with reactive changes and foreign body giant cell reaction. Pieces of bone with reactive changes. Wound culture from 09/17/21 showed no growth. Wound culture from 07/09/21 positive for Staphylococcus aureus and Streptococcus agalactiae (B). He was started on Augmentin and a Probiotic. Xray obtained on 10/01/21 of his left BKA stump because of his non healing ulcer. The xray showed bony abnormalities along the lateral aspect of the amputation site of the proximal tibia. Consider further evaluation to exclude osteomyelitis. He obtained this xray at [facility]. MRI obtained 10/31/21, at [facility], of his left BKA which showed Bone edema with contrast enhancement of the tibia consistent with osteomyelitis. Small fluid collection at the distal aspect of the amputated tibia suggestive of small abscess. He has has completed ten applications of Theraskin which did help decrease his ulcer size. 02/25/22-Unroofed the undermining from 9-3 o'clock to make wound care easier. Wound care - He has had 10 applications of Theraskin. Since he has had an operative debridement, he has had 10 applications of Epifix which he completed 04/08/22. Wound care will be moistened Aquacel-Ag covered with gauze daily after washing with soap and water. He is wearing a stump waitstaff captain for compression. Today he denies any fever. He states his appetite is good. Progress of Wound: Left BKA ulcer is beefy pink and is smaller in size. Yudy wound is clear. Objective Data Objective Data Vital Signs: Vital Signs Temp Pulse Resp BP 96.7 F L 76 18 159/96 H 04/15/22 08:59 04/15/22 08:59 04/15/22 08:59 04/15/22 08:59 Charges/Coding Procedures Integumentary 111xxx-113xx: 10809 Ria subq tissue 20 sq cm/< Debridement Note Debridement Note Wound debrided: BKA stump ulcer Laterality: Left Wound Grade/Stage: StageIV Type of Debridement: Excisional debridement Anesthesia Used: 5% Lidocaine Gel and - (2% lidocaine with epinepherine 2 cc injected into the undermining) Depth: Down to and including healthy tissue and in the subcutaneous layer Percentage of wound debrided: 100 Instrument Used: 3mm curette Tissue Removed: Devitalized tissue and biofilm Severity: Fat Layer Exposed Amount of bleeding with debridement: Mild Bleeding Controlled with: Compression and gauze and Silver Nitrate Patient tolerated procedure: Patient tolerated procedure well Post-Debridement Measurements and Additional Note: Post-Debridement Measurements/Treatment - Nurse 1 - General Ulcer Assessment Start: 03/27/22 09:56 Freq: Status: Active Protocol: ARLETH Activity Type Activity Date Activity User E-sign Co-sign Detail Recorded Client Recorded Date Recorded By Document 03/27/22 09:56 RB [id number] 03/27/22 10:04 RB Document 04/01/22 08:54 JF [id number] 04/01/22 08:56 JF Document 04/08/22 08:29 AK Desktop 04/08/22 08:33 AK Document 04/15/22 08:59 DL [id number] 04/15/22 09:02 DL 03/27/22 04/01/22 04/08/22 09:56 08:54 08:29 - Today's Visit Information Type of service Follow-up Visit Follow-up Visit Follow-up Visit (Physician/PHARMACY OPERATIONS SPECIALIST (Physician/PHARMACY OPERATIONS SPECIALIST (Physician/PHARMACY OPERATIONS SPECIALIST ) ) ) Arrival Mode Ambulatory Wheelchair Wheelchair Transfer Assistance None Other Transfer Assist (Other) transfers himself Patient Identification Verified (Name & Yes Yes Yes ) Patient Requires Transmission-Based No No Precautions Finger Stick Blood Sugar(mg/dl) (if indicated): Blood Sugar Vital Signs Temperature (97.8 F-99.1 F) 95.3 F L 95.0 F L 97.1 F L Temperature Source Temporal Temporal Temporal Pulse Rate (60-100) 72 63 56 L Pulse Location Monitor Monitor Monitor Respiratory Rate (12-18) 18 16 Respiratory rate source Observation Ausculation Blood Pressure (90/60-120/80) 130/72 H 156/90 H 158/64 H Blood Pressure Mean (mm Hg) 91 112 95 Source Monitor Monitor Monitor Position Semi-Fowlers Semi-Fowlers Blood Pressure Location Left Arm Left Arm History Since Last Visit- (Skip if this is Patient's initial visit) Have you changed medications since your No No No last visit? Any new allergies or adverse reactions No No No Had a fall/change in ADL's that may No No No increase risk of falls Signs or symptoms of abuse and/or No No No neglect since last visit Have you been in the hospital since your No No No last visit? Has dressing in place as prescribed Yes Yes Yes Has compression in place as prescribed Yes N/A N/A Has offloadiing in place as prescribed No Yes N/A Experienced any changes in pain level or No No No management Left Footwear No Footwear Other Footwear (Comment) Right Footwear Regular Shoe Regular Shoe Pain Scale: 0-10 Numeric Is Patient Pain Free? Yes Yes Yes 04/15/22 08:59 WC - Today's Visit Information Type of service Follow-up Visit (Physician/PHARMACY OPERATIONS SPECIALIST ) Arrival Mode Stretcher Transfer Assistance None Transfer Assist (Other) Patient Identification Verified (Name & Yes ) Patient Requires Transmission-Based No Precautions Finger Stick Blood Sugar(mg/dl) (if not checked indicated): Blood Sugar Stated by Patient Vital Signs Temperature (97.8 F-99.1 F) 96.7 F L Temperature Source Temporal Pulse Rate (60-100) 76 Pulse Location Monitor Respiratory Rate (12-18) 18 Respiratory rate source Observation Blood Pressure (90/60-120/80) 159/96 H Blood Pressure Mean (mm Hg) 117 Source Monitor Position Blood Pressure Location History Since Last Visit- (Skip if this is Patient's initial visit) Have you changed medications since your No last visit? Any new allergies or adverse reactions No Had a fall/change in ADL's that may No increase risk of falls Signs or symptoms of abuse and/or No neglect since last visit Have you been in the hospital since your No last visit? Has dressing in place as prescribed Yes Has compression in place as prescribed N/A Has offloadiing in place as prescribed Yes Experienced any changes in pain level or Yes management Left Footwear Right Footwear Pain Scale: 0-10 Numeric Is Patient Pain Free? Yes WC - Nurse 1 - General Ulcer Measurement Start: 03/27/22 09:56 Freq: Status: Active Protocol: Activity Type Activity Date Activity User E-sign Co-sign Detail Recorded Client Recorded Date Recorded By Document 03/27/22 09:56 RB [id number] 03/27/22 10:04 RB Document 04/01/22 08:54 JF [id number] 04/01/22 08:56 JF Document 04/08/22 08:29 AK Desktop 04/08/22 08:33 AK Document 04/15/22 08:59 DL [id number] 04/15/22 09:02 DL 03/27/22 04/01/22 04/08/22 09:56 08:54 08:29 Wound Center Nurse 1 #3 L Stump/Post op -Combined with other wound No No No -Current Size (cm) - Length 0.7 0.6 0.5 -Current Size (cm) - Width 1.5 1.6 1.5 -Current Size (cm) - Depth 0.3 0.5 0.1 -Total Square Cm 1.05 0.96 0.75 -Date of Last Picture (Recall this 04/08/22 field) -Photo Taken Yes Yes Yes -Epithelialization Medium 34-66% -Tunneling No No No -Undermining/Tunneling No No No -Circular Undermining No No No -Change in Wound Grade/Stage No -Exudate Amt Medium Small Medium -Exudate Type Serosanguineous Serosanguineous Serosanguineous -Wound Margin Thickened & Thickened & Distinct, Rolled Under Rolled Under Outline Attached -Granulation Amt Medium (34-66%) Large (67-100%) Large (67-100%) -Granulation Quality [place] Red Pale,[place] -Slough/Fibrin Yes Yes No -Necrosis Amt Medium (34-66%) Small (1-33%) None Present (0 %) -Necrotic Tissue Type Adherent Slough Adherent Slough -Structure Exposed N/A N/A N/A -Texture (Yudy-wound Skin Appearance) Scarring Assessed Assessed, Scarring -Moisture (Yudy-wound Skin Appearance) Assessed Assessed,Dry/ Assessed, Scaly Maceration -Color (Yudy-wound Skin Appearance) Assessed Assessed No Abnormality, Assessed -Temperature (Yudy-wound Skin No Abnormality No Abnormality No Abnormality Appearance) (Pt Warm) (Pt Warm) (Pt Warm) -Tenderness on Palpation (Yudy-wound No No No Skin Appearance) -Ulcer Cleansing Wound Cleanser Soap and Water Soap and Water -Foul Odor after Cleansing No No -Anesthetic Used 5% Lidocaine 5% Lidocaine 5% Lidocaine Gel Gel Gel Lower Limb Edema Present NA 04/15/22 08:59 Wound Center Nurse 1 #3 L Stump/Post op -Combined with other wound -Current Size (cm) - Length 0.4 -Current Size (cm) - Width 1.4 -Current Size (cm) - Depth 0.2 -Total Square Cm 0.56 -Date of Last Picture (Recall this field) -Photo Taken Yes -Epithelialization -Tunneling -Undermining/Tunneling -Circular Undermining -Change in Wound Grade/Stage -Exudate Amt Small -Exudate Type Serosanguineous -Wound Margin Distinct, Outline Attached -Granulation Amt Medium (34-66%) -Granulation Quality -Slough/Fibrin -Necrosis Amt Medium (34-66%) -Necrotic Tissue Type Adherent Slough -Structure Exposed N/A -Texture (Yudy-wound Skin Appearance) Scarring -Moisture (Yudy-wound Skin Appearance) No Abnormality -Color (Yudy-wound Skin Appearance) Assessed -Temperature (Yudy-wound Skin No Abnormality Appearance) (Pt Warm) -Tenderness on Palpation (Yudy-wound No Skin Appearance) -Ulcer Cleansing Soap and Water -Foul Odor after Cleansing -Anesthetic Used 5% Lidocaine Gel Lower Limb Edema Present WC - Nurse 2 - General Ulcer CM Notes Start: 03/27/22 09:56 Freq: Status: Active Protocol: Activity Type Activity Date Activity User E-sign Co-sign Detail Recorded Client Recorded Date Recorded By Document 03/27/22 10:24 [id number] 03/27/22 10:26 Document 04/01/22 09:27 [id number] 04/01/22 09:29 Document 04/08/22 09:05 [id number] 04/08/22 09:06 Document 04/15/22 09:21 [id number] 04/15/22 09:22 03/27/22 04/01/22 04/08/22 10:24 09:27 09:05 Wound Center Nurse 2 #3 L Stump/Post op -Time 10:24 09:27 09:05 -Correct Patient Yes Yes Yes -Correct Side, Site, Position Yes Yes Yes -Correct Procedure Yes Yes Yes -Procedure Performed Yes Yes Yes -Type of Procedure -Type of Procedure Debridement Debridement Debridement -Clinical Debridement Subcutaneous Subcutaneous Subcutaneous -Tissue Removed Subcutaneous Subcutaneous Subcutaneous -Post Debridement (cm) - Length 0.8 0.7 0.7 -Post Debridement (cm) - Width 1.9 2.0 1.8 -Post Debridement (cm) - Depth 0.3 0.4 0.2 -Total Square (Post) (cm) 1.52 1.40 1.26 -Area of Debridement (cm) - Length 0.8 0.7 0.7 -Area of Debridement (cm) - Width 1.9 2.0 1.8 -Total Square (Area) (cm) 1.52 1.40 1.26 -Tunneling No No No -Undermining/Tunneling No No No -Circular Undermining No No No -Wound/Ulcer Outcome Not Healed Not Healed Not Healed -Ulcer Cleansing Not Cleansed Rinsed/ Rinsed/ Irrigated with Irrigated with Saline Saline -Foul Odor after Cleansing No No No -Bioengineered Tissue Yes Yes Yes -Type of Bioengineered Tissue Epifix 18mm Epifix 18mm Epifix 18mm Disc Disc Disc -Expiration Date 11/22/26 11/22/26 12/22/26 -Product Lot Number [id number] -Percent Used 100 100 100 -Lot number of Saline Used [id number] -Bleeding Controlled with Pressure Pressure Pressure -Treatment Response Procedure Procedure Procedure Tolerated Well Tolerated Well Tolerated Well -Offloading No No No -Assistive Device(s) Wheelchair Wheelchair Wheelchair -Debridement - Subq, 1st 20sq cm No No No -Apply Skin Sub - 1st 25 sq cm - Legs 1 1 1 -Epifix 18mm Disc 3 3 3 Pain Scale: 0-10 Numeric Is Patient Pain Free? Yes Yes Yes 04/15/22 09:21 Wound Center Nurse 2 #3 L Stump/Post op -Time 09:21 -Correct Patient Yes -Correct Side, Site, Position Yes -Correct Procedure Yes -Procedure Performed Yes -Type of Procedure Debridement -Type of Procedure -Clinical Debridement Subcutaneous -Tissue Removed Subcutaneous -Post Debridement (cm) - Length 0.6 -Post Debridement (cm) - Width 1.7 -Post Debridement (cm) - Depth 0.3 -Total Square (Post) (cm) 1.02 -Area of Debridement (cm) - Length 0.6 -Area of Debridement (cm) - Width 1.7 -Total Square (Area) (cm) 1.02 -Tunneling No -Undermining/Tunneling No -Circular Undermining No -Wound/Ulcer Outcome Not Healed -Ulcer Cleansing Rinsed/ Irrigated with Saline -Foul Odor after Cleansing No -Bioengineered Tissue No -Type of Bioengineered Tissue -Expiration Date -Product Lot Number -Percent Used -Lot number of Saline Used -Bleeding Controlled with Pressure -Treatment Response Procedure Tolerated Well -Offloading No -Assistive Device(s) Wheelchair -Debridement - Subq, 1st 20sq cm Yes -Apply Skin Sub - 1st 25 sq cm - Legs -Epifix 18mm Disc Pain Scale: 0-10 Numeric Is Patient Pain Free? Yes - Nurse 3 - General Ulcer D/C NN Start: 03/27/22 09:56 Freq: Status: Active Protocol: Activity Type Activity Date Activity User E-sign Co-sign Detail Recorded Client Recorded Date Recorded By Document 03/27/22 10:39 [facility] [id number] 03/27/22 10:40 BM Document 04/01/22 09:31 JF [id number] 04/01/22 09:32 JF Document 04/08/22 09:13 DL [id number] 04/08/22 09:15 DL Document 04/15/22 09:28 DL [id number] 04/15/22 09:30 DL 03/27/22 04/01/22 04/08/22 10:39 09:31 09:13 Wound Care Center Nurse 3 #3 L Stump/Post op -Ulcer Cleansing Rinsed/ Irrigated with Saline -Foul Odor after Cleansing No No -Primary Dressing Applied -Other Dressing EPIFIX EpiFix/Veil/ SteriStripped -Primary Dressing Covered/Secured with Dry Gauze, Dry Gauze, Dry Gauze & Secured with Secured with Roll Gauze, Tape Tape Secured with Tape -Aquacel AG 4x4 Treatment Response Procedure Procedure Tolerated Well Tolerated Well Pain Scale: 0-10 Numeric Is Patient Pain Free? Yes Yes Yes WC - Visit Discharge Discharge Condition Stable Stable Stable Ambulatory Status Wheelchair Wheelchair Wheelchair Transportation Private Auto Private Auto Private Auto Medication Reconcilliation completed & Yes provided to patient/care provider Clinical Summary of Care Provided Yes Notes: 04/15/22 09:28 Wound Care Center Nurse 3 #3 L Stump/Post op -Ulcer Cleansing Rinsed/ Irrigated with Saline -Foul Odor after Cleansing No -Primary Dressing Applied Aquacel AG 4x4 -Other Dressing -Primary Dressing Covered/Secured with Dry Gauze & Roll Gauze, Secured with Tape -Aquacel AG 4x4 1 Treatment Response Procedure Tolerated Well Pain Scale: 0-10 Numeric Is Patient Pain Free? Yes WC - Visit Discharge Discharge Condition Stable Ambulatory Status Wheelchair Transportation Private Auto Medication Reconcilliation completed & provided to patient/care provider Clinical Summary of Care Provided Notes: Dressing applied per Javid Kingston LPN today. Assessment/Plan Assessment/Plan (1) Pressure ulcer of BKA stump, stage 4: CODE(S): T87.89 - Other complications of amputation stump; L89.894 - Pressure ulcer of other site, stage 4 (2) Diabetes mellitus with ulcer of lower extremity: CODE(S): E11.622 - Type 2 diabetes mellitus with other skin ulcer; L97.909 - Non-pressure chronic ulcer of unspecified part of unspecified lower leg with unspecified severity (3) Below-knee amputation of left lower extremity: CODE(S): S88.112A - Complete traumatic amputation at level between knee and ankle, left lower leg, initial encounter (4) Diabetes: CODE(S): E11.9 - Type 2 diabetes mellitus without complications (5) Smoker: CODE(S): F17.200 - Nicotine dependence, unspecified, uncomplicated PLAN: Plan Patient was evaluated at the wound center today. He has completed 10 applications of Theraskin. He has completed 10 applications of Epifix. Wound care - Moistened Aquacel-Ag covered with gauze daily after washing with soap and water. Compression - AMIE wrap or non-silicone stump waitstaff captain. He has stopped wearing his silicone stump waitstaff captain because is may be making the yudy wound macerated. Bone culture 12/25/21 - Staphylococcus aureus. Pathology of bone showed dense fibroconnective tissue with reactive changes and foreign body giant cell reaction. He has completed the IV antibiotic, Cefazolin, for 6 weeks. Obtained a wound culture on 09/17/21 which was negative for bacterial growth. Wound culture from 07/09/21 positive for Staphylococcus aureus and Streptococcus agalactiae (B). He completed his Augmentin. Encouraged high protein diet to help with wound healing and low carb diet to help keep better control of blood sugars. He states he is not wearing his prosthesis. Encouraged patient to stop smoking as it may have deleterious effects on wound healing. Follow up 2 weeks. Follow-up sooner or report to the emergency department should new or concerning symptoms arise.
== END 2022-04-23 23:59 | disposition home or self-care (01) ==
LOC: WC 09:00
PROVIDERS: PCP Family Medicine; Visit Provider Nurse Practitioner Family
DX: T87.89 Other complications of amputation stump (principal); E11.622 Type 2 diabetes mellitus with other skin ulcer; Z89.512 Acquired absence of left leg below knee; L98.492 Non-pressure chronic ulcer of skin of other sites with fat layer exposed; S89.92XA Unspecified injury of left lower leg, initial encounter; F17.200 Nicotine dependence, unspecified, uncomplicated; Y83.5 Amputation of limb(s) as the cause of abnormal reaction of the patient, or of later complication, without mention of misadventure at the time of the procedure
CPT/HCPCS: 11042; 15271; Q4186

== ENCOUNTER 2022-05-13 09:45 | Outpatient (RCR) | payer MEDICARE, MEDICAID, SELFPAY ==
[2022-04-24 00:27] VITALS: BP 159/96; PULSE 76; RESP 18; TEMP 35.9
[2022-04-29 09:00] VITALS: BP 133/77; PULSE 78; TEMP 35.8
--- NOTE | 2022-04-29 11:53 | PN.PCM_ITS ---
History of Present Illness Date of Service: 04/29/22 Chief Complaint: Ulcer on left BKA after I&D of a diabetic abscess/hematoma on 11/06/20 History of Wound: Surgery on 11/06/20 - Surgical preparation left below knee amputation stump with incision and drainage and excisional debridement with partial ostectomy tibia for osteomyelitis and evacuation hematoma for draining diabetic ulcer abscess. (He had his Left BKA on 04/17/20). Operative tissue and bone cultures were negative. Wound cultures from 11/02/20 positive for MSSA, Enterobacter cloacae complex, and Corynebacterium amycolatum. Prealbumin 9.9 on 11/07/20. He was evaluated by Dr. Boston on 12/06/21 for an operative debridement and pos sible osteomyelitis. Surgery with Dr. Boston on 12/25/21 for Debridement left lower extremity amputation stump skin, subcutaneous tissue, fascia, bone. Bone culture 12/25/21 - Staphylococcus aureus. Pathology of bone showed dense fibroconnective tissue with reactive changes and foreign body giant cell reaction. Pieces of bone with reactive changes. Wound culture from 09/17/21 showed no growth. Wound culture from 07/09/21 positive for Staphylococcus aureus and Streptococcus agalactiae (B). He was started on Augmentin and a Probiotic. Xray obtained on 10/01/21 of his left BKA stump because of his non healing ulcer. The xray showed bony abnormalities along the lateral aspect of the amputation site of the proximal tibia. Consider further evaluation to exclude osteomyelitis. He obtained this xray at [facility]. MRI obtained 10/31/21, at [facility], of his left BKA which showed Bone edema with contrast enhancement of the tibia consistent with osteomyelitis. Small fluid collection at the distal aspect of the amputated tibia suggestive of small abscess. He has has completed ten applications of Theraskin which did help decrease his ulcer size. 02/25/22-Unroofed the undermining from 9-3 o'clock to make wound care easier. Wound care - He has had 10 applications of Theraskin. Since he has had an operative debridement, he has had 10 applications of Epifix which he completed 04/08/22. Wound care will be moistened Garima topped with adpatic and covered with gauze 3 times per week after washing with soap and water. He is wearing a stump septic pump truck driver for compression. Today he denies any fever. He states his appetite is good. Progress of Wound: Left BKA ulcer has increased scabbing. The wound bed is beefy pink and is smaller in size. Yudy wound is clear. Objective Data Objective Data Vital Signs: Vital Signs Temp Pulse Resp BP 96.4 F L 78 18 133/77 H 04/29/22 09:00 04/29/22 09:00 04/24/22 00:27 04/29/22 09:00 Charges/Coding Procedures Integumentary 111xxx-113xx: 22709 Ria subq tissue 20 sq cm/< Debridement Note Debridement Note Wound debrided: BKA stump ulcer Laterality: Left Wound Grade/Stage: StageIV Type of Debridement: Excisional debridement Anesthesia Used: 5% Lidocaine Gel and - (2% lidocaine with epinepherine 2 cc injected into the undermining) Depth: Down to and including healthy tissue and in the subcutaneous layer Percentage of wound debrided: 100 Instrument Used: 3mm curette Tissue Removed: Devitalized tissue and slough, increased scabbing Severity: Fat Layer Exposed Amount of bleeding with debridement: Mild Bleeding Controlled with: Compression and gauze and Silver Nitrate Patient tolerated procedure: Patient tolerated procedure well Post-Debridement Measurements and Additional Note: Post-Debridement Measurements/Treatment - Nurse 1 - General Ulcer Assessment Start: 04/29/22 09:00 Freq: Status: Active Protocol: .LOWKEYAT Activity Type Activity Date Activity User E-sign Co-sign Detail Recorded Client Recorded Date Recorded By Document 04/29/22 09:00 MS [id number] 04/29/22 09:02 MS 04/29/22 09:00 - Today's Visit Information Type of service Follow-up Visit (Physician/IT PROFESSIONAL ) Arrival Mode Wheelchair Patient Identification Verified (Name & Yes ) Patient Requires Transmission-Based No Precautions Safety Precautions NA Vital Signs Temperature (97.8 F-99.1 F) 96.4 F L Temperature Source Temporal Pulse Rate (60-100) 78 Pulse Location Monitor Blood Pressure (90/60-120/80) 133/77 H Blood Pressure Mean (mm Hg) 95 Source Monitor History Since Last Visit- (Skip if this is Patient's initial visit) Have you changed medications since your No last visit? Any new allergies or adverse reactions No Had a fall/change in ADL's that may No increase risk of falls Signs or symptoms of abuse and/or No neglect since last visit Have you been in the hospital since your No last visit? Has dressing in place as prescribed Yes Has compression in place as prescribed N/A Has offloadiing in place as prescribed Yes Experienced any changes in pain level or No management Right Footwear Regular Shoe Pain Scale: 0-10 Numeric Is Patient Pain Free? Yes - Nurse 1 - General Ulcer Measurement Start: 04/29/22 09:00 Freq: Status: Active Protocol: Activity Type Activity Date Activity User E-sign Co-sign Detail Recorded Client Recorded Date Recorded By Document 04/29/22 09:00 KATERINA [id number] 04/29/22 09:02 AK 04/29/22 09:00 Wound Center Nurse 1 #3 L Stump/Post op -Combined with other wound No -Current Size (cm) - Length 0.1 -Current Size (cm) - Width 1 -Current Size (cm) - Depth 0.3 -Total Square Cm 0.1 -Photo Taken Yes -Tunneling No -Undermining/Tunneling No -Circular Undermining No -Change in Wound Grade/Stage No -Exudate Amt Small -Exudate Type Serosanguineous -Wound Margin Distinct, Outline Attached -Granulation Amt Large (67-100%) -Granulation Quality [place] -Slough/Fibrin No -Necrosis Amt None Present (0 %) -Structure Exposed N/A -Texture (Yudy-wound Skin Appearance) Assessed, Scarring -Moisture (Yudy-wound Skin Appearance) No Abnormality, Assessed -Color (Yudy-wound Skin Appearance) No Abnormality, Assessed -Temperature (Yudy-wound Skin No Abnormality Appearance) (Pt Warm) -Tenderness on Palpation (Yudy-wound No Skin Appearance) -Ulcer Cleansing Rinsed/ Irrigated with Saline -Foul Odor after Cleansing No -Anesthetic Used 5% Lidocaine Gel FREDI - Nurse 2 - General Ulcer CM Notes Start: 04/29/22 09:00 Freq: Status: Active Protocol: Activity Type Activity Date Activity User E-sign Co-sign Detail Recorded Client Recorded Date Recorded By Document 04/29/22 09:16 MARSHALL [id number] 04/29/22 09:19 MARSHALL 04/29/22 09:16 Wound Center Nurse 2 -Time 09:17 -Correct Patient Yes -Correct Side, Site, Position Yes -Correct Procedure Yes -Procedure Performed Yes -Type of Procedure Debridement -Clinical Debridement Subcutaneous -Tissue Removed Subcutaneous -Post Debridement (cm) - Length 0.5 -Post Debridement (cm) - Width 1.8 -Post Debridement (cm) - Depth 0.3 -Total Square (Post) (cm) 0.90 -Area of Debridement (cm) - Length 0.5 -Area of Debridement (cm) - Width 1.8 -Total Square (Area) (cm) 0.90 -Tunneling No -Undermining/Tunneling No -Circular Undermining No -Wound/Ulcer Outcome Not Healed -Ulcer Cleansing Rinsed/ Irrigated with Saline -Foul Odor after Cleansing No -Bioengineered Tissue No -Bleeding Controlled with Pressure -Treatment Response Procedure Tolerated Well -Offloading No -Assistive Device(s) Wheelchair -Debridement - Subq, 1st 20sq cm Yes Pain Scale: 0-10 Numeric Is Patient Pain Free? Yes - Nurse 3 - General Ulcer D/C NN Start: 04/29/22 09:00 Freq: Status: Active Protocol: Activity Type Activity Date Activity User E-sign Co-sign Detail Recorded Client Recorded Date Recorded By Document 04/29/22 09:26 [facility] [id number] 04/29/22 09:26 [facility] 04/29/22 09:26 Wound Care Center Nurse 3 #3 L Stump/Post op -Ulcer Cleansing Rinsed/ Irrigated with Saline -Foul Odor after Cleansing No -Primary Dressing Applied NonAdherent Contact Layer, Promogran Garima Matter -Primary Dressing Covered/Secured with Dry Gauze, Secured with Tape -Promogran Garima Matter 1 Treatment Response Procedure Tolerated Well Pain Scale: 0-10 Numeric Is Patient Pain Free? Yes - Visit Discharge Discharge Condition Stable Ambulatory Status Wheelchair Assessment/Plan Assessment/Plan (1) Pressure ulcer of BKA stump, stage 4: CODE(S): T87.89 - Other complications of amputation stump; L89.894 - Pres sure ulcer of other site, stage 4 (2) Diabetes mellitus with ulcer of lower extremity: CODE(S): E11.622 - Type 2 diabetes mellitus with other skin ulcer; L97.909 - Non-pressure chronic ulcer of unspecified part of unspecified lower leg with unspecified severity (3) Below-knee amputation of left lower extremity: CODE(S): S88.112A - Complete traumatic amputation at level between knee and ankle, left lower leg, initial encounter (4) Diabetes: CODE(S): E11.9 - Type 2 diabetes mellitus without complications (5) Smoker: CODE(S): F17.200 - Nicotine dependence, unspecified, uncomplicated PLAN: Plan Patient was evaluated at the wound center today. He has completed 10 applications of Theraskin. He has completed 10 applications of Epifix. Wound care - Moistened Garima covered with adaptic and topped with gauze 3 times per week after washing with soap and water. Compression - AMIE wrap or non-silicone stump septic pump truck driver. He has stopped wearing his silicone stump septic pump truck driver because is may be making the yudy wound macerated. Bone culture 12/25/21 - Staphylococcus aureus. Pathology of bone showed dense fibroconnective tissue with reactive changes and foreign body giant cell reaction. He has completed the IV antibiotic, Cefazolin, for 6 weeks. Obtained a wound culture on 09/17/21 which was negative for bacterial growth. Wound culture from 07/09/21 positive for Staphylococcus aureus and Streptococcus agalactiae (B). He completed his Augmentin. Encouraged high protein diet to help with wound healing and low carb diet to help keep better control of blood sugars. He states he is not wearing his prosthesis. Encouraged patient to stop smoking as it may have deleterious effects on wound healing. Follow up 2 weeks. Follow-up sooner or report to the emergency department should new or concerning symptoms arise.
[2022-05-13 09:56] VITALS: BP 141/62; PULSE 58; RESP 16; TEMP 35.7
--- NOTE | 2022-05-13 10:21 | PCM.WC.PN ---
History of Present Illness Date of Service: 05/13/22 Chief Complaint: Ulcer on left BKA after I&D of a diabetic abscess/hematoma on 11/06/20 History of Wound: Surgery on 11/06/20 - Surgical preparation left below knee amputation stump with incision and drainage and excisional debridement with partial ostectomy tibia for osteomyelitis and evacuation hematoma for draining diabetic ulcer abscess. (He had his Left BKA on 04/17/20). Operative tissue and bone cultures were negative. Wound cultures from 11/02/20 positive for MSSA, Enterobacter cloacae complex, and Corynebacterium amycolatum. Prealbumin 9.9 on 11/07/20. He was evaluated by Dr. Boston on 12/06/21 for an operative debridement and possible osteomyelitis. Surgery with Dr. Boston on 12/25/21 for Debridement left lower extremity amputation stump skin, subcutaneous tissue, fascia, bone. Bone culture 12/25/21 - Staphylococcus aureus. Pathology of bone showed dense fibroconnective tissue with reactive changes and foreign body giant cell reaction. Pieces of bone with reactive changes. Wound culture from 09/17/21 showed no growth. Wound culture from 07/09/21 positive for Staphylococcus aureus and Streptococcus agalactiae (B). He was started on Augmentin and a Probiotic. Xray obtained on 10/01/21 of his left BKA stump because of his non healing ulcer. The xray showed bony abnormalities along the lateral aspect of the amputation site of the proximal tibia. Consider further evaluation to exclude osteomyelitis. He obtained this xray at [facility]. MRI obtained 10/31/21, at [facility], of his left BKA which showed Bone edema with contrast enhancement of the tibia consistent with osteomyelitis. Small fluid collection at the distal aspect of the amputated tibia suggestive of small abscess. He has has completed ten applications of Theraskin which did help decrease his ulcer size. 02/25/22-Unroofed the undermining from 9-3 o'clock to make wound care easier. Wound care - He has had 10 applications of Theraskin. Since he has had an operative debridement, he has had 10 applications of Epifix which he completed 04/08/22. Wound care will be moistened Garima topped with adpatic and covered with gauze 3 times per week after washing with soap and water. He is wearing a stump well head pumper for compression. Today he denies any fever. He states his appetite is good. Progress of Wound: Left BKA ulcer is slightly smaller. The wound bed is beefy pink and is smaller in size. Yudy wound is clear. Objective Data Objective Data Vital Signs: Vital Signs Temp Pulse Resp BP O2 Del Method 96.2 F L 58 L 16 141/62 H Room Air 05/13/22 09:56 05/13/22 09:56 05/13/22 09:56 05/13/22 09:56 05/13/22 09:56 Oxygen Delivery Method Room Air Charges/Coding Procedures Integumentary 111xxx-113xx: 44059 Ria subq tissue 20 sq cm/< Debridement Note Debridement Note Wound debrided: BKA stump ulcer Laterality: Left Wound Grade/Stage: StageIV Type of Debridement: Excisional debridement Anesthesia Used: 5% Lidocaine Gel and - (2% lidocaine with epinepherine 2 cc injected into the undermining) Depth: Down to and including healthy tissue and in the subcutaneous layer Percentage of wound debrided: 100 Instrument Used: 3mm curette Tissue Removed: Devitalized tissue and slough, increased scabbing Severity: Fat Layer Exposed Amount of bleeding with debridement: Mild Bleeding Controlled with: Compression and gauze Patient tolerated procedure: Patient tolerated procedure well Post-Debridement Measurements and Additional Note: Post-Debridement Measurements/Treatment - Nurse 1 - General Ulcer Assessment Start: 04/29/22 09:00 Freq: Status: Active Protocol: WC.LOWKEYAT Activity Type Activity Date Activity User E-sign Co-sign Detail Recorded Client Recorded Date Recorded By Document 04/29/22 09:00 [place] [id number] 04/29/22 09:02 [place] Document 05/13/22 09:56 [facility] [id number] 05/13/22 09:59 [facility] 04/29/22 05/13/22 09:00 09:56 - Today's Visit Information Type of service Follow-up Visit Follow-up Visit (Physician/S[employer] PI DEVELOPER (Physician/S[employer] PI DEVELOPER ) ) Arrival Mode Wheelchair Wheelchair Transfer Assistance None Patient Identification Verified (Name & Yes Yes ) Patient Requires Transmission-Based No No Precautions Safety Precautions NA Vital Signs Temperature (97.8 F-99.1 F) 96.4 F L 96.2 F L Temperature Source Temporal Temporal Pulse Rate (60-100) 78 58 L Pulse Location Monitor Monitor Respiratory Rate (12-18) 16 Respiratory rate source Observation Oxygen Delivery Method Room Air Blood Pressure (90/60-120/80) 133/77 H 141/62 H Blood Pressure Mean (mm Hg) 95 88 Source Monitor Monitor Position Sitting Blood Pressure Location Left Forearm History Since Last Visit- (Skip if this is Patient's initial visit) Have you changed medications since your No No last visit? Any new allergies or adverse reactions No No Had a fall/change in ADL's that may No No increase risk of falls Signs or symptoms of abuse and/or No No neglect since last visit Have you been in the hospital since your No No last visit? Has dressing in place as prescribed Yes Yes Has compression in place as prescribed N/A N/A Has offloadiing in place as prescribed Yes N/A Experienced any changes in pain level or No No management Right Footwear Regular Shoe Pain Scale: 0-10 Numeric Is Patient Pain Free? Yes Yes WC - Nurse 1 - General Ulcer Measurement Start: 04/29/22 09:00 Freq: Status: Active Protocol: Activity Type Activity Date Activity User E-sign Co-sign Detail Recorded Client Recorded Date Recorded By Document 04/29/22 09:00 [place] [id number] 04/29/22 09:02 [place] Document 05/13/22 09:56 [facility] [id number] 05/13/22 09:59 [facility] 04/29/22 05/13/22 09:00 09:56 Wound Center Nurse 1 #3 L Stump/Post op -Combined with other wound No No -Current Size (cm) - Length 0.1 0.1 -Current Size (cm) - Width 1 1.2 -Current Size (cm) - Depth 0.3 0.1 -Total Square Cm 0.1 0.12 -Date of Last Picture (Recall this 05/13/22 field) -Photo Taken Yes Yes -Epithelialization Large 67-100% -Tunneling No No -Undermining/Tunneling No No -Circular Undermining No No -Change in Wound Grade/Stage No -Exudate Amt Small None Present -Exudate Type Serosanguineous -Wound Margin Distinct, Distinct, Outline Outline Attached Attached -Granulation Amt Large (67-100%) None Present (0 %) -Granulation Quality [place] -Slough/Fibrin No Yes -Necrosis Amt None Present (0 Large (67-100%) %) -Necrotic Tissue Type Adherent Slough -Structure Exposed N/A -Texture (Yudy-wound Skin Appearance) Assessed, Assessed, Scarring Scarring -Moisture (Yudy-wound Skin Appearance) No Abnormality, Assessed,Dry/ Assessed Scaly -Color (Yudy-wound Skin Appearance) No Abnormality, Assessed Assessed -Temperature (Yudy-wound Skin No Abnormality No Abnormality Appearance) (Pt Warm) (Pt Warm) -Tenderness on Palpation (Yudy-wound No No Skin Appearance) -Ulcer Cleansing Rinsed/ Rinsed/ Irrigated with Irrigated with Saline Saline -Foul Odor after Cleansing No No -Anesthetic Used 5% Lidocaine 5% Lidocaine Gel Gel WC - Nurse 2 - General Ulcer CM Notes Start: 04/29/22 09:00 Freq: Status: Active Protocol: Activity Type Activity Date Activity User E-sign Co-sign Detail Recorded Client Recorded Date Recorded By Document 04/29/22 09:16 [id number] 04/29/22 09:19 Document 05/13/22 10:09 [id number] 05/13/22 10:11 04/29/22 05/13/22 09:16 10:09 Wound Center Nurse 2 #3 L Stump/Post op -Time 09:17 10:09 -Correct Patient Yes Yes -Correct Side, Site, Position Yes Yes -Correct Procedure Yes Yes -Procedure Performed Yes Yes -Type of Procedure Debridement Debridement -Clinical Debridement Subcutaneous Subcutaneous -Tissue Removed Subcutaneous Subcutaneous -Post Debridement (cm) - Length 0.5 0.4 -Post Debridement (cm) - Width 1.8 2.0 -Post Debridement (cm) - Depth 0.3 0.1 -Total Square (Post) (cm) 0.90 0.80 -Area of Debridement (cm) - Length 0.5 0.4 -Area of Debridement (cm) - Width 1.8 2.0 -Total Square (Area) (cm) 0.90 0.80 -Tunneling No No -Undermining/Tunneling No No -Circular Undermining No No -Wound/Ulcer Outcome Not Healed Not Healed -Ulcer Cleansing Rinsed/ Rinsed/ Irrigated with Irrigated with Saline Saline -Foul Odor after Cleansing No No -Bioengineered Tissue No No -Bleeding Controlled with Pressure Pressure -Treatment Response Procedure Procedure Tolerated Well Tolerated Well -Offloading No No -Assistive Device(s) Wheelchair -Debridement - Subq, 1st 20sq cm Yes Yes Pain Scale: 0-10 Numeric Is Patient Pain Free? Yes Yes - Nurse 3 - General Ulcer D/C NN Start: 04/29/22 09:00 Freq: Status: Active Protocol: Activity Type Activity Date Activity User E-sign Co-sign Detail Recorded Client Recorded Date Recorded By Document 04/29/22 09:26 [facility] [id number] 04/29/22 09:26 [facility] 04/29/22 09:26 Wound Care Center Nurse 3 #3 L Stump/Post op -Ulcer Cleansing Rinsed/ Irrigated with Saline -Foul Odor after Cleansing No -Primary Dressing Applied NonAdherent Contact Layer, Promogran Garima Matter -Primary Dressing Covered/Secured with Dry Gauze, Secured with Tape -Promogran Garima Matter 1 Treatment Response Procedure Tolerated Well Pain Scale: 0-10 Numeric Is Patient Pain Free? Yes - Visit Discharge Discharge Condition Stable Ambulatory Status Wheelchair Assessment/Plan Assessment/Plan (1) Pressure ulcer of BKA stump, stage 4: CODE(S): T87.89 - Other complications of amputation stump; L89.894 - Pressure ulcer of other site, stage 4 (2) Diabetes mellitus with ulcer of lower extremity: CODE(S): E11.622 - Type 2 diabetes mellitus with other skin ulcer; L97.909 - Non-pressure chronic ulcer of unspecified part of unspecified lower leg with unspecified severity (3) Below-knee amputation of left lower extremity: CODE(S): S88.112A - Complete traumatic amputation at level between knee and ankle, left lower leg, initial encounter (4) Diabetes: CODE(S): E11.9 - Type 2 diabetes mellitus without complications (5) Smoker: CODE(S): F17.200 - Nicotine dependence, unspecified, uncomplicated PLAN: Plan Patient was evaluated at the wound center today. He has completed 10 applications of Theraskin. He has completed 10 applications of Epifix. Wound care - Moistened Garima covered with adaptic and topped with gauze 3 times per week after washing with soap and water. Compression - AMIE wrap or non-silicone stump well head pumper. He has stopped wearing his silicone stump well head pumper because is may be making the yudy wound macerated. Bone culture 12/25/21 - Staphylococcus aureus. Pathology of bone showed dense fibroconnective tissue with reactive changes and foreign body giant cell reaction. He has completed the IV antibiotic, Cefazolin, for 6 weeks. Obtained a wound culture on 09/17/21 which was negative for bacterial growth. Wound culture from 07/09/21 positive for Staphylococcus aureus and Streptococcus agalactiae (B). He completed his Augmentin. Encouraged high protein diet to help with wound healing and low carb diet to help keep better control of blood sugars. He states he is not wearing his prosthesis. Encouraged patient to stop smoking as it may have deleterious effects on wound healing. Follow up 2 weeks. Follow-up sooner or report to the emergency department should new or concerning symptoms arise.
== END 2022-05-21 23:59 | disposition home or self-care (01) ==
LOC: WC 09:45
PROVIDERS: PCP Family Medicine; Visit Provider Nurse Practitioner Family
DX: T87.89 Other complications of amputation stump (principal); E11.622 Type 2 diabetes mellitus with other skin ulcer; Z89.512 Acquired absence of left leg below knee; L98.492 Non-pressure chronic ulcer of skin of other sites with fat layer exposed; Y83.5 Amputation of limb(s) as the cause of abnormal reaction of the patient, or of later complication, without mention of misadventure at the time of the procedure; F17.200 Nicotine dependence, unspecified, uncomplicated
CPT/HCPCS: 11042

== ENCOUNTER 2022-06-10 09:45 | Outpatient (RCR) | payer MEDICARE, MEDICAID, SELFPAY ==
[2022-05-22 00:19] VITALS: BP 141/62; PULSE 58; RESP 16; TEMP 35.7
[2022-05-27 09:32] VITALS: BP 139/72; PULSE 61; RESP 16; TEMP 35.7
--- NOTE | 2022-05-27 11:27 | PCM.WC.PN ---
History of Present Illness Date of Service: 05/27/22 Chief Complaint: Ulcer on left BKA after I&D of a diabetic abscess/hematoma on 11/06/20 History of Wound: Surgery on 11/06/20 - Surgical preparation left below knee amputation stump with incision and drainage and excisional debridement with partial ostectomy tibia for osteomyelitis and evacuation hematoma for draining diabetic ulcer abscess. (He had his Left BKA on 04/17/20). Operative tissue and bone cultures were negative. Wound cultures from 11/02/20 positive for MSSA, Enterobacter cloacae complex, and Corynebacterium amycolatum. Prealbumin 9.9 on 11/07/20. He was evaluated by Dr. Boston on 12/06/21 for an operative debridement and possible osteomyelitis. Surgery with Dr. Boston on 12/25/21 for Debridement left lower extremity amputation stump skin, subcutaneous tissue, fascia, bone. Bone culture 12/25/21 - Staphylococcus aureus. Pathology of bone showed dense fibroconnective tissue with reactive changes and foreign body giant cell reaction. Pieces of bone with reactive changes. Wound culture from 09/17/21 showed no growth. Wound culture from 07/09/21 positive for Staphylococcus aureus and Streptococcus agalactiae (B). He was started on Augmentin and a Probiotic. Xray obtained on 10/01/21 of his left BKA stump because of his non healing ulcer. The xray showed bony abnormalities along the lateral aspect of the amputation site of the proximal tibia. Consider further evaluation to exclude osteomyelitis. He obtained this xray at [facility]. MRI obtained 10/31/21, at [facility], of his left BKA which showed Bone edema with contrast enhancement of the tibia consistent with osteomyelitis. Small fluid collection at the distal aspect of the amputated tibia suggestive of small abscess. He has has completed ten applications of Theraskin which did help decrease his ulcer size. 02/25/22-Unroofed the undermining from 9-3 o'clock to make wound care easier. Wound care - He has had 10 applications of Theraskin. Since he has had an operative debridement, he has had 10 applications of Epifix which he completed 04/08/22. Wound care will be moistened Garima topped with adpatic and covered with gauze 3 times per week after washing with soap and water. He is wearing a stump ic designer custom for compression. Today he denies any fever. He states his appetite is good. Progress of Wound: Left BKA ulcer has improved, it is smaller. The wound bed is beefy pink and is smaller in size. Yudy wound is clear. Objective Data Objective Data Vital Signs: Vital Signs Temp Pulse Resp BP O2 Del Method 96.2 F L 61 16 139/72 H Room Air 05/27/22 09:32 05/27/22 09:32 05/27/22 09:32 05/27/22 09:32 05/27/22 09:32 Oxygen Delivery Method Room Air Charges/Coding Procedures Integumentary 111xxx-113xx: 94022 Ria subq tissue 20 sq cm/< Debridement Note Debridement Note Wound debrided: BKA stump ulcer Laterality: Left Wound Grade/Stage: StageIV Type of Debridement: Excisional debridement Anesthesia Used: 5% Lidocaine Gel and - (2% lidocaine with epinepherine 2 cc injected into the undermining) Depth: Down to and including healthy tissue and in the subcutaneous layer Percentage of wound debrided: 100 Instrument Used: 3mm curette Tissue Removed: Devitalized tissue and slough, increased scabbing Severity: Fat Layer Exposed Amount of bleeding with debridement: Mild Bleeding Controlled with: Compression and gauze Patient tolerated procedure: Patient tolerated procedure well Post-Debridement Measurements and Additional Note: Post-Debridement Measurements/Treatment [facility] Nurse 1 - General Ulcer Assessment Start: 05/27/22 09:31 Freq: Status: Active Protocol: .LOWKEYAT Activity Type Activity Date Activity User E-sign Co-sign Detail Recorded Client Recorded Date Recorded By Document 05/27/22 09:32 [facility] [id number] 05/27/22 09:35 [facility] 05/27/22 09:32 - Today's Visit Information Type of service Follow-up Visit (Physician/[employer] ) Arrival Mode Wheelchair Transfer Assistance None Patient Identification Verified (Name & Yes ) Patient Requires Transmission-Based No Precautions Vital Signs Temperature (97.8 F-99.1 F) 96.2 F L Temperature Source Temporal Pulse Rate (60-100) 61 Pulse Location Monitor Respiratory Rate (12-18) 16 Respiratory rate source Observation Oxygen Delivery Method Room Air Blood Pressure (90/60-120/80) 139/72 H Blood Pressure Mean (mm Hg) 94 Source Monitor Position Sitting Blood Pressure Location Left Arm History Since Last Visit- (Skip if this is Patient's initial visit) Have you changed medications since your No last visit? Any new allergies or adverse reactions No Had a fall/change in ADL's that may No increase risk of falls Signs or symptoms of abuse and/or No neglect since last visit Have you been in the hospital since your No last visit? Has dressing in place as prescribed Yes Has compression in place as prescribed N/A Has offloadiing in place as prescribed N/A Experienced any changes in pain level or No management Pain Scale: 0-10 Numeric Is Patient Pain Free? Yes WC - Nurse 1 - General Ulcer Measurement Start: 05/27/22 09:31 Freq: Status: Active Protocol: Activity Type Activity Date Activity User E-sign Co-sign Detail Recorded Client Recorded Date Recorded By Document 05/27/22 09:32 [facility] [id number] 05/27/22 09:35 [facility] 05/27/22 09:32 Wound Center Nurse 1 #3 L Stump/Post op -Combined with other wound No -Current Size (cm) - Length 1.5 -Current Size (cm) - Width 0.2 -Current Size (cm) - Depth 0.4 -Total Square Cm 0.30 -Date of Last Picture (Recall this 05/27/22 field) -Photo Taken Yes -Epithelialization Small 1-33% -Tunneling No -Undermining/Tunneling No -Circular Undermining No -Exudate Amt Small -Exudate Type Serosanguineous -Wound Margin Distinct, Outline Attached -Granulation Amt Small (1-33%) -Granulation Quality Betances -Slough/Fibrin Yes -Necrosis Amt Medium (34-66%) -Necrotic Tissue Type Adherent Slough -Texture (Yudy-wound Skin Appearance) Assessed, Scarring -Moisture (Yudy-wound Skin Appearance) Assessed,Dry/ Scaly -Color (Yudy-wound Skin Appearance) Assessed -Temperature (Yudy-wound Skin No Abnormality Appearance) (Pt Warm) -Tenderness on Palpation (Yudy-wound No Skin Appearance) -Ulcer Cleansing Rinsed/ Irrigated with Saline -Foul Odor after Cleansing No -Anesthetic Used 5% Lidocaine Gel WC - Nurse 2 - General Ulcer CM Notes Start: 05/27/22 09:31 Freq: Status: Active Protocol: Activity Type Activity Date Activity User E-sign Co-sign Detail Recorded Client Recorded Date Recorded By Document 05/27/22 09:44 [id number] 05/27/22 09:47 05/27/22 09:44 Wound Center Nurse 2 -Time 09:45 -Correct Patient Yes -Correct Side, Site, Position Yes -Correct Procedure Yes -Procedure Performed Yes -Type of Procedure Debridement -Clinical Debridement Subcutaneous -Tissue Removed Subcutaneous -Post Debridement (cm) - Length 1.0 -Post Debridement (cm) - Width 1.3 -Post Debridement (cm) - Depth 0.2 -Total Square (Post) (cm) 1.30 -Area of Debridement (cm) - Length 1.0 -Area of Debridement (cm) - Width 1.3 -Total Square (Area) (cm) 1.30 -Tunneling No -Undermining/Tunneling No -Circular Undermining No -Wound/Ulcer Outcome Not Healed -Ulcer Cleansing Rinsed/ Irrigated with Saline -Foul Odor after Cleansing No -Bioengineered Tissue No -Bleeding Controlled with Pressure -Treatment Response Procedure Tolerated Well -Offloading No -Debridement - Subq, 1st 20sq cm Yes Pain Scale: 0-10 Numeric Is Patient Pain Free? Yes - Nurse 3 - General Ulcer D/C NN Start: 05/27/22 09:31 Freq: Status: Active Protocol: Activity Type Activity Date Activity User E-sign Co-sign Detail Recorded Client Recorded Date Recorded By Document 05/27/22 09:54 [facility] [id number] 05/27/22 09:54 [facility] 05/27/22 09:54 Wound Care Center Nurse 3 #3 L Stump/Post op -Ulcer Cleansing Rinsed/ Irrigated with Saline -Foul Odor after Cleansing No -Primary Dressing Applied C Hydrogel ($), NonAdherent Contact Layer -Primary Dressing Covered/Secured with Dry Gauze, Secured with Tape Treatment Response Procedure Tolerated Well Pain Scale: 0-10 Numeric Is Patient Pain Free? Yes - Visit Discharge Discharge Condition Stable Ambulatory Status Wheelchair Assessment/Plan Assessment/Plan (1) Pressure ulcer of BKA stump, stage 4: CODE(S): T87.89 - Other complications of amputation stump; L89.894 - Pressure ulcer of other site, stage 4 (2) Diabetes mellitus with ulcer of lower extremity: CODE(S): E11.622 - Type 2 diabetes mellitus with other skin ulcer; L97.909 - Non-pressure chronic ulcer of unspecified part of unspecified lower leg with unspecified severity (3) Below-knee amputation of left lower extremity: CODE(S): S88.112A - Complete traumatic amputation at level between knee and ankle, left lower leg, initial encounter (4) Diabetes: CODE(S): E11.9 - Type 2 diabetes mellitus without complications (5) Smoker: CODE(S): F17.200 - Nicotine dependence, unspecified, uncomplicated PLAN: Plan Patient was evaluated at the wound center today. He has completed 10 applications of Theraskin. He has completed 10 applications of Epifix. Wound care -Collagen hydrogel covered with adaptic and topped with gauze daily after washing with soap and water. Compression - AMIE wrap or non-silicone stump ic designer custom. He has stopped wearing his silicone stump ic designer custom because is may be making the yudy wound macerated. Bone culture 12/25/21 - Staphylococcus aureus. Pathology of bone showed dense fibroconnective tissue with reactive changes and foreign body giant cell reaction. He has completed the IV antibiotic, Cefazolin, for 6 weeks. Obtained a wound culture on 09/17/21 which was negative for bacterial growth. Wound culture from 07/09/21 positive for Staphylococcus aureus and Streptococcus agalactiae (B). He completed his Augmentin. Encouraged high protein diet to help with wound healing and low carb diet to help keep better control of blood sugars. He states he is not wearing his prosthesis. Encouraged patient to stop smoking as it may have deleterious effects on wound healing. Follow up 2 weeks. Follow-up sooner or report to the emergency department should new or concerning symptoms arise.
[2022-06-10 09:22] VITALS: BP 137/76; PULSE 63; TEMP 35.8
--- NOTE | 2022-06-10 12:26 | PCM.WC.PN ---
History of Present Illness Date of Service: 06/10/22 Chief Complaint: Ulcer on left BKA after I&D of a diabetic abscess/hematoma on 11/06/20 History of Wound: Surgery on 11/06/20 - Surgical preparation left below knee amputation stump with incision and drainage and excisional debridement with partial ostectomy tibia for osteomyelitis and evacuation hematoma for draining diabetic ulcer abscess. (He had his Left BKA on 04/17/20). Operative tissue and bone cultures were negative. Wound cultures from 11/02/20 positive for MSSA, Enterobacter cloacae complex, and Corynebacterium amycolatum. Prealbumin 9.9 on 11/07/20. He was evaluated by Dr. Boston on 12/06/21 for an operative debridement and possible osteomyelitis. Surgery with Dr. Boston on 12/25/21 for Debridement left lower extremity amputation stump skin, subcutaneous tissue, fascia, bone. Bone culture 12/25/21 - Staphylococcus aureus. Pathology of bone showed dense fibroconnective tissue with reactive changes and foreign body giant cell reaction. Pieces of bone with reactive changes. Wound culture from 09/17/21 showed no growth. Wound culture from 07/09/21 positive for Staphylococcus aureus and Streptococcus agalactiae (B). He was started on Augmentin and a Probiotic. Xray obtained on 10/01/21 of his left BKA stump because of his non healing ulcer. The xray showed bony abnormalities along the lateral aspect of the amputation site of the proximal tibia. Consider further evaluation to exclude osteomyelitis. [facility]. MRI obtained 10/31/21, at [facility], of his left BKA which showed Bone edema with contrast enhancement of the tibia consistent with osteomyelitis. Small fluid collection at the distal aspect of the amputated tibia suggestive of small abscess. He has has completed ten applications of Theraskin which did help decrease his ulcer size. 02/25/22-Unroofed the undermining from 9-3 o'clock to make wound care easier. Wound care - He has had 10 applications of Theraskin. Since he has had an operative debridement, he has had 10 applications of Epifix which he completed 04/08/22. Wound care will be moistened Garima topped with adpatic and covered with gauze 3 times per week after washing with soap and water. He is wearing a stump manager training for compression. Today he denies any fever. He states his appetite is good. Progress of Wound: Left BKA ulcer is smaller slightly smaller. The wound bed is beefy pink and is smaller in size. Yudy wound is clear. The bone is still palpable and my concern is that when this ulcer heals, once he starts wearing his prosthesis, he will obtain another pressure ulcer. Objective Data Objective Data Vital Signs: Vital Signs Temp Pulse Resp BP O2 Del Method 96.4 F L 63 16 137/76 H Room Air 06/10/22 09:22 06/10/22 09:22 05/27/22 09:32 06/10/22 09:22 05/27/22 09:32 Oxygen Delivery Method Room Air Charges/Coding Procedures Integumentary 111xxx-113xx: 59901 Ria subq tissue 20 sq cm/< Debridement Note Debridement Note Wound debrided: BKA stump ulcer Laterality: Left Wound Grade/Stage: StageIV Type of Debridement: Excisional debridement Anesthesia Used: 5% Lidocaine Gel and - Depth: Down to and including healthy tissue and in the subcutaneous layer Percentage of wound debrided: 100 Instrument Used: 3mm curette Tissue Removed: Devitalized tissue and slough, increased scabbing Severity: Fat Layer Exposed Amount of bleeding with debridement: Mild Bleeding Controlled with: Compression and gauze Patient tolerated procedure: Patient tolerated procedure well Post-Debridement Measurements and Additional Note: Post-Debridement Measurements/Treatment - Nurse 1 - General Ulcer Assessment Start: 05/27/22 09:31 Freq: Status: Active Protocol: FREDI.GENEVA Activity Type Activity Date Activity User E-sign Co-sign Detail Recorded Client Recorded Date Recorded By Document 05/27/22 09:32 [facility] [id number] 05/27/22 09:35 [facility] Document 06/10/22 09:22 [place] [id number] 06/10/22 09:24 [place] 05/27/22 06/10/22 09:32 09:22 - Today's Visit Information Type of service Follow-up Visit Follow-up Visit (Physician/[employer] (Physician/[employer]SELOR ) ) Arrival Mode Wheelchair Wheelchair Transfer Assistance None Patient Identification Verified (Name & Yes Yes ) Patient Requires Transmission-Based No No Precautions Vital Signs Temperature (97.8 F-99.1 F) 96.2 F L 96.4 F L Temperature Source Temporal Temporal Pulse Rate (60-100) 61 63 Pulse Location Monitor Monitor Respiratory Rate (12-18) 16 Respiratory rate source Observation Oxygen Delivery Method Room Air Blood Pressure (90/60-120/80) 139/72 H 137/76 H Blood Pressure Mean (mm Hg) 94 96 Source Monitor Monitor Position Sitting Blood Pressure Location Left Arm History Since Last Visit- (Skip if this is Patient's initial visit) Have you changed medications since your No No last visit? Any new allergies or adverse reactions No No Had a fall/change in ADL's that may No No increase risk of falls Signs or symptoms of abuse and/or No No neglect since last visit Have you been in the hospital since your No No last visit? Has dressing in place as prescribed Yes Yes Has compression in place as prescribed N/A N/A Has offloadiing in place as prescribed N/A N/A Experienced any changes in pain level or No No management Left Footwear No Footwear Right Footwear Regular Shoe Pain Scale: 0-10 Numeric Is Patient Pain Free? Yes Yes WC - Nurse 1 - General Ulcer Measurement Start: 05/27/22 09:31 Freq: Status: Active Protocol: Activity Type Activity Date Activity User E-sign Co-sign Detail Recorded Client Recorded Date Recorded By Document 05/27/22 09:32 [facility] [id number] 05/27/22 09:35 [facility] Document 06/10/22 09:22 [place] [id number] 06/10/22 09:24 [place] 05/27/22 06/10/22 09:32 09:22 Wound Center Nurse 1 #3 L Stump/Post op -Combined with other wound No No -Current Size (cm) - Length 1.5 0.6 -Current Size (cm) - Width 0.2 1.9 -Current Size (cm) - Depth 0.4 0.2 -Total Square Cm 0.30 1.14 -Date of Last Picture (Recall this 05/27/22 field) -Photo Taken Yes No -Epithelialization Small 1-33% -Tunneling No No -Undermining/Tunneling No No -Circular Undermining No No -Change in Wound Grade/Stage No -Exudate Amt Small Medium -Exudate Type Serosanguineous Serosanguineous -Wound Margin Distinct, Distinct, Outline Outline Attached Attached -Granulation Amt Small (1-33%) Medium (34-66%) -Granulation Quality [place] -Slough/Fibrin Yes Yes -Necrosis Amt Medium (34-66%) Medium (34-66%) -Necrotic Tissue Type Adherent Slough Adherent Slough -Structure Exposed N/A -Texture (Yudy-wound Skin Appearance) Assessed, Assessed, Scarring Scarring -Moisture (Yudy-wound Skin Appearance) Assessed,Dry/ No Abnormality, Scaly Assessed -Color (Yudy-wound Skin Appearance) Assessed No Abnormality, Assessed -Temperature (Yudy-wound Skin No Abnormality No Abnormality Appearance) (Pt Warm) (Pt Warm) -Tenderness on Palpation (Yudy-wound No No Skin Appearance) -Ulcer Cleansing Rinsed/ Rinsed/ Irrigated with Irrigated with Saline Saline -Foul Odor after Cleansing No No -Anesthetic Used 5% Lidocaine 5% Lidocaine Gel Gel WC - Nurse 2 - General Ulcer CM Notes Start: 05/27/22 09:31 Freq: Status: Active Protocol: Activity Type Activity Date Activity User E-sign Co-sign Detail Recorded Client Recorded Date Recorded By Document 05/27/22 09:44 [id number] 05/27/22 09:47 Document 06/10/22 09:40 [id number] 06/10/22 09:42 05/27/22 06/10/22 09:44 09:40 Wound Center Nurse 2 #3 L Stump/Post op -Time 09:45 09:40 -Correct Patient Yes Yes -Correct Side, Site, Position Yes Yes -Correct Procedure Yes Yes -Procedure Performed Yes Yes -Type of Procedure Debridement Debridement -Clinical Debridement Subcutaneous Subcutaneous -Tissue Removed Subcutaneous Subcutaneous -Post Debridement (cm) - Length 1.0 0.5 -Post Debridement (cm) - Width 1.3 1.5 -Post Debridement (cm) - Depth 0.2 0.3 -Total Square (Post) (cm) 1.30 0.75 -Area of Debridement (cm) - Length 1.0 0.5 -Area of Debridement (cm) - Width 1.3 1.5 -Total Square (Area) (cm) 1.30 0.75 -Tunneling No No -Undermining/Tunneling No No -Circular Undermining No No -Wound/Ulcer Outcome Not Healed Not Healed -Ulcer Cleansing Rinsed/ Rinsed/ Irrigated with Irrigated with Saline Saline -Foul Odor after Cleansing No No -Bioengineered Tissue No No -Bleeding Controlled with Pressure Pressure -Treatment Response Procedure Procedure Tolerated Well Tolerated Well -Offloading No No -Debridement - Subq, 1st 20sq cm Yes Yes Pain Scale: 0-10 Numeric Is Patient Pain Free? Yes Yes - Nurse 3 - General Ulcer D/C NN Start: 05/27/22 09:31 Freq: Status: Active Protocol: Activity Type Activity Date Activity User E-sign Co-sign Detail Recorded Client Recorded Date Recorded By Document 05/27/22 09:54 [facility] [id number] 05/27/22 09:54 [facility] Document 06/10/22 09:46 [id number] 06/10/22 09:47 05/27/22 06/10/22 09:54 09:46 Wound Care Center Nurse 3 #3 L Stump/Post op -Ulcer Cleansing Rinsed/ Rinsed/ Irrigated with Irrigated with Saline Saline -Foul Odor after Cleansing No No -Primary Dressing Applied C Hydrogel ($), C Hydrogel ($), NonAdherent NonAdherent Contact Layer Contact Layer -Primary Dressing Covered/Secured with Dry Gauze, Dry Gauze, Secured with Secured with Tape Tape Treatment Response Procedure Tolerated Well Pain Scale: 0-10 Numeric Is Patient Pain Free? Yes Yes - Visit Discharge Discharge Condition Stable Stable Ambulatory Status Wheelchair Wheelchair Transportation Private Auto Medication Reconcilliation completed & Yes provided to patient/care provider Clinical Summary of Care Provided Yes Assessment/Plan Assessment/Plan (1) Pressure ulcer of BKA stump, stage 4: CODE(S): T87.89 - Other complications of amputation stump; L89.894 - Pressure ulcer of other site, stage 4 (2) Diabetes mellitus with ulcer of lower extremity: CODE(S): E11.622 - Type 2 diabetes mellitus with other skin ulcer; L97.909 - Non-pressure chronic ulcer of unspecified part of unspecified lower leg with unspecified severity (3) Below-knee amputation of left lower extremity: CODE(S): S88.112A - Complete traumatic amputation at level between knee and ankle, left lower leg, initial encounter (4) Diabetes: CODE(S): E11.9 - Type 2 diabetes mellitus without complications (5) Smoker: CODE(S): F17.200 - Nicotine dependence, unspecified, uncomplicated PLAN: Plan Patient was evaluated at the wound center today. He has completed 10 applications of Theraskin. He has completed 10 applications of Epifix. Wound care -Collagen hydrogel covered with adaptic and topped with gauze daily after washing with soap and water. Compression - AMIE wrap or non-silicone stump manager training. He has stopped wearing his silicone stump manager training because is may be making the yudy wound macerated. Will discuss with Dr. Plata about my concerns with the femur not being covered by the flap and that it could potentially become a pressure area if the patient starts wearing his prosthesis. Bone culture 12/25/21 - Staphylococcus aureus. Pathology of bone showed dense fibroconnective tissue with reactive changes and foreign body giant cell reaction. He has completed the IV antibiotic, Cefazolin, for 6 weeks. Obtained a wound culture on 09/17/21 which was negative for bacterial growth. Wound culture from 07/09/21 positive for Staphylococcus aureus and Streptococcus agalactiae (B). He completed his Augmentin. Encouraged high protein diet to help with wound healing and low carb diet to help keep better control of blood sugars. He states he is not wearing his prosthesis. Encouraged patient to stop smoking as it may have deleterious effects on wound healing. Follow up 2 weeks. Follow-up sooner or report to the emergency department should new or concerning symptoms arise.
== END 2022-06-21 23:59 | disposition home or self-care (01) ==
LOC: WC 09:45
PROVIDERS: PCP Family Medicine; Visit Provider Nurse Practitioner Family
DX: T87.89 Other complications of amputation stump (principal); E11.622 Type 2 diabetes mellitus with other skin ulcer; Z89.512 Acquired absence of left leg below knee; L98.492 Non-pressure chronic ulcer of skin of other sites with fat layer exposed; Y83.5 Amputation of limb(s) as the cause of abnormal reaction of the patient, or of later complication, without mention of misadventure at the time of the procedure; F17.200 Nicotine dependence, unspecified, uncomplicated
CPT/HCPCS: 11042

== ENCOUNTER 2022-07-08 09:15 | Outpatient (RCR) | payer MEDICARE, MEDICAID, SELFPAY ==
[2022-06-22 01:33] VITALS: BP 137/76; PULSE 63; RESP 16; TEMP 35.8
[2022-06-24 09:32] VITALS: BP 143/79; PULSE 67; RESP 18; TEMP 35.8
--- NOTE | 2022-06-24 10:09 | PN.PCM_ITS ---
History of Present Illness Date of Service: 06/24/22 Chief Complaint: Ulcer on left BKA after I&D of a diabetic abscess/hematoma on 11/06/20 History of Wound: Surgery on 11/06/20 - Surgical preparation left below knee amputation stump with incision and drainage and excisional debridement with partial ostectomy tibia for osteomyelitis and evacuation hematoma for draining diabetic ulcer abscess. (He had his Left BKA on 04/17/20). Operative tissue and bone cultures were negative. Wound cultures from 11/02/20 positive for MSSA, Enterobacter cloacae complex, and Corynebacterium amycolatum. Prealbumin 9.9 on 11/07/20. He was evaluated by Dr. Boston on 12/06/21 for an operative debridement and pos sible osteomyelitis. Surgery with Dr. Boston on 12/25/21 for Debridement left lower extremity amputation stump skin, subcutaneous tissue, fascia, bone. Bone culture 12/25/21 - Staphylococcus aureus. Pathology of bone showed dense fibroconnective tissue with reactive changes and foreign body giant cell reaction. Pieces of bone with reactive changes. Wound culture from 09/17/21 showed no growth. Wound culture from 07/09/21 positive for Staphylococcus aureus and Streptococcus agalactiae (B). He was started on Augmentin and a Probiotic. Xray obtained on 10/01/21 of his left BKA stump because of his non healing ulcer. The xray showed bony abnormalities along the lateral aspect of the amputation site of the proximal tibia. Consider further evaluation to exclude osteomyelitis. He obtained this xray at [facility]. MRI obtained 10/31/21, at [facility], of his left BKA which showed Bone edema with contrast enhancement of the tibia consistent with osteomyelitis. Small fluid collection at the distal aspect of the amputated tibia suggestive of small abscess. He has has completed ten applications of Theraskin which did help decrease his ulcer size. 02/25/22-Unroofed the undermining from 9-3 o'clock to make wound care easier. Wound care - He has had 10 applications of Theraskin. Since he has had an operative debridement, he has had 10 applications of Epifix which he completed 04/08/22. Wound care will be moistened Garima topped with adpatic and covered with gauze daily after washing with soap and water. He is wearing a stump tip stretcher for compression. Today he denies any fever. He states his appetite is good. Progress of Wound: Left BKA ulcer is slightly smaller. The wound bed is beefy pink, there is undermining from 11-2 o'clock. Yudy wound is macerated but the patient states that he has been placing larger pieces of adaptic over the ulcer. Objective Data Objective Data Vital Signs: Vital Signs Temp Pulse Resp BP 96.5 F L 67 18 143/79 H 06/24/22 09:32 06/24/22 09:32 06/24/22 09:32 06/24/22 09:32 Charges/Coding Procedures Integumentary 111xxx-113xx: 78053 Rai subq tissue 20 sq cm/< Debridement Note Debridement Note Wound debrided: BKA stump ulcer Laterality: Left Wound Grade/Stage: StageIV Type of Debridement: Excisional debridement Anesthesia Used: 5% Lidocaine Gel and - Depth: Down to and including healthy tissue and in the subcutaneous layer Percentage of wound debrided: 100 Instrument Used: 3mm curette Tissue Removed: Devitalized tissue and slough Severity: Fat Layer Exposed Amount of bleeding with debridement: Mild Bleeding Controlled with: Compression and gauze Patient tolerated procedure: Patient tolerated procedure well Post-Debridement Measurements and Additional Note: Post-Debridement Measurements/Treatment - Nurse 1 - General Ulcer Assessment Start: 06/24/22 09:32 Freq: Status: Active Protocol: FREDI.GENEVA Activity Type Activity Date Activity User E-sign Co-sign Detail Recorded Client Recorded Date Recorded By Document 06/24/22 09:32 DL [id number] 06/24/22 09:36 DL 06/24/22 09:32 - Today's Visit Information Type of service Follow-up Visit (Physician/ALLERGIST/IMMUNOLOGIST ) Arrival Mode Wheelchair Transfer Assistance None Patient Identification Verified (Name & Yes ) Patient Requires Transmission-Based No Precautions Finger Stick Blood Sugar(mg/dl) (if not checked indicated): Blood Sugar Stated by Patient Vital Signs Temperature (97.8 F-99.1 F) 96.5 F L Temperature Source Temporal Pulse Rate (60-100) 67 Pulse Location Monitor Respiratory Rate (12-18) 18 Respiratory rate source Observation Blood Pressure (90/60-120/80) 143/79 H Blood Pressure Mean (mm Hg) 100 Source Monitor History Since Last Visit- (Skip if this is Patient's initial visit) Have you changed medications since your No last visit? Any new allergies or adverse reactions No Had a fall/change in ADL's that may No increase risk of falls Signs or symptoms of abuse and/or No neglect since last visit Has dressing in place as prescribed Yes Has compression in place as prescribed Yes Has offloadiing in place as prescribed Yes Experienced any changes in pain level or No management Pain Scale: 0-10 Numeric Is Patient Pain Free? Yes WC - Nurse 1 - General Ulcer Measurement Start: 06/24/22 09:32 Freq: Status: Active Protocol: Activity Type Activity Date Activity User E-sign Co-sign Detail Recorded Client Recorded Date Recorded By Document 06/24/22 09:32 DL [id number] 06/24/22 09:36 DL 06/24/22 09:32 Wound Center Nurse 1 #3 L Stump/Post op -Current Size (cm) - Length 1.3 -Current Size (cm) - Width 0.2 -Current Size (cm) - Depth 0.5 -Total Square Cm 0.26 -Photo Taken Yes -Exudate Amt Medium -Exudate Type Serosanguineous -Wound Margin Thickened & Rolled Under -Granulation Amt Medium (34-66%) -Granulation Quality [place] -Necrosis Amt Medium (34-66%) -Necrotic Tissue Type Adherent Slough -Structure Exposed N/A -Texture (Yudy-wound Skin Appearance) Scarring,Rash -Moisture (Yudy-wound Skin Appearance) Maceration -Color (Yudy-wound Skin Appearance) No Abnormality -Temperature (Yudy-wound Skin No Abnormality Appearance) (Pt Warm) -Tenderness on Palpation (Yudy-wound No Skin Appearance) -Ulcer Cleansing Rinsed/ Irrigated with Saline -Foul Odor after Cleansing No -Anesthetic Used 5% Lidocaine Gel WC - Nurse 2 - General Ulcer CM Notes Start: 06/24/22 09:32 Freq: Status: Active Protocol: Activity Type Activity Date Activity User E-sign Co-sign Detail Recorded Client Recorded Date Recorded By Document 06/24/22 09:48 MARSHALL [id number] 06/24/22 09:58 MARSHALL 06/24/22 09:48 Wound Center Nurse 2 -Time 09:49 -Correct Patient Yes -Correct Side, Site, Position Yes -Correct Procedure Yes -Procedure Performed Yes -Type of Procedure Debridement -Clinical Debridement Subcutaneous -Tissue Removed Subcutaneous -Post Debridement (cm) - Length 0.5 -Post Debridement (cm) - Width 0.8 -Post Debridement (cm) - Depth 0.2 -Total Square (Post) (cm) 0.40 -Area of Debridement (cm) - Length 0.5 -Area of Debridement (cm) - Width 0.8 -Total Square (Area) (cm) 0.40 -Tunneling No -Undermining/Tunneling Yes -Undermining/Tunneling Starts (O'clock 11 ) -Undermining/Tunneling Ends (O'clock) 2 -Maximum Distance (cm) 0.4 -Circular Undermining No -Wound/Ulcer Outcome Not Healed -Ulcer Cleansing Rinsed/ Irrigated with Saline -Foul Odor after Cleansing No -Bioengineered Tissue No -Treatment Response Procedure Tolerated Well -Offloading No -Debridement - Subq, 1st 20sq cm Yes Pain Scale: 0-10 Numeric Is Patient Pain Free? Yes - Nurse 3 - General Ulcer D/C NN Start: 06/24/22 09:32 Freq: Status: Active Protocol: Activity Type Activity Date Activity User E-sign Co-sign Detail Recorded Client Recorded Date Recorded By Document 06/24/22 10:02 MARSHALL [id number] 06/24/22 10:04 MARSHALL 06/24/22 10:02 Wound Care Center Nurse 3 #3 L Stump/Post op -Ulcer Cleansing Rinsed/ Irrigated with Saline -Foul Odor after Cleansing No -Primary Dressing Applied C Hydrogel ($), NonAdherent Contact Layer -Primary Dressing Covered/Secured with Dry Gauze, Secured with Tape Pain Scale: 0-10 Numeric Is Patient Pain Free? Yes - Visit Discharge Discharge Condition Stable Ambulatory Status Wheelchair Transportation Private Auto Medication Reconcilliation completed & Yes provided to patient/care provider Clinical Summary of Care Provided Yes Assessment/Plan Assessment/Plan (1) Pressure ulcer of BKA stump, stage 4: CODE(S): T87.89 - Other complications of amputation stump; L89.894 - Pre ssure ulcer of other site, stage 4 (2) Diabetes mellitus with ulcer of lower extremity: CODE(S): E11.622 - Type 2 diabetes mellitus with other skin ulcer; L97.909 - Non-pressure chronic ulcer of unspecified part of unspecified lower leg with unspecified severity (3) Below-knee amputation of left lower extremity: CODE(S): S88.112A - Complete traumatic amputation at level between knee and ankle, left lower leg, initial encounter (4) Diabetes: CODE(S): E11.9 - Type 2 diabetes mellitus without complications (5) Smoker: CODE(S): F17.200 - Nicotine dependence, unspecified, uncomplicated PLAN: Plan Patient was evaluated at the wound center today. He has completed 10 applications of Epifix. Wound care -Collagen hydrogel covered with adaptic and topped with gauze daily after washing with soap and water. Compression - AMIE wrap or non-silicone stump tip stretcher. He has stopped wearing his silicone stump tip stretcher because is may be making the yudy wound macerated. I discussed my concerns with the femur not being covered by the flap and that it could potentially become a pressure area if the patient starts wearing his prosthesis with Dr. Plata. He states that he would probably have to shorten the bone to cover it with a flap. The patient would like to avoid surgery at this time. Bone culture 12/25/21 - Staphylococcus aureus. Pathology of bone showed dense fibroconnective tissue with reactive changes and foreign body giant cell reaction. He has completed the IV antibiotic, Cefazolin, for 6 weeks. Obtained a wound culture on 09/17/21 which was negative for bacterial growth. Wound culture from 07/09/21 positive for Staphylococcus aureus and Streptococcus agalactiae (B). He completed his Augmentin. A wound culture was obtained today do to delay in wound healing.? A positive culture will necessitate antibiotic therapy. Encouraged high protein diet to help with wound healing and low carb diet to help keep better control of blood sugars. He states he is not wearing his prosthesis. Encouraged patient to stop smoking as it may have deleterious effects on wound healing. Follow up 2 weeks. Follow-up sooner or report to the emergency department should new or concerning symptoms arise.
--- NOTE | 2022-06-27 11:52 | WC ---
Received a message from Sherly Etienne CNP regarding her calling in an ATB for this patient due to his positive wound cultures from Friday. Called and had to leave him a voicemail regarding Augmentin was called in and to reach out to his pharmacy to get this started. Advised him to call back at [phone] if he has further questions.
[2022-07-08 09:05] VITALS: BP 165/55; PULSE 57; RESP 16; TEMP 36
--- NOTE | 2022-07-08 12:07 | PCM.WC.PN ---
History of Present Illness Date of Service: 07/08/22 Chief Complaint: Ulcer on left BKA after I&D of a diabetic abscess/hematoma on 11/06/20 History of Wound: Surgery on 11/06/20 - Surgical preparation left below knee amputation stump with incision and drainage and excisional debridement with partial ostectomy tibia for osteomyelitis and evacuation hematoma for draining diabetic ulcer abscess. (He had his Left BKA on 04/17/20). Operative tissue and bone cultures were negative. Wound cultures from 11/02/20 positive for MSSA, Enterobacter cloacae complex, and Corynebacterium amycolatum. Prealbumin 9.9 on 11/07/20. He was evaluated by Dr. Boston on 12/06/21 for an operative debridement and possible osteomyelitis. Surgery with Dr. Boston on 12/25/21 for Debridement left lower extremity amputation stump skin, subcutaneous tissue, fascia, bone. Bone culture 12/25/21 - Staphylococcus aureus. Pathology of bone showed dense fibroconnective tissue with reactive changes and foreign body giant cell reaction. Pieces of bone with reactive changes. Wound culture from 09/17/21 showed no growth. Wound culture from 07/09/21 positive for Staphylococcus aureus and Streptococcus agalactiae (B). He was started on Augmentin and a Probiotic. Xray obtained on 10/01/21 of his left BKA stump because of his non healing ulcer. The xray showed bony abnormalities along the lateral aspect of the amputation site of the proximal tibia. Consider further evaluation to exclude osteomyelitis. He obtained this xray at [facility]. MRI obtained 10/31/21, at [facility], of his left BKA which showed Bone edema with contrast enhancement of the tibia consistent with osteomyelitis. Small fluid collection at the distal aspect of the amputated tibia suggestive of small abscess. Wound culture from 06/24/22 was positive for Staphylococcus aureus. He was treated with Augmentin. He has has completed ten applications of Theraskin which did help decrease his ulcer size. 02/25/22-Unroofed the undermining from 9-3 o'clock to make wound care easier. Wound care - He has had 10 applications of Theraskin. Since he has had an operative debridement, he has had 10 applications of Epifix which he completed 04/08/22. Wound care will be moistened Garima topped with adpatic and covered with gauze daily after washing with soap and water. He is wearing a stump jailer chief for compression. Today he denies any fever. He states his appetite is good. Progress of Wound: Left BKA ulcer is slightly smaller. The wound bed is beefy pink, there is undermining from 11-2 o'clock. Yudy wound is improved. Concern that with the way the ulcer is healing, there is bone that is not covered by the flap and unsure if he is going to be able to tolerate wearing his prosthesis once this ulcer is healed without the ulcer reoccurring or having pain from pressure on the bone. Objective Data Objective Data Vital Signs: Vital Signs Temp Pulse Resp BP O2 Del Method 96.8 F L 57 L 16 165/55 H Room Air 07/08/22 09:05 07/08/22 09:05 07/08/22 09:05 07/08/22 09:05 07/08/22 09:05 Oxygen Delivery Method Room Air Lab / Micro Data Micro: Microbiology 06/24/22 09:55 Wound Abcess - Leg, Left Gram Stain - Final 06/24/22 09:55 Wound Abcess - Leg, Left Wound Culture - Final Staphylococcus aureus 06/24/22 09:55 Wound Abcess - Leg, Left Anaerobic Culture - Final No anaerobic bacteria isolated. Charges/Coding Procedures Integumentary 111xxx-113xx: 19773 Ria subq tissue 20 sq cm/< Debridement Note Debridement Note Wound debrided: BKA stump ulcer Laterality: Left Wound Grade/Stage: StageIV Type of Debridement: Excisional debridement Anesthesia Used: 5% Lidocaine Gel and - Depth: Down to and including healthy tissue and in the subcutaneous layer Percentage of wound debrided: 100 Instrument Used: 3mm curette Tissue Removed: Devitalized tissue and slough Severity: Fat Layer Exposed Amount of bleeding with debridement: Mild Bleeding Controlled with: Compression and gauze Patient tolerated procedure: Patient tolerated procedure well Post-Debridement Measurements and Additional Note: Post-Debridement Measurements/Treatment WC - Nurse 1 - General Ulcer Assessment Start: 06/24/22 09:32 Freq: Status: Active Protocol: ARLETH Activity Type Activity Date Activity User E-sign Co-sign Detail Recorded Client Recorded Date Recorded By Document 06/24/22 09:32 DL [id number] 04/03/23 09:36 DL Document 07/08/22 09:05 [facility] [id number] 07/08/22 09:10 [facility] 06/24/22 07/08/22 09:32 09:05 - Today's Visit Information Type of service Follow-up Visit Follow-up Visit (Physician/SOLDER TECHNICIAN (Physician/SOLDER TECHNICIAN ) ) Arrival Mode Wheelchair Wheelchair Transfer Assistance None None Patient Identification Verified (Name & Yes Yes ) Patient Requires Transmission-Based No No Precautions Finger Stick Blood Sugar(mg/dl) (if not checked indicated): Blood Sugar Stated by Patient Vital Signs Temperature (97.8 F-99.1 F) 96.5 F L 96.8 F L Temperature Source Temporal Temporal Pulse Rate (60-100) 67 57 L Pulse Location Monitor Monitor Respiratory Rate (12-18) 18 16 Respiratory rate source Observation Observation Oxygen Delivery Method Room Air Blood Pressure (90/60-120/80) 143/79 H 165/55 H Blood Pressure Mean (mm Hg) 100 91 Source Monitor Monitor Position Sitting Blood Pressure Location Left Forearm History Since Last Visit- (Skip if this is Patient's initial visit) Have you changed medications since your No No last visit? Any new allergies or adverse reactions No No Had a fall/change in ADL's that may No No increase risk of falls Signs or symptoms of abuse and/or No No neglect since last visit Have you been in the hospital since your No last visit? Has dressing in place as prescribed Yes Yes Has compression in place as prescribed Yes Yes Has offloadiing in place as prescribed Yes Yes Experienced any changes in pain level or No No management Right Footwear Regular Shoe Pain Scale: 0-10 Numeric Is Patient Pain Free? Yes Yes - Nurse 1 - General Ulcer Measurement Start: 06/24/22 09:32 Freq: Status: Active Protocol: Activity Type Activity Date Activity User E-sign Co-sign Detail Recorded Client Recorded Date Recorded By Document 06/24/22 09:32 DL [id number] 06/24/22 09:36 DL Document 07/08/22 09:05 [facility] [id number] 07/08/22 09:10 [facility] 06/24/22 07/08/22 09:32 09:05 Wound Center Nurse 1 #3 L Stump/Post op -Combined with other wound No -Current Size (cm) - Length 1.3 0.3 -Current Size (cm) - Width 0.2 1.1 -Current Size (cm) - Depth 0.5 0.3 -Total Square Cm 0.26 0.33 -Date of Last Picture (Recall this 07/08/22 field) -Photo Taken Yes Yes -Epithelialization None Present -Tunneling No -Undermining/Tunneling Yes -Undermining/Tunneling Starts (O'clock 9 ) -Undermining/Tunneling Ends (O'clock) 1 -Maximum Distance (cm) 0.2 -Circular Undermining No -Exudate Amt Medium Medium -Exudate Type Serosanguineous Serous -Wound Margin Thickened & Distinct, Rolled Under Outline Attached -Granulation Amt Medium (34-66%) Small (1-33%) -Granulation Quality [place] -Slough/Fibrin Yes -Necrosis Amt Medium (34-66%) Medium (34-66%) -Necrotic Tissue Type Adherent Slough Adherent Slough -Structure Exposed N/A -Texture (Yudy-wound Skin Appearance) Scarring,Rash Assessed, Excoriation, Scarring -Moisture (Yudy-wound Skin Appearance) Maceration Assessed,Dry/ Scaly -Color (Yudy-wound Skin Appearance) No Abnormality Assessed, Erythema -Temperature (Yudy-wound Skin No Abnormality No Abnormality Appearance) (Pt Warm) (Pt Warm) -Tenderness on Palpation (Yudy-wound No No Skin Appearance) -Ulcer Cleansing Rinsed/ Rinsed/ Irrigated with Irrigated with Saline Saline -Foul Odor after Cleansing No No -Anesthetic Used 5% Lidocaine 5% Lidocaine Gel Gel WC - Nurse 2 - General Ulcer CM Notes Start: 06/24/22 09:32 Freq: Status: Active Protocol: Activity Type Activity Date Activity User E-sign Co-sign Detail Recorded Client Recorded Date Recorded By Document 06/24/22 09:48 MARSHALL [id number] 06/24/22 09:58 Document 07/08/22 09:39 MARSHALL [id number] 07/08/22 09:42 06/24/22 07/08/22 09:48 09:39 Wound Center Nurse 2 #3 L Stump/Post op -Time 09:49 09:40 -Correct Patient Yes Yes -Correct Side, Site, Position Yes Yes -Correct Procedure Yes Yes -Procedure Performed Yes Yes -Type of Procedure Debridement Debridement -Clinical Debridement Subcutaneous Subcutaneous -Tissue Removed Subcutaneous Subcutaneous -Post Debridement (cm) - Length 0.5 0.4 -Post Debridement (cm) - Width 0.8 1.5 -Post Debridement (cm) - Depth 0.2 0.3 -Total Square (Post) (cm) 0.40 0.60 -Area of Debridement (cm) - Length 0.5 0.4 -Area of Debridement (cm) - Width 0.8 1.5 -Total Square (Area) (cm) 0.40 0.60 -Tunneling No No -Undermining/Tunneling Yes No -Undermining/Tunneling Starts (O'clock 11 ) -Undermining/Tunneling Ends (O'clock) 2 -Maximum Distance (cm) 0.4 -Circular Undermining No No -Wound/Ulcer Outcome Not Healed Not Healed -Ulcer Cleansing Rinsed/ Rinsed/ Irrigated with Irrigated with Saline Saline -Foul Odor after Cleansing No No -Bioengineered Tissue No No -Bleeding Controlled with Pressure -Treatment Response Procedure Procedure Tolerated Well Tolerated Well -Offloading No No -Debridement - Subq, 1st 20sq cm Yes Yes Pain Scale: 0-10 Numeric Is Patient Pain Free? Yes Yes - Nurse 3 - General Ulcer D/C NN Start: 06/24/22 09:32 Freq: Status: Active Protocol: Activity Type Activity Date Activity User E-sign Co-sign Detail Recorded Client Recorded Date Recorded By Document 06/24/22 10:02 MARSHALL [id number] 06/24/22 10:04 Document 07/08/22 09:52 [facility] [id number] 07/08/22 09:53 [facility] 06/24/22 07/08/22 10:02 09:52 Wound Care Center Nurse 3 #3 L Stump/Post op -Ulcer Cleansing Rinsed/ Rinsed/ Irrigated with Irrigated with Saline Saline -Foul Odor after Cleansing No No -Primary Dressing Applied C Hydrogel ($), NonAdherent NonAdherent Contact Layer, Contact Layer Promogran Garima Matter -Primary Dressing Covered/Secured with Dry Gauze, Dry Gauze, Secured with Secured with Tape Tape -Promogran Garima Matter 1 Treatment Response Procedure Tolerated Well Pain Scale: 0-10 Numeric Is Patient Pain Free? Yes Yes - Visit Discharge Discharge Condition Stable Stable Ambulatory Status Wheelchair Wheelchair Transportation Private Auto Medication Reconcilliation completed & Yes provided to patient/care provider Clinical Summary of Care Provided Yes Assessment/Plan Assessment/Plan (1) Pressure ulcer of BKA stump, stage 4: CODE(S): T87.89 - Other complications of amputation stump; L89.894 - Pressure ulcer of other site, stage 4 (2) Diabetes mellitus with ulcer of lower extremity: CODE(S): E11.622 - Type 2 diabetes mellitus with other skin ulcer; L97.909 - Non-pressure chronic ulcer of unspecified part of unspecified lower leg with unspecified severity (3) Below-knee amputation of left lower extremity: CODE(S): S88.112A - Complete traumatic amputation at level between knee and ankle, left lower leg, initial encounter (4) Diabetes: CODE(S): E11.9 - Type 2 diabetes mellitus without complications (5) Smoker: CODE(S): F17.200 - Nicotine dependence, unspecified, uncomplicated PLAN: Plan Patient was evaluated at the wound center today. He has completed 10 applications of Epifix. Wound care - Moistened Garima covered with adaptic and topped with gauze daily after washing with soap and water. Compression - AMIE wrap or non-silicone stump jailer chief. He has stopped wearing his silicone stump jailer chief because is may have been causing maceration to the yudy wound. I discussed my concerns with the femur not being covered by the flap and that it could potentially become a pressure area if the patient starts wearing his prosthesis with Dr. Plata. He states that he would probably have to shorten the bone to cover it with a flap. If that occurs then it may have to become an AKA or if it stays a BKA, the patient may not be able to wear his prosthesis. The patient would like to avoid surgery at this time. Bone culture 12/25/21 - Staphylococcus aureus. Pathology of bone showed dense fibroconnective tissue with reactive changes and foreign body giant cell reaction. He has completed the IV antibiotic, Cefazolin, for 6 weeks. Obtained a wound culture on 09/17/21 which was negative for bacterial growth. Wound culture from 07/09/21 positive for Staphylococcus aureus and Streptococcus agalactiae (B). He completed his Augmentin. A wound culture from 06/24/22 was positive for Staphylococcus aureus and he was placed on Augmentin. Encouraged high protein diet to help with wound healing and low carb diet to help keep better control of blood sugars. He states he is not wearing his prosthesis. Encouraged patient to stop smoking as it may have deleterious effects on wound healing. Follow up 2 weeks. Follow-up sooner or report to the emergency department should new or concerning symptoms arise.
== END 2022-07-21 23:59 | disposition home or self-care (01) ==
LOC: WC 09:15
PROVIDERS: PCP Family Medicine; Visit Provider Nurse Practitioner Family
DX: T87.89 Other complications of amputation stump (principal); E11.622 Type 2 diabetes mellitus with other skin ulcer; Z89.512 Acquired absence of left leg below knee; L98.492 Non-pressure chronic ulcer of skin of other sites with fat layer exposed; Y83.5 Amputation of limb(s) as the cause of abnormal reaction of the patient, or of later complication, without mention of misadventure at the time of the procedure; F17.200 Nicotine dependence, unspecified, uncomplicated; Z86.14 Personal history of Methicillin resistant Staphylococcus aureus infection
CPT/HCPCS: 11042; 87070; 87075; 87077; 87186; 87205

== ENCOUNTER 2022-08-08 13:15 | Outpatient (RCR) | payer MEDICARE, MEDICAID, SELFPAY ==
[2022-07-22 00:29] VITALS: BP 165/55; PULSE 57; RESP 16; TEMP 36
[2022-07-22 09:08] VITALS: BP 139/73; PULSE 75; RESP 18; TEMP 36.2
--- NOTE | 2022-07-22 12:18 | PN.PCM_ITS ---
History of Present Illness Date of Service: 07/22/22 Chief Complaint: Ulcer on left BKA after I&D of a diabetic abscess/hematoma on 11/06/20 History of Wound: Surgery on 11/06/20 - Surgical preparation left below knee amputation stump with incision and drainage and excisional debridement with partial ostectomy tibia for osteomyelitis and evacuation hematoma for draining diabetic ulcer abscess. (He had his Left BKA on 04/17/20). Operative tissue and bone cultures were negative. Wound cultures from 11/02/20 positive for MSSA, Enterobacter cloacae complex, and Corynebacterium amycolatum. Prealbumin 9.9 on 11/07/20. He was evaluated by Dr. Boston on 12/06/21 for an operative debridement and pos sible osteomyelitis. Surgery with Dr. Boston on 12/25/21 for Debridement left lower extremity amputation stump skin, subcutaneous tissue, fascia, bone. Bone culture 12/25/21 - Staphylococcus aureus. Pathology of bone showed dense fibroconnective tissue with reactive changes and foreign body giant cell reaction. Pieces of bone with reactive changes. Wound culture from 09/17/21 showed no growth. Wound culture from 07/09/21 positive for Staphylococcus aureus and Streptococcus agalactiae (B). He was started on Augmentin and a Probiotic. Xray obtained on 10/01/21 of his left BKA stump because of his non healing ulcer. The xray showed bony abnormalities along the lateral aspect of the amputation site of the proximal tibia. Consider further evaluation to exclude osteomyelitis. He obtained this xray at [facility]. MRI obtained 10/31/21, at [facility], of his left BKA which showed Bone edema with contrast enhancement of the tibia consistent with osteomyelitis. Small fluid collection at the distal aspect of the amputated tibia suggestive of small abscess. Wound culture from 06/24/22 was positive for Staphylococcus aureus. He was treated with Augmentin. He has has completed ten applications of Theraskin which did help decrease his ulcer size. 02/25/22-Unroofed the undermining from 9-3 o'clock to make wound care easier. Wound care - He has had 10 applications of Theraskin. Since he has had an operative debridement, he has had 10 applications of Epifix which he completed 04/08/22. Wound care will be moistened Garima topped with adpatic and covered with gauze daily after washing with soap and water. He is wearing a stump salesperson burial needs for compression. Today he denies any fever. He states his appetite is good. Progress of Wound: Left BKA ulcer is slightly smaller. The wound bed is beefy pink. Yudy wound is clear. He has concerns if he is ever going to be able to wear his prosthesis. Objective Data Objective Data Vital Signs: Vital Signs Temp Pulse Resp BP 97.2 F L 75 18 139/73 H 07/22/22 09:08 07/22/22 09:08 07/22/22 09:08 07/22/22 09:08 Charges/Coding Procedures Integumentary 111xxx-113xx: 20297 Ria subq tissue 20 sq cm/< Debridement Note Debridement Note Wound debrided: BKA stump ulcer Laterality: Left Wound Grade/Stage: StageIV Type of Debridement: Excisional debridement Anesthesia Used: 5% Lidocaine Gel and - Depth: Down to and including healthy tissue and in the subcutaneous layer Percentage of wound debrided: 100 Instrument Used: 3mm curette Tissue Removed: Devitalized tissue and slough Severity: Fat Layer Exposed Amount of bleeding with debridement: Mild Bleeding Controlled with: Compression and gauze Patient tolerated procedure: Patient tolerated procedure well Post-Debridement Measurements and Additional Note: Post-Debridement Measurements/Treatment - Nurse 1 - General Ulcer Assessment Start: 07/22/22 09:08 Freq: Status: Active Protocol: FREDI.LOWKEYAT Activity Type Activity Date Activity User E-sign Co-sign Detail Recorded Client Recorded Date Recorded By Document 07/22/22 09:08 JEOVANY [id number] 07/22/22 09:14 JEOVANY 07/22/22 09:08 - Today's Visit Information Type of service Follow-up Visit (Physician/ELECTRICAL INSTRUMENT MAKER ) Arrival Mode Wheelchair Transfer Assistance None Patient Identification Verified (Name & Yes ) Patient Requires Transmission-Based No Precautions Safety Precautions NA Finger Stick Blood Sugar(mg/dl) (if 113 indicated): Blood Sugar Stated by Patient Vital Signs Temperature (97.8 F-99.1 F) 97.2 F L Temperature Source Temporal Pulse Rate (60-100) 75 Respiratory Rate (12-18) 18 Blood Pressure (90/60-120/80) 139/73 H Blood Pressure Mean (mm Hg) 95 History Since Last Visit- (Skip if this is Patient's initial visit) Have you changed medications since your No last visit? Any new allergies or adverse reactions No Had a fall/change in ADL's that may No increase risk of falls Signs or symptoms of abuse and/or No neglect since last visit Has dressing in place as prescribed Yes Has compression in place as prescribed Yes Has offloadiing in place as prescribed N/A Experienced any changes in pain level or No management Pain Scale: 0-10 Numeric Is Patient Pain Free? Yes - Nurse 1 - General Ulcer Measurement Start: 07/22/22 09:08 Freq: Status: Active Protocol: Activity Type Activity Date Activity User E-sign Co-sign Detail Recorded Client Recorded Date Recorded By Document 07/22/22 09:08 JEOVANY [id number] 07/22/22 09:14 PL 07/22/22 09:08 Wound Center Nurse 1 #3 L Stump/Post op -Current Size (cm) - Length 0.2 -Current Size (cm) - Width 1.0 -Current Size (cm) - Depth 0.2 -Total Square Cm 0.20 -Epithelialization Medium 34-66% -Tunneling No -Undermining/Tunneling No -Circular Undermining No -Exudate Amt Small -Exudate Type Serosanguineous -Granulation Amt Large (67-100%) -Granulation Quality [place] -Necrosis Amt Small (1-33%) -Necrotic Tissue Type Adherent Slough -Moisture (Yudy-wound Skin Appearance) No Abnormality -Temperature (Yudy-wound Skin No Abnormality Appearance) (Pt Warm) -Ulcer Cleansing Rinsed/ Irrigated with Saline -Foul Odor after Cleansing No -Anesthetic Used 5% Lidocaine Gel - Nurse 2 - General Ulcer CM Notes Start: 07/22/22 09:08 Freq: Status: Active Protocol: Activity Type Activity Date Activity User E-sign Co-sign Detail Recorded Client Recorded Date Recorded By Document 07/22/22 09:32 MARSHALL [id number] 07/22/22 09:36 MARSHALL 07/22/22 09:32 Wound Center Nurse 2 -Time 09:33 -Correct Patient Yes -Correct Side, Site, Position Yes -Correct Procedure Yes -Procedure Performed Yes -Type of Procedure Debridement -Clinical Debridement Subcutaneous -Tissue Removed Subcutaneous -Post Debridement (cm) - Length 0.4 -Post Debridement (cm) - Width 1.3 -Post Debridement (cm) - Depth 0.3 -Total Square (Post) (cm) 0.52 -Area of Debridement (cm) - Length 0.4 -Area of Debridement (cm) - Width 1.3 -Total Square (Area) (cm) 0.52 -Tunneling No -Undermining/Tunneling No -Circular Undermining No -Wound/Ulcer Outcome Not Healed -Ulcer Cleansing Rinsed/ Irrigated with Saline -Foul Odor after Cleansing No -Bioengineered Tissue No -Bleeding Controlled with Pressure -Treatment Response Procedure Tolerated Well -Offloading No -Assistive Device(s) Wheelchair -Debridement - Subq, 1st 20sq cm Yes Pain Scale: 0-10 Numeric Is Patient Pain Free? Yes - Nurse 3 - General Ulcer D/C NN Start: 07/22/22 09:08 Freq: Status: Active Protocol: Activity Type Activity Date Activity User E-sign Co-sign Detail Recorded Client Recorded Date Recorded By Document 07/22/22 09:51 PL [id number] 07/22/22 09:51 PL 07/22/22 09:51 Wound Care Center Nurse 3 #3 L Stump/Post op -Ulcer Cleansing Rinsed/ Irrigated with Saline -Foul Odor after Cleansing No -Primary Dressing Applied Promogran Garima Matter -Primary Dressing Covered/Secured with Dry Gauze, Secured with Tape -Promogran Gar[place] Matter 1 Pain Scale: 0-10 Numeric Is Patient Pain Free? Yes - Visit Discharge Discharge Condition Stable Ambulatory Status Wheelchair Assessment/Plan Assessment/Plan (1) Pressure ulcer of BKA stump, stage 4: CODE(S): T87.89 - Other complications of amputation stump; L89.894 - Pressure ulcer of other site, stage 4 (2) Diabetes mellitus with ulcer of lower extremity: CODE(S): E11.622 - Type 2 diabetes mellitus with other skin ulcer; L97.909 - Non-pressure chronic ulcer of unspecified part of unspecified lower leg with unspecified severity (3) Below-knee amputation of left lower extremity: CODE(S): S88.112A - Complete traumatic amputation at level between knee and ankle, left lower leg, initial encounter (4) Diabetes: CODE(S): E11.9 - Type 2 diabetes mellitus without complications (5) Smoker: CODE(S): F17.200 - Nicotine dependence, unspecified, uncomplicated PLAN: Plan Patient was evaluated at the wound center today. He has completed 10 applications of Epifix. Wound care - Moistened Garima covered with adaptic and topped with gauze daily after washing with soap and water. Compression - AMIE wrap or non-silicone stump salesperson burial needs. He has stopped wearing his silicone stump salesperson burial needs because is may have been causing maceration to the yudy wound. I discussed my concerns with the femur not being covered by the flap and that it could potentially become a pressure area if the patient starts wearing his prosthesis with Dr. Plata. He states that he would probably have to shorten the bone to cover it with a flap. If that occurs then it may have to become an AKA or if it stays a BKA, the patient may not be able to wear his prosthesis. The patient would like to avoid surgery at this time. Bone culture 12/25/21 - Staphylococcus aureus. Pathology of bone showed dense fibroconnective tissue with reactive changes and foreign body giant cell reaction. He has completed the IV antibiotic, Cefazolin, for 6 weeks. Obtained a wound culture on 09/17/21 which was negative for bacterial growth. Wound culture from 07/09/21 positive for Staphylococcus aureus and Streptococcus agalactiae (B). He completed his Augmentin. A wound culture from 06/24/22 was positive for Staphylococcus aureus and he was placed on Augmentin. Encouraged high protein diet to help with wound healing and low carb diet to help keep better control of blood sugars. He states he is not wearing his prosthesis. Encouraged patient to stop smoking as it may have deleterious effects on wound healing. Follow up in [address] Plata at the wound center for further evaluation. Follow up 2 weeks. Follow-up sooner or report to the emergency department should new or concerning symptoms arise.
[2022-08-08 13:19] VITALS: BP 163/85; PULSE 67; RESP 16; TEMP 35.8
--- NOTE | 2022-08-08 15:38 | PCM.WC.PN ---
History of Present Illness Date of Service: 08/08/22 Chief Complaint: Ulcer on left BKA after I&D of a diabetic abscess/hematoma on 11/06/20 History of Wound: Surgery on 11/06/20 - Surgical preparation left below knee amputation stump with incision and drainage and excisional debridement with partial ostectomy tibia for osteomyelitis and evacuation hematoma for draining diabetic ulcer abscess. (He had his Left BKA on 04/17/20). Operative tissue and bone cultures were negative. Wound cultures from 11/02/20 positive for MSSA, Enterobacter cloacae complex, and Corynebacterium amycolatum. Prealbumin 9.9 on 11/07/20. He was evaluated by Dr. Boston on 12/06/21 for an operative debridement and possible osteomyelitis. Surgery with Dr. Boston on 12/25/21 for Debridement left lower extremity amputation stump skin, subcutaneous tissue, fascia, bone. Bone culture 12/25/21 - Staphylococcus aureus. Pathology of bone showed dense fibroconnective tissue with reactive changes and foreign body giant cell reaction. Pieces of bone with reactive changes. Wound culture from 09/17/21 showed no growth. Wound culture from 07/09/21 positive for Staphylococcus aureus and Streptococcus agalactiae (B). He was started on Augmentin and a Probiotic. Xray obtained on 10/01/21 of his left BKA stump because of his non healing ulcer. The xray showed bony abnormalities along the lateral aspect of the amputation site of the proximal tibia. Consider further evaluation to exclude osteomyelitis. He obtained this xray at [facility]. MRI obtained 10/31/21, at [facility], of his left BKA which showed Bone edema with contrast enhancement of the tibia consistent with osteomyelitis. Small fluid collection at the distal aspect of the amputated tibia suggestive of small abscess. Wound culture from 06/24/22 was positive for Staphylococcus aureus. He was treated with Augmentin. He has has completed ten applications of Theraskin which did help decrease his ulcer size. 02/25/22-Unroofed the undermining from 9-3 o'clock to make wound care easier. Wound care - He has had 10 applications of Theraskin. Since he has had an operative debridement, he has had 10 applications of Epifix which he completed 04/08/22. Wound care will be moistened Garima topped with adpatic and covered with gauze daily after washing with soap and water. He is wearing a stump gunner's mate m for compression. Today he denies any fever. He states his appetite is good. Progress of Wound: Left BKA ulcer's progress is starting to plateau. Objective Data Objective Data Vital Signs: Vital Signs Temp Pulse Resp BP O2 Del Method 96.5 F L 67 16 163/85 H Room Air 08/08/22 13:19 08/08/22 13:19 08/08/22 13:19 08/08/22 13:19 08/08/22 13:19 Oxygen Delivery Method Room Air Lab / Micro Data Attestation: I reviewed the patient's lab results. Charges/Coding Procedures Integumentary 111xxx-113xx: 04694 Ria subq tissue 20 sq cm/< (ICD-10 - L97.922, M79.605, T87.89, Z86.14, E11.9, Z89.512, F17.200) Debridement Note Debridement Note Wound debrided: #3 Left BKA stump. Laterality: Left Wound Grade/Stage: 4. Type of Debridement: Excisional debridement Anesthesia Used: 4% Lidocaine Solution Depth: Down to and including healthy tissue and in the subcutaneous layer Percentage of wound debrided: 100 Instrument Used: 5mm curette Tissue Removed: subcutaneous tissue Severity: Fat Layer Exposed Amount of bleeding with debridement: Mild Bleeding Controlled with: Pressure and Compression and gauze Patient tolerated procedure: Patient tolerated procedure well Post-Debridement Measurements and Additional Note: Post-Debridement Measurements/Treatment - Nurse 1 - General Ulcer Assessment Start: 07/22/22 09:08 Freq: Status: Active Protocol: ARLETH Activity Type Activity Date Activity User E-sign Co-sign Detail Recorded Client Recorded Date Recorded By Document 07/22/22 09:08 PL [id number] 07/22/22 09:14 PL Document 08/08/22 13:19 [facility] [id number] 08/08/22 13:28 [facility] 07/22/22 08/08/22 09:08 13:19 - Today's Visit Information Type of service Follow-up Visit Follow-up Visit (Physician/DRAFTER (Physician/DRAFTER ) ) Arrival Mode Wheelchair Wheelchair Transfer Assistance None None Patient Identification Verified (Name & Yes Yes ) Patient Requires Transmission-Based No No Precautions Safety Precautions NA Finger Stick Blood Sugar(mg/dl) (if 113 indicated): Blood Sugar Stated by Patient Vital Signs Temperature (97.8 F-99.1 F) 97.2 F L 96.5 F L Temperature Source Temporal Temporal Pulse Rate (60-100) 75 67 Pulse Location Monitor Respiratory Rate (12-18) 18 16 Respiratory rate source Observation Oxygen Delivery Method Room Air Blood Pressure (90/60-120/80) 139/73 H 163/85 H Blood Pressure Mean (mm Hg) 95 111 Source Monitor Position Sitting Blood Pressure Location Right Arm History Since Last Visit- (Skip if this is Patient's initial visit) Have you changed medications since your No No last visit? Any new allergies or adverse reactions No No Had a fall/change in ADL's that may No No increase risk of falls Signs or symptoms of abuse and/or No No neglect since last visit Have you been in the hospital since your No last visit? Has dressing in place as prescribed Yes Yes Has compression in place as prescribed Yes N/A Has offloadiing in place as prescribed N/A N/A Experienced any changes in pain level or No No management Pain Scale: 0-10 Numeric Is Patient Pain Free? Yes Yes WC - Nurse 1 - General Ulcer Measurement Start: 07/22/22 09:08 Freq: Status: Active Protocol: Activity Type Activity Date Activity User E-sign Co-sign Detail Recorded Client Recorded Date Recorded By Document 07/22/22 09:08 PL [id number] 07/22/22 09:14 PL Document 08/08/22 13:19 [facility] [id number] 08/08/22 13:28 [facility] 07/22/22 08/08/22 09:08 13:19 Wound Center Nurse 1 #3 L Stump/Post op -Combined with other wound No -Current Size (cm) - Length 0.2 0.2 -Current Size (cm) - Width 1.0 1 -Current Size (cm) - Depth 0.2 0.2 -Total Square Cm 0.20 0.2 -Date of Last Picture (Recall this 08/08/22 field) -Photo Taken Yes -Epithelialization Medium 34-66% None Present -Tunneling No No -Undermining/Tunneling No No -Circular Undermining No No -Exudate Amt Small Small -Exudate Type Serosanguineous Serosanguineous -Granulation Amt Large (67-100%) Large (67-100%) -Granulation Quality [place] -Slough/Fibrin Yes -Necrosis Amt Small (1-33%) Small (1-33%) -Necrotic Tissue Type Adherent Slough Adherent Slough -Texture (Yudy-wound Skin Appearance) Assessed, Scarring -Moisture (Yudy-wound Skin Appearance) No Abnormality Assessed -Color (Yudy-wound Skin Appearance) Assessed -Temperature (Yudy-wound Skin No Abnormality No Abnormality Appearance) (Pt Warm) (Pt Warm) -Tenderness on Palpation (Yudy-wound No Skin Appearance) -Ulcer Cleansing Rinsed/ Rinsed/ Irrigated with Irrigated with Saline Saline -Foul Odor after Cleansing No No -Anesthetic Used 5% Lidocaine 5% Lidocaine Gel Gel WC - Nurse 2 - General Ulcer CM Notes Start: 07/22/22 09:08 Freq: Status: Active Protocol: Activity Type Activity Date Activity User E-sign Co-sign Detail Recorded Client Recorded Date Recorded By Document 07/22/22 09:32 [id number] 07/22/22 09:36 Document 08/08/22 13:32 [id number] 08/08/22 13:37 07/22/22 08/08/22 09:32 13:32 Wound Center Nurse 2 #3 L Stump/Post op -Time 09:33 13:34 -Correct Patient Yes Yes -Correct Side, Site, Position Yes Yes -Correct Procedure Yes Yes -Procedure Performed Yes Yes -Type of Procedure Debridement Debridement -Clinical Debridement Subcutaneous Subcutaneous -Tissue Removed Subcutaneous Subcutaneous -Post Debridement (cm) - Length 0.4 -Post Debridement (cm) - Width 1.3 -Post Debridement (cm) - Depth 0.3 -Total Square (Post) (cm) 0.52 -Area of Debridement (cm) - Length 0.4 -Area of Debridement (cm) - Width 1.3 -Total Square (Area) (cm) 0.52 -Tunneling No No -Undermining/Tunneling No No -Circular Undermining No No -Wound/Ulcer Outcome Not Healed Not Healed -Ulcer Cleansing Rinsed/ Rinsed/ Irrigated with Irrigated with Saline Saline -Foul Odor after Cleansing No No -Bioengineered Tissue No No -Bleeding Controlled with Pressure Pressure -Treatment Response Procedure Procedure Tolerated Well Tolerated Well -Offloading No No -Assistive Device(s) Wheelchair Wheelchair -Debridement - Subq, 1st 20sq cm Yes Yes Pain Scale: 0-10 Numeric Is Patient Pain Free? Yes Yes - Nurse 3 - General Ulcer D/C NN Start: 07/22/22 09:08 Freq: Status: Active Protocol: Activity Type Activity Date Activity User E-sign Co-sign Detail Recorded Client Recorded Date Recorded By Document 07/22/22 09:51 PL [id number] 07/22/22 09:51 PL Document 08/08/22 13:54 DL [id number] 08/08/22 13:55 DL 07/22/22 08/08/22 09:51 13:54 Wound Care Center Nurse 3 #3 L Stump/Post op -Ulcer Cleansing Rinsed/ Rinsed/ Irrigated with Irrigated with Saline Saline -Foul Odor after Cleansing No No -Primary Dressing Applied Promogran NonAdherent Garima Matter Contact Layer, Promogran Garima Matter -Primary Dressing Covered/Secured with Dry Gauze, Dry Gauze, Secured with Secured with Tape Tape -Promogran Garima Matter 1 1 Treatment Response Procedure Tolerated Well Pain Scale: 0-10 Numeric Is Patient Pain Free? Yes Yes WC - Visit Discharge Discharge Condition Stable Stable Ambulatory Status Wheelchair Wheelchair Transportation Private Auto Assessment/Plan Assessment/Plan (1) Pain of amputation stump of left lower extremity: CODE(S): T87.89 - Other complications of amputation stump; M79.605 - Pain in left leg (2) Non-pressure ulcer of stump of below knee amputation of left lower extremity with fat layer exposed: CODE(S): T87.89 - Other complications of amputation stump; L97.922 - Non-pressure chronic ulcer of unspecified part of left lower leg with fat layer exposed (3) Personal history of Methicillin resistant Staphylococcus aureus infection: CODE(S): Z86.14 - Personal history of Methicillin resistant Staphylococcus aureus infection (4) Diabetes: CODE(S): E11.9 - Type 2 diabetes mellitus without complications (5) History of below-knee amputation of left lower extremity: CODE(S): Z89.512 - Acquired absence of left leg below knee (6) Smoker: CODE(S): F17.200 - Nicotine dependence, unspecified, uncomplicated PLAN: Plan Continue wound care with Garima moistened. Recommended philip wrap on non-silicone stump gunner's mate m. He stopped wearing his silicone stump gunner's mate m because it may have been causing maceration to the yudy wound. Wound culture from 06/24/22 showed Staphylococcus aureus. He was treated with Augmentin. He states he is not wearing his prosthesis secondary to pain. Discussed with him that an operative debridement may be necessary to see what is preventing the healing of this ulcer. This would include a partial ostectomy to evaluate for osteomyelitis. Hopefully there is enough soft tissue with the posterior flap being pulled forward to cover the bone. A soft tissue pad would help with the pain when the prosthesis is being used. Right now even if the ulcer would heal, it would be scar tissue on bone which is not tenable long-term with a prosthesis. We can shorten the bone a little bit in order to make the advancement of the flap easier. However, if the bone is shortened too much, then a revision to an AKA would be necessary. A prosthesis can be used with an AKA. It takes longer to get used it because of the lack of his [place] knee with an AKA. Will discuss operative debridement at subsequent visits. It would entail surgery on an outpatient basis under general anesthesia. Patient has diabetes mellitus. Will check a HgbA1c. For elective surgeries, the HgbA1c needs to be less than 8. An operative debridement can be done regardless of what the HgbA1c is. However, revising the stump with advancement of the posterior flap and with secondary wound closure is elective and the HgbA1c would need to be less than 8. Also before any revision of the stump, would like to maximize his nutrition. His last recorded Prealbumin on 11/07/20 was 9.9. Encouraged nutritional supplementation with protein to help the healing process. Can check it at the time of the operative debridement. Encouraged patient to stop smoking as it may have deleterious effects on wound healing. Followup 2 weeks.
== END 2022-08-21 23:59 | disposition home or self-care (01) ==
LOC: WC 13:15
PROVIDERS: PCP Family Medicine; Visit Provider Surgery
DX: T87.89 Other complications of amputation stump (principal); E11.622 Type 2 diabetes mellitus with other skin ulcer; Z89.512 Acquired absence of left leg below knee; L98.492 Non-pressure chronic ulcer of skin of other sites with fat layer exposed; R60.0 Localized edema; Y83.5 Amputation of limb(s) as the cause of abnormal reaction of the patient, or of later complication, without mention of misadventure at the time of the procedure; F17.200 Nicotine dependence, unspecified, uncomplicated; M79.605 Pain in left leg
CPT/HCPCS: 11042

== ENCOUNTER 2022-09-12 13:00 | Outpatient (RCR) | payer MEDICARE, MEDICAID, SELFPAY ==
[2022-08-22 00:27] VITALS: BP 163/85; PULSE 67; RESP 16; TEMP 35.8
[2022-08-22 13:09] VITALS: BP 138/78; PULSE 66; RESP 18; TEMP 36.3
--- NOTE | 2022-08-22 13:50 | BONBX_PTH ---
PATIENT: RK MCCLURE LOC: U#:[id number] AGE/SX: 66/M ROOM: RE09/12/[address]: Dr. Dionte Plata MD : 1955 BED: DIS: 09/20/2022 SPEC #: [id number] RECD: 08/23/22 10:00 STATUS: JENNY RESmitha #: [id number] JUAN ALBERTO: 08/22/22 13:[address]: Dionte Plata DEPT: SURGICAL PATHOLOGY RECD BY: Cherelle Fuentes ENTERED: 08/23/22 11:21 SP TYPE: Bone OTHR DR: Dr. Clement Buckner MD Tissues: Bone of lower extremity, NOS Procedures: Decalcification bone/plaque Surgery Specimen Level V HEADER OPERATION: Bone excision from left below knee amputation ulcer PRE-OP DIAGNOSIS: Ulcer left below knee amputation, nonhealing; history of osteomyelitis TISSUE SUBMITTED: Bone biopsy left below knee amputation ulcer MICROSCOPIC DIAGNOSIS Left below knee amputation ulcer, bone biopsy: A piece of bone with reactive changes and focal mild chronic inflammation, negative for acute osteomyelitis. UYEN:ava 08/27/2022 MICROSCOPIC DESCRIPTION Slides are reviewed. GROSS DESCRIPTION Received in fixative is one container labeled with the patient's name and designated bone lower extremity below knee amputation. The specimen consists of a piece of bone measuring 0.7 x 0.5 x 0.2 cm. The entire specimen is submitted in one cassette after decalcification. / UYEN:ava 08/23/2022 TC:3 CPT: 82549, 65810
--- NOTE | 2022-08-22 17:14 | PN.PCM_ITS ---
History of Present Illness Date of Service: 08/22/22 Chief Complaint: Ulcer on left BKA after I&D of a diabetic abscess/hematoma on 11/06/20 History of Wound: Surgery on 11/06/20 - Surgical preparation left below knee amputation stump with incision and drainage and excisional debridement with partial ostectomy tibia for osteomyelitis and evacuation hematoma for draining diabetic ulcer abscess. (He had his Left BKA on 04/17/20). Operative tissue and bone cultures were negative. Wound cultures from 11/02/20 positive for MSSA, Enterobacter cloacae complex, and Corynebacterium amycolatum. Prealbumin 9.9 on 11/07/20. He was evaluated by Dr. Boston on 12/06/21 for an operative debridement and pos sible osteomyelitis. Surgery with Dr. Boston on 12/25/21 for Debridement left lower extremity amputation stump skin, subcutaneous tissue, fascia, bone. Bone culture 12/25/21 - Staphylococcus aureus. Pathology of bone showed dense fibroconnective tissue with reactive changes and foreign body giant cell reaction. Pieces of bone with reactive changes. Wound culture from 09/17/21 showed no growth. Wound culture from 07/09/21 positive for Staphylococcus aureus and Streptococcus agalactiae (B). He was started on Augmentin and a Probiotic. Xray obtained on 10/01/21 of his left BKA stump because of his non healing ulcer. The xray showed bony abnormalities along the lateral aspect of the amputation site of the proximal tibia. Consider further evaluation to exclude osteomyelitis. He obtained this xray at [facility]. MRI obtained 10/31/21, at [facility], of his left BKA which showed Bone edema with contrast enhancement of the tibia consistent with osteomyelitis. Small fluid collection at the distal aspect of the amputated tibia suggestive of small abscess. Wound culture from 06/24/22 was positive for Staphylococcus aureus. He was treated with Augmentin. He has has completed ten applications of Theraskin which did help decrease his ulcer size. 02/25/22-Unroofed the undermining from 9-3 o'clock to make wound care easier. Wound care - He has had 10 applications of Theraskin. Since he has had an operative debridement, he has had 10 applications of Epifix which he completed 04/08/22. Wound care will be moistened Garima topped with adpatic and covered with gauze daily after washing with soap and water. He is wearing a stump senior controls engineer for compression. Today he denies any fever. He states his appetite is good. Progress of Wound: It seems to have plateaued. There is scar tissue that is curling downward. Objective Data Objective Data Vital Signs: Vital Signs Temp Pulse Resp BP 97.4 F L 66 18 138/78 H 08/22/22 13:09 08/22/22 13:09 08/22/22 13:09 08/22/22 13:09 Lab / Micro Data Attestation: I reviewed the patient's lab results. Debridement Note Debridement Note Wound debrided: #2 Left AKA stump Laterality: Left Wound Grade/Stage: IV. Type of Debridement: Excisional debridement Anesthesia Used: 4% Lidocaine Solution Depth: Down to and including healthy tissue, in the subcutaneous layer, to muscle and to bone (Bone was exposed and debrided and sent to Pathology and Microbiology.) Percentage of wound debrided: 100 Instrument Used: 5mm curette Tissue Removed: subcutaneous tissue and bone. Severity: Necrosis of Bone (Bone is NOT necrotic. In this debridement, bone was involved) Amount of bleeding with debridement: Mild Bleeding Controlled with: Pressure and Compression and gauze Patient tolerated procedure: Patient tolerated procedure well Post-Debridement Measurements and Additional Note: Post-Debridement Measurements/Treatment - Nurse 1 - General Ulcer Assessment Start: 08/22/22 13:09 Freq: Status: Active Protocol: WC.LOWEXT Activity Type Activity Date Activity User E-sign Co-sign Detail Recorded Client Recorded Date Recorded By Document 08/22/22 13:09 [id number] 08/22/22 13:11 DL 08/22/22 13:09 - Today's Visit Information Type of service Follow-up Visit (Physician/ASSEMBLER SURGICAL GARMENT ) Arrival Mode Wheelchair Transfer Assistance None Patient Identification Verified (Name & Yes ) Patient Requires Transmission-Based No Precautions Finger Stick Blood Sugar(mg/dl) (if 122 indicated): Blood Sugar Stated by Patient Vital Signs Temperature (97.8 F-99.1 F) 97.4 F L Temperature Source Temporal Pulse Rate (60-100) 66 Pulse Location Monitor Respiratory Rate (12-18) 18 Respiratory rate source Observation Blood Pressure (90/60-120/80) 138/78 H Blood Pressure Mean (mm Hg) 98 Source Monitor History Since Last Visit- (Skip if this is Patient's initial visit) Have you changed medications since your No last visit? Any new allergies or adverse reactions No Had a fall/change in ADL's that may No increase risk of falls Signs or symptoms of abuse and/or No neglect since last visit Have you been in the hospital since your No last visit? Has dressing in place as prescribed Yes Has compression in place as prescribed Yes Has offloadiing in place as prescribed Yes Experienced any changes in pain level or No management Pain Scale: 0-10 Numeric Is Patient Pain Free? Yes WC - Nurse 1 - General Ulcer Measurement Start: 08/22/22 13:09 Freq: Status: Active Protocol: Activity Type Activity Date Activity User E-sign Co-sign Detail Recorded Client Recorded Date Recorded By Document 08/22/22 13:11 DL [id number] 08/22/22 13:14 DL 08/22/22 13:11 Wound Center Nurse 1 #3 L Stump/Post op -Current Size (cm) - Length 0.5 -Current Size (cm) - Width 0.2 -Current Size (cm) - Depth 0.3 -Total Square Cm 0.10 -Exudate Amt Small -Exudate Type Serosanguineous -Wound Margin Thickened & Rolled Under -Granulation Amt Small (1-33%) -Granulation Quality [place] -Necrosis Amt Small (1-33%) -Necrotic Tissue Type Adherent Slough -Structure Exposed N/A -Texture (Yudy-wound Skin Appearance) Callus,Scarring -Color (Yudy-wound Skin Appearance) No Abnormality -Temperature (Yudy-wound Skin No Abnormality Appearance) (Pt Warm) -Tenderness on Palpation (Yudy-wound No Skin Appearance) -Ulcer Cleansing Rinsed/ Irrigated with Saline -Foul Odor after Cleansing No -Anesthetic Used 5% Lidocaine Gel FREDI - Nurse 2 - General Ulcer CM Notes Start: 08/22/22 13:09 Freq: Status: Active Protocol: Activity Type Activity Date Activity User E-sign Co-sign Detail Recorded Client Recorded Date Recorded By Document 08/22/22 13:41 MARSHALL [id number] 08/22/22 13:54 JF Edit Result 08/22/22 13:41 JF (1) [id number] 08/22/22 13:56 JF (1) #3 L Stump/Post op - Post Debridement (cm) - Length 0.3 => 1.3 - Post Debridement (cm) - Width 0.8 => 1.1 - Post Debridement (cm) - Depth 0.2 => 0.5 - Total Square (Post) (cm) 0.24 => 1.43 - Area of Debridement (cm) - Length 0.3 => 1.3 - Area of Debridement (cm) - Width 0.8 => 1.1 - Total Square (Area) (cm) 0.24 => 1.43 08/22/22 13:41 Wound Center Nurse 2 -Time 13:41 -Correct Patient Yes -Correct Side, Site, Position Yes -Correct Procedure Yes -Procedure Performed Yes -Type of Procedure Debridement -Clinical Debridement Bone -Tissue Removed Tendon -Post Debridement (cm) - Length 1.3 -Post Debridement (cm) - Width 1.1 -Post Debridement (cm) - Depth 0.5 -Total Square (Post) (cm) 1.43 -Area of Debridement (cm) - Length 1.3 -Area of Debridement (cm) - Width 1.1 -Total Square (Area) (cm) 1.43 -Tunneling No -Undermining/Tunneling No -Circular Undermining No -Wound/Ulcer Outcome Not Healed -Ulcer Cleansing Rinsed/ Irrigated with Saline -Foul Odor after Cleansing No -Bioengineered Tissue No -Bleeding Controlled with Pressure -Treatment Response Procedure Tolerated Well -Offloading No -Assistive Device(s) Wheelchair -Debridement - Bone, 1st 20sq cm Yes Pain Scale: 0-10 Numeric Is Patient Pain Free? Yes - Nurse 3 - General Ulcer D/C NN Start: 08/22/22 13:09 Freq: Status: Active Protocol: Activity Type Activity Date Activity User E-sign Co-sign Detail Recorded Client Recorded Date Recorded By Document 08/22/22 14:11 MW [id number] 08/22/22 14:13 MW 08/22/22 14:11 Wound Care Center Nurse 3 #3 L Stump/Post op -Ulcer Cleansing Rinsed/ Irrigated with Saline -Foul Odor after Cleansing No -Primary Dressing Applied Promogran Garima Matter -Primary Dressing Covered/Secured with Dry Gauze & Roll Gauze, Secured with Tape -Other Covering abd -Promogran Garima Matter 1 Treatment Response Procedure Tolerated Well Pain Scale: 0-10 Numeric Is Patient Pain Free? Yes WC - Visit Discharge Discharge Condition Stable Ambulatory Status Wheelchair Transportation Private Auto Assessment/Plan Assessment/Plan (1) Pressure ulcer of BKA stump, stage 4: CODE(S): T87.89 - Other complications of amputation stump; L89.894 - Pressure ulcer of other site, stage 4 (2) Diabetes mellitus with ulcer of lower extremity: CODE(S): E11.622 - Type 2 diabetes mellitus with other skin ulcer; L97.909 - Non-pressure chronic ulcer of unspecified part of unspecified lower leg with unspecified severity (3) Below-knee amputation of left lower extremity: CODE(S): S88.112A - Complete traumatic amputation at level between knee and ankle, left lower leg, initial encounter (4) Diabetes: CODE(S): E11.9 - Type 2 diabetes mellitus without complications (5) Smoker: CODE(S): F17.200 - Nicotine dependence, unspecified, uncomplicated PLAN: Plan Patient was evaluated at the wound center today. He has completed 10 applications of Epifix. Wound care - Moistened Garima covered with adaptic and topped with gauze daily after washing with soap and water. Compression - AMIE wrap or non-silicone stump senior controls engineer. He has stopped wearing his silicone stump senior controls engineer because is may have been causing maceration to the yudy wound. I discussed my concerns with the femur not being covered by the flap and that it could potentially become a pressure area if the patient starts wearing his prosthesis with Dr. Plata. He states that he would probably have to shorten the bone to cover it with a flap. If that occurs then it may have to become an AKA or if it stays a BKA, the patient may not be able to wear his prosthesis. The patient would like to avoid surgery at this time. Bone culture 12/25/21 - Staphylococcus aureus. Pathology of bone showed dense fibroconnective tissue with reactive changes and foreign body giant cell reaction. He has completed the IV antibiotic, Cefazolin, for 6 weeks. Obtained a wound culture on 09/17/21 which was negative for bacterial growth. Wound culture from 07/09/21 positive for Staphylococcus aureus and Streptococcus agalactiae (B). He completed his Augmentin. A wound culture from 06/24/22 was positive for Staphylococcus aureus and he was placed on Augmentin. Encouraged high protein diet to help with wound healing and low carb diet to help keep better control of blood sugars. He states he is not wearing his prosthesis. Encouraged patient to stop smoking as it may have deleterious effects on wound healing. Follow up in 2 weeks.
[2022-09-05 13:17] VITALS: BP 135/74; PULSE 77; RESP 18; TEMP 36.4
--- NOTE | 2022-09-05 16:37 | PCM.WC.PN ---
History of Present Illness Date of Service: 09/05/22 Chief Complaint: Ulcer on left BKA after I&D of a diabetic abscess/hematoma on 11/06/20 History of Wound: Surgery on 11/06/20 - Surgical preparation left below knee amputation stump with incision and drainage and excisional debridement with partial ostectomy tibia for osteomyelitis and evacuation hematoma for draining diabetic ulcer abscess. (He had his Left BKA on 04/17/20). Operative tissue and bone cultures were negative. Wound cultures from 11/02/20 positive for MSSA, Enterobacter cloacae complex, and Corynebacterium amycolatum. At his last visit on 08/22/22 bony debridement was done to the stump because there was some bone exposed. Pathology was negative for acute osteomyelitis. Prealbumin 9.9 on 11/07/20. He was evaluated by Dr. Boston on 12/06/21 for an operative debridement and possible osteomyelitis. Surgery with Dr. Boston on 12/25/21 for Debridement left lower extremity amputation stump skin, subcutaneous tissue, fascia, bone. Bone culture 12/25/21 - Staphylococcus aureus. Pathology of bone showed dense fibroconnective tissue with reactive changes and foreign body giant cell reaction. Pieces of bone with reactive changes. Wound culture from 09/17/21 showed no growth. Wound culture from 07/09/21 positive for Staphylococcus aureus and Streptococcus agalactiae (B). He was started on Augmentin and a Probiotic. Xray obtained on 10/01/21 of his left BKA stump because of his non healing ulcer. The xray showed bony abnormalities along the lateral aspect of the amputation site of the proximal tibia. Consider further evaluation to exclude osteomyelitis. He obtained this xray at [facility]. MRI obtained 10/31/21, at [facility], of his left BKA which showed Bone edema with contrast enhancement of the tibia consistent with osteomyelitis. Small fluid collection at the distal aspect of the amputated tibia suggestive of small abscess. Wound culture from 06/24/22 was positive for Staphylococcus aureus. He was treated with Augmentin. He has has completed ten applications of Theraskin which did help decrease his ulcer size. 02/25/22-Unroofed the undermining from 9-3 o'clock to make wound care easier. Wound care - He has had 10 applications of Theraskin. Since he has had an operative debridement, he has had 10 applications of Epifix which he completed 04/08/22. Wound care will be moistened Garima topped with adaptic and covered with gauze daily after washing with soap and water. He is wearing a stump assistant credit manager for compression. Today he denies any fever. He states his appetite is good. Progress of Wound: Improved after debridement of the bone. Objective Data Objective Data Vital Signs: Vital Signs Temp Pulse Resp BP 97.5 F L 77 18 135/74 H 09/05/22 13:17 09/05/22 13:17 09/05/22 13:17 09/05/22 13:17 Lab / Micro Data Attestation: I reviewed the patient's lab results. Charges/Coding Procedures Integumentary 111xxx-113xx: 36030 Ria musc/fascia 20 sq cm/< (ICD-10 - L97.926, M79.605, T87.89, Z86.14, E11.9, Z89.512, F17.200) Debridement Note Debridement Note Wound debrided: #2 Left BKA stump. Laterality: Left Wound Grade/Stage: 4. Type of Debridement: Excisional debridement Anesthesia Used: 4% Lidocaine Solution Depth: Down to and including healthy tissue, in the subcutaneous layer, to muscle and to bone (bone is palpable but not exposed.) Percentage of wound debrided: 100 Instrument Used: 3mm curette Tissue Removed: subcutaneous tissue and muscle. Bone was palpable and not debrided. Severity: Fat Layer Exposed (muscle is exposed. Bone is palpable but not exposed and not debrided.) Amount of bleeding with debridement: Mild Bleeding Controlled with: Pressure and Compression and gauze Patient tolerated procedure: Patient tolerated procedure well Post-Debridement Measurements and Additional Note: Post-Debridement Measurements/Treatment FREDI - Nurse 1 - General Ulcer Assessment Start: 08/22/22 13:09 Freq: Status: Active Protocol: ARLETH Activity Type Activity Date Activity User E-sign Co-sign Detail Recorded Client Recorded Date Recorded By Document 08/22/22 13:09 BRANDON [id number] 08/22/22 13:11 DL Document 09/05/22 13:17 MARSHALL [id number] 09/05/22 13:20 MARSHALL 08/22/22 09/05/22 13:09 13:17 - Today's Visit Information Type of service Follow-up Visit Follow-up Visit (Physician/HEALTHCARE BUSINESS ANALYST (Physician/HEALTHCARE BUSINESS ANALYST ) ) Arrival Mode Wheelchair Wheelchair Transfer Assistance None Patient Identification Verified (Name & Yes Yes ) Patient Requires Transmission-Based No No Precautions Finger Stick Blood Sugar(mg/dl) (if 122 indicated): Blood Sugar Stated by Patient Vital Signs Temperature (97.8 F-99.1 F) 97.4 F L 97.5 F L Temperature Source Temporal Temporal Pulse Rate (60-100) 66 77 Pulse Location Monitor Monitor Respiratory Rate (12-18) 18 18 Respiratory rate source Observation Observation Blood Pressure (90/60-120/80) 138/78 H 135/74 H Blood Pressure Mean (mm Hg) 98 94 Source Monitor Monitor Position Semi-Fowlers Blood Pressure Location Left Arm History Since Last Visit- (Skip if this is Patient's initial visit) Have you changed medications since your No No last visit? Any new allergies or adverse reactions No No Had a fall/change in ADL's that may No No increase risk of falls Signs or symptoms of abuse and/or No No neglect since last visit Have you been in the hospital since your No No last visit? Has dressing in place as prescribed Yes Yes Has compression in place as prescribed Yes N/A Has offloadiing in place as prescribed Yes Yes Experienced any changes in pain level or No No management Left Footwear No Footwear Right Footwear Regular Shoe Pain Scale: 0-10 Numeric Is Patient Pain Free? Yes Yes - Nurse 1 - General Ulcer Measurement Start: 08/22/22 13:09 Freq: Status: Active Protocol: Activity Type Activity Date Activity User E-sign Co-sign Detail Recorded Client Recorded Date Recorded By Document 08/22/22 13:11 DL [id number] 08/22/22 13:14 DL Document 09/05/22 13:17 JF [id number] 09/05/22 13:20 JF 08/22/22 09/05/22 13:11 13:17 Wound Center Nurse 1 #3 L Stump/Post op -Combined with other wound No -Current Size (cm) - Length 0.5 2.0 -Current Size (cm) - Width 0.2 2.1 -Current Size (cm) - Depth 0.3 0.2 -Total Square Cm 0.10 4.20 -Photo Taken No -Epithelialization Small 1-33% -Tunneling No -Undermining/Tunneling No -Circular Undermining No -Exudate Amt Small -Exudate Type Serosanguineous Serosanguineous -Wound Margin Thickened & Flat & Intact Rolled Under -Granulation Amt Small (1-33%) Medium (34-66%) -Granulation Quality [place] -Slough/Fibrin Yes -Necrosis Amt Small (1-33%) Small (1-33%) -Necrotic Tissue Type Adherent Slough Adherent Slough -Structure Exposed N/A None/Limited to Skin Breakdown -Texture (Yudy-wound Skin Appearance) Callus,Scarring Assessed -Moisture (Yudy-wound Skin Appearance) Assessed,Dry/ Scaly -Color (Yudy-wound Skin Appearance) No Abnormality Assessed -Temperature (Yudy-wound Skin No Abnormality No Abnormality Appearance) (Pt Warm) (Pt Warm) -Tenderness on Palpation (Yudy-wound No No Skin Appearance) -Ulcer Cleansing Rinsed/ Rinsed/ Irrigated with Irrigated with Saline Saline -Foul Odor after Cleansing No No -Anesthetic Used 5% Lidocaine 5% Lidocaine Gel Gel Lower Limb Edema Present NA WC - Nurse 2 - General Ulcer CM Notes Start: 08/22/22 13:09 Freq: Status: Active Protocol: Activity Type Activity Date Activity User E-sign Co-sign Detail Recorded Client Recorded Date Recorded By Document 08/22/22 13:41 [id number] 08/22/22 13:54 Edit Result 08/22/22 13:41 (1) [id number] 08/22/22 13:56 Document 09/05/22 13:48 [id number] 09/05/22 13:51 (1) #3 L Stump/Post op - Post Debridement (cm) - Length 0.3 => 1.3 - Post Debridement (cm) - Width 0.8 => 1.1 - Post Debridement (cm) - Depth 0.2 => 0.5 - Total Square (Post) (cm) 0.24 => 1.43 - Area of Debridement (cm) - Length 0.3 => 1.3 - Area of Debridement (cm) - Width 0.8 => 1.1 - Total Square (Area) (cm) 0.24 => 1.43 08/22/22 09/05/22 13:41 13:48 Wound Center Nurse 2 #3 L Stump/Post op -Time 13:41 13:50 -Correct Patient Yes Yes -Correct Side, Site, Position Yes Yes -Correct Procedure Yes Yes -Procedure Performed Yes Yes -Type of Procedure Debridement Debridement -Clinical Debridement Bone Muscle / Fascia -Tissue Removed Tendon Muscle -Post Debridement (cm) - Length 1.3 1.8 -Post Debridement (cm) - Width 1.1 2.3 -Post Debridement (cm) - Depth 0.5 0.2 -Total Square (Post) (cm) 1.43 4.14 -Area of Debridement (cm) - Length 1.3 1.8 -Area of Debridement (cm) - Width 1.1 2.3 -Total Square (Area) (cm) 1.43 4.14 -Tunneling No No -Undermining/Tunneling No No -Circular Undermining No No -Wound/Ulcer Outcome Not Healed Not Healed -Ulcer Cleansing Rinsed/ Rinsed/ Irrigated with Irrigated with Saline Saline -Foul Odor after Cleansing No -Bioengineered Tissue No No -Bleeding Controlled with Pressure Pressure -Treatment Response Procedure Procedure Not Tolerated Well Tolerated Well -Offloading No No -Assistive Device(s) Wheelchair Wheelchair -Debridement - Muscle / Fascia, 1st Yes 20sq cm -Debridement - Bone, 1st 20sq cm Yes Pain Scale: 0-10 Numeric Is Patient Pain Free? Yes Yes WC - Nurse 3 - General Ulcer D/C NN Start: 08/22/22 13:09 Freq: Status: Active Protocol: Activity Type Activity Date Activity User E-sign Co-sign Detail Recorded Client Recorded Date Recorded By Document 08/22/22 14:11 MW [id number] 08/22/22 14:13 MW Document 09/05/22 14:34 AK [id number] 09/05/22 14:35 AK 08/22/22 09/05/22 14:11 14:34 Wound Care Center Nurse 3 #3 L Stump/Post op -Ulcer Cleansing Rinsed/ Rinsed/ Irrigated with Irrigated with Saline Saline -Foul Odor after Cleansing No No -Negative Pressure Wound Therapy N/A -Primary Dressing Applied [facility] AG 4x4 Garima Matter -Primary Dressing Covered/Secured with Dry Gauze & Dry Gauze, Roll Gauze, Secured with Secured with Tape Tape -Other Covering abd -Aquacel AG 4x4 1 -Promogran Garima Matter 1 Treatment Response Procedure Tolerated Well Pain Scale: 0-10 Numeric Is Patient Pain Free? Yes Yes WC - Visit Discharge Discharge Condition Stable Stable Ambulatory Status Wheelchair Ambulatory Transportation Private Auto Private Auto Medication Reconcilliation completed & Yes provided to patient/care provider Clinical Summary of Care Provided Yes 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 without evidence of necrosis (2) Pain of amputation stump of left lower extremity: CODE(S): T87.89 - Other complications of amputation stump; M79.605 - Pain in left leg (3) Personal history of Methicillin resistant Staphylococcus aureus infection: CODE(S): Z86.14 - Personal history of Methicillin resistant Staphylococcus aureus infection (4) Diabetes: CODE(S): E11.9 - Type 2 diabetes mellitus without complications (5) History of below-knee amputation of left lower extremity: CODE(S): Z89.512 - Acquired absence of left leg below knee (6) Smoker: CODE(S): F17.200 - Nicotine dependence, unspecified, uncomplicated PLAN: Plan Continue Garima wound care to left BKA stump ulcer. He has completed 10 applications of Epifix. Compression - AMIE wrap or non-silicone stump assistant credit manager. He has stopped wearing his silicone stump assistant credit manager because it may have been causing maceration to the yudy wound. He states he is not wearing his prosthesis. The ulcer looks better after I debrided the callus at the edges and debrided the bone. Pathology from 08/22/22 was negative for acute osteomyelitis. A wound culture from 06/24/22 was positive for Staphylococcus aureus and he was treated with Augmentin. Discussed with the patient that an operative debridement is necessary since scar tissue over the bone inferiorly is not sustainable in a prosthesis. Coverage over the bone with soft tissue would provide a cushion for the prosthesis. The surrounding tissue and posterior flap, after debridement of scar tissue, may be able to cover the bone. This is the ideal situation. May have to shorten the bone a little bit in order to make this happen. I will be conservative with the bone excision because if the stump ends up being too short, it would be problematic with fitting of the prosthesis. In that scenario, revision to an AKA would be necessary and then proceed with therapy with an AKA prosthesis. Patient voices understanding. Encouraged patient to stop smoking as it may have deleterious effects on wound healing. Follow up in one week.
[2022-09-12 13:11] VITALS: BP 141/72; PULSE 54; RESP 16; TEMP 36.1
--- NOTE | 2022-09-12 13:46 | PCM.WC.PN ---
History of Present Illness Date of Service: 09/12/22 Chief Complaint: Ulcer on left BKA after I&D of a diabetic abscess/hematoma on 11/06/20 History of Wound: Surgery on 11/06/20 - Surgical preparation left below knee amputation stump with incision and drainage and excisional debridement with partial ostectomy tibia for osteomyelitis and evacuation hematoma for draining diabetic ulcer abscess. (He had his Left BKA on 04/17/20). Operative tissue and bone cultures were negative. Wound cultures from 11/02/20 positive for MSSA, Enterobacter cloacae complex, and Corynebacterium amycolatum. At his last visit on 08/22/22 bony debridement was done to the stump because there was some bone exposed. Pathology was negative for acute osteomyelitis. Prealbumin 9.9 on 11/07/20. He was evaluated by Dr. Boston on 12/06/21 for an operative debridement and possible osteomyelitis. Surgery with Dr. Boston on 12/25/21 for Debridement left lower extremity amputation stump skin, subcutaneous tissue, fascia, bone. Bone culture 12/25/21 - Staphylococcus aureus. Pathology of bone showed dense fibroconnective tissue with reactive changes and foreign body giant cell reaction. Pieces of bone with reactive changes. Wound culture from 09/17/21 showed no growth. Wound culture from 07/09/21 positive for Staphylococcus aureus and Streptococcus agalactiae (B). He was started on Augmentin and a Probiotic. Xray obtained on 10/01/21 of his left BKA stump because of his non healing ulcer. The xray showed bony abnormalities along the lateral aspect of the amputation site of the proximal tibia. Consider further evaluation to exclude osteomyelitis. He obtained this xray at [facility]. MRI obtained 10/31/21, at [facility], of his left BKA which showed Bone edema with contrast enhancement of the tibia consistent with osteomyelitis. Small fluid collection at the distal aspect of the amputated tibia suggestive of small abscess. Wound culture from 06/24/22 was positive for Staphylococcus aureus. He was treated with Augmentin. He has has completed ten applications of Theraskin which did help decrease his ulcer size. 02/25/22-Unroofed the undermining from 9-3 o'clock to make wound care easier. Wound care - He has had 10 applications of Theraskin. Since he has had an operative debridement, he has had 10 applications of Epifix which he completed 04/08/22. Wound care will be moistened Garima topped with adaptic and covered with gauze daily after washing with soap and water. He is wearing a stump protection manager for compression. Today he denies any fever. He states his appetite is good. Progress of Wound: Improved after debridement of the bone. Objective Data Objective Data Vital Signs: Vital Signs Temp Pulse Resp BP O2 Del Method 97 F L 54 L 16 141/72 H Room Air 09/12/22 13:11 09/12/22 13:11 09/12/22 13:11 09/12/22 13:11 09/12/22 13:11 Oxygen Delivery Method Room Air Prealbumin was 9.9 on 11/07/20. Before we proceed with revision of the stump with advancement flap and secondary wound closure, his Prealbumin needs to be maximized. Lab / Micro Data Attestation: I reviewed the patient's lab results. Charges/Coding Procedures Integumentary 111xxx-113xx: 71000 Ria musc/fascia 20 sq cm/< (ICD-10 - L97.926, T87.89, Z86.14, E11.9, Z89.512, F17.200) Debridement Note Debridement Note Wound debrided: #3 Left BKA stump. Laterality: Left Wound Grade/Stage: 4. Type of Debridement: Excisional debridement Anesthesia Used: 4% Lidocaine Solution Depth: Down to and including healthy tissue, in the subcutaneous layer, to muscle and to bone (bone is palpable but not exposed and not debrided.) Percentage of wound debrided: 100 Instrument Used: 3mm curette Tissue Removed: subcutaneous tissue and muscle. bone is palpable but not debrided. Severity: Fat Layer Exposed (muscle is exposed. bone is palpable but not exposed and not debrided.) Amount of bleeding with debridement: Mild Bleeding Controlled with: Pressure and Compression and gauze Patient tolerated procedure: Patient tolerated procedure well Post-Debridement Measurements and Additional Note: Post-Debridement Measurements/Treatment FREDI - Nurse 1 - General Ulcer Assessment Start: 08/22/22 13:09 Freq: Status: Active Protocol: ARLETH Activity Type Activity Date Activity User E-sign Co-sign Detail Recorded Client Recorded Date Recorded By Document 08/22/22 13:09 DL [id number] 08/22/22 13:11 DL Document 09/05/22 13:17 [id number] 09/05/22 13:20 JF Document 09/12/22 13:11 BM [id number] 09/12/22 13:14 BMF 08/22/22 09/05/22 09/12/22 13:09 13:17 13:11 - Today's Visit Information Type of service Follow-up Visit Follow-up Visit Follow-up Visit (Physician/SNAP ATTACHER (Physician/SNAP ATTACHER (Physician/SNAP ATTACHER ) ) ) Arrival Mode Wheelchair Wheelchair Wheelchair Transfer Assistance None None Patient Identification Verified (Name & Yes Yes Yes ) Patient Requires Transmission-Based No No No Precautions Finger Stick Blood Sugar(mg/dl) (if 122 indicated): Blood Sugar Stated by Patient Vital Signs Temperature (97.8 F-99.1 F) 97.4 F L 97.5 F L 97 F L Temperature Source Temporal Temporal Temporal Pulse Rate (60-100) 66 77 54 L Pulse Location Monitor Monitor Monitor Respiratory Rate (12-18) 18 18 16 Respiratory rate source Observation Observation Observation Oxygen Delivery Method Room Air Blood Pressure (90/60-120/80) 138/78 H 135/74 H 141/72 H Blood Pressure Mean (mm Hg) 98 94 95 Source Monitor Monitor Monitor Position Semi-Fowlers Sitting Blood Pressure Location Left Arm Left Arm History Since Last Visit- (Skip if this is Patient's initial visit) Have you changed medications since your No No No last visit? Any new allergies or adverse reactions No No No Had a fall/change in ADL's that may No No No increase risk of falls Signs or symptoms of abuse and/or No No No neglect since last visit Have you been in the hospital since your No No No last visit? Has dressing in place as prescribed Yes Yes Yes Has compression in place as prescribed Yes N/A N/A Has offloadiing in place as prescribed Yes Yes N/A Experienced any changes in pain level or No No No management Left Footwear No Footwear Right Footwear Regular Shoe Regular Shoe Pain Scale: 0-10 Numeric Is Patient Pain Free? Yes Yes Yes - Nurse 1 - General Ulcer Measurement Start: 08/22/22 13:09 Freq: Status: Active Protocol: Activity Type Activity Date Activity User E-sign Co-sign Detail Recorded Client Recorded Date Recorded By Document 08/22/22 13:11 DL [id number] 08/22/22 13:14 DL Document 09/05/22 13:17 [id number] 09/05/22 13:20 JF Document 09/12/22 13:11 [facility] [id number] 09/12/22 13:14 [facility] 08/22/22 09/05/22 09/12/22 13:11 13:17 13:11 Wound Center Nurse 1 #3 L Stump/Post op -Combined with other wound No No -Current Size (cm) - Length 0.5 2.0 1.8 -Current Size (cm) - Width 0.2 2.1 2 -Current Size (cm) - Depth 0.3 0.2 0.3 -Total Square Cm 0.10 4.20 3.6 -Date of Last Picture (Recall this 09/12/22 field) -Photo Taken No Yes -Epithelialization Small 1-33% None Present -Tunneling No No -Undermining/Tunneling No No -Circular Undermining No No -Exudate Amt Small Medium -Exudate Type Serosanguineous Serosanguineous Serosanguineous -Wound Margin Thickened & Flat & Intact Distinct, Rolled Under Outline Attached -Granulation Amt Small (1-33%) Medium (34-66%) Small (1-33%) -Granulation Quality Sellers Sellers Sellers -Slough/Fibrin Yes Yes -Necrosis Amt Small (1-33%) Small (1-33%) Large (67-100%) -Necrotic Tissue Type Adherent Slough Adherent Slough Adherent Slough -Structure Exposed N/A None/Limited to Skin Breakdown -Texture (Yudy-wound Skin Appearance) Callus,Scarring Assessed Assessed, Scarring -Moisture (Yudy-wound Skin Appearance) Assessed,Dry/ Assessed Scaly -Color (Yudy-wound Skin Appearance) No Abnormality Assessed Assessed, Erythema -Temperature (Yudy-wound Skin No Abnormality No Abnormality No Abnormality Appearance) (Pt Warm) (Pt Warm) (Pt Warm) -Tenderness on Palpation (Yudy-wound No No No Skin Appearance) -Ulcer Cleansing Rinsed/ Rinsed/ Rinsed/ Irrigated with Irrigated with Irrigated with Saline Saline Saline -Foul Odor after Cleansing No No No -Anesthetic Used 5% Lidocaine 5% Lidocaine 5% Lidocaine Gel Gel Gel Lower Limb Edema Present NA WC - Nurse 2 - General Ulcer CM Notes Start: 08/22/22 13:09 Freq: Status: Active Protocol: Activity Type Activity Date Activity User E-sign Co-sign Detail Recorded Client Recorded Date Recorded By Document 08/22/22 13:41 JF [id number] 08/22/22 13:54 JF Edit Result 08/22/22 13:41 JF (1) [id number] 08/22/22 13:56 JF Document 09/05/22 13:48 JF [id number] 09/05/22 13:51 JF Document 09/12/22 13:45 MW [id number] 09/12/22 13:53 MW (1) #3 L Stump/Post op - Post Debridement (cm) - Length 0.3 => 1.3 - Post Debridement (cm) - Width 0.8 => 1.1 - Post Debridement (cm) - Depth 0.2 => 0.5 - Total Square (Post) (cm) 0.24 => 1.43 - Area of Debridement (cm) - Length 0.3 => 1.3 - Area of Debridement (cm) - Width 0.8 => 1.1 - Total Square (Area) (cm) 0.24 => 1.43 08/22/22 09/05/22 09/12/22 13:41 13:48 13:45 Wound Center Nurse 2 #3 L Stump/Post op -Time 13:41 13:50 13:45 -Correct Patient Yes Yes Yes -Correct Side, Site, Position Yes Yes Yes -Correct Procedure Yes Yes Yes -Procedure Performed Yes Yes Yes -Type of Procedure Debridement Debridement Debridement -Clinical Debridement Bone Muscle / Fascia Muscle / Fascia -Tissue Removed Tendon Muscle Muscle -Post Debridement (cm) - Length 1.3 1.8 2.0 -Post Debridement (cm) - Width 1.1 2.3 2.0 -Post Debridement (cm) - Depth 0.5 0.2 0.3 -Total Square (Post) (cm) 1.43 4.14 4.00 -Area of Debridement (cm) - Length 1.3 1.8 2.0 -Area of Debridement (cm) - Width 1.1 2.3 2.0 -Total Square (Area) (cm) 1.43 4.14 4.00 -Tunneling No No No -Undermining/Tunneling No No No -Circular Undermining No No No -Wound/Ulcer Outcome Not Healed Not Healed Not Healed -Ulcer Cleansing Rinsed/ Rinsed/ Rinsed/ Irrigated with Irrigated with Irrigated with Saline Saline Saline -Foul Odor after Cleansing No No -Bioengineered Tissue No No No -Bleeding Controlled with Pressure Pressure Pressure -Treatment Response Procedure Procedure Not Procedure Tolerated Well Tolerated Well Tolerated Well -Offloading No No No -Assistive Device(s) Wheelchair Wheelchair -Debridement - Muscle / Fascia, 1st Yes Yes 20sq cm -Debridement - Bone, 1st 20sq cm Yes Pain Scale: 0-10 Numeric Is Patient Pain Free? Yes Yes Yes - Nurse 3 - General Ulcer D/C NN Start: 08/22/22 13:09 Freq: Status: Active Protocol: Activity Type Activity Date Activity User E-sign Co-sign Detail Recorded Client Recorded Date Recorded By Document 08/22/22 14:11 MW [id number] 08/22/22 14:13 MW Document 09/05/22 14:34 ID [id number] 09/05/22 14:35 AK Document 09/12/22 14:04 [facility] [id number] 09/12/22 14:04 [facility] 08/22/22 09/05/22 09/12/22 14:11 14:34 14:04 Wound Care Center Nurse 3 #3 L Stump/Post op -Ulcer Cleansing Rinsed/ Rinsed/ Rinsed/ Irrigated with Irrigated with Irrigated with Saline Saline Saline -Foul Odor after Cleansing No No No -Negative Pressure Wound Therapy N/A -Primary Dressing Applied Promogran Aquacel AG 4x4 Promogran Garima Matter Garima Matter -Primary Dressing Covered/Secured with Dry Gauze & Dry Gauze, Dry Gauze, Roll Gauze, Secured with Secured with Secured with Tape Tape Tape -Other Covering abd -Aquacel AG 4x4 1 -Promogran Garima Matter 1 1 Treatment Response Procedure Procedure Tolerated Well Tolerated Well Pain Scale: 0-10 Numeric Is Patient Pain Free? Yes Yes Yes WC - Visit Discharge Discharge Condition Stable Stable Stable Ambulatory Status Wheelchair Ambulatory Wheelchair Transportation Private Auto Private Auto Private Auto Medication Reconcilliation completed & Yes provided to patient/care provider Clinical Summary of Care Provided Yes 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 without evidence of necrosis (2) Pain of amputation stump of left lower extremity: CODE(S): T87.89 - Other complications of amputation stump; M79.605 - Pain in left leg (3) Personal history of Methicillin resistant Staphylococcus aureus infection: CODE(S): Z86.14 - Personal history of Methicillin resistant Staphylococcus aureus infection (4) Diabetes: CODE(S): E11.9 - Type 2 diabetes mellitus without complications (5) History of below-knee amputation of left lower extremity: CODE(S): Z89.512 - Acquired absence of left leg below knee (6) Smoker: CODE(S): F17.200 - Nicotine dependence, unspecified, uncomplicated PLAN: Plan Continue Garima wound care to left BKA stump ulcer. He has completed 10 applications of Epifix. Compression - AMIE wrap or non-silicone stump protection manager. He has stopped wearing his silicone stump protection manager because it may have been causing maceration to the yudy wound. He states he is not wearing his prosthesis. The ulcer looks better after I debrided the callus at the edges and debrided the bone. Pathology from 08/22/22 was negative for acute osteomyelitis. A wound culture from 06/24/22 was positive for Staphylococcus aureus and he was treated with Augmentin. Discussed with the patient that an operative debridement is necessary since scar tissue over the bone inferiorly is not sustainable in a prosthesis. Coverage over the bone with soft tissue from an advancement flap would provide a cushion for the prosthesis. The surrounding tissue and posterior myocutaneous flap, after debridement of scar tissue, may be able to cover the bone. This is the ideal situation. May have to shorten the bone a little bit in order to make this happen. I will be conservative with the bone excision because if the stump ends up being too short, it would be problematic with fitting of the prosthesis. In that scenario, revision to an AKA would be necessary and then proceed with therapy with an AKA prosthesis. Patient voices understanding. Right now the length of the tibial from the tibial tubercle is 11 cm. The range is 10-12 cm. So I can shorten the bone 1 cm and still be in range to allow closure with minimal tension. Encouraged patient to stop smoking as it may have deleterious effects on wound healing. Surgery would be done under general anesthesia with a surgical observation overnight stay in the hospital. Patient was informed of the risks and complications of the procedure including alternatives to surgery. These were discussed with the patient personally. Patient voices understanding and wishes to proceed. Potential risks and complications included but not inclusive of bleeding, infection, seroma, hematoma, bruising, swelling, prolonged need for drains, loss of sensation to skin, partial or complete loss of skin flap, wound breakdown, need for wound care, poor scarring, poor aesthetic outcome, intra operative cardiac or neurologic events, DVT, PE, and reaction to anesthesia. Encouraged patient to stop smoking as it may have deleterious effects on wound healing. Preop he will need a Prealbumin checked. His last one in the chart was 9.9 on 11/07/20. Would like to see his nutritional status maximized before proceeding with secondary wound closure with a posterior myocutaneous advancement flap. He also needs a HgbA1c. For the elective procedure involving a posterior myocutaneous advancement flap, the HgbA1c needs to be less than 8. Follow up in 2 weeks.
== END 2022-09-20 23:59 | disposition home or self-care (01) ==
LOC: WC 13:00
PROVIDERS: PCP Family Medicine; Visit Provider Surgery
DX: T87.89 Other complications of amputation stump (principal); E11.622 Type 2 diabetes mellitus with other skin ulcer; Z89.512 Acquired absence of left leg below knee; L97.926 Non-pressure chronic ulcer of unspecified part of left lower leg with bone involvement without evidence of necrosis; L90.5 Scar conditions and fibrosis of skin; Y83.5 Amputation of limb(s) as the cause of abnormal reaction of the patient, or of later complication, without mention of misadventure at the time of the procedure; F17.200 Nicotine dependence, unspecified, uncomplicated; Z86.14 Personal history of Methicillin resistant Staphylococcus aureus infection
CPT/HCPCS: 11043; 11044; 88307; 88311

== ENCOUNTER 2022-10-21 14:00 | Outpatient (RCR) | payer MEDICARE, MEDICAID, SELFPAY ==
[2022-09-21 01:06] VITALS: BP 141/72; PULSE 54; RESP 16; TEMP 36.1
[2022-09-26 13:12] VITALS: BP 154/75; PULSE 57; RESP 16; TEMP 35.8
--- NOTE | 2022-09-26 15:53 | PN.PCM_ITS ---
History of Present Illness Date of Service: 09/26/22 Chief Complaint: Ulcer on left BKA after I&D of a diabetic abscess/hematoma on 11/06/20 History of Wound: Surgery on 11/06/20 - Surgical preparation left below knee amputation stump with incision and drainage and excisional debridement with partial ostectomy tibia for osteomyelitis and evacuation hematoma for draining diabetic ulcer abscess. (He had his Left BKA on 04/17/20). Operative tissue and bone cultures were negative. Wound cultures from 11/02/20 positive for MSSA, Enterobacter cloacae complex, and Corynebacterium amycolatum. At his last visit on 08/22/22 bony debridement was done to the stump because there was some bone exposed. Pathology was negative for acute osteomyelitis. Prealbumin 9.9 on 11/07/20. He was evaluated by Dr. Boston on 12/06/21 for an operative debridement and possible osteomyelitis. Surgery with Dr. Boston on 12/25/21 for Debridement left lower extremity amputation stump skin, subcutaneous tissue, fascia, bone. Bone culture 12/25/21 - Staphylococcus aureus. Pathology of bone showed dense fibroconnective tissue with reactive changes and foreign body giant cell reaction. Pieces of bone with reactive changes. Wound culture from 09/17/21 showed no growth. Wound culture from 07/09/21 positive for Staphylococcus aureus and Streptococcus agalactiae (B). He was started on Augmentin and a Probiotic. Xray obtained on 10/01/21 of his left BKA stump because of his non healing ulcer. The xray showed bony abnormalities along the lateral aspect of the amputation site of the proximal tibia. Consider further evaluation to exclude osteomyelitis. He obtained this xray at [facility]. MRI obtained 10/31/21, at [facility], of his left BKA which showed Bone edema with contrast enhancement of the tibia consistent with osteomyelitis. Small fluid collection at the distal aspect of the amputated tibia suggestive of small abscess. Wound culture from 06/24/22 was positive for Staphylococcus aureus. He was treated with Augmentin. He has has completed ten applications of Theraskin which did help decrease his ulcer size. 02/25/22-Unroofed the undermining from 9-3 o'clock to make wound care easier. Wound care - He has had 10 applications of Theraskin. Since he has had an operative debridement, he has had 10 applications of Epifix which he completed 04/08/22. Wound care will be moistened Garima topped with adaptic and covered with gauze daily after washing with soap and water. He is wearing a stump human resources operations coordinator for compression. Today he denies any fever. He states his appetite is good. Progress of Wound: slowly improving as the callus formation has decreased a lot. Objective Data Objective Data Vital Signs: Vital Signs Temp Pulse Resp BP 96.4 F L 57 L 16 154/75 H 09/26/22 13:12 09/26/22 13:12 09/26/22 13:12 09/26/22 13:12 Prealbumin was 9.9 on 11/07/20. Before we proceed with revision of the stump with advancement flap and secondary wound closure, his Prealbumin needs to be maximized. Lab / Micro Data Attestation: I reviewed the patient's lab results. Charges/Coding Procedures Integumentary [id number]: [id number] Ria musc/fascia 20 sq cm/< (ICD-10 - L97.926, T87.89, Z86.14, E11.9, Z89.512, F17.200) Debridement Note Debridement Note Wound debrided: #3 Left BKA stump. Laterality: Left Wound Grade/Stage: 4. Type of Debridement: Excisional debridement Anesthesia Used: 4% Lidocaine Solution Depth: Down to and including healthy tissue, in the subcutaneous layer, to muscle and to bone (bone is palpable but not exposed and not debrided.) Percentage of wound debrided: 100 Instrument Used: 3mm curette Tissue Removed: subcutaneous tissue and muscle. bone is palpable but not debr ided. Severity: Fat Layer Exposed (muscle is exposed. bone is palpable but not exposed and not debrided.) Amount of bleeding with debridement: Mild Bleeding Controlled with: Pressure and Compression and gauze Patient tolerated procedure: Patient tolerated procedure well Post-Debridement Measurements and Additional Note: Post-Debridement Measurements/Treatment FREDI - Nurse 1 - General Ulcer Assessment Start: 09/26/22 13:12 Freq: Status: Active Protocol: ARLETH Activity Type Activity Date Activity User E-sign Co-sign Detail Recorded Client Recorded Date Recorded By Document 09/26/22 13:12 MARSHALL [id number] 09/26/22 13:13 MARSHALL 09/26/22 13:12 - Today's Visit Information Type of service Follow-up Visit (Physician/RESOLUTION ANALYST ) Arrival Mode Wheelchair Patient Identification Verified (Name & Yes ) Patient Requires Transmission-Based No Precautions Vital Signs Temperature (97.8 F-99.1 F) 96.4 F L Temperature Source Temporal Pulse Rate (60-100) 57 L Pulse Location Monitor Respiratory Rate (12-18) 16 Respiratory rate source Observation Blood Pressure (90/60-120/80) 154/75 H Blood Pressure Mean (mm Hg) 101 Source Monitor Position Semi-Fowlers Blood Pressure Location Left Arm History Since Last Visit- (Skip if this is Patient's initial visit) Have you changed medications since your No last visit? Any new allergies or adverse reactions No Had a fall/change in ADL's that may No increase risk of falls Signs or symptoms of abuse and/or No neglect since last visit Have you been in the hospital since your No last visit? Has dressing in place as prescribed Yes Has compression in place as prescribed N/A Has offloadiing in place as prescribed Yes Experienced any changes in pain level or No management Left Footwear No Footwear Right Footwear Regular Shoe Pain Scale: 0-10 Numeric Is Patient Pain Free? Yes - Nurse 1 - General Ulcer Measurement Start: 09/26/22 13:12 Freq: Status: Active Protocol: Activity Type Activity Date Activity User E-sign Co-sign Detail Recorded Client Recorded Date Recorded By Document 09/26/22 13:12 [id number] 09/26/22 13:13 09/26/22 13:12 Wound Center Nurse 1 #3 L Stump/Post op -Combined with other wound No -Current Size (cm) - Length 1.5 -Current Size (cm) - Width 1.7 -Current Size (cm) - Depth 0.2 -Total Square Cm 2.55 -Photo Taken No -Epithelialization Small 1-33% -Tunneling No -Undermining/Tunneling No -Circular Undermining No -Exudate Amt Small -Exudate Type Serosanguineous -Wound Margin Flat & Intact -Granulation Amt Medium (34-66%) -Granulation Quality [place] -Slough/Fibrin Yes -Necrosis Amt Small (1-33%) -Necrotic Tissue Type Adherent Slough -Structure Exposed N/A -Texture (Yudy-wound Skin Appearance) Assessed, Scarring -Moisture (Yudy-wound Skin Appearance) Assessed,Dry/ Scaly -Color (Yudy-wound Skin Appearance) Assessed -Temperature (Yudy-wound Skin No Abnormality Appearance) (Pt Warm) -Tenderness on Palpation (Yudy-wound No Skin Appearance) -Ulcer Cleansing Rinsed/ Irrigated with Saline -Foul Odor after Cleansing No -Anesthetic Used 5% Lidocaine Gel Lower Limb Edema Present NA WC - Nurse 2 - General Ulcer CM Notes Start: 09/26/22 13:12 Freq: Status: Active Protocol: Activity Type Activity Date Activity User E-sign Co-sign Detail Recorded Client Recorded Date Recorded By Document 09/26/22 13:51 MARSHALL [id number] 09/26/22 13:56 JF Edit Result 09/26/22 13:51 JF (1) [id number] 09/26/22 13:58 JF (1) #3 L Stump/Post op - Clinical Debridement Subcutaneous => Muscle / Fascia - Tissue Removed Subcutaneous => Muscle,Fascia - Debridement - Subq, 1st 20sq cm Yes => No - Debridement - Muscle / Fascia, 1st => Yes 20sq cm 09/26/22 13:51 Wound Center Nurse 2 #3 L Stump/Post op -Time 13:51 -Correct Patient Yes -Correct Side, Site, Position Yes -Correct Procedure Yes -Procedure Performed Yes -Type of Procedure Debridement -Clinical Debridement Muscle / Fascia -Tissue Removed Muscle,Fascia -Post Debridement (cm) - Length 1.7 -Post Debridement (cm) - Width 1.9 -Post Debridement (cm) - Depth 0.3 -Total Square (Post) (cm) 3.23 -Area of Debridement (cm) - Length 1.7 -Area of Debridement (cm) - Width 1.9 -Total Square (Area) (cm) 3.23 -Tunneling No -Undermining/Tunneling No -Circular Undermining No -Wound/Ulcer Outcome Not Healed -Ulcer Cleansing Rinsed/ Irrigated with Saline -Foul Odor after Cleansing No -Bioengineered Tissue No -Bleeding Controlled with Pressure,Silver Nitrate -Treatment Response Procedure Tolerated Well -Offloading No -Debridement - Subq, 1st 20sq cm No -Debridement - Muscle / Fascia, 1st Yes 20sq cm Pain Scale: 0-10 Numeric Is Patient Pain Free? Yes - Nurse 3 - General Ulcer D/C NN Start: 09/26/22 13:12 Freq: Status: Active Protocol: Activity Type Activity Date Activity User E-sign Co-sign Detail Recorded Client Recorded Date Recorded By Document 09/26/22 14:04 KUN [id number] 09/26/22 14:05 KUN 09/26/22 14:04 Wound Care Center Nurse 3 #3 L Stump/Post op -Ulcer Cleansing Rinsed/ Irrigated with Saline -Primary Dressing Covered/Secured with Dry Gauze, Secured with Tape Pain Scale: 0-10 Numeric Is Patient Pain Free? 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 without evidence of necrosis (2) Pain of amputation stump of left lower extremity: CODE(S): T87.89 - Other complications of amputation stump; M79.605 - Pain in left leg (3) Personal history of Methicillin resistant Staphylococcus aureus infection: CODE(S): Z86.14 - Personal history of Methicillin resistant Staphylococcus aureus infection (4) Diabetes: CODE(S): E11.9 - Type 2 diabetes mellitus without complications (5) History of below-knee amputation of left lower extremity: CODE(S): Z89.512 - Acquired absence of left leg below knee (6) Smoker: CODE(S): F17.200 - Nicotine dependence, unspecified, uncomplicated PLAN: Plan Continue Garima wound care to left BKA stump ulcer. He has completed 10 applications of Epifix. Compression - AMIE wrap or non-silicone stump human resources operations coordinator. He has stopped wearing his silicone stump human resources operations coordinator because it may have been causing maceration to the yudy wound. He states he is not wearing his prosthesis. The ulcer looks better after I debrided the callus at the edges and debrided the bone. Pathology from 08/22/22 was negative for acute osteomyelitis. A wound culture from 06/24/22 was positive for Staphylococcus aureus and he was treated with Augmentin. Discussed with the patient that an operative debridement is necessary since scar tissue over the bone inferiorly is not sustainable in a prosthesis. Coverage over the bone with soft tissue from an advancement flap would provide a cushion for the prosthesis. The surrounding tissue and posterior myocutaneous flap, after debridement of scar tissue, may be able to cover the bone. This is the ideal situation. May have to shorten the bone a little bit in order to make this happen. I will be c onservative with the bone excision because if the stump ends up being too short, it would be problematic with fitting of the prosthesis. In that scenario, revision to an AKA would be necessary and then proceed with therapy with an AKA prosthesis. Patient voices understanding. Right now the length of the tibial from the tibial tubercle is 11 cm. The range is 10-12 cm. So I can shorten the bone 1 cm and still be in range to allow closure with minimal tension. Encouraged patient to stop smoking as it may have deleterious effects on wound healing. Surgery would be done under general anesthesia with a surgical observation overnight stay in the hospital. Patient was informed of the risks and complications of the procedure including alternatives to surgery. These were discussed with the patient personally. Patient voices understanding and initially wished to proceed. Now he wants to hold off on Surgery at this time. He will let us know when he wants to reschedule. Encouraged patient to stop smoking as it may have deleterious effects on wound healing. When he decides on surgery, he will need a Prealbumin checked. His last one in the chart was 9.9 on 11/07/20. Would like to see his nutritional status maximized before proceeding with secondary wound closure with a posterior myocutaneous advancement flap. He also needs a HgbA1c. For the elective procedure involving a posterior myocutaneous advancement flap, the HgbA1c needs to be less than 8. Follow up in 3 weeks.
[2022-10-21 13:53] VITALS: BP 145/76; PULSE 62; RESP 20; TEMP 36.2
--- NOTE | 2022-10-21 16:55 | PCM.WC.PN ---
History of Present Illness Date of Service: 10/21/22 Chief Complaint: Ulcer on left BKA after I&D of a diabetic abscess/hematoma on 11/06/20 History of Wound: Surgery on 11/06/20 - Surgical preparation left below knee amputation stump with incision and drainage and excisional debridement with partial ostectomy tibia for osteomyelitis and evacuation hematoma for draining diabetic ulcer abscess. (He had his Left BKA on 04/17/20). Operative tissue and bone cultures were negative. Wound cultures from 11/02/20 positive for MSSA, Enterobacter cloacae complex, and Corynebacterium amycolatum. At his last visit on 08/22/22 bony debridement was done to the stump because there was some bone exposed. Pathology was negative for acute osteomyelitis. Prealbumin 9.9 on 11/07/20. He was evaluated by Dr. Boston on 12/06/21 for an operative debridement and possible osteomyelitis. Surgery with Dr. Boston on 12/25/21 for Debridement left lower extremity amputation stump skin, subcutaneous tissue, fascia, bone. Bone culture 12/25/21 - Staphylococcus aureus. Pathology of bone showed dense fibroconnective tissue with reactive changes and foreign body giant cell reaction. Pieces of bone with reactive changes. Wound culture from 09/17/21 showed no growth. Wound culture from 07/09/21 positive for Staphylococcus aureus and Streptococcus agalactiae (B). He was started on Augmentin and a Probiotic. Xray obtained on 10/01/21 of his left BKA stump because of his non healing ulcer. The xray showed bony abnormalities along the lateral aspect of the amputation site of the proximal tibia. Consider further evaluation to exclude osteomyelitis. He obtained this xray at [facility]. MRI obtained 10/31/21, at [facility], of his left BKA which showed Bone edema with contrast enhancement of the tibia consistent with osteomyelitis. Small fluid collection at the distal aspect of the amputated tibia suggestive of small abscess. Wound culture from 06/24/22 was positive for Staphylococcus aureus. He was treated with Augmentin and has finished them. He has has completed ten applications of Thera-skin which did help decrease his ulcer size. 02/25/22-Unroofed the undermining from 9-3 o'clock to make wound care easier. Wound care - He has had 10 applications of Thera-skin. Since he has had an operative debridement, he has had 10 applications of Epi-fix which he completed 04/08/22. Wound care will be moistened Garima topped with gauze daily after washing with soap and water. He is wearing a stump debt and budget counselor for compression. Today he denies any fever. He states his appetite is good. Progress of Wound: slowly improving as the callus formation has resolved. Has hypergranulation tissue. Objective Data Objective Data Vital Signs: Vital Signs Temp Pulse Resp BP 97.1 F L 62 20 H 145/76 H 10/21/22 13:53 10/21/22 13:53 10/21/22 13:53 10/21/22 13:53 Prealbumin was 9.9 on 11/07/20. Before we proceed with revision of the stump with advancement flap and secondary wound closure, his Prealbumin needs to be maximized. Lab / Micro Data Attestation: I reviewed the patient's lab results. Charges/Coding Procedures Integumentary 111xxx-113xx: 30727 Ria musc/fascia 20 sq cm/< (ICD-10 - L97.926, T87.89, L92.9, Z86.14, E11.9, Z89.512, F17.200) 16xxx-193xx: 23233 Chemical cautery tissue (ICD-10 - L92.9, L97.926, T87.89, Z86.14, E11.9, Z89.512, F17.200) Debridement Note Debridement Note Wound debrided: #3 Left BKA stump. Laterality: Left Wound Grade/Stage: 4. Type of Debridement: Excisional debridement Anesthesia Used: 4% Lidocaine Solution Depth: Down to and including healthy tissue, in the subcutaneous layer, to muscle and to bone (bone is palpable but not exposed and not debrided.) Percentage of wound debrided: 100 Instrument Used: 3mm curette Tissue Removed: subcutaneous tissue and muscle. hypergranulation tissue present. Severity: Fat Layer Exposed (muscle is exposed. hypergranulation tissue present.) Amount of bleeding with debridement: Mild Bleeding Controlled with: Pressure, Compression and gauze and Silver Nitrate (I used silver nitrate chemical cauterization for the hypergranulation tissue since it can slow down healing. Silver nitrate helps to stunt further growth of hypergranulation tissue.) Patient tolerated procedure: Patient tolerated procedure well Post-Debridement Measurements and Additional Note: Post-Debridement Measurements/Treatment WC - Nurse 1 - General Ulcer Assessment Start: 09/26/22 13:12 Freq: Status: Active Protocol: ARLETH Activity Type Activity Date Activity User E-sign Co-sign Detail Recorded Client Recorded Date Recorded By Document 09/26/22 13:12 MARSHALL [id number] 09/26/22 13:13 JF Document 10/21/22 13:53 DL [id number] 10/21/22 13:56 DL 09/26/22 10/21/22 13:12 13:53 WC - Today's Visit Information Type of service Follow-up Visit Follow-up Visit (Physician/COLLAR STARCHER (Physician/COLLAR STARCHER ) ) Arrival Mode Wheelchair Wheelchair Transfer Assistance None Patient Identification Verified (Name & Yes Yes ) Patient Requires Transmission-Based No No Precautions Vital Signs Temperature (97.8 F-99.1 F) 96.4 F L 97.1 F L Temperature Source Temporal Temporal Pulse Rate (60-100) 57 L 62 Pulse Location Monitor Monitor Respiratory Rate (12-18) 16 20 H Respiratory rate source Observation Observation Blood Pressure (90/60-120/80) 154/75 H 145/76 H Blood Pressure Mean (mm Hg) 101 99 Source Monitor Monitor Position Semi-Fowlers Blood Pressure Location Left Arm History Since Last Visit- (Skip if this is Patient's initial visit) Have you changed medications since your No No last visit? Any new allergies or adverse reactions No No Had a fall/change in ADL's that may No No increase risk of falls Signs or symptoms of abuse and/or No No neglect since last visit Have you been in the hospital since your No No last visit? Has dressing in place as prescribed Yes Yes Has compression in place as prescribed N/A Yes Has offloadiing in place as prescribed Yes Yes Experienced any changes in pain level or No No management Left Footwear No Footwear Right Footwear Regular Shoe Pain Scale: 0-10 Numeric Is Patient Pain Free? Yes Yes FREDI - Nurse 1 - General Ulcer Measurement Start: 09/26/22 13:12 Freq: Status: Active Protocol: Activity Type Activity Date Activity User E-sign Co-sign Detail Recorded Client Recorded Date Recorded By Document 09/26/22 13:12 JF [id number] 09/26/22 13:13 JF Document 10/21/22 13:53 DL [id number] 10/21/22 13:56 DL 09/26/22 10/21/22 13:12 13:53 Wound Center Nurse 1 #3 L Stump/Post op -Combined with other wound No -Current Size (cm) - Length 1.5 1.5 -Current Size (cm) - Width 1.7 1.6 -Current Size (cm) - Depth 0.2 0.2 -Total Square Cm 2.55 2.40 -Photo Taken No -Epithelialization Small 1-33% -Tunneling No -Undermining/Tunneling No -Circular Undermining No -Exudate Amt Small Small -Exudate Type Serosanguineous Serosanguineous -Wound Margin Flat & Intact Distinct, Outline Attached -Granulation Amt Medium (34-66%) Large (67-100%) -Granulation Quality [place],Red -Slough/Fibrin Yes -Necrosis Amt Small (1-33%) Small (1-33%) -Necrotic Tissue Type Adherent Slough Adherent Slough -Structure Exposed N/A N/A -Texture (Yudy-wound Skin Appearance) Assessed, Scarring Scarring -Moisture (Yudy-wound Skin Appearance) Assessed,Dry/ No Abnormality Scaly -Color (Yudy-wound Skin Appearance) Assessed No Abnormality -Temperature (Yudy-wound Skin No Abnormality No Abnormality Appearance) (Pt Warm) (Pt Warm) -Tenderness on Palpation (Yudy-wound No Skin Appearance) -Ulcer Cleansing Rinsed/ Rinsed/ Irrigated with Irrigated with Saline Saline -Foul Odor after Cleansing No No -Anesthetic Used 5% Lidocaine 5% Lidocaine Gel Gel Lower Limb Edema Present NA WC - Nurse 2 - General Ulcer CM Notes Start: 09/26/22 13:12 Freq: Status: Active Protocol: Activity Type Activity Date Activity User E-sign Co-sign Detail Recorded Client Recorded Date Recorded By Document 09/26/22 13:51 MARSHALL [id number] 09/26/22 13:56 Edit Result 09/26/22 13:51 JF (1) [id number] 09/26/22 13:58 JF Document 10/21/22 14:35 PL [id number] 10/21/22 14:36 PL (1) #3 L Stump/Post op - Clinical Debridement Subcutaneous => Muscle / Fascia - Tissue Removed Subcutaneous => Muscle,Fascia - Debridement - Subq, 1st 20sq cm Yes => No - Debridement - Muscle / Fascia, 1st => Yes 20sq cm 09/26/22 10/21/22 13:51 14:35 Wound Center Nurse 2 #3 L Stump/Post op -Time 13:51 14:15 -Correct Patient Yes Yes -Correct Side, Site, Position Yes Yes -Correct Procedure Yes Yes -Procedure Performed Yes Yes -Type of Procedure Debridement Debridement -Clinical Debridement Muscle / Fascia Muscle / Fascia -Tissue Removed Muscle,Fascia Subcutaneous, Muscle -Post Debridement (cm) - Length 1.7 1.5 -Post Debridement (cm) - Width 1.9 1.6 -Post Debridement (cm) - Depth 0.3 0.2 -Total Square (Post) (cm) 3.23 2.40 -Area of Debridement (cm) - Length 1.7 1.5 -Area of Debridement (cm) - Width 1.9 1.6 -Total Square (Area) (cm) 3.23 2.40 -Tunneling No No -Undermining/Tunneling No No -Circular Undermining No No -Wound/Ulcer Outcome Not Healed Not Healed -Ulcer Cleansing Rinsed/ Rinsed/ Irrigated with Irrigated with Saline Saline -Foul Odor after Cleansing No No -Bioengineered Tissue No No -Bleeding Controlled with Pressure,Silver nitrate Pressure. Silver nitrate used for chemical cauterization of hypergranulation tissue -Treatment Response Procedure Procedure Tolerated Well Tolerated Well -Offloading No -Debridement - Subq, 1st 20sq cm No -Debridement - Muscle / Fascia, 1st Yes Yes 20sq cm Pain Scale: 0-10 Numeric Is Patient Pain Free? Yes Yes WC - Nurse 3 - General Ulcer D/C NN Start: 09/26/22 13:12 Freq: Status: Active Protocol: Activity Type Activity Date Activity User E-sign Co-sign Detail Recorded Client Recorded Date Recorded By Document 09/26/22 14:04 [id number] 09/26/22 14:05 Document 10/21/22 14:26 [facility] [id number] 10/21/22 14:27 [facility] 09/26/22 10/21/22 14:04 14:26 Wound Care Center Nurse 3 #3 L Stump/Post op -Ulcer Cleansing Rinsed/ Rinsed/ Irrigated with Irrigated with Saline Saline -Foul Odor after Cleansing No -Primary Dressing Covered/Secured with Dry Gauze, Dry Gauze, Secured with Secured with Tape Tape Treatment Response Procedure Tolerated Well Pain Scale: 0-10 Numeric Is Patient Pain Free? Yes Yes WC - Visit Discharge Discharge Condition Stable Stable Ambulatory Status Wheelchair Wheelchair Transportation Private Auto Private Auto Medication Reconcilliation completed & No provided to patient/care provider Clinical Summary of Care Provided Yes 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 without evidence of necrosis (2) Pain of amputation stump of left lower extremity: CODE(S): T87.89 - Other complications of amputation stump; M79.605 - Pain in left leg (3) Abnormal granulation tissue: CODE(S): L92.9 - Granulomatous disorder of the skin and subcutaneous tissue, unspecified (4) Personal history of Methicillin resistant Staphylococcus aureus infection: CODE(S): Z86.14 - Personal history of Methicillin resistant Staphylococcus aureus infection (5) Diabetes: CODE(S): E11.9 - Type 2 diabetes mellitus without complications (6) History of below-knee amputation of left lower extremity: CODE(S): Z89.512 - Acquired absence of left leg below knee (7) Smoker: CODE(S): F17.200 - Nicotine dependence, unspecified, uncomplicated PLAN: Plan Continue Garima wound care to left BKA stump ulcer. He has completed 10 applications of Epi-fix. Compression - AMIE wrap or non-silicone stump debt and budget counselor. He has stopped wearing his silicone stump debt and budget counselor because it may have been causing maceration to the yudy wound. He states he is not wearing his prosthesis. The ulcer looks better after I debrided the callus at the edges and debrided the bone. Pathology from 08/22/22 was negative for acute osteomyelitis. A wound culture from 06/24/22 was positive for Staphylococcus aureus and he was treated with Augmentin and has finished them. Discussed with the patient that an operative debridement is necessary since scar tissue over the bone inferiorly is not sustainable in a prosthesis. Coverage over the bone with soft tissue from an advancement flap would provide a cushion for the prosthesis. The surrounding tissue and posterior myocutaneous flap, after debridement of scar tissue, may be able to cover the bone. This is the ideal situation. May have to shorten the bone a little bit in order to make this happen. I will be conservative with the bone excision because if the stump ends up being too short, it would be problematic with fitting of the prosthesis. In that scenario, revision to an AKA would be necessary and then proceed with therapy with an AKA prosthesis. Patient voices understanding. Right now the length of the tibial from the tibial tubercle is 11 cm. The range is 10-12 cm. So I can shorten the bone 1 cm and still be in range to allow closure with minimal tension. Surgery would be done under general anesthesia with a surgical observation overnight stay in the hospital. Patient was informed of the risks and complications of the procedure including alternatives to surgery. These were discussed with the patient personally. Patient voices understanding and initially wished to proceed. Now he wants to hold off on Surgery at this time. He will let us know when he wants to reschedule. When he decides on surgery, he will need a Prealbumin checked. His last one in the chart was 9.9 on 11/07/20. Would like to see his nutritional status maximized before proceeding with secondary wound closure with a posterior myocutaneous advancement flap. He also needs a HgbA1c. For the elective procedure involving a posterior myocutaneous advancement flap, the HgbA1c needs to be less than 8. Follow up in 2 weeks. Encouraged patient to stop smoking as it may have deleterious effects on wound healing.
== END 2022-10-21 23:59 | disposition home or self-care (01) ==
LOC: WC 14:00
PROVIDERS: PCP Family Medicine; Visit Provider Surgery
DX: T87.89 Other complications of amputation stump (principal); E11.622 Type 2 diabetes mellitus with other skin ulcer; Z89.512 Acquired absence of left leg below knee; L98.492 Non-pressure chronic ulcer of skin of other sites with fat layer exposed; Y83.5 Amputation of limb(s) as the cause of abnormal reaction of the patient, or of later complication, without mention of misadventure at the time of the procedure; Z86.14 Personal history of Methicillin resistant Staphylococcus aureus infection; F17.200 Nicotine dependence, unspecified, uncomplicated; L90.5 Scar conditions and fibrosis of skin
CPT/HCPCS: 11042; 11043; 17250

== ENCOUNTER 2022-11-18 09:00 | Outpatient (RCR) | payer MEDICARE, MEDICAID, SELFPAY ==
[2022-10-22 00:34] VITALS: BP 145/76; PULSE 62; RESP 20; TEMP 36.2
[2022-11-04 14:15] VITALS: BP 128/68; PULSE 67; RESP 16; TEMP 36
--- NOTE | 2022-11-04 16:24 | PCM.WC.PN ---
History of Present Illness Date of Service: 11/04/22 Chief Complaint: Ulcer on left BKA after I&D of a diabetic abscess/hematoma on 11/06/20 History of Wound: Surgery on 11/06/20 - Surgical preparation left below knee amputation stump with incision and drainage and excisional debridement with partial ostectomy tibia for osteomyelitis and evacuation hematoma for draining diabetic ulcer abscess. (He had his Left BKA on 04/17/20). Operative tissue and bone cultures were negative. Wound cultures from 11/02/20 positive for MSSA, Enterobacter cloacae complex, and Corynebacterium amycolatum. At his last visit on 08/22/22 bony debridement was done to the stump because there was some bone exposed. Pathology was negative for acute osteomyelitis. Prealbumin 9.9 on 11/07/20. He was evaluated by Dr. Boston on 12/06/21 for an operative debridement and possible osteomyelitis. Surgery with Dr. Boston on 12/25/21 for Debridement left lower extremity amputation stump skin, subcutaneous tissue, fascia, bone. Bone culture 12/25/21 - Staphylococcus aureus. Pathology of bone showed dense fibroconnective tissue with reactive changes and foreign body giant cell reaction. Pieces of bone with reactive changes. Wound culture from 09/17/21 showed no growth. Wound culture from 07/09/21 positive for Staphylococcus aureus and Streptococcus agalactiae (B). He was started on Augmentin and a Probiotic. Xray obtained on 10/01/21 of his left BKA stump because of his non healing ulcer. The xray showed bony abnormalities along the lateral aspect of the amputation site of the proximal tibia. Consider further evaluation to exclude osteomyelitis. He obtained this xray at [facility]. MRI obtained 10/31/21, at [facility], of his left BKA which showed Bone edema with contrast enhancement of the tibia consistent with osteomyelitis. Small fluid collection at the distal aspect of the amputated tibia suggestive of small abscess. Wound culture from 06/24/22 was positive for Staphylococcus aureus. He was treated with Augmentin. He has has completed ten applications of Theraskin which did help decrease his ulcer size. 02/25/22-Unroofed the undermining from 9-3 o'clock to make wound care easier. Wound care - He has had 10 applications of Theraskin. Since he has had an operative debridement, he has had 10 applications of Epifix which he completed 04/08/22. Wound care will be moistened Garima topped with adaptic and covered with gauze daily after washing with soap and water. He is wearing a stump business development analyst for compression. Today he denies any fever. He states his appetite is good. Progress of Wound: The callus at the edges is starting ro recur again. Objective Data Objective Data Vital Signs: Vital Signs Temp Pulse Resp BP O2 Del Method 96.8 F L 67 16 128/68 H Room Air 11/04/22 14:15 11/04/22 14:15 11/04/22 14:15 11/04/22 14:15 11/04/22 14:15 Oxygen Delivery Method Room Air Prealbumin was 9.9 on 11/07/20. Before we proceed with revision of the stump with advancement flap and secondary wound closure, his Prealbumin needs to be maximized. Lab / Micro Data Attestation: I reviewed the patient's lab results. Charges/Coding Procedures Integumentary 111xxx-113xx: 40790 Ria musc/fascia 20 sq cm/< (ICD-10 - L97.926, T87.89, Z86.14, E11.9, Z89.512, F17.200) Debridement Note Debridement Note Wound debrided: #3 Left BKA stump. Laterality: Left Wound Grade/Stage: 4. Type of Debridement: Excisional debridement Anesthesia Used: 4% Lidocaine Solution Depth: Down to and including healthy tissue, in the subcutaneous layer, to muscle and to bone (bone is palpable but not exposed and not debrided.) Percentage of wound debrided: 100 Instrument Used: 3mm curette Tissue Removed: subcutaneous tissue and muscle. Severity: Fat Layer Exposed (muscle is exposed. ) Amount of bleeding with debridement: Mild Bleeding Controlled with: Pressure and Compression and gauze Patient tolerated procedure: Patient tolerated procedure well Post-Debridement Measurements and Additional Note: Post-Debridement Measurements/Treatment WC - Nurse 1 - General Ulcer Assessment Start: 11/04/22 14:15 Freq: Status: Active Protocol: FREDI.LOWEXT Activity Type Activity Date Activity User E-sign Co-sign Detail Recorded Client Recorded Date Recorded By Document 11/04/22 14:15 [facility] [id number] 11/04/22 14:16 [facility] 11/04/22 14:15 - Today's Visit Information Type of service Follow-up Visit (Physician/CERTIFIED PROCEDURAL CODER ) Arrival Mode Wheelchair Transfer Assistance None Patient Identification Verified (Name & Yes ) Patient Requires Transmission-Based No Precautions Vital Signs Temperature (97.8 F-99.1 F) 96.8 F L Temperature Source Temporal Pulse Rate (60-100) 67 Pulse Location Monitor Respiratory Rate (12-18) 16 Respiratory rate source Observation Oxygen Delivery Method Room Air Blood Pressure (90/60-120/80) 128/68 H Blood Pressure Mean (mm Hg) 88 Source Monitor Position Sitting Blood Pressure Location Left Arm History Since Last Visit- (Skip if this is Patient's initial visit) Have you changed medications since your No last visit? Any new allergies or adverse reactions No Had a fall/change in ADL's that may No increase risk of falls Signs or symptoms of abuse and/or No neglect since last visit Have you been in the hospital since your No last visit? Has dressing in place as prescribed Yes Has compression in place as prescribed N/A Has offloadiing in place as prescribed N/A Experienced any changes in pain level or No management Pain Scale: 0-10 Numeric Is Patient Pain Free? Yes - Nurse 1 - General Ulcer Measurement Start: 11/04/22 14:15 Freq: Status: Active Protocol: Activity Type Activity Date Activity User E-sign Co-sign Detail Recorded Client Recorded Date Recorded By Document 11/04/22 14:15 [facility] [id number] 11/04/22 14:16 [facility] 11/04/22 14:15 Wound Center Nurse 1 #3 L Stump/Post op -Combined with other wound No -Current Size (cm) - Length 1.1 -Current Size (cm) - Width 1.2 -Current Size (cm) - Depth 0.2 -Total Square Cm 1.32 -Photo Taken No -Epithelialization None Present -Tunneling No -Undermining/Tunneling No -Circular Undermining No -Exudate Amt Medium -Exudate Type Serosanguineous -Wound Margin Distinct, Outline Attached -Granulation Amt Large (67-100%) -Granulation Quality Clyman -Slough/Fibrin Yes -Necrosis Amt Small (1-33%) -Necrotic Tissue Type Adherent Slough -Texture (Yudy-wound Skin Appearance) Assessed, Scarring -Moisture (Yudy-wound Skin Appearance) Assessed -Color (Yudy-wound Skin Appearance) Assessed -Temperature (Yudy-wound Skin No Abnormality Appearance) (Pt Warm) -Tenderness on Palpation (Yudy-wound No Skin Appearance) -Ulcer Cleansing Rinsed/ Irrigated with Saline -Foul Odor after Cleansing No -Anesthetic Used 5% Lidocaine Gel FREDI - Nurse 2 - General Ulcer CM Notes Start: 11/04/22 14:15 Freq: Status: Active Protocol: Activity Type Activity Date Activity User E-sign Co-sign Detail Recorded Client Recorded Date Recorded By Document 11/04/22 14:20 [id number] 11/04/22 14:22 11/04/22 14:20 Wound Center Nurse 2 -Time 14:21 -Correct Patient Yes -Correct Side, Site, Position Yes -Correct Procedure Yes -Procedure Performed Yes -Type of Procedure Debridement -Clinical Debridement Muscle / Fascia -Tissue Removed Muscle,Fascia -Post Debridement (cm) - Length 1.3 -Post Debridement (cm) - Width 1.7 -Post Debridement (cm) - Depth 0.2 -Total Square (Post) (cm) 2.21 -Area of Debridement (cm) - Length 1.3 -Area of Debridement (cm) - Width 1.7 -Total Square (Area) (cm) 2.21 -Tunneling No -Circular Undermining No -Wound/Ulcer Outcome Not Healed -Ulcer Cleansing Rinsed/ Irrigated with Saline -Foul Odor after Cleansing No -Bioengineered Tissue No -Bleeding Controlled with Pressure -Treatment Response Procedure Tolerated Well -Offloading No -Assistive Device(s) Wheelchair -Debridement - Muscle / Fascia, 1st Yes 20sq cm Pain Scale: 0-10 Numeric Is Patient Pain Free? Yes - Nurse 3 - General Ulcer D/C NN Start: 11/04/22 14:15 Freq: Status: Active Protocol: Activity Type Activity Date Activity User E-sign Co-sign Detail Recorded Client Recorded Date Recorded By Document 11/04/22 14:28 [facility] [id number] 11/04/22 14:28 11/04/22 14:28 Wound Care Center Nurse 3 #3 L Stump/Post op -Ulcer Cleansing Rinsed/ Irrigated with Saline -Foul Odor after Cleansing No -Primary Dressing Applied Promogran Garima Matter -Primary Dressing Covered/Secured with Dry Gauze, Secured with Tape -Promogran Garima Matter 1 Pain Scale: 0-10 Numeric Is Patient Pain Free? 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 without evidence of necrosis (2) Pain of amputation stump of left lower extremity: CODE(S): T87.89 - Other complications of amputation stump; M79.605 - Pain in left leg (3) Personal history of Methicillin resistant Staphylococcus aureus infection: CODE(S): Z86.14 - Personal history of Methicillin resistant Staphylococcus aureus infection (4) Diabetes: CODE(S): E11.9 - Type 2 diabetes mellitus without complications (5) History of below-knee amputation of left lower extremity: CODE(S): Z89.512 - Acquired absence of left leg below knee (6) Smoker: CODE(S): F17.200 - Nicotine dependence, unspecified, uncomplicated PLAN: Plan Continue Garima wound care to left BKA stump ulcer. He has completed 10 applications of Epi-fix. Compression - AMIE wrap or non-silicone stump business development analyst. He has stopped wearing his silicone stump business development analyst because it may have been causing maceration to the yudy wound. He states he is not wearing his prosthesis. The ulcer had looked better after I debrided the callus at the edges and debrided the bone. Pathology from 08/22/22 was negative for acute osteomyelitis. A wound culture from 06/24/22 was positive for Staphylococcus aureus and he was treated with Augmentin and has finished them. Discussed with the patient that an operative debridement is necessary since scar tissue over the bone inferiorly is not sustainable in a prosthesis. Coverage over the bone with soft tissue from an advancement flap would provide a cushion for the prosthesis. The surrounding tissue and posterior myocutaneous flap, after debridement of scar tissue, may be able to cover the bone. This is the ideal situation. May have to shorten the bone a little bit in order to make this happen. I will be conservative with the bone excision because if the stump ends up being too short, it would be problematic with fitting of the prosthesis. In that scenario, revision to an AKA would be necessary and then proceed with therapy with an AKA prosthesis. Patient voices understanding. Right now the length of the tibial from the tibial tubercle is 11 cm. The range is 10-12 cm. So I can shorten the bone 1 cm and still be in range to allow closure with minimal tension. Surgery would be done under general anesthesia with a surgical observation overnight stay in the hospital. Patient was informed of the risks and complications of the procedure including alternatives to surgery. These were discussed with the patient personally. Patient voices understanding and initially wished to proceed. Initially he wanted to hold off on the surgery. Now he has changed his mind and wants to proceed with the surgery. At the time of surgery, he will need a Prealbumin checked. His last one in the chart was 9.9 on 11/07/20. Would like to see his nutritional status maximized before proceeding with secondary wound closure with a posterior myocutaneous advancement flap. He also needs a HgbA1c. For the elective procedure involving a posterior myocutaneous advancement flap, the HgbA1c needs to be less than 8. Follow up in 2 weeks. Encouraged patient to stop smoking as it may have deleterious effects on wound healing. Prior before surgery, more wound cultures are necessary. A positive culture will necessitate antibiotic therapy.
[2022-11-18 09:03] VITALS: BP 164/88; PULSE 52; RESP 18; TEMP 36.4
--- NOTE | 2022-11-18 12:42 | PCM.WC.PN ---
History of Present Illness Date of Service: 11/18/22 Chief Complaint: Ulcer on left BKA after I&D of a diabetic abscess/hematoma on 11/06/20 History of Wound: Surgery on 11/06/20 - Surgical preparation left below knee amputation stump with incision and drainage and excisional debridement with partial ostectomy tibia for osteomyelitis and evacuation hematoma for draining diabetic ulcer abscess. (He had his Left BKA on 04/17/20). Operative tissue and bone cultures were negative. Wound cultures from 11/02/20 positive for MSSA, Enterobacter cloacae complex, and Corynebacterium amycolatum. At his last visit on 08/22/22 bony debridement was done to the stump because there was some bone exposed. Pathology was negative for acute osteomyelitis. Prealbumin 9.9 on 11/07/20. He was evaluated by Dr. Boston on 12/06/21 for an operative debridement and possible osteomyelitis. Surgery with Dr. Boston on 12/25/21 for Debridement left lower extremity amputation stump skin, subcutaneous tissue, fascia, bone. Bone culture 12/25/21 - Staphylococcus aureus. Pathology of bone showed dense fibroconnective tissue with reactive changes and foreign body giant cell reaction. Pieces of bone with reactive changes. Wound culture from 09/17/21 showed no growth. Wound culture from 07/09/21 positive for Staphylococcus aureus and Streptococcus agalactiae (B). He was started on Augmentin and a Probiotic. Xray obtained on 10/01/21 of his left BKA stump because of his non healing ulcer. The xray showed bony abnormalities along the lateral aspect of the amputation site of the proximal tibia. Consider further evaluation to exclude osteomyelitis. He obtained this xray at [facility]. MRI obtained 10/31/21, at [facility], of his left BKA which showed Bone edema with contrast enhancement of the tibia consistent with osteomyelitis. Small fluid collection at the distal aspect of the amputated tibia suggestive of small abscess. Wound culture from 06/24/22 was positive for Staphylococcus aureus. He was treated with Augmentin. He has has completed ten applications of Theraskin which did help decrease his ulcer size. 02/25/22-Unroofed the undermining from 9-3 o'clock to make wound care easier. Wound care - He has had 10 applications of Theraskin. Since he has had an operative debridement, he has had 10 applications of Epifix which he completed 04/08/22. Wound care will be moistened Garima topped with adaptic and covered with gauze daily after washing with soap and water. He is wearing a stump assistant floor covering printer for compression. Today he denies any fever. He states his appetite is good. Progress of Wound: Left stump ulcer is stable. Objective Data Objective Data Vital Signs: Vital Signs Temp Pulse Resp BP O2 Del Method 97.6 F L 52 L 18 164/88 H Room Air 11/18/22 09:03 11/18/22 09:03 11/18/22 09:03 11/18/22 09:03 11/04/22 14:15 Oxygen Delivery Method Room Air Charges/Coding Procedures Integumentary 111xxx-113xx: [id number] Ria musc/fascia 20 sq cm/< Debridement Note Debridement Note Wound debrided: #3 Left BKA stump. Laterality: Left Wound Grade/Stage: 4. Type of Debridement: Excisional debridement Anesthesia Used: 4% Lidocaine Solution Depth: Down to and including healthy tissue, in the subcutaneous layer, to muscle and to bone (bone is palpable but not exposed and not debrided.) Percentage of wound debrided: 100 Instrument Used: 3mm curette Tissue Removed: subcutaneous tissue and muscle. Severity: Fat Layer Exposed (muscle is exposed. ) Amount of bleeding with debridement: Mild Bleeding Controlled with: Pressure and Compression and gauze Patient tolerated procedure: Patient tolerated procedure well Post-Debridement Measurements and Additional Note: Post-Debridement Measurements/Treatment - Nurse 1 - General Ulcer Assessment Start: 11/04/22 14:15 Freq: Status: Active Protocol: ARLETH Activity Type Activity Date Activity User E-sign Co-sign Detail Recorded Client Recorded Date Recorded By Document 11/04/22 14:15 [facility] [id number] 11/04/22 14:16 [facility] Document 11/18/22 09:03 PL [id number] 11/18/22 09:04 PL 11/04/22 11/18/22 14:15 09:03 - Today's Visit Information Type of service Follow-up Visit Follow-up Visit (Physician/GRINDING AND SPRAYING SUPERVISOR (Physician/GRINDING AND SPRAYING SUPERVISOR ) ) Arrival Mode Wheelchair Wheelchair Transfer Assistance None None Patient Identification Verified (Name & Yes Yes ) Patient Requires Transmission-Based No No Precautions Finger Stick Blood Sugar(mg/dl) (if 101 indicated): Blood Sugar Stated by Patient Vital Signs Temperature (97.8 F-99.1 F) 96.8 F L 97.6 F L Temperature Source Temporal Temporal Pulse Rate (60-100) 67 52 L Pulse Location Monitor Respiratory Rate (12-18) 16 18 Respiratory rate source Observation Oxygen Delivery Method Room Air Blood Pressure (90/60-120/80) 128/68 H 164/88 H Blood Pressure Mean (mm Hg) 88 113 Source Monitor Position Sitting Blood Pressure Location Left Arm History Since Last Visit- (Skip if this is Patient's initial visit) Have you changed medications since your No No last visit? Any new allergies or adverse reactions No No Had a fall/change in ADL's that may No No increase risk of falls Signs or symptoms of abuse and/or No No neglect since last visit Have you been in the hospital since your No No last visit? Has dressing in place as prescribed Yes Yes Has compression in place as prescribed N/A N/A Has offloadiing in place as prescribed N/A N/A Experienced any changes in pain level or No No management Pain Scale: 0-10 Numeric Is Patient Pain Free? Yes Yes WC - Nurse 1 - General Ulcer Measurement Start: 11/04/22 14:15 Freq: Status: Active Protocol: Activity Type Activity Date Activity User E-sign Co-sign Detail Recorded Client Recorded Date Recorded By Document 11/04/22 14:15 [facility] [id number] 11/04/22 14:16 [facility] 11/04/22 14:15 Wound Center Nurse 1 #3 L Stump/Post op -Combined with other wound No -Current Size (cm) - Length 1.1 -Current Size (cm) - Width 1.2 -Current Size (cm) - Depth 0.2 -Total Square Cm 1.32 -Photo Taken No -Epithelialization None Present -Tunneling No -Undermining/Tunneling No -Circular Undermining No -Exudate Amt Medium -Exudate Type Serosanguineous -Wound Margin Distinct, Outline Attached -Granulation Amt Large (67-100%) -Granulation Quality [place] -Slough/Fibrin Yes -Necrosis Amt Small (1-33%) -Necrotic Tissue Type Adherent Slough -Texture (Yudy-wound Skin Appearance) Assessed, Scarring -Moisture (Yudy-wound Skin Appearance) Assessed -Color (Yudy-wound Skin Appearance) Assessed -Temperature (Yudy-wound Skin No Abnormality Appearance) (Pt Warm) -Tenderness on Palpation (Yudy-wound No Skin Appearance) -Ulcer Cleansing Rinsed/ Irrigated with Saline -Foul Odor after Cleansing No -Anesthetic Used 5% Lidocaine Gel FREDI - Nurse 2 - General Ulcer CM Notes Start: 11/04/22 14:15 Freq: Status: Active Protocol: Activity Type Activity Date Activity User E-sign Co-sign Detail Recorded Client Recorded Date Recorded By Document 11/04/22 14:20 [id number] 11/04/22 14:22 Document 11/18/22 09:15 [id number] 11/18/22 09:17 11/04/22 11/18/22 14:20 09:15 Wound Center Nurse 2 #3 L Stump/Post op -Time 14:21 09:16 -Correct Patient Yes Yes -Correct Side, Site, Position Yes Yes -Correct Procedure Yes Yes -Procedure Performed Yes Yes -Type of Procedure Debridement Debridement -Clinical Debridement Muscle / Fascia Muscle / Fascia -Tissue Removed Muscle,Fascia Muscle -Post Debridement (cm) - Length 1.3 1.2 -Post Debridement (cm) - Width 1.7 1.7 -Post Debridement (cm) - Depth 0.2 0.2 -Total Square (Post) (cm) 2.21 2.04 -Area of Debridement (cm) - Length 1.3 1.2 -Area of Debridement (cm) - Width 1.7 1.7 -Total Square (Area) (cm) 2.21 2.04 -Tunneling No No -Undermining/Tunneling No -Circular Undermining No No -Wound/Ulcer Outcome Not Healed Not Healed -Ulcer Cleansing Rinsed/ Rinsed/ Irrigated with Irrigated with Saline Saline -Foul Odor after Cleansing No No -Bioengineered Tissue No No -Bleeding Controlled with Pressure Pressure -Treatment Response Procedure Procedure Tolerated Well Tolerated Well -Offloading No No -Assistive Device(s) Wheelchair Wheelchair -Debridement - Muscle / Fascia, 1st Yes Yes 20sq cm Pain Scale: 0-10 Numeric Is Patient Pain Free? Yes Yes FREDI - Nurse 3 - General Ulcer D/C NN Start: 11/04/22 14:15 Freq: Status: Active Protocol: Activity Type Activity Date Activity User E-sign Co-sign Detail Recorded Client Recorded Date Recorded By Document 11/04/22 14:28 [facility] [id number] 11/04/22 14:28 Document 11/18/22 09:20 [facility] [id number] 11/18/22 09:21 11/04/22 11/18/22 14:28 09:20 Wound Care Center Nurse 3 #3 L Stump/Post op -Ulcer Cleansing Rinsed/ Rinsed/ Irrigated with Irrigated with Saline Saline -Foul Odor after Cleansing No -Negative Pressure Wound Therapy Discontinue -Primary Dressing Applied Promogran Promogran Garima Matter Garima Matter -Primary Dressing Covered/Secured with Dry Gauze, Dry Gauze, Secured with Secured with Tape Tape -Promogran Garima Matter 1 1 Pain Scale: 0-10 Numeric Is Patient Pain Free? Yes Yes WC - Visit Discharge Discharge Condition Stable Stable Ambulatory Status Wheelchair Wheelchair Transportation Private Auto Private Auto Medication Reconcilliation completed & Yes Yes provided to patient/care provider Clinical Summary of Care Provided Yes Yes 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 without evidence of necrosis (2) Pain of amputation stump of left lower extremity: CODE(S): T87.89 - Other complications of amputation stump; M79.605 - Pain in left leg (3) Personal history of Methicillin resistant Staphylococcus aureus infection: CODE(S): Z86.14 - Personal history of Methicillin resistant Staphylococcus aureus infection (4) Diabetes: CODE(S): E11.9 - Type 2 diabetes mellitus without complications (5) History of below-knee amputation of left lower extremity: CODE(S): Z89.512 - Acquired absence of left leg below knee (6) Smoker: CODE(S): F17.200 - Nicotine dependence, unspecified, uncomplicated PLAN: Plan Wound care - Continue Garima covered with gauze daily to left BKA stump ulcer. He has completed 10 applications of Epi-fix. Compression - AMIE wrap or non-silicone stump assistant floor covering printer. He has stopped wearing his silicone stump assistant floor covering printer because it may have been causing maceration to the yudy wound. He states he is not wearing his prosthesis. Pathology from 6/1/23 was negative for acute osteomyelitis. A wound culture from 06/24/22 was positive for Staphylococcus aureus and he was treated with Augmentin and has finished them. Follow up in 2 weeks. Encouraged patient to stop smoking as it may have deleterious effects on wound healing. From Dr. Plata's previous note: Discussed with the patient that an operative debridement is necessary since scar tissue over the bone inferiorly is not sustainable in a prosthesis. Coverage over the bone with soft tissue from an advancement flap would provide a cushion for the prosthesis. The surrounding tissue and posterior myocutaneous flap, after debridement of scar tissue, may be able to cover the bone. This is the ideal situation. May have to shorten the bone a little bit in order to make this happen. I will be conservative with the bone excision because if the stump ends up being too short, it would be problematic with fitting of the prosthesis. In that scenario, revision to an AKA would be necessary and then proceed with therapy with an AKA prosthesis. Patient voices understanding. Right now the length of the tibial from the tibial tubercle is 11 cm. The range is 10-12 cm. So I can shorten the bone 1 cm and still be in range to allow closure with minimal tension. Surgery would be done under general anesthesia with a surgical observation overnight stay in the hospital. Patient was informed of the risks and complications of the procedure including alternatives to surgery. These were discussed with the patient personally. Patient voices understanding and initially wished to proceed. Initially he wanted to hold off on the surgery. Now he has changed his mind and wants to proceed with the surgery. At the time of surgery, he will need a Prealbumin checked. His last one in the chart was 9.9 on 11/07/20. Would like to see his nutritional status maximized before proceeding with secondary wound closure with a posterior myocutaneous advancement flap. He also needs a HgbA1c. For the elective procedure involving a posterior myocutaneous advancement flap, the HgbA1c needs to be less than 8. Prior before surgery, more wound cultures are necessary. A positive culture will necessitate antibiotic therapy.
== END 2022-11-21 23:59 | disposition home or self-care (01) ==
LOC: WC 09:00
PROVIDERS: PCP Family Medicine; Referring Provider Family Medicine; Visit Provider Surgery
DX: T87.89 Other complications of amputation stump (principal); E11.622 Type 2 diabetes mellitus with other skin ulcer; Z89.512 Acquired absence of left leg below knee; L98.492 Non-pressure chronic ulcer of skin of other sites with fat layer exposed; Y83.5 Amputation of limb(s) as the cause of abnormal reaction of the patient, or of later complication, without mention of misadventure at the time of the procedure; F17.200 Nicotine dependence, unspecified, uncomplicated; L90.5 Scar conditions and fibrosis of skin; Z86.14 Personal history of Methicillin resistant Staphylococcus aureus infection
CPT/HCPCS: 11043

== ENCOUNTER 2022-12-02 09:19 | Outpatient (RCR) | payer MEDICARE, MEDICAID, SELFPAY ==
[2022-11-22 00:36] VITALS: BP 164/88; PULSE 52; RESP 18; TEMP 36.4
[2022-12-02 09:33] VITALS: BP 138/78; PULSE 63; RESP 18; TEMP 36.2
--- NOTE | 2022-12-02 10:15 | PCM.WC.PN ---
History of Present Illness Date of Service: 12/02/22 Chief Complaint: Ulcer on left BKA after I&D of a diabetic abscess/hematoma on 11/06/20 History of Wound: Surgery on 11/06/20 - Surgical preparation left below knee amputation stump with incision and drainage and excisional debridement with partial ostectomy tibia for osteomyelitis and evacuation hematoma for draining diabetic ulcer abscess. (He had his Left BKA on 04/17/20). Operative tissue and bone cultures were negative. Wound cultures from 11/02/20 positive for MSSA, Enterobacter cloacae complex, and Corynebacterium amycolatum. At his last visit on 08/22/22 bony debridement was done to the stump because there was some bone exposed. Pathology was negative for acute osteomyelitis. Prealbumin 9.9 on 11/07/20. He was evaluated by Dr. Boston on 12/06/21 for an operative debridement and possible osteomyelitis. Surgery with Dr. Boston on 12/25/21 for Debridement left lower extremity amputation stump skin, subcutaneous tissue, fascia, bone. Bone culture 12/25/21 - Staphylococcus aureus. Pathology of bone showed dense fibroconnective tissue with reactive changes and foreign body giant cell reaction. Pieces of bone with reactive changes. Wound culture from 09/17/21 showed no growth. Wound culture from 07/09/21 positive for Staphylococcus aureus and Streptococcus agalactiae (B). He was started on Augmentin and a Probiotic. Xray obtained on 10/01/21 of his left BKA stump because of his non healing ulcer. The xray showed bony abnormalities along the lateral aspect of the amputation site of the proximal tibia. Consider further evaluation to exclude osteomyelitis. He obtained this xray at [facility]. MRI obtained 10/31/21, at [facility], of his left BKA which showed Bone edema with contrast enhancement of the tibia consistent with osteomyelitis. Small fluid collection at the distal aspect of the amputated tibia suggestive of small abscess. Wound culture from 06/24/22 was positive for Staphylococcus aureus. He was treated with Augmentin. He has has completed ten applications of Theraskin which did help decrease his ulcer size. 02/25/22-Unroofed the undermining from 9-3 o'clock to make wound care easier. Wound care - He has had 10 applications of Theraskin. Since he has had an operative debridement, he has had 10 applications of Epifix which he completed 04/08/22. Wound care will be moistened Garima topped with adaptic and covered with gauze daily after washing with soap and water. He is wearing a stump upholstery cutter for compression. Today he denies any fever. He states his appetite is good. Progress of Wound: Left stump ulcer is smaller. He states that he bumped his stump a couple days ago and he had a gush of fluid from above the ulcer and since then his pain has gone away. No sign of trauma. Objective Data Objective Data Vital Signs: Vital Signs Temp Pulse Resp BP 97.2 F L 63 18 138/78 H 12/02/22 09:33 12/02/22 09:33 12/02/22 09:33 12/02/22 09:33 Charges/Coding Procedures Integumentary 111xxx-113xx: 20050 Ria musc/fascia 20 sq cm/< Debridement Note Debridement Note Wound debrided: #3 Left BKA stump. Laterality: Left Wound Grade/Stage: 4. Type of Debridement: Excisional debridement Anesthesia Used: 4% Lidocaine Solution Depth: Down to and including healthy tissue, in the subcutaneous layer, to muscle and to bone (bone is palpable but not exposed and not debrided.) Percentage of wound debrided: 100 Instrument Used: 3mm curette Tissue Removed: subcutaneous tissue and muscle. Severity: Fat Layer Exposed (muscle is exposed. ) Amount of bleeding with debridement: Mild Bleeding Controlled with: Pressure and Compression and gauze Patient tolerated procedure: Patient tolerated procedure well Post-Debridement Measurements and Additional Note: Post-Debridement Measurements/Treatment - Nurse 1 - General Ulcer Assessment Start: 12/02/22 09:32 Freq: Status: Active Protocol: FREDI.LOWKEYAT Activity Type Activity Date Activity User E-sign Co-sign Detail Recorded Client Recorded Date Recorded By Document 12/02/22 09:33 DL [id number] 12/02/22 09:35 DL 12/02/22 09:33 - Today's Visit Information Type of service Follow-up Visit (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/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[employer]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 ) Arrival Mode Wheelchair Transfer Assistance None Patient Identification Verified (Name & Yes ) Patient Requires Transmission-Based No Precautions Finger Stick Blood Sugar(mg/dl) (if 102 indicated): Blood Sugar Stated by Patient Vital Signs Temperature (97.8 F-99.1 F) 97.2 F L Temperature Source Temporal Pulse Rate (60-100) 63 Pulse Location Monitor Respiratory Rate (12-18) 18 Respiratory rate source Observation Blood Pressure (90/60-120/80) 138/78 H Blood Pressure Mean (mm Hg) 98 Source Monitor History Since Last Visit- (Skip if this is Patient's initial visit) Have you changed medications since your No last visit? Any new allergies or adverse reactions No Had a fall/change in ADL's that may No increase risk of falls Signs or symptoms of abuse and/or No neglect since last visit Have you been in the hospital since your No last visit? Has dressing in place as prescribed Yes Has compression in place as prescribed N/A Experienced any changes in pain level or No management Pain Scale: 0-10 Numeric Is Patient Pain Free? Yes WC - Nurse 1 - General Ulcer Measurement Start: 12/02/22 09:32 Freq: Status: Active Protocol: Activity Type Activity Date Activity User E-sign Co-sign Detail Recorded Client Recorded Date Recorded By Document 12/02/22 09:33 DL [id number] 12/02/22 09:35 DL 12/02/22 09:33 Wound Center Nurse 1 #3 L Stump/Post op -Current Size (cm) - Length 0.8 -Current Size (cm) - Width 1.1 -Current Size (cm) - Depth 0.1 -Total Square Cm 0.88 -Exudate Amt Small -Wound Margin Thickened -Granulation Amt Small (1-33%) -Granulation Quality Naomi -Necrosis Amt Small (1-33%) -Necrotic Tissue Type Adherent Slough -Structure Exposed N/A -Texture (Yudy-wound Skin Appearance) Scarring -Moisture (Yudy-wound Skin Appearance) No Abnormality -Color (Yudy-wound Skin Appearance) No Abnormality -Temperature (Yudy-wound Skin No Abnormality Appearance) (Pt Warm) -Tenderness on Palpation (Yudy-wound No Skin Appearance) -Ulcer Cleansing Soap and Water -Foul Odor after Cleansing No -Anesthetic Used 5% Lidocaine Gel WC - Nurse 2 - General Ulcer CM Notes Start: 12/02/22 09:32 Freq: Status: Active Protocol: Activity Type Activity Date Activity User E-sign Co-sign Detail Recorded Client Recorded Date Recorded By Document 12/02/22 09:45 [id number] 12/02/22 09:48 12/02/22 09:45 Wound Center Nurse 2 -Time 09:46 -Correct Patient Yes -Correct Side, Site, Position Yes -Correct Procedure Yes -Procedure Performed Yes -Type of Procedure Debridement -Clinical Debridement Muscle / Fascia -Tissue Removed Muscle -Post Debridement (cm) - Length 1.1 -Post Debridement (cm) - Width 1.2 -Post Debridement (cm) - Depth 0.2 -Total Square (Post) (cm) 1.32 -Area of Debridement (cm) - Length 1.1 -Area of Debridement (cm) - Width 1.2 -Total Square (Area) (cm) 1.32 -Tunneling No -Undermining/Tunneling No -Circular Undermining No -Wound/Ulcer Outcome Not Healed -Ulcer Cleansing Rinsed/ Irrigated with Saline -Foul Odor after Cleansing No -Bioengineered Tissue No -Bleeding Controlled with Pressure -Treatment Response Procedure Tolerated Well -Offloading No -Debridement - Muscle / Fascia, 1st Yes 20sq cm Pain Scale: 0-10 Numeric Is Patient Pain Free? Yes - Nurse 3 - General Ulcer D/C NN Start: 12/02/22 09:32 Freq: Status: Active Protocol: Activity Type Activity Date Activity User E-sign Co-sign Detail Recorded Client Recorded Date Recorded By Document 12/02/22 10:02 KUN [id number] 12/02/22 10:02 KUN 12/02/22 10:02 Wound Care Center Nurse 3 #3 L Stump/Post op -Ulcer Cleansing Rinsed/ Irrigated with Saline -Primary Dressing Applied Promogran Garima Matter -Primary Dressing Covered/Secured with Dry Gauze, Secured with Tape -Promogran Garima Matter 1 Pain Scale: 0-10 Numeric Is Patient Pain Free? 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 without evidence of necrosis (2) Pain of amputation stump of left lower extremity: CODE(S): T87.89 - Other complications of amputation stump; M79.605 - Pain in left leg (3) Personal history of Methicillin resistant Staphylococcus aureus infection: CODE(S): Z86.14 - Personal history of Methicillin resistant Staphylococcus aureus infection (4) Diabetes: CODE(S): E11.9 - Type 2 diabetes mellitus without complications (5) History of below-knee amputation of left lower extremity: CODE(S): Z89.512 - Acquired absence of left leg below knee (6) Smoker: CODE(S): F17.200 - Nicotine dependence, unspecified, uncomplicated PLAN: Plan Wound care - Continue Garima covered with gauze daily to left BKA stump ulcer. He has completed 10 applications of Epi-fix. Compression - AMIE wrap or non-silicone stump upholstery cutter. He has stopped wearing his silicone stump upholstery cutter because it may have been causing maceration to the yudy wound. He states he is not wearing his prosthesis. Pathology from 08/22/22 was negative for acute osteomyelitis. A wound culture from 06/24/22 was positive for Staphylococcus aureus and he was treated with Augmentin and has finished them. Follow up in 2 weeks. Encouraged patient to stop smoking as it may have deleterious effects on wound healing. From Dr. Plata's previous note: Discussed with the patient that an operative debridement is necessary since scar tissue over the bone inferiorly is not sustainable in a prosthesis. Coverage over the bone with soft tissue from an advancement flap would provide a cushion for the prosthesis. The surrounding tissue and posterior myocutaneous flap, after debridement of scar tissue, may be able to cover the bone. This is the ideal situation. May have to shorten the bone a little bit in order to make this happen. I will be conservative with the bone excision because if the stump ends up being too short, it would be problematic with fitting of the prosthesis. In that scenario, revision to an AKA would be necessary and then proceed with therapy with an AKA prosthesis. Patient voices understanding. Right now the length of the tibial from the tibial tubercle is 11 cm. The range is 10-12 cm. So I can shorten the bone 1 cm and still be in range to allow closure with minimal tension. Surgery would be done under general anesthesia with a surgical observation overnight stay in the hospital. Patient was informed of the risks and complications of the procedure including alternatives to surgery. These were discussed with the patient personally. Patient voices understanding and initially wished to proceed. Initially he wanted to hold off on the surgery. Now he has changed his mind and wants to proceed with the surgery. At the time of surgery, he will need a Prealbumin checked. His last one in the chart was 9.9 on 11/07/20. Would like to see his nutritional status maximized before proceeding with secondary wound closure with a posterior myocutaneous advancement flap. He also needs a HgbA1c. For the elective procedure involving a posterior myocutaneous advancement flap, the HgbA1c needs to be less than 8. Prior before surgery, more wound cultures are necessary. A positive culture will necessitate antibiotic therapy.
== END 2022-12-21 23:59 | disposition home or self-care (01) ==
LOC: WC 09:19
PROVIDERS: PCP Family Medicine; Referring Provider Family Medicine; Visit Provider Nurse Practitioner Family
DX: T87.89 Other complications of amputation stump (principal); E11.622 Type 2 diabetes mellitus with other skin ulcer; Z89.512 Acquired absence of left leg below knee; L98.492 Non-pressure chronic ulcer of skin of other sites with fat layer exposed; Y83.5 Amputation of limb(s) as the cause of abnormal reaction of the patient, or of later complication, without mention of misadventure at the time of the procedure; F17.200 Nicotine dependence, unspecified, uncomplicated; L90.5 Scar conditions and fibrosis of skin; Z86.14 Personal history of Methicillin resistant Staphylococcus aureus infection
CPT/HCPCS: 11043

== ENCOUNTER 2023-01-20 09:00 | Outpatient (RCR) | payer MEDICARE, MEDICAID, SELFPAY ==
[2022-12-22 00:22] VITALS: BP 138/78; PULSE 63; RESP 18; TEMP 36.2
[2022-12-23 09:25] VITALS: BP 136/80; PULSE 63; RESP 18; TEMP 36.4
--- NOTE | 2022-12-23 09:47 | PCM.WC.PN ---
History of Present Illness Date of Service: 12/23/22 Chief Complaint: Ulcer on left BKA after I&D of a diabetic abscess/hematoma on 11/06/20 History of Wound: Surgery on 11/06/20 - Surgical preparation left below knee amputation stump with incision and drainage and excisional debridement with partial ostectomy tibia for osteomyelitis and evacuation hematoma for draining diabetic ulcer abscess. (He had his Left BKA on 04/17/20). Operative tissue and bone cultures were negative. Wound cultures from 11/02/20 positive for MSSA, Enterobacter cloacae complex, and Corynebacterium amycolatum. At his last visit on 08/22/22 bony debridement was done to the stump because there was some bone exposed. Pathology was negative for acute osteomyelitis. Prealbumin 9.9 on 11/07/20. He was evaluated by Dr. Boston on 12/06/21 for an operative debridement and possible osteomyelitis. Surgery with Dr. Boston on 12/25/21 for Debridement left lower extremity amputation stump skin, subcutaneous tissue, fascia, bone. Bone culture 12/25/21 - Staphylococcus aureus. Pathology of bone showed dense fibroconnective tissue with reactive changes and foreign body giant cell reaction. Pieces of bone with reactive changes. Wound culture from 09/17/21 showed no growth. Wound culture from 07/09/21 positive for Staphylococcus aureus and Streptococcus agalactiae (B). He was started on Augmentin and a Probiotic. Xray obtained on 10/01/21 of his left BKA stump because of his non healing ulcer. The xray showed bony abnormalities along the lateral aspect of the amputation site of the proximal tibia. Consider further evaluation to exclude osteomyelitis. He obtained this xray at [facility]. MRI obtained 10/31/21, at [facility], of his left BKA which showed Bone edema with contrast enhancement of the tibia consistent with osteomyelitis. Small fluid collection at the distal aspect of the amputated tibia suggestive of small abscess. Wound culture from 06/24/22 was positive for Staphylococcus aureus. He was treated with Augmentin. He has has completed ten applications of Theraskin which did help decrease his ulcer size. 02/25/22-Unroofed the undermining from 9-3 o'clock to make wound care easier. Wound care - He has had 10 applications of Theraskin. Since he has had an operative debridement, he has had 10 applications of Epifix which he completed 04/08/22. Wound care will be moistened Garima topped with adaptic and covered with gauze daily after washing with soap and water. He is wearing a stump closed circuit screen watcher for compression. Today he denies any fever. He states his appetite is good. Progress of Wound: Left stump ulcer is smaller, wound bed beefy pink. Objective Data Objective Data Vital Signs: Vital Signs Temp Pulse Resp BP 97.6 F L 63 18 136/80 H 12/23/22 09:25 12/23/22 09:25 12/23/22 09:25 12/23/22 09:25 Charges/Coding Procedures Integumentary 111xxx-113xx: 35367 Ria musc/fascia 20 sq cm/< Debridement Note Debridement Note Wound debrided: #3 Left BKA stump. Laterality: Left Wound Grade/Stage: 4. Type of Debridement: Excisional debridement Anesthesia Used: 4% Lidocaine Solution Depth: Down to and including healthy tissue, in the subcutaneous layer, to muscle and to bone (bone is palpable but not exposed and not debrided.) Percentage of wound debrided: 100 Instrument Used: 3mm curette Tissue Removed: subcutaneous tissue and muscle. Severity: Fat Layer Exposed (muscle is exposed. ) Amount of bleeding with debridement: Mild Bleeding Controlled with: Pressure and Compression and gauze Patient tolerated procedure: Patient tolerated procedure well Post-Debridement Measurements and Additional Note: Post-Debridement Measurements/Treatment - Nurse 1 - General Ulcer Assessment Start: 12/23/22 09:25 Freq: Status: Active Protocol: ARLETH Activity Type Activity Date Activity User E-sign Co-sign Detail Recorded Client Recorded Date Recorded By Document 12/23/22 09:25 PL Tablet 12/23/22 09:29 PL 12/23/22 09:25 - Today's Visit Information Type of service Follow-up Visit (Physician/TYPIST ) Arrival Mode Wheelchair Transfer Assistance None Patient Identification Verified (Name & Yes ) Patient Requires Transmission-Based No Precautions Finger Stick Blood Sugar(mg/dl) (if 108 indicated): Blood Sugar Stated by Patient Vital Signs Temperature (97.8 F-99.1 F) 97.6 F L Temperature Source Temporal Pulse Rate (60-100) 63 Respiratory Rate (12-18) 18 Blood Pressure (90/60-120/80) 136/80 H Blood Pressure Mean (mm Hg) 98 History Since Last Visit- (Skip if this is Patient's initial visit) Have you changed medications since your No last visit? Any new allergies or adverse reactions No Had a fall/change in ADL's that may No increase risk of falls Signs or symptoms of abuse and/or No neglect since last visit Have you been in the hospital since your No last visit? Has dressing in place as prescribed Yes Has compression in place as prescribed Yes Has offloadiing in place as prescribed N/A Experienced any changes in pain level or No management Pain Scale: 0-10 Numeric Is Patient Pain Free? Yes FREDI - Nurse 2 - General Ulcer CM Notes Start: 12/23/22 09:25 Freq: Status: Active Protocol: Activity Type Activity Date Activity User E-sign Co-sign Detail Recorded Client Recorded Date Recorded By Document 12/23/22 09:38 Laptop 12/23/22 09:40 12/23/22 09:38 Wound Center Nurse 2 #3 L Stump/Post op -Time 09:38 -Correct Patient Yes -Correct Side, Site, Position Yes -Correct Procedure Yes -Procedure Performed Yes -Type of Procedure Debridement -Clinical Debridement Muscle / Fascia -Tissue Removed Muscle -Post Debridement (cm) - Length 0.7 -Post Debridement (cm) - Width 1.3 -Post Debridement (cm) - Depth 0.2 -Total Square (Post) (cm) 0.91 -Area of Debridement (cm) - Length 0.7 -Area of Debridement (cm) - Width 1.3 -Total Square (Area) (cm) 0.91 -Tunneling No -Undermining/Tunneling No -Circular Undermining No -Wound/Ulcer Outcome Not Healed -Ulcer Cleansing Rinsed/ Irrigated with Saline -Foul Odor after Cleansing No -Bioengineered Tissue No -Bleeding Controlled with Pressure -Treatment Response Procedure Tolerated Well -Offloading No -Assistive Device(s) Wheelchair -Debridement - Muscle / Fascia, 1st Yes 20sq cm Pain Scale: 0-10 Numeric Is Patient Pain Free? Yes FREDI - Nurse 3 - General Ulcer D/C NN Start: 12/23/22 09:25 Freq: Status: Active Protocol: Activity Type Activity Date Activity User E-sign Co-sign Detail Recorded Client Recorded Date Recorded By Document 12/23/22 09:43 Laptop 10/02/23 09:43 12/23/22 09:43 Wound Care Center Nurse 3 #3 L Stump/Post op -Ulcer Cleansing Rinsed/ Irrigated with Saline -Foul Odor after Cleansing No -Primary Dressing Applied Mepilex Border, Promogran Garima Matter -Mepilex Border 1 -Promogran Garima Matter 1 Pain Scale: 0-10 Numeric Is Patient Pain Free? 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 without evidence of necrosis (2) Pain of amputation stump of left lower extremity: CODE(S): T87.89 - Other complications of amputation stump; M79.605 - Pain in left leg (3) Personal history of Methicillin resistant Staphylococcus aureus infection: CODE(S): Z86.14 - Personal history of Methicillin resistant Staphylococcus aureus infection (4) Diabetes: CODE(S): E11.9 - Type 2 diabetes mellitus without complications (5) History of below-knee amputation of left lower extremity: CODE(S): Z89.512 - Acquired absence of left leg below knee (6) Smoker: CODE(S): F17.200 - Nicotine dependence, unspecified, uncomplicated PLAN: Plan Wound care - Continue moistened Garima covered with gauze daily to left BKA stump ulcer. He has completed 10 applications of Epi-fix. Compression - AMIE wrap or non-silicone stump closed circuit screen watcher. He has stopped wearing his silicone stump closed circuit screen watcher because it may have been causing maceration to the daya wound. He states he is not wearing his prosthesis. Pathology from 08/22/22 was negative for acute osteomyelitis. A wound culture from 06/24/22 was positive for Staphylococcus aureus and he was treated with Augmentin and has finished them. Follow up in 2 weeks. Encouraged patient to stop smoking as it may have deleterious effects on wound healing. From Dr. Plata's previous note: Discussed with the patient that an operative debridement is necessary since scar tissue over the bone inferiorly is not sustainable in a prosthesis. Coverage over the bone with soft tissue from an advancement flap would provide a cushion for the prosthesis. The surrounding tissue and posterior myocutaneous flap, after debridement of scar tissue, may be able to cover the bone. This is the ideal situation. May have to shorten the bone a little bit in order to make this happen. I will be conservative with the bone excision because if the stump ends up being too short, it would be problematic with fitting of the prosthesis. In that scenario, revision to an AKA would be necessary and then proceed with therapy with an AKA prosthesis. Patient voices understanding. Right now the length of the tibial from the tibial tubercle is 11 cm. The range is 10-12 cm. So I can shorten the bone 1 cm and still be in range to allow closure with minimal tension. Surgery would be done under general anesthesia with a surgical observation overnight stay in the hospital. Patient was informed of the risks and complications of the procedure including alternatives to surgery. These were discussed with the patient personally. Patient voices understanding and initially wished to proceed. Initially he wanted to hold off on the surgery. Now he has changed his mind and wants to proceed with the surgery. At the time of surgery, he will need a Prealbumin checked. His last one in the chart was 9.9 on 11/07/20. Would like to see his nutritional status maximized before proceeding with secondary wound closure with a posterior myocutaneous advancement flap. He also needs a HgbA1c. For the elective procedure involving a posterior myocutaneous advancement flap, the HgbA1c needs to be less than 8. Prior before surgery, more wound cultures are necessary. A positive culture will necessitate antibiotic therapy.
[2023-01-06 09:08] VITALS: BP 148/70; PULSE 59; RESP 18; TEMP 36.3
--- NOTE | 2023-01-06 09:37 | PN.PCM_ITS ---
History of Present Illness Date of Service: 01/06/23 Chief Complaint: Ulcer on left BKA after I&D of a diabetic abscess/hematoma on 11/06/20 History of Wound: Surgery on 11/06/20 - Surgical preparation left below knee amputation stump with incision and drainage and excisional debridement with partial ostectomy tibia for osteomyelitis and evacuation hematoma for draining diabetic ulcer abscess. (He had his Left BKA on 04/17/20). Operative tissue and bone cultures were negative. Wound cultures from 11/02/20 positive for MSSA, Enterobacter cloacae complex, and Corynebacterium amycolatum. At his last visit on 08/22/22 bony debridement was done to the stump because there was some bone exposed. Pathology was negative for acute osteomyelitis. Prealbumin 9.9 on 11/07/20. He was evaluated by Dr. Boston on 12/06/21 for an operative debridement and possible osteomyelitis. Surgery with Dr. Boston on 12/25/21 for Debridement left lower extremity amputation stump skin, subcutaneous tissue, fascia, bone. Bone culture 12/25/21 - Staphylococcus aureus. Pathology of bone showed dense fibroconnective tissue with reactive changes and foreign body giant cell reaction. Pieces of bone with reactive changes. Wound culture from 09/17/21 showed no growth. Wound culture from 07/09/21 positive for Staphylococcus aureus and Streptococcus agalactiae (B). He was started on Augmentin and a Probiotic. Xray obtained on 10/01/21 of his left BKA stump because of his non healing ulcer. The xray showed bony abnormalities along the lateral aspect of the amputation site of the proximal tibia. Consider further evaluation to exclude osteomyelitis. He obtained this xray at [facility]. MRI obtained 10/31/21, at [facility], of his left BKA which showed Bone edema with contrast enhancement of the tibia consistent with osteomyelitis. Small fluid collection at the distal aspect of the amputated tibia suggestive of small abscess. Wound culture from 06/24/22 was positive for Staphylococcus aureus. He was treated with Augmentin. He has has completed ten applications of Theraskin which did help decrease his ulcer size. 02/25/22-Unroofed the undermining from 9-3 o'clock to make wound care easier. Wound care - He has had 10 applications of Theraskin. Since he has had an operative debridement, he has had 10 applications of Epifix which he completed 04/08/22. Wound care will be moistened Garima topped with adaptic and covered with gauze daily after washing with soap and water. He is wearing a stump food service representative for compression. Today he denies any fever. He states his appetite is good. Progress of Wound: Left stump ulcer is stable, it is changing shape, wound bed beefy pink. Yudy wound erythematous, dry and scabby. Patient states that he thinks he over scrubbed it with a new scrubby trying to get the dry, flaky skin off. Objective Data Objective Data Vital Signs: Vital Signs Temp Pulse Resp BP 97.3 F L 59 L 18 148/70 H 01/06/23 09:08 01/06/23 09:08 01/06/23 09:08 01/06/23 09:08 Charges/Coding Procedures Integumentary [id number]: [id number] Ria musc/fascia 20 sq cm/< Debridement Note Debridement Note Wound debrided: #3 Left BKA stump. Laterality: Left Wound Grade/Stage: 4. Type of Debridement: Excisional debridement Anesthesia Used: 4% Lidocaine Solution Depth: Down to and including healthy tissue, in the subcutaneous layer, to muscle and to bone (bone is palpable but not exposed and not debrided.) Percentage of wound debrided: 100 Instrument Used: 3mm curette Tissue Removed: subcutaneous tissue and muscle. Severity: Fat Layer Exposed (muscle is exposed. ) Amount of bleeding with debridement: Mild Bleeding Controlled with: Pressure and Compression and gauze Patient tolerated procedure: Patient tolerated procedure well Post-Debridement Measurements and Additional Note: Post-Debridement Measurements/Treatment - Nurse 1 - General Ulcer Assessment Start: 12/23/22 09:25 Freq: Status: Active Protocol: [email or web address].GENEVA Activity Type Activity Date Activity User E-sign Co-sign Detail Recorded Client Recorded Date Recorded By Document 12/23/22 09:25 PL Tablet 12/23/22 09:29 PL Document 01/06/23 09:08 DL Desktop 01/06/23 09:10 DL 12/23/22 01/06/23 09:25 09:08 - Today's Visit Information Type of service Follow-up Visit Follow-up Visit (Physician/MOSAIC TILE MAKER (Physician/MOSAIC TILE MAKER ) ) Arrival Mode Wheelchair Wheelchair Transfer Assistance None None Patient Identification Verified (Name & Yes Yes ) Patient Requires Transmission-Based No No Precautions Safety Precautions NA Finger Stick Blood Sugar(mg/dl) (if 108 106 indicated): Blood Sugar Stated by Stated by Patient Patient Vital Signs Temperature (97.8 F-99.1 F) 97.6 F L 97.3 F L Temperature Source Temporal Temporal Pulse Rate (60-100) 63 59 L Pulse Location Monitor Respiratory Rate (12-18) 18 18 Respiratory rate source Observation Blood Pressure (90/60-120/80) 136/80 H 148/70 H Blood Pressure Mean (mm Hg) 98 96 Source Monitor History Since Last Visit- (Skip if this is Patient's initial visit) Have you changed medications since your No No last visit? Any new allergies or adverse reactions No No Had a fall/change in ADL's that may No No increase risk of falls Signs or symptoms of abuse and/or No No neglect since last visit Have you been in the hospital since your No No last visit? Has dressing in place as prescribed Yes Yes Has compression in place as prescribed Yes Yes Has offloadiing in place as prescribed N/A Yes Experienced any changes in pain level or No No management Pain Scale: 0-10 Numeric Is Patient Pain Free? Yes Yes WC - Nurse 1 - General Ulcer Measurement Start: 12/23/22 09:25 Freq: Status: Active Protocol: Activity Type Activity Date Activity User E-sign Co-sign Detail Recorded Client Recorded Date Recorded By Document 01/06/23 09:08 DL Desktop 01/06/23 09:10 DL 01/06/23 09:08 Wound Center Nurse 1 #3 L Stump/Post op -Current Size (cm) - Length 0.5 -Current Size (cm) - Width 1.2 -Current Size (cm) - Depth 0.4 -Total Square Cm 0.60 -Exudate Amt Small -Exudate Type Serosanguineous -Wound Margin Distinct, Outline Attached -Granulation Amt Small (1-33%) -Granulation Quality [place] -Necrosis Amt Small (1-33%) -Necrotic Tissue Type Adherent Slough -Texture (Yudy-wound Skin Appearance) Excoriation, Rash -Moisture (Yudy-wound Skin Appearance) Dry/Scaly -Color (Yudy-wound Skin Appearance) Erythema -Temperature (Yudy-wound Skin No Abnormality Appearance) (Pt Warm) -Tenderness on Palpation (Yudy-wound No Skin Appearance) -Ulcer Cleansing Soap and Water -Foul Odor after Cleansing No -Anesthetic Used 5% Lidocaine Gel FREDI - Nurse 2 - General Ulcer CM Notes Start: 12/23/22 09:25 Freq: Status: Active Protocol: Activity Type Activity Date Activity User E-sign Co-sign Detail Recorded Client Recorded Date Recorded By Document 12/23/22 09:38 Laptop 12/23/22 09:40 Document 01/06/23 09:25 Laptop 01/06/23 09:28 12/23/22 01/06/23 09:38 09:25 Wound Center Nurse 2 #3 L Stump/Post op -Time 09:38 09:26 -Correct Patient Yes Yes -Correct Side, Site, Position Yes Yes -Correct Procedure Yes Yes -Procedure Performed Yes Yes -Type of Procedure Debridement Debridement -Clinical Debridement Muscle / Fascia Muscle / Fascia -Tissue Removed Muscle Muscle,Fascia -Post Debridement (cm) - Length 0.7 1.2 -Post Debridement (cm) - Width 1.3 0.7 -Post Debridement (cm) - Depth 0.2 0.2 -Total Square (Post) (cm) 0.91 0.84 -Area of Debridement (cm) - Length 0.7 1.2 -Area of Debridement (cm) - Width 1.3 0.7 -Total Square (Area) (cm) 0.91 0.84 -Tunneling No No -Undermining/Tunneling No No -Circular Undermining No No -Wound/Ulcer Outcome Not Healed Not Healed -Ulcer Cleansing Rinsed/ Rinsed/ Irrigated with Irrigated with Saline Saline -Foul Odor after Cleansing No No -Bioengineered Tissue No No -Bleeding Controlled with Pressure Pressure -Treatment Response Procedure Procedure Tolerated Well Tolerated Well -Offloading No No -Assistive Device(s) Wheelchair Wheelchair -Debridement - Muscle / Fascia, 1st Yes Yes 20sq cm Pain Scale: 0-10 Numeric Is Patient Pain Free? Yes Yes FREDI - Nurse 3 - General Ulcer D/C NN Start: 12/23/22 09:25 Freq: Status: Active Protocol: Activity Type Activity Date Activity User E-sign Co-sign Detail Recorded Client Recorded Date Recorded By Document 12/23/22 09:43 Laptop 12/23/22 09:43 Document 01/06/23 09:33 Laptop 01/06/23 09:33 12/23/22 01/06/23 09:43 09:33 Wound Care Center Nurse 3 #3 L Stump/Post op -Ulcer Cleansing Rinsed/ Rinsed/ Irrigated with Irrigated with Saline Saline -Foul Odor after Cleansing No No -Primary Dressing Applied Mepilex Border, Promogran Promogran Garima Matter Garima Matter -Primary Dressing Covered/Secured with Dry Gauze, Secured with Tape -Mepilex Border 1 -Promogran Garima Matter 1 1 Pain Scale: 0-10 Numeric Is Patient Pain Free? Yes Yes WC - Visit Discharge Discharge Condition Stable Stable Ambulatory Status Wheelchair Wheelchair Transportation Private Auto Private Auto Medication Reconcilliation completed & Yes No provided to patient/care provider Clinical Summary of Care Provided Yes No Notes: Patient applied his own stump food service representative. 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 without evidence of necrosis (2) Pain of amputation stump of left lower extremity: CODE(S): T87.89 - Other complications of amputation stump; M79.605 - Pain in left leg (3) Personal history of Methicillin resistant Staphylococcus aureus infection: CODE(S): Z86.14 - Personal history of Methicillin resistant Staphylococcus aureus infection (4) Diabetes: CODE(S): E11.9 - Type 2 diabetes mellitus without complications (5) History of below-knee amputation of left lower extremity: CODE(S): Z89.512 - Acquired absence of left leg below knee (6) Smoker: CODE(S): F17.200 - Nicotine dependence, unspecified, uncomplicated PLAN: Plan Wound care - Continue moistened Garima covered with gauze daily to left BKA stump ulcer. He has completed 10 applications of Epi-fix. Place lotion or Aquaphor to periwound Compression - AMIE wrap or non-silicone stump food service representative. He has stopped wearing his silicone stump food service representative because it may have been causing maceration to the yudy wound. He states he is not wearing his prosthesis. Pathology from 08/22/22 was negative for acute osteomyelitis. A wound culture from 06/24/22 was positive for Staphylococcus aureus and he was treated with Augmentin and has finished them. Encouraged patient to stop smoking as it may have deleterious effects on wound healing. Follow up in [address] Plata's previous note: Discussed with the patient that an operative debridement is necessary since scar tissue over the bone inferiorly is not sustainable in a prosthesis. Coverage over the bone with soft tissue from an advancement flap would provide a cushion for the prosthesis. The surrounding tissue and posterior myocutaneous flap, after debridement of scar tissue, may be able to cover the bone. This is the ideal situation. May have to shorten the bone a little bit in order to make this happen. I will be conservative with the bone excision because if the stump ends up being too short, it would be problematic with fitting of the prosthesis. In that scenario, revision to an AKA would be necessary and then proceed with therapy with an AKA prosthesis. Patient voices understanding. Right now the length of the tibial from the tibial tubercle is 11 cm. The range is 10-12 cm. So I can shorten the bone 1 cm and still be in range to allow closure with minimal tension. Surgery would be done under general anesthesia with a surgical observation overnight stay in the hospital. Patient was informed of the risks and complications of the procedure including alternatives to surgery. These were discussed with the patient personally. Patient voices understanding and initially wished to proceed. Initially he wanted to hold off on the surgery. Now he has changed his mind and wants to proceed with the surgery. At the time of surgery, he will need a Prealbumin checked. His last one in the chart was 9.9 on 11/07/20. Would like to see his nutritional status maximized before proceeding with secondary wound closure with a posterior myocutaneous advancement flap. He also needs a HgbA1c. For the elective procedure involving a posterior myocutaneous advancement flap, the HgbA1c needs to be less than 8. Prior before surgery, more wound cultures are necessary. A positive culture will necessitate antibiotic therapy.
[2023-01-20 08:53] VITALS: BP 151/82; PULSE 69; RESP 16; TEMP 35.9
--- NOTE | 2023-01-20 11:37 | PCM.WC.PN ---
History of Present Illness Date of Service: 01/20/23 Chief Complaint: Ulcer on left BKA after I&D of a diabetic abscess/hematoma on 11/06/20 History of Wound: Surgery on 11/06/20 - Surgical preparation left below knee amputation stump with incision and drainage and excisional debridement with partial ostectomy tibia for osteomyelitis and evacuation hematoma for draining diabetic ulcer abscess. (He had his Left BKA on 04/17/20). Operative tissue and bone cultures were negative. Wound cultures from 11/02/20 positive for MSSA, Enterobacter cloacae complex, and Corynebacterium amycolatum. At his last visit on 08/22/22 bony debridement was done to the stump because there was some bone exposed. Pathology was negative for acute osteomyelitis. Prealbumin 9.9 on 11/07/20. He was evaluated by Dr. Boston on 12/06/21 for an operative debridement and possible osteomyelitis. Surgery with Dr. Boston on 12/25/21 for Debridement left lower extremity amputation stump skin, subcutaneous tissue, fascia, bone. Bone culture 12/25/21 - Staphylococcus aureus. Pathology of bone showed dense fibroconnective tissue with reactive changes and foreign body giant cell reaction. Pieces of bone with reactive changes. Wound culture from 09/17/21 showed no growth. Wound culture from 07/09/21 positive for Staphylococcus aureus and Streptococcus agalactiae (B). He was started on Augmentin and a Probiotic. Xray obtained on 10/01/21 of his left BKA stump because of his non healing ulcer. The xray showed bony abnormalities along the lateral aspect of the amputation site of the proximal tibia. Consider further evaluation to exclude osteomyelitis. He obtained this xray at [facility]. MRI obtained 10/31/21, at [facility], of his left BKA which showed Bone edema with contrast enhancement of the tibia consistent with osteomyelitis. Small fluid collection at the distal aspect of the amputated tibia suggestive of small abscess. Wound culture from 06/24/22 was positive for Staphylococcus aureus. He was treated with Augmentin. He has has completed ten applications of Theraskin which did help decrease his ulcer size. 02/25/22-Unroofed the undermining from 9-3 o'clock to make wound care easier. Wound care - He has had 10 applications of Theraskin. Since he has had an operative debridement, he has had 10 applications of Epifix which he completed 04/08/22. Wound care will be moistened Garima topped with adaptic and covered with gauze daily after washing with soap and water. He is wearing a stump slack cooper for compression. Today he denies any fever. He states his appetite is good. Progress of Wound: Left stump ulcer is smaller, wound bed beefy pink, there is granulation tissue present. Yudy wound is clear today. Objective Data Objective Data Vital Signs: Vital Signs Temp Pulse Resp BP O2 Del Method 96.7 F L 69 16 151/82 H Room Air 01/20/23 08:53 01/20/23 08:53 01/20/23 08:53 01/20/23 08:53 01/20/23 08:53 Oxygen Delivery Method Room Air Charges/Coding Procedures Integumentary 111xxx-113xx: [id number] Ria musc/fascia 20 sq cm/< Debridement Note Debridement Note Wound debrided: #3 Left BKA stump. Laterality: Left Wound Grade/Stage: 4 Type of Debridement: Excisional debridement Anesthesia Used: 4% Lidocaine Solution Depth: Down to and including healthy tissue, in the subcutaneous layer, to muscle and to bone (bone is palpable but not exposed and not debrided.) Percentage of wound debrided: 100 Instrument Used: 3mm curette Tissue Removed: subcutaneous tissue and muscle. Severity: Fat Layer Exposed (muscle is exposed. ) Amount of bleeding with debridement: Mild Bleeding Controlled with: Pressure and Compression and gauze Patient tolerated procedure: Patient tolerated procedure well Post-Debridement Measurements and Additional Note: Post-Debridement Measurements/Treatment - Nurse 1 - General Ulcer Assessment Start: 12/23/22 09:25 Freq: Status: Active Protocol: ARLETH Activity Type Activity Date Activity User E-sign Co-sign Detail Recorded Client Recorded Date Recorded By Document 12/23/22 09:25 PL Tablet 12/23/22 09:29 PL Document 01/06/23 09:08 DL Desktop 01/06/23 09:10 DL Document 01/20/23 08:53 BMF Desktop 01/20/23 08:58 BMF 12/23/22 01/06/23 01/20/23 09:25 09:08 08:53 - Today's Visit Information Type of service Follow-up Visit Follow-up Visit Follow-up Visit (Physician/PATIENT CONSUMER MARKETER (Physician/PATIENT CONSUMER MARKETER (Physician/PATIENT CONSUMER MARKETER ) ) ) Arrival Mode Wheelchair Wheelchair Wheelchair Transfer Assistance None None None Patient Identification Verified (Name & Yes Yes Yes ) Patient Requires Transmission-Based No No No Precautions Safety Precautions NA Finger Stick Blood Sugar(mg/dl) (if 108 106 indicated): Blood Sugar Stated by Stated by Patient Patient Vital Signs Temperature (97.8 F-99.1 F) 97.6 F L 97.3 F L 96.7 F L Temperature Source Temporal Temporal Temporal Pulse Rate (60-100) 63 59 L 69 Pulse Location Monitor Monitor Respiratory Rate (12-18) 18 18 16 Respiratory rate source Observation Observation Oxygen Delivery Method Room Air Blood Pressure (90/60-120/80) 136/80 H 148/70 H 151/82 H Blood Pressure Mean (mm Hg) 98 96 105 Source Monitor Monitor Position Sitting Blood Pressure Location Left Arm History Since Last Visit- (Skip if this is Patient's initial visit) Have you changed medications since your No No No last visit? Any new allergies or adverse reactions No No No Had a fall/change in ADL's that may No No No increase risk of falls Signs or symptoms of abuse and/or No No No neglect since last visit Have you been in the hospital since your No No No last visit? Has dressing in place as prescribed Yes Yes Yes Has compression in place as prescribed Yes Yes Yes Has offloadiing in place as prescribed N/A Yes N/A Experienced any changes in pain level or No No No management Pain Scale: 0-10 Numeric Is Patient Pain Free? Yes Yes Yes WC - Nurse 1 - General Ulcer Measurement Start: 12/23/22 09:25 Freq: Status: Active Protocol: Activity Type Activity Date Activity User E-sign Co-sign Detail Recorded Client Recorded Date Recorded By Document 01/06/23 09:08 DL Desktop 01/06/23 09:10 DL Document 01/20/23 08:53 [facility] Desktop 01/20/23 08:58 [facility] 01/06/23 01/20/23 09:08 08:53 Wound Center Nurse 1 #3 L Stump/Post op -Combined with other wound No -Current Size (cm) - Length 0.5 0.2 -Current Size (cm) - Width 1.2 0.9 -Current Size (cm) - Depth 0.4 0.4 -Total Square Cm 0.60 0.18 -Photo Taken No -Tunneling No -Undermining/Tunneling No -Circular Undermining No -Exudate Amt Small Medium -Exudate Type Serosanguineous Serosanguineous -Wound Margin Distinct, Thickened Outline Attached -Granulation Amt Small (1-33%) Large (67-100%) -Granulation Quality [place] Red -Slough/Fibrin Yes -Necrosis Amt Small (1-33%) Small (1-33%) -Necrotic Tissue Type Adherent Slough Adherent Slough -Texture (Yudy-wound Skin Appearance) Excoriation, Assessed, Rash Scarring -Moisture (Yudy-wound Skin Appearance) Dry/Scaly Assessed -Color (Yudy-wound Skin Appearance) Erythema Assessed -Temperature (Yudy-wound Skin No Abnormality No Abnormality Appearance) (Pt Warm) (Pt Warm) -Tenderness on Palpation (Yudy-wound No No Skin Appearance) -Ulcer Cleansing Soap and Water Rinsed/ Irrigated with Saline -Foul Odor after Cleansing No No -Anesthetic Used 5% Lidocaine 5% Lidocaine Gel Gel WC - Nurse 2 - General Ulcer CM Notes Start: 12/23/22 09:25 Freq: Status: Active Protocol: Activity Type Activity Date Activity User E-sign Co-sign Detail Recorded Client Recorded Date Recorded By Document 12/23/22 09:38 Laptop 12/23/22 09:40 Document 01/06/23 09:25 Laptop 01/06/23 09:28 Document 01/20/23 09:12 Laptop 01/20/23 09:15 12/23/22 01/06/23 01/20/23 09:38 09:25 09:12 Wound Center Nurse 2 #3 L Stump/Post op -Time 09: 09:26 09:14 -Correct Patient Yes Yes Yes -Correct Side, Site, Position Yes Yes Yes -Correct Procedure Yes Yes Yes -Procedure Performed Yes Yes Yes -Type of Procedure Debridement Debridement Debridement -Clinical Debridement Muscle / Fascia Muscle / Fascia Muscle / Fascia -Tissue Removed Muscle Muscle,Fascia Muscle,Fascia -Post Debridement (cm) - Length 0.7 1.2 0.4 -Post Debridement (cm) - Width 1.3 0.7 0.7 -Post Debridement (cm) - Depth 0.2 0.2 0.2 -Total Square (Post) (cm) 0.91 0.84 0.28 -Area of Debridement (cm) - Length 0.7 1.2 0.4 -Area of Debridement (cm) - Width 1.3 0.7 0.7 -Total Square (Area) (cm) 0.91 0.84 0.28 -Tunneling No No No -Undermining/Tunneling No No No -Circular Undermining No No No -Wound/Ulcer Outcome Not Healed Not Healed Not Healed -Ulcer Cleansing Rinsed/ Rinsed/ Rinsed/ Irrigated with Irrigated with Irrigated with Saline Saline Saline -Foul Odor after Cleansing No No No -Bioengineered Tissue No No No -Bleeding Controlled with Pressure Pressure Pressure -Treatment Response Procedure Procedure Procedure Tolerated Well Tolerated Well Tolerated Well -Offloading No No No -Assistive Device(s) Wheelchair Wheelchair Wheelchair -Debridement - Muscle / Fascia, 1st Yes Yes Yes 20sq cm Pain Scale: 0-10 Numeric Is Patient Pain Free? Yes Yes Yes - Nurse 3 - General Ulcer D/C NN Start: 12/23/22 09:25 Freq: Status: Active Protocol: Activity Type Activity Date Activity User E-sign Co-sign Detail Recorded Client Recorded Date Recorded By Document 12/23/22 09:43 Laptop 12/23/22 09:43 Document 01/06/23 09:33 Laptop 01/06/23 09:33 Document 01/20/23 09:16 Laptop 01/20/23 09:17 12/23/22 01/06/23 01/20/23 09:43 09:33 09:16 Wound Care Center Nurse 3 #3 L Stump/Post op -Ulcer Cleansing Rinsed/ Rinsed/ Rinsed/ Irrigated with Irrigated with Irrigated with Saline Saline Saline -Foul Odor after Cleansing No No No -Primary Dressing Applied Mepilex Border, Promogran Promogran Promogran Garima Matter Garima Matter Garima Matter -Primary Dressing Covered/Secured with Dry Gauze, Dry Gauze Secured with Tape -Mepilex Border 1 -Promogran Garima Matter 1 1 1 Pain Scale: 0-10 Numeric Is Patient Pain Free? Yes Yes Yes - Visit Discharge Discharge Condition Stable Stable Stable Ambulatory Status Wheelchair Wheelchair Wheelchair Transportation Private Auto Private Auto Private Auto Medication Reconcilliation completed & Yes No Yes provided to patient/care provider Clinical Summary of Care Provided Yes No Yes Notes: Patient applied his own stump slack cooper. 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 without evidence of necrosis (2) Pain of amputation stump of left lower extremity: CODE(S): T87.89 - Other complications of amputation stump; M79.605 - Pain in left leg (3) Personal history of Methicillin resistant Staphylococcus aureus infection: CODE(S): Z86.14 - Personal history of Methicillin resistant Staphylococcus aureus infection (4) Diabetes: CODE(S): E11.9 - Type 2 diabetes mellitus without complications (5) History of below-knee amputation of left lower extremity: CODE(S): Z89.512 - Acquired absence of left leg below knee (6) Smoker: CODE(S): F17.200 - Nicotine dependence, unspecified, uncomplicated PLAN: Plan Wound care - Continue moistened Garima covered with gauze daily to left BKA stump ulcer. He has completed 10 applications of Epi-fix. Place lotion or Aquaphor to periwound to help prevent maceration. Compression - AMIE wrap or non-silicone stump slack cooper. He has stopped wearing his silicone stump slack cooper because it may have been causing maceration to the yudy wound. He states he is not wearing his prosthesis. Pathology from 08/22/22 was negative for acute osteomyelitis. A wound culture from 06/24/22 was positive for Staphylococcus aureus and he was treated with Augmentin and has finished them. Encouraged patient to stop smoking as it may have deleterious effects on wound healing. Follow up in [address] Plata's previous note: Discussed with the patient that an operative debridement is necessary since scar tissue over the bone inferiorly is not sustainable in a prosthesis. Coverage over the bone with soft tissue from an advancement flap would provide a cushion for the prosthesis. The surrounding tissue and posterior myocutaneous flap, after debridement of scar tissue, may be able to cover the bone. This is the ideal situation. May have to shorten the bone a little bit in order to make this happen. I will be conservative with the bone excision because if the stump ends up being too short, it would be problematic with fitting of the prosthesis. In that scenario, revision to an AKA would be necessary and then proceed with therapy with an AKA prosthesis. Patient voices understanding. Right now the length of the tibial from the tibial tubercle is 11 cm. The range is 10-12 cm. So I can shorten the bone 1 cm and still be in range to allow closure with minimal tension. Surgery would be done under general anesthesia with a surgical observation overnight stay in the hospital. Patient was informed of the risks and complications of the procedure including alternatives to surgery. These were discussed with the patient personally. Patient voices understanding and initially wished to proceed. Initially he wanted to hold off on the surgery. Now he has changed his mind and wants to proceed with the surgery. At the time of surgery, he will need a Prealbumin checked. His last one in the chart was 9.9 on 11/07/20. Would like to see his nutritional status maximized before proceeding with secondary wound closure with a posterior myocutaneous advancement flap. He also needs a HgbA1c. For the elective procedure involving a posterior myocutaneous advancement flap, the HgbA1c needs to be less than 8. Prior before surgery, more wound cultures are necessary. A positive culture will necessitate antibiotic therapy.
== END 2023-01-21 23:59 | disposition home or self-care (01) ==
LOC: WC 09:00
PROVIDERS: PCP Family Medicine; Referring Provider Family Medicine; Visit Provider Nurse Practitioner Family
DX: T87.89 Other complications of amputation stump (principal); E11.622 Type 2 diabetes mellitus with other skin ulcer; L97.922 Non-pressure chronic ulcer of unspecified part of left lower leg with fat layer exposed; Y83.5 Amputation of limb(s) as the cause of abnormal reaction of the patient, or of later complication, without mention of misadventure at the time of the procedure; F17.200 Nicotine dependence, unspecified, uncomplicated; Z86.14 Personal history of Methicillin resistant Staphylococcus aureus infection
CPT/HCPCS: 11043

== ENCOUNTER 2023-02-03 09:41 | Outpatient (RCR) | payer MEDICARE, MEDICAID, SELFPAY ==
[2023-01-22 00:41] VITALS: BP 151/82; PULSE 69; RESP 16; TEMP 35.9
[2023-02-03 09:46] VITALS: BP 150/74; RESP 54; TEMP 36
--- NOTE | 2023-02-03 11:56 | PCM.WC.PN ---
History of Present Illness Date of Service: 02/03/23 Chief Complaint: Ulcer on left BKA after I&D of a diabetic abscess/hematoma on 11/06/20 History of Wound: Surgery on 11/06/20 - Surgical preparation left below knee amputation stump with incision and drainage and excisional debridement with partial ostectomy tibia for osteomyelitis and evacuation hematoma for draining diabetic ulcer abscess. (He had his Left BKA on 04/17/20). Operative tissue and bone cultures were negative. Wound cultures from 11/02/20 positive for MSSA, Enterobacter cloacae complex, and Corynebacterium amycolatum. At his last visit on 08/22/22 bony debridement was done to the stump because there was some bone exposed. Pathology was negative for acute osteomyelitis. Prealbumin 9.9 on 11/07/20. He was evaluated by Dr. Boston on 12/06/21 for an operative debridement and possible osteomyelitis. Surgery with Dr. Boston on 12/25/21 for Debridement left lower extremity amputation stump skin, subcutaneous tissue, fascia, bone. Bone culture 12/25/21 - Staphylococcus aureus. Pathology of bone showed dense fibroconnective tissue with reactive changes and foreign body giant cell reaction. Pieces of bone with reactive changes. Wound culture from 09/17/21 showed no growth. Wound culture from 07/09/21 positive for Staphylococcus aureus and Streptococcus agalactiae (B). He was started on Augmentin and a Probiotic. Xray obtained on 10/01/21 of his left BKA stump because of his non healing ulcer. The xray showed bony abnormalities along the lateral aspect of the amputation site of the proximal tibia. Consider further evaluation to exclude osteomyelitis. He obtained this xray at [facility]. MRI obtained 10/31/21, at [facility], of his left BKA which showed Bone edema with contrast enhancement of the tibia consistent with osteomyelitis. Small fluid collection at the distal aspect of the amputated tibia suggestive of small abscess. Wound culture from 06/24/22 was positive for Staphylococcus aureus. He was treated with Augmentin. He has has completed ten applications of Theraskin which did help decrease his ulcer size. 02/25/22-Unroofed the undermining from 9-3 o'clock to make wound care easier. Wound care - He has had 10 applications of Theraskin. Since he has had an operative debridement, he has had 10 applications of Epifix which he completed 04/08/22. Wound care will be moistened Garima topped with adaptic and covered with gauze daily after washing with soap and water. He is wearing a stump cutting and creasing press operator for compression. Today he denies any fever. He states his appetite is good. Progress of Wound: Left stump ulcer is smaller, wound bed beefy pink into the muscle. Yudy wound is clear today. Objective Data Objective Data Vital Signs: Vital Signs Temp Pulse Resp BP O2 Del Method 96.8 F L 69 54 H 150/74 H Room Air 02/03/23 09:46 01/22/23 00:41 02/03/23 09:46 02/03/23 09:46 02/03/23 09:46 Oxygen Delivery Method Room Air Charges/Coding Procedures Integumentary [id number]: [id number] Ria musc/fascia 20 sq cm/< Debridement Note Debridement Note Wound debrided: #3 Left BKA stump. Laterality: Left Wound Grade/Stage: 4 Type of Debridement: Excisional debridement Anesthesia Used: 4% Lidocaine Solution Depth: Down to and including healthy tissue, in the subcutaneous layer, to muscle and to bone (bone is palpable but not exposed and not debrided.) Percentage of wound debrided: 100 Instrument Used: 3mm curette Tissue Removed: subcutaneous tissue and muscle. Severity: Fat Layer Exposed (muscle is exposed. ) Amount of bleeding with debridement: Mild Bleeding Controlled with: Pressure and Compression and gauze Patient tolerated procedure: Patient tolerated procedure well Post-Debridement Measurements and Additional Note: Post-Debridement Measurements/Treatment - Nurse 1 - General Ulcer Assessment Start: 02/03/23 09:45 Freq: Status: Active Protocol: ARLETH Activity Type Activity Date Activity User E-sign Co-sign Detail Recorded Client Recorded Date Recorded By Document 02/03/23 09:46 Desktop 02/03/23 09:52 02/03/23 09:46 - Today's Visit Information Type of service Follow-up Visit (Physician/INDUSTRIAL NURSE ) Arrival Mode Wheelchair Transfer Assistance None Patient Identification Verified (Name & Yes ) Patient Requires Transmission-Based No Precautions Safety Precautions Fall Prevention Vital Signs Temperature (97.8 F-99.1 F) 96.8 F L Temperature Source Temporal Pulse Location Monitor Respiratory Rate (12-18) 54 H Oxygen Delivery Method Room Air Blood Pressure (90/60-120/80) 150/74 H Blood Pressure Mean (mm Hg) 99 Source Monitor Position Sitting Blood Pressure Location Right Arm History Since Last Visit- (Skip if this is Patient's initial visit) Have you changed medications since your No last visit? Any new allergies or adverse reactions No Had a fall/change in ADL's that may No increase risk of falls Signs or symptoms of abuse and/or No neglect since last visit Have you been in the hospital since your No last visit? Has dressing in place as prescribed Yes Has compression in place as prescribed N/A Has offloadiing in place as prescribed N/A Experienced any changes in pain level or No management Pain Scale: 0-10 Numeric Is Patient Pain Free? Yes FREDI - Nurse 1 - General Ulcer Measurement Start: 02/03/23 09:45 Freq: Status: Active Protocol: Activity Type Activity Date Activity User E-sign Co-sign Detail Recorded Client Recorded Date Recorded By Document 02/03/23 09:46 Desktop 02/03/23 09:52 02/03/23 09:46 Wound Center Nurse 1 #3 L Stump/Post op -Combined with other wound No -Current Size (cm) - Length 0.3 -Current Size (cm) - Width 0.8 -Current Size (cm) - Depth 0.2 -Total Square Cm 0.24 -Photo Taken No -Epithelialization None Present -Tunneling No -Undermining/Tunneling No -Circular Undermining No -Exudate Amt Medium -Exudate Type Serosanguineous -Wound Margin Distinct, Outline Attached -Granulation Amt Large (67-100%) -Granulation Quality Red -Slough/Fibrin Yes -Necrosis Amt Small (1-33%) -Necrotic Tissue Type Adherent Slough -Texture (Yudy-wound Skin Appearance) Assessed, Scarring -Moisture (Yudy-wound Skin Appearance) Assessed, Maceration -Color (Yudy-wound Skin Appearance) Assessed -Temperature (Yudy-wound Skin No Abnormality Appearance) (Pt Warm) -Tenderness on Palpation (Yudy-wound No Skin Appearance) -Ulcer Cleansing Rinsed/ Irrigated with Saline -Foul Odor after Cleansing No -Anesthetic Used 5% Lidocaine Gel FREDI - Nurse 2 - General Ulcer CM Notes Start: 02/03/23 09:45 Freq: Status: Active Protocol: Activity Type Activity Date Activity User E-sign Co-sign Detail Recorded Client Recorded Date Recorded By Document 02/03/23 10:06 Laptop 02/03/23 10:08 02/03/23 10:06 Wound Center Nurse 2 -Time 10:06 -Correct Patient Yes -Correct Side, Site, Position Yes -Correct Procedure Yes -Procedure Performed Yes -Type of Procedure Debridement -Clinical Debridement Muscle / Fascia -Tissue Removed Muscle -Post Debridement (cm) - Length 0.3 -Post Debridement (cm) - Width 1.0 -Post Debridement (cm) - Depth 0.2 -Total Square (Post) (cm) 0.30 -Area of Debridement (cm) - Length 0.3 -Area of Debridement (cm) - Width 1.0 -Total Square (Area) (cm) 0.30 -Tunneling No -Undermining/Tunneling No -Circular Undermining No -Wound/Ulcer Outcome Not Healed -Ulcer Cleansing Rinsed/ Irrigated with Saline -Foul Odor after Cleansing No -Bioengineered Tissue No -Bleeding Controlled with Pressure -Treatment Response Procedure Tolerated Well -Offloading No -Assistive Device(s) Wheelchair -Debridement - Muscle / Fascia, 1st Yes 20sq cm Pain Scale: 0-10 Numeric Is Patient Pain Free? Yes - Nurse 3 - General Ulcer D/C NN Start: 02/03/23 09:45 Freq: Status: Active Protocol: Activity Type Activity Date Activity User E-sign Co-sign Detail Recorded Client Recorded Date Recorded By Document 02/03/23 10:15 GM Desktop 02/03/23 10:16 02/03/23 10:15 Wound Care Center Nurse 3 #3 L Stump/Post op -Ulcer Cleansing Not Cleansed -Foul Odor after Cleansing No -Negative Pressure Wound Therapy N/A -Primary Dressing Applied Mepilex Border, Promogran -Mepilex Border 1 -Promogran 1 Pain Scale: 0-10 Numeric Is Patient Pain Free? 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 without evidence of necrosis (2) Pain of amputation stump of left lower extremity: CODE(S): T87.89 - Other complications of amputation stump; M79.605 - Pain in left leg (3) Personal history of Methicillin resistant Staphylococcus aureus infection: CODE(S): Z86.14 - Personal history of Methicillin resistant Staphylococcus aureus infection (4) Diabetes: CODE(S): E11.9 - Type 2 diabetes mellitus without complications (5) History of below-knee amputation of left lower extremity: CODE(S): Z89.512 - Acquired absence of left leg below knee (6) Smoker: CODE(S): F17.200 - Nicotine dependence, unspecified, uncomplicated PLAN: Plan Wound care - Continue moistened Garima covered with [place] SAP every other day to left BKA stump ulcer. He has completed 10 applications of Epi-fix. Place lotion or Aquaphor to periwound to help prevent maceration. Compression - AMIE wrap or non-silicone stump cutting and creasing press operator. He has stopped wearing his silicone stump cutting and creasing press operator because it may have been causing maceration to the yudy wound. He states he is not wearing his prosthesis. Pathology from 08/22/22 was negative for acute osteomyelitis. A wound culture from 06/24/22 was positive for Staphylococcus aureus and he was treated with Augmentin and has finished them. Encouraged patient to stop smoking as it may have deleterious effects on wound healing. Follow up in [address] Plata's previous note: Discussed with the patient that an operative debridement is necessary since scar tissue over the bone inferiorly is not sustainable in a prosthesis. Coverage over the bone with soft tissue from an advancement flap would provide a cushion for the prosthesis. The surrounding tissue and posterior myocutaneous flap, after debridement of scar tissue, may be able to cover the bone. This is the ideal situation. May have to shorten the bone a little bit in order to make this happen. I will be conservative with the bone excision because if the stump ends up being too short, it would be problematic with fitting of the prosthesis. In that scenario, revision to an AKA would be necessary and then proceed with therapy with an AKA prosthesis. Patient voices understanding. Right now the length of the tibial from the tibial tubercle is 11 cm. The range is 10-12 cm. So I can shorten the bone 1 cm and still be in range to allow closure with minimal tension. Surgery would be done under general anesthesia with a surgical observation overnight stay in the hospital. Patient was informed of the risks and complications of the procedure including alternatives to surgery. These were discussed with the patient personally. Patient voices understanding and initially wished to proceed. Initially he wanted to hold off on the surgery. Now he has changed his mind and wants to proceed with the surgery. At the time of surgery, he will need a Prealbumin checked. His last one in the chart was 9.9 on 11/07/20. Would like to see his nutritional status maximized before proceeding with secondary wound closure with a posterior myocutaneous advancement flap. He also needs a HgbA1c. For the elective procedure involving a posterior myocutaneous advancement flap, the HgbA1c needs to be less than 8. Prior before surgery, more wound cultures are necessary. A positive culture will necessitate antibiotic therapy.
== END 2023-02-20 23:59 | disposition home or self-care (01) ==
LOC: WC 09:41
PROVIDERS: PCP Family Medicine; Referring Provider Family Medicine; Visit Provider Nurse Practitioner Family
DX: T87.89 Other complications of amputation stump (principal); E11.622 Type 2 diabetes mellitus with other skin ulcer; L97.822 Non-pressure chronic ulcer of other part of left lower leg with fat layer exposed; Y83.5 Amputation of limb(s) as the cause of abnormal reaction of the patient, or of later complication, without mention of misadventure at the time of the procedure; Z86.14 Personal history of Methicillin resistant Staphylococcus aureus infection; F17.200 Nicotine dependence, unspecified, uncomplicated
CPT/HCPCS: 11043

== ENCOUNTER 2023-04-21 11:00 | Outpatient (RCR) | payer MEDICARE, MEDICAID, SELFPAY ==
[2023-02-21 00:19] VITALS: BP 150/74; PULSE 69; RESP 54; TEMP 36
[2023-04-07 11:08] VITALS: BP 188/66; PULSE 60; RESP 16; TEMP 36.3
--- NOTE | 2023-04-07 13:53 | PN.PCM_ITS ---
History of Present Illness Date of Service: 04/07/23 Chief Complaint: Ulcer on left BKA after I&D of a diabetic abscess/hematoma on 11/06/20 History of Wound: Surgery on 11/06/20 - Surgical preparation left below knee amputation stump with incision and drainage and excisional debridement with partial ostectomy tibia for osteomyelitis and evacuation hematoma for draining diabetic ulcer abscess. (He had his Left BKA on 04/17/20). Operative tissue and bone cultures were negative. Wound cultures from 11/02/20 positive for MSSA, Enterobacter cloacae complex, and Corynebacterium amycolatum. At his last visit on 08/22/22 bony debridement was done to the stump because there was some bone exposed. Pathology was negative for acute osteomyelitis. Prealbumin 9.9 on 11/07/20. He was evaluated by Dr. Boston on 12/06/21 for an operative debridement and possible osteomyelitis. Surgery with Dr. Boston on 12/25/21 for Debridement left lower extremity amputation stump skin, subcutaneous tissue, fascia, bone. Bone culture 12/25/21 - Staphylococcus aureus. Pathology of bone showed dense fibroconnective tissue with reactive changes and foreign body giant cell reaction. Pieces of bone with reactive changes. Wound culture from 09/17/21 showed no growth. Wound culture from 07/09/21 positive for Staphylococcus aureus and Streptococcus agalactiae (B). He was started on Augmentin and a Probiotic. Xray obtained on 10/01/21 of his left BKA stump because of his non healing ulcer. The xray showed bony abnormalities along the lateral aspect of the amputation site of the proximal tibia. Consider further evaluation to exclude osteomyelitis. He obtained this xray at [facility]. MRI obtained 10/31/21, at [facility], of his left BKA which showed Bone edema with contrast enhancement of the tibia consistent with osteomyelitis. Small fluid collection at the distal aspect of the amputated tibia suggestive of small abscess. Wound culture from 06/24/22 was positive for Staphylococcus aureus. He was treated with Augmentin. He has has completed ten applications of Theraskin which did help decrease his ulcer size. 02/25/22-Unroofed the undermining from 9-3 o'clock to make wound care easier. Wound care - He has had 10 applications of Theraskin. Since he has had an operative debridement, he has had 10 applications of Epifix which he completed 04/08/22. Wound care will be moistened Garima topped with adaptic and covered with gauze daily after washing with soap and water. He is wearing a stump roto rooter operator for compression. Today he denies any fever. He states his appetite is good. Progress of Wound: Left stump ulcer is smaller. There is a thin opening, it is difficult to see the base of the ulcer. Yudy wound is clear. He has concerns there may be an infection because there is increase pain. He denies increased drainage or odor. Objective Data Objective Data Vital Signs: Vital Signs Temp Pulse Resp BP O2 Del Method 97.3 F L 60 16 188/66 H Room Air 04/07/23 11:08 04/07/23 11:08 04/07/23 11:08 04/07/23 11:08 04/07/23 11:08 Oxygen Delivery Method Room Air Charges/Coding Procedures Integumentary [id number]: [id number] Ria musc/fascia 20 sq cm/< Debridement Note Debridement Note Wound debrided: #3 Left BKA stump. Laterality: Left Wound Grade/Stage: 4 Type of Debridement: Excisional debridement Anesthesia Used: 4% Lidocaine Solution Depth: Down to and including healthy tissue, in the subcutaneous layer, to muscle and to bone (bone is palpable but not exposed and not debrided.) Percentage of wound debrided: 100 Instrument Used: 3mm curette Tissue Removed: subcutaneous tissue and muscle. Severity: Fat Layer Exposed (muscle is exposed. ) Amount of bleeding with debridement: Mild Bleeding Controlled with: Pressure and Compression and gauze Patient tolerated procedure: Patient tolerated procedure well Post-Debridement Measurements and Additional Note: Post-Debridement Measurements/Treatment - Nurse 1 - General Ulcer Assessment Start: 04/07/23 11:07 Freq: Status: Active Protocol: [email or web address].GENEVA Activity Type Activity Date Activity User E-sign Co-sign Detail Recorded Client Recorded Date Recorded By Document 04/07/23 11:08 [facility] Desktop 04/07/23 11:15 [facility] 04/07/23 11:08 - Today's Visit Information Type of service Follow-up Visit (Physician/[facility]TAIN [employer]ER ) Arrival Mode Wheelchair Transfer Assistance None Patient Identification Verified (Name & Yes ) Patient Requires Transmission-Based No Precautions Vital Signs Temperature (97.8 F-99.1 F) 97.3 F L Temperature Source Temporal Pulse Rate (60-100) 60 Pulse Location Monitor Respiratory Rate (12-18) 16 Respiratory rate source Observation Oxygen Delivery Method Room Air Blood Pressure (90/60-120/80) 188/66 H Blood Pressure Mean (mm Hg) 106 Source Monitor Position Sitting Blood Pressure Location Left Forearm History Since Last Visit- (Skip if this is Patient's initial visit) Have you changed medications since your No last visit? Any new allergies or adverse reactions No Had a fall/change in ADL's that may No increase risk of falls Signs or symptoms of abuse and/or No neglect since last visit Have you been in the hospital since your No last visit? Has dressing in place as prescribed Yes Has compression in place as prescribed Yes Has offloadiing in place as prescribed N/A Experienced any changes in pain level or No management Right Footwear Regular Shoe Pain Scale: 0-10 Numeric Is Patient Pain Free? Yes WC - Nurse 1 - General Ulcer Measurement Start: 04/07/23 11:07 Freq: Status: Active Protocol: Activity Type Activity Date Activity User E-sign Co-sign Detail Recorded Client Recorded Date Recorded By Document 04/07/23 11:08 [facility] Desktop 04/07/23 11:15 [facility] 04/07/23 11:08 Wound Center Nurse 1 #3 L Stump/Post op -Combined with other wound No -Current Size (cm) - Length 0.1 -Current Size (cm) - Width 0.7 -Current Size (cm) - Depth 0.3 -Total Square Cm 0.07 -Date of Last Picture (Recall this 04/07/23 field) -Photo Taken Yes -Epithelialization Small 1-33% -Tunneling No -Undermining/Tunneling No -Circular Undermining No -Exudate Amt Small -Exudate Type Serous -Wound Margin Thickened -Granulation Amt Large (67-100%) -Granulation Quality [place] -Slough/Fibrin No -Necrosis Amt None Present (0 %) -Texture (Yudy-wound Skin Appearance) Assessed, Scarring -Moisture (Yudy-wound Skin Appearance) Assessed -Color ([place]-wound Skin Appearance) Assessed -Temperature (Yudy-wound Skin No Abnormality Appearance) (Pt Warm) -Tenderness on Palpation (Yudy-wound No Skin Appearance) -Ulcer Cleansing Rinsed/ Irrigated with Saline -Foul Odor after Cleansing No -Anesthetic Used 5% Lidocaine Gel - Nurse 2 - General Ulcer CM Notes Start: 04/07/23 11:07 Freq: Status: Active Protocol: Activity Type Activity Date Activity User E-sign Co-sign Detail Recorded Client Recorded Date Recorded By Document 04/07/23 11:21 Laptop 04/07/23 11:26 04/07/23 11:21 Wound Center Nurse 2 -Time 11:25 -Correct Patient Yes -Correct Side, Site, Position Yes -Correct Procedure Yes -Procedure Performed Yes -Type of Procedure Debridement -Clinical Debridement Muscle / Fascia -Tissue Removed Muscle,Fascia -Post Debridement (cm) - Length 0.2 -Post Debridement (cm) - Width 0.8 -Post Debridement (cm) - Depth 0.3 -Total Square (Post) (cm) 0.16 -Area of Debridement (cm) - Length 0.2 -Area of Debridement (cm) - Width 0.8 -Total Square (Area) (cm) 0.16 -Tunneling No -Undermining/Tunneling No -Circular Undermining No -Wound/Ulcer Outcome Not Healed -Ulcer Cleansing Rinsed/ Irrigated with Saline -Foul Odor after Cleansing No -Bioengineered Tissue No -Bleeding Controlled with Pressure -Treatment Response Procedure Tolerated Well -Offloading No -Assistive Device(s) Wheelchair -Debridement - Subq, 1st 20sq cm No -Debridement - Muscle / Fascia, 1st Yes 20sq cm Pain Scale: 0-10 Numeric Is Patient Pain Free? Yes - Nurse 3 - General Ulcer D/C NN Start: 04/07/23 11:07 Freq: Status: Active Protocol: Activity Type Activity Date Activity User E-sign Co-sign Detail Recorded Client Recorded Date Recorded By Document 04/07/23 11:28 [facility] Desktop 04/07/23 11:30 [facility] 04/07/23 11:28 Wound Care Center Nurse 3 #3 L Stump/Post op -Ulcer Cleansing Rinsed/ Irrigated with Saline -Foul Odor after Cleansing No -Primary Dressing Applied C Hydrogel ($), Mepilex Border -Other Dressing drsg per dl business technology analyst -Mepilex Border 1 Left -Other pt applies/ wears stump roto rooter operator Treatment Response Procedure Tolerated Well Pain Scale: 0-10 Numeric Is Patient Pain Free? 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 without evidence of necrosis (2) Pain of amputation stump of left lower extremity: CODE(S): T87.89 - Other complications of amputation stump; M79.605 - Pain in left leg (3) Personal history of Methicillin resistant Staphylococcus aureus infection: CODE(S): Z86.14 - Personal history of Methicillin resistant Staphylococcus aureus infection (4) Diabetes: CODE(S): E11.9 - Type 2 diabetes mellitus without complications (5) History of below-knee amputation of left lower extremity: CODE(S): Z89.512 - Acquired absence of left leg below knee (6) Smoker: CODE(S): F17.200 - Nicotine dependence, unspecified, uncomplicated PLAN: Plan Wound care - Stop Garima and start collagen hydrogel covered with [place] SAP every other day to left BKA stump ulcer. He has completed 10 applications of Epi-fix. Place lotion or Aquaphor to periwound to help prevent maceration. Compression - AMIE wrap or non-silicone stump roto rooter operator. He has stopped wearing his silicone stump roto rooter operator because it may have been causing maceration to the yudy wound. He states he is not wearing his prosthesis. Pathology from 08/22/22 was negative for acute osteomyelitis. A wound culture from 06/24/22 was positive for Staphylococcus aureus and he was treated with Augmentin and has finished them. A wound culture was obtained today, 04/07/23.? A positive culture will necessitate antibiotic therapy. Encouraged patient to stop smoking as it may have deleterious effects on wound healing. Follow up in 2 weeks. From a previous note from Dr. Plata: Discussed with the patient that an operative debridement is necessary since scar tissue over the bone inferiorly is not sustainable in a prosthesis. Coverage over the bone with soft tissue from an advancement flap would provide a cushion for the prosthesis. The surrounding tissue and posterior myocutaneous flap, after debridement of scar tissue, may be able to cover the bone. This is the ideal situation. May have to shorten the bone a little bit in order to make this happen. I will be conservative with the bone excision because if the stump ends up being too short, it would be problematic with fitting of the prosthesis. In that scenario, revision to an AKA would be necessary and then proceed with therapy with an AKA prosthesis. Patient voices understanding. Right now the length of the tibial from the tibial tubercle is 11 cm. The range is 10-12 cm. So I can shorten the bone 1 cm and still be in range to allow closure with minimal tension. Surgery would be done under general anesthesia with a surgical observation overnight stay in the hospital. Patient was informed of the risks and complications of the procedure including alternatives to surgery. These were discussed with the patient personally. Patient voices understanding and initially wished to proceed. Initially he wanted to hold off on the surgery. Now he has changed his mind and wants to proceed with the surgery. At the time of surgery, he will need a Prealbumin checked. His last one in the chart was 9.9 on 11/07/20. Would like to see his nutritional status maximized before proceeding with secondary wound closure with a posterior myocutaneous advancement flap. He also needs a HgbA1c. For the elective procedure involving a posterior myocutaneous advancement flap, the HgbA1c needs to be less than 8. Prior before surgery, more wound cultures are necessary. A positive culture will necessitate antibiotic therapy.
[2023-04-21 10:50] VITALS: BP 137/84; PULSE 68; RESP 18; TEMP 34.9
--- NOTE | 2023-04-21 13:04 | PCM.WC.PN ---
History of Present Illness Date of Service: 04/21/23 Chief Complaint: Ulcer on left BKA after I&D of a diabetic abscess/hematoma on 11/06/20 History of Wound: Surgery on 11/06/20 - Surgical preparation left below knee amputation stump with incision and drainage and excisional debridement with partial ostectomy tibia for osteomyelitis and evacuation hematoma for draining diabetic ulcer abscess. (He had his Left BKA on 04/17/20). Operative tissue and bone cultures were negative. Wound cultures from 11/02/20 positive for MSSA, Enterobacter cloacae complex, and Corynebacterium amycolatum. At his last visit on 08/22/22 bony debridement was done to the stump because there was some bone exposed. Pathology was negative for acute osteomyelitis. Prealbumin 9.9 on 11/07/20. He was evaluated by Dr. Boston on 12/06/21 for an operative debridement and possible osteomyelitis. Surgery with Dr. Boston on 12/25/21 for Debridement left lower extremity amputation stump skin, subcutaneous tissue, fascia, bone. Bone culture 12/25/21 - Staphylococcus aureus. Pathology of bone showed dense fibroconnective tissue with reactive changes and foreign body giant cell reaction. Pieces of bone with reactive changes. Wound culture from 09/17/21 showed no growth. Wound culture from 07/09/21 positive for Staphylococcus aureus and Streptococcus agalactiae (B). He was started on Augmentin and a Probiotic. Xray obtained on 10/01/21 of his left BKA stump because of his non healing ulcer. The xray showed bony abnormalities along the lateral aspect of the amputation site of the proximal tibia. Consider further evaluation to exclude osteomyelitis. He obtained this xray at [facility]. MRI obtained 10/31/21, at [facility], of his left BKA which showed Bone edema with contrast enhancement of the tibia consistent with osteomyelitis. Small fluid collection at the distal aspect of the amputated tibia suggestive of small abscess. Wound culture from 06/24/22 was positive for Staphylococcus aureus. He was treated with Augmentin. Wound culture obtained 04/07/23 which was positive for MRSE and Anaerobic cocci. He was treated with Levofloxacin and Metronidazole. He has has completed ten applications of Theraskin which did help decrease his ulcer size. 02/25/22-Unroofed the undermining from 9-3 o'clock to make wound care easier. Wound care - He has had 10 applications of Theraskin. Since he has had an operative debridement, he has had 10 applications of Epifix which he completed 04/08/22. Wound care will be moistened Garima topped with adaptic and covered with gauze daily after washing with soap and water. He is wearing a stump stock unloader for compression. Today he denies any fever. He states his appetite is good. Progress of Wound: Left stump ulcer is smaller. There is a thin opening, it is difficult to see the base of the ulcer. Yudy wound is clear. He has tolerated the antibiotics well. Objective Data Objective Data Vital Signs: Vital Signs Temp Pulse Resp BP O2 Del Method 94.9 F L 68 18 137/84 H Room Air 04/21/23 10:50 04/21/23 10:50 04/21/23 10:50 04/21/23 10:50 04/21/23 10:50 Oxygen Delivery Method Room Air Lab / Micro Data Micro: Microbiology 04/07/23 11:20 Wound - Below Knee Amputation Gram Stain - Final 04/07/23 11:20 Wound - Below Knee Amputation Wound Culture - Final Staphylococcus epidermidis 04/07/23 11:20 Wound - Below Knee Amputation Anaerobic Culture - Final Anaerobic cocci Charges/Coding Procedures Integumentary [id number]: [id number] Ria musc/fascia 20 sq cm/< Debridement Note Debridement Note Wound debrided: #3 Left BKA stump. Laterality: Left Wound Grade/Stage: 4 Type of Debridement: Excisional debridement Anesthesia Used: 4% Lidocaine Solution Depth: Down to and including healthy tissue, in the subcutaneous layer, to muscle and to bone (bone is palpable but not exposed and not debrided.) Percentage of wound debrided: 100 Instrument Used: - (1 mm curette) Tissue Removed: subcutaneous tissue and muscle. Severity: Fat Layer Exposed (muscle is exposed. ) Amount of bleeding with debridement: Mild Bleeding Controlled with: Pressure and Compression and gauze Patient tolerated procedure: Patient tolerated procedure well Post-Debridement Measurements and Additional Note: Post-Debridement Measurements/Treatment FREDI - Nurse 1 - General Ulcer Assessment Start: 04/07/23 11:07 Freq: Status: Active Protocol: ARLETH Activity Type Activity Date Activity User E-sign Co-sign Detail Recorded Client Recorded Date Recorded By Document 04/07/23 11:08 [employer] Desktop 04/07/23 11:15 [facility] Document 04/21/23 10:50 [employer] 04/21/23 10:56 [employer] 04/07/23 04/21/23 11:08 10:50 - Today's Visit Information Type of service Follow-up Visit Follow-up Visit (Physician/CONTACT LENS LATHE OPERATOR (Physician/CONTACT LENS LATHE OPERATOR ) ) Arrival Mode Wheelchair Wheelchair Transfer Assistance None Patient Identification Verified (Name & Yes Yes ) Patient Requires Transmission-Based No Precautions Vital Signs Temperature (97.8 F-99.1 F) 97.3 F L 94.9 F L Temperature Source Temporal Temporal Pulse Rate (60-100) 60 68 Pulse Location Monitor Monitor Respiratory Rate (12-18) 16 18 Respiratory rate source Observation Observation Oxygen Delivery Method Room Air Room Air Blood Pressure (90/60-120/80) 188/66 H 137/84 H Blood Pressure Mean (mm Hg) 106 101 Source Monitor Monitor Position Sitting Sitting Blood Pressure Location Left Forearm Left Arm History Since Last Visit- (Skip if this is Patient's initial visit) Have you changed medications since your No No last visit? Any new allergies or adverse reactions No No Had a fall/change in ADL's that may No No increase risk of falls Signs or symptoms of abuse and/or No No neglect since last visit Have you been in the hospital since your No No last visit? Has dressing in place as prescribed Yes Yes Has compression in place as prescribed Yes Yes Has offloadiing in place as prescribed N/A Yes Experienced any changes in pain level or No No management Left Footwear No Footwear Right Footwear Regular Shoe Regular Shoe Pain Scale: 0-10 Numeric Is Patient Pain Free? Yes Yes - Nurse 1 - General Ulcer Measurement Start: 04/07/23 11:07 Freq: Status: Active Protocol: Activity Type Activity Date Activity User E-sign Co-sign Detail Recorded Client Recorded Date Recorded By Document 04/07/23 11:08 [employer] 04/07/23 11:15 [facility] Document 04/21/23 10:50 KW Desktop 04/21/23 10:56 KW 04/07/23 04/21/23 11:08 10:50 Wound Center Nurse 1 #3 L Stump/Post op -Combined with other wound No -Current Size (cm) - Length 0.1 0.1 -Current Size (cm) - Width 0.7 0.1 -Current Size (cm) - Depth 0.3 0.1 -Total Square Cm 0.07 0.01 -Date of Last Picture (Recall this 04/07/23 04/21/23 field) -Photo Taken Yes Yes -Epithelialization Small 1-33% -Tunneling No -Undermining/Tunneling No -Circular Undermining No -Exudate Amt Small -Exudate Type Serous -Wound Margin Thickened -Granulation Amt Large (67-100%) -Granulation Quality [place] -Slough/Fibrin No -Necrosis Amt None Present (0 %) -Texture (Yudy-wound Skin Appearance) Assessed, Scarring -Moisture (Yudy-wound Skin Appearance) Assessed -Color (Yudy-wound Skin Appearance) Assessed -Temperature (Yudy-wound Skin No Abnormality Appearance) (Pt Warm) -Tenderness on Palpation (Yudy-wound No Skin Appearance) -Ulcer Cleansing Rinsed/ Rinsed/ Irrigated with Irrigated with Saline Saline -Foul Odor after Cleansing No No -Anesthetic Used 5% Lidocaine 5% Lidocaine Gel Gel WC - Nurse 2 - General Ulcer CM Notes Start: 04/07/23 11:07 Freq: Status: Active Protocol: Activity Type Activity Date Activity User E-sign Co-sign Detail Recorded Client Recorded Date Recorded By Document 04/07/23 11:21 Laptop 04/07/23 11:26 Document 04/21/23 11:04 Laptop 04/21/23 11:05 04/07/23 04/21/23 11:21 11:04 Wound Center Nurse 2 #3 L Stump/Post op -Time 11:25 11:05 -Correct Patient Yes Yes -Correct Side, Site, Position Yes Yes -Correct Procedure Yes Yes -Procedure Performed Yes Yes -Type of Procedure Debridement Debridement -Clinical Debridement Muscle / Fascia Muscle / Fascia -Tissue Removed Muscle,Fascia Muscle,Fascia -Post Debridement (cm) - Length 0.2 0.5 -Post Debridement (cm) - Width 0.8 0.1 -Post Debridement (cm) - Depth 0.3 0.4 -Total Square (Post) (cm) 0.16 0.05 -Area of Debridement (cm) - Length 0.2 0.5 -Area of Debridement (cm) - Width 0.8 0.1 -Total Square (Area) (cm) 0.16 0.05 -Tunneling No No -Undermining/Tunneling No No -Circular Undermining No No -Wound/Ulcer Outcome Not Healed Not Healed -Ulcer Cleansing Rinsed/ Rinsed/ Irrigated with Irrigated with Saline Saline -Foul Odor after Cleansing No No -Bioengineered Tissue No No -Bleeding Controlled with Pressure Pressure -Treatment Response Procedure Procedure Tolerated Well Tolerated Well -Offloading No No -Assistive Device(s) Wheelchair -Debridement - Subq, 1st 20sq cm No No -Debridement - Muscle / Fascia, 1st Yes Yes 20sq cm Pain Scale: 0-10 Numeric Is Patient Pain Free? Yes Yes - Nurse 3 - General Ulcer D/C NN Start: 04/07/23 11:07 Freq: Status: Active Protocol: Activity Type Activity Date Activity User E-sign Co-sign Detail Recorded Client Recorded Date Recorded By Document 04/07/23 11:28 [facility] Desktop 04/07/23 11:30 [facility] Document 04/21/23 11:12 DL Desktop 04/21/23 11:13 DL 04/07/23 04/21/23 11:28 11:12 Wound Care Center Nurse 3 #3 L Stump/Post op -Ulcer Cleansing Rinsed/ Rinsed/ Irrigated with Irrigated with Saline Saline -Foul Odor after Cleansing No No -Primary Dressing Applied C Hydrogel ($), Mepilex Border Mepilex Border -Other Dressing drsg per dl nugel radio antenna installer -Mepilex Border 1 1 Left -Stockings Yes -Other pt applies/ wears stump stock unloader Treatment Response Procedure Procedure Tolerated Well Tolerated Well Pain Scale: 0-10 Numeric Is Patient Pain Free? Yes Yes - Visit Discharge Discharge Condition Stable Stable Ambulatory Status Wheelchair Wheelchair Transportation Private Auto Private Auto Facility Type Home Health Telephoned (if yes, spoke with:) Yes 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 without evidence of necrosis (2) Pain of amputation stump of left lower extremity: CODE(S): T87.89 - Other complications of amputation stump; M79.605 - Pain in left leg (3) Personal history of Methicillin resistant Staphylococcus aureus infection: CODE(S): Z86.14 - Personal history of Methicillin resistant Staphylococcus aureus infection (4) Diabetes: CODE(S): E11.9 - Type 2 diabetes mellitus without complications (5) History of below-knee amputation of left lower extremity: CODE(S): Z89.512 - Acquired absence of left leg below knee (6) Smoker: CODE(S): F17.200 - Nicotine dependence, unspecified, uncomplicated PLAN: Plan Wound care - Collagen hydrogel covered with [place] SAP every other day to left BKA stump ulcer. He has completed 10 applications of Epi-fix. Place lotion or Aquaphor to periwound to help prevent maceration. Compression - AMIE wrap or non-silicone stump stock unloader. He is waiting to hear from Alere about his new stump stock unloader. Pathology from 08/22/22 was negative for acute osteomyelitis. Wound culture obtained 04/07/23 which was positive for MRSE and Anaerobic cocci. He was treated with Levofloxacin and Metronidazole. Encouraged patient to stop smoking as it may have deleterious effects on wound healing. Follow up in 2 weeks. From a previous note from Dr. Plata: Discussed with the patient that an operative debridement is necessary since scar tissue over the bone inferiorly is not sustainable in a prosthesis. Coverage over the bone with soft tissue from an advancement flap would provide a cushion for the prosthesis. The surrounding tissue and posterior myocutaneous flap, after debridement of scar tissue, may be able to cover the bone. This is the ideal situation. May have to shorten the bone a little bit in order to make this happen. I will be conservative with the bone excision because if the stump ends up being too short, it would be problematic with fitting of the prosthesis. In that scenario, revision to an AKA would be necessary and then proceed with therapy with an AKA prosthesis. Patient voices understanding. Right now the length of the tibial from the tibial tubercle is 11 cm. The range is 10-12 cm. So I can shorten the bone 1 cm and still be in range to allow closure with minimal tension. Surgery would be done under general anesthesia with a surgical observation overnight stay in the hospital. Patient was informed of the risks and complications of the procedure including alternatives to surgery. These were discussed with the patient personally. Patient voices understanding and initially wished to proceed. Initially he wanted to hold off on the surgery. Now he has changed his mind and wants to proceed with the surgery. At the time of surgery, he will need a Prealbumin checked. His last one in the chart was 9.9 on 11/07/20. Would like to see his nutritional status maximized before proceeding with secondary wound closure with a posterior myocutaneous advancement flap. He also needs a HgbA1c. For the elective procedure involving a posterior myocutaneous advancement flap, the HgbA1c needs to be less than 8. Prior before surgery, more wound cultures are necessary. A positive culture will necessitate antibiotic therapy.
== END 2023-04-23 23:59 | disposition home or self-care (01) ==
LOC: WC 11:00
PROVIDERS: PCP Family Medicine; Referring Provider Family Medicine; Visit Provider Nurse Practitioner Family
DX: L97.926 Non-pressure chronic ulcer of unspecified part of left lower leg with bone involvement without evidence of necrosis (principal); Z89.512 Acquired absence of left leg below knee; T87.89 Other complications of amputation stump; E11.9 Type 2 diabetes mellitus without complications; Z99.3 Dependence on wheelchair; Z86.14 Personal history of Methicillin resistant Staphylococcus aureus infection; F17.200 Nicotine dependence, unspecified, uncomplicated
CPT/HCPCS: 11043; 87070; 87075; 87077; 87186; 87205

== ENCOUNTER 2023-05-05 11:16 | Outpatient (RCR) | payer MEDICARE, MEDICAID, SELFPAY ==
[2023-04-24 00:38] VITALS: BP 137/84; PULSE 68; RESP 18; TEMP 34.9
[2023-05-05 11:04] VITALS: BP 141/78; PULSE 68; RESP 20; TEMP 36.6
--- NOTE | 2023-05-05 11:28 | PCM.WC.PN ---
History of Present Illness Date of Service: 05/05/23 Chief Complaint: Ulcer on left BKA after I&D of a diabetic abscess/hematoma on 11/06/20 History of Wound: Surgery on 11/06/20 - Surgical preparation left below knee amputation stump with incision and drainage and excisional debridement with partial ostectomy tibia for osteomyelitis and evacuation hematoma for draining diabetic ulcer abscess. (He had his Left BKA on 04/17/20). Operative tissue and bone cultures were negative. Wound cultures from 11/02/20 positive for MSSA, Enterobacter cloacae complex, and Corynebacterium amycolatum. At his last visit on 08/22/22 bony debridement was done to the stump because there was some bone exposed. Pathology was negative for acute osteomyelitis. Prealbumin 9.9 on 11/07/20. Encourage nutritional supplementation with protein to help the healing process. Patient has diabetes mellitus. His HgbA1c from 11/04/20 was 5.6. For elective surgeries, the HgbA1c needs to be less than 8. He was evaluated by Dr. Boston on 12/06/21 for an operative debridement and possible osteomyelitis. Surgery with Dr. Boston on 12/25/21 for Debridement left lower extremity amputation stump skin, subcutaneous tissue, fascia, bone. Bone culture 12/25/21 - Staphylococcus aureus. Pathology of bone showed dense fibroconnective tissue with reactive changes and foreign body giant cell reaction. Pieces of bone with reactive changes. Wound culture from 09/17/21 showed no growth. Wound culture from 07/09/21 positive for Staphylococcus aureus and Streptococcus agalactiae (B). He was started on Augmentin and a Probiotic. Xray obtained on 10/01/21 of his left BKA stump because of his non healing ulcer. The xray showed bony abnormalities along the lateral aspect of the amputation site of the proximal tibia. Consider further evaluation to exclude osteomyelitis. He obtained this xray at [facility]. MRI obtained 10/31/21, at [facility], of his left BKA which showed Bone edema with contrast enhancement of the tibia consistent with osteomyelitis. Small fluid collection at the distal aspect of the amputated tibia suggestive of small abscess. Wound culture from 06/24/22 was positive for Staphylococcus aureus. He was treated with Augmentin. Wound culture obtained 04/07/23 which was positive for MRSE and Anaerobic cocci. He was treated with Levofloxacin and Metronidazole. He has finished the Metronidazole and is finishing the Levofloxacin. He has has completed ten applications of Theraskin which did help decrease his ulcer size. 02/25/22-Unroofed the undermining from 9-3 o'clock to make wound care easier. Wound care - He has had 10 applications of Theraskin. Since he has had an operative debridement, he has had 10 applications of Epifix which he completed 04/08/22. Wound care will be moistened Garima topped with adaptic and covered with gauze daily after washing with soap and water. He is wearing a stump gerontological nurse practitioner for compression. Today he denies any fever. He states his appetite is good. Progress of Wound: Healed. Objective Data Objective Data Vital Signs: Vital Signs Temp Pulse Resp BP 97.8 F 68 20 H 141/78 H 05/05/23 11:04 05/05/23 11:04 05/05/23 11:04 05/05/23 11:04 Prealbumin from 11/07/20 was 9.9. Encourage nutritional supplementation with protein to help the healing process. Lab / Micro Data Attestation: I reviewed the patient's lab results. Lab results narrative: Patient has diabetes mellitus.? His HgbA1c from 11/04/20 was 5.6.? For elective surgeries, the HgbA1c needs to be less than 8. Charges/Coding Visit Charges Office Visits / Consults: 42882 OV L3 Est 20min (ICD-10 - L97.926, T87.89, E11.622, Z86.14, E11.9, Z89.512, F17.200) Physical Exam Narrative General - Alert and Oriented HEENT - PERRL. EOMI. Neck - Supple and nontender. Lungs - Clear to auscultation. Heart - Regular rate and rhythm. Abdomen - Soft and nondistended. Extremities - Left BKA stump ulcer has healed. Neuro - CN II-XII grossly intact. Psych - Normal mood and affect. Debridement Note Debridement Note Wound debrided: #3 Left BKA stump. Laterality: Left Wound Grade/Stage: 4 Instrument Used: - No debridement was completed: No debridement was completed today (The left BKA stump ulcer has healed.) Post-Debridement Measurements and Additional Note: Post-Debridement Measurements/Treatment WC - Nurse 1 - General Ulcer Assessment Start: 05/05/23 11:03 Freq: Status: Active Protocol: ARLETH Activity Type Activity Date Activity User E-sign Co-sign Detail Recorded Client Recorded Date Recorded By Document 05/05/23 11:04 DL Desktop 05/05/23 11:06 DL 05/05/23 11:04 WC - Today's Visit Information Type of service Follow-up Visit (Physician/REPAIRER PUMP ) Arrival Mode Wheelchair Transfer Assistance None Patient Identification Verified (Name & Yes ) Patient Requires Transmission-Based No Precautions Finger Stick Blood Sugar(mg/dl) (if 118 indicated): Blood Sugar Stated by Patient Vital Signs Temperature (97.8 F-99.1 F) 97.8 F Temperature Source Temporal Pulse Rate (60-100) 68 Pulse Location Monitor Respiratory Rate (12-18) 20 H Respiratory rate source Observation Blood Pressure (90/60-120/80) 141/78 H Blood Pressure Mean (mm Hg) 99 Source Monitor History Since Last Visit- (Skip if this is Patient's initial visit) Have you changed medications since your No last visit? Any new allergies or adverse reactions No Had a fall/change in ADL's that may No increase risk of falls Signs or symptoms of abuse and/or No neglect since last visit Have you been in the hospital since your No last visit? Has dressing in place as prescribed Yes Has compression in place as prescribed Yes Has offloadiing in place as prescribed Yes Experienced any changes in pain level or No management Pain Scale: 0-10 Numeric Is Patient Pain Free? Yes - Nurse 1 - General Ulcer Measurement Start: 05/05/23 11:03 Freq: Status: Active Protocol: Activity Type Activity Date Activity User E-sign Co-sign Detail Recorded Client Recorded Date Recorded By Document 05/05/23 11:04 DL Desktop 05/05/23 11:06 DL 05/05/23 11:04 Wound Center Nurse 1 #3 L Stump/Post op -Current Size (cm) - Length 0.1 -Current Size (cm) - Width 0.1 -Current Size (cm) - Depth 0.1 -Total Square Cm 0.01 -Photo Taken Yes -Exudate Amt None Present -Wound Margin Indistinct, Non -Visible -Granulation Amt Large (67-100%) -Granulation Quality [place] -Necrosis Amt None Present (0 %) -Structure Exposed N/A -Texture (Yudy-wound Skin Appearance) Scarring -Moisture (Yudy-wound Skin Appearance) No Abnormality -Color (Yudy-wound Skin Appearance) No Abnormality -Temperature (Yudy-wound Skin No Abnormality Appearance) (Pt Warm) -Tenderness on Palpation (Yudy-wound No Skin Appearance) -Ulcer Cleansing Rinsed/ Irrigated with Saline -Foul Odor after Cleansing No -Anesthetic Used 5% Lidocaine Gel - Nurse 2 - General Ulcer CM Notes Start: 05/05/23 11:03 Freq: Status: Active Protocol: Activity Type Activity Date Activity User E-sign Co-sign Detail Recorded Client Recorded Date Recorded By Document 05/05/23 11:19 Laptop 05/05/23 11:20 05/05/23 11:19 Wound Center Nurse 2 -Correct Patient No -Correct Side, Site, Position No -Correct Procedure No -Procedure Performed No -Post Debridement (cm) - Length 0 -Post Debridement (cm) - Width 0 -Post Debridement (cm) - Depth 0 -Total Square (Post) (cm) 0 -Area of Debridement (cm) - Length 0 -Area of Debridement (cm) - Width 0 -Total Square (Area) (cm) 0 -Wound/Ulcer Outcome Healed- Epithelialized Pain Scale: 0-10 Numeric Is Patient Pain Free? Yes - Nurse 3 - General Ulcer D/C NN Start: 05/05/23 11:03 Freq: Status: Active Protocol: Activity Type Activity Date Activity User E-sign Co-sign Detail Recorded Client Recorded Date Recorded By Document 05/05/23 11:20 Laptop 05/05/23 11:21 05/05/23 11:20 Is Patient Pain Free? Yes - Visit Discharge Discharge Condition Stable Ambulatory Status Wheelchair Transportation Private Auto Medication Reconcilliation completed & No provided to patient/care provider Clinical Summary of Care Provided No Notes: Patient will follow-up with [facility]. 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 without evidence of necrosis (2) Pain of amputation stump of left lower extremity: CODE(S): T87.89 - Other complications of amputation stump; M79.605 - Pain in left leg (3) Diabetes mellitus with ulcer of lower extremity: CODE(S): E11.622 - Type 2 diabetes mellitus with other skin ulcer; L97.909 - Non-pressure chronic ulcer of unspecified part of unspecified lower leg with unspecified severity (4) Personal history of Methicillin resistant Staphylococcus aureus infection: CODE(S): Z86.14 - Personal history of Methicillin resistant Staphylococcus aureus infection (5) DM type 2, goal HbA1c < 7%: CODE(S): E11.9 - Type 2 diabetes mellitus without complications (6) History of below-knee amputation of left lower extremity: CODE(S): Z89.512 - Acquired absence of left leg below knee (7) Smoker: CODE(S): F17.200 - Nicotine dependence, unspecified, uncomplicated PLAN: Plan Wound care - He was using Collagen hydrogel. The left BKA stump ulcer has healed. Can stop the Collagen Hydrogel. He had completed 10 applications of Epi-fix. Massage the stump scar with skin lotion daily to help soften up the scar. The stump gerontological nurse practitioner and prosthesis will also help with scar maturation as well. Compression - Continue the stump gerontological nurse practitioner. He has appointment with [employer] about revising his prosthesis. Pathology from 08/22/22 was negative for acute osteomyelitis. Wound culture obtained 04/07/23 which was positive for MRSE and Anaerobic cocci. He was treated with Levofloxacin and Metronidazole. He has finished the Metronidazole and is finishing the Levofloxacin. Prealbumin from 11/07/20 was 9.9. Encourage nutritional supplementation with protein to help the healing process. Patient has diabetes mellitus. His HgbA1c from 11/04/20 was 5.6. For elective surgeries, the HgbA1c needs to be less than 8. Follow up on an as needed basis. Encouraged patient to stop smoking as it may have deleterious effects on wound healing.
--- NOTE | 2023-05-08 08:48 | WC ---
05.05.23 LT STUMP ULCER
--- NOTE | 2023-05-13 15:29 | PCM.PN.BLA ---
Progress Note Addendum to Wound Center Visit on 05/05/23. It is OK for the patient, Eugene Rdz, to get fitted for a prosthesis for his left BKA stump.
== END 2023-05-05 15:36 | disposition home or self-care (01) ==
LOC: WC 11:16
PROVIDERS: PCP Family Medicine; Referring Provider Family Medicine; Visit Provider Nurse Practitioner Family
DX: Z09 Encounter for follow-up examination after completed treatment for conditions other than malignant neoplasm (principal); Z89.512 Acquired absence of left leg below knee; E11.9 Type 2 diabetes mellitus without complications; Z86.14 Personal history of Methicillin resistant Staphylococcus aureus infection; F17.200 Nicotine dependence, unspecified, uncomplicated
CPT/HCPCS: 99213; G0463